=== PATIENT | female | born 1955 | race Caucasian/White ===

== ENCOUNTER → 2016-12-12 | Outpatient (CLI) | payer BC ==
--- NOTE | 2016-12-12 14:21 | US ---
EXAMINATION TYPE: US venous doppler duplex LE LT DATE OF EXAM: 12/12/2016 1:28 PM COMPARISON: NONE CLINICAL HISTORY: 61-year-old female I89.0 Lymphedema, not elsewhere classified. Left leg pain, patie nt on Plavix. Patient states having a DVT at age 17 during in left groin SIDE PERFORMED: Left TECHNIQUE: The lower extremity deep venous system is examined utilizing real time linear array sonog macie with graded compression, doppler sonography and color-flow sonography. FINDINGS: VESSELS IMAGED: External Iliac Vein (EIV) Common Femoral Vein Deep Femoral Vein Greater Saphenous Vein * Femoral Vein Popliteal Vein Small Saphenous Vein * Proximal Calf Veins (* superficial vessels) Left Leg: Appears negative for DVT IMPRESSION: No evidence for DVT within the left lower extremity imaged from the groin to the upper calf.
== END | disposition home or self-care (01) ==
LOC: RADUSWWP 12:28
PROVIDERS: ATTEND Family Medicine
DX: I89.0 Lymphedema, not elsewhere classified (principal)

== ENCOUNTER → 2019-07-14 | Outpatient (CLI) | payer MEDICARE, BC ==
[2019-07-14 14:42] LABS: Anisocytosis Slight; Basophils % (A) 0 %; Eosinophils # (A) 0.3 k/uL (0-0.7); Eosinophils % (A) 4 %; HCT 31.9 % (34.0-46.0); HGB 10.1 gm/dL (11.4-16.0); Hypochromasia Moderate; Lymphocytes # (A) 1.6 k/uL (1.0-4.8); Lymphocytes % (A) 23 %; MCH 26.8 pg (25.0-35.0); MCHC 31.7 g/dL (31.0-37.0); MCV 84.3 fL (80.0-100.0); Mean Platelet Volume 8.3; Monocytes # (A) 0.3 k/uL (0-1.0); Monocytes % (A) 5 %; Neutrophils # (A) 4.6 k/uL (1.3-7.7); Neutrophils % (A) 66 %; Platelet Count 195 k/uL (150-450); RBC 3.78 m/uL (3.80-5.40); RDW 16.2 % (11.5-15.5); WBC 6.9 k/uL (3.8-10.6)
[2019-07-14 14:44] LABS: Appearance,Urine Clear (Clear); Bilirubin,Urine Negative (Negative); Blood,Urine Negative (Negative); Color,Urine Light Yellow; Glucose,Urine (UA) Negative (Negative); Ketones,Urine Negative (Negative); Leukocyte Esterase,Urine Negative (Negative); Nitrite,Urine Negative (Negative); PH, Urine 6.5 (5.0-8.0); Protein,Urine Negative (Negative); Specific Gravity,Urine 1.004 (1.001-1.035); Urobilinogen,Urine <2.0 mg/dL (<2.0)
[2019-07-14 15:52] LABS: Erythrocyte Sedimentation Rate 48 mm/hr (0-20)
[2019-07-14 18:54] LABS: Albumin 4.2 g/dL (3.80-4.90); Albumin/Globulin Ratio 1.56 (1.60-3.17); Anion Gap 3.6 mmol/L (4.00-12.00); Calcium 9.1 mg/dL (8.7-10.3); Carbon Dioxide 32.4 mmol/L (21.6-31.8); Chol/HDL Ratio 3.47; Globulin 2.7 g/dL (1.6-3.3); LDL Cholesterol,Calculated 142.8 mg/dL (0.0-131.0); Non-African American GFR(CKD) 52.6 (60.0-200.0); Potassium 4.9 mmol/L (3.5-5.5); Total Bilirubin 0.2 mg/dL (0.2-1.2); Total Protein 6.9 g/dL (6.2-8.2); VLDL Calculation 42.2 mg/dL (5.00-40.00)
[2019-07-14 19:10] LABS: T4, Free (Free Thyroxine) 0.7 ng/dL (0.80-1.80)
== END | disposition home or self-care (01) ==
LOC: LABWHC1 13:50
PROVIDERS: ATTEND Family Medicine
DX: I10 Essential (primary) hypertension (principal); E78.2 Mixed hyperlipidemia; Z51.81 Encounter for therapeutic drug level monitoring
CPT/HCPCS: 36415; 80053; 80061; 81003; 82550; 84439; 84443; 85025; 85652

== ENCOUNTER → 2019-07-14 | Outpatient (CLI) | payer MEDICARE, BC ==
[2019-07-14 12:32] VITALS: BP 134/79; PULSE 68; RESP 16
--- NOTE | 2019-07-16 13:19 | P.PAINCN ---
History of Present Illness - Reason for Consult Consult date: 07/14/19 - History of Present Illness This is a 64-year-old female patient referred by Dr. Lopez with a chief complaint of chronic pain in bilateral lower back, left greater than right, radiating to bilateral anterior legs to just below knees and occasionally to foot on the left side. Pain is worse in low back compared to legs. Pain is rated as 7/10, worse with walking and standing and better with sitting, laying down. She denies numbness and tingling in lower extremities. She does endorse subjective left leg weakness. Her pain in her left leg is also related to left lower extremity lymphedema. She currently takes Percocet for pain control, prescribed by her primary care physician. She denies side effects from medications, and states that the medications are helping her function. She does note that over the last couple of days, she has been in extreme pain and has been unable to walk. She presents in a wheelchair today. Of note, she has a complicated medical history including hypertension, coronary artery disease with cardiac stents currently on Plavix, diabetes, lymphedema left lower extremity, factor V Leiden deficiency and history of DVTs, Charcot syndrome of left foot. She moved from [place] 6 months ago. She underwent some pain procedures in [place], possibly a lumbar epidural steroid injections with benefit, and SI joint injections with no significant benefit. Patient denies bowel/bladder incontinence, or any other signs or symptoms of cauda equina syndrome. There are no signs of acute intoxication, and no indications of medication diversion or overuse. In addition to above, 13-point review of systems is also negative for chest pain, shortness of breath, changes in vision, changes in hearing, new onset weakness, abdominal pain, diarrhea, extreme fatigue, malaise, fever, skin changes, homicidal or suicidal ideation, or bowel or bladder incontinence. Past Medical History Past Medical History: Blood Disorder, Diabetes Mellitus, Deep Vein Thrombosis (DVT), Hypertension, Myocardial Infarction (NE), Osteoarthritis (OA), Thyroid Disorder Additional Past Medical History / Comment(s): hand tremors, NE x4, cold sx., DVT left leg-first one @age of 17, has had them w/all subsequent surgeries, lymphedema left leg, charcot syndrome left foot, bulging discs, "leaking disc", Factor 5 Leiden Last Myocardial Infarction Date:: 2011 History of Any Multi-Drug Resistant Organisms: None Reported Past Surgical History: Cholecystectomy, Heart Catheterization With Stent, Hernia Repair, Hysterectomy Additional Past Surgical History / Comment(s): salpingectomy, oophorectomy separately from hyst., prior epidural procedures, left foot surg. Bilateral cataract surgery Past Anesthesia/Blood Transfusion Reactions: No Reported Reaction Date of Last Stent Placement:: 2011 Past Psychological History: Anxiety, Depression Smoking Status: Former smoker Past Alcohol Use History: None Reported Additional Past Alcohol Use History / Comment(s): quit smoking 2011, smoked 40 yrs. 1ppd Past Drug Use History: None Reported Medications and Allergies Home Medications Medication Instructions Recorded Confirmed Type ALPRAZolam [Xanax] 2 mg PO TID 07/07/19 07/14/19 History ARIPiprazole [Abilify] 5 mg PO DAILY 07/07/19 07/14/19 History Clopidogrel [Plavix] 75 mg PO DAILY 07/07/19 07/14/19 History DULoxetine HCL [Cymbalta] 60 mg PO BID 07/07/19 07/14/19 History Furosemide [Lasix] 40 mg PO DAILY 07/07/19 07/14/19 History INSULIN LISPRO (HumaLOG) [HumaLOG] See Protocol SQ ACHS 07/07/19 07/14/19 History Insulin Glargine [Lantus] 44 unit SQ HS 07/07/19 07/14/19 History Insulin Glargine [Lantus] 50 unit SQ QAM 07/07/19 07/14/19 History Levocetirizine Dihydrochloride 5 mg PO HS 07/07/19 07/14/19 History [Xyzal] Levothyroxine Sodium [Synthroid] 200 mcg PO DAILY 07/07/19 07/14/19 History Lisinopril [Zestril] 5 mg PO DAILY 07/07/19 07/14/19 History Metoprolol Tartrate [Lopressor] 25 mg PO BID 07/07/19 07/14/19 History Montelukast [Singulair] 10 mg PO DAILY 07/07/19 07/14/19 History Nitroglycerin Sl Tabs [Nitrostat] 0.4 mg SUBLINGUAL Q5M PRN 07/07/19 07/14/19 History Potassium Chloride ER [K-Dur 10] 10 meq PO DAILY 07/07/19 07/14/19 History Primidone [Mysoline] 50 mg PO TID 07/07/19 07/14/19 History oxyCODONE-APAP 10-325MG [Percocet 1 tab PO TID 07/07/19 07/14/19 History 10-325 mg] traZODone HCL [Desyrel] 200 mg PO HS 07/07/19 07/14/19 History Allergies Allergy/AdvReac Type Severity Reaction Status Date / Time azithromycin Allergy Unknown Verified 07/07/19 14:26 Iodinated Contrast Media Allergy Rash/Hives Verified 07/07/19 14:26 naproxen [From Naprosyn] AdvReac Nausea & Verified 07/07/19 14:26 Vomiting Physical Exam Physical exam: Vital Signs: Reviewed in EMR GENERAL: obese, seated in wheelchair, in no acute distress PSYCH: Mood and affect is appropriate. Awake, alert, and oriented SKIN: Skin color, texture, turgor normal, no rashes or lesions HEENT: Normocephalic, atraumatic. EOM intact CV: Bilateral pedal edema, 1+ pitting on the right side, nonpitting on the left side RESP: Respirations are unlabored, no audible wheezing GI: Abdomen non-distended MUSCULOSKELETAL: lower extremity strength is 4/5 throughout left side, 5/5 on the right. No atrophy or tone abnormalities are noted. Significant lymphedema noted in left lower extremity. Skin is dry and scaly on left lower extremity. Lumbar spine: Straight leg raising in the sitting position is positive bilaterally for radicular pain. Tenderness to palpation over the lumbar spine and paraspinous muscles. NEUR: Cranial nerves are grossly intact. Results Results: Imaging: MRI lumbar spine done at [facility] on 07/01/2019 shows moderate central canal stenosis and mild bilateral neuroforaminal stenosis at L4-5. At L5-S1 there is left greater than right facet hypertrophy and mild left-sided neuroforaminal narrowing. Assessment and Plan Assessment: Assessment: 1. Lumbar radiculopathy 2. Lumbar spondylosis 3. Lumbar degenerative disc disease 4. obesity 5. Chronic use of high-risk medications including opioids Plan: Plan: 1. Explanation: We discussed performing an epidural steroid injection at length. Of note, patient is on Plavix and this would have to be held for 5-7 days before the procedure, with consultation with her primary care physician and cook helper pastry. She has not yet seen a cook helper pastry in [place], and is scheduled to see Dr. Ontiveros soon. 2. Procedures: We will schedule L4-5 lumbar epidural steroid injection, left paramedian approach. Patient has had significant benefit from prior lumbar epidural steroid injections done over 6 months ago. Of note, her Plavix will have to be held for this procedure 3. Consultations: None 4. Investigations: MRI lumbar spine reviewed 5. Medications: Managed by PCP, would not recommend any changes Disposition: For above-mentioned procedure after cardiology clearance PQRS Measure Charge Sheet Measure #130: Documentation of Current Meds in Medical Chart: Patient's medic ations documented in chart Measure #226: Tobacco Use: Screen & Cessation Intervention: Pt not a tobacco user Measure #47: Advance Care Plan: Advance care planning discussed & documented, pt chose/unable to give Measure #412: Opioid Treatment Agreement: No documentation of signed opioid treatment agreement Measure #317: Preventitive Care & Scrn High Bld Press & F/U: Normal blood pressure, f/u not required Measure #128: Body Mass Index (BMI) Screening & Follow-up: BMI documented ABOVE normal parameters - f/u documented Measure #131: Pain Assessment & Follow-up: Pain positive & plan documented, Follow-up scheduled Measure #431: Unhealthy Alcohol Use Preventative Care & Scrn: Patient not identified as an unhealthy alcohol user PQRS Narrative: Smoking Status Former smoker Blood Pressure 134/79 Pain Intensity [Lower Back] 7 Scale Used Numeric (1 - 10) Hx Alcohol Use (MH) No Home Medications: Ambulatory Orders ALPRAZolam [Xanax] 2 mg PO TID 07/07/19 ARIPiprazole [Abilify] 5 mg PO DAILY 07/07/19 Clopidogrel [Plavix] 75 mg PO DAILY 07/07/19 DULoxetine HCL [Cymbalta] 60 mg PO BID 07/07/19 Furosemide [Lasix] 40 mg PO DAILY 07/07/19 INSULIN LISPRO (HumaLOG) [HumaLOG] See Protocol SQ ACHS 07/07/19 Insulin Glargine [Lantus] 44 unit SQ HS 07/07/19 Insulin Glargine [Lantus] 50 unit SQ QAM 07/07/19 Levocetirizine Dihydrochloride [Xyzal] 5 mg PO HS 07/07/19 Levothyroxine Sodium [Synthroid] 200 mcg PO DAILY 07/07/19 Lisinopril [Zestril] 5 mg PO DAILY 07/07/19 Metoprolol Tartrate [Lopressor] 25 mg PO BID 07/07/19 Montelukast [Singulair] 10 mg PO DAILY 07/07/19 Nitroglycerin Sl Tabs [Nitrostat] 0.4 mg SUBLINGUAL Q5M PRN 07/07/19 Potassium Chloride ER [K-Dur 10] 10 meq PO DAILY 07/07/19 Primidone [Mysoline] 50 mg PO TID 07/07/19 oxyCODONE-APAP 10-325MG [Percocet 10-325 mg] 1 tab PO TID 07/07/19 traZODone HCL [Desyrel] 200 mg PO HS 07/07/19
== END | disposition home or self-care (01) ==
LOC: PNWHC3 11:27
PROVIDERS: ATTEND Anesthesiology
DX: M51.16 Intervertebral disc disorders with radiculopathy, lumbar region (principal); M47.26 Other spondylosis with radiculopathy, lumbar region; E66.9 Obesity, unspecified; E11.9 Type 2 diabetes mellitus without complications; I10 Essential (primary) hypertension; M19.90 Unspecified osteoarthritis, unspecified site; Z68.33 Body mass index [BMI] 33.0-33.9, adult; Z87.891 Personal history of nicotine dependence; Z79.891 Long term (current) use of opiate analgesic; Z79.02 Long term (current) use of antithrombotics/antiplatelets; Z79.4 Long term (current) use of insulin; Z79.890 Hormone replacement therapy; Z79.899 Other long term (current) drug therapy; Z88.1 Allergy status to other antibiotic agents; Z88.6 Allergy status to analgesic agent; Z91.041 Radiographic dye allergy status
CPT/HCPCS: 99211

== ENCOUNTER → 2019-07-17 | Outpatient (CLI) | payer MEDICARE, BC ==
--- NOTE | 2019-07-17 15:27 | XR ---
EXAMINATION TYPE: XR chest 2V DATE OF EXAM: 07/17/2019 COMPARISON: Prior chest x-ray 05/12/2013 HISTORY: Edema, congestive heart failure TECHNIQUE: Frontal and lateral views of the chest are obtained. FINDINGS: The heart is enlarged. Central vascularity is prominent. No evident airspace disease, pneu mothorax, or pleural effusion. Bones are unchanged. IMPRESSION: Cardiomegaly with prominent central vascularity as described, no overt failure.
== END | disposition home or self-care (01) ==
LOC: RADXRMAIN 12:25
PROVIDERS: ATTEND Internal Medicine Cardiovascular Disease
DX: I51.7 Cardiomegaly (principal); I50.9 Heart failure, unspecified; R60.9 Edema, unspecified; R06.02 Shortness of breath
CPT/HCPCS: 36415; 71046; 83880

== ENCOUNTER 2019-07-24 08:12 | Day surgery (SDC) | payer MEDICARE, BC ==
[2019-07-23 10:02] VITALS: BMI 43.2
[~2019-07-24 08:12] MED LIST: LACTATED RINGERS 1,000 ML IV SCH
[2019-07-24 08:36] VITALS: TEMP 97.8
[2019-07-24 08:49] LABS: Glucose,Whole Blood 163 mg/dL (75-99)
--- NOTE | 2019-07-24 09:21 | P.PCN ---
Date of Procedure: 07/24/19 Procedure(s) Performed: PREOPERATIVE DIAGNOSIS: 1- Lumbar radiculopathy, Lumbar Degenerative Disc Diseases 2-Lumbar spondylosis with Facet arthropathy without myelopathy POSTOPERATIVE DIAGNOSIS: 1-Lumber Degenerative Disc Diseases 2-Lumbar spondylosis with Facet arthropathy without myelopathy PROCEDURE 1. Lumbar epidural steroid injection under fluoroscopic guidance at the L4-5 level using a left paramedian approach ANESTHESIA: Local with 1% lidocaine 3 ml, no IV sedation was used Fluoroscopy was used for the procedure and images were saved in the radiology portion of the chart. EBL: Minimal PROCEDURE INDICATION: The patient with low back pain and radiculitis symptoms unresponsive to conservative treatment. Fluoroscopy was used to optimize visualization of the needle placement and to maximize safety. PROCEDURE DESCRIPTION / TECHNIQUE: The patient was seen and identified in the preoperative area. Risks, benefits, complications including but not limited to infections ,bleeding ,allergic reaction to the medications ,nerve damage and incomplete pain relief , and alternatives were discussed with the patient. The patient agreed to proceed with the procedure and signed the consent. IV was started, and vital signs were stable. Patient was taken to the OR and time out was completed. The patient was placed in the prone position on procedure table and a pillow was placed under the abdomen to reduce lumbar lordosis. The lumbosacral area was prepped and draped in the usual sterile fashion. Vitals were closely monitored during the procedure. Using anterior-posterior fluoroscopy, the L4-5 interlaminar space was identified and the skin over this site was marked and then infiltrated with 1% lidocaine subcutaneously. Subsequently, an 18-gauge 5" Tuohy epidural needle was inserted and advanced toward the epidural space using the loss of resistance technique and guided by AP and lateral/ oblique fluoroscopy. TThen, after negative aspiration for blood and CSF and in the absence of paresthesias, a 5 ml mixture containing 10 mg of dexamethasone , 3 ml of preservative free Normal Saline, and 1 ml of preservative free lidocaine 1% solution was injected. Needle was withdrawn intact, skin was cleansed, and bandages were applied. of note, contrast was not used for the procedure as the patient is ALLERGIC to contrast dye. COMPLICATIONS: None DISPOSITION / PLANS: The patient was placed in a supine position and transferred to the recovery area in a stable condition for observation. There was no evidence of lower extremity motor or sensory deficit after the procedure. Patient was discharged from the recovery room after meeting discharge criteria. Home discharge instructions were given to the patient by the staff. The patient will schedule a repeat procedure in 4 weeks.
[2019-07-24 09:29] VITALS: RESP 16
[2019-07-24 09:40] VITALS: BP 130/86; PULSE 72
--- NOTE | 2019-07-24 09:50 | FL ---
EXAMINATION TYPE: FL guided pain mgmt statistic DATE OF EXAM: 07/24/2019 CLINICAL HISTORY: Low back pain. TECHNIQUE: Fluoroscopy. COMPARISON: None. FINDINGS: Fluoroscopic guidance was provided during pain relief procedure performed by Dr. Xiao . A total of 3 seconds of fluoroscopic time was utilized during the procedure and two spot images are acq uired. Images acquired shows needle localization at posterior L4-L5 level. IMPRESSION: As Above.
== END 2019-07-24 09:50 | disposition home or self-care (01) ==
LOC: ORPAIN 08:12
PROVIDERS: ATTEND Anesthesiology
DX: G89.29 Other chronic pain (principal); M51.16 Intervertebral disc disorders with radiculopathy, lumbar region; M47.26 Other spondylosis with radiculopathy, lumbar region; Z91.041 Radiographic dye allergy status; Z88.1 Allergy status to other antibiotic agents; Z88.6 Allergy status to analgesic agent; Z79.02 Long term (current) use of antithrombotics/antiplatelets; E11.9 Type 2 diabetes mellitus without complications; Z86.718 Personal history of other venous thrombosis and embolism; I10 Essential (primary) hypertension; I25.2 Old myocardial infarction; M19.90 Unspecified osteoarthritis, unspecified site; F41.9 Anxiety disorder, unspecified; F32.9 Major depressive disorder, single episode, unspecified; E66.9 Obesity, unspecified; E07.9 Disorder of thyroid, unspecified; D68.51 Activated protein C resistance; Z90.49 Acquired absence of other specified parts of digestive tract; Z95.5 Presence of coronary angioplasty implant and graft; Z90.710 Acquired absence of both cervix and uterus; Z98.41 Cataract extraction status, right eye; Z98.42 Cataract extraction status, left eye; Z90.79 Acquired absence of other genital organ(s); Z79.4 Long term (current) use of insulin; Z87.891 Personal history of nicotine dependence; Z79.890 Hormone replacement therapy; Z79.899 Other long term (current) drug therapy; Z79.891 Long term (current) use of opiate analgesic; Z68.41 Body mass index [BMI] 40.0-44.9, adult
CPT/HCPCS: 62323; J1100

== ENCOUNTER 2019-08-19 07:24 | Day surgery (SDC) | payer MEDICARE, BC ==
[2019-08-14 15:25] VITALS: BMI 39.9
[~2019-08-19 07:24] MED LIST changes: +IOPAMIDOL M200 10 ML VIAL ONE; +MIDAZOLAM 2 MG/2 ML VIAL ONE; +fentaNYL (PF) 50 MCG/ML 2 ML AMP ONE; +methylPREDNISolone ACETATE 40 MG/ML 1 ML VIAL ONE
[2019-08-19 07:54] VITALS: TEMP 98.7
[2019-08-19] MEDS ORDERED: LIDOCAINE 1% 20 ML VIAL (10MG/ML) FOR IV START INTRADERMA ONE (08:10)
[2019-08-19 08:17] LABS: Glucose,Whole Blood 106 mg/dL (75-99)
--- NOTE | 2019-08-19 08:35 | P.PCN ---
Date of Procedure: 08/19/19 Procedure(s) Performed: PREOPERATIVE DIAGNOSIS: 1- Lumbar Degenerative Disc Diseases 2-Lumbar spondylosis with Facet arthropathy without myelopathy. 3-lumbar radiculopathy POSTOPERATIVE DIAGNOSIS: 1-Lumber Degenerative Disc Diseases 2-Lumbar spondylosis with Facet arthropathy without myelopathy. 3-lumbar radiculopathy PROCEDURE 1. Lumbar epidural steroid injection under fluoroscopic guidance at the L4-5 level.(Left paramedian approach ) (Fluoroscopy imaging was available in radiology department) ANESTHESIA: Local with 1% lidocaine 3 ml and , moderate sedation with intravenous Versed 1 mg ,and fentanyle 50 Mcg EBL: Minimal PROCEDURE INDICATION: The patient with low back pain and radiculitis symptoms unresponsive to conservative treatment. Fluoroscopy was used to optimize visualization of the needle placement and to maximize safety. PROCEDURE DESCRIPTION / TECHNIQUE: The patient was seen and identified in the preoperative area. Risks, benefits, complications including but not limited to infections ,bleeding ,allergic reaction to the medications ,nerve damage and not complete pain releife , and alternatives were discussed with the patient. The patient agreed to proceed with the procedure and signed the consent. IV was started, and vital signs were stable. Patient was taken to the OR and time out was completed. The patient was placed in the prone position on procedure table and a pillow was placed under the abdomen to reduce lumbar lordosis. The lumbosacral area was prepped and draped in the usual sterile fashion.ere closely monitored during the procedure. Conscious sedation was used during the procedure to decrease patients anxiety. Vital signs was monitered during the entire procedure. Using anterior-posterior fluoroscopy, the L4-5 interlaminar space was identified and the skin over this site was marked and then infiltrated with 1% lidocaine subcutaneously. Subsequently, a 18-gauge 6 inhes long Tuohy epidural needle was inserted and advanced toward the epidural space using the ``Loss of resistance technique and guided by AP and lateral fluoroscopy, after negative aspiration for blood and CSF and in the absence of paresthesias. Again after negative aspiration, a 6 ml mixture containing 40 mg of Depo-medrol , and 2 ml of preservative free Normal Saline, and 2 ml of preservative free lidocaine 1% solution was injected . Needle was withdrawn intact, skin was cleansed, and bandages were applied. COMPLICATIONS: None DISPOSITION / PLANS: The patient was placed in a supine position and transferred to the recovery area in a stable condition for observation. There was no evidence of lower extremity motor or sensory deficit after the procedure. Patient was discharged from the recovery room after meeting discharge criteria. Home discharge instructions were given to the patient by the staff. The patient was reexamined prior to discharge. The patient will schedule a follow up in the clinic in 2-4 weeks note= Isovue was not injected ,because patient had ALLERGY to IVP dye.
[2019-08-19] MEDS ORDERED: IV FLUID CONTINUATION 850 ML IV ONE (08:45)
[2019-08-19 08:59] VITALS: RESP 18
[2019-08-19 09:00] VITALS: BP 108/69; PULSE 63
--- NOTE | 2019-08-19 11:26 | FL ---
Fluoroscopy HISTORY: Pain 5 seconds fluoroscopy time supplied to the referring clinician. 1 intraoperative C-arm images docume nt the procedure. See dictated report from anesthesia.
== END 2019-08-19 08:45 | disposition home or self-care (01) ==
LOC: ORPAIN 07:24
PROVIDERS: ATTEND Specialist
DX: M51.16 Intervertebral disc disorders with radiculopathy, lumbar region (principal); M47.26 Other spondylosis with radiculopathy, lumbar region; Z88.1 Allergy status to other antibiotic agents; Z91.041 Radiographic dye allergy status; Z91.048 Other nonmedicinal substance allergy status; Z88.6 Allergy status to analgesic agent
CPT/HCPCS: 62323; J2250; J1030; J3010; Q9966

== ENCOUNTER → 2019-09-03 | Outpatient (CLI) | payer MEDICARE, BC ==
[2019-09-03 12:01] VITALS: BP 110/68; PULSE 60; RESP 16
--- NOTE | 2019-09-03 21:03 | P.PAINPG ---
Subjective Progress Note Date: 09/03/19 This is a follow-up visit for this 64 years old female, with a chronic history of severe low back pain she is diagnosed with lumbar spondylosis with lumbar facet arthropathy and lumbar degenerative disc disease, recently we have done lumbar epidural steroid injections 2, patient reported that she had minimal benefit from the epidural steroid injection, she continued to have severe low back pain which is increased with any activity even movement or walking exacerbates her pain, she is able to ambulate a few steps but she has to use a wheelchair when she has to walk more than a few minutes, she denies any fever or night sweats she denies any change in the bowel movements or urination, she continued to use Percocet 10/325 when necessary as prescribed by her primary care Objective - Vital Signs Vital signs: Vital Signs Temp Pulse 60 09/03/19 11:49 Resp 16 09/03/19 11:49 BP 110/68 09/03/19 11:49 Pulse Ox 97 09/03/19 11:49 - Exam Physical Examinations : -Constitutiona : Cooperative , not in acute distress . -HEENT : nech : supple , no Lymphadenopathy , normal thyroid size . : eyes : no ptosis , no icterus, no photophobia . - neurologic : Cranial nerve II to XII intact , no focal neurological deffecit . -psychatric : alert , oriented X 3 , appropriate affect , intact judgment and insight . -Lymphatic : no Lymphadenopathy . - musculoskeltal : Lumber spine moter stegnth lower extremities ,thigh and legs 4/5 Right side , 5/5 Left side deep tendon reflexes : normal Knee Jerk , normal ankle Jerk lumber facet Loading Test =positive Right , positive Left Range of motion of the lumbar spine Flexion 30 degrees, extension 10 degrees strait leg raising test = positive at 30 degree Fabere test= positive Right , and positive LT . Sever tenderness over the Sacroiliac joint on the Right , and Left sides Assessment and Plan Plan: Assessment and plan= chronic low back pain secondary to lumbar degenerative disc disease , lumbar spondylosis with lumbar facet arthropathy . Patient had limited benefit from lumbar epidural steroid injections 2, She will be good candidate to have diagnostic medial branch block lumbar area L3, L4, L5, to target the facet joint at L4-L5 and L5-S1 Patient will continue to use Percocet 10/325 when necessary as prescribed by her primary care , Time with Patient: Less than 30 PQRS Measure Charge Sheet Measure #130: Documentation of Current Meds in Medical Chart: Patient's medications documented in chart Measure #226: Tobacco Use: Screen & Cessation Intervention: Pt not a tobacco user Measure #111: Pneumonia Vaccination: Pneumococcal vaccine administered or previously received Measure #47: Advance Care Plan: Advance care planning discussed & documented, pt chose/unable to give Measure #412: Opioid Treatment Agreement: No documentation of signed opioid mervat atment agreement Measure #408: Opioid Therapy Follow-up Evaluation: Patient had NO f/u eval minimum every 3 months during opioid therapy Measure #317: Preventitive Care & Scrn High Bld Press & F/U: Normal blood pressure, f/u not required Measure #128: Body Mass Index (BMI) Screening & Follow-up: BMI documented ABOVE normal parameters - f/u documented Measure #131: Pain Assessment & Follow-up: Pain positive & plan documented, Follow-up scheduled Measure #431: Unhealthy Alcohol Use Preventative Care & Scrn: Patient not identified as an unhealthy alcohol user PQRS Narrative: Smoking Status Former smoker Blood Pressure 110/68 Pain Intensity [Lower Back] 8 Scale Used Numeric (1 - 10) Hx Alcohol Use (MH) No Home Medications: Ambulatory Orders ALPRAZolam [Xanax] 2 mg PO TID 07/07/19 ARIPiprazole [Abilify] 5 mg PO DAILY 07/07/19 Clopidogrel [Plavix] 75 mg PO DAILY 07/07/19 DULoxetine HCL [Cymbalta] 60 mg PO BID 07/07/19 Furosemide [Lasix] 80 mg PO DAILY 07/07/19 INSULIN LISPRO (HumaLOG) [HumaLOG] See Protocol SQ ACHS 07/07/19 Insulin Glargine [Lantus] 44 unit SQ HS 07/07/19 Insulin Glargine [Lantus] 50 unit SQ QAM 07/07/19 Levocetirizine Dihydrochloride [Xyzal] 5 mg PO HS 07/07/19 Levothyroxine Sodium [Synthroid] 200 mcg PO DAILY 07/07/19 Lisinopril [Zestril] 5 mg PO DAILY 07/07/19 Metoprolol Tartrate [Lopressor] 25 mg PO BID 07/07/19 Montelukast [Singulair] 10 mg PO DAILY 07/07/19 Nitroglycerin Sl Tabs [Nitrostat] 0.4 mg SUBLINGUAL Q5M PRN 07/07/19 Primidone [Mysoline] 50 mg PO TID 07/07/19 oxyCODONE-APAP 10-325MG [Percocet 10-325 mg] 1 tab PO TID PRN 07/07/19 traZODone HCL [Desyrel] 200 mg PO HS 07/07/19 Spironolactone [Aldactone] 12.5 mg PO DAILY 07/23/19 Triamcinolone 0.1% Cream [Kenalog 0.1% Cream] 1 applicatio TOPICAL BID 08/14/19 Controlled Substance Measures - Controlled Substance Measures Is patient prescribed a controlled substance at discharge?: No
== END | disposition home or self-care (01) ==
LOC: PNWHC3 11:38
PROVIDERS: ATTEND Specialist
DX: G89.29 Other chronic pain (principal); M51.36 Other intervertebral disc degeneration, lumbar region; M47.816 Spondylosis without myelopathy or radiculopathy, lumbar region; M46.96 Unspecified inflammatory spondylopathy, lumbar region; Z87.891 Personal history of nicotine dependence; Z79.899 Other long term (current) drug therapy
CPT/HCPCS: 99211

== ENCOUNTER 2019-09-16 07:27 | Day surgery (SDC) | payer MEDICARE, BC ==
[2019-09-15 11:20] VITALS: BMI 25.7
[~2019-09-16 07:27] MED LIST changes: +BUPIVACAINE (PF) 0.5% 30 ML VIAL ONE; -IOPAMIDOL M200 10 ML VIAL ONE; -LACTATED RINGERS 1,000 ML IV SCH; -methylPREDNISolone ACETATE 40 MG/ML 1 ML VIAL ONE
[2019-09-16 07:40] VITALS: TEMP 98.5
[2019-09-16] MEDS ORDERED: LACTATED RINGERS 1,000 ML IV ONE (07:54)
[2019-09-16 07:55] LABS: Glucose,Whole Blood 240 mg/dL (75-99)
[2019-09-16] MEDS ORDERED: LIDOCAINE 1% 20 ML VIAL (10MG/ML) FOR IV START INTRADERMA ONE (07:55)
[2019-09-16 08:58] VITALS: RESP 17
--- NOTE | 2019-09-16 09:01 | P.PCN ---
Date of Procedure: 09/16/19 Surgeon: Afshan Leavitt Pathology: none sent Condition: stable Disposition: PACU Description of Procedure: PREOPERATIVE DIAGNOSIS : 1- Lumbar spondylosis with Facet Arthropathy without myelopathy . 2- Lumber degenerative disc disease POSTOPERATIVE DIAGNOSIS: 1- Lumbar spondylosis with Facet Arthropathy without myelopathy . 2- Lumber degenerative disc disease PROCEDURE: Diagnostic bilateral L3 -4 , L4 -5 , and L5-S1 medial branch block under fluoroscopy ANESTHESIA: Local with 1% lidocaine; IV moderate conscious sedation with Versed 2 mg . EBL: Negligible COMPLICATION: None. PROCEDURE INDICATION: Chronic low back pain secondary to Facet arthropathy unresponsive to conservative treatment. PROCEDURE DESCRIPTION: the patient was seen and identified in the preop holding area , risks and benefits and possible complications of the procedure and alternatives were discussed with the patient, and the patient agreed to proceed with the procedure and signed the consent. IV was started and vital signs monitored during the procedure and fluoroscopy was used to maximize the benefit and accuracy of the needle placement, sedation was given to decrease patient anxiety, patient was taken to the procedure room and placed in prone position vital signs monitored. The patient was brought into the procedure room and placed in prone position. Skin was prepped with Chloraprep and draped in a sterile manner. Lidocaine 1% was used to numb the skin up at the target points that were chosen as follows: at the L5-S1 level which corresponds to the dorsal ramus of L5 the target points were at the superior medial aspect of the sacral ala on each side of the spine on the AP view of fluoroscopy, and for the L3 and L4 medial branches the target points were the connection between the transverse process and the superior to go process of L4 and L5 respectively on the oblique views of fluoroscopy. I used 22-gauge 5 inch Quincke spinal needles for this procedure and after contacting bone at the target points mentioned above I injected 1 mL of Ropivacaine 0.5% PF . Patient tolerated procedure well. At the end of the procedure the needles removed and a bandage applied after the skin was cleaned the cleaning solution. patient was then taken to the recovery room in stable condition and monitored in the recovery room for 20-30 minutes and discharged home in stable condition after discharge criteria met .
[2019-09-16 09:05] VITALS: BP 137/80; PULSE 83
[2019-09-16 09:18] LABS: Glucose,Whole Blood 221 mg/dL (75-99)
[2019-09-16] MEDS ORDERED: IV FLUID CONTINUATION 800 ML IV ONE (09:20)
--- NOTE | 2019-09-16 10:07 | FL ---
EXAMINATION TYPE: FL guided pain mgmt statistic DATE OF EXAM: 09/16/2019 CLINICAL HISTORY: Low back pain. TECHNIQUE: Fluoroscopy. COMPARISON: None. FINDINGS: Fluoroscopic guidance was provided during pain relief procedure performed by Dr. Leavitt . A total of 8 seconds of fluoroscopic time was utilized during the procedure and 4 spot images are a cquired. Images acquired shows needle localization at multiple levels of the lumbar spine. IMPRESSION: As Above.
== END 2019-09-16 09:25 | disposition home or self-care (01) ==
LOC: ORPAIN 07:27
PROVIDERS: ATTEND Anesthesiology
DX: M47.816 Spondylosis without myelopathy or radiculopathy, lumbar region (principal); M51.36 Other intervertebral disc degeneration, lumbar region; E11.9 Type 2 diabetes mellitus without complications; I10 Essential (primary) hypertension; I25.10 Atherosclerotic heart disease of native coronary artery without angina pectoris; E66.01 Morbid (severe) obesity due to excess calories; Z68.41 Body mass index [BMI] 40.0-44.9, adult; Z91.041 Radiographic dye allergy status; Z88.1 Allergy status to other antibiotic agents; Z88.6 Allergy status to analgesic agent; Z91.048 Other nonmedicinal substance allergy status; Z79.4 Long term (current) use of insulin; Z79.02 Long term (current) use of antithrombotics/antiplatelets; Z95.5 Presence of coronary angioplasty implant and graft
CPT/HCPCS: 64493; 64494; 64495; J2250; J3010; 99152

== ENCOUNTER 2019-09-30 07:18 | Day surgery (SDC) | payer MEDICARE, BC ==
[2019-09-26 10:36] VITALS: BMI 37.1
[2019-09-30 07:40] VITALS: TEMP 98.5
[2019-09-30 07:48] LABS: Glucose,Whole Blood 143 mg/dL (75-99)
[2019-09-30] MEDS ORDERED: LACTATED RINGERS 1,000 ML IV ONE (07:48)
[2019-09-30] MEDS ORDERED: LIDOCAINE 1% (10MG/ML) FOR IV START INTRADERMA ONE (07:48)
[2019-09-30] MEDS ORDERED: BUPIVACAINE (PF) 0.5% 30 ML VIAL ONE (07:54)
[2019-09-30] MEDS ORDERED: fentaNYL (PF) 50 MCG/ML 2 ML AMP ONE (07:54)
[2019-09-30] MEDS ORDERED: TRIAMCINOLONE ACETONIDE 40 MG/ML 1 ML VIAL ONE (07:54)
[2019-09-30] MEDS ORDERED: MIDAZOLAM 2 MG/2 ML VIAL ONE (07:54)
[2019-09-30] MEDS ORDERED: LACTATED RINGERS 1,000 ML IV SCH (08:00)
--- NOTE | 2019-09-30 08:12 | P.PCN ---
Date of Procedure: 09/30/19 Anesthesia: MAC Pathology: none sent Condition: stable Disposition: PACU Description of Procedure: PREOPERATIVE DIAGNOSIS : 1- Lumbar spondylosis with Facet Arthropathy without myelopathy . 2- Lumber degenerative disc disease POSTOPERATIVE DIAGNOSIS: 1- Lumbar spondylosis with Facet Arthropathy without myelopathy . 2- Lumber degenerative disc disease PROCEDURE: Diagnostic bilateral L3 -4 , L4 -5 , and L5-S1 medial branch block under fluoroscopy ANESTHESIA: Local with 1% lidocaine; IV moderate conscious sedation with Versed 2 mg and fentanyl 100 mics . EBL: Negligible COMPLICATION: None. PROCEDURE INDICATION: Chronic low back pain secondary to Facet arthropathy unresponsive to conservative treatment. PROCEDURE DESCRIPTION: the patient was seen and identified in the preop holding area , risks and benefits and possible complications of the procedure and alternatives were discussed with the patient, and the patient agreed to proceed with the procedure and signed the consent. IV was started and vital signs monitored during the procedure and fluoroscopy was used to maximize the benefit and accuracy of the needle placement, sedation was given to decrease patient anxiety, patient was taken to the procedure room and placed in prone position vital signs monitored. The patient was brought into the procedure room and placed in prone position. Skin was prepped with Chloraprep and draped in a sterile manner. Lidocaine 1% was used to numb the skin up at the target points that were chosen as follows: at the L5-S1 level which corresponds to the dorsal ramus of L5 the target points were at the superior medial aspect of the sacral ala on each side of the spine on the AP view of fluoroscopy, and for the L3 and L4 medial branches the target points were the connection between the transverse process and the superior to go process of L4 and L5 respectively on the oblique views of fluoroscopy. I used 22-gauge 3-1/2 inch Quincke spinal needles for this procedure and after contacting bone at the target points mentioned above I injected 1 mL of a mixture of Kenalog 40 mg +5 MLS of Marcaine 0.5% PF . Patient tolerated procedure well. At the end of the procedure the needles removed and a bandage applied after the skin was cleaned the cleaning solution. patient was then taken to the recovery room in stable condition and monitored in the recovery room for 20-30 minutes and discharged home in stable condition after discharge criteria met . A copy of the needle placement picture was saved on the fluoroscopy machine
[2019-09-30] MEDS ORDERED: IV FLUID CONTINUATION 1,000 ML IV ONE ×2 (08:16)
--- NOTE | 2019-09-30 08:30 | FL ---
EXAMINATION TYPE: FL guided pain mgmt statistic DATE OF EXAM: 09/30/2019 FLUOROSCOPY Fluoroscopy time of 8 seconds was used during bilateral facet injections. 3 image/s document/s the p rocedure.
[2019-09-30 08:38] VITALS: BP 122/58; PULSE 60; RESP 17
== END 2019-09-30 08:56 | disposition home or self-care (01) ==
LOC: ORPAIN 07:18
PROVIDERS: ATTEND Anesthesiology
DX: G89.29 Other chronic pain (principal); M47.816 Spondylosis without myelopathy or radiculopathy, lumbar region; Z91.041 Radiographic dye allergy status; I10 Essential (primary) hypertension; I25.10 Atherosclerotic heart disease of native coronary artery without angina pectoris; E11.9 Type 2 diabetes mellitus without complications; E66.01 Morbid (severe) obesity due to excess calories; Z68.41 Body mass index [BMI] 40.0-44.9, adult; Z88.1 Allergy status to other antibiotic agents; Z91.048 Other nonmedicinal substance allergy status; Z79.02 Long term (current) use of antithrombotics/antiplatelets
CPT/HCPCS: 64493; 64494; 64495; J2250; J3301; J3010; 99152

== ENCOUNTER → 2019-10-16 | Outpatient (CLI) | payer MEDICARE, BC ==
[2019-10-16 13:29] VITALS: BP 121/58; PULSE 52; RESP 16
--- NOTE | 2019-10-16 14:53 | P.PAINPG ---
Subjective Progress Note Date: 10/16/19 This is a follow-up visit for this 64 years old female, with a chronic history of severe low back pain she is diagnosed with lumbar spondylosis with lumbar facet arthropathy and lumbar degenerative disc disease, recently we have done diagnostic medial branch block lumbar area at L3, L4, L5 bilaterally X2 she reported that her pain before the first diagnostic block was 6/10 dropped to 0/10 after the block, and the pain before the second diagnostic block was 4/10 dropped to 0/10 after the block, the pain relief from the block was for short- term only, currently she continued to have severe low back pain which is increased with any activity even movement or walking exacerbates her pain, she is able to ambulate a few steps but she has to use a wheelchair when she has to walk more than a few minutes, she denies any fever or night sweats she denies any change in the bowel movements or urination, she continued to use Percocet 10/325 when necessary as prescribed by her primary care Objective - Vital Signs Vital signs: Vital Signs Temp Pulse 52 L 10/16/19 13:23 Resp 16 10/16/19 13:23 BP 121/58 10/16/19 13:23 Pulse Ox - Exam -Constitutiona : Cooperative , not in acute distress . -HEENT : nech : supple , no Lymphadenopathy , normal thyroid size . : eyes : no ptosis , no icterus, no photophobia . - neurologic : Cranial nerve II to XII intact , no focal neurological deffecit . -psychatric : alert , oriented X 3 , appropriate affect , intact judgment and insight . -Lymphatic : no Lymphadenopathy . - musculoskeltal : Lumber spine moter stegnth lower extremities ,thigh and legs 4/5 Right side , 5/5 Left side deep tendon reflexes : normal Knee Jerk , normal ankle Jerk lumber facet Loading Test =positive Right , positive Left Range of motion of the lumbar spine Flexion 30 degrees, extension 10 degrees strait leg raising test = positive at 30 degree Fabere test= positive Right , and positive LT . Sever tenderness over the Sacroiliac joint on the Right , and Left sides Assessment and Plan Plan: chronic low back pain secondary to lumbar degenerative disc disease , lumbar spondylosis with lumbar facet arthropathy . Patient had limited benefit from lumbar epidural steroid injections 2, She HAD good result after a cluster medial branch block lumbar area L3, L4, L5, to target the facet joint at L4-L5 and L5-S1 She will be good candidate to have RFA of the medial branch with to the left side first Patient will continue to use Percocet 10/325 when necessary as prescribed by her primary car Time with Patient: Less than 30 PQRS Measure Charge Sheet Measure #130: Documentation of Current Meds in Medical Chart: Patient's medications documented in chart Measure #226: Tobacco Use: Screen & Cessation Intervention: Pt not a tobacco user Measure #111: Pneumonia Vaccination: Pneumococcal vaccine administered or previously received Measure #47: Advance Care Plan: Advance care planning discussed & documented, pt chose/unable to give Measure #412: Opioid Treatment Agreement: No documentation of signed opioid treatment agreement Measure #408: Opioid Therapy Follow-up Evaluation: Patient had NO f/u eval minimum every 3 months during opioid therapy Measure #317: Preventitive Care & Scrn High Bld Press & F/U: Normal blood pressure, f/u not required Measure #128: Body Mass Index (BMI) Screening & Follow-up: BMI documented ABOVE normal parameters - f/u documented Measure #131: Pain Assessment & Follow-up: Pain positive & plan documented, Follow-up scheduled Measure #431: Unhealthy Alcohol Use Preventative Care & Scrn: Patient not identified as an unhealthy alcohol user PQRS Narrative: Smoking Status Former smoker Blood Pressure 121/58 Pain Intensity [Back] 5 Scale Used Numeric (1 - 10) Hx Alcohol Use (MH) No Home Medications: Ambulatory Orders ALPRAZolam [Xanax] 2 mg PO TID 07/07/19 ARIPiprazole [Abilify] 5 mg PO DAILY 07/07/19 Clopidogrel [Plavix] 75 mg PO DAILY 07/07/19 DULoxetine HCL [Cymbalta] 60 mg PO BID 07/07/19 Furosemide [Lasix] 80 mg PO DAILY 07/07/19 INSULIN LISPRO (HumaLOG) [HumaLOG] See Protocol SQ ACHS 07/07/19 Insulin Glargine [Lantus] 44 unit SQ HS 07/07/19 Insulin Glargine [Lantus] 50 unit SQ QAM 07/07/19 Levocetirizine Dihydrochloride [Xyzal] 5 mg PO HS 07/07/19 Levothyroxine Sodium [Synthroid] 200 mcg PO DAILY 07/07/19 Lisinopril [Zestril] 5 mg PO DAILY 07/07/19 Metoprolol Tartrate [Lopressor] 25 mg PO BID 07/07/19 Montelukast [Singulair] 10 mg PO DAILY 07/07/19 Nitroglycerin Sl Tabs [Nitrostat] 0.4 mg SUBLINGUAL Q5M PRN 07/07/19 Primidone [Mysoline] 50 mg PO TID 07/07/19 oxyCODONE-APAP 10-325MG [Percocet 10-325 mg] 1 tab PO TID PRN 07/07/19 traZODone HCL [Desyrel] 200 mg PO HS 07/07/19 Spironolactone [Aldactone] 12.5 mg PO DAILY 07/23/19 Triamcinolone 0.1% Cream [Kenalog 0.1% Cream] 1 applicatio TOPICAL BID 08/14/19 Controlled Substance Measures - Controlled Substance Measures Is patient prescribed a controlled substance at discharge?: No
== END | disposition home or self-care (01) ==
LOC: PNWHC3 12:48
PROVIDERS: ATTEND Specialist
DX: G89.29 Other chronic pain (principal); M51.36 Other intervertebral disc degeneration, lumbar region; M47.816 Spondylosis without myelopathy or radiculopathy, lumbar region; F17.200 Nicotine dependence, unspecified, uncomplicated; Z79.02 Long term (current) use of antithrombotics/antiplatelets; Z79.891 Long term (current) use of opiate analgesic; Z79.4 Long term (current) use of insulin; Z79.890 Hormone replacement therapy; Z79.52 Long term (current) use of systemic steroids; Z79.899 Other long term (current) drug therapy
CPT/HCPCS: 99211

== ENCOUNTER → 2019-12-30 | Outpatient (CLI) | payer MEDICARE, BC | END | disposition home or self-care (01) | LOC: LABWHC1 10:59 | PROVIDERS: ATTEND Family Medicine | DX: Z11.59 Encounter for screening for other viral diseases (principal) | CPT/HCPCS: 87635 ==

== ENCOUNTER 2020-01-01 09:25 | Day surgery (SDC) | payer MEDICARE, BC ==
[2019-12-31 11:02] VITALS: BMI 40.7
[~2020-01-01 09:25] MED LIST changes: -BUPIVACAINE (PF) 0.5% 30 ML VIAL ONE; +LACTATED RINGERS 1,000 ML IV SCH; -MIDAZOLAM 2 MG/2 ML VIAL ONE; -fentaNYL (PF) 50 MCG/ML 2 ML AMP ONE
[2020-01-01 10:05] VITALS: TEMP 97.8
[2020-01-01 10:13] LABS: Glucose,Whole Blood 154 mg/dL (75-99)
[2020-01-01] MEDS ORDERED: LIDOCAINE 1% (10MG/ML) FOR IV START INTRADERMA ONE (10:13)
[2020-01-01] MEDS ORDERED: MIDAZOLAM 2 MG/2 ML VIAL IVP ONE (10:15)
[2020-01-01] MEDS ORDERED: fentaNYL (PF) 50 MCG/ML 2 ML AMP ONE (10:39)
[2020-01-01] MEDS ORDERED: MIDAZOLAM 2 MG/2 ML VIAL ONE (10:39)
[2020-01-01] MEDS ORDERED: LIDOCAINE 4% (PF) 5 ML AMP ONE (10:39)
[2020-01-01] MEDS ORDERED: IV FLUID CONTINUATION 450 ML IV ONE (11:04)
[2020-01-01 11:10] VITALS: PULSE 80; RESP 20
--- NOTE | 2020-01-01 11:11 | FL ---
EXAMINATION TYPE: FL guided pain mgmt statistic DATE OF EXAM: 01/01/2020 FLUOROSCOPY Fluoroscopy time of 10 seconds was used during lumbar radiofrequency ablation. 6 image/s document/s the procedure.
--- NOTE | 2020-01-01 11:23 | P.PCN ---
Date of Procedure: 01/01/20 Procedure(s) Performed: PREOPERATIVE DIAGNOSIS: Lumbar Spondylosis POSTOPERATIVE DIAGNOSIS: Same PROCEDURES: Radiofrequency ablation of the L3, L4, L5 medial branches with fluoroscopic guidance on the left side SURGEON: Zacarias Xiao MD. ANESTHESIA: Lidocaine 1% 5 mL, Moderate sedation with intravenous Versed and fentanyl, sedation time 16 minutes EBL: Minimal Fluoroscopy was used for the procedure and images were saved in the radiology portion of the chart. PROCEDURE INDICATION: The patient with low back pain secondary to lumbar facet arthropathy who had more than 50% relief of pain with previous diagnostic lumbar medial branch block X2. PROCEDURE DESCRIPTION / TECHNIQUE: The patient was seen and identified in the preoperative area. Risks, benefits, complications, including but not limited to risk of infection ,bleeding , allergic reactions to the medications and incomplete pain relief , and alternatives were discussed with the patient, the patient agreed to proceed with the procedure and signed the consent. IV was started. The operative site was marked. Patient was taken to the OR and time out was completed. The patient was placed in the prone position on the procedure table. The lumbar area was prepped and draped in the usual sterile fashion. . Vital signs were closely monitored during the procedure .IV sedation was used during the procedure to decrease patients anxiety. Using AP and then oblique fluoroscopy, the "eye of the Virgil dog" corresponding to the connection between the superior and transverse articular processes of the L4 and L5 as well as the sacral ala were identified, marked, and localized with 1% lidocaine. Subsequently, an 18 guage 150 mm radiofrequency cannula with a 10-mm active tip was advanced guided by fluoroscopy to the identified target at each site. Needle positioning was confirmed on AP, oblique and lateral fluoroscopy. Motor testing at 2.5 Hz was done with paraspinal muscle stimulation only, and no radicular symptoms down the legs. Then 1 mL of 4% lidocaine was injected in each site. Radiofrequency thermocoagulation at 80 degrees celsius for 90 seconds was then performed. [place] were removed. Sterile dressings were applied. COMPLICATIONS: No acute complications. DISPOSITION / PLANS: The patient was placed in a supine position and transferred to the recovery area in a stable condition for observation and was discharged from the recovery room after meeting discharge criteria. Home discharge instructions given to the patient by the staff. The patient will follow up for right-sided procedure in 2 weeks.
[2020-01-01 11:49] VITALS: BP 129/80
== END 2020-01-01 11:34 | disposition home or self-care (01) ==
LOC: ORPAIN 09:25
PROVIDERS: ATTEND Anesthesiology
DX: M47.816 Spondylosis without myelopathy or radiculopathy, lumbar region (principal); E11.9 Type 2 diabetes mellitus without complications; Z91.041 Radiographic dye allergy status; Z88.6 Allergy status to analgesic agent; Z79.02 Long term (current) use of antithrombotics/antiplatelets
CPT/HCPCS: 64635; 64636; J2001; J2250; J3010; 99152

== ENCOUNTER → 2020-01-16 | Outpatient (CLI) | payer MEDICARE, BC | END | disposition home or self-care (01) | LOC: LABWHC1 10:53 | PROVIDERS: ATTEND Family Medicine | DX: Z11.59 Encounter for screening for other viral diseases (principal) ==

== ENCOUNTER 2020-01-20 08:10 | Day surgery (SDC) | payer MEDICARE, BC ==
[2020-01-19 11:33] VITALS: BMI 40.7
[2020-01-20 08:35] VITALS: TEMP 98.4
[2020-01-20 08:38] LABS: Glucose,Whole Blood 186 mg/dL (75-99)
[2020-01-20] MEDS ORDERED: fentaNYL (PF) 50 MCG/ML 2 ML AMP ONE (08:40)
[2020-01-20] MEDS ORDERED: LIDOCAINE 4% (PF) 5 ML AMP ONE (08:40)
[2020-01-20] MEDS ORDERED: MIDAZOLAM 2 MG/2 ML VIAL ONE (08:40)
[2020-01-20] MEDS ORDERED: LACTATED RINGERS 1,000 ML IV ONE (09:13)
[2020-01-20 09:17] LABS: Glucose,Whole Blood 160 mg/dL (75-99)
[2020-01-20 09:19] VITALS: RESP 16
[2020-01-20 09:28] VITALS: BP 118/58; PULSE 68
--- NOTE | 2020-01-20 09:37 | P.PCN ---
Date of Procedure: 01/20/20 Procedure(s) Performed: PREOPERATIVE DIAGNOSIS: Lumbar Spondylosis POSTOPERATIVE DIAGNOSIS: Same PROCEDURES: Radiofrequency ablation of the L3, L4, L5 medial branches with fluoroscopic guidance on the right side for facets L4-5 and L5-S1 SURGEON: Zacarias Xiao MD. ANESTHESIA: Lidocaine 1% 5 mL, Moderate sedation with intravenous Versed and fentanyl, sedation time 23 minutes EBL: Minimal Fluoroscopy was used for the procedure and images were saved in the radiology portion of the chart. PROCEDURE INDICATION: The patient with low back pain secondary to lumbar facet arthropathy who had more than 50% relief of pain with previous diagnostic lumbar medial branch block X2. PROCEDURE DESCRIPTION / TECHNIQUE: The patient was seen and identified in the preoperative area. Risks, benefits, complications, including but not limited to risk of infection ,bleeding , allergic reactions to the medications and incomplete pain relief , and alternatives were discussed with the patient, the patient agreed to proceed with the procedure and signed the consent. IV was started. The operative site was marked. Patient was taken to the OR and time out was completed. The patient was placed in the prone position on the procedure table. The lumbar area was prepped and draped in the usual sterile fashion. . Vital signs were closely monitored during the procedure .IV sedation was used during the procedure to decrease patients anxiety. Using AP and then oblique fluoroscopy, the "eye of the Virgil dog" corresponding to the connection between the superior and transverse articular processes of the right L4 and L5 as well as the sacral ala were identified, marked, and localized with 1% lidocaine. Subsequently, an 18 guage 150 mm radiofrequency cannula with a 10-mm active tip was advanced guided by fluoroscopy to the identified target at each site. Needle positioning was confirmed on AP, oblique and lateral fluoroscopy. Motor testing at 2.5 Hz was done with paraspinal muscle stimulation only, and no radicular symptoms down the legs. Then 1 mL of 4% lidocaine was injected in each site. Radiofrequency thermocoagulation at 80 degrees celsius for 90 seconds was then performed. [place] were removed. Sterile dressings were applied. COMPLICATIONS: No acute complications. DISPOSITION / PLANS: The patient was placed in a supine position and transferred to the recovery area in a stable condition for observation and was discharged from the recovery room after meeting discharge criteria. Home discharge instructions given to the patient by the staff. The patient will follow up in clinic in 4 weeks.
--- NOTE | 2020-01-20 09:40 | FL ---
Fluoroscopy INDICATION: Pain FINDINGS: Fluoroscopy time: 14 seconds. Images obtained: 6. IMPRESSIONS: 1. Documentation of fluoroscopy.
== END 2020-01-20 09:45 | disposition home or self-care (01) ==
LOC: ORPAIN 08:10
PROVIDERS: ATTEND Anesthesiology
DX: M47.816 Spondylosis without myelopathy or radiculopathy, lumbar region (principal); E11.9 Type 2 diabetes mellitus without complications; Z91.041 Radiographic dye allergy status; Z79.02 Long term (current) use of antithrombotics/antiplatelets
CPT/HCPCS: 64635; 64636; J2001; J2250; J3010; 99152

== ENCOUNTER 2020-01-28 09:23 | Inpatient (IN) | payer MEDICARE, BC ==
[2020-01-28] MEDS ORDERED: NITROGLYCERIN OINT 1 INCH/GM PACKET TOPICAL STA (09:29)
--- NOTE | 2020-01-28 09:32 | ED ---
Chest Pain HPI - General Stated Complaint: chest pain Time Seen by Provider: 01/28/20 09:23 Source: patient, RN notes reviewed Mode of arrival: EMS Limitations: no limitations - History of Present Illness Initial Comments: This a 65-year-old female with a prior history of 4 MIs with stents who states she started having chest pain at about 845 this morning was 10/10 severity ret rosternal radiating to the left arm pressure-like in nature similar to her prior MIs. EMS was called she was evaluated she was given 4 baby aspirin as well as nitroglycerin the pain is now 6 or 7/10 severity. She did have some nausea with it she also states she's been nauseated for past several days intermittently. No shortness of breath no sweats no other modifying factors at this time MD Complaint: chest pain - Related Data Home Medications Medication Instructions Recorded Confirmed ALPRAZolam [Xanax] 2 mg PO TID 07/07/19 01/28/20 Clopidogrel [Plavix] 75 mg PO DAILY 07/07/19 01/28/20 DULoxetine HCL [Cymbalta] 60 mg PO BID 07/07/19 01/28/20 Furosemide [Lasix] 80 mg PO DAILY 07/07/19 01/28/20 INSULIN LISPRO (HumaLOG) [HumaLOG] See Protocol SQ ACHS 07/07/19 01/28/20 Insulin Glargine [Lantus] 44 unit SQ HS 07/07/19 01/28/20 Insulin Glargine [Lantus] 50 unit SQ QAM 07/07/19 01/28/20 Levocetirizine Dihydrochloride 5 mg PO HS 07/07/19 01/28/20 [Xyzal] Levothyroxine Sodium [Synthroid] 200 mcg PO DAILY 07/07/19 01/28/20 Metoprolol Tartrate [Lopressor] 25 mg PO BID 07/07/19 01/28/20 Montelukast [Singulair] 10 mg PO DAILY 07/07/19 01/28/20 Nitroglycerin Sl Tabs [Nitrostat] 0.4 mg SUBLINGUAL Q5M PRN 07/07/19 01/28/20 Primidone [Mysoline] 50 mg PO TID 07/07/19 01/28/20 oxyCODONE-APAP 10-325MG [Percocet 1 tab PO TID PRN 07/07/19 01/28/20 10-325 mg] traZODone HCL [Desyrel] 200 mg PO HS 07/07/19 01/28/20 Spironolactone [Aldactone] 12.5 mg PO DAILY 07/23/19 01/28/20 Lisinopril [Zestril] 10 mg PO DAILY 01/28/20 01/28/20 Allergies Allergy/AdvReac Type Severity Reaction Status Date / Time Iodinated Contrast Media Allergy Rash/Hives Verified 01/28/20 10:41 iodine Allergy Rash/Hives Verified 01/28/20 10:41 Iodine and Iodide Containing Allergy Rash/Hives Verified 01/28/20 10:41 Produc liraglutide [From Saxenda] AdvReac Unknown Nausea & Verified 01/28/20 10:41 Vomiting NSAIDS (Non-Steroidal AdvReac Unknown Nausea & Verified 01/28/20 10:41 Anti-Inflamma Vomiting aspirin AdvReac Nausea & Verified 01/28/20 10:41 Vomiting with high doses azithromycin AdvReac Vomiting Verified 01/28/20 10:41 naproxen [From Naprosyn] AdvReac Nausea & Verified 01/28/20 10:41 Vomiting Review of Systems ROS Statement: Those systems with pertinent positive or pertinent negative responses have been documented in the HPI. ROS Other: All systems not noted in ROS Statement are negative. EKG Findings - EKG Results: EKG: interpreted by NIKO, sinus rhythm (Sinus rhythm 83. Interval 196 QRS 88 QT since QTC 370/434 left exodeviation low-voltage poor R-wave progression this is compared with an EKG dated 05/12/13) Past Medical History Past Medical History: Blood Disorder, Diabetes Mellitus, Deep Vein Thrombosis (DVT), Hypertension, Myocardial Infarction (DC), Osteoarthritis (OA), Pulmonary Embolus (PE), Thyroid Disorder Additional Past Medical History / Comment(s): hand tremors, DC x4, cold sx., DVT left leg-first one @age of 17, has had them w/all subsequent surgeries, lymphedema left leg, charcot syndrome left foot, bulging discs, "leaking disc", Factor 5 Leiden Last Myocardial Infarction Date:: 2011 History of Any Multi-Drug Resistant Organisms: None Reported Past Surgical History: Cholecystectomy, Heart Catheterization With Stent, Hernia Repair, Hysterectomy Additional Past Surgical History / Comment(s): salpingectomy, oophorectomy separately from hyst., prior epidural procedures, left foot surg. Bilateral cataract surgery Past Anesthesia/Blood Transfusion Reactions: No Reported Reaction Date of Last Stent Placement:: 2011 Past Psychological History: Anxiety, Depression Smoking Status: Former smoker Past Alcohol Use History: None Reported Past Drug Use History: None Reported - Past Family History Mother Family Medical History: No Reported History Father Family Medical History: Cancer Son(s) Family Medical History: Deep Vein Thrombosis (DVT) General Exam - General Exam Comments Initial Comments: This is a well-developed well-nourished awake alert oriented 3 female Limitations: no limitations General appearance: alert, anxious Head exam: Present: atraumatic, normocephalic, normal inspection Eye exam: Present: normal appearance, PERRL, EOMI. Absent: scleral icterus, conjunctival injection, periorbital swelling ENT exam: Present: normal exam, mucous membranes moist Neck exam: Present: normal inspection, full ROM, other (No stridor JVD or bruits). Absent: tenderness, meningismus, lymphadenopathy Respiratory exam: Present: normal lung sounds bilaterally. Absent: respiratory distress, wheezes, rales, rhonchi, stridor Cardiovascular Exam: Present: regular rate, normal rhythm, normal heart sounds. Absent: systolic murmur, diastolic murmur, rubs, gallop, clicks GI/Abdominal exam: Present: soft, normal bowel sounds. Absent: distended, tenderness, guarding, rebound, rigid Extremities exam: Present: normal inspection, full ROM, normal capillary refill. Absent: tenderness, pedal edema, joint swelling, calf tenderness Back exam: Present: normal inspection Neurological exam: Present: alert, oriented X3, CN II-XII intact Psychiatric exam: Present: normal affect, normal mood Skin exam: Present: warm, dry, intact, normal color. Absent: rash Course Vital Signs 01/28/20 09:31 Temperature 98.0 F Pulse Rate 80 Respiratory 18 Rate Blood Pressure 120/60 O2 Sat by Pulse 94 L Oximetry - Reevaluation(s) Reevaluation #1: 01/28/20 12:14 Patient was getting relief from her pain after nitroglycerin was applied. Chest Pain MDM - MDM Review the imaging and report no acute findings. Patient presentation is consistent with an NSTEMI. Patient currently pain-free I did discuss case Dr. Carty as well as Dr. Sorenson in the emergency department. Patient will be admitted Critical Care Time Critical Care Time: Yes Total Critical Care Time: 31 Critical Care Time: 31 minutes of critical care time which includes initial presentation with history physical labs x-rays discussed with paramedics and brought the patient several reevaluation the patient response to therapy discussion with numerous physicians admission orders and documentation of the above Disposition Clinical Impression: Non-ST elevation myocardial infarction (NSTEMI), Chest pain Disposition: ADMITTED IP TO THIS HOSP Condition: Fair Referrals: Venkatesh Segundo MD [Primary Care Provider] - 1-2 days
[2020-01-28 10:04] LABS: Anisocytosis Slight; Basophils % (A) 0 %; Eosinophils # (A) 0.2 k/uL (0-0.7); Eosinophils % (A) 4 %; HCT 34.4 % (34.0-46.0); HGB 10.8 gm/dL (11.4-16.0); Hypochromasia Moderate; Lymphocytes % (A) 16 %; MCH 26.8 pg (25.0-35.0); MCHC 31.3 g/dL (31.0-37.0); MCV 85.7 fL (80.0-100.0); Mean Platelet Volume 8.6; Monocytes # (A) 0.2 k/uL (0-1.0); Monocytes % (A) 4 %; Neutrophils # (A) 4.6 k/uL (1.3-7.7); Neutrophils % (A) 74 %; Platelet Count 180 k/uL (150-450); RBC 4.01 m/uL (3.80-5.40); RDW 17.2 % (11.5-15.5); WBC 6.3 k/uL (3.8-10.6)
--- NOTE | 2020-01-28 10:16 | XR ---
EXAMINATION TYPE: XR chest 2V DATE OF EXAM: 01/28/2020 COMPARISON: 07/17/2019 HISTORY: 65-year-old female with chest pain TECHNIQUE: AP and lateral views FINDINGS: Heart borderline enlarged. Mild diffuse interstitial prominence appears largely chronic. No william con solidation or pleural effusion. IMPRESSION: Cardiomegaly. Chronic changes, possible chronic bronchitis or asthma. No definite acute change.
[2020-01-28 10:18] LABS: Albumin 3.5 g/dL (3.5-5.0); Calcium 8.2 mg/dL (8.4-10.2); Magnesium 2.1 mg/dL (1.6-2.3); Potassium 4.7 mmol/L (3.5-5.1); Total Bilirubin 0.2 mg/dL (0.2-1.3); Total Protein 6.7 g/dL (6.3-8.2)
[2020-01-28 10:35] LABS: INR 0.9 (<1.2); Partial Thromboplastin Time 23.3 sec (22.0-30.0); Prothrombin Time 9.5 sec (9.0-12.0)
[2020-01-28] MEDS ORDERED: HEPARIN SODIUM,PORCINE 5,000 UNIT/ML 1 ML VIAL IV ONE (11:21)
[2020-01-28] MEDS ORDERED: HEPARIN SODIUM,PORCINE 5,000 UNIT/ML 1 ML VIAL IV PRN (11:21)
[2020-01-28] MEDS ORDERED: NITROGLYCERIN SL TABS 0.4 MG TAB SUBLINGUAL PRN ×2 (12:16→12:50)
[2020-01-28] MEDS ORDERED: ALPRAZolam 0.25 MG TAB PO PRN (12:50)
[2020-01-28] MEDS ORDERED: SODIUM CHLORIDE 0.9% 1,000 ML in EMPTY BAG 1 BAG IV ONE (12:50)
[2020-01-28] MEDS ORDERED: ALPRAZolam 0.5 MG TAB PO PRN (12:50)
[2020-01-28] MEDS: HEPARIN SOD,PORK IN 0.45% NACL 25,000 UNIT in 0.45% NACL 1 250ML.BAG IV SCH (13:05)
[2020-01-28 14:53] LABS: Glucose,Whole Blood 245 mg/dL (75-99)
[2020-01-28] MEDS ORDERED: NALOXONE 0.4 MG/ML 1 ML VIAL IV PRN (14:54)
[2020-01-28] MEDS ORDERED: MORPHINE SULFATE 4 MG/ML SYRINGE IV PRN (14:54)
--- NOTE | 2020-01-28 14:58 | P.HPIM ---
History of Present Illness H&P Date: 01/28/20 Chief Complaint: chest pain 65-year-old female with a prior history of 4 MIs with stents about 7 years ago presented to the ER becuase of worsening chest pain that has been ongoing over the past several days but worsened today. She described it as 10/10 in severity aching retrosternal radiating to the left arm , back. This pain is similar to the pain she had with her prior MIs. EMS gave patient 4 baby aspirin as well as nitroglycerin which helped bring the pain down to 6 or 7/10 severity. She did have some nausea with it but no vomiting. No shortness of breath no sweats no other modifying factors at this time. In the emergency department troponin came back elevated at 0.172. Her EKG did not show any acute changes. Patient was started on heparin drip and she was subsequently admitted to the hospital for further evaluation and treatment. Review of Systems Complete review of system performed, pertinent positives per HPI, otherwise negative Past Medical History Past Medical History: Blood Disorder, Diabetes Mellitus, Deep Vein Thrombosis (DVT), GERD/Reflux, Hyperlipidemia, Hypertension, Myocardial Infarction (MN), Osteoarthritis (OA), Pneumonia, Pulmonary Embolus (PE), Thyroid Disorder Additional Past Medical History / Comment(s): Factor 5 leiden, DVT L leg, PE L lung, MIs x 5, palpitations, IDDM type II, neuropathy bilateral legs/feet, lymphedema L leg, charcot syndrome L foot, chronic low back pain, bilateral sciatica, bronchitis, anemia, hypothyroid, UTI, IBS, sinus problems. Last Myocardial Infarction Date:: 2012 History of Any Multi-Drug Resistant Organisms: None Reported Past Surgical History: Appendectomy, Cholecystectomy, Heart Catheterization With Stent, Hernia Repair, Hysterectomy, Tonsillectomy Additional Past Surgical History / Comment(s): Bilateral salpingectomy, bilateral oophorectomy, abdominal hernia surgeries, L foot fracture with surgery-hardware since removed, bilateral cataract removals, epidural injections with last on 01/20/20 lumbar Past Anesthesia/Blood Transfusion Reactions: No Reported Reaction Additional Past Anesthesia/Blood Transfusion Reaction / Comment(s): Pt has received blood in past without reaction. Date of Last Stent Placement:: 2012 Smoking Status: Former smoker - Past Family History Mother Family Medical History: COPD Additional Family Medical History / Comment(s): Mother was a smoker. Father Family Medical History: Cancer Additional Family Medical History / Comment(s): Lung cancer. Father was a smoker. Son(s) Family Medical History: Deep Vein Thrombosis (DVT) Medications and Allergies Home Medications Medication Instructions Recorded Confirmed Type ALPRAZolam [Xanax] 2 mg PO TID 07/07/19 01/28/20 History Clopidogrel [Plavix] 75 mg PO DAILY 07/07/19 01/28/20 History DULoxetine HCL [Cymbalta] 60 mg PO BID 07/07/19 01/28/20 History Furosemide [Lasix] 80 mg PO DAILY 07/07/19 01/28/20 History INSULIN LISPRO (HumaLOG) [HumaLOG] See Protocol SQ ACHS 07/07/19 01/28/20 History Insulin Glargine [Lantus] 44 unit SQ HS 07/07/19 01/28/20 History Insulin Glargine [Lantus] 50 unit SQ QAM 07/07/19 01/28/20 History Levocetirizine Dihydrochloride 5 mg PO HS 07/07/19 01/28/20 History [Xyzal] Levothyroxine Sodium [Synthroid] 200 mcg PO DAILY 07/07/19 01/28/20 History Metoprolol Tartrate [Lopressor] 25 mg PO BID 07/07/19 01/28/20 History Montelukast [Singulair] 10 mg PO DAILY 07/07/19 01/28/20 History Nitroglycerin Sl Tabs [Nitrostat] 0.4 mg SUBLINGUAL Q5M PRN 07/07/19 01/28/20 History Primidone [Mysoline] 50 mg PO TID 07/07/19 01/28/20 History oxyCODONE-APAP 10-325MG [Percocet 1 tab PO TID PRN 07/07/19 01/28/20 History 10-325 mg] traZODone HCL [Desyrel] 200 mg PO HS 07/07/19 01/28/20 History Spironolactone [Aldactone] 12.5 mg PO DAILY 07/23/19 01/28/20 History Lisinopril [Zestril] 10 mg PO DAILY 01/28/20 01/28/20 History Allergies Allergy/AdvReac Type Severity Reaction Status Date / Time Iodinated Contrast Media Allergy Rash/Hives Verified 01/28/20 10:41 iodine Allergy Rash/Hives Verified 01/28/20 10:41 Iodine and Iodide Containing Allergy Rash/Hives Verified 01/28/20 10:41 Produc liraglutide [From Saxenda] AdvReac Unknown Nausea & Verified 01/28/20 10:41 Vomiting NSAIDS (Non-Steroidal AdvReac Unknown Nausea & Verified 01/28/20 10:41 Anti-Inflamma Vomiting aspirin AdvReac Nausea & Verified 01/28/20 10:41 Vomiting with high doses azithromycin AdvReac Vomiting Verified 01/28/20 10:41 naproxen [From Naprosyn] AdvReac Nausea & Verified 01/28/20 10:41 Vomiting Physical Exam Vitals: Vital Signs Temp Pulse Resp BP Pulse Ox 01/28/20 13:30 76 127/68 96 01/28/20 12:30 18 125/71 01/28/20 12:00 73 18 116/61 97 01/28/20 11:30 121/58 01/28/20 11:00 64 22 126/63 97 01/28/20 10:30 68 10 L 120/60 98 01/28/20 10:00 120/60 01/28/20 09:33 80 20 94 L 01/28/20 09:31 98.0 F 80 18 120/60 94 L Intake and Output 01/27/20 01/28/20 01/28/20 22:59 06:59 14:59 Other: Weight 112.491 kg Constitutional: No acute distress, conversant, pleasant Eyes:Anicteric sclerae, moist conjunctiva, no lid-lag, PERRLA, ENMT: Oropharynx clear, no erythema, exudates Neck: Supple, FROM, no masses, or JVD, No carotid bruits, No thyromegaly Lungs: Clear to auscultation, Clear to percussion, Normal respiratory effort, no accessory muscle use Cardiovascular: Heart regular in rate and rhythm, No murmurs, gallops, or rubs, No peripheral edema Abdominal: Soft, Nontender, no guarding, rebound or rigidity, Normoactive bowel sounds, No hepatomegaly, No splenomegaly, No palpable mass Skin: Normal temperature, tone, texture, turgor, no induration, No subcutaneous nodules, No rash, lesions, No ulcers Extremities: No digital cyanosis, No clubbing, Pedal pulses intact and symmetrical, Radial pulses intact and symmetrical, No calf tenderness Psychiatric: Alert and oriented to person, place and time, appropriate affect, intact judgement Neuro: Muscles Strength 5/5 in all 4 extremities, Sensation to light touch grossly present throughout, Cranial nerves II-XII grossly intact, no focal sensory deficits Results CBC & Chem 7: 01/28/20 09:48 01/28/20 09:48 Labs: Abnormal Lab Results - Last 24 Hours (Table) 01/28/20 01/28/20 01/28/20 Range/Units 09:48 09:48 09:48 Hgb 10.8 L (11.4-16.0) gm/dL RDW 17.2 H (11.5-15.5) % Sodium 135 L (137-145) mmol/L Glucose 343 H (74-99) mg/dL Calcium 8.2 L (8.4-10.2) mg/dL Alkaline Phosphatase 151 H (38-126) U/L Troponin I 0.172 H* (0.000-0.034) ng/mL Thrombosis Risk Factor Assmnt - Choose All That Apply Any of the Below Risk Factors Present?: Yes Each Factor Represents 1 point: Acute MN, Obesity (BMI >25) Other Risk Factors: Yes Each Risk Factor Represents 2 Points: Age 61-74 years Each Risk Factor Represents 3 Points: Family history of DVT/PE, History of DVT/PE Other congenital or acquired thrombophilia - If yes, enter type in comment: No Thrombosis Risk Factor Assessment Total Risk Factor Score: 10 Thrombosis Risk Factor Assessment Level: High Risk Assessment and Plan Plan: Non ST elevation myocardial infarction Cardiology consult Telemetry floor Heparin drip Start aspirin and statin Continue Plavix and metoprolol which she was taking at home. Diabetes type 2 Continue long-acting insulin Add sliding scale insulin with blood sugar checks every before meals and at bedtime Check A1c GERD/Reflux, Hypertension, Osteoarthritis (OA), Factor 5 leiden, Bilateral sciatica All stable Resume meds Expected length of stay more than 2 midnight, admitted to inpatient Anticipated discharge: 2-3 days Anticipated disposition: Home
[2020-01-28] MEDS: ALPRAZolam 1 MG TAB PO SCH ×2 (15:13→21:32)
[2020-01-28] MEDS: diphenhydrAMINE 25 MG CAP PO SCH ×2 (15:13→21:30)
[2020-01-28] MEDS: predniSONE 10 MG TAB PO SCH ×2 (15:13→21:32)
[2020-01-28] MEDS: PRIMIDONE 50 MG TAB PO SCH ×2 (15:14→21:33)
[2020-01-28] MEDS: INSULIN ASPART (NovoLOG) 100 UNIT/ML VIAL SQ SCH ×3 (15:14→21:31)
[2020-01-28] MEDS: oxyCODONE-APAP 10-325MG 1 EACH TAB PO PRN (16:24)
[2020-01-28 17:00] LABS: Glucose,Whole Blood 351 mg/dL (75-99)
[2020-01-28] MEDS ORDERED: INSULIN ASPART (NovoLOG) 100 UNIT/ML VIAL SQ SCH (17:30)
[2020-01-28] MEDS: NITROGLYCERIN OINT 1 INCH/GM PACKET TOPICAL SCH (17:36)
--- NOTE | 2020-01-28 18:52 | CONS ---
CONSULTATION CHIEF COMPLAINT: Chest pain. Rosalinda is a 65-year-old lady with history of coronary artery disease, status post prior angioplasty, who presented to [facility] complaining of chest pain. She describes it as a precordial chest pressure, mild to moderate in intensity at rest, unrelated to exertion and unassociated with diaphoresis. She came to the ER early this morning. Her troponin was elevated at 0.17, and at the time of my evaluation she received nitro paste, with which her symptoms have improved. I am seeing the patient around 12:30 and she states that she is pain-free. The patient is supposed to be on IV heparin, nitro paste, aspirin, Plavix, Zestril and Lopressor. She has not yet started the heparin at this time. Given her symptomatology, known CAD, I advised her to undergo cardiac catheterization for further evaluation. The patient states that she has seen Dr. Rivas in the past. I am going to review the records, and if that is so, schedule her for cardiac catheterization tomorrow. I told her that if she has further episodes of chest pain, we might consider doing the cardiac catheterization sooner. PAST MEDICAL HISTORY: Past medical history is significant for coronary artery disease, status post angioplasty, hypertension, diabetes. MEDICATIONS: Medications at home include Desyrel, insulin, Percocet, Aldactone, Mysoline, Singulair, Lopressor, Zestril, Synthroid, Lasix, Cymbalta, Plavix and Xanax. ALLERGIES: IV DYE, ASPIRIN, AZITHROMYCIN, NAPROSYN. FAMILY HISTORY: Negative for premature coronary artery disease. SOCIAL HISTORY: She denies smoking, ETOH abuse or drug abuse. REVIEW OF SYSTEMS: HEENT is unremarkable. CARDIAC: As described above. RESPIRATORY: As described above. GI: Negative. GENITOURINARY: Negative. ALLERGY: Negative. IMMUNOLOGY: Negative. SKIN: Negative. MUSCULOSKELETAL: Significant for arthritis. PSYCHOSOCIAL: Negative. ENDOCRINE: Negative. DERMATOLOGY: Negative. CONSTITUTIONAL: Negative. ONCOLOGICAL: Negative. FLATCAR WHACKER: Negative. Rest of the system review is not relevant. PHYSICAL EXAMINATION: She is comfortable at rest. Vital signs are stable. There is no jugular venous distention. Carotid upstroke is normal. There is no bruit. Chest exam reveals good air entry bilaterally. Heart exam reveals first and second heart sounds. No gallop. No murmur. No rub. Abdomen is soft, nontender. Examination of extremities did not reveal any edema. Peripheral pulses are felt. The chest x-ray is normal. EKG is abnormal; it shows evidence of prior anteroseptal myocardial infarction. Troponin is mildly elevated. Creatinine is normal. ASSESSMENT: 1. Acute [id number]-elevation myocardial infarction. 2. Coronary artery disease, status post prior angioplasty. 3. Hypertension. 4. Dyslipidemia. 5. Diabetes. PLAN: The patient will be scheduled for cardiac catheterization tomorrow. We have to prep her for the IV DYE ALLERGY. MMODL / IJN: [id number] /
[2020-01-28 20:38] LABS: Glucose,Whole Blood 302 mg/dL (75-99)
[2020-01-28] MEDS: DULoxetine HCL 60 MG CAPSULE.DR PO SCH (21:31)
[2020-01-28] MEDS: INSULIN DETEMIR (LEVEMIR) 100 UNIT/ML SYR SQ SCH (21:31)
[2020-01-28] MEDS: METOPROLOL TARTRATE 25 MG TAB PO SCH (21:32)
[2020-01-28] MEDS: LORATADINE 10 MG TAB PO SCH (21:32)
[2020-01-28] MEDS: traZODone HCL 100 MG TAB PO SCH (21:32)
[2020-01-29] MEDS: NITROGLYCERIN OINT 1 INCH/GM PACKET TOPICAL SCH ×3 (00:10→15:50)
[2020-01-29 02:59] LABS: Anisocytosis Slight; Basophils % (A) 0 %; Eosinophils # (A) 0.1 k/uL (0-0.7); Eosinophils % (A) 1 %; HCT 34.3 % (34.0-46.0); HGB 10.6 gm/dL (11.4-16.0); Hypochromasia Moderate; Lymphocytes % (A) 16 %; MCH 26.4 pg (25.0-35.0); MCHC 30.9 g/dL (31.0-37.0); MCV 85.4 fL (80.0-100.0); Mean Platelet Volume 8.9; Monocytes # (A) 0.2 k/uL (0-1.0); Monocytes % (A) 3 %; Neutrophils # (A) 5.2 k/uL (1.3-7.7); Neutrophils % (A) 79 %; Platelet Count 165 k/uL (150-450); RBC 4.01 m/uL (3.80-5.40); RDW 17.2 % (11.5-15.5); WBC 6.7 k/uL (3.8-10.6)
[2020-01-29 04:44] LABS: Albumin 3.4 g/dL (3.5-5.0); Calcium 8.4 mg/dL (8.4-10.2); Magnesium 2.2 mg/dL (1.6-2.3); Phosphorus 3.4 mg/dL (2.5-4.5); Potassium 5.2 mmol/L (3.5-5.1); Total Bilirubin 0.3 mg/dL (0.2-1.3); Total Protein 6.5 g/dL (6.3-8.2)
[2020-01-29] MEDS: DULoxetine HCL 60 MG CAPSULE.DR PO SCH ×2 (05:57→20:42)
[2020-01-29] MEDS: CLOPIDOGREL 75 MG TAB PO SCH (05:57)
[2020-01-29] MEDS: LISINOPRIL 10 MG TAB PO SCH (05:57)
[2020-01-29] MEDS: MONTELUKAST 10 MG TAB PO SCH (05:57)
[2020-01-29] MEDS: predniSONE 10 MG TAB PO SCH ×2 (05:57→20:42)
[2020-01-29] MEDS: LEVOTHYROXINE 100 MCG TAB PO SCH (05:57)
[2020-01-29] MEDS: METOPROLOL TARTRATE 25 MG TAB PO SCH ×2 (05:57→20:42)
[2020-01-29] MEDS: oxyCODONE-APAP 10-325MG 1 EACH TAB PO PRN ×3 (05:58→20:42)
[2020-01-29] MEDS: PRIMIDONE 50 MG TAB PO SCH ×3 (05:58→20:42)
[2020-01-29] MEDS: ALPRAZolam 1 MG TAB PO SCH ×4 (05:59→20:45)
[2020-01-29] MEDS ORDERED: ATORVASTATIN 80 MG TAB PO ONE (06:00)
[2020-01-29] MEDS ORDERED: ASPIRIN 325 MG TAB PO ONE (06:00)
[2020-01-29 06:11] LABS: Glucose,Whole Blood 240 mg/dL (75-99)
[2020-01-29] MEDS: INSULIN ASPART (NovoLOG) 100 UNIT/ML VIAL SQ SCH ×4 (06:21→21:03)
[2020-01-29] MEDS ORDERED: ASPIRIN 325 MG TAB PO SCH (09:00)
[2020-01-29] MEDS ORDERED: methylPREDNISolone SOD SUCCI 125 MG/2 ML VIAL IVP ONE (10:00)
[2020-01-29 11:43] LABS: Glucose,Whole Blood 193 mg/dL (75-99)
[2020-01-29] MEDS: diphenhydrAMINE 25 MG CAP PO SCH ×2 (11:46→20:42)
[2020-01-29] MEDS ORDERED: LIDOCAINE 1% INJ 10MG/ML (20 ML MDV) ONE (11:50)
[2020-01-29] MEDS ORDERED: IV FLUID CONTINUATION 1,000 ML IV ONE (12:00)
[2020-01-29] MEDS ORDERED: HEPARIN SODIUM 1,000 UN/ML (10ML VL) ONE (12:06)
[2020-01-29] MEDS ORDERED: VERAPAMIL 2.5 MG/ML 2 ML AMP ONE (12:06)
[2020-01-29] MEDS: MIDAZOLAM 2 MG/2 ML VIAL IV ONE ×2 (12:13→12:20)
[2020-01-29] MEDS ORDERED: LIDOCAINE 1% INJ 10MG/ML (20 ML MDV) SQ ONE (12:13)
[2020-01-29] MEDS ORDERED: VERAPAMIL SYRINGE (5 MG/10 ML) INTRAARTER ONE (12:17)
[2020-01-29] MEDS ORDERED: HEPARIN SODIUM 1,000 UN/ML (10ML VL) IV ONE ×3 (12:20→13:03)
[2020-01-29] MEDS ORDERED: fentaNYL (PF) 50 MCG/ML 2 ML AMP ONE (12:35)
[2020-01-29] MEDS ORDERED: fentaNYL (PF) 50 MCG/ML 2 ML AMP IV ONE (12:37)
[2020-01-29] MEDS ORDERED: IOPAMIDOL-370 100ML BTL INJ ONE ×2 (13:07→13:17)
[2020-01-29] MEDS ORDERED: NITROGLYCERIN 1000MCG/10ML SYRINGE INTRACORON ONE (13:14)
[2020-01-29] MEDS ORDERED: ATROPINE SULFATE 0.1 MG/ML 10ML SYRINGE IV PRN (13:29)
[2020-01-29] MEDS ORDERED: ZOLPIDEM 5 MG TAB PO PRN (13:29)
[2020-01-29] MEDS ORDERED: NITROGLYCERIN SL TABS 0.4 MG TAB SUBLINGUAL PRN (13:29)
[2020-01-29] MEDS ORDERED: MAG HYDROX/AL HYDROX/SIMETH 30 ML CUP PO PRN (13:29)
[2020-01-29] MEDS ORDERED: RX INFO: IV CONTRAST WAS GIVEN 1 EACH MISC MISCELLANE PRN (13:29)
[2020-01-29] MEDS ORDERED: PRAVASTATIN SODIUM 80 MG TAB PO SCH (13:30)
[2020-01-29] MEDS ORDERED: SODIUM CHLORIDE 0.9% 1,000 ML IV SCH (13:30)
--- NOTE | 2020-01-29 13:30 | P.PN ---
Subjective Progress Note Date: 01/29/20 Principal diagnosis: Chest pain Patient currently doing well, she denied any chest pain. No shortness of breath. She has been feeling slightly nauseous this morning due to taking all of her medications on an empty stomach. She is currently nothing by mouth for heart catheterization this morning. Objective - Vital Signs Vital signs: Vital Signs Temp 97.7 F 01/29/20 08:00 Pulse 82 01/29/20 11:45 Resp 18 01/29/20 11:45 BP 114/54 01/29/20 11:45 Pulse Ox 99 01/29/20 11:45 Intake & Output 01/28/20 01/29/20 01/29/20 18:59 06:59 18:59 Intake Total 405.760 200 Balance 405.760 200 Weight 112.491 kg 116.9 kg Intake: IV 200 Intake, IV Titration 168.760 Amount Heparin Sod,Pork in 0.45% 168.760 NaCl 25,000 unit In 0.45 % NaCl 1 250ml.bag @ 8.89 UNITS/KG/HR 10 mls/hr IV .Q24H [facility] Rx#:[id number] Oral 237 Other: Voiding Method Toilet Toilet Toilet # Voids 1 1 - Exam Constitutional: No acute distress, conversant, pleasant Eyes:Anicteric sclerae, moist conjunctiva, no lid-lag, PERRLA, ENMT: Oropharynx clear, no erythema, exudates Neck: Supple, FROM, no masses, or JVD, No carotid bruits, No thyromegaly Lungs: Clear to auscultation, Clear to percussion, Normal respiratory effort, no accessory muscle use Cardiovascular: Heart regular in rate and rhythm, No murmurs, gallops, or rubs, No peripheral edema Abdominal: Soft, Nontender, no guarding, rebound or rigidity, Normoactive bowel sounds, No hepatomegaly, No splenomegaly, No palpable mass Skin: Normal temperature, tone, texture, turgor, no induration, No subcutaneous nodules, No rash, lesions, No ulcers Extremities: No digital cyanosis, No clubbing, Pedal pulses intact and symmetrical, Radial pulses intact and symmetrical, No calf tenderness Psychiatric: Alert and oriented to person, place and time, appropriate affect, intact judgement Neuro: Muscles Strength 5/5 in all 4 extremities, Sensation to light touch grossly present throughout, Cranial nerves II-XII grossly intact, no focal sensory deficits - Labs CBC & Chem 7: 01/29/20 02:31 01/29/20 02:31 Labs: Abnormal Lab Results - Last 24 Hours (Table) 01/28/20 01/28/20 01/28/20 Range/Units 13:50 14:49 15:57 Hgb (11.4-16.0) gm/dL MCHC (31.0-37.0) g/dL RDW (11.5-15.5) % APTT (22.0-30.0) sec Sodium (137-145) mmol/L Potassium (3.5-5.1) mmol/L Glucose (74-99) mg/dL POC Glucose (mg/dL) 245 H (75-99) mg/dL AST (14-36) U/L Alkaline Phosphatase (38-126) U/L Troponin I 2.180 H* 3.790 H* (0.000-0.034) ng/mL Albumin (3.5-5.0) g/dL Triglycerides (<150) mg/dL Cholesterol (<200) mg/dL LDL Cholesterol, Calc (0-99) mg/dL HDL Cholesterol (40-60) mg/dL 01/28/20 01/28/20 01/29/20 Range/Units 16:53 20:36 02:31 Hgb 10.6 L (11.4-16.0) gm/dL MCHC 30.9 L (31.0-37.0) g/dL RDW 17.2 H (11.5-15.5) % APTT (22.0-30.0) sec Sodium (137-145) mmol/L Potassium (3.5-5.1) mmol/L Glucose (74-99) mg/dL POC Glucose (mg/dL) 351 H 302 H (75-99) mg/dL AST (14-36) U/L Alkaline Phosphatase (38-126) U/L Troponin I (0.000-0.034) ng/mL Albumin (3.5-5.0) g/dL Triglycerides (<150) mg/dL Cholesterol (<200) mg/dL LDL Cholesterol, Calc (0-99) mg/dL HDL Cholesterol (40-60) mg/dL 01/29/20 01/29/20 01/29/20 Range/Units 02:31 02:31 06:10 Hgb (11.4-16.0) gm/dL MCHC (31.0-37.0) g/dL RDW (11.5-15.5) % APTT 35.0 H (22.0-30.0) sec Sodium 136 L (137-145) mmol/L Potassium 5.2 H (3.5-5.1) mmol/L Glucose 283 H (74-99) mg/dL POC Glucose (mg/dL) 240 H (75-99) mg/dL AST 41 H (14-36) U/L Alkaline Phosphatase 158 H (38-126) U/L Troponin I (0.000-0.034) ng/mL Albumin 3.4 L (3.5-5.0) g/dL Triglycerides 336 H (<150) mg/dL Cholesterol 243 H (<200) mg/dL LDL Cholesterol, Calc 109 H (0-99) mg/dL HDL Cholesterol 67 H (40-60) mg/dL 01/29/20 01/29/20 Range/Units 09:52 11:41 Hgb (11.4-16.0) gm/dL MCHC (31.0-37.0) g/dL RDW (11.5-15.5) % APTT 30.3 H (22.0-30.0) sec Sodium (137-145) mmol/L Potassium (3.5-5.1) mmol/L Glucose (74-99) mg/dL POC Glucose (mg/dL) 193 H (75-99) mg/dL AST (14-36) U/L Alkaline Phosphatase (38-126) U/L Troponin I (0.000-0.034) ng/mL Albumin (3.5-5.0) g/dL Triglycerides (<150) mg/dL Cholesterol (<200) mg/dL LDL Cholesterol, Calc (0-99) mg/dL HDL Cholesterol (40-60) mg/dL Assessment and Plan Plan: Non ST elevation myocardial infarction Going for heart catheterization today. shelter monitor on telemetry Cardiology following Heparin drip Lipid panel with high LDL and TG Started aspirin and statin, was already on plavix and metoprolol which she was taking at home. Diabetes type 2 Continue long-acting insulin Add sliding scale insulin with blood sugar checks every before meals and at bedtime Check A1c GERD/Reflux, Hypertension, Osteoarthritis (OA), Factor 5 leiden, Bilateral sciatica All stable Resume meds Anticipated discharge: 2 days Anticipated disposition: Home
[2020-01-29] MEDS: HEPARIN SOD,PORK IN 0.45% NACL 25,000 UNIT in 0.45% NACL 1 250ML.BAG IV SCH (15:07)
[2020-01-29] MEDS: SPIRONOLACTONE 25 MG TAB PO SCH (15:24)
[2020-01-29] MEDS: FUROSEMIDE 80 MG TAB PO SCH (15:25)
[2020-01-29] MEDS: INSULIN DETEMIR (LEVEMIR) 100 UNIT/ML SYR SQ SCH ×2 (15:26→21:04)
[2020-01-29 16:40] LABS: Glucose,Whole Blood 347 mg/dL (75-99)
[2020-01-29] MEDS: traZODone HCL 100 MG TAB PO SCH (20:42)
[2020-01-29] MEDS: LORATADINE 10 MG TAB PO SCH (20:43)
[2020-01-29 20:57] LABS: Glucose,Whole Blood 455 mg/dL (75-99)
[2020-01-29] MEDS ORDERED: INSULIN ASPART (NovoLOG) 100 UNIT/ML VIAL SQ ONE (21:19)
--- NOTE | 2020-01-29 23:24 | PTCA ---
PERCUTANEOUSTRANS CORORONARY ANGIOGRAPHY Mrs. Brothers is a 65-year-old female with known history of coronary artery disease and history of diabetes who presented with kvw-[id number]-elevation myocardial infarction. She underwent cardiac catheterization by Dr. Rivas and was found to have a critical stenosis in the proximal LAD and moderate to significant disease in the mid right coronary artery. Discussion by Dr. Rivas with the patient and her family regarding both options of percutaneous revascularization versus coronary bypass grafting. The patient elected to proceed with percutaneous revascularization. The procedures, its risks and complications were discussed with the patient, who was in full understanding and agreement. PROCEDURE DESCRIPTION: A 6-[place] EBU 3.75 guiding catheter was introduced into the system. After cannulating the left main, a 0.014 balanced medium weight J-wire was advanced across the lesion, positioned distally, then a 2.5 x 15 mm NC Emerge balloon was advanced. One inflation at 10 atmospheres was done. Following that, the balloon was removed and a 3.0 x 15 mm Xience Malini stent was deployed and post-dilated at 16 atmospheres. Following that the balloon was removed and a 3.25 NC Emerge balloon was advanced and one inflation at 14 atmospheres was done. After the last inflation, after appropriate wait, the balloon and the guidewire were withdrawn back into the guiding catheter. Images were obtained and repeated. Those images revealed stable successful stenting. At that point, the guiding catheter, the balloon and the guidewire were removed. The sheath was removed. Hemostasis was obtained with deployment of a TR band. There was no immediate complication. Patient was returned to her room in stable condition. Of note, the patient received a total of 8000 units of intravenous heparin and her ACT was followed. She had mild EKG changes with the inflation but no significant chest pain. RESULTS: Successful stenting of the proximal LAD proximal to the edge of the prior stented segment with reduction of stenosis from 99% to 0%. RECOMMENDATIONS: Patient will be continued on aspirin, Plavix and statin. The importance of dual antiplatelet treatment was discussed with the patient and her family, and they are in full understanding and agreement. Duration of the procedure was 18 minutes. ENEDINA / SUMAYAN: [id number] /
[2020-01-30] MEDS: oxyCODONE-APAP 10-325MG 1 EACH TAB PO PRN (06:11)
[2020-01-30 06:26] LABS: Glucose,Whole Blood 226 mg/dL (75-99)
[2020-01-30] MEDS: LEVOTHYROXINE 100 MCG TAB PO SCH (06:36)
[2020-01-30] MEDS: INSULIN DETEMIR (LEVEMIR) 100 UNIT/ML SYR SQ SCH (06:36)
[2020-01-30] MEDS: INSULIN ASPART (NovoLOG) 100 UNIT/ML VIAL SQ SCH ×2 (06:36→11:58)
[2020-01-30 07:41] LABS: Anisocytosis Slight; Basophils % (A) 0 %; Eosinophils % (A) 0 %; HCT 36.2 % (34.0-46.0); HGB 11.1 gm/dL (11.4-16.0); Hypochromasia Slight; Lymphocytes # (A) 1.2 k/uL (1.0-4.8); Lymphocytes % (A) 14 %; MCHC 30.6 g/dL (31.0-37.0); MCV 84.9 fL (80.0-100.0); Mean Platelet Volume 8.8; Monocytes # (A) 0.3 k/uL (0-1.0); Monocytes % (A) 4 %; Neutrophils # (A) 7.3 k/uL (1.3-7.7); Neutrophils % (A) 81 %; Platelet Count 200 k/uL (150-450); RBC 4.27 m/uL (3.80-5.40); RDW 17.3 % (11.5-15.5); WBC 8.9 k/uL (3.8-10.6)
[2020-01-30 07:47] LABS: Calcium 8.7 mg/dL (8.4-10.2); Potassium 4.5 mmol/L (3.5-5.1)
[2020-01-30] MEDS: SPIRONOLACTONE 25 MG TAB PO SCH (08:59)
[2020-01-30] MEDS: CLOPIDOGREL 75 MG TAB PO SCH (08:59)
[2020-01-30] MEDS: PRIMIDONE 50 MG TAB PO SCH (08:59)
[2020-01-30] MEDS: FUROSEMIDE 80 MG TAB PO SCH (08:59)
[2020-01-30] MEDS: ALPRAZolam 1 MG TAB PO SCH (08:59)
[2020-01-30] MEDS: LISINOPRIL 10 MG TAB PO SCH (08:59)
[2020-01-30] MEDS: DULoxetine HCL 60 MG CAPSULE.DR PO SCH (08:59)
[2020-01-30] MEDS: MONTELUKAST 10 MG TAB PO SCH (09:00)
[2020-01-30] MEDS ORDERED: PRAVASTATIN SODIUM 80 MG TAB PO SCH (09:00)
[2020-01-30] MEDS ORDERED: ATORVASTATIN 80 MG TAB PO SCH (09:00)
[2020-01-30] MEDS: METOPROLOL TARTRATE 25 MG TAB PO SCH (09:00)
[2020-01-30] MEDS ORDERED: ASPIRIN 81 MG PO SCH (09:00)
[2020-01-30] MEDS: predniSONE 10 MG TAB PO SCH (09:02)
[2020-01-30] MEDS: diphenhydrAMINE 25 MG CAP PO SCH (09:02)
[2020-01-30 09:31] VITALS: BP 110/53; PULSE 74; RESP 18; TEMP 97.7
--- NOTE | 2020-01-30 10:51 | P.DS ---
Providers Date of admission: 01/28/20 12:16 Expected date of discharge: 01/30/20 Attending physician: Lina Elmore DO Consults: 01/28/20 12:16 Consult Physician Urgent Consulting Provider: Basil Sorenson Consult Reason/Comments: Chest pain, elevated troponin Do you want consulting provider notified?: Already Contacted 01/29/20 13:29 Consult Physician Routine Consulting Provider: [facility] Consult Reason/Comments: Post Interventional patient Do you want consulting provider notified?: Already Contacted Primary care physician: Venkatesh Stern [facility] Course: 65-year-old female with a prior history of 4 MIs with stents about 7 years ago presented to the ER becuase of worsening chest pain that has been ongoing over the past several days. She described it as 10/10 in severity aching retrosternal radiating to the left arm , back. This pain is similar to the pain she had with her prior MIs. EMS gave patient 4 baby aspirin as well as nitroglycerin which helped bring the pain down to 6 or 7/10 severity. She did have some nausea with it but no vomiting. No shortness of breath no sweats no other modifying factors at this time. In the emergency department troponin came back elevated at 0.172. Her EKG did not show any acute changes. Patient was started on heparin drip and she was subsequently admitted to the hospital for further evaluation and treatment. After the admission her troponin did trend up to a peak of 3.7. She was continued on heparin drip. He was seen by cardiology who did a heart catheterization, stent was placed in the LAD. She was also continued on aspirin. Throughout hospitalization she was noted to be hyperglycemic and in addition her lipid panel WAS out of control. LDL was 109 and triglycerides was 336, because of that she was started on statin but patient stated that she did not tolerate statins in the past. Due to that patient will be started on Zetia. Follow-up cholesterol panel should be done in 3-6 months. Currently she is doing well, she denied having any chest pain. She was cleared by cardiology for discharge. She will be discharged home in a stable condition. She'll be prescribed aspirin and Plavix in addition to Zetia. Time for discharge 35 minutes. Patient Condition at Discharge: Fair Plan - Discharge Summary Discharge Rx Participant: No New Discharge Prescriptions: New Aspirin 81 mg PO DAILY 90 Days #90 chew Ezetimibe [Zetia] 10 mg PO DAILY 30 Days #30 tab Continue ALPRAZolam [Xanax] 2 mg PO TID Primidone [Mysoline] 50 mg PO TID Montelukast [Singulair] 10 mg PO DAILY Nitroglycerin Sl Tabs [Nitrostat] 0.4 mg SUBLINGUAL Q5M PRN PRN Reason: Chest Pain Metoprolol Tartrate [Lopressor] 25 mg PO BID Clopidogrel [Plavix] 75 mg PO DAILY Insulin Glargine [Lantus] 44 unit SQ HS Insulin Glargine [Lantus] 50 unit SQ QAM INSULIN LISPRO (HumaLOG) [humaLOG] See Protocol SQ ACHS Furosemide [Lasix] 80 mg PO DAILY oxyCODONE-APAP 10-325MG [Percocet 10-325 mg] 1 tab PO TID PRN PRN Reason: Pain DULoxetine HCL [Cymbalta] 60 mg PO BID traZODone HCL [Desyrel] 200 mg PO HS Levothyroxine Sodium [Synthroid] 200 mcg PO DAILY Levocetirizine Dihydrochloride [Xyzal] 5 mg PO HS Spironolactone [Aldactone] 12.5 mg PO DAILY Lisinopril [Zestril] 10 mg PO DAILY Discharge Medication List ALPRAZolam [Xanax] 2 mg PO TID 07/07/19 [History] Clopidogrel [Plavix] 75 mg PO DAILY 07/07/19 [History] DULoxetine HCL [Cymbalta] 60 mg PO BID 07/07/19 [History] Furosemide [Lasix] 80 mg PO DAILY 07/07/19 [History] INSULIN LISPRO (HumaLOG) [humaLOG] See Protocol SQ ACHS 07/07/19 [History] Insulin Glargine [Lantus] 44 unit SQ HS 07/07/19 [History] Insulin Glargine [Lantus] 50 unit SQ QAM 07/07/19 [History] Levocetirizine Dihydrochloride [Xyzal] 5 mg PO HS 07/07/19 [History] Levothyroxine Sodium [Synthroid] 200 mcg PO DAILY 07/07/19 [History] Metoprolol Tartrate [Lopressor] 25 mg PO BID 07/07/19 [History] Montelukast [Singulair] 10 mg PO DAILY 07/07/19 [History] Nitroglycerin Sl Tabs [Nitrostat] 0.4 mg SUBLINGUAL Q5M PRN 07/07/19 [History] Primidone [Mysoline] 50 mg PO TID 07/07/19 [History] oxyCODONE-APAP 10-325MG [Percocet 10-325 mg] 1 tab PO TID PRN 07/07/19 [History] traZODone HCL [Desyrel] 200 mg PO HS 07/07/19 [History] Spironolactone [Aldactone] 12.5 mg PO DAILY 07/23/19 [History] Lisinopril [Zestril] 10 mg PO DAILY 01/28/20 [History] Aspirin 81 mg PO DAILY 90 Days #90 chew 01/30/20 [Rx] Ezetimibe [Zetia] 10 mg PO DAILY 30 Days #30 tab 01/30/20 [Rx] Follow up Appointment(s)/Referral(s): Venkatesh Segundo MD [Primary Care Provider] - 1-2 days Activity/Diet/Wound Care/Special Instructions: [facility] - [phone] [facility] - [phone]
--- NOTE | 2020-01-30 10:57 | P.PN ---
Subjective Progress Note Date: 01/30/20 This is a 65-year-old female with history of coronary artery disease and prior PCI who presented to the hospital with symptoms of chest discomfort. She was initially seen in consultation by Dr. Camacho, underwent a cardiac catheterization by Dr. jasmeet Guevara with subsequent angioplasty and stenting of the LAD. The patient was seen and examined this morning, feels well, denies any chest discomfort and her breathing overall is stable. Blood pressure this morning 110/50 with a heart rate in the 70s, 94% on room air. White blood cell count 8.9, hemoglobin 11.1, platelet count 200. Sodium 136, potassium 4.5, BUN 23, creatinine 0.9. Objective - Vital Signs Vital signs: Vital Signs Temp 97.7 F 01/30/20 08:55 Pulse 74 01/30/20 08:55 Resp 18 01/30/20 08:55 BP 110/53 01/30/20 08:55 Pulse Ox 94 L 01/30/20 08:55 Intake & Output 01/29/20 01/30/20 01/30/20 18:59 06:59 18:59 Intake Total 200 480 Balance 200 480 Weight 116.6 kg Intake: IV 200 Oral 480 Other: Voiding Method Toilet Toilet Toilet # Voids 1 1 - Exam PHYSICAL EXAMINATION: GENERAL: 65-year-old female in no acute distress at the time of my examination HEENT: Head is atraumatic, normocephalic. Pupils equal, round. Sclera anicteric. Conjunctiva are clear. Mucous membranes of the mouth are moist. Neck is supple. There is no elevated jugular venous pressure. No carotid bruit is heard. HEART EXAMINATION: Heart S1, S2 normal. No murmur or gallop heard. CHEST EXAMINATION: Lungs are clear to auscultation and precussion. No chest wall tenderness is noted on palpation or with deep breathing. ABDOMEN: Soft, nontender. Bowel sounds are heard. No organomegaly noted. EXTREMITIES: 2+ peripheral pulses with no evidence of peripheral edema and no calf tenderness noted. Right radial site clean and dry, good distal pulse. NEUROLOGIC patient is awake, alert and oriented 3 . - Labs CBC & Chem 7: 01/30/20 06:40 01/30/20 06:40 Labs: Abnormal Lab Results - Last 24 Hours (Table) 01/29/20 01/29/20 01/29/20 Range/Units 09:52 11:41 16:39 Hgb (11.4-16.0) gm/dL MCHC (31.0-37.0) g/dL RDW (11.5-15.5) % APTT 30.3 H (22.0-30.0) sec Sodium (137-145) mmol/L BUN (7-17) mg/dL Glucose (74-99) mg/dL POC Glucose (mg/dL) 193 H 347 H (75-99) mg/dL 01/29/20 01/30/20 01/30/20 Range/Units 20:55 06:25 06:40 Hgb 11.1 L (11.4-16.0) gm/dL MCHC 30.6 L (31.0-37.0) g/dL RDW 17.3 H (11.5-15.5) % APTT (22.0-30.0) sec Sodium (137-145) mmol/L BUN (7-17) mg/dL Glucose (74-99) mg/dL POC Glucose (mg/dL) 455 H 226 H (75-99) mg/dL 01/30/20 Range/Units 06:40 Hgb (11.4-16.0) gm/dL MCHC (31.0-37.0) g/dL RDW (11.5-15.5) % APTT (22.0-30.0) sec Sodium 136 L (137-145) mmol/L BUN 23 H (7-17) mg/dL Glucose 213 H (74-99) mg/dL POC Glucose (mg/dL) (75-99) mg/dL Assessment and Plan Plan: Assessment and plan #1 status post angioplasty and stenting of the LAD. #2 diabetes #3 hypertension #4 hyperlipidemia #5 hypothyroidism #6 known history of coronary artery disease with prior PCI Plan From cardiology's perspective, patient may be able to be discharged home today. We will make her a follow-up appointment with Dr. Rivas post discharge. DNP note has been reviewed, I agree with a documented findings and plan of care. Patient was seen and examined.
[2020-01-30 11:57] LABS: Glucose,Whole Blood 314 mg/dL (75-99)
--- NOTE | 2020-01-30 13:42 | ECHOF ---
Referral Reason:mi MEASUREMENTS -------- HEIGHT: 165.1 cm WEIGHT: 570.2 kg BP: 114/54 RVIDd: 3.3 cm (< 3.3) IVSd: 1.3 cm (0.6 - 1.1) LVIDd: 5.0 cm (3.9 - 5.3) LVPWd: 1.4 cm (0.6 - 1.1) IVSs: 1.8 cm LVIDs: 3.2 cm LVPWs: 1.6 cm LAESV Index (A-L): 16.61 ml/m Ao Diam: 3.4 cm (2.0 - 3.7) AV Cusp: 1.9 cm (1.5 - 2.6) MV EXCURSION: 21.475 mm (> 18.000) MV EF SLOPE: 88 mm/s (70 - 150) EPSS: 0.4 cm MV E Donny: 1.08 m/s MV DecT: 224 ms MV A Donny: 0.92 m/s MV E/A Ratio: 1.17 RAP: 5.00 mmHg RVSP: 21.49 mmHg FINDINGS -------- This was a technically difficult study with suboptimal views. The left ventricular size is normal. There is mild concentric left ventricular hypertrophy. Overa ll left ventricular systolic function is mild-moderately impaired with, an EF between 40 - 45 %. Th e diastolic filling pattern is normal for the age of the patient {E/E'}. Mid inferoseptal LV wall m otion is normal. Apical lateral LV wall motion is hypokinetic. Apical inferior LV wall motion is hypokinetic. Apical septum LV wall motion is hypokinetic. The right ventricle is normal in size. Normal LA size by volume 22+/-6 ml/m2. The right atrium was not well visualized. Lumason used Interatrial and interventricular septum intact. The aortic valve is trileaflet and appears structurally normal. There is no evidence of aortic regu rgitation. There is no evidence of aortic stenosis. There is trace to mild mitral regurgitation. Mild tricuspid regurgitation present. There is no evidence of pulmonary hypertension. The right v entricular systolic pressure, as measured by Doppler, is 21.49mmHg. There is no pulmonic regurgitation present. The aortic root size is normal. The inferior vena cava is mildly dilated. There is no pericardial effusion. CONCLUSIONS -------- 1. This was a technically difficult study with suboptimal views. 2. The left ventricular size is normal. 3. There is mild concentric left ventricular hypertrophy. 4. Overall left ventricular systolic function is mild-moderately impaired with, an EF between 40 - 45 %. 5. The diastolic filling pattern is normal for the age of the patient {E/E'} 6. Mid inferoseptal LV wall motion is normal. 7. Apical lateral LV wall motion is hypokinetic. 8. Apical inferior LV wall motion is hypokinetic. 9. Apical septum LV wall motion is hypokinetic. 10. The right ventricle is normal in size. 11. Normal LA size by volume 22+/-6 ml/m2. 12. The right atrium was not well visualized. 13. Lumason used 14. Interatrial and interventricular septum intact. 15. The aortic valve is trileaflet and appears structurally normal. 16. There is no evidence of aortic regurgitation. 17. There is no evidence of aortic stenosis. 18. There is trace to mild mitral regurgitation. 19. Mild tricuspid regurgitation present. 20. There is no evidence of pulmonary hypertension. 21. The right ventricular systolic pressure, as measured by Doppler, is 21.49mmHg. 22. There is no pulmonic regurgitation present. 23. The aortic root size is normal. 24. The inferior vena cava is mildly dilated. 25. There is no pericardial effusion. SUPERVISOR PATCHING: Karen Huynh HARDY
--- NOTE | 2020-02-07 06:34 | P.CARDCATH ---
Date of Procedure: 01/29/20 Preoperative Diagnosis: Unstable angina Postoperative Diagnosis: Critical lesion involving the stent in the LAD Procedure(s) Performed: Left heart catheterization without left ventriculography Description of Procedure: HISTORY: This is a 65-year-old female with history of ischemic heart disease with a previous stent placement of the left anterior descending coronary artery 2. Patient had stent placement 2012 and repeat stenting. 3 months later for in-stent stenosis and since then patient has been stable. Patient now admitted to the hospital with unstable angina. Patient is advised to have cardiac catheterization for definitive diagnosis CONSENT:I have discussed the risks, benefits and alternative therapies for the above-mentioned procedure and for both sedation/analgesia as well as necessary blood product administration, if indicated, as they pertain to this patient. The patient has indicated understanding and acceptance of the risks and procedures discussed. PROCEDURE: Patient was brought to the lab in a fasting state. Patient was given some IV sedation. The right wrist is infiltrated with lidocaine and right radial artery was entered using Seldinger technique. A 6-Bulgarian catheter was left in place and selective coronary arteriography was performed. Patient tolerated the procedure well. Patient went on to have stent placement of the LAD by Dr. Lamas . No immediate complications were noted and patient was transferred to [facility] in a stable condition Conscious Sedation: Versed 1mg Fentanyl 25 g Duration 21minutes HEMODYNAMICS: The aortic pressure is about 130/80. Left ankle end-diastolic pressure is about 15. No gradient across the aortic valve SELECTIVE CORONARY ARTERIOGRAPHY: LEFT MAIN: Short and free of occlusive disease THE LEFT ANTERIOR DESCENDING CORONARY ARTERY:. This is a good caliber vessel with about 99% stenosis of the proximal portion of the stent in the proximal LAD. The stent is actually after a small septal branch. The rest of the LAD appears to free of any occlusive disease THE LEFT CIRCUMFLEX AND IS CORONARY ARTERY:. This is a fair caliber vessel with mild diffuse disease without any critical lesions THE RIGHT CORONARY ARTERY: This is a moderate caliber vessel with about 60-70% lesion in the midportion LEFT VENTRICULOGRAPHY: Not performed FINAL IMPRESSION:. Critical lesion involving the stent in the LAD which is immediately after first septal branch. Moderate disease in the mid RCA PLAN: Stent placement of the LAD. Followed by stress test to see if there is any ischemia in the right coronary artery in about 4-6 weeks' time PROGNOSIS: Guarded
== END 2020-01-30 12:08 | disposition home or self-care (01) | DRG 247 ==
LOC: EC 09:23 → 3SCARD 12:16
PROVIDERS: ADMIT Internal Medicine; ATTEND Internal Medicine
PROC: 027034Z Dilation of Coronary Artery, One Artery with Drug-eluting Intraluminal Device, Percutaneous Approach (ICD-10-PCS; principal; 2020-01-29 12:00)
PROC: B2111ZZ Fluoroscopy of Multiple Coronary Arteries using Low Osmolar Contrast (ICD-10-PCS; 2020-01-29 12:00)
PROC: 4A023N7 Measurement of Cardiac Sampling and Pressure, Left Heart, Percutaneous Approach (ICD-10-PCS; 2020-01-29 12:00)
DX: I21.4 Non-ST elevation (NSTEMI) myocardial infarction (principal); D68.51 Activated protein C resistance; Z68.41 Body mass index [BMI] 40.0-44.9, adult; A52.16 Charcot's arthropathy (tabetic); E03.9 Hypothyroidism, unspecified; E11.41 Type 2 diabetes mellitus with diabetic mononeuropathy; E11.51 Type 2 diabetes mellitus with diabetic peripheral angiopathy without gangrene; E11.65 Type 2 diabetes mellitus with hyperglycemia; E78.5 Hyperlipidemia, unspecified; I10 Essential (primary) hypertension; I25.10 Atherosclerotic heart disease of native coronary artery without angina pectoris; I25.2 Old myocardial infarction; K21.9 Gastro-esophageal reflux disease without esophagitis; M19.90 Unspecified osteoarthritis, unspecified site; M54.31 Sciatica, right side; M54.32 Sciatica, left side; Z11.59 Encounter for screening for other viral diseases; Z79.02 Long term (current) use of antithrombotics/antiplatelets; Z79.4 Long term (current) use of insulin; Z79.890 Hormone replacement therapy; Z79.899 Other long term (current) drug therapy; Z80.1 Family history of malignant neoplasm of trachea, bronchus and lung; Z82.5 Family history of asthma and other chronic lower respiratory diseases; Z86.711 Personal history of pulmonary embolism; Z87.891 Personal history of nicotine dependence; Z90.710 Acquired absence of both cervix and uterus; Z98.61 Coronary angioplasty status; Z88.6 Allergy status to analgesic agent; Z91.041 Radiographic dye allergy status; Z87.01 Personal history of pneumonia (recurrent); Z87.440 Personal history of urinary (tract) infections; K58.9 Irritable bowel syndrome, unspecified; Z90.49 Acquired absence of other specified parts of digestive tract; Z98.42 Cataract extraction status, left eye; Z98.41 Cataract extraction status, right eye; Z83.2 Family history of diseases of the blood and blood-forming organs and certain disorders involving the immune mechanism; E66.9 Obesity, unspecified; Z88.8 Allergy status to other drugs, medicaments and biological substances; Z88.1 Allergy status to other antibiotic agents; Z90.79 Acquired absence of other genital organ(s); Z90.722 Acquired absence of ovaries, bilateral
CPT/HCPCS: 36415; 71046; 80048; 80053; 80061; 82550; 83735; 83880; 84100; 84484; 85025; 85610; 85730; 93005; 93306; 93458; 96365; 96366; 96376; 99291

== ENCOUNTER → 2020-02-18 | Outpatient (CLI) | payer MEDICARE, BC ==
[2020-02-18 13:34] VITALS: BP 114/72; PULSE 71; RESP 16
--- NOTE | 2020-02-18 13:56 | P.PAINPG ---
Subjective Progress Note Date: 02/18/20 This is a follow-up visit for this 65 years old female, with a chronic history of severe low back pain she is diagnosed with lumbar spondylosis with lumbar facet arthropathy and lumbar degenerative disc disease, status post RFA of the medial branch lumbar area, she continued to have severe low back pain, the pain localized in the low back area and radiated to the buttock and hip bilaterally ,the pain increase with any activity even movement or walking exacerbates her pain, she is able to ambulate a few steps ,but she has to use a wheelchair ,when she has to walk more than a few minutes, she denies any fever or night sweats she denies any change in the bowel movements or urination, she continued to use Percocet 10/325 when necessary as prescribed by her primary care Objective - Vital Signs Vital signs: Vital Signs Temp Pulse 71 02/18/20 13:31 Resp 16 02/18/20 13:31 BP 114/72 02/18/20 13:31 Pulse Ox 97 02/18/20 13:31 - Exam Physical Examinations : -Constitutiona : Cooperative , not in acute distress . -HEENT : nech : supple , no Lymphadenopathy , normal thyroid size . : eyes : no ptosis , no icterus, no photophobia . - neurologic : Cranial nerve II to XII intact , no focal neurological deffecit . -psychatric : alert , oriented X 3 , appropriate affect , intact judgment and insight . -Lymphatic : no Lymphadenopathy . - musculoskeltal : Lumber spine moter stegnth lower extremities ,thigh and legs 5/5 Right side , 5/5 Left side deep tendon reflexes : normal Knee Jerk , normal ankle Jerk lumber facet Loading Test =positive Right , positive Left Range of motion of the lumbar spine Flexion 30 degrees, extension 10 degrees strait leg raising test = positive at 30 degree Fabere test= positive Right , and positive LT . Sever tenderness over the Sacroiliac joint on the Right , and Left sides Gaenslen test= positive right ,and positive left . Seated flexion test= positive right ,and positive Left . MRI of the lumbar spine= reviewed and it showed multilevel lumbar degenerative disc disease and lumbar spondylosis Assessment and Plan Plan: Assessment and plan=1 lumbar degenerative disc disease. 2-lumbar spondylosis with lumbar facet arthropathy. 3-bilateral sacroiliitis. 4-morbid obesity. Patient continued to have severe low back pain after the RFA of the medial branch lumbar area, currently the location of the pain and Clinical examination support that most of the pain is coming from the sacroiliac joint component, discussed with the patient the option of doing bilateral sacroiliac joint steroid injection under fluoroscopy guidance and patient currently uses Plavix and there is no reason to hold Plavix for the sacroiliac joint injection, we could use 25-gauge needle, [place] continue to get medication refilled from her primary care Time with Patient: Less than 30 PQRS Measure Charge Sheet Measure #130: Documentation of Current Meds in Medical Chart: Patient's medications documented in chart Measure #226: Tobacco Use: Screen & Cessation Intervention: Pt not a tobacco user Measure #111: Pneumonia Vaccination: Pneumococcal vaccine administered or previously received Measure #47: Advance Care Plan: Advance care planning discussed & documented, pt chose/unable to give Measure #412: Opioid Treatment Agreement: No documentation of signed opioid treatment agreement Measure #408: Opioid Therapy Follow-up Evaluation: Patient had NO f/u eval minimum every 3 months during opioid therapy Measure #317: Preventitive Care & Scrn High Bld Press & F/U: Normal blood pressure, f/u not required Measure #128: Body Mass Index (BMI) Screening & Follow-up: BMI documented ABOVE normal parameters - f/u documented Measure #131: Pain Assessment & Follow-up: Pain positive & plan documented, Follow-up scheduled Measure #431: Unhealthy Alcohol Use Preventative Care & Scrn: Patient not identified as an unhealthy alcohol user PQRS Narrative: Smoking Status Former smoker Blood Pressure 114/72 Pain Intensity [Lower Back] 8 Scale Used Numeric (1 - 10) Hx Alcohol Use (MH) No Home Medications: Ambulatory Orders ALPRAZolam [Xanax] 2 mg PO TID 07/07/19 Clopidogrel [Plavix] 75 mg PO DAILY 07/07/19 DULoxetine HCL [Cymbalta] 60 mg PO BID 07/07/19 Furosemide [Lasix] 80 mg PO DAILY 07/07/19 INSULIN LISPRO (HumaLOG) [humaLOG] See Protocol SQ ACHS 07/07/19 Insulin Glargine [Lantus] 44 unit SQ HS 07/07/19 Insulin Glargine [Lantus] 50 unit SQ QAM 07/07/19 Levocetirizine Dihydrochloride [Xyzal] 5 mg PO HS 07/07/19 Levothyroxine Sodium [Synthroid] 200 mcg PO DAILY 07/07/19 Metoprolol Tartrate [Lopressor] 25 mg PO BID 07/07/19 Montelukast [Singulair] 10 mg PO DAILY 07/07/19 Nitroglycerin Sl Tabs [Nitrostat] 0.4 mg SUBLINGUAL Q5M PRN 07/07/19 Primidone [Mysoline] 50 mg PO TID 07/07/19 oxyCODONE-APAP 10-325MG [Percocet 10-325 mg] 1 tab PO TID PRN 07/07/19 traZODone HCL [Desyrel] 200 mg PO HS 07/07/19 Spironolactone [Aldactone] 12.5 mg PO DAILY 07/23/19 Lisinopril [Zestril] 10 mg PO DAILY 01/28/20 Aspirin 81 mg PO DAILY 90 Days #90 chew 01/30/20 Atorvastatin [Lipitor] 80 mg PO DAILY #30 tab 01/30/20 Ezetimibe [Zetia] 10 mg PO DAILY 30 Days #30 tab 01/30/20 Controlled Substance Measures - Controlled Substance Measures Is patient prescribed a controlled substance at discharge?: No
== END | disposition home or self-care (01) ==
LOC: PNWHC3 12:42
PROVIDERS: ATTEND Specialist
DX: M47.816 Spondylosis without myelopathy or radiculopathy, lumbar region (principal); M51.36 Other intervertebral disc degeneration, lumbar region; M46.96 Unspecified inflammatory spondylopathy, lumbar region; M46.1 Sacroiliitis, not elsewhere classified; E66.01 Morbid (severe) obesity due to excess calories; Z87.891 Personal history of nicotine dependence; Z79.899 Other long term (current) drug therapy; Z79.891 Long term (current) use of opiate analgesic; Z79.4 Long term (current) use of insulin; Z79.82 Long term (current) use of aspirin
CPT/HCPCS: 99211

== ENCOUNTER 2020-03-04 06:20 | Day surgery (SDC) | payer MEDICARE, BC ==
[2020-03-02 10:13] VITALS: BMI 41.5
[2020-03-04 06:40] VITALS: RESP 16; TEMP 97
[2020-03-04 06:50] LABS: Glucose,Whole Blood 119 mg/dL (75-99)
[2020-03-04] MEDS ORDERED: MIDAZOLAM 2 MG/2 ML VIAL ONE (07:26)
[2020-03-04] MEDS ORDERED: TRIAMCINOLONE ACETONIDE 40 MG/ML 1 ML VIAL ONE (07:26)
[2020-03-04] MEDS ORDERED: ROPIVACAINE 5MG/ML 20ML VIAL ONE (07:26)
[2020-03-04] MEDS ORDERED: fentaNYL (PF) 50 MCG/ML 2 ML AMP ONE (07:26)
[2020-03-04] MEDS ORDERED: IV FLUID CONTINUATION 1,000 ML IV ONE (07:45)
[2020-03-04 07:49] LABS: Glucose,Whole Blood 114 mg/dL (75-99)
--- NOTE | 2020-03-04 07:58 | FL ---
EXAMINATION TYPE: FL guided pain mgmt statistic DATE OF EXAM: 03/04/2020 HISTORY: Fluoroscopy time 7 seconds of fluoroscopy provided. IMPRESSION: 1. Fluoroscopy time.
[2020-03-04 08:06] VITALS: BP 133/69; PULSE 63
--- NOTE | 2020-03-04 08:23 | P.PCN ---
Date of Procedure: 03/04/20 Procedure(s) Performed: Preoperative diagnoses: bilateral sacroilitis Postoperative diagnoses: bilateral sacroilitis. Procedure: bilateral sacroiliac joint steroid injection under fluoroscopic guidance. Surgeon: Zacarias Xiao MD Anesthesia: [2 mL of 1% lidocaine and moderate sedation per hospital guidelines], sedation time 7 minutes Fluoroscopy was used for the procedure and fluoroscopic images were saved to the radiology portion of the patient's chart. EBL: None Procedure indication: The patient had a history of severe chronic low back pain, diagnosed with sacroiliitis unresponsive to conservative treatment. Procedure description: The patient was seen and identified in the preoperative holding area, risks and benefits and alternative of the procedure and possible complications discussed with the patient, and patient agreed with the preceding, patient signed the consent, an IV was started, and vital signs were monitored and were stable throughout the procedure, patient was placed in the prone position on table and the lumbosacral area was prepped and draped with a sterile fashion, vital signs were closely monitored during the procedure, the fluoroscopy camera was placed in the contralateral oblique view on the bilateral sacroiliac joint and the lower part of the joint was identified . Then the skin and subcutaneous tissue was anesthetized using 2 mL of 1% lidocaine then a 22- gauge Quincke-type spinal needle advanced slowly under fluoroscopy and placed in the posterior and inferior border of the right sacroiliac joint, placement confirmed with AP and lateral view, and after appropriate needle placement confirmed and after negative aspiration for heme, a solution consisting of 2 ml of ropivacaine 0.5% and 20 mg of Kenalog injected after negative aspiration, no paresthesia during the injection, no resistance to injection, and the needle was removed. The procedure was then repeated on the left side. Total of 40 mg of Kenalog was used for the procedure. Patient tolerated the procedure well without any complication. Comment: Contrast dye was not used as the patient is ALLERGIC to iodinated contrast The patient was returned to supine position after the back was cleaned and a Band-Aid applied, the patient was transported to recovery room in stable condition and monitored for 30 minutes before being discharged home. The patient will follow up with the pain clinic in a few weeks
== END 2020-03-04 08:15 | disposition home or self-care (01) ==
LOC: ORPAIN 06:20
PROVIDERS: ATTEND Anesthesiology
DX: G89.29 Other chronic pain (principal); M46.1 Sacroiliitis, not elsewhere classified; I25.2 Old myocardial infarction; E11.9 Type 2 diabetes mellitus without complications; Z91.041 Radiographic dye allergy status; Z79.02 Long term (current) use of antithrombotics/antiplatelets; Z79.82 Long term (current) use of aspirin; Z90.710 Acquired absence of both cervix and uterus
CPT/HCPCS: J2250; J3301; J3010; J2795; G0260

== ENCOUNTER → 2020-05-05 | Outpatient (CLI) | payer MEDICARE, BC ==
[2020-05-05 11:01] VITALS: BP 126/60; PULSE 95; RESP 20; TEMP 97.8
--- NOTE | 2020-05-05 12:12 | P.PAINPG ---
Subjective Progress Note Date: 05/05/20 This is a follow-up visit for this 65 years old female, with a chronic history of severe low back pain she is diagnosed with lumbar spondylosis with lumbar facet arthropathy and lumbar degenerative disc disease, and bilateral sacroiliitis, previously we have done RFA of the lumbar medial branch , and rece ntly we did bilateral sacroiliac joint steroid injection , and the injection helped her buttock pain significantly , currently she is complaining of severe low back pain, the pain localized in the low back area and radiated to the buttock and hip bilaterally ,the pain increase with any activity even movement or walking exacerbates her pain, she is able to ambulate a few steps ,but she has to use a wheelchair ,when she has to walk more than a few minutes, she denies any fever or night sweats she denies any change in the bowel movements or urination, she continued to use Percocet 10/325 when necessary as prescribed by her primary care Objective - Vital Signs Vital signs: Vital Signs Temp 97.8 F 05/05/20 10:58 Pulse 95 05/05/20 10:58 Resp 20 05/05/20 10:58 BP 126/60 05/05/20 10:58 Pulse Ox 97 05/05/20 10:58 - Exam -Constitutiona : Cooperative , not in acute distress . -HEENT : nech : supple , no Lymphadenopathy , normal thyroid size . : eyes : no ptosis , no icterus, no photophobia . - neurologic : Cranial nerve II to XII intact , no focal neurological deffecit . -psychatric : alert , oriented X 3 , appropriate affect , intact judgment and insight . -Lymphatic : no Lymphadenopathy . - musculoskeltal : Lumber spine moter stegnth lower extremities ,thigh and legs 5/5 Right side , 5/5 Left side deep tendon reflexes : normal Knee Jerk , normal ankle Jerk lumber facet Loading Test =positive Right , positive Left Range of motion of the lumbar spine Flexion 30 degrees, extension 10 degrees strait leg raising test = positive at 30 degree Fabere test= positive Right , and positive LT . Sever tenderness over the Sacroiliac joint on the Right , and Left sides Gaenslen test= positive right ,and positive left . Seated flexion test= positive right ,and positive Left . MRI of the lumbar spine= reviewed and it showed multilevel lumbar degenerative disc disease and lumbar spondylosis Assessment and Plan Plan: Assessment and plan=1 lumbar degenerative disc disease. 2-lumbar spondylosis with lumbar facet arthropathy. 3-bilateral sacroiliitis. 4-morbid obesity. Clinical examination support that most of the pain is coming from the sacroiliac joint component, discussed with the patient the option of Repeat bilateral sacroiliac joint steroid i njection under fluoroscopy guidance and patient currently uses Plavix and there is no reason to hold Plavix for the sacroiliac joint injection, we could use 25-gauge needle, she will continue to get medication refilled from her primary care Time with Patient: Less than 30 Time with Patient: Less than 30 PQRS Measure Charge Sheet Measure #130: Documentation of Current Meds in Medical Chart: Patient's medications documented in chart Measure #226: Tobacco Use: Screen & Cessation Intervention: Pt not a tobacco user Measure #111: Pneumonia Vaccination: Pneumococcal vaccine administered or previo usly received Measure #47: Advance Care Plan: Advance care planning discussed & documented, pt chose/unable to give Measure #412: Opioid Treatment Agreement: No documentation of signed opioid treatment agreement Measure #408: Opioid Therapy Follow-up Evaluation: Patient had NO f/u eval minimum every 3 months during opioid therapy Measure #317: Preventitive Care & Scrn High Bld Press & F/U: Normal blood pressure, f/u not required Measure #128: Body Mass Index (BMI) Screening & Follow-up: BMI documented ABOVE normal parameters - f/u documented Measure #131: Pain Assessment & Follow-up: Pain positive & plan documented, Follow-up scheduled Measure #431: Unhealthy Alcohol Use Preventative Care & Scrn: Patient not identified as an unhealthy alcohol user PQRS Narrative: Smoking Status Former smoker Blood Pressure 126/60 Pain Intensity [Lower Back] 5 Scale Used Numeric (1 - 10) Hx Alcohol Use (MH) No Home Medications: Ambulatory Orders ALPRAZolam [Xanax] 2 mg PO TID 07/07/19 Clopidogrel [Plavix] 75 mg PO DAILY 07/07/19 DULoxetine HCL [Cymbalta] 60 mg PO BID 07/07/19 Furosemide [Lasix] 80 mg PO DAILY 07/07/19 INSULIN LISPRO (HumaLOG) [humaLOG] See Protocol SQ ACHS 07/07/19 Insulin Glargine [Lantus] 44 unit SQ HS 07/07/19 Insulin Glargine [Lantus] 50 unit SQ QAM 07/07/19 Levocetirizine Dihydrochloride [Xyzal] 5 mg PO HS 07/07/19 Levothyroxine Sodium [Synthroid] 200 mcg PO DAILY 07/07/19 Metoprolol Tartrate [Lopressor] 25 mg PO BID 07/07/19 Montelukast [Singulair] 10 mg PO DAILY 07/07/19 Nitroglycerin Sl Tabs [Nitrostat] 0.4 mg SUBLINGUAL Q5M PRN 07/07/19 Primidone [Mysoline] 50 mg PO TID 07/07/19 oxyCODONE-APAP 10-325MG [Percocet 10-325 mg] 1 tab PO TID PRN 07/07/19 traZODone HCL [Desyrel] 200 mg PO HS 07/07/19 lisinopriL [Zestril] 10 mg PO DAILY 01/28/20 Aspirin 81 mg PO DAILY 90 Days #90 chew 01/30/20 Ezetimibe [Zetia] 10 mg PO DAILY 30 Days #30 tab 01/30/20 Celecoxib [CeleBREX] 200 mg PO QAM 05/05/20 Controlled Substance Measures - Controlled Substance Measures Is patient prescribed a controlled substance at discharge?: No
--- NOTE | 2020-05-05 12:14 | P.PN ---
Progress Note - Text Progress Note Date: 05/05/20 This is an addendum to the note dictated earlier, patient complaining of severe low back pain and she is diagnosed with lumbar spondylosis with lumbar facet arthropathy, bilateral sacroiliitis she is currently on Percocet 10/325 she is getting prescriptions from her primary care, he shouldn't report that she has minimal benefit from this medication for this reason I started her on Celebrex 200 mg every morning, patient had ALLERGY to unstated which is nausea and vomiting And more than 20 years ago, and explained to the patient that the very unlikely to have side effects from the Celebrex but increase if she had any side effect then she has to stop the Celebrex immediately.
== END | disposition home or self-care (01) ==
LOC: PNWHC3 10:52
PROVIDERS: ATTEND Specialist
DX: M47.816 Spondylosis without myelopathy or radiculopathy, lumbar region (principal); M46.96 Unspecified inflammatory spondylopathy, lumbar region; M46.1 Sacroiliitis, not elsewhere classified; Z79.891 Long term (current) use of opiate analgesic
CPT/HCPCS: 99211

== ENCOUNTER → 2020-06-01 | Day surgery (SDC) | payer MEDICARE, BC ==
[2020-05-28 12:27] VITALS: BMI 400.1
[~2020-06-01] MED LIST changes: +IV FLUID CONTINUATION 1,000 ML IV ONE; +LIDOCAINE 1% (10MG/ML) FOR IV START INTRADERMA ONE; +MIDAZOLAM 2 MG/2 ML VIAL ONE; +ROPIVACAINE 5MG/ML 20ML VIAL ONE; +fentaNYL (PF) 50 MCG/ML 2 ML AMP ONE; +methylPREDNISolone ACETATE 40 MG/ML 1 ML VIAL ONE
[2020-06-01 06:47] VITALS: TEMP 98.4
[2020-06-01 06:49] LABS: Glucose,Whole Blood 199 mg/dL (75-99)
--- NOTE | 2020-06-01 07:09 | P.PCN ---
Date of Procedure: 06/01/20 Procedure(s) Performed: Procedure: Sacroiliac joint injection bilateral Preoperative diagnosis: Sacroiliitis Postoperative diagnosis: Sacroiliitis Imaging: Fluoroscopy was used, images where saved to the medical record Complications: none Anesthesia: IV sedation with 1 mg of Versed and 50 g of fentanyl Description of the procedure: procedure risk and benefits discussed with the patient, including but not limited, risk of infection and bleeding, and allergic reaction to the medication and incomplete pain relief. Patient agreed and signed consent. Patient was taken to the room and placed in a prone position. Chlorhexidine was used to cleanse the skin. Under sterile conditions patient skin was anesthetized 1% lidocaine. 25-gauge 5 inch spinal needle was advanced under fluoroscopic guidance. Needle was advanced into the inferior portion of the sacroiliac joint. IV contrast was not used to confirm spread within the joint due to ALLERGY to contrast dye. After adequate spread was achieved, 2.5 ML's of 0.5% ropivacaine with 40 mg of triamcinolone was injected into the joint( 20 mg in each joint). Patient tolerated the procedure well. Sent to the recovery room in stable condition. Patient will follow up as directed.
[2020-06-01 07:21] VITALS: BP 103/66; PULSE 76; RESP 17
[2020-06-01 07:21] LABS: Glucose,Whole Blood 180 mg/dL (75-99)
--- NOTE | 2020-06-01 08:43 | FL ---
Fluoroscopy HISTORY: Pain 4 seconds fluoroscopy time supplied to the referring clinician. 2 intraoperative C-arm images docume nt the procedure. See dictated report from anesthesia.
== END ==
LOC: ORPAIN 06:21
PROVIDERS: ATTEND Hospitalist
DX: M46.1 Sacroiliitis, not elsewhere classified (principal); E11.9 Type 2 diabetes mellitus without complications; Z90.710 Acquired absence of both cervix and uterus; Z91.041 Radiographic dye allergy status; Z88.6 Allergy status to analgesic agent; Z79.4 Long term (current) use of insulin; Z79.02 Long term (current) use of antithrombotics/antiplatelets; Z79.82 Long term (current) use of aspirin
CPT/HCPCS: J2250; J1030; J3010; J2795; G0260

== ENCOUNTER 2020-07-19 19:58 | Emergency (ER) | payer MEDICARE, BC ==
[2020-07-19] MEDS ORDERED: LORazepam 2 MG/ML INJ IV STA ×2 (20:22→21:23)
--- NOTE | 2020-07-19 20:44 | ED ---
General Adult HPI - General Source: patient, RN notes reviewed, old records reviewed Mode of arrival: wheelchair Limitations: no limitations <Jared Fisher - Last Filed: 07/19/20 22:14> <Dilshad Chamberlain - Last Filed: 07/19/20 22:22> - General Chief complaint: Anxiety Stated complaint: Weakness/Shaking Time Seen by Provider: 07/19/20 20:14 - History of Present Illness Initial comments: 65-year-old female patient to ED. Patient reports that she has been extremely anxious since the onset of the coronavirus infection. She has been more anxious in the last couple of days. She is feeling very shaky. She denies any suicidal or homicidal ideations or any attempts to harm herself. Denies any pain. Denies any other acute complaints. (Jared Fisher) - Related Data Home Medications Medication Instructions Recorded Confirmed ALPRAZolam [Xanax] 2 mg PO BID 07/07/19 06/25/20 Clopidogrel [Plavix] 75 mg PO DAILY 07/07/19 06/25/20 DULoxetine HCL [Cymbalta] 60 mg PO BID 07/07/19 06/25/20 Furosemide [Lasix] 80 mg PO DAILY 07/07/19 06/25/20 INSULIN LISPRO (HumaLOG) [humaLOG] See Protocol SQ ACHS 07/07/19 06/25/20 Insulin Glargine [Lantus] 44 unit SQ HS 07/07/19 06/25/20 Insulin Glargine [Lantus] 50 unit SQ QAM 07/07/19 06/25/20 Levocetirizine Dihydrochloride 5 mg PO HS 07/07/19 06/25/20 [Xyzal] Levothyroxine Sodium [Synthroid] 200 mcg PO DAILY 07/07/19 06/25/20 Metoprolol Tartrate [Lopressor] 25 mg PO BID 07/07/19 06/25/20 Montelukast [Singulair] 10 mg PO DAILY 07/07/19 06/25/20 Nitroglycerin Sl Tabs [Nitrostat] 0.4 mg SUBLINGUAL Q5M PRN 07/07/19 06/25/20 oxyCODONE-APAP 10-325MG [Percocet 1 tab PO TID PRN 07/07/19 06/25/20 10-325 mg] traZODone HCL [Desyrel] 200 mg PO HS 07/07/19 06/25/20 lisinopriL [Zestril] 10 mg PO DAILY 01/28/20 06/25/20 Celecoxib [CeleBREX] 200 mg PO QAM 05/05/20 06/25/20 Previous Rx's Medication Instructions Recorded Aspirin 81 mg PO DAILY 90 Days #90 chew 01/30/20 Ezetimibe [Zetia] 10 mg PO DAILY 30 Days #30 tab 01/30/20 Allergies Allergy/AdvReac Type Severity Reaction Status Date / Time Iodinated Contrast Media Allergy Rash/Hives Verified 07/19/20 20:11 Iodine and Iodide Containing Allergy Rash/Hives Verified 07/19/20 20:11 Produc liraglutide [From Saxenda] AdvReac Unknown Nausea & Verified 07/19/20 20:11 Vomiting NSAIDS (Non-Steroidal AdvReac Unknown Nausea & Verified 07/19/20 20:11 Anti-Inflamma Vomiting aspirin AdvReac Nausea & Verified 07/19/20 20:11 Vomiting with high doses azithromycin AdvReac Vomiting Verified 07/19/20 20:11 naproxen [From Naprosyn] AdvReac Nausea & Verified 07/19/20 20:11 Vomiting Review of Systems ROS Other: All systems not noted in ROS Statement are negative. <Jared Fisher - Last Filed: 07/19/20 22:14> ROS Other: All systems not noted in ROS Statement are negative. <Dilshad Chamberlain - Last Filed: 07/19/20 22:22> ROS Statement: Those systems with pertinent positive or pertinent negative responses have been documented in the HPI. Past Medical History Past Medical History: Blood Disorder, Diabetes Mellitus, Deep Vein Thrombosis (DVT), GERD/Reflux, Hyperlipidemia, Hypertension, Myocardial Infarction ([place]), Osteoarthritis (OA), Pneumonia, Pulmonary Embolus (PE), Thyroid Disorder Additional Past Medical History / Comment(s): Factor 5 leiden, DVT L leg, PE L lung, MIs x 5, palpitations, IDDM type II, neuropathy bilateral legs/feet, lymphedema L leg, charcot syndrome L foot, chronic low back pain, bilateral sciatica, bronchitis, anemia, hypothyroid, UTI, IBS, sinus problems, worsening tremors, recent AL & hospitalization Last Myocardial Infarction Date:: January 2020 History of Any Multi-Drug Resistant Organisms: None Reported Past Surgical History: Appendectomy, Cholecystectomy, Heart Catheterization With Stent, Hernia Repair, Hysterectomy, Tonsillectomy Additional Past Surgical History / Comment(s): Bilateral salpingectomy, bilateral oophorectomy, abdominal hernia surgeries, L foot fracture with s urgery-hardware since removed, bilateral cataract removals, epidural injections with last on 01/20/20 lumbar Past Anesthesia/Blood Transfusion Reactions: No Reported Reaction Additional Past Anesthesia/Blood Transfusion Reaction / Comment(s): Pt has r eceived blood in past without reaction. Date of Last Stent Placement:: January 2020 Past Psychological History: Anxiety, Depression Smoking Status: Former smoker - Past Family History Mother Additional Family Medical History / Comment(s): Mother was a smoker. Father Additional Family Medical History / Comment(s): Lung cancer. Father was a smoker. Son(s) Family Medical History: Deep Vein Thrombosis (DVT) <Jared Fisher - Last Filed: 07/19/20 22:14> General Exam Limitations: no limitations <Jared Fisher - Last Filed: 07/19/20 22:14> - General Exam Comments Initial Comments: Constitutional: NAD, AOX3, Pt has pleasant affect. HEENT: NC/AT, trachea midline, neck supple, no lymphadenopathy. External ears appear normal, without discharge. Mucous membranes moist. Eyes PERRLA, EOM intact. There is no scleral icterus. No pallor noted. Cardiopulmonary: RRR, no murmurs, rubs or gallops, no JVD noted. Lungs CTAB in anterior and posterior felton. No peripheral edema. Abdominal exam: Abdomen soft and non-distended. Abdomen non-tender to palpation in all 4 quadrants. Bowel sounds active in LLQ. No hepatosplenomegaly. No ecchymosis Neuro: CN II-XII grossly intact. No nuchal rigidity. MSK: Full active ROM in upper and lower extremities, 5/5 stregnth. (Jared Fisher) Course <Dilshad Chamberlain - Last Filed: 07/19/20 22:22> Vital Signs 07/19/20 20:07 Temperature 98.6 F Pulse Rate 85 Respiratory 16 Rate Blood Pressure 111/61 O2 Sat by Pulse 94 L Oximetry - Reevaluation(s) Reevaluation #1: 07/19/20 22:22 PA supervision: I proceed evaluate this case. Patient did present demonstrate evidence of anxiety the cardiac aspect of the workup was negative. Patient will be discharged appropriately. (Dilshad Chamberlain) Medical Decision Making - Lab Data Result diagrams: 07/19/20 21:05 07/19/20 21:05 - EKG Data -: EKG Interpreted by Me (and Dr. Chamberlain ) <Jared Fisher - Last Filed: 07/19/20 22:14> - Lab Data Result diagrams: 07/19/20 21:05 07/19/20 21:05 <Dilshad Chamberlain - Last Filed: 07/19/20 22:22> - Medical Decision Making 65-year-old female to ED for evaluation feeling very shaky and anxious. No chest pain or shortness of breath no other symptoms. The symptoms of onset ideations. Physical exam negative for acute pathology. The investigations were obtained mild dehydration as her fluid bolus. Also mild hyperglycemia, she has hx of diabetes and will monitor at home. Patient was administered anxiolytic and is feeling much improved. Patient had discussion with EPS who provided outpatient follow up. Patient had used xanax much earlier in the day with no improvement in symptoms. She will be sent home with one pill of ativan that she can use tomorrow if needed. She has a telephone visit with her pcp tomorrow. Will return to ED with any worsening symptoms. Case discussed with Dr. Chamberlain. (Jared Fisher) - Lab Data Lab Results 07/19/20 07/19/20 07/19/20 Range/Units 21:05 21:05 21:05 WBC 6.9 (3.8-10.6) k/uL RBC 4.26 (3.80-5.40) m/uL Hgb 11.6 (11.4-16.0) gm/dL Hct 37.2 (34.0-46.0) % MCV 87.2 (80.0-100.0) fL MCH 27.2 (25.0-35.0) pg MCHC 31.2 (31.0-37.0) g/dL RDW 16.5 H (11.5-15.5) % Plt Count 205 (150-450) k/uL MPV 8.4 Neutrophils % 69 % Lymphocytes % 21 % Monocytes % 4 % Eosinophils % 4 % Basophils % 1 % Neutrophils # 4.8 (1.3-7.7) k/uL Lymphocytes # 1.5 (1.0-4.8) k/uL Monocytes # 0.2 (0-1.0) k/uL Eosinophils # 0.3 (0-0.7) k/uL Basophils # 0.0 (0-0.2) k/uL Hypochromasia Slight Anisocytosis Slight PT 9.5 (9.0-12.0) sec INR 0.9 (<1.2) APTT 23.0 (22.0-30.0) sec Sodium 136 L (137-145) mmol/L Potassium 4.5 (3.5-5.1) mmol/L Chloride 100 (98-107) mmol/L Carbon Dioxide 29 (22-30) mmol/L Anion Gap 7 mmol/L BUN 18 H (7-17) mg/dL Creatinine 1.15 H (0.52-1.04) mg/dL Est GFR (CKD-EPI)AfAm 57 (>60 ml/min/1.73 sqM) Est GFR (CKD-EPI)NonAf 50 (>60 ml/min/1.73 sqM) Glucose 224 H (74-99) mg/dL Calcium 8.9 (8.4-10.2) mg/dL Phosphorus 4.0 (2.5-4.5) mg/dL Magnesium 2.1 (1.6-2.3) mg/dL Total Bilirubin 0.3 (0.2-1.3) mg/dL AST 30 (14-36) U/L ALT 20 (4-34) U/L Alkaline Phosphatase 136 H (38-126) U/L Troponin I (0.000-0.034) ng/mL Total Protein 7.4 (6.3-8.2) g/dL Albumin 3.9 (3.5-5.0) g/dL 07/19/20 Range/Units 21:05 WBC (3.8-10.6) k/uL RBC (3.80-5.40) m/uL Hgb (11.4-16.0) gm/dL Hct (34.0-46.0) % MCV (80.0-100.0) fL MCH (25.0-35.0) pg MCHC (31.0-37.0) g/dL RDW (11.5-15.5) % Plt Count (150-450) k/uL MPV Neutrophils % % Lymphocytes % % Monocytes % % Eosinophils % % Basophils % % Neutrophils # (1.3-7.7) k/uL Lymphocytes # (1.0-4.8) k/uL Monocytes # (0-1.0) k/uL Eosinophils # (0-0.7) k/uL Basophils # (0-0.2) k/uL Hypochromasia Anisocytosis PT (9.0-12.0) sec INR (<1.2) APTT (22.0-30.0) sec Sodium (137-145) mmol/L Potassium (3.5-5.1) mmol/L Chloride (98-107) mmol/L Carbon Dioxide (22-30) mmol/L Anion Gap mmol/L BUN (7-17) mg/dL Creatinine (0.52-1.04) mg/dL Est GFR (CKD-EPI)AfAm (>60 ml/min/1.73 sqM) Est GFR (CKD-EPI)NonAf (>60 ml/min/1.73 sqM) Glucose (74-99) mg/dL Calcium (8.4-10.2) mg/dL Phosphorus (2.5-4.5) mg/dL Magnesium (1.6-2.3) mg/dL Total Bilirubin (0.2-1.3) mg/dL AST (14-36) U/L ALT (4-34) U/L Alkaline Phosphatase (38-126) U/L Troponin I <0.012 (0.000-0.034) ng/mL Total Protein (6.3-8.2) g/dL Albumin (3.5-5.0) g/dL - EKG Data EKG Comments: ventricular rate 88, DC interval 172, QRS 88, QT/QTC 364/440. Normal sinus rhythm, possible septal infarct age indeterminate. No concern for acute ischemia. (Jared Fisher) Disposition Is patient prescribed a controlled substance at d/c from ED?: No <Jared Fisher - Last Filed: 07/19/20 22:14> <Dilshad Chamberlain - Last Filed: 07/19/20 22:22> Clinical Impression: Acute anxiety Disposition: HOME SELF-CARE Condition: Stable Instructions (If sedation given, give patient instructions): Generalized A nxiety Disorder (ED) Additional Instructions: Follow up with PCP as scheduled discussion tomorrow. If needed you may use ativan pill tomorrow for anxiety. Do not take both ativan and xanax. You must use one or the other. Return to ED with any worsening symptoms. Referrals: Venkatesh Segundo MD [Primary Care Provider] - 1-2 days
[2020-07-19 21:11] LABS: Anisocytosis Slight; Basophils % (A) 1 %; Eosinophils # (A) 0.3 k/uL (0-0.7); Eosinophils % (A) 4 %; HCT 37.2 % (34.0-46.0); HGB 11.6 gm/dL (11.4-16.0); Hypochromasia Slight; Lymphocytes # (A) 1.5 k/uL (1.0-4.8); Lymphocytes % (A) 21 %; MCH 27.2 pg (25.0-35.0); MCHC 31.2 g/dL (31.0-37.0); MCV 87.2 fL (80.0-100.0); Mean Platelet Volume 8.4; Monocytes # (A) 0.2 k/uL (0-1.0); Monocytes % (A) 4 %; Neutrophils # (A) 4.8 k/uL (1.3-7.7); Neutrophils % (A) 69 %; Platelet Count 205 k/uL (150-450); RBC 4.26 m/uL (3.80-5.40); RDW 16.5 % (11.5-15.5); WBC 6.9 k/uL (3.8-10.6)
[2020-07-19 21:20] LABS: INR 0.9 (<1.2); Prothrombin Time 9.5 sec (9.0-12.0)
[2020-07-19] MEDS ORDERED: ONDANSETRON 4 MG/2 ML VIAL IVP STA (21:23)
[2020-07-19 21:27] LABS: Albumin 3.9 g/dL (3.5-5.0); Calcium 8.9 mg/dL (8.4-10.2); Magnesium 2.1 mg/dL (1.6-2.3); Potassium 4.5 mmol/L (3.5-5.1); Total Bilirubin 0.3 mg/dL (0.2-1.3); Total Protein 7.4 g/dL (6.3-8.2)
[2020-07-19] MEDS ORDERED: SODIUM CHLORIDE 0.9% 500 ML 500 ML IV ONE (21:31)
[2020-07-19] MEDS ORDERED: LORazepam 1 MG TAB PO STA ×2 (22:17→22:35)
[2020-07-19 22:51] VITALS: BP 115/72; PULSE 80; RESP 16; TEMP 98
== END 2020-07-19 22:35 | disposition home or self-care (01) ==
LOC: EC 19:58
DX: F41.9 Anxiety disorder, unspecified (principal); E11.65 Type 2 diabetes mellitus with hyperglycemia; E86.0 Dehydration; E11.40 Type 2 diabetes mellitus with diabetic neuropathy, unspecified; I10 Essential (primary) hypertension; G89.29 Other chronic pain; M54.5 Low back pain; M19.90 Unspecified osteoarthritis, unspecified site; E03.9 Hypothyroidism, unspecified; F32.9 Major depressive disorder, single episode, unspecified; I25.2 Old myocardial infarction; Z79.02 Long term (current) use of antithrombotics/antiplatelets; Z79.4 Long term (current) use of insulin; Z79.890 Hormone replacement therapy; Z79.899 Other long term (current) drug therapy; Z79.1 Long term (current) use of non-steroidal anti-inflammatories (NSAID); Z91.041 Radiographic dye allergy status; Z91.048 Other nonmedicinal substance allergy status; Z88.8 Allergy status to other drugs, medicaments and biological substances; Z88.6 Allergy status to analgesic agent; Z88.1 Allergy status to other antibiotic agents; Z87.891 Personal history of nicotine dependence; Z86.711 Personal history of pulmonary embolism; Z86.718 Personal history of other venous thrombosis and embolism
CPT/HCPCS: 36415; 93005; 80053; 83735; 84100; 84484; 85025; 85610; 85730; 99284; 96374; 96375; 96376; J2060; J2405

== ENCOUNTER 2020-11-02 10:29 | Emergency (ER) | payer MEDICARE, BC ==
[2020-11-02 10:55] VITALS: RESP 18; TEMP 98
[2020-11-02] MEDS ORDERED: SODIUM CHLORIDE 0.9% 1,000 ML IV STA (11:19)
[2020-11-02] MEDS ORDERED: ONDANSETRON 4 MG/2 ML VIAL IVP STA (11:19)
[2020-11-02] MEDS ORDERED: LORazepam 2 MG/ML INJ IV STA (11:37)
[2020-11-02 11:38] LABS: Anisocytosis Slight; Basophils % (A) 0 %; Eosinophils # (A) 0.2 k/uL (0-0.7); Eosinophils % (A) 2 %; HCT 40.3 % (34.0-46.0); HGB 13.1 gm/dL (11.4-16.0); Lymphocytes # (A) 1.2 k/uL (1.0-4.8); Lymphocytes % (A) 16 %; MCH 28.5 pg (25.0-35.0); MCHC 32.6 g/dL (31.0-37.0); MCV 87.3 fL (80.0-100.0); Mean Platelet Volume 8.5; Monocytes # (A) 0.2 k/uL (0-1.0); Monocytes % (A) 3 %; Neutrophils # (A) 5.6 k/uL (1.3-7.7); Neutrophils % (A) 77 %; Platelet Count 178 k/uL (150-450); RBC 4.62 m/uL (3.80-5.40); RDW 17.3 % (11.5-15.5); WBC 7.3 k/uL (3.8-10.6)
[2020-11-02 11:53] LABS: Albumin 4.3 g/dL (3.5-5.0); Calcium 8.9 mg/dL (8.4-10.2); Potassium 3.8 mmol/L (3.5-5.1); Total Bilirubin 0.7 mg/dL (0.2-1.3); Total Protein 7.8 g/dL (6.3-8.2)
--- NOTE | 2020-11-02 12:20 | XR ---
EXAMINATION TYPE: XR chest 2V DATE OF EXAM: 11/02/2020 COMPARISON: 01/28/2020 HISTORY: 65-year-old female with cough TECHNIQUE: AP and lateral views FINDINGS: Heart limits of normal in size. Hazy bibasilar opacities, left greater than right. On vasculature wit hin normal limits. No pleural effusion. IMPRESSION: Hazy bibasilar opacities, left greater than right. Suspect some component of a prominent epicardial f at pad. Developing infiltrates difficult to exclude.
--- NOTE | 2020-11-02 12:22 | ED ---
General Adult HPI - General Chief complaint: Recheck/Abnormal Lab/Rx Stated complaint: N/V Fever/cough Time Seen by Provider: 11/02/20 11:05 Source: patient Mode of arrival: wheelchair Limitations: physical limitation - History of Present Illness Initial comments: 65-year-old female presents to emergency Department with a chief complaint of nausea vomiting diarrhea body aches and anxiety. Patient does report history of anxiety has occasional panic attacks. Patient reports this feels like her typical panic attack because she has not been able to take her oral anxiolytics due to her multiple episodes of nausea vomiting. States her symptoms began 2 days ago. States she takes narcotic medications for chronic back pain but ran out of the medication 3 days ago. States she is waiting for her primary care doctor to prescribe her new ones. Patient denies any abdominal pain, urinary or vaginal symptoms. Denies any chest pain or shortness of breath. Denies any fevers or chills. Denies any headaches, blurry vision, lightheadedness or dizziness, one-sided weakness or paresthesias. - Related Data Home Medications Medication Instructions Recorded Confirmed ALPRAZolam [Xanax] 2 mg PO TID 07/07/19 09/22/20 Clopidogrel [Plavix] 75 mg PO DAILY 07/07/19 09/22/20 DULoxetine HCL [Cymbalta] 60 mg PO BID 07/07/19 09/22/20 Furosemide [Lasix] 80 mg PO DAILY 07/07/19 09/22/20 INSULIN LISPRO (HumaLOG) [humaLOG] See Protocol SQ ACHS 07/07/19 09/22/20 Insulin Glargine [Lantus] 44 unit SQ HS 07/07/19 09/22/20 Insulin Glargine [Lantus] 50 unit SQ QAM 07/07/19 09/22/20 Levocetirizine Dihydrochloride 5 mg PO HS 07/07/19 09/22/20 [Xyzal] Levothyroxine Sodium [Synthroid] 200 mcg PO DAILY 07/07/19 09/22/20 Metoprolol Tartrate [Lopressor] 25 mg PO BID 07/07/19 09/22/20 Montelukast [Singulair] 10 mg PO DAILY 07/07/19 09/22/20 Nitroglycerin Sl Tabs [Nitrostat] 0.4 mg SUBLINGUAL Q5M PRN 07/07/19 09/22/20 oxyCODONE-APAP 10-325MG [Percocet 1 tab PO TID PRN 07/07/19 09/22/20 10-325 mg] traZODone HCL [Desyrel] 200 mg PO HS 07/07/19 09/22/20 lisinopriL [Zestril] 10 mg PO DAILY 01/28/20 09/22/20 Celecoxib [CeleBREX] 200 mg PO QAM 05/05/20 09/22/20 Previous Rx's Medication Instructions Recorded Aspirin 81 mg PO DAILY 90 Days #90 chew 01/30/20 Ezetimibe [Zetia] 10 mg PO DAILY 30 Days #30 tab 01/30/20 Allergies Allergy/AdvReac Type Severity Reaction Status Date / Time Iodinated Contrast Media Allergy Rash/Hives Verified 11/02/20 10:55 Iodine and Iodide Containing Allergy Rash/Hives Verified 11/02/20 10:55 Produc liraglutide [From Saxenda] AdvReac Unknown Nausea & Verified 11/02/20 10:55 Vomiting NSAIDS (Non-Steroidal AdvReac Unknown Nausea & Verified 11/02/20 10:55 Anti-Inflamma Vomiting aspirin AdvReac Nausea & Verified 11/02/20 10:55 Vomiting with high doses azithromycin AdvReac Vomiting Verified 11/02/20 10:55 naproxen [From Naprosyn] AdvReac Nausea & Verified 11/02/20 10:55 Vomiting Review of Systems ROS Statement: Those systems with pertinent positive or pertinent negative responses have been documented in the HPI. ROS Other: All systems not noted in ROS Statement are negative. Past Medical History Past Medical History: Blood Disorder, Diabetes Mellitus, Deep Vein Thrombosis (DVT), GERD/Reflux, Hyperlipidemia, Hypertension, Myocardial Infarction ([place]), Osteoarthritis (OA), Pneumonia, Pulmonary Embolus (PE), Thyroid Disorder Additional Past Medical History / Comment(s): Factor 5 leiden, DVT L leg, PE L lung, MIs x 5, palpitations, IDDM type II, neuropathy bilateral legs/feet, lymphedema L leg, charcot syndrome L foot, chronic low back pain, bilateral sciatica, bronchitis, anemia, hypothyroid, UTI, IBS, sinus problems, worsening tremors, just finished antibiotic for cough Last Myocardial Infarction Date:: January 2020 History of Any Multi-Drug Resistant Organisms: None Reported Past Surgical History: Appendectomy, Cholecystectomy, Heart Catheterization With Stent, Hernia Repair, Hysterectomy, Tonsillectomy Additional Past Surgical History / Comment(s): Bilateral salpingectomy, bilate ral oophorectomy, abdominal hernia surgeries, L foot fracture with surgery- hardware since removed, bilateral cataract removals, epidural injections with last on 01/20/20 lumbar Past Anesthesia/Blood Transfusion Reactions: No Reported Reaction Additional Past Anesthesia/Blood Transfusion Reaction / Comment(s): Pt has received blood in past without reaction. Date of Last Stent Placement:: January 2020 Past Psychological History: Anxiety, Depression Smoking Status: Former smoker Past Alcohol Use History: None Reported Past Drug Use History: None Reported - Past Family History Mother Additional Family Medical History / Comment(s): Mother was a smoker. Father Additional Family Medical History / Comment(s): Lung cancer. Father was a smok er. Son(s) Family Medical History: Deep Vein Thrombosis (DVT) General Exam Limitations: physical limitation General appearance: alert, in no apparent distress, anxious, obese Head exam: Present: atraumatic, normocephalic, normal inspection Eye exam: Present: normal appearance, PERRL, EOMI Pupils: Present: normal accommodation ENT exam: Present: normal exam, normal oropharynx, mucous membranes moist Neck exam: Present: normal inspection, full ROM. Absent: tenderness Respiratory exam: Present: normal lung sounds bilaterally. Absent: respiratory distress, wheezes, rales, rhonchi, stridor, chest wall tenderness, accessory muscle use Cardiovascular Exam: Present: regular rate, normal rhythm, normal heart sounds GI/Abdominal exam: Present: soft. Absent: distended, tenderness, guarding Extremities exam: Present: normal inspection, full ROM, normal capillary refill. Absent: tenderness, pedal edema, joint swelling Back exam: Present: normal inspection, full ROM. Absent: tenderness, CVA tenderness (R), CVA tenderness (L) Neurological exam: Present: alert, oriented X3, normal gait Psychiatric exam: Present: normal affect, anxious Skin exam: Present: warm, dry, intact, normal color Course Vital Signs 11/02/20 11/02/20 10:49 13:32 Temperature 98.0 F Pulse Rate 71 80 Respiratory 18 18 Rate Blood Pressure 134/82 128/84 O2 Sat by Pulse 97 98 Oximetry Medical Decision Making - Medical Decision Making 65-year-old female with history of anxiety presents to the emergency department with multiple chief complaints. On physical examination, patient is very anxious and tremulous. Patient was given IV fluids, antiemetics and anxiolytics. CBC CMP is unremarkable. Coronavirus negative. Chest x-ray reveals hazy basilar capacities, possible pericardial fat pad. She is diabetic and has a blood glucose of 293 at this moment. I suspect the nausea vomiting or diarrhea are secondary to opiate withdrawal from her narcotic medications. Which is now causing her a panic attack because she is not able to take her anxiolytics from all the vomiting. On reevaluation, patient reports improvement in symptoms. She is not as tremulous anymore. Denies any homicidal, suicidal thoughts or ideations. Advised the patient to follow up with a primary care physician. I offered [facility] for outpatient prescription, she declined. Strict return parameters were thoroughly discussed patient was understanding and agreeable. Case discussed with Dr. Chamberlain. - Lab Data Result diagrams: 11/02/20 11:30 11/02/20 11:30 Lab Results 11/02/20 11/02/20 11/02/20 Range/Units 11:30 11:30 11:30 WBC 7.3 (3.8-10.6) k/uL RBC 4.62 (3.80-5.40) m/uL Hgb 13.1 (11.4-16.0) gm/dL Hct 40.3 (34.0-46.0) % MCV 87.3 (80.0-100.0) fL MCH 28.5 (25.0-35.0) pg MCHC 32.6 (31.0-37.0) g/dL RDW 17.3 H (11.5-15.5) % Plt Count 178 (150-450) k/uL MPV 8.5 Neutrophils % 77 % Lymphocytes % 16 % Monocytes % 3 % Eosinophils % 2 % Basophils % 0 % Neutrophils # 5.6 (1.3-7.7) k/uL Lymphocytes # 1.2 (1.0-4.8) k/uL Monocytes # 0.2 (0-1.0) k/uL Eosinophils # 0.2 (0-0.7) k/uL Basophils # 0.0 (0-0.2) k/uL Anisocytosis Slight Sodium 136 L (137-145) mmol/L Potassium 3.8 (3.5-5.1) mmol/L Chloride 98 (98-107) mmol/L Carbon Dioxide 30 (22-30) mmol/L Anion Gap 8 mmol/L BUN 11 (7-17) mg/dL Creatinine 0.98 (0.52-1.04) mg/dL Est GFR (CKD-EPI)AfAm 70 (>60 ml/min/1.73 sqM) Est GFR (CKD-EPI)NonAf 60 (>60 ml/min/1.73 sqM) Glucose 283 H (74-99) mg/dL Calcium 8.9 (8.4-10.2) mg/dL Total Bilirubin 0.7 (0.2-1.3) mg/dL AST 37 H (14-36) U/L ALT 17 (4-34) U/L Alkaline Phosphatase 156 H (38-126) U/L Total Protein 7.8 (6.3-8.2) g/dL Albumin 4.3 (3.5-5.0) g/dL Coronavirus (PCR) Not Detected (Not Detectd) Disposition Clinical Impression: Opiate withdrawal, Acute anxiety, Hyperglycemia Disposition: HOME SELF-CARE Condition: Stable Instructions (If sedation given, give patient instructions): Opioid Withdrawal (ED) Additional Instructions: Please return to the Emergency Department if symptoms worsen or any other concerns. Is patient prescribed a controlled substance at d/c from ED?: No Referrals: Venkatesh Segundo MD [Primary Care Provider] - 1-2 days Time of Disposition: 13:19
[2020-11-02] MEDS ORDERED: METOCLOPRAMIDE 5 MG/ML 2 ML VIAL IVP STA (12:24)
[2020-11-02] MEDS ORDERED: diphenhydrAMINE 50 MG/ML 1 ML VIAL IVP STA (12:25)
[2020-11-02] MEDS ORDERED: HYDROcodone/APAP 10-325MG 1 EACH TAB PO ONE (12:53)
[2020-11-02 13:33] VITALS: BP 128/84; PULSE 80
== END 2020-11-02 13:36 | disposition home or self-care (01) ==
LOC: EC 10:29
DX: F11.23 Opioid dependence with withdrawal (principal); E11.65 Type 2 diabetes mellitus with hyperglycemia; F41.9 Anxiety disorder, unspecified; F32.9 Major depressive disorder, single episode, unspecified; E03.9 Hypothyroidism, unspecified; K21.9 Gastro-esophageal reflux disease without esophagitis; E11.40 Type 2 diabetes mellitus with diabetic neuropathy, unspecified; E78.5 Hyperlipidemia, unspecified; I25.2 Old myocardial infarction; Z20.822 Contact with and (suspected) exposure to COVID-19; Z79.01 Long term (current) use of anticoagulants; Z79.899 Other long term (current) drug therapy; Z79.4 Long term (current) use of insulin; Z79.890 Hormone replacement therapy; Z88.0 Allergy status to penicillin; Z88.6 Allergy status to analgesic agent; Z91.041 Radiographic dye allergy status; Z87.891 Personal history of nicotine dependence; Z90.49 Acquired absence of other specified parts of digestive tract; Z90.710 Acquired absence of both cervix and uterus; Z95.5 Presence of coronary angioplasty implant and graft; Z90.89 Acquired absence of other organs; Z98.42 Cataract extraction status, left eye; Z98.41 Cataract extraction status, right eye; Z90.722 Acquired absence of ovaries, bilateral
CPT/HCPCS: 36415; 93005; 80053; 85025; 87635; 71046; 99284; 96374; 96375 ×3; 96361 ×2; J2060; J1200; J2765; J2405

== ENCOUNTER → 2020-11-29 | Outpatient (CLI) | payer MEDICARE, BC ==
[2020-11-29 12:30] VITALS: BP 126/79; PULSE 77; RESP 20; TEMP 98.2
--- NOTE | 2020-11-29 12:40 | P.PN ---
Subjective Progress Note Date: 11/29/20 Rosalinda is a 65-year-old female presenting today for follow-up secondary to chronic low back pain. She reports that she is having a lot of back pain with radiation into her legs. She feels that her legs are weak. She has pain in her buttocks and upper thighs going down to below the knee. She has not had any recent procedures. She's been seeing her primary care doctor for pain medication. She reports her VAS today is about 8 out of 10. She feels that previous injections have helped significantly. She is currently on Plavix, she reports that she has 3 stents in her heart. She also reports that she is able to stop the Plavix. I discussed her pain medications in detail, it appears that her primary doctor has recently started her on a beeper no morphine patch which she has not gone yet. Had questions about it. She is still using Percocet as well as Xanax 2 mg 3 times a day. I discussed that this is a very poor combination for anxiety and pain as an increased risk of respiratory depression and . Review of Systems: Denies any New chest pain, short of breath, Nausea/vomitting, abdominal pain, bowel or bladder incontinence, or any overt new neurologic symptoms in his upper or lower extremities. Objective - Vital Signs Vital signs: Vital Signs Temp 98.2 F 11/29/20 12:22 Pulse 77 11/29/20 12:22 Resp 20 11/29/20 12:22 BP 126/79 11/29/20 12:22 Pulse Ox 95 11/29/20 12:22 - Exam General: Awake and alert oriented 3 mild distress Respiratory exam: No audible wheezing no accessory muscle usage Cardiovascular exam: regular rate, palpable bilateral pulses, no lower extremity edema Abdominal exam: No distention nontender to palpation Cervical spine: Normal alignment, range of motion preserved Lumbar spine: Obese, atrophy of the paraspinal muscles, limited range of motion in all planes. Straight leg raise positive bilaterally. right lower extremity quadricep and hamstring 45 compared to 5 out of 5 in the left Sacroiliac joints: Nontender to palpation, VIJAY is negative, Gaenselon negative Neuro exam: Normal sensation in bilateral upper extremities, deep tendon reflexes are 2+ bilateral upper extremities. Normal sensation in bilateral lower extremities. Deep tendon reflexes are + bilateral patella and 2+ bilateral Achilles Psych exam: cooperative, flat affect Assessment and Plan Assessment: #1 lumbar spinal stenosis #2 neurogenic claudication #3 lumbar radiculopathy #4 coronary artery disease on Plavix Plan: I discussed with the patient that the current pain medication she is using are dangerous to her overall health. I would suggest she start to be binaural Roshni and discontinue the Percocet as per her primary care doctor. I also explained that using benzodiazepines with this regimen may significantly increase the risk of respiratory depression and . I've explained that she has stenosis L4-L5 per her MRI. She may benefit from an L4 5 epidural injection but she did stop her Plavix for 7 days. We will try to get confirmation that it's okay to stop the medication before proceeding. Once we are able to get that from her egg tester we will schedule her for an L4-L5 epidural steroid injection. I have spent 31 minutes on patient care today. The time was used to review the medical records including relevant urine studies and Prescription history (MAPs), review of the available imaging, evaluation and examination of the patient, coordination of care with the medical staff and if applicable referring physicians, as well as creation of the medical record. maps are reviewed and discussed with the patient in detail. No medications were dispensed today
== END ==
LOC: PNWHC3 11:47
PROVIDERS: ATTEND Hospitalist
DX: M48.062 Spinal stenosis, lumbar region with neurogenic claudication (principal); M54.16 Radiculopathy, lumbar region; Z79.02 Long term (current) use of antithrombotics/antiplatelets; I25.10 Atherosclerotic heart disease of native coronary artery without angina pectoris; Z87.891 Personal history of nicotine dependence
CPT/HCPCS: 99211

== ENCOUNTER 2021-03-29 06:22 | Day surgery (SDC) | payer MEDICARE, BC ==
[2021-03-24 11:00] VITALS: BMI 41.5
[~2021-03-29 06:22] MED LIST changes: -IV FLUID CONTINUATION 1,000 ML IV ONE; -LIDOCAINE 1% (10MG/ML) FOR IV START INTRADERMA ONE; -MIDAZOLAM 2 MG/2 ML VIAL ONE; -ROPIVACAINE 5MG/ML 20ML VIAL ONE; -fentaNYL (PF) 50 MCG/ML 2 ML AMP ONE; -methylPREDNISolone ACETATE 40 MG/ML 1 ML VIAL ONE
[2021-03-29 07:07] VITALS: TEMP 97.4
[2021-03-29 07:20] LABS: Glucose,Whole Blood 138 mg/dL (75-99)
[2021-03-29] MEDS ORDERED: LIDOCAINE 1% (10MG/ML) FOR IV START INTRADERMA ONE (07:24)
[2021-03-29] MEDS ORDERED: fentaNYL (PF) 50 MCG/ML 2 ML AMP ONE (08:19)
[2021-03-29] MEDS ORDERED: MIDAZOLAM 2 MG/2 ML VIAL ONE (08:19)
[2021-03-29] MEDS ORDERED: ROPIVACAINE 5MG/ML 20ML VIAL ONE (08:19)
[2021-03-29] MEDS ORDERED: TRIAMCINOLONE ACETONIDE 40 MG/ML 1 ML VIAL ONE (08:19)
--- NOTE | 2021-03-29 08:40 | P.PCN ---
Date of Procedure: 03/29/21 Surgeon: Afshan Leavitt Pathology: none sent Condition: stable Disposition: PACU Description of Procedure: PREOPERATIVE DIAGNOSIS: 1-Lumbar stenosis 2- Lumber Degenerative Disc Diseases. POSTOPERATIVE DIAGNOSIS: 1-Lumbar stenosis 2-Lumbar Degenerative Disc Diseases PROCEDURE 1. Lumbar epidural steroid injection under fluoroscopic guidance at the L4-5 level in the left paramedian approach. 2. Lumbar epidurogram. ANESTHESIA: Local with 1% lidocaine; and IV moderate conscious sedation with Versed and fentanyl The patient is ALLERGIC to IVP dye. She held her Plavix for 7 days before the procedure. EBL: Minimal PROCEDURE INDICATION: The patient with low back pain and radiculitis symptoms unresponsive to conservative treatment. Fluoroscopy was used to optimize visualization of the needle placement and to maximize safety. PROCEDURE DESCRIPTION / TECHNIQUE: The patient was seen and identified in the preoperative area. Risks, benefits, complications including but not limited to infections ,bleeding ,allergic reaction to the medications ,nerve damage and not complete pain relief , and alternatives were discussed with the patient. The patient agreed to proceed with the procedure and signed the consent. IV was started, and vital signs were stable. Patient was taken to the OR and time out was completed. The patient was placed in the prone position on procedure table and a pillow was placed under the abdomen to reduce lumbar lordosis. The lumbosacral area was prepped and draped in the usual sterile fashion with ChloraPrep.Patient was closely monitored during the procedure. Conscious sedation was used during the procedure to decrease patients anxiety. Vital signs were monitered during the entire procedure. Using anterior-posterior fluoroscopy, the L4-5 interlaminar space was identified and the skin over this site was marked and then infiltrated with 1% lidocaine subcutaneously. Subsequently, a 18-gauge 6 inch Tuohy epidural needle was inserted and advanced toward the epidural space using the Loss of resistance to air technique and guided by AP and lateral fluoroscopy. The epidural space was found at about 11.5 cm from skin. No contrast dye was used during this procedure. After negative aspiration, a 7 ml mixture containing 40 mg of Kenalog and 4 ml of preservative free Normal Saline, and 2 ml of preservative free ropivacaine 0.5% solution was injected and a washout of epidurogram was seen. Needle was withdrawn intact, skin was cleansed, and bandages were applied. patient tolerated procedure well and was transferred to PACU in stable condition.A copy of the needle placement picture was saved to the fluoroscopy machine. COMPLICATIONS: None DISPOSITION / PLANS: The patient was placed in a supine position and transferred to the recovery area in a stable condition for observation. There was no evidence of lower extremity motor or sensory deficit after the procedure. Patient was discharged from the recovery room after meeting discharge criteria. Home discharge instructions were given to the patient by the staff. The patient was reexamined prior to discharge. The patient will schedule a follow up in the clinic in 2-4 weeks.
[2021-03-29] MEDS ORDERED: LACTATED RINGERS 1,000 ML IV ONE ×2 (08:41)
[2021-03-29 09:00] VITALS: BP 105/72; PULSE 63; RESP 20
[2021-03-29] MEDS ORDERED: IV FLUID CONTINUATION 450 ML IV ONE (09:10)
--- NOTE | 2021-03-29 09:25 | FL ---
Fluoroscopy History: LESI WITH PAIN SERVICES lesi in pain 9 secs fl
== END 2021-03-29 09:17 | disposition home or self-care (01) ==
LOC: ORPAIN 06:22
PROVIDERS: ATTEND Anesthesiology
DX: M51.36 Other intervertebral disc degeneration, lumbar region (principal); M48.061 Spinal stenosis, lumbar region without neurogenic claudication
CPT/HCPCS: 62323; J2250; J3301; J3010; J2795; 99152

== ENCOUNTER 2021-04-19 06:32 | Day surgery (SDC) | payer MEDICARE, BC ==
[2021-04-14 15:12] VITALS: BMI 41.5
[2021-04-19 07:07] VITALS: RESP 16
[2021-04-19] MEDS ORDERED: LIDOCAINE 1% (10MG/ML) FOR IV START INTRADERMA ONE (07:07)
[2021-04-19 07:09] LABS: Glucose,Whole Blood 190 mg/dL (75-99)
[2021-04-19] MEDS ORDERED: fentaNYL (PF) 50 MCG/ML 2 ML AMP ONE (07:30)
[2021-04-19] MEDS ORDERED: ROPIVACAINE 5MG/ML 20ML VIAL ONE (07:30)
[2021-04-19] MEDS ORDERED: MIDAZOLAM 2 MG/2 ML VIAL ONE (07:30)
[2021-04-19] MEDS ORDERED: TRIAMCINOLONE ACETONIDE 40 MG/ML 1 ML VIAL ONE (07:30)
--- NOTE | 2021-04-19 07:46 | P.PCN ---
Date of Procedure: 04/19/21 Surgeon: Afshan Leavitt Pathology: none sent Condition: stable Disposition: PACU Description of Procedure: PREOPERATIVE DIAGNOSIS: 1-Lumbar stenosis 2- Lumber Degenerative Disc Diseases. POSTOPERATIVE DIAGNOSIS: 1-Lumbar stenosis 2-Lumbar Degenerative Disc Diseases PROCEDURE 1. Lumbar epidural steroid injection under fluoroscopic guidance at the L4-5 level in the left paramedian approach. 2. Lumbar epidurogram. ANESTHESIA: Local with 1% lidocaine; and IV moderate conscious sedation with Versed and fentanyl The patient is ALLERGIC to IVP dye. She held her Plavix for 7 days before the procedure. EBL: Minimal PROCEDURE INDICATION: The patient with low back pain and radiculitis symptoms unresponsive to conservative treatment. Fluoroscopy was used to optimize visualization of the needle placement and to maximize safety. PROCEDURE DESCRIPTION / TECHNIQUE: The patient was seen and identified in the preoperative area. Risks, benefits, complications including but not limited to infections ,bleeding ,allergic reaction to the medications ,nerve damage and not complete pain relief , and alternatives were discussed with the patient. The patient agreed to proceed with the procedure and signed the consent. IV was started, and vital signs were stable. Patient was taken to the OR and time out was completed. The patient was placed in the prone position on procedure table and a pillow was placed under the abdomen to reduce lumbar lordosis. The lumbosacral area was prepped and draped in the usual sterile fashion with ChloraPrep.Patient was closely monitored during the procedure. Conscious sedation was used during the procedure to decrease patients anxiety. Vital signs were monitered during the entire procedure. Using anterior-posterior fluoroscopy, the L4-5 interlaminar space was identified and the skin over this site was marked and then infiltrated with 1% lidocaine subcutaneously. Subsequently, a 18-gauge 6 inch Tuohy epidural needle was inserted and advanced toward the epidural space using the Loss of resistance to air technique and guided by AP and lateral fluoroscopy. The epidural space was found at about 11.5 cm from skin. No contrast dye was used during this procedure. After negative aspiration, a 7 ml mixture containing 40 mg of Kenalog and 4 ml of preservative free Normal Saline, and 2 ml of preservative free ropivacaine 0.5% solution was injected and a washout of epidurogram was seen. Needle was withdrawn intact, skin was cleansed, and bandages were applied. patient tolerated procedure well and was transferred to PACU in stable condition.A copy of the needle placement picture was saved to the fluoroscopy machine. COMPLICATIONS: None DISPOSITION / PLANS: The patient was placed in a supine position and transferred to the recovery area in a stable condition for observation. There was no evidence of lower extremity motor or sensory deficit after the procedure. Patient was discharged from the recovery room after meeting discharge criteria. Home discharge instructions were given to the patient by the staff. The patient was reexamined prior to discharge. The patient will schedule a follow up in the clinic in 2-4 weeks.
[2021-04-19] MEDS ORDERED: IV FLUID CONTINUATION 775 ML IV ONE (07:47)
[2021-04-19 08:04] VITALS: BP 106/63; PULSE 68
--- NOTE | 2021-04-19 11:11 | FL ---
Fluoroscopy HISTORY: Pain 9 seconds fluoroscopy time supplied to the referring clinician. 1 intraoperative C-arm images docume nt the procedure. See dictated report from anesthesia.
== END 2021-04-19 08:23 | disposition home or self-care (01) ==
LOC: ORPAIN 06:32
PROVIDERS: ATTEND Anesthesiology
DX: M48.061 Spinal stenosis, lumbar region without neurogenic claudication (principal); M51.36 Other intervertebral disc degeneration, lumbar region
CPT/HCPCS: 62323; J2250; J3301; J3010; J2795; 99152

== ENCOUNTER 2021-06-09 11:18 | Inpatient (IN) | payer MEDICARE, BC ==
[2021-06-09] MEDS ORDERED: ONDANSETRON 4 MG/2 ML VIAL IVP STA (13:32)
[2021-06-09] MEDS ORDERED: KETOROLAC 15 MG/ML 1 ML VIAL IVP STA (13:32)
[2021-06-09 13:37] LABS: Basophils % (A) 0 %; Eosinophils # (A) 0.3 k/uL (0-0.7); Eosinophils % (A) 3 %; HCT 37.3 % (34.0-46.0); HGB 11.6 gm/dL (11.4-16.0); Hypochromasia Slight; Lymphocytes # (A) 1.5 k/uL (1.0-4.8); Lymphocytes % (A) 15 %; MCH 29.6 pg (25.0-35.0); MCHC 31.1 g/dL (31.0-37.0); MCV 95.3 fL (80.0-100.0); Mean Platelet Volume 8.5; Monocytes # (A) 0.3 k/uL (0-1.0); Monocytes % (A) 3 %; Neutrophils # (A) 7.6 k/uL (1.3-7.7); Neutrophils % (A) 78 %; Platelet Count 202 k/uL (150-450); RBC 3.91 m/uL (3.80-5.40); RDW 15.9 % (11.5-15.5); WBC 9.7 k/uL (3.8-10.6)
--- NOTE | 2021-06-09 13:42 | ED ---
Weakness HPI - General Chief complaint: Weakness Stated complaint: Chest pain/aches/R knee pain Source: patient, family Mode of arrival: wheelchair Limitations: no limitations - History of Present Illness Initial comments: 66 year old female past history of chronic back pain on narcotics him a DVT and PE, high blood pressure who presents to the emergency department with altered mental status, right knee pain and chest pain. Daughter is at bedside and helps provide history. States that over the past couple weeks the patient has been having a progressive decline. She has been more weak and confused. She normally and relates with a walker however this has been difficult for the patient. She had a fall and injured her right knee. Due to her chronic back pain and new right knee pain she hasn't been getting out of bed. She followed up with her primary care doctor who increased her dose of Percocets to 4 times daily from 3 times daily. Also placed her on a Suboxone patch 2 weeks ago. Patient states that she has been wearing the patch however it makes her feel ex tremely nauseated. Denies vomiting. No other new medication changes. She used to see pain management however reports that as of recently Dr. Segundo has been managing her pain med. He also admits to substernal chest pain. Does have history of previous cardiac stents. Follows with Dr. Yung. She denies shortness of breath. No abdominal pain. Reports to her same chronic back pain without new injuries. No recent head trauma. No other alleviating, precipitating or modifying factors - Related Data Home Medications Medication Instructions Recorded Confirmed ALPRAZolam [Xanax] 2 mg PO TID 07/07/19 06/09/21 Clopidogrel [Plavix] 75 mg PO DAILY 07/07/19 06/09/21 DULoxetine HCL [Cymbalta] 60 mg PO BID 07/07/19 06/09/21 Levocetirizine Dihydrochloride 5 mg PO DAILY 07/07/19 06/09/21 [Xyzal] Levothyroxine Sodium [Synthroid] 200 mcg PO DAILY 07/07/19 06/09/21 Metoprolol Tartrate [Lopressor] 25 mg PO BID 07/07/19 06/09/21 Montelukast [Singulair] 10 mg PO DAILY 07/07/19 06/09/21 oxyCODONE-APAP 10-325MG [Percocet 1 tab PO QID 07/07/19 06/09/21 10-325 mg] traZODone HCL [Desyrel] 100 mg PO BID 07/07/19 06/09/21 lisinopriL [Zestril] 10 mg PO DAILY 01/28/20 06/09/21 Aspirin EC [Ecotrin Low Dose] 81 mg PO DAILY 06/09/21 06/09/21 Buprenorphine [Butrans 10 MCG/HOUR] 1 patch TRANSDERM SA 06/09/21 06/09/21 Fluticasone Nasal [place] [Flonase 1 spr EA NOSTRIL BID 06/09/21 06/09/21 Nasal [place]] Furosemide [Lasix] 80 mg PO DAILY 06/09/21 06/09/21 Insulin Glargine,Hum.rec.anlog 40 units SQ BID 06/09/21 06/09/21 [Lantus Solostar Pen] Insulin Lispro [humaLOG Kwikpen] See Protocol SQ AC-TID 06/09/21 06/09/21 Previous Rx's Medication Instructions Recorded Ezetimibe [Zetia] 10 mg PO DAILY 30 Days #30 tab 01/30/20 Allergies Allergy/AdvReac Type Severity Reaction Status Date / Time Iodinated Contrast Media Allergy Rash/Hives Verified 06/09/21 11:37 Iodine and Iodide Containing Allergy Rash/Hives Verified 06/09/21 11:37 Produc liraglutide [From Saxenda] AdvReac Unknown Nausea & Verified 06/09/21 11:37 Vomiting NSAIDS (Non-Steroidal AdvReac Unknown Nausea & Verified 06/09/21 11:37 Anti-Inflamma Vomiting aspirin AdvReac Nausea & Verified 06/09/21 11:37 Vomiting with high doses azithromycin AdvReac Vomiting Verified 06/09/21 11:37 naproxen [From Naprosyn] AdvReac Nausea & Verified 06/09/21 11:37 Vomiting Review of Systems ROS Statement: Those systems with pertinent positive or pertinent negative responses have been documented in the HPI. ROS Other: All systems not noted in ROS Statement are negative. Past Medical History Past Medical History: Blood Disorder, Diabetes Mellitus, Deep Vein Thrombosis (DVT), GERD/Reflux, Hyperlipidemia, Hypertension, Myocardial Infarction (ID), Osteoarthritis (OA), Pneumonia, Pulmonary Embolus (PE), Thyroid Disorder Additional Past Medical History / Comment(s): Factor 5 leiden, DVT L leg, PE L lung, MIs x 5, palpitations, IDDM type II, neuropathy bilateral legs/feet, lymphedema L leg, charcot syndrome L foot, chronic low back pain, bilateral sciatica, bronchitis, anemia, hypothyroid, UTI, IBS, sinus problems, worsening tremors, just finished antibiotic for cough, recently "stomach shivering inside" plans to f/u with pcp Last Myocardial Infarction Date:: January 2020 History of Any Multi-Drug Resistant Organisms: None Reported Past Surgical History: Appendectomy, Cholecystectomy, Heart Catheterization With Stent, Hernia Repair, Hysterectomy, Tonsillectomy Additional Past Surgical History / Comment(s): Bilateral salpingectomy, bilateral oophorectomy, abdominal hernia surgeries, L foot fracture with surgery-hardware since removed, bilateral cataract removals, epidural injections with last on 01/20/20 lumbar, LAST PROCEDURE 04/19/21 Past Anesthesia/Blood Transfusion Reactions: No Reported Reaction Additional Past Anesthesia/Blood Transfusion Reaction / Comment(s): Pt has received blood in past without reaction. Date of Last Stent Placement:: January 2020 Past Psychological History: Anxiety, Depression Smoking Status: Former smoker Past Alcohol Use History: None Reported Past Drug Use History: None Reported - Past Family History Mother Additional Family Medical History / Comment(s): Mother was a smoker. Father Family Medical History: Cancer Additional Family Medical History / Comment(s): Lung cancer. Father was a smoker. Son(s) Family Medical History: Deep Vein Thrombosis (DVT) General Exam Limitations: no limitations Course Vital Signs 06/09/21 06/09/21 06/09/21 11:33 13:30 18:54 Temperature 97.7 F Pulse Rate 81 74 90 Pulse Rate [ Pulse Oximetery ] Respiratory 12 18 18 Rate Blood Pressure 97/53 121/61 117/60 Blood Pressure [Right Arm] O2 Sat by Pulse 92 L 96 98 Oximetry 06/09/21 20:00 Temperature 97.5 F L Pulse Rate Pulse Rate [ 89 Pulse Oximetery ] Respiratory Rate Blood Pressure Blood Pressure 129/73 [Right Arm] O2 Sat by Pulse 96 Oximetry EKG Findings - EKG Comments: EKG Findings:: EKG demonstrates significant baseline artifact - sinus us aflutter. Ventricular rate of 79. OK interval 98. QRS 88. QTC of 408. AT depression lead II, III. Medical Decision Making - Medical Decision Making Upon arrival patient was placed into room 9. A thorough history and physical exam was performed. Patient is wearing a Suboxone patch. Does admit that she takes her Percocets while wearing the Suboxone patch. The Suboxone patch is removed. IV is established laboratory studies are conducted. D-dimer is elevated at 0.93. Sodium 131. Creatinine elevated at 1.92. Glucose 285. TSH greater than 100. Free T4 0.23. Urinalysis demonstrates occasional bacteria. Covid not detected. Patient was given 1 g of Rocephin, 15 mg of Toradol and 4 mg of Zofran. Initially started the patient on 75 mL of saline per hour. X- rays performed of the patient's right knee due to her report of fall and knee pain. Uncertain acute fracture dislocation however there is mild to moderate narrowing of the medial tib-fib the compartments and moderate-sized suprapatellar joint effusion. Chest x-ray demonstrates cardiomegaly without acute cardio pulmonary process. CT of the brain demonstrates degenerative and nonspecific white matter changes most typical of remote ischemia. Because of elevated d-dimer with history of PE she is sent over for pulmonary perfusion imaging which demonstrates low evidence for acute PE. I did recommend admission to the hospital and spoke with Dr. Elmore who agreed to admit the patient. Patient is currently awaiting a bed on the floor - Lab Data Result diagrams: 06/09/21 13:20 06/09/21 13:20 Lab Results 06/09/21 06/09/21 06/09/21 Range/Units 13:20 13:20 13:20 WBC 9.7 (3.8-10.6) k/uL RBC 3.91 (3.80-5.40) m/uL Hgb 11.6 (11.4-16.0) gm/dL Hct 37.3 (34.0-46.0) % MCV 95.3 (80.0-100.0) fL MCH 29.6 (25.0-35.0) pg MCHC 31.1 (31.0-37.0) g/dL RDW 15.9 H (11.5-15.5) % Plt Count 202 (150-450) k/uL MPV 8.5 Neutrophils % 78 % Lymphocytes % 15 % Monocytes % 3 % Eosinophils % 3 % Basophils % 0 % Neutrophils # 7.6 (1.3-7.7) k/uL Lymphocytes # 1.5 (1.0-4.8) k/uL Monocytes # 0.3 (0-1.0) k/uL Eosinophils # 0.3 (0-0.7) k/uL Basophils # 0.0 (0-0.2) k/uL Hypochromasia Slight PT 10.0 (9.0-12.0) sec INR 0.9 (<1.2) APTT 23.8 (22.0-30.0) sec D-Dimer 0.93 H (<0.60) mg/L FEU Sodium (137-145) mmol/L Potassium (3.5-5.1) mmol/L Chloride (98-107) mmol/L Carbon Dioxide (22-30) mmol/L Anion Gap mmol/L BUN (7-17) mg/dL Creatinine (0.52-1.04) mg/dL Est GFR (CKD-EPI)AfAm (>60 ml/min/1.73 sqM) Est GFR (CKD-EPI)NonAf (>60 ml/min/1.73 sqM) Glucose (74-99) mg/dL Plasma Lactic Acid Lloyd (0.7-2.0) mmol/L Calcium (8.4-10.2) mg/dL Magnesium (1.6-2.3) mg/dL Total Bilirubin (0.2-1.3) mg/dL AST (14-36) U/L ALT (4-34) U/L Alkaline Phosphatase (38-126) U/L Ammonia (<30) umol/L Troponin I (0.000-0.034) ng/mL NT-Pro-B Natriuret Pep pg/mL Total Protein (6.3-8.2) g/dL Albumin (3.5-5.0) g/dL TSH (0.465-4.680) mIU/L Free T4 (0.78-2.19) ng/dL Urine Color Yellow Urine Appearance Cloudy H (Clear) Urine pH 5.5 (5.0-8.0) Ur Specific [place] 1.015 (1.001-1.035) Urine Protein Negative (Negative) Urine Glucose (UA) Negative (Negative) Urine Ketones Negative (Negative) Urine Blood Negative (Negative) Urine Nitrite Negative (Negative) Urine Bilirubin Negative (Negative) Urine Urobilinogen <2.0 (<2.0) mg/dL Ur Leukocyte Esterase Negative (Negative) Urine RBC 4 (0-5) /hpf Urine WBC 2 (0-5) /hpf Ur Squamous Epith Cells 3 (0-4) /hpf Urine Bacteria Occasional H (None) /hpf Hyaline Casts 3 H (0-2) /lpf Urine Mucus Rare H (None) /hpf Coronavirus (PCR) (Not Detectd) 06/09/21 06/09/21 06/09/21 Range/Units 13:20 13:20 13:20 WBC (3.8-10.6) k/uL RBC (3.80-5.40) m/uL Hgb (11.4-16.0) gm/dL Hct (34.0-46.0) % MCV (80.0-100.0) fL MCH (25.0-35.0) pg MCHC (31.0-37.0) g/dL RDW (11.5-15.5) % Plt Count (150-450) k/uL MPV Neutrophils % % Lymphocytes % % Monocytes % % Eosinophils % % Basophils % % Neutrophils # (1.3-7.7) k/uL Lymphocytes # (1.0-4.8) k/uL Monocytes # (0-1.0) k/uL Eosinophils # (0-0.7) k/uL Basophils # (0-0.2) k/uL Hypochromasia PT (9.0-12.0) sec INR (<1.2) APTT (22.0-30.0) sec D-Dimer (<0.60) mg/L FEU Sodium 131 L (137-145) mmol/L Potassium 5.2 H (3.5-5.1) mmol/L Chloride 96 L (98-107) mmol/L Carbon Dioxide 27 (22-30) mmol/L Anion Gap 8 mmol/L BUN 37 H (7-17) mg/dL Creatinine 1.92 H (0.52-1.04) mg/dL Est GFR (CKD-EPI)AfAm 31 (>60 ml/min/1.73 sqM) Est GFR (CKD-EPI)NonAf 27 (>60 ml/min/1.73 sqM) Glucose 285 H (74-99) mg/dL Plasma Lactic Acid Lloyd 1.6 (0.7-2.0) mmol/L Calcium 8.5 (8.4-10.2) mg/dL Magnesium 2.5 H (1.6-2.3) mg/dL Total Bilirubin 0.4 (0.2-1.3) mg/dL AST 24 (14-36) U/L ALT 11 (4-34) U/L Alkaline Phosphatase 143 H (38-126) U/L Ammonia <9 (<30) umol/L Troponin I <0.012 (0.000-0.034) ng/mL NT-Pro-B Natriuret Pep pg/mL Total Protein 6.8 (6.3-8.2) g/dL Albumin 3.4 L (3.5-5.0) g/dL TSH >100.000 H (0.465-4.680) mIU/L Free T4 0.23 L (0.78-2.19) ng/dL Urine Color Urine Appearance (Clear) Urine pH (5.0-8.0) Ur Specific [place] (1.001-1.035) Urine Protein (Negative) Urine Glucose (UA) (Negative) Urine Ketones (Negative) Urine Blood (Negative) Urine Nitrite (Negative) Urine Bilirubin (Negative) Urine Urobilinogen (<2.0) mg/dL Ur Leukocyte Esterase (Negative) Urine RBC (0-5) /hpf Urine WBC (0-5) /hpf Ur Squamous Epith Cells (0-4) /hpf Urine Bacteria (None) /hpf Hyaline Casts (0-2) /lpf Urine Mucus (None) /hpf Coronavirus (PCR) (Not Detectd) 06/09/21 06/09/21 Range/Units 13:20 13:25 WBC (3.8-10.6) k/uL RBC (3.80-5.40) m/uL Hgb (11.4-16.0) gm/dL Hct (34.0-46.0) % MCV (80.0-100.0) fL MCH (25.0-35.0) pg MCHC (31.0-37.0) g/dL RDW (11.5-15.5) % Plt Count (150-450) k/uL MPV Neutrophils % % Lymphocytes % % Monocytes % % Eosinophils % % Basophils % % Neutrophils # (1.3-7.7) k/uL Lymphocytes # (1.0-4.8) k/uL Monocytes # (0-1.0) k/uL Eosinophils # (0-0.7) k/uL Basophils # (0-0.2) k/uL Hypochromasia PT (9.0-12.0) sec INR (<1.2) APTT (22.0-30.0) sec D-Dimer (<0.60) mg/L FEU Sodium (137-145) mmol/L Potassium (3.5-5.1) mmol/L Chloride (98-107) mmol/L Carbon Dioxide (22-30) mmol/L Anion Gap mmol/L BUN (7-17) mg/dL Creatinine (0.52-1.04) mg/dL Est GFR (CKD-EPI)AfAm (>60 ml/min/1.73 sqM) Est GFR (CKD-EPI)NonAf (>60 ml/min/1.73 sqM) Glucose (74-99) mg/dL Plasma Lactic Acid Lloyd (0.7-2.0) mmol/L Calcium (8.4-10.2) mg/dL Magnesium (1.6-2.3) mg/dL Total Bilirubin (0.2-1.3) mg/dL AST (14-36) U/L ALT (4-34) U/L Alkaline Phosphatase (38-126) U/L Ammonia (<30) umol/L Troponin I (0.000-0.034) ng/mL NT-Pro-B Natriuret Pep 43 pg/mL Total Protein (6.3-8.2) g/dL Albumin (3.5-5.0) g/dL TSH (0.465-4.680) mIU/L Free T4 (0.78-2.19) ng/dL Urine Color Urine Appearance (Clear) Urine pH (5.0-8.0) Ur Specific [place] (1.001-1.035) Urine Protein (Negative) Urine Glucose (UA) (Negative) Urine Ketones (Negative) Urine Blood (Negative) Urine Nitrite (Negative) Urine Bilirubin (Negative) Urine Urobilinogen (<2.0) mg/dL Ur Leukocyte Esterase (Negative) Urine RBC (0-5) /hpf Urine WBC (0-5) /hpf Ur Squamous Epith Cells (0-4) /hpf Urine Bacteria (None) /hpf Hyaline Casts (0-2) /lpf Urine Mucus (None) /hpf Coronavirus (PCR) Not Detected (Not Detectd) Disposition Clinical Impression: Acute encephalopathy, Medication reaction, LIAM (acute kidney injury), Abnormal urinalysis, Hypothyroid Disposition: ADMITTED IP TO THIS [facility] Condition: Serious Is patient prescribed a controlled substance at d/c from ED?: No Decision to Admit Reason: Admit from EC Decision Date: 06/09/21 Decision Time: 15:17
[2021-06-09 13:43] LABS: Lactic Acid, Venous 1.6 mmol/L (0.7-2.0)
[2021-06-09 13:44] LABS: ALT 11 U/L (4-34); AST 24 U/L (14-36); African American GFR (CKD) 31 (>60 ml/min/1.73 sqM); Albumin 3.4 g/dL (3.5-5.0); Alkaline Phosphatase 143 U/L (38-126); Anion Gap 8 mmol/L; Appearance,Urine Cloudy (Clear); Bacteria,Urine Occasional /hpf; Bilirubin,Urine Negative (Negative); Blood Urea Nitrogen 37 mg/dL (7-17); Blood,Urine Negative (Negative); Calcium 8.5 mg/dL (8.4-10.2); Carbon Dioxide 27 mmol/L (22-30); Chloride 96 mmol/L (98-107); Color,Urine Yellow; Glucose 285 mg/dL (74-99); Glucose,Urine (UA) Negative (Negative); Hyaline Casts,Urine 3 /lpf (0-2); Ketones,Urine Negative (Negative); Leukocyte Esterase,Urine Negative (Negative); Magnesium 2.5 mg/dL (1.6-2.3); Mucus,Urine Rare /hpf; Nitrite,Urine Negative (Negative); Non-African American GFR(CKD) 27 (>60 ml/min/1.73 sqM); PH, Urine 5.5 (5.0-8.0); Potassium 5.2 mmol/L (3.5-5.1); Protein,Urine Negative (Negative); RBC,Urine 4 /hpf (0-5); Sodium 131 mmol/L (137-145); Specific Gravity,Urine 1.015 (1.001-1.035); Squamous Epithelial Cell,Urine 3 /hpf (0-4); Total Bilirubin 0.4 mg/dL (0.2-1.3); Total Protein 6.8 g/dL (6.3-8.2); Urobilinogen,Urine <2.0 mg/dL (<2.0); WBC,Urine 2 /hpf (0-5)
[2021-06-09 13:48] LABS: INR 0.9 (<1.2); Partial Thromboplastin Time 23.8 sec (22.0-30.0)
--- NOTE | 2021-06-09 13:50 | XR ---
EXAMINATION TYPE: XR chest 2V DATE OF EXAM: 06/09/2021 COMPARISON: Chest x-ray November 02, 2020 HISTORY: Fall injury with chest pain TECHNIQUE: Frontal and lateral views of the chest are obtained. FINDINGS: There is mild chronic parenchymal changes bilaterally without suspicious focal air space o pacity, pleural effusion, or pneumothorax seen. Cardiomegaly is redemonstrated. The osseous structu res remain intact. IMPRESSION: Cardiomegaly without acute pulmonary process currently.
--- NOTE | 2021-06-09 13:52 | XR ---
EXAMINATION TYPE: XR knee complete RT DATE OF EXAM: 06/09/2021 CLINICAL HISTORY: Fall injury with pain TECHNIQUE: Three views of the right knee are obtained. COMPARISON: None. FINDINGS: There is no acute fracture/dislocation evident in right knee. Mild to moderate narrowing m edial tibiofemoral compartment. There is curvilinear spur anterior superior patellar distal quadricep s tendon attachment . Suspect moderate sized suprapatellar joint effusion. Mild diffuse subcutaneous edema is seen. IMPRESSION: There is no acute fracture or dislocation in the right knee.
[2021-06-09] MEDS ORDERED: cefTRIAXone IN SWFI 1,000 MG/10 ML SYRINGE IVP STA (14:09)
[2021-06-09 14:51] LABS: T4, Free (Free Thyroxine) 0.23 ng/dL (0.78-2.19)
--- NOTE | 2021-06-09 14:56 | CT ---
EXAMINATION TYPE: CT brain wo con DATE OF EXAM: 06/09/2021 COMPARISON: None HISTORY: confusion, vertigo CT DLP: 1099.4 mGycm Automated exposure control for dose reduction was used. FINDINGS: Mild to moderate generalized degenerative change of the greater frontal lobe component. No midline sh ift or mass effect. No acute hemorrhage. Craniocervical junction maintained. Sella turcica has a norm al appearance. Orbits are symmetric. No significant changes of sinusitis. Low-attenuation white matte r nonspecific. IMPRESSION: DEGENERATIVE AND NONSPECIFIC WHITE MATTER CHANGES MOST TYPICAL OF REMOTE ISCHEMIA.
[2021-06-09] MEDS ORDERED: NALOXONE 0.4 MG/ML 1 ML VIAL IV PRN (15:25)
[2021-06-09] MEDS ORDERED: ACETAMINOPHEN TAB 325 MG TAB PO PRN (15:27)
--- NOTE | 2021-06-09 15:29 | NM ---
EXAMINATION TYPE: NM pul vent and perfuse DATE OF EXAM: 06/09/2021 COMPARISON: Chest x-ray earlier today. HISTORY: History of DVT with hypoxia and elevated d-dimer TECHNIQUE: Utilizing inhalation of 68.8 mCi Tc 99m DTPA aerosol and intravenous injection of 5.0 mCi of Tc 99m MAA, ventilation and perfusion images are acquired post injection in multiple projections. FINDINGS: Normal radiotracer distribution is noted in the lungs. There is no evidence of mismatched defects. IMPRESSION: Low scintigraphic evidence for acute pulmonary embolism.
[2021-06-09 16:01] LABS: Glucose,Whole Blood 286 mg/dL (75-99)
[2021-06-09 18:11] LABS: Glucose,Whole Blood 347 mg/dL (75-99)
[2021-06-09 18:15] LABS: T4, Free (Free Thyroxine) 0.23 ng/dL (0.78-2.19)
[2021-06-09] MEDS: INSULIN ASPART (NovoLOG) 100 UNIT/ML VIAL SQ SCH (18:36)
[2021-06-09] MEDS: ALPRAZolam 1 MG TAB PO PRN (18:36)
--- NOTE | 2021-06-09 19:16 | P.HPIM ---
<Eduardo Cadena - Last Filed: 06/09/21 18:59> History of Present Illness H&P Date: 06/09/21 History of Presenting Illness: Patient is a very pleasant 66-year-old female with a past medical history of CAD with previous [place], hypertension, hyperlipidemia, factor V Leyden deficiency no longer on anticoagulation, previous PEs and DVT, insulin-dependent diabetes mellitus, hypothyroidism, osteoarthritis, and chronic back and right knee pain. Patient presented to the emergency department with a chief complaint of alteration in mental status and complaints of right knee and chest pain. Patient's Daughter at bedside reported patient has a long-standing history of opioid dependence and abuse and recently had medications changed by her PCP secondary to her reports of increased chronic back pain and right knee pain. Patient's daughter reports 2 weeks ago, PCP increased Suboxone patches and Percocet dose in attempts to help control patient's chronic pain. Patient's daughter reports over the past 2 weeks she has seen her mother progressively decline and abuse this medication by taking more than what is prescribed for her. Patient's daughter also reports patient is taking Xanax and Klonopin at home. She reports her mother constantly cries out in pain and states that she i s unable to walk or get out of bed. Daughter reports patient is not even able to stand to shower or bathe or care for herself. She states "it's like she is watching her mother slowly because of her drug addiction. " Patient's daughter states that her mother has not even been taking medications prescribed to her unless they are for pain or anxiety.. In the emergency department, patient was seen and fully evaluated. An EKG was completed revealing normal sinus rhythm at 79 bpm with no noted T-wave or ST abnormalities showing no signs of acute ischemia. Troponin negative at less than 0.012. Chest x-ray revealing previously noted cardiomegaly and negative for acute pulmonary process. X-ray right knee negative for acute fracture or dislocation showing mild diffuse subcutaneous edema and suspect moderate sized suprapatellar joint effusion. CT head showing degenerative and nonspecific white matter changes most typical of remote ischemia. VQ scan showing low scintigraphic evidence for acute PE. Lab findings revealed TSH greater than 100.000 and free T4 of 0.23., Hyponatremia with sodium of 131, hyperkalemia with potassium of 5.2, acute kidney injury with BUN 37, creatinine 1.92, and GFR of 27 with baseline creatinine of 0.9. Patient admits to not taking her levothyroxine or Plavix. Patient also admits that pain is not controlled even by taking extra medications at home. Patient states she no longer wants Suboxone, she would like more opioids. Patient counseled on hao ysubstance abuse and risks of not taking other medications as prescribed. Patient reports right knee and chest pain denies having any other complaints including headache, lightheadedness, dizziness, palpitations, shortness of breath, abdominal pain, nausea, vomiting, or experiencing any numbness/ti ngling/weakness in extremities. Upon assessment patient was alert to person, place, and time. Patient very anxious and agitated at this time. Patient was also reportedly noted by RN to hide Percocets and Xanax in her belongings in attempts to take upstairs to floor with her. RN reportedly sent these medications home with patient's daughter. Review of systems: Pertinent positives and negatives as discussed in HPI, a complete review of systems was performed and all other systems are negative. Physical exam: Vital signs reviewed and stable. General: Nontoxic, no distress and appears stated age. Obese disheveled appearance. Derm: Skin warm and dry, normal coloration for ethnicity. Head: Atraumatic, normocephalic and symmetric. Eyes: EOMs intact, no lid lag, and anicteric sclera Mouth: no lip lesions, mucus membranes moist Cardiovascular: regular rate and rhythm with normal S1S2, no murmur, positive posterior tibial pulses bilaterally, and cap refill < 2 seconds. Lungs: Respirations even, regular, and unlabored on room air. Lungs CTA bilaterally, no rhonchi, no rales, no wheezing, and no accessory muscle usage. Abdominal: soft, nontender to palpation, no guarding, no appreciable organom egaly Ext: ROM intact. No gross muscle atrophy, no edema, no contractures Neuro: Speech clear, face symmetrical and CN II-XII grossly intact with no noted focal neuro deficits Psych: Alert and oriented to person, place, time, and situation. Anxious and agitated. Assessment and Plan of Care: Acute metabolic encephalopathy secondary to opioid and benzodiazepine abuse Weakness, failure to perform necessary activities of daily living such as bathing Noncompliance with medications -Hold Suboxone -We will continue Percocet 4 times daily for chronic pain recommend weaning off of this medication. -We will reduce patient's Xanax to 1 mg 3 times daily as needed for anxiety. -Consult to social work/case management for possible placement in rehab upon discharge. -Consult to psychiatry for competency evaluation. Severe hypothyroidism secondary to noncompliance with medication -Resume Synthroid, patient will need to follow up for long-term monitoring/management of thyroid function and adjustments to medications as needed. -Patient educated on importance of medication compliance and risks of continued noncompliance, up to and including . Acute kidney injury Dehydration -Hold nephrotoxic medications such as Lasix and lisinopril. -Gentle fluid hydration. -Tinny close monitoring with repeat a.m. labs. Other chronic past medical history of CAD with previous [place], hypertension, hyperlipidemia, factor V Leyden deficiency no longer on anticoagulation, previous PEs and DVT, insulin-dependent diabetes mellitus, hypothyroidism, osteoarthritis, and chronic back and right knee pain. The patient is admitted with an anticipated greater than 2 midnight stay for evaluation of acute metabolic encephalopathy and severe hypothyroidism with acute kidney injury.. CODE STATUS: Full code DVT prophylaxis: Heparin Discussed with: Patient, patient's daughter and RN Anticipated discharge date: Clinical course to determine Anticipated discharge place: Clinical course to determine A total of 45 minutes was spent on the care of this complex patient more than 50% of the time was spent in counseling and care coordination. Past Medical History Past Medical History: Blood Disorder, Diabetes Mellitus, Deep Vein Thrombosis (DVT), GERD/Reflux, Hyperlipidemia, Hypertension, Myocardial Infarction ([place]), Osteoarthritis (OA), Pneumonia, Pulmonary Embolus (PE), Thyroid Disorder Additional Past Medical History / Comment(s): Factor 5 leiden, DVT L leg, PE L lung, MIs x 5, palpitations, IDDM type II, neuropathy bilateral legs/feet, lymphedema L leg, charcot syndrome L foot, chronic low back pain, bilateral sciatica, bronchitis, anemia, hypothyroid, UTI, IBS, sinus problems, worsening tremors, just finished antibiotic for cough, recently "stomach shivering inside" plans to f/u with pcp Last Myocardial Infarction Date:: January 2020 History of Any Multi-Drug Resistant Organisms: None Reported Past Surgical History: Appendectomy, Cholecystectomy, Heart Catheterization With Stent, Hernia Repair, Hysterectomy, Tonsillectomy Additional Past Surgical History / Comment(s): Bilateral salpingectomy, bilateral oophorectomy, abdominal hernia surgeries, L foot fracture with surgery-hardware since removed, bilateral cataract removals, epidural injections with last on 01/20/20 lumbar, LAST PROCEDURE 04/19/21 Past Anesthesia/Blood Transfusion Reactions: No Reported Reaction Additional Past Anesthesia/Blood Transfusion Reaction / Comment(s): Pt has received blood in past without reaction. Date of Last Stent Placement:: January 2020 Past Psychological History: Anxiety, Depression Smoking Status: Former smoker Past Alcohol Use History: None Reported Past Drug Use History: None Reported - Past Family History Mother Additional Family Medical History / Comment(s): Mother was a smoker. Father Family Medical History: Cancer Additional Family Medical History / Comment(s): Lung cancer. Father was a smoker. Son(s) Family Medical History: Deep Vein Thrombosis (DVT) Medications and Allergies Home Medications Medication Instructions Recorded Confirmed Type ALPRAZolam [Xanax] 2 mg PO TID 07/07/19 06/09/21 History Clopidogrel [Plavix] 75 mg PO DAILY 07/07/19 06/09/21 History DULoxetine HCL [Cymbalta] 60 mg PO BID 07/07/19 06/09/21 History Levocetirizine Dihydrochloride 5 mg PO DAILY 07/07/19 06/09/21 History [Xyzal] Levothyroxine Sodium [Synthroid] 200 mcg PO DAILY 07/07/19 06/09/21 History Metoprolol Tartrate [Lopressor] 25 mg PO BID 07/07/19 06/09/21 History Montelukast [Singulair] 10 mg PO DAILY 07/07/19 06/09/21 History oxyCODONE-APAP 10-325MG [Percocet 1 tab PO QID 07/07/19 06/09/21 History 10-325 mg] traZODone HCL [Desyrel] 100 mg PO BID 07/07/19 06/09/21 History lisinopriL [Zestril] 10 mg PO DAILY 01/28/20 06/09/21 History Ezetimibe [Zetia] 10 mg PO DAILY 30 Days #30 tab 01/30/20 06/09/21 Rx Aspirin EC [Ecotrin Low Dose] 81 mg PO DAILY 06/09/21 06/09/21 History Buprenorphine [Butrans 10 MCG/HOUR] 1 patch TRANSDERM SA 06/09/21 06/09/21 History Fluticasone Nasal [place] [Flonase 1 spr EA NOSTRIL BID 06/09/21 06/09/21 History Nasal [place]] Furosemide [Lasix] 80 mg PO DAILY 06/09/21 06/09/21 History Insulin Glargine,Hum.rec.anlog 40 units SQ BID 06/09/21 06/09/21 History [Lantus Solostar Pen] Insulin Lispro [humaLOG Kwikpen] See Protocol SQ AC-TID 06/09/21 06/09/21 History Allergies Allergy/AdvReac Type Severity Reaction Status Date / Time Iodinated Contrast Media Allergy Rash/Hives Verified 06/09/21 11:37 Iodine and Iodide Containing Allergy Rash/Hives Verified 06/09/21 11:37 Produc liraglutide [From Saxenda] AdvReac Unknown Nausea & Verified 06/09/21 11:37 Vomiting NSAIDS (Non-Steroidal AdvReac Unknown Nausea & Verified 06/09/21 11:37 Anti-Inflamma Vomiting aspirin AdvReac Nausea & Verified 06/09/21 11:37 Vomiting with high doses azithromycin AdvReac Vomiting Verified 06/09/21 11:37 naproxen [From Naprosyn] AdvReac Nausea & Verified 06/09/21 11:37 Vomiting Physical Exam Vitals: Vital Signs Temp Pulse Resp BP Pulse Ox 06/09/21 13:30 74 18 121/61 96 06/09/21 11:33 97.7 F 81 12 97/53 92 L Intake and Output 06/09/21 06/09/21 06/09/21 06:59 14:59 22:59 Other: Weight 113.398 kg Results CBC & Chem 7: 06/09/21 13:20 06/09/21 13:20 Labs: Abnormal Lab Results - Last 24 Hours (Table) 06/09/21 06/09/21 06/09/21 Range/Units 13:20 13:20 13:20 RDW 15.9 H (11.5-15.5) % D-Dimer 0.93 H (<0.60) mg/L FEU Sodium (137-145) mmol/L Potassium (3.5-5.1) mmol/L Chloride (98-107) mmol/L BUN (7-17) mg/dL Creatinine (0.52-1.04) mg/dL Glucose (74-99) mg/dL POC Glucose (mg/dL) (75-99) mg/dL Magnesium (1.6-2.3) mg/dL Alkaline Phosphatase (38-126) U/L Albumin (3.5-5.0) g/dL TSH (0.465-4.680) mIU/L Free T4 (0.78-2.19) ng/dL Urine Appearance Cloudy H (Clear) Urine Bacteria Occasional H (None) /hpf Hyaline Casts 3 H (0-2) /lpf Urine Mucus Rare H (None) /hpf 06/09/21 06/09/21 Range/Units 13:20 15:59 RDW (11.5-15.5) % D-Dimer (<0.60) mg/L FEU Sodium 131 L (137-145) mmol/L Potassium 5.2 H (3.5-5.1) mmol/L Chloride 96 L (98-107) mmol/L BUN 37 H (7-17) mg/dL Creatinine 1.92 H (0.52-1.04) mg/dL Glucose 285 H (74-99) mg/dL POC Glucose (mg/dL) 286 H (75-99) mg/dL Magnesium 2.5 H (1.6-2.3) mg/dL Alkaline Phosphatase 143 H (38-126) U/L Albumin 3.4 L (3.5-5.0) g/dL TSH >100.000 H (0.465-4.680) mIU/L Free T4 0.23 L (0.78-2.19) ng/dL Urine Appearance (Clear) Urine Bacteria (None) /hpf Hyaline Casts (0-2) /lpf Urine Mucus (None) /hpf <Lina Elmore - Last Filed: 06/09/21 21:49> History of Present Illness Patient seen and examined independently. Patient was also seen by Eduardo Cadena NP and case was discussed. I am in agreement with subjective, physical exam, assessment and plan as written above and amended below. C/O pain and difficult dealing with things. had a long discussion that she needs to decrease her pain medication consumption General: non toxic, no distress, appears at stated age Derm: warm, dry Head: atraumatic, normocephalic, symmetric Eyes: EOMI, no lid lag, anicteric sclera Mouth: no lip lesion, mucus membranes moist Cardiovascular: S1S2 reg, no murmur, positive posterior tibial pulse bilateral, Lungs: Decreased bs bilateral, no rhonchi, no rales , no accessory muscle use Abdominal: soft, nontender to palpation, no guarding, no appreciable organomegaly Ext: no gross muscle atrophy, no edema, no contractures Neuro: CN II-XI grossly intact, no focal neuro deficits Psych: Alert, oriented, upset and crying Physical Exam Osteopathic Statement: *. No significant issues noted on an osteopathic structural exam other than those noted in the History and Physical/Consult. Vitals: Vital Signs Temp Pulse Pulse Resp BP BP Pulse Ox 06/09/21 20:00 97.5 F L 89 129/73 96 06/09/21 18:54 90 18 117/60 98 06/09/21 13:30 74 18 121/61 96 06/09/21 11:33 97.7 F 81 12 97/53 92 L Intake and Output 06/09/21 06/09/21 06/09/21 06:59 14:59 22:59 Other: Weight 113.398 kg Results CBC & Chem 7: 06/09/21 13:20 06/09/21 13:20 Labs: Abnormal Lab Results - Last 24 Hours (Table) 06/09/21 06/09/21 06/09/21 Range/Units 13:20 13:20 13:20 RDW 15.9 H (11.5-15.5) % D-Dimer 0.93 H (<0.60) mg/L FEU Sodium (137-145) mmol/L Potassium (3.5-5.1) mmol/L Chloride (98-107) mmol/L BUN (7-17) mg/dL Creatinine (0.52-1.04) mg/dL Glucose (74-99) mg/dL POC Glucose (mg/dL) (75-99) mg/dL Magnesium (1.6-2.3) mg/dL Alkaline Phosphatase (38-126) U/L Albumin (3.5-5.0) g/dL TSH (0.465-4.680) mIU/L Free T4 (0.78-2.19) ng/dL Urine Appearance Cloudy H (Clear) Urine Bacteria Occasional H (None) /hpf Hyaline Casts 3 H (0-2) /lpf Urine Mucus Rare H (None) /hpf 06/09/21 06/09/21 06/09/21 Range/Units 13:20 15:59 17:03 RDW (11.5-15.5) % D-Dimer (<0.60) mg/L FEU Sodium 131 L (137-145) mmol/L Potassium 5.2 H (3.5-5.1) mmol/L Chloride 96 L (98-107) mmol/L BUN 37 H (7-17) mg/dL Creatinine 1.92 H (0.52-1.04) mg/dL Glucose 285 H (74-99) mg/dL POC Glucose (mg/dL) 286 H (75-99) mg/dL Magnesium 2.5 H (1.6-2.3) mg/dL Alkaline Phosphatase 143 H (38-126) U/L Albumin 3.4 L (3.5-5.0) g/dL TSH >100.000 H >100.000 H (0.465-4.680) mIU/L Free T4 0.23 L 0.23 L (0.78-2.19) ng/dL Urine Appearance (Clear) Urine Bacteria (None) /hpf Hyaline Casts (0-2) /lpf Urine Mucus (None) /hpf 06/09/21 Range/Units 18:10 RDW (11.5-15.5) % D-Dimer (<0.60) mg/L FEU Sodium (137-145) mmol/L Potassium (3.5-5.1) mmol/L Chloride (98-107) mmol/L BUN (7-17) mg/dL Creatinine (0.52-1.04) mg/dL Glucose (74-99) mg/dL POC Glucose (mg/dL) 347 H (75-99) mg/dL Magnesium (1.6-2.3) mg/dL Alkaline Phosphatase (38-126) U/L Albumin (3.5-5.0) g/dL TSH (0.465-4.680) mIU/L Free T4 (0.78-2.19) ng/dL Urine Appearance (Clear) Urine Bacteria (None) /hpf Hyaline Casts (0-2) /lpf Urine Mucus (None) /hpf
[2021-06-09] MEDS: METOPROLOL TARTRATE 25 MG TAB PO SCH (20:52)
[2021-06-09] MEDS: traZODone HCL 100 MG TAB PO SCH (20:52)
[2021-06-09] MEDS: DULoxetine HCL 60 MG CAPSULE.DR PO SCH (20:52)
[2021-06-09] MEDS: oxyCODONE-APAP 10-325MG 1 EACH TAB PO SCH (20:52)
[2021-06-09] MEDS: HEPARIN SODIUM,PORCINE/PF 5,000 UNIT/0.5 ML SYRINGE SQ SCH (20:53)
[2021-06-10] MEDS: INSULIN ASPART (NovoLOG) 100 UNIT/ML VIAL SQ SCH ×5 (00:38→20:36)
[2021-06-10] MEDS: SODIUM CHLORIDE 0.9% 1,000 ML IV SCH ×3 (00:39→18:17)
[2021-06-10] MEDS: HEPARIN SODIUM,PORCINE/PF 5,000 UNIT/0.5 ML SYRINGE SQ SCH ×4 (00:45→23:10)
[2021-06-10] MEDS: INSULIN DETEMIR (LEVEMIR) 100 UNIT/ML SYR SQ SCH ×3 (00:56→20:37)
[2021-06-10] MEDS: ALPRAZolam 1 MG TAB PO PRN ×2 (03:02→20:42)
[2021-06-10] MEDS: LEVOTHYROXINE 100 MCG TAB PO SCH (05:49)
[2021-06-10 08:07] LABS: Glucose,Whole Blood 207 mg/dL (75-99)
[2021-06-10 08:45] LABS: Anisocytosis Slight; Basophils % (A) 0 %; Eosinophils # (A) 0.2 k/uL (0-0.7); Eosinophils % (A) 3 %; HCT 33.6 % (34.0-46.0); HGB 10.8 gm/dL (11.4-16.0); Lymphocytes # (A) 0.9 k/uL (1.0-4.8); Lymphocytes % (A) 11 %; MCH 30.4 pg (25.0-35.0); MCHC 32.1 g/dL (31.0-37.0); MCV 94.5 fL (80.0-100.0); Mean Platelet Volume 9.2; Monocytes # (A) 0.3 k/uL (0-1.0); Monocytes % (A) 3 %; Neutrophils # (A) 6.5 k/uL (1.3-7.7); Neutrophils % (A) 82 %; Platelet Count 209 k/uL (150-450); RBC 3.56 m/uL (3.80-5.40); RDW 16.2 % (11.5-15.5)
[2021-06-10] MEDS: traZODone HCL 100 MG TAB PO SCH ×2 (08:54→20:42)
[2021-06-10] MEDS: CLOPIDOGREL 75 MG TAB PO SCH (08:54)
[2021-06-10] MEDS: DULoxetine HCL 60 MG CAPSULE.DR PO SCH ×2 (08:54→20:42)
[2021-06-10] MEDS: METOPROLOL TARTRATE 25 MG TAB PO SCH ×2 (08:54→20:36)
[2021-06-10] MEDS: oxyCODONE-APAP 10-325MG 1 EACH TAB PO SCH ×4 (08:55→23:11)
[2021-06-10] MEDS: MONTELUKAST 10 MG TAB PO SCH (08:55)
[2021-06-10] MEDS: ASPIRIN 81 MG PO SCH (08:55)
[2021-06-10 11:33] LABS: African American GFR (CKD) 33.2 (60.0-200.0); Anion Gap 9.4 mmol/L (4.00-12.00); BUN/Creat Ratio 16.61 Ratio (12.00-20.00); Blood Urea Nitrogen 29.9 mg/dL (9.0-27.0); Calcium 8.2 mg/dL (8.7-10.3); Carbon Dioxide 27.6 mmol/L (21.6-31.8); Non-African American GFR(CKD) 28.6 (60.0-200.0); Potassium 5.3 mmol/L (3.5-5.5)
[2021-06-10] MEDS: EZETIMIBE 10 MG TAB PO SCH (11:33)
[2021-06-10 13:19] LABS: Glucose,Whole Blood 209 mg/dL (75-99)
--- NOTE | 2021-06-10 13:56 | P.CN ---
Psychiatric Consult - . Consult date: 06/10/21 Consult:: 06/10/21 12:48 IDENTIFYING DATA: This patient is a 66-year-old female who currently lives with her in the house has 3 kids and is unemployed. REASON FOR REFERRAL: Psychiatry was consulted for competency, polysubstance abuse and hypothyroidism. HISTORY OF PRESENT ILLNESS: The patient presented to the hospital with altered mental status right knee pain and chest pain. Patient was brought in by her daughter. Her daughter had stated in the ER the patient has been declining for the past 2 weeks and has been more weak and confused. Primary care physician increased dose of Percocet and Suboxone patch. Patient had a sodium level of 131 potassium of 5.2 creatinine of 1.92 and blood sugars were elevated. Patient had noted significant increase in her TSH greater than 103 T4 0.23. Nursing care patient states that she was initially very confused and falling asleep during assessment and also now has been asking to leave the hospital multiple times. Patient was seen at the bedside speaking on the phone and patient was agreeable to speak to law writer. She states that she was owning her doctor's office. She claims that she came in the hospital for "knee pain" and also states that her arthritis was acting up. She states that she is feeling good now wants to go home. She was fairly directable during conversation however was stubborn at times. She was appropriate during conversation and was alert and oriented 3. She knew the current president was. She had good attention span. She claims that she usually listens to the doctor's advice however states that she just wants to go home because she doesn't want to be in the hospital. She vaguely spoke about minor risks of leaving the hospital AGAINST MEDICAL ADVICE. She claims that she was not taking her thyroid medication because "pharmacy ran out of my pills". She states that her sleep is fine and her appetite is okay. At this time patient denies any suicidal or homical ideations, intent or plan. Patient denies any auditory, visual hallucinations and denies any paranoia or delusions. Patients admits to using no recreational drugs or cigarettes PAST PSYCHIATRIC HISTORY: Patient has a a history of anxiety and depression. She is currently on Xanax and Cymbalta. Patient denies any previous psychiatric hospitalizations. Patient denies any psychiatric outpatient follow-up. Patient denies any history of suicide attempts in the past. She states that she follows up with her PCP for her psychiatric medications. Past Medical History: Blood Disorder, Diabetes Mellitus, Deep Vein Thrombosis (DVT), GERD/Reflux, Hyperlipidemia, Hypertension, Myocardial Infarction ([place]), Osteoarthritis (OA), Pneumonia, Pulmonary Embolus (PE), Thyroid Disorder Additional Past Medical History / Comment(s): Factor 5 leiden, DVT L leg, PE L lung, MIs x 5, palpitations, IDDM type II, neuropathy bilateral legs/feet, lymphedema L leg, charcot syndrome L foot, chronic low back pain, bilateral sciatica, bronchitis, anemia, hypothyroid, UTI, IBS, sinus problems, worsening tremors, just finished antibiotic for cough, recently "stomach shivering inside" plans to f/u with pcp ALLERGIES: as per EMR. CHEMICAL DEPENDENCY HISTORY: as per HPI. FAMILY PSYCHIATRIC/SUBSTANCE USE HISTORY: denies SOCIAL HISTORY: Patient was born and raised in [place] and then states that she lives in [place] for a few years. She states that then she moved back to [place]. She claims that she currently lives with her in the house. They have 3 kids. She is currently unemployed. 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 MENTAL STATUS EXAM: General Appearance: Patient appears to be obese, stated age is alert, argumentative at times however was attempting to cooperate. Patient appears to have fair hygiene and grooming wearing hospital gown with fair eye contact. Behavior: Patient is calmly lying in bed without any agitated behavior. Speech: Patient's speech is fluent and nonpressured. Mood/Affect: Patient reports their mood is "ok", affect is congruent and constricted Suicidality/Homicidality: Patient denies having any suicidal or homicidal ideation intent or plan. Perceptions: Patient denies any visual hallucinations and denies any auditory hallucinations Though content/process: Focused on discharge. Goal oriented. Logical. Vague at times. Memory and concentration: AOX3, grossly intact for the purposes of this session. knows who the current president is. Can say days of the week backwards correctly Judgment and insight: limited IMPRESSIONS: Delirium likely secondary to multiple causes including opiates, benzodiazepines and severe thyroid disorder History of Depressive disorder and anxiety disorder PLAN: -At this time patient DOES NOT meet criteria for inpatient psychiatric admission. It appears that the delirium and altered mental status has improved significantly since admission. -Patient DOES have general decision making capacity at this time and can for the most part reason through and communicate/appreciate the risks, benefits and alternatives to treatment or going home AMA. -Delirium precautions recommended with patient including - avoiding use of narcotics and OVEN WORKER sedatives, limit anticholinergic medications when possible, frequent re-orientation, minimize use of restraints, open window shades during the day and close them at night -Would recommend the following medication changes/additions: Continue with treatment of thyroid disorder. Continue holding Suboxone and had discussion with patient about the risks of overdose or AMS and tolerance/abuse of mixing BZD with opiates. PAtient states that she would prefer to just be on xanax instead. Can continue Xanax 1 mg 3 times a day when necessary for anxiety. Consider titrating down patient's Percocet and switching to a non-opiate for pain management. Continue with Cymbalta 60 mg twice a day. changed trazodone to 100mg qhs for insomnia/mood -drug department worker to provide patient with outpatient mental health/psychiatry resources for appropriate follow up upon discharge -Labeling Strategist spoke with patient about substance abuse and the harmful effects on medical and mental health, patient verbally understood and agreed. -Communicated plan to patient's nurse -Psychiatry will sign off at this time -Please contact with any questions. 06/10/21 13:56
[2021-06-10 17:20] LABS: Glucose,Whole Blood 221 mg/dL (75-99)
--- NOTE | 2021-06-10 18:31 | P.PN ---
<Eduardo Cadena - Last Filed: 06/10/21 18:16> Subjective Progress Note Date: 06/10/21 Hospital course: Patient is a very pleasant 66-year-old female with a past medical history of CAD with previous [place], hypertension, hyperlipidemia, factor V Leyden deficiency no longer on anticoagulation, previous PEs and DVT, insulin-dependent diabetes mellitus, hypothyroidism, osteoarthritis, and chronic back and right knee pain. Patient presented to the emergency department with a chief complaint of alteration in mental status and complaints of right knee and chest pain. Patient's Daughter at bedside reported patient has a long-standing history of opioid dependence and abuse and recently had medications changed by her PCP secondary to her reports of increased chronic back pain and right knee pain. Patient's daughter reports 2 weeks ago, PCP increased Suboxone patches and Percocet dose in attempts to help control patient's chronic pain. Patient's daughter reports over the past 2 weeks she has seen her mother progressively decline and abuse this medication by taking more than what is prescribed for her. Patient's daughter also reports patient is taking Xanax and Klonopin at home. She reports her mother constantly cries out in pain and states that she is unable to walk or get out of bed. Daughter reports patient is not even able to stand to shower or bathe or care for herself. She states "it's like she is watching her mother slowly because of her drug addiction. " Patient's daughter states that her mother has not even been taking medications prescribed to her unless they are for pain or anxiety.. In the emergency department, patient was seen and fully evaluated. An EKG was completed revealing normal sinus rhythm at 79 bpm with no noted T-wave or ST abnormalities showing no signs of acute ischemia. Troponin negative at less than 0.012. Chest x-ray revealing previously noted cardiomegaly and negative for acute pulmonary process. X-ray right knee negative for acute fracture or dislocation showing mild diffuse subcutaneous edema and suspect moderate sized suprapatellar joint effusion. CT head showing degenerative and nonspecific white matter changes most typical of remote ischemia. VQ scan showing low scintigraphic evidence for acute PE. Lab findings revealed TSH greater than 100.000 and free T4 of 0.23., Hyponatremia with sodium of 131, hyperkalemia with potassium of 5.2, acute kidney injury with BUN 37, creatinine 1.92, and GFR of 27 with baseline creatinine of 0.9. Patient admits to not taking her levothyroxine or Plavix. Patient also admits that pain is not controlled even by taking extra medications at home. Patient states she no longer wants Suboxone, she would like more opioids. Patient counseled on polysubstance abuse and risks of not taking other medications as prescribed. Patient reports right knee and chest pain denies having any other complaints including headache, lightheadedness, dizziness, palpitations, shortness of breath, abdominal pain, nausea, vomiting, or experiencing any numbness/tingling/weakness in extremities. Upon assessment patient was alert to person, place, and time. Patient very anxious and agitated at this time. Patient was also reportedly noted by RN to hide Percocets and Xanax in her belongings in attempts to take upstairs to floor with her. RN reportedly sent these medications home with patient's daughter. 06/10/21: Patient seen and evaluated at bedside this morning. Patient had episodes of hypotension and lethargy overnight and was found to have blood pressure 80 systolic. Concerns that patient took personal medications in additi on to medications administered in hospital. This morning patient remains sleepy but easily arousable via verbal stimuli at this time and blood pressure has improved to 103/64. Awaiting psychiatry to evaluate. Had long discussion with patient's whom stated he is very concerned with the amount of medications patient is currently on and reports multiple failed attempts in the past to gain control and dispense her medications to her in attempts to ensure she does not misuse/abuse. Patient's reports the only time patient will get up and out of bed is if he is taking her to the doctor for more pain medications. Patient currently reports understanding of plan of care, she denie s misuse of her medications at this time. Renal function is slowly improving with BUN 29.9, creatinine 1.8, and GFR of 28.6 (as reported previously baseline creatinine 0.9). Patient to remain on gentle hydration with IV fluids and we will continue to hold nephrotoxic medications while awaiting for resolution of LIAM. Physical exam: Vital signs reviewed and stable. General: Nontoxic, no distress and appears stated age. Obese disheveled appearance. Derm: Skin warm and dry, normal coloration for ethnicity. Head: Atraumatic, normocephalic and symmetric. Eyes: EOMs intact, no lid lag, and anicteric sclera Mouth: no lip lesions, mucus membranes moist Cardiovascular: regular rate and rhythm with normal S1S2, no murmur, positive posterior tibial pulses bilaterally, and cap refill < 2 seconds. Lungs: Respirations even, regular, and unlabored on room air. Lungs CTA bilaterally, no rhonchi, no rales, no wheezing, and no accessory muscle usage. Abdominal: soft, nontender to palpation, no guarding, no appreciable organomegaly Ext: ROM intact. No gross muscle atrophy, no edema, no contractures Neuro: Speech clear, face symmetrical and CN II-XII grossly intact with no noted focal neuro deficits Psych: Alert and oriented to person, place, time, and situation. Assessment and Plan of Care: Acute metabolic encephalopathy secondary to opioid and benzodiazepine abuse Weakness, failure to perform necessary activities of daily living such as bathing Noncompliance with medications, reports of opioid and benzodiazepine abuse and refusal to take other medications -Discontinue Suboxone -We will continue Percocet 4 times daily for chronic pain recommend weaning off of this medication. -We will reduce patient's Xanax to 1 mg 3 times daily as needed for anxiety. -Consult to social work/case management for possible placement in rehab upon discharge. -Consult to psychiatry for competency evaluation. Severe hypothyroidism secondary to noncompliance with medication -Resume Synthroid, patient will need to follow up for long-term monitoring/management of thyroid function and adjustments to medications as needed. -Patient educated on importance of medication compliance and risks of continued noncompliance, up to and including . Acute kidney injury Dehydration -Hold nephrotoxic medications such as Lasix and lisinopril. -Continue with Gentle hydration with IV fluids. -Continued close monitoring of renal function with repeat a.m. labs. Other chronic past medical history of CAD with previous [place], hypertension, hyperlipidemia, factor V Leyden deficiency no longer on anticoagulation, previous PEs and DVT, insulin-dependent diabetes mellitus, hypothyroidism, osteoarthritis, and chronic back and right knee pain. The patient is admitted with an anticipated greater than 2 midnight stay for evaluation of acute metabolic encephalopathy and severe hypothyroidism with acute kidney injury.. CODE STATUS: Full code DVT prophylaxis: Heparin Discussed with: Patient, patient's daughter and RN Anticipated discharge date: Clinical course to determine Anticipated discharge place: Clinical course to determine A total of 45 minutes was spent on the care of this complex patient more than 50% of the time was spent in counseling and care coordination. Objective - Vital Signs Vital signs: Vital Signs Temp 98.5 F 06/10/21 02:00 Pulse 78 06/10/21 08:59 Resp 14 06/10/21 08:59 BP 103/64 06/10/21 08:59 Pulse Ox 91 L 06/10/21 08:59 Intake & Output 06/09/21 06/10/21 06/10/21 18:59 06:59 18:59 Weight 113.398 kg 113.398 kg - Labs CBC & Chem 7: 06/10/21 07:55 06/10/21 07:55 Labs: Abnormal Lab Results - Last 24 Hours (Table) 06/09/21 06/09/21 06/09/21 Range/Units 13:20 13:20 13:20 RBC (3.80-5.40) m/uL Hgb (11.4-16.0) gm/dL Hct (34.0-46.0) % RDW 15.9 H (11.5-15.5) % Lymphocytes # (1.0-4.8) k/uL D-Dimer 0.93 H (<0.60) mg/L FEU Sodium (137-145) mmol/L Potassium (3.5-5.1) mmol/L Chloride (98-107) mmol/L BUN (7-17) mg/dL Creatinine (0.52-1.04) mg/dL Glucose (74-99) mg/dL POC Glucose (mg/dL) (75-99) mg/dL Magnesium (1.6-2.3) mg/dL Alkaline Phosphatase (38-126) U/L Albumin (3.5-5.0) g/dL TSH (0.465-4.680) mIU/L Free T4 (0.78-2.19) ng/dL Urine Appearance Cloudy H (Clear) Urine Bacteria Occasional H (None) /hpf Hyaline Casts 3 H (0-2) /lpf Urine Mucus Rare H (None) /hpf 06/09/21 06/09/21 06/09/21 Range/Units 13:20 15:59 17:03 RBC (3.80-5.40) m/uL Hgb (11.4-16.0) gm/dL Hct (34.0-46.0) % RDW (11.5-15.5) % Lymphocytes # (1.0-4.8) k/uL D-Dimer (<0.60) mg/L FEU Sodium 131 L (137-145) mmol/L Potassium 5.2 H (3.5-5.1) mmol/L Chloride 96 L (98-107) mmol/L BUN 37 H (7-17) mg/dL Creatinine 1.92 H (0.52-1.04) mg/dL Glucose 285 H (74-99) mg/dL POC Glucose (mg/dL) 286 H (75-99) mg/dL Magnesium 2.5 H (1.6-2.3) mg/dL Alkaline Phosphatase 143 H (38-126) U/L Albumin 3.4 L (3.5-5.0) g/dL TSH >100.000 H >100.000 H (0.465-4.680) mIU/L Free T4 0.23 L 0.23 L (0.78-2.19) ng/dL Urine Appearance (Clear) Urine Bacteria (None) /hpf Hyaline Casts (0-2) /lpf Urine Mucus (None) /hpf 06/09/21 06/10/21 06/10/21 Range/Units 18:10 07:55 08:05 RBC 3.56 L (3.80-5.40) m/uL Hgb 10.8 L (11.4-16.0) gm/dL Hct 33.6 L (34.0-46.0) % RDW 16.2 H (11.5-15.5) % Lymphocytes # 0.9 L (1.0-4.8) k/uL D-Dimer (<0.60) mg/L FEU Sodium (137-145) mmol/L Potassium (3.5-5.1) mmol/L Chloride (98-107) mmol/L BUN (7-17) mg/dL Creatinine (0.52-1.04) mg/dL Glucose (74-99) mg/dL POC Glucose (mg/dL) 347 H 207 H (75-99) mg/dL Magnesium (1.6-2.3) mg/dL Alkaline Phosphatase (38-126) U/L Albumin (3.5-5.0) g/dL TSH (0.465-4.680) mIU/L Free T4 (0.78-2.19) ng/dL Urine Appearance (Clear) Urine Bacteria (None) /hpf Hyaline Casts (0-2) /lpf Urine Mucus (None) /hpf <Lina Elmore - Last Filed: 06/10/21 22:18> Subjective Eduardo Cadena NP rendered care for this patient independently, reviewed the findings and plan as documented in the note above. I did not physically speak with or examine the patient on this date. Objective - Vital Signs Vital signs: Vital Signs Temp 98.4 F 06/10/21 21:00 Pulse 69 06/10/21 21:00 Resp 16 06/10/21 21:00 BP 95/58 06/10/21 21:00 Pulse Ox 92 L 06/10/21 21:00 Intake & Output 06/10/21 06/10/21 06/11/21 06:59 18:59 06:59 Intake Total 900 Balance 900 Weight 113.398 kg Intake: Intake, IV Titration 900 Amount Sodium Chloride 0.9% 1, 900 000 ml @ 75 mls/hr IV . [id number] [facility] Rx#:[id number] Other: Voiding Method Toilet Toilet Diaper Incontinent - Labs CBC & Chem 7: 06/10/21 07:55 06/10/21 07:55 Labs: Abnormal Lab Results - Last 24 Hours (Table) 06/10/21 06/10/21 06/10/21 Range/Units 07:55 07:55 08:05 RBC 3.56 L (3.80-5.40) m/uL Hgb 10.8 L (11.4-16.0) gm/dL Hct 33.6 L (34.0-46.0) % RDW 16.2 H (11.5-15.5) % Lymphocytes # 0.9 L (1.0-4.8) k/uL BUN 29.9 H (9.0-27.0) mg/dL Creatinine 1.8 H (0.6-1.5) mg/dL Est GFR (CKD-EPI)AfAm 33.2 L (60.0-200.0) Est GFR (CKD-EPI)NonAf 28.6 L (60.0-200.0) Glucose 221 H (70-110) mg/dL POC Glucose (mg/dL) 207 H (75-99) mg/dL Calcium 8.2 L (8.7-10.3) mg/dL 06/10/21 06/10/21 06/10/21 Range/Units 13:15 17:05 20:29 RBC (3.80-5.40) m/uL Hgb (11.4-16.0) gm/dL Hct (34.0-46.0) % RDW (11.5-15.5) % Lymphocytes # (1.0-4.8) k/uL BUN (9.0-27.0) mg/dL Creatinine (0.6-1.5) mg/dL Est GFR (CKD-EPI)AfAm (60.0-200.0) Est GFR (CKD-EPI)NonAf (60.0-200.0) Glucose (70-110) mg/dL POC Glucose (mg/dL) 209 H 221 H 217 H (75-99) mg/dL Calcium (8.7-10.3) mg/dL
[2021-06-10 20:30] LABS: Glucose,Whole Blood 217 mg/dL (75-99)
[2021-06-11] MEDS: ALPRAZolam 1 MG TAB PO PRN ×3 (03:40→23:48)
[2021-06-11] MEDS: LEVOTHYROXINE 100 MCG TAB PO SCH (05:59)
[2021-06-11] MEDS: SODIUM CHLORIDE 0.9% 1,000 ML IV SCH (06:00)
[2021-06-11 08:06] LABS: Glucose,Whole Blood 156 mg/dL (75-99)
[2021-06-11] MEDS: DULoxetine HCL 60 MG CAPSULE.DR PO SCH ×2 (08:19→21:31)
[2021-06-11] MEDS: METOPROLOL TARTRATE 25 MG TAB PO SCH ×2 (08:19→21:31)
[2021-06-11] MEDS: EZETIMIBE 10 MG TAB PO SCH (08:19)
[2021-06-11] MEDS: CLOPIDOGREL 75 MG TAB PO SCH (08:19)
[2021-06-11] MEDS: ASPIRIN 81 MG PO SCH (08:19)
[2021-06-11] MEDS: oxyCODONE-APAP 10-325MG 1 EACH TAB PO SCH ×4 (08:19→21:32)
[2021-06-11] MEDS: HEPARIN SODIUM,PORCINE/PF 5,000 UNIT/0.5 ML SYRINGE SQ SCH ×3 (08:19→23:48)
[2021-06-11] MEDS: MONTELUKAST 10 MG TAB PO SCH (08:19)
[2021-06-11] MEDS: INSULIN ASPART (NovoLOG) 100 UNIT/ML VIAL SQ SCH ×4 (08:20→21:31)
[2021-06-11] MEDS: INSULIN DETEMIR (LEVEMIR) 100 UNIT/ML SYR SQ SCH ×2 (08:20→21:31)
[2021-06-11 12:00] LABS: Glucose,Whole Blood 255 mg/dL (75-99)
[2021-06-11 14:50] LABS: African American GFR (CKD) 43 (>60 ml/min/1.73 sqM); Anion Gap 7 mmol/L; Blood Urea Nitrogen 28 mg/dL (7-17); Calcium 8.2 mg/dL (8.4-10.2); Carbon Dioxide 27 mmol/L (22-30); Chloride 95 mmol/L (98-107); Glucose 395 mg/dL (74-99); Non-African American GFR(CKD) 37 (>60 ml/min/1.73 sqM); Potassium 5.2 mmol/L (3.5-5.1); Sodium 129 mmol/L (137-145)
--- NOTE | 2021-06-11 16:11 | P.PN ---
<Eduardo Cadena - Last Filed: 06/11/21 16:02> Subjective Progress Note Date: 06/11/21 Hospital course: Patient is a very pleasant 66-year-old female with a past medical history of CAD with previous [place], hypertension, hyperlipidemia, factor V Leyden deficiency no longer on anticoagulation, previous PEs and DVT, insulin-dependent diabetes mellitus, hypothyroidism, osteoarthritis, and chronic back and right knee pain. Patient presented to the emergency department with a chief complaint of alteration in mental status and complaints of right knee and chest pain. Patient's Daughter at bedside reported patient has a long-standing history of opioid dependence and abuse and recently had medications changed by her PCP secondary to her reports of increased chronic back pain and right knee pain. Patient's daughter reports 2 weeks ago, PCP increased Suboxone patches and Percocet dose in attempts to help control patient's chronic pain. Patient's daughter reports over the past 2 weeks she has seen her mother progressively decline and abuse this medication by taking more than what is prescribed for her. Patient's daughter also reports patient is taking Xanax and Klonopin at home. She reports her mother constantly cries out in pain and states that she is unable to walk or get out of bed. Daughter reports patient is not even able to stand to shower or bathe or care for herself. She states "it's like she is watching her mother slowly because of her drug addiction. " Patient's daughter states that her mother has not even been taking medications prescribed to her unless they are for pain or anxiety.. In the emergency department, patient was seen and fully evaluated. An EKG was completed revealing normal sinus rhythm at 79 bpm with no noted T-wave or ST abnormalities showing no signs of acute ischemia. Troponin negative at less than 0.012. Chest x-ray revealing previously noted cardiomegaly and negative for acute pulmonary process. X-ray right knee negative for acute fracture or dislocation showing mild diffuse subcutaneous edema and suspect moderate sized suprapatellar joint effusion. CT head showing degenerative and nonspecific white matter changes most typical of remote ischemia. VQ scan showing low scintigraphic evidence for acute PE. Lab findings revealed TSH greater than 100.000 and free T4 of 0.23., Hyponatremia with sodium of 131, hyperkalemia with potassium of 5.2, acute kidney injury with BUN 37, creatinine 1.92, and GFR of 27 with baseline creatinine of 0.9. Patient admits to not taking her levothyroxine or Plavix. Patient also admits that pain is not controlled even by taking extra medications at home. Patient states she no longer wants Suboxone, she would like more opioids. Patient counseled on polysubstance abuse and risks of not taking other medications as prescribed. Patient reports right knee and chest pain denies having any other complaints including headache, lightheadedness, dizziness, palpitations, shortness of breath, abdominal pain, nausea, vomiting, or experiencing any numbness/tingling/weakness in extremities. Upon assessment patient was alert to person, place, and time. Patient very anxious and agitated at this time. Patient was also reportedly noted by RN to hide Percocets and Xanax in her belongings in attempts to take upstairs to floor with her. RN reportedly sent these medications home with patient's daughter. 06/10/21: Patient seen and evaluated at bedside this morning. Patient had episodes of hypotension and lethargy overnight and was found to have blood pressure 80 systolic. Concerns that patient took personal medications in additi on to medications administered in hospital. This morning patient remains sleepy but easily arousable via verbal stimuli at this time and blood pressure has improved to 103/64. Awaiting psychiatry to evaluate. Had long discussion with patient's whom stated he is very concerned with the amount of medications patient is currently on and reports multiple failed attempts in the past to gain control and dispense her medications to her in attempts to ensure she does not misuse/abuse. Patient's reports the only time patient will get up and out of bed is if he is taking her to the doctor for more pain medications. Patient currently reports understanding of plan of care, she denie s misuse of her medications at this time. Renal function is slowly improving with BUN 29.9, creatinine 1.8, and GFR of 28.6 (as reported previously baseline creatinine 0.9). Patient to remain on gentle hydration with IV fluids and we will continue to hold nephrotoxic medications while awaiting for resolution of LIAM 06/11/21: Patient seen and evaluated at bedside this morning. She reports feeling slightly better and appeared to be in better spirits today. Patient reports uncontrolled pain to bilateral knees and lidocaine patches ordered at this time. Discussed with patient the need to ambulate and get out of bed to ensure that she is able to ambulate once she gets home. Discussed with , requesting consult for home care including PT/OT, consults placed to case management and home health.morning labs revealed improvement of LIAM with BUN 28, creatinine 1.45, and GFR of 37. Fluids discontinued at this time as patient is drinking plenty of water without any difficulties. Plan for likely discharge home tomorrow morning after evaluation by PT/OT and arrangements have been made for home care. Discussed with patient, RN, and patient's .. Pseudohyponatremia with sodium of 129, glucose 395, with corrected sodium of 134. Hyperkalemia with potassium of 5.2. Patient to continue NovoLog sliding scale and Levemir 40 units twice daily. Physical exam: Vital signs reviewed and stable. General: Nontoxic, no distress and appears stated age. Obese disheveled appearance. Derm: Skin warm and dry, normal coloration for ethnicity. Head: Atraumatic, normocephalic and symmetric. Eyes: EOMs intact, no lid lag, and anicteric sclera Mouth: no lip lesions, mucus membranes moist Cardiovascular: regular rate and rhythm with normal S1S2, no murmur, positive posterior tibial pulses bilaterally, and cap refill < 2 seconds. Lungs: Respirations even, regular, and unlabored on room air. Lungs CTA bilaterally, no rhonchi, no rales, no wheezing, and no accessory muscle usage. Abdominal: soft, nontender to palpation, no guarding, no appreciable organomegaly Ext: ROM intact. No gross muscle atrophy, no edema, no contractures Neuro: Speech clear, face symmetrical and CN II-XII grossly intact with no noted focal neuro deficits Psych: Alert and oriented to person, place, time, and situation. Assessment and Plan of Care: Acute metabolic encephalopathy secondary to opioid and benzodiazepine abuse Weakness, failure to perform necessary activities of daily living such as bathing Noncompliance with medications, reports of opioid and benzodiazepine abuse and refusal to take other medications -Discontinue Suboxone -We will continue Percocet 4 times daily for chronic pain recommend weaning off of this medication. -We will reduce patient's Xanax to 1 mg 3 times daily as needed for anxiety. -Consult to social work/case management for possible placement in rehab upon discharge. -Consult to psychiatry for competency evaluation. Severe hypothyroidism secondary to noncompliance with medication -Resume Synthroid, patient will need to follow up for long-term monitoring/management of thyroid function and adjustments to medications as needed. -Patient educated on importance of medication compliance and risks of continued noncompliance, up to and including . Acute kidney injury, improving Dehydration -Hold nephrotoxic medications such as Lasix and lisinopril. -Continue with Gentle hydration with IV fluids. -Continued close monitoring of renal function with repeat a.m. labs. Other chronic past medical history of CAD with previous [place], hypertension, hyperlipidemia, factor V Leyden deficiency no longer on anticoagulation, previous PEs and DVT, insulin-dependent diabetes mellitus, hypothyroidism, osteoarthritis, and chronic back and right knee pain. The patient is admitted with an anticipated greater than 2 midnight stay for evaluation of acute metabolic encephalopathy and severe hypothyroidism with acute kidney injury.. CODE STATUS: Full code DVT prophylaxis: Heparin Discussed with: Patient, patient's daughter and RN Anticipated discharge date: Clinical course to determine Anticipated discharge place: Clinical course to determine A total of 45 minutes was spent on the care of this complex patient more than 50% of the time was spent in counseling and care coordination. Objective - Vital Signs Vital signs: Vital Signs Temp 97.7 F 06/11/21 11:59 Pulse 71 06/11/21 11:59 Resp 18 06/11/21 11:59 BP 104/64 06/11/21 11:59 Pulse Ox 93 L 06/11/21 11:59 Intake & Output 06/10/21 06/11/21 06/11/21 18:59 06:59 18:59 Intake Total 900 590 Balance 900 590 Intake: Intake, IV Titration 900 Amount Sodium Chloride 0.9% 1, 900 000 ml @ 75 mls/hr IV . [id number] [facility] Rx#:[id number] Oral 590 Other: Voiding Method Toilet Toilet Toilet Diaper Incontinent # Voids 3 - Labs CBC & Chem 7: 06/10/21 07:55 06/11/21 14:23 Labs: Abnormal Lab Results - Last 24 Hours (Table) 06/10/21 06/10/21 06/11/21 Range/Units 17:05 20:29 08:05 Sodium (137-145) mmol/L Potassium (3.5-5.1) mmol/L Chloride (98-107) mmol/L BUN (7-17) mg/dL Creatinine (0.52-1.04) mg/dL Glucose (74-99) mg/dL POC Glucose (mg/dL) 221 H 217 H 156 H (75-99) mg/dL Calcium (8.4-10.2) mg/dL 06/11/21 06/11/21 Range/Units 11:59 14:23 Sodium 129 L (137-145) mmol/L Potassium 5.2 H (3.5-5.1) mmol/L Chloride 95 L (98-107) mmol/L BUN 28 H (7-17) mg/dL Creatinine 1.45 H (0.52-1.04) mg/dL Glucose 395 H (74-99) mg/dL POC Glucose (mg/dL) 255 H (75-99) mg/dL Calcium 8.2 L (8.4-10.2) mg/dL <Lina Elmore - Last Filed: 06/11/21 18:58> Subjective Eduardo Cadena NP rendered care for this patient independently, reviewed the findings and plan as documented in the note above. I did not physically speak with or examine the patient on this date. Hyponatremia, off IVF and likely due to hypothyroidism Hyperkalemia, mild- repeat in AM Objective - Vital Signs Vital signs: Vital Signs Temp 97.7 F 06/11/21 11:59 Pulse 71 06/11/21 11:59 Resp 18 06/11/21 11:59 BP 104/64 06/11/21 11:59 Pulse Ox 93 L 06/11/21 11:59 Intake & Output 06/10/21 06/11/21 06/11/21 18:59 06:59 18:59 Intake Total 900 590 0 Balance 900 590 0 Intake: Intake, IV Titration 900 0 Amount Sodium Chloride 0.9% 1, 900 0 000 ml @ 75 mls/hr IV . [id number] [facility] Rx#:[id number] Oral 590 Other: Voiding Method Toilet Toilet Toilet Diaper Incontinent # Voids 3 5 - Labs CBC & Chem 7: 06/10/21 07:55 06/11/21 14:23 Labs: Abnormal Lab Results - Last 24 Hours (Table) 06/10/21 06/11/21 06/11/21 Range/Units 20:29 08:05 11:59 Sodium (137-145) mmol/L Potassium (3.5-5.1) mmol/L Chloride (98-107) mmol/L BUN (7-17) mg/dL Creatinine (0.52-1.04) mg/dL Glucose (74-99) mg/dL POC Glucose (mg/dL) 217 H 156 H 255 H (75-99) mg/dL Calcium (8.4-10.2) mg/dL 06/11/21 06/11/21 Range/Units 14:23 17:34 Sodium 129 L (137-145) mmol/L Potassium 5.2 H (3.5-5.1) mmol/L Chloride 95 L (98-107) mmol/L BUN 28 H (7-17) mg/dL Creatinine 1.45 H (0.52-1.04) mg/dL Glucose 395 H (74-99) mg/dL POC Glucose (mg/dL) 227 H (75-99) mg/dL Calcium 8.2 L (8.4-10.2) mg/dL
[2021-06-11] MEDS ORDERED: LIDOCAINE 5% PATCH TOPICAL SCH (16:15)
[2021-06-11 17:36] LABS: Glucose,Whole Blood 227 mg/dL (75-99)
[2021-06-11 20:07] LABS: Glucose,Whole Blood 364 mg/dL (75-99)
[2021-06-11 20:56] VITALS: RESP 16
[2021-06-11] MEDS: traZODone HCL 100 MG TAB PO SCH (21:31)
[2021-06-12] MEDS: LEVOTHYROXINE 100 MCG TAB PO SCH (04:35)
[2021-06-12] MEDS: ALPRAZolam 1 MG TAB PO PRN (04:35)
[2021-06-12] MEDS: oxyCODONE-APAP 10-325MG 1 EACH TAB PO SCH (04:35)
[2021-06-12 04:51] VITALS: TEMP 98.2
[2021-06-12 07:13] LABS: HCT 33.6 % (34.0-46.0); HGB 10.6 gm/dL (11.4-16.0); MCH 29.8 pg (25.0-35.0); MCHC 31.4 g/dL (31.0-37.0); MCV 94.9 fL (80.0-100.0); Mean Platelet Volume 8.9; Platelet Count 207 k/uL (150-450); RBC 3.55 m/uL (3.80-5.40); RDW 15.8 % (11.5-15.5); WBC 7.4 k/uL (3.8-10.6)
[2021-06-12 07:20] LABS: Glucose,Whole Blood 216 mg/dL (75-99)
[2021-06-12 07:49] LABS: African American GFR (CKD) 53 (>60 ml/min/1.73 sqM); Anion Gap 6 mmol/L; Blood Urea Nitrogen 23 mg/dL (7-17); Calcium 8.3 mg/dL (8.4-10.2); Carbon Dioxide 28 mmol/L (22-30); Chloride 98 mmol/L (98-107); Glucose 196 mg/dL (74-99); Non-African American GFR(CKD) 46 (>60 ml/min/1.73 sqM); Potassium 4.8 mmol/L (3.5-5.1); Sodium 132 mmol/L (137-145)
[2021-06-12] MEDS: MONTELUKAST 10 MG TAB PO SCH (08:23)
[2021-06-12] MEDS: ASPIRIN 81 MG PO SCH (08:23)
[2021-06-12] MEDS: METOPROLOL TARTRATE 25 MG TAB PO SCH (08:23)
[2021-06-12] MEDS: EZETIMIBE 10 MG TAB PO SCH (08:23)
[2021-06-12] MEDS: INSULIN ASPART (NovoLOG) 100 UNIT/ML VIAL SQ SCH (08:24)
[2021-06-12] MEDS: CLOPIDOGREL 75 MG TAB PO SCH (08:24)
[2021-06-12] MEDS: DULoxetine HCL 60 MG CAPSULE.DR PO SCH (08:24)
[2021-06-12] MEDS: HEPARIN SODIUM,PORCINE/PF 5,000 UNIT/0.5 ML SYRINGE SQ SCH (08:24)
[2021-06-12] MEDS: INSULIN DETEMIR (LEVEMIR) 100 UNIT/ML SYR SQ SCH (08:27)
[2021-06-12 08:31] VITALS: BP 160/77; PULSE 72
--- NOTE | 2021-06-12 13:27 | P.DS ---
<Eduardo Cadena - Last Filed: 06/12/21 13:12> Providers Expected date of discharge: 06/12/21 Hospital Course: Discharge Diagnosis: Acute metabolic encephalopathy secondary to opioid and benzodiazepine abuse Severe hypothyroidism secondary to noncompliance with medication Acute kidney injury, improving Weakness, failure to perform necessary activities of daily living such as bathing Noncompliance with medications, reports of opioid and benzodiazepine abuse and refusal to take other medications Dehydration History of CAD with previous [place] Hypertension Hyperlipidemia Factor V Leyden deficiency no longer on anticoagulation Previous PEs and DVT (reports >20 yrs ago) Insulin-dependent diabetes mellitus Osteoarthritis Chronic back and right knee pain. Hospital Course: Patient is a very pleasant 66-year-old female with a past medical history of CAD with previous [place], hypertension, hyperlipidemia, factor V Leyden deficiency no longer on anticoagulation, previous PEs and DVT, insulin-dependent diabetes mellitus, hypothyroidism, osteoarthritis, and chronic back and right knee pain. Patient presented to the emergency department with a chief complaint of alteration in mental status and complaints of right knee and chest pain. Patient's Daughter at bedside reported patient has a long-standing history of opioid dependence and abuse and recently had medications changed by her PCP secondary to her reports of increased chronic back pain and right knee pain. Patient's daughter and reporting patient taking more medications than she is prescribed and that she has not gotten out of bed in months other than to go to doctors for pain medications only. Patient admits to taking a couple of pills because her pain was uncontrolled. Patient underwent a complete workup in the ED. An EKG was completed revealing normal sinus rhythm at 79 bpm with no noted T-wave or ST abnormalities showing no signs of acute ischemia. Troponin negative at less than 0.012. Chest x-ray revealing previously noted cardiomegaly and negative for acute pulmonary process. X-ray right knee negative for acute fracture or dislocation showing mild diffuse subcutaneous edema and suspect moderate sized suprapatellar joint effusion. CT head showing degenerative and nonspecific white matter changes most typical of remote ischemia. VQ scan showing low scintigraphic evidence for acute PE. Lab findings revealed TSH greater than 100.000 and free T4 of 0.23., Hyponatremia with sodium of 131, hyperkalemia with potassium of 5.2, acute kidney injury with BUN 37, creatinine 1.92, and GFR of 27 with baseline creatinine of 0.9. Patient admitted that she has not been taking her Levothyroxine or Plavix. Patient also admits that pain is not controlled even by taking the extra medications at home. Patient was admitted under our services for acute kidney injury and acute metabolic encephalopathy secondary to opioid and benzodiazepine abuse. Suboxone was discontinued and patient has been weaned down off of her benzodiazepines and opioid medications. She was evaluated by psychiatrist, also recommending discontinuation/weaning off of opioid medications. Acute kidney injury was treated with gentle hydration and discontinuation of Lasix and lisinopril. Acute kidney injury resolved and patient successfully weaned down off of her medications. Patient being discharged home with discontinuation of Lasix, lisinopril, and Suboxone as well as decreased doses of her opioid and benzodiazepine medications. Patient started on Mobic and lidocaine patches for alternative treatments for pain control. Patient being discharged home with her family and home health care for needed PT/OT. Physical exam: Patient seen and fully evaluated at bedside this morning. Patient was much more awake and alert today. She reports feeling much better, had long conversation regarding opioid and benzodiazepine use/abuse. Discussed with patient the plans for discharge and continued weaning off of these medications. Patient cooperative this morning. Patient even able to get out of bed with assistance and ambulated with use of walker to the shower and was able to shower today. Discussed discharge plan with patient's . Patient is medically stable for discharge home at this time. Vital signs reviewed and stable. General: Nontoxic, no distress and appears stated age. Obese. Derm: Skin warm and dry, normal coloration for ethnicity. Head: Atraumatic, normocephalic and symmetric. Eyes: EOMs intact, no lid lag, and anicteric sclera Mouth: no lip lesions, mucus membranes moist Cardiovascular: regular rate and rhythm with normal S1S2, no murmur, positive posterior tibial pulses bilaterally, and cap refill < 2 seconds. Lungs: Respirations even, regular, and unlabored on room air. Lungs CTA bilaterally, no rhonchi, no rales, no wheezing, and no accessory muscle usage. Abdominal: soft, nontender to palpation, no guarding, no appreciable organomega ly Ext: ROM intact. No gross muscle atrophy, no edema, no contractures Neuro: Speech clear, face symmetrical and CN II-XII grossly intact with no noted focal neuro deficits Psych: Alert and oriented to person, place, time, and situation. A total of 55 minutes of time were spent preparing this complex discharge summary. Patient Condition at Discharge: Stable Plan - Discharge Summary New Discharge Prescriptions: New ALPRAZolam [Xanax] 1 mg PO TID PRN tab PRN Reason: Anxiety Meloxicam [Mobic] 15 mg PO DAILY 30 Days #30 tab Lidocaine 5% Patch [Lidoderm 5% Patch] 2 patch TOPICAL Q24H 30 Days #60 patch oxyCODONE-APAP 10-325MG [Percocet 10-325 mg] 0.5 each PO BID PRN tab PRN Reason: Pain Acetaminophen Tab [Tylenol] 650 mg PO Q6HR PRN tab PRN Reason: Mild Pain Or Fever > 100.5 Continue Montelukast [Singulair] 10 mg PO DAILY Metoprolol Tartrate [Lopressor] 25 mg PO BID Clopidogrel [Plavix] 75 mg PO DAILY DULoxetine HCL [Cymbalta] 60 mg PO BID traZODone HCL [Desyrel] 100 mg PO BID Levocetirizine Dihydrochloride [Xyzal] 5 mg PO DAILY Ezetimibe [Zetia] 10 mg PO DAILY 30 Days #30 tab Insulin Lispro [humaLOG Kwikpen] See Protocol SQ AC-TID Fluticasone Nasal [place] [Flonase Nasal [place]] 1 spr EA NOSTRIL BID Insulin Glargine,Hum.rec.anlog [Lantus Solostar Pen] 40 units SQ BID Aspirin EC [Ecotrin Low Dose] 81 mg PO DAILY Levothyroxine Sodium [Synthroid] 200 mcg PO DAILY 30 Days #30 tab Discontinued ALPRAZolam [Xanax] 2 mg PO TID oxyCODONE-APAP 10-325MG [Percocet 10-325 mg] 1 tab PO QID lisinopriL [Zestril] 10 mg PO DAILY Furosemide [Lasix] 80 mg PO DAILY Buprenorphine [Butrans 10 MCG/HOUR] 1 patch TRANSDERM SA Discharge Medication List Clopidogrel [Plavix] 75 mg PO DAILY 07/07/19 [History] DULoxetine HCL [Cymbalta] 60 mg PO BID 07/07/19 [History] Levocetirizine Dihydrochloride [Xyzal] 5 mg PO DAILY 07/07/19 [History] Metoprolol Tartrate [Lopressor] 25 mg PO BID 07/07/19 [History] Montelukast [Singulair] 10 mg PO DAILY 07/07/19 [History] traZODone HCL [Desyrel] 100 mg PO BID 07/07/19 [History] Ezetimibe [Zetia] 10 mg PO DAILY 30 Days #30 tab 01/30/20 [Rx] Aspirin EC [Ecotrin Low Dose] 81 mg PO DAILY 06/09/21 [History] Fluticasone Nasal [place] [Flonase Nasal [place]] 1 spr EA NOSTRIL BID 06/09/21 [History] Insulin Glargine,Hum.rec.anlog [Lantus Solostar Pen] 40 units SQ BID 06/09/21 [History] Insulin Lispro [humaLOG Kwikpen] See Protocol SQ AC-TID 06/09/21 [History] ALPRAZolam [Xanax] 1 mg PO TID PRN tab 06/12/21 [Rx] Acetaminophen Tab [Tylenol] 650 mg PO Q6HR PRN tab 06/12/21 [Rx] Levothyroxine Sodium [Synthroid] 200 mcg PO DAILY 30 Days #30 tab 06/12/21 [Rx] Lidocaine 5% Patch [Lidoderm 5% Patch] 2 patch TOPICAL Q24H 30 Days #60 patch 06/12/21 [Rx] Meloxicam [Mobic] 15 mg PO DAILY 30 Days #30 tab 06/12/21 [Rx] oxyCODONE-APAP 10-325MG [Percocet 10-325 mg] 0.5 each PO BID PRN tab 06/12/21 [Rx] Follow up Appointment(s)/Referral(s): Khadar Luu MD [REFERRING] - 1-2 Days (Information on new PCP as pt's requested. ) Ambulatory/Diagnostic Orders: Basic Metabolic Panel [LAB.AMB] Time Frame: 3 Days, Location: None Selected Patient Instructions/Handouts: Levothyroxine (By mouth), Lidocaine (On the skin), Meloxicam (By mouth), Acute Kidney Injury (DC), Heart Healthy Diet (DC), Hypothyroidism (DC), Urinalysis (GEN), Acute Delirium (DC), Diabetic Hyperglycemia (DC), Encephalopathy (DC), Mediterranean Diet (DC), Diabetes and Exercise (DC), Type 2 Diabetes Management for Adults (DC) Activity/Diet/Wound Care/Special Instructions: Activity: As tolerated. Take breaks as needed. Diet: Heart healthy and carb consistent diet. Avoid salts, or foods with hidden salts such as canned or boxed foods and frozen dinners. Extra salt makes your heart work harder and traps the fluid in your body for longer. Special Instructions: Take all of your medications only as we discussed and remember to keep all of your doctor's appointments and follow-up as needed. It is absolutely necessary for you to wean down the use of your narcotic and benzodiazepine medications. Suboxone has been discontinued. Xanax may continue but dose has been decreased to 1 mg 3 times daily as needed for anxiety. Her opioid medication, Percocet has also been decreased and you may take a half a tablet twice daily as needed for uncontrolled pain. We are sending her home with a prescription for Mobic and Lidocaine patches. In addition, I strongly recommend alternative pain management techniques including heating pads and Tylenol as needed to assist with pain control. Also as we discussed it is of high importance for you to continue taking your levothyroxine and follow up with your doctor to get your thyroid levels checked as soon as these will need to be monitored closely so medication adjustments can be made as needed. It will be difficult to continue weaning down on the narcotic and benzodiazepine medications, however it is necessary for your health going forward. You are be ing discharged home in the care of your family [facility]. Thank you for allowing us to participate in your care, it was truly a pleasure having you for our patient!!! Good luck on your journey!! Discharge Disposition: HOME WITH HOME HEALTH SERVICES <Lina Elmore - Last Filed: 06/12/21 21:43> Providers Date of admission: 06/11/21 09:00 Attending physician: Lina Elmore DO Consults: 06/09/21 19:09 Consult Physician Routine Consulting Provider: Baron Albrecht Consult Reason/Comments: Competency evaluation, polysubstance abuse, severe hypothyroidism Do you want consulting provider notified?: Yes 06/10/21 18:22 Consult Physician Routine Consulting Provider: Jonathan Wesley Consult Reason/Comments: chronic pain management Do you want consulting provider notified?: Yes Primary care physician: Venkatesh Segundo MD Hospital Course: Eduardo Cadena NP rendered care for this patient independently, reviewed the findings and plan as documented in the note above. I did not physically speak with or examine the patient on this date.
--- NOTE | 2021-06-13 15:38 | P.PN ---
Progress Note - Text I was unable to see patient prior to discharge.
== END 2021-06-12 12:30 | disposition home health service (06) | DRG 92 ==
LOC: EC 11:18 → 5NMEDONC 15:29 → OBSVTOIN 06-11 09:00
PROVIDERS: ADMIT Internal Medicine; ATTEND Internal Medicine
DX: G92.8 Other toxic encephalopathy (principal); D68.51 Activated protein C resistance; E87.1 Hypo-osmolality and hyponatremia; N17.9 Acute kidney failure, unspecified; E03.9 Hypothyroidism, unspecified; I25.10 Atherosclerotic heart disease of native coronary artery without angina pectoris; M19.90 Unspecified osteoarthritis, unspecified site; Z20.822 Contact with and (suspected) exposure to COVID-19; E11.40 Type 2 diabetes mellitus with diabetic neuropathy, unspecified; E78.5 Hyperlipidemia, unspecified; E86.0 Dehydration; E87.5 Hyperkalemia; M25.461 Effusion, right knee; F11.10 Opioid abuse, uncomplicated; F13.10 Sedative, hypnotic or anxiolytic abuse, uncomplicated; F41.9 Anxiety disorder, unspecified; G89.29 Other chronic pain; I10 Essential (primary) hypertension; J40 Bronchitis, not specified as acute or chronic; D64.9 Anemia, unspecified; F32.9 Major depressive disorder, single episode, unspecified; K58.9 Irritable bowel syndrome, unspecified; E11.610 Type 2 diabetes mellitus with diabetic neuropathic arthropathy; I25.2 Old myocardial infarction; Z79.890 Hormone replacement therapy; Z91.041 Radiographic dye allergy status; W19.XXXA Unspecified fall, initial encounter; Z79.02 Long term (current) use of antithrombotics/antiplatelets; Z79.4 Long term (current) use of insulin; Z79.82 Long term (current) use of aspirin; Z79.891 Long term (current) use of opiate analgesic; Z79.899 Other long term (current) drug therapy; Z86.711 Personal history of pulmonary embolism; Z87.891 Personal history of nicotine dependence; Z90.710 Acquired absence of both cervix and uterus; Z91.14 Patient's other noncompliance with medication regimen; Z95.5 Presence of coronary angioplasty implant and graft; Z88.1 Allergy status to other antibiotic agents; Z88.6 Allergy status to analgesic agent; Z88.8 Allergy status to other drugs, medicaments and biological substances; Z87.19 Personal history of other diseases of the digestive system; Z90.49 Acquired absence of other specified parts of digestive tract
CPT/HCPCS: 36415; 70450; 71046; 78582; 80048; 80053; 81001; 82140; 83605; 83735; 83880; 84439; 84443; 84484; 85025; 85027; 85379; 85610; 85730; 87635; 93005; 96374; 96375; 99285

== ENCOUNTER 2021-08-30 15:10 | Inpatient (IN) | payer MEDICARE, BC ==
--- NOTE | 2021-08-30 15:49 | ED ---
General Adult HPI - General Chief complaint: Chest Pain Stated complaint: pain all over Time Seen by Provider: 08/30/21 15:15 Source: patient, family, EMS, RN notes reviewed, old records reviewed Mode of arrival: EMS Limitations: no limitations - History of Present Illness Initial comments: 66-year-old female history of multiple medical problems who presents by EMS from home with multiple complaints she complains some chest pain it is been going on for. Time he gets worse with breathing headache body aches chills for the past 2 weeks she started having bloody urine today. She paranasal seen her PCP and put on antibiotics and different times as well as a shot of steroids one week ago. Her blood sugars have been running high reported be over 200 today. Patient herself is a poor historian. He has had per her daughter decreased appetite and oral intake recently and also took 2 oxycodone today. Patient denies taking a second one. Patient appears to be slow to respond and somewhat of a poor historian. She was recently admitted to this facility. Patient initially states she did have some abdominal problems she'll be coming distended per her daughter. No other current complaints no other modifying factors - Related Data Home Medications Medication Instructions Recorded Confirmed Clopidogrel [Plavix] 75 mg PO DAILY 07/07/19 06/09/21 DULoxetine HCL [Cymbalta] 60 mg PO BID 07/07/19 06/09/21 Levocetirizine Dihydrochloride 5 mg PO DAILY 07/07/19 06/09/21 [Xyzal] Metoprolol Tartrate [Lopressor] 25 mg PO BID 07/07/19 06/09/21 Montelukast [Singulair] 10 mg PO DAILY 07/07/19 06/09/21 traZODone HCL [Desyrel] 100 mg PO BID 07/07/19 06/09/21 Aspirin EC [Ecotrin Low Dose] 81 mg PO DAILY 06/09/21 06/09/21 Fluticasone Nasal [place] [Flonase 1 spr EA NOSTRIL BID 06/09/21 06/09/21 Nasal [place]] Insulin Glargine,Hum.rec.anlog 40 units SQ BID 06/09/21 06/09/21 [Lantus Solostar Pen] Insulin Lispro [humaLOG Kwikpen] See Protocol SQ AC-TID 06/09/21 06/09/21 Previous Rx's Medication Instructions Recorded Ezetimibe [Zetia] 10 mg PO DAILY 30 Days #30 tab 01/30/20 ALPRAZolam [Xanax] 1 mg PO TID PRN tab 06/12/21 Acetaminophen Tab [Tylenol] 650 mg PO Q6HR PRN tab 06/12/21 Levothyroxine Sodium [Synthroid] 200 mcg PO DAILY 30 Days #30 tab 06/12/21 Lidocaine 5% Patch [Lidoderm 5% 2 patch TOPICAL Q24H 30 Days #60 06/12/21 Patch] patch Meloxicam [Mobic] 15 mg PO DAILY 30 Days #30 tab 06/12/21 oxyCODONE-APAP 10-325MG [Percocet 0.5 each PO BID PRN tab 06/12/21 10-325 mg] Allergies Allergy/AdvReac Type Severity Reaction Status Date / Time Iodinated Contrast Media Allergy Rash/Hives Verified 08/30/21 19:26 Iodine and Iodide Containing Allergy Rash/Hives Verified 08/30/21 19:26 Produc liraglutide [From Saxenda] AdvReac Unknown Nausea & Verified 08/30/21 19:26 Vomiting NSAIDS (Non-Steroidal AdvReac Unknown Nausea & Verified 08/30/21 19:26 Anti-Inflamma Vomiting aspirin AdvReac Nausea & Verified 08/30/21 19:26 Vomiting with high doses azithromycin AdvReac Vomiting Verified 08/30/21 19:26 naproxen [From Naprosyn] AdvReac Nausea & Verified 08/30/21 19:26 Vomiting Review of Systems ROS Statement: Those systems with pertinent positive or pertinent negative responses have been documented in the HPI. ROS Other: All systems not noted in ROS Statement are negative. Past Medical History Past Medical History: Blood Disorder, Diabetes Mellitus, Deep Vein Thrombosis (DVT), GERD/Reflux, Hyperlipidemia, Hypertension, Myocardial Infarction ([place]), Osteoarthritis (OA), Pneumonia, Pulmonary Embolus (PE), Thyroid Disorder Additional Past Medical History / Comment(s): Factor 5 leiden, DVT L leg, PE L lung, MIs x 5, palpitations, IDDM type II, neuropathy bilateral legs/feet, lymphedema L leg, charcot syndrome L foot, chronic low back pain, bilateral sciatica, bronchitis, anemia, hypothyroid, UTI, IBS, sinus problems, worsening tremors, just finished antibiotic for cough, recently "stomach shivering inside" plans to f/u with pcp Last Myocardial Infarction Date:: January 2020 History of Any Multi-Drug Resistant Organisms: None Reported Past Surgical History: Appendectomy, Cholecystectomy, Heart Catheterization With Stent, Hernia Repair, Hysterectomy, Tonsillectomy Additional Past Surgical History / Comment(s): Bilateral salpingectomy, bilateral oophorectomy, abdominal hernia surgeries, L foot fracture with surgery-hardware since removed, bilateral cataract removals, epidural injections with last on 01/20/20 lumbar, LAST PROCEDURE 04/19/21 Past Anesthesia/Blood Transfusion Reactions: No Reported Reaction Additional Past Anesthesia/Blood Transfusion Reaction / Comment(s): Pt has received blood in past without reaction. Date of Last Stent Placement:: January 2020 Past Psychological History: Anxiety, Depression Smoking Status: Former smoker Past Alcohol Use History: None Reported Past Drug Use History: None Reported - Past Family History Mother Additional Family Medical History / Comment(s): Mother was a smoker. Father Family Medical History: Cancer Additional Family Medical History / Comment(s): Lung cancer. Father was a smoker. Son(s) Family Medical History: Deep Vein Thrombosis (DVT) General Exam - General Exam Comments Initial Comments: This is a well up well-nourished awake alert somewhat lethargic female Limitations: no limitations General appearance: alert, in no apparent distress Head exam: Present: atraumatic, normocephalic, normal inspection Eye exam: Present: normal appearance, PERRL, EOMI. Absent: scleral icterus, conjunctival injection, periorbital swelling ENT exam: Present: mucous membranes dry Neck exam: Present: normal inspection, full ROM, other. Absent: tenderness, meningismus, lymphadenopathy Respiratory exam: Present: chest wall tenderness, decreased breath sounds (No stridor JVD or bruits). Absent: respiratory distress, wheezes, rales, rhonchi, stridor Cardiovascular Exam: Present: regular rate, normal rhythm, normal heart sounds. Absent: systolic murmur, diastolic murmur, rubs, gallop, clicks GI/Abdominal exam: Present: soft, distended, normal bowel sounds. Absent: tenderness, guarding, rebound, rigid, bruit, pulsatile mass Extremities exam: Present: normal inspection, full ROM, normal capillary refill. Absent: tenderness, pedal edema, joint swelling, calf tenderness Back exam: Present: normal inspection, full ROM. Absent: tenderness, CVA tenderness (R), CVA tenderness (L) Neurological exam: Present: alert, oriented X3, CN II-XII intact Psychiatric exam: Present: normal mood, flat affect Skin exam: Present: warm, dry, intact, normal color. Absent: rash Course Vital Signs 08/30/21 08/30/21 08/30/21 15:15 16:57 17:26 Temperature 98.7 F Pulse Rate 94 92 Pulse Rate [ 85 Sitting Pulse Oximetery] Respiratory 20 22 Rate Blood Pressure 128/98 O2 Sat by Pulse 93 L 93 L Oximetry 08/30/21 18:42 Temperature Pulse Rate 82 Pulse Rate [ Sitting Pulse Oximetery] Respiratory 20 Rate Blood Pressure 130/67 O2 Sat by Pulse 98 Oximetry EKG Findings - EKG Results: EKG: interpreted by NIKO, sinus rhythm (Sinus rhythm 92 SD interval 182 QRS duration 82 QT/QTC 344/425 left exodeviation low-voltage evidence of septal ch anges age undetermined) Medical Decision Making - Medical Decision Making I did discuss findings with the patient and family members as well as Dr. Chapa. Patient was noted to desaturate into the 80s with exertion or sleeping. She'll be admitted the patient does have a elevated d-dimer unclear whether this is secondary to the COVID-19 or other etiologies patient does have severe reaction to iodinated contrast media a VQ scan will be ordered. - Lab Data Result diagrams: 08/30/21 15:45 08/30/21 15:45 Lab Results 08/30/21 08/30/21 08/30/21 Range/Units 15:45 15:45 15:45 WBC 8.4 (3.8-10.6) k/uL RBC 4.16 (3.80-5.40) m/uL Hgb 12.3 (11.4-16.0) gm/dL Hct 38.8 (34.0-46.0) % MCV 93.5 (80.0-100.0) fL MCH 29.5 (25.0-35.0) pg MCHC 31.6 (31.0-37.0) g/dL RDW 14.9 (11.5-15.5) % Plt Count 204 (150-450) k/uL MPV 8.5 Neutrophils % 90 % Lymphocytes % 4 % Monocytes % 4 % Eosinophils % 2 % Basophils % 0 % Neutrophils # 7.5 (1.3-7.7) k/uL Lymphocytes # 0.3 L (1.0-4.8) k/uL Monocytes # 0.3 (0-1.0) k/uL Eosinophils # 0.2 (0-0.7) k/uL Basophils # 0.0 (0-0.2) k/uL Hypochromasia Slight D-Dimer 1.68 H (<0.60) mg/L FEU Sodium (137-145) mmol/L Potassium (3.5-5.1) mmol/L Chloride (98-107) mmol/L Carbon Dioxide (22-30) mmol/L Anion Gap mmol/L BUN (7-17) mg/dL Creatinine (0.52-1.04) mg/dL Est GFR (CKD-EPI)AfAm (>60 ml/min/1.73 sqM) Est GFR (CKD-EPI)NonAf (>60 ml/min/1.73 sqM) Glucose (74-99) mg/dL POC Glucose (mg/dL) (75-99) mg/dL POC Glu [employer] Framer ID Osmolality ([phone]) mosm/kg Calcium (8.4-10.2) mg/dL Magnesium (1.6-2.3) mg/dL Total Bilirubin (0.2-1.3) mg/dL AST (14-36) U/L ALT (4-34) U/L Alkaline Phosphatase (38-126) U/L Ammonia (<30) umol/L Creatine Kinase (30-135) U/L Troponin I (0.000-0.034) ng/mL NT-Pro-B Natriuret Pep pg/mL Total Protein (6.3-8.2) g/dL Albumin (3.5-5.0) g/dL TSH (0.465-4.680) mIU/L Free T4 (0.78-2.19) ng/dL Urine Color Urine Appearance (Clear) Urine pH (5.0-8.0) Ur Specific [place] (1.001-1.035) Urine Protein (Negative) Urine Glucose (UA) (Negative) Urine Ketones (Negative) Urine Blood (Negative) Urine Nitrite (Negative) Urine Bilirubin (Negative) Urine Urobilinogen (<2.0) mg/dL Ur Leukocyte Esterase (Negative) Urine RBC (0-5) /hpf Urine WBC (0-5) /hpf Ur Squamous Epith Cells (0-4) /hpf Urine Bacteria (None) /hpf Urine Mucus (None) /hpf Urine Yeast (Budding) (None) /hpf Urine Opiates Screen Not Detected (NotDetected) Ur Oxycodone Screen Detected H (NotDetected) Urine Methadone Screen Not Detected (NotDetected) Ur Propoxyphene Screen Not Detected (NotDetected) Acetaminophen ug/mL Ur Barbiturates Screen Detected H (NotDetected) U Tricyclic Antidepress Not Detected (NotDetected) Ur Phencyclidine Scrn Not Detected (NotDetected) Ur Amphetamines Screen Not Detected (NotDetected) U Methamphetamines Scrn Not Detected (NotDetected) U Benzodiazepines Scrn Detected H (NotDetected) Urine Cocaine Screen Not Detected (NotDetected) U Marijuana (THC) Screen Not Detected (NotDetected) Serum Alcohol mg/dL Acetone, Qual (Negative) Influenza Type A (PCR) (Not Detectd) Influenza Type B (PCR) (Not Detectd) RSV (PCR) (Not Detectd) SARS-CoV-2 (PCR) (Not Detectd) 08/30/21 08/30/21 08/30/21 Range/Units 15:45 15:45 15:45 WBC (3.8-10.6) k/uL RBC (3.80-5.40) m/uL Hgb (11.4-16.0) gm/dL Hct (34.0-46.0) % MCV (80.0-100.0) fL MCH (25.0-35.0) pg MCHC (31.0-37.0) g/dL RDW (11.5-15.5) % Plt Count (150-450) k/uL MPV Neutrophils % % Lymphocytes % % Monocytes % % Eosinophils % % Basophils % % Neutrophils # (1.3-7.7) k/uL Lymphocytes # (1.0-4.8) k/uL Monocytes # (0-1.0) k/uL Eosinophils # (0-0.7) k/uL Basophils # (0-0.2) k/uL Hypochromasia D-Dimer (<0.60) mg/L FEU Sodium 130 L (137-145) mmol/L Potassium 4.4 (3.5-5.1) mmol/L Chloride 93 L (98-107) mmol/L Carbon Dioxide 28 (22-30) mmol/L Anion Gap 9 mmol/L BUN 17 (7-17) mg/dL Creatinine 0.91 (0.52-1.04) mg/dL Est GFR (CKD-EPI)AfAm 76 (>60 ml/min/1.73 sqM) Est GFR (CKD-EPI)NonAf 65 (>60 ml/min/1.73 sqM) Glucose 218 H (74-99) mg/dL POC Glucose (mg/dL) (75-99) mg/dL POC Glu [employer] Framer ID Osmolality [phone] ([phone]) mosm/kg Calcium 8.1 L (8.4-10.2) mg/dL Magnesium 2.0 (1.6-2.3) mg/dL Total Bilirubin 0.4 (0.2-1.3) mg/dL AST 104 H (14-36) U/L ALT 26 (4-34) U/L Alkaline Phosphatase 174 H (38-126) U/L Ammonia <9 (<30) umol/L Creatine Kinase 46 (30-135) U/L Troponin I (0.000-0.034) ng/mL NT-Pro-B Natriuret Pep 285 pg/mL Total Protein 7.0 (6.3-8.2) g/dL Albumin 3.6 (3.5-5.0) g/dL TSH 8.550 H (0.465-4.680) mIU/L Free T4 1.42 (0.78-2.19) ng/dL Urine Color Urine Appearance (Clear) Urine pH (5.0-8.0) Ur Specific [place] (1.001-1.035) Urine Protein (Negative) Urine Glucose (UA) (Negative) Urine Ketones (Negative) Urine Blood (Negative) Urine Nitrite (Negative) Urine Bilirubin (Negative) Urine Urobilinogen (<2.0) mg/dL Ur Leukocyte Esterase (Negative) Urine RBC (0-5) /hpf Urine WBC (0-5) /hpf Ur Squamous Epith Cells (0-4) /hpf Urine Bacteria (None) /hpf Urine Mucus (None) /hpf Urine Yeast (Budding) (None) /hpf Urine Opiates Screen (NotDetected) Ur Oxycodone Screen (NotDetected) Urine Methadone Screen (NotDetected) Ur Propoxyphene Screen (NotDetected) Acetaminophen <10.0 ug/mL Ur Barbiturates Screen (NotDetected) U Tricyclic Antidepress (NotDetected) Ur Phencyclidine Scrn (NotDetected) Ur Amphetamines Screen (NotDetected) U Methamphetamines Scrn (NotDetected) U Benzodiazepines Scrn (NotDetected) Urine Cocaine Screen (NotDetected) U Marijuana (THC) Screen (NotDetected) Serum Alcohol <10 mg/dL Acetone, Qual Negative (Negative) Influenza Type A (PCR) (Not Detectd) Influenza Type B (PCR) (Not Detectd) RSV (PCR) (Not Detectd) SARS-CoV-2 (PCR) (Not Detectd) 08/30/21 08/30/21 08/30/21 Range/Units 15:45 15:45 15:45 WBC (3.8-10.6) k/uL RBC (3.80-5.40) m/uL Hgb (11.4-16.0) gm/dL Hct (34.0-46.0) % MCV (80.0-100.0) fL MCH (25.0-35.0) pg MCHC (31.0-37.0) g/dL RDW (11.5-15.5) % Plt Count (150-450) k/uL MPV Neutrophils % % Lymphocytes % % Monocytes % % Eosinophils % % Basophils % % Neutrophils # (1.3-7.7) k/uL Lymphocytes # (1.0-4.8) k/uL Monocytes # (0-1.0) k/uL Eosinophils # (0-0.7) k/uL Basophils # (0-0.2) k/uL Hypochromasia D-Dimer (<0.60) mg/L FEU Sodium (137-145) mmol/L Potassium (3.5-5.1) mmol/L Chloride (98-107) mmol/L Carbon Dioxide (22-30) mmol/L Anion Gap mmol/L BUN (7-17) mg/dL Creatinine (0.52-1.04) mg/dL Est GFR (CKD-EPI)AfAm (>60 ml/min/1.73 sqM) Est GFR (CKD-EPI)NonAf (>60 ml/min/1.73 sqM) Glucose (74-99) mg/dL POC Glucose (mg/dL) (75-99) mg/dL POC Glu [employer] Framer ID Osmolality ([phone]) mosm/kg Calcium (8.4-10.2) mg/dL Magnesium (1.6-2.3) mg/dL Total Bilirubin (0.2-1.3) mg/dL AST (14-36) U/L ALT (4-34) U/L Alkaline Phosphatase (38-126) U/L Ammonia (<30) umol/L Creatine Kinase (30-135) U/L Troponin I <0.012 (0.000-0.034) ng/mL NT-Pro-B Natriuret Pep pg/mL Total Protein (6.3-8.2) g/dL Albumin (3.5-5.0) g/dL TSH (0.465-4.680) mIU/L Free T4 (0.78-2.19) ng/dL Urine Color Yellow Urine Appearance Cloudy H (Clear) Urine pH 7.5 (5.0-8.0) Ur Specific [place] 1.016 (1.001-1.035) Urine Protein Negative (Negative) Urine Glucose (UA) Negative (Negative) Urine Ketones Negative (Negative) Urine Blood Trace H (Negative) Urine Nitrite Negative (Negative) Urine Bilirubin Negative (Negative) Urine Urobilinogen 2.0 (<2.0) mg/dL Ur Leukocyte Esterase Trace H (Negative) Urine RBC 15 H (0-5) /hpf Urine WBC 33 H (0-5) /hpf Ur Squamous Epith Cells 4 (0-4) /hpf Urine Bacteria Few H (None) /hpf Urine Mucus Rare H (None) /hpf Urine Yeast (Budding) Few H (None) /hpf Urine Opiates Screen (NotDetected) Ur Oxycodone Screen (NotDetected) Urine Methadone Screen (NotDetected) Ur Propoxyphene Screen (NotDetected) Acetaminophen ug/mL Ur Barbiturates Screen (NotDetected) U Tricyclic Antidepress (NotDetected) Ur Phencyclidine Scrn (NotDetected) Ur Amphetamines Screen (NotDetected) U Methamphetamines Scrn (NotDetected) U Benzodiazepines Scrn (NotDetected) Urine Cocaine Screen (NotDetected) U Marijuana (THC) Screen (NotDetected) Serum Alcohol mg/dL Acetone, Qual (Negative) Influenza Type A (PCR) Not Detected (Not Detectd) Influenza Type B (PCR) Not Detected (Not Detectd) RSV (PCR) Not Detected (Not Detectd) SARS-CoV-2 (PCR) Detected A (Not Detectd) 08/30/21 Range/Units 15:59 WBC (3.8-10.6) k/uL RBC (3.80-5.40) m/uL Hgb (11.4-16.0) gm/dL Hct (34.0-46.0) % MCV (80.0-100.0) fL MCH (25.0-35.0) pg MCHC (31.0-37.0) g/dL RDW (11.5-15.5) % Plt Count (150-450) k/uL MPV Neutrophils % % Lymphocytes % % Monocytes % % Eosinophils % % Basophils % % Neutrophils # (1.3-7.7) k/uL Lymphocytes # (1.0-4.8) k/uL Monocytes # (0-1.0) k/uL Eosinophils # (0-0.7) k/uL Basophils # (0-0.2) k/uL Hypochromasia D-Dimer (<0.60) mg/L FEU Sodium (137-145) mmol/L Potassium (3.5-5.1) mmol/L Chloride (98-107) mmol/L Carbon Dioxide (22-30) mmol/L Anion Gap mmol/L BUN (7-17) mg/dL Creatinine (0.52-1.04) mg/dL Est GFR (CKD-EPI)AfAm (>60 ml/min/1.73 sqM) Est GFR (CKD-EPI)NonAf (>60 ml/min/1.73 sqM) Glucose (74-99) mg/dL POC Glucose (mg/dL) 201 H (75-99) mg/dL POC Glu [employer] Framer ID Preethi Yan Osmolality ([phone]) mosm/kg Calcium (8.4-10.2) mg/dL Magnesium (1.6-2.3) mg/dL Total Bilirubin (0.2-1.3) mg/dL AST (14-36) U/L ALT (4-34) U/L Alkaline Phosphatase (38-126) U/L Ammonia (<30) umol/L Creatine Kinase (30-135) U/L Troponin I (0.000-0.034) ng/mL NT-Pro-B Natriuret Pep pg/mL Total Protein (6.3-8.2) g/dL Albumin (3.5-5.0) g/dL TSH (0.465-4.680) mIU/L Free T4 (0.78-2.19) ng/dL Urine Color Urine Appearance (Clear) Urine pH (5.0-8.0) Ur Specific [place] (1.001-1.035) Urine Protein (Negative) Urine Glucose (UA) (Negative) Urine Ketones (Negative) Urine Blood (Negative) Urine Nitrite (Negative) Urine Bilirubin (Negative) Urine Urobilinogen (<2.0) mg/dL Ur Leukocyte Esterase (Negative) Urine RBC (0-5) /hpf Urine WBC (0-5) /hpf Ur Squamous Epith Cells (0-4) /hpf Urine Bacteria (None) /hpf Urine Mucus (None) /hpf Urine Yeast (Budding) (None) /hpf Urine Opiates Screen (NotDetected) Ur Oxycodone Screen (NotDetected) Urine Methadone Screen (NotDetected) Ur Propoxyphene Screen (NotDetected) Acetaminophen ug/mL Ur Barbiturates Screen (NotDetected) U Tricyclic Antidepress (NotDetected) Ur Phencyclidine Scrn (NotDetected) Ur Amphetamines Screen (NotDetected) U Methamphetamines Scrn (NotDetected) U Benzodiazepines Scrn (NotDetected) Urine Cocaine Screen (NotDetected) U Marijuana (THC) Screen (NotDetected) Serum Alcohol mg/dL Acetone, Qual (Negative) Influenza Type A (PCR) (Not Detectd) Influenza Type B (PCR) (Not Detectd) RSV (PCR) (Not Detectd) SARS-CoV-2 (PCR) (Not Detectd) - Radiology Data Radiology results: report reviewed (Imaging reviewed no acute findings.), image reviewed Disposition Clinical Impression: COVID-19, Elevated d-dimer, Viral syndrome, Failure to thrive in adult, Hypoxemia Disposition: ADMITTED IP TO THIS HOSP Condition: Fair Referrals: Venkatesh Segundo MD [Primary Care Provider] - 1-2 days
[2021-08-30 15:59] LABS: Basophils % (A) 0 %; Eosinophils # (A) 0.2 k/uL (0-0.7); Eosinophils % (A) 2 %; HCT 38.8 % (34.0-46.0); HGB 12.3 gm/dL (11.4-16.0); Hypochromasia Slight; Lymphocytes # (A) 0.3 k/uL (1.0-4.8); Lymphocytes % (A) 4 %; MCH 29.5 pg (25.0-35.0); MCHC 31.6 g/dL (31.0-37.0); MCV 93.5 fL (80.0-100.0); Mean Platelet Volume 8.5; Monocytes # (A) 0.3 k/uL (0-1.0); Monocytes % (A) 4 %; Neutrophils # (A) 7.5 k/uL (1.3-7.7); Neutrophils % (A) 90 %; Platelet Count 204 k/uL (150-450); RBC 4.16 m/uL (3.80-5.40); RDW 14.9 % (11.5-15.5); WBC 8.4 k/uL (3.8-10.6)
[2021-08-30 16:01] LABS: Glucose,Whole Blood 201 mg/dL (75-99)
[2021-08-30 16:13] LABS: ALT 26 U/L (4-34); AST 104 U/L (14-36); Acetaminophen <10.0 ug/mL; African American GFR (CKD) 76 (>60 ml/min/1.73 sqM); Albumin 3.6 g/dL (3.5-5.0); Alcohol <10 mg/dL; Alkaline Phosphatase 174 U/L (38-126); Anion Gap 9 mmol/L; Blood Urea Nitrogen 17 mg/dL (7-17); Calcium 8.1 mg/dL (8.4-10.2); Carbon Dioxide 28 mmol/L (22-30); Chloride 93 mmol/L (98-107); Creatine Kinase 46 U/L (30-135); Glucose 218 mg/dL (74-99); Non-African American GFR(CKD) 65 (>60 ml/min/1.73 sqM); Potassium 4.4 mmol/L (3.5-5.1); Sodium 130 mmol/L (137-145); Total Bilirubin 0.4 mg/dL (0.2-1.3)
--- NOTE | 2021-08-30 16:17 | XR ---
EXAMINATION TYPE: XR chest 2V DATE OF EXAM: 08/30/2021 COMPARISON: 06/09/2021 HISTORY: Shortness of breath TECHNIQUE: Frontal and lateral views of the chest are obtained. FINDINGS: Scattered senescent parenchymal changes noted. Hyperinflation compatible with COPD. No evidence for infiltrate. No evidence for atelectasis. Heart size is stable. Mediastinal structures are stable and grossly unremarkable. No evidence for hilar prominence. Degenerative changes dorsal spine. IMPRESSION: 1. No evidence for acute pulmonary disease.
--- NOTE | 2021-08-30 16:19 | XR ---
EXAMINATION TYPE: XR KUB DATE OF EXAM: 08/30/2021 COMPARISON: NONE HISTORY: Pain TECHNIQUE: Single supine KUB image of the abdomen is obtained FINDINGS: Small bowel demonstrates no evidence for dilatation or air fluid levels. Gas and fecal material is seen in non-distended colon. No convincing evidence for pneumoperitoneum. No unusual calcifications. The lung bases are clear. The osseous structures are intact. IMPRESSION: 1. Overall nonobstructive bowel gas pattern. Moderate fecal stasis.
[2021-08-30 17:09] LABS: T4, Free (Free Thyroxine) 1.42 ng/dL (0.78-2.19)
[2021-08-30 17:35] LABS: Amphetamine Screen,Urine Not Detected (NotDetected); Barbiturate Screen,Urine Detected (NotDetected); Benzodiazepines Screen,Urine Detected (NotDetected); Cocaine Screen,Urine Not Detected (NotDetected); Methadone Screen, Urine Not Detected (NotDetected); Opiate Screen,Urine Not Detected (NotDetected); Oxycodone Screen, Urine Detected (NotDetected); Phencyclidine Screen,Urine Not Detected (NotDetected); Tricyclic Antidepressant,Urine Not Detected (NotDetected); Urn Cannabinoid Scrn Not Detected (NotDetected)
[2021-08-30 17:53] LABS: Appearance,Urine Cloudy (Clear); Bacteria,Urine Few /hpf; Bilirubin,Urine Negative (Negative); Blood,Urine Trace (Negative); Budding Yeast,Urine Few /hpf; Color,Urine Yellow; Glucose,Urine (UA) Negative (Negative); Ketones,Urine Negative (Negative); Leukocyte Esterase,Urine Trace (Negative); Mucus,Urine Rare /hpf; Nitrite,Urine Negative (Negative); PH, Urine 7.5 (5.0-8.0); Protein,Urine Negative (Negative); RBC,Urine 15 /hpf (0-5); Specific Gravity,Urine 1.016 (1.001-1.035); Squamous Epithelial Cell,Urine 4 /hpf (0-4); WBC,Urine 33 /hpf (0-5)
[2021-08-30] MEDS ORDERED: fentaNYL (PF) 50 MCG/ML 2 ML AMP IV STA (18:31)
[2021-08-30] MEDS ORDERED: HYDROmorphone 2 MG TAB PO PRN (19:56)
[2021-08-30] MEDS ORDERED: NALOXONE 0.4 MG/ML 1 ML VIAL IV PRN (19:56)
[2021-08-30] MEDS ORDERED: LIDOCAINE 5% PATCH TOPICAL PRN (20:00)
[2021-08-30] MEDS ORDERED: MECLIZINE 12.5 MG TAB PO PRN (20:00)
[2021-08-30] MEDS ORDERED: HYDROmorphone 1 MG/ML 1 ML SYRINGE IVP STA (20:02)
[2021-08-30] MEDS: ONDANSETRON 4 MG/2 ML VIAL IVP PRN (22:21)
[2021-08-30] MEDS: METOPROLOL TARTRATE 25 MG TAB PO SCH (22:25)
[2021-08-30] MEDS: PRIMIDONE 50 MG TAB PO SCH (22:25)
[2021-08-30] MEDS: traZODone HCL 100 MG TAB PO SCH (22:25)
[2021-08-30] MEDS: DULoxetine HCL 60 MG CAPSULE.DR PO SCH (22:25)
[2021-08-30 22:30] LABS: Glucose,Whole Blood 219 mg/dL (75-99)
--- NOTE | 2021-08-30 22:55 | P.HPIM ---
History of Present Illness H&P Date: 08/30/21 Chief Complaint: general weakness 66 year old female with DM, CAD Patient comes in today complaining of generalized weakness and stomach pain. She describes diffuse abdominal pain with constipation this been going on for a few days she tried some laxatives with no benefit or improvement in symptoms. However she denies any fevers or chills denies any sore throats runny nose or congestion denies any coughing chest pain or trouble breathing denies any nausea vomiting denies any urinary changes denies any shortness of breath. Patient denies any GI bleeding. She describes the pain as vague diffuse abdominal discomfort. She also adds that for the past few days she's been having some generalized body aches and feeling generalized weakness for which she decided come to the hospital for evaluation. However per ED notes patient was having some altered mentation and acting strange and slow after she took some extra oxycodone, that she is currently denying, along with denying earlier complaints documented in the ED note like chest pain and hematuria. workup in the ED CXR no acute pathology COVID positive , patient unvaccinated blood work showing low Na. elevated D dimer , history of blood clots, and factor 5 laiden patient was hypoxic upon presentation to the ED> Review of Systems Pertinent positives as noted in HPI. All other systems were reviewed and are negative Past Medical History Past Medical History: Blood Disorder, Diabetes Mellitus, Deep Vein Thrombosis (DVT), GERD/Reflux, Hyperlipidemia, Hypertension, Myocardial Infarction (CA), Osteoarthritis (OA), Pneumonia, Pulmonary Embolus (PE), Thyroid Disorder Additional Past Medical History / Comment(s): Factor 5 leiden, DVT L leg, PE L lung, MIs x 5, palpitations, IDDM type II, neuropathy bilateral legs/feet, lymphedema L leg, charcot syndrome L foot, chronic low back pain, bilateral sciatica, bronchitis, anemia, hypothyroid, UTI, IBS, sinus problems, worsening tremors, just finished antibiotic for cough, recently "stomach shivering inside" plans to f/u with pcp Last Myocardial Infarction Date:: January 2020 History of Any Multi-Drug Resistant Organisms: None Reported Past Surgical History: Appendectomy, Cholecystectomy, Heart Catheterization With Stent, Hernia Repair, Hysterectomy, Tonsillectomy Additional Past Surgical History / Comment(s): Bilateral salpingectomy, bilateral oophorectomy, abdominal hernia surgeries, L foot fracture with surgery-hardware since removed, bilateral cataract removals, epidural injections with last on 01/20/20 lumbar, LAST PROCEDURE 04/19/21 Past Anesthesia/Blood Transfusion Reactions: No Reported Reaction Additional Past Anesthesia/Blood Transfusion Reaction / Comment(s): Pt has received blood in past without reaction. Date of Last Stent Placement:: January 2020 Past Psychological History: Anxiety, Depression Smoking Status: Former smoker Past Alcohol Use History: None Reported Past Drug Use History: None Reported - Past Family History Mother Additional Family Medical History / Comment(s): Mother was a smoker. Father Family Medical History: Cancer Additional Family Medical History / Comment(s): Lung cancer. Father was a smoker. Son(s) Family Medical History: Deep Vein Thrombosis (DVT) Medications and Allergies Home Medications Medication Instructions Recorded Confirmed Type Clopidogrel [Plavix] 75 mg PO DAILY 07/07/19 08/30/21 History DULoxetine HCL [Cymbalta] 60 mg PO BID 07/07/19 08/30/21 History Levocetirizine Dihydrochloride 5 mg PO DAILY 07/07/19 08/30/21 History [Xyzal] Metoprolol Tartrate [Lopressor] 25 mg PO BID 07/07/19 08/30/21 History Montelukast [Singulair] 10 mg PO DAILY 07/07/19 08/30/21 History traZODone HCL [Desyrel] 200 mg PO HS 07/07/19 08/30/21 History Ezetimibe [Zetia] 10 mg PO DAILY 30 Days #30 tab 01/30/20 08/30/21 Rx Insulin Glargine,Hum.rec.anlog 40 units SQ BID 06/09/21 08/30/21 History [Lantus Solostar Pen] Insulin Lispro [humaLOG Kwikpen] See Protocol SQ ACHS 06/09/21 08/30/21 History ALPRAZolam [Xanax] 2 mg PO TID PRN 08/30/21 08/30/21 History Levothyroxine Sodium [Synthroid] 300 mcg PO DAILY 08/30/21 08/30/21 History Lidocaine 5% Patch [Lidoderm 5% 2 patch TOPICAL DAILY PRN 08/30/21 08/30/21 History Patch] Lisinopril [Prinivil] 10 mg PO DAILY 08/30/21 08/30/21 History Meclizine HCl 12.5 mg PO TID PRN 08/30/21 08/30/21 History Primidone [Mysoline] 50 mg PO QID 08/30/21 08/30/21 History metOLazone [Zaroxolyn] 5 mg PO DAILY 08/30/21 08/30/21 History oxyCODONE HCL [oxyCODONE HCL (IR)] 20 mg PO QID PRN 08/30/21 08/30/21 History Allergies Allergy/AdvReac Type Severity Reaction Status Date / Time Iodinated Contrast Media Allergy Rash/Hives Verified 08/30/21 19:26 Iodine and Iodide Containing Allergy Rash/Hives Verified 08/30/21 19:26 Produc liraglutide [From Saxenda] AdvReac Unknown Nausea & Verified 08/30/21 19:26 Vomiting NSAIDS (Non-Steroidal AdvReac Unknown Nausea & Verified 08/30/21 19:26 Anti-Inflamma Vomiting aspirin AdvReac Nausea & Verified 08/30/21 19:26 Vomiting with high doses azithromycin AdvReac Vomiting Verified 08/30/21 19:26 naproxen [From Naprosyn] AdvReac Nausea & Verified 08/30/21 19:26 Vomiting Physical Exam Vitals: Vital Signs Temp Pulse Pulse Resp BP Pulse Ox 08/30/21 18:42 82 20 130/67 98 08/30/21 17:26 92 22 128/98 93 L 08/30/21 16:57 85 08/30/21 15:15 98.7 F 94 20 93 L Intake and Output 08/30/21 08/30/21 08/30/21 06:59 14:59 22:59 Other: Weight 113.98 kg Constitutional: No acute distress, conversant, pleasant Eyes: Anicteric sclerae, moist conjunctiva, Pupils equal round reactive to light ENMT: NC/AT Oropharynx clear, no erythema, or exudates Neck: Supple, no masses, or JVD No carotid bruits No thyromegaly Lungs: Clear to auscultation Clear to percussion Normal respiratory effort, no accessory muscle use Cardiovascular: Heart regular in rate and rhythm, No murmurs, gallops, or rubs No peripheral edema Abdominal: Soft Nontender, no guarding, rebound or rigidity Abdomen moving with respiration Normoactive bowel sounds No hepatomegaly, No splenomegaly No palpable mass No abdominal wall hernia noted Skin: Normal temperature, tone, texture, turgor No induration No subcutaneous nodules No rash, lesions No ulcers Extremities: No digital cyanosis No clubbing Pedal pulses intact and symmetrical Radial pulses intact and symmetrical No calf tenderness Psychiatric: Alert and oriented to person, place and time Appropriate affect fair judgement Neuro Muscles Strength 4/5 in all 4 extremities Sensation to light touch grossly present throughout Cranial nerves II-XII grossly intact No focal sensory deficits Lymphatics: no palpable cervical or supraclavicular , or inguinal lymph nodes Results CBC & Chem 7: 08/30/21 15:45 08/30/21 15:45 Labs: Abnormal Lab Results - Last 24 Hours (Table) 08/30/21 08/30/21 08/30/21 Range/Units 15:45 15:45 15:45 Lymphocytes # 0.3 L (1.0-4.8) k/uL D-Dimer 1.68 H (<0.60) mg/L FEU Sodium (137-145) mmol/L Chloride (98-107) mmol/L Glucose (74-99) mg/dL POC Glucose (mg/dL) (75-99) mg/dL Calcium (8.4-10.2) mg/dL AST (14-36) U/L Alkaline Phosphatase (38-126) U/L TSH (0.465-4.680) mIU/L Urine Appearance (Clear) Urine Blood (Negative) Ur Leukocyte Esterase (Negative) Urine RBC (0-5) /hpf Urine WBC (0-5) /hpf Urine Bacteria (None) /hpf Urine Mucus (None) /hpf Urine Yeast (Budding) (None) /hpf Ur Oxycodone Screen Detected H (NotDetected) Ur Barbiturates Screen Detected H (NotDetected) U Benzodiazepines Scrn Detected H (NotDetected) SARS-CoV-2 (PCR) (Not Detectd) 08/30/21 08/30/21 08/30/21 Range/Units 15:45 15:45 15:45 Lymphocytes # (1.0-4.8) k/uL D-Dimer (<0.60) mg/L FEU Sodium 130 L (137-145) mmol/L Chloride 93 L (98-107) mmol/L Glucose 218 H (74-99) mg/dL POC Glucose (mg/dL) (75-99) mg/dL Calcium 8.1 L (8.4-10.2) mg/dL AST 104 H (14-36) U/L Alkaline Phosphatase 174 H (38-126) U/L TSH 8.550 H (0.465-4.680) mIU/L Urine Appearance Cloudy H (Clear) Urine Blood Trace H (Negative) Ur Leukocyte Esterase Trace H (Negative) Urine RBC 15 H (0-5) /hpf Urine WBC 33 H (0-5) /hpf Urine Bacteria Few H (None) /hpf Urine Mucus Rare H (None) /hpf Urine Yeast (Budding) Few H (None) /hpf Ur Oxycodone Screen (NotDetected) Ur Barbiturates Screen (NotDetected) U Benzodiazepines Scrn (NotDetected) SARS-CoV-2 (PCR) Detected A (Not Detectd) 08/30/21 Range/Units 15:59 Lymphocytes # (1.0-4.8) k/uL D-Dimer (<0.60) mg/L FEU Sodium (137-145) mmol/L Chloride (98-107) mmol/L Glucose (74-99) mg/dL POC Glucose (mg/dL) 201 H (75-99) mg/dL Calcium (8.4-10.2) mg/dL AST (14-36) U/L Alkaline Phosphatase (38-126) U/L TSH (0.465-4.680) mIU/L Urine Appearance (Clear) Urine Blood (Negative) Ur Leukocyte Esterase (Negative) Urine RBC (0-5) /hpf Urine WBC (0-5) /hpf Urine Bacteria (None) /hpf Urine Mucus (None) /hpf Urine Yeast (Budding) (None) /hpf Ur Oxycodone Screen (NotDetected) Ur Barbiturates Screen (NotDetected) U Benzodiazepines Scrn (NotDetected) SARS-CoV-2 (PCR) (Not Detectd) Assessment and Plan Assessment: acute hypoxic respiratory failure covid constipation plan supportive care gentle IVF hydration with normal saline decadron daily due to history of DVT and PE, along with factor 5 laiden , and currently having elevated D dimer, I will start her on full anticoagulation until PE ruled out patient allergic to contrast and CTA not done tylenol for fever, pain control with opioids follow up ferritin , fibrinogen , LDH,CRP, D dimer pulm consult droplet and contact precautions chronic conditions DM , insulin sliding scale hypertension . resume BP meds, lisinopril h/o CAD resume plavix, statin and other cardiac meds full code anticipated length of stay > 2 midnights DVT PPX full anticoagulation with lovenox for possible PE , patient with factor 5 laiden and history of blood clots, now with covid and elevated d dimer
[2021-08-30] MEDS ORDERED: MORPHINE SULFATE 4 MG/ML SYRINGE IVP PRN (22:58)
[2021-08-30] MEDS: INSULIN DETEMIR (LEVEMIR) 100 UNIT/ML SYR SQ SCH (23:00)
[2021-08-30] MEDS: INSULIN ASPART (NovoLOG) 100 UNIT/ML VIAL SQ SCH (23:01)
[2021-08-31] MEDS: ENOXAPARIN 120 MG/0.8 ML SYRINGE SQ SCH ×3 (00:02→21:07)
[2021-08-31] MEDS: ALPRAZolam 1 MG TAB PO PRN ×4 (00:07→17:58)
[2021-08-31] MEDS: LEVOTHYROXINE 100 MCG TAB PO SCH (05:59)
[2021-08-31] MEDS: SODIUM CHLORIDE 0.9% 1,000 ML IV SCH ×2 (06:01→09:44)
[2021-08-31 07:08] LABS: Glucose,Whole Blood 146 mg/dL (75-99)
[2021-08-31] MEDS: INSULIN DETEMIR (LEVEMIR) 100 UNIT/ML SYR SQ SCH ×2 (07:30→21:12)
[2021-08-31] MEDS: INSULIN ASPART (NovoLOG) 100 UNIT/ML VIAL SQ SCH ×4 (07:30→21:13)
[2021-08-31] MEDS: metOLazone 5 MG TAB PO SCH (07:31)
[2021-08-31] MEDS: EZETIMIBE 10 MG TAB PO SCH (07:31)
[2021-08-31] MEDS: MONTELUKAST 10 MG TAB PO SCH (07:32)
[2021-08-31] MEDS: lisinopriL 10 MG TAB PO SCH (07:32)
[2021-08-31] MEDS: dexAMETHasone 2 MG TAB PO SCH (07:32)
[2021-08-31] MEDS: METOPROLOL TARTRATE 25 MG TAB PO SCH ×2 (07:32→21:05)
[2021-08-31] MEDS: LORATADINE 10 MG TAB PO SCH (07:32)
[2021-08-31] MEDS: CLOPIDOGREL 75 MG TAB PO SCH (07:32)
[2021-08-31] MEDS: PRIMIDONE 50 MG TAB PO SCH ×4 (07:32→21:05)
[2021-08-31] MEDS: DULoxetine HCL 60 MG CAPSULE.DR PO SCH ×2 (07:32→21:05)
[2021-08-31 09:03] LABS: Basophils # (A) 0.03 X 10*3/uL (0.00-0.10); Basophils % (A) 0.5 %; Eosinophils # (A) 0.07 X 10*3/uL (0.04-0.35); Eosinophils % (A) 1.2 %; HCT 36.3 % (37.2-46.3); HGB 10.9 g/dL (12.0-15.0); Lymphocytes # (A) 0.91 X 10*3/uL (0.90-5.00); Lymphocytes % (A) 15.4 %; MCH 28.2 pg (27.0-32.0); MCV 93.8 fL (80.0-97.0); Mean Platelet Volume 10.9 fL (9.5-12.2); Monocytes # (A) 0.54 X 10*3/uL (0.20-1.00); Monocytes % (A) 9.1 %; Neutrophils # (A) 4.34 X 10*3/uL (1.80-7.70); Neutrophils % (A) 73.5 %; Platelet Count 190 X 10*3/uL (140-440); RBC 3.87 X 10*6/uL (4.10-5.20); RDW 14.6 % (11.5-14.5); WBC 5.91 X 10*3/uL (4.50-10.00)
[2021-08-31 09:28] LABS: ALT 26 U/L (8-44); AST 85 U/L (13-35); African American GFR (CKD) 60.2 (60.0-200.0); Albumin 3.4 g/dL (3.8-4.9); Albumin/Globulin Ratio 1.21 (1.60-3.17); Alkaline Phosphatase 153 U/L (41-126); BUN/Creat Ratio 16.82 Ratio (12.00-20.00); Blood Urea Nitrogen 18.5 mg/dL (9.0-27.0); Calcium 8.1 mg/dL (8.7-10.3); Chloride 92 mmol/L (96-109); Ferritin 52.5 ng/mL (10.0-291.0); Globulin 2.8 g/dL (1.6-3.3); Glucose 181 mg/dL (70-110); Non-African American GFR(CKD) 51.9 (60.0-200.0); Potassium 4.4 mmol/L (3.5-5.5); Sodium 131 mmol/L (135-145); Total Bilirubin <0.20 mg/dL (0.30-1.20); Total Protein 6.2 g/dL (6.2-8.2)
[2021-08-31 09:43] LABS: LDH 225 U/L (120-246)
--- NOTE | 2021-08-31 09:48 | NM ---
EXAMINATION TYPE: NM pul perfusion DATE OF EXAM: 08/31/2021 COMPARISON: Chest x-ray from yesterday. Prior nuclear medicine study June 09, 2021 HISTORY: Hypoxemia. COVID. Factor V Leiden coagulopathy. Elevated d-dimer. Following administration of 5.1 mCi Tc 99m MAA. Images obtained post injection. FINDINGS: No perfusion defects identified on images obtained. IMPRESSION: Pulmonary embolism absent (normal or very low probability)
[2021-08-31] MEDS: ONDANSETRON 4 MG/2 ML VIAL IVP PRN (11:44)
[2021-08-31 12:19] LABS: Glucose,Whole Blood 194 mg/dL (75-99)
--- NOTE | 2021-08-31 12:38 | P.PN ---
Subjective Progress Note Date: 08/31/21 Constitutional: No acute distress, conversant, pleasant Eyes: Anicteric sclerae, moist conjunctiva, no lid-lag PERRLA ENMT: NC/AT Oropharynx clear, no erythema, exudates Neck: Supple, FROM, no masses, or JVD No carotid bruits No thyromegaly Lungs: Clear to auscultation Clear to percussion Normal respiratory effort, no accessory muscle use Cardiovascular: Heart regular in rate and rhythm, No murmurs, gallops, or rubs No peripheral edema Abdominal: Soft Nontender, no guarding, rebound or rigidity Abdomen moving with respiration Normoactive bowel sounds No hepatomegaly, No splenomegaly No palpable mass No abdominal wall hernia noted Skin: Normal temperature, tone, texture, turgor No induration No subcutaneous nodules No rash, lesions No ulcers Extremities: No digital cyanosis No clubbing Pedal pulses intact and symmetrical Radial pulses intact and symmetrical Normal gait and station No calf tenderness Psychiatric:Alert and oriented to person, place and time Appropriate affect Intact judgement Neuro: Muscles Strength 5/5 in all 4 extremities Sensation to light touch grossly present throughout Cranial nerves II-XII grossly intact No focal sensory deficits atient comes in today complaining of generalized weakness and stomach pain. She describes diffuse abdominal pain with constipation this been going on for a few days she tried some laxatives with no benefit or improvement in symptoms. However she denies any fevers or chills denies any sore throats runny nose or congestion denies any coughing chest pain or trouble breathing denies any nausea vomiting denies any urinary changes denies any shortness of breath. Patient denies any GI bleeding. She describes the pain as vague diffuse abdominal discomfort. She also adds that for the past few days she's been having some generalized body aches and feeling generalized weakness for which she decided come to the hospital for evaluation. However per ED notes patient was having some altered mentation and acting strange and slow after she took some extra oxycodone, that she is currently denying, along with denying earlier complaints documented in the ED note like chest pain and hematuria. CXR no acute pathology COVID positive , patient unvaccinated Patient likely does have COVID-19 pneumonia we'll start empiric IV antibiotics blood work showing low Na. elevated D dimer , history of blood clots, and factor 5 laiden patient was hypoxic upon presentation to the ED> Objective - Vital Signs Vital signs: Vital Signs Temp 98.9 F 08/31/21 05:57 Pulse 73 08/31/21 05:57 Resp 17 08/31/21 05:57 BP 129/81 08/31/21 05:57 Pulse Ox 96 08/31/21 05:57 Intake & Output 08/30/21 08/31/21 08/31/21 18:59 06:59 18:59 Weight 113.98 kg 113.98 kg Other: Voiding Method Toilet # Voids 3 2 - Labs CBC & Chem 7: 08/31/21 05:29 08/31/21 05:29 Labs: Abnormal Lab Results - Last 24 Hours (Table) 08/30/21 08/30/21 08/30/21 Range/Units 15:45 15:45 15:45 RBC (4.10-5.20) X 10*6/uL Hgb (12.0-15.0) g/dL Hct (37.2-46.3) % MCHC (32.0-37.0) g/dL RDW (11.5-14.5) % Lymphocytes # 0.3 L (1.0-4.8) k/uL D-Dimer 1.68 H (<0.60) mg/L FEU Sodium (137-145) mmol/L Chloride (98-107) mmol/L Est GFR (CKD-EPI)NonAf (60.0-200.0) Glucose (74-99) mg/dL POC Glucose (mg/dL) (75-99) mg/dL Calcium (8.4-10.2) mg/dL Total Bilirubin (0.30-1.20) mg/dL AST (14-36) U/L Alkaline Phosphatase (38-126) U/L C-Reactive Protein (0.00-0.80) mg/dL Albumin (3.8-4.9) g/dL Albumin/Globulin Ratio (1.60-3.17) g/dL TSH (0.465-4.680) mIU/L Urine Appearance (Clear) Urine Blood (Negative) Ur Leukocyte Esterase (Negative) Urine RBC (0-5) /hpf Urine WBC (0-5) /hpf Urine Bacteria (None) /hpf Urine Mucus (None) /hpf Urine Yeast (Budding) (None) /hpf Ur Oxycodone Screen Detected H (NotDetected) Ur Barbiturates Screen Detected H (NotDetected) U Benzodiazepines Scrn Detected H (NotDetected) SARS-CoV-2 (PCR) (Not Detectd) 08/30/21 08/30/21 08/30/21 Range/Units 15:45 15:45 15:45 RBC (4.10-5.20) X 10*6/uL Hgb (12.0-15.0) g/dL Hct (37.2-46.3) % MCHC (32.0-37.0) g/dL RDW (11.5-14.5) % Lymphocytes # (1.0-4.8) k/uL D-Dimer (<0.60) mg/L FEU Sodium 130 L (137-145) mmol/L Chloride 93 L (98-107) mmol/L Est GFR (CKD-EPI)NonAf (60.0-200.0) Glucose 218 H (74-99) mg/dL POC Glucose (mg/dL) (75-99) mg/dL Calcium 8.1 L (8.4-10.2) mg/dL Total Bilirubin (0.30-1.20) mg/dL AST 104 H (14-36) U/L Alkaline Phosphatase 174 H (38-126) U/L C-Reactive Protein (0.00-0.80) mg/dL Albumin (3.8-4.9) g/dL Albumin/Globulin Ratio (1.60-3.17) g/dL TSH 8.550 H (0.465-4.680) mIU/L Urine Appearance Cloudy H (Clear) Urine Blood Trace H (Negative) Ur Leukocyte Esterase Trace H (Negative) Urine RBC 15 H (0-5) /hpf Urine WBC 33 H (0-5) /hpf Urine Bacteria Few H (None) /hpf Urine Mucus Rare H (None) /hpf Urine Yeast (Budding) Few H (None) /hpf Ur Oxycodone Screen (NotDetected) Ur Barbiturates Screen (NotDetected) U Benzodiazepines Scrn (NotDetected) SARS-CoV-2 (PCR) Detected A (Not Detectd) 08/30/21 08/30/21 08/31/21 Range/Units 15:59 22:28 05:29 RBC 3.87 L (4.10-5.20) X 10*6/uL Hgb 10.9 L (12.0-15.0) g/dL Hct 36.3 L (37.2-46.3) % MCHC 30.0 L (32.0-37.0) g/dL RDW 14.6 H (11.5-14.5) % Lymphocytes # (1.0-4.8) k/uL D-Dimer (<0.60) mg/L FEU Sodium (137-145) mmol/L Chloride (98-107) mmol/L Est GFR (CKD-EPI)NonAf (60.0-200.0) Glucose (74-99) mg/dL POC Glucose (mg/dL) 201 H 219 H (75-99) mg/dL Calcium (8.4-10.2) mg/dL Total Bilirubin (0.30-1.20) mg/dL AST (14-36) U/L Alkaline Phosphatase (38-126) U/L C-Reactive Protein (0.00-0.80) mg/dL Albumin (3.8-4.9) g/dL Albumin/Globulin Ratio (1.60-3.17) g/dL TSH (0.465-4.680) mIU/L Urine Appearance (Clear) Urine Blood (Negative) Ur Leukocyte Esterase (Negative) Urine RBC (0-5) /hpf Urine WBC (0-5) /hpf Urine Bacteria (None) /hpf Urine Mucus (None) /hpf Urine Yeast (Budding) (None) /hpf Ur Oxycodone Screen (NotDetected) Ur Barbiturates Screen (NotDetected) U Benzodiazepines Scrn (NotDetected) SARS-CoV-2 (PCR) (Not Detectd) 08/31/21 08/31/21 08/31/21 Range/Units 05:29 05:29 07:07 RBC (4.10-5.20) X 10*6/uL Hgb (12.0-15.0) g/dL Hct (37.2-46.3) % MCHC (32.0-37.0) g/dL RDW (11.5-14.5) % Lymphocytes # (1.0-4.8) k/uL D-Dimer 1.25 H (<0.60) mg/L FEU Sodium 131 L (137-145) mmol/L Chloride 92 L (98-107) mmol/L Est GFR (CKD-EPI)NonAf 51.9 L (60.0-200.0) Glucose 181 H (74-99) mg/dL POC Glucose (mg/dL) 146 H (75-99) mg/dL Calcium 8.1 L (8.4-10.2) mg/dL Total Bilirubin <0.20 L (0.30-1.20) mg/dL AST 85 H (14-36) U/L Alkaline Phosphatase 153 H (38-126) U/L C-Reactive Protein 5.60 H (0.00-0.80) mg/dL Albumin 3.4 L (3.8-4.9) g/dL Albumin/Globulin Ratio 1.21 L (1.60-3.17) g/dL TSH (0.465-4.680) mIU/L Urine Appearance (Clear) Urine Blood (Negative) Ur Leukocyte Esterase (Negative) Urine RBC (0-5) /hpf Urine WBC (0-5) /hpf Urine Bacteria (None) /hpf Urine Mucus (None) /hpf Urine Yeast (Budding) (None) /hpf Ur Oxycodone Screen (NotDetected) Ur Barbiturates Screen (NotDetected) U Benzodiazepines Scrn (NotDetected) SARS-CoV-2 (PCR) (Not Detectd) 08/31/21 Range/Units 12:17 RBC (4.10-5.20) X 10*6/uL Hgb (12.0-15.0) g/dL Hct (37.2-46.3) % MCHC (32.0-37.0) g/dL RDW (11.5-14.5) % Lymphocytes # (1.0-4.8) k/uL D-Dimer (<0.60) mg/L FEU Sodium (137-145) mmol/L Chloride (98-107) mmol/L Est GFR (CKD-EPI)NonAf (60.0-200.0) Glucose (74-99) mg/dL POC Glucose (mg/dL) 194 H (75-99) mg/dL Calcium (8.4-10.2) mg/dL Total Bilirubin (0.30-1.20) mg/dL AST (14-36) U/L Alkaline Phosphatase (38-126) U/L C-Reactive Protein (0.00-0.80) mg/dL Albumin (3.8-4.9) g/dL Albumin/Globulin Ratio (1.60-3.17) g/dL TSH (0.465-4.680) mIU/L Urine Appearance (Clear) Urine Blood (Negative) Ur Leukocyte Esterase (Negative) Urine RBC (0-5) /hpf Urine WBC (0-5) /hpf Urine Bacteria (None) /hpf Urine Mucus (None) /hpf Urine Yeast (Budding) (None) /hpf Ur Oxycodone Screen (NotDetected) Ur Barbiturates Screen (NotDetected) U Benzodiazepines Scrn (NotDetected) SARS-CoV-2 (PCR) (Not Detectd) Microbiology - Last 24 Hours (Table) 08/30/21 15:45 Urine Culture - Preliminary Urine,Clean Catch
[2021-08-31] MEDS: AZITHROMYCIN 500 MG in SODIUM CHLORIDE 0.9% 250 ML IVPB SCH (15:04)
[2021-08-31 16:38] LABS: Glucose,Whole Blood 260 mg/dL (75-99)
[2021-08-31] MEDS: traZODone HCL 100 MG TAB PO SCH (21:05)
[2021-08-31 21:12] LABS: Glucose,Whole Blood 289 mg/dL (75-99)
[2021-09-01] MEDS: SODIUM CHLORIDE 0.9% 1,000 ML IV SCH ×2 (05:44→15:29)
[2021-09-01] MEDS: LEVOTHYROXINE 100 MCG TAB PO SCH (05:44)
[2021-09-01] MEDS: ALPRAZolam 1 MG TAB PO PRN ×3 (05:44→21:02)
[2021-09-01] MEDS: ONDANSETRON 4 MG/2 ML VIAL IVP PRN ×2 (05:47→11:01)
[2021-09-01 07:21] LABS: Glucose,Whole Blood 102 mg/dL (75-99)
[2021-09-01] MEDS: INSULIN ASPART (NovoLOG) 100 UNIT/ML VIAL SQ SCH ×4 (07:24→21:03)
[2021-09-01] MEDS: PRIMIDONE 50 MG TAB PO SCH ×4 (08:19→21:02)
[2021-09-01] MEDS: METOPROLOL TARTRATE 25 MG TAB PO SCH ×2 (08:19→21:02)
[2021-09-01] MEDS: DULoxetine HCL 60 MG CAPSULE.DR PO SCH ×2 (08:19→21:02)
[2021-09-01] MEDS: LORATADINE 10 MG TAB PO SCH (08:19)
[2021-09-01] MEDS: lisinopriL 10 MG TAB PO SCH (08:19)
[2021-09-01] MEDS: INSULIN DETEMIR (LEVEMIR) 100 UNIT/ML SYR SQ SCH ×2 (08:19→21:03)
[2021-09-01] MEDS: MONTELUKAST 10 MG TAB PO SCH (08:19)
[2021-09-01] MEDS: CLOPIDOGREL 75 MG TAB PO SCH (08:19)
[2021-09-01] MEDS: ENOXAPARIN 120 MG/0.8 ML SYRINGE SQ SCH ×2 (08:19→21:12)
[2021-09-01] MEDS: dexAMETHasone 2 MG TAB PO SCH (08:19)
[2021-09-01] MEDS: EZETIMIBE 10 MG TAB PO SCH (08:20)
[2021-09-01 08:26] LABS: Basophils # (A) 0.03 X 10*3/uL (0.00-0.10); Basophils % (A) 0.5 %; Eosinophils # (A) 0.05 X 10*3/uL (0.04-0.35); Eosinophils % (A) 0.8 %; HCT 33.4 % (37.2-46.3); HGB 10.1 g/dL (12.0-15.0); Lymphocytes # (A) 1.83 X 10*3/uL (0.90-5.00); MCH 28.9 pg (27.0-32.0); MCHC 30.2 g/dL (32.0-37.0); MCV 95.7 fL (80.0-97.0); Monocytes # (A) 0.58 X 10*3/uL (0.20-1.00); Monocytes % (A) 9.5 %; Neutrophils # (A) 3.59 X 10*3/uL (1.80-7.70); Neutrophils % (A) 58.9 %; Platelet Count 174 X 10*3/uL (140-440); RBC 3.49 X 10*6/uL (4.10-5.20); RDW 14.9 % (11.5-14.5)
--- NOTE | 2021-09-01 09:02 | P.PN ---
Subjective Progress Note Date: 09/01/21 Principal diagnosis: Patient continues to be weak and short of breath Constitutional: No acute distress, conversant, pleasant Eyes: Anicteric sclerae, moist conjunctiva, no lid-lag PERRLA ENMT: NC/AT Oropharynx clear, no erythema, exudates Neck: Supple, FROM, no masses, or JVD No carotid bruits No thyromegaly Lungs: Clear to auscultation Clear to percussion Normal respiratory effort, no accessory muscle use Cardiovascular: Heart regular in rate and rhythm, No murmurs, gallops, or rubs No peripheral edema Abdominal: Soft Nontender, no guarding, rebound or rigidity Abdomen moving with respiration Normoactive bowel sounds No hepatomegaly, No splenomegaly No palpable mass No abdominal wall hernia noted Skin: Normal temperature, tone, texture, turgor No induration No subcutaneous nodules No rash, lesions No ulcers Extremities: No digital cyanosis No clubbing Pedal pulses intact and symmetrical Radial pulses intact and symmetrical Normal gait and station No calf tenderness Psychiatric:Alert and oriented to person, place and time Appropriate affect Intact judgement Neuro: Muscles Strength 5/5 in all 4 extremities Sensation to light touch grossly present throughout Cranial nerves II-XII grossly intact No focal sensory deficits atient comes in today complaining of generalized weakness and stomach pain. She describes diffuse abdominal pain with constipation this been going on for a few days she tried some laxatives with no benefit or improvement in symptoms. However she denies any fevers or chills denies any sore throats runny nose or congestion denies any coughing chest pain or trouble breathing denies any nausea vomiting denies any urinary changes denies any shortness of breath. Patient denies any GI bleeding. She describes the pain as vague diffuse abdominal discomfort. She also adds that for the past few days she's been having some generalized body aches and feeling generalized weakness for which she decided come to the hospital for evaluation. However per ED notes patient was having some altered mentation and acting strange and slow after she took some extra oxycodone, that she is currently denying, along with denying earlier complaints documented in the ED note like chest pain and hematuria. CXR no acute pathology COVID positive , patient unvaccinated Patient continues to be weak and short of breath we'll continue patient on current supportive treatment and IV antibiotics Patient likely does have COVID-19 pneumonia w blood work showing low Na. elevated D dimer , history of blood clots, and factor 5 laiden patient was hypoxic upon presentation to the ED> Objective - Vital Signs Vital signs: Vital Signs Temp 98.0 F 09/01/21 05:28 Pulse 58 L 09/01/21 05:28 Resp 15 09/01/21 07:00 BP 95/51 09/01/21 05:28 Pulse Ox 95 09/01/21 05:28 Intake & Output 08/31/21 09/01/21 09/01/21 18:59 06:59 18:59 Other: Voiding Method Toilet Toilet # Voids 4 5 # Bowel Movements 1 1 - Labs CBC & Chem 7: 09/01/21 05:20 08/31/21 05:29 Labs: Abnormal Lab Results - Last 24 Hours (Table) 08/31/21 08/31/21 08/31/21 Range/Units 05:29 05:29 12:17 RBC 3.87 L (4.10-5.20) X 10*6/uL Hgb 10.9 L (12.0-15.0) g/dL Hct 36.3 L (37.2-46.3) % MCHC 30.0 L (32.0-37.0) g/dL RDW 14.6 H (11.5-14.5) % Sodium 131 L (135-145) mmol/L Chloride 92 L (96-109) mmol/L Est GFR (CKD-EPI)NonAf 51.9 L (60.0-200.0) Glucose 181 H (70-110) mg/dL POC Glucose (mg/dL) 194 H (75-99) mg/dL Calcium 8.1 L (8.7-10.3) mg/dL Total Bilirubin <0.20 L (0.30-1.20) mg/dL AST 85 H (13-35) U/L Alkaline Phosphatase 153 H (41-126) U/L C-Reactive Protein 5.60 H (0.00-0.80) mg/dL Albumin 3.4 L (3.8-4.9) g/dL Albumin/Globulin Ratio 1.21 L (1.60-3.17) g/dL 08/31/21 08/31/21 09/01/21 Range/Units 16:37 21:10 05:20 RBC 3.49 L (4.10-5.20) X 10*6/uL Hgb 10.1 L (12.0-15.0) g/dL Hct 33.4 L (37.2-46.3) % MCHC 30.2 L (32.0-37.0) g/dL RDW 14.9 H (11.5-14.5) % Sodium (135-145) mmol/L Chloride (96-109) mmol/L Est GFR (CKD-EPI)NonAf (60.0-200.0) Glucose (70-110) mg/dL POC Glucose (mg/dL) 260 H 289 H (75-99) mg/dL Calcium (8.7-10.3) mg/dL Total Bilirubin (0.30-1.20) mg/dL AST (13-35) U/L Alkaline Phosphatase (41-126) U/L C-Reactive Protein (0.00-0.80) mg/dL Albumin (3.8-4.9) g/dL Albumin/Globulin Ratio (1.60-3.17) g/dL 09/01/21 Range/Units 07:19 RBC (4.10-5.20) X 10*6/uL Hgb (12.0-15.0) g/dL Hct (37.2-46.3) % MCHC (32.0-37.0) g/dL RDW (11.5-14.5) % Sodium (135-145) mmol/L Chloride (96-109) mmol/L Est GFR (CKD-EPI)NonAf (60.0-200.0) Glucose (70-110) mg/dL POC Glucose (mg/dL) 102 H (75-99) mg/dL Calcium (8.7-10.3) mg/dL Total Bilirubin (0.30-1.20) mg/dL AST (13-35) U/L Alkaline Phosphatase (41-126) U/L C-Reactive Protein (0.00-0.80) mg/dL Albumin (3.8-4.9) g/dL Albumin/Globulin Ratio (1.60-3.17) g/dL Microbiology - Last 24 Hours (Table) 08/30/21 15:45 Urine Culture - Preliminary Urine,Clean Catch Group D Enterococcus 08/30/21 16:45 Blood Culture - Preliminary Blood No Growth after 24 hours
[2021-09-01] MEDS: metOLazone 5 MG TAB PO SCH (09:45)
[2021-09-01] MEDS ORDERED: MAGNESIUM HYDROXIDE 2,400 MG/10 ML CUP PO PRN (10:32)
[2021-09-01 10:43] LABS: ALT 25 U/L (8-44); AST 82 U/L (13-35); African American GFR (CKD) 67.5 (60.0-200.0); Albumin/Globulin Ratio 1.11 (1.60-3.17); Alkaline Phosphatase 134 U/L (41-126); Blood Urea Nitrogen 20.1 mg/dL (9.0-27.0); Calcium 7.8 mg/dL (8.7-10.3); Carbon Dioxide 23.7 mmol/L (20.0-27.5); Chloride 95 mmol/L (96-109); Globulin 2.7 g/dL (1.6-3.3); Glucose 125 mg/dL (70-110); Non-African American GFR(CKD) 58.2 (60.0-200.0); Potassium 4.1 mmol/L (3.5-5.5); Sodium 130 mmol/L (135-145); Total Bilirubin <0.20 mg/dL (0.30-1.20); Total Protein 5.7 g/dL (6.2-8.2)
[2021-09-01 11:57] LABS: Glucose,Whole Blood 168 mg/dL (75-99)
[2021-09-01] MEDS: AZITHROMYCIN 500 MG in SODIUM CHLORIDE 0.9% 250 ML IVPB SCH (14:48)
[2021-09-01 16:57] LABS: Glucose,Whole Blood 274 mg/dL (75-99)
[2021-09-01 20:19] LABS: Glucose,Whole Blood 233 mg/dL (75-99)
[2021-09-01] MEDS: traZODone HCL 100 MG TAB PO SCH (21:02)
[2021-09-01] MEDS: ASCORBIC ACID 500 MG TAB PO SCH (21:12)
[2021-09-02] MEDS: ALPRAZolam 1 MG TAB PO PRN (04:55)
[2021-09-02] MEDS: LEVOTHYROXINE 100 MCG TAB PO SCH (04:55)
[2021-09-02] MEDS: SODIUM CHLORIDE 0.9% 1,000 ML IV SCH (04:58)
[2021-09-02 06:11] VITALS: RESP 17
[2021-09-02 06:20] LABS: Basophils % (A) 1 %; Eosinophils # (A) 0.1 k/uL (0-0.7); Eosinophils % (A) 1 %; HCT 42.2 % (34.0-46.0); HGB 13.4 gm/dL (11.4-16.0); Hypochromasia Slight; Lymphocytes # (A) 1.5 k/uL (1.0-4.8); Lymphocytes % (A) 33 %; MCH 29.7 pg (25.0-35.0); MCHC 31.8 g/dL (31.0-37.0); MCV 93.4 fL (80.0-100.0); Mean Platelet Volume 9.3; Monocytes # (A) 0.3 k/uL (0-1.0); Monocytes % (A) 7 %; Neutrophils # (A) 2.6 k/uL (1.3-7.7); Neutrophils % (A) 55 %; Platelet Count 190 k/uL (150-450); RBC 4.52 m/uL (3.80-5.40); WBC 4.7 k/uL (3.8-10.6)
[2021-09-02 06:30] LABS: ALT 31 U/L (4-34); AST 100 U/L (14-36); African American GFR (CKD) 76 (>60 ml/min/1.73 sqM); Albumin 3.8 g/dL (3.5-5.0); Alkaline Phosphatase 165 U/L (38-126); Anion Gap 8 mmol/L; Blood Urea Nitrogen 18 mg/dL (7-17); Calcium 8.5 mg/dL (8.4-10.2); Carbon Dioxide 25 mmol/L (22-30); Chloride 101 mmol/L (98-107); Glucose 56 mg/dL (74-99); Non-African American GFR(CKD) 65 (>60 ml/min/1.73 sqM); Potassium 4.4 mmol/L (3.5-5.1); Sodium 134 mmol/L (137-145); Total Bilirubin 0.5 mg/dL (0.2-1.3); Total Protein 7.8 g/dL (6.3-8.2)
[2021-09-02 06:49] LABS: Glucose,Whole Blood 106 mg/dL (75-99)
[2021-09-02] MEDS: INSULIN ASPART (NovoLOG) 100 UNIT/ML VIAL SQ SCH (07:23)
[2021-09-02] MEDS: INSULIN DETEMIR (LEVEMIR) 100 UNIT/ML SYR SQ SCH (08:52)
[2021-09-02] MEDS: EZETIMIBE 10 MG TAB PO SCH (08:52)
[2021-09-02] MEDS: MONTELUKAST 10 MG TAB PO SCH (08:52)
[2021-09-02] MEDS: ASCORBIC ACID 500 MG TAB PO SCH (08:52)
[2021-09-02] MEDS: ENOXAPARIN 120 MG/0.8 ML SYRINGE SQ SCH (08:52)
--- NOTE | 2021-09-02 08:52 | P.DS ---
Providers Date of admission: 09/01/21 07:43 Expected date of discharge: 09/02/21 Attending physician: Lianna Nassar MD Primary care physician: Venkatesh Segundo MD Hospital Course: 66-year-old female admitted to the hospital with COVID-19 pneumonia was hypoxic on oxygen overall improved on IV antibiotics and steroids today the patient feels much better off oxygen wants to go home During the hot sensate patient remained stable Constitutional: No acute distress, conversant, pleasant Eyes: Anicteric sclerae, moist conjunctiva, no lid-lag PERRLA ENMT: NC/AT Oropharynx clear, no erythema, exudates Neck: Supple, FROM, no masses, or JVD No carotid bruits No thyromegaly Lungs: Clear to auscultation Clear to percussion Normal respiratory effort, no accessory muscle use Cardiovascular: Heart regular in rate and rhythm, No murmurs, gallops, or rubs No peripheral edema Abdominal: Soft Nontender, no guarding, rebound or rigidity Abdomen moving with respiration Normoactive bowel sounds No hepatomegaly, No splenomegaly No pa lpable mass No abdominal wall hernia noted Skin: Normal temperature, tone, texture, turgor No induration No subcutaneous nodules No rash, lesions No ulcers Extremities: No digital cyanosis No clubbing Pedal pulses intact and symmetrical Radial pulses intact and symmetrical Normal gait and station No calf tenderness Psychiatric:Alert and oriented to person, place and time Appropriate affect Inta ct judgement Neuro: Muscles Strength 5/5 in all 4 extremities Sensation to light touch grossly present throughout Cranial nerves II-XII grossly intact No focal sensory deficits Discharge plan COVID-19 pneumonia clinically improved off oxygen patient has been discharged on by mouth antibiotics and steroids to follow-up with primary care physician Hypoxia acute hypoxic respiratory failure resolved off oxygen Patient Condition at Discharge: Fair Plan - Discharge Summary Discharge Rx Participant: No New Discharge Prescriptions: New Cefdinir 300 mg PO Q12HR 5 Days #10 cap Azithromycin [Zithromax] 500 mg PO DAILY 5 Days #5 tab Dexamethasone [Decadron] 4 mg PO DAILY 4 Days #4 tablet Continue Montelukast [Singulair] 10 mg PO DAILY Metoprolol Tartrate [Lopressor] 25 mg PO BID Clopidogrel [Plavix] 75 mg PO DAILY DULoxetine HCL [Cymbalta] 60 mg PO BID traZODone HCL [Desyrel] 200 mg PO HS Levocetirizine Dihydrochloride [Xyzal] 5 mg PO DAILY Ezetimibe [Zetia] 10 mg PO DAILY 30 Days #30 tab Insulin Lispro [humaLOG Kwikpen] See Protocol SQ ACHS Insulin Glargine,Hum.rec.anlog [Lantus Solostar Pen] 40 units SQ BID Primidone [Mysoline] 50 mg PO QID oxyCODONE HCL [oxyCODONE HCL (IR)] 20 mg PO QID PRN PRN Reason: Pain metOLazone [Zaroxolyn] 5 mg PO DAILY Meclizine HCl 12.5 mg PO TID PRN PRN Reason: Vertigo Lisinopril [Prinivil] 10 mg PO DAILY Lidocaine 5% Patch [Lidoderm 5% Patch] 2 patch TOPICAL DAILY PRN PRN Reason: Pain Levothyroxine Sodium [Synthroid] 300 mcg PO DAILY ALPRAZolam [Xanax] 2 mg PO TID PRN PRN Reason: Anxiety Discharge Medication List Clopidogrel [Plavix] 75 mg PO DAILY 07/07/19 [History] DULoxetine HCL [Cymbalta] 60 mg PO BID 07/07/19 [History] Levocetirizine Dihydrochloride [Xyzal] 5 mg PO DAILY 07/07/19 [History] Metoprolol Tartrate [Lopressor] 25 mg PO BID 07/07/19 [History] Montelukast [Singulair] 10 mg PO DAILY 07/07/19 [History] traZODone HCL [Desyrel] 200 mg PO HS 07/07/19 [History] Ezetimibe [Zetia] 10 mg PO DAILY 30 Days #30 tab 01/30/20 [Rx] Insulin Glargine,Hum.rec.anlog [Lantus Solostar Pen] 40 units SQ BID 06/09/21 [History] Insulin Lispro [humaLOG Kwikpen] See Protocol SQ ACHS 06/09/21 [History] ALPRAZolam [Xanax] 2 mg PO TID PRN 08/30/21 [History] Levothyroxine Sodium [Synthroid] 300 mcg PO DAILY 08/30/21 [History] Lidocaine 5% Patch [Lidoderm 5% Patch] 2 patch TOPICAL DAILY PRN 08/30/21 [History] Lisinopril [Prinivil] 10 mg PO DAILY 08/30/21 [History] Meclizine HCl 12.5 mg PO TID PRN 08/30/21 [History] Primidone [Mysoline] 50 mg PO QID 08/30/21 [History] metOLazone [Zaroxolyn] 5 mg PO DAILY 08/30/21 [History] oxyCODONE HCL [oxyCODONE HCL (IR)] 20 mg PO QID PRN 08/30/21 [History] Azithromycin [Zithromax] 500 mg PO DAILY 5 Days #5 tab 09/02/21 [Rx] Cefdinir 300 mg PO Q12HR 5 Days #10 cap 09/02/21 [Rx] Dexamethasone [Decadron] 4 mg PO DAILY 4 Days #4 tablet 09/02/21 [Rx] Follow up Appointment(s)/Referral(s): Venkatesh Segundo MD [Primary Care Provider] - 1-2 days Discharge Disposition: HOME SELF-CARE
[2021-09-02] MEDS: dexAMETHasone 2 MG TAB PO SCH (08:53)
[2021-09-02] MEDS: LORATADINE 10 MG TAB PO SCH (08:53)
[2021-09-02] MEDS: lisinopriL 10 MG TAB PO SCH (08:53)
[2021-09-02] MEDS: METOPROLOL TARTRATE 25 MG TAB PO SCH (08:54)
[2021-09-02] MEDS: PRIMIDONE 50 MG TAB PO SCH (08:54)
[2021-09-02] MEDS: DULoxetine HCL 60 MG CAPSULE.DR PO SCH (08:54)
[2021-09-02] MEDS: metOLazone 5 MG TAB PO SCH (08:54)
[2021-09-02] MEDS: CLOPIDOGREL 75 MG TAB PO SCH (08:55)
[2021-09-02 08:58] VITALS: BP 144/68; PULSE 71; TEMP 98.5
[2021-09-02] MEDS ORDERED: CHOLECALCIFEROL 25 MCG (1000 IU) TABLET PO SCH (09:00)
[2021-09-02] MEDS ORDERED: ZINC SULFATE 220 MG CAP PO SCH (09:00)
== END 2021-09-02 10:51 | disposition home or self-care (01) | DRG 177 ==
LOC: EC 15:10 → 4SSUR 19:57 → INTOOBSV 09-01 07:43 → OBSVTOIN 09-01 07:43
PROVIDERS: ADMIT Internal Medicine; ATTEND Internal Medicine
DX: U07.1 COVID-19 (principal); J12.82 Pneumonia due to coronavirus disease 2019; J96.01 Acute respiratory failure with hypoxia; D68.51 Activated protein C resistance; E03.9 Hypothyroidism, unspecified; E11.41 Type 2 diabetes mellitus with diabetic mononeuropathy; E78.5 Hyperlipidemia, unspecified; F32.A Depression, unspecified; F41.9 Anxiety disorder, unspecified; I10 Essential (primary) hypertension; I25.10 Atherosclerotic heart disease of native coronary artery without angina pectoris; I25.2 Old myocardial infarction; K59.00 Constipation, unspecified; R62.7 Adult failure to thrive; Z79.02 Long term (current) use of antithrombotics/antiplatelets; Z79.1 Long term (current) use of non-steroidal anti-inflammatories (NSAID); Z79.4 Long term (current) use of insulin; Z79.82 Long term (current) use of aspirin; Z79.890 Hormone replacement therapy; Z79.899 Other long term (current) drug therapy; Z80.1 Family history of malignant neoplasm of trachea, bronchus and lung; Z86.711 Personal history of pulmonary embolism; Z86.718 Personal history of other venous thrombosis and embolism; Z87.891 Personal history of nicotine dependence; Z90.710 Acquired absence of both cervix and uterus
CPT/HCPCS: 36415; 71046; 74018; 78580; 80053; 80143; 80306; 80320; 81001; 82009; 82140; 82550; 82728; 83615; 83735; 83880; 83930; 84439; 84443; 84484; 85025; 85379; 85384; 86140; 87040; 87077; 87086; 87186; 87636; 93005; 94760; 96374; 99285

== ENCOUNTER 2021-09-10 18:20 | Observation (INO) | payer MEDICARE, BC ==
[2021-09-10 19:25] LABS: Basophils % (A) 1 %; Eosinophils # (A) 0.1 k/uL (0-0.7); Eosinophils % (A) 2 %; HCT 37.5 % (34.0-46.0); Hypochromasia Slight; Lymphocytes # (A) 0.8 k/uL (1.0-4.8); Lymphocytes % (A) 16 %; MCV 93.7 fL (80.0-100.0); Mean Platelet Volume 8.7; Monocytes # (A) 0.3 k/uL (0-1.0); Monocytes % (A) 5 %; Neutrophils # (A) 3.9 k/uL (1.3-7.7); Neutrophils % (A) 75 %; Platelet Count 188 k/uL (150-450); WBC 5.2 k/uL (3.8-10.6)
[2021-09-10 19:37] LABS: Albumin 3.5 g/dL (3.5-5.0); Calcium 7.9 mg/dL (8.4-10.2); Potassium 4.7 mmol/L (3.5-5.1); Total Bilirubin 0.6 mg/dL (0.2-1.3)
--- NOTE | 2021-09-10 21:17 | ED ---
General Adult HPI - General Chief complaint: Overdose Stated complaint: overdose Source: patient, EMS Mode of arrival: EMS Limitations: no limitations - History of Present Illness Initial comments: Rosalinda is a pleasant 66yo F with extensive PMH is brought to the ER today by EMS. Family expressed EMS the patient has had multiple falls, they're concerned that she is taking too much medications. Daughter reports that she does have a walker and uses it but she's been unsteady on her feet. Patient denies taking too much of her medications. She states that she takes them exactly as prescribed but that her family's been accusing her of taking too much. Patient states that her family tackled her to the ground today telling her that she had taken too much medication. - Related Data Home Medications Medication Instructions Recorded Confirmed Clopidogrel [Plavix] 75 mg PO DAILY 07/07/19 09/10/21 DULoxetine HCL [Cymbalta] 60 mg PO BID 07/07/19 09/10/21 Levocetirizine Dihydrochloride 5 mg PO DAILY 07/07/19 09/10/21 [Xyzal] Metoprolol Tartrate [Lopressor] 25 mg PO BID 07/07/19 09/10/21 Montelukast [Singulair] 10 mg PO DAILY 07/07/19 09/10/21 traZODone HCL [Desyrel] 200 mg PO HS 07/07/19 09/10/21 Insulin Glargine,Hum.rec.anlog 40 units SQ BID 06/09/21 09/10/21 [Lantus Solostar Pen] Insulin Lispro [humaLOG Kwikpen] See Protocol SQ ACHS 06/09/21 09/10/21 ALPRAZolam [Xanax] 2 mg PO TID PRN 08/30/21 09/10/21 Levothyroxine Sodium [Synthroid] 300 mcg PO DAILY 08/30/21 09/10/21 Lidocaine 5% Patch [Lidoderm 5% 2 patch TOPICAL DAILY PRN 08/30/21 09/10/21 Patch] Lisinopril [Prinivil] 10 mg PO DAILY 08/30/21 09/10/21 Meclizine HCl 12.5 mg PO TID PRN 08/30/21 09/10/21 Primidone [Mysoline] 50 mg PO QID 08/30/21 09/10/21 metOLazone [Zaroxolyn] 5 mg PO DAILY 08/30/21 09/10/21 oxyCODONE HCL [oxyCODONE HCL (IR)] 20 mg PO Q4-6H PRN 08/30/21 09/10/21 Metoclopramide [Reglan] 5 mg PO AC-TID 09/10/21 09/10/21 Naloxone HCl [Narcan] 4 mg NASAL DAILY PRN 09/10/21 09/10/21 Previous Rx's Medication Instructions Recorded Ezetimibe [Zetia] 10 mg PO DAILY 30 Days #30 tab 01/30/20 Allergies Allergy/AdvReac Type Severity Reaction Status Date / Time Iodinated Contrast Media Allergy Rash/Hives Verified 09/10/21 19:01 Iodine and Iodide Containing Allergy Rash/Hives Verified 09/10/21 19:01 Produc liraglutide [From Saxenda] AdvReac Unknown Nausea & Verified 09/10/21 19:01 Vomiting NSAIDS (Non-Steroidal AdvReac Unknown Nausea & Verified 09/10/21 19:01 Anti-Inflamma Vomiting aspirin AdvReac Nausea & Verified 09/10/21 19:01 Vomiting with high doses azithromycin AdvReac Vomiting Verified 09/10/21 19:01 naproxen [From Naprosyn] AdvReac Nausea & Verified 09/10/21 19:01 Vomiting Review of Systems ROS Statement: Those systems with pertinent positive or pertinent negative responses have been documented in the HPI. ROS Other: All systems not noted in ROS Statement are negative. Past Medical History Past Medical History: Blood Disorder, Diabetes Mellitus, Deep Vein Thrombosis (DVT), GERD/Reflux, Hyperlipidemia, Hypertension, Myocardial Infarction ([place]), Osteoarthritis (OA), Pneumonia, Pulmonary Embolus (PE), Thyroid Disorder Additional Past Medical History / Comment(s): Factor 5 leiden, DVT L leg, PE L lung, MIs x 5, palpitations, IDDM type II, neuropathy bilateral legs/feet, lymphedema L leg, charcot syndrome L foot, chronic low back pain, bilateral sciatica, bronchitis, anemia, hypothyroid, UTI, IBS, sinus problems, worsening tremors, just finished antibiotic for cough, recently "stomach shivering inside" plans to f/u with pcp Last Myocardial Infarction Date:: January 2020 History of Any Multi-Drug Resistant Organisms: None Reported Past Surgical History: Appendectomy, Cholecystectomy, Heart Catheterization With Stent, Hernia Repair, Hysterectomy, Tonsillectomy Additional Past Surgical History / Comment(s): Bilateral salpingectomy, bilateral oophorectomy, abdominal hernia surgeries, L foot fracture with surgery-hardware since removed, bilateral cataract removals, epidural injections with last on 01/20/20 lumbar, LAST PROCEDURE 04/19/21 Past Anesthesia/Blood Transfusion Reactions: No Reported Reaction Additional Past Anesthesia/Blood Transfusion Reaction / Comment(s): Pt has received blood in past without reaction. Date of Last Stent Placement:: January 2020 Past Psychological History: Anxiety, Depression Smoking Status: Former smoker Past Alcohol Use History: None Reported Past Drug Use History: None Reported - Past Family History Mother Additional Family Medical History / Comment(s): Mother was a smoker. Father Family Medical History: Cancer Additional Family Medical History / Comment(s): Lung cancer. Father was a smoker. Son(s) Family Medical History: Deep Vein Thrombosis (DVT) General Exam - General Exam Comments Initial Comments: Physical Exam GENERAL: Chronically ill appearing, appears older than stated age Obese No acute distress HENT: Normocephalic, Atraumatic. EYES: PERRL, EOMI Pupils 3mm reactive PULMONARY: Unlabored respirations. No audible rales rhonchi or wheezing was noted. CARDIOVASCULAR: There is a regular rate and rhythm without any murmurs gallops or rubs. ABDOMEN: Soft and nontender with normal bowel sounds. SKIN: Skin is clear with no lesions or rashes and otherwise unremarkable. : Deferred NEUROLOGIC: Patient is alert and oriented x3. Moving all extremities spontaneously MUSCULOSKELETAL: Normal extremities with adequate strength and full range of motion. No lower extremity swelling or edema. No calf tenderness. PSYCHIATRIC: Normal psychiatric evaluation. Limitations: no limitations Course Vital Signs 09/10/21 09/10/21 18:27 19:31 Temperature 98.0 F Pulse Rate 77 77 Respiratory 18 18 Rate Blood Pressure 97/55 122/67 O2 Sat by Pulse 97 92 L Oximetry EKG Findings - EKG Comments: EKG Findings:: EKG was obtained at 2032 rate is 11 rhythm is sinus tach normal axis normal intervals no chest elevations or depressions no evidence of ischemia or infarction Medical Decision Making - Medical Decision Making She was seen and evaluated history is obtained from EMS, patient and family Patient story does not correlate with the family member, family concerning the patient is being overmedicated and falling patient reports the family tackled her and denies taking excessive medications Labs are obtained patient does have some petechiae and hyponatremia Given the patient's advanced age, falls at home, concern about safety at home I don't feel she is safe for discharge home. Discussed with the patient who would prefer discharge home but is agreeable with the remaining in the hospital. Daughter agrees it would be safest for her to remain in the hospital. Patient care was discussed with Dr. Nassar agrees with plan for admission with possible consults to physical therapy and social work Patient complaining of severe back pain, chronic in nature, patient home medication was ordered - Lab Data Result diagrams: 09/10/21 18:53 09/10/21 18:53 Lab Results 09/10/21 09/10/21 Range/Units 18:53 18:53 WBC 5.2 (3.8-10.6) k/uL RBC 4.00 (3.80-5.40) m/uL Hgb 12.0 (11.4-16.0) gm/dL Hct 37.5 (34.0-46.0) % MCV 93.7 (80.0-100.0) fL MCH 30.0 (25.0-35.0) pg MCHC 32.0 (31.0-37.0) g/dL RDW 15.0 (11.5-15.5) % Plt Count 188 (150-450) k/uL MPV 8.7 Neutrophils % 75 % Lymphocytes % 16 % Monocytes % 5 % Eosinophils % 2 % Basophils % 1 % Neutrophils # 3.9 (1.3-7.7) k/uL Lymphocytes # 0.8 L (1.0-4.8) k/uL Monocytes # 0.3 (0-1.0) k/uL Eosinophils # 0.1 (0-0.7) k/uL Basophils # 0.0 (0-0.2) k/uL Hypochromasia Slight Sodium 131 L (137-145) mmol/L Potassium 4.7 (3.5-5.1) mmol/L Chloride 95 L (98-107) mmol/L Carbon Dioxide 25 (22-30) mmol/L Anion Gap 11 mmol/L BUN 38 H (7-17) mg/dL Creatinine 1.67 H (0.52-1.04) mg/dL Est GFR (CKD-EPI)AfAm 36 (>60 ml/min/1.73 sqM) Est GFR (CKD-EPI)NonAf 32 (>60 ml/min/1.73 sqM) Glucose 260 H (74-99) mg/dL Calcium 7.9 L (8.4-10.2) mg/dL Total Bilirubin 0.6 (0.2-1.3) mg/dL AST 46 H (14-36) U/L ALT 33 (4-34) U/L Alkaline Phosphatase 156 H (38-126) U/L Total Protein 7.0 (6.3-8.2) g/dL Albumin 3.5 (3.5-5.0) g/dL Disposition Clinical Impression: LIAM (acute kidney injury), Falls, Acute encephalopathy Disposition: ADMITTED IP TO THIS HOSP Condition: Serious Referrals: Venkatesh Segundo MD [Primary Care Provider] - 1-2 days
[2021-09-10] MEDS ORDERED: dexAMETHasone 2 MG TAB PO SCH (23:00)
[2021-09-10] MEDS: METOPROLOL TARTRATE 25 MG TAB PO SCH (23:27)
[2021-09-10] MEDS: INSULIN ASPART (NovoLOG) 100 UNIT/ML VIAL SQ SCH (23:27)
[2021-09-11 01:11] LABS: C Reactive Protein 14.2 mg/dL (<1.0)
[2021-09-11] MEDS ORDERED: NALOXONE 0.4 MG/ML 1 ML VIAL IV PRN (03:09)
--- NOTE | 2021-09-11 03:55 | P.HPIM ---
History of Present Illness H&P Date: 09/10/21 Chief Complaint: fall at home 66 year old female with DM , hypertension , hypothyroid patient comes in for evaluation today, as her family were concerned about her falling frequently at home and being unsteady on her feet despite using a walker. they were worried she might be taking too much pain meds. patient herself , is denying any medical concerns , she denies any respiratory symptoms, fever, chills, chest pain or trouble breathing. she denies nausea, vomiting, abd pain , bowel habit changes, urinary changes. she denies any focal neuro deficits. she claims the only reason she fell, is because her daughter tripped her and made her fall, which she is not sure why, however, she reports feeling safe at home , and supported. she was recently discharged from the hospital on 08/30/21 where she was treated for COVID workup in the ED showed possible dehydration , LIAM , and hyponatremia Review of Systems Pertinent positives as noted in HPI. All other systems were reviewed and are negative Past Medical History Past Medical History: Blood Disorder, Diabetes Mellitus, Deep Vein Thrombosis (DVT), GERD/Reflux, Hyperlipidemia, Hypertension, Myocardial Infarction ([place]), Osteoarthritis (OA), Pneumonia, Pulmonary Embolus (PE), Thyroid Disorder Additional Past Medical History / Comment(s): Factor 5 leiden, DVT L leg, PE L lung, MIs x 5, palpitations, IDDM type II, neuropathy bilateral legs/feet, lymphedema L leg, charcot syndrome L foot, chronic low back pain, bilateral sciatica, bronchitis, anemia, hypothyroid, UTI, IBS, sinus problems, worsening tremors, just finished antibiotic for cough, recently "stomach shivering inside" plans to f/u with pcp Last Myocardial Infarction Date:: January 2020 History of Any Multi-Drug Resistant Organisms: None Reported Past Surgical History: Appendectomy, Cholecystectomy, Heart Catheterization With Stent, Hernia Repair, Hysterectomy, Tonsillectomy Additional Past Surgical History / Comment(s): Bilateral salpingectomy, bilateral oophorectomy, abdominal hernia surgeries, L foot fracture with surgery-hardware since removed, bilateral cataract removals, epidural injections with last on 01/20/20 lumbar, LAST PROCEDURE 04/19/21 Past Anesthesia/Blood Transfusion Reactions: No Reported Reaction Additional Past Anesthesia/Blood Transfusion Reaction / Comment(s): Pt has received blood in past without reaction. Date of Last Stent Placement:: January 2020 Past Psychological History: Anxiety, Depression Smoking Status: Former smoker Past Alcohol Use History: None Reported Past Drug Use History: None Reported - Past Family History Mother Additional Family Medical History / Comment(s): Mother was a smoker. Father Family Medical History: Cancer Additional Family Medical History / Comment(s): Lung cancer. Father was a smoker. Son(s) Family Medical History: Deep Vein Thrombosis (DVT) Medications and Allergies Home Medications Medication Instructions Recorded Confirmed Type Clopidogrel [Plavix] 75 mg PO DAILY 07/07/19 09/10/21 History DULoxetine HCL [Cymbalta] 60 mg PO BID 07/07/19 09/10/21 History Levocetirizine Dihydrochloride 5 mg PO DAILY 07/07/19 09/10/21 History [Xyzal] Metoprolol Tartrate [Lopressor] 25 mg PO BID 07/07/19 09/10/21 History Montelukast [Singulair] 10 mg PO DAILY 07/07/19 09/10/21 History traZODone HCL [Desyrel] 200 mg PO HS 07/07/19 09/10/21 History Ezetimibe [Zetia] 10 mg PO DAILY 30 Days #30 tab 01/30/20 09/10/21 Rx Insulin Glargine,Hum.rec.anlog 40 units SQ BID 06/09/21 09/10/21 History [Lantus Solostar Pen] Insulin Lispro [humaLOG Kwikpen] See Protocol SQ ACHS 06/09/21 09/10/21 History ALPRAZolam [Xanax] 2 mg PO TID PRN 08/30/21 09/10/21 History Levothyroxine Sodium [Synthroid] 300 mcg PO DAILY 08/30/21 09/10/21 History Lidocaine 5% Patch [Lidoderm 5% 2 patch TOPICAL DAILY PRN 08/30/21 09/10/21 History Patch] Lisinopril [Prinivil] 10 mg PO DAILY 08/30/21 09/10/21 History Meclizine HCl 12.5 mg PO TID PRN 08/30/21 09/10/21 History Primidone [Mysoline] 50 mg PO QID 08/30/21 09/10/21 History metOLazone [Zaroxolyn] 5 mg PO DAILY 08/30/21 09/10/21 History oxyCODONE HCL [oxyCODONE HCL (IR)] 20 mg PO Q4-6H PRN 08/30/21 09/10/21 History Metoclopramide [Reglan] 5 mg PO AC-TID 09/10/21 09/10/21 History Naloxone HCl [Narcan] 4 mg NASAL DAILY PRN 09/10/21 09/10/21 History Allergies Allergy/AdvReac Type Severity Reaction Status Date / Time Iodinated Contrast Media Allergy Rash/Hives Verified 09/10/21 19:01 Iodine and Iodide Containing Allergy Rash/Hives Verified 09/10/21 19:01 Produc liraglutide [From Saxenda] AdvReac Unknown Nausea & Verified 09/10/21 19:01 Vomiting NSAIDS (Non-Steroidal AdvReac Unknown Nausea & Verified 09/10/21 19:01 Anti-Inflamma Vomiting aspirin AdvReac Nausea & Verified 09/10/21 19:01 Vomiting with high doses azithromycin AdvReac Vomiting Verified 09/10/21 19:01 naproxen [From Naprosyn] AdvReac Nausea & Verified 09/10/21 19:01 Vomiting Physical Exam Vitals: Vital Signs Temp Pulse Resp BP Pulse Ox 09/10/21 19:31 77 18 122/67 92 L 09/10/21 18:27 98.0 F 77 18 97/55 97 Intake and Output 09/10/21 09/10/21 09/10/21 06:59 14:59 22:59 Other: Weight 113.398 kg Constitutional: No acute distress, conversant, pleasant Eyes: Anicteric sclerae, moist conjunctiva, Pupils equal round reactive to light ENMT: NC/AT Oropharynx clear, no erythema, or exudates Neck: Supple, no masses, or JVD No carotid bruits No thyromegaly Lungs: Clear to auscultation Clear to percussion Normal respiratory effort, no accessory muscle use Cardiovascular: Heart regular in rate and rhythm, No murmurs, gallops, or rubs No peripheral edema Abdominal: Soft Nontender, no guarding, rebound or rigidity Abdomen moving with respiration Normoactive bowel sounds No hepatomegaly, No splenomegaly No palpable mass No abdominal wall hernia noted Skin: chronic skin changes over left lower one third of the leg., otherwise Normal temperature, tone, texture, turgor No induration No subcutaneous nodules No rash, lesions No ulcers Extremities: No digital cyanosis No clubbing Pedal pulses intact and symmetrical Radial pulses intact and symmetrical No calf tenderness Psychiatric: Alert and oriented to person, place and time Appropriate affect fair judgement Neuro Muscles Strength 3/5 in bilateral lower extremities, and 4/5 bi lateral upper extremities Sensation to light touch grossly present throughout Cranial nerves II-XII grossly intact Lymphatics: no palpable cervical or supraclavicular , or inguinal lymph nodes Results CBC & Chem 7: 09/10/21 18:53 09/10/21 18:53 Labs: Abnormal Lab Results - Last 24 Hours (Table) 09/10/21 09/10/21 Range/Units 18:53 18:53 Lymphocytes # 0.8 L (1.0-4.8) k/uL Sodium 131 L (137-145) mmol/L Chloride 95 L (98-107) mmol/L BUN 38 H (7-17) mg/dL Creatinine 1.67 H (0.52-1.04) mg/dL Glucose 260 H (74-99) mg/dL Calcium 7.9 L (8.4-10.2) mg/dL AST 46 H (14-36) U/L Alkaline Phosphatase 156 H (38-126) U/L Assessment and Plan Assessment: LIAM fall at home generalized weakness hyponatremia, dehydration plan fall precautions PT eval social media director to evaluate home situation IVF hydration with normal saline hold nephrotoxic meds, hold ACEI monitor urine output follow up Na level follow up renal function diabetic diet COIVD positive patient recently hospitalized and was treated for covid elevated d dimer, however still in same range from prior when she was admitted for acute COVID infection continue to monitor chronic conditions DM , insulin sliding scale hypertension , resume BP meds, holding KELLY i due to LIAM hypothyroid, resume levothyroxine full code DVT PPX with lovenox anticipated length of stay < 2 midnights
[2021-09-11] MEDS: LEVOTHYROXINE 100 MCG TAB PO SCH (05:43)
[2021-09-11 08:29] LABS: Glucose,Whole Blood 228 mg/dL (75-99)
[2021-09-11] MEDS: INSULIN ASPART (NovoLOG) 100 UNIT/ML VIAL SQ SCH ×4 (08:58→22:14)
[2021-09-11] MEDS: METOPROLOL TARTRATE 25 MG TAB PO SCH ×2 (08:59→22:14)
[2021-09-11] MEDS: MONTELUKAST 10 MG TAB PO SCH (08:59)
[2021-09-11] MEDS: DULoxetine HCL 60 MG CAPSULE.DR PO SCH ×2 (08:59→22:14)
[2021-09-11] MEDS: ENOXAPARIN 40 MG/0.4 ML SYRINGE SQ SCH (08:59)
[2021-09-11] MEDS: EZETIMIBE 10 MG TAB PO SCH (08:59)
[2021-09-11] MEDS: CLOPIDOGREL 75 MG TAB PO SCH (08:59)
[2021-09-11] MEDS: PRIMIDONE 50 MG TAB PO SCH ×4 (09:00→22:15)
[2021-09-11 12:05] LABS: Glucose,Whole Blood 295 mg/dL (75-99)
[2021-09-11] MEDS ORDERED: LIDOCAINE 5% PATCH TOPICAL PRN (15:46)
[2021-09-11] MEDS: ALPRAZolam 1 MG TAB PO PRN (16:00)
[2021-09-11 16:52] LABS: Glucose,Whole Blood 288 mg/dL (75-99)
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
[2021-09-11] MEDS: SODIUM CHLORIDE 0.9% 1,000 ML IV SCH (17:27)
--- NOTE | 2021-09-11 18:52 | XR ---
EXAMINATION TYPE: XR chest 1V DATE OF EXAM: 09/11/2021 COMPARISON: Chest radiograph 08/30/2021 HISTORY: Covid hypoxia. TECHNIQUE: Single frontal view of the chest is obtained. FINDINGS: The cardiomediastinal silhouette is obscured but appears enlarged. There is opacification a t the left base with partial obscuration of the left hemidiaphragm. IMPRESSION: Partial obscuration of the left hemidiaphragm could relate to infiltrate in the appropria te clinical setting.
[2021-09-11 20:28] LABS: Glucose,Whole Blood 281 mg/dL (75-99)
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
[2021-09-11] MEDS: INSULIN DETEMIR (LEVEMIR) 100 UNIT/ML SYR SQ SCH (22:14)
[2021-09-11] MEDS: traZODone HCL 100 MG TAB PO SCH (22:15)
[2021-09-11] MEDS: ONDANSETRON 4 MG/2 ML VIAL IVP PRN (22:16)
[2021-09-12] MEDS: LEVOTHYROXINE 100 MCG TAB PO SCH (05:47)
[2021-09-12] MEDS: SODIUM CHLORIDE 0.9% 1,000 ML IV SCH ×2 (05:49→14:16)
[2021-09-12 07:04] LABS: Glucose,Whole Blood 121 mg/dL (75-99)
[2021-09-12 07:27] LABS: Appearance,Urine Clear (Clear); Bilirubin,Urine Negative (Negative); Blood,Urine Negative (Negative); Color,Urine Yellow; Glucose,Urine (UA) Negative (Negative); Ketones,Urine Negative (Negative); Leukocyte Esterase,Urine Negative (Negative); Nitrite,Urine Negative (Negative); PH, Urine 6.5 (5.0-8.0); Protein,Urine Trace (Negative); Specific Gravity,Urine 1.012 (1.001-1.035); Urobilinogen,Urine <2.0 mg/dL (<2.0)
[2021-09-12] MEDS: INSULIN ASPART (NovoLOG) 100 UNIT/ML VIAL SQ SCH ×4 (08:37→20:16)
[2021-09-12] MEDS: ENOXAPARIN 40 MG/0.4 ML SYRINGE SQ SCH (08:38)
[2021-09-12] MEDS: CLOPIDOGREL 75 MG TAB PO SCH (08:41)
[2021-09-12] MEDS: PRIMIDONE 50 MG TAB PO SCH ×4 (08:41→20:12)
[2021-09-12] MEDS: MONTELUKAST 10 MG TAB PO SCH (08:41)
[2021-09-12] MEDS: METOPROLOL TARTRATE 25 MG TAB PO SCH ×2 (08:41→20:12)
[2021-09-12] MEDS: EZETIMIBE 10 MG TAB PO SCH (08:41)
[2021-09-12] MEDS: INSULIN DETEMIR (LEVEMIR) 100 UNIT/ML SYR SQ SCH ×2 (08:42→20:15)
[2021-09-12] MEDS: DULoxetine HCL 60 MG CAPSULE.DR PO SCH ×2 (08:42→20:12)
[2021-09-12] MEDS: ALPRAZolam 1 MG TAB PO PRN ×2 (08:46→20:12)
[2021-09-12 12:26] LABS: Glucose,Whole Blood 155 mg/dL (75-99)
[2021-09-12 12:42] LABS: Basophils % (A) 0 %; Eosinophils # (A) 0.1 k/uL (0-0.7); Eosinophils % (A) 1 %; HCT 38.3 % (34.0-46.0); HGB 11.9 gm/dL (11.4-16.0); Hypochromasia Slight; Lymphocytes # (A) 0.6 k/uL (1.0-4.8); Lymphocytes % (A) 13 %; MCH 28.7 pg (25.0-35.0); MCHC 31.1 g/dL (31.0-37.0); MCV 92.2 fL (80.0-100.0); Monocytes # (A) 0.3 k/uL (0-1.0); Monocytes % (A) 7 %; Neutrophils # (A) 3.7 k/uL (1.3-7.7); Neutrophils % (A) 77 %; Platelet Count 199 k/uL (150-450); RBC 4.15 m/uL (3.80-5.40); RDW 15.1 % (11.5-15.5); WBC 4.8 k/uL (3.8-10.6)
[2021-09-12 12:46] LABS: African American GFR (CKD) 71 (>60 ml/min/1.73 sqM); Anion Gap 5 mmol/L; Blood Urea Nitrogen 23 mg/dL (7-17); Calcium 8.1 mg/dL (8.4-10.2); Carbon Dioxide 31 mmol/L (22-30); Chloride 93 mmol/L (98-107); Glucose 165 mg/dL (74-99); Non-African American GFR(CKD) 61 (>60 ml/min/1.73 sqM); Potassium 5.3 mmol/L (3.5-5.1); Sodium 129 mmol/L (137-145)
[2021-09-12 13:26] LABS: Glucose,Whole Blood 180 mg/dL (75-99)
[2021-09-12] MEDS ORDERED: SODIUM POLYSTYRENE SULFONATE 15 GM/60 ML BOTTLE PO STA (14:01)
--- NOTE | 2021-09-12 15:48 | CONS ---
DATE OF SERVICE: 09/12/2021 CONSULTATION PURPOSE FOR CONSULTATION: Evaluate for recent high-risk behavior the patient has had coupled with severe substance use issues. INTERVAL HISTORY: The patient is doing about the same from a psychiatric standpoint. I reviewed her case with the today. The primary issues of concern are that the patient takes large doses of two habit-forming medications, namely Xanax and Percocet, that she misuses those medications in a dangerous way, that she is at risk for overdose of her medications, and due to the side effects of the medications her judgment and other cognitive issues are impaired to the point where she is not able to manage her medications on her own. When I reviewed issues with the patient's , he said he was willing to have the patient come home and work on a plan to have the patient tapered off of both her benzodiazepines, namely Xanax and her opioids, namely Percocet. He said that he has searched through the house and found two additional bottles of medications, though otherwise believes that he has the house clear from any additional medications that the patient might have access to. He states that he will be in complete control of her medications and that he would work with his primary care physicians and follow a program to taper her off of these medications in a timely manner while reducing risks, some of which can relate to withdrawal. The stated clearly that the risks that are facing the patient, including the struggles she had leading to her coming into the hospital, can be prevented with the managing the medications and working with both her and her physicians closely. Apparently the patient had indicated to one of her physicians that her could not be involved in any release of information. When I talked to the patient, I reviewed the plans that I had discussed with the . For the most part she was accepting of the issues; whether or not she has clear insight about her situation remains in question. On the other hand, as long as she does not have access to medications on her own, the process of tapering her off of medications and managing withdrawal issues can proceed in an appropriate manner. The patient was calm. She gave good eye contact. Her thoughts were clear. She was positive about the idea of going home. When I indicated that the long-term plan was to have her off both Xanax and Percocet, she did not raise any questions or concerns. ASSESSMENT/PLAN: Step number 1 would be for the patient to sign a release so that her outpatient physicians can communicate fully with the patient's . In regard to medication issues, the patient is currently on three medications that need to be discontinued. These include Xanax, oxycodone and primidone. All three are habit-forming medications and put her at significant risk. Also, long-term use of these medications generally exacerbate the primary problems that they may have been prescribed for. In regard to Xanax, her prescription since she has been in the hospital is 1 mg twice a day. My recommendation is to switch the patient to Ativan. I recommend she begin 0.5 mg every 8 hours; in 5 days the dose is reduced to 0.5 mg twice a day, and in 5 days reduce the dose to 0.5 mg daily, and in 5 days stop Xanax altogether. In regard to Mysoline, I do not have specific information as to the indication for that medication, though I would recommend the review with her primary care physician and that she be switched to a non-barbiturate alternative. If she has a seizure disorder, then she would need specific recommendations on an alternative anti-seizure medication prior to tapering off of Mysoline. If she does not have a seizure disorder, there are alternative medications for other uses that Mysoline is prescribed for. If that is the case, then she could begin on discharge to take 50 mg 3 times a day for 7 days, then down to 50 mg twice a day for 7 days, then 50 mg a day for 7 days, and then discontinue Mysoline altogether. Beyond that, attention needs to be then focused on tapering her off of her opioid pain medications. Currently she is on oxycodone 20 mg every 8 hours as needed. She could be prescribed oxycodone or return to using Percocet. The dose should be decreased to 10 mg every 8 hours. Each week the dose can be reduced by one tablet to 10 mg twice a day for 7 days, then down to 10 mg a day for 7 days, and then discontinue oxycodone/Percocet altogether. The patient and need to understand that the course of withdrawal is as follows: From the last dose of the last habit-forming medication, whether that is any one of the three, that is when acute withdrawal begins. As long as she continues off all habit- forming medications, including the three above or any others, then the typical course is that withdrawal gets worse and worse for the first two weeks, with day 10 to day 14 being the worst of withdrawal. By day 21, with no use of any habit-forming medications, patients begin to see that their symptoms may be lessening at least by a slight degree. Generally for the next 3 weeks from day 21, symptoms slowly improve, though they tend to have significant ups and downs in symptoms. By 6 weeks from last use of any habit- forming medication, the patients are approximately through 60% of withdrawal, which equates to a D grade. Beyond 6 to 8 weeks, people begin to feel that they are making progress in gaining control from withdrawal symptoms. In regard to psychiatric symptoms of withdrawal such as anxiety and depression, antidepressants and other medications have little or no benefit in the first 6 to 8 weeks of withdrawal, though beyond that antidepressants can begin to show benefit. In general, about 50% of people who go beyond 6 to 8 weeks free of abusive substances see improvement in any psychiatric issues such as depression or anxiety and may not need significant intervention. On the other hand, about half the people withdrawing from these medications may need attention to antidepressant therapy both for depression symptoms as well as the range of anxiety symptoms. Symptoms of withdrawal that can be quite intense in the first 6 weeks include any number of mental issues such as anxiety, depression, mood swings, irritability and so forth. Physical symptoms often can be broad and generalized. There is always concern that if a patient were to have chest pain, they should be evaluated for any heart-related issues. Beyond that, they may have significant exacerbation of pain, GI distress, aches and pain and so forth. It is noteworthy that studies of chronic pain have shown that greater than 70% of people who have had chronic pain issues and have been on long-term opioids have significant reduction in pain issues beyond 6 to 8 weeks off of opioid pain medications. There are physical interventions such as physical therapy, a walking program and other opportunities for range of motion and movement exercises that can be helpful to begin to better manage pain issues. It is noted that specific for Xanax and benzodiazepines in general there is a risk for seizures as a person is tapered off Xanax or Ativan, so the patient does need to be monitored in this regard. Even with a very slow medication reduction, seizure issues still can be a risk, though in general the risk is relatively low. If the tapering schedule of these three medications is followed as noted above, I would anticipate that by early to mid October the patient would be off these medications altogether. Thus I would anticipate the patient showing at least a moderate amount of improvement going into December and continuing through the summer months. For some patients who have significant withdrawal symptoms in the early course of withdrawal, medications that have been helpful include the following: Trazodone in the range of 100 to 150 mg may be used for sleep. Sleep disorder is a very common side effect of withdrawal. For general mood and physical problems, one medication that has been generally successful in helping ameliorate withdrawal symptoms is Zyprexa. She could be prescribed Zyprexa in the range of 2.5 mg 3 times a day up to 5 mg 3 times a day. Prescribing Zyprexa in that dose range has been generally effective in helping people manage early withdrawal issues, especially in the first 6 weeks of withdrawal. Given longer-term concerns with Zyprexa in terms of metabolics and movement disorder issues, it is best to limit the use of Zyprexa for just early withdrawal such as the first 6 to 8 weeks, and then begin a taper. If blood pressure runs high, clonidine and Catapres have also been used to help ameliorate withdrawal symptoms, including a Catapres patch. Thirdly, naltrexone 50 mg a day has been helpful to lessen some withdrawal issues, though my main focus would be on working with Zyprexa first and adding clonidine as needed based on blood pressure readings. From a psychiatric standpoint, the patient is clear for discharge. ENEDINA / ANNA: [id number] / [email or web address]
[2021-09-12 17:09] LABS: Glucose,Whole Blood 246 mg/dL (75-99)
[2021-09-12 17:36] LABS: African American GFR (CKD) 72 (>60 ml/min/1.73 sqM); Anion Gap 9 mmol/L; Blood Urea Nitrogen 22 mg/dL (7-17); Calcium 8.4 mg/dL (8.4-10.2); Carbon Dioxide 30 mmol/L (22-30); Chloride 92 mmol/L (98-107); Glucose 246 mg/dL (74-99); Non-African American GFR(CKD) 63 (>60 ml/min/1.73 sqM); Potassium 4.5 mmol/L (3.5-5.1); Sodium 131 mmol/L (137-145)
--- NOTE | 2021-09-12 18:08 | P.PN ---
Subjective Progress Note Date: 09/12/21 Patient was examined at bedside today not complaining of any new symptomatology. Patient needs to be evaluated by psychiatry. Case discussed with RN present at bedside. Objective - Vital Signs Vital signs: Vital Signs Temp 99.1 F 09/12/21 15:39 Pulse 70 09/12/21 15:39 Resp 18 09/12/21 15:39 BP 114/52 09/12/21 15:39 Pulse Ox 98 09/12/21 15:39 Intake & Output 09/11/21 09/12/21 09/12/21 18:59 06:59 18:59 Intake Total 118 Balance 118 Intake: Oral 118 Other: Voiding Method Bedside Commode Bedside Commode # Voids 2 2 1 # Bowel Movements 0 2 - Exam Vital signs reviewed and stable. General: Nontoxic, no distress and appears stated age. Morbidly obese. Derm: Skin warm and dry, normal coloration for ethnicity. Head: Atraumatic, normocephalic and symmetric. Eyes: EOMs intact, no lid lag, and anicteric sclera Mouth: no lip lesions, mucus membranes moist Cardiovascular: regular rate and rhythm with normal S1S2, no murmur, positive posterior tibial pulses bilaterally, and cap refill < 2 seconds. Lungs: Respirations even, regular, and unlabored on room air. Lungs CTA bilaterally, no rhonchi, no rales, no wheezing, and no accessory muscle usage. Abdominal: soft, nontender to palpation, no guarding, no appreciable organomegaly Ext: ROM intact. No gross muscle atrophy, no edema, no contractures Neuro: Speech clear, face symmetrical and CN II-XII grossly intact with no noted focal neuro deficits Psych: Alert and oriented to person, place, time, and situation. Anxious and angry affect. - Labs CBC & Chem 7: 09/12/21 11:57 09/12/21 17:00 Labs: Abnormal Lab Results - Last 24 Hours (Table) 09/11/21 09/12/21 09/12/21 Range/Units 20:27 07:00 07:03 Lymphocytes # (1.0-4.8) k/uL Sodium (137-145) mmol/L Potassium (3.5-5.1) mmol/L Chloride (98-107) mmol/L Carbon Dioxide (22-30) mmol/L BUN (7-17) mg/dL Glucose (74-99) mg/dL POC Glucose (mg/dL) 281 H 121 H (75-99) mg/dL Calcium (8.4-10.2) mg/dL Urine Protein Trace H (Negative) 09/12/21 09/12/21 09/12/21 Range/Units 11:57 11:57 12:24 Lymphocytes # 0.6 L (1.0-4.8) k/uL Sodium 129 L (137-145) mmol/L Potassium 5.3 H (3.5-5.1) mmol/L Chloride 93 L (98-107) mmol/L Carbon Dioxide 31 H (22-30) mmol/L BUN 23 H (7-17) mg/dL Glucose 165 H (74-99) mg/dL POC Glucose (mg/dL) 155 H (75-99) mg/dL Calcium 8.1 L (8.4-10.2) mg/dL Urine Protein (Negative) 09/12/21 09/12/21 09/12/21 Range/Units 13:24 17:00 17:08 Lymphocytes # (1.0-4.8) k/uL Sodium 131 L (137-145) mmol/L Potassium (3.5-5.1) mmol/L Chloride 92 L (98-107) mmol/L Carbon Dioxide (22-30) mmol/L BUN 22 H (7-17) mg/dL Glucose 246 H (74-99) mg/dL POC Glucose (mg/dL) 180 H 246 H (75-99) mg/dL Calcium (8.4-10.2) mg/dL Urine Protein (Negative) Assessment and Plan Assessment: Recurrent falls, unsteady ambulating with walker History of polysubstance abuse resulting from opioid and benzodiazepine dependency with history of miss use/abuse Chronic back and right knee pain Osteoarthritis -Educated and encouraged patient on decreasing opioid and dependent use/abuse. -Tapering dose scripts to be written by psychiatry. We will follow-up with him. -Encouraged alternative pain management including lidocaine patch and heating pad. Elevated d-dimer -Patient refused VQ scan. Currently vital signs are stable patient is not tachycardic saturating 98% on room air. Recent Covid infection continues to test positive per PCR Additional medical history including: CAD with previous PR and stent placement in 2019, hypertension, hyperlipidemia, factor V Ley[place] deficiency no longer on anticoagulation, and previous PEs and DVT -Patient no longer on anticoagulation and a high risk for placement on anticoagulation secondary to recurrent falls and long-standing history of opioid and benzodiazepine misuse/abuse. -Patient to continue daily medication regimen including Plavix, Zetia, levothyroxine, and metoprolol. Disposition: Pending tapering dose for opioids by psychiatry. Anticipate discharge next 24 hours.
[2021-09-12] MEDS: traZODone HCL 100 MG TAB PO SCH (20:12)
[2021-09-12 20:15] LABS: Glucose,Whole Blood 309 mg/dL (75-99)
[2021-09-13] MEDS: SODIUM CHLORIDE 0.9% 1,000 ML IV SCH ×2 (04:12→13:13)
[2021-09-13] MEDS: LEVOTHYROXINE 100 MCG TAB PO SCH (05:32)
[2021-09-13 07:09] LABS: Glucose,Whole Blood 74 mg/dL (75-99)
[2021-09-13 07:43] VITALS: BP 115/70; RESP 16; TEMP 98.1
[2021-09-13] MEDS: MONTELUKAST 10 MG TAB PO SCH (08:08)
[2021-09-13] MEDS: CLOPIDOGREL 75 MG TAB PO SCH (08:08)
[2021-09-13] MEDS: PRIMIDONE 50 MG TAB PO SCH ×2 (08:08→13:13)
[2021-09-13] MEDS: ENOXAPARIN 40 MG/0.4 ML SYRINGE SQ SCH (08:08)
[2021-09-13] MEDS: DULoxetine HCL 60 MG CAPSULE.DR PO SCH (08:08)
[2021-09-13] MEDS: METOPROLOL TARTRATE 25 MG TAB PO SCH (08:08)
[2021-09-13] MEDS: ALPRAZolam 1 MG TAB PO PRN (08:24)
[2021-09-13] MEDS: EZETIMIBE 10 MG TAB PO SCH (08:24)
[2021-09-13 08:50] VITALS: PULSE 82
[2021-09-13] MEDS: INSULIN ASPART (NovoLOG) 100 UNIT/ML VIAL SQ SCH ×2 (08:51→13:07)
[2021-09-13 12:46] LABS: Glucose,Whole Blood 127 mg/dL (75-99)
[2021-09-13] MEDS: ONDANSETRON 4 MG/2 ML VIAL IVP PRN (13:13)
[2021-09-13] MEDS: INSULIN DETEMIR (LEVEMIR) 100 UNIT/ML SYR SQ SCH (13:14)
--- NOTE | 2021-09-13 13:26 | P.DS ---
Providers Date of admission: 09/11/21 04:29 Expected date of discharge: 09/13/21 Attending physician: Lianna Nassar MD Consults: 09/11/21 15:45 Consult Physician Routine Consulting Provider: Baron Albrecht Consult Reason/Comments: RN reports family called and stated pt threatening suicide by ingestion Do you want consulting provider notified?: Yes Primary care physician: [facility] Hospital Course: 66 year old female with DM , hypertension , hypothyroid patient comes in for evaluation today, as her family were concerned about her falling frequently at home and being unsteady on her feet despite using a walker. they were worried she might be taking too much pain meds. patient herself , is denying any medical concerns , she denies any respiratory symptoms, fever, chills, chest pain or trouble breathing. she denies nausea, vomiting, abd pain , bowel habit changes, urinary changes. she denies any focal neuro deficits. she claims the only reason she fell, is because her daughter tripped her and made her fall, which she is not sure why, however, she reports feeling safe at home , and supported. she was recently discharged from the hospital on 08/30/21 where she was treated for COVID Patient was evaluate by psychiatry team that is recommended a tapering dose of her opioids. I did coordinated care with the on-call psychiatrist today and they have recommended that they will start the tapering dose L patient. At this time there will not believe a prescription for tapering dose of her opioid medication and suggest that she follows up outpatient for that. I also did give a call to her spoke to him over the phone 1:09 PM on 09/13/2021 regarding follow-up within 1-2 days to obtain tapering scrips for opioids. He said that he will called him immediately today and follow-up with the psychiatrist. I have also instructed him to follow with his primary care doctor but he instructed me that they do not know what's going on a rather follow-up with a psychiatrist. As per psychiatrist recommendations I will be sending the patient home on Xanax 0.5 mg 3 times a day PRN we will continue with her trazodone, Cymbalta and oxycodone will be reduced to 10 mg 3 times a day for 3 days as well. I have stressed the importance of close and immediate follow-up the patient and her are both aware. The risks associated with not tapering off opioids have also been discussed in detail which include but not limited to possible severe life-threatening conditions. Scripts for Oxydone, and Xanax will be provided. Family has remaining medications at home. The patient is okay to be discharged from our consultants including psychiatry. Vital signs are stable today blood pressure 115/70 saturating 96% on room air afebrile and heart rate of 72. Patient's BNP was completed yesterday sodium 131 potassium 4.5 and glucose 127 today. Patient has refused to going to any rehabilitation facility to wean off benzodiazepine and opioids. Patient Condition at Discharge: Serious Plan - Discharge Summary New Discharge Prescriptions: Continue Montelukast [Singulair] 10 mg PO DAILY Metoprolol Tartrate [Lopressor] 25 mg PO BID Clopidogrel [Plavix] 75 mg PO DAILY DULoxetine HCL [Cymbalta] 60 mg PO BID traZODone HCL [Desyrel] 200 mg PO HS Levocetirizine Dihydrochloride [Xyzal] 5 mg PO DAILY Ezetimibe [Zetia] 10 mg PO DAILY 30 Days #30 tab Insulin Lispro [humaLOG Kwikpen] See Protocol SQ ACHS Insulin Glargine,Hum.rec.anlog [Lantus Solostar Pen] 40 units SQ BID Primidone [Mysoline] 50 mg PO QID metOLazone [Zaroxolyn] 5 mg PO DAILY Meclizine HCl 12.5 mg PO TID PRN PRN Reason: Vertigo Lisinopril [Prinivil] 10 mg PO DAILY Lidocaine 5% Patch [Lidoderm 5% Patch] 2 patch TOPICAL DAILY PRN PRN Reason: Pain Levothyroxine Sodium [Synthroid] 300 mcg PO DAILY Metoclopramide [Reglan] 5 mg PO AC-TID Discontinued oxyCODONE HCL [oxyCODONE HCL (IR)] 20 mg PO Q4-6H PRN PRN Reason: Pain ALPRAZolam [Xanax] 2 mg PO TID PRN PRN Reason: Anxiety Naloxone HCl [Narcan] 4 mg NASAL DAILY PRN PRN Reason: overdose Discharge Medication List Clopidogrel [Plavix] 75 mg PO DAILY 07/07/19 [History] DULoxetine HCL [Cymbalta] 60 mg PO BID 07/07/19 [History] Levocetirizine Dihydrochloride [Xyzal] 5 mg PO DAILY 07/07/19 [History] Metoprolol Tartrate [Lopressor] 25 mg PO BID 07/07/19 [History] Montelukast [Singulair] 10 mg PO DAILY 07/07/19 [History] traZODone HCL [Desyrel] 200 mg PO HS 07/07/19 [History] Ezetimibe [Zetia] 10 mg PO DAILY 30 Days #30 tab 01/30/20 [Rx] Insulin Glargine,Hum.rec.anlog [Lantus Solostar Pen] 40 units SQ BID 06/09/21 [History] Insulin Lispro [humaLOG Kwikpen] See Protocol SQ ACHS 06/09/21 [History] Levothyroxine Sodium [Synthroid] 300 mcg PO DAILY 08/30/21 [History] Lidocaine 5% Patch [Lidoderm 5% Patch] 2 patch TOPICAL DAILY PRN 08/30/21 [History] Lisinopril [Prinivil] 10 mg PO DAILY 08/30/21 [History] Meclizine HCl 12.5 mg PO TID PRN 08/30/21 [History] Primidone [Mysoline] 50 mg PO QID 08/30/21 [History] metOLazone [Zaroxolyn] 5 mg PO DAILY 08/30/21 [History] Metoclopramide [Reglan] 5 mg PO AC-TID 09/10/21 [History] Follow up Appointment(s)/Referral(s): [facility], [NON-STAFF] - 1-2 Days Venkatesh Segundo MD [Primary Care Provider] - 1-2 days Ashvin Paulson MD [STAFF PHYSICIAN] - 1-2 Days (Please make an appointment with psychiatry immediately today. Needs to follow-up to obtain tapering doses of opioids/benzodiazepine. and family are both aware. I have also contacted psychiatry and they're aware.) Discharge/Stand Alone Forms: Who Do I Call?, Personal Tip Cutter
== END 2021-09-13 15:00 | disposition home or self-care (01) ==
LOC: EC 18:20 → 6NMEDSUR 09-11 04:29
PROVIDERS: ADMIT Internal Medicine; ATTEND Internal Medicine
DX: N17.9 Acute kidney failure, unspecified (principal); U07.1 COVID-19; F11.20 Opioid dependence, uncomplicated; F13.20 Sedative, hypnotic or anxiolytic dependence, uncomplicated; G93.40 Encephalopathy, unspecified; E87.1 Hypo-osmolality and hyponatremia; E86.0 Dehydration; E03.9 Hypothyroidism, unspecified; R29.6 Repeated falls; I10 Essential (primary) hypertension; M19.90 Unspecified osteoarthritis, unspecified site; E78.5 Hyperlipidemia, unspecified; I25.2 Old myocardial infarction; K21.9 Gastro-esophageal reflux disease without esophagitis; E11.42 Type 2 diabetes mellitus with diabetic polyneuropathy; E11.51 Type 2 diabetes mellitus with diabetic peripheral angiopathy without gangrene; R26.81 Unsteadiness on feet; R23.3 Spontaneous ecchymoses; F32.A Depression, unspecified; F41.9 Anxiety disorder, unspecified; R79.89 Other specified abnormal findings of blood chemistry; D68.51 Activated protein C resistance; G89.29 Other chronic pain; M54.42 Lumbago with sciatica, left side; M54.41 Lumbago with sciatica, right side; M25.561 Pain in right knee; E66.01 Morbid (severe) obesity due to excess calories; Z68.39 Body mass index [BMI] 39.0-39.9, adult; E87.8 Other disorders of electrolyte and fluid balance, not elsewhere classified; W19.XXXA Unspecified fall, initial encounter; Y92.009 Unspecified place in unspecified non-institutional (private) residence as the place of occurrence of the external cause; Z79.02 Long term (current) use of antithrombotics/antiplatelets; Z79.890 Hormone replacement therapy; Z79.4 Long term (current) use of insulin; Z79.899 Other long term (current) drug therapy; Z88.6 Allergy status to analgesic agent; Z88.1 Allergy status to other antibiotic agents; Z91.041 Radiographic dye allergy status; Z88.8 Allergy status to other drugs, medicaments and biological substances; Z91.048 Other nonmedicinal substance allergy status; Z86.711 Personal history of pulmonary embolism; Z90.49 Acquired absence of other specified parts of digestive tract; Z95.5 Presence of coronary angioplasty implant and graft; Z90.710 Acquired absence of both cervix and uterus; Z90.79 Acquired absence of other genital organ(s); Z87.01 Personal history of pneumonia (recurrent); Z90.722 Acquired absence of ovaries, bilateral; Z98.42 Cataract extraction status, left eye; Z98.41 Cataract extraction status, right eye; Z87.891 Personal history of nicotine dependence; Z98.890 Other specified postprocedural states; Z87.440 Personal history of urinary (tract) infections; Z86.718 Personal history of other venous thrombosis and embolism; Z80.1 Family history of malignant neoplasm of trachea, bronchus and lung; Z82.49 Family history of ischemic heart disease and other diseases of the circulatory system; Z81.2 Family history of tobacco abuse and dependence; Z71.51 Drug abuse counseling and surveillance of drug abuser; R45.851 Suicidal ideations; Z91.19 Patient's noncompliance with other medical treatment and regimen
CPT/HCPCS: 96376; 96361; 96372; 96374; 99285; 36415; 93005; 97530; 97162; 85379; 80053; 80048; 83615; 85025 ×2; 86140; 81003; 87635; 71045; G0378 ×3; J2405 ×2; J1650

== ENCOUNTER → 2022-08-25 | Outpatient (CLI) | payer MEDICARE, BC ==
--- NOTE | 2022-08-25 13:09 | XR ---
EXAMINATION TYPE: XR knee complete bilateral DATE OF EXAM: 08/25/2022 12:23 PM INDICATION: Patient age:Female; 67 years old; Reason for study: M17.0 OA Knee; [facility]. COMPARISON: Right knee radiograph 06/09/2021 TECHNIQUE: Both kidneys were examined in frontal, lateral, and oblique projections. FINDINGS: No acute fracture or dislocation involving both knees. There is mild tricompartmental joint space narrowing of both knees. Spurring of the superior pole of of both patellas. Small suprapatella r left joint effusion. Diffuse bilateral subcutaneous edema. IMPRESSION: 1. No acute osseous pathology. 2. Mild osteoarthritic changes of both knees. 3. Small left suprapatellar joint effusion. 4. Diffuse bilateral subcutaneous edema.
== END | disposition home or self-care (01) ==
LOC: RADXRMAIN 11:58
PROVIDERS: ATTEND Nurse Practitioner Family
DX: M17.0 Bilateral primary osteoarthritis of knee (principal); M25.462 Effusion, left knee

== ENCOUNTER 2023-06-21 12:04 | Observation (INO) | payer MEDICARE, BC ==
[2023-06-21] MEDS ORDERED: LORazepam 2 MG/ML INJ IV STA (12:17)
[2023-06-21] MEDS ORDERED: ASPIRIN 81 MG PO STA (12:18)
--- NOTE | 2023-06-21 12:21 | ED ---
General Adult HPI - General Chief complaint: Chest Pain Stated complaint: Chest Pain Time Seen by Provider: 06/21/23 12:10 Source: patient, family, EMS, RN notes reviewed Mode of arrival: EMS Limitations: no limitations - History of Present Illness Initial comments: Patient is a pleasant 68-year-old female presenting to the emergency department with concerns with chest discomfort. Onset of symptoms was a couple days ago. Discomfort has been intermittent. No discomfort at this time. Patient also is concerned she is felt shaky for the past week. Patient feels that she is traveling inside. No associated dyspnea. No nausea. No diaphoresis. No weakness or confusion. Patient unable to describe the type of discomfort she is expressing. - Related Data Home Medications Medication Instructions Recorded Confirmed Clopidogrel [Plavix] 75 mg PO DAILY 07/07/19 10/05/22 DULoxetine HCL [Cymbalta] 60 mg PO BID 07/07/19 10/05/22 Levocetirizine Dihydrochloride 5 mg PO DAILY 07/07/19 10/05/22 [Xyzal] Metoprolol Tartrate [Lopressor] 25 mg PO BID 07/07/19 10/05/22 Montelukast [Singulair] 10 mg PO DAILY 07/07/19 10/05/22 traZODone HCL [Desyrel] 200 mg PO HS 07/07/19 10/05/22 Insulin Glargine,Hum.rec.anlog 50 units SQ BID 06/09/21 10/05/22 [Lantus Solostar Pen] Insulin Lispro [humaLOG Kwikpen] See Protocol SQ ACHS 06/09/21 10/05/22 Levothyroxine Sodium [Synthroid] 300 mcg PO DAILY 08/30/21 10/05/22 Meclizine HCl 12.5 mg PO TID PRN 08/30/21 10/05/22 Primidone [Mysoline] 50 mg PO QID 08/30/21 10/05/22 lisinopriL [Prinivil] 10 mg PO DAILY 08/30/21 10/05/22 metOLazone [Zaroxolyn] 5 mg PO DAILY 08/30/21 10/05/22 Metoclopramide [Reglan] 5 mg PO AC-TID 09/10/21 10/05/22 ALPRAZolam [Xanax] 2 mg PO TID 10/05/22 10/05/22 oxyCODONE HCL [Oxycodone HCl] 10 mg PO TID 10/05/22 10/05/22 Previous Rx's Medication Instructions Recorded Ezetimibe [Zetia] 10 mg PO DAILY 30 Days #30 tab 01/30/20 Allergies Allergy/AdvReac Type Severity Reaction Status Date / Time Iodinated Contrast Media Allergy Rash/Hives Verified 06/21/23 12:11 Iodine and Iodide Containing Allergy Rash/Hives Verified 06/21/23 12:11 Produc liraglutide [From Saxenda] AdvReac Unknown Nausea & Verified 06/21/23 12:11 Vomiting NSAIDS (Non-Steroidal AdvReac Unknown Nausea & Verified 06/21/23 12:11 Anti-Inflamma Vomiting aspirin AdvReac Nausea & Verified 06/21/23 12:11 Vomiting with high doses azithromycin AdvReac Vomiting Verified 06/21/23 12:11 naproxen [From Naprosyn] AdvReac Nausea & Verified 06/21/23 12:11 Vomiting Review of Systems ROS Statement: Those systems with pertinent positive or pertinent negative responses have been documented in the HPI. ROS Other: All systems not noted in ROS Statement are negative. Constitutional: Denies: fever Eyes: Denies: eye pain ENT: Denies: ear pain Respiratory: Denies: cough, dyspnea Cardiovascular: Reports: as per HPI, chest pain Endocrine: Denies: fatigue Gastrointestinal: Denies: abdominal pain Genitourinary: Denies: dysuria Musculoskeletal: Denies: back pain Past Medical History Past Medical History: Blood Disorder, Cancer, Diabetes Mellitus, Deep Vein Thrombosis (DVT), GERD/Reflux, Hyperlipidemia, Hypertension, Myocardial Infarction ([place]), Neurologic Disorder, Osteoarthritis (OA), Pulmonary Embolus (PE), Thyroid Disorder Additional Past Medical History / Comment(s): Factor 5 leiden, DVT L leg, PE L lung, MIs x 5, palpitations, IDDM type II, neuropathy bilateral legs/feet, lymphedema L leg, charcot syndrome L foot, chronic low back pain, bilateral sciatica,hx bronchitis, anemia, hypothyroid, hx UTI, IBS, sinus problems, worsening tremors, "stomach shivering inside" plans to f/u with pcp. being seen for skin cancer removal. hx of pneumonia long ago Last Myocardial Infarction Date:: January 2020 History of Any Multi-Drug Resistant Organisms: None Reported Past Surgical History: Appendectomy, Cholecystectomy, Heart Catheterization With Stent, Hernia Repair, Hysterectomy, Tonsillectomy Additional Past Surgical History / Comment(s): Bilateral salpingectomy, bilateral oophorectomy, abdominal hernia surgeries, L foot fracture, bilateral cataract removals, epidural injections with last on 01/20/20 lumbar, LAST PROCEDURE 04/19/21 Past Anesthesia/Blood Transfusion Reactions: No Reported Reaction Additional Past Anesthesia/Blood Transfusion Reaction / Comment(s): Pt has received blood in past without reaction. Date of Last Stent Placement:: January 2020 Past Psychological History: Anxiety, Depression, Panic Disorder Smoking Status: Former smoker Past Alcohol Use History: None Reported Past Drug Use History: None Reported - Past Family History Mother Family Medical History: COPD Additional Family Medical History / Comment(s): Mother was a smoker. Father Family Medical History: Cancer Additional Family Medical History / Comment(s): Lung cancer. Father was a smoker. Son(s) Family Medical History: Deep Vein Thrombosis (DVT) General Exam Limitations: no limitations General appearance: alert, in no apparent distress Head exam: Present: normocephalic Eye exam: Present: normal appearance Neck exam: Present: normal inspection Respiratory exam: Present: normal lung sounds bilaterally. Absent: chest wall tenderness Cardiovascular Exam: Present: regular rate, normal rhythm Expanded Peripheral pulses: 2+: Radial (R), Radial (L), Dorsalis Pedis (R), Dorsalis Pedis (L) GI/Abdominal exam: Present: soft. Absent: tenderness Extremities exam: Present: calf tenderness ((Tenderness left calf) Neurological exam: Present: alert Psychiatric exam: Present: normal affect, normal mood Skin exam: Present: normal color Course Vital Signs 06/21/23 06/21/23 06/21/23 12:05 12:51 14:15 Temperature 98.3 F Pulse Rate 77 75 77 Respiratory 18 18 18 Rate Blood Pressure 155/82 153/75 O2 Sat by Pulse 95 95 94 L Oximetry EKG Findings - EKG Results: EKG: interpreted by ERMD (Artifact present. Left axis. Septal Q waves), sinus rhythm, normal ST/T Medical Decision Making - Medical Decision Making Was pt. sent in by a medical professional or institution (, PA, TOOL SETTER, urgent care, hospital, or [place] health care facility...) When possible be specific @ -No Did you speak to anyone other than the patient for history (EMS, parent, family, police, friend...)? What history was obtained from this source @ -No Did you review nursing and triage notes (agree or disagree)? Why? @ -I reviewed and agree with nursing and triage notes Were old charts reviewed (outside hosp., previous admission, EMS record, old EKG, old radiological studies, urgent care reports/EKG's, [place] health care facility records)? Report findings @ -No old charts were reviewed Differential Diagnosis (chest pain, altered mental status, abdominal pain women, abdominal pain men, vaginal bleeding, weakness, fever, dyspnea, syncope, headache, dizziness, GI bleed, back pain, seizure, CVA, palpatations, mental health, musculoskeletal)? @ -Differential Chest Pain: Stable Angina, Unstable Angina, STEMI, NSTEMI Aortic Dissection, Pneumothorax, Musculoskeletal, Esophageal Spasm GERD, Cholecystitis, Pancreatitis, Zoster, this is not meant to be an all-inclusive list. EKG interpreted by me (3pts min.). @ -As above X-rays interpreted by me (1pt min.). @ -Chest x-ray shows no acute process CT interpreted by me (1pt min.). @ -Report reviewed U/S interpreted by me (1pt. min.). @ -Report reviewed What testing was considered but not performed or refused? (CT, X-rays, U/S, labs)? Why? @ -None What meds were considered but not given or refused? Why? @ -None Did you discuss the management of the patient with other professionals (professionals i.e. , PA, TOOL SETTER, lab, RT, psych nurse, protective services social worker, neurology physician assistant, teacher, credit risk officer, bilingual case manager)? Give summary @ -Case was discussed with practitioner Rocio Garcia, who will admit, Dr. Sy. Was smoking cessation discussed for >3mins.? @ -No Was critical care preformed (if so, how long)? @ -No Were there social determinants of health that impacted care today? How? (Homelessness, low income, unemployed, alcoholism, drug addiction, transportation, low edu. Level, literacy, decrease access to med. care, custodial, rehab)? @ -No Was there de-escalation of care discussed even if they declined (Discuss DNR or withdrawal of care, Hospice)? DNR status @ -No What co-morbidities impacted this encounter? (DM, HTN, Smoking, COPD, CAD, Cancer, CVA, ARF, Chemo, Hep., AIDS, mental health diagnosis, sleep apnea, morbid obesity)? @ -None Was patient admitted / discharged? Hospital course, mention meds given and route, prescriptions, significant lab abnormalities, going to OR and other pertinent info. @ -Patient reevaluated and resting comfortably at bedside. Patient is updated on results and plan. Patient will be admitted. Admission orders written. Cardiology was placed on consult. Undiagnosed new problem with uncertain prognosis? @ -No Drug Therapy requiring intensive monitoring for toxicity (Heparin, Nitro, Insulin, Cardizem)? @ -No Were any procedures done? @ -No Diagnosis/symptom? @ -Chest pain Acute, or Chronic, or Acute on Chronic? @ -Acute Uncomplicated (without systemic symptoms) or Complicated (systemic symptoms)? @ -default Side effects of treatment? @ -No Exacerbation, Progression, or Severe Exacerbation? @ -No Poses a threat to life or bodily function? How? (Chest pain, [place], [place], pneumonia, PE, COPD, DKA, ARF, appy, cholecystitis, CVA, Diverticulitis, Homicidal, Suicidal, threat to staff... and all critical care pts) @ -No - Lab Data Result diagrams: 06/21/23 12:21 06/21/23 12:21 Lab Results 06/21/23 06/21/23 06/21/23 Range/Units 12:21 12:21 12:21 WBC 6.8 (3.8-10.6) k/uL RBC 3.92 (3.80-5.40) m/uL Hgb 12.0 (11.4-16.0) gm/dL Hct 37.3 (34.0-46.0) % MCV 95.2 (80.0-100.0) fL MCH 30.5 (25.0-35.0) pg MCHC 32.1 (31.0-37.0) g/dL RDW 15.6 H (11.5-15.5) % Plt Count 147 L (150-450) k/uL MPV 9.0 Neutrophils % 71 % Lymphocytes % 22 % Monocytes % 4 % Eosinophils % 2 % Basophils % 0 % Neutrophils # 4.8 (1.3-7.7) k/uL Lymphocytes # 1.5 (1.0-4.8) k/uL Monocytes # 0.3 (0-1.0) k/uL Eosinophils # 0.2 (0-0.7) k/uL Basophils # 0.0 (0-0.2) k/uL Hypochromasia Slight PT 10.0 (10.0-12.5) sec INR 0.9 (<1.2) APTT 19.2 L (22.0-30.0) sec D-Dimer 0.87 H (<0.60) mg/L FEU Sodium 136 L (137-145) mmol/L Potassium 4.7 (3.5-5.1) mmol/L Chloride 101 (98-107) mmol/L Carbon Dioxide 26 (22-30) mmol/L Anion Gap 9 mmol/L BUN 16 (7-17) mg/dL Creatinine 0.83 (0.52-1.04) mg/dL Est GFR (CKD-EPI)AfAm 84 (>60 ml/min/1.73 sqM) Est GFR (CKD-EPI)NonAf 73 (>60 ml/min/1.73 sqM) Glucose 358 H (74-99) mg/dL Calcium 8.4 (8.4-10.2) mg/dL Magnesium 2.3 (1.6-2.3) mg/dL Total Bilirubin 0.4 (0.2-1.3) mg/dL AST 47 H (14-36) U/L ALT 27 (4-34) U/L Alkaline Phosphatase 294 H (38-126) U/L Troponin I (0.000-0.034) ng/mL Total Protein 7.3 (6.3-8.2) g/dL Albumin 3.7 (3.5-5.0) g/dL 06/21/23 Range/Units 12:21 WBC (3.8-10.6) k/uL RBC (3.80-5.40) m/uL Hgb (11.4-16.0) gm/dL Hct (34.0-46.0) % MCV (80.0-100.0) fL MCH (25.0-35.0) pg MCHC (31.0-37.0) g/dL RDW (11.5-15.5) % Plt Count (150-450) k/uL MPV Neutrophils % % Lymphocytes % % Monocytes % % Eosinophils % % Basophils % % Neutrophils # (1.3-7.7) k/uL Lymphocytes # (1.0-4.8) k/uL Monocytes # (0-1.0) k/uL Eosinophils # (0-0.7) k/uL Basophils # (0-0.2) k/uL Hypochromasia PT (10.0-12.5) sec INR (<1.2) APTT (22.0-30.0) sec D-Dimer (<0.60) mg/L FEU Sodium (137-145) mmol/L Potassium (3.5-5.1) mmol/L Chloride (98-107) mmol/L Carbon Dioxide (22-30) mmol/L Anion Gap mmol/L BUN (7-17) mg/dL Creatinine (0.52-1.04) mg/dL Est GFR (CKD-EPI)AfAm (>60 ml/min/1.73 sqM) Est GFR (CKD-EPI)NonAf (>60 ml/min/1.73 sqM) Glucose (74-99) mg/dL Calcium (8.4-10.2) mg/dL Magnesium (1.6-2.3) mg/dL Total Bilirubin (0.2-1.3) mg/dL AST (14-36) U/L ALT (4-34) U/L Alkaline Phosphatase (38-126) U/L Troponin I <0.012 (0.000-0.034) ng/mL Total Protein (6.3-8.2) g/dL Albumin (3.5-5.0) g/dL Disposition Clinical Impression: Chest pain Disposition: ADMITTED IP TO THIS HOSP Is patient prescribed a controlled substance at d/c from ED?: No Referrals: Miguel Sy MD [Primary Care Provider] - 1-2 days Time of Disposition: 17:17
[2023-06-21 12:51] LABS: ALT 27 U/L (4-34); AST 47 U/L (14-36); African American GFR (CKD) 84 (>60 ml/min/1.73 sqM); Albumin 3.7 g/dL (3.5-5.0); Alkaline Phosphatase 294 U/L (38-126); Anion Gap 9 mmol/L; Basophils % (A) 0 %; Blood Urea Nitrogen 16 mg/dL (7-17); Calcium 8.4 mg/dL (8.4-10.2); Carbon Dioxide 26 mmol/L (22-30); Chloride 101 mmol/L (98-107); Eosinophils # (A) 0.2 k/uL (0-0.7); Eosinophils % (A) 2 %; Glucose 358 mg/dL (74-99); HCT 37.3 % (34.0-46.0); Hypochromasia Slight; Lymphocytes # (A) 1.5 k/uL (1.0-4.8); Lymphocytes % (A) 22 %; MCH 30.5 pg (25.0-35.0); MCHC 32.1 g/dL (31.0-37.0); MCV 95.2 fL (80.0-100.0); Magnesium 2.3 mg/dL (1.6-2.3); Monocytes # (A) 0.3 k/uL (0-1.0); Monocytes % (A) 4 %; Neutrophils # (A) 4.8 k/uL (1.3-7.7); Neutrophils % (A) 71 %; Non-African American GFR(CKD) 73 (>60 ml/min/1.73 sqM); Platelet Count 147 k/uL (150-450); Potassium 4.7 mmol/L (3.5-5.1); RBC 3.92 m/uL (3.80-5.40); RDW 15.6 % (11.5-15.5); Sodium 136 mmol/L (137-145); Total Bilirubin 0.4 mg/dL (0.2-1.3); Total Protein 7.3 g/dL (6.3-8.2); WBC 6.8 k/uL (3.8-10.6)
[2023-06-21 13:01] LABS: INR 0.9 (<1.2)
[2023-06-21 13:10] LABS: Partial Thromboplastin Time 19.2 sec (22.0-30.0)
--- NOTE | 2023-06-21 13:12 | XR ---
EXAMINATION TYPE: XR chest 2V DATE OF EXAM: 06/21/2023 COMPARISON: 09/11/2021 HISTORY: Shortness of breath TECHNIQUE: Frontal and lateral views of the chest are obtained. FINDINGS: Scattered senescent parenchymal changes noted. Hyperinflation compatible with COPD. No evidence for infiltrate. No evidence for atelectasis. Heart size is stable. Pulmonary venous congestion without overt failure. Mediastinal structures are stable and grossly unremarkable. No evidence for hilar prominence. Degenerative changes dorsal spine. IMPRESSION: 1. No evidence for acute pulmonary disease.
[2023-06-21] MEDS ORDERED: methylPREDNISolone SOD SUCCI 125 MG/2 ML VIAL IV STA (13:14)
[2023-06-21] MEDS ORDERED: FAMOTIDINE 20 MG/2 ML VIAL IV STA (13:14)
[2023-06-21] MEDS ORDERED: diphenhydrAMINE 50 MG/ML 1 ML VIAL IVP STA (13:14)
--- NOTE | 2023-06-21 14:31 | US ---
EXAMINATION TYPE: US venous doppler duplex LE LT DATE OF EXAM: 06/21/2023 2:14 PM COMPARISON: NONE CLINICAL INDICATION: Female, 68 years old with history of pain; Hx of DVT. No hx of DVT. Patient is o n Plavix and aspirin. SIDE PERFORMED: Left TECHNIQUE: The lower extremity deep venous system is examined utilizing real time linear array sonog macie with graded compression, doppler sonography and color-flow sonography. VESSELS IMAGED: Common Femoral Vein Deep Femoral Vein Greater Saphenous Vein * Femoral Vein Popliteal Vein Small Saphenous Vein * Proximal Calf Veins (* superficial vessels) Left Leg: Extremely limited exam due to patient body habitus and pain level. Unable to visualize distal femoral vein in transverse views. Color flow shown within veins imaged, although there were gr eat limitations. IMPRESSION: Limited study without evidence for DVT
--- NOTE | 2023-06-21 15:56 | CT ---
EXAMINATION TYPE: CT angio chest DATE OF EXAM: 06/21/2023 COMPARISON: none HISTORY: CP x3days. CT DLP: 911.1 mGycm CONTRAST: CT chest with contrast and 3D reconstruction with MIP imaging is performed with IV Contrast, patient injected with 100 ml mL of Isovue 370. Contrast-enhanced CT of the chest was performed through the course of the pulmonary arteries with basilia g and mediastinal window settings submitted. 3D reconstruction with MIP imaging was also performed. PULMONARY ARTERIES: The pulmonary arteries and their major tributaries are patent. I do not see lauro dence for sizable filling defect to suggest pulmonary embolic process. LUNGS: The lungs are clear and free of infiltrate. No evidence for atelectasis. No pulmonary nodule or mass is detected. No pleural effusion. MEDIASTINUM: Thoracic aorta is of normal caliber. The heart is enlarged. No evidence for mediastin al mass. No mediastinal lymph nodes greater than 1cm. HILAR STRUCTURES: No evidence for mass. No hilar lymph nodes greater than 1 cm. UPPER ABDOMEN: No significant abnormality is seen. IMPRESSION: 1. No evidence for Pulmonary embolism at this time.
[2023-06-21] MEDS ORDERED: NITROGLYCERIN SL TABS 0.4 MG TAB SUBLINGUAL PRN (17:17)
[2023-06-21] MEDS: NITROGLYCERIN OINT 1 INCH/GM PACKET TOPICAL SCH (17:58)
[2023-06-21 18:20] LABS: Glucose,Whole Blood 320 mg/dL (70-110)
[2023-06-21] MEDS ORDERED: DEXTROSE 50% SYRINGE 50 ML IVP PRN ×4 (19:23→21:25)
[2023-06-21] MEDS: oxyCODONE-APAP 10-325MG 1 EACH TAB PO SCH (20:03)
[2023-06-21] MEDS: ALPRAZolam 1 MG TAB PO SCH (20:03)
[2023-06-21] MEDS ORDERED: diphenhydrAMINE 25 MG CAP PO PRN (20:53)
[2023-06-21 20:58] LABS: Glucose,Whole Blood 465 mg/dL (70-110)
[2023-06-21] MEDS: METOPROLOL TARTRATE 25 MG TAB PO SCH (21:19)
[2023-06-21] MEDS: PRIMIDONE 50 MG TAB PO SCH (21:19)
[2023-06-21] MEDS: traZODone HCL 100 MG TAB PO SCH (21:19)
[2023-06-21] MEDS: INSULIN ASPART (NovoLOG) 100 UNIT/ML VIAL SQ SCH ×2 (21:22→22:20)
[2023-06-21] MEDS ORDERED: METOCLOPRAMIDE 5 MG TAB PO PRN (21:24)
[2023-06-21] MEDS ORDERED: ALPRAZOLAM 2 MG PO SCH (22:00)
[2023-06-21] MEDS: INSULIN DETEMIR (LEVEMIR) 100 UNIT/ML SYR SQ SCH (22:19)
[2023-06-21 22:25] LABS: Glucose,Whole Blood 443 mg/dL (70-110)
[2023-06-22] MEDS: NITROGLYCERIN OINT 1 INCH/GM PACKET TOPICAL SCH ×3 (00:30→11:45)
[2023-06-22 00:40] LABS: Glucose,Whole Blood 373 mg/dL (70-110)
[2023-06-22 05:30] LABS: Glucose,Whole Blood 348 mg/dL (70-110)
[2023-06-22] MEDS: INSULIN ASPART (NovoLOG) 100 UNIT/ML VIAL SQ SCH ×4 (06:08→12:18)
[2023-06-22] MEDS ORDERED: LEVOTHYROXINE 100 MCG TAB PO SCH (06:30)
[2023-06-22 08:11] LABS: Glucose,Whole Blood 367 mg/dL (70-110)
[2023-06-22 08:44] VITALS: RESP 18
[2023-06-22] MEDS: METOPROLOL TARTRATE 25 MG TAB PO SCH (08:45)
[2023-06-22] MEDS: INSULIN DETEMIR (LEVEMIR) 100 UNIT/ML SYR SQ SCH (08:45)
[2023-06-22] MEDS: traZODone HCL 100 MG TAB PO SCH (08:45)
[2023-06-22] MEDS: oxyCODONE-APAP 10-325MG 1 EACH TAB PO SCH (08:46)
[2023-06-22] MEDS: PRIMIDONE 50 MG TAB PO SCH ×2 (08:46→12:17)
--- NOTE | 2023-06-22 08:53 | P.HPIM ---
History of Present Illness This is a pleasant 68 years old female with multiple medical problems including Diabetes Mellitus, Deep Vein Thrombosis (DVT), GERD/Reflux, Hyperlipidemia, Hypertension, , Osteoarthritis (OA), Pulmonary Embolus (PE), T, Factor 5 leiden, DVT L leg, PE L lung, MIs x 5, palpitations, IDDM type II, neuropathy bilateral legs/feet, lymphedema L leg, chronic low back pain, bilateral sciatica,hx bronchitis, anemia, hypothyroid, hx UTI, IBS, sinus problems, worsening tremors, coronary artery disease status post stent, anxiety depression and panic disorder Patient presents because of mild central chest pain nonradiating on and off for the last 2 days but currently it's gone. Patient denies dyspnea or coughing or change in urine or bowel habits. No fever. Pain and using a walker for short distances, she cannot walk for long distances. She noticed recently worsening of trauma in her upper lower extremity and head ,she takes primidone for her tremor, shielded from the hospital long time ago and she does not follow up with the neurologist as an outpatient Vitals stable Labs unremarkable including CBC, BMP R liver enzymes and troponin. Causes elevated more than 304 100. Patient says she takes long-acting insulin 60 units twice a day and insulin sliding scale. CTA of the chest is negative for acute process no pulmonary embolism. Ultrasound of the neck is of limited study. Chest x-rays negative for acute process. EKG supraventricular rhythm at 74. With no ST-T changes Review of Systems Review of systems CONSTITUTIONAL: No fever, no malaise, no fatigue. HEENT: No recent visual problems or hearing problems. Denied any sore throat. CARDIOVASCULAR: No orthopnea, PND, no palpitations, no syncope. PULMONARY: No shortness of breath, no cough, no hemoptysis. GASTROINTESTINAL: No diarrhea, no nausea, no vomiting, no abdominal pain. Normoactive bowel sounds. NEUROLOGICAL: No headaches, no weakness, no numbness. HEMATOLOGICAL: Denies any bleeding or petechiae. GENITOURINARY: Denies any burning micturition, frequency, or urgency. MUSCULOSKELETAL/RHEUMATOLOGICAL: Denies any joint pain, swelling, or any muscle pain. ENDOCRINE: Denies any polyuria or polydipsia. Past Medical History Past Medical History: Blood Disorder, Cancer, Diabetes Mellitus, Deep Vein Thrombosis (DVT), GERD/Reflux, Hyperlipidemia, Hypertension, Myocardial Infarction ([place]), Neurologic Disorder, Osteoarthritis (OA), Pulmonary Embolus (PE), Thyroid Disorder Additional Past Medical History / Comment(s): Factor 5 leiden, DVT L leg, PE L lung, MIs x 5, palpitations, IDDM type II, neuropathy bilateral legs/feet, lymphedema L leg, charcot syndrome L foot, chronic low back pain, bilateral sciatica,hx bronchitis, anemia, hypothyroid, hx UTI, IBS, sinus problems, worsening tremors, "stomach shivering inside" plans to f/u with pcp. being seen for skin cancer removal. hx of pneumonia long ago Last Myocardial Infarction Date:: January 2020 History of Any Multi-Drug Resistant Organisms: None Reported Past Surgical History: Appendectomy, Cholecystectomy, Heart Catheterization With Stent, Hernia Repair, Hysterectomy, Tonsillectomy Additional Past Surgical History / Comment(s): Bilateral salpingectomy, bilateral oophorectomy, abdominal hernia surgeries, L foot fracture, bilateral cataract removals, epidural injections with last on 01/20/20 lumbar, LAST PROCEDURE 04/19/21 Past Anesthesia/Blood Transfusion Reactions: No Reported Reaction Additional Past Anesthesia/Blood Transfusion Reaction / Comment(s): Pt has received blood in past without reaction. Date of Last Stent Placement:: January 2020 Past Psychological History: Anxiety, Depression, Panic Disorder Smoking Status: Former smoker Past Alcohol Use History: None Reported Past Drug Use History: None Reported - Past Family History Mother Family Medical History: COPD Additional Family Medical History / Comment(s): Mother was a smoker. Father Family Medical History: Cancer Additional Family Medical History / Comment(s): Lung cancer. Father was a sm oker. Son(s) Family Medical History: Deep Vein Thrombosis (DVT) Medications and Allergies Home Medications Medication Instructions Recorded Confirmed Type Clopidogrel [Plavix] 75 mg PO DAILY 07/07/19 06/21/23 History DULoxetine HCL [Cymbalta] 60 mg PO DAILY 07/07/19 06/21/23 History Metoprolol Tartrate [Lopressor] 25 mg PO BID 07/07/19 06/21/23 History traZODone HCL [Desyrel] 100 mg PO BID 07/07/19 06/21/23 History Ezetimibe [Zetia] 10 mg PO DAILY 30 Days #30 tab 01/30/20 06/21/23 Rx Insulin Glargine,Hum.rec.anlog 60 units SQ BID 06/09/21 06/21/23 History [Lantus Solostar Pen] Insulin Lispro [humaLOG Kwikpen] See Protocol SQ 5XD PRN MDD 200 06/09/21 06/21/23 History units Levothyroxine Sodium [Synthroid] 300 mcg PO DAILY 08/30/21 06/21/23 History Primidone [Mysoline] 50 mg PO QID 08/30/21 06/21/23 History lisinopriL [Prinivil] 10 mg PO DAILY 08/30/21 06/21/23 History metOLazone [Zaroxolyn] 5 mg PO DAILY 08/30/21 06/21/23 History Metoclopramide [Reglan] 5 mg PO QID PRN 09/10/21 06/21/23 History ALPRAZolam [Xanax] 2 mg PO TID 10/05/22 06/21/23 History oxyCODONE HCL [Oxycodone HCl] 10 mg PO TID PRN 10/05/22 06/21/23 History Nystatin 100,000 Unit/gm Powd 1 applic TOPICAL BID 06/21/23 06/21/23 History [Mycostatin Powder] diphenhydrAMINE HCL [Benadryl] 25 mg PO QID PRN 06/21/23 06/21/23 History Allergies Allergy/AdvReac Type Severity Reaction Status Date / Time Iodinated Contrast Media Allergy Rash/Hives Verified 06/21/23 17:51 Iodine and Iodide Containing Allergy Rash/Hives Verified 06/21/23 17:51 Produc liraglutide [From Saxenda] AdvReac Unknown Nausea & Verified 06/21/23 17:51 Vomiting NSAIDS (Non-Steroidal AdvReac Unknown Nausea & Verified 06/21/23 17:51 Anti-Inflamma Vomiting aspirin AdvReac Nausea & Verified 06/21/23 17:51 Vomiting with high doses azithromycin AdvReac Vomiting Verified 06/21/23 17:51 naproxen [From Naprosyn] AdvReac Nausea & Verified 06/21/23 17:51 Vomiting Physical Exam Vitals: Vital Signs Temp Pulse Pulse Resp BP BP Pulse Ox 06/22/23 04:00 97.3 F L 66 15 130/53 92 L 06/22/23 00:31 97 F L 85 15 117/48 92 L 06/21/23 22:41 64 18 116/47 94 L 06/21/23 17:55 96.4 F L 82 18 162/84 95 06/21/23 14:15 77 18 153/75 94 L 06/21/23 12:51 75 18 155/82 95 06/21/23 12:05 98.3 F 77 18 95 Intake and Output 06/21/23 06/22/23 06/22/23 22:59 06:59 14:59 Output Total 600 Balance -600 Output: Urine 600 Other: # Voids 3 GENERAL: The patient is alert and oriented x3, not in any acute distress. Well developed, well nourished. HEENT: Pupils are round and equally reacting to light. EOMI. No scleral icterus. No conjunctival pallor. Normocephalic, atraumatic. No pharyngeal erythema. No thyromegaly. CARDIOVASCULAR: S1 and S2 present. No murmurs, rubs, or gallops. PULMONARY: Chest is clear to auscultation, no wheezing , no crackles. ABDOMEN: Soft, nontender, nondistended, normoactive bowel sounds. No palpable organomegaly. MUSCULOSKELETAL: No joint swelling or deformity. EXTREMITIES: No cyanosis, clubbing, or pedal edema. NEUROLOGICAL: Gross neurological examination did not reveal any focal deficits. SKIN: No rashes. no petechiae. Results CBC & Chem 7: 06/21/23 12:21 06/21/23 12:21 Labs: Abnormal Lab Results - Last 24 Hours (Table) 06/21/23 06/21/23 06/21/23 Range/Units 12:21 12:21 12:21 RDW 15.6 H (11.5-15.5) % Plt Count 147 L (150-450) k/uL APTT 19.2 L (22.0-30.0) sec D-Dimer 0.87 H (<0.60) mg/L FEU Sodium 136 L (137-145) mmol/L Glucose 358 H (74-99) mg/dL POC Glucose (mg/dL) (70-110) mg/dL AST 47 H (14-36) U/L Alkaline Phosphatase 294 H (38-126) U/L 06/21/23 06/21/2323 Range/Units 18:17 20:57 22:24 RDW (11.5-15.5) % Plt Count (150-450) k/uL APTT (22.0-30.0) sec D-Dimer (<0.60) mg/L FEU Sodium (137-145) mmol/L Glucose (74-99) mg/dL POC Glucose (mg/dL) 320 H 465 H 443 H (70-110) mg/dL AST (14-36) U/L Alkaline Phosphatase (38-126) U/L 06/22/23 06/22/23 06/22/23 Range/Units 00:39 05:29 08:09 RDW (11.5-15.5) % Plt Count (150-450) k/uL APTT (22.0-30.0) sec D-Dimer (<0.60) mg/L FEU Sodium (137-145) mmol/L Glucose (74-99) mg/dL POC Glucose (mg/dL) 373 H 348 H 367 H (70-110) mg/dL AST (14-36) U/L Alkaline Phosphatase (38-126) U/L Assessment and Plan Assessment: Worsening tremor of the upper extremity, lower extremity and head, on primidone at home Mild transient chest pain which is resolved now History of coronary artery disease status post stent Severe chronic back pain with gait limitation, using a walker for short distance Diabetes mellitus Lymphedema History of PE and DVT Factor 5 leiden History of GERD Hypertension Hyperlipidemia History of osteoarthritis Hypothyroidism Morbid obesity with BMI of 41.6 Plan: Continue with primidone Continue with Levemir 60 his twice a day At NovoLog 11 units with meals Dose consult which cleared the patient Labs and medication were reviewed.. Continue same treatment. Continue with s ymptomatic treatment. Resume home medication. Monitor lytes and vitals. DVT and GI prophylaxis. Further recommendations depends on the clinical course of the patient DVT prophylaxis: Subcutaneous heparin GI Prophylaxis: Pepcid PT/OT: Pending Prognosis is guarded
[2023-06-22] MEDS ORDERED: metOLazone 5 MG TAB PO SCH (09:00)
[2023-06-22] MEDS ORDERED: EZETIMIBE 10 MG TAB PO SCH (09:00)
[2023-06-22] MEDS ORDERED: NYSTATIN 100,000 UNIT/GM POWD 15 GM TOPICAL SCH (09:00)
[2023-06-22] MEDS ORDERED: ASPIRIN 325 MG TAB PO SCH (09:00)
[2023-06-22] MEDS ORDERED: CLOPIDOGREL 75 MG TAB PO SCH (09:00)
[2023-06-22] MEDS ORDERED: lisinopriL 10 MG TAB PO SCH (09:00)
[2023-06-22] MEDS ORDERED: DULoxetine HCL 60 MG CAPSULE.DR PO SCH (09:00)
[2023-06-22] MEDS: ALPRAZolam 1 MG TAB PO SCH (09:02)
[2023-06-22 09:15] LABS: Chol/HDL Ratio 3.52 Ratio; LDL Cholesterol,Calculated 107.4 mg/dL (0.0-131.0)
--- NOTE | 2023-06-22 11:29 | P.CRDCN ---
History of Present Illness Consult date: 06/22/23 Consult reason: chest pain History of present illness: History of present illness: This is a 68-year-old female patient of Dr. JOSH Babcock with past medical history of coronary artery disease with previous anterior MN status post PCI to LAD on 2 occasions, hypertension, hyperlipidemia, obesity, lymphedema, diabetes mellitus type 2 uncontrolled. We have been asked to evaluate the patient for chest pain. Patient states she came into the hospital because her blood sugars were high she states I don't know why they're high. Patient was instructed to follow-up with endocrinology at her last office appointment in October of this year but she has not done this. Patient states that she developed shaking all over and then had some low back pain and a little bit of chest pain in the left side of her chest that lasted less than 5 seconds. She denies any chest pain at this time. Patient is seen in the emergency center waiting for a bed on the observation unit. EKG sinus rhythm with right bundle branch block. CAT scan of the brain was performed for headache CTA of the chest negative for pulmonary embolism Ultrasound of the left lower extremity limited but no DVT. Chest x-ray: No acute finding WBC 6.8, hemoglobin 12, platelet count 147. INR 0.9. D-dimer 0.87. Sodium 136 otherwise electrolytes are normal, creatinine 0.83. Blood sugar in the 300s. Alkaline phosphatase 294, troponin negative 3. Triglycerides 197, cholesterol 205, LDL 107, HDL 58. Home cardiac medications: Plavix 75 mg daily, Zetia 10 mg daily, lisinopril 10 mg daily, Zaroxolyn 5 mg daily, Lopressor 25 mg twice daily, levothyroxine 300 g daily. Lexiscan Cardiolite stress test performed 05/2020 revealed normal perfusion study. EF 65%. Cardiac catheterization performed 02/07/[address] Rivas revealed critical lesion involving the stent in the LAD which is immediately after first septal branch. Moderate disease in the mid RCA. Stent was placed in the LAD with plan for stress test in the next 4-6 weeks to see if there is ischemia in the right coronary artery. Cardiac catheterization performed 01/28/[address] Rivas in the setting of a non-ST elevated MN revealed critical stenosis of the proximal LAD and moderate to significant disease in the mid right coronary artery and patient underwent successful stenting of the proximal LAD by Dr. Lamas. Echocardiogram performed 01/29/2020 revealed EF 40-45%, mild concentric left ventricle hypertrophy, trace to mild mitral regurgitation, mild tricuspid regurgitation, no pulmonary hypertension. Echocardiogram performed in the office on 10/05/2022 revealed EF of 55%, moderate concentric left vascular hypertrophy, mild mitral regurgitation, mild tricuspid regurgitation, normal pulmonary artery systolic pressure. Review Of Systems: At the time of my evaluation: Constitutional: No fever, no chills. No weakness, fatigue or lethargy. EENT: No headache. No dizziness. Lungs: No shortness of breath, cough, no sputum production. No wheezing. Cardiovascular: No chest pain, no lower extremity edema. No palpitations. No paroxysmal nocturnal dyspnea. No orthopnea. No lightheadedness or dizziness. No syncopal episodes. Abdominal: No abdominal pain. No nausea, vomiting. No diarrhea. Musculoskeletal: No myalgias. No muscle weakness, no frequent falls. + back pain. Integumentary: No wounds. No rash. No unusual bruising. Neurologic: No aphasia. No facial droop. No change in mentation. Physical examination: Gen: This is a 68-year-old morbidly obese female. She is resting on the ER stretcher and appears to be comfortable and in no acute distress. VS: reviewed blood pressure 132/89, heart rate in the 60s to 80s, afebrile, pulse ox 95% on room air. HEENT: Head is atraumatic, normocephalic. Pupils equal, round. Sclerae is anicteric. NECK: Supple. No JVD. LUNGS: Clear to auscultation. No wheezes or rhonchi. No intercostal retractions. HEART: Regular rate and rhythm. No murmur. ABDOMEN: Soft No tenderness. EXTREMITIES: No pedal edema. No calf tenderness. NEUROLOGICAL: Patient is awake, alert and oriented x3. Assessment: Atypical chest pain, acute coronary syndrome ruled out Uncontrolled diabetes mellitus type 2 Stable coronary artery disease Plan: Continue patient's home cardiac medications Patient is cleared for discharge from cardiology and appointment may be made in the office for the afternoon of July 04. Thank you kindly for this consultation. Nurse practitioner note has been reviewed, I agree with documented findings and plan of care. Patient was seen and examined. Past Medical History Past Medical History: Blood Disorder, Cancer, Diabetes Mellitus, Deep Vein Thrombosis (DVT), GERD/Reflux, Hyperlipidemia, Hypertension, Myocardial Infarction ([place]), Neurologic Disorder, Osteoarthritis ([place]), Pulmonary Embolus ([place]), Thyroid Disorder Additional Past Medical History / Comment(s): Factor 5 leiden, DVT L leg, PE L lung, MIs x 5, palpitations, IDDM type II, neuropathy bilateral legs/feet, lymphedema L leg, charcot syndrome L foot, chronic low back pain, bilateral sciatica,hx bronchitis, anemia, hypothyroid, hx UTI, IBS, sinus problems, worsening tremors, "stomach shivering inside" plans to f/u with pcp. being seen for skin cancer removal. hx of pneumonia long ago Last Myocardial Infarction Date:: January 2020 History of Any Multi-Drug Resistant Organisms: None Reported Past Surgical History: Appendectomy, Cholecystectomy, Heart Catheterization With Stent, Hernia Repair, Hysterectomy, Tonsillectomy Additional Past Surgical History / Comment(s): Bilateral salpingectomy, bilateral oophorectomy, abdominal hernia surgeries, L foot fracture, bilateral cataract removals, epidural injections with last on 01/20/20 lumbar, LAST PROCEDURE 04/19/21 Past Anesthesia/Blood Transfusion Reactions: No Reported Reaction Additional Past Anesthesia/Blood Transfusion Reaction / Comment(s): Pt has received blood in past without reaction. Date of Last Stent Placement:: January 2020 Past Psychological History: Anxiety, Depression, Panic Disorder Smoking Status: Former smoker Past Alcohol Use History: None Reported Past Drug Use History: None Reported - Past Family History Mother Family Medical History: COPD Additional Family Medical History / Comment(s): Mother was a smoker. Father Family Medical History: Cancer Additional Family Medical History / Comment(s): Lung cancer. Father was a smoker. Son(s) Family Medical History: Deep Vein Thrombosis (DVT) Medications and Allergies Home Medications Medication Instructions Recorded Confirmed Type Clopidogrel [Plavix] 75 mg PO DAILY 07/07/19 06/21/23 History DULoxetine HCL [Cymbalta] 60 mg PO DAILY 07/07/19 06/21/23 History Metoprolol Tartrate [Lopressor] 25 mg PO BID 07/07/19 06/21/23 History traZODone HCL [Desyrel] 100 mg PO BID 07/07/19 06/21/23 History Ezetimibe [Zetia] 10 mg PO DAILY 30 Days #30 tab 06/26/20 11/16/23 Rx Insulin Glargine,Hum.rec.anlog 60 units SQ BID 06/09/21 06/21/23 History [Lantus Solostar Pen] Insulin Lispro [humaLOG Kwikpen] See Protocol SQ 5XD PRN MDD 200 06/09/21 History units Levothyroxine Sodium [Synthroid] 300 mcg PO DAILY 08/30/21 06/21/23 History Primidone [Mysoline] 50 mg PO QID 08/30/21 06/21/23 History lisinopriL [Prinivil] 10 mg PO DAILY 08/30/21 06/21/23 History metOLazone [Zaroxolyn] 5 mg PO DAILY 08/30/21 06/21/23 History Metoclopramide [Reglan] 5 mg PO QID PRN 09/10/21 06/21/23 History ALPRAZolam [Xanax] 2 mg PO TID 10/05/22 06/21/23 History oxyCODONE HCL [Oxycodone HCl] 10 mg PO TID PRN 10/05/22 06/21/23 History Nystatin 100,000 Unit/gm Powd 1 applic TOPICAL BID 06/21/23 06/21/23 History [Mycostatin Powder] diphenhydrAMINE HCL [Benadryl] 25 mg PO QID PRN 06/21/23 06/21/23 History Allergies Allergy/AdvReac Type Severity Reaction Status Date / Time Iodinated Contrast Media Allergy Rash/Hives Verified 06/21/23 17:51 Iodine and Iodide Containing Allergy Rash/Hives Verified 06/21/23 17:51 Produc liraglutide [From Saxenda] AdvReac Unknown Nausea & Verified 06/21/23 17:51 Vomiting NSAIDS (Non-Steroidal AdvReac Unknown Nausea & Verified 06/21/23 17:51 Anti-Inflamma Vomiting aspirin AdvReac Nausea & Verified 06/21/23 17:51 Vomiting with high doses azithromycin AdvReac Vomiting Verified 06/21/23 17:51 naproxen [From Naprosyn] AdvReac Nausea & Verified 06/21/23 17:51 Vomiting Physical Exam Vitals: Vital Signs Temp Pulse Pulse Resp BP BP Pulse Ox 06/22/23 04:00 97.3 F L 66 15 130/53 92 L 06/22/23 00:31 97 F L 85 15 117/48 92 L 06/21/23 22:41 64 18 116/47 94 L 06/21/23 17:55 96.4 F L 82 18 162/84 95 06/21/23 14:15 77 18 153/75 94 L 06/21/23 12:51 75 18 155/82 95 06/21/23 12:05 98.3 F 77 18 95 Intake and Output 06/21/23 06/22/23 06/22/23 22:59 06:59 14:59 Output Total 600 Balance -600 Output: Urine 600 Other: # Voids 3 Results 06/21/23 12:21 06/21/23 12:21 Cardiac Enzymes 06/21/23 06/21/23 06/21/23 Range/Units 12:21 12:21 17:27 AST 47 H (14-36) U/L Troponin I <0.012 <0.012 (0.000-0.034) ng/mL 06/21/23 Range/Units 20:17 AST (14-36) U/L Troponin I <0.012 (0.000-0.034) ng/mL Coagulation 06/21/23 Range/Units 12:21 PT 10.0 (10.0-12.5) sec APTT 19.2 L (22.0-30.0) sec CBC 06/21/23 Range/Units 12:21 WBC 6.8 (3.8-10.6) k/uL RBC 3.92 (3.80-5.40) m/uL Hgb 12.0 (11.4-16.0) gm/dL Hct 37.3 (34.0-46.0) % Plt Count 147 L (150-450) k/uL Comprehensive Metabolic Panel 06/21/23 Range/Units 12:21 Sodium 136 L (137-145) mmol/L Potassium 4.7 (3.5-5.1) mmol/L Chloride 101 (98-107) mmol/L Carbon Dioxide 26 (22-30) mmol/L BUN 16 (7-17) mg/dL Creatinine 0.83 (0.52-1.04) mg/dL Glucose 358 H (74-99) mg/dL Calcium 8.4 (8.4-10.2) mg/dL AST 47 H (14-36) U/L ALT 27 (4-34) U/L Alkaline Phosphatase 294 H (38-126) U/L Total Protein 7.3 (6.3-8.2) g/dL Albumin 3.7 (3.5-5.0) g/dL Current Medications Generic Name Dose Route Start Last Admin Trade Name Freq PRN Reason Stop Dose Admin Alprazolam 2 mg 06/21/23 20:00 06/21/23 20:03 Alprazolam 1 Mg Tab PO 2 mg TID FLO Administration Aspirin 325 mg 06/22/23 09:00 Aspirin 325 Mg Tab PO DAILY [facility] Clopidogrel Bisulfate 75 mg 06/22/23 09:00 Clopidogrel 75 Mg Tab PO DAILY [facility] Dextrose/Water 25 ml 06/21/23 19:23 Dextrose 50% Syringe 50 Ml IVP PER PROTOCOL PRN Hypoglycemia Protocol Dextrose/Water 50 ml 06/21/23 19:23 Dextrose 50% Syringe 50 Ml IVP PER PROTOCOL PRN Hypoglycemia Protocol Dextrose/Water 25 ml 06/21/23 21:25 Dextrose 50% Syringe 50 Ml IVP PER PROTOCOL PRN Hypoglycemia Protocol Dextrose/Water 50 ml 06/21/23 21:25 Dextrose 50% Syringe 50 Ml IVP PER PROTOCOL PRN Hypoglycemia Protocol Diphenhydramine HCl 25 mg 06/21/23 20:53 Diphenhydramine 25 Mg Cap PO QID PRN ALLERGIES/ITCHING Duloxetine HCl 60 mg 06/22/23 09:00 Duloxetine Hcl 60 Mg Capsule.Dr PO DAILY [facility] Ezetimibe 10 mg 06/22/23 09:00 Ezetimibe 10 Mg Tab PO DAILY [facility] Insulin Aspart 0 unit 06/21/23 21:00 06/22/23 06:08 Insulin Aspart (Novolog) 100 Unit/Ml Vial SQ 8 unit ACHS [facility] Administration Protocol Insulin Aspart 11 unit 06/21/23 21:25 06/21/23 22:20 Insulin Aspart (Novolog) 100 Unit/Ml Vial 0.1 unit/kg (11 unit) 11 unit SQ Administration AC-TID [facility] Insulin Detemir 60 unit 06/21/23 21:30 06/21/23 22:19 Insulin Detemir (Levemir) 100 Unit/Ml Syr SQ 60 unit BID@0700,2100 [facility] Administration Levothyroxine Sodium 300 mcg 06/22/23 06:30 06/22/23 06:10 Levothyroxine 100 Mcg Tab PO 300 mcg 0630 [facility] Administration Lisinopril 10 mg 06/22/23 09:00 Lisinopril 10 Mg Tab PO DAILY [facility] Metoclopramide HCl 5 mg 06/21/23 21:24 Metoclopramide 5 Mg Tab PO QID PRN Nausea Metolazone 5 mg 06/22/23 09:00 Metolazone 5 Mg Tab PO DAILY [facility] Metoprolol Tartrate 25 mg 06/21/23 21:00 06/21/23 21:19 Metoprolol Tartrate 25 Mg Tab PO 25 mg BID [facility] Administration Nitroglycerin 0.4 mg 06/21/23 17:17 Nitroglycerin Sl Tabs 0.4 Mg Tab SUBLINGUAL Q5M PRN Chest Pain Nitroglycerin 1 inch 06/21/23 18:00 06/22/23 00:30 Nitroglycerin Oint 1 Inch/Gm Packet TOPICAL Not Given Q6HR [facility] Nystatin 1 applic 06/22/23 09:00 Nystatin 100,000 Unit/Gm Powd 15 Gm TOPICAL BID [facility] Protocol Oxycodone HCl 10 mg 06/21/23 20:53 06/22/23 05:49 Oxycodone Hcl 5 Mg Tab PO 10 mg TID PRN Administration BACK PAIN Oxycodone/Acetaminophen 1 each 06/21/23 20:00 06/21/23 20:03 Oxycodone-Apap 10-325mg 1 Each Tab PO 1 each TID [facility] Administration Primidone 50 mg 06/21/23 22:00 06/21/23 21:19 Primidone 50 Mg Tab PO 50 mg QID [facility] Administration Trazodone HCl 100 mg 06/21/23 21:00 06/21/23 21:19 Trazodone Hcl 100 Mg Tab PO 100 mg BID [facility] Administration Intake and Output 06/21/23 06/22/23 06/22/23 22:59 06:59 14:59 Output Total 600 Balance -600 Output: Urine 600 Other: # Voids 3 06/21/23 12:21 06/21/23 12:21
[2023-06-22 12:12] LABS: Glucose,Whole Blood 315 mg/dL (70-110)
[2023-06-22] MEDS ORDERED: PRIMIDONE 250 MG TAB PO SCH (14:00)
[2023-06-22 18:06] VITALS: BP 124/66; PULSE 63; TEMP 97.5
[2023-06-22] MEDS ORDERED: PROPRANOLOL 40 MG TAB PO SCH (21:00)
== END 2023-06-22 18:19 | disposition home health service (06) ==
LOC: EC 12:04 → 6NMEDSUR 17:19
PROVIDERS: ADMIT Hospitalist; ATTEND Hospitalist
DX: R07.89 Other chest pain (principal); E11.65 Type 2 diabetes mellitus with hyperglycemia; R25.1 Tremor, unspecified; I25.10 Atherosclerotic heart disease of native coronary artery without angina pectoris; K21.9 Gastro-esophageal reflux disease without esophagitis; E78.5 Hyperlipidemia, unspecified; I10 Essential (primary) hypertension; E11.40 Type 2 diabetes mellitus with diabetic neuropathy, unspecified; G89.29 Other chronic pain; M54.50 Low back pain, unspecified; E03.9 Hypothyroidism, unspecified; F32.A Depression, unspecified; F41.0 Panic disorder [episodic paroxysmal anxiety]; I89.0 Lymphedema, not elsewhere classified; D68.51 Activated protein C resistance; I25.2 Old myocardial infarction; E66.01 Morbid (severe) obesity due to excess calories; Z68.41 Body mass index [BMI] 40.0-44.9, adult; Z85.828 Personal history of other malignant neoplasm of skin; Z86.711 Personal history of pulmonary embolism; Z86.718 Personal history of other venous thrombosis and embolism; Z87.891 Personal history of nicotine dependence; Z95.5 Presence of coronary angioplasty implant and graft; Z79.02 Long term (current) use of antithrombotics/antiplatelets; Z79.4 Long term (current) use of insulin; Z79.890 Hormone replacement therapy; Z79.899 Other long term (current) drug therapy; Z88.1 Allergy status to other antibiotic agents; Z88.6 Allergy status to analgesic agent
CPT/HCPCS: 96372 ×2; 96374; 96375; 99285; 36415; 93005; 97162; 85379; 80061; 80053; 83735; 84484; 85025; 85610; 85730; 83036; 71046; 93971; 71275; G0378 ×3; J2060; J1200; J2930; J3490; Q9967

== ENCOUNTER 2023-08-07 09:11 | Emergency (ER) | payer MEDICARE, BC ==
[2023-08-07] MEDS ORDERED: HYDROmorphone 1 MG/ML 1 ML SYRINGE IM STA (09:58)
--- NOTE | 2023-08-07 10:00 | ED ---
General Adult HPI - General Chief complaint: Extremity Injury, Lower Stated complaint: Left hip pain Time Seen by Provider: 08/07/23 09:15 Source: patient, RN notes reviewed Mode of arrival: EMS Limitations: no limitations - History of Present Illness Initial comments: Patient is a pleasant 68-year-old female presenting to the emergency department with concerns for left hip pain. Patient did have a fall yesterday. Patient states her knee gave out which it does do occasionally. Patient landed on her left hip. Patient has had left hip pain since that time. Patient is only able to ambulate using a walker and with assistance of family. Otherwise unable to get out of bed. Patient has only been on about a couple of times. No history of chronic hip problems. - Related Data Home Medications Medication Instructions Recorded Confirmed Clopidogrel [Plavix] 75 mg PO DAILY 07/07/19 06/21/23 DULoxetine HCL [Cymbalta] 60 mg PO DAILY 07/07/19 06/21/23 traZODone HCL [Desyrel] 100 mg PO BID 07/07/19 06/21/23 Insulin Glargine,Hum.rec.anlog 60 units SQ BID 06/09/21 06/21/23 [Lantus Solostar Pen] Insulin Lispro [humaLOG Kwikpen] See Protocol SQ 5XD PRN MDD 200 06/09/21 06/21/23 units Levothyroxine Sodium [Synthroid] 300 mcg PO DAILY 08/30/21 06/21/23 lisinopriL [Prinivil] 10 mg PO DAILY 08/30/21 06/21/23 metOLazone [Zaroxolyn] 5 mg PO DAILY 08/30/21 06/21/23 Metoclopramide [Reglan] 5 mg PO QID PRN 09/10/21 06/21/23 ALPRAZolam [Xanax] 2 mg PO TID 10/05/22 06/21/23 oxyCODONE HCL [oxyCODONE HCL (IR)] 10 mg PO TID PRN 10/05/22 06/21/23 Nystatin 100,000 Unit/gm Powd 1 applic TOPICAL BID 06/21/23 06/21/23 [Mycostatin Powder] diphenhydrAMINE HCL [Benadryl] 25 mg PO QID PRN 06/21/23 06/21/23 Previous Rx's Medication Instructions Recorded Ezetimibe [Zetia] 10 mg PO DAILY 30 Days #30 tab 01/30/20 INSULIN ASPART (NovoLOG) [NovoLOG 11 unit SQ AC-TID #10 ml 06/22/23 (formulary)] Primidone [Mysoline] 125 mg PO BID #60 tab 06/22/23 Propranolol [Inderal] 40 mg PO BID #60 tab 06/22/23 Allergies Allergy/AdvReac Type Severity Reaction Status Date / Time Iodinated Contrast Media Allergy Rash/Hives Verified 08/07/23 09:16 Iodine and Iodide Containing Allergy Rash/Hives Verified 08/07/23 09:16 Produc liraglutide [From Saxenda] AdvReac Unknown Nausea & Verified 08/07/23 09:16 Vomiting NSAIDS (Non-Steroidal AdvReac Unknown Nausea & Verified 08/07/23 09:16 Anti-Inflamma Vomiting aspirin AdvReac Nausea & Verified 08/07/23 09:16 Vomiting with high doses azithromycin AdvReac Vomiting Verified 08/07/23 09:16 naproxen [From Naprosyn] AdvReac Nausea & Verified 08/07/23 09:16 Vomiting Review of Systems ROS Statement: Those systems with pertinent positive or pertinent negative responses have been documented in the HPI. ROS Other: All systems not noted in ROS Statement are negative. Constitutional: Denies: fever Eyes: Denies: eye pain ENT: Denies: ear pain Respiratory: Denies: cough, dyspnea Cardiovascular: Denies: chest pain Endocrine: Denies: fatigue Gastrointestinal: Denies: abdominal pain Musculoskeletal: Reports: as per HPI. Denies: back pain Past Medical History Past Medical History: Blood Disorder, Cancer, Diabetes Mellitus, Deep Vein Thrombosis (DVT), GERD/Reflux, Hyperlipidemia, Hypertension, Myocardial Infarction (TX), Neurologic Disorder, Osteoarthritis (OA), Pulmonary Embolus (PE), Thyroid Disorder Additional Past Medical History / Comment(s): Factor 5 leiden, DVT L leg, PE L lung, MIs x 5, palpitations, IDDM type II, neuropathy bilateral legs/feet, lymphedema L leg, charcot syndrome L foot, chronic low back pain, bilateral sciatica,hx bronchitis, anemia, hypothyroid, hx UTI, IBS, sinus problems, worsening tremors, "stomach shivering inside" plans to f/u with pcp. being seen for skin cancer removal. hx of pneumonia long ago Last Myocardial Infarction Date:: January 2020 History of Any Multi-Drug Resistant Organisms: None Reported Past Surgical History: Appendectomy, Cholecystectomy, Heart Catheterization With Stent, Hernia Repair, Hysterectomy, Tonsillectomy Additional Past Surgical History / Comment(s): Bilateral salpingectomy, bilateral oophorectomy, abdominal hernia surgeries, L foot fracture, bilateral cataract removals, epidural injections with last on 01/20/20 lumbar, LAST PROCEDURE 04/19/21 Past Anesthesia/Blood Transfusion Reactions: No Reported Reaction Additional Past Anesthesia/Blood Transfusion Reaction / Comment(s): Pt has received blood in past without reaction. Date of Last Stent Placement:: January 2020 Past Psychological History: Anxiety, Depression, Panic Disorder Smoking Status: Former smoker Past Alcohol Use History: None Reported Past Drug Use History: None Reported - Past Family History Mother Family Medical History: COPD Additional Family Medical History / Comment(s): Mother was a smoker. Father Family Medical History: Cancer Additional Family Medical History / Comment(s): Lung cancer. Father was a smoker. Son(s) Family Medical History: Deep Vein Thrombosis (DVT) General Exam Limitations: no limitations General appearance: alert, in no apparent distress Head exam: Present: atraumatic Eye exam: Present: normal appearance Neck exam: Present: normal inspection. Absent: tenderness Respiratory exam: Present: normal lung sounds bilaterally Cardiovascular Exam: Present: regular rate, normal rhythm Expanded Peripheral pulses: 2+: Dorsalis Pedis (R), Dorsalis Pedis (L) GI/Abdominal exam: Present: soft. Absent: tenderness Extremities exam: Present: tenderness (left Anterior and lateral hip. Distally the extremity is neurovascularly intact.) Back exam: Present: normal inspection Neurological exam: Present: alert. Absent: motor sensory deficit Psychiatric exam: Present: normal affect, normal mood Skin exam: Present: normal color Course Vital Signs 08/07/23 08/07/23 08/07/23 09:14 11:48 12:00 Temperature 98.6 F Pulse Rate 75 72 Respiratory 16 18 18 Rate Blood Pressure 128/56 118/60 118/60 O2 Sat by Pulse 93 L 94 L 95 Oximetry 08/07/23 13:11 Temperature Pulse Rate 70 Respiratory 18 Rate Blood Pressure 123/79 O2 Sat by Pulse 95 Oximetry - Reevaluation(s) Reevaluation #1: 08/07/23 13:38 Disposition delayed secondary to patient needing computed tomography scan for diagnosis as well as additional services for home. Medical Decision Making - Medical Decision Making Was pt. sent in by a medical professional or institution (RONI Hollis, NATIONAL INSURANCE OFFICER, urgent care, hospital, or fpc...) When possible be specific @ -No Did you speak to anyone other than the patient for history (EMS, parent, family, police, friend...)? What history was obtained from this source @ - is present and helps provide history of difficulty ambulating Did you review nursing and triage notes (agree or disagree)? Why? @ -I reviewed and agree with nursing and triage notes Were old charts reviewed (outside hosp., previous admission, EMS record, old EKG, old radiological studies, urgent care reports/EKG's, fpc records)? Report findings @ -No old charts were reviewed Differential Diagnosis (chest pain, altered mental status, abdominal pain women, abdominal pain men, vaginal bleeding, weakness, fever, dyspnea, syncope, headache, dizziness, GI bleed, back pain, seizure, CVA, palpatations, mental health, musculoskeletal)? @ -Differential Musculoskeletal Muscular strain, contusion, ligament sprain, fracture, arthritis, septic arthritis, bursitis, cellulitis, muscle spasm, nerve compression, DVT, arterial occlusion, herpes zoster, electrolyte abnormality, tumor.... This is not meant to be in all inclusive list EKG interpreted by me (3pts min.). @ -As above X-rays interpreted by me (1pt min.). @ -X-ray shows questionable pubic rami fracture. No hip fracture CT interpreted by me (1pt min.). @ -Computed tomography scan confirms superior and inferior pubic rami fracture U/S interpreted by me (1pt. min.). @ -None done What testing was considered but not performed or refused? (CT, X-rays, U/S, labs)? Why? @ -None What meds were considered but not given or refused? Why? @ -None Did you discuss the management of the patient with other professionals (professionals i.e. RONI Hollis, NATIONAL INSURANCE OFFICER, lab, RT, psych nurse, medical social worker, tip fixer, teacher, chief information officer, rn case mgr)? Give summary @ -No Was smoking cessation discussed for >3mins.? @ -No Was critical care preformed (if so, how long)? @ -No Were there social determinants of health that impacted care today? How? (Homel essness, low income, unemployed, alcoholism, drug addiction, transportation, low edu. Level, literacy, decrease access to med. care, fdc, rehab)? @ -No Was there de-escalation of care discussed even if they declined (Discuss DNR or withdrawal of care, Hospice)? DNR status @ -No What co-morbidities impacted this encounter? (DM, HTN, Smoking, COPD, CAD, Cancer, CVA, ARF, Chemo, Hep., AIDS, mental health diagnosis, sleep apnea, morbid obesity)? @ -None Was patient admitted / discharged? Hospital course, mention meds given and route, prescriptions, significant lab abnormalities, going to OR and other pertinent info. @ -Patient reevaluated. Patient family updated. Patient would like to be discharged home rather than admitted for placement. Patient updated on need for follow-up. Undiagnosed new problem with uncertain prognosis? @ -No Drug Therapy requiring intensive monitoring for toxicity (Heparin, Nitro, Insulin, Cardizem)? @ -No Were any procedures done? @ -No Diagnosis/symptom? @ -Pubic rami fracture Acute, or Chronic, or Acute on Chronic? @ -Acute Uncomplicated (without systemic symptoms) or Complicated (systemic symptoms)? @ -default Side effects of treatment? @ -No Exacerbation, Progression, or Severe Exacerbation? @ -No Poses a threat to life or bodily function? How? (Chest pain, [place], [place], pneumonia, PE, COPD, DKA, ARF, appy, cholecystitis, CVA, Diverticulitis, Homicidal, Suicidal, threat to staff... and all critical care pts) @ -No - Lab Data Result diagrams: 08/07/23 11:37 08/07/23 11:37 Lab Results 08/07/23 08/07/23 08/07/23 Range/Units 10:30 11:37 11:37 WBC 7.9 (3.8-10.6) k/uL RBC 3.89 (3.80-5.40) m/uL Hgb 11.9 (11.4-16.0) gm/dL Hct 37.4 (34.0-46.0) % MCV 96.3 (80.0-100.0) fL MCH 30.6 (25.0-35.0) pg MCHC 31.8 (31.0-37.0) g/dL RDW 16.1 H (11.5-15.5) % Plt Count 177 (150-450) k/uL MPV 9.2 Neutrophils % 68 % Lymphocytes % 22 % Monocytes % 4 % Eosinophils % 3 % Basophils % 0 % Neutrophils # 5.4 (1.3-7.7) k/uL Lymphocytes # 1.7 (1.0-4.8) k/uL Monocytes # 0.3 (0-1.0) k/uL Eosinophils # 0.3 (0-0.7) k/uL Basophils # 0.0 (0-0.2) k/uL Hypochromasia Slight Anisocytosis Slight PT 10.3 (10.0-12.5) sec INR 0.9 (<1.2) APTT 23.9 (22.0-30.0) sec Sodium (137-145) mmol/L Potassium (3.5-5.1) mmol/L Chloride (98-107) mmol/L Carbon Dioxide (22-30) mmol/L Anion Gap mmol/L BUN (7-17) mg/dL Creatinine (0.52-1.04) mg/dL Est GFR (CKD-EPI)AfAm (>60 ml/min/1.73 sqM) Est GFR (CKD-EPI)NonAf (>60 ml/min/1.73 sqM) Glucose (74-99) mg/dL Plasma Lactic Acid Lloyd (0.7-2.0) mmol/L Calcium (8.4-10.2) mg/dL Total Bilirubin (0.2-1.3) mg/dL AST (14-36) U/L ALT (4-34) U/L Alkaline Phosphatase (38-126) U/L Total Protein (6.3-8.2) g/dL Albumin (3.5-5.0) g/dL Urine Color Light Yellow Urine Appearance Cloudy H (Clear) Urine pH 6.0 (5.0-8.0) Ur Specific Adel 1.012 (1.001-1.035) Urine Protein Negative (Negative) Urine Glucose (UA) Negative (Negative) Urine Ketones Negative (Negative) Urine Blood Negative (Negative) Urine Nitrite Negative (Negative) Urine Bilirubin Negative (Negative) Urine Urobilinogen 2.0 (<2.0) mg/dL Ur Leukocyte Esterase Negative (Negative) Urine RBC 1 (0-5) /hpf Urine WBC 1 (0-5) /hpf Ur Squamous Epith Cells 3 (0-4) /hpf Urine Bacteria Rare H (None) /hpf 08/07/23 08/07/23 Range/Units 11:37 11:37 WBC (3.8-10.6) k/uL RBC (3.80-5.40) m/uL Hgb (11.4-16.0) gm/dL Hct (34.0-46.0) % MCV (80.0-100.0) fL MCH (25.0-35.0) pg MCHC (31.0-37.0) g/dL RDW (11.5-15.5) % Plt Count (150-450) k/uL MPV Neutrophils % % Lymphocytes % % Monocytes % % Eosinophils % % Basophils % % Neutrophils # (1.3-7.7) k/uL Lymphocytes # (1.0-4.8) k/uL Monocytes # (0-1.0) k/uL Eosinophils # (0-0.7) k/uL Basophils # (0-0.2) k/uL Hypochromasia Anisocytosis PT (10.0-12.5) sec INR (<1.2) APTT (22.0-30.0) sec Sodium 139 (137-145) mmol/L Potassium 5.3 H (3.5-5.1) mmol/L Chloride 102 (98-107) mmol/L Carbon Dioxide 29 (22-30) mmol/L Anion Gap 8 mmol/L BUN 31 H (7-17) mg/dL Creatinine 1.32 H (0.52-1.04) mg/dL Est GFR (CKD-EPI)AfAm 48 (>60 ml/min/1.73 sqM) Est GFR (CKD-EPI)NonAf 41 (>60 ml/min/1.73 sqM) Glucose 183 H (74-99) mg/dL Plasma Lactic Acid Lloyd 1.4 (0.7-2.0) mmol/L Calcium 8.6 (8.4-10.2) mg/dL Total Bilirubin 0.5 (0.2-1.3) mg/dL AST 31 (14-36) U/L ALT 17 (4-34) U/L Alkaline Phosphatase 251 H (38-126) U/L Total Protein 7.3 (6.3-8.2) g/dL Albumin 3.6 (3.5-5.0) g/dL Urine Color Urine Appearance (Clear) Urine pH (5.0-8.0) Ur Specific Adel (1.001-1.035) Urine Protein (Negative) Urine Glucose (UA) (Negative) Urine Ketones (Negative) Urine Blood (Negative) Urine Nitrite (Negative) Urine Bilirubin (Negative) Urine Urobilinogen (<2.0) mg/dL Ur Leukocyte Esterase (Negative) Urine RBC (0-5) /hpf Urine WBC (0-5) /hpf Ur Squamous Epith Cells (0-4) /hpf Urine Bacteria (None) /hpf Disposition Clinical Impression: Pubic ramus fracture Disposition: HOME SELF-CARE Condition: Stable Instructions (If sedation given, give patient instructions): Pelvic Fracture (ED) Additional Instructions: Please do follow-up with your primary care physician in the next day or 2 for recheck. Also follow-up with orthopedics, number provided. Return for increased pain, unable to take care of herself, worsening or changing symptoms or other concerns. Is patient prescribed a controlled substance at d/c from ED?: No Referrals: Miguel Sy MD [Primary Care Provider] - 08/14/23 1:10 pm Fareed Pool DO [Doctor of Osteopathic Medicine] - 1-2 days Time of Disposition: 13:42
[2023-08-07 10:44] LABS: Appearance,Urine Cloudy (Clear); Bacteria,Urine Rare /hpf; Bilirubin,Urine Negative (Negative); Blood,Urine Negative (Negative); Color,Urine Light Yellow; Glucose,Urine (UA) Negative (Negative); Ketones,Urine Negative (Negative); Leukocyte Esterase,Urine Negative (Negative); Nitrite,Urine Negative (Negative); Protein,Urine Negative (Negative); RBC,Urine 1 /hpf (0-5); Specific Gravity,Urine 1.012 (1.001-1.035); Squamous Epithelial Cell,Urine 3 /hpf (0-4); WBC,Urine 1 /hpf (0-5)
--- NOTE | 2023-08-07 11:16 | XR ---
EXAMINATION TYPE: XR Hip LT and AP Pelvis DATE OF EXAM: 08/07/2023 10:47 AM CLINICAL INDICATION:Female, 68 years old with history of fall; PHH COMPARISON: None. TECHNIQUE: XR Hip LT and AP Pelvis; hip was examined in the frontal and lateral projections and a AP pelvis. FINDINGS: No evidence for acute process, joint dislocation or significant soft tissue swelling. Osteo phyte formation of the superior acetabulum of the hip. IMPRESSION: 1. No evidence for acute process. 2. Mild hip osteoarthrosis.
[2023-08-07 12:01] LABS: Anisocytosis Slight; Basophils % (A) 0 %; Eosinophils # (A) 0.3 k/uL (0-0.7); Eosinophils % (A) 3 %; HCT 37.4 % (34.0-46.0); HGB 11.9 gm/dL (11.4-16.0); Hypochromasia Slight; Lymphocytes # (A) 1.7 k/uL (1.0-4.8); Lymphocytes % (A) 22 %; MCH 30.6 pg (25.0-35.0); MCHC 31.8 g/dL (31.0-37.0); MCV 96.3 fL (80.0-100.0); Mean Platelet Volume 9.2; Monocytes # (A) 0.3 k/uL (0-1.0); Monocytes % (A) 4 %; Neutrophils # (A) 5.4 k/uL (1.3-7.7); Neutrophils % (A) 68 %; Platelet Count 177 k/uL (150-450); RBC 3.89 m/uL (3.80-5.40); RDW 16.1 % (11.5-15.5); WBC 7.9 k/uL (3.8-10.6)
[2023-08-07 12:10] VITALS: RESP 18
[2023-08-07 12:14] LABS: ALT 17 U/L (4-34); AST 31 U/L (14-36); African American GFR (CKD) 48 (>60 ml/min/1.73 sqM); Albumin 3.6 g/dL (3.5-5.0); Alkaline Phosphatase 251 U/L (38-126); Anion Gap 8 mmol/L; Blood Urea Nitrogen 31 mg/dL (7-17); Calcium 8.6 mg/dL (8.4-10.2); Carbon Dioxide 29 mmol/L (22-30); Chloride 102 mmol/L (98-107); Glucose 183 mg/dL (74-99); Non-African American GFR(CKD) 41 (>60 ml/min/1.73 sqM); Potassium 5.3 mmol/L (3.5-5.1); Sodium 139 mmol/L (137-145); Total Bilirubin 0.5 mg/dL (0.2-1.3); Total Protein 7.3 g/dL (6.3-8.2)
[2023-08-07 12:30] LABS: INR 0.9 (<1.2); Partial Thromboplastin Time 23.9 sec (22.0-30.0); Prothrombin Time 10.3 sec (10.0-12.5)
[2023-08-07] MEDS ORDERED: MORPHINE SULFATE 4 MG/ML SYRINGE IVP STA (12:53)
--- NOTE | 2023-08-07 13:01 | CT ---
EXAMINATION TYPE: CT hip LT wo con CT DLP: 1236.6 mGycm, Automated exposure control for dose reduction was used. DATE OF EXAM: 08/07/2023 12:18 PM COMPARISON: . Extremity radiograph same day. CLINICAL INDICATION:Female, 68 years old with history of fall; PHH, fall, LEFT HIP PAIN TECHNIQUE: Axial images were obtained of the CT hip LT wo con, Additional coronal and sagittal reform atted images and soft tissue and bone window were obtained for review. 3-D reconstruction was created on a separate workstation. Contrast used: mL of , (None if empty) Oral contrast used: (None if empty) FINDINGS: There is a nondisplaced fracture of the left inferior pubic ramus series 201 image 38 and s uperior pubic ramus series 202 image 40. The femur appears intact. No additional fractures identified . The femur is intact. There is atherosclerosis of the arterial vasculature. Scattered varicosities a re seen in the anterior low subcutaneous tissues. IMPRESSION: Nondisplaced fracture of the left inferior and superior pubic rami. The femur appears intact.
[2023-08-07] MEDS ORDERED: HYDROmorphone 1 MG/ML 1 ML SYRINGE IVP STA (13:20)
[2023-08-07 15:36] VITALS: BP 125/56; PULSE 67; TEMP 98.1
== END 2023-08-07 15:16 | disposition home or self-care (01) ==
LOC: EC 09:11
DX: S32.512A Fracture of superior rim of left pubis, initial encounter for closed fracture (principal); E11.9 Type 2 diabetes mellitus without complications; I10 Essential (primary) hypertension; I25.2 Old myocardial infarction; G47.30 Sleep apnea, unspecified; E03.9 Hypothyroidism, unspecified; E78.5 Hyperlipidemia, unspecified; M19.90 Unspecified osteoarthritis, unspecified site; F41.9 Anxiety disorder, unspecified; F32.A Depression, unspecified; Z79.890 Hormone replacement therapy; Z79.4 Long term (current) use of insulin; Z79.899 Other long term (current) drug therapy; Z79.01 Long term (current) use of anticoagulants; Z87.891 Personal history of nicotine dependence; Z91.041 Radiographic dye allergy status; Z88.6 Allergy status to analgesic agent; Z88.8 Allergy status to other drugs, medicaments and biological substances; Z79.1 Long term (current) use of non-steroidal anti-inflammatories (NSAID); W18.30XA Fall on same level, unspecified, initial encounter
CPT/HCPCS: 36415; 80053; 83605; 85025; 85610; 85730; 81001; 73502; 73700; 99285; 96374; 96372; J1170

== ENCOUNTER 2023-08-09 11:58 | Inpatient (IN) | payer MEDICARE, BC ==
--- NOTE | 2023-08-09 13:15 | ED ---
General Adult HPI - General Chief complaint: Recheck/Abnormal Lab/Rx Stated complaint: fall hip pain Time Seen by Provider: 08/09/23 12:38 Source: patient, RN notes reviewed, old records reviewed Mode of arrival: ambulatory Limitations: no limitations - History of Present Illness Initial comments: 68-year-old female presenting with hip pain. Patient was diagnosed with pubic rami fractures 2 days prior. She did not want to go to rehab at that time but states that she's not doing well at home. She had a minor fall today and is unable to ambulate. She denies head or neck trauma. Patient is agreeable with rehabilitation at this time. - Related Data Home Medications Medication Instructions Recorded Confirmed Clopidogrel [Plavix] 75 mg PO DAILY 07/07/19 06/21/23 DULoxetine HCL [Cymbalta] 60 mg PO DAILY 07/07/19 06/21/23 traZODone HCL [Desyrel] 100 mg PO BID 07/07/19 06/21/23 Insulin Glargine,Hum.rec.anlog 60 units SQ BID 06/09/21 06/21/23 [Lantus Solostar Pen] Insulin Lispro [humaLOG Kwikpen] See Protocol SQ 5XD PRN MDD 200 06/09/21 06/21/23 units Levothyroxine Sodium [Synthroid] 300 mcg PO DAILY 08/30/21 06/21/23 lisinopriL [Prinivil] 10 mg PO DAILY 08/30/21 06/21/23 metOLazone [Zaroxolyn] 5 mg PO DAILY 08/30/21 06/21/23 Metoclopramide [Reglan] 5 mg PO QID PRN 09/10/21 06/21/23 ALPRAZolam [Xanax] 2 mg PO TID 10/05/22 06/21/23 oxyCODONE HCL [oxyCODONE HCL (IR)] 10 mg PO TID PRN 10/05/22 06/21/23 Nystatin 100,000 Unit/gm Powd 1 applic TOPICAL BID 06/21/23 06/21/23 [Mycostatin Powder] diphenhydrAMINE HCL [Benadryl] 25 mg PO QID PRN 06/21/23 06/21/23 Previous Rx's Medication Instructions Recorded Ezetimibe [Zetia] 10 mg PO DAILY 30 Days #30 tab 01/30/20 INSULIN ASPART (NovoLOG) [NovoLOG 11 unit SQ AC-TID #10 ml 06/22/23 (formulary)] Primidone [Mysoline] 125 mg PO BID #60 tab 06/22/23 Propranolol [Inderal] 40 mg PO BID #60 tab 06/22/23 Allergies Allergy/AdvReac Type Severity Reaction Status Date / Time Iodinated Contrast Media Allergy Rash/Hives Verified 08/09/23 13:14 Iodine and Iodide Containing Allergy Rash/Hives Verified 08/09/23 13:14 Produc liraglutide [From Saxenda] AdvReac Unknown Nausea & Verified 08/09/23 13:14 Vomiting NSAIDS (Non-Steroidal AdvReac Unknown Nausea & Verified 08/09/23 13:14 Anti-Inflamma Vomiting aspirin AdvReac Nausea & Verified 08/09/23 13:14 Vomiting with high doses azithromycin AdvReac Vomiting Verified 08/09/23 13:14 naproxen [From Naprosyn] AdvReac Nausea & Verified 08/09/23 13:14 Vomiting Review of Systems ROS Statement: Those systems with pertinent positive or pertinent negative responses have been documented in the HPI. ROS Other: All systems not noted in ROS Statement are negative. Past Medical History Past Medical History: Blood Disorder, Cancer, Diabetes Mellitus, Deep Vein Thrombosis (DVT), GERD/Reflux, Hyperlipidemia, Hypertension, Myocardial Infarcti on ([place]), Neurologic Disorder, Osteoarthritis (OA), Pulmonary Embolus (PE), Thyroid Disorder Additional Past Medical History / Comment(s): Factor 5 leiden, DVT L leg, PE L lung, MIs x 5, palpitations, IDDM type II, neuropathy bilateral legs/feet, lymphedema L leg, charcot syndrome L foot, chronic low back pain, bilateral sciatica,hx bronchitis, anemia, hypothyroid, hx UTI, IBS, sinus problems, worsening tremors, "stomach shivering inside" plans to f/u with pcp. being seen for skin cancer removal. hx of pneumonia long ago Last Myocardial Infarction Date:: January 2020 History of Any Multi-Drug Resistant Organisms: None Reported Past Surgical History: Appendectomy, Cholecystectomy, Heart Catheterization With Stent, Hernia Repair, Hysterectomy, Tonsillectomy Additional Past Surgical History / Comment(s): Bilateral salpingectomy, bilateral oophorectomy, abdominal hernia surgeries, L foot fracture, bilateral cataract removals, epidural injections with last on 01/20/20 lumbar, LAST PROCEDURE 04/19/21 Past Anesthesia/Blood Transfusion Reactions: No Reported Reaction Additional Past Anesthesia/Blood Transfusion Reaction / Comment(s): Pt has received blood in past without reaction. Date of Last Stent Placement:: January 2020 Past Psychological History: Anxiety, Depression, Panic Disorder Smoking Status: Former smoker Past Alcohol Use History: None Reported Past Drug Use History: None Reported - Past Family History Mother Family Medical History: COPD Additional Family Medical History / Comment(s): Mother was a smoker. Father Family Medical History: Cancer Additional Family Medical History / Comment(s): Lung cancer. Father was a smoker. Son(s) Family Medical History: Deep Vein Thrombosis (DVT) General Exam Limitations: no limitations General appearance: alert, in no apparent distress Head exam: Present: atraumatic, normocephalic Eye exam: Present: normal appearance, PERRL ENT exam: Present: normal exam Neck exam: Present: normal inspection. Absent: tenderness, meningismus Respiratory exam: Present: normal lung sounds bilaterally. Absent: respiratory distress, wheezes Cardiovascular Exam: Present: regular rate, normal rhythm GI/Abdominal exam: Present: soft. Absent: distended, tenderness Neurological exam: Present: alert Psychiatric exam: Present: normal affect, normal mood Skin exam: Present: warm, dry, intact Course Vital Signs 08/09/23 13:10 Temperature 98.2 F Pulse Rate 79 Respiratory 17 Rate Blood Pressure 117/63 O2 Sat by Pulse 97 Oximetry Medical Decision Making - Medical Decision Making Was pt. sent in by a medical professional or institution ([facility], [employer], urgent care, hospital, or residential...) When possible be specific @ -No Did you speak to anyone other than the patient for history (EMS, parent, family, police, friend...)? What history was obtained from this source @ -No Did you review nursing and triage notes (agree or disagree)? Why? @ -I reviewed and agree with nursing and triage notes Were old charts reviewed (outside hosp., previous admission, EMS record, old EKG, old radiological studies, urgent care reports/EKG's, residential records)? Report findings @ -No old charts were reviewed Differential Diagnosis (chest pain, altered mental status, abdominal pain women, abdominal pain men, vaginal bleeding, weakness, fever, dyspnea, syncope, headache, dizziness, GI bleed, back pain, seizure, CVA, palpatations, mental health, musculoskeletal)? @ -[Fall EKG interpreted by me (3pts min.). @ -As above X-rays interpreted by me (1pt min.). @ -None done CT interpreted by me (1pt min.). @ -None done U/S interpreted by me (1pt. min.). @ -None done What testing was considered but not performed or refused? (CT, X-rays, U/S, labs)? Why? @ -None What meds were considered but not given or refused? Why? @ -None Did you discuss the management of the patient with other professionals (professionals i.e. , PA, [employer], lab, RT, psych nurse, social media campaign manager, cuff presser, teacher, sea air land officer, manager of case)? Give summary @ [facility] Was smoking cessation discussed for >3mins.? @ -No Was critical care preformed (if so, how long)? @ -No Were there social determinants of health that impacted care today? How? (Homelessness, low income, unemployed, alcoholism, drug addiction, transportation, low edu. Level, literacy, decrease access to med. care, [facility], rehab)? @ -No Was there de-escalation of care discussed even if they declined (Discuss DNR or withdrawal of care, Hospice)? DNR status @ -No What co-morbidities impacted this encounter? (DM, HTN, Smoking, COPD, CAD, Cancer, CVA, ARF, Chemo, Hep., AIDS, mental health diagnosis, sleep apnea, morbid obesity)? @ -None Was patient admitted / discharged? Hospital course, mention meds given and route, prescriptions, significant lab abnormalities, going to OR and other pertinent info. @ -68 yo female presents for reevaluation of pain after fall. Patient was diagnosed with pubic rami fracture 2 days ago. At that time the patient preferred to go home but she states that she's had increased pain. She presents today with plan to transition to rehabilitation. IV will be established and laboratory studies will be obtained these results are pending. The patient will be admitted to internal medicine with plan for placement. Orthopedics is placed on consult for evaluation. Undiagnosed new problem with uncertain prognosis? @ -No Drug Therapy requiring intensive monitoring for toxicity (Heparin, Nitro, Insulin, Cardizem)? @ -No Were any procedures done? @ -No Diagnosis/symptom? @ -pubic rami fracture Acute, or Chronic, or Acute on Chronic? @ Acute Uncomplicated (without systemic symptoms) or Complicated (systemic symptoms)? @ -default Side effects of treatment? @ -No Exacerbation, Progression, or Severe Exacerbation? @ -No Poses a threat to life or bodily function? How? (Chest pain, [place], [place], pneumonia, PE, COPD, DKA, ARF, appy, cholecystitis, CVA, Diverticulitis, Homicidal, Suici franny, threat to staff... and all critical care pts) @ -No Disposition Clinical Impression: Pubic ramus fracture Disposition: ADMITTED IP TO THIS HOSP Condition: Stable Is patient prescribed a controlled substance at d/c from ED?: No Referrals: Miguel Sy MD [Primary Care Provider] - 1-2 days Time of Disposition: 14:18
[2023-08-09] MEDS ORDERED: ACETAMINOPHEN TAB 325 MG TAB PO PRN (14:14)
[2023-08-09] MEDS ORDERED: NALOXONE 0.4 MG/ML 1 ML VIAL IV PRN (14:14)
[2023-08-09 14:22] LABS: Anisocytosis Slight; Basophils % (A) 0 %; Eosinophils # (A) 0.1 k/uL (0-0.7); Eosinophils % (A) 2 %; HCT 39.8 % (34.0-46.0); HGB 12.7 gm/dL (11.4-16.0); Hypochromasia Slight; Lymphocytes # (A) 1.7 k/uL (1.0-4.8); Lymphocytes % (A) 20 %; MCH 30.9 pg (25.0-35.0); MCHC 31.9 g/dL (31.0-37.0); MCV 96.9 fL (80.0-100.0); Monocytes # (A) 0.3 k/uL (0-1.0); Monocytes % (A) 4 %; Neutrophils # (A) 6.2 k/uL (1.3-7.7); Neutrophils % (A) 73 %; Platelet Count 180 k/uL (150-450); RBC 4.11 m/uL (3.80-5.40); WBC 8.5 k/uL (3.8-10.6)
[2023-08-09 14:42] LABS: ALT 19 U/L (4-34); AST 32 U/L (14-36); African American GFR (CKD) 49 (>60 ml/min/1.73 sqM); Albumin 3.9 g/dL (3.5-5.0); Alkaline Phosphatase 256 U/L (38-126); Anion Gap 13 mmol/L; Blood Urea Nitrogen 26 mg/dL (7-17); Calcium 8.5 mg/dL (8.4-10.2); Carbon Dioxide 24 mmol/L (22-30); Chloride 97 mmol/L (98-107); Glucose 218 mg/dL (74-99); Non-African American GFR(CKD) 42 (>60 ml/min/1.73 sqM); Potassium 4.4 mmol/L (3.5-5.1); Sodium 134 mmol/L (137-145); Total Bilirubin 0.6 mg/dL (0.2-1.3); Total Protein 7.9 g/dL (6.3-8.2)
[2023-08-09] MEDS: HYDROmorphone 0.5 MG/0.5 ML SYRINGE IVP PRN ×3 (14:58→21:46)
[2023-08-09] MEDS ORDERED: DEXTROSE 50% SYRINGE 50 ML IVP PRN ×2 (20:02)
[2023-08-09] MEDS: ALPRAZolam 0.5 MG TAB PO SCH (21:02)
[2023-08-09] MEDS: traZODone HCL 100 MG TAB PO SCH (21:02)
[2023-08-09 21:03] LABS: Glucose,Whole Blood 183 mg/dL (70-110)
[2023-08-09] MEDS: INSULIN ASPART (NovoLOG) 100 UNIT/ML VIAL SQ SCH (21:32)
[2023-08-09] MEDS: INSULIN DETEMIR (LEVEMIR) 100 UNIT/ML SYR SQ SCH (21:47)
--- NOTE | 2023-08-09 23:50 | P.HPIM ---
History of Present Illness H&P Date: 08/09/23 Chief Complaint: Left hip pain Patient is a 68-year-old female with a known history of diabetes type 2 insulin- dependent, hypothyroidism, iron deficiency anemia, factor V Leiden mutation, mixed anxiety and depressive disorder, essential tremor, hypertension, COPD, degeneration of lumbar intervertebral disc, chronic tremor and gait abnormality, coronary artery disease history of stent placement in June 2022, history of DVT, morbid obesity and severe back pain presents to ER with complaints of hip pain. Patient is somewhat poor historian. Patient's is at bedside. States that he had a fall about 2 days ago and was found to have pubic ramus fracture. Patient did not want to go to rehab and went home. She usually walks with a walker. Apparently she fell again today and unable to ambulate due to pain. Patient had a small laceration on the left lower extremity. Denies any numbness or tingling in the legs. Denies any head or neck trauma. Patient does have chronic anxiety and depression and is taking Xanax 2 mg 3 times daily and is also taking oxycodone 10 mg every 6 hourly. Patient is also on trazodone for sleep. X-ray of the hip/pelvis on 08/07/2022 showed no evidence for acute process. Mild hip osteoarthrosis. CT hip showed nondisplaced fracture of the left inferior and superior pubic rami. The femur appears intact. Laboratory data showed WBC 8.5 hemoglobin 12.7 platelets 180 Sodium 134 potassium 4.4 chloride 97 bicarb is 24 BUN 26 and creatinine 1.30 and blood sugar 218, AST 32 ALT 19 and alk phos 256. Albumin 3.9. Past Medical History Past Medical History: Blood Disorder, Cancer, Diabetes Mellitus, Deep Vein Thrombosis (DVT), GERD/Reflux, Hyperlipidemia, Hypertension, Myocardial Infarcti on ([place]), Neurologic Disorder, Osteoarthritis (OA), Pulmonary Embolus (PE), Thyroid Disorder Additional Past Medical History / Comment(s): Factor 5 leiden, DVT L leg, PE L lung, MIs x 5, palpitations, IDDM type II, neuropathy bilateral legs/feet, lymphedema L leg, charcot syndrome L foot, chronic low back pain, bilateral sciatica,hx bronchitis, anemia, hypothyroid, hx UTI, IBS, sinus problems, worsening tremors, "stomach shivering inside" plans to f/u with pcp. being seen for skin cancer removal. hx of pneumonia long ago Last Myocardial Infarction Date:: January 2020 History of Any Multi-Drug Resistant Organisms: None Reported Past Surgical History: Appendectomy, Cholecystectomy, Heart Catheterization With Stent, Hernia Repair, Hysterectomy, Tonsillectomy Additional Past Surgical History / Comment(s): Bilateral salpingectomy, bilateral oophorectomy, abdominal hernia surgeries, L foot fracture, bilateral cataract removals, epidural injections with last on 01/20/20 lumbar, LAST PROCEDURE 04/19/21 Past Anesthesia/Blood Transfusion Reactions: No Reported Reaction Additional Past Anesthesia/Blood Transfusion Reaction / Comment(s): Pt has received blood in past without reaction. Date of Last Stent Placement:: January 2020 Past Psychological History: Anxiety, Depression, Panic Disorder Smoking Status: Former smoker Past Alcohol Use History: None Reported Past Drug Use History: None Reported - Past Family History Mother Family Medical History: COPD Additional Family Medical History / Comment(s): Mother was a smoker. Father Family Medical History: Cancer Additional Family Medical History / Comment(s): Lung cancer. Father was a smoker. Son(s) Family Medical History: Deep Vein Thrombosis (DVT) Medications and Allergies Home Medications Medication Instructions Recorded Confirmed Type Clopidogrel [Plavix] 75 mg PO DAILY 07/07/19 08/09/23 History DULoxetine HCL [Cymbalta] 60 mg PO DAILY 07/07/19 08/09/23 History traZODone HCL [Desyrel] 100 mg PO BID 07/07/19 08/09/23 History Ezetimibe [Zetia] 10 mg PO DAILY 30 Days #30 tab 01/30/20 08/09/23 Rx Insulin Glargine,Hum.rec.anlog 60 units SQ BID 06/09/21 08/09/23 History [Lantus Solostar Pen] Insulin Lispro [humaLOG Kwikpen] See Protocol SQ 5XD PRN MDD 200 06/09/21 08/09/23 History units Levothyroxine Sodium [Synthroid] 300 mcg PO DAILY 08/30/21 08/09/23 History lisinopriL [Prinivil] 10 mg PO DAILY 08/30/21 08/09/23 History metOLazone [Zaroxolyn] 5 mg PO DAILY 08/30/21 08/09/23 History Metoclopramide [Reglan] 5 mg PO QID PRN 09/10/21 08/09/23 History ALPRAZolam [Xanax] 2 mg PO TID 10/05/22 08/09/23 History oxyCODONE HCL [oxyCODONE HCL (IR)] 10 mg PO TID PRN 10/05/22 08/09/23 History Nystatin 100,000 Unit/gm Powd 1 applic TOPICAL BID 06/21/23 08/09/23 History [Mycostatin Powder] diphenhydrAMINE HCL [Benadryl] 25 mg PO QID PRN 06/21/23 08/09/23 History Primidone [Mysoline] 125 mg PO BID #60 tab 06/22/23 08/09/23 Rx Propranolol [Inderal] 40 mg PO BID #60 tab 06/22/23 08/09/23 Rx Allergies Allergy/AdvReac Type Severity Reaction Status Date / Time Iodinated Contrast Media Allergy Rash/Hives Verified 08/09/23 14:58 Iodine and Iodide Containing Allergy Rash/Hives Verified 08/09/23 14:58 Produc liraglutide [From Saxenda] AdvReac Unknown Nausea & Verified 08/09/23 14:58 Vomiting NSAIDS (Non-Steroidal AdvReac Unknown Nausea & Verified 08/09/23 14:58 Anti-Inflamma Vomiting aspirin AdvReac Nausea & Verified 08/09/23 14:58 Vomiting with high doses azithromycin AdvReac Vomiting Verified 08/09/23 14:58 naproxen [From Naprosyn] AdvReac Nausea & Verified 08/09/23 14:58 Vomiting Physical Exam Vitals: Vital Signs Temp Pulse Pulse Resp BP BP Pulse Ox 08/09/23 18:11 98.5 F 71 18 133/66 95 08/09/23 17:55 98.2 F 62 18 102/62 97 08/09/23 14:56 98.3 F 67 18 97/60 95 08/09/23 13:10 98.2 F 79 17 117/63 97 Intake and Output 08/09/23 08/09/23 08/09/23 06:59 14:59 22:59 Other: # Voids 1 Weight 113.398 kg Results CBC & Chem 7: 08/09/23 13:57 08/09/23 13:57 Labs: Abnormal Lab Results - Last 24 Hours (Table) 08/09/23 08/09/23 Range/Units 13:57 13:57 RDW 16.0 H (11.5-15.5) % Sodium 134 L (137-145) mmol/L Chloride 97 L (98-107) mmol/L BUN 26 H (7-17) mg/dL Creatinine 1.30 H (0.52-1.04) mg/dL Glucose 218 H (74-99) mg/dL Alkaline Phosphatase 256 H (38-126) U/L Thrombosis Risk Factor Assmnt - DVT/VTE Prophylaxis DVT/VTE Prophylaxis: Pharmacologic Prophylaxis ordered Assessment and Plan Assessment: Nondisplaced fracture of the left inferior and superior pubic rami. Does complain of hip pain status post fall on 08/07/2022 and again on 08/09/2022. Hyperglycemia with uncontrolled diabetes type 2 Acute kidney injury likely prerenal. Creatinine 1.3 on admission. Baseline 0.8 Chronic pain and lumbar degenerative disc disease Anxiety and depressive disorder. Hypertension Hypothyroidism Coronary artery disease with history of stent placement in June 2021 Factor V Leiden mutation History of DVT Morbid obesity with BMI 41.6 GI and DVT prophylaxis with heparin subcu and Pepcid Plan: Patient will be continued on pain management with IV Dilaudid, PT OT was consulted Patient was started back on OxyContin and Xanax. Patient does take 2 mg of Xanax 3 times daily. Will start on tapering down to 1.5 mg 3 times daily and taper it off during the next 3 to 4 weeks. Continue with Cymbalta and trazodone. Start back on Levemir 60 units twice daily along with insulin sliding scale and titrate dose as needed. Patient will be continued on propranolol, Plavix and Zetia. Metolazone and losartan is on hold due to acute kidney injury. Continue with IV hydration and monitor renal function closely. Orthopedic surgery consult for further evaluation. Discussed with the patient and her at bedside in detail. Prognosis is guarded. Time with Patient: Greater than 30
[2023-08-10] MEDS: PRIMIDONE 250 MG TAB PO SCH ×3 (01:50→21:33)
[2023-08-10] MEDS: PROPRANOLOL 40 MG TAB PO SCH ×4 (01:50→21:33)
[2023-08-10] MEDS: HEPARIN SODIUM,PORCINE 5,000 UNIT/ML 1 ML VIAL SQ SCH ×4 (01:51→23:59)
[2023-08-10] MEDS: HYDROmorphone 0.5 MG/0.5 ML SYRINGE IVP PRN ×3 (01:55→12:28)
[2023-08-10] MEDS: LEVOTHYROXINE 100 MCG TAB PO SCH (06:18)
[2023-08-10] MEDS: INSULIN DETEMIR (LEVEMIR) 100 UNIT/ML SYR SQ SCH ×3 (06:18→21:32)
[2023-08-10 06:23] LABS: Glucose,Whole Blood 82 mg/dL (70-110)
[2023-08-10] MEDS: INSULIN ASPART (NovoLOG) 100 UNIT/ML VIAL SQ SCH ×4 (07:37→21:32)
[2023-08-10] MEDS: EZETIMIBE 10 MG TAB PO SCH (08:13)
[2023-08-10] MEDS: DULoxetine HCL 60 MG CAPSULE.DR PO SCH (08:13)
[2023-08-10] MEDS: ALPRAZolam 0.5 MG TAB PO SCH ×3 (08:13→21:32)
[2023-08-10] MEDS: CLOPIDOGREL 75 MG TAB PO SCH (08:13)
--- NOTE | 2023-08-10 08:21 | XR ---
EXAMINATION TYPE: XR Hip LT and AP Pelvis DATE OF EXAM: 08/09/2023 COMPARISON: Prior pelvic and left hip x-ray and CT 3 days earlier HISTORY: Fall injury TECHNIQUE: A single AP view of the pelvis is obtained. Two views of the left hip are obtained. FINDINGS: Evaluations suboptimal due to portable technique and patient's large body habitus. Acute ob lique oriented fracture through the lateral aspect of the left superior pelvic ramus is redemonstrate d. There is now some separation or step off versus nondisplaced fracture seen on prior CT. No new acu te displaced fracture clearly seen. Pubic symphysis is intact. Moderate narrowing and spurring of bot h hip joints is redemonstrated. No new or acute displaced fracture in the left hip. Some overlying a rterial vascular calcification is redemonstrated. IMPRESSION: There is no new acute displaced fracture in the pelvis or left hip. Prior acute nondispl aced fracture lateral aspect left superior pelvic ramus now shows displacement around 3 mm.
[2023-08-10] MEDS ORDERED: lisinopriL 10 MG TAB PO SCH (09:00)
[2023-08-10 10:54] LABS: Basophils # (A) 0.04 X 10*3/uL (0.00-0.10); Basophils % (A) 0.6 %; Eosinophils # (A) 0.19 X 10*3/uL (0.04-0.35); Eosinophils % (A) 2.8 %; HCT 35.9 % (39.6-50.0); Lymphocytes # (A) 2.28 X 10*3/uL (0.90-5.00); Lymphocytes % (A) 33.3 %; MCH 30.5 pg (27.0-32.0); MCHC 30.6 g/dL (32.0-37.0); MCV 99.4 FL (80.0-97.0); Mean Platelet Volume 11.4 FL (9.5-12.2); Monocytes # (A) 0.46 X 10*3/uL (0.20-1.00); Monocytes % (A) 6.7 %; NRBC Per 100 WBC 0 X 10*3/uL (0.00-0.01); Neutrophils # (A) 3.87 X 10*3/uL (1.80-7.70); Neutrophils % (A) 56.5 %; Platelet Count 167 X 10*3/uL (140-440); RBC 3.61 X 10*6/uL (4.40-5.60); RDW 16.5 % (11.5-14.5); WBC 6.85 X 10*3/uL (4.50-10.00)
[2023-08-10 11:11] LABS: Glucose,Whole Blood 172 mg/dL (70-110)
[2023-08-10 11:12] LABS: BUN/Creat Ratio 19.64 Ratio (12.00-20.00); Blood Urea Nitrogen 27.5 mg/dL (9.0-27.0); Calcium 8.5 mg/dL (8.7-10.3); Carbon Dioxide 28.1 mmol/L (21.6-31.8); Chloride 101 mmol/L (96-109); Glucose 94 mg/dL (70-110); Potassium 4.5 mmol/L (3.5-5.5); Sodium 138 mmol/L (135-145)
[2023-08-10] MEDS: traZODone HCL 100 MG TAB PO SCH ×2 (12:28→22:23)
[2023-08-10] MEDS: KETOROLAC 15 MG/ML 1 ML VIAL IVP PRN (16:27)
[2023-08-10 16:28] LABS: Glucose,Whole Blood 243 mg/dL (70-110)
--- NOTE | 2023-08-10 19:19 | P.PN ---
Subjective Progress Note Date: 08/10/23 Patient is a 68-year-old female with a known history of diabetes type 2 insulin- dependent, hypothyroidism, iron deficiency anemia, factor V Leiden mutation, mixed anxiety and depressive disorder, essential tremor, hypertension, COPD, degeneration of lumbar intervertebral disc, chronic tremor and gait abnormality, coronary artery disease history of stent placement in June 2022, history of DVT, morbid obesity and severe back pain presents to ER with complaints of hip pain. Patient is somewhat poor historian. Patient's is at bedside. States that he had a fall about 2 days ago and was found to have pubic ramus fracture. Patient did not want to go to rehab and went home. She usually walks with a walker. Apparently she fell again today and unable to ambulate due to pain. Patient had a small laceration on the left lower extremity. Denies any numbness or tingling in the legs. Denies any head or neck trauma. Patient does have chronic anxiety and depression and is taking Xanax 2 mg 3 times daily and is also taking oxycodone 10 mg every 6 hourly. Patient is also on trazodone for sleep. X-ray of the hip/pelvis on 08/07/2022 showed no evidence for acute process. Mild hip osteoarthrosis. CT hip showed nondisplaced fracture of the left inferior and superior pubic rami. The femur appears intact. Laboratory data showed WBC 8.5 hemoglobin 12.7 platelets 180 Sodium 134 potassium 4.4 chloride 97 bicarb is 24 BUN 26 and creatinine 1.30 and blood sugar 218, AST 32 ALT 19 and alk phos 256. Albumin 3.9. 08/10/2023 Patient is evaluated today resting in bed. Continues to report pain about 7/10 to the pelvic region. Pending PT evaluation and will need KARINE. No other acute complaints. Pending orthopedics consultation. Blood glucose 243. REVIEW OF SYSTEMS: CONSTITUTIONAL: No fever, no malaise, no fatigue. HEENT: No recent visual problems or hearing problems. Denied any sore throat. CARDIOVASCULAR: No chest pain, orthopnea, PND, no palpitations, no syncope. PULMONARY: No shortness of breath, no cough, no hemoptysis. GASTROINTESTINAL: No diarrhea, no nausea, no vomiting, no abdominal pain. NEUROLOGICAL: No headaches, no weakness, no numbness. PHYSICAL EXAMINATION: GENERAL: The patient is alert and oriented x3, not in any acute distress. Well developed, well nourished. HEENT: Pupils are round and equally reacting to light. EOMI. No scleral icterus. No conjunctival pallor. Normocephalic, atraumatic. No pharyngeal erythema. No thyromegaly. CARDIOVASCULAR: S1 and S2 present. No murmurs, rubs, or gallops. PULMONARY: Chest is clear to auscultation, no wheezing or crackles. ABDOMEN: Soft, nontender, nondistended, normoactive bowel sounds. No palpable organomegaly. MUSCULOSKELETAL: No joint swelling or deformity. EXTREMITIES: No cyanosis, clubbing, or pedal edema. NEUROLOGICAL: Gross neurological examination did not reveal any focal deficits. SKIN: No rashes. Assessment Nondisplaced fracture of the left inferior and superior pubic rami. Does complain of hip pain status post fall on 08/07/2022 and again on 08/09/2022. Hyperglycemia with uncontrolled diabetes type 2 Acute kidney injury likely prerenal. Creatinine 1.3 on admission. Baseline 0.8 Oral Thrush Chronic pain and lumbar degenerative disc disease Anxiety and depressive disorder. Hypertension Hypothyroidism Coronary artery disease with history of stent placement in June 2021 Factor V Leiden mutation History of DVT Morbid obesity with BMI 41.6 GI and DVT prophylaxis with heparin subcu and Pepcid Plan: Patient will be continued on pain management with IV Dilaudid, PT OT was consulted Patient was started back on OxyContin and Xanax. Patient does take 2 mg of Xanax 3 times daily. Will start on tapering down to 1.5 mg 3 times daily and taper it off during the next 3 to 4 weeks. Continue with Cymbalta and trazodone. Start back on Levemir 60 units twice daily along with insulin sliding scale and titrate dose as needed. Patient will be continued on propranolol, Plavix and Zetia. Metolazone and losartan is on hold due to acute kidney injury. Continue with IV hydration and monitor renal function closely. Orthopedic surgery consult for further evaluation. Will need KARINE on discharge. Started on oral nystatin swish and swallow for the oral thrush. The impression and plan of care has been dictated by Ebonie Mark, Nurse Practitioner as directed. Dr. Pankaj MD I have performed a history and physical examination and medical decision making of this patient, discussed the same with the dictator, and agree with the di ctators assessment and plan as written, documented as a scribe. Based on total visit time, I have performed more than 50% of this visit. Objective - Vital Signs Vital signs: Vital Signs Temp 98.2 F 08/10/23 06:54 Pulse 63 08/10/23 06:54 Resp 18 08/10/23 06:54 BP 97/62 08/10/23 06:54 Pulse Ox 94 L 08/10/23 06:54 FiO2 Intake & Output 08/09/23 08/10/23 08/10/23 18:59 06:59 18:59 Weight 113.398 kg 113.398 kg Other: Voiding Method Bedpan # Voids 1 4 - Labs CBC & Chem 7: 08/10/23 05:50 08/10/23 05:50 Labs: Abnormal Lab Results - Last 24 Hours (Table) 08/09/23 08/09/23 08/09/23 Range/Units 13:57 13:57 20:59 RDW 16.0 H (11.5-15.5) % Sodium 134 L (137-145) mmol/L Chloride 97 L (98-107) mmol/L BUN 26 H (7-17) mg/dL Creatinine 1.30 H (0.52-1.04) mg/dL Glucose 218 H (74-99) mg/dL POC Glucose (mg/dL) 183 H (70-110) mg/dL Alkaline Phosphatase 256 H (38-126) U/L Assessment and Plan Time with Patient: Less than 30
[2023-08-10] MEDS: SODIUM CHLORIDE 0.9% 1,000 ML IV SCH (19:36)
[2023-08-10 20:53] LABS: Glucose,Whole Blood 233 mg/dL (70-110)
[2023-08-10] MEDS: NYSTATIN 100,000 UNIT/ML SUSP 500,000 UNIT/5 ML CUP PO SCH ×2 (21:36→22:54)
[2023-08-11] MEDS: KETOROLAC 15 MG/ML 1 ML VIAL IVP PRN ×4 (03:58→23:30)
[2023-08-11 05:47] LABS: Glucose,Whole Blood 185 mg/dL (70-110)
[2023-08-11] MEDS: INSULIN ASPART (NovoLOG) 100 UNIT/ML VIAL SQ SCH ×5 (06:07→21:12)
[2023-08-11] MEDS: LEVOTHYROXINE 100 MCG TAB PO SCH (06:07)
[2023-08-11] MEDS: INSULIN DETEMIR (LEVEMIR) 100 UNIT/ML SYR SQ SCH ×2 (06:07→21:13)
[2023-08-11] MEDS: HEPARIN SODIUM,PORCINE 5,000 UNIT/ML 1 ML VIAL SQ SCH ×3 (08:50→22:54)
[2023-08-11] MEDS: DULoxetine HCL 60 MG CAPSULE.DR PO SCH (08:50)
[2023-08-11] MEDS: EZETIMIBE 10 MG TAB PO SCH (08:50)
[2023-08-11] MEDS: CLOPIDOGREL 75 MG TAB PO SCH (08:50)
[2023-08-11] MEDS: traZODone HCL 100 MG TAB PO SCH ×2 (08:52→21:13)
[2023-08-11] MEDS: PROPRANOLOL 40 MG TAB PO SCH ×2 (08:52→20:06)
[2023-08-11 09:57] LABS: BUN/Creat Ratio 23.14 Ratio (12.00-20.00); Blood Urea Nitrogen 32.4 mg/dL (9.0-27.0); Calcium 8.1 mg/dL (8.7-10.3); Carbon Dioxide 24.9 mmol/L (21.6-31.8); Chloride 100 mmol/L (96-109); Glucose 167 mg/dL (70-110); Potassium 4.7 mmol/L (3.5-5.5); Sodium 135 mmol/L (135-145)
--- NOTE | 2023-08-11 10:08 | P.CNOR ---
History of Present Illness - HPI Consult date: 08/11/23 History of present illness: This is a 68-year-old female who is admitted for pubic rami fracture after a fall at home earlier this week. Patient states that she was evaluated in the emergency room earlier this week and was diagnosed with pubic rami fracture and discharged home. Patient states that her left knee buckled and she had another fall and presented back to the emergency room. Patient is seen and evaluated at bedside today. Patient admits to pain in the left groin and mild pain in the left lower leg. Patient states that she lives at home with her , but is in need of ECF placement. Patient denies any fever/chills, numbness, weakness, tingling, abdominal pain, shortness of breath or chest pain. Patient's past medical history is significant for diabetes mellitus, history of DVT, GERD, hyperlipidemia, hypertension, history of PE, factor V Leiden, history of myocardial infarction and hypothyroidism. Review of Systems See HPI. Past Medical History Past Medical History: Blood Disorder, Cancer, Diabetes Mellitus, Deep Vein Thrombosis (DVT), GERD/Reflux, Hyperlipidemia, Hypertension, Myocardial Infarction (IA), Neurologic Disorder, Osteoarthritis (OA), Pulmonary Embolus (PE), Thyroid Disorder Additional Past Medical History / Comment(s): Factor 5 leiden, DVT L leg, PE L lung, MIs x 5, palpitations, IDDM type II, neuropathy bilateral legs/feet, lymphedema L leg, charcot syndrome L foot, chronic low back pain, bilateral sciatica,hx bronchitis, anemia, hypothyroid, hx UTI, IBS, sinus problems, worsening tremors, "stomach shivering inside" plans to f/u with pcp. being seen for skin cancer removal. hx of pneumonia long ago Last Myocardial Infarction Date:: January 2020 History of Any Multi-Drug Resistant Organisms: None Reported Past Surgical History: Appendectomy, Cholecystectomy, Heart Catheterization With Stent, Hernia Repair, Hysterectomy, Tonsillectomy Additional Past Surgical History / Comment(s): Bilateral salpingectomy, bilateral oophorectomy, abdominal hernia surgeries, L foot fracture, bilateral cataract removals, epidural injections with last on 01/20/20 lumbar, LAST PROCEDURE 04/19/21 Past Anesthesia/Blood Transfusion Reactions: No Reported Reaction Additional Past Anesthesia/Blood Transfusion Reaction / Comm: Pt has received blood in past without reaction. Date of Last Stent Placement:: January 2020 Past Psychological History: Anxiety, Depression, Panic Disorder Smoking Status: Former smoker Past Alcohol Use History: None Reported Past Drug Use History: None Reported - Past Family History Mother Family Medical History: COPD Additional Family Medical History / Comment(s): Mother was a smoker. Father Family Medical History: Cancer Additional Family Medical History / Comment(s): Lung cancer. Father was a smoker. Son(s) Family Medical History: Deep Vein Thrombosis (DVT) Medications and Allergies Home Medications Medication Instructions Recorded Confirmed Type Clopidogrel [Plavix] 75 mg PO DAILY 07/07/19 08/09/23 History DULoxetine HCL [Cymbalta] 60 mg PO DAILY 07/07/19 08/09/23 History traZODone HCL [Desyrel] 100 mg PO BID 07/07/19 08/09/23 History Ezetimibe [Zetia] 10 mg PO DAILY 30 Days #30 tab 01/30/20 08/09/23 Rx Insulin Glargine,Hum.rec.anlog 60 units SQ BID 06/09/21 08/09/23 History [Lantus Solostar Pen] Insulin Lispro [humaLOG Kwikpen] See Protocol SQ 5XD PRN MDD 200 06/09/21 08/09/23 History units Levothyroxine Sodium [Synthroid] 300 mcg PO DAILY 08/30/21 08/09/23 History lisinopriL [Prinivil] 10 mg PO DAILY 08/30/21 08/09/23 History metOLazone [Zaroxolyn] 5 mg PO DAILY 08/30/21 08/09/23 History Metoclopramide [Reglan] 5 mg PO QID PRN 09/10/21 08/09/23 History ALPRAZolam [Xanax] 2 mg PO TID 10/05/22 08/09/23 History oxyCODONE HCL [oxyCODONE HCL (IR)] 10 mg PO TID PRN 10/05/22 08/09/23 History Nystatin 100,000 Unit/gm Powd 1 applic TOPICAL BID 06/21/23 08/09/23 History [Mycostatin Powder] diphenhydrAMINE HCL [Benadryl] 25 mg PO QID PRN 06/21/23 08/09/23 History Primidone [Mysoline] 125 mg PO BID #60 tab 06/22/23 08/09/23 Rx Propranolol [Inderal] 40 mg PO BID #60 tab 06/22/23 08/09/23 Rx Allergies Allergy/AdvReac Type Severity Reaction Status Date / Time Iodinated Contrast Media Allergy Rash/Hives Verified 08/09/23 14:58 Iodine and Iodide Containing Allergy Rash/Hives Verified 08/09/23 14:58 Produc liraglutide [From Saxenda] AdvReac Unknown Nausea & Verified 08/09/23 14:58 Vomiting NSAIDS (Non-Steroidal AdvReac Unknown Nausea & Verified 08/09/23 14:58 Anti-Inflamma Vomiting aspirin AdvReac Nausea & Verified 08/09/23 14:58 Vomiting with high doses azithromycin AdvReac Vomiting Verified 08/09/23 14:58 naproxen [From Naprosyn] AdvReac Nausea & Verified 08/09/23 14:58 Vomiting Physical Examination On exam patient is resting comfortably in bed in no acute distress. Patient is alert and oriented 3. Left lower extremity: Patient has pain in the groin with attempted motion of the left hip. There is tenderness to palpation over the proximal medial aspect of the lower leg. Patient has swelling of the proximal lower leg. There is an abrasion with mild surrounding erythema to the distal lower leg. Patient has full range of motion of the left foot and ankle without pain or difficulty. Calf is soft and nontender to palpation. Sensation intact. Neurovascular status and circulatory status are intact. Results X-rays of the left hip and pelvis reveal mildly displaced left superior and inferior pubic rami fractures. - Labs Labs: Abnormal Lab Results - Last 24 Hours (Table) 08/10/23 08/10/23 08/10/23 Range/Units 05:50 05:50 05:50 RBC 3.61 L (4.40-5.60) X 10*6/uL Hgb 11.0 L (13.0-17.0) g/dL Hct 35.9 L (39.6-50.0) % MCV 99.4 H (80.0-97.0) FL MCHC 30.6 L (32.0-37.0) g/dL RDW 16.5 H (11.5-14.5) % BUN 27.5 H (9.0-27.0) mg/dL Est GFR (CKD-EPI) 54 L (>=60) POC Glucose (mg/dL) (70-110) mg/dL Hemoglobin A1c 9.2 H (<=6.0) % Calcium 8.5 L (8.7-10.3) mg/dL TSH 33.300 H (0.350-5.500) UIU/ML Free (T4) Reflex I 0.55 L (0.80-1.80) ng/dL 08/10/23 08/10/23 08/10/23 Range/Units 11:10 16:27 20:51 RBC (4.40-5.60) X 10*6/uL Hgb (13.0-17.0) g/dL Hct (39.6-50.0) % MCV (80.0-97.0) FL MCHC (32.0-37.0) g/dL RDW (11.5-14.5) % BUN (9.0-27.0) mg/dL Est GFR (CKD-EPI) (>=60) POC Glucose (mg/dL) 172 H 243 H 233 H (70-110) mg/dL Hemoglobin A1c (<=6.0) % Calcium (8.7-10.3) mg/dL TSH (0.350-5.500) UIU/ML Free (T4) Reflex I (0.80-1.80) ng/dL 08/11/23 Range/Units 05:46 RBC (4.40-5.60) X 10*6/uL Hgb (13.0-17.0) g/dL Hct (39.6-50.0) % MCV (80.0-97.0) FL MCHC (32.0-37.0) g/dL RDW (11.5-14.5) % BUN (9.0-27.0) mg/dL Est GFR (CKD-EPI) (>=60) POC Glucose (mg/dL) 185 H (70-110) mg/dL Hemoglobin A1c (<=6.0) % Calcium (8.7-10.3) mg/dL TSH (0.350-5.500) UIU/ML Free (T4) Reflex I (0.80-1.80) ng/dL H & H 08/09/23 08/10/23 Range/Units 13:57 05:50 Hgb 12.7 11.0 L (11.4-16.0) gm/dL Hct 39.8 35.9 L (34.0-46.0) % Result Diagrams: 08/10/23 05:50 08/11/23 06:35 Assessment and Plan (1) Inferior pubic ramus fracture Current Visit: Yes Status: Acute Code(s): S32.599A - OTH FRACTURE OF UNSP PUBIS, INIT ENCNTR FOR CLOSED FRACTURE SNOMED Code(s): 513452605 (2) Fracture of superior pubic ramus Current Visit: Yes Status: Acute Code(s): S32.519A - FRACTURE OF SUPERIOR RIM OF UNSP PUBIS, INIT FOR CLOS FX SNOMED Code(s): 001951001 (3) Falls Current Visit: No Status: Acute Code(s): W19.XXXA - UNSPECIFIED FALL, INITIAL ENCOUNTER SNOMED Code(s): 6337496 Plan: 1. Recommend nonweightbearing to the left lower extremity. 2. X-rays of the left tibia/fibular ordered. 3. Continue pain control. 4. Patient is awaiting ECF placement. We will continue to follow.
--- NOTE | 2023-08-11 10:42 | XR ---
EXAMINATION TYPE: XR tibia fibula 2V LT DATE OF EXAM: 08/11/2023 Comparison: 08/25/2022 knee radiograph Clinical History: 68-year-old female pain Findings: Soft tissue calcifications medially and anteriorly appears to have been present back to 08/25/2022, po ssible chronic venous stasis change or sequela of prior injury. There is osteopenia. No acute fractur e. Impression: Chronic appearing anteromedial soft tissue calcifications, possible chronic venous stasis change or s equela of prior injury. Osteopenia. No acute osseous abnormality seen.
[2023-08-11] MEDS: ALPRAZolam 0.5 MG TAB PO SCH ×4 (10:54→22:54)
[2023-08-11] MEDS: PRIMIDONE 250 MG TAB PO SCH ×2 (10:55→21:13)
[2023-08-11] MEDS: NYSTATIN 100,000 UNIT/ML SUSP 500,000 UNIT/5 ML CUP PO SCH ×4 (10:56→21:13)
[2023-08-11 11:23] LABS: Glucose,Whole Blood 267 mg/dL (70-110)
[2023-08-11 12:52] VITALS: BMI 41.5
--- NOTE | 2023-08-11 16:03 | P.PN ---
Subjective Progress Note Date: 08/11/23 Patient is a 68-year-old female with a known history of diabetes type 2 insulin- dependent, hypothyroidism, iron deficiency anemia, factor V Leiden mutation, mixed anxiety and depressive disorder, essential tremor, hypertension, COPD, degeneration of lumbar intervertebral disc, chronic tremor and gait abnormality, coronary artery disease history of stent placement in June 2022, history of DVT, morbid obesity and severe back pain presents to ER with complaints of hip pain. Patient is somewhat poor historian. Patient's is at bedside. States that he had a fall about 2 days ago and was found to have pubic ramus fracture. Patient did not want to go to rehab and went home. She usually walks with a walker. Apparently she fell again today and unable to ambulate due to pain. Patient had a small laceration on the left lower extremity. Denies any numbness or tingling in the legs. Denies any head or neck trauma. Patient does have chronic anxiety and depression and is taking Xanax 2 mg 3 times daily and is also taking oxycodone 10 mg every 6 hourly. Patient is also on trazodone for sleep. X-ray of the hip/pelvis on 08/07/2022 showed no evidence for acute process. Mild hip osteoarthrosis. CT hip showed nondisplaced fracture of the left inferior and superior pubic rami. The femur appears intact. Laboratory data showed WBC 8.5 hemoglobin 12.7 platelets 180 Sodium 134 potassium 4.4 chloride 97 bicarb is 24 BUN 26 and creatinine 1.30 and blood sugar 218, AST 32 ALT 19 and alk phos 256. Albumin 3.9. 08/10/2023 Patient is evaluated today resting in bed. Continues to report pain about 7/10 to the pelvic region. Pending PT evaluation and will need KARINE. No other acute complaints. Pending orthopedics consultation. Blood glucose 243. 08/11/2023 Patient is evaluated on the medical floor. Currently she is bedrest and NWB and patient will need ECF on discharge. Tib/Fib xray on the left completed showing no acute fracture. Labs today showing sodium 135, potassium 4.7, BUN 32, c reatinine 1.4. Glucose in the 200s. A1C 9.2. Patient given fluid bolus and continued on normal saline. Blood pressure improving. REVIEW OF SYSTEMS: CONSTITUTIONAL: No fever, no malaise, no fatigue. HEENT: No recent visual problems or hearing problems. Denied any sore throat. CARDIOVASCULAR: No chest pain, orthopnea, PND, no palpitations, no syncope. PULMONARY: No shortness of breath, no cough, no hemoptysis. GASTROINTESTINAL: No diarrhea, no nausea, no vomiting, no abdominal pain. NEUROLOGICAL: No headaches, no weakness, no numbness. PHYSICAL EXAMINATION: GENERAL: The patient is alert and oriented x3, not in any acute distress. Well developed, well nourished. HEENT: Pupils are round and equally reacting to light. EOMI. No scleral icterus. No conjunctival pallor. Normocephalic, atraumatic. No pharyngeal erythema. No thyromegaly. CARDIOVASCULAR: S1 and S2 present. No murmurs, rubs, or gallops. PULMONARY: Chest is clear to auscultation, no wheezing or crackles. ABDOMEN: Soft, nontender, nondistended, normoactive bowel sounds. No palpable organomegaly. MUSCULOSKELETAL: No joint swelling or deformity. EXTREMITIES: No cyanosis, clubbing, or pedal edema. NEUROLOGICAL: Gross neurological examination did not reveal any focal deficits. SKIN: No rashes. Assessment Nondisplaced fracture of the left inferior and superior pubic rami. Does complain of hip pain status post fall on 08/07/2022 and again on 08/09/2022. Hyperglycemia with uncontrolled diabetes type 2 Acute kidney injury likely prerenal. Creatinine 1.3 on admission. Baseline 0.8 Oral Thrush Chronic pain and lumbar degenerative disc disease Anxiety and depressive disorder. Hypertension Hypothyroidism Coronary artery disease with history of stent placement in June 2021 Factor V Leiden mutation History of DVT Morbid obesity with BMI 41.6 GI and DVT prophylaxis with heparin subcu and Pepcid Plan: Patient will be continued on pain management with IV Dilaudid, PT OT was consulted Patient is currently non weight bearing. Patient was started back on OxyContin and Xanax. Patient does take 2 mg of Xanax 3 times daily. Will start on tapering down to 1.5 mg 3 times daily and taper it off during the next 3 to 4 weeks. Continue with Cymbalta and trazodone. Start back on Levemir 60 units twice daily along with insulin sliding scale and titrate dose as needed. Patient will be continued on propranolol, Plavix and Zetia. Metolazone and losartan is on hold due to acute kidney injury. Continue with IV hydration and monitor renal function closely. Orthopedic surgery consult for further evaluation. Will need KARINE on discharge. Started on oral nystatin swish and swallow for the oral thrush. The impression and plan of care has been dictated by Ebonie Mark, Nurse Practitioner as directed. Dr. Pankaj MD I have performed a history and physical examination and medical decision making of this patient, discussed the same with the dictator, and agree with the dictators assessment and plan as written, documented as a scribe. Based on total visit time, I have performed more than 50% of this visit. Objective - Vital Signs Vital signs: Vital Signs Temp 97.7 F 08/11/23 07:50 Pulse 75 08/11/23 10:50 Resp 18 08/11/23 08:58 BP 105/62 08/11/23 10:50 Pulse Ox 96 08/11/23 07:50 FiO2 Intake & Output 08/10/23 08/11/23 08/11/23 18:59 06:59 18:59 Intake Total 1350 Output Total 200 Balance 1350 -200 Weight 113.398 kg Intake: Intake, IV Titration 600 Amount Sodium Chloride 0.9% 1, 600 000 ml @ 75 mls/hr IV . [id number] [facility] Rx#:[id number] Oral 750 Output: Urine 200 Other: Voiding Method Bedpan External Catheter External Catheter # Voids 3 1 - Labs CBC & Chem 7: 08/10/23 05:50 08/11/23 06:35 Labs: Abnormal Lab Results - Last 24 Hours (Table) 08/10/23 08/10/23 08/11/23 Range/Units 16:27 20:51 05:46 BUN (9.0-27.0) mg/dL Est GFR (CKD-EPI) (>=60) BUN/Creatinine Ratio (12.00-20.00) Ratio Glucose (70-110) mg/dL POC Glucose (mg/dL) 243 H 233 H 185 H (70-110) mg/dL Calcium (8.7-10.3) mg/dL 08/11/23 08/11/23 Range/Units 06:35 11:22 BUN 32.4 H (9.0-27.0) mg/dL Est GFR (CKD-EPI) 54 L (>=60) BUN/Creatinine Ratio 23.14 H (12.00-20.00) Ratio Glucose 167 H (70-110) mg/dL POC Glucose (mg/dL) 267 H (70-110) mg/dL Calcium 8.1 L (8.7-10.3) mg/dL Assessment and Plan Time with Patient: Less than 30
[2023-08-11 16:29] LABS: Glucose,Whole Blood 274 mg/dL (70-110)
[2023-08-11 20:03] LABS: Glucose,Whole Blood 263 mg/dL (70-110)
[2023-08-11] MEDS: SODIUM CHLORIDE 0.9% 1,000 ML IV SCH ×2 (21:14)
[2023-08-12] MEDS: SODIUM CHLORIDE 0.9% 1,000 ML IV SCH (02:55)
[2023-08-12 05:40] LABS: Glucose,Whole Blood 165 mg/dL (70-110)
[2023-08-12] MEDS: KETOROLAC 15 MG/ML 1 ML VIAL IVP PRN ×3 (06:07→22:07)
[2023-08-12] MEDS: LEVOTHYROXINE 100 MCG TAB PO SCH (06:07)
[2023-08-12] MEDS: INSULIN ASPART (NovoLOG) 100 UNIT/ML VIAL SQ SCH ×7 (06:08→21:08)
[2023-08-12] MEDS: INSULIN DETEMIR (LEVEMIR) 100 UNIT/ML SYR SQ SCH ×2 (06:08→21:08)
[2023-08-12] MEDS: PROPRANOLOL 40 MG TAB PO SCH ×2 (08:30→21:09)
[2023-08-12] MEDS: traZODone HCL 100 MG TAB PO SCH ×2 (08:31→21:09)
[2023-08-12] MEDS: PRIMIDONE 250 MG TAB PO SCH ×2 (08:31→21:08)
[2023-08-12] MEDS: DULoxetine HCL 60 MG CAPSULE.DR PO SCH (08:32)
[2023-08-12] MEDS: CLOPIDOGREL 75 MG TAB PO SCH (08:32)
[2023-08-12] MEDS: EZETIMIBE 10 MG TAB PO SCH (08:32)
[2023-08-12] MEDS: NYSTATIN 100,000 UNIT/ML SUSP 500,000 UNIT/5 ML CUP PO SCH ×6 (08:35→21:52)
[2023-08-12] MEDS: HEPARIN SODIUM,PORCINE 5,000 UNIT/ML 1 ML VIAL SQ SCH ×2 (08:35→15:24)
[2023-08-12] MEDS: ALPRAZolam 0.5 MG TAB PO SCH ×3 (08:35→21:09)
--- NOTE | 2023-08-12 09:45 | XR ---
EXAMINATION TYPE: XR chest 2V DATE OF EXAM: 08/12/2023 COMPARISON: 06/21/2023 HISTORY: 68-year-old female hypoxia TECHNIQUE: AP and lateral views FINDINGS: Heart borderline enlarged. Coronary stent noted. Interstitial prominence is unchanged. No pleural eff usion or william consolidation. IMPRESSION: Borderline cardiomegaly. Interstitial prominence is unchanged. Correlate to exclude mild pulmonary va scular congestion.
[2023-08-12 09:50] LABS: BUN/Creat Ratio 22.69 Ratio (12.00-20.00); Blood Urea Nitrogen 29.5 mg/dL (9.0-27.0); Calcium 8.1 mg/dL (8.7-10.3); Carbon Dioxide 24.3 mmol/L (21.6-31.8); Chloride 102 mmol/L (96-109); Glucose 164 mg/dL (70-110); Sodium 135 mmol/L (135-145)
--- NOTE | 2023-08-12 10:47 | P.PN ---
Subjective Progress Note Date: 08/12/23 This is a 68-year-old female who is admitted for pubic rami fractures after a fall at home earlier this week. Patient is seen and evaluated at bedside today and states that her pain is controlled. Patient denies any new complaints today. Objective - Vital Signs Vital signs: Vital Signs Temp 97.6 F 08/12/23 07:22 Pulse 76 08/12/23 07:22 Resp 18 08/12/23 07:22 BP 101/61 08/12/23 07:22 Pulse Ox 90 L 08/12/23 07:22 FiO2 Intake & Output 08/11/23 08/12/23 08/12/23 18:59 06:59 18:59 Output Total 300 Balance -300 Weight 113.398 kg Output: Urine 300 Other: Voiding Method External Catheter External Catheter # Voids 1 - Exam On exam patient is resting comfortably in bed in no acute distress. Patient is alert and oriented 3. Left lower extremity: Patient has pain in the groin with attempted motion of the left hip. There is tenderness to palpation over the proximal medial aspect of the lower leg. Patient has swelling of the proximal lower leg. There is an abrasion with mild surrounding erythema to the distal lower leg. Patient has full range of motion of the left foot and ankle without pain or difficulty. Patient is able to flex and extend the left knee with some limitation secondary to pain. Calf is soft and nontender to palpation. Sensation intact. Neurovascular status and circulatory status are intact. - Labs CBC & Chem 7: 08/10/23 05:50 08/12/23 05:59 Labs: Abnormal Lab Results - Last 24 Hours (Table) 08/11/23 08/11/23 08/11/23 Range/Units 11:22 16:28 20:01 BUN (9.0-27.0) mg/dL Est GFR (CKD-EPI) (>=60) BUN/Creatinine Ratio (12.00-20.00) Ratio Glucose (70-110) mg/dL POC Glucose (mg/dL) 267 H 274 H 263 H (70-110) mg/dL Calcium (8.7-10.3) mg/dL 08/12/23 08/12/23 Range/Units 05:39 05:59 BUN 29.5 H (9.0-27.0) mg/dL Est GFR (CKD-EPI) 59 L (>=60) BUN/Creatinine Ratio 22.69 H (12.00-20.00) Ratio Glucose 164 H (70-110) mg/dL POC Glucose (mg/dL) 165 H (70-110) mg/dL Calcium 8.1 L (8.7-10.3) mg/dL Assessment and Plan (1) Inferior pubic ramus fracture Current Visit: Yes Status: Acute Code(s): S32.599A - OTH FRACTURE OF UNSP PUBIS, INIT ENCNTR FOR CLOSED FRACTURE SNOMED Code(s): 915889188 (2) Fracture of superior pubic ramus Current Visit: Yes Status: Acute Code(s): S32.519A - FRACTURE OF SUPERIOR RIM OF UNSP PUBIS, INIT FOR CLOS FX SNOMED Code(s): 740627928 (3) Falls Current Visit: No Status: Acute Code(s): W19.XXXA - UNSPECIFIED FALL, INITIAL ENCOUNTER SNOMED Code(s): 1991319 Plan: 1. Recommend nonweightbearing to the left lower extremity. 2. X-rays of the left hip and pelvis reveal mildly displaced left superior and inferior pubic rami fractures. X-rays of the left tibia/fibula are reviewed and are negative. 3. Continue pain control. 4. Patient is awaiting ECF placement. We will continue to follow as needed.
[2023-08-12] MEDS: FUROSEMIDE 10 MG/ML 2 ML VIAL IV SCH (11:17)
[2023-08-12 11:29] LABS: Glucose,Whole Blood 228 mg/dL (70-110)
[2023-08-12] MEDS ORDERED: HYDROmorphone 1 MG/ML 1 ML SYRINGE IVP STA (14:37)
--- NOTE | 2023-08-12 14:39 | P.PN ---
Subjective Progress Note Date: 08/12/23 Patient is a 68-year-old female with a known history of diabetes type 2 insulin- dependent, hypothyroidism, iron deficiency anemia, factor V Leiden mutation, mixed anxiety and depressive disorder, essential tremor, hypertension, COPD, degeneration of lumbar intervertebral disc, chronic tremor and gait abnormality, coronary artery disease history of stent placement in June 2022, history of DVT, morbid obesity and severe back pain presents to ER with complaints of hip pain. Patient is somewhat poor historian. Patient's is at bedside. States that he had a fall about 2 days ago and was found to have pubic ramus fracture. Patient did not want to go to rehab and went home. She usually walks with a walker. Apparently she fell again today and unable to ambulate due to pain. Patient had a small laceration on the left lower extremity. Denies any numbness or tingling in the legs. Denies any head or neck trauma. Patient does have chronic anxiety and depression and is taking Xanax 2 mg 3 times daily and is also taking oxycodone 10 mg every 6 hourly. Patient is also on trazodone for sleep. X-ray of the hip/pelvis on 08/07/2022 showed no evidence for acute process. Mild hip osteoarthrosis. CT hip showed nondisplaced fracture of the left inferior and superior pubic rami. The femur appears intact. Laboratory data showed WBC 8.5 hemoglobin 12.7 platelets 180 Sodium 134 potassium 4.4 chloride 97 bicarb is 24 BUN 26 and creatinine 1.30 and blood sugar 218, AST 32 ALT 19 and alk phos 256. Albumin 3.9. 08/10/2023 Patient is evaluated today resting in bed. Continues to report pain about 7/10 to the pelvic region. Pending PT evaluation and will need KARINE. No other acute complaints. Pending orthopedics consultation. Blood glucose 243. 08/11/2023 Patient is evaluated on the medical floor. Currently she is bedrest and NWB and patient will need ECF on discharge. Tib/Fib xray on the left completed showing no acute fracture. Labs today showing sodium 135, potassium 4.7, BUN 32, c reatinine 1.4. Glucose in the 200s. A1C 9.2. Patient given fluid bolus and continued on normal saline. Blood pressure improving. 08/12/2023 Patient is evaluated today on the medical floor. She is currently bedrest and nonweightbearing and pending social services evaluation and workup for subacute r ehab. She had a tib-fib x-ray that was negative however there continues to be some soft tissue swelling and tenderness to palpation recommending to ice and elevate the left lower extremity. Patient has decreased aeration hypoxia she is not taking deep breaths and recommend to get the patient an incentive spirometer and chest x-ray was done showing borderline cardiomegaly and interstitial prominence and possible mild pulmonary vascular congestion. IV fluids have been discontinued and patient did receive a dose of IV Lasix 20 mg. REVIEW OF SYSTEMS: CONSTITUTIONAL: No fever, no malaise, no fatigue. HEENT: No recent visual problems or hearing problems. Denied any sore throat. CARDIOVASCULAR: No chest pain, orthopnea, PND, no palpitations, no syncope. PULMONARY: No shortness of breath, no cough, no hemoptysis. GASTROINTESTINAL: No diarrhea, no nausea, no vomiting, no abdominal pain. NEUROLOGICAL: No headaches, no weakness, no numbness. PHYSICAL EXAMINATION: GENERAL: The patient is alert and oriented x3, not in any acute distress. Well developed, well nourished. HEENT: Pupils are round and equally reacting to light. EOMI. No scleral icterus. No conjunctival pallor. Normocephalic, atraumatic. No pharyngeal erythema. No thyromegaly. CARDIOVASCULAR: S1 and S2 present. No murmurs, rubs, or gallops. PULMONARY: Chest is clear to auscultation, no wheezing or crackles. ABDOMEN: Soft, nontender, nondistended, normoactive bowel sounds. No palpable organomegaly. MUSCULOSKELETAL: No joint swelling or deformity. EXTREMITIES: No cyanosis, clubbing, or pedal edema. NEUROLOGICAL: Gross neurological examination did not reveal any focal deficits. SKIN: No rashes. Assessment Nondisplaced fracture of the left inferior and superior pubic rami. Does complain of hip pain status post fall on 08/07/2022 and again on 08/09/2022. Hyperglycemia with uncontrolled diabetes type 2 Acute kidney injury likely prerenal. Creatinine 1.3 on admission. Baseline 0.8 Oral Thrush Chronic pain and lumbar degenerative disc disease Anxiety and depressive disorder. Hypertension Hypothyroidism Coronary artery disease with history of stent placement in June 2021 Factor V Leiden mutation History of DVT Morbid obesity with BMI 41.6 GI and DVT prophylaxis with heparin subcu and Pepcid Plan: Patient will be continued on pain management with IV Toradol and patient's home dose of oxycodone which she takes 3 times a day as needed. Patient reports that her pain is uncontrolled currently rating a 7 out of 10. Patient was started back on OxyContin and Xanax. Patient does take 2 mg of Xanax 3 times daily. Will start on tapering down to 1.5 mg 3 times daily and taper it off during the next 3 to 4 weeks. Start back on Levemir 60 units twice daily along with insulin sliding scale and titrate dose as needed. Patient will be continued on propranolol, Plavix and Zetia. Metolazone and losartan is on hold due to acute kidney injury. IV fluids have been discontinued and patient will be given a dose of IV Lasix. Repeat labs in the morning. Orthopedic surgery consult for further evaluation. Will need KARINE on discharge. Started on oral nystatin swish and swallow for the oral thrush. Continue to encourage incentive spirometer 10 times an hour while awake. The impression and plan of care has been dictated by Ebonie Mark, Nurse Pr actitioner as directed. Dr. Pankaj MD I have performed a history and physical examination and medical decision making of this patient, discussed the same with the dictator, and agree with the dicta tors assessment and plan as written, documented as a scribe. Based on total visit time, I have performed more than 50% of this visit. Objective - Vital Signs Vital signs: Vital Signs Temp 97.6 F 08/12/23 07:22 Pulse 76 08/12/23 07:22 Resp 18 08/12/23 07:22 BP 101/61 08/12/23 07:22 Pulse Ox 90 L 08/12/23 07:22 FiO2 Intake & Output 08/11/23 08/12/23 08/12/23 18:59 06:59 18:59 Output Total 300 Balance -300 Weight 113.398 kg Output: Urine 300 Other: Voiding Method External Catheter External Catheter # Voids 1 - Labs CBC & Chem 7: 08/10/23 05:50 08/12/23 05:59 Labs: Abnormal Lab Results - Last 24 Hours (Table) 08/11/23 08/11/23 08/11/23 Range/Units 06:35 11:22 16:28 BUN 32.4 H (9.0-27.0) mg/dL Est GFR (CKD-EPI) 54 L (>=60) BUN/Creatinine Ratio 23.14 H (12.00-20.00) Ratio Glucose 167 H (70-110) mg/dL POC Glucose (mg/dL) 267 H 274 H (70-110) mg/dL Calcium 8.1 L (8.7-10.3) mg/dL 08/11/23 08/12/23 Range/Units 20:01 05:39 BUN (9.0-27.0) mg/dL Est GFR (CKD-EPI) (>=60) BUN/Creatinine Ratio (12.00-20.00) Ratio Glucose (70-110) mg/dL POC Glucose (mg/dL) 263 H 165 H (70-110) mg/dL Calcium (8.7-10.3) mg/dL Assessment and Plan Time with Patient: Less than 30
[2023-08-12] MEDS: polyethylene glycoL 3350 17 GM POWD.PACK PO SCH (15:24)
[2023-08-12 17:02] LABS: Glucose,Whole Blood 512 mg/dL (70-110)
[2023-08-12 17:02] LABS: Glucose,Whole Blood 239 mg/dL (70-110)
[2023-08-12 20:53] LABS: Glucose,Whole Blood 320 mg/dL (70-110)
[2023-08-13] MEDS: HEPARIN SODIUM,PORCINE 5,000 UNIT/ML 1 ML VIAL SQ SCH ×2 (00:14→08:53)
[2023-08-13 03:20] VITALS: RESP 20
[2023-08-13 05:18] LABS: Glucose,Whole Blood 203 mg/dL (70-110)
[2023-08-13] MEDS: INSULIN DETEMIR (LEVEMIR) 100 UNIT/ML SYR SQ SCH (06:09)
[2023-08-13] MEDS: INSULIN ASPART (NovoLOG) 100 UNIT/ML VIAL SQ SCH ×4 (06:09→12:48)
[2023-08-13] MEDS: KETOROLAC 15 MG/ML 1 ML VIAL IVP PRN ×2 (06:09→12:48)
[2023-08-13] MEDS: LEVOTHYROXINE 100 MCG TAB PO SCH (06:10)
[2023-08-13 06:26] LABS: Anisocytosis Slight; Basophils % (A) 0 %; Eosinophils # (A) 0.2 k/uL (0-0.7); Eosinophils % (A) 3 %; HCT 30.4 % (34.0-46.0); HGB 10.4 gm/dL (11.4-16.0); Lymphocytes # (A) 1.4 k/uL (1.0-4.8); Lymphocytes % (A) 29 %; MCH 32.3 pg (25.0-35.0); MCHC 34.3 g/dL (31.0-37.0); MCV 94.2 fL (80.0-100.0); Mean Platelet Volume 8.5; Monocytes # (A) 0.3 k/uL (0-1.0); Monocytes % (A) 6 %; Neutrophils % (A) 61 %; Platelet Count 134 k/uL (150-450); RBC 3.23 m/uL (3.80-5.40); RDW 16.1 % (11.5-15.5)
[2023-08-13 06:59] LABS: African American GFR (CKD) 56 (>60 ml/min/1.73 sqM); Anion Gap 8 mmol/L; Blood Urea Nitrogen 31 mg/dL (7-17); Carbon Dioxide 23 mmol/L (22-30); Chloride 102 mmol/L (98-107); Glucose 193 mg/dL (74-99); Non-African American GFR(CKD) 48 (>60 ml/min/1.73 sqM); Potassium 4.4 mmol/L (3.5-5.1); Sodium 133 mmol/L (137-145)
[2023-08-13] MEDS: ALPRAZolam 0.5 MG TAB PO SCH ×2 (08:53→14:50)
[2023-08-13] MEDS: EZETIMIBE 10 MG TAB PO SCH (08:53)
[2023-08-13] MEDS: polyethylene glycoL 3350 17 GM POWD.PACK PO SCH (08:53)
[2023-08-13] MEDS: DULoxetine HCL 60 MG CAPSULE.DR PO SCH (08:53)
[2023-08-13] MEDS: CLOPIDOGREL 75 MG TAB PO SCH (08:53)
[2023-08-13] MEDS: FUROSEMIDE 10 MG/ML 2 ML VIAL IV SCH (08:53)
[2023-08-13] MEDS: NYSTATIN 100,000 UNIT/ML SUSP 500,000 UNIT/5 ML CUP PO SCH ×2 (08:54→14:47)
[2023-08-13] MEDS: PRIMIDONE 250 MG TAB PO SCH (08:54)
[2023-08-13] MEDS: PROPRANOLOL 40 MG TAB PO SCH (08:54)
[2023-08-13] MEDS: traZODone HCL 100 MG TAB PO SCH (09:09)
[2023-08-13 09:10] VITALS: BP 109/67; PULSE 75; TEMP 98.2
[2023-08-13 11:31] LABS: Glucose,Whole Blood 326 mg/dL (70-110)
--- NOTE | 2023-08-13 13:47 | P.DS ---
Providers Date of admission: 08/09/23 14:15 Expected date of discharge: 08/13/23 Attending physician: Francisco Vela Primary care physician: Miguel Sy Hospital Course: Final diagnosis Nondisplaced fracture of the left inferior and superior pubic rami. Does complain of hip pain status post fall on 08/07/2022 and again on 08/09/2022. Hyperglycemia with uncontrolled diabetes type 2 Acute kidney injury likely prerenal. Creatinine 1.3 on admission. Baseline 0.8 Oral Thrush Chronic pain and lumbar degenerative disc disease Anxiety and depressive disorder. Hypertension Hypothyroidism Coronary artery disease with history of stent placement in June 2021 Factor V Leiden mutation Recurrent falls with unsteady gait History of DVT Morbid obesity with BMI 41.6 GI and DVT prophylaxis with heparin subcu and Pepcid Discharge disposition Patient is being discharged in a stable condition with guarded prognosis to [facility]. Patient will follow-up with Dr. Sy in the outpatient setting upon discharge. Patient is to continue with PT/OT therapy and outpatient follow-up with orthopedics as needed. Recommend repeat CBC, CMP, magnesium in 2-3 days. Total time taken is greater than 35 minutes. Hospital course This is a 68-year-old female who was recently admitted after having recurrent falls and progressive weakness over the last few weeks. Patient was initially persistent ongoing home although had suffered more falls and increased weakness was found to have a nondisplaced fracture of the left inferior and superior pubic rami. Patient was seen and evaluated by physical therapy recommending rehab and patient is now agreeable. Patient has received authorization and will be going to [facility]. Patient with extremely uncontrolled diabetes insulin-dependent maintained on sliding scale along with pre-meal and long- acting and recommend continue with Accu-Cheks before meals and at bedtime and consistent carb diet. Follow up on repeat labs of CBC, BMP, magnesium in 2-3 days is maintained on diuretic therapy to monitor kidney functions and electrolytes. Metolazone is on hold. Patient was seen in evaluated by orthopedics with no plans of surgical intervention at this time. Currently no reports of chest pain, shortness of breath, or palpitations. Patient is afebrile. No reports of nausea or vomiting and patient is tolerating diet. Patient will be going to [facility] today. Guarded prognosis. Physical exam: Gen: This is a 68-year-old female who is awake, alert and oriented 3, well- developed, well-nourished, morbidly obese HEENT: Head is atraumatic, normocephalic. Pupils equal, round. Sclerae is anicteric. NECK: Supple. No JVD. No lymphadenopathy. No thyromegaly. LUNGS: Clear to auscultation. No wheezes or rhonchi. No intercostal retractions. HEART: Regular rate and rhythm. No murmur. ABDOMEN: Soft. Obese. Bowel sounds are present. No masses. No tenderness. EXTREMITIES: No pedal edema. No calf tenderness. NEUROLOGICAL: Patient is awake, alert and oriented x3. Cranial nerves 2 through 12 are grossly intact. Diffusely weak Please refer to medication reconciliation sheet for a list of medications. The impression and plan of care has been dictated by Rocio Maher, Nurse Practitioner as directed. Dr. Dane MD I have performed a history and examination and MDM of this patient, discussed the same with the dictator, and agree with the dictator's assessment and plan as written ,documented as a scribe. Based on total visit time, I have performed more than 50% of the visit. Patient Condition at Discharge: Stable Plan - Discharge Summary Discharge Rx Participant: No New Discharge Prescriptions: New Furosemide [Lasix] 20 mg PO DAILY #30 tab polyethylene glycoL 3350 [Miralax] 17 gm PO DAILY packet Nystatin 100,000 Unit/ml Susp [Mycostatin Oral Susp] 500,000 unit PO QID ml INSULIN ASPART (NovoLOG) [NovoLOG (formulary)] 3 unit SQ AC-TID each Acetaminophen Tab [Tylenol] 650 mg PO Q6HR PRN tab PRN Reason: Mild Pain Or Fever > 100.5 Heparin Sodium,Porcine (1 ml) [Heparin Sodium] 5,000 unit SQ Q8HR each ALPRAZolam [Xanax] 1.5 mg PO TID #4 tab Continue Clopidogrel [Plavix] 75 mg PO DAILY DULoxetine HCL [Cymbalta] 60 mg PO DAILY traZODone HCL [Desyrel] 100 mg PO BID Ezetimibe [Zetia] 10 mg PO DAILY 30 Days #30 tab Insulin Lispro [humaLOG Kwikpen] See Protocol SQ 5XD PRN MDD 200 units PRN Reason: HIGH BLOOD SUGAR oxyCODONE HCL [oxyCODONE HCL (IR)] 10 mg PO TID PRN #3 tab PRN Reason: BACK PAIN Insulin Glargine,Hum.rec.anlog [Lantus Solostar Pen] 60 units SQ BID Levothyroxine Sodium [Synthroid] 300 mcg PO DAILY Metoclopramide [Reglan] 5 mg PO QID PRN PRN Reason: Nausea diphenhydrAMINE HCL [Benadryl] 25 mg PO QID PRN PRN Reason: ALLERGIES/ITCHING Nystatin 100,000 Unit/gm Powd [Mycostatin Powder] 1 applic TOPICAL BID Propranolol [Inderal] 40 mg PO BID #60 tab Primidone [Mysoline] 125 mg PO BID #60 tab Discontinued ALPRAZolam [Xanax] 2 mg PO TID metOLazone [Zaroxolyn] 5 mg PO DAILY lisinopriL [Prinivil] 10 mg PO DAILY Discharge Medication List Clopidogrel [Plavix] 75 mg PO DAILY 07/07/19 [History] DULoxetine HCL [Cymbalta] 60 mg PO DAILY 07/07/19 [History] traZODone HCL [Desyrel] 100 mg PO BID 07/07/19 [History] Ezetimibe [Zetia] 10 mg PO DAILY 30 Days #30 tab 01/30/20 [Rx] Insulin Glargine,Hum.rec.anlog [Lantus Solostar Pen] 60 units SQ BID 06/09/21 [History] Insulin Lispro [humaLOG Kwikpen] See Protocol SQ 5XD PRN MDD 200 units 06/09/21 [History] Levothyroxine Sodium [Synthroid] 300 mcg PO DAILY 08/30/21 [History] Metoclopramide [Reglan] 5 mg PO QID PRN 09/10/21 [History] Nystatin 100,000 Unit/gm Powd [Mycostatin Powder] 1 applic TOPICAL BID 06/21/23 [History] diphenhydrAMINE HCL [Benadryl] 25 mg PO QID PRN 06/21/23 [History] Primidone [Mysoline] 125 mg PO BID #60 tab 06/22/23 [Rx] Propranolol [Inderal] 40 mg PO BID #60 tab 06/22/23 [Rx] ALPRAZolam [Xanax] 1.5 mg PO TID #4 tab 08/13/23 [Rx] Acetaminophen Tab [Tylenol] 650 mg PO Q6HR PRN tab 08/13/23 [Rx] Furosemide [Lasix] 20 mg PO DAILY #30 tab 08/13/23 [Rx] Heparin Sodium,Porcine (1 ml) [Heparin Sodium] 5,000 unit SQ Q8HR each 08/13/23 [Rx] INSULIN ASPART (NovoLOG) [NovoLOG (formulary)] 3 unit SQ AC-TID each 08/13/23 [Rx] Nystatin 100,000 Unit/ml Susp [Mycostatin Oral Susp] 500,000 unit PO QID ml 08/13/23 [Rx] oxyCODONE HCL [oxyCODONE HCL (IR)] 10 mg PO TID PRN #3 tab 08/13/23 [Rx] polyethylene glycoL 3350 [Miralax] 17 gm PO DAILY packet 08/13/23 [Rx] Follow up Appointment(s)/Referral(s): Miguel Sy MD [Primary Care Provider] - 1-2 days Activity/Diet/Wound Care/Special Instructions: Patient is going [facility] on [address] Activity as tolerated Follow-up primary care provider on discharge Follow-up with orthopedics outpatient Repeat labs of CBC, BMP, magnesium in 2-3 days Continue monitoring Accu-Cheks closely and before meals and at bedtime NovoLog sliding scale 0-150 equals 0 units 151-200 equals 2 units 201-250 equals 4 units 251-300 equals 6 units 301-350 equals 8 units 351-400 equals 10 units Please notify provider if blood sugar is 400 or above Continue with sliding scale along with pre-meal insulins and long acting as blood sugars have been elevated and uncontrolled Continue consistent carb diet/heart healthy Continue using incentive spirometer at least 10 times every hour while awake Discharge Disposition: TRANSFER TO SNF/ECF
== END 2023-08-13 16:17 | DRG 536 ==
LOC: EC 11:58 → 4SSUR 14:15
PROVIDERS: ADMIT Hospitalist; ATTEND Hospitalist
DX: S32.592A Other specified fracture of left pubis, initial encounter for closed fracture (principal); N17.9 Acute kidney failure, unspecified; D68.51 Activated protein C resistance; B37.0 Candidal stomatitis; Z68.41 Body mass index [BMI] 40.0-44.9, adult; R09.02 Hypoxemia; E03.9 Hypothyroidism, unspecified; Z79.890 Hormone replacement therapy; E11.51 Type 2 diabetes mellitus with diabetic peripheral angiopathy without gangrene; E66.01 Morbid (severe) obesity due to excess calories; E11.41 Type 2 diabetes mellitus with diabetic mononeuropathy; E78.5 Hyperlipidemia, unspecified; G89.29 Other chronic pain; I10 Essential (primary) hypertension; M16.10 Unilateral primary osteoarthritis, unspecified hip; M51.36 Other intervertebral disc degeneration, lumbar region; R29.6 Repeated falls; S81.812A Laceration without foreign body, left lower leg, initial encounter; E11.610 Type 2 diabetes mellitus with diabetic neuropathic arthropathy; Z91.041 Radiographic dye allergy status; F32.A Depression, unspecified; F41.0 Panic disorder [episodic paroxysmal anxiety]; M54.50 Low back pain, unspecified; M54.32 Sciatica, left side; M54.31 Sciatica, right side; E11.42 Type 2 diabetes mellitus with diabetic polyneuropathy; G25.0 Essential tremor; I25.2 Old myocardial infarction; Z79.02 Long term (current) use of antithrombotics/antiplatelets; Z79.4 Long term (current) use of insulin; Z79.899 Other long term (current) drug therapy; Z85.828 Personal history of other malignant neoplasm of skin; D64.9 Anemia, unspecified; Z86.711 Personal history of pulmonary embolism; Z86.718 Personal history of other venous thrombosis and embolism; Z87.01 Personal history of pneumonia (recurrent); Z87.440 Personal history of urinary (tract) infections; Z90.710 Acquired absence of both cervix and uterus; Z95.5 Presence of coronary angioplasty implant and graft; Z88.6 Allergy status to analgesic agent; Z88.8 Allergy status to other drugs, medicaments and biological substances; Z88.1 Allergy status to other antibiotic agents
CPT/HCPCS: 36415; 71046; 73502; 80048; 80053; 83036; 84439; 84443; 85025; 96374; 99285

== ENCOUNTER 2023-09-21 13:39 | Inpatient (IN) | payer MEDICARE, BC ==
--- NOTE | 2023-09-21 14:28 | ED ---
Recheck HPI - General Source: patient, RN notes reviewed Mode of arrival: wheelchair Limitations: no limitations <Eleonora Gr - Last Filed: 09/21/23 14:29> - General Source: RN notes reviewed, old records reviewed Mode of arrival: wheelchair Limitations: no limitations - History of Present Illness MD Complaint: abnormal lab (Which urinary tract infection) -: days(s) Returns Today for: Called Because of Abnormal Lab/Test, persistent/worsening pain related to initial visit Symptoms Since Prior Visit: no new symptoms Context: called for abnormal lab result Associated Symptoms: none Treatments Prior to Arrival: other medications <Kwan Amin - Last Filed: 09/21/23 21:40> - General Chief Complaint: Recheck/Abnormal Lab/Rx Stated Complaint: UTI-sent by PCP Time Seen by Provider: 09/21/23 14:20 - History of Present Illness Initial Comments: This is a 68-year-old female who presents to the emergency department for failed outpatient management of the UTI. Patient brings her culture and sensitivity report with her, which was collected on 09/10. However, patient states that she failed outpatient management of Zosyn, which the report says the bacteria is susceptible to. It is not entirely clear why she was on this or how she was receiving it. States that Levaquin was called in today, however she was advised to come to the hospital for for IV antibiotics instead. Reports pain all over her body. (Eleonora Gr) This is a 68-year-old female to the ER for evaluation of possible failure of outpatient urinary tract infection. Patient complaining of left lower extremity pain worsening right lower extremity pain, patient will be admitted for IV antibiotics and failed outpatient treatment (Kwan Amin) - Related Data Home Medications Medication Instructions Recorded Confirmed Clopidogrel [Plavix] 75 mg PO DAILY 07/07/19 08/09/23 DULoxetine HCL [Cymbalta] 60 mg PO DAILY 07/07/19 08/09/23 traZODone HCL [Desyrel] 100 mg PO BID 07/07/19 08/09/23 Insulin Glargine,Hum.rec.anlog 60 units SQ BID 06/09/21 08/09/23 [Lantus Solostar Pen] Insulin Lispro [humaLOG Kwikpen] See Protocol SQ 5XD PRN MDD 200 06/09/21 08/09/23 units Levothyroxine Sodium [Synthroid] 300 mcg PO DAILY 08/30/21 08/09/23 Metoclopramide [Reglan] 5 mg PO QID PRN 09/10/21 08/09/23 Nystatin 100,000 Unit/gm Powd 1 applic TOPICAL BID 06/21/23 08/09/23 [Mycostatin Powder] diphenhydrAMINE HCL [Benadryl] 25 mg PO QID PRN 06/21/23 08/09/23 Previous Rx's Medication Instructions Recorded Ezetimibe [Zetia] 10 mg PO DAILY 30 Days #30 tab 01/30/20 Primidone [Mysoline] 125 mg PO BID #60 tab 06/22/23 Propranolol [Inderal] 40 mg PO BID #60 tab 06/22/23 ALPRAZolam [Xanax] 1.5 mg PO TID #4 tab 08/13/23 Acetaminophen Tab [Tylenol] 650 mg PO Q6HR PRN tab 08/13/23 Furosemide [Lasix] 20 mg PO DAILY #30 tab 08/13/23 Heparin Sodium,Porcine (1 ml) 5,000 unit SQ Q8HR each 08/13/23 [Heparin Sodium] INSULIN ASPART (NovoLOG) [NovoLOG 3 unit SQ AC-TID each 08/13/23 (formulary)] Nystatin 100,000 Unit/ml Susp 500,000 unit PO QID ml 08/13/23 [Mycostatin Oral Susp] oxyCODONE HCL [oxyCODONE HCL (IR)] 10 mg PO TID PRN #3 tab 08/13/23 polyethylene glycoL 3350 [Miralax] 17 gm PO DAILY packet 08/13/23 Allergies Allergy/AdvReac Type Severity Reaction Status Date / Time Iodinated Contrast Media Allergy Rash/Hives Verified 09/21/23 14:23 Iodine and Iodide Containing Allergy Rash/Hives Verified 09/21/23 14:23 Produc liraglutide [From Saxenda] AdvReac Unknown Nausea & Verified 09/21/23 14:23 Vomiting NSAIDS (Non-Steroidal AdvReac Unknown Nausea & Verified 09/21/23 14:23 Anti-Inflamma Vomiting aspirin AdvReac Nausea & Verified 09/21/23 14:23 Vomiting with high doses azithromycin AdvReac Vomiting Verified 09/21/23 14:23 naproxen [From Naprosyn] AdvReac Nausea & Verified 09/21/23 14:23 Vomiting Review of Systems ROS Other: All systems not noted in ROS Statement are negative. <Eleonora Gr - Last Filed: 09/21/23 14:29> ROS Other: All systems not noted in ROS Statement are negative. <Kwan Amin - Last Filed: 09/21/23 21:40> ROS Statement: Those systems with pertinent positive or pertinent negative responses have been documented in the HPI. Past Medical History Past Medical History: Blood Disorder, Cancer, Diabetes Mellitus, Deep Vein Thrombosis (DVT), GERD/Reflux, Hyperlipidemia, Hypertension, Myocardial Infarction (CO), Neurologic Disorder, Osteoarthritis (OA), Pulmonary Embolus (PE), Thyroid Disorder Additional Past Medical History / Comment(s): Factor 5 leiden, DVT L leg, PE L lung, MIs x 5, palpitations, IDDM type II, neuropathy bilateral legs/feet, lymphedema L leg, charcot syndrome L foot, chronic low back pain, bilateral sciatica,hx bronchitis, anemia, hypothyroid, hx UTI, IBS, sinus problems, worsening tremors, "stomach shivering inside" plans to f/u with pcp. being seen for skin cancer removal. hx of pneumonia long ago Last Myocardial Infarction Date:: January 2020 History of Any Multi-Drug Resistant Organisms: VRE Date of last positivie culture/infection: 08/24/23 MDRO Source:: Urine Past Surgical History: Appendectomy, Cholecystectomy, Heart Catheterization With Stent, Hernia Repair, Hysterectomy, Tonsillectomy Additional Past Surgical History / Comment(s): Bilateral salpingectomy, bilateral oophorectomy, abdominal hernia surgeries, L foot fracture, bilateral cataract removals, epidural injections with last on 01/20/20 lumbar, LAST PROCEDURE 04/19/21 Past Anesthesia/Blood Transfusion Reactions: No Reported Reaction Additional Past Anesthesia/Blood Transfusion Reaction / Comment(s): Pt has received blood in past without reaction. Date of Last Stent Placement:: January 2020 Past Psychological History: Anxiety, Depression, Panic Disorder Smoking Status: Former smoker Past Alcohol Use History: None Reported Past Drug Use History: None Reported - Past Family History Mother Family Medical History: COPD Additional Family Medical History / Comment(s): Mother was a smoker. Father Family Medical History: Cancer Additional Family Medical History / Comment(s): Lung cancer. Father was a smoker. Son(s) Family Medical History: Deep Vein Thrombosis (DVT) <Eleonora Gr - Last Filed: 09/21/23 14:29> General Exam Limitations: no limitations <Eleonora Gr - Last Filed: 09/21/23 14:29> General appearance: alert, in no apparent distress Head exam: Present: atraumatic, normocephalic, normal inspection Eye exam: Present: normal appearance, PERRL, EOMI. Absent: scleral icterus, conjunctival injection, periorbital swelling ENT exam: Present: normal exam, mucous membranes moist Neck exam: Present: normal inspection. Absent: tenderness, meningismus, lymphadenopathy Respiratory exam: Present: normal lung sounds bilaterally. Absent: respiratory distress, wheezes, rales, rhonchi, stridor Cardiovascular Exam: Present: regular rate, normal rhythm, normal heart sounds. Absent: systolic murmur, diastolic murmur, rubs, gallop, clicks GI/Abdominal exam: Present: soft, normal bowel sounds. Absent: distended, tenderness, guarding, rebound, rigid Extremities exam: Present: normal inspection, full ROM, normal capillary refill. Absent: tenderness, pedal edema, joint swelling, calf tenderness Back exam: Present: normal inspection Neurological exam: Present: alert, oriented X3, CN II-XII intact Psychiatric exam: Present: normal affect, normal mood Skin exam: Present: warm, dry, intact, normal color. Absent: rash <Kwan Amin - Last Filed: 09/21/23 21:40> - General Exam Comments Initial Comments: Visual Physical Exam Vital signs reviewed General: Well-appearing, nontoxic, no acute distress. Head: Normocephalic, atraumatic Eyes: PERRLA, EOMI ENT: Airway patent Chest: Nonlabored breathing Skin: No visual rash, normal skin tone Neuro: Alert and oriented 3 Musculoskeletal: No gross abnormalities (Eleonora Gr) Course <Kwan Amin - Last Filed: 09/21/23 21:40> Vital Signs 09/21/23 14:19 Temperature 97.6 F Pulse Rate 68 Respiratory 16 Rate Blood Pressure 112/60 O2 Sat by Pulse 95 Oximetry - Reevaluation(s) Reevaluation #1: 09/21/23 21:38 medicall records reviewed (Kwan Amin) Reevaluation #2: 09/21/23 21:38 Patient symptoms unchanged (Kwan Amin) Reevaluation #3: 09/21/23 21:38 Patient informed of results and questions significance (Kwan Amin) Reevaluation #4: Was pt. sent in by a medical professional or institution (RONI Hollis, INFORMATION TECHNOLOGY ASSISTANT, urgent care, hospital, or care home...) When possible be specific @ -no Did you speak to anyone other than the patient for history (EMS, parent, family, police, friend...)? What history was obtained from this source @ -no Did you review nursing and triage notes (agree or disagree)? Why? @ -agree Are old charts reviewed (outside hosp., previous admission, EMS record, old EKG, old radiological studies, urgent care reports/EKG's, care home records)? Report findings @ -yes Differential Diagnosis (chest pain, altered mental status, abdominal pain women, abdominal pain men, vaginal bleeding, weakness, fever, dyspnea, syncope, headache, dizziness, GI bleed, back pain, seizure, CVA, palpatations, mental health, musculoskeletal)? @ -prior EKG interpreted by me (3pts min.). @ -yes X-rays interpreted by me (1pt min.). @ -yes negative for acute disease CT interpreted by me (1pt min.). @ -no U/S interpreted by me (1pt. min.). @ -no What testing was considered but not performed or refused? (CT, X-rays, U/S, labs)? Why? @ -none What meds were considered but not given or refused? Why? @ -none Did you discuss the management of the patient with other professionals (professionals i.e. RONI Hollis, INFORMATION TECHNOLOGY ASSISTANT, lab, RT, psych nurse, 7th grade social studies teacher, balance wheel screw hole driller, teacher, assurance officer, case management director)? Give summary @ -no Was smoking cessation discussed for >3mins.? @ -no Was critical care preformed (if so, how long)? @ -no Were there social determinants of health that impacted care today? How? (Homelessness, low income, unemployed, alcoholism, drug addiction, transportation, low edu. Level, literacy, decrease access to med. care, prison, rehab)? @ -none Was there de-escalation of care discussed even if they declined (Discuss DNR or withdrawal of care, Hospice)? DNR status @ -no What co-morbidities impacted this encounter? (DM, HTN, Smoking, COPD, CAD, Ca ncer, CVA, ARF, Chemo, Hep., AIDS, mental health diagnosis, sleep apnea, morbid obesity)? @ -none Was patient admitted / discharged? Hospital course, mention meds given and route, prescriptions, significant lab abnormalities, going to OR and other pertinent info. @ - Undiagnosed new problem with uncertain prognosis? @ -no Drug Therapy requiring intensive monitoring for toxicity (Heparin, Nitro, Insulin, Cardizem)? @ -no Were any procedures done? @ -no Diagnosis/symptom? @ - Acute, or Chronic, or Acute on Chronic? @ -Acute Uncomplicated (without systemic symptoms) or Complicated (systemic symptoms)? @ -Complicated Side effects of treatment? @ -no Exacerbation, Progression, or Severe Exacerbation? @ -exacerbation Poses a threat to life or bodily function? How? (Chest pain, USA, CO, pneumonia, PE, COPD, DKA, ARF, appy, cholecystitis, CVA, Diverticulitis, Homicidal, Suicidal, threat to staff... and all critical care pts) @ -yes (Kwan Amin) - Consultations Consultation #1: sPoke with admitting physicians who agreed to admit this patient (Kwan Amin) Medical Decision Making <Eleonora Gr - Last Filed: 09/21/23 14:29> - Lab Data Result diagrams: 09/21/23 15:59 09/21/23 15:59 <Kwan Amin - Last Filed: 09/21/23 21:40> - Medical Decision Making I performed the QuickNote portion of this chart. Signed Eleonora Gr PA-C. (Eleonora Gr) - Lab Data Lab Results 09/21/23 09/21/23 09/21/23 Range/Units 15:59 15:59 15:59 WBC 6.9 (3.8-10.6) k/uL RBC 3.49 L (3.80-5.40) m/uL Hgb 11.2 L (11.4-16.0) gm/dL Hct 34.3 (34.0-46.0) % MCV 98.3 (80.0-100.0) fL MCH 32.2 (25.0-35.0) pg MCHC 32.7 (31.0-37.0) g/dL RDW 16.8 H (11.5-15.5) % Plt Count 139 L (150-450) k/uL MPV 9.7 Neutrophils % 68 % Lymphocytes % 22 % Monocytes % 4 % Eosinophils % 4 % Basophils % 0 % Neutrophils # 4.7 (1.3-7.7) k/uL Lymphocytes # 1.5 (1.0-4.8) k/uL Monocytes # 0.3 (0-1.0) k/uL Eosinophils # 0.3 (0-0.7) k/uL Basophils # 0.0 (0-0.2) k/uL Hypochromasia Slight Anisocytosis Slight Macrocytosis Slight Sodium 132 L (137-145) mmol/L Potassium 5.4 H (3.5-5.1) mmol/L Chloride 101 (98-107) mmol/L Carbon Dioxide 25 (22-30) mmol/L Anion Gap 6 mmol/L BUN 30 H (7-17) mg/dL Creatinine 1.35 H (0.52-1.04) mg/dL Est GFR (CKD-EPI)AfAm 46 (>60 ml/min/1.73 sqM) Est GFR (CKD-EPI)NonAf 40 (>60 ml/min/1.73 sqM) Glucose 177 H (74-99) mg/dL Plasma Lactic Acid Lloyd 1.0 (0.7-2.0) mmol/L Calcium 8.3 L (8.4-10.2) mg/dL Total Bilirubin 0.5 (0.2-1.3) mg/dL AST 56 H (14-36) U/L ALT 43 H (4-34) U/L Alkaline Phosphatase 389 H (38-126) U/L Total Protein 7.4 (6.3-8.2) g/dL Albumin 3.8 (3.5-5.0) g/dL Disposition <Eleonora Gr - Last Filed: 09/21/23 14:29> Is patient prescribed a controlled substance at d/c from ED?: No Time of Disposition: 21:50 <Kwan Amin - Last Filed: 09/21/23 21:40> Clinical Impression: UTI (urinary tract infection), Weakness, Failure to thrive in adult, LIAM (acute kidney injury), Bilateral lower leg cellulitis Disposition: HOME SELF-CARE Condition: Fair Referrals: Miguel Sy MD [Primary Care Provider] - 1-2 days
[2023-09-21 16:21] LABS: Anisocytosis Slight; Basophils % (A) 0 %; Eosinophils # (A) 0.3 k/uL (0-0.7); Eosinophils % (A) 4 %; HCT 34.3 % (34.0-46.0); HGB 11.2 gm/dL (11.4-16.0); Hypochromasia Slight; Lymphocytes # (A) 1.5 k/uL (1.0-4.8); Lymphocytes % (A) 22 %; MCH 32.2 pg (25.0-35.0); MCHC 32.7 g/dL (31.0-37.0); MCV 98.3 fL (80.0-100.0); Macrocytosis Slight; Mean Platelet Volume 9.7; Monocytes # (A) 0.3 k/uL (0-1.0); Monocytes % (A) 4 %; Neutrophils # (A) 4.7 k/uL (1.3-7.7); Neutrophils % (A) 68 %; Platelet Count 139 k/uL (150-450); RBC 3.49 m/uL (3.80-5.40); RDW 16.8 % (11.5-15.5); WBC 6.9 k/uL (3.8-10.6)
[2023-09-21 16:34] LABS: ALT 43 U/L (4-34); AST 56 U/L (14-36); African American GFR (CKD) 46 (>60 ml/min/1.73 sqM); Albumin 3.8 g/dL (3.5-5.0); Alkaline Phosphatase 389 U/L (38-126); Anion Gap 6 mmol/L; Blood Urea Nitrogen 30 mg/dL (7-17); Calcium 8.3 mg/dL (8.4-10.2); Carbon Dioxide 25 mmol/L (22-30); Chloride 101 mmol/L (98-107); Glucose 177 mg/dL (74-99); Non-African American GFR(CKD) 40 (>60 ml/min/1.73 sqM); Potassium 5.4 mmol/L (3.5-5.1); Sodium 132 mmol/L (137-145); Total Bilirubin 0.5 mg/dL (0.2-1.3); Total Protein 7.4 g/dL (6.3-8.2)
[2023-09-21] MEDS: SODIUM CHLORIDE 0.9% 1,000 ML IV STA ×2 (21:17→23:19)
[2023-09-21] MEDS: SODIUM CHLORIDE 0.9% 500 ML 500 ML IV STA (21:22)
[2023-09-21] MEDS ORDERED: MORPHINE SULFATE 4 MG/ML SYRINGE IV PRN (21:34)
[2023-09-21] MEDS ORDERED: NALOXONE 0.4 MG/ML 1 ML VIAL IV PRN (21:34)
[2023-09-21] MEDS ORDERED: VANCOMYCIN IV PER PHARMACY 1 EACH MISC MISCELLANE PRN (21:37)
[2023-09-21 21:52] LABS: Appearance,Urine Clear (Clear); Bilirubin,Urine Negative (Negative); Blood,Urine Negative (Negative); Color,Urine Colorless; Glucose,Urine (UA) 1+ (Negative); Ketones,Urine Negative (Negative); Leukocyte Esterase,Urine Negative (Negative); Nitrite,Urine Negative (Negative); Protein,Urine Negative (Negative); Urobilinogen,Urine <2.0 mg/dL (<2.0)
[2023-09-21] MEDS ORDERED: VANCOMYCIN 1,750 MG in SODIUM CHLORIDE 0.9% 500 ML 500 ML IVPB ONE (22:00)
[2023-09-21] MEDS: HYDROmorphone 1 MG/ML 1 ML SYRINGE IVP STA (22:22)
[2023-09-21] MEDS: SODIUM CHLORIDE 0.9% 1,000 ML IV SCH (23:27)
[2023-09-21] MEDS: LEVOFLOXACIN 750MG-D5W PMX 750 MG in DEXTROSE/WATER 1 150ML.BAG IVPB STA (23:53)
[2023-09-22 00:48] LABS: Magnesium 2.5 mg/dL (1.6-2.3); Phosphorus 3.6 mg/dL (2.5-4.5)
[2023-09-22] MEDS: HYDROmorphone 1 MG/ML 1 ML SYRINGE IVP STA (04:18)
[2023-09-22] MEDS: ONDANSETRON 4 MG/2 ML VIAL IVP PRN (04:28)
[2023-09-22 05:56] LABS: Glucose,Whole Blood 156 mg/dL (70-110)
[2023-09-22 06:12] LABS: Anisocytosis Slight; Basophils % (A) 0 %; Eosinophils # (A) 0.2 k/uL (0-0.7); Eosinophils % (A) 3 %; HCT 31.2 % (34.0-46.0); HGB 10.2 gm/dL (11.4-16.0); Hypochromasia Moderate; Lymphocytes # (A) 1.3 k/uL (1.0-4.8); Lymphocytes % (A) 19 %; MCH 32.7 pg (25.0-35.0); MCHC 32.8 g/dL (31.0-37.0); MCV 99.7 fL (80.0-100.0); Macrocytosis Slight; Mean Platelet Volume 9.8; Monocytes # (A) 0.3 k/uL (0-1.0); Monocytes % (A) 4 %; Neutrophils # (A) 4.9 k/uL (1.3-7.7); Neutrophils % (A) 72 %; Platelet Count 117 k/uL (150-450); RBC 3.13 m/uL (3.80-5.40); RDW 16.9 % (11.5-15.5); WBC 6.9 k/uL (3.8-10.6)
[2023-09-22 06:48] LABS: ALT 38 U/L (4-34); African American GFR (CKD) 53 (>60 ml/min/1.73 sqM); Anion Gap 3 mmol/L; Blood Urea Nitrogen 28 mg/dL (7-17); Calcium 7.8 mg/dL (8.4-10.2); Carbon Dioxide 22 mmol/L (22-30); Chloride 107 mmol/L (98-107); Glucose 153 mg/dL (74-99); Non-African American GFR(CKD) 46 (>60 ml/min/1.73 sqM); Sodium 132 mmol/L (137-145); Total Bilirubin 0.5 mg/dL (0.2-1.3); Total Protein 6.2 g/dL (6.3-8.2)
[2023-09-22 07:46] LABS: AST 59 U/L (14-36); Alkaline Phosphatase 312 U/L (38-126); Magnesium 2.4 mg/dL (1.6-2.3); Phosphorus 3.7 mg/dL (2.5-4.5); Potassium 6.4 mmol/L (3.5-5.1)
[2023-09-22] MEDS ORDERED: DEXTROSE 50% SYRINGE 50 ML IVP PRN ×2 (07:57)
[2023-09-22] MEDS: PRIMIDONE 250 MG TAB PO SCH (08:27)
[2023-09-22] MEDS: METOPROLOL SUCCINATE (ER) 25 MG TAB.ER.24H PO SCH (08:28)
[2023-09-22] MEDS: CLOPIDOGREL 75 MG TAB PO SCH (08:28)
[2023-09-22] MEDS: EZETIMIBE 10 MG TAB PO SCH (08:28)
[2023-09-22] MEDS: ASPIRIN 81 MG PO SCH (08:28)
[2023-09-22] MEDS: HEPARIN SODIUM,PORCINE 5,000 UNIT/ML 1 ML VIAL SQ SCH (08:29)
[2023-09-22] MEDS: PANTOPRAZOLE 40 MG/10 ML VIAL IV SCH (08:29)
[2023-09-22] MEDS: INSULIN REGULAR 100 UNIT/ML VIAL (IV) IV ONE ×3 (08:30→20:04)
[2023-09-22] MEDS: SODIUM BICARB 8.4% 50 ML SYR (1 MEQ/ML) IV ONE ×2 (08:31→13:43)
[2023-09-22] MEDS: DEXTROSE 50% SYRINGE 50 ML IVP ONE ×2 (08:32→13:42)
[2023-09-22 09:00] LABS: Glucose,Whole Blood 362 mg/dL (70-110)
[2023-09-22] MEDS: ALBUTEROL NEB (CONC) 2.5 MG/0.5 ML INHALATION ONE ×2 (09:19→13:46)
[2023-09-22] MEDS: INSULIN ASPART (NovoLOG) 100 UNIT/ML VIAL SQ ONE (09:29)
[2023-09-22] MEDS: LEVOTHYROXINE 100 MCG TAB PO SCH (09:50)
[2023-09-22 09:55] LABS: Glucose,Whole Blood 324 mg/dL (70-110)
[2023-09-22 11:55] LABS: Glucose,Whole Blood 210 mg/dL (70-110)
[2023-09-22] MEDS: INSULIN ASPART (NovoLOG) 100 UNIT/ML VIAL SQ SCH (12:28)
[2023-09-22] MEDS: SODIUM POLYSTYRENE SULFONATE 15 GM/60 ML BOTTLE PO ONE (13:44)
[2023-09-22] MEDS: SODIUM ZIRCONIUM CYCLOSILICATE 10 GM PACKET PO ONE (13:44)
[2023-09-22 14:50] LABS: Potassium 6.4 mmol/L (3.5-5.1)
[2023-09-22 14:55] LABS: Glucose,Whole Blood 233 mg/dL (70-110)
[2023-09-22 16:36] LABS: Glucose,Whole Blood 226 mg/dL (70-110)
[2023-09-22] MEDS: FUROSEMIDE 10 MG/ML 4 ML VIAL IV STA (20:03)
[2023-09-22] MEDS: traZODone HCL 100 MG TAB PO SCH (20:05)
[2023-09-22] MEDS: FLUDROCORTISONE 0.1 MG TAB PO STA (20:05)
[2023-09-22] MEDS: SODIUM BICARB 8.4% 50 ML SYR (1 MEQ/ML) IV STA (20:06)
[2023-09-22] MEDS: DEXTROSE 50% SYRINGE 50 ML IVP STA (20:07)
--- NOTE | 2023-09-22 20:24 | P.HPIM ---
History of Present Illness H&P Date: 09/22/23 Chief Complaint: UTI 68-year-old female, history of hypertension, hyperlipidemia, hypothyroidism, diabetes mellitus, DVT/PE, factor V Leiden deficiency, who presents to the em ergency department for failed outpatient management of the UTI. Patient brings her culture and sensitivity report with her, which was collected on 09/10. However, patient states that she failed outpatient management of Zosyn, which the report says the bacteria is susceptible to. It is not entirely clear why she was on this or how she was receiving it. States that Levaquin was called in today, however she was advised to come to the hospital for for IV antibiotics instead. Reports pain all over her body. Blood work completed in ED reveals a WBC of 6.9, hemoglobin of 11.2 and platelet count of 139, sodium 132, potassium 5.4, BUN/creatinine of 30/1.35 and blood glucose of 177, AST/ALT elevated at 56/43 Patient is being admitted for further treatment of UTI and hyperkalemia Review of Systems REVIEW OF SYSTEMS: CONSTITUTIONAL: No fever, no malaise, no fatigue. HEENT: No recent visual problems or hearing problems. Denied any sore throat. CARDIOVASCULAR: No chest pain, orthopnea, PND, no palpitations, no syncope. PULMONARY: No shortness of breath, no cough, no hemoptysis. GASTROINTESTINAL: No diarrhea, no nausea, no vomiting, no abdominal pain. NEUROLOGICAL: No headaches, no weakness, no numbness. HEMATOLOGICAL: Denies any bleeding or petechiae. GENITOURINARY: Denies any burning micturition, frequency, or urgency. MUSCULOSKELETAL/RHEUMATOLOGICAL: Denies any joint pain, swelling, or any muscle pain. ENDOCRINE: Denies any polyuria or polydipsia. The rest of the 14-point review of systems is negative. Past Medical History Past Medical History: Blood Disorder, Cancer, Diabetes Mellitus, Deep Vein Thr ombosis (DVT), GERD/Reflux, Hyperlipidemia, Hypertension, Myocardial Infarction (VT), Neurologic Disorder, Osteoarthritis (OA), Pulmonary Embolus (PE), Thyroid Disorder Additional Past Medical History / Comment(s): Factor 5 leiden, DVT L leg, PE L lung, MIs x 5, palpitations, IDDM type II, neuropathy bilateral legs/feet, lymphedema L leg, charcot syndrome L foot, chronic low back pain, bilateral sciatica,hx bronchitis, anemia, hypothyroid, hx UTI, IBS, sinus problems, w orsening tremors, "stomach shivering inside" plans to f/u with pcp. skin cancer removal. hx of pneumonia long ago, pelvic fx Last Myocardial Infarction Date:: January 2020 History of Any Multi-Drug Resistant Organisms: VRE Date of last positivie culture/infection: 08/24/23 MDRO Source:: Urine Past Surgical History: Appendectomy, Cholecystectomy, Heart Catheterization With Stent, Hernia Repair, Hysterectomy, Tonsillectomy Additional Past Surgical History / Comment(s): Bilateral salpingectomy, bilateral oophorectomy, abdominal hernia surgeries, L foot fracture, bilateral cataract removals, epidural injections with last on 01/20/20 lumbar, LAST PROC EDURE 04/19/21 Past Anesthesia/Blood Transfusion Reactions: No Reported Reaction Additional Past Anesthesia/Blood Transfusion Reaction / Comment(s): Pt has received blood in past without reaction. Date of Last Stent Placement:: January 2020 Past Psychological History: Anxiety, Depression, Panic Disorder Additional Psychological History / Comment(s): Pt resides with her spouse. severe panic attacks Smoking Status: Former smoker Past Alcohol Use History: None Reported Additional Past Alcohol Use History / Comment(s): STARTED SMOKING AT AGE 20quit smoking 2012, smoked 1ppd Past Drug Use History: None Reported - Past Family History Mother Family Medical History: COPD Additional Family Medical History / Comment(s): Mother was a smoker. Father Family Medical History: Cancer Additional Family Medical History / Comment(s): Lung cancer. Father was a smoker. Son(s) Family Medical History: Deep Vein Thrombosis (DVT) Medications and Allergies Home Medications Medication Instructions Recorded Confirmed Type Clopidogrel [Plavix] 75 mg PO DAILY 07/07/19 09/21/23 History traZODone HCL [Desyrel] 200 mg PO HS 07/07/19 09/21/23 History Ezetimibe [Zetia] 10 mg PO DAILY 30 Days #30 tab 01/30/20 09/21/23 Rx Insulin Glargine,Hum.rec.anlog 50 units SQ BID 06/09/21 09/21/23 History [Lantus Solostar Pen] Levothyroxine Sodium [Synthroid] 300 mcg PO DAILY 08/30/21 09/21/23 History Metoclopramide [Reglan] 5 mg PO QID PRN 09/10/21 09/21/23 History diphenhydrAMINE HCL [Benadryl] 25 mg PO DAILY PRN 06/21/23 09/21/23 History Primidone [Mysoline] 125 mg PO BID #60 tab 06/22/23 09/21/23 Rx ALPRAZolam [Xanax] 2 mg PO TID 09/21/23 09/21/23 History Aspirin EC [Ecotrin Low Dose] 81 mg PO DAILY 09/21/23 09/21/23 History Insulin Lispro [humaLOG Kwikpen] See Protocol SQ AC-TID 09/21/23 09/21/23 History Levofloxacin [Levaquin] 500 mg PO DIRECTED 09/21/23 09/21/23 History Metoprolol Succinate (ER) [Toprol 25 mg PO DAILY 09/21/23 09/21/23 History Xl] lisinopriL [Prinivil] 10 mg PO DAILY 09/21/23 09/21/23 History metOLazone [Zaroxolyn] 5 mg PO DAILY 09/21/23 09/21/23 History oxyCODONE HCL [oxyCODONE HCL (IR)] 10 mg PO TID 09/21/23 09/21/23 History Allergies Allergy/AdvReac Type Severity Reaction Status Date / Time Iodinated Contrast Media Allergy Rash/Hives Verified 09/21/23 22:48 Iodine and Iodide Containing Allergy Rash/Hives Verified 09/21/23 22:48 Produc liraglutide [From Saxenda] AdvReac Unknown Nausea & Verified 09/21/23 22:48 Vomiting NSAIDS (Non-Steroidal AdvReac Unknown Nausea & Verified 09/21/23 22:48 Anti-Inflamma Vomiting aspirin AdvReac Nausea & Verified 09/21/23 22:48 Vomiting with high doses azithromycin AdvReac Vomiting Verified 09/21/23 22:48 naproxen [From Naprosyn] AdvReac Nausea & Verified 09/21/23 22:48 Vomiting Physical Exam Vitals: Vital Signs Temp Pulse Pulse Pulse Resp BP BP 09/22/23 09:37 84 09/22/23 09:19 88 09/22/23 07:27 98.3 F 82 17 116/69 09/22/23 01:40 74 18 113/51 09/22/23 01:20 97.4 F L 79 18 107/66 09/21/23 23:56 71 18 125/64 09/21/23 14:19 97.6 F 68 16 112/60 Pulse Ox 09/22/23 09:37 09/22/23 09:19 09/22/23 07:27 94 L 09/22/23 01:40 97 09/22/23 01:20 92 L 09/21/23 23:56 96 09/21/23 14:19 95 Intake and Output 09/21/23 09/22/23 09/22/23 22:59 06:59 14:59 Output Total 250 Balance -250 Output: Urine 250 Other: Voiding Method Toilet External Catheter Weight 113.398 kg General appearance: alert, in no apparent distress Head exam: Present: atraumatic, normocephalic, normal inspection Eye exam: Present: normal appearance, PERRL, EOMI. Absent: scleral icterus, conjunctival injection, periorbital swelling ENT exam: Present: normal exam, mucous membranes moist Neck exam: Present: normal inspection. Absent: tenderness, meningismus, lymphadenopathy Respiratory exam: Present: normal lung sounds bilaterally. Absent: respiratory distress, wheezes, rales, rhonchi, stridor Cardiovascular Exam: Present: regular rate, normal rhythm, normal heart sounds. Absent: systolic murmur, diastolic murmur, rubs, gallop, clicks GI/Abdominal exam: Present: soft, normal bowel sounds. Absent: distended, tenderness, guarding, rebound, rigid Extremities exam: Present: normal inspection, full ROM, normal capillary refill. Absent: tenderness, pedal edema, joint swelling, calf tenderness Back exam: Present: normal inspection Neurological exam: Present: alert, oriented X3, CN II-XII intact Psychiatric exam: Present: normal affect, normal mood Skin exam: Present: warm, dry, intact, normal color. Absent: rash Results CBC & Chem 7: 09/22/23 05:52 09/22/23 17:02 Labs: Abnormal Lab Results - Last 24 Hours (Table) 09/21/23 09/21/23 09/21/23 Range/Units 15:59 15:59 21:20 RBC 3.49 L (3.80-5.40) m/uL Hgb 11.2 L (11.4-16.0) gm/dL Hct (34.0-46.0) % RDW 16.8 H (11.5-15.5) % Plt Count 139 L (150-450) k/uL Sodium 132 L (137-145) mmol/L Potassium 5.4 H (3.5-5.1) mmol/L BUN 30 H (7-17) mg/dL Creatinine 1.35 H (0.52-1.04) mg/dL Glucose 177 H (74-99) mg/dL POC Glucose (mg/dL) (70-110) mg/dL Calcium 8.3 L (8.4-10.2) mg/dL Magnesium (1.6-2.3) mg/dL AST 56 H (14-36) U/L ALT 43 H (4-34) U/L Alkaline Phosphatase 389 H (38-126) U/L Total Protein (6.3-8.2) g/dL Albumin (3.5-5.0) g/dL Urine Glucose (UA) 1+ H (Negative) 09/22/23 09/22/23 09/22/23 Range/Units 00:06 05:52 05:52 RBC 3.13 L (3.80-5.40) m/uL Hgb 10.2 L (11.4-16.0) gm/dL Hct 31.2 L (34.0-46.0) % RDW 16.9 H (11.5-15.5) % Plt Count 117 L (150-450) k/uL Sodium 132 L (137-145) mmol/L Potassium 6.4 H* (3.5-5.1) mmol/L BUN 28 H (7-17) mg/dL Creatinine 1.20 H (0.52-1.04) mg/dL Glucose 153 H (74-99) mg/dL POC Glucose (mg/dL) (70-110) mg/dL Calcium 7.8 L (8.4-10.2) mg/dL Magnesium 2.5 H 2.4 H (1.6-2.3) mg/dL AST 59 H (14-36) U/L ALT 38 H (4-34) U/L Alkaline Phosphatase 312 H (38-126) U/L Total Protein 6.2 L (6.3-8.2) g/dL Albumin 3.0 L (3.5-5.0) g/dL Urine Glucose (UA) (Negative) 09/22/23 09/22/23 09/22/23 Range/Units 05:54 08:59 09:53 RBC (3.80-5.40) m/uL Hgb (11.4-16.0) gm/dL Hct (34.0-46.0) % RDW (11.5-15.5) % Plt Count (150-450) k/uL Sodium (137-145) mmol/L Potassium (3.5-5.1) mmol/L BUN (7-17) mg/dL Creatinine (0.52-1.04) mg/dL Glucose (74-99) mg/dL POC Glucose (mg/dL) 156 H 362 H 324 H (70-110) mg/dL Calcium (8.4-10.2) mg/dL Magnesium (1.6-2.3) mg/dL AST (14-36) U/L ALT (4-34) U/L Alkaline Phosphatase (38-126) U/L Total Protein (6.3-8.2) g/dL Albumin (3.5-5.0) g/dL Urine Glucose (UA) (Negative) Thrombosis Risk Factor Assmnt - Choose All That Apply Any of the Below Risk Factors Present?: Yes Each Factor Represents 1 point: Abnormal pulmonary function (COPD) Each Risk Factor Represents 2 Points: Age 61-74 years Each Risk Factor Represents 3 Points: Positive Factor V Leiden, History of DVT/PE Thrombosis Risk Factor Assessment Total Risk Factor Score: 9 Thrombosis Risk Factor Assessment Level: High Risk Assessment and Plan Assessment: 1. UTI; failing outpatient treatment; given use of multiple antibiotics, patient has been placed on IV daptomycin and Levaquin; further recommendations once urine culture is available; ID is consulted 2. Bilateral lower extremity cellulitis; patient has been placed on IV daptomycin and Levaquin; we will monitor CBC, CRP and procalcitonin; ID is consulted 3. Acute renal injury; IV fluid hydration with normal saline; will monitor strict PATRICIA's, daily weights, renal function electrolytes; avoid nephrotoxins and hypotension; consult nephrology 4. Hyperkalemia; patient received hyperkalemia cocktail with D50, IV insulin, albuterol nebulizer treatment, calcium chloride; we will continue to monitor potassium levels closely and treat as indicated 5. Weakness/debility; likely multifactorial related to LIAM, UTI; consult PT/OT 6. Hypertension; lisinopril 10 mg daily 7. Hyperlipidemia; Zetia 10 mg daily 8. Hypothyroidism; levothyroxine 300 mcg daily 9. Seizure disorder; Mysoline 125 mg twice daily 10. Diabetes mellitus with long-term insulin use; continue home dose of Lantus 50 units subcu twice daily; monitor Accu-Cheks before every meal and at bedtime with insulin sliding scale DVT prophylaxis; SCDs/subcu heparin CODE STATUS; full code
--- NOTE | 2023-09-22 20:25 | P.NPCON ---
History of Present Illness - Reason for Consult Consult date: 09/22/23 - History of Present Illness This is a 68-year-old female who presents to the emergency department for failed outpatient management of the cellulitis. She recently treated outpatient but had persistent worsening left leg redness and swelling and was told to come to hospital for IV antibiotics. She does take Lisinopril at home but denies any NSAID use. She currently denies any other complaints. VS stable. HEENT: No JVD. HEART: regular rate and rhythm. Abdomen: soft, non-tender, non-distended Ext: LLE erythema and edema Past Medical History Past Medical History: Blood Disorder, Cancer, Diabetes Mellitus, Deep Vein Thrombosis (DVT), GERD/Reflux, Hyperlipidemia, Hypertension, Myocardial Infarction (CO), Neurologic Disorder, Osteoarthritis (OA), Pulmonary Embolus (PE), Thyroid Disorder Additional Past Medical History / Comment(s): Factor 5 leiden, DVT L leg, PE L lung, MIs x 5, palpitations, IDDM type II, neuropathy bilateral legs/feet, lymphedema L leg, charcot syndrome L foot, chronic low back pain, bilateral sciatica,hx bronchitis, anemia, hypothyroid, hx UTI, IBS, sinus problems, worsening tremors, "stomach shivering inside" plans to f/u with pcp. skin cancer removal. hx of pneumonia long ago, pelvic fx Last Myocardial Infarction Date:: January 2020 History of Any Multi-Drug Resistant Organisms: VRE Date of last positivie culture/infection: 08/24/23 MDRO Source:: Urine Past Surgical History: Appendectomy, Cholecystectomy, Heart Catheterization With Stent, Hernia Repair, Hysterectomy, Tonsillectomy Additional Past Surgical History / Comment(s): Bilateral salpingectomy, bilateral oophorectomy, abdominal hernia surgeries, L foot fracture, bilateral cataract removals, epidural injections with last on 01/20/20 lumbar, LAST PROCEDURE 04/19/21 Past Anesthesia/Blood Transfusion Reactions: No Reported Reaction Additional Past Anesthesia/Blood Transfusion Reaction / Comment(s): Pt has received blood in past without reaction. Date of Last Stent Placement:: January 2020 Past Psychological History: Anxiety, Depression, Panic Disorder Additional Psychological History / Comment(s): Pt resides with her spouse. severe panic attacks Smoking Status: Former smoker Past Alcohol Use History: None Reported Additional Past Alcohol Use History / Comment(s): STARTED SMOKING AT AGE 20quit smoking 2012, smoked 1ppd Past Drug Use History: None Reported - Past Family History Mother Family Medical History: COPD Additional Family Medical History / Comment(s): Mother was a smoker. Father Family Medical History: Cancer Additional Family Medical History / Comment(s): Lung cancer. Father was a smoker. Son(s) Family Medical History: Deep Vein Thrombosis (DVT) Medications and Allergies Home Medications Medication Instructions Recorded Confirmed Type Clopidogrel [Plavix] 75 mg PO DAILY 07/07/19 09/21/23 History traZODone HCL [Desyrel] 200 mg PO HS 07/07/19 09/21/23 History Ezetimibe [Zetia] 10 mg PO DAILY 30 Days #30 tab 01/30/20 09/21/23 Rx Insulin Glargine,Hum.rec.anlog 50 units SQ BID 06/09/21 09/21/23 History [Lantus Solostar Pen] Levothyroxine Sodium [Synthroid] 300 mcg PO DAILY 08/30/21 09/21/23 History Metoclopramide [Reglan] 5 mg PO QID PRN 09/10/21 09/21/23 History diphenhydrAMINE HCL [Benadryl] 25 mg PO DAILY PRN 06/21/23 09/21/23 History Primidone [Mysoline] 125 mg PO BID #60 tab 06/22/23 09/21/23 Rx ALPRAZolam [Xanax] 2 mg PO TID 09/21/23 09/21/23 History Aspirin EC [Ecotrin Low Dose] 81 mg PO DAILY 09/21/23 09/21/23 History Insulin Lispro [humaLOG Kwikpen] See Protocol SQ AC-TID 09/21/23 09/21/23 Histo ry Levofloxacin [Levaquin] 500 mg PO DIRECTED 09/21/23 09/21/23 History Metoprolol Succinate (ER) [Toprol 25 mg PO DAILY 09/21/23 09/21/23 History Xl] lisinopriL [Prinivil] 10 mg PO DAILY 09/21/23 09/21/23 History metOLazone [Zaroxolyn] 5 mg PO DAILY 09/21/23 09/21/23 History oxyCODONE HCL [oxyCODONE HCL (IR)] 10 mg PO TID 09/21/23 09/21/23 History Allergies Allergy/AdvReac Type Severity Reaction Status Date / Time Iodinated Contrast Media Allergy Rash/Hives Verified 09/21/23 22:48 Iodine and Iodide Containing Allergy Rash/Hives Verified 09/21/23 22:48 Produc liraglutide [From Saxenda] AdvReac Unknown Nausea & Verified 09/21/23 22:48 Vomiting NSAIDS (Non-Steroidal AdvReac Unknown Nausea & Verified 09/21/23 22:48 Anti-Inflamma Vomiting aspirin AdvReac Nausea & Verified 09/21/23 22:48 Vomiting with high doses azithromycin AdvReac Vomiting Verified 09/21/23 22:48 naproxen [From Naprosyn] AdvReac Nausea & Verified 09/21/23 22:48 Vomiting Physical Exam Vitals: Vital Signs Temp Pulse Pulse Pulse Resp BP BP 09/22/23 09:37 84 09/22/23 09:19 88 09/22/23 07:27 98.3 F 82 17 116/69 09/22/23 01:40 74 18 113/51 09/22/23 01:20 97.4 F L 79 18 107/66 09/21/23 23:56 71 18 125/64 09/21/23 14:19 97.6 F 68 16 112/60 Pulse Ox 09/22/23 09:37 09/22/23 09:19 09/22/23 07:27 94 L 09/22/23 01:40 97 09/22/23 01:20 92 L 09/21/23 23:56 96 09/21/23 14:19 95 Intake and Output 09/21/23 09/22/23 09/22/23 22:59 06:59 14:59 Output Total 250 Balance -250 Output: Urine 250 Other: Voiding Method Toilet External Catheter Weight 113.398 kg Results - Lab Results Most recent lab results Calcium 7.8 mg/dL (8.4-10.2) L 09/22/23 05:52 Phosphorus 3.7 mg/dL (2.5-4.5) 09/22/23 05:52 Magnesium 2.4 mg/dL (1.6-2.3) H 09/22/23 05:52 09/22/23 05:52 09/22/23 17:02 Assessment and Plan Plan: Assessment: 1. Hyperkalemia, unclear etiology. No acidosis or LIAM, PVR negative. Repeat potassium confirmed elevated. Possibly related to hyperglycemia. 2. LLE Cellulitis 3. 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
[2023-09-22] MEDS ORDERED: LEVOFLOXACIN 750MG-D5W PMX 750 MG in DEXTROSE/WATER 1 150ML.BAG IVPB SCH (21:00)
[2023-09-22 21:24] LABS: Glucose,Whole Blood 329 mg/dL (70-110)
--- NOTE | 2023-09-22 22:16 | P.CONS ---
History of Present Illness - Reason for Consult Consult date: 09/22/23 - History of Present Illness Patient is a 68-year-old female with a past medical history significant for diabetes mellitus hypertension hyperlipidemia CO DVT history of recurrent UTI presenting to the hospital for evaluation of failure of outpatient antibiotic treatment for her UTI apparently patient was complaining of urinary burning frequency and did have a UA done with the last available on [employer] system is a VRE in the E. coli that was done 08/24/2023 has been treated with antibiotic without improvement as the patient was in the hospital with the symptoms the patient denies any headache or URI symptoms no chest pain or shortness with occasional cough some nausea but no vomiting no abdominal pain no flank pain patient was not have significant swelling to bilateral extremities patient refers family with redness patient be complaining of pain to the left lower extremity more of a dull aching to sharp mild to moderate intensity without any radiation with associated swelling redness no open wound or any drainage patient on presentation to the hospital was afebrile and no fever has been called subsequently patient was not tachycardic or hypotensive and not hypoxic patient did have white count of 6.9 BUN/creatinine mildly elevated liver isms are mildly elevated urine has been negative patient was started on daptomycin and Levaquin infectious disease was consulted for further management of antibiotic therapy Past Medical History Past Medical History: Blood Disorder, Cancer, Diabetes Mellitus, Deep Vein Thrombosis (DVT), GERD/Reflux, Hyperlipidemia, Hypertension, Myocardial Infarction (CO), Neurologic Disorder, Osteoarthritis (OA), Pulmonary Embolus (PE), Thyroid Disorder Additional Past Medical History / Comment(s): Factor 5 leiden, DVT L leg, PE L lung, MIs x 5, palpitations, IDDM type II, neuropathy bilateral legs/feet, lymphedema L leg, charcot syndrome L foot, chronic low back pain, bilateral sciatica,hx bronchitis, anemia, hypothyroid, hx UTI, IBS, sinus problems, worsening tremors, "stomach shivering inside" plans to f/u with pcp. skin cancer removal. hx of pneumonia long ago, pelvic fx Last Myocardial Infarction Date:: January 2020 History of Any Multi-Drug Resistant Organisms: VRE Year Discovered:: 08/24/23 MDRO Source:: Urine Past Surgical History: Appendectomy, Cholecystectomy, Heart Catheterization With Stent, Hernia Repair, Hysterectomy, Tonsillectomy Additional Past Surgical History / Comment(s): Bilateral salpingectomy, bilateral oophorectomy, abdominal hernia surgeries, L foot fracture, bilateral cataract removals, epidural injections with last on 01/20/20 lumbar, LAST PROCEDURE 04/19/21 Past Anesthesia/Blood Transfusion Reactions: No Reported Reaction Additional Past Anesthesia/Blood Transfusion Reaction / Comm: Pt has received blood in past without reaction. Date of Last Stent Placement:: January 2020 Past Psychological History: Anxiety, Depression, Panic Disorder Additional Psychological History / Comment(s): Pt resides with her spouse. severe panic attacks Smoking Status: Former smoker Past Alcohol Use History: None Reported Additional Past Alcohol Use History / Comment(s): STARTED SMOKING AT AGE 20quit smoking 2012, smoked 1ppd Past Drug Use History: None Reported - Past Family History Mother Family Medical History: COPD Additional Family Medical History / Comment(s): Mother was a smoker. Father Family Medical History: Cancer Additional Family Medical History / Comment(s): Lung cancer. Father was a smoker. Son(s) Family Medical History: Deep Vein Thrombosis (DVT) Medications and Allergies Home Medications Medication Instructions Recorded Confirmed Type Clopidogrel [Plavix] 75 mg PO DAILY 07/07/19 09/21/23 History traZODone HCL [Desyrel] 200 mg PO HS 07/07/19 09/21/23 History Ezetimibe [Zetia] 10 mg PO DAILY 30 Days #30 tab 01/30/20 09/21/23 Rx Insulin Glargine,Hum.rec.anlog 50 units SQ BID 06/09/21 09/21/23 History [Lantus Solostar Pen] Levothyroxine Sodium [Synthroid] 300 mcg PO DAILY 08/30/21 09/21/23 History Metoclopramide [Reglan] 5 mg PO QID PRN 09/10/21 09/21/23 History diphenhydrAMINE HCL [Benadryl] 25 mg PO DAILY PRN 06/21/23 09/21/23 History Primidone [Mysoline] 125 mg PO BID #60 tab 06/22/23 09/21/23 Rx ALPRAZolam [Xanax] 2 mg PO TID 09/21/23 09/21/23 History Aspirin EC [Ecotrin Low Dose] 81 mg PO DAILY 09/21/23 09/21/23 History Insulin Lispro [humaLOG Kwikpen] See Protocol SQ AC-TID 09/21/23 09/21/23 History Levofloxacin [Levaquin] 500 mg PO DIRECTED 09/21/23 09/21/23 History Metoprolol Succinate (ER) [Toprol 25 mg PO DAILY 09/21/23 09/21/23 History Xl] lisinopriL [Prinivil] 10 mg PO DAILY 09/21/23 09/21/23 History metOLazone [Zaroxolyn] 5 mg PO DAILY 09/21/23 09/21/23 History oxyCODONE HCL [oxyCODONE HCL (IR)] 10 mg PO TID 09/21/23 09/21/23 History Allergies Allergy/AdvReac Type Severity Reaction Status Date / Time Iodinated Contrast Media Allergy Rash/Hives Verified 09/21/23 22:48 Iodine and Iodide Containing Allergy Rash/Hives Verified 09/21/23 22:48 Produc liraglutide [From Saxenda] AdvReac Unknown Nausea & Verified 09/21/23 22:48 Vomiting NSAIDS (Non-Steroidal AdvReac Unknown Nausea & Verified 09/21/23 22:48 Anti-Inflamma Vomiting aspirin AdvReac Nausea & Verified 09/21/23 22:48 Vomiting with high doses azithromycin AdvReac Vomiting Verified 09/21/23 22:48 naproxen [From Naprosyn] AdvReac Nausea & Verified 09/21/23 22:48 Vomiting Physical Exam Vitals: Vital Signs Temp Pulse Pulse Pulse Resp BP BP 09/22/23 09:37 84 09/22/23 09:19 88 09/22/23 07:27 98.3 F 82 17 116/69 09/22/23 01:40 74 18 113/51 09/22/23 01:20 97.4 F L 79 18 107/66 09/21/23 23:56 71 18 125/64 09/21/23 14:19 97.6 F 68 16 112/60 Pulse Ox 09/22/23 09:37 09/22/23 09:19 09/22/23 07:27 94 L 09/22/23 01:40 97 09/22/23 01:20 92 L 09/21/23 23:56 96 09/21/23 14:19 95 Intake and Output 09/21/23 09/22/23 09/22/23 22:59 06:59 14:59 Output Total 250 Balance -250 Output: Urine 250 Other: Voiding Method Toilet External Catheter Weight 113.398 kg Results CBC & Chem 7: 09/22/23 05:52 09/22/23 17:02 Labs: Abnormal Lab Results - Last 24 Hours (Table) 09/21/23 09/21/23 09/21/23 Range/Units 15:59 15:59 21:20 RBC 3.49 L (3.80-5.40) m/uL Hgb 11.2 L (11.4-16.0) gm/dL Hct (34.0-46.0) % RDW 16.8 H (11.5-15.5) % Plt Count 139 L (150-450) k/uL Sodium 132 L (137-145) mmol/L Potassium 5.4 H (3.5-5.1) mmol/L BUN 30 H (7-17) mg/dL Creatinine 1.35 H (0.52-1.04) mg/dL Glucose 177 H (74-99) mg/dL POC Glucose (mg/dL) (70-110) mg/dL Calcium 8.3 L (8.4-10.2) mg/dL Magnesium (1.6-2.3) mg/dL AST 56 H (14-36) U/L ALT 43 H (4-34) U/L Alkaline Phosphatase 389 H (38-126) U/L Total Protein (6.3-8.2) g/dL Albumin (3.5-5.0) g/dL Urine Glucose (UA) 1+ H (Negative) 09/22/23 09/22/23 09/22/23 Range/Units 00:06 05:52 05:52 RBC 3.13 L (3.80-5.40) m/uL Hgb 10.2 L (11.4-16.0) gm/dL Hct 31.2 L (34.0-46.0) % RDW 16.9 H (11.5-15.5) % Plt Count 117 L (150-450) k/uL Sodium 132 L (137-145) mmol/L Potassium 6.4 H* (3.5-5.1) mmol/L BUN 28 H (7-17) mg/dL Creatinine 1.20 H (0.52-1.04) mg/dL Glucose 153 H (74-99) mg/dL POC Glucose (mg/dL) (70-110) mg/dL Calcium 7.8 L (8.4-10.2) mg/dL Magnesium 2.5 H 2.4 H (1.6-2.3) mg/dL AST 59 H (14-36) U/L ALT 38 H (4-34) U/L Alkaline Phosphatase 312 H (38-126) U/L Total Protein 6.2 L (6.3-8.2) g/dL Albumin 3.0 L (3.5-5.0) g/dL Urine Glucose (UA) (Negative) 09/22/23 09/22/23 09/22/23 Range/Units 05:54 08:59 09:53 RBC (3.80-5.40) m/uL Hgb (11.4-16.0) gm/dL Hct (34.0-46.0) % RDW (11.5-15.5) % Plt Count (150-450) k/uL Sodium (137-145) mmol/L Potassium (3.5-5.1) mmol/L BUN (7-17) mg/dL Creatinine (0.52-1.04) mg/dL Glucose (74-99) mg/dL POC Glucose (mg/dL) 156 H 362 H 324 H (70-110) mg/dL Calcium (8.4-10.2) mg/dL Magnesium (1.6-2.3) mg/dL AST (14-36) U/L ALT (4-34) U/L Alkaline Phosphatase (38-126) U/L Total Protein (6.3-8.2) g/dL Albumin (3.5-5.0) g/dL Urine Glucose (UA) (Negative) Assessment and Plan Plan: 1patient is presenting to the hospital multiple symptoms including urinary symptoms of burning frequency and apparently recent outpatient urine culture positive for VRE and E. coli however the patient did have a negative UA on this admission clinical without UTI 2-patient did have a bilateral lower extremity cellulitis specially to the left lower extremity with diffuse swelling redness likely streptococcal disease 3-discontinue Levaquin and daptomycin 4-marked the area of the redness 5-start the patient cefazolin 2 g every 8 hours We will follow on clinical condition and cultures to further adjust medication if needed Thank you for this consultation we will follow the patient along with you Dictation was produced using [employer] dictation software. please excuse any grammatical, word or spelling errors. Time with Patient: Greater than 30
[2023-09-22] MEDS: SODIUM ZIRCONIUM CYCLOSILICATE 10 GM PACKET PO SCH (23:05)
[2023-09-22 23:11] LABS: Glucose,Whole Blood 303 mg/dL (70-110)
[2023-09-22] MEDS: ALPRAZolam 1 MG TAB PO SCH (23:17)
[2023-09-23 06:16] LABS: Glucose,Whole Blood 199 mg/dL (70-110)
[2023-09-23 09:50] LABS: Basophils # (A) 0.04 X 10*3/uL (0.00-0.10); Basophils % (A) 0.8 %; Eosinophils # (A) 0.15 X 10*3/uL (0.04-0.35); Eosinophils % (A) 2.8 %; HCT 30.6 % (39.6-50.0); HGB 9.2 g/dL (13.0-17.0); Lymphocytes # (A) 1.67 X 10*3/uL (0.90-5.00); Lymphocytes % (A) 31.4 %; MCH 30.5 pg (27.0-32.0); MCHC 30.1 g/dL (32.0-37.0); MCV 101.3 FL (80.0-97.0); Mean Platelet Volume 11.7 FL (9.5-12.2); Monocytes # (A) 0.39 X 10*3/uL (0.20-1.00); Monocytes % (A) 7.3 %; NRBC Per 100 WBC 0 X 10*3/uL (0.00-0.01); Neutrophils # (A) 3.06 X 10*3/uL (1.80-7.70); Neutrophils % (A) 57.5 %; Platelet Count 130 X 10*3/uL (140-440); RBC 3.02 X 10*6/uL (4.40-5.60); WBC 5.32 X 10*3/uL (4.50-10.00)
[2023-09-23 10:09] LABS: Blood Urea Nitrogen 25.2 mg/dL (9.0-27.0); Calcium 7.5 mg/dL (8.7-10.3); Carbon Dioxide 29.9 mmol/L (21.6-31.8); Chloride 100 mmol/L (96-109); Glucose 197 mg/dL (70-110); Potassium 5.2 mmol/L (3.5-5.5); Sodium 134 mmol/L (135-145)
[2023-09-23 11:40] LABS: Glucose,Whole Blood 312 mg/dL (70-110)
--- NOTE | 2023-09-23 12:35 | P.PN ---
Subjective Progress Note Date: 09/23/23 Patient seen for follow-up for hyperkalemia and CK. States that she's feeling better today and her redness of left lower extremity has improved with antibiotics. She denies any other current complaints and is hoping to go home tomorrow if able. VS stable. HEENT: No JVD. HEART: regular rate and rhythm. Abdomen: soft, non-tender, non-distended Ext: LLE erythema and edema Objective - Vital Signs Vital signs: Vital Signs Temp 98.4 F 09/23/23 07:21 Pulse 94 09/23/23 07:21 Resp 19 09/23/23 07:21 BP 128/69 09/23/23 07:21 Pulse Ox 92 L 09/23/23 07:21 FiO2 Intake & Output 09/22/23 09/23/23 09/23/23 18:59 06:59 18:59 Output Total 759 1650 Balance -759 -1650 Output: Urine 700 1650 Post Void Residual 59 Other: Voiding Method External Catheter External Catheter External Catheter # Voids 4 - Labs CBC & Chem 7: 09/23/23 04:35 09/23/23 04:35 Labs: Abnormal Lab Results - Last 24 Hours (Table) 09/22/23 09/22/23 09/22/23 Range/Units 11:39 14:04 14:53 RBC (4.40-5.60) X 10*6/uL Hgb (13.0-17.0) g/dL Hct (39.6-50.0) % MCV (80.0-97.0) FL MCHC (32.0-37.0) g/dL RDW (11.5-14.5) % Plt Count (140-440) X 10*3/uL Sodium 133 L (137-145) mmol/L Potassium 6.5 H* 6.4 H* (3.5-5.1) mmol/L Est GFR (CKD-EPI) (>=60) Glucose (70-110) mg/dL POC Glucose (mg/dL) 233 H (70-110) mg/dL Calcium (8.7-10.3) mg/dL 09/22/23 09/22/23 09/22/23 Range/Units 16:34 17:02 21:23 RBC (4.40-5.60) X 10*6/uL Hgb (13.0-17.0) g/dL Hct (39.6-50.0) % MCV (80.0-97.0) FL MCHC (32.0-37.0) g/dL RDW (11.5-14.5) % Plt Count (140-440) X 10*3/uL Sodium (137-145) mmol/L Potassium 6.6 H* (3.5-5.1) mmol/L Est GFR (CKD-EPI) (>=60) Glucose (70-110) mg/dL POC Glucose (mg/dL) 226 H 329 H (70-110) mg/dL Calcium (8.7-10.3) mg/dL 09/22/23 09/23/23 09/23/23 Range/Units 23:09 04:35 04:35 RBC 3.02 L (4.40-5.60) X 10*6/uL Hgb 9.2 L (13.0-17.0) g/dL Hct 30.6 L (39.6-50.0) % MCV 101.3 H (80.0-97.0) FL MCHC 30.1 L (32.0-37.0) g/dL RDW 17.0 H (11.5-14.5) % Plt Count 130 L (140-440) X 10*3/uL Sodium 134 L (137-145) mmol/L Potassium (3.5-5.1) mmol/L Est GFR (CKD-EPI) 50 L (>=60) Glucose 197 H (70-110) mg/dL POC Glucose (mg/dL) 303 H (70-110) mg/dL Calcium 7.5 L (8.7-10.3) mg/dL 09/23/23 09/23/23 09/23/23 Range/Units 04:35 06:10 11:38 RBC (4.40-5.60) X 10*6/uL Hgb (13.0-17.0) g/dL Hct (39.6-50.0) % MCV (80.0-97.0) FL MCHC (32.0-37.0) g/dL RDW (11.5-14.5) % Plt Count (140-440) X 10*3/uL Sodium (137-145) mmol/L Potassium 5.2 H (3.5-5.1) mmol/L Est GFR (CKD-EPI) (>=60) Glucose (70-110) mg/dL POC Glucose (mg/dL) 199 H 312 H (70-110) mg/dL Calcium (8.7-10.3) mg/dL Assessment and Plan Plan: Assessment: 1. Hyperkalemia, related to hyperglycemia due to uncontrolled diabetes and sett ing of acute infection. 2. LLE Cellulitis 3. 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 Currently with good urine outpu t. 4. Uncontrolled type 2 diabetes Plan: Repeat potassium this morning was improved to 5.2 Recommend strict control of glucose in light of infection is likely contributing to her elevated potassium level. Continue Lokelma 10 g 3 times a day for 1 more day. Creatinine slightly elevated today 1.5, will check CK level given she is on daptomycin as this can cause rhabdomyolysis. IV ABX per primary If potassium and kidney function stable tomorrow she is clear for discharge from my standpoint.
[2023-09-23 16:44] LABS: Glucose,Whole Blood 348 mg/dL (70-110)
[2023-09-23 19:24] LABS: Glucose,Whole Blood 410 mg/dL (70-110)
[2023-09-23] MEDS ORDERED: LEVOFLOXACIN 750MG-D5W PMX 750 MG in DEXTROSE/WATER 1 150ML.BAG IVPB SCH (21:00)
[2023-09-23 21:31] LABS: Glucose,Whole Blood 391 mg/dL (70-110)
--- NOTE | 2023-09-23 22:48 | P.PN ---
Subjective Progress Note Date: 09/23/23 Principal diagnosis: Reason for follow-up is bilateral lower extremity cellulitis Patient is a 68-year-old female with a past medical history significant for diabetes mellitus hypertension hyperlipidemia MT DVT history of recurrent UTI presenting to the hospital for evaluation of failure of outpatient antibiotic treatment for her UTI apparently patient was complaining of urinary burning frequency however the patient did have a negative UA on admission to the hospital also noticed to have bilateral lower extremity cellulitis patient with a left leg. On today's evaluation that is 09/23/2023,the patient denies any fever or any chills, patient is breathing comfortably on room air, the patient denies chest pain shortness of breath and no significant cough, patient denies abdominal pain, no nausea vomiting or diarrhea. Patient is recalling some burning of the urine overall swelling redness of the leg has decreased in intensity. Patient did have a white count of 5.32 creatinine is 1.5 blood cultures pending Objective - Vital Signs Vital signs: Vital Signs Temp 98.4 F 09/23/23 07:21 Pulse 94 09/23/23 07:21 Resp 19 09/23/23 07:21 BP 128/69 09/23/23 07:21 Pulse Ox 92 L 09/23/23 07:21 FiO2 Intake & Output 09/22/23 09/23/23 09/23/23 18:59 06:59 18:59 Output Total 759 1650 Balance -759 -1650 Output: Urine 700 1650 Post Void Residual 59 Other: Voiding Method External Catheter External Catheter # Voids 4 - Exam GENERAL DESCRIPTION: An elderly female up in the bed in no distress RESPIRATORY SYSTEM: Unlabored breathing , decreased breath sounds at bases HEART: S1 S2 regular rate and rhythm , ABDOMEN: Soft , no tenderness EXTREMITIES: Bilateral extremity swelling redness slightly decreased - Labs CBC & Chem 7: 09/23/23 04:35 09/23/23 16:13 Labs: Abnormal Lab Results - Last 24 Hours (Table) 09/22/23 09/22/23 09/22/23 Range/Units 11:39 11:53 14:04 RBC (4.40-5.60) X 10*6/uL Hgb (13.0-17.0) g/dL Hct (39.6-50.0) % MCV (80.0-97.0) FL MCHC (32.0-37.0) g/dL RDW (11.5-14.5) % Plt Count (140-440) X 10*3/uL Sodium 133 L (137-145) mmol/L Potassium 6.5 H* 6.4 H* (3.5-5.1) mmol/L Est GFR (CKD-EPI) (>=60) Glucose (70-110) mg/dL POC Glucose (mg/dL) 210 H (70-110) mg/dL Calcium (8.7-10.3) mg/dL 09/22/23 09/22/23 09/22/23 Range/Units 14:53 16:34 17:02 RBC (4.40-5.60) X 10*6/uL Hgb (13.0-17.0) g/dL Hct (39.6-50.0) % MCV (80.0-97.0) FL MCHC (32.0-37.0) g/dL RDW (11.5-14.5) % Plt Count (140-440) X 10*3/uL Sodium (137-145) mmol/L Potassium 6.6 H* (3.5-5.1) mmol/L Est GFR (CKD-EPI) (>=60) Glucose (70-110) mg/dL POC Glucose (mg/dL) 233 H 226 H (70-110) mg/dL Calcium (8.7-10.3) mg/dL 09/22/23 09/22/23 09/23/23 Range/Units 21:23 23:09 04:35 RBC 3.02 L (4.40-5.60) X 10*6/uL Hgb 9.2 L (13.0-17.0) g/dL Hct 30.6 L (39.6-50.0) % MCV 101.3 H (80.0-97.0) FL MCHC 30.1 L (32.0-37.0) g/dL RDW 17.0 H (11.5-14.5) % Plt Count 130 L (140-440) X 10*3/uL Sodium (137-145) mmol/L Potassium (3.5-5.1) mmol/L Est GFR (CKD-EPI) (>=60) Glucose (70-110) mg/dL POC Glucose (mg/dL) 329 H 303 H (70-110) mg/dL Calcium (8.7-10.3) mg/dL 09/23/23 09/23/23 09/23/23 Range/Units 04:35 04:35 06:10 RBC (4.40-5.60) X 10*6/uL Hgb (13.0-17.0) g/dL Hct (39.6-50.0) % MCV (80.0-97.0) FL MCHC (32.0-37.0) g/dL RDW (11.5-14.5) % Plt Count (140-440) X 10*3/uL Sodium 134 L (137-145) mmol/L Potassium 5.2 H (3.5-5.1) mmol/L Est GFR (CKD-EPI) 50 L (>=60) Glucose 197 H (70-110) mg/dL POC Glucose (mg/dL) 199 H (70-110) mg/dL Calcium 7.5 L (8.7-10.3) mg/dL Assessment and Plan (1) Bilateral lower leg cellulitis Current Visit: Yes Status: Acute Code(s): L03.116 - CELLULITIS OF LEFT LOWER LIMB; L03.115 - CELLULITIS OF RIGHT LOWER LIMB SNOMED Code(s): 039909548 Plan: 1patient is presenting to the hospital multiple symptoms including urinary symptoms of burning frequency and apparently recent outpatient urine culture positive for VRE and E. coli however the patient did have a negative UA on this admission clinical without UTI 2-patient did have a bilateral lower extremity cellulitis specially to the left lower extremity with diffuse swelling redness likely streptococcal disease 3- patient to continue with cefazolin 2 g every 8 hours, with persistent urinary symptoms questionable vaginal candidiasis we will give a dose of Diflucan and see response Multiple family members at the bedside questions were answered Dictation was produced using [employer] software. please excuse any grammatical, word or spelling errors. Time with Patient: Less than 30
[2023-09-24 06:12] LABS: Glucose,Whole Blood 412 mg/dL (70-110)
[2023-09-24 07:13] LABS: African American GFR (CKD) 56 (>60 ml/min/1.73 sqM); Anion Gap 3 mmol/L; Blood Urea Nitrogen 24 mg/dL (7-17); Calcium 7.6 mg/dL (8.4-10.2); Carbon Dioxide 29 mmol/L (22-30); Chloride 100 mmol/L (98-107); Glucose 378 mg/dL (74-99); Non-African American GFR(CKD) 48 (>60 ml/min/1.73 sqM); Potassium 4.9 mmol/L (3.5-5.1); Sodium 132 mmol/L (137-145)
[2023-09-24] MEDS: INSULIN DETEMIR (LEVEMIR) 100 UNIT/ML SYR SQ SCH (08:34)
[2023-09-24] MEDS: INSULIN ASPART (NovoLOG) 100 UNIT/ML VIAL SQ ONE (08:34)
[2023-09-24] MEDS: FLUCONAZOLE 150 MG TAB PO SCH (08:36)
[2023-09-24 11:54] LABS: Glucose,Whole Blood 365 mg/dL (70-110)
[2023-09-24] MEDS: INSULIN ASPART (NovoLOG) 100 UNIT/ML VIAL SQ SCH ×2 (12:18→18:17)
--- NOTE | 2023-09-24 12:37 | P.PN ---
Subjective Progress Note Date: 09/24/23 Principal diagnosis: Reason for follow-up is bilateral lower extremity cellulitis Patient is a 68-year-old female with a past medical history significant for diabetes mellitus hypertension hyperlipidemia MT DVT history of recurrent UTI presenting to the hospital for evaluation of failure of outpatient antibiotic treatment for her UTI apparently patient was complaining of urinary burning frequency however the patient did have a negative UA on admission to the hospital also noticed to have bilateral lower extremity cellulitis patient with a left leg. On today's evaluation that is 09/24/2023,the patient remains to be afebrile, patient is on 2 L nasal cannula supplemental oxygen however the patient apparently was noticed to be hypoxic after midnight and requiring nonrebreather 1 point and denies any shortness of breath no chest pain or cough.Patient denies having any nausea or vomiting, no abdominal pain and no diarrhea has been reported, all the swelling to the lower extremity has decreased. Patient did have a creatinine 1.16 no CBC done today blood pressure for pending Objective - Vital Signs Vital signs: Vital Signs Temp 98.6 F 09/24/23 07:09 Pulse 93 09/24/23 07:09 Resp 18 09/24/23 07:09 BP 121/73 09/24/23 07:09 Pulse Ox 96 09/24/23 07:09 FiO2 Intake & Output 09/23/23 09/24/23 09/24/23 18:59 06:59 18:59 Intake Total 650 Output Total 1500 Balance -850 Intake: Intake, IV Titration 650 Amount Sodium Chloride 0.9% 1, 600 000 ml @ 75 mls/hr IV . [id number] [facility] Rx#:[id number] ceFAZolin 2 gm In Sodium 50 Chloride 0.9% 50 ml @ 100 mls/hr IVPB Q12HR [facility] Rx #:[id number] Output: Urine 1500 Other: Voiding Method External Catheter Toilet External Catheter # Voids 8 - Exam GENERAL DESCRIPTION: An elderly female up in the bed in no distress RESPIRATORY SYSTEM: Unlabored breathing , decreased breath sounds at bases HEART: S1 S2 regular rate and rhythm , ABDOMEN: Soft , no tenderness EXTREMITIES: Bilateral extremity swelling redness slightly decreased - Labs CBC & Chem 7: 09/23/23 04:35 09/24/23 05:54 Labs: Abnormal Lab Results - Last 24 Hours (Table) 09/23/23 09/23/2309/23/24 Range/Units 04:35 16:13 16:43 Sodium (137-145) mmol/L Potassium 5.3 H (3.5-5.1) mmol/L BUN (7-17) mg/dL Creatinine (0.52-1.04) mg/dL Glucose (74-99) mg/dL POC Glucose (mg/dL) 348 H (70-110) mg/dL Hemoglobin A1c 8.1 H (<=6.0) % Calcium (8.4-10.2) mg/dL 09/23/23 09/23/23 09/24/23 Range/Units 19:23 21:24 05:54 Sodium 132 L (137-145) mmol/L Potassium (3.5-5.1) mmol/L BUN 24 H (7-17) mg/dL Creatinine 1.16 H (0.52-1.04) mg/dL Glucose 378 H (74-99) mg/dL POC Glucose (mg/dL) 410 H 391 H (70-110) mg/dL Hemoglobin A1c (<=6.0) % Calcium 7.6 L (8.4-10.2) mg/dL 09/24/23 09/24/23 Range/Units 06:10 11:53 Sodium (137-145) mmol/L Potassium (3.5-5.1) mmol/L BUN (7-17) mg/dL Creatinine (0.52-1.04) mg/dL Glucose (74-99) mg/dL POC Glucose (mg/dL) 412 H 365 H (70-110) mg/dL Hemoglobin A1c (<=6.0) % Calcium (8.4-10.2) mg/dL Microbiology - Last 24 Hours (Table) 09/21/23 22:48 Blood Culture - Preliminary Blood Assessment and Plan (1) Bilateral lower leg cellulitis Current Visit: Yes Status: Acute Code(s): L03.116 - CELLULITIS OF LEFT LOWER LIMB; L03.115 - CELLULITIS OF RIGHT LOWER LIMB SNOMED Code(s): 544481297 Plan: 1patient is presenting to the hospital multiple symptoms including urinary symptoms of burning frequency and apparently recent outpatient urine culture positive for VRE and E. coli however the patient did have a negative UA on this admission clinical without UTI 2-patient did have a bilateral lower extremity cellulitis specially to the left lower extremity with diffuse swelling redness likely streptococcal disease 3- patient to continue with cefazolin 2 g every 8 hours, with episode of significant hypoxemia after midnight we will obtain x-rays check a D-dimer may need further workup Dictation was produced using [employer] dictation software. please excuse any grammatical, word or spelling errors. Time with Patient: Less than 30
--- NOTE | 2023-09-24 13:23 | P.PN ---
Subjective Patient is seen for follow-up for acute kidney injury. Renal function has improved with creatinine down to 1.1 mg/dL. Maintained on IV fluids at 75 mL an hour. Objective - Vital Signs Vital signs: Vital Signs Temp 98.6 F 09/24/23 07:09 Pulse 93 09/24/23 07:09 Resp 18 09/24/23 07:09 BP 121/73 09/24/23 07:09 Pulse Ox 96 09/24/23 07:09 FiO2 Intake & Output 09/23/23 09/24/23 09/24/23 18:59 06:59 18:59 Intake Total 650 Output Total 1500 Balance -850 Intake: Intake, IV Titration 650 Amount Sodium Chloride 0.9% 1, 600 000 ml @ 75 mls/hr IV . [id number] [facility] Rx#:[id number] ceFAZolin 2 gm In Sodium 50 Chloride 0.9% 50 ml @ 100 mls/hr IVPB Q12HR [facility] Rx #:[id number] Output: Urine 1500 Other: Voiding Method External Catheter Toilet External Catheter # Voids 8 - Exam Patient is awake, comfortable, in no acute distress Examination of the heart S1 and S2 Examination of the lungs bilateral breath sounds are heard Abdomen is soft nontender Examination of lower extremity shows 1+ edema. Erythema noted bilateral low lower legs worse on the left side, improved since admission. - Labs CBC & Chem 7: 09/23/23 04:35 09/24/23 05:54 Labs: Abnormal Lab Results - Last 24 Hours (Table) 09/23/23 09/23/23 09/23/23 Range/Units 04:35 16:13 16:43 Sodium (137-145) mmol/L Potassium 5.3 H (3.5-5.1) mmol/L BUN (7-17) mg/dL Creatinine (0.52-1.04) mg/dL Glucose (74-99) mg/dL POC Glucose (mg/dL) 348 H (70-110) mg/dL Hemoglobin A1c 8.1 H (<=6.0) % Calcium (8.4-10.2) mg/dL 09/23/23 09/23/23 09/24/23 Range/Units 19:23 21:24 05:54 Sodium 132 L (137-145) mmol/L Potassium (3.5-5.1) mmol/L BUN 24 H (7-17) mg/dL Creatinine 1.16 H (0.52-1.04) mg/dL Glucose 378 H (74-99) mg/dL POC Glucose (mg/dL) 410 H 391 H (70-110) mg/dL Hemoglobin A1c (<=6.0) % Calcium 7.6 L (8.4-10.2) mg/dL 09/24/23 09/24/23 Range/Units 06:10 11:53 Sodium (137-145) mmol/L Potassium (3.5-5.1) mmol/L BUN (7-17) mg/dL Creatinine (0.52-1.04) mg/dL Glucose (74-99) mg/dL POC Glucose (mg/dL) 412 H 365 H (70-110) mg/dL Hemoglobin A1c (<=6.0) % Calcium (8.4-10.2) mg/dL Microbiology - Last 24 Hours (Table) 09/21/23 22:48 Blood Culture - Preliminary Blood Assessment and Plan Assessment: 1. Hyperkalemia, related to hyperglycemia due to uncontrolled diabetes and hyperglycemia. 2. LLE Cellulitis, improving 3. 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 Currently with good urine output. 4. Uncontrolled type 2 diabetes Plan: DC IV fluids Antibiotics as per ID. Repeat labs in a.m.
[2023-09-24] MEDS: diphenhydrAMINE 50 MG/ML 1 ML VIAL IVP STA (16:45)
[2023-09-24] MEDS: FAMOTIDINE 20 MG/2 ML VIAL IV STA (16:45)
[2023-09-24] MEDS: methylPREDNISolone SOD SUCCI 125 MG/2 ML VIAL IV STA (16:47)
[2023-09-24 17:00] LABS: Glucose,Whole Blood 430 mg/dL (70-110)
--- NOTE | 2023-09-24 18:19 | CDI ---
Documentation Clarification Form Date: 09/24/2023 06:10:24 PM From: Natasha Foley RN, CCDS Email: [email or web address] Admit Date: 09/21/2023 09:34:00 PM Patient Name: Rosalinda Brothers Visit Number: [id number] Discharge Date: ATTENTION: The Clinical Documentation Specialists (CDI) and [facility] Coding Staff appreciate your assistance in clarifying documentation. Please respond to the clarification below the line at the bottom and electronically sign. The CDI & [facility] Coding staff will review the response and follow-up if needed. Please note: Queries are made part of the Legal Health Record. If you have any questions, please contact the author of this message via ITS. Dr. Yvon Nation Cellulitis is documented in the H&P. Additional clarification regarding the type of cellulitis is requested. History/risk factors: HTN, HLD, hypothyroidism, DM. Admitted with cellulitis and UTI. Clinical Indicators: H&P: "Bilateral lower extremity cellulitis. Diabetes mellitus with long-term insulin use." 09/22 ID: "bilateral lower extremity cellulitis specially to the left lower extremity with diffuse swelling redness likely streptococcal disease." Treatment: IV Cefazolin 2gm Q8H 09/22-09/24; Insulin Aspart 6 units on 09/22; Insulin Levemir 12 units on 09/24; Regular insulin 10 units on 09/22 Please clarify the etiology of the cellulitis, if known: [ ] Cellulitis is a diabetic skin complication [ ] Cellulitis is not a diabetic skin complication [ ] Other, please specify: [ ##### ] Unable to determine MTDD
--- NOTE | 2023-09-24 18:26 | CT ---
EXAMINATION TYPE: CT chest angio for PE DATE OF EXAM: 09/24/2023 COMPARISON: NONE HISTORY: elevated d dimer CT DLP: 996.7 mGycm. Automated Exposure Control for Dose Reduction was Utilized. CONTRAST: CTA scan of the thorax is performed with IV Contrast, patient injected with 80ml mL of Isov ue 370. MIP Images are created on CT scanner and reviewed. 3D reconstructed images are created on an independent workstation and reviewed. FINDINGS: LUNGS: The lungs are grossly clear, there is no concerning parenchymal mass or nodule identified. T here is no pleural effusion or pneumothorax seen. The tracheobronchial tree is patent. MEDIASTINUM: There is satisfactory enhancement of the pulmonary artery and its branches, and there is no CT evidence for pulmonary embolism. There is no acute aortic process. There is mild/moderate card iomegaly, with a prominent volume of pericardial clavicles noted. No pericardial effusion. There are prominent multi focal coronary calcifications. There are no greater than 1 cm hilar or mediastinal lymph nodes. OTHER: No additional significant abnormality is seen. IMPRESSION: Negative for pulmonary embolus or other acute process. Prominent multifocal coronary calcifications with mild/moderate cardiomegaly.
[2023-09-24 21:02] LABS: Glucose,Whole Blood 477 mg/dL (70-110)
[2023-09-25 00:45] LABS: Glucose,Whole Blood 471 mg/dL (70-110)
[2023-09-25] MEDS ORDERED: DEXTROSE 50% SYRINGE 50 ML IVP PRN ×6 (01:20→09:49)
[2023-09-25 02:15] LABS: Glucose,Whole Blood 475 mg/dL (70-110)
[2023-09-25] MEDS: INSULIN REGULAR 100 UNIT in SODIUM CHLORIDE 0.9% 100 ML IV SCH (02:26)
[2023-09-25 03:51] LABS: Glucose,Whole Blood 400 mg/dL (70-110)
[2023-09-25 04:52] LABS: Glucose,Whole Blood 420 mg/dL (70-110)
[2023-09-25 06:04] LABS: Glucose,Whole Blood 400 mg/dL (70-110)
--- NOTE | 2023-09-25 06:27 | P.PN ---
Subjective Progress Note Date: 09/24/23 68-year-old female, history of hypertension, hyperlipidemia, hypothyroidism, diabetes mellitus, DVT/PE, factor V Leiden deficiency, who presents to the emergency department for failed outpatient management of the UTI. Patient brings her culture and sensitivity report with her, which was collected on 09/10. However, patient states that she failed outpatient management of Zosyn, which the report says the bacteria is susceptible to. It is not entirely clear why she was on this or how she was receiving it. States that Levaquin was called in today, however she was advised to come to the hospital for for IV antibiotics instead. Reports pain all over her body. Blood work completed in ED reveals a WBC of 6.9, hemoglobin of 11.2 and platelet count of 139, sodium 132, potassium 5.4, BUN/creatinine of 30/1.35 and blood glucose of 177, AST/ALT elevated at 56/43 Patient is being admitted for further treatment of UTI and hyperkalemia 09/24/2023 Patient is seen in follow-up with nephrology and infectious disease following. Patient is continued on IV antibiotics with infectious disease following and p bowen had an episode of shortness of breath with hypoxia last night and chest x-ray was ordered. D-dimer ordered as well and if positive will follow-up with CT. Patient is afebrile reports her redness of her lower extremity has improved along with swelling. Awaiting PT/OT therapy evaluation as patient reports she plans on returning home with family. Patient denies chest pain or shortness of breath. Patient reports she has been tolerating diet with no reported nausea or vomiting noted. Review of systems: Constitutional: No reports of fatigue, fever, or chills Cardiovascular: No reports of chest pain or palpitations Respiratory: No reports of shortness of breath or cough GI: No reports of nausea, vomiting, or diarrhea : No reports of dysuria or retention Neurovascular: reports of generalized weakness and improvement of her lower extremity redness on the left All medications have been reviewed Physical exam: Gen: This is a 68-year-old female who is awake, alert and oriented x 2., well- developed, well-nourished, morbidly obese, elderly appearing HEENT: Head is atraumatic, normocephalic. Pupils equal, round. Sclerae is anicteric. NECK: Supple. No JVD. No lymphadenopathy. No thyromegaly. LUNGS: Clear to auscultation. No wheezes or rhonchi. No intercostal retractions. HEART: Regular rate and rhythm. No murmur. ABDOMEN: Soft. Bowel sounds are present. No masses. No tenderness. EXTREMITIES: No pedal edema. No calf tenderness. There is bilateral lower extremity swelling noted in the left has been marked and the redness is improving NEUROLOGICAL: Patient is awake, alert and oriented x2. Cranial nerves 2 through 12 are grossly intact. Diffusely weak Assessment: -UTI, present on admission with failure of outpatient treatment -Bilateral lower extremity cellulitis; present on admission -Acute renal injury; improving, nephrology following -Elevated D-dimer with a brief episode of hypoxia, concern for PE, PE ruled out per CTA -Hyperkalemia, trending down -Weakness/debility; likely multifactorial related to LIAM, UTI -Hypertension -Hyperlipidemia -Hypothyroidism -Seizure disorder -Diabetes mellitus type II, insulin-dependent, uncontrolled with hyperglycemia -DVT prophylaxis; SCDs/subcu heparin -GI prophylaxis -full code Plan: Patient is continued on antibiotics with infectious disease following. Patient had an episode of hypoxia requiring oxygen and chest x-ray was obtained along with D-dimer. D-dimer was elevated at 4 and CTA was ordered which was negative for PE. Patient having extremely elevated blood sugars and was maintained on regular di et will transition to consistent carb and have made adjustments to insulins including increasing long-acting to twice daily, Premeal insulin, and continued sliding scale. Awaiting PT/OT therapy evaluation as patient reports she is going home on discharge Will follow-up with infectious disease and repeat labs in the a.m. Discussed possible discharge planning in the next 24 to 48 hours The impression and plan of care has been dictated by Rocio Maher Nurse Practitioner as directed. Dr. Pankaj MD I have performed a history and examination and MDM of this patient, discussed th e same with the dictator, and agree with the dictator's assessment and plan as written ,documented as a scribe. Based on total visit time, I have performed more than 50% of the visit. Objective - Vital Signs Vital signs: Vital Signs Temp 98.6 F 09/24/23 07:09 Pulse 93 09/24/23 07:09 Resp 18 09/24/23 07:09 BP 121/73 09/24/23 07:09 Pulse Ox 96 09/24/23 07:09 FiO2 Intake & Output 09/23/23 09/24/23 09/24/23 18:59 06:59 18:59 Output Total 800 Balance -800 Output: Urine 800 Other: Voiding Method External Catheter Toilet External Catheter # Voids 8 - Labs CBC & Chem 7: 09/23/23 04:35 09/24/23 05:54 Labs: Abnormal Lab Results - Last 24 Hours (Table) 09/23/23 09/23/23 09/23/23 Range/Units 04:35 04:35 04:35 RBC 3.02 L (4.40-5.60) X 10*6/uL Hgb 9.2 L (13.0-17.0) g/dL Hct 30.6 L (39.6-50.0) % MCV 101.3 H (80.0-97.0) FL MCHC 30.1 L (32.0-37.0) g/dL RDW 17.0 H (11.5-14.5) % Plt Count 130 L (140-440) X 10*3/uL Sodium 134 L (135-145) mmol/L Potassium (3.5-5.1) mmol/L BUN (7-17) mg/dL Creatinine (0.52-1.04) mg/dL Est GFR (CKD-EPI) 50 L (>=60) Glucose 197 H (70-110) mg/dL POC Glucose (mg/dL) (70-110) mg/dL Hemoglobin A1c 8.1 H (<=6.0) % Calcium 7.5 L (8.7-10.3) mg/dL 09/23/23 09/23/23 09/23/23 Range/Units 11:38 16:13 16:43 RBC (4.40-5.60) X 10*6/uL Hgb (13.0-17.0) g/dL Hct (39.6-50.0) % MCV (80.0-97.0) FL MCHC (32.0-37.0) g/dL RDW (11.5-14.5) % Plt Count (140-440) X 10*3/uL Sodium (135-145) mmol/L Potassium 5.3 H (3.5-5.1) mmol/L BUN (7-17) mg/dL Creatinine (0.52-1.04) mg/dL Est GFR (CKD-EPI) (>=60) Glucose (70-110) mg/dL POC Glucose (mg/dL) 312 H 348 H (70-110) mg/dL Hemoglobin A1c (<=6.0) % Calcium (8.7-10.3) mg/dL 09/23/23 09/23/23 09/24/23 Range/Units 19:23 21:24 05:54 RBC (4.40-5.60) X 10*6/uL Hgb (13.0-17.0) g/dL Hct (39.6-50.0) % MCV (80.0-97.0) FL MCHC (32.0-37.0) g/dL RDW (11.5-14.5) % Plt Count (140-440) X 10*3/uL Sodium 132 L (135-145) mmol/L Potassium (3.5-5.1) mmol/L BUN 24 H (7-17) mg/dL Creatinine 1.16 H (0.52-1.04) mg/dL Est GFR (CKD-EPI) (>=60) Glucose 378 H (70-110) mg/dL POC Glucose (mg/dL) 410 H 391 H (70-110) mg/dL Hemoglobin A1c (<=6.0) % Calcium 7.6 L (8.7-10.3) mg/dL 09/24/23 Range/Units 06:10 RBC (4.40-5.60) X 10*6/uL Hgb (13.0-17.0) g/dL Hct (39.6-50.0) % MCV (80.0-97.0) FL MCHC (32.0-37.0) g/dL RDW (11.5-14.5) % Plt Count (140-440) X 10*3/uL Sodium (135-145) mmol/L Potassium (3.5-5.1) mmol/L BUN (7-17) mg/dL Creatinine (0.52-1.04) mg/dL Est GFR (CKD-EPI) (>=60) Glucose (70-110) mg/dL POC Glucose (mg/dL) 412 H (70-110) mg/dL Hemoglobin A1c (<=6.0) % Calcium (8.7-10.3) mg/dL Microbiology - Last 24 Hours (Table) 09/21/23 22:48 Blood Culture - Preliminary Blood
[2023-09-25] MEDS: PANTOPRAZOLE 40 MG TABLET PO SCH (06:30)
[2023-09-25 06:43] LABS: Glucose,Whole Blood 374 mg/dL (70-110)
[2023-09-25] MEDS ORDERED: INSULIN REGULAR 100 UNIT in SODIUM CHLORIDE 0.9% 100 ML IV SCH (07:25)
[2023-09-25 07:36] LABS: Glucose,Whole Blood 389 mg/dL (70-110)
[2023-09-25 08:28] LABS: Glucose,Whole Blood 301 mg/dL (70-110)
[2023-09-25 08:44] LABS: Glucose,Whole Blood 305 mg/dL (70-110)
--- NOTE | 2023-09-25 08:55 | XR ---
EXAMINATION TYPE: XR chest 2V DATE OF EXAM: 09/24/2023 1:04 PM CLINICAL INDICATION:Female, 68 years old with history of Hypoxemia; PHH COMPARISON: Chest radiographs from 08/12/2023 TECHNIQUE: XR chest 2V Frontal and lateral views of the chest. FINDINGS: Lungs/Pleura: There is no evidence of pleural effusion, focal consolidation, or pneumothorax. Pulmonary vascularity: Pulmonary vascular congestion. Heart/mediastinum: Cardiomediastinal silhouette is prominent in size. Musculoskeletal: No acute osseous pathology. IMPRESSION: Cardiomegaly and mild pulmonary vascular congestion. Correlate with BNP for congestive heart failure.
[2023-09-25 09:31] LABS: Glucose,Whole Blood 264 mg/dL (70-110)
[2023-09-25 10:34] LABS: Glucose,Whole Blood 203 mg/dL (70-110)
[2023-09-25] MEDS: INSULIN DETEMIR (LEVEMIR) 100 UNIT/ML SYR SQ SCH ×2 (10:34→16:01)
[2023-09-25 11:35] LABS: Glucose,Whole Blood 135 mg/dL (70-110)
[2023-09-25 11:55] LABS: Anisocytosis Slight; Basophils % (A) 0 %; Eosinophils % (A) 1 %; HCT 31.9 % (34.0-46.0); HGB 10.2 gm/dL (11.4-16.0); Hypochromasia Slight; Lymphocytes # (A) 1.2 k/uL (1.0-4.8); Lymphocytes % (A) 22 %; MCHC 32.1 g/dL (31.0-37.0); MCV 99.6 fL (80.0-100.0); Macrocytosis Slight; Mean Platelet Volume 9.2; Monocytes # (A) 0.1 k/uL (0-1.0); Monocytes % (A) 2 %; Neutrophils # (A) 4.2 k/uL (1.3-7.7); Neutrophils % (A) 75 %; Platelet Count 137 k/uL (150-450); RDW 16.5 % (11.5-15.5); WBC 5.6 k/uL (3.8-10.6)
[2023-09-25] MEDS: INSULIN ASPART (NovoLOG) 100 UNIT/ML VIAL SQ SCH ×2 (12:03→13:48)
[2023-09-25 12:21] LABS: African American GFR (CKD) 74 (>60 ml/min/1.73 sqM); Anion Gap 5 mmol/L; Blood Urea Nitrogen 23 mg/dL (7-17); Calcium 8.3 mg/dL (8.4-10.2); Carbon Dioxide 27 mmol/L (22-30); Chloride 101 mmol/L (98-107); Glucose 189 mg/dL (74-99); Magnesium 2.2 mg/dL (1.6-2.3); Non-African American GFR(CKD) 65 (>60 ml/min/1.73 sqM); Potassium 4.1 mmol/L (3.5-5.1); Sodium 133 mmol/L (137-145)
--- NOTE | 2023-09-25 13:06 | P.PN ---
Subjective Progress Note Date: 09/25/23 Principal diagnosis: Reason for follow-up is bilateral lower extremity cellulitis Patient is a 68-year-old female with a past medical history significant for diabetes mellitus hypertension hyperlipidemia PR DVT history of recurrent UTI presenting to the hospital for evaluation of failure of outpatient antibiotic treatment for her UTI apparently patient was complaining of urinary burning frequency however the patient did have a negative UA on admission to the hospital also noticed to have bilateral lower extremity cellulitis patient with a left leg. On today's evaluation that is 09/25/2023, the patient continues to be afebrile, the patient is on 2 L nasal cannula oxygen and breathing comfortably, The patient denies having any chest pain or cough, the patient denies having any abdominal pain no vomiting or any diarrhea has been reported by the nursing staff, swelling redness to lower extremity has decreased in intensity Patient did have white count of 5.6, creatinine 0.[address] angiogram of the chest was negative for PE or pneumonia Objective - Vital Signs Vital signs: Vital Signs Temp 97.6 F 09/25/23 11:21 Pulse 64 09/25/23 11:21 Resp 16 09/25/23 11:21 BP 95/58 09/25/23 11:21 Pulse Ox 97 09/25/23 11:21 FiO2 Intake & Output 09/24/23 09/25/23 09/25/23 18:59 06:59 18:59 Intake Total 650 20.979 60.509 Output Total 1925 Balance -1275 20.979 60.509 Intake: Intake, IV Titration 650 20.979 60.509 Amount Insulin Regular 100 unit 20.979 60.509 In Sodium Chloride 0.9% 100 ml @ Titrate IV .Q0M FLO Rx#:[id number] Sodium Chloride 0.9% 1, 600 000 ml @ 75 mls/hr IV . [id number] FLO Rx#:[id number] ceFAZolin 2 gm In Sodium 50 Chloride 0.9% 50 ml @ 100 mls/hr IVPB Q12HR FLO Rx #:[id number] Output: Urine 1925 Other: Voiding Method Toilet Toilet External Catheter External Catheter # Voids 2 # Bowel Movements 2 - Exam GENERAL DESCRIPTION: An elderly female up in the bed in no distress RESPIRATORY SYSTEM: Unlabored breathing , decreased breath sounds at bases HEART: S1 S2 regular rate and rhythm , ABDOMEN: Soft , no tenderness EXTREMITIES: Bilateral extremity swelling redness slightly decreased - Labs CBC & Chem 7: 09/25/23 10:21 09/25/23 10:21 Labs: Abnormal Lab Results - Last 24 Hours (Table) 09/24/23 09/24/23 09/24/23 Range/Units 14:10 16:58 20:57 RBC (3.80-5.40) m/uL Hgb (11.4-16.0) gm/dL Hct (34.0-46.0) % RDW (11.5-15.5) % Plt Count (150-450) k/uL D-Dimer 4.93 H (<0.60) mg/L FEU POC Glucose (mg/dL) 430 H 477 H (70-110) mg/dL 09/25/23 09/25/23 09/25/23 Range/Units 00:42 02:12 03:40 RBC (3.80-5.40) m/uL Hgb (11.4-16.0) gm/dL Hct (34.0-46.0) % RDW (11.5-15.5) % Plt Count (150-450) k/uL D-Dimer (<0.60) mg/L FEU POC Glucose (mg/dL) 471 H 475 H 400 H (70-110) mg/dL 09/25/23 09/25/23 09/25/23 Range/Units 04:41 05:44 06:41 RBC (3.80-5.40) m/uL Hgb (11.4-16.0) gm/dL Hct (34.0-46.0) % RDW (11.5-15.5) % Plt Count (150-450) k/uL D-Dimer (<0.60) mg/L FEU POC Glucose (mg/dL) 420 H 400 H 374 H (70-110) mg/dL 09/25/23 09/25/23 09/25/23 Range/Units 07:35 08:27 08:43 RBC (3.80-5.40) m/uL Hgb (11.4-16.0) gm/dL Hct (34.0-46.0) % RDW (11.5-15.5) % Plt Count (150-450) k/uL D-Dimer (<0.60) mg/L FEU POC Glucose (mg/dL) 389 H 301 H 305 H (70-110) mg/dL 09/25/23 09/25/23 09/25/23 Range/Units 09:29 10:21 10:32 RBC 3.20 L (3.80-5.40) m/uL Hgb 10.2 L (11.4-16.0) gm/dL Hct 31.9 L (34.0-46.0) % RDW 16.5 H (11.5-15.5) % Plt Count 137 L (150-450) k/uL D-Dimer (<0.60) mg/L FEU POC Glucose (mg/dL) 264 H 203 H (70-110) mg/dL 09/25/23 Range/Units 11:34 RBC (3.80-5.40) m/uL Hgb (11.4-16.0) gm/dL Hct (34.0-46.0) % RDW (11.5-15.5) % Plt Count (150-450) k/uL D-Dimer (<0.60) mg/L FEU POC Glucose (mg/dL) 135 H (70-110) mg/dL Microbiology - Last 24 Hours (Table) 09/21/23 22:48 Blood Culture - Preliminary Blood Assessment and Plan (1) Bilateral lower leg cellulitis Current Visit: Yes Status: Acute Code(s): L03.116 - CELLULITIS OF LEFT LOWER LIMB; L03.115 - CELLULITIS OF RIGHT LOWER LIMB SNOMED Code(s): 241517120 Plan: 1patient is presenting to the hospital multiple symptoms including urinary symptoms of burning frequency and apparently recent outpatient urine culture positive for VRE and E. coli however the patient did have a negative UA on this admission clinical without UTI 2-patient did have a bilateral lower extremity cellulitis especially to the left lower extremity with diffuse swelling redness likely streptococcal disease 3- patient did have improvement of her lower extremity cellulitis to continue with the cefazolin and will be able to finish therapy with oral Keflex Dictation was produced using [employer] dictation software. please excuse any grammatical, word or spelling errors. Time with Patient: Less than 30
[2023-09-25 13:47] LABS: Glucose,Whole Blood 184 mg/dL (70-110)
[2023-09-25] MEDS: SENNOSIDES 8.6 MG TAB PO SCH (15:24)
[2023-09-25] MEDS: HYDROCORTISONE SUPPOSITORY 25 MG SUPP RECTAL SCH (15:24)
[2023-09-25 16:30] LABS: Glucose,Whole Blood 255 mg/dL (70-110)
--- NOTE | 2023-09-25 16:40 | P.PN ---
Subjective Patient is seen for follow-up for acute kidney injury. Renal function has improved with creatinine down to 0.9 mg/dL. Status post IV fluids. Status post chest CTA on 09/24/2023 with no evidence of PE No significant complaints Objective - Vital Signs Vital signs: Vital Signs Temp 97.7 F 09/25/23 16:00 Pulse 73 09/25/23 16:00 Resp 16 09/25/23 16:00 BP 109/70 09/25/23 16:00 Pulse Ox 95 09/25/23 16:00 FiO2 Intake & Output 09/24/23 09/25/23 09/25/23 18:59 06:59 18:59 Intake Total 650 20.979 282.509 Output Total 1925 1100 Balance -1275 20.979 -817.491 Intake: Intake, IV Titration 650 20.979 60.509 Amount Insulin Regular 100 unit 20.979 60.509 In Sodium Chloride 0.9% 100 ml @ Titrate IV .Q0M FLO Rx#:[id number] Sodium Chloride 0.9% 1, 600 000 ml @ 75 mls/hr IV . [id number] FLO Rx#:[id number] ceFAZolin 2 gm In Sodium 50 Chloride 0.9% 50 ml @ 100 mls/hr IVPB Q12HR FLO Rx #:[id number] Oral 222 Output: Urine 1924 1100 Other: Voiding Method Toilet Toilet External Catheter External Catheter # Voids 2 # Bowel Movements 2 - Exam Patient is awake, comfortable, in no acute distress Examination of the heart S1 and S2 Examination of the lungs bilateral breath sounds are heard Abdomen is soft nontender Examination of lower extremity shows 1+ edema. Erythema noted bilateral low lower legs worse on the left side, improved since admission. - Labs CBC & Chem 7: 09/25/23 10:21 09/25/23 10:21 Labs: Abnormal Lab Results - Last 24 Hours (Table) 09/24/23 09/24/23 09/25/23 Range/Units 16:58 20:57 00:42 RBC (3.80-5.40) m/uL Hgb (11.4-16.0) gm/dL Hct (34.0-46.0) % RDW (11.5-15.5) % Plt Count (150-450) k/uL Sodium (137-145) mmol/L BUN (7-17) mg/dL Glucose (74-99) mg/dL POC Glucose (mg/dL) 430 H 477 H 471 H (70-110) mg/dL Calcium (8.4-10.2) mg/dL 09/25/23 09/25/23 09/25/23 Range/Units 02:12 03:40 04:41 RBC (3.80-5.40) m/uL Hgb (11.4-16.0) gm/dL Hct (34.0-46.0) % RDW (11.5-15.5) % Plt Count (150-450) k/uL Sodium (137-145) mmol/L BUN (7-17) mg/dL Glucose (74-99) mg/dL POC Glucose (mg/dL) 475 H 400 H 420 H (70-110) mg/dL Calcium (8.4-10.2) mg/dL 09/25/23 09/25/23 09/25/23 Range/Units 05:44 06:41 07:35 RBC (3.80-5.40) m/uL Hgb (11.4-16.0) gm/dL Hct (34.0-46.0) % RDW (11.5-15.5) % Plt Count (150-450) k/uL Sodium (137-145) mmol/L BUN (7-17) mg/dL Glucose (74-99) mg/dL POC Glucose (mg/dL) 400 H 374 H 389 H (70-110) mg/dL Calcium (8.4-10.2) mg/dL 09/25/23 09/25/23 09/25/23 Range/Units 08:27 08:43 09:29 RBC (3.80-5.40) m/uL Hgb (11.4-16.0) gm/dL Hct (34.0-46.0) % RDW (11.5-15.5) % Plt Count (150-450) k/uL Sodium (137-145) mmol/L BUN (7-17) mg/dL Glucose (74-99) mg/dL POC Glucose (mg/dL) 301 H 305 H 264 H (70-110) mg/dL Calcium (8.4-10.2) mg/dL 02/20/24 02/20/24 02/20/24 Range/Units 10:21 10:21 10:32 RBC 3.20 L (3.80-5.40) m/uL Hgb 10.2 L (11.4-16.0) gm/dL Hct 31.9 L (34.0-46.0) % RDW 16.5 H (11.5-15.5) % Plt Count 137 L (150-450) k/uL Sodium 133 L (137-145) mmol/L BUN 23 H (7-17) mg/dL Glucose 189 H (74-99) mg/dL POC Glucose (mg/dL) 203 H (70-110) mg/dL Calcium 8.3 L (8.4-10.2) mg/dL 09/25/23 09/25/23 09/25/23 Range/Units 11:34 13:45 16:29 RBC (3.80-5.40) m/uL Hgb (11.4-16.0) gm/dL Hct (34.0-46.0) % RDW (11.5-15.5) % Plt Count (150-450) k/uL Sodium (137-145) mmol/L BUN (7-17) mg/dL Glucose (74-99) mg/dL POC Glucose (mg/dL) 135 H 184 H 255 H (70-110) mg/dL Calcium (8.4-10.2) mg/dL Microbiology - Last 24 Hours (Table) 09/21/23 22:48 Blood Culture - Preliminary Blood Assessment and Plan Assessment: 1. Hyperkalemia, related to hyperglycemia due to uncontrolled diabetes and hyperglycemia. 2. LLE Cellulitis, improving 3. LIAM on CKD Stage 2/3a, baseline creatinine 0.9-1.2 mg/dL, presented with a creatinine of 1.3, improved to creatinine of 0.9 today. Currently with good urine output. 4. Uncontrolled type 2 diabetes Plan: IV Lasix x 1 Continue off of IV fluids Antibiotics as per ID. Repeat labs in a.m.
[2023-09-25] MEDS: FUROSEMIDE 10 MG/ML 4 ML VIAL IV STA (16:45)
[2023-09-25 20:23] LABS: Glucose,Whole Blood 264 mg/dL (70-110)
[2023-09-26 06:01] LABS: Glucose,Whole Blood 245 mg/dL (70-110)
--- NOTE | 2023-09-26 06:39 | P.PN ---
Subjective Progress Note Date: 09/25/23 68-year-old female, history of hypertension, hyperlipidemia, hypothyroidism, diabetes mellitus, DVT/PE, factor V Leiden deficiency, who presents to the emergency department for failed outpatient management of the UTI. Patient brings her culture and sensitivity report with her, which was collected on 09/10. However, patient states that she failed outpatient management of Zosyn, which the report says the bacteria is susceptible to. It is not entirely clear why she was on this or how she was receiving it. States that Levaquin was called in today, however she was advised to come to the hospital for for IV antibiotics instead. Reports pain all over her body. Blood work completed in ED reveals a WBC of 6.9, hemoglobin of 11.2 and platelet count of 139, sodium 132, potassium 5.4, BUN/creatinine of 30/1.35 and blood glucose of 177, AST/ALT elevated at 56/43 Patient is being admitted for further treatment of UTI and hyperkalemia 09/24/2023 Patient is seen in follow-up with nephrology and infectious disease following. Patient is continued on IV antibiotics with infectious disease following and p bowen had an episode of shortness of breath with hypoxia last night and chest x-ray was ordered. D-dimer ordered as well and if positive will follow-up with CT. Patient is afebrile reports her redness of her lower extremity has improved along with swelling. Awaiting PT/OT therapy evaluation as patient reports she plans on returning home with family. Patient denies chest pain or shortness of breath. Patient reports she has been tolerating diet with no reported nausea or vomiting noted. 09/25/2023 Patient is seen in follow-up and moved down to 3 S. as patient was placed on insulin drip for elevated blood sugars. Patient had not been started on any Accu-Cheks or insulin's and is a diabetic that is insulin-dependent and blood sugars were uncontrolled. Will discontinue insulin drip and initiate long- acting twice daily along with 3 meals and sliding scale. Diet also switch to consistent carb. Patient is afebrile with no reported chest pain or shortness of breath. Patient is on room air and tolerating. Patient continues on cefazolin with infectious disease following and showing some improvement on the lower left extremity and redness is improving. Swelling improving as well. Patient worked with physical therapy and reports to doing well with plans on returning home. Will discuss with other consultations about discharge planning and probable discharge in the next 24 hours Review of systems: Constitutional: No reports of fatigue, fever, or chills Cardiovascular: No reports of chest pain or palpitations Respiratory: No reports of shortness of breath or cough GI: No reports of nausea, vomiting, or diarrhea : No reports of dysuria or retention Neurovascular: reports of generalized weakness and improvement of her lower extremity redness on the left All medications have been reviewed Physical exam: Gen: This is a 68-year-old female who is awake, alert and oriented x 2-3., well- developed, well-nourished, morbidly obese, elderly appearing HEENT: Head is atraumatic, normocephalic. Pupils equal, round. Sclerae is anicteric. NECK: Supple. No JVD. No lymphadenopathy. No thyromegaly. LUNGS: Clear to auscultation. No wheezes or rhonchi. No intercostal retract ions. HEART: Regular rate and rhythm. No murmur. ABDOMEN: Soft. Bowel sounds are present. No masses. No tenderness. EXTREMITIES: No pedal edema. No calf tenderness. There is bilateral lower extremity swelling noted in the left has been marked and the redness is improving NEUROLOGICAL: Patient is awake, alert and oriented x2. Cranial nerves 2 through 12 are grossly intact. Diffusely weak Assessment: -UTI, present on admission with failure of outpatient treatment -Bilateral lower extremity cellulitis; present on admission -Acute renal injury; improving, nephrology following -Elevated D-dimer with a brief episode of hypoxia, concern for PE, PE ruled out per CTA -Hyperkalemia, trending down -Weakness/debility; likely multifactorial related to LIAM, UTI -Hypertension -Hyperlipidemia -Hypothyroidism -Seizure disorder -Diabetes mellitus type II, insulin-dependent, uncontrolled with hyperglycemia -DVT prophylaxis; SCDs/subcu heparin -GI prophylaxis -full code Plan: Patient is continued on antibiotics with infectious disease following. Patient had an episode of hypoxia requiring oxygen and chest x-ray was obtained along with D-dimer. D-dimer was elevated at 4 and CTA was ordered which was negative for PE. Patient is currently on room air. Patient also continues on cefazolin for lower extremity cellulitis and will discuss further with infectious disease on discharge planning. Redness is improving as well as swelling of the lower extremities Patient had uncontrolled blood sugars and was not started on insulin which resulted in starting an insulin drip. Will discontinue insulin drip and continue with long-acting, Premeal's, and sliding scale with Accu-Cheks before meals and at bedtime. Continue consistent carb diet PT/OT therapy evaluated the patient reporting she did well and plans for returning home with home care. Will follow-up with infectious disease and repeat labs in the a.m. Discuss possible discharge planning in the next 24 hours The impression and plan of care has been dictated by Rocio Maher, Nurse Practitioner as directed. Dr. Pankaj MD I have performed a history and examination and MDM of this patient, discussed the same with the dictator, and agree with the dictator's assessment and plan as written ,documented as a scribe. Based on total visit time, I have performed more than 50% of the visit. Objective - Vital Signs Vital signs: Vital Signs Temp 97.5 F L 09/25/23 08:59 Pulse 73 09/25/23 08:59 Resp 16 09/25/23 08:59 BP 106/71 09/25/23 08:59 Pulse Ox 96 09/25/23 09:03 FiO2 Intake & Output 09/24/23 09/25/23 09/25/23 18:59 06:59 18:59 Intake Total 650 20.979 33.988 Output Total 1925 Balance -1275 20.979 33.988 Intake: Intake, IV Titration 650 20.979 33.988 Amount Insulin Regular 100 unit 20.979 33.988 In Sodium Chloride 0.9% 100 ml @ Titrate IV .Q0M [facility] Rx#:[id number] Sodium Chloride 0.9% 1, 600 000 ml @ 75 mls/hr IV . [id number] [facility] Rx#:[id number] ceFAZolin 2 gm In Sodium 50 Chloride 0.9% 50 ml @ 100 mls/hr IVPB Q12HR [facility] Rx #:[id number] Output: Urine 1925 Other: Voiding Method Toilet External Catheter # Voids 2 # Bowel Movements 2 - Labs CBC & Chem 7: 09/25/23 10:21 09/25/23 10:21 Labs: Abnormal Lab Results - Last 24 Hours (Table) 09/24/23 09/24/2309/24/24 Range/Units 11:53 14:10 16:58 D-Dimer 4.93 H (<0.60) mg/L FEU POC Glucose (mg/dL) 365 H 430 H (70-110) mg/dL 09/24/23 09/25/23 09/25/23 Range/Units 20:57 00:42 02:12 D-Dimer (<0.60) mg/L FEU POC Glucose (mg/dL) 477 H 471 H 475 H (70-110) mg/dL 09/25/23 09/25/23 09/25/23 Range/Units 03:40 04:41 05:44 D-Dimer (<0.60) mg/L FEU POC Glucose (mg/dL) 400 H 420 H 400 H (70-110) mg/dL 09/25/23 09/25/23 09/25/23 Range/Units 06:41 07:35 08:27 D-Dimer (<0.60) mg/L FEU POC Glucose (mg/dL) 374 H 389 H 301 H (70-110) mg/dL 09/25/23 09/25/23 Range/Units 08:43 09:29 D-Dimer (<0.60) mg/L FEU POC Glucose (mg/dL) 305 H 264 H (70-110) mg/dL Microbiology - Last 24 Hours (Table) 09/21/23 22:48 Blood Culture - Preliminary Blood
[2023-09-26 08:56] VITALS: BP 148/76; PULSE 92; RESP 20; TEMP 98.3
--- NOTE | 2023-09-26 11:25 | P.PN ---
Subjective Progress Note Date: 09/26/23 Principal diagnosis: Reason for follow-up is bilateral lower extremity cellulitis Patient is a 68-year-old female with a past medical history significant for diabetes mellitus hypertension hyperlipidemia LA DVT history of recurrent UTI presenting to the hospital for evaluation of failure of outpatient antibiotic treatment for her UTI apparently patient was complaining of urinary burning frequency however the patient did have a negative UA on admission to the hospital also noticed to have bilateral lower extremity cellulitis patient with a left leg. On today's evaluation that is 09/26/2023, Patient is afebrile patient is currently on room air and denies having any shortness of breath, the patient denies any chest pain or cough, the patient denies any nausea vomiting did not have any abdominal pain and no diarrhea lower extremity swelling redness has decreased feeling better. No new labs today blood culture negative Objective - Vital Signs Vital signs: Vital Signs Temp 98.3 F 09/26/23 08:55 Pulse 92 09/26/23 08:55 Resp 20 09/26/23 08:55 BP 148/76 09/26/23 08:55 Pulse Ox 98 09/26/23 08:55 FiO2 Intake & Output 09/25/23 09/26/23 09/26/23 18:59 06:59 18:59 Intake Total 504.509 137 Output Total 1100 Balance -595.491 137 Weight 120.8 kg Intake: Intake, IV Titration 60.509 Amount Insulin Regular 100 unit 60.509 In Sodium Chloride 0.9% 100 ml @ Titrate IV .Q0M [facility] Rx#:[id number] Oral 444 137 Output: Urine 1100 Other: Voiding Method Toilet Toilet External Catheter # Voids 1 - Exam GENERAL DESCRIPTION: An elderly female up in the bed in no distress RESPIRATORY SYSTEM: Unlabored breathing , decreased breath sounds at bases HEART: S1 S2 regular rate and rhythm , ABDOMEN: Soft , no tenderness EXTREMITIES: Bilateral extremity swelling redness slightly decreased - Labs CBC & Chem 7: 09/25/23 10:21 09/25/23 10:21 Labs: Abnormal Lab Results - Last 24 Hours (Table) 09/25/23 09/25/23 09/25/23 Range/Units 10:21 10:21 10:21 RBC 3.20 L (3.80-5.40) m/uL Hgb 10.2 L (11.4-16.0) gm/dL Hct 31.9 L (34.0-46.0) % RDW 16.5 H (11.5-15.5) % Plt Count 137 L (150-450) k/uL Sodium 133 L (137-145) mmol/L BUN 23 H (7-17) mg/dL Glucose 189 H (74-99) mg/dL POC Glucose (mg/dL) (70-110) mg/dL Hemoglobin A1c 8.3 H (<=6.0) % Calcium 8.3 L (8.4-10.2) mg/dL 09/25/23 09/25/23 09/25/23 Range/Units 11:34 13:45 16:29 RBC (3.80-5.40) m/uL Hgb (11.4-16.0) gm/dL Hct (34.0-46.0) % RDW (11.5-15.5) % Plt Count (150-450) k/uL Sodium (137-145) mmol/L BUN (7-17) mg/dL Glucose (74-99) mg/dL POC Glucose (mg/dL) 135 H 184 H 255 H (70-110) mg/dL Hemoglobin A1c (<=6.0) % Calcium (8.4-10.2) mg/dL 09/25/23 09/26/23 Range/Units 20:20 06:00 RBC (3.80-5.40) m/uL Hgb (11.4-16.0) gm/dL Hct (34.0-46.0) % RDW (11.5-15.5) % Plt Count (150-450) k/uL Sodium (137-145) mmol/L BUN (7-17) mg/dL Glucose (74-99) mg/dL POC Glucose (mg/dL) 264 H 245 H (70-110) mg/dL Hemoglobin A1c (<=6.0) % Calcium (8.4-10.2) mg/dL Microbiology - Last 24 Hours (Table) 09/21/23 22:48 Blood Culture - Preliminary Blood Assessment and Plan (1) Bilateral lower leg cellulitis Current Visit: Yes Status: Acute Code(s): L03.116 - CELLULITIS OF LEFT LOWER LIMB; L03.115 - CELLULITIS OF RIGHT LOWER LIMB SNOMED Code(s): 429850471 Plan: 1patient is presenting to the hospital multiple symptoms including urinary symptoms of burning frequency and apparently recent outpatient urine culture positive for VRE and E. coli however the patient did have a negative UA on this admission clinical doubt UTI 2-patient did have a bilateral lower extremity cellulitis especially to the left lower extremity with diffuse swelling redness likely streptococcal disease 3- patient is slowly clinical improvement as far as lower extremity cellulitis to continue with the cefazolin while inpatient however the patient will be able to finish therapy with oral Keflex Dictation was produced using [employer] software. please excuse any grammatical, word or spelling errors. Time with Patient: Less than 30
[2023-09-26 11:38] LABS: Glucose,Whole Blood 310 mg/dL (70-110)
--- NOTE | 2023-09-26 13:06 | P.PN ---
Subjective Progress Note Date: 09/23/23 68-year-old female, history of hypertension, hyperlipidemia, hypothyroidism, diabetes mellitus, DVT/PE, factor V Leiden deficiency, who presents to the emergency department for failed outpatient management of the UTI. Patient brings her culture and sensitivity report with her, which was collected on 09/10. However, patient states that she failed outpatient management of Zosyn, which the report says the bacteria is susceptible to. It is not entirely clear why she was on this or how she was receiving it. States that Levaquin was called in today, however she was advised to come to the hospital for for IV antibiotics instead. Reports pain all over her body. Blood work completed in ED reveals a WBC of 6.9, hemoglobin of 11.2 and platelet count of 139, sodium 132, potassium 5.4, BUN/creatinine of 30/1.35 and blood glucose of 177, AST/ALT elevated at 56/43 Patient is being admitted for further treatment of UTI and hyperkalemia Objective - Vital Signs Vital signs: Vital Signs Temp 98.6 F 09/22/23 18:55 Pulse 79 09/22/23 18:55 Resp 18 09/22/23 18:55 BP 142/70 09/22/23 18:55 Pulse Ox 93 L 09/22/23 18:55 FiO2 Intake & Output 09/22/23 09/22/23 09/23/23 06:59 18:59 06:59 Output Total 250 759 Balance -250 -759 Weight 113.398 kg Output: Urine 250 700 Post Void Residual 59 Other: Voiding Method Toilet External Catheter - Exam General appearance: alert, in no apparent distress Head exam: Present: atraumatic, normocephalic, normal inspection Eye exam: Present: normal appearance, PERRL, EOMI. Absent: scleral icterus, con junctival injection, periorbital swelling Neck exam: Present: normal inspection. Absent: tenderness, meningismus, lymphadenopathy Respiratory exam: Present: normal lung sounds bilaterally. Absent: respiratory distress, wheezes, rales, rhonchi, stridor Cardiovascular Exam: Present: regular rate, normal rhythm, normal heart sounds. Absent: systolic murmur, diastolic murmur, rubs, gallop, clicks GI/Abdominal exam: Present: soft, normal bowel sounds. Absent: distended, tenderness, guarding, rebound, rigid Extremities exam: Present: normal inspection, full ROM, normal capillary refill. Absent: tenderness, pedal edema, joint swelling, calf tenderness Neurological exam: Present: alert, oriented X3, CN II-XII intact Skin exam: Present: warm, dry, intact, normal color. Absent: rash - Labs CBC & Chem 7: 09/25/23 10:21 09/25/23 10:21 Labs: Abnormal Lab Results - Last 24 Hours (Table) 09/22/23 09/22/23 09/22/23 Range/Units 00:06 05:52 05:52 RBC 3.13 L (3.80-5.40) m/uL Hgb 10.2 L (11.4-16.0) gm/dL Hct 31.2 L (34.0-46.0) % RDW 16.9 H (11.5-15.5) % Plt Count 117 L (150-450) k/uL Sodium 132 L (137-145) mmol/L Potassium 6.4 H* (3.5-5.1) mmol/L BUN 28 H (7-17) mg/dL Creatinine 1.20 H (0.52-1.04) mg/dL Glucose 153 H (74-99) mg/dL POC Glucose (mg/dL) (70-110) mg/dL Calcium 7.8 L (8.4-10.2) mg/dL Magnesium 2.5 H 2.4 H (1.6-2.3) mg/dL AST 59 H (14-36) U/L ALT 38 H (4-34) U/L Alkaline Phosphatase 312 H (38-126) U/L Total Protein 6.2 L (6.3-8.2) g/dL Albumin 3.0 L (3.5-5.0) g/dL 09/22/23 09/22/23 09/22/23 Range/Units 05:54 08:59 09:53 RBC (3.80-5.40) m/uL Hgb (11.4-16.0) gm/dL Hct (34.0-46.0) % RDW (11.5-15.5) % Plt Count (150-450) k/uL Sodium (137-145) mmol/L Potassium (3.5-5.1) mmol/L BUN (7-17) mg/dL Creatinine (0.52-1.04) mg/dL Glucose (74-99) mg/dL POC Glucose (mg/dL) 156 H 362 H 324 H (70-110) mg/dL Calcium (8.4-10.2) mg/dL Magnesium (1.6-2.3) mg/dL AST (14-36) U/L ALT (4-34) U/L Alkaline Phosphatase (38-126) U/L Total Protein (6.3-8.2) g/dL Albumin (3.5-5.0) g/dL 09/22/23 09/22/23 09/22/23 Range/Units 11:39 11:53 14:04 RBC (3.80-5.40) m/uL Hgb (11.4-16.0) gm/dL Hct (34.0-46.0) % RDW (11.5-15.5) % Plt Count (150-450) k/uL Sodium 133 L (137-145) mmol/L Potassium 6.5 H* 6.4 H* (3.5-5.1) mmol/L BUN (7-17) mg/dL Creatinine (0.52-1.04) mg/dL Glucose (74-99) mg/dL POC Glucose (mg/dL) 210 H (70-110) mg/dL Calcium (8.4-10.2) mg/dL Magnesium (1.6-2.3) mg/dL AST (14-36) U/L ALT (4-34) U/L Alkaline Phosphatase (38-126) U/L Total Protein (6.3-8.2) g/dL Albumin (3.5-5.0) g/dL 09/22/23 09/22/23 09/22/23 Range/Units 14:53 16:34 17:02 RBC (3.80-5.40) m/uL Hgb (11.4-16.0) gm/dL Hct (34.0-46.0) % RDW (11.5-15.5) % Plt Count (150-450) k/uL Sodium (137-145) mmol/L Potassium 6.6 H* (3.5-5.1) mmol/L BUN (7-17) mg/dL Creatinine (0.52-1.04) mg/dL Glucose (74-99) mg/dL POC Glucose (mg/dL) 233 H 226 H (70-110) mg/dL Calcium (8.4-10.2) mg/dL Magnesium (1.6-2.3) mg/dL AST (14-36) U/L ALT (4-34) U/L Alkaline Phosphatase (38-126) U/L Total Protein (6.3-8.2) g/dL Albumin (3.5-5.0) g/dL 09/22/23 09/22/23 Range/Units 21:23 23:09 RBC (3.80-5.40) m/uL Hgb (11.4-16.0) gm/dL Hct (34.0-46.0) % RDW (11.5-15.5) % Plt Count (150-450) k/uL Sodium (137-145) mmol/L Potassium (3.5-5.1) mmol/L BUN (7-17) mg/dL Creatinine (0.52-1.04) mg/dL Glucose (74-99) mg/dL POC Glucose (mg/dL) 329 H 303 H (70-110) mg/dL Calcium (8.4-10.2) mg/dL Magnesium (1.6-2.3) mg/dL AST (14-36) U/L ALT (4-34) U/L Alkaline Phosphatase (38-126) U/L Total Protein (6.3-8.2) g/dL Albumin (3.5-5.0) g/dL Assessment and Plan Assessment: 1. UTI; failing outpatient treatment; given use of multiple antibiotics, patient has been placed on IV daptomycin and Levaquin; further recommendations once urine culture is available; ID is consulted 2. Bilateral lower extremity cellulitis; patient has been placed on IV daptomycin and Levaquin; we will monitor CBC, CRP and procalcitonin; ID is consulted 3. Acute renal injury; IV fluid hydration with normal saline; will monitor strict PATRICIA's, daily weights, renal function electrolytes; avoid nephrotoxins and hypotension; consult nephrology 4. Hyperkalemia; patient received hyperkalemia cocktail with D50, IV insulin, albuterol nebulizer treatment, calcium chloride; we will continue to monitor potassium levels closely and treat as indicated 5. Weakness/debility; likely multifactorial related to LIAM, UTI; consult PT/OT 6. Hypertension; lisinopril 10 mg daily 7. Hyperlipidemia; Zetia 10 mg daily 8. Hypothyroidism; levothyroxine 300 mcg daily 9. Seizure disorder; Mysoline 125 mg twice daily 10. Diabetes mellitus with long-term insulin use; continue home dose of Lantus 50 units subcu twice daily; monitor Accu-Cheks before every meal and at bedtime with insulin sliding scale DVT prophylaxis; SCDs/subcu heparin CODE STATUS; full code
[2023-09-26 13:08] VITALS: BMI 44.3
--- NOTE | 2023-09-26 18:22 | P.PN ---
Subjective Patient is seen for follow-up for acute kidney injury. Renal function has improved with creatinine down to 0.9 mg/dL. Status post IV fluids. Status post chest CTA on 09/24/2023 with no evidence of PE No significant complaints. Patient wants to go home Objective - Vital Signs Vital signs: Vital Signs Temp 98.3 F 09/26/23 08:55 Pulse 92 09/26/23 08:55 Resp 20 09/26/23 08:55 BP 148/76 09/26/23 08:55 Pulse Ox 98 09/26/23 08:55 FiO2 Intake & Output 09/25/23 09/26/23 09/26/23 18:59 06:59 18:59 Intake Total 504.509 317 Output Total 1100 Balance -595.491 317 Weight 120.8 kg 120.8 kg Intake: Intake, IV Titration 60.509 Amount Insulin Regular 100 unit 60.509 In Sodium Chloride 0.9% 100 ml @ Titrate IV .Q0M [facility] Rx#:[id number] Oral 444 317 Output: Urine 1100 Other: Voiding Method Toilet Toilet External Catheter # Voids 1 3 - Exam Patient is awake, comfortable, in no acute distress Examination of the heart S1 and S2 Examination of the lungs bilateral breath sounds are heard Abdomen is soft nontender Examination of lower extremity shows 1+ edema. Erythema noted bilateral low lower legs worse on the left side, improved since admission. - Labs CBC & Chem 7: 09/25/23 10:21 09/25/23 10:21 Labs: Abnormal Lab Results - Last 24 Hours (Table) 09/25/23 09/26/23 09/26/23 Range/Units 20:20 06:00 11:37 POC Glucose (mg/dL) 264 H 245 H 310 H (70-110) mg/dL Assessment and Plan Assessment: 1. Hyperkalemia, related to hyperglycemia due to uncontrolled diabetes and hyperglycemia. Resolved 2. LLE Cellulitis, improving 3. LIAM on CKD Stage 2/3a, baseline creatinine 0.9-1.2 mg/dL, presented with a creatinine of 1.3, improved to creatinine of 0.9 today. Currently with good urine output. 4. Uncontrolled type 2 diabetes Plan: Okay to discharge from nephrology standpoint Add loop diuretics as outpatient Antibiotics as per ID.
== END 2023-09-26 13:34 | disposition home health service (06) | DRG 603 ==
LOC: EC 13:39 → 4SSUR 21:34 → 3SCARD 09-25 00:41
PROVIDERS: ADMIT Hospitalist; ATTEND Hospitalist
DX: L03.115 Cellulitis of right lower limb (principal); N17.9 Acute kidney failure, unspecified; D68.51 Activated protein C resistance; E11.41 Type 2 diabetes mellitus with diabetic mononeuropathy; E11.22 Type 2 diabetes mellitus with diabetic chronic kidney disease; R62.7 Adult failure to thrive; E11.610 Type 2 diabetes mellitus with diabetic neuropathic arthropathy; L03.116 Cellulitis of left lower limb; E11.65 Type 2 diabetes mellitus with hyperglycemia; G40.909 Epilepsy, unspecified, not intractable, without status epilepticus; I12.9 Hypertensive chronic kidney disease with stage 1 through stage 4 chronic kidney disease, or unspecified chronic kidney disease; E03.9 Hypothyroidism, unspecified; F32.A Depression, unspecified; Z79.4 Long term (current) use of insulin; Z28.310 Unvaccinated for COVID-19; E87.5 Hyperkalemia; G57.93 Unspecified mononeuropathy of bilateral lower limbs; N18.2 Chronic kidney disease, stage 2 (mild); G89.29 Other chronic pain; B37.31 Acute candidiasis of vulva and vagina; E78.5 Hyperlipidemia, unspecified; I89.0 Lymphedema, not elsewhere classified; K21.9 Gastro-esophageal reflux disease without esophagitis; M54.42 Lumbago with sciatica, left side; M54.41 Lumbago with sciatica, right side; M19.90 Unspecified osteoarthritis, unspecified site; F41.0 Panic disorder [episodic paroxysmal anxiety]; I25.2 Old myocardial infarction; K58.9 Irritable bowel syndrome, unspecified; R09.02 Hypoxemia; Z79.82 Long term (current) use of aspirin; Z79.02 Long term (current) use of antithrombotics/antiplatelets; Z79.890 Hormone replacement therapy; Z79.899 Other long term (current) drug therapy; Z85.828 Personal history of other malignant neoplasm of skin; Z86.711 Personal history of pulmonary embolism; Z86.718 Personal history of other venous thrombosis and embolism; Z87.891 Personal history of nicotine dependence; Z87.440 Personal history of urinary (tract) infections; Z87.01 Personal history of pneumonia (recurrent); Z86.19 Personal history of other infectious and parasitic diseases; Z95.5 Presence of coronary angioplasty implant and graft; Z88.8 Allergy status to other drugs, medicaments and biological substances; Z88.6 Allergy status to analgesic agent; Z88.3 Allergy status to other anti-infective agents; Z91.041 Radiographic dye allergy status
CPT/HCPCS: 36415; 71046; 71275; 80048; 80051; 80053; 81003; 82550; 83036; 83605; 83735; 84100; 84132; 85025; 85379; 87040; 94640; 96361; 96365; 96366; 96368; 96375; 99285

== ENCOUNTER 2023-10-25 03:08 | Emergency (ER) | payer MEDICARE, BC ==
--- NOTE | 2023-10-25 03:14 | ED ---
General Adult HPI - General Stated complaint: HIP PAIN Time Seen by Provider: 10/25/23 03:13 Source: patient, EMS Mode of arrival: EMS Limitations: no limitations - History of Present Illness Initial comments: Rosalinda is a 68-year-old female who presents to the emergency department today for evaluation of right-sided hip pain. Patient reports that a couple months ago she had a left-sided pelvic fracture she has been undergoing physical therapy and states that over the past few days she developed pain in the right hip. Pain seems to be from the back and the gluteus region around the hip. Pain is worse with weightbearing however pain kept her from sleep tonight which prompted her to call the ambulance for transfer to the hospital. Patient denies any fevers chills nausea or vomiting. - Related Data Home Medications Medication Instructions Recorded Confirmed Clopidogrel [Plavix] 75 mg PO DAILY 07/07/19 09/21/23 traZODone HCL [Desyrel] 200 mg PO HS 07/07/19 09/21/23 Insulin Glargine,Hum.rec.anlog 50 units SQ BID 06/09/21 09/21/23 [Lantus Solostar Pen] Levothyroxine Sodium [Synthroid] 300 mcg PO DAILY 08/30/21 09/21/23 Metoclopramide [Reglan] 5 mg PO QID PRN 09/10/21 09/21/23 diphenhydrAMINE HCL [Benadryl] 25 mg PO DAILY PRN 06/21/23 09/21/23 ALPRAZolam [Xanax] 2 mg PO TID 09/21/23 09/21/23 Aspirin EC [Ecotrin Low Dose] 81 mg PO DAILY 09/21/23 09/21/23 Insulin Lispro [humaLOG Kwikpen] See Protocol SQ AC-TID 09/21/23 09/21/23 Metoprolol Succinate (ER) [Toprol 25 mg PO DAILY 09/21/23 09/21/23 XL] oxyCODONE HCL [oxyCODONE HCL (IR)] 10 mg PO TID 09/21/23 09/21/23 Previous Rx's Medication Instructions Recorded Ezetimibe [Zetia] 10 mg PO DAILY 30 Days #30 tab 01/30/20 Primidone [Mysoline] 125 mg PO BID #60 tab 06/22/23 Cephalexin [Keflex] 500 mg PO Q8HR 7 Days #21 cap 09/26/23 Hydrocortisone Suppository 25 mg RECTAL DAILY 5 Days #5 09/26/23 [Anusol-Hc] suppositor INSULIN ASPART (NovoLOG) [NovoLOG 0 unit SQ ACHS each 09/26/23 (formulary)] Sennosides [Senokot] 8.6 mg PO BID #30 tab 09/26/23 Allergies Allergy/AdvReac Type Severity Reaction Status Date / Time Iodinated Contrast Media Allergy Rash/Hives Verified 09/21/23 22:48 Iodine and Iodide Containing Allergy Rash/Hives Verified 09/21/23 22:48 Produc liraglutide [From Saxenda] AdvReac Unknown Nausea & Verified 09/21/23 22:48 Vomiting NSAIDS (Non-Steroidal AdvReac Unknown Nausea & Verified 09/21/23 22:48 Anti-Inflamma Vomiting aspirin AdvReac Nausea & Verified 09/21/23 22:48 Vomiting with high doses azithromycin AdvReac Vomiting Verified 09/21/23 22:48 naproxen [From Naprosyn] AdvReac Nausea & Verified 09/21/23 22:48 Vomiting Review of Systems ROS Statement: Those systems with pertinent positive or pertinent negative responses have been documented in the HPI. ROS Other: All systems not noted in ROS Statement are negative. Past Medical History Past Medical History: Blood Disorder, Cancer, Diabetes Mellitus, Deep Vein Thrombosis (DVT), GERD/Reflux, Hyperlipidemia, Hypertension, Myocardial Infarction (NM), Neurologic Disorder, Osteoarthritis (OA), Pulmonary Embolus (PE), Thyroid Disorder Additional Past Medical History / Comment(s): Factor 5 leiden, DVT L leg, PE L lung, MIs x 5, palpitations, IDDM type II, neuropathy bilateral legs/feet, lymphedema L leg, charcot syndrome L foot, chronic low back pain, bilateral sciatica,hx bronchitis, anemia, hypothyroid, hx UTI, IBS, sinus problems, worsening tremors, "stomach shivering inside" plans to f/u with pcp. skin cancer removal. hx of pneumonia long ago, pelvic fx Last Myocardial Infarction Date:: January 2020 History of Any Multi-Drug Resistant Organisms: VRE Date of last positivie culture/infection: 08/24/23 MDRO Source:: Urine Past Surgical History: Appendectomy, Cholecystectomy, Heart Catheterization With Stent, Hernia Repair, Hysterectomy, Tonsillectomy Additional Past Surgical History / Comment(s): Bilateral salpingectomy, b ilateral oophorectomy, abdominal hernia surgeries, L foot fracture, bilateral cataract removals, epidural injections with last on 01/20/20 lumbar, LAST PROCEDURE 04/19/21 Past Anesthesia/Blood Transfusion Reactions: No Reported Reaction Additional Past Anesthesia/Blood Transfusion Reaction / Comment(s): Pt has received blood in past without reaction. Date of Last Stent Placement:: January 2020 Past Psychological History: Anxiety, Depression, Panic Disorder Smoking Status: Former smoker Past Alcohol Use History: None Reported Past Drug Use History: None Reported - Past Family History Mother Family Medical History: COPD Additional Family Medical History / Comment(s): Mother was a smoker. Father Family Medical History: Cancer Additional Family Medical History / Comment(s): Lung cancer. Father was a smoker. Son(s) Family Medical History: Deep Vein Thrombosis (DVT) General Exam - General Exam Comments Initial Comments: Physical Exam GENERAL: Morbidly obese female appears uncomfortable HENT: Normocephalic, Atraumatic EYES: PERRL, EOMI PULMONARY: Unlabored respirations CARDIOVASCULAR: RRR Warm and well perfused extremities ABDOMEN: Non-distended SKIN: Skin breakdown in intertriginous folds Chronic venous stasis left lower extremity greater than right : Deferred NEUROLOGIC: Alert and oriented Normal speech Normal gait MUSCULOSKELETAL: Bilateral lower extremity edema No pain with range of motion of the right hip Some pain to tenderness to palpation in the right gluteus PSYCHIATRIC: No SI/HI Limitations: no limitations Course Vital Signs 10/25/23 10/25/23 10/25/23 03:09 04:33 05:00 Temperature 99.6 F Pulse Rate 97 98 99 Respiratory 18 16 16 Rate Blood Pressure 139/69 152/64 132/54 O2 Sat by Pulse 96 95 95 Oximetry 10/25/23 06:11 Temperature Pulse Rate 103 H Respiratory 16 Rate Blood Pressure 145/55 O2 Sat by Pulse 95 Oximetry Medical Decision Making - Medical Decision Making Was pt. sent in by a medical professional or institution (, PA, ASSOCIATE DIRECTOR FINANCE, urgent care, hospital, or [place] health care facility...) When possible be specific @ -No Did you speak to anyone other than the patient for history (EMS, parent, family, police, friend...)? What history was obtained from this source @ -EMS Did you review nursing and triage notes (agree or disagree)? Why? @ -I reviewed and agree with nursing and triage notes Were old charts reviewed (outside hosp., previous admission, EMS record, old EKG, old radiological studies, urgent care reports/EKG's, [place] health care facility records)? Report findings @ -Previous visits were reviewed Differential Diagnosis (chest pain, altered mental status, abdominal pain women, abdominal pain men, vaginal bleeding, weakness, fever, dyspnea, syncope, headache, dizziness, GI bleed, back pain, seizure, CVA, palpatations, mental health)? @ -Differential includes sciatica, muscle sprain, pathologic fracture EKG interpreted by me (3pts min.). @ -As above X-rays interpreted by me (1pt min.). @ -No obvious fractures or dislocations CT interpreted by me (1pt min.). @ -None done U/S interpreted by me (1pt. min.). @ -None done What testing was considered but not performed or refused? (CT, X-rays, U/S, labs)? Why? @ -None What meds were considered but not given or refused? Why? @ -None Did you discuss the management of the patient with other professionals (cece aragon i.e. , PA, ASSOCIATE DIRECTOR FINANCE, lab, RT, psych nurse, social service director, formula clerk, teacher, ship's electronic warfare officer, major case detective)? Give summary @ -No Was smoking cessation discussed for >3mins.? @ -No Was critical care preformed (if so, how long)? @ -No Were there social determinants of health that impacted care today? How? (Homelessness, low income, unemployed, alcoholism, drug addiction, transportation, low edu. Level, literacy, decrease access to med. care, senior living, rehab)? @ -No Was there de-escalation of care discussed even if they declined (Discuss DNR or withdrawal of care, Hospice)? DNR status @ -No What co-morbidities impacted this encounter? (DM, HTN, Smoking, COPD, CAD, Cancer, CVA, ARF, Chemo, Hep., AIDS, mental health diagnosis, sleep apnea, morbid obesity)? @ -None Was patient admitted / discharged? Hospital course, mention meds given and route, prescriptions, significant lab abnormalities, going to OR and other pertinent info. @ -Discharged Patient was seen and evaluated, basic labs urinalysis and an x-ray of the right hip were obtained. Labs are at baseline for the patient, urinalysis with no signs of infection and x-ray with no acute findings. Patient received a single dose of Toradol for pain management. Upon reevaluation patient was sleeping comfortably and was in no acute distress. Undiagnosed new problem with uncertain prognosis? @ -No Drug Therapy requiring intensive monitoring for toxicity (Heparin, Nitro, Insulin, Cardizem)? @ -No Were any procedures done? @ -No Diagnosis/symptom? @Hip pain Acute, or Chronic, or Acute on Chronic? @ -Acute Uncomplicated (without systemic symptoms) or Complicated (systemic symptoms)? @ -Uncomplicated Side effects of treatment? @ -No Exacerbation, Progression, or Severe Exacerbation? @ -No Poses a threat to life or bodily function? How? (Chest pain, USA, NM, pneumonia, PE, COPD, DKA, ARF, appy, cholecystitis, CVA, Diverticulitis, Homicidal, Suicidal, threat to staff... and all critical care pts) @ -No - Lab Data Result diagrams: 10/25/23 04:28 10/25/23 04:28 Lab Results 10/25/23 10/25/23 10/25/23 Range/Units 04:28 04:28 04:28 WBC 7.9 (3.8-10.6) k/uL RBC 3.30 L (3.80-5.40) m/uL Hgb 10.6 L (11.4-16.0) gm/dL Hct 33.7 L (34.0-46.0) % MCV 102.1 H (80.0-100.0) fL MCH 32.2 (25.0-35.0) pg MCHC 31.5 (31.0-37.0) g/dL RDW 18.2 H (11.5-15.5) % Plt Count 170 (150-450) k/uL MPV 9.0 Neutrophils % 76 % Lymphocytes % 16 % Monocytes % 4 % Eosinophils % 4 % Basophils % 0 % Neutrophils # 6.0 (1.3-7.7) k/uL Lymphocytes # 1.2 (1.0-4.8) k/uL Monocytes # 0.3 (0-1.0) k/uL Eosinophils # 0.3 (0-0.7) k/uL Basophils # 0.0 (0-0.2) k/uL Hypochromasia Moderate Anisocytosis Slight Macrocytosis Moderate Sodium 137 (137-145) mmol/L Potassium 5.0 (3.5-5.1) mmol/L Chloride 107 (98-107) mmol/L Carbon Dioxide 24 (22-30) mmol/L Anion Gap 6 mmol/L BUN 15 (7-17) mg/dL Creatinine 0.70 (0.52-1.04) mg/dL Est GFR (CKD-EPI)AfAm >90 (>60 ml/min/1.73 sqM) Est GFR (CKD-EPI)NonAf 89 (>60 ml/min/1.73 sqM) Glucose 196 H (74-99) mg/dL Calcium 8.1 L (8.4-10.2) mg/dL Total Bilirubin 0.5 (0.2-1.3) mg/dL AST 34 (14-36) U/L ALT 18 (4-34) U/L Alkaline Phosphatase 329 H (38-126) U/L Total Protein 6.8 (6.3-8.2) g/dL Albumin 3.2 L (3.5-5.0) g/dL Urine Color Colorless Urine Appearance Clear (Clear) Urine pH 7.0 (5.0-8.0) Ur Specific [place] 1.011 (1.001-1.035) Urine Protein Negative (Negative) Urine Glucose (UA) 1+ H (Negative) Urine Ketones Negative (Negative) Urine Blood Negative (Negative) Urine Nitrite Negative (Negative) Urine Bilirubin Negative (Negative) Urine Urobilinogen 2.0 (<2.0) mg/dL Ur Leukocyte Esterase Negative (Negative) Disposition Clinical Impression: Hip pain Disposition: HOME SELF-CARE Condition: Stable Additional Instructions: Continue follow up with physical therapy Is patient prescribed a controlled substance at d/c from ED?: No Referrals: Miguel Sy MD [Primary Care Provider] - 1-2 days
[2023-10-25 03:30] VITALS: TEMP 99.6
[2023-10-25] MEDS: MORPHINE SULFATE 4 MG/ML SYRINGE IVP STA (04:02)
[2023-10-25] MEDS: KETOROLAC 15 MG/ML 1 ML VIAL IVP STA (04:04)
--- NOTE | 2023-10-25 04:22 | XR ---
EXAM: XR Right Hip With Pelvis When Performed, 1 View CLINICAL HISTORY: ITS.REASON XR Reason: pain TECHNIQUE: Frontal view of the right hip with pelvis when performed. COMPARISON: No relevant prior studies available. FINDINGS: Bones/joints: No fracture or dislocation. Osseous demineralization. Soft tissues: Vascular calcifications. IMPRESSION: No fracture.
[2023-10-25 04:35] VITALS: RESP 16
[2023-10-25 04:48] LABS: Appearance,Urine Clear (Clear); Bilirubin,Urine Negative (Negative); Blood,Urine Negative (Negative); Color,Urine Colorless; Glucose,Urine (UA) 1+ (Negative); Ketones,Urine Negative (Negative); Leukocyte Esterase,Urine Negative (Negative); Nitrite,Urine Negative (Negative); Protein,Urine Negative (Negative); Specific Gravity,Urine 1.011 (1.001-1.035)
[2023-10-25 04:57] LABS: Anisocytosis Slight; Basophils % (A) 0 %; Eosinophils # (A) 0.3 k/uL (0-0.7); Eosinophils % (A) 4 %; HCT 33.7 % (34.0-46.0); HGB 10.6 gm/dL (11.4-16.0); Hypochromasia Moderate; Lymphocytes # (A) 1.2 k/uL (1.0-4.8); Lymphocytes % (A) 16 %; MCH 32.2 pg (25.0-35.0); MCHC 31.5 g/dL (31.0-37.0); MCV 102.1 fL (80.0-100.0); Macrocytosis Moderate; Monocytes # (A) 0.3 k/uL (0-1.0); Monocytes % (A) 4 %; Neutrophils % (A) 76 %; Platelet Count 170 k/uL (150-450); RDW 18.2 % (11.5-15.5); WBC 7.9 k/uL (3.8-10.6)
[2023-10-25 05:05] LABS: ALT 18 U/L (4-34); AST 34 U/L (14-36); African American GFR (CKD) >90 (>60 ml/min/1.73 sqM); Albumin 3.2 g/dL (3.5-5.0); Alkaline Phosphatase 329 U/L (38-126); Anion Gap 6 mmol/L; Blood Urea Nitrogen 15 mg/dL (7-17); Calcium 8.1 mg/dL (8.4-10.2); Carbon Dioxide 24 mmol/L (22-30); Chloride 107 mmol/L (98-107); Glucose 196 mg/dL (74-99); Non-African American GFR(CKD) 89 (>60 ml/min/1.73 sqM); Sodium 137 mmol/L (137-145); Total Bilirubin 0.5 mg/dL (0.2-1.3); Total Protein 6.8 g/dL (6.3-8.2)
[2023-10-25 07:23] VITALS: BP 127/46; PULSE 99
== END 2023-10-25 07:55 | disposition home or self-care (01) ==
LOC: EC 03:08
DX: M25.551 Pain in right hip (principal); Z87.891 Personal history of nicotine dependence; Z91.041 Radiographic dye allergy status; Z88.8 Allergy status to other drugs, medicaments and biological substances; Z88.1 Allergy status to other antibiotic agents
CPT/HCPCS: 36415; 80053; 85025; 81003; 73502; 99284; 96374; J1885

== ENCOUNTER 2023-10-30 01:40 | Emergency (ER) | payer MEDICARE, BC ==
[2023-10-30 02:29] VITALS: TEMP 97.7
--- NOTE | 2023-10-30 02:56 | XR ---
EXAMINATION TYPE: XR Hip RT and AP Pelvis DATE OF EXAM: 10/30/2023 COMPARISON: Prior right hip x-ray 5 days earlier HISTORY: Right hip pain for one week. TECHNIQUE: A single AP view of the pelvis is obtained. Two views of the right hip are obtained. FINDINGS: Evaluation is suboptimal due to patient's large body habitus. Subacute fractures through th e left superior and inferior pelvic rami are redemonstrated. No new acute displaced fracture in the p [place] or right hip. Moderate narrowing and acetabular spurring of both hips redemonstrated. Pubic sy mphysis remains intact. IMPRESSION: There is no new acute displaced fracture in the pelvis or right hip.
--- NOTE | 2023-10-30 03:10 | ED ---
Lower Extremity Injury HPI - General Chief Complaint: Extremity Injury, Lower Stated Complaint: Chronic back and hip pain Time Seen by Provider: 10/30/23 02:00 Source: patient Mode of arrival: EMS Limitations: no limitations - History of Present Illness Initial Comments: 68-year-old female presenting with chief complaint of right-sided hip pain. Patient has history of chronic hip pain. She does have history of an old pubic ramus fracture. She has had no new injury or trauma. Patient at baseline already takes Oxycodone 3 times daily. States that she was having pain that she could not manage at home tonight. No redness swelling or discoloration. No fevers or chills. No chest pain or difficulty breathing. No abdominal pain, nausea, vomiting. - Related Data Home Medications Medication Instructions Recorded Confirmed Clopidogrel [Plavix] 75 mg PO DAILY 07/07/19 09/21/23 traZODone HCL [Desyrel] 200 mg PO HS 07/07/19 09/21/23 Insulin Glargine,Hum.rec.anlog 50 units SQ BID 06/09/21 09/21/23 [Lantus Solostar Pen] Levothyroxine Sodium [Synthroid] 300 mcg PO DAILY 08/30/21 09/21/23 Metoclopramide [Reglan] 5 mg PO QID PRN 09/10/21 09/21/23 diphenhydrAMINE HCL [Benadryl] 25 mg PO DAILY PRN 06/21/23 09/21/23 ALPRAZolam [Xanax] 2 mg PO TID 09/21/23 09/21/23 Aspirin EC [Ecotrin Low Dose] 81 mg PO DAILY 09/21/23 09/21/23 Insulin Lispro [humaLOG Kwikpen] See Protocol SQ AC-TID 09/21/23 09/21/23 Metoprolol Succinate (ER) [Toprol 25 mg PO DAILY 09/21/23 09/21/23 XL] oxyCODONE HCL [oxyCODONE HCL (IR)] 10 mg PO TID 09/21/23 09/21/23 Previous Rx's Medication Instructions Recorded Ezetimibe [Zetia] 10 mg PO DAILY 30 Days #30 tab 01/30/20 Primidone [Mysoline] 125 mg PO BID #60 tab 11/17/23 Cephalexin [Keflex] 500 mg PO Q8HR 7 Days #21 cap 09/26/23 Hydrocortisone Suppository 25 mg RECTAL DAILY 5 Days #5 09/26/23 [Anusol-Hc] suppositor INSULIN ASPART (NovoLOG) [NovoLOG 0 unit SQ ACHS each 09/26/23 (formulary)] Sennosides [Senokot] 8.6 mg PO BID #30 tab 09/26/23 Allergies Allergy/AdvReac Type Severity Reaction Status Date / Time Iodinated Contrast Media Allergy Rash/Hives Verified 09/21/23 22:48 Iodine and Iodide Containing Allergy Rash/Hives Verified 09/21/23 22:48 Produc liraglutide [From Saxenda] AdvReac Unknown Nausea & Verified 09/21/23 22:48 Vomiting NSAIDS (Non-Steroidal AdvReac Unknown Nausea & Verified 09/21/23 22:48 Anti-Inflamma Vomiting aspirin AdvReac Nausea & Verified 09/21/23 22:48 Vomiting with high doses azithromycin AdvReac Vomiting Verified 09/21/23 22:48 naproxen [From Naprosyn] AdvReac Nausea & Verified 09/21/23 22:48 Vomiting Review of Systems ROS Statement: Those systems with pertinent positive or pertinent negative responses have been documented in the HPI. ROS Other: All systems not noted in ROS Statement are negative. Past Medical History Past Medical History: Blood Disorder, Cancer, Diabetes Mellitus, Deep Vein Thrombosis (DVT), GERD/Reflux, Hyperlipidemia, Hypertension, Myocardial Infarction (NE), Neurologic Disorder, Osteoarthritis (OA), Pulmonary Embolus (PE), Thyroid Disorder Additional Past Medical History / Comment(s): Factor 5 leiden, DVT L leg, PE L lung, MIs x 5, palpitations, IDDM type II, neuropathy bilateral legs/feet, lymphedema L leg, charcot syndrome L foot, chronic low back pain, bilateral sciatica,hx bronchitis, anemia, hypothyroid, hx UTI, IBS, sinus problems, worsening tremors, "stomach shivering inside" plans to f/u with pcp. skin cancer removal. hx of pneumonia long ago, pelvic fx Last Myocardial Infarction Date:: January 2020 History of Any Multi-Drug Resistant Organisms: VRE Date of last positivie culture/infection: 08/24/23 MDRO Source:: Urine Past Surgical History: Appendectomy, Cholecystectomy, Heart Catheterization With Stent, Hernia Repair, Hysterectomy, Tonsillectomy Additional Past Surgical History / Comment(s): Bilateral salpingectomy, bilateral oophorectomy, abdominal hernia surgeries, L foot fracture, bilateral cataract removals, epidural injections with last on 01/20/20 lumbar, LAST PROCEDURE 04/19/21 Past Anesthesia/Blood Transfusion Reactions: No Reported Reaction Additional Past Anesthesia/Blood Transfusion Reaction / Comment(s): Pt has received blood in past without reaction. Date of Last Stent Placement:: January 2020 Past Psychological History: Anxiety, Depression, Panic Disorder Smoking Status: Former smoker Past Alcohol Use History: None Reported Past Drug Use History: None Reported - Past Family History Mother Family Medical History: COPD Additional Family Medical History / Comment(s): Mother was a smoker. Father Family Medical History: Cancer Additional Family Medical History / Comment(s): Lung cancer. Father was a smoker. Son(s) Family Medical History: Deep Vein Thrombosis (DVT) General Exam Limitations: no limitations General appearance: alert, in no apparent distress Head exam: Present: atraumatic, normocephalic Eye exam: Present: normal appearance Neck exam: Present: normal inspection Respiratory exam: Absent: respiratory distress Extremities exam: Present: normal inspection, normal capillary refill Neurological exam: Present: alert, oriented X3 Psychiatric exam: Present: normal affect, normal mood Skin exam: Present: warm, dry Course Vital Signs 10/30/23 10/30/23 02:01 04:10 Temperature 97.7 F Pulse Rate 82 55 L Respiratory 20 16 Rate Blood Pressure 123/72 134/85 O2 Sat by Pulse 94 L Oximetry Medical Decision Making - Medical Decision Making Was pt. sent in by a medical professional or institution (Dr. PA, DIRECTOR OF FLIGHT OPERATIONS, urgent care, hospital, or correction...) When possible be specific @ -No Did you speak to anyone other than the patient for history (EMS, parent, family, police, friend...)? What history was obtained from this source @ -No Did you review nursing and triage notes (agree or disagree)? Why? @ -I reviewed and agree with nursing and triage notes Were old charts reviewed (outside hosp., previous admission, EMS record, old EKG, old radiological studies, urgent care reports/EKG's, correction records)? Report findings @ -No old charts were reviewed Differential Diagnosis (chest pain, altered mental status, abdominal pain women, abdominal pain men, vaginal bleeding, weakness, fever, dyspnea, syncope, headache, dizziness, GI bleed, back pain, seizure, CVA, palpatations, mental health, musculoskeletal)? @ -Differential Musculoskeletal Muscular strain, contusion, ligament sprain, fracture, arthritis, septic arthritis, bursitis, cellulitis, muscle spasm, nerve compression, DVT, arterial occlusion, herpes zoster, electrolyte abnormality, tumor.... This is not meant to be in all inclusive list EKG interpreted by me (3pts min.). @ -As above X-rays interpreted by me (1pt min.). @ -X-ray shows no new acute displaced fracture in the pelvis or right hip CT interpreted by me (1pt min.). @ -None done U/S interpreted by me (1pt. min.). @ -None done What testing was considered but not performed or refused? (CT, X-rays, U/S, labs)? Why? @ -None What meds were considered but not given or refused? Why? @ -None Did you discuss the management of the patient with other professionals (professionals i.e. , PA, DIRECTOR OF FLIGHT OPERATIONS, lab, RT, psych nurse, social services specialist, liquid compounder, teacher, head correction officer, field nurse case manager)? Give summary @ -No Was smoking cessation discussed for >3mins.? @ -No Was critical care preformed (if so, how long)? @ -No Were there social determinants of health that impacted care today? How? (Homelessness, low income, unemployed, alcoholism, drug addiction, transportation, low edu. Level, literacy, decrease access to med. care, shelter, rehab)? @ -No Was there de-escalation of care discussed even if they declined (Discuss DNR or withdrawal of care, Hospice)? DNR status @ -No What co-morbidities impacted this encounter? (DM, HTN, Smoking, COPD, CAD, Cancer, CVA, ARF, Chemo, Hep., AIDS, mental health diagnosis, sleep apnea, morbid obesity)? @ -None Was patient admitted / discharged? Hospital course, mention meds given and route, prescriptions, significant lab abnormalities, going to OR and other pertinent info. @ -68-year-old female presenting with chief complaint of right hip pain. No injury or trauma. History of chronic pain. Neurovascularly intact. Patient is a chronic opioid user. Negative x-rays. Patient is given pain medication and discharged home. Follow-up with PCP. Report back to ER with any new or worsening symptoms. Discussed return parameters and answered all questions. Patient conveyed verbal understanding and agreed to the plan. I discussed this case in detail with my attending Dr. Amin Undiagnosed new problem with uncertain prognosis? @ -No Drug Therapy requiring intensive monitoring for toxicity (Heparin, Nitro, Insulin, Cardizem)? @ -No Were any procedures done? @ -No Diagnosis/symptom? @ -Hip pain Acute, or Chronic, or Acute on Chronic? @ -Acute on chronic Uncomplicated (without systemic symptoms) or Complicated (systemic symptoms)? @ -Uncomplicated Side effects of treatment? @ -No Exacerbation, Progression, or Severe Exacerbation? @ -No Poses a threat to life or bodily function? How? (Chest pain, USA, NE, pneumonia, PE, COPD, DKA, ARF, appy, cholecystitis, CVA, Diverticulitis, Homicidal, Suicidal, threat to staff... and all critical care pts) @ -No Disposition Clinical Impression: Hip pain Disposition: HOME SELF-CARE Condition: Good Instructions (If sedation given, give patient instructions): Hip Pain (ED) Additional Instructions: Follow-up with PCP. Report back to ER with any new or worsening symptoms. Is patient prescribed a controlled substance at d/c from ED?: No Referrals: Miguel Sy MD [Primary Care Provider] - 1-2 days Time of Disposition: 03:10
[2023-10-30] MEDS: MORPHINE SULFATE 4 MG/ML SYRINGE IM STA (03:31)
[2023-10-30] MEDS: MORPHINE SULFATE 4 MG/ML SYRINGE IVP STA (03:31)
[2023-10-30 04:38] VITALS: BP 134/85; PULSE 55; RESP 16
== END 2023-10-30 04:24 | disposition home or self-care (01) ==
LOC: EC 01:40
DX: M25.551 Pain in right hip (principal); Z87.891 Personal history of nicotine dependence; Z91.041 Radiographic dye allergy status; Z88.1 Allergy status to other antibiotic agents; Z88.8 Allergy status to other drugs, medicaments and biological substances
CPT/HCPCS: 73502; 99284; 96372; J2270

== ENCOUNTER 2023-11-14 11:30 | Emergency (ER) | payer MEDICARE, BC ==
[2023-11-14 11:40] VITALS: PULSE 94; RESP 18; TEMP 98
--- NOTE | 2023-11-14 11:56 | ED ---
General Adult HPI - General Chief complaint: Extremity Injury, Lower Stated complaint: knee pain Time Seen by Provider: 11/14/23 11:35 Source: EMS Mode of arrival: EMS Limitations: no limitations - History of Present Illness Initial comments: Dictation was produced using [employer] dictation software. please excuse any grammatical, word or spelling errors. Chief Complaint: 68-year-old female presents to the emergency department left knee pain History of Present Illness: Patient is a 68-year-old female she fell yesterday. She denies hitting her head or losing consciousness. She does take blood thinners. Patient complains of pain to her left knee down. Denies any known history of left knee arthritis. She does have history of lymphedema. The ROS documented in this emergency department record has been reviewed and confirmed by me. Those systems with pertinent positive or negative responses have been documented in the HPI. All other systems are other negative and/or noncontributory. - Related Data Home Medications Medication Instructions Recorded Confirmed Clopidogrel [Plavix] 75 mg PO DAILY 07/07/19 09/21/23 traZODone HCL [Desyrel] 200 mg PO HS 07/07/19 09/21/23 Insulin Glargine,Hum.rec.anlog 50 units SQ BID 06/09/21 09/21/23 [Lantus Solostar Pen] Levothyroxine Sodium [Synthroid] 300 mcg PO DAILY 08/30/21 09/21/23 Metoclopramide [Reglan] 5 mg PO QID PRN 09/10/21 09/21/23 diphenhydrAMINE HCL [Benadryl] 25 mg PO DAILY PRN 06/21/23 09/21/23 ALPRAZolam [Xanax] 2 mg PO TID 09/21/23 09/21/23 Aspirin EC [Ecotrin Low Dose] 81 mg PO DAILY 09/21/23 09/21/23 Insulin Lispro [humaLOG Kwikpen] See Protocol SQ AC-TID 09/21/23 09/21/23 Metoprolol Succinate (ER) [Toprol 25 mg PO DAILY 09/21/23 09/21/23 XL] oxyCODONE HCL [oxyCODONE HCL (IR)] 10 mg PO TID 09/21/23 09/21/23 Previous Rx's Medication Instructions Recorded Ezetimibe [Zetia] 10 mg PO DAILY 30 Days #30 tab 01/30/20 Primidone [Mysoline] 125 mg PO BID #60 tab 06/22/23 Cephalexin [Keflex] 500 mg PO Q8HR 7 Days #21 cap 09/26/23 Hydrocortisone Suppository 25 mg RECTAL DAILY 5 Days #5 09/26/23 [Anusol-Hc] suppositor INSULIN ASPART (NovoLOG) [NovoLOG 0 unit SQ ACHS each 09/26/23 (formulary)] Sennosides [Senokot] 8.6 mg PO BID #30 tab 09/26/23 Allergies Allergy/AdvReac Type Severity Reaction Status Date / Time Iodinated Contrast Media Allergy Rash/Hives Verified 11/14/23 11:36 Iodine and Iodide Containing Allergy Rash/Hives Verified 11/14/23 11:36 Produc liraglutide [From Saxenda] AdvReac Unknown Nausea & Verified 11/14/23 11:36 Vomiting NSAIDS (Non-Steroidal AdvReac Unknown Nausea & Verified 11/14/23 11:36 Anti-Inflamma Vomiting aspirin AdvReac Nausea & Verified 11/14/23 11:36 Vomiting with high doses azithromycin AdvReac Vomiting Verified 11/14/23 11:36 naproxen [From Naprosyn] AdvReac Nausea & Verified 11/14/23 11:36 Vomiting Review of Systems ROS Statement: Those systems with pertinent positive or pertinent negative responses have been documented in the HPI. ROS Other: All systems not noted in ROS Statement are negative. Past Medical History Past Medical History: Blood Disorder, Cancer, Diabetes Mellitus, Deep Vein Thrombosis (DVT), GERD/Reflux, Hyperlipidemia, Hypertension, Myocardial Infarction (NE), Neurologic Disorder, Osteoarthritis (OA), Pulmonary Embolus (PE), Thyroid Disorder Additional Past Medical History / Comment(s): Factor 5 leiden, DVT L leg, PE L lung, MIs x 5, palpitations, IDDM type II, neuropathy bilateral legs/feet, lymphedema L leg, charcot syndrome L foot, chronic low back pain, bilateral sciatica,hx bronchitis, anemia, hypothyroid, hx UTI, IBS, sinus problems, worse mukesh tremors, "stomach shivering inside" plans to f/u with pcp. skin cancer removal. hx of pneumonia long ago, pelvic fx Last Myocardial Infarction Date:: January 2020 History of Any Multi-Drug Resistant Organisms: VRE Date of last positivie culture/infection: 08/24/23 MDRO Source:: Urine Past Surgical History: Appendectomy, Cholecystectomy, Heart Catheterization With Stent, Hernia Repair, Hysterectomy, Tonsillectomy Additional Past Surgical History / Comment(s): Bilateral salpingectomy, bilateral oophorectomy, abdominal hernia surgeries, L foot fracture, bilateral cataract removals, epidural injections with last on 01/20/20 lumbar, LAST PROCEDURE 04/19/21 Past Anesthesia/Blood Transfusion Reactions: No Reported Reaction Additional Past Anesthesia/Blood Transfusion Reaction / Comment(s): Pt has received blood in past without reaction. Date of Last Stent Placement:: January 2020 Past Psychological History: Anxiety, Depression, Panic Disorder Smoking Status: Former smoker Past Alcohol Use History: None Reported Past Drug Use History: None Reported - Past Family History Mother Family Medical History: COPD Additional Family Medical History / Comment(s): Mother was a smoker. Father Family Medical History: Cancer Additional Family Medical History / Comment(s): Lung cancer. Father was a smoker. Son(s) Family Medical History: Deep Vein Thrombosis (DVT) General Exam - General Exam Comments Initial Comments: PHYSICAL EXAM: General Impression: Alert and oriented x3, not in acute distress HEENT: Normocephalic atraumatic, extra-ocular movements intact, pupils equal and reactive to light bilaterally, mucous membranes moist. Cardiovascular: Heart regular rate and rhythm Chest: Able to complete full sentences, no retractions, no tachypnea Abdomen: abdomen soft, non-tender, non-distended, no organomegaly Musculoskeletal: Pulses present and equal in all extremities, no peripheral edema Motor: no focal deficits noted Neurological: CN II-XII grossly intact, no focal motor or sensory deficits noted Skin: Intact with no visualized rashes Psych: Normal affect and mood Extremity: Lymphedema, palpatory tenderness to the left knee Limitations: no limitations Course Vital Signs 11/14/23 11/14/23 11:34 11:46 Temperature 98 F Pulse Rate 94 Respiratory 18 Rate Blood Pressure 143/60 O2 Sat by Pulse 90 L 98 Oximetry Medical Decision Making - Medical Decision Making Was pt. sent in by a medical professional or institution (, PA, [employer], urgent care, hospital, or residential...) When possible be specific @ -No Did you speak to anyone other than the patient for history (EMS, parent, family, police, friend...)? What history was obtained from this source @ -No Did you review nursing and triage notes (agree or disagree)? Why? @ -I reviewed and agree with nursing and triage notes Were old charts reviewed (outside hosp., previous admission, EMS record, old EKG, old radiological studies, urgent care reports/EKG's, residential records)? Report findings @ -No old charts were reviewed Differential Diagnosis (chest pain, altered mental status, abdominal pain women, abdominal pain men, vaginal bleeding, musculoskeletal, weakness, fever, dyspnea, syncope, headache, dizziness, GI bleed, back pain, seizure, CVA, palpatations, mental health)? @ -Not applicable EKG interpreted by me (3pts min.). @ -None done X-rays interpreted by me (1pt min.). @ -Left lower extremity x-rays are unremarkable CT interpreted by me (1pt min.). @ -None done U/S interpreted by me (1pt. min.). @ -None done What testing was considered but not performed or refused? (CT, X-rays, U/S, labs)? Why? @ -None What meds were considered but not given or refused? Why? @ -None Did you discuss the management of the patient with other professionals (professionals i.e. , PA, [employer], lab, RT, psych nurse, social worker clinical, information receptionist, teacher, sheriff's officer, case picker)? Give summary @ -No Was smoking cessation discussed for >3mins.? @ -No Was critical care preformed (if so, how long)? @ -No Were there social determinants of health that impacted care today? How? (Homelessness, low income, unemployed, alcoholism, drug addiction, transportation, low edu. Level, literacy, decrease access to med. care, fpc, rehab)? @ -No Was there de-escalation of care discussed even if they declined (Discuss DNR or withdrawal of care, Hospice)? DNR status @ -No What co-morbidities impacted this encounter? (DM, HTN, Smoking, COPD, CAD, Cancer, CVA, ARF, Chemo, Hep., AIDS, mental health diagnosis, sleep apnea, morbid obesity)? @ -None Was patient admitted / discharged? Hospital course, mention meds given and route, prescriptions, significant lab abnormalities, going to OR and other pertinent info. @ -68-year-old female presents to the emergency department with knee pain suffered from fall yesterday. Vital signs stable. Physical examination is benign. No gross deformities to the left lower extremity. Knee exam is unremarkable. X-rays negative. Patient given analgesics. Clinical presentation consistent with knee contusion versus knee strain. Patient discharged told to follow-up with primary care doctor. Undiagnosed new problem with uncertain prognosis? @ -No Drug Therapy requiring intensive monitoring for toxicity (Heparin, Nitro, Insulin, Cardizem)? @ -No Were any procedures done? @ -No Diagnosis/symptom? Acute, or Chronic, or Acute on Chronic? Uncomplicated (without systemic symptoms) or Complicated (systemic symptoms)? @ -Knee strain Side effects of treatment? @ -No Exacerbation, Progression, or Severe Exacerbation? @ -No Poses a threat to life or bodily function? How? (Chest pain, USA, NE, pneumonia, PE, COPD, DKA, ARF, appy, cholecystitis, CVA, Diverticulitis, Homicidal, Suicidal, threat to staff... and all critical care pts) @ -No Disposition Clinical Impression: Knee pain Disposition: HOME SELF-CARE Condition: Fair Instructions (If sedation given, give patient instructions): Knee Pain (ED) Is patient prescribed a controlled substance at d/c from ED?: No Referrals: Miguel Sy MD [Primary Care Provider] - 1-2 days Time of Disposition: 13:26
[2023-11-14] MEDS: HYDROmorphone 1 MG/ML 1 ML SYRINGE IM STA (11:59)
--- NOTE | 2023-11-14 12:46 | XR ---
EXAMINATION TYPE: XR tibia fibula LT DATE OF EXAM: 11/14/2023 COMPARISON: None HISTORY: Fall, pain TECHNIQUE: 2 view left tibia and fibula. FINDINGS: No acute fracture or dislocation is evident. Soft tissues appear normal. IMPRESSION: 1. No acute osseous abnormality left tibia and fibula
--- NOTE | 2023-11-14 12:47 | XR ---
EXAMINATION TYPE: XR knee complete LT DATE OF EXAM: 11/14/2023 COMPARISON: None HISTORY: Fall, pain TECHNIQUE: 3 view left knee FINDINGS: Joint spaces are preserved. No acute fracture or dislocation is evident. Anterior superior patellar spur is present. No joint effusion is evident. IMPRESSION: 1. No acute osseous abnormality left knee. Follow-up exam can be performed 7-10 days from acute trau ma for continued pain.
[2023-11-14] MEDS: traMADol 50 MG STARTER PACK 3 TAB BTL PO STA (13:43)
[2023-11-14 13:53] VITALS: BP 137/84
== END 2023-11-14 13:53 | disposition home or self-care (01) ==
LOC: EC 11:30
DX: S86.912A Strain of unspecified muscle(s) and tendon(s) at lower leg level, left leg, initial encounter (principal); Z87.891 Personal history of nicotine dependence; Z91.041 Radiographic dye allergy status; Z88.8 Allergy status to other drugs, medicaments and biological substances; Z88.1 Allergy status to other antibiotic agents; W19.XXXA Unspecified fall, initial encounter
CPT/HCPCS: 73590; 73562; 99284; 96372; J1170

== ENCOUNTER 2023-11-25 18:52 | Inpatient (IN) | payer MEDICARE, BC ==
--- NOTE | 2023-11-25 19:18 | ED ---
General Adult HPI - General Chief complaint: Chest Pain Stated complaint: Chest pain Time Seen by Provider: 11/25/23 19:01 Source: patient, RN notes reviewed, old records reviewed Mode of arrival: EMS Limitations: no limitations - History of Present Illness Initial comments: 68-year-old female with chronic pain presenting with diffuse pain complaints in cluding bilateral shoulders, bilateral elbows, bilateral knees. Patient had a and an episode of chest pain which occurred yesterday which she reports was indigestion and she is not concerned about. No dyspnea. No injury. No abdominal pain. No fever. No vomiting. Patient takes Percocet for pain. - Related Data Home Medications Medication Instructions Recorded Confirmed Clopidogrel [Plavix] 75 mg PO DAILY 07/07/19 09/21/23 traZODone HCL [Desyrel] 200 mg PO HS 07/07/19 09/21/23 Insulin Glargine,Hum.rec.anlog 50 units SQ BID 06/09/21 09/21/23 [Lantus Solostar Pen] Levothyroxine Sodium [Synthroid] 300 mcg PO DAILY 08/30/21 09/21/23 Metoclopramide [Reglan] 5 mg PO QID PRN 09/10/21 09/21/23 diphenhydrAMINE HCL [Benadryl] 25 mg PO DAILY PRN 06/21/23 09/21/23 ALPRAZolam [Xanax] 2 mg PO TID 09/21/23 09/21/23 Aspirin EC [Ecotrin Low Dose] 81 mg PO DAILY 09/21/23 09/21/23 Insulin Lispro [humaLOG Kwikpen] See Protocol SQ AC-TID 09/21/23 09/21/23 Metoprolol Succinate (ER) [Toprol 25 mg PO DAILY 09/21/23 09/21/23 XL] oxyCODONE HCL [oxyCODONE HCL (IR)] 10 mg PO TID 09/21/23 09/21/23 Previous Rx's Medication Instructions Recorded Ezetimibe [Zetia] 10 mg PO DAILY 30 Days #30 tab 01/30/20 Primidone [Mysoline] 125 mg PO BID #60 tab 06/22/23 Cephalexin [Keflex] 500 mg PO Q8HR 7 Days #21 cap 09/26/23 Hydrocortisone Suppository 25 mg RECTAL DAILY 5 Days #5 09/26/23 [Anusol-Hc] suppositor INSULIN ASPART (NovoLOG) [NovoLOG 0 unit SQ ACHS each 09/26/23 (formulary)] Sennosides [Senokot] 8.6 mg PO BID #30 tab 09/26/23 Allergies Allergy/AdvReac Type Severity Reaction Status Date / Time Iodinated Contrast Media Allergy Rash/Hives Verified 11/14/23 11:36 Iodine and Iodide Containing Allergy Rash/Hives Verified 11/14/23 11:36 Produc liraglutide [From Saxenda] AdvReac Unknown Nausea & Verified 11/14/23 11:36 Vomiting NSAIDS (Non-Steroidal AdvReac Unknown Nausea & Verified 11/14/23 11:36 Anti-Inflamma Vomiting aspirin AdvReac Nausea & Verified 11/14/23 11:36 Vomiting with high doses azithromycin AdvReac Vomiting Verified 11/14/23 11:36 naproxen [From Naprosyn] AdvReac Nausea & Verified 11/14/23 11:36 Vomiting Review of Systems ROS Statement: Those systems with pertinent positive or pertinent negative responses have been documented in the HPI. ROS Other: All systems not noted in ROS Statement are negative. Past Medical History Past Medical History: Blood Disorder, Cancer, Diabetes Mellitus, Deep Vein Thrombosis (DVT), GERD/Reflux, Hyperlipidemia, Hypertension, Myocardial Infarction (CA), Neurologic Disorder, Osteoarthritis (OA), Pulmonary Embolus (PE), Thyroid Disorder Additional Past Medical History / Comment(s): Factor 5 leiden, DVT L leg, PE L lung, MIs x 5, palpitations, IDDM type II, neuropathy bilateral legs/feet, lymphedema L leg, charcot syndrome L foot, chronic low back pain, bilateral sciatica,hx bronchitis, anemia, hypothyroid, hx UTI, IBS, sinus problems, worsening tremors, "stomach shivering inside" plans to f/u with pcp. skin cancer removal. hx of pneumonia long ago, pelvic fx Last Myocardial Infarction Date:: January 2020 History of Any Multi-Drug Resistant Organisms: VRE Date of last positivie culture/infection: 08/24/23 MDRO Source:: Urine Past Surgical History: Appendectomy, Cholecystectomy, Heart Catheterization With Stent, Hernia Repair, Hysterectomy, Tonsillectomy Additional Past Surgical History / Comment(s): Bilateral salpingectomy, bilateral oophorectomy, abdominal hernia surgeries, L foot fracture, bilateral cataract removals, epidural injections with last on 01/20/20 lumbar, LAST PROCEDURE 04/19/21 Past Anesthesia/Blood Transfusion Reactions: No Reported Reaction Additional Past Anesthesia/Blood Transfusion Reaction / Comment(s): Pt has received blood in past without reaction. Date of Last Stent Placement:: January 2020 Past Psychological History: Anxiety, Depression, Panic Disorder Smoking Status: Former smoker Past Alcohol Use History: None Reported Past Drug Use History: None Reported - Past Family History Mother Family Medical History: COPD Additional Family Medical History / Comment(s): Mother was a smoker. Father Family Medical History: Cancer Additional Family Medical History / Comment(s): Lung cancer. Father was a smo ker. Son(s) Family Medical History: Deep Vein Thrombosis (DVT) General Exam Limitations: no limitations General appearance: alert, in no apparent distress Head exam: Present: atraumatic, normocephalic Eye exam: Present: normal appearance, PERRL ENT exam: Present: normal exam Neck exam: Present: normal inspection. Absent: tenderness, meningismus Respiratory exam: Present: normal lung sounds bilaterally. Absent: respiratory distress, wheezes Cardiovascular Exam: Present: regular rate, normal rhythm GI/Abdominal exam: Present: soft. Absent: distended, tenderness, guarding Neurological exam: Present: alert, oriented X3 Psychiatric exam: Present: normal affect, normal mood Skin exam: Present: warm, dry, intact. Absent: cyanosis, diaphoretic Course Vital Signs 11/25/23 11/25/23 18:56 19:02 Temperature 97.4 F L Pulse Rate 73 Pulse Rate [ 75 [employer] ] Respiratory 18 Rate Blood Pressure 144/71 O2 Sat by Pulse 94 L Oximetry Medical Decision Making - Medical Decision Making Was pt. sent in by a medical professional or institution (, PA, [employer], urgent care, hospital, or detention...) When possible be specific @ -No Did you speak to anyone other than the patient for history (EMS, parent, family, police, friend...)? What history was obtained from this source @ -No Did you review nursing and triage notes (agree or disagree)? Why? @ -I reviewed and agree with nursing and triage notes Were old charts reviewed (outside hosp., previous admission, EMS record, old EKG, old radiological studies, urgent care reports/EKG's, detention records)? Report findings @ -No old charts were reviewed Differential Diagnosis (chest pain, altered mental status, abdominal pain women, abdominal pain men, vaginal bleeding, weakness, fever, dyspnea, syncope, headache, dizziness, GI bleed, back pain, seizure, CVA, palpatations, mental health, musculoskeletal)? @ -Not applicable EKG interpreted by me (3pts min.). @ -Sinus rhythm rate of 75, NC interval 200, QRS duration 92, QTc [address] segment elevation. X-rays interpreted by me (1pt min.). @ -Chest x-ray negative for pneumothorax, negative for focal pneumonia, showing cardiomegaly, possible mild CHF. CT interpreted by me (1pt min.). @ -None done U/S interpreted by me (1pt. min.). @ -None done What testing was considered but not performed or refused? (CT, X-rays, U/S, labs)? Why? @ -None What meds were considered but not given or refused? Why? @ -None Did you discuss the management of the patient with other professionals (professionals i.e. , PA, [employer], lab, RT, psych nurse, manager social work, aircraft general repair mechanic, teacher, systems support officer, counter caser)? Give summary @ -Case discussed with Analisa eid for [facility] Was smoking cessation discussed for >3mins.? @ -No Was critical care preformed (if so, how long)? @ -No Were there social determinants of health that impacted care today? How? (Homelessness, low income, unemployed, alcoholism, drug addiction, transportation, low edu. Level, literacy, decrease access to med. care, [facility], rehab)? @ -No Was there de-escalation of care discussed even if they declined (Discuss DNR or withdrawal of care, Hospice)? DNR status @ -No What co-morbidities impacted this encounter? (DM, HTN, Smoking, COPD, CAD, Cancer, CVA, ARF, Chemo, Hep., AIDS, mental health diagnosis, sleep apnea, morbid obesity)? @ -Chronic pain Was patient admitted / discharged? Hospital course, mention meds given and route, prescriptions, significant lab abnormalities, going to OR and other pertinent info. @ -[Patient admitted for hydration for acute kidney injury and hyperkalemia and for serial cardiac enzymes given the complaint of chest pain. Initial troponin negative. Stable anemia unchanged from baseline. Undiagnosed new problem with uncertain prognosis? @ -No Drug Therapy requiring intensive monitoring for toxicity (Heparin, Nitro, Insulin, Cardizem)? @ -No Were any procedures done? @ -No Diagnosis/symptom? @ -[Dehydration, LIAM, hyperkalemia Acute, or Chronic, or Acute on Chronic? @ -Acute Uncomplicated (without systemic symptoms) or Complicated (systemic symptoms)? @ -Default Side effects of treatment? @ -No Exacerbation, Progression, or Severe Exacerbation? @ -No Poses a threat to life or bodily function? How? (Chest pain, USA, CA, pneumonia, PE, COPD, DKA, ARF, appy, cholecystitis, CVA, Diverticulitis, Homicidal, Suicidal, threat to staff... and all critical care pts) @ -[Yes, arrhythmia, bradycardia, renal failure - Lab Data Result diagrams: 11/25/23 19:09 11/25/23 19:09 Lab Results 11/25/23 11/25/23 11/25/23 Range/Units 19:09 19:09 19:09 WBC 6.4 (3.8-10.6) k/uL RBC 3.29 L (3.80-5.40) m/uL Hgb 10.5 L (11.4-16.0) gm/dL Hct 33.8 L (34.0-46.0) % MCV 102.9 H (80.0-100.0) fL MCH 32.0 (25.0-35.0) pg MCHC 31.1 (31.0-37.0) g/dL RDW 17.5 H (11.5-15.5) % Plt Count 166 (150-450) k/uL MPV 9.2 Neutrophils % 70 % Lymphocytes % 21 % Monocytes % 4 % Eosinophils % 3 % Basophils % 1 % Neutrophils # 4.5 (1.3-7.7) k/uL Lymphocytes # 1.3 (1.0-4.8) k/uL Monocytes # 0.3 (0-1.0) k/uL Eosinophils # 0.2 (0-0.7) k/uL Basophils # 0.0 (0-0.2) k/uL Hypochromasia Marked Anisocytosis Slight Macrocytosis Moderate PT 10.2 (10.0-12.5) sec INR 0.9 (<1.2) APTT 23.0 (22.0-30.0) sec Sodium 134 L (137-145) mmol/L Potassium 5.9 H (3.5-5.1) mmol/L Chloride 106 (98-107) mmol/L Carbon Dioxide 25 (22-30) mmol/L Anion Gap 3 mmol/L BUN 18 H (7-17) mg/dL Creatinine 1.33 H (0.52-1.04) mg/dL Est GFR (CKD-EPI)AfAm 47 (>60 ml/min/1.73 sqM) Est GFR (CKD-EPI)NonAf 41 (>60 ml/min/1.73 sqM) Glucose 125 H (74-99) mg/dL Calcium 8.3 L (8.4-10.2) mg/dL Magnesium 2.0 (1.6-2.3) mg/dL Total Bilirubin 0.4 (0.2-1.3) mg/dL AST 29 (14-36) U/L ALT 15 (4-34) U/L Alkaline Phosphatase 392 H (38-126) U/L Troponin I (0.000-0.034) ng/mL Total Protein 7.2 (6.3-8.2) g/dL Albumin 3.5 (3.5-5.0) g/dL Influenza Type A (PCR) (Not Detectd) Influenza Type B (PCR) (Not Detectd) RSV (PCR) (Not Detectd) SARS-CoV-2 (PCR) (Not Detectd) 11/25/23 11/25/23 Range/Units 19:09 19:09 WBC (3.8-10.6) k/uL RBC (3.80-5.40) m/uL Hgb (11.4-16.0) gm/dL Hct (34.0-46.0) % MCV (80.0-100.0) fL MCH (25.0-35.0) pg MCHC (31.0-37.0) g/dL RDW (11.5-15.5) % Plt Count (150-450) k/uL MPV Neutrophils % % Lymphocytes % % Monocytes % % Eosinophils % % Basophils % % Neutrophils # (1.3-7.7) k/uL Lymphocytes # (1.0-4.8) k/uL Monocytes # (0-1.0) k/uL Eosinophils # (0-0.7) k/uL Basophils # (0-0.2) k/uL Hypochromasia Anisocytosis Macrocytosis PT (10.0-12.5) sec INR (<1.2) APTT (22.0-30.0) sec Sodium (137-145) mmol/L Potassium (3.5-5.1) mmol/L Chloride (98-107) mmol/L Carbon Dioxide (22-30) mmol/L Anion Gap mmol/L BUN (7-17) mg/dL Creatinine (0.52-1.04) mg/dL Est GFR (CKD-EPI)AfAm (>60 ml/min/1.73 sqM) Est GFR (CKD-EPI)NonAf (>60 ml/min/1.73 sqM) Glucose (74-99) mg/dL Calcium (8.4-10.2) mg/dL Magnesium (1.6-2.3) mg/dL Total Bilirubin (0.2-1.3) mg/dL AST (14-36) U/L ALT (4-34) U/L Alkaline Phosphatase (38-126) U/L Troponin I <0.012 (0.000-0.034) ng/mL Total Protein (6.3-8.2) g/dL Albumin (3.5-5.0) g/dL Influenza Type A (PCR) Not Detected (Not Detectd) Influenza Type B (PCR) Not Detected (Not Detectd) RSV (PCR) Not Detected (Not Detectd) SARS-CoV-2 (PCR) Not Detected (Not Detectd) Disposition Clinical Impression: LIAM (acute kidney injury), Weakness, Atypical chest pain Disposition: ADMITTED IP TO THIS HOSP Condition: Stable Is patient prescribed a controlled substance at d/c from ED?: No Time of Disposition: 21:04
[2023-11-25] MEDS: HYDROmorphone 0.5 MG/0.5 ML SYRINGE IVP STA (19:19)
[2023-11-25 19:26] LABS: Anisocytosis Slight; Basophils % (A) 1 %; Eosinophils # (A) 0.2 k/uL (0-0.7); Eosinophils % (A) 3 %; HCT 33.8 % (34.0-46.0); HGB 10.5 gm/dL (11.4-16.0); Hypochromasia Marked; Lymphocytes # (A) 1.3 k/uL (1.0-4.8); Lymphocytes % (A) 21 %; MCHC 31.1 g/dL (31.0-37.0); MCV 102.9 fL (80.0-100.0); Macrocytosis Moderate; Mean Platelet Volume 9.2; Monocytes # (A) 0.3 k/uL (0-1.0); Monocytes % (A) 4 %; Neutrophils # (A) 4.5 k/uL (1.3-7.7); Neutrophils % (A) 70 %; Platelet Count 166 k/uL (150-450); RBC 3.29 m/uL (3.80-5.40); RDW 17.5 % (11.5-15.5); WBC 6.4 k/uL (3.8-10.6)
[2023-11-25 19:37] LABS: ALT 15 U/L (4-34); AST 29 U/L (14-36); African American GFR (CKD) 47 (>60 ml/min/1.73 sqM); Albumin 3.5 g/dL (3.5-5.0); Alkaline Phosphatase 392 U/L (38-126); Anion Gap 3 mmol/L; Blood Urea Nitrogen 18 mg/dL (7-17); Calcium 8.3 mg/dL (8.4-10.2); Carbon Dioxide 25 mmol/L (22-30); Chloride 106 mmol/L (98-107); Glucose 125 mg/dL (74-99); Non-African American GFR(CKD) 41 (>60 ml/min/1.73 sqM); Potassium 5.9 mmol/L (3.5-5.1); Sodium 134 mmol/L (137-145); Total Bilirubin 0.4 mg/dL (0.2-1.3); Total Protein 7.2 g/dL (6.3-8.2)
[2023-11-25 19:43] LABS: INR 0.9 (<1.2); Prothrombin Time 10.2 sec (10.0-12.5)
[2023-11-25] MEDS ORDERED: ONDANSETRON 4 MG/2 ML VIAL IVP PRN (20:51)
[2023-11-25] MEDS ORDERED: NALOXONE 0.4 MG/ML 1 ML VIAL IV PRN (20:51)
[2023-11-25] MEDS: SODIUM CHLORIDE 0.9% 1,000 ML IV SCH (21:29)
[2023-11-25] MEDS: SODIUM CHLORIDE 0.9% 500 ML 500 ML IV ONE (21:29)
[2023-11-25] MEDS: ALPRAZolam 1 MG TAB PO SCH (21:57)
--- NOTE | 2023-11-26 00:53 | XR ---
EXAM: XR chest 1V portable CLINICAL INDICATION:Female, 68 years old with history of Pain; [facility] COMPARISON: 09/24/2023 TECHNIQUE: Chest single view. FINDINGS: Exam is limited by patient body habitus. Lines/tubes/devices: EKG leads overlie the chest. No indwelling lines are seen. Cardiomediastinum: Cardiac silhouette appears stable enlarged Unremarkable mediastinal silhouette. Vasculature: Mild pulmonary vascular congestion again suggested, similar to previous. Lungs/pleura: No consolidation, sizeable effusion, or visible pneumothorax. Bones/soft tissues: Bony thorax appears grossly intact as seen. Degenerative changes of the shoulders and spine. Regiona l soft tissues appear unremarkable. IMPRESSION: Cardiomegaly and mild pulmonary vascular congestion, correlate clinically for mild CHF. No significan t change from prior.
[2023-11-26] MEDS: MORPHINE SULFATE 4 MG/ML SYRINGE IVP STA (02:53)
[2023-11-26] MEDS: CLOPIDOGREL 75 MG TAB PO SCH (09:32)
[2023-11-26] MEDS: METOPROLOL SUCCINATE (ER) 25 MG TAB.ER.24H PO SCH (11:14)
[2023-11-26] MEDS ORDERED: METOCLOPRAMIDE 5 MG TAB PO PRN (13:52)
--- NOTE | 2023-11-26 14:05 | P.HPIM ---
History of Present Illness 68-year-old female came with complaints of unable to walk chronic low back pain increased with low back pain and bilateral leg pain predominantly in the left knee left ankle and her left leg is swollen with some venous stasis without any cellulitis. Patient is on pain medication for a long time and patient takes oxycodone for pain along with Xanax 2 mg twice a day cyclobenzaprine scheduled as an outpatient. Patient denies any fever chills patient left leg is more swollen than the right leg. Patient has elevated creatinine of 1.4 baseline is around 0.7 patient potassium is high as well. Patient has multiple other pain complaining including shoulder pain low back pain without any increased weakness in the legs. REVIEW OF SYSTEMS: CONSTITUTIONAL: No fever, no malaise, no fatigue. HEENT: No recent visual problems or hearing problems. Denied any sore throat. CARDIOVASCULAR: No chest pain, orthopnea, PND, no palpitations, no syncope. PULMONARY: No shortness of breath, no cough, no hemoptysis. GASTROINTESTINAL: No diarrhea, no nausea, no vomiting, no abdominal pain. NEUROLOGICAL: No headaches, no weakness, no numbness. HEMATOLOGICAL: Denies any bleeding or petechiae. GENITOURINARY: Denies any burning micturition, frequency, or urgency. MUSCULOSKELETAL/RHEUMATOLOGICAL: As mentioned in HPI ENDOCRINE: Denies any polyuria or polydipsia. The rest of the 14-point review of systems is negative. PHYSICAL EXAMINATION: GENERAL: The patient is alert and oriented x3, not in any acute distress. Well developed, well nourished. HEENT: Pupils are round and equally reacting to light. EOMI. No scleral icterus. No conjunctival pallor. Normocephalic, atraumatic. No pharyngeal erythema. No thyromegaly. CARDIOVASCULAR: S1 and S2 present. No murmurs, rubs, or gallops. PULMONARY: Chest is clear to auscultation, no wheezing or crackles. ABDOMEN: Soft, nontender, nondistended, normoactive bowel sounds. No palpable organomegaly. MUSCULOSKELETAL: No joint swelling or deformity. EXTREMITIES: No cyanosis, clubbing, bilateral lower extremity pedal edema significant on the left leg NEUROLOGICAL: Gross neurological examination did not reveal any focal deficits. SKIN: Left leg is more swollen with venous stasis dermatosis without any significant cellulitis Assessment and plan -Pain in the left knee and left leg will rule out lower extremity DVT any knee or ankle pathology, orthopedic surgery will be consulted cannot use oxycodone because of her acute renal failure patient will be started on Dilaudid, Tylenol for pain. -Chronic low back pain -Hyponatremia secondary to probably hypovolemia patient was started on IV fluids -Hyperkalemia secondary to acute renal failure, will order Lokelma and IV fluids -Acute renal failure: Etiology is not clear probably acute tubular necrosis, hyperkalemia azotemia IV fluids-type 2 diabetes mellitus -Gastroesophageal reflux disease -Hypertension -Coronary artery disease -History of PE in the past and DVT in the past -Hypothyroidism Problem mentioned chronic medical problems patient will be resumed on appropriate home medications DVT prophylaxis: Subcutaneous heparin Past Medical History Past Medical History: Blood Disorder, Cancer, Diabetes Mellitus, Deep Vein Thrombosis (DVT), GERD/Reflux, Hyperlipidemia, Hypertension, Myocardial Infarction ([place]), Neurologic Disorder, Osteoarthritis (OA), Pulmonary Embolus (PE), Thyroid Disorder Additional Past Medical History / Comment(s): Factor 5 leiden, DVT L leg, PE L lung, MIs x 5, palpitations, IDDM type II, neuropathy bilateral legs/feet, lymphedema L leg, charcot syndrome L foot, chronic low back pain, bilateral sciatica,hx bronchitis, anemia, hypothyroid, hx UTI, IBS, sinus problems, worsening tremors, "stomach shivering inside" plans to f/u with pcp. skin cancer removal. hx of pneumonia long ago, pelvic fx Last Myocardial Infarction Date:: January 2020 History of Any Multi-Drug Resistant Organisms: VRE Date of last positivie culture/infection: 08/24/23 MDRO Source:: Urine Past Surgical History: Appendectomy, Cholecystectomy, Heart Catheterization With Stent, Hernia Repair, Hysterectomy, Tonsillectomy Additional Past Surgical History / Comment(s): Bilateral salpingectomy, bilateral oophorectomy, abdominal hernia surgeries, L foot fracture, bilateral cataract removals, epidural injections with last on 01/20/20 lumbar, LAST PROCEDURE 04/19/21 Past Anesthesia/Blood Transfusion Reactions: No Reported Reaction Additional Past Anesthesia/Blood Transfusion Reaction / Comment(s): Pt has received blood in past without reaction. Date of Last Stent Placement:: January 2020 Past Psychological History: Anxiety, Depression, Panic Disorder Additional Psychological History / Comment(s): Pt resides with her spouse. severe panic attacks Smoking Status: Former smoker Past Alcohol Use History: None Reported Additional Past Alcohol Use History / Comment(s): STARTED SMOKING AT AGE 20quit smoking 2012, smoked 1ppd Past Drug Use History: None Reported - Past Family History Mother Family Medical History: COPD Additional Family Medical History / Comment(s): Mother was a smoker. Father Family Medical History: Cancer Additional Family Medical History / Comment(s): Lung cancer. Father was a smoker. Son(s) Family Medical History: Deep Vein Thrombosis (DVT) Medications and Allergies Home Medications Medication Instructions Recorded Confirmed Type Clopidogrel [Plavix] 75 mg PO DAILY 07/07/19 11/26/23 History traZODone HCL [Desyrel] 200 mg PO HS 07/07/19 11/26/23 History Ezetimibe [Zetia] 10 mg PO DAILY 30 Days #30 tab 01/30/20 11/26/23 Rx Insulin Glargine,Hum.rec.anlog 50 - 60 units SQ BID 06/09/21 11/26/23 History [Lantus Solostar Pen] Levothyroxine Sodium [Synthroid] 300 mcg PO DAILY 08/30/21 11/26/23 History Metoclopramide [Reglan] 5 mg PO QID PRN 09/10/21 11/26/23 History diphenhydrAMINE HCL [Benadryl] 25 mg PO DAILY PRN 06/21/23 11/26/23 History Primidone [Mysoline] 125 mg PO BID #60 tab 06/22/23 11/26/23 Rx ALPRAZolam [Xanax] 2 mg PO TID 09/21/23 11/26/23 History Aspirin EC [Ecotrin Low Dose] 81 mg PO DAILY 09/21/23 11/26/23 History Insulin Lispro [humaLOG Kwikpen] See Protocol SQ AC-TID 09/21/23 11/26/23 History Metoprolol Succinate (ER) [Toprol 25 mg PO DAILY 09/21/23 11/26/23 History XL] oxyCODONE HCL [oxyCODONE HCL (IR)] 10 mg PO TID 09/21/23 11/26/23 History Hydrocortisone Suppository 25 mg RECTAL DAILY 5 Days #5 09/26/23 11/26/23 Rx [Anusol-Hc] suppositor Sennosides [Senokot] 8.6 mg PO BID #30 tab 09/26/23 11/26/23 Rx Cyclobenzaprine [Flexeril] 5 mg PO TID 11/26/23 11/26/23 History Furosemide [Lasix] 20 mg PO DAILY 11/26/23 11/26/23 History Nystatin [Nystop] 1 applic TOPICAL BID 11/26/23 11/26/23 History Sulfamethoxazole/Trimethoprim 1 tab PO BID 11/26/23 11/26/23 History [Bactrim DS 800-160 mg] Allergies Allergy/AdvReac Type Severity Reaction Status Date / Time Iodinated Contrast Media Allergy Rash/Hives Verified 11/26/23 09:36 Iodine and Iodide Containing Allergy Rash/Hives Verified 11/26/23 09:36 Produc liraglutide [From Saxenda] AdvReac Unknown Nausea & Verified 11/26/23 09:36 Vomiting NSAIDS (Non-Steroidal AdvReac Unknown Nausea & Verified 11/26/23 09:36 Anti-Inflamma Vomiting aspirin AdvReac Nausea & Verified 11/26/23 09:36 Vomiting with high doses azithromycin AdvReac Vomiting Verified 11/26/23 09:36 naproxen [From Naprosyn] AdvReac Nausea & Verified 11/26/23 09:36 Vomiting Physical Exam Vitals: Vital Signs Temp Pulse Pulse Pulse Resp BP BP 11/26/23 07:45 97.7 F 74 17 147/72 11/26/23 06:07 74 18 149/75 11/26/23 04:00 75 18 149/67 11/26/23 03:00 97.5 F L 73 18 142/63 11/26/23 00:00 75 18 148/75 11/25/23 23:00 74 19 101/60 11/25/23 22:00 75 18 142/64 11/25/23 21:00 73 18 124/58 11/25/23 20:00 71 18 144/67 11/25/23 19:02 75 11/25/23 18:56 97.4 F L 73 18 144/71 Pulse Ox 11/26/23 07:45 94 L 11/26/23 06:07 94 L 11/26/23 04:00 95 11/26/23 03:00 11/26/23 00:00 11/25/23 23:00 11/25/23 22:00 11/25/23 21:00 11/25/23 20:00 11/25/23 19:02 11/25/23 18:56 94 L Intake and Output 11/25/23 11/26/23 11/26/23 22:59 06:59 14:59 Intake Total 200 Output Total 950 Balance -950 200 Intake: Oral 200 Output: Urine 950 Other: Voiding Method External Catheter # Bowel Movements 0 Weight 113.398 kg 113.398 kg Results CBC & Chem 7: 11/25/23 19:09 11/25/23 19:09 Labs: Abnormal Lab Results - Last 24 Hours (Table) 11/25/23 11/25/23 Range/Units 19:09 19:09 RBC 3.29 L (3.80-5.40) m/uL Hgb 10.5 L (11.4-16.0) gm/dL Hct 33.8 L (34.0-46.0) % MCV 102.9 H (80.0-100.0) fL RDW 17.5 H (11.5-15.5) % Sodium 134 L (137-145) mmol/L Potassium 5.9 H (3.5-5.1) mmol/L BUN 18 H (7-17) mg/dL Creatinine 1.33 H (0.52-1.04) mg/dL Glucose 125 H (74-99) mg/dL Calcium 8.3 L (8.4-10.2) mg/dL Alkaline Phosphatase 392 H (38-126) U/L Thrombosis Risk Factor Assmnt - Choose All That Apply Any of the Below Risk Factors Present?: Yes Each Factor Represents 1 point: Obesity (BMI >25), Swollen legs (current) Each Risk Factor Represents 2 Points: Age 61-74 years Other congenital or acquired thrombophilia - If yes, enter type in comment: No Thrombosis Risk Factor Assessment Total Risk Factor Score: 4 Thrombosis Risk Factor Assessment Level: Moderate Risk
[2023-11-26] MEDS: HYDROmorphone 0.5 MG/0.5 ML SYRINGE IVP PRN (15:17)
[2023-11-26] MEDS: LIDOCAINE 4% PATCH TOPICAL SCH (15:20)
[2023-11-26] MEDS: SODIUM ZIRCONIUM CYCLOSILICATE 10 GM PACKET PO ONE (15:30)
--- NOTE | 2023-11-26 15:41 | US ---
EXAMINATION TYPE: US venous doppler duplex LE BI DATE OF EXAM: 11/26/2023 3:14 PM COMPARISON: NONE CLINICAL INDICATION: Female, 68 years old with history of Rule out DVT in the left leg; edema pain SIDE PERFORMED: Bilateral TECHNIQUE: The lower extremity deep venous system is examined utilizing real time linear array sonog macie with graded compression, doppler sonography and color-flow sonography. VESSELS IMAGED: Common Femoral Vein Deep Femoral Vein Greater Saphenous Vein * Femoral Vein Popliteal Vein Small Saphenous Vein * (* superficial vessels) Foundation Drill Operator Helper notes: limited due to body habitus and lymphedema. Right Leg: Negative for DVT Left Leg: Negative for DVT IMPRESSION: Some exam limitations as above. No evidence for DVT within the bilateral lower extremitie s imaged from the groin to the knees.
--- NOTE | 2023-11-26 17:56 | XR ---
Left knee. HISTORY: Knee pain. COMPARISON: 11/14/2023. Graft technique: PA and lateral views of the knee were obtained. FINDINGS: There is mild osteopenia. There is no fracture, dislocation or focal intraosseous abnormality. There is mild to moderate narrowing of the medial compartment the knee consistent with [id number] te osteoarthritis. There is a probable small joint effusion. IMPRESSION: 1. Mild to moderate osteoarthritis of the medial compartment the knee. 2. No acute fracture dislocations. 3. possible small joint effusion
--- NOTE | 2023-11-26 17:58 | XR ---
Left ankle. HISTORY: Pain COMPARISON: None TECHNIQUE: 2 views of the left ankle were obtained. FINDINGS: There is mild osteopenia. There is no fracture or focal intraosseous abnormality. There is mild osteophytic change of the midfo ot where mild hypertrophic spurring is identified. There is a [id number] plantar calcaneal spur . The ankle mortise is intact. IMPRESSION: Degenerative changes as described above. There is no acute fracture or dislocation.
--- NOTE | 2023-11-26 18:10 | XR ---
Lumbar spine HISTORY: Back pain COMPARISON: None TECHNIQUE: 3 views lumbar spine were obtained Exam is markedly limited secondary to patient body habitus. FINDINGS: No significant abnormality based on the AP view. Visualized sacrum and SI joints normal. On the later al view, the lumbar vertebral segments are normal in height and alignment. No fracture or subluxation . There is mild degenerative disc disease with mild disc space narrowing from L1 to L4 and moderate d egenerative disease with moderate disc space narrowing at the L4-5 level. IMPRESSION: 1. Limited exam secondary to patient's body habitus. 2. No lumbar spine fracture or malalignment. 3. Multilevel degenerative disc disease, greatest and moderate at the L4-5 level.
[2023-11-26 18:16] LABS: Glucose,Whole Blood 293 mg/dL (70-110)
[2023-11-26] MEDS: ALPRAZolam 1 MG TAB PO PRN (18:17)
[2023-11-26] MEDS: HEPARIN SODIUM,PORCINE 5,000 UNIT/ML 1 ML VIAL SQ SCH (18:17)
[2023-11-26] MEDS: INSULIN ASPART (NovoLOG) 100 UNIT/ML VIAL SQ SCH (18:34)
[2023-11-26 20:19] LABS: Glucose,Whole Blood 259 mg/dL (70-110)
[2023-11-26] MEDS: NYSTATIN 100,000 UNIT/GM POWD 15 GM TOPICAL SCH (20:31)
[2023-11-26] MEDS: SENNOSIDES 8.6 MG TAB PO SCH (20:32)
[2023-11-26] MEDS: INSULIN DETEMIR (LEVEMIR) 100 UNIT/ML SYR SQ SCH (20:32)
[2023-11-26] MEDS: traZODone HCL 100 MG TAB PO SCH (20:32)
[2023-11-26] MEDS: PRIMIDONE 250 MG TAB PO SCH (20:32)
[2023-11-27 06:06] LABS: Glucose,Whole Blood 163 mg/dL (70-110)
[2023-11-27] MEDS: LEVOTHYROXINE 100 MCG TAB PO SCH (06:08)
[2023-11-27] MEDS: ASPIRIN 81 MG PO SCH (08:48)
[2023-11-27] MEDS: EZETIMIBE 10 MG TAB PO SCH (08:48)
[2023-11-27] MEDS: HYDROCORTISONE SUPPOSITORY 25 MG SUPP RECTAL SCH (08:50)
[2023-11-27 11:45] LABS: HCT 35.6 % (39.6-50.0); HGB 10.6 g/dL (13.0-17.0); MCH 31.2 pg (27.0-32.0); MCHC 29.8 g/dL (32.0-37.0); MCV 104.7 FL (80.0-97.0); Mean Platelet Volume 11.9 FL (9.5-12.2); NRBC Per 100 WBC 0 X 10*3/uL (0.00-0.01); Platelet Count 176 X 10*3/uL (140-440); RDW 17.9 % (11.5-14.5); WBC 5.11 X 10*3/uL (4.50-10.00)
[2023-11-27 11:57] LABS: BUN/Creat Ratio 16.78 Ratio (12.00-20.00); Blood Urea Nitrogen 15.1 mg/dL (9.0-27.0); Calcium 8.5 mg/dL (8.7-10.3); Chloride 107 mmol/L (96-109); Glucose 142 mg/dL (70-110); Potassium 5.5 mmol/L (3.5-5.5); Sodium 138 mmol/L (135-145)
[2023-11-27 12:49] LABS: Glucose,Whole Blood 126 mg/dL (70-110)
--- NOTE | 2023-11-27 13:31 | P.CNOR ---
History of Present Illness - HPI Consult date: 11/27/23 History of present illness: This is a 68-year-old female who is admitted for inability to ambulate and chronic pain. Orthopedics is consulted for evaluation of left leg swelling. Patient is seen and evaluated at bedside today. Patient states that she has been unable to walk secondary to pain in both legs for the last week. Patient denies any known injury and states that she takes oxycodone daily for known chronic back pain. Patient states that she did work with physical therapy yesterday, but needed 2 people to sit on the edge of the bed and use the commode. Patient's past medical history significant for factor V Leiden, histor y of DVT and PE, diabetes mellitus with neuropathy, lymphedema of the left leg, Charcot foot on the left, chronic low back pain, history of sciatica, hypothyroidism, IBS, hyperlipidemia, hypertension and GERD. Patient denies any fever/chills, chest pain, shortness breath, abdominal pain, numbness, weakness or tingling. Review of Systems See HPI. Past Medical History Past Medical History: Blood Disorder, Cancer, Diabetes Mellitus, Deep Vein Thrombosis (DVT), GERD/Reflux, Hyperlipidemia, Hypertension, Myocardial In farction ([place]), Neurologic Disorder, Osteoarthritis (OA), Pulmonary Embolus (PE), Thyroid Disorder Additional Past Medical History / Comment(s): Factor 5 leiden, DVT L leg, PE L lung, MIs x 5, palpitations, IDDM type II, neuropathy bilateral legs/feet, lymphedema L leg, charcot syndrome L foot, chronic low back pain, bilateral sciatica,hx bronchitis, anemia, hypothyroid, hx UTI, IBS, sinus problems, worsening tremors, "stomach shivering inside" plans to f/u with pcp. skin cancer removal. hx of pneumonia long ago, pelvic fx Last Myocardial Infarction Date:: January 2020 History of Any Multi-Drug Resistant Organisms: VRE Year Discovered:: 08/24/23 MDRO Source:: Urine Past Surgical History: Appendectomy, Cholecystectomy, Heart Catheterization With Stent, Hernia Repair, Hysterectomy, Tonsillectomy Additional Past Surgical History / Comment(s): Bilateral salpingectomy, bilateral oophorectomy, abdominal hernia surgeries, L foot fracture, bilateral cataract removals, epidural injections with last on 01/20/20 lumbar, LAST PROCEDURE 04/19/21 Past Anesthesia/Blood Transfusion Reactions: No Reported Reaction Additional Past Anesthesia/Blood Transfusion Reaction / Comm: Pt has received blood in past without reaction. Date of Last Stent Placement:: January 2020 Past Psychological History: Anxiety, Depression, Panic Disorder Additional Psychological History / Comment(s): Pt resides with her spouse. severe panic attacks Smoking Status: Former smoker Past Alcohol Use History: None Reported Additional Past Alcohol Use History / Comment(s): STARTED SMOKING AT AGE 20quit smoking 2012, smoked 1ppd Past Drug Use History: None Reported - Past Family History Mother Family Medical History: COPD Additional Family Medical History / Comment(s): Mother was a smoker. Father Family Medical History: Cancer Additional Family Medical History / Comment(s): Lung cancer. Father was a smoker. Son(s) Family Medical History: Deep Vein Thrombosis (DVT) Medications and Allergies Home Medications Medication Instructions Recorded Confirmed Type Clopidogrel [Plavix] 75 mg PO DAILY 07/07/19 11/26/23 History traZODone HCL [Desyrel] 200 mg PO HS 07/07/19 11/26/23 History Ezetimibe [Zetia] 10 mg PO DAILY 30 Days #30 tab 01/30/20 11/26/23 Rx Insulin Glargine,Hum.rec.anlog 50 - 60 units SQ BID 06/09/21 11/26/23 History [Lantus Solostar Pen] Levothyroxine Sodium [Synthroid] 300 mcg PO DAILY 08/30/21 11/26/23 History Metoclopramide [Reglan] 5 mg PO QID PRN 09/10/21 11/26/23 History diphenhydrAMINE HCL [Benadryl] 25 mg PO DAILY PRN 06/21/23 11/26/23 History Primidone [Mysoline] 125 mg PO BID #60 tab 06/22/23 11/26/23 Rx ALPRAZolam [Xanax] 2 mg PO TID 09/21/23 11/26/23 History Aspirin EC [Ecotrin Low Dose] 81 mg PO DAILY 09/21/23 11/26/23 History Insulin Lispro [humaLOG Kwikpen] See Protocol SQ AC-TID 09/21/23 11/26/23 History Metoprolol Succinate (ER) [Toprol 25 mg PO DAILY 09/21/23 11/26/23 History XL] oxyCODONE HCL [oxyCODONE HCL (IR)] 10 mg PO TID 09/21/23 11/26/23 History Hydrocortisone Suppository 25 mg RECTAL DAILY 5 Days #5 09/26/23 11/26/23 Rx [Anusol-Hc] suppositor Sennosides [Senokot] 8.6 mg PO BID #30 tab 09/26/23 11/26/23 Rx Cyclobenzaprine [Flexeril] 5 mg PO TID 11/26/23 11/26/23 History Furosemide [Lasix] 20 mg PO DAILY 11/26/23 11/26/23 History Nystatin [Nystop] 1 applic TOPICAL BID 11/26/23 11/26/23 History Sulfamethoxazole/Trimethoprim 1 tab PO BID 11/26/23 11/26/23 History [Bactrim DS 800-160 mg] Allergies Allergy/AdvReac Type Severity Reaction Status Date / Time Iodinated Contrast Media Allergy Rash/Hives Verified 11/26/23 09:36 Iodine and Iodide Containing Allergy Rash/Hives Verified 11/26/23 09:36 Produc liraglutide [From Saxenda] AdvReac Unknown Nausea & Verified 11/26/23 09:36 Vomiting NSAIDS (Non-Steroidal AdvReac Unknown Nausea & Verified 11/26/23 09:36 Anti-Inflamma Vomiting aspirin AdvReac Nausea & Verified 11/26/23 09:36 Vomiting with high doses azithromycin AdvReac Vomiting Verified 11/26/23 09:36 naproxen [From Naprosyn] AdvReac Nausea & Verified 11/26/23 09:36 Vomiting Physical Examination On exam patient is resting comfortably in bed in no acute distress. Patient is alert and oriented 3. Patient is able to actively flex and extend the left knee without significant pain. There is no pain with logroll of the left lower extremity. There is mild to moderate swelling of the left lower extremity. Calf is soft and nontender to palpation. Patient good range of motion of the left foot and ankle. The left lower extremity is warm and well-perfused. Sensation intact. Neurovascular status and circulatory status are intact. Results X-rays of the left knee are reviewed revealing mild to moderate thinning of the medial joint space. X-rays of the left ankle are reviewed and are negative. An x-ray report of the lumbar spine reveals: 1. Limited exam secondary to patient's body habitus. 2. No lumbar spine fracture or malalignment. 3. Multilevel degenerative disc disease, greatest and moderate at the L4-5 level. A Venous Doppler ultrasound of the left lower extremity is negative for DVT. - Labs Labs: Abnormal Lab Results - Last 24 Hours (Table) 11/26/23 11/26/23 11/27/23 Range/Units 18:15 20:17 06:04 RBC (4.40-5.60) X 10*6/uL Hgb (13.0-17.0) g/dL Hct (39.6-50.0) % MCV (80.0-97.0) FL MCHC (32.0-37.0) g/dL RDW (11.5-14.5) % Glucose (70-110) mg/dL POC Glucose (mg/dL) 293 H 259 H 163 H (70-110) mg/dL Calcium (8.7-10.3) mg/dL 11/27/23 11/27/23 11/27/23 Range/Units 06:07 06:07 12:47 RBC 3.40 L (4.40-5.60) X 10*6/uL Hgb 10.6 L (13.0-17.0) g/dL Hct 35.6 L (39.6-50.0) % MCV 104.7 H (80.0-97.0) FL MCHC 29.8 L (32.0-37.0) g/dL RDW 17.9 H (11.5-14.5) % Glucose 142 H (70-110) mg/dL POC Glucose (mg/dL) 126 H (70-110) mg/dL Calcium 8.5 L (8.7-10.3) mg/dL H & H 11/25/23 11/27/23 Range/Units 19:09 06:07 Hgb 10.5 L 10.6 L (11.4-16.0) gm/dL Hct 33.8 L 35.6 L (34.0-46.0) % Coagulation 11/25/23 Range/Units 19:09 INR 0.9 (<1.2) Result Diagrams: 11/27/23 06:07 11/27/23 06:07 Assessment and Plan (1) Left knee pain Current Visit: Yes Status: Acute Code(s): M25.562 - PAIN IN LEFT KNEE SNOMED Code(s): 4931363473 (2) Osteoarthritis of left knee Current Visit: Yes Status: Acute Code(s): M17.12 - UNILATERAL PRIMARY OSTEOARTHRITIS, LEFT KNEE SNOMED Code(s): 160227808441387 (3) Weakness Current Visit: Yes Status: Acute Code(s): R53.1 - WEAKNESS SNOMED Code(s): 73748867 Plan: 1. X-rays are reviewed. There is no surgical intervention planned. Recommend continuation of conservative treatment at this time. Recommend continuation of physical therapy for mobilization. Patient may follow up as an outpatient on an as needed basis.
[2023-11-27] MEDS: ALPRAZolam 1 MG TAB PO SCH (14:12)
[2023-11-27] MEDS: ACETAMINOPHEN TAB 325 MG TAB PO PRN (16:28)
[2023-11-27 17:18] LABS: Glucose,Whole Blood 238 mg/dL (70-110)
--- NOTE | 2023-11-27 19:38 | P.PAINCN ---
History of Present Illness - Reason for Consult Consult date: 11/27/23 - History of Present Illness This is 68 years old female, with a history of chronic low back pain, patient was admitted to [facility] after multiple falls at home, patient was on oxycodone milligram every 6 hours at home, and she is currently not able to ambulate secondary to intensity of the pain, currently complaining of severe low back pain and lower extremity pain mainly on the left side, knee pain and left shoulder.,, Patient currently unable to ambulate, patient had a history of lymphedema in the left lower extremity. Past Medical History Past Medical History: Blood Disorder, Cancer, Diabetes Mellitus, Deep Vein Thrombosis (DVT), GERD/Reflux, Hyperlipidemia, Hypertension, Myocardial Infarction (MD), Neurologic Disorder, Osteoarthritis (OA), Pulmonary Embolus (PE), Thyroid Disorder Additional Past Medical History / Comment(s): Factor 5 leiden, DVT L leg, PE L lung, MIs x 5, palpitations, IDDM type II, neuropathy bilateral legs/feet, lymphedema L leg, charcot syndrome L foot, chronic low back pain, bilateral sciatica,hx bronchitis, anemia, hypothyroid, hx UTI, IBS, sinus problems, worsening tremors, "stomach shivering inside" plans to f/u with pcp. skin cancer removal. hx of pneumonia long ago, pelvic fx Last Myocardial Infarction Date:: January 2020 History of Any Multi-Drug Resistant Organisms: VRE Year Discovered:: 08/24/23 MDRO Source:: Urine Past Surgical History: Appendectomy, Cholecystectomy, Heart Catheterization With Stent, Hernia Repair, Hysterectomy, Tonsillectomy Additional Past Surgical History / Comment(s): Bilateral salpingectomy, bilateral oophorectomy, abdominal hernia surgeries, L foot fracture, bilateral cataract removals, epidural injections with last on 01/20/20 lumbar, LAST PROCEDURE 04/19/21 Past Anesthesia/Blood Transfusion Reactions: No Reported Reaction Additional Past Anesthesia/Blood Transfusion Reaction / Comm: Pt has received blood in past without reaction. Date of Last Stent Placement:: January 2020 Past Psychological History: Anxiety, Depression, Panic Disorder Additional Psychological History / Comment(s): Pt resides with her spouse. severe panic attacks Smoking Status: Former smoker Past Alcohol Use History: None Reported Additional Past Alcohol Use History / Comment(s): STARTED SMOKING AT AGE 20quit smoking 2012, smoked 1ppd Past Drug Use History: None Reported - Past Family History Mother Family Medical History: COPD Additional Family Medical History / Comment(s): Mother was a smoker. Father Family Medical History: Cancer Additional Family Medical History / Comment(s): Lung cancer. Father was a smoker. Son(s) Family Medical History: Deep Vein Thrombosis (DVT) Medications and Allergies Home Medications Medication Instructions Recorded Confirmed Type Clopidogrel [Plavix] 75 mg PO DAILY 07/07/19 11/26/23 History traZODone HCL [Desyrel] 200 mg PO HS 07/07/19 11/26/23 History Ezetimibe [Zetia] 10 mg PO DAILY 30 Days #30 tab 01/30/20 11/26/23 Rx Insulin Glargine,Hum.rec.anlog 50 - 60 units SQ BID 06/09/21 11/26/23 History [Lantus Solostar Pen] Levothyroxine Sodium [Synthroid] 300 mcg PO DAILY 08/30/21 11/26/23 History Metoclopramide [Reglan] 5 mg PO QID PRN 09/10/21 11/26/23 History diphenhydrAMINE HCL [Benadryl] 25 mg PO DAILY PRN 06/21/23 11/26/23 History Primidone [Mysoline] 125 mg PO BID #60 tab 06/22/23 11/26/23 Rx ALPRAZolam [Xanax] 2 mg PO TID 09/21/23 11/26/23 History Aspirin EC [Ecotrin Low Dose] 81 mg PO DAILY 09/21/23 11/26/23 History Insulin Lispro [humaLOG Kwikpen] See Protocol SQ AC-TID 09/21/23 11/26/23 History Metoprolol Succinate (ER) [Toprol 25 mg PO DAILY 09/21/23 11/26/23 History XL] oxyCODONE HCL [oxyCODONE HCL (IR)] 10 mg PO TID 09/21/23 11/26/23 History Hydrocortisone Suppository 25 mg RECTAL DAILY 5 Days #5 09/26/23 11/26/23 Rx [Anusol-Hc] suppositor Sennosides [Senokot] 8.6 mg PO BID #30 tab 09/26/23 11/26/23 Rx Cyclobenzaprine [Flexeril] 5 mg PO TID 11/26/23 11/26/23 History Furosemide [Lasix] 20 mg PO DAILY 11/26/23 11/26/23 History Nystatin [Nystop] 1 applic TOPICAL BID 11/26/23 11/26/23 History Sulfamethoxazole/Trimethoprim 1 tab PO BID 11/26/23 11/26/23 History [Bactrim DS 800-160 mg] Allergies Allergy/AdvReac Type Severity Reaction Status Date / Time Iodinated Contrast Media Allergy Rash/Hives Verified 11/26/23 09:36 Iodine and Iodide Containing Allergy Rash/Hives Verified 11/26/23 09:36 Produc liraglutide [From Saxenda] AdvReac Unknown Nausea & Verified 11/26/23 09:36 Vomiting NSAIDS (Non-Steroidal AdvReac Unknown Nausea & Verified 11/26/23 09:36 Anti-Inflamma Vomiting aspirin AdvReac Nausea & Verified 11/26/23 09:36 Vomiting with high doses azithromycin AdvReac Vomiting Verified 11/26/23 09:36 naproxen [From Naprosyn] AdvReac Nausea & Verified 11/26/23 09:36 Vomiting Physical Exam Vitals: Vital Signs Temp Pulse Resp BP Pulse Ox 11/27/23 15:00 97.9 F 75 16 163/77 98 11/27/23 07:00 97.8 F 84 16 150/71 93 L 11/27/23 00:50 98.2 F 78 18 117/57 95 Intake and Output 11/27/23 11/27/23 11/27/23 06:59 14:59 22:59 Intake Total 240 118 Output Total 1200 550 300 Balance -1200 -310 -182 Intake: Oral 240 118 Output: Urine 1200 550 300 Other: # Voids 1 # Bowel Movements 1 1 Physical Examinations : -Constitutiona : Cooperative , not in acute distress . -HEENT : nech : supplle : eyes : no ptosis , no icterus, no photophobia . - neurologic : Cranial nerve II to XII intact , no focal neurological deffecit . -psychatric : alert , oriented X 3 , appropriate affect , intact judgment and insight . -Lymphatic : - musculoskeltal : Cervical Spine motor stregnth in the deltoid and biceps, normal right side , normal Left side motor stregnth biceps and the wrist extensors normal right side ,normal left side . motor stregnth in the triceps muscle . normal Right side , normal Left side deep tendon reflexes normal at the biceps , normal at Brachioradialis , normal at triceps. Abduction and rotation of the left shoulder associated with pain Lumber spine moter stegnth lower extremities ,thigh and legs 3/5 Right side , 3/5 Left side deep tendon reflexes : normal Knee Jerk , normal ankle Jerk lumber facet Loading Test =positive Ri ght , positive Left Range of motion of the lumbar spine F lexion 30 degrees, extension 10 degrees strait leg raising test = positive at degree Fabere test= positive Right , and positive LT . Sever tenderness over the Sacroiliac joint on the Right , and Left sides Generalized Tenderness over the lumbar paraspinal muscles bilaterally Results CBC & Chem 7: 11/27/23 06:07 11/27/23 06:07 Labs: Abnormal Lab Results - Last 24 Hours (Table) 11/26/23 11/27/23 11/27/23 Range/Units 20:17 06:04 06:07 RBC 3.40 L (4.40-5.60) X 10*6/uL Hgb 10.6 L (13.0-17.0) g/dL Hct 35.6 L (39.6-50.0) % MCV 104.7 H (80.0-97.0) FL MCHC 29.8 L (32.0-37.0) g/dL RDW 17.9 H (11.5-14.5) % Glucose (70-110) mg/dL POC Glucose (mg/dL) 259 H 163 H (70-110) mg/dL Calcium (8.7-10.3) mg/dL 11/27/23 11/27/23 11/27/23 Range/Units 06:07 12:47 17:16 RBC (4.40-5.60) X 10*6/uL Hgb (13.0-17.0) g/dL Hct (39.6-50.0) % MCV (80.0-97.0) FL MCHC (32.0-37.0) g/dL RDW (11.5-14.5) % Glucose 142 H (70-110) mg/dL POC Glucose (mg/dL) 126 H 238 H (70-110) mg/dL Calcium 8.5 L (8.7-10.3) mg/dL Comments: X-rays of the left knee are reviewed revealing mild to moderate thinning of the medial joint space. X-rays of the left ankle are reviewed and are negative. An x-ray report of the lumbar spine reveals: 1. Limited exam secondary to patient's body habitus. 2. No lumbar spine fracture or malalignment. 3. Multilevel degenerative disc disease, greatest and moderate at the L4-5 level. Assessment and Plan Plan: Assessment and plan=1-chronic pain syndrome. 2-myofascial pain syndrome lumbar paraspinal muscles. 3 left knee pain. 4-left shoulder pain 5-weakness Patient currently on oxycodone 10 mg Q hours as needed, I recommend to continue the current medication, patient could benefit from muscle relaxant to help her myofascial pain component, currently on Plavix, and because of the nature of her generalized pain she is not a candidate for any interventional pain management, recommend to start patient on Zanaflex 4 mg every 8 hours, could benefit from physical therapy and rehab Time with Patient: Less than 30 PQRS Measure Charge Sheet Pain Comment: see MAR PQRS Narrative: Smoking Status Former smoker Blood Pressure [Left Arm] 163/77 Blood Pressure [Right Arm] 147/72 Blood Pressure 149/75 Pain Intensity 9 Pain Scale Used Numeric (1 - 10) Scale Used Numeric (1 - 10) Hx Alcohol Use (MH) No Home Medications: Ambulatory Orders Clopidogrel [Plavix] 75 mg PO DAILY 07/07/19 traZODone HCL [Desyrel] 200 mg PO HS 07/07/19 Ezetimibe [Zetia] 10 mg PO DAILY 30 Days #30 tab 01/30/20 Insulin Glargine,Hum.rec.anlog [Lantus Solostar Pen] 50 - 60 units SQ BID 06/09/21 Levothyroxine Sodium [Synthroid] 300 mcg PO DAILY 08/30/21 Metoclopramide [Reglan] 5 mg PO QID PRN 09/10/21 diphenhydrAMINE HCL [Benadryl] 25 mg PO DAILY PRN 06/21/23 Primidone [Mysoline] 125 mg PO BID #60 tab 06/22/23 ALPRAZolam [Xanax] 2 mg PO TID 09/21/23 Aspirin EC [Ecotrin Low Dose] 81 mg PO DAILY 09/21/23 Insulin Lispro [humaLOG Kwikpen] See Protocol SQ AC-TID 09/21/23 Metoprolol Succinate (ER) [Toprol XL] 25 mg PO DAILY 09/21/23 oxyCODONE HCL [oxyCODONE HCL (IR)] 10 mg PO TID 09/21/23 Hydrocortisone Suppository [Anusol-Hc] 25 mg RECTAL DAILY 5 Days #5 suppositor 09/26/23 Sennosides [Senokot] 8.6 mg PO BID #30 tab 09/26/23 Cyclobenzaprine [Flexeril] 5 mg PO TID 11/26/23 Furosemide [Lasix] 20 mg PO DAILY 11/26/23 Nystatin [Nystop] 1 applic TOPICAL BID 11/26/23 Sulfamethoxazole/Trimethoprim [Bactrim DS 800-160 mg] 1 tab PO BID 11/26/23
[2023-11-27 19:47] LABS: Glucose,Whole Blood 253 mg/dL (70-110)
[2023-11-28] MEDS: tiZANidine 4 MG TAB PO PRN (06:10)
[2023-11-28 06:32] LABS: Glucose,Whole Blood 111 mg/dL (70-110)
--- NOTE | 2023-11-28 06:40 | P.PN ---
Subjective Progress Note Date: 11/27/23 68-year-old female came with complaints of unable to walk chronic low back pain increased with low back pain and bilateral leg pain predominantly in the left knee left ankle and her left leg is swollen with some venous stasis without any cellulitis. Patient is on pain medication for a long time and patient takes oxycodone for pain along with Xanax 2 mg twice a day cyclobenzaprine scheduled as an outpatient. Patient denies any fever chills patient left leg is more swollen than the right leg. Patient has elevated creatinine of 1.4 baseline is around 0.7 patient potassium is high as well. Patient has multiple other pain complaining including shoulder pain low back pain without any increased weakness in the legs. 11/27/2023 Patient evaluated today on the medical floor. Reports the IV pain medication helping. She is pending consultation with pain management. Xanax dose has been increased back to home dosing and patient was requested an increase dose. REVIEW OF SYSTEMS: CONSTITUTIONAL: No fever, no malaise, no fatigue. HEENT: No recent visual problems or hearing problems. Denied any sore throat. CARDIOVASCULAR: No chest pain, orthopnea, PND, no palpitations, no syncope. PULMONARY: No shortness of breath, no cough, no hemoptysis. GASTROINTESTINAL: No diarrhea, no nausea, no vomiting, no abdominal pain. NEUROLOGICAL: No headaches, no weakness, no numbness. PHYSICAL EXAMINATION: GENERAL: The patient is alert and oriented x3, not in any acute distress. Well developed, well nourished. HEENT: Pupils are round and equally reacting to light. EOMI. No scleral icterus. No conjunctival pallor. Normocephalic, atraumatic. No pharyngeal erythema. No thyromegaly. CARDIOVASCULAR: S1 and S2 present. No murmurs, rubs, or gallops. PULMONARY: Chest is clear to auscultation, no wheezing or crackles. ABDOMEN: Soft, nontender, nondistended, normoactive bowel sounds. No palpable organomegaly. MUSCULOSKELETAL: No joint swelling or deformity. EXTREMITIES: No cyanosis, clubbing, bilateral lower extremity pedal edema significant on the left leg NEUROLOGICAL: Gross neurological examination did not reveal any focal deficits. SKIN: Left leg is more swollen with venous stasis dermatosis without any significant cellulitis Assessment and plan -Pain in the left knee and left leg will rule out lower extremity DVT any knee or ankle pathology, orthopedic surgery consulted -Chronic low back pain pain management has evaluated the patient -Hyponatremia secondary to probably hypovolemia patient was started on IV fluids, improving -Hyperkalemia secondary to acute renal failure, treated with lokelma and fluids, improving. -Acute renal failure: Etiology is not clear probably acute tubular necrosis, hyperkalemia azotemia IV fluids -type 2 diabetes mellitus -Gastroesophageal reflux disease -Hypertension -Coronary artery disease -History of PE in the past and DVT in the past -Hypothyroidism DVT prophylaxis: Subcutaneous heparin Full Code Patient will require 3 inpatient overnight hospital stays prior to discharge to rehab. The impression and plan of care has been dictated by Ebonie Mark Nurse Practitioner as directed. Dr. Pankaj MD I have performed a history and physical examination and medical decision making of this patient, discussed the same with the dictator, and agree with the dictators assessment and plan as written, documented as a scribe. Based on total visit time, I have performed more than 50% of this visit. Objective - Vital Signs Vital signs: Vital Signs Temp 97.8 F 11/27/23 07:00 Pulse 84 11/27/23 07:00 Resp 16 11/27/23 07:00 BP 150/71 11/27/23 07:00 Pulse Ox 93 L 11/27/23 07:00 FiO2 Intake & Output 11/26/23 11/27/23 11/27/23 18:59 06:59 18:59 Intake Total 421 240 Output Total 1200 550 Balance 421 -1200 -310 Weight 113.398 kg Intake: Oral 421 240 Output: Urine 1200 550 Other: Voiding Method External Catheter External Catheter # Voids 2 1 # Bowel Movements 2 - Labs CBC & Chem 7: 11/27/23 06:07 11/27/23 06:07 Labs: Abnormal Lab Results - Last 24 Hours (Table) 11/26/23 11/26/23 11/27/23 Range/Units 18:15 20:17 06:04 RBC (4.40-5.60) X 10*6/uL Hgb (13.0-17.0) g/dL Hct (39.6-50.0) % MCV (80.0-97.0) FL MCHC (32.0-37.0) g/dL RDW (11.5-14.5) % Glucose (70-110) mg/dL POC Glucose (mg/dL) 293 H 259 H 163 H (70-110) mg/dL Calcium (8.7-10.3) mg/dL 11/27/23 11/27/23 11/27/23 Range/Units 06:07 06:07 12:47 RBC 3.40 L (4.40-5.60) X 10*6/uL Hgb 10.6 L (13.0-17.0) g/dL Hct 35.6 L (39.6-50.0) % MCV 104.7 H (80.0-97.0) FL MCHC 29.8 L (32.0-37.0) g/dL RDW 17.9 H (11.5-14.5) % Glucose 142 H (70-110) mg/dL POC Glucose (mg/dL) 126 H (70-110) mg/dL Calcium 8.5 L (8.7-10.3) mg/dL Assessment and Plan Time with Patient: Less than 30
[2023-11-28] MEDS: INSULIN ASPART (NovoLOG) 100 UNIT/ML VIAL SQ SCH (10:43)
[2023-11-28 12:21] LABS: Glucose,Whole Blood 179 mg/dL (70-110)
[2023-11-28 17:28] LABS: Glucose,Whole Blood 201 mg/dL (70-110)
--- NOTE | 2023-11-28 20:09 | P.PN ---
Subjective Progress Note Date: 11/28/23 68-year-old female came with complaints of unable to walk chronic low back pain increased with low back pain and bilateral leg pain predominantly in the left knee left ankle and her left leg is swollen with some venous stasis without any cellulitis. Patient is on pain medication for a long time and patient takes oxycodone for pain along with Xanax 2 mg twice a day cyclobenzaprine scheduled as an outpatient. Patient denies any fever chills patient left leg is more swollen than the right leg. Patient has elevated creatinine of 1.4 baseline is around 0.7 patient potassium is high as well. Patient has multiple other pain complaining including shoulder pain low back pain without any increased weakness in the legs. 11/27/2023 Patient evaluated today on the medical floor. Reports the IV pain medication helping. She is pending consultation with pain management. Xanax dose has been increased back to home dosing and patient was requested an increase dose. 11/28/2023 Patient evaluated today on the medical floor. Continues to report significant bilateral hip pain and difficulty with ambulation. Pain management has added zanaflex. Discussed with patient about weaning off the xanax. She is hesitant has increased anxiety throughout the day. Plan for discharge [facility] sunday after 3 inpatient overnight hospital stay. REVIEW OF SYSTEMS: CONSTITUTIONAL: No fever, no malaise, no fatigue. HEENT: No recent visual problems or hearing problems. Denied any sore throat. CARDIOVASCULAR: No chest pain, orthopnea, PND, no palpitations, no syncope. PULMONARY: No shortness of breath, no cough, no hemoptysis. GASTROINTESTINAL: No diarrhea, no nausea, no vomiting, no abdominal pain. NEUROLOGICAL: No headaches, no weakness, no numbness. PHYSICAL EXAMINATION: GENERAL: The patient is alert and oriented x3, not in any acute distress. Well developed, well nourished. HEENT: Pupils are round and equally reacting to light. EOMI. No scleral icterus. No conjunctival pallor. Normocephalic, atraumatic. No pharyngeal erythema. No thyromegaly. CARDIOVASCULAR: S1 and S2 present. No murmurs, rubs, or gallops. PULMONARY: Chest is clear to auscultation, no wheezing or crackles. ABDOMEN: Soft, nontender, nondistended, normoactive bowel sounds. No palpable organomegaly. MUSCULOSKELETAL: No joint swelling or deformity. EXTREMITIES: No cyanosis, clubbing, bilateral lower extremity pedal edema significant on the left leg NEUROLOGICAL: Gross neurological examination did not reveal any focal deficits. SKIN: Left leg is more swollen with venous stasis dermatosis without any significant cellulitis Assessment and plan -Pain in the left knee and left leg orthopedics recommending conservative management and rehab. -Chronic low back pain pain management has evaluated the patient -Hyponatremia secondary to probably hypovolemia patient was started on IV fluids, improving -Hyperkalemia secondary to acute renal failure, treated with lokelma and fluids, improving. -Acute renal failure: Etiology is not clear probably acute tubular necrosis, prerenal azotemia, resolved with IV fluids. -type 2 diabetes mellitus -Gastroesophageal reflux disease -Hypertension -Coronary artery disease -History of PE in the past and DVT in the past -Hypothyroidism DVT prophylaxis: Subcutaneous heparin Full Code Patient will require 3 inpatient overnight hospital stays prior to discharge to rehab. The impression and plan of care has been dictated by Ebonie Mark, Nurse Practitioner as directed. Dr. Pankaj MD I have performed a history and physical examination and medical decision making of this patient, discussed the same with the dictator, and agree with the dictators assessment and plan as written, documented as a scribe. Based on total visit time, I have performed more than 50% of this visit. Objective - Vital Signs Vital signs: Vital Signs Temp 97.7 F 11/28/23 14:32 Pulse 80 11/28/23 14:32 Resp 18 11/28/23 14:32 BP 149/69 11/28/23 14:32 Pulse Ox 94 L 11/28/23 16:01 FiO2 Intake & Output 11/28/23 11/28/23 11/29/23 06:59 18:59 06:59 Intake Total 358 Output Total 1275 1350 Balance -1275 -992 Intake: Oral 358 Output: Urine 1275 1350 Other: Voiding Method External Catheter External Catheter # Bowel Movements 1 - Labs CBC & Chem 7: 11/27/23 06:07 11/27/23 06:07 Labs: Abnormal Lab Results - Last 24 Hours (Table) 11/28/23 11/28/23 11/28/23 Range/Units 06:30 12:20 17:27 POC Glucose (mg/dL) 111 H 179 H 201 H (70-110) mg/dL Assessment and Plan Time with Patient: Less than 30
[2023-11-28 21:35] LABS: Glucose,Whole Blood 146 mg/dL (70-110)
[2023-11-29 06:03] LABS: Glucose,Whole Blood 85 mg/dL (70-110)
[2023-11-29 12:09] LABS: Glucose,Whole Blood 147 mg/dL (70-110)
[2023-11-29 17:29] LABS: Glucose,Whole Blood 191 mg/dL (70-110)
[2023-11-29 20:05] LABS: Glucose,Whole Blood 267 mg/dL (70-110)
--- NOTE | 2023-11-29 20:11 | P.PN ---
Subjective Progress Note Date: 11/29/23 68-year-old female came with complaints of unable to walk chronic low back pain increased with low back pain and bilateral leg pain predominantly in the left knee left ankle and her left leg is swollen with some venous stasis without any cellulitis. Patient is on pain medication for a long time and patient takes oxycodone for pain along with Xanax 2 mg twice a day cyclobenzaprine scheduled as an outpatient. Patient denies any fever chills patient left leg is more swollen than the right leg. Patient has elevated creatinine of 1.4 baseline is around 0.7 patient potassium is high as well. Patient has multiple other pain complaining including shoulder pain low back pain without any increased weakness in the legs. 11/27/2023 Patient evaluated today on the medical floor. Reports the IV pain medication helping. She is pending consultation with pain management. Xanax dose has been increased back to home dosing and patient was requested an increase dose. 11/28/2023 Patient evaluated today on the medical floor. Continues to report significant bilateral hip pain and difficulty with ambulation. Pain management has added zanaflex. Discussed with patient about weaning off the xanax. She is hesitant has increased anxiety throughout the day. Plan for discharge to [facility] sunday after 3 inpatient overnight hospital stay. 11/29/2023 Patient is evaluated today on the medical floor. Patient continues to report pain to the legs and bilateral hips. Was evaluated by pain management and orthopedics. Patient has been primarily bedrest this hospital stay. She will be discharged to subacute rehab tomorrow. REVIEW OF SYSTEMS: CONSTITUTIONAL: No fever, no malaise, no fatigue. HEENT: No recent visual problems or hearing problems. Denied any sore throat. CARDIOVASCULAR: No chest pain, orthopnea, PND, no palpitations, no syncope. PULMONARY: No shortness of breath, no cough, no hemoptysis. GASTROINTESTINAL: No diarrhea, no nausea, no vomiting, no abdominal pain. NEUROLOGICAL: No headaches, no weakness, no numbness. PHYSICAL EXAMINATION: GENERAL: The patient is alert and oriented x3, not in any acute distress. Well developed, well nourished. HEENT: Pupils are round and equally reacting to light. EOMI. No scleral icterus. No conjunctival pallor. Normocephalic, atraumatic. No pharyngeal erythema. No thyromegaly. CARDIOVASCULAR: S1 and S2 present. No murmurs, rubs, or gallops. PULMONARY: Chest is clear to auscultation, no wheezing or crackles. ABDOMEN: Soft, nontender, nondistended, normoactive bowel sounds. No palpable organomegaly. MUSCULOSKELETAL: No joint swelling or deformity. EXTREMITIES: No cyanosis, clubbing, bilateral lower extremity pedal edema significant on the left leg NEUROLOGICAL: Gross neurological examination did not reveal any focal deficits. SKIN: Left leg is more swollen with venous stasis dermatosis without any significant cellulitis Assessment and plan -Pain in the left knee and left leg orthopedics recommending conservative management and rehab. -Chronic low back pain pain management has evaluated the patient -Hyponatremia secondary to probably hypovolemia patient was started on IV fluids, improving -Hyperkalemia secondary to acute renal failure, treated with lokelma and fluids, improving. -Acute renal failure: Etiology is not clear probably acute tubular necrosis, prerenal azotemia, resolved with IV fluids. -type 2 diabetes mellitus -Gastroesophageal reflux disease -Hypertension -Coronary artery disease -History of PE in the past and DVT in the past -Hypothyroidism DVT prophylaxis: Subcutaneous heparin Full Code Patient will require 3 inpatient overnight hospital stays prior to discharge to rehab. Check a BMP in the AM. Continue supportive care recommending to turn the patient every 2 hours. Patient will be discharged to rehab in the next 24 hours. The impression and plan of care has been dictated by Ebonie Mark, Nurse Practitioner as directed. Dr. Pankaj MD I have performed a history and physical examination and medical decision making of this patient, discussed the same with the dictator, and agree with the dictators assessment and plan as written, documented as a scribe. Based on total visit time, I have performed more than 50% of this visit. Objective - Vital Signs Vital signs: Vital Signs Temp 98.3 F 11/29/23 07:47 Pulse 72 11/29/23 07:47 Resp 16 11/29/23 07:47 BP 125/62 11/29/23 07:47 Pulse Ox 93 L 11/29/23 07:47 FiO2 Intake & Output 11/28/23 11/29/23 11/29/23 18:59 06:59 18:59 Intake Total 358 237 Output Total 1350 600 Balance -992 -363 Intake: Oral 358 237 Output: Urine 1350 600 Other: Voiding Method External Catheter External Catheter # Bowel Movements 1 - Labs CBC & Chem 7: 11/27/23 06:07 11/27/23 06:07 Labs: Abnormal Lab Results - Last 24 Hours (Table) 11/28/23 11/28/23 11/29/23 Range/Units 17:27 21:34 12:07 POC Glucose (mg/dL) 201 H 146 H 147 H (70-110) mg/dL Assessment and Plan Time with Patient: Less than 30
[2023-11-30 05:38] LABS: Glucose,Whole Blood 101 mg/dL (70-110)
[2023-11-30 08:07] VITALS: BP 126/65; PULSE 76; RESP 18; TEMP 98.3
--- NOTE | 2023-11-30 09:04 | P.DS ---
Providers Date of admission: 11/27/23 08:54 Attending physician: Francisco Vela Primary care physician: Miguel Sy Hospital Course: Final Diagnosis -Pain in the left knee and left leg orthopedics recommending conservative management and rehab. -Chronic low back pain pain management has evaluated the patient -Hyponatremia secondary to probably hypovolemia resolved -Hyperkalemia secondary to acute renal failure, treated with lokelma and fluids, normalized -Acute renal failure: Etiology is not clear probably acute tubular necrosis, prerenal azotemia, resolved with IV fluids. -type 2 diabetes mellitus -Gastroesophageal reflux disease -Hypertension -Coronary artery disease -History of PE in the past and DVT in the past -Hypothyroidism Full Code Discharge Disposition Stable for discharge to subacute rehab. As mentioned we will begin weaning her Xanax with further recommendations outpatient by her family doctor. Patient was evaluated by pain management services and is recommending to continue the patient on her home dose of oxycodone as well as the addition of Zanaflex. Patient will have a repeat CBC and BMP in 2 to 3 days outpatient. Hospital Course This is a 68-year-old female came with complaints of unable to walk chronic low back pain increased with low back pain and bilateral leg pain predominantly in the left knee left ankle and her left leg is swollen with some venous stasis without any cellulitis. Patient is on pain medication for a long time and patient takes oxycodone for pain along with Xanax 2 mg twice a day cyclobenzaprine scheduled as an outpatient. Patient denies any fever chills patient left leg is more swollen than the right leg. Patient has elevated creatinine of 1.4 baseline is around 0.7 patient potassium is high as well. Patient has multiple other pain complaining including shoulder pain low back pain without any increased weakness in the legs. Patient was started on IV fluids and admitted to the hospital under medicine with pain management consultation. Pain management has added zanaflex and recommending to continue the patient no her home dose of oxycodone. Patient was evaluated by physical therapy and will need subacute rehab on discharge. Patient has been maintained on 3 mg of Xanax 3 times a day and discussed the importance about weaning off of this medication or cutting down on the dose with the patient. She feels she is dependent on the Xanax at this time we would recommend to continue 2 mg in the morning and decrease her afternoon and evening dose to 1.5 mg to begin the weaning process. This can be further weaned by her family doctor outpatient. Renal function has normalized with a BUN of 15.1 and a creatinine of 0.9. Her blood glucose is fluctuating between 140s to 200s and she will continue on her long-acting insulin at 50 units twice a day and continue on sliding scale insuli n. She is denying chest pain denying shortness of breath she is not having any nausea vomiting or diarrhea and has been having bowel movements. Her lungs are clear to auscultation S1-S2 auscultated abdomen is soft and nontender she is alert x 3 with a negative focal neurological examination. Hemodynamically patient is stable and she will be discharged to subacute rehab today. Please see medication reconciliation for a list of current medications. Thank you for allowing us to participate in the care of this patient. The impression and plan of care has been dictated by Ebonie Mark, Nurse Practitioner as directed. Dr. Pankaj MD I have performed a history and physical examination and medical decision making of this patient, discussed the same with the dictator, and agree with the dictators assessment and plan as written, documented as a scribe. Based on total visit time, I have performed more than 50% of this visit. Patient Condition at Discharge: Stable Plan - Discharge Summary New Discharge Prescriptions: New Heparin Sodium,Porcine (1 ml) [Heparin Sodium] 5,000 unit SQ Q8HR each Lidocaine 4% Patch 1 patch TOPICAL DAILY patch ALPRAZolam [Xanax] 1.5 mg PO 1400,2200 #4 tab oxyCODONE HCL [OxyIR] 10 mg PO TID #6 tab tiZANidine [Zanaflex] 4 mg PO TID PRN tab PRN Reason: Pain Scale 4 To 6 Continue Clopidogrel [Plavix] 75 mg PO DAILY traZODone HCL [Desyrel] 200 mg PO HS Ezetimibe [Zetia] 10 mg PO DAILY 30 Days #30 tab Insulin Lispro [humaLOG Kwikpen] See Protocol SQ AC-TID Aspirin EC [Ecotrin Low Dose] 81 mg PO DAILY Nystatin [Nystop] 1 applic TOPICAL BID Insulin Glargine,Hum.rec.anlog [Lantus Solostar Pen] 50 - 60 units SQ BID Levothyroxine Sodium [Synthroid] 300 mcg PO DAILY Metoclopramide [Reglan] 5 mg PO QID PRN PRN Reason: Nausea Primidone [Mysoline] 125 mg PO BID #60 tab Metoprolol Succinate (ER) [Toprol XL] 25 mg PO DAILY Hydrocortisone Suppository [Anusol-Hc] 25 mg RECTAL DAILY 5 Days #5 suppositor Sennosides [Senokot] 8.6 mg PO BID #30 tab Furosemide [Lasix] 20 mg PO DAILY Changed ALPRAZolam [Xanax] 2 mg PO 0900 #2 tab Discontinued oxyCODONE HCL [oxyCODONE HCL (IR)] 10 mg PO TID Cyclobenzaprine [Flexeril] 5 mg PO TID diphenhydrAMINE HCL [Benadryl] 25 mg PO DAILY PRN PRN Reason: allergies Sulfamethoxazole/Trimethoprim [Bactrim DS 800-160 mg] 1 tab PO BID Discharge Medication List Clopidogrel [Plavix] 75 mg PO DAILY 07/07/19 [History] traZODone HCL [Desyrel] 200 mg PO HS 07/07/19 [History] Ezetimibe [Zetia] 10 mg PO DAILY 30 Days #30 tab 01/30/20 [Rx] Insulin Glargine,Hum.rec.anlog [Lantus Solostar Pen] 50 - 60 units SQ BID 06/09/21 [History] Levothyroxine Sodium [Synthroid] 300 mcg PO DAILY 08/30/21 [History] Metoclopramide [Reglan] 5 mg PO QID PRN 09/10/21 [History] Primidone [Mysoline] 125 mg PO BID #60 tab 06/22/23 [Rx] Aspirin EC [Ecotrin Low Dose] 81 mg PO DAILY 09/21/23 [History] Insulin Lispro [humaLOG Kwikpen] See Protocol SQ AC-TID 09/21/23 [History] Metoprolol Succinate (ER) [Toprol XL] 25 mg PO DAILY 09/21/23 [History] Hydrocortisone Suppository [Anusol-Hc] 25 mg RECTAL DAILY 5 Days #5 suppositor 09/26/23 [Rx] Sennosides [Senokot] 8.6 mg PO BID #30 tab 09/26/23 [Rx] Furosemide [Lasix] 20 mg PO DAILY 11/26/23 [History] Nystatin [Nystop] 1 applic TOPICAL BID 11/26/23 [History] ALPRAZolam [Xanax] 1.5 mg PO 1400,2200 #4 tab 11/30/23 [Rx] ALPRAZolam [Xanax] 2 mg PO 0900 #2 tab 11/30/23 [Rx] Heparin Sodium,Porcine (1 ml) [Heparin Sodium] 5,000 unit SQ Q8HR each 11/30/23 [Rx] Lidocaine 4% Patch 1 patch TOPICAL DAILY patch 11/30/23 [Rx] oxyCODONE HCL [OxyIR] 10 mg PO TID #6 tab 11/30/23 [Rx] tiZANidine [Zanaflex] 4 mg PO TID PRN tab 11/30/23 [Rx] Follow up Appointment(s)/Referral(s): Miguel Sy MD [Primary Care Provider] - 1-2 days [facility] [NON-STAFF] - 1 Week Ambulatory/Diagnostic Orders: Basic Metabolic Panel [LAB.AMB] Time Frame: 3 Days, Location: None Selected Complete Blood Count w/diff [LAB.AMB] Location: None Selected Activity/Diet/Wound Care/Special Instructions: Follow up with pain clinic Repeat labs in 2 to 3 days Discharge Disposition: TRANSFER TO SNF/ECF
[2023-11-30 10:54] LABS: Blood Urea Nitrogen 11.2 mg/dL (9.0-27.0); Calcium 8.4 mg/dL (8.7-10.3); Chloride 106 mmol/L (96-109); Glucose 108 mg/dL (70-110); Sodium 139 mmol/L (135-145)
== END 2023-11-30 12:03 | DRG 683 ==
LOC: EC 18:52 → 6NMEDSUR 20:51 → OBSVTOIN 11-27 08:54
PROVIDERS: ADMIT Hospitalist; ATTEND Hospitalist
DX: N17.0 Acute kidney failure with tubular necrosis (principal); D68.51 Activated protein C resistance; E87.1 Hypo-osmolality and hyponatremia; Z68.41 Body mass index [BMI] 40.0-44.9, adult; E11.51 Type 2 diabetes mellitus with diabetic peripheral angiopathy without gangrene; E11.610 Type 2 diabetes mellitus with diabetic neuropathic arthropathy; E78.5 Hyperlipidemia, unspecified; E66.9 Obesity, unspecified; E86.0 Dehydration; E86.1 Hypovolemia; E87.5 Hyperkalemia; I10 Essential (primary) hypertension; E03.9 Hypothyroidism, unspecified; F32.A Depression, unspecified; F41.0 Panic disorder [episodic paroxysmal anxiety]; G89.29 Other chronic pain; M25.552 Pain in left hip; M25.551 Pain in right hip; M25.572 Pain in left ankle and joints of left foot; I87.8 Other specified disorders of veins; K58.9 Irritable bowel syndrome, unspecified; R29.6 Repeated falls; R25.1 Tremor, unspecified; M54.32 Sciatica, left side; M54.31 Sciatica, right side; I25.10 Atherosclerotic heart disease of native coronary artery without angina pectoris; I25.2 Old myocardial infarction; K21.9 Gastro-esophageal reflux disease without esophagitis; M17.12 Unilateral primary osteoarthritis, left knee; Z79.02 Long term (current) use of antithrombotics/antiplatelets; Z79.4 Long term (current) use of insulin; Z79.82 Long term (current) use of aspirin; Z79.890 Hormone replacement therapy; Z79.899 Other long term (current) drug therapy; Z85.828 Personal history of other malignant neoplasm of skin; Z86.711 Personal history of pulmonary embolism; Z86.718 Personal history of other venous thrombosis and embolism; Z87.01 Personal history of pneumonia (recurrent); Z87.440 Personal history of urinary (tract) infections; Z87.891 Personal history of nicotine dependence; Z88.2 Allergy status to sulfonamides; Z88.6 Allergy status to analgesic agent; Z88.1 Allergy status to other antibiotic agents; Z91.041 Radiographic dye allergy status
CPT/HCPCS: 36415; 71045; 72100; 80048; 80053; 83735; 84484; 85025; 85027; 85610; 85730; 87636; 93005; 93970; 94760; 96361; 96374; 96375; 99285

== ENCOUNTER → 2023-12-19 | Outpatient (CLI) | payer MEDICARE, BC ==
[2023-12-19 13:38] VITALS: BP 142/72; PULSE 73; RESP 15; TEMP 98.6
--- NOTE | 2023-12-19 14:50 | P.PAINPG ---
PQRS Measure Charge Sheet Comment: HISTORY OF PRESENT ILLNESS: A 68 yr old female as a referral from presents today w severe and chronic LBP > 1 yr secondary to DD, spondylosis and facet arthropathy without myelopathy for evaluation. Pt states pain level is provoked at 8 /10 in intensity, constant, localized in the , predominantly axial, achy in character w occasional shooting pain towards the back and LEs. Pain is provoked by weight bearing activity. Pain is alleviated by physician guided home stretches 4 times weekly since Nov 2023. medications (Oxycodone 10mg #90, Zanaflex), topical , heat, use of a wheelchair for ambulatory assistance, repositioning and rest . Oswestry axial pain score at 35. PMH: OA, Factor V Leiden Deficiency, Skin CA, IDDM II, DVT, GERD Hyperlipidemia, HTN, MO x5 (2019), Neurologic Disorder, L Lung PE, Hypothyroid Disorder, Charcot's Syndrome, IBS, LLE Lymphedema, MDD/ Anxiety/ Panic Disorder PSH: Skin CA Removal, Appendectomy, Cholecystectomy, Heart Catheterization With Stent (2019), Hernia Repair, BL Salpingectomy, BL Oophorectomy, Abd Hernia Repairs, Hysterectomy, Tonsillectomy, L Foot Surgery s/p Fracture, BL Cataract Extractions, ESIs (2019) SH: 40 pack/ yr former tobacco user, No ETOH use, No illicit drug use. Both parents had complications of tobacco use. and lives w spouse. FH: Mo- COPD. Fa- Lung CA. Son- DVT. All: See list including Plavix, ASA, Insulins Meds: See list REVIEW OF ORGAN SYSTEMS: CONSTITUTIONAL: No fevers or chills. No recent weight loss. NEUROLOGICAL: + numbness and tingling along the distal extremities. No seizure disorders or headaches. MUSCULOSKELETAL: + pain PSYCHIATRIC: Denies current depression or suicidal thoughts. Physical Examinations : Constitutional : Cooperative , not in acute distress . Neurologic : Cranial nerve II to XII intact. No focal neurological deficits. Psychiatric : alert & oriented x 3. Matching mood & appropriate affect. Judgment & insight intact. Musculoskeletal : Cervical Spine Motor strength in the deltoid and biceps: Normal right side. Normal Left side Motor strength biceps and the wrist extensors: Normal right side . Normal left side Motor strength in the triceps muscle: Normal right side. Normal left side Deep tendon reflexes: Normal at the biceps. Normal at Brachioradialis. Normal at triceps Vertebral body tenderness to deep palpation over Cervical facet loading test: positive bilaterally Spurling test: positive bilaterally Neck distraction test: positive bilaterally Prabhjot sign: positive bilaterally Lumbar spine Motor strength lower extremities ,thigh and legs 5/5 Right side , 5/5 Left side Deep tendon reflexes : Normal Knee Jerk. Normal Ankle Jerk Vertebral body tenderness over Wadsworth Test positive Lumbar facet Loading Test: positive Right / positive Left Range of motion of the lumbar spine Flexion 30 degrees, extension 10 degrees Straight Leg Raise test: Left/ Right positive at degrees Romelia test: positive right / positive left. Severe tenderness over the Sacroiliac joint on the Right / Left sides Gaenslen test: positive bilaterally Seated flexion test: positive bilaterally. Sacral spine : Severe tenderness over the Sacroiliac joint: right side / left side Range of motion: Flexion of the lumbar spine <60 degrees Range of motion: Extension of the lumbar spine <20 degrees Gaenslen's Test positive Romelia test: positive right side / left side Thigh Thrust Test Sacral Thrust Test Imaging: Lumbar x ray from 11/26/23 reviewed Assessment/ Plan : L4-L5 DDD Recommendation of medication management. Has 2 refills of Oxycodone 10mg #[address] Schwarz's office at the pharmacy. Has [address] Roman Iglesias which was filled last month. RTC on an as needed basis. All questions answered. I have spent greater than 30 minutes on patient care today. Dr Marcos was available by phone for the evaluation of this patient. The time was used to review the medical records including relevant urine studies and Prescription history (MAPs), review of the available imaging, evaluation and examination of the patient, coordination of care with the medical staff and if applicable referring physicians, as well as creation of the medical record PQRS Narrative: Smoking Status Former smoker Hx Alcohol Use (MH) No Home Medications: Ambulatory Orders Clopidogrel [Plavix] 75 mg PO DAILY 07/07/19 traZODone HCL [Desyrel] 200 mg PO HS 07/07/19 Ezetimibe [Zetia] 10 mg PO DAILY 30 Days #30 tab 01/30/20 Insulin Glargine,Hum.rec.anlog [Lantus Solostar Pen] 50 - 60 units SQ BID 06/09/21 Levothyroxine Sodium [Synthroid] 300 mcg PO DAILY 08/30/21 Metoclopramide [Reglan] 5 mg PO QID PRN 09/10/21 Primidone [Mysoline] 125 mg PO BID #60 tab 06/22/23 Aspirin EC [Ecotrin Low Dose] 81 mg PO DAILY 09/21/23 Insulin Lispro [humaLOG Kwikpen] See Protocol SQ AC-TID 09/21/23 Metoprolol Succinate (ER) [Toprol XL] 25 mg PO DAILY 09/21/23 Hydrocortisone Suppository [Anusol-Hc] 25 mg RECTAL DAILY 5 Days #5 suppositor 09/26/23 Sennosides [Senokot] 8.6 mg PO BID #30 tab 09/26/23 Furosemide [Lasix] 20 mg PO DAILY 11/26/23 Nystatin [Nystop] 1 applic TOPICAL BID 11/26/23 ALPRAZolam [Xanax] 1.5 mg PO 1400,2200 #4 tab 11/30/23 ALPRAZolam [Xanax] 2 mg PO 0900 #2 tab 11/30/23 Heparin Sodium,Porcine (1 ml) [Heparin Sodium] 5,000 unit SQ Q8HR each 11/30/23 Lidocaine 4% Patch 1 patch TOPICAL DAILY patch 11/30/23 oxyCODONE HCL [OxyIR] 10 mg PO TID #6 tab 11/30/23 tiZANidine [Zanaflex] 4 mg PO TID PRN tab 11/30/23 Controlled Substance Measures - Controlled Substance Measures Is patient prescribed a controlled substance at discharge?: No
== END | disposition home or self-care (01) ==
LOC: PNWHC3 12:48
PROVIDERS: ATTEND Specialist
DX: M51.36 Other intervertebral disc degeneration, lumbar region (principal); Z88.1 Allergy status to other antibiotic agents; Z88.5 Allergy status to narcotic agent; Z88.7 Allergy status to serum and vaccine; Z91.09 Other allergy status, other than to drugs and biological substances; Z87.891 Personal history of nicotine dependence
CPT/HCPCS: 99211

== ENCOUNTER 2024-07-15 05:42 | Inpatient (IN) | payer MEDICARE, BC ==
[2024-07-15 05:49] LABS: Glucose,Whole Blood 378 mg/dL (70-110)
--- NOTE | 2024-07-15 05:59 | ED ---
General Adult HPI - General Chief complaint: Shortness of Breath Stated complaint: Fall Time Seen by Provider: 07/15/24 05:53 Source: EMS Mode of arrival: EMS - History of Present Illness Initial comments: Dictation was produced using [employer] dictation software. please excuse any gra mmatical, word or spelling errors. Chief Complaint: 69-year-old female presents to the emergency department after found unresponsive in the bathroom History of Present Illness: Patient 69-year-old female she has multiple comorbidities including DVT, diabetes blood disorder hypertension. EMS provides history present illness. Patient was allegedly found unresponsive in the bathroom. EMS states that patient was pale arevalo and cyanotic with O2 sat 50%. EMS states she was folded over between the toilet and the wall. Blood glucose in the 400s by EMS. She was placed on nonrebreather oxygen and her skin color improved Unable to obtain ROS secondary to mental status - Related Data Home Medications Medication Instructions Recorded Confirmed Clopidogrel [Plavix] 75 mg PO DAILY 07/07/19 11/26/23 traZODone HCL [Desyrel] 200 mg PO HS 07/07/19 11/26/23 Insulin Glargine,Hum.rec.anlog 50 - 60 units SQ BID 06/09/21 11/26/23 [Lantus Solostar Pen] Levothyroxine Sodium [Synthroid] 300 mcg PO DAILY 08/30/21 11/26/23 Metoclopramide [Reglan] 5 mg PO QID PRN 09/10/21 11/26/23 Aspirin EC [Ecotrin Low Dose] 81 mg PO DAILY 09/21/23 11/26/23 Insulin Lispro [humaLOG Kwikpen] See Protocol SQ AC-TID 09/21/23 11/26/23 Metoprolol Succinate (ER) [Toprol 25 mg PO DAILY 09/21/23 11/26/23 XL] Furosemide [Lasix] 20 mg PO DAILY 11/26/23 11/26/23 Nystatin [Nystop] 1 applic TOPICAL BID 11/26/23 11/26/23 Previous Rx's Medication Instructions Recorded Ezetimibe [Zetia] 10 mg PO DAILY 30 Days #30 tab 01/30/20 Primidone [Mysoline] 125 mg PO BID #60 tab 06/22/23 Hydrocortisone Suppository 25 mg RECTAL DAILY 5 Days #5 09/26/23 [Anusol-Hc] suppositor Sennosides [Senokot] 8.6 mg PO BID #30 tab 09/26/23 ALPRAZolam [Xanax] 1.5 mg PO 1400,2200 #4 tab 11/30/23 ALPRAZolam [Xanax] 2 mg PO 0900 #2 tab 11/30/23 Heparin Sodium,Porcine (1 ml) 5,000 unit SQ Q8HR each 11/30/23 [Heparin Sodium] Lidocaine 4% Patch 1 patch TOPICAL DAILY patch 11/30/23 oxyCODONE HCL [OxyIR] 10 mg PO TID #6 tab 11/30/23 tiZANidine [Zanaflex] 4 mg PO TID PRN tab 11/30/23 Allergies Allergy/AdvReac Type Severity Reaction Status Date / Time Iodinated Contrast Media Allergy Rash/Hives Verified 07/15/24 05:48 Iodine and Iodide Containing Allergy Rash/Hives Verified 07/15/24 05:48 Produc liraglutide [From Saxenda] AdvReac Unknown Nausea & Verified 07/15/24 05:48 Vomiting NSAIDS (Non-Steroidal AdvReac Unknown Nausea & Verified 07/15/24 05:48 Anti-Inflamma Vomiting aspirin AdvReac Nausea & Verified 07/15/24 05:48 Vomiting with high doses azithromycin AdvReac Vomiting Verified 07/15/24 05:48 naproxen [From Naprosyn] AdvReac Nausea & Verified 07/15/24 05:48 Vomiting Review of Systems ROS Statement: Those systems with pertinent positive or pertinent negative responses have been documented in the HPI. ROS Other: All systems not noted in ROS Statement are negative. Past Medical History Past Medical History: Blood Disorder, Cancer, Diabetes Mellitus, Deep Vein Thrombosis (DVT), GERD/Reflux, Hyperlipidemia, Hypertension, Myocardial Infarction (OK), Neurologic Disorder, Osteoarthritis (OA), Pulmonary Embolus (PE), Thyroid Disorder Additional Past Medical History / Comment(s): Factor 5 leiden, DVT L leg, PE L lung, MIs x 5, palpitations, IDDM type II, neuropathy bilateral legs/feet, lymphedema L leg, charcot syndrome L foot, chronic low back pain, bilateral sc iatica,hx bronchitis, anemia, hypothyroid, hx UTI, IBS, sinus problems, worsening tremors, "stomach shivering inside" plans to f/u with pcp. skin cancer removal. hx of pneumonia long ago, pelvic fx Last Myocardial Infarction Date:: January 2020 History of Any Multi-Drug Resistant Organisms: VRE Date of last positivie culture/infection: 08/24/23 MDRO Source:: Urine Past Surgical History: Appendectomy, Cholecystectomy, Heart Catheterization With Stent, Hernia Repair, Hysterectomy, Tonsillectomy Additional Past Surgical History / Comment(s): Bilateral salpingectomy, bilateral oophorectomy, abdominal hernia surgeries, L foot fracture, bilateral cataract removals, epidural injections with last on 01/20/20 lumbar, LAST PROCEDURE 04/19/21 Past Anesthesia/Blood Transfusion Reactions: No Reported Reaction Additional Past Anesthesia/Blood Transfusion Reaction / Comment(s): Pt has received blood in past without reaction. Date of Last Stent Placement:: January 2020 Past Psychological History: Anxiety, Depression, Panic Disorder Smoking Status: Former smoker - Past Family History Mother Family Medical History: COPD Additional Family Medical History / Comment(s): Mother was a smoker. Father Family Medical History: Cancer Additional Family Medical History / Comment(s): Lung cancer. Father was a smoker. Son(s) Family Medical History: Deep Vein Thrombosis (DVT) General Exam - General Exam Comments Initial Comments: PHYSICAL EXAM: General Impression: Lethargic, dyspneic HEENT: Normocephalic atraumatic, extra-ocular movements intact, pupils equal and reactive to light bilaterally, mucous membranes moist. Cardiovascular: Heart regular rate and rhythm Chest: Able to complete full sentences, no retractions, no tachypnea Abdomen: abdomen soft, non-tender, non-distended, no organomegaly Musculoskeletal: Pulses present and equal in all extremities, no peripheral edema Motor: no focal deficits noted Neurological: CN II-XII grossly intact, no focal motor or sensory deficits noted Skin: Intact with no visualized rashes Psych: Normal affect and mood Course Vital Signs 07/15/24 07/15/24 05:44 05:56 Temperature 96.9 F L Pulse Rate 112 H Respiratory 12 Rate Blood Pressure 124/68 O2 Sat by Pulse 98 Oximetry Fraction of 50 Inspired Oxygen (FIO2) - Reevaluation(s) Reevaluation #1: 07/15/24 06:36 Patient given Narcan with no improvement patient given Narcan with no clinical change Reevaluation #2: 07/15/24 06:55 More history was obtained by family who is currently at the bedside states that she has been dealing with bronchitis and double ear infection for the last 7 days. states that he was with her at around 8 PM last night when she was in her usual state of health. At around 4:30 AM he heard her falling for him when that is when it was discovered that she was found to be in distress. was unable to help her which is when EMS was called. Reevaluation #3: 07/15/24 07:39 There was some concern that patient would benefit from ICU observation. Case discussed with tooth inspector who will come and evaluate the patient. He states that if she is stable that she can be admitted to the floor. EKG Findings - EKG Comments: EKG Findings:: My EKG interpretation: Ventricular rate 110, sinus tachycardia,. 144, QRS 96, QTc 399. No MN prolongation, no QTC prolongation, no ST or T-wave changes noted. EKG compared to June 22, 2023 showing no changes. Overall, this EKG is unremarkable Medical Decision Making - Medical Decision Making Was pt. sent in by a medical professional or institution (, [facility], [employer], urgent care, hospital, or [facility]...) When possible be specific @ -No Did you speak to anyone other than the patient for history (EMS, parent, family, police, friend...)? What history was obtained from this source @ -History obtained from EMS as described above Did you review nursing and triage notes (agree or disagree)? Why? @ -I reviewed and agree with nursing and triage notes Were old charts reviewed (outside hosp., previous admission, EMS record, old EKG, old radiological studies, urgent care reports/EKG's, [facility] records)? Report findings @ -Discharge summary from November of this year was reviewed showing that patient has history of chronic pain, hyponatremia, hyperkalemia, acute renal failure Differential Diagnosis (chest pain, altered mental status, abdominal pain women, abdominal pain men, vaginal bleeding, musculoskeletal, weakness, fever, dyspnea, syncope, headache, dizziness, GI bleed, back pain, seizure, CVA, palpatations, mental health)? @ -Differential Syncope: Valvular disease, hypertrophic cardiomyopathy, pulmonary embolism, tamponade, tachycardia, bradycardia, OK, hypovolemia, hemorrhage, dissection, anemia, intracranial hemorrhage, seizure, hypoglycemia, carbon monoxide poisoning, this is not meant to be an all-inclusive list. EKG interpreted by me (3pts min.). @ -see above X-rays interpreted by me (1pt min.). @ -Chest x-ray shows consolidation left lower lobe, mild pulmonary edema. Pelvis x-ray shows no traumatic processes. CT interpreted by me (1pt min.). @ -CT brain and C-spine shows no acute processes. CT chest abdomen pelvis shows pneumonia. U/S interpreted by me (1pt. min.). @ -None done What testing was considered but not performed or refused? (CT, X-rays, U/S, labs)? Why? @ -None What meds were considered but not given or refused? Why? @ -None Was smoking cessation discussed for >3mins.? @ -No Were there social determinants of health that impacted care today? How? (Homelessness, low income, unemployed, alcoholism, drug addiction, transportation, low edu. Level, literacy, decrease access to med. care, snf, rehab)? @ -History of drug use Was there de-escalation of care discussed even if they declined (Discuss DNR or withdrawal of care, Hospice)? DNR status @ -No What co-morbidities impacted this encounter? (DM, HTN, Smoking, COPD, CAD, Cancer, CVA, ARF, Chemo, Hep., AIDS, mental health diagnosis, sleep apnea, mor bid obesity)? @ -Chronic pain Was patient admitted / discharged? Hospital course, mention meds given and route, prescriptions, significant lab abnormalities, going to OR and other pertinent info. @ -69-year-old female found at home unresponsive. It is unclear how long patient has been on the ground in the bathroom. EMS states that patient was cyanotic, hypoxic and pale upon initial evaluation. Per EMS her condition improved with supplemental oxygen. Vital signs upon arrival shows heart rate of 112, 98% on 15 L nonrebreather. Patient lethargic at the bedside placed on BiPAP for respiratory support. Narcan given with no clinical change. Pelvis x- ray negative. Chest x-ray shows left lower lobe consolidation. CT brain and C- spine shows no acute processes. CT chest abdomen pelvis shows pneumonia. Patient reevaluated at bedside at 7:18 AM with improved condition. She is better appearing than upon initial arrival after several minutes on BiPAP. Case discussed with hospitalist for admission. Patient treated with antibiotics. Critical care time, 33 minutes Diagnosis/symptom? @ -Pneumonia, hypoxic respiratory failure Acute, or Chronic, or Acute on Chronic? @ -Acute Uncomplicated (without systemic symptoms) or Complicated (systemic symptoms)? @ -Complicated Side effects of treatment? @ -None Exacerbation, Progression, or Severe Exacerbation] @ -No Poses a threat to life or bodily function? @ -yes - Lab Data Result diagrams: 07/15/24 06:25 07/15/24 06:25 Lab Results 07/15/24 07/15/24 07/15/24 Range/Units 05:48 06:18 06:25 WBC 9.3 (3.8-10.6) k/uL RBC 3.36 L (3.80-5.40) m/uL Hgb 10.7 L (11.4-16.0) gm/dL Hct 35.6 (34.0-46.0) % MCV 105.9 H (80.0-100.0) fL MCH 31.8 (25.0-35.0) pg MCHC 30.0 L (31.0-37.0) g/dL RDW 15.5 (11.5-15.5) % Plt Count 204 (150-450) k/uL MPV 8.6 Neutrophils % 86 % Lymphocytes % 9 % Monocytes % 3 % Eosinophils % 0 % Basophils % 0 % Neutrophils # 8.0 H (1.3-7.7) k/uL Lymphocytes # 0.8 L (1.0-4.8) k/uL Monocytes # 0.3 (0-1.0) k/uL Eosinophils # 0.0 (0-0.7) k/uL Basophils # 0.0 (0-0.2) k/uL Hypochromasia Marked Macrocytosis Moderate PT (10.0-12.5) sec INR (<1.2) APTT (22.0-30.0) sec Sodium (137-145) mmol/L Potassium (3.5-5.1) mmol/L Chloride (98-107) mmol/L Carbon Dioxide (22-30) mmol/L Anion Gap mmol/L BUN (7-17) mg/dL Creatinine (0.52-1.04) mg/dL Est GFR (CKD-EPI)AfAm (>60 ml/min/1.73 sqM) Est GFR (CKD-EPI)NonAf (>60 ml/min/1.73 sqM) Glucose (74-99) mg/dL POC Glucose (mg/dL) 378 H (70-110) mg/dL POC Glu Anvilsmith ID Marcos Vincent Plasma Lactic Acid Lloyd (0.7-2.0) mmol/L Calcium (8.4-10.2) mg/dL Total Bilirubin (0.2-1.3) mg/dL AST (14-36) U/L ALT (4-34) U/L Alkaline Phosphatase (38-126) U/L Creatine Kinase (30-135) U/L Troponin I (0.000-0.034) ng/mL Total Protein (6.3-8.2) g/dL Albumin (3.5-5.0) g/dL Urine Opiates Screen (NotDetected) Ur Oxycodone Screen (NotDetected) Urine Methadone Screen (NotDetected) Ur Barbiturates Screen (NotDetected) U Tricyclic Antidepress (NotDetected) Ur Phencyclidine Scrn (NotDetected) Ur Amphetamines Screen (NotDetected) U Methamphetamines Scrn (NotDetected) U Benzodiazepines Scrn (NotDetected) Urine Cocaine Screen (NotDetected) U Marijuana (THC) Screen (NotDetected) Serum Alcohol mg/dL Influenza Type A (PCR) (Not Detectd) Influenza Type B (PCR) (Not Detectd) RSV (PCR) (Not Detectd) SARS-CoV-2 (PCR) (Not Detectd) Blood Type A Positive Blood Type Confirm Blood Type Recheck No Previous Record Bld Type Recheck Status CABO Indicated Antibody Screen POSITIVE Spec Expiration Date 07/18/2024 - 231707/15/24 07/15/24 07/15/24 Range/Units 06:25 06:25 06:25 WBC (3.8-10.6) k/uL RBC (3.80-5.40) m/uL Hgb (11.4-16.0) gm/dL Hct (34.0-46.0) % MCV (80.0-100.0) fL MCH (25.0-35.0) pg MCHC (31.0-37.0) g/dL RDW (11.5-15.5) % Plt Count (150-450) k/uL MPV Neutrophils % % Lymphocytes % % Monocytes % % Eosinophils % % Basophils % % Neutrophils # (1.3-7.7) k/uL Lymphocytes # (1.0-4.8) k/uL Monocytes # (0-1.0) k/uL Eosinophils # (0-0.7) k/uL Basophils # (0-0.2) k/uL Hypochromasia Macrocytosis PT 10.6 (10.0-12.5) sec INR 1.0 (<1.2) APTT 22.6 (22.0-30.0) sec Sodium 134 L (137-145) mmol/L Potassium 4.9 (3.5-5.1) mmol/L Chloride 100 (98-107) mmol/L Carbon Dioxide 27 (22-30) mmol/L Anion Gap 7 mmol/L BUN 17 (7-17) mg/dL Creatinine 0.88 (0.52-1.04) mg/dL Est GFR (CKD-EPI)AfAm 78 (>60 ml/min/1.73 sqM) Est GFR (CKD-EPI)NonAf 67 (>60 ml/min/1.73 sqM) Glucose 368 H (74-99) mg/dL POC Glucose (mg/dL) (70-110) mg/dL POC Glu Anvilsmith ID Plasma Lactic Acid Lloyd 2.5 H* (0.7-2.0) mmol/L Calcium 7.5 L (8.4-10.2) mg/dL Total Bilirubin 0.5 (0.2-1.3) mg/dL AST 22 (14-36) U/L ALT 12 (4-34) U/L Alkaline Phosphatase 241 H (38-126) U/L Creatine Kinase 55 (30-135) U/L Troponin I (0.000-0.034) ng/mL Total Protein 6.5 (6.3-8.2) g/dL Albumin 3.2 L (3.5-5.0) g/dL Urine Opiates Screen (NotDetected) Ur Oxycodone Screen (NotDetected) Urine Methadone Screen (NotDetected) Ur Barbiturates Screen (NotDetected) U Tricyclic Antidepress (NotDetected) Ur Phencyclidine Scrn (NotDetected) Ur Amphetamines Screen (NotDetected) U Methamphetamines Scrn (NotDetected) U Benzodiazepines Scrn (NotDetected) Urine Cocaine Screen (NotDetected) U Marijuana (THC) Screen (NotDetected) Serum Alcohol <10 mg/dL Influenza Type A (PCR) (Not Detectd) Influenza Type B (PCR) (Not Detectd) RSV (PCR) (Not Detectd) SARS-CoV-2 (PCR) (Not Detectd) Blood Type Blood Type Confirm Blood Type Recheck Bld Type Recheck Status Antibody Screen Spec Expiration Date 07/15/24 07/15/24 07/15/24 Range/Units 06:25 06:25 06:25 WBC (3.8-10.6) k/uL RBC (3.80-5.40) m/uL Hgb (11.4-16.0) gm/dL Hct (34.0-46.0) % MCV (80.0-100.0) fL MCH (25.0-35.0) pg MCHC (31.0-37.0) g/dL RDW (11.5-15.5) % Plt Count (150-450) k/uL MPV Neutrophils % % Lymphocytes % % Monocytes % % Eosinophils % % Basophils % % Neutrophils # (1.3-7.7) k/uL Lymphocytes # (1.0-4.8) k/uL Monocytes # (0-1.0) k/uL Eosinophils # (0-0.7) k/uL Basophils # (0-0.2) k/uL Hypochromasia Macrocytosis PT (10.0-12.5) sec INR (<1.2) APTT (22.0-30.0) sec Sodium (137-145) mmol/L Potassium (3.5-5.1) mmol/L Chloride (98-107) mmol/L Carbon Dioxide (22-30) mmol/L Anion Gap mmol/L BUN (7-17) mg/dL Creatinine (0.52-1.04) mg/dL Est GFR (CKD-EPI)AfAm (>60 ml/min/1.73 sqM) Est GFR (CKD-EPI)NonAf (>60 ml/min/1.73 sqM) Glucose (74-99) mg/dL POC Glucose (mg/dL) (70-110) mg/dL POC Glu Anvilsmith ID Plasma Lactic Acid Lloyd (0.7-2.0) mmol/L Calcium (8.4-10.2) mg/dL Total Bilirubin (0.2-1.3) mg/dL AST (14-36) U/L ALT (4-34) U/L Alkaline Phosphatase (38-126) U/L Creatine Kinase (30-135) U/L Troponin I 0.555 H* (0.000-0.034) ng/mL Total Protein (6.3-8.2) g/dL Albumin (3.5-5.0) g/dL Urine Opiates Screen (NotDetected) Ur Oxycodone Screen (NotDetected) Urine Methadone Screen (NotDetected) Ur Barbiturates Screen (NotDetected) U Tricyclic Antidepress (NotDetected) Ur Phencyclidine Scrn (NotDetected) Ur Amphetamines Screen (NotDetected) U Methamphetamines Scrn (NotDetected) U Benzodiazepines Scrn (NotDetected) Urine Cocaine Screen (NotDetected) U Marijuana (THC) Screen (NotDetected) Serum Alcohol mg/dL Influenza Type A (PCR) Not Detected (Not Detectd) Influenza Type B (PCR) Not Detected (Not Detectd) RSV (PCR) Not Detected (Not Detectd) SARS-CoV-2 (PCR) Not Detected (Not Detectd) Blood Type Blood Type Confirm A Positive Blood Type Recheck Bld Type Recheck Status Antibody Screen Spec Expiration Date 07/15/24 Range/Units 06:38 WBC (3.8-10.6) k/uL RBC (3.80-5.40) m/uL Hgb (11.4-16.0) gm/dL Hct (34.0-46.0) % MCV (80.0-100.0) fL MCH (25.0-35.0) pg MCHC (31.0-37.0) g/dL RDW (11.5-15.5) % Plt Count (150-450) k/uL MPV Neutrophils % % Lymphocytes % % Monocytes % % Eosinophils % % Basophils % % Neutrophils # (1.3-7.7) k/uL Lymphocytes # (1.0-4.8) k/uL Monocytes # (0-1.0) k/uL Eosinophils # (0-0.7) k/uL Basophils # (0-0.2) k/uL Hypochromasia Macrocytosis PT (10.0-12.5) sec INR (<1.2) APTT (22.0-30.0) sec Sodium (137-145) mmol/L Potassium (3.5-5.1) mmol/L Chloride (98-107) mmol/L Carbon Dioxide (22-30) mmol/L Anion Gap mmol/L BUN (7-17) mg/dL Creatinine (0.52-1.04) mg/dL Est GFR (CKD-EPI)AfAm (>60 ml/min/1.73 sqM) Est GFR (CKD-EPI)NonAf (>60 ml/min/1.73 sqM) Glucose (74-99) mg/dL POC Glucose (mg/dL) (70-110) mg/dL POC Glu Anvilsmith ID Plasma Lactic Acid Lloyd (0.7-2.0) mmol/L Calcium (8.4-10.2) mg/dL Total Bilirubin (0.2-1.3) mg/dL AST (14-36) U/L ALT (4-34) U/L Alkaline Phosphatase (38-126) U/L Creatine Kinase (30-135) U/L Troponin I (0.000-0.034) ng/mL Total Protein (6.3-8.2) g/dL Albumin (3.5-5.0) g/dL Urine Opiates Screen Not Detected (NotDetected) Ur Oxycodone Screen Detected H (NotDetected) Urine Methadone Screen Not Detected (NotDetected) Ur Barbiturates Screen Not Detected (NotDetected) U Tricyclic Antidepress Not Detected (NotDetected) Ur Phencyclidine Scrn Not Detected (NotDetected) Ur Amphetamines Screen Not Detected (NotDetected) U Methamphetamines Scrn Not Detected (NotDetected) U Benzodiazepines Scrn Detected H (NotDetected) Urine Cocaine Screen Not Detected (NotDetected) U Marijuana (THC) Screen Not Detected (NotDetected) Serum Alcohol mg/dL Influenza Type A (PCR) (Not Detectd) Influenza Type B (PCR) (Not Detectd) RSV (PCR) (Not Detectd) SARS-CoV-2 (PCR) (Not Detectd) Blood Type Blood Type Confirm Blood Type Recheck Bld Type Recheck Status Antibody Screen Spec Expiration Date Disposition Clinical Impression: Pneumonia Disposition: ADMITTED IP TO THIS [facility] Condition: Serious Referrals: Miguel Sy MD [Primary Care Provider] - 1-2 days Decision Time: 07:40
[2024-07-15] MEDS: diphenhydrAMINE 50 MG/ML 1 ML VIAL IVP STA (06:03)
[2024-07-15] MEDS: methylPREDNISolone SOD SUCCI 125 MG/2 ML VIAL IV STA (06:05)
--- NOTE | 2024-07-15 06:25 | XR ---
EXAM: XR Chest, 1 View CLINICAL HISTORY: Reason: trauma TECHNIQUE: Frontal view of the chest. COMPARISON: No relevant prior studies available. FINDINGS: Lungs: Mild pulmonary edema. Atelectasis versus consolidation of the left lower lobe. Pleural space: No evidence of pneumothorax. Small bilateral pleural effusions. Heart: Cardiac silhouette is partially obscured by the left pleural effusion and left lower lobe atelectasis/consolidation. Mediastinum: There is no mediastinal shift. Bones/joints: No acute osseous abnormality. IMPRESSION: Small bilateral pleural effusions and atelectasis versus consolidation of the left lower lobe. Mild pulmonary edema. No evidence of pneumothorax.
--- NOTE | 2024-07-15 06:28 | XR ---
EXAM: XR Pelvis, 1 or 2 Views CLINICAL HISTORY: Reason: Trauma TECHNIQUE: Frontal view of the pelvis. COMPARISON: No relevant prior studies available. FINDINGS: Bones/joints: Evaluation is limited due to patient body habitus and overlying medical wiring. No evidence of displaced femoral neck fractures or hip dislocations. Deformities seen within bilateral pubic rami, which may be associated with either acute or chronic fractures. Soft tissues: Unremarkable. IMPRESSION: Exam limited due to patient body habitus and overlying medical hardware. Bilateral pubic rami deformities either due to chronic versus acute fractures. No evidence of femoral neck fracture or hip dislocation.
[2024-07-15] MEDS: SODIUM CHLORIDE 0.9% 1,000 ML IV STA (06:30)
[2024-07-15 06:39] LABS: Basophils % (A) 0 %; Eosinophils % (A) 0 %; HCT 35.6 % (34.0-46.0); HGB 10.7 gm/dL (11.4-16.0); Hypochromasia Marked; Lymphocytes # (A) 0.8 k/uL (1.0-4.8); Lymphocytes % (A) 9 %; MCH 31.8 pg (25.0-35.0); MCV 105.9 fL (80.0-100.0); Macrocytosis Moderate; Mean Platelet Volume 8.6; Monocytes # (A) 0.3 k/uL (0-1.0); Monocytes % (A) 3 %; Neutrophils % (A) 86 %; Platelet Count 204 k/uL (150-450); RBC 3.36 m/uL (3.80-5.40); RDW 15.5 % (11.5-15.5); WBC 9.3 k/uL (3.8-10.6)
--- NOTE | 2024-07-15 06:41 | CT ---
EXAM: CT Head Without Intravenous Contrast CLINICAL HISTORY: Reason: trauma TECHNIQUE: Axial computed tomography images of the head/brain without intravenous contrast. CTDI is 45.3 mGy and DLP is 1079.2 mGy-cm. This CT exam was performed using one or more of the following dose reduction techniques: automated exposure control, adjustment of the mA and/or kV according to patient size, and/or use of iterative reconstruction technique. COMPARISON: 06/09/21 FINDINGS: Brain: No evidence of acute intracranial hemorrhage. No mass effect. No midline shift. No abnormal extra-axial fluid collections. Mild small vessel ischemic disease. Ventricles: Unremarkable. No ventriculomegaly. Bones/joints: Unremarkable. No acute fracture. Soft tissues: Unremarkable. Sinuses: Unremarkable as visualized. No acute sinusitis. Mastoid air cells: Unremarkable as visualized. No mastoid effusion. IMPRESSION: No evidence of acute intracranial abnormality. Mild small vessel ischemic disease. EXAM: CT Cervical Spine Without Intravenous Contrast CLINICAL HISTORY: Reason: trauma TECHNIQUE: Axial computed tomography images of the cervical spine without intravenous contrast. CTDI is 24.9 mGy and DLP is 599.8 mGy-cm. This CT exam was performed using one or more of the following dose reduction techniques: automated exposure control, adjustment of the mA and/or kV according to patient size, and/or use of iterative reconstruction technique. COMPARISON: No relevant prior studies available. FINDINGS: Evaluation is slightly limited by patient motion and body habitus. Vertebrae: No evidence of acute fracture. No subluxation. Vertebral body heights are preserved. Discs/spinal canal/neural foramina: No acute findings. No spinal canal stenosis. Soft tissues: Unremarkable. IMPRESSION: No evidence of acute fracture or malalignment of the cervical spine.
[2024-07-15 07:05] LABS: ALT 12 U/L (4-34); AST 22 U/L (14-36); African American GFR (CKD) 78 (>60 ml/min/1.73 sqM); Albumin 3.2 g/dL (3.5-5.0); Alcohol <10 mg/dL; Alkaline Phosphatase 241 U/L (38-126); Anion Gap 7 mmol/L; Blood Urea Nitrogen 17 mg/dL (7-17); Calcium 7.5 mg/dL (8.4-10.2); Carbon Dioxide 27 mmol/L (22-30); Chloride 100 mmol/L (98-107); Creatine Kinase 55 U/L (30-135); Glucose 368 mg/dL (74-99); Non-African American GFR(CKD) 67 (>60 ml/min/1.73 sqM); Potassium 4.9 mmol/L (3.5-5.1); Sodium 134 mmol/L (137-145); Total Bilirubin 0.5 mg/dL (0.2-1.3); Total Protein 6.5 g/dL (6.3-8.2)
--- NOTE | 2024-07-15 07:06 | CT ---
EXAM: CT Chest With Intravenous Contrast CLINICAL HISTORY: Reason: trauma TECHNIQUE: Axial computed tomography images of the chest with intravenous contrast. CTDI is 27.7 mGy and DLP is 1899 mGy-cm. This CT exam was performed using one or more of the following dose reduction techniques: automated exposure control, adjustment of the mA and/or kV according to patient size, and/or use of iterative reconstruction technique. COMPARISON: 09/24/23 FINDINGS: Lungs: Mild pulmonary edema. There is atelectasis/consolidation in the left lower lobe, with mild atelectasis also seen in the right lower lobe base, right middle lobe and lingula. Pleural space: There are small bilateral pleural effusions. No evidence of pneumothorax. Heart: Mild cardiomegaly. No pericardial effusion. Severe coronary artery calcifications. No significant pericardial effusion. Bones/joints: Unremarkable. No acute fracture. No dislocation. Soft tissues: Unremarkable. Vasculature: Unremarkable. No thoracic aortic aneurysm. Lymph nodes: Unremarkable. No enlarged lymph nodes. IMPRESSION: Small bilateral pleural effusions, with atelectasis/consolidation of the left lower lobe and mild atelectasis also seen in the right lower lobe, right middle lobe and lingula. Mild pulmonary edema. No pneumothorax. EXAM: CT Abdomen and Pelvis With Intravenous Contrast CLINICAL HISTORY: Reason: trauma TECHNIQUE: Axial computed tomography images of the abdomen and pelvis with intravenous contrast. CTDI is 28.9 mGy and DLP is 1650 mGy-cm. This CT exam was performed using one or more of the following dose reduction techniques: automated exposure control, adjustment of the mA and/or kV according to patient size, and/or use of iterative reconstruction technique. COMPARISON: No relevant prior studies available. FINDINGS: Lung bases: Unremarkable. No mass. No consolidation. ABDOMEN: Liver: Unremarkable. No mass. Gallbladder and bile ducts: The gallbladder is surgically absent. Pancreas: Unremarkable. No mass. No ductal dilation. Spleen: Unremarkable. No splenomegaly. Adrenals: Unremarkable. No mass. Kidneys and ureters: Unremarkable. No solid mass. No hydronephrosis. Stomach and bowel: No evidence of bowel obstruction. No bowel wall thickening. Well-formed stool seen within the mid to distal colon. PELVIS: Appendix: No findings to suggest acute appendicitis. Bladder: Unremarkable. No mass. Reproductive: Status post hysterectomy. ABDOMEN and PELVIS: Intraperitoneal space: Unremarkable. No free air. No significant fluid collection. Bones/joints: There is no evidence of acute fracture. Old fractures of bilateral inferior and superior pubic rami, with callus formation. There is also an old fracture of the right sacral wing. Mild degenerative changes of the sacroiliac and hip joints. Soft tissues: Unremarkable. Vasculature: Moderate atherosclerotic calcification of the abdominal aorta. No abdominal aortic aneurysm. Lymph nodes: Unremarkable. No enlarged lymph nodes. IMPRESSION: There is no evidence of acute traumatic injury to the abdomen or pelvis. Old fractures of the right sacral wing and bilateral inferior and superior pubic rami. Status post hysterectomy and cholecystectomy.
[2024-07-15 07:11] LABS: Partial Thromboplastin Time 22.6 sec (22.0-30.0); Prothrombin Time 10.6 sec (10.0-12.5)
[2024-07-15 07:26] LABS: Amphetamine Screen,Urine Not Detected (NotDetected); Cocaine Screen,Urine Not Detected (NotDetected); Opiate Screen,Urine Not Detected (NotDetected); Phencyclidine Screen,Urine Not Detected (NotDetected); Urn Cannabinoid Scrn Not Detected (NotDetected)
[2024-07-15 07:27] LABS: Barbiturate Screen,Urine Not Detected (NotDetected); Benzodiazepines Screen,Urine Detected (NotDetected); Methadone Screen, Urine Not Detected (NotDetected); Oxycodone Screen, Urine Detected (NotDetected); Tricyclic Antidepressant,Urine Not Detected (NotDetected)
[2024-07-15] MEDS ORDERED: NALOXONE 0.4 MG/ML 1 ML VIAL IV PRN (07:38)
[2024-07-15 09:10] LABS: ABG Base Excess -1.6 mmol/L; ABG HCO3 27 mmol/L (21-25); ABG Oxygen Saturation 93.1 % (94-97); ABG PCO2 65 mmHg (35-45); ABG PH 7.23 (7.35-7.45); ABG PO2 72 mmHg (83-108); ABG TCO2 29 mmol/L (19-24); Allen Test Performed? Yes
[2024-07-15] MEDS: INSULIN REGULAR 100 UNIT/ML VIAL (IV) IV ONE (10:12)
[2024-07-15] MEDS: PIPERACILLIN-TAZOBACTAM 3.375 GM in SODIUM CHLORIDE 0.9% 100 ML IVPB SCH (10:14)
[2024-07-15] MEDS: SODIUM CHLORIDE 0.9% 1,000 ML IV SCH (10:14)
--- NOTE | 2024-07-15 12:00 | P.HPIM ---
Review of Systems This is a pleasant 69 years old female with past medical history of multiple medical problems. Patient brought to the hospital after her found her sick and dizzy restroom. Patient currently on BiPAP, cannot provide much information and it was obtained with the help of the at bedside. As per patient was not feeling weak for more than a week, she is not eating well, she was using a walker. She has been complaining from cough and increasing breathing difficulty he went to see her PCP Dr. Sy who gave her a shot of antibiotics for bronchitis and ear infection. As per yesterday 8 PM she was fine about 3 to 4 AM he heard her asking for help while in the restroom where she was lying confused and he called 911. As per also she has been complaining of from central chest pain through the week. Currently when I asked the patient she denies any chest pain or abdominal pain. She follows commands but she looks very tired. Also she has been having more cough and phlegm lately. Cannot fully clear per . Patient is non-smoker, no alcohol no illicit drugs. Patient herself denies any abdominal pain or tenderness, no urinary symptoms. She is somewhat hypothermic with temperature 96.9. She is tachycardic 110, tachypneic at 22-24. Blood pressure 155/91 She is on BiPAP with FiO2 of 50% with oxygen saturation 92%. pH 7.2, pCO2 is high 65 and pO2 is low 72 Labs showing WBC 9.3, hemoglobin 10.7. Platelet count is normal. INR is unremarkable. Elevated troponin 0.55 proBNP is elevated 2860. Liver enzymes are unremarkable. Albumin 3.2 Urine drug screen is positive for oxycodone and benzodiazepine, serum alcohol less than 10 Influenza A and type B, RSV, SARS (coronavirus) are un CT of the abdomen and pelvis and chest With contrast showing no acute abnormality. Mild pulmonary edema. There is atelectasis/consolidation in the left lower lobe with mild atelectasis also seen in the right lower lobe base, right middle lobe and lingula Echocardiogram in 2019 showed ejection fraction 40 to 45% EKG showing sinus tachycardia [address]-T changes CT of the head and neck is negative for acute process Pelvic x-ray is negative, chest x-ray reviewed by myself showing bilateral lower lobe infiltrate slightly worse than before Past Medical History Past Medical History: Blood Disorder, Cancer, Diabetes Mellitus, Deep Vein Throm bosis (DVT), GERD/Reflux, Hyperlipidemia, Hypertension, Myocardial Infarction ([place]), Neurologic Disorder, Osteoarthritis (OA), Pulmonary Embolus (PE), Thyroid Disorder Additional Past Medical History / Comment(s): Factor 5 leiden, DVT L leg, PE L lung, MIs x 5, palpitations, IDDM type II, neuropathy bilateral legs/feet, lymphedema L leg, charcot syndrome L foot, chronic low back pain, bilateral sciatica,hx bronchitis, anemia, hypothyroid, hx UTI, IBS, sinus problems, wor sening tremors, "stomach shivering inside" plans to f/u with pcp. skin cancer removal. hx of pneumonia long ago, pelvic fx Last Myocardial Infarction Date:: January 2020 History of Any Multi-Drug Resistant Organisms: VRE Date of last positivie culture/infection: 08/24/23 MDRO Source:: Urine Past Surgical History: Appendectomy, Cholecystectomy, Heart Catheterization With Stent, Hernia Repair, Hysterectomy, Tonsillectomy Additional Past Surgical History / Comment(s): Bilateral salpingectomy, bilateral oophorectomy, abdominal hernia surgeries, L foot fracture, bilateral cataract removals, epidural injections with last on 01/20/20 lumbar, LAST PROCED URE 04/19/21 Past Anesthesia/Blood Transfusion Reactions: No Reported Reaction Additional Past Anesthesia/Blood Transfusion Reaction / Comment(s): Pt has received blood in past without reaction. Date of Last Stent Placement:: January 2020 Past Psychological History: Anxiety, Depression, Panic Disorder Smoking Status: Former smoker - Past Family History Mother Family Medical History: COPD Additional Family Medical History / Comment(s): Mother was a smoker. Father Family Medical History: Cancer Additional Family Medical History / Comment(s): Lung cancer. Father was a smoker. Son(s) Family Medical History: Deep Vein Thrombosis (DVT) Medications and Allergies Home Medications Medication Instructions Recorded Confirmed Type Clopidogrel [Plavix] 75 mg PO DAILY 07/07/19 11/26/23 History traZODone HCL [Desyrel] 200 mg PO HS 07/07/19 11/26/23 History Ezetimibe [Zetia] 10 mg PO DAILY 30 Days #30 tab 01/30/20 11/26/23 Rx Insulin Glargine,Hum.rec.anlog 50 - 60 units SQ BID 06/09/21 11/26/23 History [Lantus Solostar Pen] Levothyroxine Sodium [Synthroid] 300 mcg PO DAILY 08/30/21 11/26/23 History Metoclopramide [Reglan] 5 mg PO QID PRN 09/10/21 11/26/23 History Primidone [Mysoline] 125 mg PO BID #60 tab 06/22/23 11/26/23 Rx Aspirin EC [Ecotrin Low Dose] 81 mg PO DAILY 09/21/23 11/26/23 History Insulin Lispro [humaLOG Kwikpen] See Protocol SQ AC-TID 09/21/23 11/26/23 History Metoprolol Succinate (ER) [Toprol 25 mg PO DAILY 09/21/23 11/26/23 History XL] Hydrocortisone Suppository 25 mg RECTAL DAILY 5 Days #5 09/26/23 11/26/23 Rx [Anusol-Hc] suppositor Sennosides [Senokot] 8.6 mg PO BID #30 tab 09/26/23 11/26/23 Rx Furosemide [Lasix] 20 mg PO DAILY 11/26/23 11/26/23 History Nystatin [Nystop] 1 applic TOPICAL BID 11/26/23 11/26/23 History ALPRAZolam [Xanax] 1.5 mg PO 1400,2200 #4 tab 11/30/23 Rx ALPRAZolam [Xanax] 2 mg PO 0900 #2 tab 11/30/23 Rx Heparin Sodium,Porcine (1 ml) 5,000 unit SQ Q8HR each 11/30/23 Rx [Heparin Sodium] Lidocaine 4% Patch 1 patch TOPICAL DAILY patch 11/30/23 Rx oxyCODONE HCL [OxyIR] 10 mg PO TID #6 tab 11/30/23 Rx tiZANidine [Zanaflex] 4 mg PO TID PRN tab 11/30/23 Rx Allergies Allergy/AdvReac Type Severity Reaction Status Date / Time Iodinated Contrast Media Allergy Rash/Hives Verified 07/15/24 05:48 Iodine and Iodide Containing Allergy Rash/Hives Verified 07/15/24 05:48 Produc liraglutide [From Saxenda] AdvReac Unknown Nausea & Verified 07/15/24 05:48 Vomiting NSAIDS (Non-Steroidal AdvReac Unknown Nausea & Verified 07/15/24 05:48 Anti-Inflamma Vomiting aspirin AdvReac Nausea & Verified 07/15/24 05:48 Vomiting with high doses azithromycin AdvReac Vomiting Verified 07/15/24 05:48 naproxen [From Naprosyn] AdvReac Nausea & Verified 07/15/24 05:48 Vomiting Physical Exam Vitals: Vital Signs Temp Pulse Resp BP Pulse Ox FiO2 07/15/24 10:47 110 H 22 155/91 92 L 07/15/24 09:26 50 07/15/24 09:00 107 H 24 134/92 94 L 07/15/24 05:56 50 07/15/24 05:44 96.9 F L 112 H 12 124/68 98 Intake and Output 07/14/24 07/15/24 07/15/24 22:59 06:59 14:59 Other: Weight 126.598 kg -GENERAL: The patient is alert and oriented x3, not in any acute distress. Obese HEENT: Pupils are round and equally reacting to light. EOMI. No scleral icterus. No conjunctival pallor. Normocephalic, atraumatic. No pharyngeal erythema. No thyromegaly. CARDIOVASCULAR: S1 and S2 present. No murmurs, rubs, or gallops. -PULMONARY: Chest is clear to auscultation, no wheezing , Bilateral basal crepitations ABDOMEN: Soft, nontender, nondistended, normoactive bowel sounds. No palpable organomegaly. MUSCULOSKELETAL: No joint swelling or deformity. EXTREMITIES: No cyanosis, clubbing, or pedal edema. NEUROLOGICAL: Gross neurological examination did not reveal any focal deficits. SKIN: No rashes. no petechiae. Results CBC & Chem 7: 07/15/24 06:25 07/15/24 06:25 Labs: Abnormal Lab Results - Last 24 Hours (Table) 07/15/24 07/15/24 07/15/24 Range/Units 05:48 06:25 06:25 RBC 3.36 L (3.80-5.40) m/uL Hgb 10.7 L (11.4-16.0) gm/dL MCV 105.9 H (80.0-100.0) fL MCHC 30.0 L (31.0-37.0) g/dL Neutrophils # 8.0 H (1.3-7.7) k/uL Lymphocytes # 0.8 L (1.0-4.8) k/uL ABG pH (7.35-7.45) ABG pCO2 (35-45) mmHg ABG pO2 (83-108) mmHg ABG HCO3 (21-25) mmol/L ABG Total CO2 (19-24) mmol/L ABG O2 Saturation (94-97) % Hemoglobin (11.4-16.0) gm/dL Sodium 134 L (137-145) mmol/L Glucose 368 H (74-99) mg/dL POC Glucose (mg/dL) 378 H (70-110) mg/dL Plasma Lactic Acid Lloyd (0.7-2.0) mmol/L Calcium 7.5 L (8.4-10.2) mg/dL Alkaline Phosphatase 241 H (38-126) U/L Troponin I (0.000-0.034) ng/mL Albumin 3.2 L (3.5-5.0) g/dL Ur Oxycodone Screen (NotDetected) U Benzodiazepines Scrn (NotDetected) 07/15/24 07/15/24 07/15/24 Range/Units 06:25 06:25 06:38 RBC (3.80-5.40) m/uL Hgb (11.4-16.0) gm/dL MCV (80.0-100.0) fL MCHC (31.0-37.0) g/dL Neutrophils # (1.3-7.7) k/uL Lymphocytes # (1.0-4.8) k/uL ABG pH (7.35-7.45) ABG pCO2 (35-45) mmHg ABG pO2 (83-108) mmHg ABG HCO3 (21-25) mmol/L ABG Total CO2 (19-24) mmol/L ABG O2 Saturation (94-97) % Hemoglobin (11.4-16.0) gm/dL Sodium (137-145) mmol/L Glucose (74-99) mg/dL POC Glucose (mg/dL) (70-110) mg/dL Plasma Lactic Acid Lloyd 2.5 H* (0.7-2.0) mmol/L Calcium (8.4-10.2) mg/dL Alkaline Phosphatase (38-126) U/L Troponin I 0.555 H* (0.000-0.034) ng/mL Albumin (3.5-5.0) g/dL Ur Oxycodone Screen Detected H (NotDetected) U Benzodiazepines Scrn Detected H (NotDetected) 07/15/24 Range/Units 09:03 RBC (3.80-5.40) m/uL Hgb (11.4-16.0) gm/dL MCV (80.0-100.0) fL MCHC (31.0-37.0) g/dL Neutrophils # (1.3-7.7) k/uL Lymphocytes # (1.0-4.8) k/uL ABG pH 7.23 L (7.35-7.45) ABG pCO2 65 H (35-45) mmHg ABG pO2 72 L (83-108) mmHg ABG HCO3 27 H (21-25) mmol/L ABG Total CO2 29 H (19-24) mmol/L ABG O2 Saturation 93.1 L (94-97) % Hemoglobin 11.3 L (11.4-16.0) gm/dL Sodium (137-145) mmol/L Glucose (74-99) mg/dL POC Glucose (mg/dL) (70-110) mg/dL Plasma Lactic Acid Lloyd (0.7-2.0) mmol/L Calcium (8.4-10.2) mg/dL Alkaline Phosphatase (38-126) U/L Troponin I (0.000-0.034) ng/mL Albumin (3.5-5.0) g/dL Ur Oxycodone Screen (NotDetected) U Benzodiazepines Scrn (NotDetected) Assessment and Plan Assessment: Acute hypoxic respiratory failure bilateral lower lobe pneumonia Elevated troponin Pulmonary edema, acute CHF, most likely systolic Obesity with BMI of 46.4. Diabetes mellitus Hypertension Hyperlipidemia History of osteoarthritis Hypothyroidism History of pulmonary embolism Plan: Continue with Zosyn Continue the bronchodilator Oxygen therapy, BiPAP as needed Pulmonary consult Check echocardiogram Cardiology team consult Labs and medication were reviewed.. Continue same treatment. Continue with symptomatic treatment. Resume home medication. Monitor lytes and vitals. DVT and GI prophylaxis. Further recommendations depends on the clinical course of the patient DVT prophylaxis: Subcutaneous heparin GI Prophylaxis: Pepcid PT/OT: Pending, deferred Prognosis is guarded bipolar disorder
--- NOTE | 2024-07-15 14:44 | P.CRDCN ---
History of Present Illness History of present illness: HISTORY OF PRESENT ILLNESS: This is a 69-year-old female with a past medical history significant for coronary artery disease with previous stenting, hypertension, hyperlipidemia, diabetes, and obesity. Patient follows in the office with Dr. Babcock. We have been asked to see the patient in consultation for elevated troponin. Patient examined at the bedside in the ER. Patient presented to the hospital with a chief complaint of SOB. Patient has been feeling short of breath for the past few days. She is currently on a BiPAP. Her family is at the bedside. Family states that patient has also been complaining of chest pain on and off for the past week. Apparently she has not been taking her Lasix on an outpatient basis. There is also some question regarding if she was compliant with her Plavix. The patient continues to report shortness of breath although states that is improving on the BiPAP. She denies any chest pain or pressure at this time. DIAGNOSTICS: - EKG reveals sinus tachycardia with no signs of acute ischemia - Chest xray small bilateral pleural effusions and atelectasis versus consolidation of left lower lobe. Mild pulmonary edema. No evidence of pneumothorax. - Laboratory data: WBC 9.3. Hemoglobin 10.7. Platelet count 204. Sodium 134. Potassium 4.9. BUN 17. Creatinine 0.88. proBNP 2860. Troponin 0.555. 2.960. - Current home cardiac medications include Plavix 75 mg daily, Zetia 10 mg daily - Most recent echocardiogram obtained in October 2022 revealed ejection fraction 55%, mild TR and mild MR - Cardiac catheterization history: February 2020 with stenting of the LAD. Patient was also found to have moderate disease of the mid RCA. REVIEW OF SYSTEMS: At the time of my exam: CONSTITUTIONAL: Denies fever or chills. HEENT: Denies blurred vision, vision changes, or eye pain. Denies hemoptysis CARDIOVASCULAR: Denies chest pain. Denies orthopnea. Denies PND. Denies palpitations RESPIRATORY: Denies shortness of breath. GASTROINTESTINAL: Denies abdominal pain. Denies nausea or vomiting. HEMATOLOGIC: Denies bleeding disorders. GENITOURINARY: Denies any blood in urine. SKIN: Denies pruitis. Denies rash. PHYSICAL EXAM: VITAL SIGNS: Reviewed. GENERAL: Well-developed in no acute distress. HEENT: Head is normocephalic. Pupils are equal, round. Sclerae anicteric. Mucous membranes of the mouth are moist. Neck supple. No JVD or thyromegaly LUNGS: Respirations even and unlabored. Lungs with decreased breath sounds bilaterally HEART: Tachycardic. Regular rate and rhythm. S1 and S2 heard. ABDOMEN: Soft. Nondistended. Nontender. EXTREMITIES: Normal range of motion. No clubbing or cyanosis. Peripheral pulses intact. Bilateral lower extremity edema NEUROLOGIC: Awake and alert. Oriented x 3. ASSESSMENT: Pneumonia Acute hypoxic respiratory failure Non-STEMI Acute on chronic heart failure with preserved EF, 55%, repeat echo pending Coronary artery disease with previous stenting of the LAD Known moderate disease of the RCA Hypertension Hyperlipidemia Diabetes with hyperglycemia Obesity Medication noncompliance PLAN: Obtain 2D echo to assess cardiac structure and function Check hemoglobin A1c and lipid panel Begin IV heparin Resume Plavix 75 mg daily Add aspirin 81 mg daily Add atorvastatin 80 mg at night Add metoprolol tartrate 50 mg twice a day Add Nitropaste Begin IV Lasix 40 mg every 12 hours Daily weights, accurate intake and output, and monitoring of kidney function Cardiac catheterization when patient is medically stable Further recommendations pending patient course Nurse practitioner note has been reviewed by physician. Signing provider agrees with the documented findings, assessment, and plan of care documented by OUTBOARD MOTORBOAT OPERATOR as a scribe. Past Medical History Past Medical History: Blood Disorder, Cancer, Diabetes Mellitus, Deep Vein Thrombosis (DVT), GERD/Reflux, Hyperlipidemia, Hypertension, Myocardial Infarction ([place]), Neurologic Disorder, Osteoarthritis (OA), Pulmonary Embolus (PE), Thyroid Disorder Additional Past Medical History / Comment(s): Factor 5 leiden, DVT L leg, PE L lung, MIs x 5, palpitations, IDDM type II, neuropathy bilateral legs/feet, lymphedema L leg, charcot syndrome L foot, chronic low back pain, bilateral sciatica,hx bronchitis, anemia, hypothyroid, hx UTI, IBS, sinus problems, worsening tremors, "stomach shivering inside" plans to f/u with pcp. skin cancer removal. hx of pneumonia long ago, pelvic fx Last Myocardial Infarction Date:: January 2020 History of Any Multi-Drug Resistant Organisms: VRE Date of last positivie culture/infection: 08/24/23 MDRO Source:: Urine Past Surgical History: Appendectomy, Cholecystectomy, Heart Catheterization With Stent, Hernia Repair, Hysterectomy, Tonsillectomy Additional Past Surgical History / Comment(s): Bilateral salpingectomy, bilateral oophorectomy, abdominal hernia surgeries, L foot fracture, bilateral cataract removals, epidural injections with last on 01/20/20 lumbar, LAST PROCEDURE 04/19/21 Past Anesthesia/Blood Transfusion Reactions: No Reported Reaction Additional Past Anesthesia/Blood Transfusion Reaction / Comment(s): Pt has received blood in past without reaction. Date of Last Stent Placement:: January 2020 Past Psychological History: Anxiety, Depression, Panic Disorder Smoking Status: Former smoker - Past Family History Mother Family Medical History: COPD Additional Family Medical History / Comment(s): Mother was a smoker. Father Family Medical History: Cancer Additional Family Medical History / Comment(s): Lung cancer. Father was a smoker. Son(s) Family Medical History: Deep Vein Thrombosis (DVT) Medications and Allergies Home Medications Medication Instructions Recorded Confirmed Type Clopidogrel [Plavix] 75 mg PO DAILY 07/07/19 07/15/24 History traZODone HCL [Desyrel] 200 mg PO HS 07/07/19 07/15/24 History Ezetimibe [Zetia] 10 mg PO DAILY 30 Days #30 tab 01/30/20 07/15/24 Rx Insulin Glargine,Hum.rec.anlog 60 units SQ BID 06/09/21 07/15/24 History [Lantus Solostar Pen] Levothyroxine Sodium [Synthroid] 300 mcg PO DAILY 08/30/21 07/15/24 History Insulin Lispro [humaLOG Kwikpen] See Protocol SQ AC-TID 09/21/23 07/15/24 Hist ory ALPRAZolam [Xanax] 2 mg PO TID 07/15/24 07/15/24 History DULoxetine HCL [Cymbalta] 60 mg PO BID 07/15/24 07/15/24 History oxyCODONE HCL [Oxycodone HCl] 10 mg PO TID PRN 07/15/24 07/15/24 History tiZANidine [Zanaflex] 2 mg PO HS 07/15/24 07/15/24 History Allergies Allergy/AdvReac Type Severity Reaction Status Date / Time Iodinated Contrast Media Allergy Rash/Hives Verified 07/15/24 12:22 Iodine and Iodide Containing Allergy Rash/Hives Verified 07/15/24 12:22 Produc liraglutide [From Saxenda] AdvReac Unknown Nausea & Verified 07/15/24 12:22 Vomiting NSAIDS (Non-Steroidal AdvReac Unknown Nausea & Verified 07/15/24 12:22 Anti-Inflamma Vomiting aspirin AdvReac Nausea & Verified 07/15/24 12:22 Vomiting with high doses azithromycin AdvReac Vomiting Verified 07/15/24 12:22 naproxen [From Naprosyn] AdvReac Nausea & Verified 07/15/24 12:22 Vomiting Physical Exam Vitals: Vital Signs Temp Pulse Resp BP Pulse Ox FiO2 07/15/24 13:42 107 H 26 H 164/83 92 L 07/15/24 11:43 50 07/15/24 10:47 110 H 22 155/91 92 L 07/15/24 09:26 50 07/15/24 09:00 107 H 24 134/92 94 L 07/15/24 05:56 50 07/15/24 05:44 96.9 F L 112 H 12 124/68 98 Intake and Output 07/14/24 07/15/24 07/15/24 22:59 06:59 14:59 Other: Weight 126.598 kg Results 07/15/24 06:25 07/15/24 06:25 Cardiac Enzymes 07/15/24 07/15/24 07/15/24 Range/Units 06:25 06:25 12:10 AST 22 (14-36) U/L Troponin I 0.555 H* 2.960 H* (0.000-0.034) ng/mL Coagulation 07/15/24 Range/Units 06:25 PT 10.6 (10.0-12.5) sec APTT 22.6 (22.0-30.0) sec CBC 07/15/24 Range/Units 06:25 WBC 9.3 (3.8-10.6) k/uL RBC 3.36 L (3.80-5.40) m/uL Hgb 10.7 L (11.4-16.0) gm/dL Hct 35.6 (34.0-46.0) % Plt Count 204 (150-450) k/uL Comprehensive Metabolic Panel 07/15/24 Range/Units 06:25 Sodium 134 L (137-145) mmol/L Potassium 4.9 (3.5-5.1) mmol/L Chloride 100 (98-107) mmol/L Carbon Dioxide 27 (22-30) mmol/L BUN 17 (7-17) mg/dL Creatinine 0.88 (0.52-1.04) mg/dL Glucose 368 H (74-99) mg/dL Calcium 7.5 L (8.4-10.2) mg/dL AST 22 (14-36) U/L ALT 12 (4-34) U/L Alkaline Phosphatase 241 H (38-126) U/L Total Protein 6.5 (6.3-8.2) g/dL Albumin 3.2 L (3.5-5.0) g/dL Current Medications Generic Name Dose Route Start Last Admin Trade Name Freq PRN Reason Stop Dose Admin Acetaminophen 650 mg 07/15/24 07:38 Acetaminophen Tab 325 Mg Tab PO Q6HR PRN Mild Pain or Fever > 100.5 Piperacillin Sod/Tazobactam 100 mls @ 25 mls/hr 07/15/24 08:00 07/15/24 10:14 Sod 3.375 gm/ Sodium Chloride IVPB 25 mls/hr Q8HR FLO Administration Protocol Sodium Chloride 1,000 mls @ 75 mls/hr 07/15/24 07:45 07/15/24 10:14 Saline 0.9% IV 75 mls/hr .[id number] FLO Administration Naloxone HCl 0.2 mg 07/15/24 07:38 Naloxone 0.4 Mg/Ml 1 Ml Vial IV Q2M PRN Opioid Reversal Ondansetron HCl 4 mg 07/15/24 07:38 Ondansetron 4 Mg/2 Ml Vial IVP Q8HR PRN Nausea And Vomiting Intake and Output 07/14/24 07/15/24 07/15/24 22:59 06:59 14:59 Other: Weight 126.598 kg 07/15/24 06:25 07/15/24 06:25
[2024-07-15] MEDS: FUROSEMIDE 10 MG/ML 4 ML VIAL IV SCH (15:05)
[2024-07-15] MEDS: HEPARIN SODIUM 1,000 UN/ML (10ML VL) IV ONE (15:09)
--- NOTE | 2024-07-15 15:11 | P.CNPUL ---
History of Present Illness Consult date: 07/15/24 Requesting physician: Jonathan Mooney Reason for consult: dyspnea, hypoxemia Chief complaint: Fall at home History of present illness: This is a 69-year-old female patient with multiple comorbidities including DVT, diabetes mellitus, hypertension, myocardial infarction, congestive heart failure, hypertension, factor V, former smoker. The patient was found down in her bathroom at home earlier this morning. EMS was called and she was blue on arrival and with a 50% O2 saturation. They placed her on nonrebreather and transferred her here. She was then placed on BiPAP 14/6 and 50% FiO2. Arterial blood gases revealed a PaO2 of 72, CO2 of 65 and a pH of 7.23 on 50%. Urine drug screen was positive for oxycodone and benzodiazepines. Troponin initially 0.55 then elevated at 2.96. White count 9.3. Hemoglobin 10.7. Platelets 204. Sodium 134. Potassium 4.9. Bicarb 27. BUN 17. Creatinine 0.88. Glucose 368. proBNP 2860. Viral screen negative. Chest x-ray revealed small bilateral pleural effusion and atelectasis. Mild pulmonary edema. No evidence of pneumothorax. CT scan of the head revealed no acute intracranial abnormalities. No cervical fractures. CT scan of the chest revealed small bilateral pleural effusions with atelectasis. Mild pulmonary edema. No evidence of acute trauma injury to the abdomen or pelvis. She is seen today in consultation in the emergency department. She remains on BiPAP. She is laying on her left side on the stretcher. She is awake and alert. Family is at the bedside. Review of Systems REVIEW OF SYSTEMS: CONSTITUTIONAL: Positive for fall. Denies any recent significant weight loss or weight gain. EYES: Denies change in vision. EARS, NOSE, MOUTH, THROAT: Denies headaches, denies sore throat. CARDIOVASCULAR: Denies chest pain, palpitations or syncopal episodes. RESPIRATORY: Positive for shortness of breath, no cough, congestion or hemoptysis. GASTROINTESTINAL: Denies change in appetite, denies abdominal pain GENITOURINARY: Denies hematuria, denies infections. MUSKULOSKELETAL: Denies pain, denies swelling. INTEGUMENTARY: Denies rash, denies eczema. NEUROLOGICAL: Denies recent memory loss, no recent seizure activity. PSYCHIATRIC: Denies anxiety, denies depression. HEMATOLOGIC/LYMPHATIC: Denies anemia, denies enlarged lymph nodes. Past Medical History Past Medical History: Blood Disorder, Cancer, Diabetes Mellitus, Deep Vein Thrombosis (DVT), GERD/Reflux, Hyperlipidemia, Hypertension, Myocardial Infarction (MO), Neurologic Disorder, Osteoarthritis (OA), Pulmonary Embolus (PE), Thyroid Disorder Additional Past Medical History / Comment(s): Factor 5 leiden, DVT L leg, PE L lung, MIs x 5, palpitations, IDDM type II, neuropathy bilateral legs/feet, lymphedema L leg, charcot syndrome L foot, chronic low back pain, bilateral sciatica,hx bronchitis, anemia, hypothyroid, hx UTI, IBS, sinus problems, worsening tremors, "stomach shivering inside" plans to f/u with pcp. skin cancer removal. hx of pneumonia long ago, pelvic fx Last Myocardial Infarction Date:: January 2020 History of Any Multi-Drug Resistant Organisms: VRE Date of last positivie culture/infection: 08/24/23 MDRO Source:: Urine Past Surgical History: Appendectomy, Cholecystectomy, Heart Catheterization With Stent, Hernia Repair, Hysterectomy, Tonsillectomy Additional Past Surgical History / Comment(s): Bilateral salpingectomy, bilateral oophorectomy, abdominal hernia surgeries, L foot fracture, bilateral cataract removals, epidural injections with last on 01/20/20 lumbar, LAST PROCEDURE 04/19/21 Past Anesthesia/Blood Transfusion Reactions: No Reported Reaction Additional Past Anesthesia/Blood Transfusion Reaction / Comment(s): Pt has received blood in past without reaction. Date of Last Stent Placement:: January 2020 Past Psychological History: Anxiety, Depression, Panic Disorder Smoking Status: Former smoker - Past Family History Mother Family Medical History: COPD Additional Family Medical History / Comment(s): Mother was a smoker. Father Family Medical History: Cancer Additional Family Medical History / Comment(s): Lung cancer. Father was a smoker. Son(s) Family Medical History: Deep Vein Thrombosis (DVT) Medications and Allergies Home Medications Medication Instructions Recorded Confirmed Type Clopidogrel [Plavix] 75 mg PO DAILY 07/07/19 07/15/24 History traZODone HCL [Desyrel] 200 mg PO HS 07/07/19 07/15/24 History Ezetimibe [Zetia] 10 mg PO DAILY 30 Days #30 tab 01/30/20 07/15/24 Rx Insulin Glargine,Hum.rec.anlog 60 units SQ BID 06/09/21 07/15/24 History [Lantus Solostar Pen] Levothyroxine Sodium [Synthroid] 300 mcg PO DAILY 08/30/21 07/15/24 History Insulin Lispro [humaLOG Kwikpen] See Protocol SQ AC-TID 09/21/23 07/15/24 History ALPRAZolam [Xanax] 2 mg PO TID 07/15/24 07/15/24 History DULoxetine HCL [Cymbalta] 60 mg PO BID 07/15/24 07/15/24 History oxyCODONE HCL [Oxycodone HCl] 10 mg PO TID PRN 07/15/24 07/15/24 History tiZANidine [Zanaflex] 2 mg PO HS 07/15/24 07/15/24 History Allergies Allergy/AdvReac Type Severity Reaction Status Date / Time Iodinated Contrast Media Allergy Rash/Hives Verified 07/15/24 12:22 Iodine and Iodide Containing Allergy Rash/Hives Verified 07/15/24 12:22 Produc liraglutide [From Saxenda] AdvReac Unknown Nausea & Verified 07/15/24 12:22 Vomiting NSAIDS (Non-Steroidal AdvReac Unknown Nausea & Verified 07/15/24 12:22 Anti-Inflamma Vomiting aspirin AdvReac Nausea & Verified 07/15/24 12:22 Vomiting with high doses azithromycin AdvReac Vomiting Verified 07/15/24 12:22 naproxen [From Naprosyn] AdvReac Nausea & Verified 07/15/24 12:22 Vomiting Physical Exam Vitals: Vital Signs Temp Pulse Resp BP Pulse Ox FiO2 07/15/24 13:42 107 H 26 H 164/83 92 L 07/15/24 11:43 50 07/15/24 10:47 110 H 22 155/91 92 L 07/15/24 09:26 50 07/15/24 09:00 107 H 24 134/92 94 L 07/15/24 05:56 50 07/15/24 05:44 96.9 F L 112 H 12 124/68 98 Intake and Output 07/14/24 07/15/24 07/15/24 22:59 06:59 14:59 Other: Weight 126.598 kg GENERAL EXAM: Alert, 69-year-old female, on BiPAP, fairly comfortable in no apparent distress. HEAD: Normocephalic. EYES: Normal reaction of pupils, equal size. NOSE: Clear with pink turbinates. THROAT: No erythema or exudates. NECK: No masses, no JVD. CHEST: No chest wall deformity. LUNGS: Equal air entry with bibasilar crackles. CVS: S1 and S2 normal with no audible murmur, regular rhythm. ABDOMEN: No hepatosplenomegaly, normal bowel sounds, no guarding or rigidity. SPINE: No scoliosis or deformity SKIN: No rashes CENTRAL NERVOUS SYSTEM: No focal deficits, tone is normal in all 4 extremities. EXTREMITIES: There is no peripheral edema. No clubbing, no cyanosis. Peripheral pulses are intact. Results - Laboratory Findings CBC and BMP: 07/15/24 06:25 07/15/24 06:25 ABG ABG pH 7.23 (7.35-7.45) L 07/15/24 09:03 ABG pCO2 65 mmHg (35-45) H 07/15/24 09:03 ABG pO2 72 mmHg (83-108) L 07/15/24 09:03 ABG O2 Saturation 93.1 % (94-97) L 07/15/24 09:03 PT/INR, D-dimer PT 10.6 sec (10.0-12.5) 07/15/24 06:25 INR 1.0 (<1.2) 07/15/24 06:25 Abnormal lab findings: Abnormal Labs 07/15/24 07/15/24 07/15/24 05:48 06:25 06:25 RBC 3.36 L Hgb 10.7 L MCV 105.9 H MCHC 30.0 L Neutrophils # 8.0 H Lymphocytes # 0.8 L ABG pH ABG pCO2 ABG pO2 ABG HCO3 ABG Total CO2 ABG O2 Saturation Hemoglobin Sodium 134 L Glucose 368 H POC Glucose (mg/dL) 378 H Plasma Lactic Acid Lloyd Calcium 7.5 L Alkaline Phosphatase 241 H Troponin I Albumin 3.2 L Ur Oxycodone Screen U Benzodiazepines Scrn 07/15/24 07/15/24 07/15/24 06:25 06:25 06:38 RBC Hgb MCV MCHC Neutrophils # Lymphocytes # ABG pH ABG pCO2 ABG pO2 ABG HCO3 ABG Total CO2 ABG O2 Saturation Hemoglobin Sodium Glucose POC Glucose (mg/dL) Plasma Lactic Acid Lloyd 2.5 H* Calcium Alkaline Phosphatase Troponin I 0.555 H* Albumin Ur Oxycodone Screen Detected H U Benzodiazepines Scrn Detected H 07/15/24 07/15/24 09:03 12:10 RBC Hgb MCV MCHC Neutrophils # Lymphocytes # ABG pH 7.23 L ABG pCO2 65 H ABG pO2 72 L ABG HCO3 27 H ABG Total CO2 29 H ABG O2 Saturation 93.1 L Hemoglobin 11.3 L Sodium Glucose POC Glucose (mg/dL) Plasma Lactic Acid Lloyd Calcium Alkaline Phosphatase Troponin I 2.960 H* Albumin Ur Oxycodone Screen U Benzodiazepines Scrn - Diagnostic Findings Chest x-ray: image reviewed CT scan - chest: image reviewed Assessment and Plan Assessment: Fall at home in her bathroom, unwitnessed. EMS was called and found the patient hypoxemic with O2 saturation in the 50s. Currently on BiPAP Acute hypoxemic respiratory failure suspect secondary to congestive heart failure and possible underlying pneumonia Non-ST elevation myocardial infarction History of previous myocardial infarction Coronary artery disease with previous stent placement Hypertension Hyperlipidemia Factor V Le[place] with previous PE/DVT Diabetes mellitus, type II Former smoker Plan: The patient was seen and evaluated All imaging, labs and medications reviewed Check a Procalcitonin Echocardiogram pending Continue heparin drip Continue antibiotics for now Continue IV diuretics Titrate down the FiO2 as tolerated Transition to nasal cannula as tolerated We will continue to follow and make further recommendations based on her clinical status I have personally seen and examined the patient, performed the documentation and the assessment and plan as written. Number of minutes spent on the visit: 20 Dictation was produced using [employer] dictation software. Please excuse any grammatical, word or spelling errors.
[2024-07-15 15:29] LABS: Basophils % (A) 0 %; Eosinophils % (A) 0 %; HCT 39.4 % (34.0-46.0); HGB 11.8 gm/dL (11.4-16.0); Hypochromasia Marked; Lymphocytes # (A) 0.8 k/uL (1.0-4.8); Lymphocytes % (A) 7 %; MCH 31.9 pg (25.0-35.0); MCHC 29.9 g/dL (31.0-37.0); MCV 106.5 fL (80.0-100.0); Macrocytosis Moderate; Mean Platelet Volume 8.7; Monocytes # (A) 0.2 k/uL (0-1.0); Monocytes % (A) 2 %; Neutrophils # (A) 10.6 k/uL (1.3-7.7); Neutrophils % (A) 91 %; Platelet Count 198 k/uL (150-450); RBC 3.69 m/uL (3.80-5.40); RDW 15.5 % (11.5-15.5); WBC 11.7 k/uL (3.8-10.6)
[2024-07-15 15:30] LABS: Partial Thromboplastin Time 22.1 sec (22.0-30.0); Prothrombin Time 10.8 sec (10.0-12.5)
[2024-07-15] MEDS: METOPROLOL TARTRATE 50 MG TAB PO SCH (16:52)
[2024-07-15] MEDS: NITROGLYCERIN OINT 1 INCH/GM PACKET TOPICAL SCH (16:59)
[2024-07-15] MEDS: HEPARIN SOD,PORK IN 0.45% NACL 25,000 UNIT in 0.45% NACL 1 250ML.BAG IV SCH (17:50)
[2024-07-15 21:08] LABS: Chol/HDL Ratio 3.22 Ratio; LDL Cholesterol,Calculated 118.3 mg/dL (0.0-131.0)
[2024-07-15] MEDS: ATORVASTATIN 80 MG TAB PO SCH (22:38)
[2024-07-15] MEDS: HEPARIN SODIUM 1,000 UN/ML (10ML VL) IV PRN (23:30)
[2024-07-15 23:50] LABS: Glucose,Whole Blood 545 mg/dL (70-110)
[2024-07-15] MEDS ORDERED: DEXTROSE 50% SYRINGE 50 ML IVP PRN ×2 (23:51)
[2024-07-16] MEDS: INSULIN ASPART (NovoLOG) 100 UNIT/ML VIAL SQ SCH (00:33)
[2024-07-16] MEDS: INSULIN REGULAR 100 UNIT/ML VIAL (IV) IV ONE (00:41)
[2024-07-16 01:32] LABS: Glucose,Whole Blood 479 mg/dL (70-110)
[2024-07-16 04:01] LABS: Glucose,Whole Blood 464 mg/dL (70-110)
[2024-07-16 06:02] LABS: Anisocytosis Slight; Basophils % (A) 0 %; Eosinophils % (A) 0 %; HCT 36.5 % (34.0-46.0); Hypochromasia Marked; Lymphocytes # (A) 0.9 k/uL (1.0-4.8); Lymphocytes % (A) 8 %; MCH 31.6 pg (25.0-35.0); MCHC 30.2 g/dL (31.0-37.0); MCV 104.4 fL (80.0-100.0); Macrocytosis Moderate; Mean Platelet Volume 9.5; Monocytes # (A) 0.5 k/uL (0-1.0); Monocytes % (A) 4 %; Neutrophils % (A) 87 %; Platelet Count 218 k/uL (150-450); WBC 11.5 k/uL (3.8-10.6)
[2024-07-16 06:17] LABS: African American GFR (CKD) 75 (>60 ml/min/1.73 sqM); Anion Gap 6 mmol/L; Blood Urea Nitrogen 25 mg/dL (7-17); Calcium 8.5 mg/dL (8.4-10.2); Carbon Dioxide 33 mmol/L (22-30); Chloride 99 mmol/L (98-107); Glucose 329 mg/dL (74-99); Non-African American GFR(CKD) 65 (>60 ml/min/1.73 sqM); Sodium 138 mmol/L (137-145)
[2024-07-16 06:24] LABS: Glucose,Whole Blood 335 mg/dL (70-110)
[2024-07-16 06:38] LABS: Partial Thromboplastin Time 28.9 sec (22.0-30.0); Prothrombin Time 11.1 sec (10.0-12.5)
[2024-07-16] MEDS ORDERED: INSULIN DETEMIR (LEVEMIR) 100 UNIT/ML SYR SQ SCH ×2 (07:00)
[2024-07-16] MEDS: INSULIN DETEMIR (LEVEMIR) 100 UNIT/ML SYR SQ SCH ×2 (07:03→20:53)
[2024-07-16] MEDS: LEVOTHYROXINE 100 MCG TAB PO SCH (07:03)
--- NOTE | 2024-07-16 08:46 | P.PN ---
Subjective This is a pleasant 69 years old female with past medical history of multiple medical problems. Patient brought to the hospital after her found her sick and dizzy restroom. Patient currently on BiPAP, cannot provide much information and it was obtained with the help of the at bedside. As per patient was not feeling weak for more than a week, she is not eating well, she was using a walker. She has been complaining from cough and increasing breathing difficulty he went to see her PCP Dr. Sy who gave her a shot of antibiotics for bronchitis and ear infection. As per yesterday 8 PM she was fine about 3 to 4 AM he heard her asking for help while in the restroom where she was lying confused and he called 911. As per also she has been complaining of from central chest pain through the week. Currently when I asked the patient she denies any chest pain or abdominal pain. She follows commands but she looks very tired. Also she has been having more cough and phlegm lately. Cannot fully clear per . Patient is non-smoker, no alcohol no illicit drugs. Patient herself denies any abdominal pain or tenderness, no urinary symptoms. She is somewhat hypothermic with temperature 96.9. She is tachycardic 110, tachypneic at 22-24. Blood pressure 155/91 She is on BiPAP with FiO2 of 50% with oxygen saturation 92%. pH 7.2, pCO2 is high 65 and pO2 is low 72 Labs showing WBC 9.3, hemoglobin 10.7. Platelet count is normal. INR is unremarkable. Elevated troponin 0.55 proBNP is elevated 2860. Liver enzymes are unremarkable. Albumin 3.2 Urine drug screen is positive for oxycodone and benzodiazepine, serum alcohol less than 10 Influenza A and type B, RSV, SARS (coronavirus) are un CT of the abdomen and pelvis and chest With contrast showing no acute abnormality. Mild pulmonary edema. There is atelectasis/consolidation in the left lower lobe with mild atelectasis also seen in the right lower lobe base, right middle lobe and lingula Echocardiogram in 2019 showed ejection fraction 40 to 45% EKG showing sinus tachycardia [address]-T changes CT of the head and neck is negative for acute process Pelvic x-ray is negative, chest x-ray reviewed by myself showing bilateral lower lobe infiltrate slightly worse than before 07/16 Patient currently in the ICU but at select overflow Patient this morning is sleepy. She is on BiPAP and tolerates that well Daughter Amie at bedside and states she was awake through the night and currently tired. Vitals look stable. Hemoglobin 11 WBC 11.5 She is currently on IV Lasix 40 mg twice daily Pro- Calcitonin is negative at 0.27. Patient currently on Zosyn Patient also on aspirin and Plavix She will need cardiac cath once she stabilizes Review of systems CONSTITUTIONAL: No fever, no malaise, no fatigue. HEMATOLOGICAL: Denies any bleeding or petechiae. GENITOURINARY: Denies any burning micturition, frequency, or urgency. MUSCULOSKELETAL/RHEUMATOLOGICAL: Denies any joint pain, swelling, or any muscle pain. ENDOCRINE: Denies any polyuria or polydipsia. Active Medications Generic Name Dose Route Start Last Admin Trade Name Freq PRN Reason Stop Dose Admin Acetaminophen 650 mg 07/15/24 07:38 Acetaminophen Tab 325 Mg Tab PO Q6HR PRN Mild Pain or Fever > 100.5 Aspirin 81 mg 07/16/24 09:00 Aspirin 81 Mg PO DAILY FLO Atorvastatin Calcium 80 mg 07/15/24 21:00 07/15/24 22:38 Atorvastatin 80 Mg Tab PO Not Given HS FLO Clopidogrel Bisulfate 75 mg 07/16/24 09:00 Clopidogrel 75 Mg Tab PO DAILY FLO Dextrose/Water 25 ml 07/15/24 23:51 Dextrose 50% Syringe 50 Ml IVP PER PROTOCOL PRN Hypoglycemia Protocol Dextrose/Water 50 ml 07/15/24 23:51 Dextrose 50% Syringe 50 Ml IVP PER PROTOCOL PRN Hypoglycemia Protocol Docusate Sodium 100 mg 07/16/24 09:00 Docusate 100 Mg Cap PO BID FLO Furosemide 40 mg 07/15/24 14:30 07/15/24 22:37 Furosemide 10 Mg/Ml 4 Ml Vial IV 40 mg Q12HR FLO Administration Heparin Sodium (Porcine) 0 unit 07/15/24 14:23 07/16/24 07:03 Heparin Sodium 1,000 Un/Ml (10ml Vl) IV 4,000 unit PER PROTOCOL PRN Administration Low PTT Protocol Piperacillin Sod/Tazobactam 100 mls @ 25 mls/hr 07/15/24 08:00 07/16/24 00:33 Sod 3.375 gm/ Sodium Chloride IVPB 25 mls/hr Q8HR FLO Administration Protocol Heparin Sodium/Sodium Chloride 250 mls @ 10.128 mls/hr 07/15/24 14:30 07:04 25,000 unit/ Sodium Chloride IV 14 units/kg/hr .Q24H FLO 17.724 mls/hr Titration Protocol 8 UNITS/KG/HR Insulin Aspart 0 unit 07/15/24 23:45 07/16/24 04:06 Insulin Aspart (Novolog) 100 Unit/Ml Vial SQ 24 unit Q4H FLO Administration Protocol Insulin Detemir 60 unit 07/16/24 21:00 Insulin Detemir (Levemir) 100 Unit/Ml Syr SQ BID@0700,2100 [facility] Levothyroxine Sodium 300 mcg 07/16/24 06:00 07/16/24 07:03 Levothyroxine 100 Mcg Tab PO 300 mcg DAILY@0600 [facility] Administration Metoprolol Tartrate 50 mg 07/15/24 14:26 07/15/24 22:38 Metoprolol Tartrate 50 Mg Tab PO Not Given BID [facility] Naloxone HCl 0.2 mg 07/15/24 07:38 Naloxone 0.4 Mg/Ml 1 Ml Vial IV Q2M PRN Opioid Reversal Nitroglycerin 1 inch 07/15/24 16:00 07/16/24 00:09 Nitroglycerin Oint 1 Inch/Gm Packet TOPICAL Not Given Q8HR [facility] Ondansetron HCl 4 mg 07/15/24 07:38 Ondansetron 4 Mg/2 Ml Vial IVP Q8HR PRN Nausea And Vomiting Objective - Vital Signs Vital signs: Vital Signs Temp 97.6 F 07/16/24 04:00 Pulse 95 07/16/24 00:59 Resp 20 07/16/24 04:00 BP 104/50 07/16/24 04:00 Pulse Ox 96 07/16/24 04:00 FiO2 50 07/16/24 07:46 Intake & Output 07/15/24 07/16/24 07/16/24 18:59 06:59 18:59 Intake Total 56.886 106.07 Output Total 1000 1250 Balance -1000 -1193.114 106.07 Weight 118.7 kg Intake: Intake, IV Titration 56.886 106.07 Amount Heparin Sod,Pork in 0.45% 56.886 106.07 NaCl 25,000 unit In 0.45 % NaCl 1 250ml.bag @ 8 UNITS/KG/HR 10.128 mls/hr IV .Q24H [facility] Rx#: [id number] Output: Urine 1000 1250 Other: Voiding Method External Catheter # Bowel Movements 2 - Exam -GENERAL: The patient is alert and confused, she is on BiPAP not in any acute distress. Obese HEENT: Pupils are round and equally reacting to light. EOMI. No scleral icterus. No conjunctival pallor. Normocephalic, atraumatic. No pharyngeal erythema. No thyromegaly. CARDIOVASCULAR: S1 and S2 present. No murmurs, rubs, or gallops. -PULMONARY: Chest is clear to auscultation, no wheezing , bilateral basal crackles. ABDOMEN: Soft, nontender, nondistended, normoactive bowel sounds. No palpable organomegaly. MUSCULOSKELETAL: No joint swelling or deformity. EXTREMITIES: No cyanosis, clubbing, or pedal edema. NEUROLOGICAL: Gross neurological examination did not reveal any focal deficits. SKIN: No rashes. no petechiae. - Labs CBC & Chem 7: 07/16/24 05:20 07/16/24 05:20 Labs: Abnormal Lab Results - Last 24 Hours (Table) 07/15/24 07/15/24 07/15/24 Range/Units 09:03 12:10 15:01 WBC 11.7 H (3.8-10.6) k/uL RBC 3.69 L (3.80-5.40) m/uL Hgb (11.4-16.0) gm/dL MCV 106.5 H (80.0-100.0) fL MCHC 29.9 L (31.0-37.0) g/dL RDW (11.5-15.5) % Neutrophils # 10.6 H (1.3-7.7) k/uL Lymphocytes # 0.8 L (1.0-4.8) k/uL APTT (22.0-30.0) sec ABG pH 7.23 L (7.35-7.45) ABG pCO2 65 H (35-45) mmHg ABG pO2 72 L (83-108) mmHg ABG HCO3 27 H (21-25) mmol/L ABG Total CO2 29 H (19-24) mmol/L ABG O2 Saturation 93.1 L (94-97) % Hemoglobin 11.3 L (11.4-16.0) gm/dL Carbon Dioxide (22-30) mmol/L BUN (7-17) mg/dL Glucose (74-99) mg/dL POC Glucose (mg/dL) (70-110) mg/dL Hemoglobin A1c (<=6.0) % Troponin I 2.960 H* (0.000-0.034) ng/mL Cholesterol (0.00-200.00) mg/dL HDL Cholesterol (40.00-60.00) mg/dL 07/15/24 07/15/24 07/15/24 Range/Units 15:01 15:01 20:40 WBC (3.8-10.6) k/uL RBC (3.80-5.40) m/uL Hgb (11.4-16.0) gm/dL MCV (80.0-100.0) fL MCHC (31.0-37.0) g/dL RDW (11.5-15.5) % Neutrophils # (1.3-7.7) k/uL Lymphocytes # (1.0-4.8) k/uL APTT 19.3 L (22.0-30.0) sec ABG pH (7.35-7.45) ABG pCO2 (35-45) mmHg ABG pO2 (83-108) mmHg ABG HCO3 (21-25) mmol/L ABG Total CO2 (19-24) mmol/L ABG O2 Saturation (94-97) % Hemoglobin (11.4-16.0) gm/dL Carbon Dioxide (22-30) mmol/L BUN (7-17) mg/dL Glucose (74-99) mg/dL POC Glucose (mg/dL) (70-110) mg/dL Hemoglobin A1c 9.6 H (<=6.0) % Troponin I (0.000-0.034) ng/mL Cholesterol 207.00 H (0.00-200.00) mg/dL HDL Cholesterol 64.30 H (40.00-60.00) mg/dL 07/15/24 07/16/24 07/16/24 Range/Units 23:48 01:21 01:31 WBC (3.8-10.6) k/uL RBC (3.80-5.40) m/uL Hgb (11.4-16.0) gm/dL MCV (80.0-100.0) fL MCHC (31.0-37.0) g/dL RDW (11.5-15.5) % Neutrophils # (1.3-7.7) k/uL Lymphocytes # (1.0-4.8) k/uL APTT 39.7 H (22.0-30.0) sec ABG pH (7.35-7.45) ABG pCO2 (35-45) mmHg ABG pO2 (83-108) mmHg ABG HCO3 (21-25) mmol/L ABG Total CO2 (19-24) mmol/L ABG O2 Saturation (94-97) % Hemoglobin (11.4-16.0) gm/dL Carbon Dioxide (22-30) mmol/L BUN (7-17) mg/dL Glucose (74-99) mg/dL POC Glucose (mg/dL) 545 H* 479 H (70-110) mg/dL Hemoglobin A1c (<=6.0) % Troponin I (0.000-0.034) ng/mL Cholesterol (0.00-200.00) mg/dL HDL Cholesterol (40.00-60.00) mg/dL 07/16/24 07/16/24 07/16/24 Range/Units 03:59 05:20 05:20 WBC 11.5 H (3.8-10.6) k/uL RBC 3.50 L (3.80-5.40) m/uL Hgb 11.0 L (11.4-16.0) gm/dL MCV 104.4 H (80.0-100.0) fL MCHC 30.2 L (31.0-37.0) g/dL RDW 16.0 H (11.5-15.5) % Neutrophils # 10.0 H (1.3-7.7) k/uL Lymphocytes # 0.9 L (1.0-4.8) k/uL APTT (22.0-30.0) sec ABG pH (7.35-7.45) ABG pCO2 (35-45) mmHg ABG pO2 (83-108) mmHg ABG HCO3 (21-25) mmol/L ABG Total CO2 (19-24) mmol/L ABG O2 Saturation (94-97) % Hemoglobin (11.4-16.0) gm/dL Carbon Dioxide 33 H (22-30) mmol/L BUN 25 H (7-17) mg/dL Glucose 329 H (74-99) mg/dL POC Glucose (mg/dL) 464 H (70-110) mg/dL Hemoglobin A1c (<=6.0) % Troponin I (0.000-0.034) ng/mL Cholesterol (0.00-200.00) mg/dL HDL Cholesterol (40.00-60.00) mg/dL 07/16/24 Range/Units 06:23 WBC (3.8-10.6) k/uL RBC (3.80-5.40) m/uL Hgb (11.4-16.0) gm/dL MCV (80.0-100.0) fL MCHC (31.0-37.0) g/dL RDW (11.5-15.5) % Neutrophils # (1.3-7.7) k/uL Lymphocytes # (1.0-4.8) k/uL APTT (22.0-30.0) sec ABG pH (7.35-7.45) ABG pCO2 (35-45) mmHg ABG pO2 (83-108) mmHg ABG HCO3 (21-25) mmol/L ABG Total CO2 (19-24) mmol/L ABG O2 Saturation (94-97) % Hemoglobin (11.4-16.0) gm/dL Carbon Dioxide (22-30) mmol/L BUN (7-17) mg/dL Glucose (74-99) mg/dL POC Glucose (mg/dL) 335 H (70-110) mg/dL Hemoglobin A1c (<=6.0) % Troponin I (0.000-0.034) ng/mL Cholesterol (0.00-200.00) mg/dL HDL Cholesterol (40.00-60.00) mg/dL Assessment and Plan Assessment: Acute hypoxic respiratory failure Elevated troponin Pulmonary edema, acute CHF, most likely systolic. Pneumonia felt less likely Obesity with BMI of 46.4. Diabetes mellitus Hypertension Hyperlipidemia History of osteoarthritis Hypothyroidism History of pulmonary embolism Plan: May discontinue antibiotic Continue the bronchodilator Oxygen therapy, BiPAP as needed Pulmonary consult Check echocardiogram Cardiology team consult Labs and medication were reviewed.. Continue same treatment. Continue with symptomatic treatment. Resume home medication. Monitor lytes and vitals. DVT and GI prophylaxis. Further recommendations depends on the clinical course of the patient DVT prophylaxis: Subcutaneous heparin GI Prophylaxis: Pepcid PT/OT: Pending, deferred Prognosis is guarded bipolar disorder
[2024-07-16] MEDS ORDERED: DOCUSATE 100 MG CAP PO SCH (09:00)
--- NOTE | 2024-07-16 09:49 | P.PN ---
Subjective Progress Note Date: 07/16/24 The patient is a 69-year-old female who follows in the office with Dr. JOSH Babcock. She presented to the hospital with worsening shortness of breath. She subsequently been diagnosed with pneumonia and has been placed on BiPAP. Patient interviewed and examined resting in bed in the ICU. Patient is currentl y on BiPAP. She is tachypneic. No current chest discomfort. GENERAL: Well-appearing, well-nourished and in no acute distress. NECK: Supple without JVD or thyromegaly. LUNGS: Breath sounds diminished to auscultation bilaterally. Respiration equal. Mildly labored. No wheezes, rales or rhonchi. HEART: Regular rate and rhythm without murmurs, rubs or gallops. S1 and S2 heard. EXTREMITIES: Normal range of motion, no edema. No clubbing or cyanosis. Peripheral pulses intact and strong. TELEMETRY: Sinus rhythm to sinus tachycardia overnight LABS: WBC 11.5, hemoglobin 11.0, medic at 36.5, platelet 218, sodium 138, potassium 5.0, BUN 25, creatinine 0.90 IMPRESSION: Pneumonia Acute hypoxic respiratory failure Non-STEMI Acute on chronic heart failure, diastolic Coronary artery disease, multivessel Hypertension Hyperlipidemia Diabetes Obesity Medication noncompliance PLAN: Echocardiogram results pending Continue IV heparin Plan for cardiac catheterization when pneumonia has improved Further recommendations to be based upon clinical course I am dictating on behalf of Dr Niraj Bronson's history/physical and assessment/plan. Objective - Vital Signs Vital signs: Vital Signs Temp 97.6 F 07/16/24 04:00 Pulse 95 07/16/24 00:59 Resp 20 07/16/24 04:00 BP 104/50 07/16/24 04:00 Pulse Ox 96 07/16/24 04:00 FiO2 50 07/16/24 07:46 Intake & Output 07/15/24 07/16/24 07/16/24 18:59 06:59 18:59 Intake Total 56.886 106.07 Output Total 1000 1250 Balance -1000 -1193.114 106.07 Weight 118.7 kg Intake: Intake, IV Titration 56.886 106.07 Amount Heparin Sod,Pork in 0.45% 56.886 106.07 NaCl 25,000 unit In 0.45 % NaCl 1 250ml.bag @ 8 UNITS/KG/HR 10.128 mls/hr IV .Q24H [facility] Rx#: [id number] Output: Urine 1000 1250 Other: Voiding Method External Catheter # Bowel Movements 2 - Labs CBC & Chem 7: 07/16/24 05:20 07/16/24 05:20 Labs: Abnormal Lab Results - Last 24 Hours (Table) 07/15/24 07/15/24 07/15/24 Range/Units 09:03 12: 15:01 WBC 11.7 H (3.8-10.6) k/uL RBC 3.69 L (3.80-5.40) m/uL Hgb (11.4-16.0) gm/dL MCV 106.5 H (80.0-100.0) fL MCHC 29.9 L (31.0-37.0) g/dL RDW (11.5-15.5) % Neutrophils # 10.6 H (1.3-7.7) k/uL Lymphocytes # 0.8 L (1.0-4.8) k/uL APTT (22.0-30.0) sec ABG pH 7.23 L (7.35-7.45) ABG pCO2 65 H (35-45) mmHg ABG pO2 72 L (83-108) mmHg ABG HCO3 27 H (21-25) mmol/L ABG Total CO2 29 H (19-24) mmol/L ABG O2 Saturation 93.1 L (94-97) % Hemoglobin 11.3 L (11.4-16.0) gm/dL Carbon Dioxide (22-30) mmol/L BUN (7-17) mg/dL Glucose (74-99) mg/dL POC Glucose (mg/dL) (70-110) mg/dL Hemoglobin A1c (<=6.0) % Troponin I 2.960 H* (0.000-0.034) ng/mL Cholesterol (0.00-200.00) mg/dL HDL Cholesterol (40.00-60.00) mg/dL 07/15/24 07/15/24 07/15/24 Range/Units 15:01 15:01 20:40 WBC (3.8-10.6) k/uL RBC (3.80-5.40) m/uL Hgb (11.4-16.0) gm/dL MCV (80.0-100.0) fL MCHC (31.0-37.0) g/dL RDW (11.5-15.5) % Neutrophils # (1.3-7.7) k/uL Lymphocytes # (1.0-4.8) k/uL APTT 19.3 L (22.0-30.0) sec ABG pH (7.35-7.45) ABG pCO2 (35-45) mmHg ABG pO2 (83-108) mmHg ABG HCO3 (21-25) mmol/L ABG Total CO2 (19-24) mmol/L ABG O2 Saturation (94-97) % Hemoglobin (11.4-16.0) gm/dL Carbon Dioxide (22-30) mmol/L BUN (7-17) mg/dL Glucose (74-99) mg/dL POC Glucose (mg/dL) (70-110) mg/dL Hemoglobin A1c 9.6 H (<=6.0) % Troponin I (0.000-0.034) ng/mL Cholesterol 207.00 H (0.00-200.00) mg/dL HDL Cholesterol 64.30 H (40.00-60.00) mg/dL 07/15/24 07/16/24 07/16/24 Range/Units 23:48 01:21 01:31 WBC (3.8-10.6) k/uL RBC (3.80-5.40) m/uL Hgb (11.4-16.0) gm/dL MCV (80.0-100.0) fL MCHC (31.0-37.0) g/dL RDW (11.5-15.5) % Neutrophils # (1.3-7.7) k/uL Lymphocytes # (1.0-4.8) k/uL APTT 39.7 H (22.0-30.0) sec ABG pH (7.35-7.45) ABG pCO2 (35-45) mmHg ABG pO2 (83-108) mmHg ABG HCO3 (21-25) mmol/L ABG Total CO2 (19-24) mmol/L ABG O2 Saturation (94-97) % Hemoglobin (11.4-16.0) gm/dL Carbon Dioxide (22-30) mmol/L BUN (7-17) mg/dL Glucose (74-99) mg/dL POC Glucose (mg/dL) 545 H* 479 H (70-110) mg/dL Hemoglobin A1c (<=6.0) % Troponin I (0.000-0.034) ng/mL Cholesterol (0.00-200.00) mg/dL HDL Cholesterol (40.00-60.00) mg/dL 07/16/24 07/16/24 07/16/24 Range/Units 03:59 05:20 05:20 WBC 11.5 H (3.8-10.6) k/uL RBC 3.50 L (3.80-5.40) m/uL Hgb 11.0 L (11.4-16.0) gm/dL MCV 104.4 H (80.0-100.0) fL MCHC 30.2 L (31.0-37.0) g/dL RDW 16.0 H (11.5-15.5) % Neutrophils # 10.0 H (1.3-7.7) k/uL Lymphocytes # 0.9 L (1.0-4.8) k/uL APTT (22.0-30.0) sec ABG pH (7.35-7.45) ABG pCO2 (35-45) mmHg ABG pO2 (83-108) mmHg ABG HCO3 (21-25) mmol/L ABG Total CO2 (19-24) mmol/L ABG O2 Saturation (94-97) % Hemoglobin (11.4-16.0) gm/dL Carbon Dioxide 33 H (22-30) mmol/L BUN 25 H (7-17) mg/dL Glucose 329 H (74-99) mg/dL POC Glucose (mg/dL) 464 H (70-110) mg/dL Hemoglobin A1c (<=6.0) % Troponin I (0.000-0.034) ng/mL Cholesterol (0.00-200.00) mg/dL HDL Cholesterol (40.00-60.00) mg/dL 07/16/24 Range/Units 06:23 WBC (3.8-10.6) k/uL RBC (3.80-5.40) m/uL Hgb (11.4-16.0) gm/dL MCV (80.0-100.0) fL MCHC (31.0-37.0) g/dL RDW (11.5-15.5) % Neutrophils # (1.3-7.7) k/uL Lymphocytes # (1.0-4.8) k/uL APTT (22.0-30.0) sec ABG pH (7.35-7.45) ABG pCO2 (35-45) mmHg ABG pO2 (83-108) mmHg ABG HCO3 (21-25) mmol/L ABG Total CO2 (19-24) mmol/L ABG O2 Saturation (94-97) % Hemoglobin (11.4-16.0) gm/dL Carbon Dioxide (22-30) mmol/L BUN (7-17) mg/dL Glucose (74-99) mg/dL POC Glucose (mg/dL) 335 H (70-110) mg/dL Hemoglobin A1c (<=6.0) % Troponin I (0.000-0.034) ng/mL Cholesterol (0.00-200.00) mg/dL HDL Cholesterol (40.00-60.00) mg/dL
[2024-07-16 10:16] LABS: Glucose,Whole Blood 152 mg/dL (70-110)
--- NOTE | 2024-07-16 10:18 | CA ---
Transthoracic Echo Report Name: Rosalinda Brothers Age: 69 Gender: F : 1955 Exam Date: 07/16/2024 07:57 Exam Location: [facility] Ht (in): 65 Wt (lb): 279 Ordering Physician: Jonathan Mooney MD Attending/Referring Phys: [id number], Jesica [employer] Specialist Samina Ochoa RDCS Procedure CPT: Indications: Chest Pain Cardiac Hx: Technical Quality: Technically difficult study Contrast 1: Definity Total Dose (mL): 1 Contrast 2: Total Dose (mL): MEASUREMENTS (Male / Female) Normal Values 2D ECHO LVOT Diameter 1.9 cm LV Diastolic Volume MOD BP 190.3 cm??? 67 - 155 / 56 - 104 cm??? LV Systolic Volume MOD BP 129.8 cm??? 22 - 58 / 19 - 49 cm??? LV Ejection Fraction MOD BP 31.8 % >= 55 % LV Cardiac Index MOD BP 2218.8 cm???/min???m??? LV Diastolic Volume MOD 4C 171.8 cm??? LV Systolic Volume MOD 4C 124.4 cm??? LV Ejection Fraction MOD 4C 27.6 % LV Cardiac Index MOD 4C 1740.3 cm???/min???m??? LV Diastolic Length 4C 9.3 cm LV Systolic Length 4C 8.5 cm LV Diastolic Volume MOD 2C 200.2 cm??? LV Systolic Volume MOD 2C 129.0 cm??? LV Ejection Fraction MOD 2C 35.6 % LV Cardiac Index MOD 2C 2612.1 cm???/min???m??? LV Diastolic Length 2C 9.8 cm LV Systolic Length 2C 9.0 cm LA Volume 68.3 cm??? 18 - 58 / 22 - 52 cm??? LA Volume Index 27.5 cm???/m??? 16 - 28 cm???/m??? Ascending Aorta Diameter 3.1 cm DOPPLER AV Peak Velocity 139.2 cm/s AV Peak Gradient 7.8 mmHg AV Mean Velocity 95.3 cm/s AV Mean Gradient 4.2 mmHg AV Velocity Time Integral 25.3 cm LVOT Peak Velocity 90.1 cm/s LVOT Peak Gradient 3.3 mmHg LVOT Velocity Time Integral 14.7 cm LVOT Stroke Volume 42.9 cm??? LVOT Stroke Volume Index 18.8 ml/m??? LVOT Cardiac Index 1573.9 cm???/min???m??? AV Area Cont Eq vti 1.7 cm??? AV Area Cont Eq pk 1.9 cm??? MV Peak Velocity 95.4 cm/s MV Peak Gradient 3.6 mmHg MV Mean Velocity 74.7 cm/s MV Mean Gradient 2.4 mmHg MV Velocity Time Integral 25.0 cm MV Area PHT 5.1 cm??? Mitral E Point Velocity 65.4 cm/s Mitral A Point Velocity 78.1 cm/s Mitral E to A Ratio 0.8 MV Deceleration Time 148.1 ms PV Peak Velocity 80.1 cm/s PV Peak Gradient 2.6 mmHg FINDINGS Left Ventricle Left ventricular ejection fraction is estimated at 20-25 %. Severely increased left ventricular diastolic volume. Severely increased left ventricular systolic volume. Moderately decreased left ventricular ejection fraction with regional variability. Akinetic apex. Right Ventricle Right ventricle not well visualized. Unable to estimate the right ventricular systolic pressure. Right Atrium Right atrium not well visualized. Left Atrium Moderately increased left atrial volume. Mitral Valve Structurally normal mitral valve. No evidence for mitral valve prolapse. No mitral stenosis. Mild mitral regurgitation. Aortic Valve Trileaflet aortic valve. No aortic valve stenosis or regurgitation. Tricuspid Valve Structurally normal tricuspid valve. No tricuspid stenosis, regurgitation or prolapse. Pulmonic Valve Pulmonic valve not well visualized. No pulmonic stenosis. No pulmonic regurgitation. Pericardium No pericardial effusion. Aorta Normal size aortic root and proximal ascending aorta. CONCLUSIONS Left ventricle is mildly enlarged. There is akinesia involving the mid to distal septum and adjoining anteroapical wall. Ejection fraction is about 25%. There is also hypokinesia of the anterolateral wall. There is akinesia of the anteroapical wall as well the base of the Ventricle contracts well. Possibility of ischemic heart disease or apical ballooning syndrome should be considered. Doppler exam is unremarkable no pericardial effusion Previewed by: Dr. Diane Babcock MD (Electronically Signed) Final Date: 16 July 2024 10:17
[2024-07-16] MEDS: DOCUSATE 100 MG CAP PO SCH (10:26)
[2024-07-16] MEDS: CLOPIDOGREL 75 MG TAB PO SCH (10:26)
[2024-07-16] MEDS: PANTOPRAZOLE 40 MG/10 ML VIAL IVP SCH (10:27)
[2024-07-16] MEDS: ASPIRIN 81 MG PO SCH (10:27)
[2024-07-16] MEDS: ALPRAZolam 0.5 MG TAB PO PRN (10:38)
[2024-07-16] MEDS: ONDANSETRON 4 MG/2 ML VIAL IVP PRN (10:39)
--- NOTE | 2024-07-16 10:50 | XR ---
EXAMINATION TYPE: XR chest 1V portable DATE OF EXAM: 07/16/2024 6:06 AM COMPARISON: 07/15/2024 CLINICAL INDICATION: Female, 69 years old with history of bipap dependent respiratory failure, TECHNIQUE: XR chest 1V portable view(s) obtained. FINDINGS: The heart size is enlarged. The pulmonary vasculature is normal. The lungs are clear. Previous infiltrates have diminished over the interval. Some residual remains in the retrocardiac reg ion IMPRESSION: 1. Diminishing bilateral lung infiltrates. Continued follow-up is recommended [facility], , 07/16/2024 10:48 AM
[2024-07-16 12:00] LABS: Glucose,Whole Blood 141 mg/dL (70-110)
--- NOTE | 2024-07-16 13:50 | P.PN ---
Subjective Progress Note Date: 07/16/24 This is a 69-year-old female patient with multiple comorbidities including DVT, diabetes mellitus, hypertension, myocardial infarction, congestive heart failure, hypertension, factor V, former smoker. The patient was found down in her bathroom at home earlier this morning. EMS was called and she was blue on arrival and with a 50% O2 saturation. They placed her on nonrebreather and transferred her here. She was then placed on BiPAP 14/6 and 50% FiO2. Arterial blood gases revealed a PaO2 of 72, CO2 of 65 and a pH of 7.23 on 50%. Urine drug screen was positive for oxycodone and benzodiazepines. Troponin initially 0.55 then elevated at 2.96. White count 9.3. Hemoglobin 10.7. Platelets 204. Sodium 134. Potassium 4.9. Bicarb 27. BUN 17. Creatinine 0.88. Glucose 368. proBNP 2860. Viral screen negative. Chest x-ray revealed small bilateral pleural effusion and atelectasis. Mild pulmonary edema. No evidence of pneumothorax. CT scan of the head revealed no acute intracranial abnormalities. No cervical fractures. CT scan of the chest revealed small bilateral pleural effusions with atelectasis. Mild pulmonary edema. No evidence of acute trauma injury to the abdomen or pelvis. She is seen today in consultation in the emergency department. She remains on BiPAP. She is laying on her left side on the stretcher. She is awake and alert. Family is at the bedside. The patient is seen today July 16, 2024 in follow-up on the regular medical floor. She is currently sitting up in bed. Awake and alert in no acute distress. She is maintaining O2 saturations in the 90s on BiPAP currently 14/6 and 50% FiO2. She denies any significant shortness of breath, cough or co ngestion. She is still having some abdominal discomfort. Her procalcitonin was negative at 0.27. Zosyn will be discontinued. She remains on a heparin drip. She did rule in for non-ST segment elevation myocardial infarction. She is receiving Lasix 40 mg IV every 12 hours. Chest x-ray showing diminishing bilateral lung infiltrates. Count 11.5. Hemoglobin 11.0. Platelets 218. Sodium 138. Potassium 5.0. Bicarb 33. BUN 25. Creatinine 0.90. Glucose 329. Her hemoglobin A1c is 9.7. Remains on Levemir and Novolog sliding scale. Objective - Vital Signs Vital signs: Vital Signs Temp 98.4 F 07/16/24 08:00 Pulse 88 07/16/24 08:00 Resp 20 07/16/24 08:00 BP 106/54 07/16/24 08:00 Pulse Ox 93 L 07/16/24 09:24 FiO2 50 07/16/24 08:00 Intake & Output 07/15/24 07/16/24 07/16/24 18:59 06:59 18:59 Intake Total 56.886 216.550 Output Total 1000 1250 Balance -1000 -1193.114 216.550 Weight 118.7 kg 118.7 kg Intake: Intake, IV Titration 56.886 216.550 Amount Heparin Sod,Pork in 0.45% 56.886 216.550 NaCl 25,000 unit In 0.45 % NaCl 1 250ml.bag @ 8 UNITS/KG/HR 10.128 mls/hr IV .Q24H [facility] Rx#: [id number] Output: Urine 1000 1250 Other: Voiding Method External Catheter External Catheter # Bowel Movements 2 - Exam GENERAL EXAM: Alert, 69-year-old female, on BiPAP, comfortable in no apparent distress. HEAD: Normocephalic. EYES: Normal reaction of pupils, equal size. NOSE: Clear with pink turbinates. THROAT: No erythema or exudates. NECK: No masses, no JVD. CHEST: No chest wall deformity. LUNGS: Equal air entry with bibasilar crackles. CVS: S1 and S2 normal with no audible murmur, regular rhythm. ABDOMEN: No hepatosplenomegaly, normal bowel sounds, no guarding or rigidity. SPINE: No scoliosis or deformity SKIN: No rashes CENTRAL NERVOUS SYSTEM: No focal deficits, tone is normal in all 4 extremities. EXTREMITIES: There is 1+ peripheral edema. No clubbing, no cyanosis. Peripheral pulses are intact. - Labs CBC & Chem 7: 07/16/24 05:20 07/16/24 05:20 Labs: Abnormal Lab Results - Last 24 Hours (Table) 07/15/24 07/15/24 07/15/24 Range/Units 15:01 15:01 15:01 WBC 11.7 H (3.8-10.6) k/uL RBC 3.69 L (3.80-5.40) m/uL Hgb (11.4-16.0) gm/dL MCV 106.5 H (80.0-100.0) fL MCHC 29.9 L (31.0-37.0) g/dL RDW (11.5-15.5) % Neutrophils # 10.6 H (1.3-7.7) k/uL Lymphocytes # 0.8 L (1.0-4.8) k/uL APTT (22.0-30.0) sec Carbon Dioxide (22-30) mmol/L BUN (7-17) mg/dL Glucose (74-99) mg/dL POC Glucose (mg/dL) (70-110) mg/dL Hemoglobin A1c 9.6 H (<=6.0) % Cholesterol 207.00 H (0.00-200.00) mg/dL HDL Cholesterol 64.30 H (40.00-60.00) mg/dL 07/15/24 07/15/24 07/16/24 Range/Units 20:40 23:48 01:21 WBC (3.8-10.6) k/uL RBC (3.80-5.40) m/uL Hgb (11.4-16.0) gm/dL MCV (80.0-100.0) fL MCHC (31.0-37.0) g/dL RDW (11.5-15.5) % Neutrophils # (1.3-7.7) k/uL Lymphocytes # (1.0-4.8) k/uL APTT 19.3 L 39.7 H (22.0-30.0) sec Carbon Dioxide (22-30) mmol/L BUN (7-17) mg/dL Glucose (74-99) mg/dL POC Glucose (mg/dL) 545 H* (70-110) mg/dL Hemoglobin A1c (<=6.0) % Cholesterol (0.00-200.00) mg/dL HDL Cholesterol (40.00-60.00) mg/dL 07/16/24 07/16/24 07/16/24 Range/Units 01:31 03:59 05:20 WBC (3.8-10.6) k/uL RBC (3.80-5.40) m/uL Hgb (11.4-16.0) gm/dL MCV (80.0-100.0) fL MCHC (31.0-37.0) g/dL RDW (11.5-15.5) % Neutrophils # (1.3-7.7) k/uL Lymphocytes # (1.0-4.8) k/uL APTT (22.0-30.0) sec Carbon Dioxide 33 H (22-30) mmol/L BUN 25 H (7-17) mg/dL Glucose 329 H (74-99) mg/dL POC Glucose (mg/dL) 479 H 464 H (70-110) mg/dL Hemoglobin A1c (<=6.0) % Cholesterol (0.00-200.00) mg/dL HDL Cholesterol (40.00-60.00) mg/dL 07/16/24 07/16/24 07/16/24 Range/Units 05:20 05:20 06:23 WBC 11.5 H (3.8-10.6) k/uL RBC 3.50 L (3.80-5.40) m/uL Hgb 11.0 L (11.4-16.0) gm/dL MCV 104.4 H (80.0-100.0) fL MCHC 30.2 L (31.0-37.0) g/dL RDW 16.0 H (11.5-15.5) % Neutrophils # 10.0 H (1.3-7.7) k/uL Lymphocytes # 0.9 L (1.0-4.8) k/uL APTT (22.0-30.0) sec Carbon Dioxide (22-30) mmol/L BUN (7-17) mg/dL Glucose (74-99) mg/dL POC Glucose (mg/dL) 335 H (70-110) mg/dL Hemoglobin A1c 9.7 H (<=6.0) % Cholesterol (0.00-200.00) mg/dL HDL Cholesterol (40.00-60.00) mg/dL 07/16/24 07/16/24 07/16/24 Range/Units 10:14 11:58 12:34 WBC (3.8-10.6) k/uL RBC (3.80-5.40) m/uL Hgb (11.4-16.0) gm/dL MCV (80.0-100.0) fL MCHC (31.0-37.0) g/dL RDW (11.5-15.5) % Neutrophils # (1.3-7.7) k/uL Lymphocytes # (1.0-4.8) k/uL APTT 38.8 H (22.0-30.0) sec Carbon Dioxide (22-30) mmol/L BUN (7-17) mg/dL Glucose (74-99) mg/dL POC Glucose (mg/dL) 152 H 141 H (70-110) mg/dL Hemoglobin A1c (<=6.0) % Cholesterol (0.00-200.00) mg/dL HDL Cholesterol (40.00-60.00) mg/dL Assessment and Plan Assessment: Fall at home in her bathroom, unwitnessed. EMS was called and found the patient hypoxemic with O2 saturation in the 50s. Currently on BiPAP Acute hypoxemic respiratory failure suspect secondary to acute exacerbation of chronic systolic congestive heart. 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 Number of minutes spent on the visit: 10 Dictation was produced using [employer] dictation software. Please excuse any grammatical, word or spelling errors.
[2024-07-16 15:55] LABS: Glucose,Whole Blood 143 mg/dL (70-110)
[2024-07-16 20:12] LABS: Glucose,Whole Blood 224 mg/dL (70-110)
[2024-07-16] MEDS: METOPROLOL TARTRATE 25 MG TAB PO SCH (20:53)
[2024-07-16 23:38] LABS: Glucose,Whole Blood 203 mg/dL (70-110)
[2024-07-17 06:19] LABS: Glucose,Whole Blood 145 mg/dL (70-110)
[2024-07-17 07:30] LABS: Basophils % (A) 0 %; Eosinophils # (A) 0.1 k/uL (0-0.7); Eosinophils % (A) 1 %; HCT 34.3 % (34.0-46.0); HGB 10.5 gm/dL (11.4-16.0); Hypochromasia Marked; Lymphocytes % (A) 24 %; MCH 31.8 pg (25.0-35.0); MCHC 30.7 g/dL (31.0-37.0); MCV 103.5 fL (80.0-100.0); Macrocytosis Moderate; Mean Platelet Volume 8.5; Monocytes # (A) 0.4 k/uL (0-1.0); Monocytes % (A) 4 %; Neutrophils # (A) 5.7 k/uL (1.3-7.7); Neutrophils % (A) 69 %; Platelet Count 209 k/uL (150-450); RBC 3.31 m/uL (3.80-5.40); RDW 15.8 % (11.5-15.5); WBC 8.2 k/uL (3.8-10.6)
[2024-07-17 08:39] LABS: African American GFR (CKD) 73 (>60 ml/min/1.73 sqM); Anion Gap 2 mmol/L; Blood Urea Nitrogen 29 mg/dL (7-17); Calcium 8.1 mg/dL (8.4-10.2); Carbon Dioxide 35 mmol/L (22-30); Chloride 99 mmol/L (98-107); Glucose 111 mg/dL (74-99); Non-African American GFR(CKD) 63 (>60 ml/min/1.73 sqM); Potassium 4.2 mmol/L (3.5-5.1); Sodium 136 mmol/L (137-145)
[2024-07-17] MEDS ORDERED: NITROGLYCERIN SL TABS 0.4 MG TAB SUBLINGUAL PRN (10:00)
[2024-07-17] MEDS ORDERED: ALPRAZolam 0.25 MG TAB PO PRN (10:00)
[2024-07-17] MEDS ORDERED: ALPRAZolam 0.5 MG TAB PO PRN (10:00)
[2024-07-17 11:36] LABS: Glucose,Whole Blood 207 mg/dL (70-110)
--- NOTE | 2024-07-17 11:56 | P.PN ---
Subjective This is a pleasant 69 years old female with past medical history of multiple medical problems. Patient brought to the hospital after her found her sick and dizzy restroom. Patient currently on BiPAP, cannot provide much information and it was obtained with the help of the at bedside. As per patient was not feeling weak for more than a week, she is not eating well, she was using a walker. She has been complaining from cough and increasing breathing difficulty he went to see her PCP Dr. Sy who gave her a shot of antibiotics for bronchitis and ear infection. As per yesterday 8 PM she was fine about 3 to 4 AM he heard her asking for help while in the restroom where she was lying confused and he called 911. As per also she has been complaining of from central chest pain through the week. Currently when I asked the patient she denies any chest pain or abdominal pain. She follows commands but she looks very tired. Also she has been having more cough and phlegm lately. Cannot fully clear per . Patient is non-smoker, no alcohol no illicit drugs. Patient herself denies any abdominal pain or tenderness, no urinary symptoms. She is somewhat hypothermic with temperature 96.9. She is tachycardic 110, tachypneic at 22-24. Blood pressure 155/91 She is on BiPAP with FiO2 of 50% with oxygen saturation 92%. pH 7.2, pCO2 is high 65 and pO2 is low 72 Labs showing WBC 9.3, hemoglobin 10.7. Platelet count is normal. INR is unremarkable. Elevated troponin 0.55 proBNP is elevated 2860. Liver enzymes are unremarkable. Albumin 3.2 Urine drug screen is positive for oxycodone and benzodiazepine, serum alcohol less than 10 Influenza A and type B, RSV, SARS (coronavirus) are un CT of the abdomen and pelvis and chest With contrast showing no acute abnormality. Mild pulmonary edema. There is atelectasis/consolidation in the left lower lobe with mild atelectasis also seen in the right lower lobe base, right middle lobe and lingula Echocardiogram in 2019 showed ejection fraction 40 to 45% EKG showing sinus tachycardia [address]-T changes CT of the head and neck is negative for acute process Pelvic x-ray is negative, chest x-ray reviewed by myself showing bilateral lower lobe infiltrate slightly worse than before 07/16 Patient currently in the ICU but at select overflow Patient this morning is sleepy. She is on BiPAP and tolerates that well Daughter Amie at bedside and states she was awake through the night and currently tired. Vitals look stable. Hemoglobin 11 WBC 11.5 She is currently on IV Lasix 40 mg twice daily Pro- Calcitonin is negative at 0.27. Patient currently on Zosyn Patient also on aspirin and Plavix She will need cardiac cath once she stabilizes 07/17 patient is awake alert, she looks more comfortable, she is more awake No significant chest pain Patient feels anxious, as per family she used to take 2 mg of Xanax 3 times daily. We are going to increase her Xanax to 1 mg every 6 hours as needed Patient is going for cardiac cath today Patient a medically stable to go to cardiac cath although she is at some risk. Heparin drip was discontinued and subcutaneous heparin started She remains on aspirin and Plavix Metoprolol and Aldactone started Oxygen saturation acceptable on 3 to 4 L via nasal cannula Review of systems CONSTITUTIONAL: No fever, no malaise, no fatigue. HEMATOLOGICAL: Denies any bleeding or petechiae. GENITOURINARY: Denies any burning micturition, frequency, or urgency. MUSCULOSKELETAL/RHEUMATOLOGICAL: Denies any joint pain, swelling, or any muscle pain. ENDOCRINE: Denies any polyuria or polydipsia. Active Medications Generic Name Dose Route Start Last Admin Trade Name Freq PRN Reason Stop Dose Admin Acetaminophen 650 mg 07/15/24 07:38 Acetaminophen Tab 325 Mg Tab PO Q6HR PRN Mild Pain or Fever > 100.5 Alprazolam 0.25 mg 07/17/24 10:00 Alprazolam 0.25 Mg Tab PO Q6HR PRN Mild Anxiety Alprazolam 1 mg 07/17/24 11:51 Alprazolam 1 Mg Tab PO Q6HR PRN Moderate Anxiety Aspirin 81 mg 07/16/24 09:00 07/17/24 08:34 Aspirin 81 Mg PO 81 mg DAILY [facility]LO Administration Atorvastatin Calcium 80 mg 07/15/24 21:00 07/16/24 20:55 Atorvastatin 80 Mg Tab PO Not Given HS FLO Clopidogrel Bisulfate 75 mg 07/16/24 09:00 07/17/24 08:34 Clopidogrel 75 Mg Tab PO 75 mg DAILY FLO Administration Dextrose/Water 25 ml 07/15/24 23:51 Dextrose 50% Syringe 50 Ml IVP PER PROTOCOL PRN Hypoglycemia Protocol Dextrose/Water 50 ml 07/15/24 23:51 Dextrose 50% Syringe 50 Ml IVP PER PROTOCOL PRN Hypoglycemia Protocol Docusate Sodium 100 mg 07/16/24 09:00 07/17/24 08:34 Docusate 100 Mg Cap PO 100 mg BID FLO Administration Furosemide 40 mg 07/17/24 09:00 Furosemide 40 Mg Tab PO DAILY [facility] Heparin Sodium (Porcine) 5,000 unit 07/17/24 16:00 Heparin Sodium,Porcine 5,000 Unit/Ml 1 Ml Vial SQ Q8HR [facility] Heparin Sodium (Porcine) 10, 1,001 mls @ 999 mls/hr 07/18/24 07:00 000 unit/ Sodium Chloride IRRIGATION 07/18/24 23:00 ONCE PRN INTRA-OP Heparin Sodium (Porcine) 2,500 250.5 mls @ 250 mls/hr 07/18/24 07:00 unit/ Sodium Chloride IRRIGATION 07/18/24 23:00 ONCE PRN INTRA-OP Sodium Chloride 1,000 ml/ IV 1,000 mls @ 118.7 mls/hr 07/17/24 10:00 Solution IV .Q8H26M [facility] 1 ML/KG/HR Insulin Aspart 0 unit 07/15/24 23:45 07/17/24 06:56 Insulin Aspart (Novolog) 100 Unit/Ml Vial SQ Not Given Q4H [facility] Protocol Insulin Detemir 60 unit 07/16/24 21:00 07/17/24 06:56 Insulin Detemir (Levemir) 100 Unit/Ml Syr SQ 60 unit BID@0700,2100 [facility] Administration Levothyroxine Sodium 300 mcg 07/16/24 06:00 07/17/24 06:56 Levothyroxine 100 Mcg Tab PO 300 mcg DAILY@0600 [facility] Administration Metoprolol Tartrate 50 mg 07/17/24 21:00 Metoprolol Tartrate 50 Mg Tab PO BID [facility] Naloxone HCl 0.2 mg 07/15/24 07:38 Naloxone 0.4 Mg/Ml 1 Ml Vial IV Q2M PRN Opioid Reversal Nitroglycerin 0.4 mg 07/17/24 10:00 Nitroglycerin Sl Tabs 0.4 Mg Tab SUBLINGUAL Q5M PRN Chest Pain Ondansetron HCl 4 mg 07/15/24 07:38 07/16/24 10:39 Ondansetron 4 Mg/2 Ml Vial IVP 4 mg Q8HR PRN Administration Nausea And Vomiting Oxycodone HCl 10 mg 07/16/24 10:00 07/17/24 08:41 Oxycodone Hcl 5 Mg Tab PO 10 mg Q8H PRN Administration Moderate to Severe Pain (4-10) Pantoprazole Sodium 40 mg 07/16/24 10:00 07/17/24 08:34 Pantoprazole 40 Mg/10 Ml Vial IVP 40 mg Q24HR [facility]LO Administration Spironolactone 25 mg 07/17/24 09:00 Spironolactone 25 Mg Tab PO DAILY [facility] Objective - Vital Signs Vital signs: Vital Signs Temp 98.1 F 07/17/24 08:00 Pulse 81 07/17/24 08:00 Resp 16 07/17/24 08:00 BP 130/69 07/17/24 08:00 Pulse Ox 90 L 07/17/24 08:00 FiO2 50 07/16/24 08:00 Intake & Output 07/16/24 07/17/24 07/17/24 18:59 06:59 18:59 Intake Total 216.550 118 Output Total 500 900 Balance -283.450 -782 Weight 118.7 kg Intake: Intake, IV Titration 216.550 Amount Heparin Sod,Pork in 0.45% 216.550 NaCl 25,000 unit In 0.45 % NaCl 1 250ml.bag @ 8 UNITS/KG/HR 10.128 mls/hr IV .Q24H [facility] Rx#: [id number] Oral 118 Output: Urine 500 900 Other: Voiding Method External Catheter External Catheter External Catheter # Voids 1 # Bowel Movements 1 - Exam -GENERAL: The patient is alert and confused, she is on BiPAP not in any acute distress. Obese HEENT: Pupils are round and equally reacting to light. EOMI. No scleral icterus. No conjunctival pallor. Normocephalic, atraumatic. No pharyngeal erythema. No thyromegaly. CARDIOVASCULAR: S1 and S2 present. No murmurs, rubs, or gallops. -PULMONARY: Chest is clear to auscultation, no wheezing , bilateral basal crac kles. ABDOMEN: Soft, nontender, nondistended, normoactive bowel sounds. No palpable organomegaly. MUSCULOSKELETAL: No joint swelling or deformity. EXTREMITIES: No cyanosis, clubbing, or pedal edema. NEUROLOGICAL: Gross neurological examination did not reveal any focal deficits. SKIN: No rashes. no petechiae. - Labs CBC & Chem 7: 07/17/24 06:56 07/17/24 06:56 Labs: Abnormal Lab Results - Last 24 Hours (Table) 07/16/24 07/16/24 07/16/24 Range/Units 11:58 12:34 15:53 RBC (3.80-5.40) m/uL Hgb (11.4-16.0) gm/dL MCV (80.0-100.0) fL MCHC (31.0-37.0) g/dL RDW (11.5-15.5) % APTT 38.8 H (22.0-30.0) sec Sodium (137-145) mmol/L Carbon Dioxide (22-30) mmol/L BUN (7-17) mg/dL Glucose (74-99) mg/dL POC Glucose (mg/dL) 141 H 143 H (70-110) mg/dL Calcium (8.4-10.2) mg/dL 07/16/24 07/16/24 07/16/24 Range/Units 19:33 20:10 23:37 RBC (3.80-5.40) m/uL Hgb (11.4-16.0) gm/dL MCV (80.0-100.0) fL MCHC (31.0-37.0) g/dL RDW (11.5-15.5) % APTT 50.8 H (22.0-30.0) sec Sodium (137-145) mmol/L Carbon Dioxide (22-30) mmol/L BUN (7-17) mg/dL Glucose (74-99) mg/dL POC Glucose (mg/dL) 224 H 203 H (70-110) mg/dL Calcium (8.4-10.2) mg/dL 07/17/24 07/17/24 07/17/24 Range/Units 06:17 06:56 06:56 RBC 3.31 L (3.80-5.40) m/uL Hgb 10.5 L (11.4-16.0) gm/dL MCV 103.5 H (80.0-100.0) fL MCHC 30.7 L (31.0-37.0) g/dL RDW 15.8 H (11.5-15.5) % APTT 45.3 H (22.0-30.0) sec Sodium (137-145) mmol/L Carbon Dioxide (22-30) mmol/L BUN (7-17) mg/dL Glucose (74-99) mg/dL POC Glucose (mg/dL) 145 H (70-110) mg/dL Calcium (8.4-10.2) mg/dL 07/17/24 07/17/24 Range/Units 06:56 11:34 RBC (3.80-5.40) m/uL Hgb (11.4-16.0) gm/dL MCV (80.0-100.0) fL MCHC (31.0-37.0) g/dL RDW (11.5-15.5) % APTT (22.0-30.0) sec Sodium 136 L (137-145) mmol/L Carbon Dioxide 35 H (22-30) mmol/L BUN 29 H (7-17) mg/dL Glucose 111 H (74-99) mg/dL POC Glucose (mg/dL) 207 H (70-110) mg/dL Calcium 8.1 L (8.4-10.2) mg/dL Microbiology - Last 24 Hours (Table) 07/15/24 08:30 Blood Culture - Preliminary Blood Assessment and Plan Assessment: Acute hypoxic respiratory failure Elevated troponin Pulmonary edema, acute CHF, most likely systolic. Pneumonia felt less likely Obesity with BMI of 46.4. Diabetes mellitus Hypertension Hyperlipidemia History of osteoarthritis Hypothyroidism History of pulmonary embolism Plan: Continue with aspirin and Plavix Xanax as needed for anxiety Continue the bronchodilator Oxygen therapy, BiPAP as needed Pulmonary consult Patient is going for cardiac cath Cardiology team consult Labs and medication were reviewed.. Continue same treatment. Continue with symptomatic treatment. Resume home medication. Monitor lytes and vitals. DVT and GI prophylaxis. Further recommendations depends on the clinical course of the patient DVT prophylaxis: Subcutaneous heparin GI Prophylaxis: Pepcid PT/OT: Pending, deferred Prognosis is guarded bipolar disorder
[2024-07-17] MEDS: methylPREDNISolone SOD SUCCI 125 MG/2 ML VIAL IVP ONE (12:10)
[2024-07-17] MEDS: diphenhydrAMINE 50 MG/ML 1 ML VIAL IVP ONE (12:10)
[2024-07-17] MEDS: LIDOCAINE 1% INJ 10MG/ML (20 ML MDV) SQ ONE (12:13)
[2024-07-17] MEDS: VERAPAMIL SYRINGE (5 MG/10 ML) INTRAARTER ONE ×2 (12:16→13:03)
[2024-07-17] MEDS: HEPARIN SODIUM 1,000 UN/ML (10ML VL) IVP ONE ×2 (12:19→12:33)
[2024-07-17] MEDS: SODIUM CHLORIDE 0.9% 1,000 ML IV ONE (12:20)
[2024-07-17] MEDS: HEPARIN SODIUM,PORCINE 10,000 UNIT in SODIUM CHLORIDE 0.9% 1,000 ML IRRIGATION ONE (12:20)
[2024-07-17] MEDS: HEPARIN SODIUM,PORCINE (1 ML) 2,500 UNIT in SODIUM CHLORIDE 0.9% 250 ML IRRIGATION ONE (12:20)
--- NOTE | 2024-07-17 12:20 | P.PN ---
Subjective HISTORY OF PRESENT ILLNESS: This is a 69-year-old female with a past medical history significant for coronary artery disease with previous stenting, hypertension, hyperlipidemia, diabetes, and obesity. Patient follows in the office with Dr. Babcock. We have been asked to see the patient in consultation for elevated troponin. Patient examined at the bedside in the ER. Patient presented to the hospital with a chief complaint of SOB. Patient has been feeling short of breath for the past few days. She is currently on a BiPAP. Her family is at the bedside. Family states that patient has also been complaining of chest pain on and off for the past week. Apparently she has not been taking her Lasix on an outpatient basis. There is also some question regarding if she was compliant with her Plavix. The patient continues to report shortness of breath although states that is improving on the BiPAP. She denies any chest pain or pressure at this time. DIAGNOSTICS: - EKG reveals sinus tachycardia with no signs of acute ischemia - Chest xray small bilateral pleural effusions and atelectasis versus consolidation of left lower lobe. Mild pulmonary edema. No evidence of pneumothorax. - Laboratory data: WBC 9.3. Hemoglobin 10.7. Platelet count 204. Sodium 134. Potassium 4.9. BUN 17. Creatinine 0.88. proBNP 2860. Troponin 0.555. 2.960. - Current home cardiac medications include Plavix 75 mg daily, Zetia 10 mg daily - Most recent echocardiogram obtained in October 2022 revealed ejection fraction 55%, mild TR and mild MR - Cardiac catheterization history: February 2020 with stenting of the LAD. Patient was also found to have moderate disease of the mid RCA. 07/17/2024 Patient examined this morning at the bedside. Patient currently denies chest pain or pressure. She reports improvement in her shortness of breath. She is on nasal cannula. She remains on IV heparin. Cardiogram completed revealing ejection fraction 20 to 25% with akinesia involving mid to distal septum and adjoining anterior apical wall. Possibility of ischemic heart disease or apical ballooning syndrome. PHYSICAL EXAM: VITAL SIGNS: Reviewed. GENERAL: Well-developed in no acute distress. HEENT: Head is normocephalic. Pupils are equal, round. Sclerae anicteric. Mucous membranes of the mouth are moist. Neck supple. No JVD or thyromegaly LUNGS: Respirations even and unlabored. Lungs with decreased breath sounds bilaterally HEART: Regular rate and rhythm. S1 and S2 heard. ABDOMEN: Soft. Nondistended. Nontender. EXTREMITIES: Normal range of motion. No clubbing or cyanosis. Peripheral pulses intact. Bilateral lower extremity edema NEUROLOGIC: Awake and alert. Oriented x 3. ASSESSMENT: Pneumonia Acute hypoxic respiratory failure Non-STEMI Acute on chronic heart failure with reduced EF Coronary artery disease with previous stenting of the LAD Known moderate disease of the RCA New onset cardiomyopathy 2024%, ischemic versus nonischemic, possible Takotsubo Hypertension Hyperlipidemia Diabetes with hyperglycemia Obesity Medication noncompliance PLAN: Discontinue IV heparin Discontinue IV Lasix. Begin oral Lasix 40 mg daily Add Aldactone 25 mg daily Increase metoprolol tartrate to 50 mg twice a day N.p.o. Patient to undergo cardiac catheterization today with Dr. Babcock Further recommendations pending patient course Nurse practitioner note has been reviewed by physician. Signing provider agrees with the documented findings, assessment, and plan of care documented by MANAGER LINE as a scribe. Objective - Vital Signs Vital signs: Vital Signs Temp 98.1 F 07/17/24 08:00 Pulse 81 07/17/24 08:00 Resp 16 07/17/24 08:00 BP 130/69 07/17/24 08:00 Pulse Ox 90 L 07/17/24 08:00 FiO2 50 07/16/24 08:00 Intake & Output 07/16/24 07/17/24 07/17/24 18:59 06:59 18:59 Intake Total 216.550 118 Output Total 500 900 Balance -283.450 -782 Weight 118.7 kg Intake: Intake, IV Titration 216.550 Amount Heparin Sod,Pork in 0.45% 216.550 NaCl 25,000 unit In 0.45 % NaCl 1 250ml.bag @ 8 UNITS/KG/HR 10.128 mls/hr IV .Q24H [facility] Rx#: [id number] Oral 118 Output: Urine 500 900 Other: Voiding Method External Catheter External Catheter External Catheter # Voids 1 # Bowel Movements 1 - Labs CBC & Chem 7: 07/17/24 06:56 07/17/24 06:56 Labs: Abnormal Lab Results - Last 24 Hours (Table) 07/16/24 07/16/24 07/16/24 Range/Units 12:34 15:53 19:33 RBC (3.80-5.40) m/uL Hgb (11.4-16.0) gm/dL MCV (80.0-100.0) fL MCHC (31.0-37.0) g/dL RDW (11.5-15.5) % APTT 38.8 H 50.8 H (22.0-30.0) sec Sodium (137-145) mmol/L Carbon Dioxide (22-30) mmol/L BUN (7-17) mg/dL Glucose (74-99) mg/dL POC Glucose (mg/dL) 143 H (70-110) mg/dL Calcium (8.4-10.2) mg/dL 07/16/24 07/16/24 07/17/24 Range/Units 20:10 23:37 06:17 RBC (3.80-5.40) m/uL Hgb (11.4-16.0) gm/dL MCV (80.0-100.0) fL MCHC (31.0-37.0) g/dL RDW (11.5-15.5) % APTT (22.0-30.0) sec Sodium (137-145) mmol/L Carbon Dioxide (22-30) mmol/L BUN (7-17) mg/dL Glucose (74-99) mg/dL POC Glucose (mg/dL) 224 H 203 H 145 H (70-110) mg/dL Calcium (8.4-10.2) mg/dL 07/17/24 07/17/24 07/17/24 Range/Units 06:56 06:56 06:56 RBC 3.31 L (3.80-5.40) m/uL Hgb 10.5 L (11.4-16.0) gm/dL MCV 103.5 H (80.0-100.0) fL MCHC 30.7 L (31.0-37.0) g/dL RDW 15.8 H (11.5-15.5) % APTT 45.3 H (22.0-30.0) sec Sodium 136 L (137-145) mmol/L Carbon Dioxide 35 H (22-30) mmol/L BUN 29 H (7-17) mg/dL Glucose 111 H (74-99) mg/dL POC Glucose (mg/dL) (70-110) mg/dL Calcium 8.1 L (8.4-10.2) mg/dL 07/17/24 Range/Units 11:34 RBC (3.80-5.40) m/uL Hgb (11.4-16.0) gm/dL MCV (80.0-100.0) fL MCHC (31.0-37.0) g/dL RDW (11.5-15.5) % APTT (22.0-30.0) sec Sodium (137-145) mmol/L Carbon Dioxide (22-30) mmol/L BUN (7-17) mg/dL Glucose (74-99) mg/dL POC Glucose (mg/dL) 207 H (70-110) mg/dL Calcium (8.4-10.2) mg/dL Microbiology - Last 24 Hours (Table) 07/15/24 08:30 Blood Culture - Preliminary Blood
[2024-07-17] MEDS: ASPIRIN 325 MG TAB PO STA (12:40)
[2024-07-17] MEDS: ATORVASTATIN 80 MG TAB PO STA (12:40)
[2024-07-17] MEDS: IOPAMIDOL-370 100ML BTL INJ ONE (12:59)
[2024-07-17] MEDS: CLOPIDOGREL 75 MG TAB PO ONE (13:00)
--- NOTE | 2024-07-17 13:30 | P.PN ---
Subjective Progress Note Date: 07/17/24 Principal diagnosis: Status post fall. This is a 69-year-old female patient with multiple comorbidities including DVT, diabetes mellitus, hypertension, myocardial infarction, congestive heart failure, hypertension, factor V, former smoker. The patient was found down in her bathroom at home earlier this morning. EMS was called and she was blue on arrival and with a 50% O2 saturation. They placed her on nonrebreather and transferred her here. She was then placed on BiPAP 14/6 and 50% FiO2. Arterial blood gases revealed a PaO2 of 72, CO2 of 65 and a pH of 7.23 on 50%. Urine drug screen was positive for oxycodone and benzodiazepines. Troponin initially 0.55 then elevated at 2.96. White count 9.3. Hemoglobin 10.7. Platelets 204. Sodium 134. Potassium 4.9. Bicarb 27. BUN 17. Creatinine 0.88. Glucose 368. proBNP 2860. Viral screen negative. Chest x-ray revealed small bilateral pleural effusion and atelectasis. Mild pulmonary edema. No evidence of pneu mothorax. CT scan of the head revealed no acute intracranial abnormalities. No cervical fractures. CT scan of the chest revealed small bilateral pleural effusions with atelectasis. Mild pulmonary edema. No evidence of acute trauma injury to the abdomen or pelvis. She is seen today in consultation in the emergency department. She remains on BiPAP. She is laying on her left side on the stretcher. She is awake and alert. Family is at the bedside. The patient is seen today July 16, 2024 in follow-up on the regular medical floor. She is currently sitting up in bed. Awake and alert in no acute distress. She is maintaining O2 saturations in the 90s on BiPAP currently 14/6 and 50% FiO2. She denies any significant shortness of breath, cough or congestion. She is still having some abdominal discomfort. Her procalcitonin was negative at 0.27. Zosyn will be discontinued. She remains on a heparin drip. She did rule in for non-ST segment elevation myocardial infarction. She is receiving Lasix 40 mg IV every 12 hours. Chest x-ray showing diminishing bilateral lung infiltrates. Count 11.5. Hemoglobin 11.0. Platelets 218. Sodium 138. Potassium 5.0. Bicarb 33. BUN 25. Creatinine 0.90. Glucose 329. Her hemoglobin A1c is 9.7. Remains on Levemir and Novolog sliding scale. Progress note dated July 17, 2024. The patient is seen today in room 361. He is currently on 3 L oxygen. She is receiving IV heparin. Her ejection fraction by echocardiogram is 20 to 25%. The patient is scheduled to have a cardiac catheterization today. She was admitted with a diagnosis of non-ST segment elevation myocardial infarction. Clinically, the patient remains relatively stable. White count 8.2, hemoglobin 10.5, macro 34.3, and platelet count was normal. PTT of 45.3. Sodium 136, potassium 4.2, chlorides 99, CO2 35, anion gap 2, BUN 29, creatinine 0.93. Objective - Vital Signs Vital signs: Vital Signs Temp 98.1 F 07/17/24 08:00 Pulse 81 07/17/24 08:00 Resp 16 07/17/24 08:00 BP 130/69 07/17/24 08:00 Pulse Ox 90 L 07/17/24 08:00 FiO2 50 07/16/24 08:00 Intake & Output 07/16/24 07/17/24 07/17/24 18:59 06:59 18:59 Intake Total 216.550 343 Output Total 500 900 Balance -283.450 -557 Weight 118.7 kg Intake: IV 225 Intake, IV Titration 216.550 Amount Heparin Sod,Pork in 0.45% 216.550 NaCl 25,000 unit In 0.45 % NaCl 1 250ml.bag @ 8 UNITS/KG/HR 10.128 mls/hr IV .Q24H [facility] Rx#: [id number] Oral 118 Output: Urine 500 900 Other: Voiding Method External Catheter External Catheter External Catheter # Voids 1 # Bowel Movements 1 - Exam No acute distress, oriented 3. HEENT examination is grossly unremarkable. Mucous membranes are moist. No oral lesions. Neck supple. Full range of motion. No adenopathy thyromegaly or neck vein distention. Cardiovascular examination reveals regular rhythm rate. S1-S2 normal. No S3 or S4. No discernible murmur noted. Lungs reveal bibasilar crackles. No wheezes. No rhonchi. Breath sounds equal bilaterally. Abdomen soft bowel sounds are heard. No masses or tenderness. Extremities are intact. Mild lower extremity edema. No cyanosis or clubbing. Skin is without rash or lesion. Neurologic examination is brief but nonfocal. - Labs CBC & Chem 7: 07/17/24 06:56 07/17/24 06:56 Labs: Abnormal Lab Results - Last 24 Hours (Table) 07/16/24 07/16/24 07/16/24 Range/Units 15:53 19:33 20:10 RBC (3.80-5.40) m/uL Hgb (11.4-16.0) gm/dL MCV (80.0-100.0) fL MCHC (31.0-37.0) g/dL RDW (11.5-15.5) % APTT 50.8 H (22.0-30.0) sec Sodium (137-145) mmol/L Carbon Dioxide (22-30) mmol/L BUN (7-17) mg/dL Glucose (74-99) mg/dL POC Glucose (mg/dL) 143 H 224 H (70-110) mg/dL Calcium (8.4-10.2) mg/dL 07/16/24 07/17/24 07/17/24 Range/Units 23:37 06:17 06:56 RBC (3.80-5.40) m/uL Hgb (11.4-16.0) gm/dL MCV (80.0-100.0) fL MCHC (31.0-37.0) g/dL RDW (11.5-15.5) % APTT 45.3 H (22.0-30.0) sec Sodium (137-145) mmol/L Carbon Dioxide (22-30) mmol/L BUN (7-17) mg/dL Glucose (74-99) mg/dL POC Glucose (mg/dL) 203 H 145 H (70-110) mg/dL Calcium (8.4-10.2) mg/dL 07/17/24 07/17/24 07/17/24 Range/Units 06:56 06:56 11:34 RBC 3.31 L (3.80-5.40) m/uL Hgb 10.5 L (11.4-16.0) gm/dL MCV 103.5 H (80.0-100.0) fL MCHC 30.7 L (31.0-37.0) g/dL RDW 15.8 H (11.5-15.5) % APTT (22.0-30.0) sec Sodium 136 L (137-145) mmol/L Carbon Dioxide 35 H (22-30) mmol/L BUN 29 H (7-17) mg/dL Glucose 111 H (74-99) mg/dL POC Glucose (mg/dL) 207 H (70-110) mg/dL Calcium 8.1 L (8.4-10.2) mg/dL Microbiology - Last 24 Hours (Table) 07/15/24 08:30 Blood Culture - Preliminary Blood Assessment and Plan Assessment: Fall at home in her bathroom, unwitnessed. EMS was called and found the patient hypoxemic with O2 saturation in the 50s. Acute hypoxemic respiratory failure suspect secondary to acute exacerbation of chronic systolic congestive heart. Severely impaired left ventricular systolic function with an ejection fraction 20 to 25%. Non-ST elevation myocardial infarction. History of previous myocardial infarction. Coronary artery disease with previous stent placement. Hypertension. Hyperlipidemia. 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 Diabetes mellitus, type II. Former smoker Plan: Plan dated July 17, 2024. The patient is seen today in room 361. She is resting comfortably in bed. She is on 3 L of oxygen. She is also receiving IV heparin. She is scheduled for a heart catheterization today. She was admitted with a diagnosis of non-ST segment elevation myocardial infarction. Her ejection fraction by echocardiogram was 20 to 25%. Overall prognosis remains guarded. Will continue to follow make recommendations along the way. Prognosis is poor. Time with Patient: Less than 30
[2024-07-17 15:53] LABS: Glucose,Whole Blood 268 mg/dL (70-110)
[2024-07-17] MEDS: FUROSEMIDE 40 MG TAB PO SCH (16:28)
[2024-07-17] MEDS: LOSARTAN 25 MG TAB PO SCH (16:28)
[2024-07-17] MEDS: HEPARIN SODIUM,PORCINE 5,000 UNIT/ML 1 ML VIAL SQ SCH (16:28)
[2024-07-17] MEDS: SPIRONOLACTONE 25 MG TAB PO SCH (16:29)
[2024-07-17] MEDS: METOPROLOL TARTRATE 25 MG TAB PO ONE (16:29)
[2024-07-17] MEDS: SODIUM CHLORIDE 0.9% 1,000 ML in EMPTY BAG 1 BAG IV SCH (16:30)
[2024-07-17] MEDS: ALPRAZolam 1 MG TAB PO PRN (17:47)
[2024-07-17] MEDS: SODIUM CHLORIDE 0.9% 1,000 ML IV SCH (17:49)
[2024-07-17 19:52] LABS: Glucose,Whole Blood 318 mg/dL (70-110)
[2024-07-17] MEDS: METOPROLOL TARTRATE 25 MG TAB PO SCH (20:43)
[2024-07-17] MEDS ORDERED: METOPROLOL TARTRATE 50 MG TAB PO SCH (21:00)
--- NOTE | 2024-07-18 01:50 | CC ---
CARDIAC CATHETERIZATION REPORT PROCEDURES: 1. Left heart catheterization and coronary angiography. 2. Intravascular ultrasound of proximal and mid left anterior descending. 3. Percutaneous transluminal coronary angioplasty and stenting of mid left anterior descending, a restenotic lesion with a drug-eluting stent, post dilated by 4.0 caliber NC Trek balloon. PERFORMED BY: Dr. Cem Babcock. ANESTHESIA: Moderate conscious sedation time was 51 minutes. The patient was administered Versed. Oxygen saturation, hemodynamics, and EKG were monitored closely. CLINICAL INFORMATION: Ms. Rosalinda Brothers is a 69-year-old lady who came into the hospital with shortness of breath, was placed on BiPAP, developed respiratory failure, and echocardiogram revealed the base of the ventricle sara rest of the anteroapical, and septal wall was akinetic. The echocardiographic picture was of an apical ballooning syndrome, but the patient had a troponin elevation up to 2.6. After stabilizing her and seen by Dr. Bronson, she was advised cardiac cath and intervention as indicated. PROCEDURE NOTE: Under local anesthesia and strict aseptic precautions with ultrasound guidance, I gained access with a micropuncture needle into the right radial artery. A 6-Swedish introducer was placed. I used a JL3.5 and JR4 catheters, performed coronary angiography and the same right catheter was used to check LV pressures. LV-gram was not performed. Subsequently, I performed intervention of the mid LAD restenotic lesion, which is a 95% lesion. Following this, the sheath was taken out and TR band applied as per protocol with saturation of the fingers of the right hand of about 93%. The patient tolerated the procedure well without complication. She will be on aspirin and Plavix without interruption for 1 year. CARDIAC CATHETERIZATION FINDINGS: The left ventricular end-diastolic pressure was 22 mmHg without any gradient across the aortic valve. CORONARY ANGIOGRAPHY FINDINGS: Right coronary artery: This is a technically dominant vessel, which has mild diffuse disease throughout. Midportion has a 40% narrowing, distally bifurcates into PDA and PLV, both of which have minor irregularities, supplies a fair amount of myocardium. Moderate disease in the dominant RCA. Left main coronary artery: Short patent vessel. No significant disease. Bifurcates to LAD and circumflex. Left anterior descending coronary artery: Good caliber vessel, stented in the midportion. Moderate to heavy calcification noted. Within the stented segment, there is a 95% narrowing, which is a restenotic lesion beyond which the caliber improves, gives off diagonal branch. The distal half of LAD has diffuse disease throughout of about 40% to 50% all the way towards the apex. Left posterior circumflex coronary artery: Nondominant vessel, gives off a first obtuse marginal that has a tight narrowing of about 80% to 90%. Beyond that, circumflex has fair caliber, supplies a fair amount of myocardium. Minor irregularities. No other significant disease. FINAL IMPRESSION: This patient has a right dominant system, elevated filling pressures. No gradient. RCA has a 40% to 45% mid lesion. LAD has a 95% in-stent restenotic lesion in the midportion. Circumflex marginal of a good caliber, has an 80% to 90% lesion that comes off at a very acute angle. Mild diffuse disease in rest of circumflex. RECOMMENDATIONS: I recommended PCI of LAD and proceeded to perform this in the same setting. PCI PROCEDURE DETAILS: I used an XB LAD 3.5 type guide catheter to cannulate the left coronary artery and used a whisper wire to cross the lesion, wire was kept distally. A 3.0 caliber 15 mm long NC Trek balloon was used to pre-dilate the lesion. I then deployed an 18 mm long 3.25 caliber Xience stent and this was deployed at almost 15 atmospheres. I post dilated it with a 3.5 caliber 12 mm NC Trek balloon throughout. I then did an intravascular ultrasound, noted that there was heavy calcification, fairly decent stent expansion with good apposition, but the reference diameter was larger. I then went back with a 4.0 caliber 15 mm long NC Trek balloon and dilated the entire stented segment. Excellent angiographic result was achieved without complication. The sheath was taken out and TR band applied as per protocol. Results were discussed with the patient, , and daughter. She was sent back to the room in a stable condition. We will do staged intervention of the circumflex at a later date. MMODL / IJN: [id number] /
[2024-07-18 03:32] LABS: T4, Free (Free Thyroxine) 1.28 ng/dL (0.78-2.19)
[2024-07-18 06:04] LABS: Glucose,Whole Blood 181 mg/dL (70-110)
[2024-07-18] MEDS ORDERED: HEPARIN SODIUM,PORCINE 10,000 UNIT in SODIUM CHLORIDE 0.9% 1,000 ML IRRIGATION PRN (07:00)
[2024-07-18] MEDS ORDERED: HEPARIN SODIUM,PORCINE (1 ML) 2,500 UNIT in SODIUM CHLORIDE 0.9% 250 ML IRRIGATION PRN (07:00)
--- NOTE | 2024-07-18 10:38 | P.PN ---
Subjective This is a pleasant 69 years old female with past medical history of multiple medical problems. Patient brought to the hospital after her found her sick and dizzy restroom. Patient currently on BiPAP, cannot provide much information and it was obtained with the help of the at bedside. As per patient was not feeling weak for more than a week, she is not eating well, she was using a walker. She has been complaining from cough and increasing breathing difficulty he went to see her PCP Dr. Sy who gave her a shot of antibiotics for bronchitis and ear infection. As per yesterday 8 PM she was fine about 3 to 4 AM he heard her asking for help while in the restroom where she was lying confused and he called 911. As per also she has been complaining of from central chest pain through the week. Currently when I asked the patient she denies any chest pain or abdominal pain. She follows commands but she looks very tired. Also she has been having more cough and phlegm lately. Cannot fully clear per . Patient is non-smoker, no alcohol no illicit drugs. Patient herself denies any abdominal pain or tenderness, no urinary symptoms. She is somewhat hypothermic with temperature 96.9. She is tachycardic 110, tachypneic at 22-24. Blood pressure 155/91 She is on BiPAP with FiO2 of 50% with oxygen saturation 92%. pH 7.2, pCO2 is high 65 and pO2 is low 72 Labs showing WBC 9.3, hemoglobin 10.7. Platelet count is normal. INR is unremarkable. Elevated troponin 0.55 proBNP is elevated 2860. Liver enzymes are unremarkable. Albumin 3.2 Urine drug screen is positive for oxycodone and benzodiazepine, serum alcohol less than 10 Influenza A and type B, RSV, SARS (coronavirus) are un CT of the abdomen and pelvis and chest With contrast showing no acute abnormality. Mild pulmonary edema. There is atelectasis/consolidation in the left lower lobe with mild atelectasis also seen in the right lower lobe base, right middle lobe and lingula Echocardiogram in 2019 showed ejection fraction 40 to 45% EKG showing sinus tachycardia [address]-T changes CT of the head and neck is negative for acute process Pelvic x-ray is negative, chest x-ray reviewed by myself showing bilateral lower lobe infiltrate slightly worse than before 07/16 Patient currently in the ICU but at select overflow Patient this morning is sleepy. She is on BiPAP and tolerates that well Daughter Amie at bedside and states she was awake through the night and currently tired. Vitals look stable. Hemoglobin 11 WBC 11.5 She is currently on IV Lasix 40 mg twice daily Pro- Calcitonin is negative at 0.27. Patient currently on Zosyn Patient also on aspirin and Plavix She will need cardiac cath once she stabilizes 07/17 patient is awake alert, she looks more comfortable, she is more awake No significant chest pain Patient feels anxious, as per family she used to take 2 mg of Xanax 3 times daily. We are going to increase her Xanax to 1 mg every 6 hours as needed Patient is going for cardiac cath today Patient a medically stable to go to cardiac cath although she is at some risk. Heparin drip was discontinued and subcutaneous heparin started She remains on aspirin and Plavix Metoprolol and Aldactone started Oxygen saturation acceptable on 3 to 4 L via nasal cannula 07/18 Patient looks tired She is s/p cardiac cath and PCI to LAD for her non-STEMI No chest pain or dyspnea She is kept on aspirin and Plavix She is requesting her Xanax she takes 2 mg 3 times daily. I explained to her is high risk with risk of respiratory depression and/or explained and she agrees now to 1 extra Xanax dose to 1 mg every 6 hours Objective - Vital Signs Vital signs: Vital Signs Temp 98.1 F 07/18/24 08:00 Pulse 81 07/18/24 08:00 Resp 16 07/18/24 08:00 BP 112/67 07/18/24 08:00 Pulse Ox 91 L 07/18/24 08:00 FiO2 50 07/16/24 08:00 Intake & Output 07/17/24 07/18/24 07/18/24 18:59 06:59 18:59 Intake Total 681 118 Output Total 900 700 Balance -219 -700 118 Intake: IV 225 Oral 456 118 Output: Urine 900 700 Other: Voiding Method External Catheter External Catheter External Catheter # Bowel Movements 1 - Exam -GENERAL: The patient is alert and confused, she is on BiPAP not in any acute distress. Obese HEENT: Pupils are round and equally reacting to light. EOMI. No scleral icterus. No conjunctival pallor. Normocephalic, atraumatic. No pharyngeal erythema. No thyromegaly. CARDIOVASCULAR: S1 and S2 present. No murmurs, rubs, or gallops. -PULMONARY: Chest is clear to auscultation, no wheezing , bilateral basal crackles. ABDOMEN: Soft, nontender, nondistended, normoactive bowel sounds. No palpable organomegaly. MUSCULOSKELETAL: No joint swelling or deformity. EXTREMITIES: No cyanosis, clubbing, or pedal edema. NEUROLOGICAL: Gross neurological examination did not reveal any focal deficits. SKIN: No rashes. no petechiae. - Labs CBC & Chem 7: 07/17/24 06:56 07/17/24 06:56 Labs: Abnormal Lab Results - Last 24 Hours (Table) 07/17/24 07/17/24 07/17/24 Range/Units 06:56 11:34 15:51 POC Glucose (mg/dL) 207 H 268 H (70-110) mg/dL Free T3 pg/mL 1.30 L (2.30-4.20) pg/mL 07/17/24 07/18/24 Range/Units 19:50 06:03 POC Glucose (mg/dL) 318 H 181 H (70-110) mg/dL Free T3 pg/mL (2.30-4.20) pg/mL Microbiology - Last 24 Hours (Table) 07/15/24 08:30 Blood Culture - Preliminary Blood Assessment and Plan Assessment: Acute hypoxic respiratory failure Elevated troponin, non-STEMI s/p cardiac cath and PCI to LAD on 07/17 Pulmonary edema, acute CHF, most likely systolic. Pneumonia felt less likely Obesity with BMI of 46.4. Diabetes mellitus Hypertension Hyperlipidemia History of osteoarthritis Hypothyroidism History of pulmonary embolism Plan: Continue with aspirin and Plavix Xanax as needed for anxiety Continue the bronchodilator Oxygen therapy, BiPAP as needed Pulmonary consult Cardiac cath results reviewed Cardiology team consult Labs and medication were reviewed.. Continue same treatment. Continue with symptomatic treatment. Resume home medication. Monitor lytes and vitals. DVT and GI prophylaxis. Further recommendations depends on the clinical course of the patient DVT prophylaxis: Subcutaneous heparin GI Prophylaxis: Pepcid PT/OT: Pending, deferred Prognosis is guarded bipolar disorder
[2024-07-18 11:33] LABS: Glucose,Whole Blood 375 mg/dL (70-110)
--- NOTE | 2024-07-18 12:34 | P.PN ---
Subjective Patient is doing well. She is resting comfortably in bed. Yesterday she underwent stenting to the LAD. She has no chest discomfort dizziness or lightheadedness On examination her blood pressure is 112/67 mmHg afebrile, pulse rate in the 80s Heart sounds S1-S2 normal no murmurs Breath sounds are clear no rhonchi no crackles No lower extremity edema Impression acute on chronic respiratory failure Morbid obesity Uncontrolled diabetes type 2 Severe cardiomyopathy with congestive heart failure Non-Q wave MD abnormal troponins, Coronary angiography revealed two-vessel disease involving the LAD and left circumflex The LAD was stented yesterday and she is doing well now Plan Staged intervention for the left circumflex Watch renal function Monitor patient's response Continue aspirin, continue atorvastatin and Plavix Continue 40 mg of Lasix once daily Reduced dose of losartan 12.5 mg daily Continue metoprolol 25 mg twice daily Continue spironolactone 25 mg daily along with losartan and beta-blockers for management of severe cardiomyopathy and heart failure Objective - Vital Signs Vital signs: Vital Signs Temp 98.1 F 07/18/24 08:00 Pulse 81 07/18/24 08:00 Resp 16 07/18/24 08:00 BP 112/67 07/18/24 08:00 Pulse Ox 91 L 07/18/24 08:00 FiO2 50 07/16/24 08:00 Intake & Output 07/17/24 07/18/24 07/18/24 18:59 06:59 18:59 Intake Total 681 118 Output Total 900 700 Balance -219 -700 118 Intake: IV 225 Oral 456 118 Output: Urine 900 700 Other: Voiding Method External Catheter External Catheter External Catheter # Bowel Movements 1 - Labs CBC & Chem 7: 07/17/24 06:56 07/17/24 06:56 Labs: Abnormal Lab Results - Last 24 Hours (Table) 07/17/24 07/17/24 07/17/24 Range/Units 06:56 15:51 19:50 POC Glucose (mg/dL) 268 H 318 H (70-110) mg/dL Free T3 pg/mL 1.30 L (2.30-4.20) pg/mL 07/18/24 07/18/24 Range/Units 06:03 11:30 POC Glucose (mg/dL) 181 H 375 H (70-110) mg/dL Free T3 pg/mL (2.30-4.20) pg/mL Microbiology - Last 24 Hours (Table) 07/15/24 08:30 Blood Culture - Preliminary Blood
--- NOTE | 2024-07-18 13:53 | P.PN ---
Subjective Progress Note Date: 07/18/24 Principal diagnosis: Status post fall. This is a 69-year-old female patient with multiple comorbidities including DVT, diabetes mellitus, hypertension, myocardial infarction, congestive heart failure, hypertension, factor V, former smoker. The patient was found down in her bathroom at home earlier this morning. EMS was called and she was blue on arrival and with a 50% O2 saturation. They placed her on nonrebreather and transferred her here. She was then placed on BiPAP 14/6 and 50% FiO2. Arterial blood gases revealed a PaO2 of 72, CO2 of 65 and a pH of 7.23 on 50%. Urine drug screen was positive for oxycodone and benzodiazepines. Troponin initially 0.55 then elevated at 2.96. White count 9.3. Hemoglobin 10.7. Platelets 204. Sodium 134. Potassium 4.9. Bicarb 27. BUN 17. Creatinine 0.88. Glucose 368. proBNP 2860. Viral screen negative. Chest x-ray revealed small bilateral pleural effusion and atelectasis. Mild pulmonary edema. No evidence of pneu mothorax. CT scan of the head revealed no acute intracranial abnormalities. No cervical fractures. CT scan of the chest revealed small bilateral pleural effusions with atelectasis. Mild pulmonary edema. No evidence of acute trauma injury to the abdomen or pelvis. She is seen today in consultation in the emergency department. She remains on BiPAP. She is laying on her left side on the stretcher. She is awake and alert. Family is at the bedside. The patient is seen today July 16, 2024 in follow-up on the regular medical floor. She is currently sitting up in bed. Awake and alert in no acute distress. She is maintaining O2 saturations in the 90s on BiPAP currently 14/6 and 50% FiO2. She denies any significant shortness of breath, cough or congestion. She is still having some abdominal discomfort. Her procalcitonin was negative at 0.27. Zosyn will be discontinued. She remains on a heparin drip. She did rule in for non-ST segment elevation myocardial infarction. She is receiving Lasix 40 mg IV every 12 hours. Chest x-ray showing diminishing bilateral lung infiltrates. Count 11.5. Hemoglobin 11.0. Platelets 218. Sodium 138. Potassium 5.0. Bicarb 33. BUN 25. Creatinine 0.90. Glucose 329. Her hemoglobin A1c is 9.7. Remains on Levemir and Novolog sliding scale. Progress note dated July 17, 2024. The patient is seen today in room 361. He is currently on 3 L oxygen. She is receiving IV heparin. Her ejection fraction by echocardiogram is 20 to 25%. The patient is scheduled to have a cardiac catheterization today. She was admitted with a diagnosis of non-ST segment elevation myocardial infarction. Clinically, the patient remains relatively stable. White count 8.2, hemoglobin 10.5, macro 34.3, and platelet count was normal. PTT of 45.3. Sodium 136, potassium 4.2, chlorides 99, CO2 35, anion gap 2, BUN 29, creatinine 0.93. Progress note dated July 18, 2024. The patient is seen today in room 361. The patient is currently on 4 L of oxygen. The patient is getting saline at 10 cc an hour. The patient apparently did not use the BiPAP device last night. Current labs include a glucose of 181. The patient had a percutaneous coronary intervention, of the LAD, yesterday. The patient apparently tolerated the procedure well. Objective - Vital Signs Vital signs: Vital Signs Temp 97.9 F 07/18/24 12:35 Pulse 68 07/18/24 12:35 Resp 16 07/18/24 12:35 BP 113/66 07/18/24 12:35 Pulse Ox 95 07/18/24 12:35 FiO2 50 07/16/24 08:00 Intake & Output 07/17/24 07/18/24 07/18/24 18:59 06:59 18:59 Intake Total 681 338 Output Total 900 700 Balance -219 -700 338 Intake: IV 225 Oral 456 338 Output: Urine 900 700 Other: Voiding Method External Catheter External Catheter External Catheter # Bowel Movements 1 - Exam No acute distress, oriented 3. The patient is currently on 4 L nasal cannula. No respiratory distress. She is awake and alert. HEENT examination is grossly unremarkable. Mucous membranes are moist. No oral lesions. Neck supple. Full range of motion. No adenopathy thyromegaly or neck vein distention. Cardiovascular examination reveals regular rhythm rate. S1-S2 normal. No S3 or S4. No discernible murmur noted. Lungs reveal bibasilar crackles. No wheezes. No rhonchi. Breath sounds equal bilaterally. Abdomen soft bowel sounds are heard. No masses or tenderness. Extremities are intact. Mild lower extremity edema. No cyanosis or clubbing. Skin is without rash or lesion. Neurologic examination is brief but nonfocal. - Labs CBC & Chem 7: 07/17/24 06:56 07/17/24 06:56 Labs: Abnormal Lab Results - Last 24 Hours (Table) 07/17/24 07/17/24 07/17/24 Range/Units 06:56 15:51 19:50 POC Glucose (mg/dL) 268 H 318 H (70-110) mg/dL Free T3 pg/mL 1.30 L (2.30-4.20) pg/mL 07/18/24 07/18/24 Range/Units 06:03 11:30 POC Glucose (mg/dL) 181 H 375 H (70-110) mg/dL Free T3 pg/mL (2.30-4.20) pg/mL Microbiology - Last 24 Hours (Table) 07/15/24 08:30 Blood Culture - Preliminary Blood Assessment and Plan Assessment: Fall at home in her bathroom, unwitnessed. EMS was called and found the patient hypoxemic with O2 saturation in the 50s. Acute hypoxemic respiratory failure suspect secondary to acute exacerbation of chronic systolic congestive heart. Severely impaired left ventricular systolic function with an ejection fraction 20 to 25%. Non-ST elevation myocardial infarction, S/P PCI of her LAD, on July 17, 2024. History of previous myocardial infarction. Coronary artery disease with previous stent placement. Hypertension. Hyperlipidemia. 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 Diabetes mellitus, type II. Former smoker Plan: Plan dated July 17, 2024. The patient is seen today in room 361. She is resting comfortably in bed. She is on 3 L of oxygen. She is also receiving IV heparin. She is scheduled for a heart catheterization today. She was admitted with a diagnosis of non-ST segment elevation myocardial infarction. Her ejection fraction by echocardiogram was 20 to 25%. Overall prognosis remains guarded. Will continue to follow make recommendations along the way. Prognosis is poor. Plan dated July 18, 2024. The patient is seen today in room 361. The patient is currently on 4 L of oxygen. The patient is getting saline at 10 cc an hour. She did not use a BiPAP device last night. The patient apparently had a stent placed in the LAD, yesterday. It was done by Dr. Babcock. The patient apparently tolerated the procedure well. Labs, x-rays, and medications are reviewed. We will continue to follow for the time being. Time with Patient: Less than 30
[2024-07-18] MEDS: ALPRAZolam 1 MG TAB PO PRN (16:13)
[2024-07-18 16:36] LABS: Glucose,Whole Blood 334 mg/dL (70-110)
[2024-07-18 19:56] LABS: Glucose,Whole Blood 349 mg/dL (70-110)
[2024-07-19 06:11] LABS: Glucose,Whole Blood 210 mg/dL (70-110)
[2024-07-19] MEDS: LOSARTAN 25 MG TAB PO SCH (07:43)
--- NOTE | 2024-07-19 08:33 | P.PN ---
Subjective Progress Note Date: 07/19/24 Principal diagnosis: Status post fall. This is a 69-year-old female patient with multiple comorbidities including DVT, diabetes mellitus, hypertension, myocardial infarction, congestive heart failure, hypertension, factor V, former smoker. The patient was found down in her bathroom at home earlier this morning. EMS was called and she was blue on arrival and with a 50% O2 saturation. They placed her on nonrebreather and transferred her here. She was then placed on BiPAP 14/6 and 50% FiO2. Arterial blood gases revealed a PaO2 of 72, CO2 of 65 and a pH of 7.23 on 50%. Urine drug screen was positive for oxycodone and benzodiazepines. Troponin initially 0.55 then elevated at 2.96. White count 9.3. Hemoglobin 10.7. Platelets 204. Sodium 134. Potassium 4.9. Bicarb 27. BUN 17. Creatinine 0.88. Glucose 368. proBNP 2860. Viral screen negative. Chest x-ray revealed small bilateral pleural effusion and atelectasis. Mild pulmonary edema. No evidence of pneu mothorax. CT scan of the head revealed no acute intracranial abnormalities. No cervical fractures. CT scan of the chest revealed small bilateral pleural effusions with atelectasis. Mild pulmonary edema. No evidence of acute trauma injury to the abdomen or pelvis. She is seen today in consultation in the emergency department. She remains on BiPAP. She is laying on her left side on the stretcher. She is awake and alert. Family is at the bedside. The patient is seen today July 16, 2024 in follow-up on the regular medical floor. She is currently sitting up in bed. Awake and alert in no acute distress. She is maintaining O2 saturations in the 90s on BiPAP currently 14/6 and 50% FiO2. She denies any significant shortness of breath, cough or congestion. She is still having some abdominal discomfort. Her procalcitonin was negative at 0.27. Zosyn will be discontinued. She remains on a heparin drip. She did rule in for non-ST segment elevation myocardial infarction. She is receiving Lasix 40 mg IV every 12 hours. Chest x-ray showing diminishing bilateral lung infiltrates. Count 11.5. Hemoglobin 11.0. Platelets 218. Sodium 138. Potassium 5.0. Bicarb 33. BUN 25. Creatinine 0.90. Glucose 329. Her hemoglobin A1c is 9.7. Remains on Levemir and Novolog sliding scale. Progress note dated July 17, 2024. The patient is seen today in room 361. He is currently on 3 L oxygen. She is receiving IV heparin. Her ejection fraction by echocardiogram is 20 to 25%. The patient is scheduled to have a cardiac catheterization today. She was admitted with a diagnosis of non-ST segment elevation myocardial infarction. Clinically, the patient remains relatively stable. White count 8.2, hemoglobin 10.5, macro 34.3, and platelet count was normal. PTT of 45.3. Sodium 136, potassium 4.2, chlorides 99, CO2 35, anion gap 2, BUN 29, creatinine 0.93. Progress note dated July 18, 2024. The patient is seen today in room 361. The patient is currently on 4 L of oxygen. The patient is getting saline at 10 cc an hour. The patient apparently did not use the BiPAP device last night. Current labs include a glucose of 181. The patient had a percutaneous coronary intervention, of the LAD, yesterday. The patient apparently tolerated the procedure well. Progress note dated July 19, 2024. 69-year-old female who seen today in room 361. The patient currently remains on oxygen, 4 L. She is getting saline at 10 cc an hour. No new labs today other than a glucose of 210. The patient did have a PCI yesterday, and stent placement, in her LAD. The patient tolerated the procedure well. The patient has no new complaints today. She denies any significant shortness of breath, or chest discomfort. Objective - Vital Signs Vital signs: Vital Signs Temp 97.9 F 07/19/24 07:37 Pulse 85 07/19/24 07:37 Resp 20 07/19/24 07:37 BP 138/67 07/19/24 07:37 Pulse Ox 95 07/19/24 07:37 FiO2 50 07/16/24 08:00 Intake & Output 07/18/24 07/19/24 07/19/24 18:59 06:59 18:59 Intake Total 338 Balance 338 Intake: Oral 338 Other: Voiding Method External Catheter External Catheter # Bowel Movements 1 - Exam No acute distress, oriented 3. The patient is currently on 4 L nasal cannula. No respiratory distress. She is awake and alert. HEENT examination is grossly unremarkable. Mucous membranes are moist. No oral lesions. Neck supple. Full range of motion. No adenopathy thyromegaly or neck vein distention. Cardiovascular examination reveals regular rhythm rate. S1-S2 normal. No S3 or S4. No discernible murmur noted. Lungs reveal bibasilar crackles. No wheezes. No rhonchi. Breath sounds equal bilaterally. Abdomen soft bowel sounds are heard. No masses or tenderness. Extremities are intact. Mild lower extremity edema. No cyanosis or clubbing. Skin is without rash or lesion. Neurologic examination is brief but nonfocal. - Labs CBC & Chem 7: 07/17/24 06:56 07/17/24 06:56 Labs: Abnormal Lab Results - Last 24 Hours (Table) 07/17/24 07/18/24 07/18/24 Range/Units 06:56 11:30 16:35 POC Glucose (mg/dL) 375 H 334 H (70-110) mg/dL Free T3 pg/mL 1.30 L (2.30-4.20) pg/mL 07/18/24 07/19/24 Range/Units 19:55 06:10 POC Glucose (mg/dL) 349 H 210 H (70-110) mg/dL Free T3 pg/mL (2.30-4.20) pg/mL Microbiology - Last 24 Hours (Table) 07/15/24 08:30 Blood Culture - Preliminary Blood Assessment and Plan Assessment: Fall at home in her bathroom, unwitnessed. EMS was called and found the patient hypoxemic with O2 saturation in the 50s. Acute hypoxemic respiratory failure suspect secondary to acute exacerbation of chronic systolic congestive heart. Severely impaired left ventricular systolic function with an ejection fraction 20 to 25%. Non-ST elevation myocardial infarction, S/P PCI of her LAD, on July 17, 2024. History of previous myocardial infarction. Coronary artery disease with previous stent placement. Hypertension. Hyperlipidemia. 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 Diabetes mellitus, type II. Former smoker Plan: Plan dated July 17, 2024. The patient is seen today in room 361. She is resting comfortably in bed. She is on 3 L of oxygen. She is also receiving IV heparin. She is scheduled for a heart catheterization today. She was admitted with a diagnosis of non-ST segment elevation myocardial infarction. Her ejection fraction by echocardiogram was 20 to 25%. Overall prognosis remains guarded. Will continue to follow make recommendations along the way. Prognosis is poor. Plan dated July 18, 2024. The patient is seen today in room 361. The patient is currently on 4 L of oxygen. The patient is getting saline at 10 cc an hour. She did not use a BiPAP device last night. The patient apparently had a stent placed in the LAD, yesterday. It was done by Dr. Babcock. The patient apparently tolerated the procedure well. Labs, x-rays, and medications are reviewed. We will continue to follow for the time being. Plan dated July 19, 2024. The patient is seen today in room 361. She remains on O2 at 4 L. The patient has no new complaints. No new labs today as yet. Glucose is 210. All labs, x- rays, and medications are reviewed. The patient did have a stent placed in her LAD, on July 17, by one of the front desk coordinator. The patient denies any resp iratory issues at this time. Will continue to follow the patient, at this time. Prognosis is guarded. Time with Patient: Less than 30
[2024-07-19 11:17] LABS: Glucose,Whole Blood 232 mg/dL (70-110)
[2024-07-19] MEDS: METOPROLOL TARTRATE 25 MG TAB PO STA (11:37)
--- NOTE | 2024-07-19 12:43 | P.PN ---
Subjective Progress Note Date: 07/19/24 69 years old female with past medical history of multiple medical problems. Patient brought to the hospital after her found her sick and dizzy restroom. Patient currently on BiPAP, cannot provide much information and it was obtained with the help of the at bedside. As per patient was not feeling weak for more than a week, she is not eating well, she was using a walker. She has been complaining from cough and increasing breathing difficulty he went to see her PCP Dr. Sy who gave her a shot of antibiotics for bronchitis and ear infection. As per yesterday 8 PM she was fine about 3 to 4 AM he heard her asking for help while in the restroom where she was lying confused and he called 911. As per also she has been complaining of from central chest pain through the week. Currently when I asked the patient she denies any chest pain or abdominal pain. She follows commands but she looks very tired. Also she has been having more cough and phlegm lately. Cannot fully clear per . Patient is non-smoker, no alcohol no illicit drugs. Patient herself denies any abdominal pain or tenderness, no urinary symptoms. She is somewhat hypothermic with temperature 96.9. She is tachycardic 110, tachypneic at 22-24. Blood pressure 155/91 She is on BiPAP with FiO2 of 50% with oxygen saturation 92%. pH 7.2, pCO2 is high 65 and pO2 is low 72 Labs showing WBC 9.3, hemoglobin 10.7. Platelet count is normal. INR is unremarkable. Elevated troponin 0.55 proBNP is elevated 2860. Liver enzymes are unremarkable. Albumin 3.2 Urine drug screen is positive for oxycodone and benzodiazepine, serum alcohol less than 10 Influenza A and type B, RSV, SARS (coronavirus) are un CT of the abdomen and pelvis and chest With contrast showing no acute abnormality. Mild pulmonary edema. There is atelectasis/consolidation in the left lower lobe with mild atelectasis also seen in the right lower lobe base, right middle lobe and lingula Echocardiogram in 2019 showed ejection fraction 40 to 45% EKG showing sinus tachycardia [address]-T changes CT of the head and neck is negative for acute process Pelvic x-ray is negative, chest x-ray reviewed by myself showing bilateral lower lobe infiltrate slightly worse than before 07/16 Patient currently in the ICU but at [facility] overflow Patient this morning is sleepy. She is on BiPAP and tolerates that well Daughter Amie at bedside and states she was awake through the night and currently tired. Vitals look stable. Hemoglobin 11 WBC 11.5 She is currently on IV Lasix 40 mg twice daily Pro- Calcitonin is negative at 0.27. Patient currently on Zosyn Patient also on aspirin and Plavix She will need cardiac cath once she stabilizes 07/17 patient is awake alert, she looks more comfortable, she is more awake No significant chest pain Patient feels anxious, as per family she used to take 2 mg of Xanax 3 times daily. We are going to increase her Xanax to 1 mg every 6 hours as needed Patient is going for cardiac cath today Patient a medically stable to go to cardiac cath although she is at some risk. Heparin drip was discontinued and subcutaneous heparin started She remains on aspirin and Plavix Metoprolol and Aldactone started Oxygen saturation acceptable on 3 to 4 L via nasal cannula 07/18 Patient looks tired She is s/p cardiac cath and PCI to LAD for her non-STEMI No chest pain or dyspnea She is kept on aspirin and Plavix She is requesting her Xanax she takes 2 mg 3 times daily. I explained to her is high risk with risk of respiratory depression and/or explained and she agrees now to 1 extra Xanax dose to 1 mg every 6 hours 07/19 Patient seen and evaluated at bedside, patient accompanied by at bedside, patient states shortness of breath has improved however does complain of insomnia, trazodone resumed QTc reviewed 399 from July 15 PHYSICAL EXAMINATION: GENERAL: The patient is alert and oriented x3, ill appearance, nasal cannula in place HEENT: Pupils are round and equally reacting to light. EOMI. Normocephalic, atraumatic. CARDIOVASCULAR: S1 and S2 present. No murmurs, rubs, or gallops. PULMONARY: Decreased breath sounds bilaterally rhonchi audible ABDOMEN: Soft, nontender, nondistended, normoactive bowel sounds. No palpable organomegaly. MUSCULOSKELETAL: No joint swelling or deformity. EXTREMITIES: 2+ lower extremity edema noted NEUROLOGICAL: Gross neurological examination did not reveal any focal deficits. Objective - Vital Signs Vital signs: Vital Signs Temp 97.9 F 07/19/24 07:37 Pulse 85 07/19/24 07:37 Resp 20 07/19/24 07:37 BP 138/67 07/19/24 07:37 Pulse Ox 95 07/19/24 07:37 FiO2 50 07/16/24 08:00 Intake & Output 07/18/24 07/19/24 07/19/24 18:59 06:59 18:59 Intake Total 338 180 Balance 338 180 Intake: Oral 338 180 Other: Voiding Method External Catheter External Catheter External Catheter # Bowel Movements 1 - Labs CBC & Chem 7: 07/17/24 06:56 07/17/24 06:56 Labs: Abnormal Lab Results - Last 24 Hours (Table) 07/17/24 07/18/24 07/18/24 Range/Units 06:56 11:30 16:35 POC Glucose (mg/dL) 375 H 334 H (70-110) mg/dL Free T3 pg/mL 1.30 L (2.30-4.20) pg/mL 07/18/24 07/19/24 Range/Units 19:55 06:10 POC Glucose (mg/dL) 349 H 210 H (70-110) mg/dL Free T3 pg/mL (2.30-4.20) pg/mL Microbiology - Last 24 Hours (Table) 07/15/24 08:30 Blood Culture - Preliminary Blood Assessment and Plan Assessment: * Acute hypoxic respiratory failure secondary to CHF exacerbation * Elevated troponin, non-STEMI s/p cardiac cath and PCI to LAD on 07/17 * acute on chronic congestive heart failure systolic dysfunction ejection fraction 20 to 25% * s/p fall at home * Obesity with BMI of 46.4. * Diabetes mellitus type II * Hypertension * Hyperlipidemia * History of osteoarthritis * Hypothyroidism * History of pulmonary embolism factor V Leyden history Plan: * in regards to hypoxic respiratory failure patient remains on 4 L of oxygen, seen by pulmonary medicine * in regards to congestive heart failure continue diuretics including Lasix, Aldactone, continue guideline directed medical therapy on losartan and metoprolol * in regards to coronary artery disease s/p PCI continue aspirin and Plavix * in regards to history of anxiety continue Xanax as needed, trazodone resumed * cardiology and pulmonary medicine follow-up * Labs and medication were reviewed.. Further recommendations depends on the clinical course of the patient * DVT prophylaxis: Subcutaneous heparin * GI Prophylaxis: Pepcid * PT/OT: Pending Time with Patient: Greater than 30
--- NOTE | 2024-07-19 12:49 | P.PN ---
Subjective Progress Note Date: 07/19/24 This is Hima Kenney NP, I'm dictating on behalf of Dr. Bronson's H&P and A&P. Patient was interviewed and examined. Patient is a pleasant 69-year-old female who presented to the hospital with acute respiratory failure, patient had abnormal troponins, and underwent stenting to the LAD 2 days ago. Today the patient reports that she is still feeling short of breath. She is otherwise denying chest pain, and heart palpitations. The right wrist where the cath was completed appears intact, with minimal bruising noted. GENERAL: Well-appearing, well-nourished and in no acute distress. NECK: Supple without JVD or thyromegaly. LUNGS: Breath sounds diminished but clear to auscultation bilaterally. Re spiration equal and unlabored. No wheezes, rales or rhonchi. HEART: Regular rate and rhythm without murmurs, rubs or gallops. S1 and S2 heard. EXTREMITIES: Normal range of motion, no edema. No clubbing or cyanosis. Peripheral pulses intact and strong. VITALS: Temp 97.9, pulse 85, respirations 20, blood pressure 138/67, O2 saturation 95% on 4 L TELEMETRY: Sinus mechanism LABS: No new labs since 07/17/2024 IMPRESSION: 1. Acute on chronic respiratory failure 2. Morbid obesity 3. Uncontrolled diabetes type 2 4. Severe cardiomyopathy with congestive heart failure 5. Non-Q wave [place], abnormal troponins 6. Coronary angiography revealed two-vessel disease involving the LAD and left circumflex 7. Post LAD stent PLAN: Increase metoprolol to 50 mg twice daily. Give 25 mg one-time today. Please get patient out of bed and into chair. Continue other current medications as prescribed. Further recommendations based on patient's clinical course. Objective - Vital Signs Vital signs: Vital Signs Temp 97.9 F 07/19/24 07:37 Pulse 71 07/19/24 11:24 Resp 20 07/19/24 11:24 BP 135/74 07/19/24 11:24 Pulse Ox 96 07/19/24 11:24 FiO2 50 07/16/24 08:00 Intake & Output 07/18/24 07/19/24 07/19/24 18:59 06:59 18:59 Intake Total 338 180 Balance 338 180 Intake: Oral 338 180 Other: Voiding Method External Catheter External Catheter External Catheter # Bowel Movements 1 - Labs CBC & Chem 7: 07/17/24 06:56 07/17/24 06:56 Labs: Abnormal Lab Results - Last 24 Hours (Table) 07/18/24 07/18/24 07/19/24 Range/Units 16:35 19:55 06:10 POC Glucose (mg/dL) 334 H 349 H 210 H (70-110) mg/dL 07/19/24 Range/Units 11:15 POC Glucose (mg/dL) 232 H (70-110) mg/dL Microbiology - Last 24 Hours (Table) 07/15/24 08:30 Blood Culture - Preliminary Blood
[2024-07-19 16:25] LABS: Glucose,Whole Blood 299 mg/dL (70-110)
[2024-07-19] MEDS: METOPROLOL TARTRATE 50 MG TAB PO SCH (19:53)
[2024-07-19] MEDS: traZODone HCL 100 MG TAB PO SCH (19:53)
[2024-07-19 19:59] LABS: Glucose,Whole Blood 344 mg/dL (70-110)
[2024-07-20 06:19] LABS: Glucose,Whole Blood 137 mg/dL (70-110)
[2024-07-20 07:15] LABS: HCT 35.2 % (34.0-46.0); HGB 10.7 gm/dL (11.4-16.0); Hypochromasia Marked; MCH 31.5 pg (25.0-35.0); MCHC 30.3 g/dL (31.0-37.0); Macrocytosis Moderate; Mean Platelet Volume 9.5; Platelet Count 173 k/uL (150-450); RBC 3.39 m/uL (3.80-5.40); RDW 15.7 % (11.5-15.5); WBC 7.8 k/uL (3.8-10.6)
[2024-07-20 07:30] LABS: African American GFR (CKD) 65 (>60 ml/min/1.73 sqM); Anion Gap 2 mmol/L; Blood Urea Nitrogen 24 mg/dL (7-17); Calcium 8.2 mg/dL (8.4-10.2); Carbon Dioxide 40 mmol/L (22-30); Chloride 97 mmol/L (98-107); Glucose 135 mg/dL (74-99); Non-African American GFR(CKD) 56 (>60 ml/min/1.73 sqM); Potassium 4.9 mmol/L (3.5-5.1); Sodium 139 mmol/L (137-145)
[2024-07-20 07:35] LABS: NT-Pro-B-Type Natriuretic Pept 4880 pg/mL
--- NOTE | 2024-07-20 11:25 | P.PN ---
Subjective Progress Note Date: 07/20/24 Principal diagnosis: Status post fall. This is a 69-year-old female patient with multiple comorbidities including DVT, diabetes mellitus, hypertension, myocardial infarction, congestive heart failure, hypertension, factor V, former smoker. The patient was found down in her bathroom at home earlier this morning. EMS was called and she was blue on arrival and with a 50% O2 saturation. They placed her on nonrebreather and transferred her here. She was then placed on BiPAP 14/6 and 50% FiO2. Arterial blood gases revealed a PaO2 of 72, CO2 of 65 and a pH of 7.23 on 50%. Urine drug screen was positive for oxycodone and benzodiazepines. Troponin initially 0.55 then elevated at 2.96. White count 9.3. Hemoglobin 10.7. Platelets 204. Sodium 134. Potassium 4.9. Bicarb 27. BUN 17. Creatinine 0.88. Glucose 368. proBNP 2860. Viral screen negative. Chest x-ray revealed small bilateral pleural effusion and atelectasis. Mild pulmonary edema. No evidence of pneu mothorax. CT scan of the head revealed no acute intracranial abnormalities. No cervical fractures. CT scan of the chest revealed small bilateral pleural effusions with atelectasis. Mild pulmonary edema. No evidence of acute trauma injury to the abdomen or pelvis. She is seen today in consultation in the emergency department. She remains on BiPAP. She is laying on her left side on the stretcher. She is awake and alert. Family is at the bedside. The patient is seen today July 16, 2024 in follow-up on the regular medical floor. She is currently sitting up in bed. Awake and alert in no acute distress. She is maintaining O2 saturations in the 90s on BiPAP currently 14/6 and 50% FiO2. She denies any significant shortness of breath, cough or congestion. She is still having some abdominal discomfort. Her procalcitonin was negative at 0.27. Zosyn will be discontinued. She remains on a heparin drip. She did rule in for non-ST segment elevation myocardial infarction. She is receiving Lasix 40 mg IV every 12 hours. Chest x-ray showing diminishing bilateral lung infiltrates. Count 11.5. Hemoglobin 11.0. Platelets 218. Sodium 138. Potassium 5.0. Bicarb 33. BUN 25. Creatinine 0.90. Glucose 329. Her hemoglobin A1c is 9.7. Remains on Levemir and Novolog sliding scale. Progress note dated July 17, 2024. The patient is seen today in room 361. He is currently on 3 L oxygen. She is receiving IV heparin. Her ejection fraction by echocardiogram is 20 to 25%. The patient is scheduled to have a cardiac catheterization today. She was admitted with a diagnosis of non-ST segment elevation myocardial infarction. Clinically, the patient remains relatively stable. White count 8.2, hemoglobin 10.5, macro 34.3, and platelet count was normal. PTT of 45.3. Sodium 136, potassium 4.2, chlorides 99, CO2 35, anion gap 2, BUN 29, creatinine 0.93. Progress note dated July 18, 2024. The patient is seen today in room 361. The patient is currently on 4 L of oxygen. The patient is getting saline at 10 cc an hour. The patient apparently did not use the BiPAP device last night. Current labs include a glucose of 181. The patient had a percutaneous coronary intervention, of the LAD, yesterday. The patient apparently tolerated the procedure well. Progress note dated July 19, 2024. 69-year-old female who seen today in room 361. The patient currently remains on oxygen, 4 L. She is getting saline at 10 cc an hour. No new labs today other than a glucose of 210. The patient did have a PCI yesterday, and stent placement, in her LAD. The patient tolerated the procedure well. The patient has no new complaints today. She denies any significant shortness of breath, or chest discomfort. Current labs include a white count 7.8, hemoglobin 10.7, hematocrit 35.2, and a normal platelet count. Sodium 139, potassium 4.9, chlorides 97, CO2 40, BUN 24, creatinine 1.02. Calcium is 8.2. N-terminal proBNP is elevated at 4880. Objective - Vital Signs Vital signs: Vital Signs Temp 98.1 F 07/20/24 09:07 Pulse 73 07/20/24 09:07 Resp 18 07/20/24 09:07 BP 127/69 07/20/24 09:07 Pulse Ox 95 07/20/24 09:07 FiO2 50 07/16/24 08:00 Intake & Output 07/19/24 07/20/24 07/20/24 18:59 06:59 18:59 Intake Total 540 540 180 Output Total 1000 1000 Balance -460 -460 180 Intake: Oral 540 540 180 Output: Urine 1000 1000 Other: Voiding Method External Catheter External Catheter External Catheter - Exam No acute distress, oriented 3. The patient is currently on 2 L nasal cannula. No respiratory distress. She is awake and alert. HEENT examination is grossly unremarkable. Mucous membranes are moist. No oral lesions. Neck supple. Full range of motion. No adenopathy thyromegaly or neck vein distention. Cardiovascular examination reveals regular rhythm rate. S1-S2 normal. No S3 or S4. No discernible murmur noted. Lungs reveal bibasilar crackles. No wheezes. No rhonchi. Breath sounds equal bilaterally. Abdomen soft bowel sounds are heard. No masses or tenderness. Extremities are intact. Mild lower extremity edema. No cyanosis or clubbing. Skin is without rash or lesion. Neurologic examination is brief but nonfocal. - Labs CBC & Chem 7: 07/20/24 06:35 07/20/24 06:35 Labs: Abnormal Lab Results - Last 24 Hours (Table) 07/19/24 07/19/24 07/20/24 Range/Units 16:23 19:58 06:17 RBC (3.80-5.40) m/uL Hgb (11.4-16.0) gm/dL MCV (80.0-100.0) fL MCHC (31.0-37.0) g/dL RDW (11.5-15.5) % Chloride (98-107) mmol/L Carbon Dioxide (22-30) mmol/L BUN (7-17) mg/dL Glucose (74-99) mg/dL POC Glucose (mg/dL) 299 H 344 H 137 H (70-110) mg/dL Calcium (8.4-10.2) mg/dL 07/20/24 07/20/24 Range/Units 06:35 06:35 RBC 3.39 L (3.80-5.40) m/uL Hgb 10.7 L (11.4-16.0) gm/dL MCV 104.0 H (80.0-100.0) fL MCHC 30.3 L (31.0-37.0) g/dL RDW 15.7 H (11.5-15.5) % Chloride 97 L (98-107) mmol/L Carbon Dioxide 40 H (22-30) mmol/L BUN 24 H (7-17) mg/dL Glucose 135 H (74-99) mg/dL POC Glucose (mg/dL) (70-110) mg/dL Calcium 8.2 L (8.4-10.2) mg/dL Assessment and Plan Assessment: Fall at home in her bathroom, unwitnessed. EMS was called and found the patient hypoxemic with O2 saturation in the 50s. Acute hypoxemic respiratory failure suspect secondary to acute exacerbation of chronic systolic congestive heart. Severely impaired left ventricular systolic function with an ejection fraction 20 to 25%. Non-ST elevation myocardial infarction, S/P PCI of her LAD, on July 17, 2024. History of previous myocardial infarction. Coronary artery disease with previous stent placement. Hypertension. Hyperlipidemia. 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 Diabetes mellitus, type II. Former smoker Plan: Plan dated July 17, 2024. The patient is seen today in room 361. She is resting comfortably in bed. She is on 3 L of oxygen. She is also receiving IV heparin. She is scheduled for a heart catheterization today. She was admitted with a diagnosis of non-ST segment elevation myocardial infarction. Her ejection fraction by echocardio gram was 20 to 25%. Overall prognosis remains guarded. Will continue to follow make recommendations along the way. Prognosis is poor. Plan dated July 18, 2024. The patient is seen today in room 361. The patient is currently on 4 L of oxygen. The patient is getting saline at 10 cc an hour. She did not use a BiPAP device last night. The patient apparently had a stent placed in the LAD, yesterday. It was done by Dr. Babcock. The patient apparently tolerated the procedure well. Labs, x-rays, and medications are reviewed. We will continue to follow for the time being. Plan dated July 19, 2024. The patient is seen today in room 361. She remains on O2 at 4 L. The patient has no new complaints. No new labs today as yet. Glucose is 210. All labs, x- rays, and medications are reviewed. The patient did have a stent placed in her LAD, on July 17, by one of the fiction and nonfiction writer prose. The patient denies any respiratory issues at this time. Will continue to follow the patient, at this time. Prognosis is guarded. Plan dated July 19, 2024. The patient is seen today in room 361. She appears to be doing relatively well. She is awake and alert. She is comfortable. No respiratory distress. No specific complaints. Labs, x-rays, and all medications are reviewed. She does continue on nasal O2 at 2 L. We will continue to follow. Prognosis is guarded. Time with Patient: Less than 30
[2024-07-20 11:32] LABS: Glucose,Whole Blood 234 mg/dL (70-110)
--- NOTE | 2024-07-20 11:46 | P.PN ---
Subjective Progress Note Date: 07/20/24 This is Hima Kenney NP, I'm dictating on behalf of Dr. Bronson's H&P and A&P. Patient was interviewed and examined. Patient is a pleasant 69-year-old female who presented to the hospital with acute respiratory failure, abnormal troponins, and underwent stenting to the LAD 3 days ago. Patient today reports that she is feeling a little bit better. She reports that her breathing is better. Patient was up to the chair yesterday for approximately 3 hours, she states that she did experience some mild dizziness during that time. Today she is otherwise denying chest pain, heart palpitation s, and dizziness. GENERAL: Well-appearing, well-nourished and in no acute distress. NECK: Supple without JVD or thyromegaly. LUNGS: Breath sounds clear to auscultation bilaterally. Respiration equal and unlabored. No wheezes, rales or rhonchi. HEART: Regular rate and rhythm without murmurs, rubs or gallops. S1 and S2 heard. EXTREMITIES: Normal range of motion, no edema. No clubbing or cyanosis. Peripheral pulses intact and strong. VITALS: Temp 98.1, pulse 73, respirations 18, blood pressure 127/69, O2 saturation 95% on 4 L TELEMETRY: Sinus mechanism LABS: White count 7.8, hemoglobin 10.7, platelet 173, sodium 139, potassium 4.9, BUN 24, creatinine 1.02, BNP 4880 IMPRESSION: 1. Acute on chronic respiratory failure 2. Morbid obesity 3. Uncontrolled diabetes type 2 4. Severe cardiomyopathy with congestive heart failure 5. Non-Q wave [place], abnormal troponins 6. Coronary angiography revealed two-vessel disease involving the LAD and left circumflex 7. Post LAD stent PLAN: Give additional dose of Lasix 40 mg p.o. once this afternoon. Continue current medications as prescribed. Further recommendations based on patient's clinical course. Objective - Vital Signs Vital signs: Vital Signs Temp 98.1 F 07/20/24 09:07 Pulse 73 07/20/24 09:07 Resp 18 07/20/24 09:07 BP 127/69 07/20/24 09:07 Pulse Ox 95 07/20/24 09:07 FiO2 50 07/16/24 08:00 Intake & Output 07/19/24 07/20/24 07/20/24 18:59 06:59 18:59 Intake Total 540 540 180 Output Total 1000 1000 Balance -460 -460 180 Intake: Oral 540 540 180 Output: Urine 1000 1000 Other: Voiding Method External Catheter External Catheter External Catheter - Labs CBC & Chem 7: 07/20/24 06:35 07/20/24 06:35 Labs: Abnormal Lab Results - Last 24 Hours (Table) 07/19/24 07/19/24 07/20/24 Range/Units 16:23 19:58 06:17 RBC (3.80-5.40) m/uL Hgb (11.4-16.0) gm/dL MCV (80.0-100.0) fL MCHC (31.0-37.0) g/dL RDW (11.5-15.5) % Chloride (98-107) mmol/L Carbon Dioxide (22-30) mmol/L BUN (7-17) mg/dL Glucose (74-99) mg/dL POC Glucose (mg/dL) 299 H 344 H 137 H (70-110) mg/dL Calcium (8.4-10.2) mg/dL 07/20/24 07/20/24 07/20/24 Range/Units 06:35 06:35 11:30 RBC 3.39 L (3.80-5.40) m/uL Hgb 10.7 L (11.4-16.0) gm/dL MCV 104.0 H (80.0-100.0) fL MCHC 30.3 L (31.0-37.0) g/dL RDW 15.7 H (11.5-15.5) % Chloride 97 L (98-107) mmol/L Carbon Dioxide 40 H (22-30) mmol/L BUN 24 H (7-17) mg/dL Glucose 135 H (74-99) mg/dL POC Glucose (mg/dL) 234 H (70-110) mg/dL Calcium 8.2 L (8.4-10.2) mg/dL
[2024-07-20] MEDS: FUROSEMIDE 40 MG TAB PO ONE (12:02)
--- NOTE | 2024-07-20 12:02 | P.PN ---
Subjective Progress Note Date: 07/20/24 69 years old female with past medical history of multiple medical problems. Patient brought to the hospital after her found her sick and dizzy restroom. Patient currently on BiPAP, cannot provide much information and it was obtained with the help of the at bedside. As per patient was not feeling weak for more than a week, she is not eating well, she was using a walker. She has been complaining from cough and increasing breathing difficulty he went to see her PCP Dr. Sy who gave her a shot of antibiotics for bronchitis and ear infection. As per yesterday 8 PM she was fine about 3 to 4 AM he heard her asking for help while in the restroom where she was lying confused and he called 911. As per also she has been complaining of from central chest pain through the week. Currently when I asked the patient she denies any chest pain or abdominal pain. She follows commands but she looks very tired. Also she has been having more cough and phlegm lately. Cannot fully clear per . Patient is non-smoker, no alcohol no illicit drugs. Patient herself denies any abdominal pain or tenderness, no urinary symptoms. She is somewhat hypothermic with temperature 96.9. She is tachycardic 110, tachypneic at 22-24. Blood pressure 155/91 She is on BiPAP with FiO2 of 50% with oxygen saturation 92%. pH 7.2, pCO2 is high 65 and pO2 is low 72 Labs showing WBC 9.3, hemoglobin 10.7. Platelet count is normal. INR is unremarkable. Elevated troponin 0.55 proBNP is elevated 2860. Liver enzymes are unremarkable. Albumin 3.2 Urine drug screen is positive for oxycodone and benzodiazepine, serum alcohol less than 10 Influenza A and type B, RSV, SARS (coronavirus) are un CT of the abdomen and pelvis and chest With contrast showing no acute abnormality. Mild pulmonary edema. There is atelectasis/consolidation in the left lower lobe with mild atelectasis also seen in the right lower lobe base, right middle lobe and lingula Echocardiogram in 2019 showed ejection fraction 40 to 45% EKG showing sinus tachycardia [address]-T changes CT of the head and neck is negative for acute process Pelvic x-ray is negative, chest x-ray reviewed by myself showing bilateral lower lobe infiltrate slightly worse than before 07/16 Patient currently in the ICU but at [facility] overflow Patient this morning is sleepy. She is on BiPAP and tolerates that well Daughter Amie at bedside and states she was awake through the night and currently tired. Vitals look stable. Hemoglobin 11 WBC 11.5 She is currently on IV Lasix 40 mg twice daily Pro- Calcitonin is negative at 0.27. Patient currently on Zosyn Patient also on aspirin and Plavix She will need cardiac cath once she stabilizes 07/17 patient is awake alert, she looks more comfortable, she is more awake No significant chest pain Patient feels anxious, as per family she used to take 2 mg of Xanax 3 times daily. We are going to increase her Xanax to 1 mg every 6 hours as needed Patient is going for cardiac cath today Patient a medically stable to go to cardiac cath although she is at some risk. Heparin drip was discontinued and subcutaneous heparin started She remains on aspirin and Plavix Metoprolol and Aldactone started Oxygen saturation acceptable on 3 to 4 L via nasal cannula 07/18 Patient looks tired She is s/p cardiac cath and PCI to LAD for her non-STEMI No chest pain or dyspnea She is kept on aspirin and Plavix She is requesting her Xanax she takes 2 mg 3 times daily. I explained to her is high risk with risk of respiratory depression and/or explained and she agrees now to 1 extra Xanax dose to 1 mg every 6 hours 07/19 Patient seen and evaluated at bedside, patient accompanied by at bedside, patient states shortness of breath has improved however does complain of insomnia, trazodone resumed QTc reviewed 399 from July 1507/20- patient seen and evaluated at bedside, remains on 4 L of oxygen and blood pressure remained stable afebrile. hemoglobin 10.7 remains stable, serum chemistry reviewed creatinine 1.02 blood glucose 137, sodium of 139 potassium 4.9. Patient does complain of insomnia however was resumed back on trazodone PHYSICAL EXAMINATION: GENERAL: The patient is alert and oriented x3, ill appearance, nasal cannula in place HEENT: Pupils are round and equally reacting to light. EOMI. Normocephalic, atraumatic. CARDIOVASCULAR: S1 and S2 present. No murmurs, rubs, or gallops. PULMONARY: Decreased breath sounds bilaterally rhonchi audible ABDOMEN: Soft, nontender, nondistended, normoactive bowel sounds. No palpable organomegaly. MUSCULOSKELETAL: No joint swelling or deformity. EXTREMITIES: 2+ lower extremity edema noted NEUROLOGICAL: Gross neurological examination did not reveal any focal deficits. Objective - Vital Signs Vital signs: Vital Signs Temp 98.1 F 07/20/24 09:07 Pulse 73 07/20/24 09:07 Resp 18 07/20/24 09:07 BP 127/69 07/20/24 09:07 Pulse Ox 95 07/20/24 09:07 FiO2 50 07/16/24 08:00 Intake & Output 07/19/24 07/20/24 07/20/24 18:59 06:59 18:59 Intake Total 540 540 Output Total 1000 1000 Balance -460 -460 Intake: Oral 540 540 Output: Urine 1000 1000 Other: Voiding Method External Catheter External Catheter - Labs CBC & Chem 7: 07/20/24 06:35 07/20/24 06:35 Labs: Abnormal Lab Results - Last 24 Hours (Table) 07/19/24 07/19/24 07/19/24 Range/Units 11:15 16:23 19:58 RBC (3.80-5.40) m/uL Hgb (11.4-16.0) gm/dL MCV (80.0-100.0) fL MCHC (31.0-37.0) g/dL RDW (11.5-15.5) % Chloride (98-107) mmol/L Carbon Dioxide (22-30) mmol/L BUN (7-17) mg/dL Glucose (74-99) mg/dL POC Glucose (mg/dL) 232 H 299 H 344 H (70-110) mg/dL Calcium (8.4-10.2) mg/dL 07/20/24 07/20/24 07/20/24 Range/Units 06:17 06:35 06:35 RBC 3.39 L (3.80-5.40) m/uL Hgb 10.7 L (11.4-16.0) gm/dL MCV 104.0 H (80.0-100.0) fL MCHC 30.3 L (31.0-37.0) g/dL RDW 15.7 H (11.5-15.5) % Chloride 97 L (98-107) mmol/L Carbon Dioxide 40 H (22-30) mmol/L BUN 24 H (7-17) mg/dL Glucose 135 H (74-99) mg/dL POC Glucose (mg/dL) 137 H (70-110) mg/dL Calcium 8.2 L (8.4-10.2) mg/dL Assessment and Plan Assessment: * Acute hypoxic respiratory failure secondary to CHF exacerbation * Elevated troponin, non-STEMI s/p cardiac cath and PCI to LAD on 07/17 * acute on chronic congestive heart failure systolic dysfunction ejection fraction 20 to 25% * s/p fall at home * Obesity with BMI of 46.4. * Diabetes mellitus type II * Hypertension * Hyperlipidemia * History of osteoarthritis * Hypothyroidism * History of pulmonary embolism factor V [place] history Plan: * in regards to hypoxic respiratory failure patient remains on 4 L of oxygen, seen by pulmonary medicine * in regards to congestive heart failure continue diuretics including Lasix, Aldactone, continue guideline directed medical therapy on losartan and metoprolol * in regards to coronary artery disease s/p PCI continue aspirin and Plavix * in regards to history of anxiety continue Xanax as needed, trazodone resumed * cardiology and pulmonary medicine follow-up * Labs and medication were reviewed.. Further recommendations depends on the clinical course of the patient * DVT prophylaxis: Subcutaneous heparin * GI Prophylaxis: Pepcid * PT/OT: to be determined discharge disposition Time with Patient: Greater than 30
[2024-07-20 16:12] LABS: Glucose,Whole Blood 273 mg/dL (70-110)
[2024-07-20 20:16] LABS: Glucose,Whole Blood 258 mg/dL (70-110)
[2024-07-20] MEDS: INSULIN ASPART (NovoLOG) 100 UNIT/ML VIAL SQ SCH (20:32)
[2024-07-20] MEDS ORDERED: IPRATROPIUM-ALBUTEROL 3 ML NEB INHALATION PRN (22:43)
[2024-07-20] MEDS ORDERED: ALBUTEROL HFA INHALER INHALATION PRN (22:55)
[2024-07-21 00:09] LABS: Glucose,Whole Blood 190 mg/dL (70-110)
[2024-07-21 05:49] LABS: Glucose,Whole Blood 213 mg/dL (70-110)
[2024-07-21 06:17] LABS: HGB 10.8 gm/dL (11.4-16.0); Hypochromasia Marked; MCH 31.3 pg (25.0-35.0); MCHC 30.7 g/dL (31.0-37.0); MCV 101.8 fL (80.0-100.0); Macrocytosis Slight; Mean Platelet Volume 8.9; Platelet Count 157 k/uL (150-450); RBC 3.44 m/uL (3.80-5.40); RDW 15.6 % (11.5-15.5); WBC 7.9 k/uL (3.8-10.6)
[2024-07-21 06:32] LABS: African American GFR (CKD) 60 (>60 ml/min/1.73 sqM); Anion Gap 1 mmol/L; Blood Urea Nitrogen 27 mg/dL (7-17); Carbon Dioxide 38 mmol/L (22-30); Chloride 96 mmol/L (98-107); Glucose 189 mg/dL (74-99); Non-African American GFR(CKD) 52 (>60 ml/min/1.73 sqM); Sodium 135 mmol/L (137-145)
--- NOTE | 2024-07-21 10:15 | XR ---
EXAMINATION TYPE: XR chest 1V portable DATE OF EXAM: 07/21/2024 10:08 AM COMPARISON: Chest radiographs from: 24 TECHNIQUE: XR chest 1V portable Portable AP radiograph of the chest. CLINICAL INDICATION:Female, 69 years old with history of Hypoxia; FINDINGS: Lungs/Pleura: No pneumothorax. Blunting of the left costophrenic angle. Bibasilar patchy airspace opa cities. Pulmonary vascularity: Pulmonary vascular congestion. Heart/mediastinum: Cardiomediastinal silhouette is partially obscured due to overlying and adjacent o pacities. Musculoskeletal: No acute osseous pathology. IMPRESSION: Cardiomegaly, pulmonary vascular congestion and small left pleural effusion. Correlate with BNP for c ongestive heart failure. Bibasilar patchy airspace opacities which may represent atelectasis versus s uperimposed pneumonia in the appropriate clinical setting. [facility], , 07/21/2024 10:13 AM
[2024-07-21 11:22] VITALS: BMI 43.4
[2024-07-21 11:27] LABS: Glucose,Whole Blood 179 mg/dL (70-110)
[2024-07-21] MEDS: FUROSEMIDE 10 MG/ML 2 ML VIAL IV ONE (12:40)
--- NOTE | 2024-07-21 14:07 | P.PN ---
Subjective Progress Note Date: 07/21/24 Patient is a pleasant 69-year-old female who presented to the hospital with acute respiratory failure, abnormal troponins, and underwent stenting to the LAD 3 days ago. Patient today reports that she is feeling a little bit better. She reports that her breathing is better. Patient was up to the chair yesterday for approximately 3 hours, she states that she did experience some mild dizziness during that time. Today she is otherwise denying chest pain, heart palpitations, and dizziness. VITALS: Temp 98.1, pulse 73, respirations 18, blood pressure 127/69, O2 saturation 95% on 4 L TELEMETRY: Sinus mechanism LABS: White count 7.8, hemoglobin 10.7, platelet 173, sodium 139, potassium 4.9, BUN 24, creatinine 1.02, BNP 4880 07/21/2024 Patient seen and examined. Patient denies having any chest pain or shortness of breath. She states that she cannot get up. Patient apparently has not been out of bed. She appears to be quite weak. Blood pressure 110/54, heart rate 62, pulse ox 93% on 2 L nasal cannula. Repeat blood work reveals hemoglobin 10.8, BUN 27 creatinine 1.08. Repeat chest x-ray reveals cardiomegaly, pulmonary vascular congestion and small left pleural effusion. GENERAL: Well-appearing, well-nourished and in no acute distress. NECK: Supple without JVD or thyromegaly. LUNGS: Breath sounds clear to auscultation bilaterally. Respiration equal and unlabored. No wheezes, rales or rhonchi. HEART: Regular rate and rhythm without murmurs, rubs or gallops. S1 and S2 h eard. EXTREMITIES: Normal range of motion, no edema. No clubbing or cyanosis. Peripheral pulses intact and strong. IMPRESSION: 1. Acute on chronic respiratory failure 2. Morbid obesity 3. Uncontrolled diabetes type 2 4. Severe cardiomyopathy with congestive heart failure 5. Non-Q wave [place], abnormal troponins 6. Coronary angiography revealed two-vessel disease involving the LAD and left circumflex 7. Post LAD stent PLAN: LifeVest will be ordered for the patient prior to discharge. Continue current medications as prescribed: Aspirin 81 mg daily, Lipitor 80 mg daily, Plavix 75 mg daily Continue patient on Lasix 40 mg daily, Cozaar 12.5 mg daily, Lopressor 50 mg twice daily, Aldactone 25 mg daily. Continue to monitor patient for another 12 to 24 hours Further recommendations based on patient's clinical course. Nurse practitioner note has been reviewed, I agree with documented findings and plan of care. Patient was seen and examined. Objective - Vital Signs Vital signs: Vital Signs Temp 98.1 F 07/21/24 08:52 Pulse 71 07/21/24 08:52 Resp 18 07/21/24 08:52 BP 117/68 07/21/24 08:52 Pulse Ox 94 L 07/21/24 09:04 FiO2 50 07/16/24 08:00 Intake & Output 07/20/24 07/21/24 07/21/24 18:59 06:59 18:59 Intake Total 540 120 Output Total 700 1800 Balance -160 -1680 Weight 118.6 kg 118.6 kg Intake: Oral 540 120 Output: Urine 700 1800 Other: Voiding Method External Catheter External Catheter External Catheter - Labs CBC & Chem 7: 07/21/24 05:38 07/21/24 05:38 Labs: Abnormal Lab Results - Last 24 Hours (Table) 07/20/24 07/20/24 07/20/24 Range/Units 16:11 20:13 23:57 RBC (3.80-5.40) m/uL Hgb (11.4-16.0) gm/dL MCV (80.0-100.0) fL MCHC (31.0-37.0) g/dL RDW (11.5-15.5) % Sodium (137-145) mmol/L Chloride (98-107) mmol/L Carbon Dioxide (22-30) mmol/L BUN (7-17) mg/dL Creatinine (0.52-1.04) mg/dL Glucose (74-99) mg/dL POC Glucose (mg/dL) 273 H 258 H 190 H (70-110) mg/dL Calcium (8.4-10.2) mg/dL 07/21/24 07/21/24 07/21/24 Range/Units 05:38 05:38 05:48 RBC 3.44 L (3.80-5.40) m/uL Hgb 10.8 L (11.4-16.0) gm/dL MCV 101.8 H (80.0-100.0) fL MCHC 30.7 L (31.0-37.0) g/dL RDW 15.6 H (11.5-15.5) % Sodium 135 L (137-145) mmol/L Chloride 96 L (98-107) mmol/L Carbon Dioxide 38 H (22-30) mmol/L BUN 27 H (7-17) mg/dL Creatinine 1.08 H (0.52-1.04) mg/dL Glucose 189 H (74-99) mg/dL POC Glucose (mg/dL) 213 H (70-110) mg/dL Calcium 8.0 L (8.4-10.2) mg/dL 07/21/24 Range/Units 11:25 RBC (3.80-5.40) m/uL Hgb (11.4-16.0) gm/dL MCV (80.0-100.0) fL MCHC (31.0-37.0) g/dL RDW (11.5-15.5) % Sodium (137-145) mmol/L Chloride (98-107) mmol/L Carbon Dioxide (22-30) mmol/L BUN (7-17) mg/dL Creatinine (0.52-1.04) mg/dL Glucose (74-99) mg/dL POC Glucose (mg/dL) 179 H (70-110) mg/dL Calcium (8.4-10.2) mg/dL Microbiology - Last 24 Hours (Table) 07/15/24 08:30 Blood Culture - Final Blood
--- NOTE | 2024-07-21 14:22 | P.PN ---
Subjective Progress Note Date: 07/21/24 This is a 69-year-old female patient with multiple comorbidities including DVT, diabetes mellitus, hypertension, myocardial infarction, congestive heart failure, hypertension, factor V, former smoker. The patient was found down in her bathroom at home earlier this morning. EMS was called and she was blue on arrival and with a 50% O2 saturation. They placed her on nonrebreather and transferred her here. She was then placed on BiPAP 14/6 and 50% FiO2. Arterial blood gases revealed a PaO2 of 72, CO2 of 65 and a pH of 7.23 on 50%. Urine drug screen was positive for oxycodone and benzodiazepines. Troponin initially 0.55 then elevated at 2.96. White count 9.3. Hemoglobin 10.7. Platelets 204. Sodium 134. Potassium 4.9. Bicarb 27. BUN 17. Creatinine 0.88. Glucose 368. proBNP 2860. Viral screen negative. Chest x-ray revealed small bilateral pleural effusion and atelectasis. Mild pulmonary edema. No evidence of pneumothorax. CT scan of the head revealed no acute intracranial abnormalities. No cervical fractures. CT scan of the chest revealed small bilateral pleural effusions with atelectasis. Mild pulmonary edema. No evidence of acute trauma injury to the abdomen or pelvis. She is seen today in consultation in the emergency department. She remains on BiPAP. She is laying on her left side on the stretcher. She is awake and alert. Family is at the bedside. The patient is seen today July 16, 2024 in follow-up on the regular medical floor. She is currently sitting up in bed. Awake and alert in no acute distress. She is maintaining O2 saturations in the 90s on BiPAP currently 14/6 and 50% FiO2. She denies any significant shortness of breath, cough or c ongestion. She is still having some abdominal discomfort. Her procalcitonin was negative at 0.27. Zosyn will be discontinued. She remains on a heparin drip. She did rule in for non-ST segment elevation myocardial infarction. She is receiving Lasix 40 mg IV every 12 hours. Chest x-ray showing diminishing bilateral lung infiltrates. Count 11.5. Hemoglobin 11.0. Platelets 218. Sodium 138. Potassium 5.0. Bicarb 33. BUN 25. Creatinine 0.90. Glucose 329. Her hemoglobin A1c is 9.7. Remains on Levemir and Novolog sliding scale. Progress note dated July 17, 2024. The patient is seen today in room 361. He is currently on 3 L oxygen. She is receiving IV heparin. Her ejection fraction by echocardiogram is 20 to 25%. The patient is scheduled to have a cardiac catheterization today. She was admitted with a diagnosis of non-ST segment elevation myocardial infarction. Clinically, the patient remains relatively stable. White count 8.2, hemoglobin 10.5, macro 34.3, and platelet count was normal. PTT of 45.3. Sodium 136, potassium 4.2, chlorides 99, CO2 35, anion gap 2, BUN 29, creatinine 0.93. Progress note dated July 18, 2024. The patient is seen today in room 361. The patient is currently on 4 L of oxygen. The patient is getting saline at 10 cc an hour. The patient apparently did not use the BiPAP device last night. Current labs include a glucose of 181. The patient had a percutaneous coronary intervention, of the LAD, yesterday. The patient apparently tolerated the procedure well. Progress note dated July 19, 2024. 69-year-old female who seen today in room 361. The patient currently remains on oxygen, 4 L. She is getting saline at 10 cc an hour. No new labs today other than a glucose of 210. The patient did have a PCI yesterday, and stent placement, in her LAD. The patient tolerated the procedure well. The patient has no new complaints today. She denies any significant shortness of breath, or chest discomfort. Current labs include a white count 7.8, hemoglobin 10.7, hematocrit 35.2, and a normal platelet count. Sodium 139, potassium 4.9, chlorides 97, CO2 40, BUN 24, creatinine 1.02. Calcium is 8.2. N-terminal pro BNP is elevated at 4880. On 07/21/2024, the patient is being seen for a follow-up. The patient is currently on 2 L of oxygen by nasal cannula and she seems to be calm and comfortable. She is status post a fall which brought into the hospital and the patient was found to be in acute hypoxic respiratory failure. She was diagnosed having systolic heart failure with severe impairment of the LV function with an ejection fraction of 20 to 25%. She also sustained an acute non-ST segment elevation myocardial infarction and the patient is status post PCI and stenting of the LAD that was done on 07/17/2024. The patient is diabetic. On today's evaluation, she is on 2 L of oxygen by nasal cannula with a pulse ox of 93%. Repeat chest x-ray was done today this morning and it showed cardiomegaly and pulm vessel congestion and a small left-sided pleural effusion. Bibasilar patchy airspace opacities/atelectasis were also present. The patient remains on aspirin and Plavix. The patient is on Lasix 40 mg p.o. daily. The patient on metoprolol 50 mg twice a day and Aldactone 25 mg p.o. daily. The patient is also on Lipitor 80 mg p.o. daily patient is on Synthroid 200 mcg p.o. on a daily basis. She is also on Cozaar 12.5 mg p.o. daily for blood pressure monitoring and management and the patient is also on Levemir insulin 60 units twice daily for blood sugar control. No other significant events overnight. In terms of her blood work, the patient's white cell count is 7.9 with a hemoglobin 10.8 and a platelet count of 157. BUN is 27 with a creatinine of 1.08 and a sodium levels at 135. Objective - Vital Signs Vital signs: Vital Signs Temp 98.1 F 07/21/24 08:52 Pulse 71 07/21/24 08:52 Resp 18 07/21/24 08:52 BP 117/68 07/21/24 08:52 Pulse Ox 94 L 07/21/24 09:04 FiO2 50 07/16/24 08:00 Intake & Output 07/20/24 07/21/24 07/21/24 18:59 06:59 18:59 Intake Total 540 120 Output Total 700 1800 Balance -160 -1680 Weight 118.6 kg Intake: Oral 540 120 Output: Urine 700 1800 Other: Voiding Method External Catheter External Catheter External Catheter - Exam No acute distress, oriented 3. The patient is currently on 2 L nasal cannula. No respiratory distress. She is awake and alert. HEENT examination is grossly unremarkable. Mucous membranes are moist. No oral lesions. Neck supple. Full range of motion. No adenopathy thyromegaly or neck vein distention. Cardiovascular examination reveals regular rhythm rate. S1-S2 normal. No S3 or S4. No discernible murmur noted. Lungs reveal bibasilar crackles. No wheezes. No rhonchi. Breath sounds equal bilaterally. Abdomen soft bowel sounds are heard. No masses or tenderness. Extremities are intact. Mild lower extremity edema. No cyanosis or clubbing. Skin is without rash or lesion. Neurologic examination is brief but nonfocal. - Labs CBC & Chem 7: 07/21/24 05:38 07/21/24 05:38 Labs: Abnormal Lab Results - Last 24 Hours (Table) 07/20/24 07/20/24 07/20/24 Range/Units 11:30 16:11 20:13 RBC (3.80-5.40) m/uL Hgb (11.4-16.0) gm/dL MCV (80.0-100.0) fL MCHC (31.0-37.0) g/dL RDW (11.5-15.5) % Sodium (137-145) mmol/L Chloride (98-107) mmol/L Carbon Dioxide (22-30) mmol/L BUN (7-17) mg/dL Creatinine (0.52-1.04) mg/dL Glucose (74-99) mg/dL POC Glucose (mg/dL) 234 H 273 H 258 H (70-110) mg/dL Calcium (8.4-10.2) mg/dL 07/20/24 07/21/24 07/21/24 Range/Units 23:57 05:38 05:38 RBC 3.44 L (3.80-5.40) m/uL Hgb 10.8 L (11.4-16.0) gm/dL MCV 101.8 H (80.0-100.0) fL MCHC 30.7 L (31.0-37.0) g/dL RDW 15.6 H (11.5-15.5) % Sodium 135 L (137-145) mmol/L Chloride 96 L (98-107) mmol/L Carbon Dioxide 38 H (22-30) mmol/L BUN 27 H (7-17) mg/dL Creatinine 1.08 H (0.52-1.04) mg/dL Glucose 189 H (74-99) mg/dL POC Glucose (mg/dL) 190 H (70-110) mg/dL Calcium 8.0 L (8.4-10.2) mg/dL 07/21/24 Range/Units 05:48 RBC (3.80-5.40) m/uL Hgb (11.4-16.0) gm/dL MCV (80.0-100.0) fL MCHC (31.0-37.0) g/dL RDW (11.5-15.5) % Sodium (137-145) mmol/L Chloride (98-107) mmol/L Carbon Dioxide (22-30) mmol/L BUN (7-17) mg/dL Creatinine (0.52-1.04) mg/dL Glucose (74-99) mg/dL POC Glucose (mg/dL) 213 H (70-110) mg/dL Calcium (8.4-10.2) mg/dL Microbiology - Last 24 Hours (Table) 07/15/24 08:30 Blood Culture - Final Blood Assessment and Plan Plan: Fall at home in her bathroom, unwitnessed. Acute hypoxemic respiratory failure suspect secondary to acute exacerbation of chronic systolic congestive heart. Severely impaired left ventricular systolic function with an ejection fraction 20 to 25%. The patient remains on oxygen 2 L/min nasal cannula. Chest x-ray from 07/21/2024 shows cardiomegaly, pulm vessel congestion and a small left pleural effusion. Systolic heart failure with impaired ejection fraction of 20 to 25% Small left-sided pleural effusion, likely secondary to above Non-ST elevation myocardial infarction, S/P PCI of her LAD, on 07/17/2024, currently on a combination of aspirin and Plavix. The patient is also on metoprolol and high-dose statins. Coronary artery disease with previous stent placement. The patient also has previous history of myocardial infarction. Hypertension. Maintained on losartan for blood pressure control. Hyperlipidemia. 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 Diabetes mellitus, type II.The patient is on Levemir insulin 60 units twice a day Former smoker Plan: Continue oxygen at 3 L/min nasal cannula Continue Lasix and Aldactone Continue aspirin and Plavix Continue metoprolol 50 mg p.o. twice a day Losartan for blood pressure control 12.5 mg p.o. daily Increase mobility Incentive spirometer Will continue to follow
[2024-07-21 16:12] LABS: Glucose,Whole Blood 244 mg/dL (70-110)
[2024-07-21 19:59] LABS: Glucose,Whole Blood 313 mg/dL (70-110)
[2024-07-22 06:24] LABS: Glucose,Whole Blood 147 mg/dL (70-110)
[2024-07-22 07:28] LABS: African American GFR (CKD) 62 (>60 ml/min/1.73 sqM); Anion Gap 4 mmol/L; Blood Urea Nitrogen 29 mg/dL (7-17); Calcium 8.1 mg/dL (8.4-10.2); Carbon Dioxide 35 mmol/L (22-30); Chloride 97 mmol/L (98-107); Glucose 140 mg/dL (74-99); Non-African American GFR(CKD) 54 (>60 ml/min/1.73 sqM); Potassium 4.7 mmol/L (3.5-5.1); Sodium 136 mmol/L (137-145)
[2024-07-22 07:29] LABS: Basophils % (A) 0 %; Eosinophils # (A) 0.2 k/uL (0-0.7); Eosinophils % (A) 2 %; HCT 34.7 % (34.0-46.0); HGB 10.7 gm/dL (11.4-16.0); Hypochromasia Marked; Lymphocytes # (A) 1.3 k/uL (1.0-4.8); Lymphocytes % (A) 14 %; MCH 30.9 pg (25.0-35.0); MCHC 30.8 g/dL (31.0-37.0); MCV 100.3 fL (80.0-100.0); Macrocytosis Slight; Monocytes # (A) 0.3 k/uL (0-1.0); Monocytes % (A) 3 %; Neutrophils # (A) 7.8 k/uL (1.3-7.7); Neutrophils % (A) 80 %; Platelet Count 150 k/uL (150-450); RBC 3.46 m/uL (3.80-5.40); RDW 15.6 % (11.5-15.5); WBC 9.7 k/uL (3.8-10.6)
--- NOTE | 2024-07-22 10:37 | P.PN ---
Subjective Progress Note Date: 07/21/24 69 years old female with past medical history of multiple medical problems. Patient brought to the hospital after her found her sick and dizzy restroom. Patient currently on BiPAP, cannot provide much information and it was obtained with the help of the at bedside. As per patient was not feeling weak for more than a week, she is not eating well, she was using a walker. She has been complaining from cough and increasing breathing difficulty he went to see her PCP Dr. Sy who gave her a shot of antibiotics for bronchitis and ear infection. As per yesterday 8 PM she was fine about 3 to 4 AM he heard her asking for help while in the restroom where she was lying confused and he called 911. As per also she has been complaining of from central chest pain through the week. Currently when I asked the patient she denies any chest pain or abdominal pain. She follows commands but she looks very tired. Also she has been having more cough and phlegm lately. Cannot fully clear per . Patient is non-smoker, no alcohol no illicit drugs. Patient herself denies any abdominal pain or tenderness, no urinary symptoms. She is somewhat hypothermic with temperature 96.9. She is tachycardic 110, tachypneic at 22-24. Blood pressure 155/91 She is on BiPAP with FiO2 of 50% with oxygen saturation 92%. pH 7.2, pCO2 is high 65 and pO2 is low 72 Labs showing WBC 9.3, hemoglobin 10.7. Platelet count is normal. INR is unremarkable. Elevated troponin 0.55 proBNP is elevated 2860. Liver enzymes are unremarkable. Albumin 3.2 Urine drug screen is positive for oxycodone and benzodiazepine, serum alcohol less than 10 Influenza A and type B, RSV, SARS (coronavirus) are un CT of the abdomen and pelvis and chest With contrast showing no acute abnormality. Mild pulmonary edema. There is atelectasis/consolidation in the left lower lobe with mild atelectasis also seen in the right lower lobe base, right middle lobe and lingula Echocardiogram in 2019 showed ejection fraction 40 to 45% EKG showing sinus tachycardia [address]-T changes CT of the head and neck is negative for acute process Pelvic x-ray is negative, chest x-ray reviewed by myself showing bilateral lower lobe infiltrate slightly worse than before 07/16 Patient currently in the ICU but at select overflow Patient this morning is sleepy. She is on BiPAP and tolerates that well Daughter Amie at bedside and states she was awake through the night and currently tired. Vitals look stable. Hemoglobin 11 WBC 11.5 She is currently on IV Lasix 40 mg twice daily Pro- Calcitonin is negative at 0.27. Patient currently on Zosyn Patient also on aspirin and Plavix She will need cardiac cath once she stabilizes 07/17 patient is awake alert, she looks more comfortable, she is more awake No significant chest pain Patient feels anxious, as per family she used to take 2 mg of Xanax 3 times daily. We are going to increase her Xanax to 1 mg every 6 hours as needed Patient is going for cardiac cath today Patient a medically stable to go to cardiac cath although she is at some risk. Heparin drip was discontinued and subcutaneous heparin started She remains on aspirin and Plavix Metoprolol and Aldactone started Oxygen saturation acceptable on 3 to 4 L via nasal cannula 07/18 Patient looks tired She is s/p cardiac cath and PCI to LAD for her non-STEMI No chest pain or dyspnea She is kept on aspirin and Plavix She is requesting her Xanax she takes 2 mg 3 times daily. I explained to her is high risk with risk of respiratory depression and/or explained and she agrees now to 1 extra Xanax dose to 1 mg every 6 hours 07/19 Patient seen and evaluated at bedside, patient accompanied by at bedside, patient states shortness of breath has improved however does complain of insomnia, trazodone resumed QTc reviewed 399 from July 1507/20- patient seen and evaluated at bedside, remains on 4 L of oxygen and blood pressure remained stable afebrile. hemoglobin 10.7 remains stable, serum chemistry reviewed creatinine 1.02 blood glucose 137, sodium of 139 potassium 4.9. Patient does complain of insomnia however was resumed back on trazodone 07/21/2024 Patient is sitting in the chair. Awake alert and oriented. Still having bilateral lower extremity swelling. Currently requiring oxygen at 2 L via nasal cannula. Chest x-ray showed cardiomegaly, pulmonary vascular congestion and small left pleural effusion. Correlate with BNP for CHF. Bibasilar patchy airspace opacities which may represent atelectasis versus superimposed pneumonia in the appropriate clinical setting. Laboratory data showed WBC 7.9 hemoglobin 10.8 and platelets 157 sodium 135 potassium 5.0 chloride 96 bicarb is 38 BUN 27 creatinine 1.08 blood sugar 189. Patient is being continued on Lasix 40 mg daily and spironolactone 25 mg daily. Continue on DuoNebs. Cardiology and pulmonary is on board. PHYSICAL EXAMINATION: GENERAL: The patient is alert and oriented x3, ill appearance, nasal cannula in place HEENT: Pupils are round and equally reacting to light. EOMI. Normocephalic, atraumatic. CARDIOVASCULAR: S1 and S2 present. No murmurs, rubs, or gallops. PULMONARY: Decreased breath sounds bilaterally rhonchi audible ABDOMEN: Soft, nontender, nondistended, normoactive bowel sounds. No palpable organomegaly. MUSCULOSKELETAL: No joint swelling or deformity. EXTREMITIES: 2+ lower extremity edema noted NEUROLOGICAL: Gross neurological examination did not reveal any focal deficits. Objective - Vital Signs Vital signs: Vital Signs Temp 98.1 F 07/21/24 08:52 Pulse 71 07/21/24 08:52 Resp 18 07/21/24 08:52 BP 117/68 07/21/24 08:52 Pulse Ox 94 L 07/21/24 09:04 FiO2 50 07/16/24 08:00 Intake & Output 07/20/24 07/21/24 07/21/24 18:59 06:59 18:59 Intake Total 540 120 Output Total 700 1800 Balance -160 -1680 Weight 118.6 kg Intake: Oral 540 120 Output: Urine 700 1800 Other: Voiding Method External Catheter External Catheter External Catheter - Labs CBC & Chem 7: 07/22/24 06:32 07/22/24 06:32 Labs: Abnormal Lab Results - Last 24 Hours (Table) 07/20/24 07/20/24 07/20/24 Range/Units 11:30 16:11 20:13 RBC (3.80-5.40) m/uL Hgb (11.4-16.0) gm/dL MCV (80.0-100.0) fL MCHC (31.0-37.0) g/dL RDW (11.5-15.5) % Sodium (137-145) mmol/L Chloride (98-107) mmol/L Carbon Dioxide (22-30) mmol/L BUN (7-17) mg/dL Creatinine (0.52-1.04) mg/dL Glucose (74-99) mg/dL POC Glucose (mg/dL) 234 H 273 H 258 H (70-110) mg/dL Calcium (8.4-10.2) mg/dL 07/20/24 07/21/24 07/21/24 Range/Units 23:57 05:38 05:38 RBC 3.44 L (3.80-5.40) m/uL Hgb 10.8 L (11.4-16.0) gm/dL MCV 101.8 H (80.0-100.0) fL MCHC 30.7 L (31.0-37.0) g/dL RDW 15.6 H (11.5-15.5) % Sodium 135 L (137-145) mmol/L Chloride 96 L (98-107) mmol/L Carbon Dioxide 38 H (22-30) mmol/L BUN 27 H (7-17) mg/dL Creatinine 1.08 H (0.52-1.04) mg/dL Glucose 189 H (74-99) mg/dL POC Glucose (mg/dL) 190 H (70-110) mg/dL Calcium 8.0 L (8.4-10.2) mg/dL 07/21/24 Range/Units 05:48 RBC (3.80-5.40) m/uL Hgb (11.4-16.0) gm/dL MCV (80.0-100.0) fL MCHC (31.0-37.0) g/dL RDW (11.5-15.5) % Sodium (137-145) mmol/L Chloride (98-107) mmol/L Carbon Dioxide (22-30) mmol/L BUN (7-17) mg/dL Creatinine (0.52-1.04) mg/dL Glucose (74-99) mg/dL POC Glucose (mg/dL) 213 H (70-110) mg/dL Calcium (8.4-10.2) mg/dL Microbiology - Last 24 Hours (Table) 07/15/24 08:30 Blood Culture - Final Blood Assessment and Plan Assessment: Assessment: Acute hypoxic respiratory failure secondary to CHF exacerbation Elevated troponin, non-STEMI s/p cardiac cath and PCI to LAD on 07/17 acute on chronic congestive heart failure systolic dysfunction ejection fraction 20 to 25% s/p fall at home Obesity with BMI of 46.4. Diabetes mellitus type II Hypertension Hyperlipidemia History of osteoarthritis Hypothyroidism History of pulmonary embolism factor V Leyden history Plan: in regards to hypoxic respiratory failure patient remains on 4 L of oxygen, titrate down to 2 L, seen by pulmonary medicine in regards to congestive heart failure continue diuretics including Lasix, Aldactone, continue guideline directed medical therapy on losartan and metoprolol in regards to coronary artery disease s/p PCI continue aspirin and Plavix in regards to history of anxiety continue Xanax as needed, trazodone resumed cardiology and pulmonary medicine follow-up Labs and medication were reviewed.. Further recommendations depends on the clinical course of the patient DVT prophylaxis: Subcutaneous heparin GI Prophylaxis: Pepcid PT/OT: to be determined discharge disposition Time with Patient: Greater than 30
--- NOTE | 2024-07-22 11:52 | P.PN ---
Subjective Progress Note Date: 07/22/24 Patient is a pleasant 69-year-old female who presented to the hospital with acute respiratory failure, abnormal troponins, and underwent stenting to the LAD 3 days ago. Patient today reports that she is feeling a little bit better. She reports that her breathing is better. Patient was up to the chair yesterday for approximately 3 hours, she states that she did experience some mild dizziness during that time. Today she is otherwise denying chest pain, heart palpitations, and dizziness. VITALS: Temp 98.1, pulse 73, respirations 18, blood pressure 127/69, O2 saturation 95% on 4 L TELEMETRY: Sinus mechanism LABS: White count 7.8, hemoglobin 10.7, platelet 173, sodium 139, potassium 4.9, BUN 24, creatinine 1.02, BNP 4880 07/21/2024 Patient seen and examined. Patient denies having any chest pain or shortness of breath. She states that she cannot get up. Patient apparently has not been out of bed. She appears to be quite weak. Blood pressure 110/54, heart rate 62, pulse ox 93% on 2 L nasal cannula. Repeat blood work reveals hemoglobin 10.8, BUN 27 creatinine 1.08. Repeat chest x-ray reveals cardiomegaly, pulmonary vascular congestion and small left pleural effusion. 07/22/2024 Patient seen and examined. Patient complains of feeling tired. No chest pain and no shortness of breath. Yesterday we had ordered a LifeVest which is due to arrive today. Blood pressure 102/49, heart rate 71, pulse ox 94% on 2 L nasal cannula. Repeat blood work reveals hemoglobin 10.7, sodium 136, potassium 4.7, BUN 29 creatinine 1.06. Physical examination GENERAL: Well-appearing, well-nourished and in no acute distress. NECK: Supple without JVD or thyromegaly. LUNGS: Breath sounds clear to auscultation bilaterally. Respiration equal and unlabored. No wheezes, rales or rhonchi. HEART: Regular rate and rhythm without murmurs, rubs or gallops. S1 and S2 heard. EXTREMITIES: Normal range of motion, no edema. No clubbing or cyanosis. Peripheral pulses intact and strong. IMPRESSION: 1. Acute on chronic respiratory failure 2. Morbid obesity 3. Uncontrolled diabetes type 2 4. Severe cardiomyopathy with congestive heart failure 5. Non-Q wave SD, abnormal troponins 6. Coronary angiography revealed two-vessel disease involving the LAD and left circumflex 7. Post LAD stent PLAN: LifeVest will be ordered for the patient prior to discharge. Continue current medications as prescribed: Aspirin 81 mg daily, Lipitor 80 mg daily, Plavix 75 mg daily Continue patient on Lasix 40 mg daily, Cozaar 12.5 mg daily, Lopressor 50 mg twice daily, Aldactone 25 mg daily. Patient is cleared for discharge once life vest is obtained. Nurse practitioner note has been reviewed, I agree with documented findings and plan of care. Patient was seen and examined. Objective - Vital Signs Vital signs: Vital Signs Temp 98.4 F 07/22/24 08:09 Pulse 71 07/22/24 08:09 Resp 16 07/22/24 08:09 BP 102/49 07/22/24 08:09 Pulse Ox 94 L 07/22/24 08:09 FiO2 50 07/16/24 08:00 Intake & Output 07/21/24 07/22/24 07/22/24 18:59 06:59 18:59 Intake Total 10 20 180 Output Total 800 350 Balance -790 -330 180 Weight 118.6 kg 112.491 kg Intake: IV 10 20 Invasive Line 2 10 20 Oral 180 Output: Urine 800 350 Other: Voiding Method External Catheter External Catheter - Labs CBC & Chem 7: 07/22/24 06:32 07/22/24 06:32 Labs: Abnormal Lab Results - Last 24 Hours (Table) 07/21/24 07/21/24 07/21/24 Range/Units 11:25 16:10 19:57 RBC (3.80-5.40) m/uL Hgb (11.4-16.0) gm/dL MCV (80.0-100.0) fL MCHC (31.0-37.0) g/dL RDW (11.5-15.5) % Neutrophils # (1.3-7.7) k/uL Sodium (137-145) mmol/L Chloride (98-107) mmol/L Carbon Dioxide (22-30) mmol/L BUN (7-17) mg/dL Creatinine (0.52-1.04) mg/dL Glucose (74-99) mg/dL POC Glucose (mg/dL) 179 H 244 H 313 H (70-110) mg/dL Calcium (8.4-10.2) mg/dL 07/22/24 07/22/24 07/22/24 Range/Units 06:22 06:32 06:32 RBC 3.46 L (3.80-5.40) m/uL Hgb 10.7 L (11.4-16.0) gm/dL MCV 100.3 H (80.0-100.0) fL MCHC 30.8 L (31.0-37.0) g/dL RDW 15.6 H (11.5-15.5) % Neutrophils # 7.8 H (1.3-7.7) k/uL Sodium 136 L (137-145) mmol/L Chloride 97 L (98-107) mmol/L Carbon Dioxide 35 H (22-30) mmol/L BUN 29 H (7-17) mg/dL Creatinine 1.06 H (0.52-1.04) mg/dL Glucose 140 H (74-99) mg/dL POC Glucose (mg/dL) 147 H (70-110) mg/dL Calcium 8.1 L (8.4-10.2) mg/dL
[2024-07-22 12:21] LABS: Glucose,Whole Blood 186 mg/dL (70-110)
[2024-07-22 13:23] LABS: Iron 91 UG/DL (65-175); Total Iron Binding Capacity 444 UG/DL (228-460)
[2024-07-22 13:24] LABS: Vitamin B12 <150.0 pg/mL (200.0-944.0)
[2024-07-22 16:36] LABS: Glucose,Whole Blood 250 mg/dL (70-110)
--- NOTE | 2024-07-22 18:01 | P.PN ---
Subjective Progress Note Date: 07/22/24 This is a 69-year-old female patient with multiple comorbidities including DVT, diabetes mellitus, hypertension, myocardial infarction, congestive heart failure, hypertension, factor V, former smoker. The patient was found down in her bathroom at home earlier this morning. EMS was called and she was blue on arrival and with a 50% O2 saturation. They placed her on nonrebreather and transferred her here. She was then placed on BiPAP 14/6 and 50% FiO2. Arterial blood gases revealed a PaO2 of 72, CO2 of 65 and a pH of 7.23 on 50%. Urine drug screen was positive for oxycodone and benzodiazepines. Troponin initially 0.55 then elevated at 2.96. White count 9.3. Hemoglobin 10.7. Platelets 204. Sodium 134. Potassium 4.9. Bicarb 27. BUN 17. Creatinine 0.88. Glucose 368. proBNP 2860. Viral screen negative. Chest x-ray revealed small bilateral pleural effusion and atelectasis. Mild pulmonary edema. No evidence of pneumothorax. CT scan of the head revealed no acute intracranial abnormalities. No cervical fractures. CT scan of the chest revealed small bilateral pleural effusions with atelectasis. Mild pulmonary edema. No evidence of acute trauma injury to the abdomen or pelvis. She is seen today in consultation in the emergency department. She remains on BiPAP. She is laying on her left side on the stretcher. She is awake and alert. Family is at the bedside. The patient is seen today July 16, 2024 in follow-up on the regular medical floor. She is currently sitting up in bed. Awake and alert in no acute distress. She is maintaining O2 saturations in the 90s on BiPAP currently 14/6 and 50% FiO2. She denies any significant shortness of breath, cough or c ongestion. She is still having some abdominal discomfort. Her procalcitonin was negative at 0.27. Zosyn will be discontinued. She remains on a heparin drip. She did rule in for non-ST segment elevation myocardial infarction. She is receiving Lasix 40 mg IV every 12 hours. Chest x-ray showing diminishing bilateral lung infiltrates. Count 11.5. Hemoglobin 11.0. Platelets 218. Sodium 138. Potassium 5.0. Bicarb 33. BUN 25. Creatinine 0.90. Glucose 329. Her hemoglobin A1c is 9.7. Remains on Levemir and Novolog sliding scale. Progress note dated July 17, 2024. The patient is seen today in room 361. He is currently on 3 L oxygen. She is receiving IV heparin. Her ejection fraction by echocardiogram is 20 to 25%. The patient is scheduled to have a cardiac catheterization today. She was admitted with a diagnosis of non-ST segment elevation myocardial infarction. Clinically, the patient remains relatively stable. White count 8.2, hemoglobin 10.5, macro 34.3, and platelet count was normal. PTT of 45.3. Sodium 136, potassium 4.2, chlorides 99, CO2 35, anion gap 2, BUN 29, creatinine 0.93. Progress note dated July 18, 2024. The patient is seen today in room 361. The patient is currently on 4 L of oxygen. The patient is getting saline at 10 cc an hour. The patient apparently did not use the BiPAP device last night. Current labs include a glucose of 181. The patient had a percutaneous coronary intervention, of the LAD, yesterday. The patient apparently tolerated the procedure well. Progress note dated July 19, 2024. 69-year-old female who seen today in room 361. The patient currently remains on oxygen, 4 L. She is getting saline at 10 cc an hour. No new labs today other than a glucose of 210. The patient did have a PCI yesterday, and stent placement, in her LAD. The patient tolerated the procedure well. The patient has no new complaints today. She denies any significant shortness of breath, or chest discomfort. Current labs include a white count 7.8, hemoglobin 10.7, hematocrit 35.2, and a normal platelet count. Sodium 139, potassium 4.9, chlorides 97, CO2 40, BUN 24, creatinine 1.02. Calcium is 8.2. N-terminal pro BNP is elevated at 4880. On 07/21/2024, the patient is being seen for a follow-up. The patient is currently on 2 L of oxygen by nasal cannula and she seems to be calm and comfortable. She is status post a fall which brought into the hospital and the patient was found to be in acute hypoxic respiratory failure. She was diagnosed having systolic heart failure with severe impairment of the LV function with an ejection fraction of 20 to 25%. She also sustained an acute non-ST segment elevation myocardial infarction and the patient is status post PCI and stenting of the LAD that was done on 07/17/2024. The patient is diabetic. On today's evaluation, she is on 2 L of oxygen by nasal cannula with a pulse ox of 93%. Repeat chest x-ray was done today this morning and it showed cardiomegaly and pulm vessel congestion and a small left-sided pleural effusion. Bibasilar patchy airspace opacities/atelectasis were also present. The patient remains on aspirin and Plavix. The patient is on Lasix 40 mg p.o. daily. The patient on metoprolol 50 mg twice a day and Aldactone 25 mg p.o. daily. The patient is also on Lipitor 80 mg p.o. daily patient is on Synthroid 200 mcg p.o. on a daily basis. She is also on Cozaar 12.5 mg p.o. daily for blood pressure monitoring and management and the patient is also on Levemir insulin 60 units twice daily for blood sugar control. No other significant events overnight. In terms of her blood work, the patient's white cell count is 7.9 with a hemoglobin 10.8 and a platelet count of 157. BUN is 27 with a creatinine of 1.08 and a sodium levels at 135. On 07/22/2024, patient is being seen for a follow-up. No new complaints. The patient remains on oxygen and she is on 2 L of O2 nasal cannula with a pulse ox of 95%. Remains on DuoNeb of chest 4 times a day [id number]. She remains on a combination of Lasix 40 mg p.o. daily and Aldactone 25 mg p.o. daily. She is on metoprolol 50 mg twice daily and losartan 12.5 mg p.o. daily. The patient is on Lipitor 80 mg p.o. daily. Blood work from today shows a WBC of 9.7 with a hemoglobin of 10.7 and a platelet count of 150. BUN is 29 with a creatinine of 1.06 and a sodium levels at 136. She is chronically debilitated. She is willing to go home and she has her as her main caregiver. As mentioned earlier, the patient has systolic heart failure post an acute an NST elevation myocardial infarction and the patient has an ejection fraction of 20 to 25% and the patient will require a LifeVest at the time of discharge. The patient is status post PCI and stenting of the LAD. She is diabetic on Levemir. Objective - Vital Signs Vital signs: Vital Signs Temp 98.4 F 07/22/24 08:09 Pulse 71 07/22/24 08:09 Resp 16 07/22/24 08:09 BP 102/49 07/22/24 08:09 Pulse Ox 94 L 07/22/24 08:09 FiO2 50 07/16/24 08:00 Intake & Output 07/21/24 07/22/24 07/22/24 18:59 06:59 18:59 Intake Total 10 20 190 Output Total 800 350 Balance -790 -330 190 Weight 118.6 kg 112.491 kg Intake: IV 10 20 10 Invasive Line 2 10 20 10 Oral 180 Output: Urine 800 350 Other: Voiding Method External Catheter External Catheter External Catheter - Exam No acute distress, oriented 3. The patient is currently on 2 L nasal cannula. No respiratory distress. She is awake and alert. HEENT examination is grossly unremarkable. Mucous membranes are moist. No oral lesions. Neck supple. Full range of motion. No adenopathy thyromegaly or neck vein distention. Cardiovascular examination reveals regular rhythm rate. S1-S2 normal. No S3 or S4. No discernible murmur noted. Lungs reveal bibasilar crackles. No wheezes. No rhonchi. Breath sounds equal bilaterally. Abdomen soft bowel sounds are heard. No masses or tenderness. Extremities are intact. Mild lower extremity edema. No cyanosis or clubbing. Skin is without rash or lesion. Neurologic examination is brief but nonfocal. - Labs CBC & Chem 7: 07/22/24 06:32 07/22/24 06:32 Labs: Abnormal Lab Results - Last 24 Hours (Table) 07/21/24 07/21/24 07/22/24 Range/Units 16:10 19:57 06:22 RBC (3.80-5.40) m/uL Hgb (11.4-16.0) gm/dL MCV (80.0-100.0) fL MCHC (31.0-37.0) g/dL RDW (11.5-15.5) % Neutrophils # (1.3-7.7) k/uL Sodium (137-145) mmol/L Chloride (98-107) mmol/L Carbon Dioxide (22-30) mmol/L BUN (7-17) mg/dL Creatinine (0.52-1.04) mg/dL Glucose (74-99) mg/dL POC Glucose (mg/dL) 244 H 313 H 147 H (70-110) mg/dL Calcium (8.4-10.2) mg/dL 07/22/24 07/22/24 Range/Units 06:32 06:32 RBC 3.46 L (3.80-5.40) m/uL Hgb 10.7 L (11.4-16.0) gm/dL MCV 100.3 H (80.0-100.0) fL MCHC 30.8 L (31.0-37.0) g/dL RDW 15.6 H (11.5-15.5) % Neutrophils # 7.8 H (1.3-7.7) k/uL Sodium 136 L (137-145) mmol/L Chloride 97 L (98-107) mmol/L Carbon Dioxide 35 H (22-30) mmol/L BUN 29 H (7-17) mg/dL Creatinine 1.06 H (0.52-1.04) mg/dL Glucose 140 H (74-99) mg/dL POC Glucose (mg/dL) (70-110) mg/dL Calcium 8.1 L (8.4-10.2) mg/dL Assessment and Plan Plan: Fall at home in her bathroom, unwitnessed. Acute hypoxemic respiratory failure suspect secondary to acute exacerbation of chronic systolic congestive heart. Severely impaired left ventricular systolic function with an ejection fraction 20 to 25%. The patient remains on oxygen 2 L/min nasal cannula. Chest x-ray from 07/21/2024 shows cardiomegaly, pulm vessel congestion and a small left pleural effusion. Systolic heart failure with impaired ejection fraction of 20 to 25% Small left-sided pleural effusion, likely secondary to above Non-ST elevation myocardial infarction, S/P PCI of her LAD, on 07/17/2024, currently on a combination of aspirin and Plavix. The patient is also on metoprolol and high-dose statins. Coronary artery disease with previous stent placement. The patient also has previous history of myocardial infarction. Hypertension. Maintained on losartan for blood pressure control. Hyperlipidemia. 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 Diabetes mellitus, type II.The patient is on Levemir insulin 60 units twice a day Former smoker Plan: Continue oxygen at 2 L/min nasal cannula Continue Lasix and Aldactone Continue aspirin and Plavix Continue metoprolol 50 mg p.o. twice a day Losartan for blood pressure control 12.5 mg p.o. daily Lipitor 80 mg p.o. daily Levemir insulin Arrangements for a LifeVest to be given to her at the time of discharge The patient is quite debilitated and essentially nonambulatory, is the main caregiver Incentive spirometer Will continue to follow
[2024-07-22 19:56] LABS: Glucose,Whole Blood 274 mg/dL (70-110)
[2024-07-23 06:07] LABS: Glucose,Whole Blood 175 mg/dL (70-110)
[2024-07-23 07:48] LABS: African American GFR (CKD) 52 (>60 ml/min/1.73 sqM); Anion Gap 5 mmol/L; Blood Urea Nitrogen 34 mg/dL (7-17); Calcium 7.9 mg/dL (8.4-10.2); Carbon Dioxide 32 mmol/L (22-30); Chloride 97 mmol/L (98-107); Glucose 155 mg/dL (74-99); Non-African American GFR(CKD) 45 (>60 ml/min/1.73 sqM); Potassium 4.3 mmol/L (3.5-5.1); Sodium 134 mmol/L (137-145)
[2024-07-23] MEDS ORDERED: CYANOCOBALAMIN 500 MCG TAB PO SCH (09:00)
--- NOTE | 2024-07-23 11:20 | P.PN ---
Subjective Progress Note Date: 07/23/24 Patient is a pleasant 69-year-old female who presented to the hospital with acute respiratory failure, abnormal troponins, and underwent stenting to the LAD 3 days ago. Patient today reports that she is feeling a little bit better. She reports that her breathing is better. Patient was up to the chair yesterday for approximately 3 hours, she states that she did experience some mild dizziness during that time. Today she is otherwise denying chest pain, heart palpitations, and dizziness. VITALS: Temp 98.1, pulse 73, respirations 18, blood pressure 127/69, O2 saturation 95% on 4 L TELEMETRY: Sinus mechanism LABS: White count 7.8, hemoglobin 10.7, platelet 173, sodium 139, potassium 4.9, BUN 24, creatinine 1.02, BNP 4880 07/21/2024 Patient seen and examined. Patient denies having any chest pain or shortness of breath. She states that she cannot get up. Patient apparently has not been out of bed. She appears to be quite weak. Blood pressure 110/54, heart rate 62, pulse ox 93% on 2 L nasal cannula. Repeat blood work reveals hemoglobin 10.8, BUN 27 creatinine 1.08. Repeat chest x-ray reveals cardiomegaly, pulmonary vascular congestion and small left pleural effusion. 07/22/2024 Patient seen and examined. Patient complains of feeling tired. No chest pain and no shortness of breath. Yesterday we had ordered a LifeVest which is due to arrive today. Blood pressure 102/49, heart rate 71, pulse ox 94% on 2 L nasal cannula. Repeat blood work reveals hemoglobin 10.7, sodium 136, potassium 4.7, BUN 29 creatinine 1.06. 07/23/2024 Patient seen and examined. Patient has LifeVest in place. Blood pressure 106/62, heart rate in the 70s, pulse ox 92% on 2 L nasal cannula. Repeat blood work reveals sodium 134, potassium 4.3, BUN 34 creatinine 1.22. Physical examination GENERAL: Well-appearing, well-nourished and in no acute distress. NECK: Supple without JVD or thyromegaly. LUNGS: Breath sounds clear to auscultation bilaterally. Respiration equal and unlabored. No wheezes, rales or rhonchi. HEART: Regular rate and rhythm without murmurs, rubs or gallops. S1 and S2 heard. EXTREMITIES: Normal range of motion, no edema. No clubbing or cyanosis. Peripheral pulses intact and strong. IMPRESSION: 1. Acute on chronic hypoxic respiratory failure 2. Morbid obesity 3. Uncontrolled diabetes type 2 4. Severe cardiomyopathy with chronic systolic heart failure 5. Non-Q wave WI, abnormal troponins 6. Coronary angiography revealed two-vessel disease involving the LAD and left circumflex 7. Post LAD stent PLAN: LifeVest has been obtained Continue current medications as prescribed: Aspirin 81 mg daily, Lipitor 80 mg daily, Plavix 75 mg daily Continue patient on Lasix 40 mg daily, Cozaar 12.5 mg daily, Lopressor 50 mg twice daily, Aldactone 25 mg daily. Patient is cleared for discharge from cardiology. Patient may follow-up in the office in 1 week. Cardiology will sign off this case and follow on an as-needed basis. Please reconsult for any new concerns. Patient may follow-up in the office in one to 2 weeks. Nurse practitioner note has been reviewed, I agree with documented findings and plan of care. Patient was seen and examined. Objective - Vital Signs Vital signs: Vital Signs Temp 98.4 F 07/23/24 08:00 Pulse 77 07/23/24 08:00 Resp 18 07/23/24 08:00 BP 106/62 07/23/24 08:00 Pulse Ox 92 L 07/23/24 08:00 FiO2 50 07/16/24 08:00 Intake & Output 07/22/24 07/23/24 07/23/24 18:59 06:59 18:59 Intake Total 200 10 Output Total 450 Balance 200 -450 10 Weight 111.7 kg Intake: IV 20 10 Invasive Line 2 20 10 Oral 180 Output: Urine 450 Other: Voiding Method External Catheter External Catheter External Catheter - Labs CBC & Chem 7: 07/22/24 06:32 07/23/24 06:48 Labs: Abnormal Lab Results - Last 24 Hours (Table) 07/22/24 07/22/24 07/22/24 Range/Units 06:32 12:19 16:35 Sodium (137-145) mmol/L Chloride (98-107) mmol/L Carbon Dioxide (22-30) mmol/L BUN (7-17) mg/dL Creatinine (0.52-1.04) mg/dL Glucose (74-99) mg/dL POC Glucose (mg/dL) 186 H 250 H (70-110) mg/dL Calcium (8.4-10.2) mg/dL Vitamin B12 <150.0 L (200.0-944.0) pg/mL 07/22/24 07/23/24 07/23/24 Range/Units 19:54 06:06 06:48 Sodium 134 L (137-145) mmol/L Chloride 97 L (98-107) mmol/L Carbon Dioxide 32 H (22-30) mmol/L BUN 34 H (7-17) mg/dL Creatinine 1.22 H (0.52-1.04) mg/dL Glucose 155 H (74-99) mg/dL POC Glucose (mg/dL) 274 H 175 H (70-110) mg/dL Calcium 7.9 L (8.4-10.2) mg/dL Vitamin B12 (200.0-944.0) pg/mL
[2024-07-23 11:46] LABS: Glucose,Whole Blood 260 mg/dL (70-110)
[2024-07-23] MEDS: CYANOCOBALAMIN 1,000 MCG/ML 1 ML VIAL IM SCH (12:30)
--- NOTE | 2024-07-23 16:13 | P.PN ---
Subjective Progress Note Date: 07/23/24 This is a 69-year-old female patient with multiple comorbidities including DVT, diabetes mellitus, hypertension, myocardial infarction, congestive heart failure, hypertension, factor V, former smoker. The patient was found down in her bathroom at home earlier this morning. EMS was called and she was blue on arrival and with a 50% O2 saturation. They placed her on nonrebreather and transferred her here. She was then placed on BiPAP 14/6 and 50% FiO2. Arterial blood gases revealed a PaO2 of 72, CO2 of 65 and a pH of 7.23 on 50%. Urine drug screen was positive for oxycodone and benzodiazepines. Troponin initially 0.55 then elevated at 2.96. White count 9.3. Hemoglobin 10.7. Platelets 204. Sodium 134. Potassium 4.9. Bicarb 27. BUN 17. Creatinine 0.88. Glucose 368. proBNP 2860. Viral screen negative. Chest x-ray revealed small bilateral pleural effusion and atelectasis. Mild pulmonary edema. No evidence of pneumothorax. CT scan of the head revealed no acute intracranial abnormalities. No cervical fractures. CT scan of the chest revealed small bilateral pleural effusions with atelectasis. Mild pulmonary edema. No evidence of acute trauma injury to the abdomen or pelvis. She is seen today in consultation in the emergency department. She remains on BiPAP. She is laying on her left side on the stretcher. She is awake and alert. Family is at the bedside. The patient is seen today July 16, 2024 in follow-up on the regular medical floor. She is currently sitting up in bed. Awake and alert in no acute distress. She is maintaining O2 saturations in the 90s on BiPAP currently 14/6 and 50% FiO2. She denies any significant shortness of breath, cough or c ongestion. She is still having some abdominal discomfort. Her procalcitonin was negative at 0.27. Zosyn will be discontinued. She remains on a heparin drip. She did rule in for non-ST segment elevation myocardial infarction. She is receiving Lasix 40 mg IV every 12 hours. Chest x-ray showing diminishing bilateral lung infiltrates. Count 11.5. Hemoglobin 11.0. Platelets 218. Sodium 138. Potassium 5.0. Bicarb 33. BUN 25. Creatinine 0.90. Glucose 329. Her hemoglobin A1c is 9.7. Remains on Levemir and Novolog sliding scale. Progress note dated July 17, 2024. The patient is seen today in room 361. He is currently on 3 L oxygen. She is receiving IV heparin. Her ejection fraction by echocardiogram is 20 to 25%. The patient is scheduled to have a cardiac catheterization today. She was admitted with a diagnosis of non-ST segment elevation myocardial infarction. Clinically, the patient remains relatively stable. White count 8.2, hemoglobin 10.5, macro 34.3, and platelet count was normal. PTT of 45.3. Sodium 136, potassium 4.2, chlorides 99, CO2 35, anion gap 2, BUN 29, creatinine 0.93. Progress note dated July 18, 2024. The patient is seen today in room 361. The patient is currently on 4 L of oxygen. The patient is getting saline at 10 cc an hour. The patient apparently did not use the BiPAP device last night. Current labs include a glucose of 181. The patient had a percutaneous coronary intervention, of the LAD, yesterday. The patient apparently tolerated the procedure well. Progress note dated July 19, 2024. 69-year-old female who seen today in room 361. The patient currently remains on oxygen, 4 L. She is getting saline at 10 cc an hour. No new labs today other than a glucose of 210. The patient did have a PCI yesterday, and stent placement, in her LAD. The patient tolerated the procedure well. The patient has no new complaints today. She denies any significant shortness of breath, or chest discomfort. Current labs include a white count 7.8, hemoglobin 10.7, hematocrit 35.2, and a normal platelet count. Sodium 139, potassium 4.9, chlorides 97, CO2 40, BUN 24, creatinine 1.02. Calcium is 8.2. N-terminal pro BNP is elevated at 4880. On 07/21/2024, the patient is being seen for a follow-up. The patient is currently on 2 L of oxygen by nasal cannula and she seems to be calm and comfortable. She is status post a fall which brought into the hospital and the patient was found to be in acute hypoxic respiratory failure. She was diagnosed having systolic heart failure with severe impairment of the LV function with an ejection fraction of 20 to 25%. She also sustained an acute non-ST segment elevation myocardial infarction and the patient is status post PCI and stenting of the LAD that was done on 07/17/2024. The patient is diabetic. On today's evaluation, she is on 2 L of oxygen by nasal cannula with a pulse ox of 93%. Repeat chest x-ray was done today this morning and it showed cardiomegaly and pulm vessel congestion and a small left-sided pleural effusion. Bibasilar patchy airspace opacities/atelectasis were also present. The patient remains on aspirin and Plavix. The patient is on Lasix 40 mg p.o. daily. The patient on metoprolol 50 mg twice a day and Aldactone 25 mg p.o. daily. The patient is also on Lipitor 80 mg p.o. daily patient is on Synthroid 200 mcg p.o. on a daily basis. She is also on Cozaar 12.5 mg p.o. daily for blood pressure monitoring and management and the patient is also on Levemir insulin 60 units twice daily for blood sugar control. No other significant events overnight. In terms of her blood work, the patient's white cell count is 7.9 with a hemoglobin 10.8 and a platelet count of 157. BUN is 27 with a creatinine of 1.08 and a sodium levels at 135. On 07/22/2024, patient is being seen for a follow-up. No new complaints. The patient remains on oxygen and she is on 2 L of O2 nasal cannula with a pulse ox of 95%. Remains on DuoNeb of chest 4 times a day [id number]. She remains on a combination of Lasix 40 mg p.o. daily and Aldactone 25 mg p.o. daily. She is on metoprolol 50 mg twice daily and losartan 12.5 mg p.o. daily. The patient is on Lipitor 80 mg p.o. daily. Blood work from today shows a WBC of 9.7 with a hemoglobin of 10.7 and a platelet count of 150. BUN is 29 with a creatinine of 1.06 and a sodium levels at 136. She is chronically debilitated. She is willing to go home and she has her as her main caregiver. As mentioned earlier, the patient has systolic heart failure post an acute an NST elevation myocardial infarction and the patient has an ejection fraction of 20 to 25% and the patient will require a LifeVest at the time of discharge. The patient is status post PCI and stenting of the LAD. She is diabetic on Levemir. On 07/23/2024, the patient is being seen for a follow-up. No new complaints. She remains on oxygen 2 L/min nasal cannula. Profoundly weak. Was able to sit up on a recliner as she is the patient was able to pivot herself with a walker and move herself to her recliner. Medications remain essentially unchanged. She is feeling weak and sometimes dizzy. No recent CBC from today. Electrolytes from today shows a BUN of 34 with a creatinine of 1.22 and a sodium levels at 134 and a potassium level is at 4.3. Serum bicarb is at 32. As for the rest of the medications, she remains on aspirin and Plavix. She remains on Cozaar 12.5 mg p.o. daily metoprolol 50 mg p.o. twice a day and she is also on a combination of Lasix 40 mg p.o. daily and Aldactone 25 mg p.o. daily. No other significant events otherwise. She was given a LifeVest. She remains on Levemir insulin. Objective - Vital Signs Vital signs: Vital Signs Temp 98.4 F 07/23/24 08:00 Pulse 77 07/23/24 08:00 Resp 18 07/23/24 08:00 BP 106/62 07/23/24 08:00 Pulse Ox 92 L 07/23/24 08:00 FiO2 50 07/16/24 08:00 Intake & Output 07/22/24 07/23/24 07/23/24 18:59 06:59 18:59 Intake Total 200 10 Output Total 450 Balance 200 -450 10 Weight 111.7 kg Intake: IV 20 10 Invasive Line 2 20 10 Oral 180 Output: Urine 450 Other: Voiding Method External Catheter External Catheter External Catheter - Exam No acute distress, oriented 3. The patient is currently on 2 L nasal cannula. No respiratory distress. She is awake and alert. HEENT examination is grossly unremarkable. Mucous membranes are moist. No oral lesions. Neck supple. Full range of motion. No adenopathy thyromegaly or neck vein distention. Cardiovascular examination reveals regular rhythm rate. S1-S2 normal. No S3 or S4. No discernible murmur noted. Lungs reveal bibasilar crackles. No wheezes. No rhonchi. Breath sounds equal bilaterally. Abdomen soft bowel sounds are heard. No masses or tenderness. Extremities are intact. Mild lower extremity edema. No cyanosis or clubbing. Skin is without rash or lesion. Neurologic examination is brief but nonfocal. - Labs CBC & Chem 7: 07/22/24 06:32 07/23/24 06:48 Labs: Abnormal Lab Results - Last 24 Hours (Table) 07/22/24 07/22/24 07/22/24 Range/Units 06:32 12:19 16:35 Sodium (137-145) mmol/L Chloride (98-107) mmol/L Carbon Dioxide (22-30) mmol/L BUN (7-17) mg/dL Creatinine (0.52-1.04) mg/dL Glucose (74-99) mg/dL POC Glucose (mg/dL) 186 H 250 H (70-110) mg/dL Calcium (8.4-10.2) mg/dL Vitamin B12 <150.0 L (200.0-944.0) pg/mL 07/22/24 07/23/24 07/23/24 Range/Units 19:54 06:06 06:48 Sodium 134 L (137-145) mmol/L Chloride 97 L (98-107) mmol/L Carbon Dioxide 32 H (22-30) mmol/L BUN 34 H (7-17) mg/dL Creatinine 1.22 H (0.52-1.04) mg/dL Glucose 155 H (74-99) mg/dL POC Glucose (mg/dL) 274 H 175 H (70-110) mg/dL Calcium 7.9 L (8.4-10.2) mg/dL Vitamin B12 (200.0-944.0) pg/mL Assessment and Plan Plan: Fall at home in her bathroom, unwitnessed. Acute hypoxemic respiratory failure suspect secondary to acute exacerbation of chronic systolic congestive heart. Severely impaired left ventricular systolic function with an ejection fraction 20 to 25%. The patient remains on oxygen 2 L/min nasal cannula. Chest x-ray from 07/21/2024 shows cardiomegaly, pulm vessel congestion and a small left pleural effusion. Systolic heart failure with impaired ejection fraction of 20 to 25% Small left-sided pleural effusion, likely secondary to above Non-ST elevation myocardial infarction, S/P PCI of her LAD, on 07/17/2024, currently on a combination of aspirin and Plavix. The patient is also on metoprolol and high-dose statins. Coronary artery disease with previous stent placement. The patient also has previous history of myocardial infarction. Hypertension. Maintained on losartan for blood pressure control. Hyperlipidemia. 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 Diabetes mellitus, type II.The patient is on Levemir insulin 60 units twice a day Former smoker Plan: Continue oxygen at 2 L/min nasal cannula Continue Lasix and Aldactone Continue aspirin and Plavix Continue metoprolol 50 mg p.o. twice a day Losartan for blood pressure control 12.5 mg p.o. daily Lipitor 80 mg p.o. daily Levemir insulin Arranged LifeVest to be given to her at the time of discharge The patient is quite debilitated and essentially nonambulatory, is the main caregiver Incentive spirometer Will continue to follow
[2024-07-23 16:29] LABS: Glucose,Whole Blood 185 mg/dL (70-110)
[2024-07-23 19:21] LABS: Glucose,Whole Blood 256 mg/dL (70-110)
--- NOTE | 2024-07-23 22:18 | P.PN ---
Subjective Progress Note Date: 07/23/24 69 years old female with past medical history of multiple medical problems. Patient brought to the hospital after her found her sick and dizzy restroom. Patient currently on BiPAP, cannot provide much information and it was obtained with the help of the at bedside. As per patient was not feeling weak for more than a week, she is not eating well, she was using a walker. She has been complaining from cough and increasing breathing difficulty he went to see her PCP Dr. Sy who gave her a shot of antibiotics for bronchitis and ear infection. As per yesterday 8 PM she was fine about 3 to 4 AM he heard her asking for help while in the restroom where she was lying confused and he called 911. As per also she has been complaining of from central chest pain through the week. Currently when I asked the patient she denies any chest pain or abdominal pain. She follows commands but she looks very tired. Also she has been having more cough and phlegm lately. Cannot fully clear per . Patient is non-smoker, no alcohol no illicit drugs. Patient herself denies any abdominal pain or tenderness, no urinary symptoms. She is somewhat hypothermic with temperature 96.9. She is tachycardic 110, tachypneic at 22-24. Blood pressure 155/91 She is on BiPAP with FiO2 of 50% with oxygen saturation 92%. pH 7.2, pCO2 is high 65 and pO2 is low 72 Labs showing WBC 9.3, hemoglobin 10.7. Platelet count is normal. INR is unremarkable. Elevated troponin 0.55 proBNP is elevated 2860. Liver enzymes are unremarkable. Albumin 3.2 Urine drug screen is positive for oxycodone and benzodiazepine, serum alcohol less than 10 Influenza A and type B, RSV, SARS (coronavirus) are un CT of the abdomen and pelvis and chest With contrast showing no acute abnormality. Mild pulmonary edema. There is atelectasis/consolidation in the left lower lobe with mild atelectasis also seen in the right lower lobe base, right middle lobe and lingula Echocardiogram in 2019 showed ejection fraction 40 to 45% EKG showing sinus tachycardia [address]-T changes CT of the head and neck is negative for acute process Pelvic x-ray is negative, chest x-ray reviewed by myself showing bilateral lower lobe infiltrate slightly worse than before 07/16 Patient currently in the ICU but at [facility] overflow Patient this morning is sleepy. She is on BiPAP and tolerates that well Daughter Amie at bedside and states she was awake through the night and currently tired. Vitals look stable. Hemoglobin 11 WBC 11.5 She is currently on IV Lasix 40 mg twice daily Pro- Calcitonin is negative at 0.27. Patient currently on Zosyn Patient also on aspirin and Plavix She will need cardiac cath once she stabilizes 07/17 patient is awake alert, she looks more comfortable, she is more awake No significant chest pain Patient feels anxious, as per family she used to take 2 mg of Xanax 3 times daily. We are going to increase her Xanax to 1 mg every 6 hours as needed Patient is going for cardiac cath today Patient a medically stable to go to cardiac cath although she is at some risk. Heparin drip was discontinued and subcutaneous heparin started She remains on aspirin and Plavix Metoprolol and Aldactone started Oxygen saturation acceptable on 3 to 4 L via nasal cannula 07/18 Patient looks tired She is s/p cardiac cath and PCI to LAD for her non-STEMI No chest pain or dyspnea She is kept on aspirin and Plavix She is requesting her Xanax she takes 2 mg 3 times daily. I explained to her is high risk with risk of respiratory depression and/or explained and she agrees now to 1 extra Xanax dose to 1 mg every 6 hours 07/19 Patient seen and evaluated at bedside, patient accompanied by at bedside, patient states shortness of breath has improved however does complain of insomnia, trazodone resumed QTc reviewed 399 from July 1507/20- patient seen and evaluated at bedside, remains on 4 L of oxygen and blood pressure remained stable afebrile. hemoglobin 10.7 remains stable, serum chemistry reviewed creatinine 1.02 blood glucose 137, sodium of 139 potassium 4.9. Patient does complain of insomnia however was resumed back on trazodone 07/21/2024 Patient is sitting in the chair. Awake alert and oriented. Still having bilateral lower extremity swelling. Currently requiring oxygen at 2 L via nasal cannula. Chest x-ray showed cardiomegaly, pulmonary vascular congestion and small left pleural effusion. Correlate with BNP for CHF. Bibasilar patchy airspace opacities which may represent atelectasis versus superimposed pneumonia in the appropriate clinical setting. Laboratory data showed WBC 7.9 hemoglobin 10.8 and platelets 157 sodium 135 potassium 5.0 chloride 96 bicarb is 38 BUN 27 creatinine 1.08 blood sugar 189. Patient is being continued on Lasix 40 mg daily and spironolactone 25 mg daily. Continue on DuoNebs. Cardiology and pulmonary is on board. 07/22/2024 Patient is currently sitting in the chair. Awake alert and oriented x 3. Requiring oxygen at 2 L via nasal cannula. No complaints of chest pain or worsening shortness of breath. Patient still has bilateral leg swelling. No headache or dizziness. Patient is being continued on Lasix 40 mg p.o. daily and spironolactone. Current on insulin regimen. Laboratory data showed WBC 9.7 hemoglobin 10.7 platelets 150, sodium 136 potassium 4.7 chloride 97 bicarb is 35 BUN 29 and creatinine 1.09 and blood sugar 140 and vitamin B12 level is less than 150. Nephrology, cardiology and pulmonary is on board. 07/23/2024 Patient sitting on side of the bed. Awake alert and oriented x 3. According oxygen at 2 L via nasal cannula. No complaints of chest pain or worsening shortness of breath. Leg swelling is better. No cough or sputum production. Patient does not use oxygen at home. Home oxygen is being arranged by keycase assembler. Otherwise patient is on Lasix and spironolactone by mouth. Laboratory data showed sodium 134 potassium 4.3 chloride 97 bicarbonate 32 BUN 34 and creatinine 1.22 and blood sugar 155 and calcium 7.9. Anticipate discharge in next 24 hours. PHYSICAL EXAMINATION: GENERAL: The patient is alert and oriented x3, ill appearance, nasal cannula in place HEENT: Pupils are round and equally reacting to light. EOMI. Normocephalic, atraumatic. CARDIOVASCULAR: S1 and S2 present. No murmurs, rubs, or gallops. PULMONARY: Decreased breath sounds bilaterally rhonchi audible ABDOMEN: Soft, nontender, nondistended, normoactive bowel sounds. No palpable organomegaly. MUSCULOSKELETAL: No joint swelling or deformity. EXTREMITIES: 2+ lower extremity edema noted and bilateral lower extremity skin dryness NEUROLOGICAL: Gross neurological examination did not reveal any focal deficits. Objective - Vital Signs Vital signs: Vital Signs Temp 98.0 F 07/23/24 20:00 Pulse 74 07/23/24 20:00 Resp 16 07/23/24 20:00 BP 108/64 07/23/24 20:00 Pulse Ox 94 L 07/23/24 20:00 FiO2 50 07/16/24 08:00 Intake & Output 07/23/24 07/23/24 07/24/24 06:59 18:59 06:59 Intake Total 260 10 Output Total 450 Balance -450 260 10 Weight 111.7 kg Intake: IV 20 10 Invasive Line 2 20 10 Oral 240 Output: Urine 450 Other: Voiding Method External Catheter External Catheter External Catheter - Labs CBC & Chem 7: 07/22/24 06:32 07/23/24 06:48 Labs: Abnormal Lab Results - Last 24 Hours (Table) 07/23/24 07/23/24 07/23/24 Range/Units 06:06 06:48 11:42 Sodium 134 L (137-145) mmol/L Chloride 97 L (98-107) mmol/L Carbon Dioxide 32 H (22-30) mmol/L BUN 34 H (7-17) mg/dL Creatinine 1.22 H (0.52-1.04) mg/dL Glucose 155 H (74-99) mg/dL POC Glucose (mg/dL) 175 H 260 H (70-110) mg/dL Calcium 7.9 L (8.4-10.2) mg/dL 07/23/24 07/23/24 Range/Units 16:27 19:19 Sodium (137-145) mmol/L Chloride (98-107) mmol/L Carbon Dioxide (22-30) mmol/L BUN (7-17) mg/dL Creatinine (0.52-1.04) mg/dL Glucose (74-99) mg/dL POC Glucose (mg/dL) 185 H 256 H (70-110) mg/dL Calcium (8.4-10.2) mg/dL Assessment and Plan Assessment: Assessment: Acute hypoxic respiratory failure secondary to CHF exacerbation Elevated troponin, non-STEMI s/p cardiac cath and PCI to LAD on 07/17 acute on chronic congestive heart failure systolic dysfunction ejection fraction 20 to 25% s/p fall at home Obesity with BMI of 46.4. Diabetes mellitus type II Hypertension Hyperlipidemia History of osteoarthritis Hypothyroidism History of pulmonary embolism factor V Leyden history Plan: in regards to hypoxic respiratory failure patient was titrated down to 2 L, seen by pulmonary medicine in regards to congestive heart failure continue diuretics including Lasix, Aldactone, continue guideline directed medical therapy on losartan and metoprolol in regards to coronary artery disease s/p PCI continue aspirin and Plavix LifeVest to be fitted at the time of discharge. in regards to history of anxiety continue Xanax as needed, trazodone resumed Follow-up renal function. cardiology and pulmonary medicine follow-up Labs and medication were reviewed.. Further recommendations depends on the clinical course of the patient DVT prophylaxis: Subcutaneous heparin GI Prophylaxis: Pepcid PT/OT: Anticipate discharge in the next 24 hours. Time with Patient: Greater than 30
--- NOTE | 2024-07-23 22:18 | P.PN ---
Subjective Progress Note Date: 07/22/24 69 years old female with past medical history of multiple medical problems. Patient brought to the hospital after her found her sick and dizzy restroom. Patient currently on BiPAP, cannot provide much information and it was obtained with the help of the at bedside. As per patient was not feeling weak for more than a week, she is not eating well, she was using a walker. She has been complaining from cough and increasing breathing difficulty he went to see her PCP Dr. Sy who gave her a shot of antibiotics for bronchitis and ear infection. As per yesterday 8 PM she was fine about 3 to 4 AM he heard her asking for help while in the restroom where she was lying confused and he called 911. As per also she has been complaining of from central chest pain through the week. Currently when I asked the patient she denies any chest pain or abdominal pain. She follows commands but she looks very tired. Also she has been having more cough and phlegm lately. Cannot fully clear per . Patient is non-smoker, no alcohol no illicit drugs. Patient herself denies any abdominal pain or tenderness, no urinary symptoms. She is somewhat hypothermic with temperature 96.9. She is tachycardic 110, tachypneic at 22-24. Blood pressure 155/91 She is on BiPAP with FiO2 of 50% with oxygen saturation 92%. pH 7.2, pCO2 is high 65 and pO2 is low 72 Labs showing WBC 9.3, hemoglobin 10.7. Platelet count is normal. INR is unremarkable. Elevated troponin 0.55 proBNP is elevated 2860. Liver enzymes are unremarkable. Albumin 3.2 Urine drug screen is positive for oxycodone and benzodiazepine, serum alcohol less than 10 Influenza A and type B, RSV, SARS (coronavirus) are un CT of the abdomen and pelvis and chest With contrast showing no acute abnormality. Mild pulmonary edema. There is atelectasis/consolidation in the left lower lobe with mild atelectasis also seen in the right lower lobe base, right middle lobe and lingula Echocardiogram in 2019 showed ejection fraction 40 to 45% EKG showing sinus tachycardia [address]-T changes CT of the head and neck is negative for acute process Pelvic x-ray is negative, chest x-ray reviewed by myself showing bilateral lower lobe infiltrate slightly worse than before 07/16 Patient currently in the ICU but at [facility] overflow Patient this morning is sleepy. She is on BiPAP and tolerates that well Daughter Amie at bedside and states she was awake through the night and currently tired. Vitals look stable. Hemoglobin 11 WBC 11.5 She is currently on IV Lasix 40 mg twice daily Pro- Calcitonin is negative at 0.27. Patient currently on Zosyn Patient also on aspirin and Plavix She will need cardiac cath once she stabilizes 07/17 patient is awake alert, she looks more comfortable, she is more awake No significant chest pain Patient feels anxious, as per family she used to take 2 mg of Xanax 3 times daily. We are going to increase her Xanax to 1 mg every 6 hours as needed Patient is going for cardiac cath today Patient a medically stable to go to cardiac cath although she is at some risk. Heparin drip was discontinued and subcutaneous heparin started She remains on aspirin and Plavix Metoprolol and Aldactone started Oxygen saturation acceptable on 3 to 4 L via nasal cannula 07/18 Patient looks tired She is s/p cardiac cath and PCI to LAD for her non-STEMI No chest pain or dyspnea She is kept on aspirin and Plavix She is requesting her Xanax she takes 2 mg 3 times daily. I explained to her is high risk with risk of respiratory depression and/or explained and she agrees now to 1 extra Xanax dose to 1 mg every 6 hours 07/19 Patient seen and evaluated at bedside, patient accompanied by at bedside, patient states shortness of breath has improved however does complain of insomnia, trazodone resumed QTc reviewed 399 from July 1507/20- patient seen and evaluated at bedside, remains on 4 L of oxygen and blood pressure remained stable afebrile. hemoglobin 10.7 remains stable, serum chemistry reviewed creatinine 1.02 blood glucose 137, sodium of 139 potassium 4.9. Patient does complain of insomnia however was resumed back on trazodone 07/21/2024 Patient is sitting in the chair. Awake alert and oriented. Still having bilateral lower extremity swelling. Currently requiring oxygen at 2 L via nasal cannula. Chest x-ray showed cardiomegaly, pulmonary vascular congestion and small left pleural effusion. Correlate with BNP for CHF. Bibasilar patchy airspace opacities which may represent atelectasis versus superimposed pneumonia in the appropriate clinical setting. Laboratory data showed WBC 7.9 hemoglobin 10.8 and platelets 157 sodium 135 potassium 5.0 chloride 96 bicarb is 38 BUN 27 creatinine 1.08 blood sugar 189. Patient is being continued on Lasix 40 mg daily and spironolactone 25 mg daily. Continue on DuoNebs. Cardiology and pulmonary is on board. 07/22/2024 Patient is currently sitting in the chair. Awake alert and oriented x 3. Requiring oxygen at 2 L via nasal cannula. No complaints of chest pain or worsening shortness of breath. Patient still has bilateral leg swelling. No headache or dizziness. Patient is being continued on Lasix 40 mg p.o. daily and spironolactone. Current on insulin regimen. Laboratory data showed WBC 9.7 hemoglobin 10.7 platelets 150, sodium 136 potassium 4.7 chloride 97 bicarb is 35 BUN 29 and creatinine 1.09 and blood sugar 140 and vitamin B12 level is less than 150. Nephrology, cardiology and pulmonary is on board. PHYSICAL EXAMINATION: GENERAL: The patient is alert and oriented x3, ill appearance, nasal cannula in place HEENT: Pupils are round and equally reacting to light. EOMI. Normocephalic, atraumatic. CARDIOVASCULAR: S1 and S2 present. No murmurs, rubs, or gallops. PULMONARY: Decreased breath sounds bilaterally rhonchi audible ABDOMEN: Soft, nontender, nondistended, normoactive bowel sounds. No palpable organomegaly. MUSCULOSKELETAL: No joint swelling or deformity. EXTREMITIES: 2+ lower extremity edema noted and bilateral lower extremity skin dryness NEUROLOGICAL: Gross neurological examination did not reveal any focal deficits. Objective - Vital Signs Vital signs: Vital Signs Temp 98.3 F 07/22/24 19:42 Pulse 74 07/22/24 19:42 Resp 18 07/22/24 19:42 BP 112/70 07/22/24 19:42 Pulse Ox 94 L 07/22/24 19:42 FiO2 50 07/16/24 08:00 Intake & Output 07/22/24 07/22/24 07/23/24 06:59 18:59 06:59 Intake Total 20 200 Output Total 350 450 Balance -330 200 -450 Weight 112.491 kg Intake: IV 20 20 Invasive Line 2 20 20 Oral 180 Output: Urine 350 450 Other: Voiding Method External Catheter External Catheter External Catheter - Labs CBC & Chem 7: 07/22/24 06:32 07/23/24 06:48 Labs: Abnormal Lab Results - Last 24 Hours (Table) 07/22/24 07/22/24 07/22/24 Range/Units 06:22 06:32 06:32 RBC 3.46 L (3.80-5.40) m/uL Hgb 10.7 L (11.4-16.0) gm/dL MCV 100.3 H (80.0-100.0) fL MCHC 30.8 L (31.0-37.0) g/dL RDW 15.6 H (11.5-15.5) % Neutrophils # 7.8 H (1.3-7.7) k/uL Sodium 136 L (137-145) mmol/L Chloride 97 L (98-107) mmol/L Carbon Dioxide 35 H (22-30) mmol/L BUN 29 H (7-17) mg/dL Creatinine 1.06 H (0.52-1.04) mg/dL Glucose 140 H (74-99) mg/dL POC Glucose (mg/dL) 147 H (70-110) mg/dL Calcium 8.1 L (8.4-10.2) mg/dL Vitamin B12 <150.0 L (200.0-944.0) pg/mL 07/22/24 07/22/24 07/22/24 Range/Units 12:19 16:35 19:54 RBC (3.80-5.40) m/uL Hgb (11.4-16.0) gm/dL MCV (80.0-100.0) fL MCHC (31.0-37.0) g/dL RDW (11.5-15.5) % Neutrophils # (1.3-7.7) k/uL Sodium (137-145) mmol/L Chloride (98-107) mmol/L Carbon Dioxide (22-30) mmol/L BUN (7-17) mg/dL Creatinine (0.52-1.04) mg/dL Glucose (74-99) mg/dL POC Glucose (mg/dL) 186 H 250 H 274 H (70-110) mg/dL Calcium (8.4-10.2) mg/dL Vitamin B12 (200.0-944.0) pg/mL Assessment and Plan Assessment: Assessment: Acute hypoxic respiratory failure secondary to CHF exacerbation Elevated troponin, non-STEMI s/p cardiac cath and PCI to LAD on 07/17 acute on chronic congestive heart failure systolic dysfunction ejection fraction 20 to 25% s/p fall at home Obesity with BMI of 46.4. Diabetes mellitus type II Hypertension Hyperlipidemia History of osteoarthritis Hypothyroidism History of pulmonary embolism factor V [place] history Plan: in regards to hypoxic respiratory failure patient was titrated down to 2 L, seen by pulmonary medicine in regards to congestive heart failure continue diuretics including Lasix, Aldactone, continue guideline directed medical therapy on losartan and metoprolol in regards to coronary artery disease s/p PCI continue aspirin and Plavix in regards to history of anxiety continue Xanax as needed, trazodone resumed Follow-up renal function. cardiology and pulmonary medicine follow-up Labs and medication were reviewed.. Further recommendations depends on the clinical course of the patient DVT prophylaxis: Subcutaneous heparin GI Prophylaxis: Pepcid PT/OT: to be determined discharge disposition Time with Patient: Greater than 30
[2024-07-24 05:33] LABS: Glucose,Whole Blood 198 mg/dL (70-110)
[2024-07-24 08:03] LABS: Anisocytosis Slight; Basophils % (A) 0 %; Eosinophils # (A) 0.2 k/uL (0-0.7); Eosinophils % (A) 2 %; HGB 9.7 gm/dL (11.4-16.0); Hypochromasia Moderate; Lymphocytes # (A) 1.3 k/uL (1.0-4.8); Lymphocytes % (A) 17 %; MCH 31.4 pg (25.0-35.0); MCHC 31.4 g/dL (31.0-37.0); MCV 99.9 fL (80.0-100.0); Macrocytosis Slight; Mean Platelet Volume 10.4; Monocytes # (A) 0.4 k/uL (0-1.0); Monocytes % (A) 5 %; Neutrophils # (A) 5.8 k/uL (1.3-7.7); Neutrophils % (A) 74 %; Platelet Count 141 k/uL (150-450); RDW 16.1 % (11.5-15.5); WBC 7.8 k/uL (3.8-10.6)
[2024-07-24] MEDS: CYANOCOBALAMIN 500 MCG TAB PO SCH (08:09)
[2024-07-24 08:14] LABS: African American GFR (CKD) 50 (>60 ml/min/1.73 sqM); Anion Gap 5 mmol/L; Blood Urea Nitrogen 39 mg/dL (7-17); Calcium 7.8 mg/dL (8.4-10.2); Carbon Dioxide 32 mmol/L (22-30); Chloride 96 mmol/L (98-107); Glucose 200 mg/dL (74-99); Non-African American GFR(CKD) 43 (>60 ml/min/1.73 sqM); Potassium 4.2 mmol/L (3.5-5.1); Sodium 133 mmol/L (137-145)
[2024-07-24 11:31] LABS: Glucose,Whole Blood 302 mg/dL (70-110)
[2024-07-24] MEDS: ACETAMINOPHEN TAB 325 MG TAB PO PRN (16:38)
[2024-07-24 16:58] LABS: Glucose,Whole Blood 251 mg/dL (70-110)
--- NOTE | 2024-07-24 18:43 | P.PN ---
Subjective Progress Note Date: 07/24/24 This is a 69-year-old female patient with multiple comorbidities including DVT, diabetes mellitus, hypertension, myocardial infarction, congestive heart failure, hypertension, factor V, former smoker. The patient was found down in her bathroom at home earlier this morning. EMS was called and she was blue on arrival and with a 50% O2 saturation. They placed her on nonrebreather and transferred her here. She was then placed on BiPAP 14/6 and 50% FiO2. Arterial blood gases revealed a PaO2 of 72, CO2 of 65 and a pH of 7.23 on 50%. Urine drug screen was positive for oxycodone and benzodiazepines. Troponin initially 0.55 then elevated at 2.96. White count 9.3. Hemoglobin 10.7. Platelets 204. Sodium 134. Potassium 4.9. Bicarb 27. BUN 17. Creatinine 0.88. Glucose 368. proBNP 2860. Viral screen negative. Chest x-ray revealed small bilateral pleural effusion and atelectasis. Mild pulmonary edema. No evidence of pneumothorax. CT scan of the head revealed no acute intracranial abnormalities. No cervical fractures. CT scan of the chest revealed small bilateral pleural effusions with atelectasis. Mild pulmonary edema. No evidence of acute trauma injury to the abdomen or pelvis. She is seen today in consultation in the emergency department. She remains on BiPAP. She is laying on her left side on the stretcher. She is awake and alert. Family is at the bedside. The patient is seen today July 16, 2024 in follow-up on the regular medical floor. She is currently sitting up in bed. Awake and alert in no acute distress. She is maintaining O2 saturations in the 90s on BiPAP currently 14/6 and 50% FiO2. She denies any significant shortness of breath, cough or c ongestion. She is still having some abdominal discomfort. Her procalcitonin was negative at 0.27. Zosyn will be discontinued. She remains on a heparin drip. She did rule in for non-ST segment elevation myocardial infarction. She is receiving Lasix 40 mg IV every 12 hours. Chest x-ray showing diminishing bilateral lung infiltrates. Count 11.5. Hemoglobin 11.0. Platelets 218. Sodium 138. Potassium 5.0. Bicarb 33. BUN 25. Creatinine 0.90. Glucose 329. Her hemoglobin A1c is 9.7. Remains on Levemir and Novolog sliding scale. Progress note dated July 17, 2024. The patient is seen today in room 361. He is currently on 3 L oxygen. She is receiving IV heparin. Her ejection fraction by echocardiogram is 20 to 25%. The patient is scheduled to have a cardiac catheterization today. She was admitted with a diagnosis of non-ST segment elevation myocardial infarction. Clinically, the patient remains relatively stable. White count 8.2, hemoglobin 10.5, macro 34.3, and platelet count was normal. PTT of 45.3. Sodium 136, potassium 4.2, chlorides 99, CO2 35, anion gap 2, BUN 29, creatinine 0.93. Progress note dated July 18, 2024. The patient is seen today in room 361. The patient is currently on 4 L of oxygen. The patient is getting saline at 10 cc an hour. The patient apparently did not use the BiPAP device last night. Current labs include a glucose of 181. The patient had a percutaneous coronary intervention, of the LAD, yesterday. The patient apparently tolerated the procedure well. Progress note dated July 19, 2024. 69-year-old female who seen today in room 361. The patient currently remains on oxygen, 4 L. She is getting saline at 10 cc an hour. No new labs today other than a glucose of 210. The patient did have a PCI yesterday, and stent placement, in her LAD. The patient tolerated the procedure well. The patient has no new complaints today. She denies any significant shortness of breath, or chest discomfort. Current labs include a white count 7.8, hemoglobin 10.7, hematocrit 35.2, and a normal platelet count. Sodium 139, potassium 4.9, chlorides 97, CO2 40, BUN 24, creatinine 1.02. Calcium is 8.2. N-terminal pro BNP is elevated at 4880. On 07/21/2024, the patient is being seen for a follow-up. The patient is currently on 2 L of oxygen by nasal cannula and she seems to be calm and comfortable. She is status post a fall which brought into the hospital and the patient was found to be in acute hypoxic respiratory failure. She was diagnosed having systolic heart failure with severe impairment of the LV function with an ejection fraction of 20 to 25%. She also sustained an acute non-ST segment elevation myocardial infarction and the patient is status post PCI and stenting of the LAD that was done on 07/17/2024. The patient is diabetic. On today's evaluation, she is on 2 L of oxygen by nasal cannula with a pulse ox of 93%. Repeat chest x-ray was done today this morning and it showed cardiomegaly and pulm vessel congestion and a small left-sided pleural effusion. Bibasilar patchy airspace opacities/atelectasis were also present. The patient remains on aspirin and Plavix. The patient is on Lasix 40 mg p.o. daily. The patient on metoprolol 50 mg twice a day and Aldactone 25 mg p.o. daily. The patient is also on Lipitor 80 mg p.o. daily patient is on Synthroid 200 mcg p.o. on a daily basis. She is also on Cozaar 12.5 mg p.o. daily for blood pressure monitoring and management and the patient is also on Levemir insulin 60 units twice daily for blood sugar control. No other significant events overnight. In terms of her blood work, the patient's white cell count is 7.9 with a hemoglobin 10.8 and a platelet count of 157. BUN is 27 with a creatinine of 1.08 and a sodium levels at 135. On 07/22/2024, patient is being seen for a follow-up. No new complaints. The patient remains on oxygen and she is on 2 L of O2 nasal cannula with a pulse ox of 95%. Remains on DuoNeb of chest 4 times a day [id number]. She remains on a combination of Lasix 40 mg p.o. daily and Aldactone 25 mg p.o. daily. She is on metoprolol 50 mg twice daily and losartan 12.5 mg p.o. daily. The patient is on Lipitor 80 mg p.o. daily. Blood work from today shows a WBC of 9.7 with a hemoglobin of 10.7 and a platelet count of 150. BUN is 29 with a creatinine of 1.06 and a sodium levels at 136. She is chronically debilitated. She is willing to go home and she has her as her main caregiver. As mentioned earlier, the patient has systolic heart failure post an acute an NST elevation myocardial infarction and the patient has an ejection fraction of 20 to 25% and the patient will require a LifeVest at the time of discharge. The patient is status post PCI and stenting of the LAD. She is diabetic on Levemir. On 07/23/2024, the patient is being seen for a follow-up. No new complaints. She remains on oxygen 2 L/min nasal cannula. Profoundly weak. Was able to sit up on a recliner as she is the patient was able to pivot herself with a walker and move herself to her recliner. Medications remain essentially unchanged. She is feeling weak and sometimes dizzy. No recent CBC from today. Electrolytes from today shows a BUN of 34 with a creatinine of 1.22 and a sodium levels at 134 and a potassium level is at 4.3. Serum bicarb is at 32. As for the rest of the medications, she remains on aspirin and Plavix. She remains on Cozaar 12.5 mg p.o. daily metoprolol 50 mg p.o. twice a day and she is also on a combination of Lasix 40 mg p.o. daily and Aldactone 25 mg p.o. daily. No other significant events otherwise. She was given a LifeVest. She remains on Levemir insulin. On 07/24/2024, the patient is being seen for a follow-up. Patient is calm and comfortable and she is resting comfortably in bed and she is on 2 L of oxygen by nasal cannula with a pulse ox of 91%. Denies having any specific complaints. She is interested in going home and the main caregiver will be her . She remains quite weak and debilitated. Nevertheless, she is interested in d ischarge. Blood work shows a WBC count of 7.8 with a hemoglobin 9.7 and a platelet count of 141. BUN 39 with a creatinine of 1.26 and a sodium levels at 133 and a potassium level is at 4.2. No new complaints otherwise. She is maintained on a combination of Lasix and Aldactone. She is also on DuoNeb nebulized treatments [id number]. She has home O2. She is on Levemir insulin 60 units twice daily and NovoLog sliding scale coverage. She remains on aspirin and Plavix. Objective - Vital Signs Vital signs: Vital Signs Temp 98.5 F 07/24/24 08:00 Pulse 72 07/24/24 08:00 Resp 16 07/24/24 08:00 BP 104/61 07/24/24 08:00 Pulse Ox 92 L 07/24/24 08:00 FiO2 50 07/16/24 08:00 Intake & Output 07/23/24 07/24/24 07/24/24 18:59 06:59 18:59 Intake Total 260 20 128 Output Total 500 Balance 260 20 -372 Weight 113.8 kg Intake: IV 20 20 10 Invasive Line 2 20 20 10 Oral 240 118 Output: Urine 500 Other: Voiding Method External Catheter External Catheter External Catheter - Exam No acute distress, oriented 3. The patient is currently on 2 L nasal cannula. No respiratory distress. She is awake and alert. HEENT examination is grossly unremarkable. Mucous membranes are moist. No oral lesions. Neck supple. Full range of motion. No adenopathy thyromegaly or neck vein distention. Cardiovascular examination reveals regular rhythm rate. S1-S2 normal. No S3 or S4. No discernible murmur noted. Lungs reveal bibasilar crackles. No wheezes. No rhonchi. Breath sounds equal bilaterally. Abdomen soft bowel sounds are heard. No masses or tenderness. Extremities are intact. Mild lower extremity edema. No cyanosis or clubbing. Skin is without rash or lesion. Neurologic examination is brief but nonfocal. - Labs CBC & Chem 7: 07/24/24 07:01 07/24/24 07:01 Labs: Abnormal Lab Results - Last 24 Hours (Table) 07/23/24 07/23/24 07/23/24 Range/Units 11:42 16:27 19:19 RBC (3.80-5.40) m/uL Hgb (11.4-16.0) gm/dL Hct (34.0-46.0) % RDW (11.5-15.5) % Plt Count (150-450) k/uL Sodium (137-145) mmol/L Chloride (98-107) mmol/L Carbon Dioxide (22-30) mmol/L BUN (7-17) mg/dL Creatinine (0.52-1.04) mg/dL Glucose (74-99) mg/dL POC Glucose (mg/dL) 260 H 185 H 256 H (70-110) mg/dL Calcium (8.4-10.2) mg/dL 07/24/24 07/24/24 07/24/24 Range/Units 05:31 07:01 07:01 RBC 3.10 L (3.80-5.40) m/uL Hgb 9.7 L (11.4-16.0) gm/dL Hct 31.0 L (34.0-46.0) % RDW 16.1 H (11.5-15.5) % Plt Count 141 L (150-450) k/uL Sodium 133 L (137-145) mmol/L Chloride 96 L (98-107) mmol/L Carbon Dioxide 32 H (22-30) mmol/L BUN 39 H (7-17) mg/dL Creatinine 1.26 H (0.52-1.04) mg/dL Glucose 200 H (74-99) mg/dL POC Glucose (mg/dL) 198 H (70-110) mg/dL Calcium 7.8 L (8.4-10.2) mg/dL Assessment and Plan Plan: Fall at home in her bathroom, unwitnessed. Acute hypoxemic respiratory failure suspect secondary to acute exacerbation of chronic systolic congestive heart. Severely impaired left ventricular systolic function with an ejection fraction 20 to 25%. The patient remains on oxygen 2 L/min nasal cannula. Chest x-ray from 07/21/2024 shows cardiomegaly, pulm vessel congestion and a small left pleural effusion. Systolic heart failure with impaired ejection fraction of 20 to 25% Small left-sided pleural effusion, likely secondary to above Non-ST elevation myocardial infarction, S/P PCI of her LAD, on 07/17/2024, currently on a combination of aspirin and Plavix. The patient is also on metoprolol and high-dose statins. Coronary artery disease with previous stent placement. The patient also has pre vious history of myocardial infarction. Hypertension. Maintained on losartan for blood pressure control. Hyperlipidemia. 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 Diabetes mellitus, type II.The patient is on Levemir insulin 60 units twice a day Former smoker Plan: Clinically stable and the patient should be able to go home with close supervision. will be the main caregiver. Continue oxygen at 2 L/min nasal cannula Continue Lasix and Aldactone Continue aspirin and Plavix Continue metoprolol 50 mg p.o. twice a day Losartan for blood pressure control 12.5 mg p.o. daily Lipitor 80 mg p.o. daily Levemir insulin Arranged LifeVest to be given to her at the time of discharge The patient is quite debilitated and essentially nonambulatory, is the main caregiver Incentive spirometer Pulmonary critical care services will sign off.
[2024-07-24 20:34] LABS: Glucose,Whole Blood 270 mg/dL (70-110)
[2024-07-25 06:05] LABS: Glucose,Whole Blood 137 mg/dL (70-110)
[2024-07-25 10:35] LABS: Basophils # (A) 0.02 X 10*3/uL (0.00-0.10); Basophils % (A) 0.3 %; Eosinophils # (A) 0.18 X 10*3/uL (0.04-0.35); Eosinophils % (A) 2.3 %; HCT 33.4 % (39.6-50.0); HGB 9.9 g/dL (13.0-17.0); Lymphocytes # (A) 1.31 X 10*3/uL (0.90-5.00); Lymphocytes % (A) 16.8 %; MCH 30.7 pg (27.0-32.0); MCHC 29.6 g/dL (32.0-37.0); MCV 103.4 FL (80.0-97.0); Mean Platelet Volume 12.3 FL (9.5-12.2); Monocytes # (A) 0.61 X 10*3/uL (0.20-1.00); Monocytes % (A) 7.8 %; NRBC Per 100 WBC 0 X 10*3/uL (0.00-0.01); Neutrophils # (A) 5.64 X 10*3/uL (1.80-7.70); Neutrophils % (A) 72.4 %; Platelet Count 155 X 10*3/uL (140-440); RBC 3.23 X 10*6/uL (4.40-5.60); WBC 7.79 X 10*3/uL (4.50-10.00)
[2024-07-25 10:54] LABS: Calcium 8.1 mg/dL (8.7-10.3); Carbon Dioxide 31.3 mmol/L (21.6-31.8); Chloride 96 mmol/L (96-109); Glucose 132 mg/dL (70-110); Potassium 4.9 mmol/L (3.5-5.5); Sodium 135 mmol/L (135-145)
[2024-07-25 11:38] LABS: Glucose,Whole Blood 166 mg/dL (70-110)
[2024-07-25 15:02] VITALS: BP 103/57; PULSE 76; RESP 16; TEMP 98.9
--- NOTE | 2024-07-25 15:23 | P.PN ---
Subjective Progress Note Date: 07/25/24 This is a 69-year-old female patient with multiple comorbidities including DVT, diabetes mellitus, hypertension, myocardial infarction, congestive heart failure, hypertension, factor V, former smoker. The patient was found down in her bathroom at home earlier this morning. EMS was called and she was blue on arrival and with a 50% O2 saturation. They placed her on nonrebreather and transferred her here. She was then placed on BiPAP 14/6 and 50% FiO2. Arterial blood gases revealed a PaO2 of 72, CO2 of 65 and a pH of 7.23 on 50%. Urine drug screen was positive for oxycodone and benzodiazepines. Troponin initially 0.55 then elevated at 2.96. White count 9.3. Hemoglobin 10.7. Platelets 204. Sodium 134. Potassium 4.9. Bicarb 27. BUN 17. Creatinine 0.88. Glucose 368. proBNP 2860. Viral screen negative. Chest x-ray revealed small bilateral pleural effusion and atelectasis. Mild pulmonary edema. No evidence of pneumothorax. CT scan of the head revealed no acute intracranial abnormalities. No cervical fractures. CT scan of the chest revealed small bilateral pleural effusions with atelectasis. Mild pulmonary edema. No evidence of acute trauma injury to the abdomen or pelvis. She is seen today in consultation in the emergency department. She remains on BiPAP. She is laying on her left side on the stretcher. She is awake and alert. Family is at the bedside. The patient is seen today July 16, 2024 in follow-up on the regular medical floor. She is currently sitting up in bed. Awake and alert in no acute distress. She is maintaining O2 saturations in the 90s on BiPAP currently 14/6 and 50% FiO2. She denies any significant shortness of breath, cough or c ongestion. She is still having some abdominal discomfort. Her procalcitonin was negative at 0.27. Zosyn will be discontinued. She remains on a heparin drip. She did rule in for non-ST segment elevation myocardial infarction. She is receiving Lasix 40 mg IV every 12 hours. Chest x-ray showing diminishing bilateral lung infiltrates. Count 11.5. Hemoglobin 11.0. Platelets 218. Sodium 138. Potassium 5.0. Bicarb 33. BUN 25. Creatinine 0.90. Glucose 329. Her hemoglobin A1c is 9.7. Remains on Levemir and Novolog sliding scale. Progress note dated July 17, 2024. The patient is seen today in room 361. He is currently on 3 L oxygen. She is receiving IV heparin. Her ejection fraction by echocardiogram is 20 to 25%. The patient is scheduled to have a cardiac catheterization today. She was admitted with a diagnosis of non-ST segment elevation myocardial infarction. Clinically, the patient remains relatively stable. White count 8.2, hemoglobin 10.5, macro 34.3, and platelet count was normal. PTT of 45.3. Sodium 136, potassium 4.2, chlorides 99, CO2 35, anion gap 2, BUN 29, creatinine 0.93. Progress note dated July 18, 2024. The patient is seen today in room 361. The patient is currently on 4 L of oxygen. The patient is getting saline at 10 cc an hour. The patient apparently did not use the BiPAP device last night. Current labs include a glucose of 181. The patient had a percutaneous coronary intervention, of the LAD, yesterday. The patient apparently tolerated the procedure well. Progress note dated July 19, 2024. 69-year-old female who seen today in room 361. The patient currently remains on oxygen, 4 L. She is getting saline at 10 cc an hour. No new labs today other than a glucose of 210. The patient did have a PCI yesterday, and stent placement, in her LAD. The patient tolerated the procedure well. The patient has no new complaints today. She denies any significant shortness of breath, or chest discomfort. Current labs include a white count 7.8, hemoglobin 10.7, hematocrit 35.2, and a normal platelet count. Sodium 139, potassium 4.9, chlorides 97, CO2 40, BUN 24, creatinine 1.02. Calcium is 8.2. N-terminal pro BNP is elevated at 4880. On 07/21/2024, the patient is being seen for a follow-up. The patient is currently on 2 L of oxygen by nasal cannula and she seems to be calm and comfortable. She is status post a fall which brought into the hospital and the patient was found to be in acute hypoxic respiratory failure. She was diagnosed having systolic heart failure with severe impairment of the LV function with an ejection fraction of 20 to 25%. She also sustained an acute non-ST segment elevation myocardial infarction and the patient is status post PCI and stenting of the LAD that was done on 07/17/2024. The patient is diabetic. On today's evaluation, she is on 2 L of oxygen by nasal cannula with a pulse ox of 93%. Repeat chest x-ray was done today this morning and it showed cardiomegaly and pulm vessel congestion and a small left-sided pleural effusion. Bibasilar patchy airspace opacities/atelectasis were also present. The patient remains on aspirin and Plavix. The patient is on Lasix 40 mg p.o. daily. The patient on metoprolol 50 mg twice a day and Aldactone 25 mg p.o. daily. The patient is also on Lipitor 80 mg p.o. daily patient is on Synthroid 200 mcg p.o. on a daily basis. She is also on Cozaar 12.5 mg p.o. daily for blood pressure monitoring and management and the patient is also on Levemir insulin 60 units twice daily for blood sugar control. No other significant events overnight. In terms of her blood work, the patient's white cell count is 7.9 with a hemoglobin 10.8 and a platelet count of 157. BUN is 27 with a creatinine of 1.08 and a sodium levels at 135. On 07/22/2024, patient is being seen for a follow-up. No new complaints. The patient remains on oxygen and she is on 2 L of O2 nasal cannula with a pulse ox of 95%. Remains on DuoNeb of chest 4 times a day [id number]. She remains on a combination of Lasix 40 mg p.o. daily and Aldactone 25 mg p.o. daily. She is on metoprolol 50 mg twice daily and losartan 12.5 mg p.o. daily. The patient is on Lipitor 80 mg p.o. daily. Blood work from today shows a WBC of 9.7 with a hemoglobin of 10.7 and a platelet count of 150. BUN is 29 with a creatinine of 1.06 and a sodium levels at 136. She is chronically debilitated. She is willing to go home and she has her as her main caregiver. As mentioned earlier, the patient has systolic heart failure post an acute an NST elevation myocardial infarction and the patient has an ejection fraction of 20 to 25% and the patient will require a LifeVest at the time of discharge. The patient is status post PCI and stenting of the LAD. She is diabetic on Levemir. On 07/23/2024, the patient is being seen for a follow-up. No new complaints. She remains on oxygen 2 L/min nasal cannula. Profoundly weak. Was able to sit up on a recliner as she is the patient was able to pivot herself with a walker and move herself to her recliner. Medications remain essentially unchanged. She is feeling weak and sometimes dizzy. No recent CBC from today. Electrolytes from today shows a BUN of 34 with a creatinine of 1.22 and a sodium levels at 134 and a potassium level is at 4.3. Serum bicarb is at 32. As for the rest of the medications, she remains on aspirin and Plavix. She remains on Cozaar 12.5 mg p.o. daily metoprolol 50 mg p.o. twice a day and she is also on a combination of Lasix 40 mg p.o. daily and Aldactone 25 mg p.o. daily. No other significant events otherwise. She was given a LifeVest. She remains on Levemir insulin. On 07/24/2024, the patient is being seen for a follow-up. Patient is calm and comfortable and she is resting comfortably in bed and she is on 2 L of oxygen by nasal cannula with a pulse ox of 91%. Denies having any specific complaints. She is interested in going home and the main caregiver will be her . She remains quite weak and debilitated. Nevertheless, she is interested in d ischarge. Blood work shows a WBC count of 7.8 with a hemoglobin 9.7 and a platelet count of 141. BUN 39 with a creatinine of 1.26 and a sodium levels at 133 and a potassium level is at 4.2. No new complaints otherwise. She is maintained on a combination of Lasix and Aldactone. She is also on DuoNeb nebulized treatments [id number]. She has home O2. She is on Levemir insulin 60 units twice daily and NovoLog sliding scale coverage. She remains on aspirin and Plavix. On 07/25/2024, the patient is stable. She is on oxygen at 2 L with a pulse ox of 94%. Arrangements are being made to discharge patient home on home O2 with a concentrator and portable tanks and the patient will also need a LifeVest. The hemoglobin is at 9.9 with a white cell count of 7.7. BUN 36 with a creatinine of 1.6. She is free of any chest pain. She is sitting up in a chair. She is calm and comfortable. She remains on aspirin and Plavix. She remains on metoprolol 50 mg p.o. twice a day. She is also on Aldactone 25 mg p.o. Lasix 40 mg p.o. daily. Her statins in the form of Lipitor 80 mg p.o. daily. Trace edema lower extremities still present. No altered mentation. No chest pain. No other significant events overnight. Objective - Vital Signs Vital signs: Vital Signs Temp 98.7 F 07/25/24 07:06 Pulse 72 07/25/24 07:06 Resp 17 07/25/24 07:06 BP 104/63 07/25/24 07:06 Pulse Ox 91 L 07/25/24 08:26 FiO2 50 07/16/24 08:00 Intake & Output 07/24/24 07/25/24 07/25/24 18:59 06:59 18:59 Intake Total 538 Output Total 500 Balance 38 Intake: IV 20 Invasive Line 2 20 Oral 518 Output: Urine 500 Other: Voiding Method External Catheter Toilet # Voids 1 - Exam No acute distress, oriented 3. The patient is currently on 2 L nasal cannula. No respiratory distress. She is awake and alert. HEENT examination is grossly unremarkable. Mucous membranes are moist. No oral lesions. Neck supple. Full range of motion. No adenopathy thyromegaly or neck vein distention. Cardiovascular examination reveals regular rhythm rate. S1-S2 normal. No S3 or S4. No discernible murmur noted. Lungs reveal bibasilar crackles. No wheezes. No rhonchi. Breath sounds equal bilaterally. Abdomen soft bowel sounds are heard. No masses or tenderness. Extremities are intact. Mild lower extremity edema. No cyanosis or clubbing. Skin is without rash or lesion. Neurologic examination is brief but nonfocal. - Labs CBC & Chem 7: 07/25/24 06:06 07/25/24 06:06 Labs: Abnormal Lab Results - Last 24 Hours (Table) 07/24/24 07/24/24 07/25/24 Range/Units 16:57 20:32 06:04 RBC (4.40-5.60) X 10*6/uL Hgb (13.0-17.0) g/dL Hct (39.6-50.0) % MCV (80.0-97.0) FL MCHC (32.0-37.0) g/dL RDW (11.5-14.5) % MPV (9.5-12.2) FL BUN (9.0-27.0) mg/dL Creatinine (0.6-1.5) mg/dL Est GFR (CKD-EPI) (>=60) BUN/Creatinine Ratio (12.00-20.00) Ratio Glucose (70-110) mg/dL POC Glucose (mg/dL) 251 H 270 H 137 H (70-110) mg/dL Calcium (8.7-10.3) mg/dL 07/25/24 07/25/24 07/25/24 Range/Units 06:06 06:06 11:37 RBC 3.23 L (4.40-5.60) X 10*6/uL Hgb 9.9 L (13.0-17.0) g/dL Hct 33.4 L (39.6-50.0) % MCV 103.4 H (80.0-97.0) FL MCHC 29.6 L (32.0-37.0) g/dL RDW 16.0 H (11.5-14.5) % MPV 12.3 H (9.5-12.2) FL BUN 36.0 H (9.0-27.0) mg/dL Creatinine 1.6 H (0.6-1.5) mg/dL Est GFR (CKD-EPI) 46 L (>=60) BUN/Creatinine Ratio 22.50 H (12.00-20.00) Ratio Glucose 132 H (70-110) mg/dL POC Glucose (mg/dL) 166 H (70-110) mg/dL Calcium 8.1 L (8.7-10.3) mg/dL Assessment and Plan Plan: Fall at home in her bathroom, unwitnessed. Acute hypoxemic respiratory failure suspect secondary to acute exacerbation of c hronic systolic congestive heart. Severely impaired left ventricular systolic function with an ejection fraction 20 to 25%. The patient remains on oxygen 2 L/min nasal cannula. Chest x-ray from 07/21/2024 shows cardiomegaly, pulm vessel congestion and a small left pleural effusion. Systolic heart failure with impaired ejection fraction of 20 to 25% Acute hypoxic respiratory failure, remains on 2 L of oxygen by nasal cannula. The patient will likely need home O2. Acute kidney injury, likely secondary to cardiorenal factors Small left-sided pleural effusion, likely secondary to above Non-ST elevation myocardial infarction, S/P PCI of her LAD, on 07/17/2024, currently on a combination of aspirin and Plavix. The patient is also on metoprolol and high-dose statins. Coronary artery disease with previous stent placement. The patient also has previous history of myocardial infarction. Hypertension. Maintained on losartan for blood pressure control. Hyperlipidemia. 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 Diabetes mellitus, type II.The patient is on Levemir insulin 60 units twice a day Former smoker Plan: .Continue oxygen at 2 L/min nasal cannula Continue Lasix and Aldactone Continue aspirin and Plavix Continue metoprolol 50 mg p.o. twice a day Losartan for blood pressure control 12.5 mg p.o. daily Lipitor 80 mg p.o. daily Levemir insulin monitor renal function as the patient's creatinine is up to 1.6 Arranged LifeVest to be given to her at the time of discharge The patient is quite debilitated and essentially nonambulatory, is the main caregiver Incentive spirometer Will continue to follow
[2024-07-25 17:54] LABS: Glucose,Whole Blood 223 mg/dL (70-110)
== END 2024-07-25 18:11 | disposition home health service (06) | DRG 321 ==
LOC: EC 05:42 → 3SCARD 07:38 → 2SICU 20:35 → 3SCARD 07-16 18:41 → 4SSUR 07-24 15:55
PROVIDERS: ADMIT Hospitalist; ATTEND Hospitalist
PROC: 5A09457 Assistance with Respiratory Ventilation, 24-96 Consecutive Hours, Continuous Positive Airway Pressure (ICD-10-PCS; 2024-07-15)
PROC: B2111ZZ Fluoroscopy of Multiple Coronary Arteries using Low Osmolar Contrast (ICD-10-PCS; 2024-07-17)
PROC: B240ZZ3 Ultrasonography of Single Coronary Artery, Intravascular (ICD-10-PCS; 2024-07-17)
PROC: 027034Z Dilation of Coronary Artery, One Artery with Drug-eluting Intraluminal Device, Percutaneous Approach (ICD-10-PCS; principal; 2024-07-17 12:00)
PROC: 4A023N7 Measurement of Cardiac Sampling and Pressure, Left Heart, Percutaneous Approach (ICD-10-PCS; 2024-07-17 12:00)
PROC: B2151ZZ Fluoroscopy of Left Heart using Low Osmolar Contrast (ICD-10-PCS; 2024-07-17 12:00)
DX: I21.4 Non-ST elevation (NSTEMI) myocardial infarction (principal); I50.43 Acute on chronic combined systolic (congestive) and diastolic (congestive) heart failure; J96.21 Acute and chronic respiratory failure with hypoxia; Z68.41 Body mass index [BMI] 40.0-44.9, adult; D68.51 Activated protein C resistance; I42.9 Cardiomyopathy, unspecified; N17.9 Acute kidney failure, unspecified; J98.11 Atelectasis; E11.65 Type 2 diabetes mellitus with hyperglycemia; E78.5 Hyperlipidemia, unspecified; M19.90 Unspecified osteoarthritis, unspecified site; K21.9 Gastro-esophageal reflux disease without esophagitis; E66.01 Morbid (severe) obesity due to excess calories; I11.0 Hypertensive heart disease with heart failure; I25.10 Atherosclerotic heart disease of native coronary artery without angina pectoris; G89.4 Chronic pain syndrome; J44.9 Chronic obstructive pulmonary disease, unspecified; E03.9 Hypothyroidism, unspecified; E11.51 Type 2 diabetes mellitus with diabetic peripheral angiopathy without gangrene; T50.1X6A Underdosing of loop [high-ceiling] diuretics, initial encounter; G47.00 Insomnia, unspecified; F41.0 Panic disorder [episodic paroxysmal anxiety]; W19.XXXA Unspecified fall, initial encounter; Z79.890 Hormone replacement therapy; Z79.82 Long term (current) use of aspirin; Z88.8 Allergy status to other drugs, medicaments and biological substances; Z88.6 Allergy status to analgesic agent; Z91.041 Radiographic dye allergy status; Y92.009 Unspecified place in unspecified non-institutional (private) residence as the place of occurrence of the external cause; Z86.711 Personal history of pulmonary embolism; Z91.148 Patient's other noncompliance with medication regimen for other reason; I25.2 Old myocardial infarction; Z87.891 Personal history of nicotine dependence; Z95.5 Presence of coronary angioplasty implant and graft; Z79.4 Long term (current) use of insulin; Z87.440 Personal history of urinary (tract) infections; Z90.710 Acquired absence of both cervix and uterus
CPT/HCPCS: 36415; 36600; 70450; 71045; 71260; 72125; 72170; 74177; 80048; 80053; 80061; 80306; 80320; 82550; 82607; 82747; 82805; 83036; 83540; 83550; 83605; 83880; 84145; 84439; 84443; 84481; 84484; 85025; 85027; 85610; 85730; 86850; 86870; 86880; 86900; 86901; 86902; 87040; 87636; 92978; 93005; 93306; 93458; 94660; 94760; 96361; 96365; 96366; 96368; 96375; 96376; 99291

== ENCOUNTER 2024-07-26 11:58 | Inpatient (IN) | payer MEDICARE, BC ==
[2024-07-26 13:18] LABS: VBG PH 7.27 (7.31-7.41)
[2024-07-26 13:30] LABS: Prothrombin Time 11.3 sec (10.0-12.5)
--- NOTE | 2024-07-26 13:30 | XR ---
EXAMINATION TYPE: XR chest 2V DATE OF EXAM: 07/26/2024 1:16 PM COMPARISON: Chest radiographs from 07/21/2024 CLINICAL INDICATION: Female, 69 years old with history of altered mental status; [facility] TECHNIQUE: XR chest 2V Frontal and lateral views of the chest. FINDINGS: Lungs/Pleura: There is no evidence of pleural effusion, focal consolidation, or pneumothorax. Pulmonary vascularity: Pulmonary vascular congestion. Heart/mediastinum: Cardiomediastinal silhouette is enlarged and stable. Musculoskeletal: No acute osseous pathology. IMPRESSION: Cardiomegaly and mild pulmonary vascular congestion. Correlate with BNP for congestive heart failure. [facility], , 07/26/2024 1:27 PM
[2024-07-26 13:31] LABS: ALT 15 U/L (4-34); AST 26 U/L (14-36); African American GFR (CKD) 41 (>60 ml/min/1.73 sqM); Albumin 3.5 g/dL (3.5-5.0); Alkaline Phosphatase 185 U/L (38-126); Anion Gap 6 mmol/L; Blood Urea Nitrogen 43 mg/dL (7-17); Calcium 7.8 mg/dL (8.4-10.2); Carbon Dioxide 30 mmol/L (22-30); Chloride 95 mmol/L (98-107); Glucose 421 mg/dL (74-99); Non-African American GFR(CKD) 36 (>60 ml/min/1.73 sqM); Potassium 5.3 mmol/L (3.5-5.1); Sodium 131 mmol/L (137-145); Total Bilirubin 0.7 mg/dL (0.2-1.3); Total Protein 6.7 g/dL (6.3-8.2)
--- NOTE | 2024-07-26 13:49 | ED ---
Altered Mental Status HPI - General Chief Complaint: Altered Mental Status Stated Complaint: MADYSON Time Seen by Provider: 07/26/24 12:10 Source: EMS Mode of arrival: EMS Limitations: altered mental status - History of Present Illness Initial Comments: 69-year-old female brought into the emergency department for decreased responsiveness. Patient was just discharged from the hospital yesterday. Patient hospitalized for respiratory failure, CHF with LifeVest. She was discharged home on oxygen 2 liters. The daughter was at the house last night and she did not feel like her mother was herself. She states that her father is not capable of taking care of the patient. EMS was called to the house this morning. They found the patient saturating in the 70s. The patient was wearing her 2 L. The tubing had been kinked underneath the patient's wheelchair. Patient was placed on a nonrebreather. She presents and is responsive to questioning is however appears overly sleepy. She does admit to some chest pain. She did take her medications this morning. The daughter does not feel that discharge home is appropriate for the patient due to her level of care needed that the cannot provide. - Related Data Home Medications Medication Instructions Recorded Confirmed Clopidogrel [Plavix] 75 mg PO DAILY 07/07/19 07/26/24 traZODone HCL [Desyrel] 200 mg PO HS 07/07/19 07/26/24 Insulin Glargine,Hum.rec.anlog 60 units SQ BID 06/09/21 07/26/24 [Lantus Solostar Pen] Levothyroxine Sodium [Synthroid] 300 mcg PO DAILY 08/30/21 07/26/24 Insulin Lispro [humaLOG Kwikpen] See Protocol SQ AC-TID 09/21/23 07/26/24 DULoxetine HCL [Cymbalta] 60 mg PO BID 07/15/24 07/26/24 oxyCODONE HCL [oxyCODONE HCL (IR)] 10 mg PO TID PRN 07/15/24 07/26/24 Albuterol Inhaler [Ventolin Hfa 2 puff INHALATION RT-Q6H PRN 07/26/24 07/26/24 Inhaler] Previous Rx's Medication Instructions Recorded ALPRAZolam [Xanax] 2 mg PO TID PRN #0 07/25/24 Aspirin 81 mg PO DAILY #30 tab 07/25/24 Atorvastatin [Lipitor] 80 mg PO HS #30 tab 07/25/24 Cyanocobalamin [Vitamin B-12] 1,000 mcg PO DAILY #30 tab 07/25/24 Furosemide [Lasix] 40 mg PO DAILY #30 tab 07/25/24 Losartan [Cozaar] 12.5 mg PO DAILY #15 tab 07/25/24 Metoprolol Tartrate [Lopressor] 50 mg PO BID #60 tab 07/25/24 Nitroglycerin Sl Tabs [Nitrostat] 0.4 mg SUBLINGUAL Q5M PRN #30 tab 07/25/24 Spironolactone [Aldactone] 25 mg PO DAILY #30 tab 07/25/24 Allergies Allergy/AdvReac Type Severity Reaction Status Date / Time Iodinated Contrast Media Allergy Rash/Hives Verified 07/26/24 15:05 Iodine and Iodide Containing Allergy Rash/Hives Verified 07/26/24 15:05 Produc liraglutide [From Saxenda] AdvReac Unknown Nausea & Verified 07/26/24 15:05 Vomiting NSAIDS (Non-Steroidal AdvReac Unknown Nausea & Verified 07/26/24 15:05 Anti-Inflamma Vomiting aspirin AdvReac Nausea & Verified 07/26/24 15:05 Vomiting with high doses azithromycin AdvReac Vomiting Verified 07/26/24 15:05 naproxen [From Naprosyn] AdvReac Nausea & Verified 07/26/24 15:05 Vomiting Review of Systems ROS Statement: Those systems with pertinent positive or pertinent negative responses have been documented in the HPI. ROS Other: All systems not noted in ROS Statement are negative. Past Medical History Past Medical History: Blood Disorder, Cancer, Diabetes Mellitus, Deep Vein Thrombosis (DVT), GERD/Reflux, Hyperlipidemia, Hypertension, Myocardial Infarction (VT), Neurologic Disorder, Osteoarthritis (OA), Pulmonary Embolus (PE), Thyroid Disorder Additional Past Medical History / Comment(s): Factor 5 leiden, DVT L leg, PE L lung, MIs x 5, palpitations, IDDM type II, neuropathy bilateral legs/feet, lymphedema L leg, charcot syndrome L foot, chronic low back pain, bilateral sciatica,hx bronchitis, anemia, hypothyroid, hx UTI, IBS, sinus problems, worsening tremors, "stomach shivering inside" plans to f/u with pcp. skin cancer removal. hx of pneumonia long ago, pelvic fx Last Myocardial Infarction Date:: January 2020 History of Any Multi-Drug Resistant Organisms: VRE Date of last positivie culture/infection: 08/24/23 MDRO Source:: Urine Past Surgical History: Appendectomy, Cholecystectomy, Heart Catheterization With Stent, Hernia Repair, Hysterectomy, Tonsillectomy Additional Past Surgical History / Comment(s): Bilateral salpingectomy, bilateral oophorectomy, abdominal hernia surgeries, L foot fracture, bilateral cataract removals, epidural injections with last on 01/20/20 lumbar, LAST PROCEDURE 04/19/21 Past Anesthesia/Blood Transfusion Reactions: No Reported Reaction Additional Past Anesthesia/Blood Transfusion Reaction / Comment(s): Pt has received blood in past without reaction. Date of Last Stent Placement:: January 2020 Past Psychological History: Anxiety, Depression, Panic Disorder Smoking Status: Never smoker Past Alcohol Use History: None Reported Past Drug Use History: None Reported - Past Family History Mother Family Medical History: COPD Additional Family Medical History / Comment(s): Mother was a smoker. Father Family Medical History: Cancer Additional Family Medical History / Comment(s): Lung cancer. Father was a smoker. Son(s) Family Medical History: Deep Vein Thrombosis (DVT) General Exam Limitations: altered mental status General appearance: lethargic Head exam: Present: atraumatic, normocephalic, normal inspection Eye exam: Present: normal appearance, PERRL, EOMI. Absent: scleral icterus, conjunctival injection, periorbital swelling ENT exam: Present: normal exam, mucous membranes moist Neck exam: Present: normal inspection. Absent: tenderness, meningismus, lymphadenopathy Respiratory exam: Present: decreased breath sounds Cardiovascular Exam: Present: regular rate, normal rhythm, normal heart sounds. Absent: systolic murmur, diastolic murmur, rubs, gallop, clicks GI/Abdominal exam: Present: soft, normal bowel sounds. Absent: distended, tenderness, guarding, rebound, rigid Extremities exam: Present: normal inspection, full ROM, normal capillary refill. Absent: tenderness, pedal edema, joint swelling, calf tenderness Psychiatric exam: Present: flat affect Skin exam: Present: warm, dry, intact, normal color. Absent: rash Course Vital Signs 07/26/24 07/26/24 07/26/24 12:02 14:00 14:47 Temperature 100.2 F H Pulse Rate 86 87 Respiratory 26 H 18 24 Rate Blood Pressure 101/52 114/55 122/65 O2 Sat by Pulse 86 L 92 L 100 Oximetry 07/26/24 07/26/24 07/26/24 15:00 15:30 16:16 Temperature Pulse Rate 83 77 78 Respiratory 13 27 H 20 Rate Blood Pressure 122/65 102/41 102/54 O2 Sat by Pulse 100 100 97 Oximetry 07/26/24 07/26/24 07/26/24 17:02 19:55 21:33 Temperature 98.6 F Pulse Rate 84 73 71 Respiratory 22 18 18 Rate Blood Pressure 117/56 104/50 100/61 O2 Sat by Pulse 96 95 97 Oximetry Medical Decision Making - Medical Decision Making Was pt. sent in by a medical professional or institution (, PA, PACKING ROOM WORKER, urgent care, hospital, or shelter...) When possible be specific @ -No Did you speak to anyone other than the patient for history (EMS, parent, family, police, friend...)? What history was obtained from this source @ -Spoke with EMS and daughter for history Did you review nursing and triage notes (agree or disagree)? Why? @ -I reviewed and agree with nursing and triage notes Were old charts reviewed (outside hosp., previous admission, EMS record, old EKG, old radiological studies, urgent care reports/EKG's, shelter records)? Report findings @ -Reviewed discharge summary from yesterday Differential Diagnosis (chest pain, altered mental status, abdominal pain women, abdominal pain men, vaginal bleeding, weakness, fever, dyspnea, syncope, headache, dizziness, GI bleed, back pain, seizure, CVA, palpatations, mental health, musculoskeletal)? @ -Differential Dyspnea: Coronary syndrome, arrhythmia, tamponade, asthma, COPD, pulmonary embolism, pneumonia, pneumothorax, pulmonary effusion, anaphylaxis, diabetic ketoacidosis, flailed chest, pulmonary contusion, diaphragmatic rupture, anemia, neuromuscular , this is not meant to be an all-inclusive list. EKG interpreted by me (3pts min.). @ -Yes and demonstrates sinus rhythm with a rate of 83. Parable 188. QRS 98. QTc of 387. No acute ST segment elevations. Mild ST depression in 1 and aVL X-rays interpreted by me (1pt min.). @ -yes and demonstrate signs of congestive heart failure CT interpreted by me (1pt min.). @ -None done U/S interpreted by me (1pt. min.). @ -None done What testing was considered but not performed or refused? (CT, X-rays, U/S, labs)? Why? @ -None What meds were considered but not given or refused? Why? @ -None Did you discuss the management of the patient with other professionals (professionals i.e. DrEvans, PA, PACKING ROOM WORKER, lab, RT, psych nurse, marriage and family social worker, topographical drafter, teacher, correctional officer captain, case managers)? Give summary @ -Spoke with Dr. Nation for admission Was smoking cessation discussed for >3mins.? @ -No Was critical care preformed (if so, how long)? @ -No Were there social determinants of health that impacted care today? How? (Homelessness, low income, unemployed, alcoholism, drug addiction, transportation, low edu. Level, literacy, decrease access to med. care, intermediate, rehab)? @ -No Was there de-escalation of care discussed even if they declined (Discuss DNR or withdrawal of care, Hospice)? DNR status @ -No What co-morbidities impacted this encounter? (DM, HTN, Smoking, COPD, CAD, Cancer, CVA, ARF, Chemo, Hep., AIDS, mental health diagnosis, sleep apnea, morbid obesity)? @ -Obesity, CHF Was patient admitted / discharged? Hospital course, mention meds given and route, prescriptions, significant lab abnormalities, going to OR and other pertinent info. @ -Upon arrival patient seen and evaluated in bed 23. Thorough history and physical exam was performed. Patient placed on continuous pulse ox and cardiac monitoring. Patient is on a nonrebreather. She does respond to questions appropriately. Laboratory studies are conducted. Chest x-ray was performed. We did order IV Lasix for the patient. I did recommend admission for case management evaluation and cardiology. Patient daughter were agreeable to this. Spoke with Dr. Nation for admission Undiagnosed new problem with uncertain prognosis? @ -No Drug Therapy requiring intensive monitoring for toxicity (Heparin, Nitro, Insulin, Cardizem)? @ -No Were any procedures done? @ -No Diagnosis/symptom? @ -Acute on chronic hypoxic respiratory failure, acute exacerbation of CHF, NSTEMI Acute, or Chronic, or Acute on Chronic? @ -Acute on chronic Uncomplicated (without systemic symptoms) or Complicated (systemic symptoms)? @ -complicated Side effects of treatment? @ -No Exacerbation, Progression, or Severe Exacerbation? @ -No Poses a threat to life or bodily function? How? (Chest pain, USA, VT, pneumonia, PE, COPD, DKA, ARF, appy, cholecystitis, CVA, Diverticulitis, Homicidal, Suicidal, threat to staff... and all critical care pts) @ -No - Lab Data Result diagrams: 07/27/24 06:58 07/27/24 06:58 Lab Results 07/26/24 07/26/24 07/26/24 Range/Units 12:58 12:58 12:58 WBC 9.2 (3.8-10.6) k/uL RBC 3.11 L (3.80-5.40) m/uL Hgb 9.8 L (11.4-16.0) gm/dL Hct 31.5 L (34.0-46.0) % MCV 101.3 H (80.0-100.0) fL MCH 31.5 (25.0-35.0) pg MCHC 31.1 (31.0-37.0) g/dL RDW 16.5 H (11.5-15.5) % Plt Count 179 (150-450) k/uL MPV 10.2 Neutrophils % 82 % Lymphocytes % 10 % Monocytes % 7 % Eosinophils % 0 % Basophils % 0 % Neutrophils # 7.5 (1.3-7.7) k/uL Lymphocytes # 0.9 L (1.0-4.8) k/uL Monocytes # 0.7 (0-1.0) k/uL Eosinophils # 0.0 (0-0.7) k/uL Basophils # 0.0 (0-0.2) k/uL Hypochromasia Moderate Anisocytosis Slight Macrocytosis Slight PT 11.3 (10.0-12.5) sec INR 1.0 (<1.2) APTT 21.1 L (22.0-30.0) sec VBG pH (7.31-7.41) VBG pCO2 (37-51) mmHg VBG HCO3 (24-28) mmol/L Sodium 131 L (137-145) mmol/L Potassium 5.3 H (3.5-5.1) mmol/L Chloride 95 L (98-107) mmol/L Carbon Dioxide 30 (22-30) mmol/L Anion Gap 6 mmol/L BUN 43 H (7-17) mg/dL Creatinine 1.48 H (0.52-1.04) mg/dL Est GFR (CKD-EPI)AfAm 41 (>60 ml/min/1.73 sqM) Est GFR (CKD-EPI)NonAf 36 (>60 ml/min/1.73 sqM) Glucose 421 H (74-99) mg/dL Calcium 7.8 L (8.4-10.2) mg/dL Total Bilirubin 0.7 (0.2-1.3) mg/dL AST 26 (14-36) U/L ALT 15 (4-34) U/L Alkaline Phosphatase 185 H (38-126) U/L Troponin I (0.000-0.034) ng/mL NT-Pro-B Natriuret Pep pg/mL Total Protein 6.7 (6.3-8.2) g/dL Albumin 3.5 (3.5-5.0) g/dL Influenza Type A (PCR) (Not Detectd) Influenza Type B (PCR) (Not Detectd) RSV (PCR) (Not Detectd) SARS-CoV-2 (PCR) (Not Detectd) 07/26/24 07/26/24 07/26/24 Range/Units 12:58 12:58 12:58 WBC (3.8-10.6) k/uL RBC (3.80-5.40) m/uL Hgb (11.4-16.0) gm/dL Hct (34.0-46.0) % MCV (80.0-100.0) fL MCH (25.0-35.0) pg MCHC (31.0-37.0) g/dL RDW (11.5-15.5) % Plt Count (150-450) k/uL MPV Neutrophils % % Lymphocytes % % Monocytes % % Eosinophils % % Basophils % % Neutrophils # (1.3-7.7) k/uL Lymphocytes # (1.0-4.8) k/uL Monocytes # (0-1.0) k/uL Eosinophils # (0-0.7) k/uL Basophils # (0-0.2) k/uL Hypochromasia Anisocytosis Macrocytosis PT (10.0-12.5) sec INR (<1.2) APTT (22.0-30.0) sec VBG pH 7.27 L (7.31-7.41) VBG pCO2 67 H (37-51) mmHg VBG HCO3 31 H (24-28) mmol/L Sodium (137-145) mmol/L Potassium (3.5-5.1) mmol/L Chloride (98-107) mmol/L Carbon Dioxide (22-30) mmol/L Anion Gap mmol/L BUN (7-17) mg/dL Creatinine (0.52-1.04) mg/dL Est GFR (CKD-EPI)AfAm (>60 ml/min/1.73 sqM) Est GFR (CKD-EPI)NonAf (>60 ml/min/1.73 sqM) Glucose (74-99) mg/dL Calcium (8.4-10.2) mg/dL Total Bilirubin (0.2-1.3) mg/dL AST (14-36) U/L ALT (4-34) U/L Alkaline Phosphatase (38-126) U/L Troponin I 0.270 H* (0.000-0.034) ng/mL NT-Pro-B Natriuret Pep pg/mL Total Protein (6.3-8.2) g/dL Albumin (3.5-5.0) g/dL Influenza Type A (PCR) Not Detected (Not Detectd) Influenza Type B (PCR) Not Detected (Not Detectd) RSV (PCR) Not Detected (Not Detectd) SARS-CoV-2 (PCR) Not Detected (Not Detectd) 07/26/24 Range/Units 12:58 WBC (3.8-10.6) k/uL RBC (3.80-5.40) m/uL Hgb (11.4-16.0) gm/dL Hct (34.0-46.0) % MCV (80.0-100.0) fL MCH (25.0-35.0) pg MCHC (31.0-37.0) g/dL RDW (11.5-15.5) % Plt Count (150-450) k/uL MPV Neutrophils % % Lymphocytes % % Monocytes % % Eosinophils % % Basophils % % Neutrophils # (1.3-7.7) k/uL Lymphocytes # (1.0-4.8) k/uL Monocytes # (0-1.0) k/uL Eosinophils # (0-0.7) k/uL Basophils # (0-0.2) k/uL Hypochromasia Anisocytosis Macrocytosis PT (10.0-12.5) sec INR (<1.2) APTT (22.0-30.0) sec VBG pH (7.31-7.41) VBG pCO2 (37-51) mmHg VBG HCO3 (24-28) mmol/L Sodium (137-145) mmol/L Potassium (3.5-5.1) mmol/L Chloride (98-107) mmol/L Carbon Dioxide (22-30) mmol/L Anion Gap mmol/L BUN (7-17) mg/dL Creatinine (0.52-1.04) mg/dL Est GFR (CKD-EPI)AfAm (>60 ml/min/1.73 sqM) Est GFR (CKD-EPI)NonAf (>60 ml/min/1.73 sqM) Glucose (74-99) mg/dL Calcium (8.4-10.2) mg/dL Total Bilirubin (0.2-1.3) mg/dL AST (14-36) U/L ALT (4-34) U/L Alkaline Phosphatase (38-126) U/L Troponin I (0.000-0.034) ng/mL NT-Pro-B Natriuret Pep 9620 pg/mL Total Protein (6.3-8.2) g/dL Albumin (3.5-5.0) g/dL Influenza Type A (PCR) (Not Detectd) Influenza Type B (PCR) (Not Detectd) RSV (PCR) (Not Detectd) SARS-CoV-2 (PCR) (Not Detectd) Disposition Clinical Impression: Acute encephalopathy, Chest pain, Hypoxemia, CHF (congestive heart failure), Non-ST elevation myocardial infarction (NSTEMI) Disposition: ADMITTED IP TO THIS [facility] Condition: Stable Is patient prescribed a controlled substance at d/c from ED?: No Time of Disposition: 14:36 Decision to Admit Reason: Admit from EC Decision Date: 07/26/24 Decision Time: 14:36
[2024-07-26 13:59] LABS: Anisocytosis Slight; Basophils % (A) 0 %; Eosinophils % (A) 0 %; HCT 31.5 % (34.0-46.0); HGB 9.8 gm/dL (11.4-16.0); Hypochromasia Moderate; Lymphocytes # (A) 0.9 k/uL (1.0-4.8); Lymphocytes % (A) 10 %; MCH 31.5 pg (25.0-35.0); MCHC 31.1 g/dL (31.0-37.0); MCV 101.3 fL (80.0-100.0); Macrocytosis Slight; Mean Platelet Volume 10.2; Monocytes # (A) 0.7 k/uL (0-1.0); Monocytes % (A) 7 %; Neutrophils # (A) 7.5 k/uL (1.3-7.7); Neutrophils % (A) 82 %; Platelet Count 179 k/uL (150-450); RBC 3.11 m/uL (3.80-5.40); RDW 16.5 % (11.5-15.5); WBC 9.2 k/uL (3.8-10.6)
[2024-07-26 14:10] LABS: Partial Thromboplastin Time 21.1 sec (22.0-30.0)
[2024-07-26] MEDS ORDERED: NALOXONE 0.4 MG/ML 1 ML VIAL IV PRN (14:36)
[2024-07-26 14:59] LABS: ABG Base Excess 4.1 mmol/L; ABG HCO3 31 mmol/L (21-25); ABG Oxygen Saturation 98.6 % (94-97); ABG PCO2 62 mmHg (35-45); ABG PH 7.32 (7.35-7.45); ABG PO2 142 mmHg (83-108); ABG TCO2 33 mmol/L (19-24); Allen Test Performed? Yes
[2024-07-26 15:52] LABS: Glucose,Whole Blood 465 mg/dL (70-110)
[2024-07-26] MEDS: FUROSEMIDE 10 MG/ML 4 ML VIAL IV STA (17:01)
[2024-07-26] MEDS ORDERED: DEXTROSE 50% SYRINGE 50 ML IVP PRN ×2 (17:24)
[2024-07-26] MEDS ORDERED: ALBUTEROL NEBULIZED 2.5 MG/3 ML INHALATION PRN (17:25)
[2024-07-26] MEDS: LEVOTHYROXINE 100 MCG TAB PO SCH (17:57)
[2024-07-26 17:59] LABS: Glucose,Whole Blood 492 mg/dL (70-110)
[2024-07-26] MEDS: INSULIN ASPART (NovoLOG) 100 UNIT/ML VIAL SQ SCH (18:13)
[2024-07-26 19:48] LABS: Glucose,Whole Blood 468 mg/dL (70-110)
[2024-07-26] MEDS: HEPARIN SODIUM 1,000 UN/ML (10ML VL) IVP STA (19:50)
[2024-07-26] MEDS: HEPARIN SOD,PORK IN 0.45% NACL 25,000 UNIT in 0.45% NACL 1 250ML.BAG IV SCH (19:51)
[2024-07-26 20:30] LABS: Appearance,Urine Clear (Clear); Bacteria,Urine Occasional /hpf; Bilirubin,Urine Negative (Negative); Blood,Urine Negative (Negative); Budding Yeast,Urine Many /hpf; Color,Urine Light Yellow; Glucose,Urine (UA) 3+ (Negative); Ketones,Urine Negative (Negative); Leukocyte Esterase,Urine Small (Negative); Mucus,Urine Rare /hpf; Nitrite,Urine Negative (Negative); Protein,Urine Negative (Negative); RBC,Urine <1 /hpf (0-5); Specific Gravity,Urine 1.014 (1.001-1.035); Squamous Epithelial Cell,Urine 1 /hpf (0-4); Urobilinogen,Urine <2.0 mg/dL (<2.0); WBC,Urine 8 /hpf (0-5)
[2024-07-26 21:05] LABS: Glucose,Whole Blood 449 mg/dL (70-110)
[2024-07-26] MEDS: DULoxetine HCL 60 MG CAPSULE.DR PO SCH (21:17)
[2024-07-26] MEDS: ATORVASTATIN 80 MG TAB PO SCH (21:17)
[2024-07-26] MEDS: METOPROLOL TARTRATE 50 MG TAB PO SCH (21:17)
[2024-07-26] MEDS: INSULIN DETEMIR (LEVEMIR) 100 UNIT/ML SYR SQ SCH (21:27)
[2024-07-26] MEDS: ALPRAZolam 1 MG TAB PO PRN (21:27)
[2024-07-26] MEDS: traZODone HCL 100 MG TAB PO SCH (23:29)
[2024-07-26] MEDS: ONDANSETRON 4 MG/2 ML VIAL IVP STA (23:34)
[2024-07-26] MEDS: polyethylene glycoL 3350 17 GM POWD.PACK PO PRN (23:34)
[2024-07-26] MEDS: polyethylene glycoL 3350 17 GM POWD.PACK PO SCH (23:49)
[2024-07-27] MEDS: HEPARIN SODIUM 1,000 UN/ML (10ML VL) IV PRN (02:39)
[2024-07-27 05:55] LABS: Glucose,Whole Blood 288 mg/dL (70-110)
[2024-07-27 07:31] LABS: Anisocytosis Slight; Basophils % (A) 0 %; Eosinophils # (A) 0.1 k/uL (0-0.7); Eosinophils % (A) 1 %; HCT 29.6 % (34.0-46.0); HGB 9.2 gm/dL (11.4-16.0); Hypochromasia Marked; Lymphocytes # (A) 1.1 k/uL (1.0-4.8); Lymphocytes % (A) 17 %; MCH 32.2 pg (25.0-35.0); MCV 103.6 fL (80.0-100.0); Macrocytosis Moderate; Mean Platelet Volume 9.4; Monocytes # (A) 0.4 k/uL (0-1.0); Monocytes % (A) 6 %; Neutrophils # (A) 4.8 k/uL (1.3-7.7); Neutrophils % (A) 73 %; Platelet Count 154 k/uL (150-450); RBC 2.86 m/uL (3.80-5.40); RDW 16.3 % (11.5-15.5); WBC 6.6 k/uL (3.8-10.6)
[2024-07-27 07:39] LABS: African American GFR (CKD) 40 (>60 ml/min/1.73 sqM); Anion Gap 7 mmol/L; Blood Urea Nitrogen 48 mg/dL (7-17); Calcium 7.7 mg/dL (8.4-10.2); Carbon Dioxide 29 mmol/L (22-30); Chloride 96 mmol/L (98-107); Glucose 268 mg/dL (74-99); Non-African American GFR(CKD) 34 (>60 ml/min/1.73 sqM); Potassium 4.6 mmol/L (3.5-5.1); Sodium 132 mmol/L (137-145)
[2024-07-27] MEDS: SPIRONOLACTONE 25 MG TAB PO SCH (07:55)
[2024-07-27] MEDS: CYANOCOBALAMIN 500 MCG TAB PO SCH (07:58)
[2024-07-27] MEDS: ASPIRIN 81 MG PO SCH (07:58)
[2024-07-27] MEDS: CLOPIDOGREL 75 MG TAB PO SCH (07:58)
[2024-07-27] MEDS ORDERED: DEXTROSE 50% SYRINGE 50 ML IVP PRN ×2 (08:56)
[2024-07-27] MEDS: LOSARTAN 25 MG TAB PO SCH (10:08)
[2024-07-27] MEDS: FUROSEMIDE 10 MG/ML 4 ML VIAL IV SCH (10:09)
[2024-07-27] MEDS: INSULIN ASPART (NovoLOG) 100 UNIT/ML VIAL SQ SCH (11:56)
--- NOTE | 2024-07-27 12:06 | P.CNPUL ---
History of Present Illness Consult date: 07/27/24 Reason for consult: dyspnea History of present illness: On 07/27/2024, the patient is being seen in consultation. The patient was seen in consult during her last admission and the patient was discharged home yesterday to be readmitted back to the hospital because of worsening shortness of breath diminished level of consciousness. The patient was discharged home with oxygen and she also had a decompensated heart failure post LA post angiopl asty and stenting and the patient was given a LifeVest. While at home, the patient decompensated. She was unable to take care of herself. Furthermore, she was noted to be desaturating with a pulse ox as low as in the 70s and apparently her oxygen tube was kinked under her wheelchair. She was immediately brought back to the hospital and she was initially placed on nonrebreather facemask and a blood gas was done that showed a pH of 7.32 with a pCO2 of 62 and pO2 of 142. Subsequently, she was taken off the nonrebreather and the patient is currently on 5 L of oxygen by nasal cannula with a pulse ox of 94%. Chest x- ray was repeated and the patient has cardiomegaly and pulm vessel congestion consistent with CHF. Her blood work showed a WBC count of 6.6 with a hemoglobin 9.2 and a platelet count of 154. BUN 48 with a creatinine of 1.5 and a sodium levels at 132. Glucose level was at 288. Calcium is at 7.7. UA showed 8 WBCs. Based on that, the patient was readmitted to the hospital. She also had elevation in troponins and the levels were 0.2 and 0.4 and 0 point respectively x 3. Home medications have been resumed. She is on aspirin and Plavix. She was started on IV Lasix 40 mg every 12 hours patient was started on IV heparin. Cardiology was consulted. She remains on Aldactone. She remains on metoprolol 50 mg p.o. twice a day. Review of Systems Constitutional: Reports daytime sleepiness, Reports fatigue, Reports lethargy, Reports poor appetite, Reports weakness, Reports weight gain Eyes: denies as per HPI, denies blurred vision, denies bulging eye, denies decreased vision, denies diplopia, denies discharge, denies dry eye, denies irritation, denies itching, denies pain, denies photophobia, denies loss of peripheral vision, denies loss of vision, denies tunnel vision/blind spots Ears: deny: decreased hearing, ear discharge, earache, tinnitus Ears, nose, mouth and throat: Reports as per HPI Breasts: absent: as per HPI, change in shape, gynecomastia, masses, nipple discharge, pain, skin changes, swelling Cardiovascular: Reports decreased exercise tolerance, Reports dyspnea on exertion, Reports edema, Reports orthopnea, Reports shortness of breath Respiratory: Reports dyspnea, Reports home oxygen Gastrointestinal: Reports as per HPI Genitourinary: Reports as per HPI Menstruation: Reports as per HPI Musculoskeletal: Reports as per HPI Musculoskeletal: bilateral: ankle swelling, absent: ankle pain, ankle stiffness Integumentary: Reports as per HPI Neurological: Reports gait dysfunction, Reports weakness Psychiatric: Reports as per HPI Endocrine: Reports as per HPI, Reports fatigue Hematologic/Lymphatic: Reports as per HPI Allergic/Immunologic: Reports as per HPI Past Medical History Past Medical History: Blood Disorder, Cancer, Diabetes Mellitus, Deep Vein Thrombosis (DVT), GERD/Reflux, Hyperlipidemia, Hypertension, Myocardial Infarction (LA), Neurologic Disorder, Osteoarthritis (OA), Pulmonary Embolus (PE), Thyroid Disorder Additional Past Medical History / Comment(s): Factor 5 leiden, DVT L leg, PE L lung, MIs x 5, palpitations, IDDM type II, neuropathy bilateral legs/feet, lymphedema L leg, charcot syndrome L foot, chronic low back pain, bilateral sciatica,hx bronchitis, anemia, hypothyroid, hx UTI, IBS, sinus problems, worsening tremors, "stomach shivering inside" plans to f/u with pcp. skin cancer removal. hx of pneumonia long ago, pelvic fx Last Myocardial Infarction Date:: January 2020 History of Any Multi-Drug Resistant Organisms: VRE Date of last positivie culture/infection: 08/24/23 MDRO Source:: Urine Past Surgical History: Appendectomy, Cholecystectomy, Heart Catheterization With Stent, Hernia Repair, Hysterectomy, Tonsillectomy Additional Past Surgical History / Comment(s): Bilateral salpingectomy, bilateral oophorectomy, abdominal hernia surgeries, L foot fracture, bilateral cataract removals, epidural injections with last on 01/20/20 lumbar, LAST PROCEDURE 04/19/21 Past Anesthesia/Blood Transfusion Reactions: No Reported Reaction Additional Past Anesthesia/Blood Transfusion Reaction / Comment(s): Pt has received blood in past without reaction. Date of Last Stent Placement:: January 2020 Past Psychological History: Anxiety, Depression, Panic Disorder Additional Psychological History / Comment(s): Pt resides with her spouse. severe panic attacks Smoking Status: Never smoker Past Alcohol Use History: None Reported Additional Past Alcohol Use History / Comment(s): STARTED SMOKING AT AGE 20quit smoking 2012, smoked 1ppd Past Drug Use History: None Reported - Past Family History Mother Family Medical History: COPD Additional Family Medical History / Comment(s): Mother was a smoker. Father Family Medical History: Cancer Additional Family Medical History / Comment(s): Lung cancer. Father was a smoker. Son(s) Family Medical History: Deep Vein Thrombosis (DVT) Medications and Allergies Home Medications Medication Instructions Recorded Confirmed Type Clopidogrel [Plavix] 75 mg PO DAILY 07/07/19 07/26/24 History traZODone HCL [Desyrel] 200 mg PO HS 07/07/19 07/26/24 History Insulin Glargine,Hum.rec.anlog 60 units SQ BID 06/09/21 07/26/24 History [Lantus Solostar Pen] Levothyroxine Sodium [Synthroid] 300 mcg PO DAILY 08/30/21 07/26/24 History Insulin Lispro [humaLOG Kwikpen] See Protocol SQ AC-TID 09/21/23 07/26/24 History DULoxetine HCL [Cymbalta] 60 mg PO BID 07/15/24 07/26/24 History oxyCODONE HCL [oxyCODONE HCL (IR)] 10 mg PO TID PRN 07/15/24 07/26/24 History ALPRAZolam [Xanax] 2 mg PO TID PRN #0 07/25/24 07/26/24 Rx Aspirin 81 mg PO DAILY #30 tab 07/25/24 07/26/24 Rx Atorvastatin [Lipitor] 80 mg PO HS #30 tab 07/25/24 07/26/24 Rx Cyanocobalamin [Vitamin B-12] 1,000 mcg PO DAILY #30 tab 07/25/24 07/26/24 Rx Furosemide [Lasix] 40 mg PO DAILY #30 tab 07/25/24 07/26/24 Rx Losartan [Cozaar] 12.5 mg PO DAILY #15 tab 07/25/24 07/26/24 Rx Metoprolol Tartrate [Lopressor] 50 mg PO BID #60 tab 07/25/24 07/26/24 Rx Nitroglycerin Sl Tabs [Nitrostat] 0.4 mg SUBLINGUAL Q5M PRN #30 tab 07/25/24 07/26/24 Rx Spironolactone [Aldactone] 25 mg PO DAILY #30 tab 07/25/24 07/26/24 Rx Albuterol Inhaler [Ventolin Hfa 2 puff INHALATION RT-Q6H PRN 07/26/24 07/26/24 History Inhaler] Allergies Allergy/AdvReac Type Severity Reaction Status Date / Time Iodinated Contrast Media Allergy Rash/Hives Verified 07/26/24 15:05 Iodine and Iodide Containing Allergy Rash/Hives Verified 07/26/24 15:05 Produc liraglutide [From Saxenda] AdvReac Unknown Nausea & Verified 07/26/24 15:05 Vomiting NSAIDS (Non-Steroidal AdvReac Unknown Nausea & Verified 07/26/24 15:05 Anti-Inflamma Vomiting aspirin AdvReac Nausea & Verified 07/26/24 15:05 Vomiting with high doses azithromycin AdvReac Vomiting Verified 07/26/24 15:05 naproxen [From Naprosyn] AdvReac Nausea & Verified 07/26/24 15:05 Vomiting Physical Exam Vitals: Vital Signs Temp Pulse Pulse Resp BP BP Pulse Ox 07/27/24 11:26 97.5 F L 70 20 98/61 94 L 07/27/24 08:04 97.8 F 67 20 95/57 95 07/27/24 05:26 69 17 88/54 95 07/27/24 04:23 67 18 83/51 94 L 07/26/24 23:48 65 17 90/52 96 07/26/24 22:27 97.6 F 65 18 102/73 98 07/26/24 21:33 71 18 100/61 97 07/26/24 19:55 98.6 F 73 18 104/50 95 07/26/24 17:02 84 22 117/56 96 07/26/24 16:16 78 20 102/54 97 07/26/24 15:30 77 27 H 102/41 100 07/26/24 15:00 83 13 122/65 100 07/26/24 14:47 87 24 122/65 100 12/21/24 14:00 18 114/55 92 L 07/26/24 12:02 100.2 F H 86 26 H 101/52 86 L Intake and Output 07/26/24 07/27/24 07/27/24 22:59 06:59 14:59 Intake Total 68 68.245 Output Total 150 150 Balance -150 -82 68.245 Intake: Intake, IV Titration 68 68.245 Amount Heparin Sod,Pork in 0.45% 68 68.245 NaCl 25,000 unit In 0.45 % NaCl 1 250ml.bag @ 9. 5853 UNITS/KG/HR 10 mls/ hr IV .Q24H [facility] Rx#: [id number] Output: Urine 150 150 Other: Voiding Method External Catheter External Catheter External Catheter Weight 104.326 kg 81 kg No acute distress, oriented 3. The patient is currently on 5 L nasal cannula. No respiratory distress. She is awake and alert. She is quite debilitated and weak. Awake and alert. Head exam was generally normal. There was no scleral icterus or corneal arcus. Mucous membranes were moist. Neck supple. Full range of motion. No adenopathy thyromegaly or neck vein distention. Cardiovascular examination reveals regular rhythm rate. S1-S2 normal. No S3 or S4. No discernible murmur noted. Lungs reveal bibasilar crackles. No wheezes. No rhonchi. Breath sounds equal bilaterally. Abdomen soft bowel sounds are heard. No masses or tenderness. Extremities are intact. Mild lower extremity edema. No cyanosis or clubbing. Skin is without rash or lesion. Neurologic examination is brief but nonfocal. Profound generalized weakness of all 4 extremities. Unable to ambulate. Results - Laboratory Findings CBC and BMP: 07/27/24 06:58 07/27/24 06:58 ABG ABG pH 7.32 (7.35-7.45) L 07/26/24 14:54 ABG pCO2 62 mmHg (35-45) H 07/26/24 14:54 ABG pO2 142 mmHg (83-108) H 07/26/24 14:54 ABG O2 Saturation 98.6 % (94-97) H 07/26/24 14:54 PT/INR, D-dimer PT 11.3 sec (10.0-12.5) 07/26/24 12:58 INR 1.0 (<1.2) 07/26/24 12:58 Abnormal lab findings: Abnormal Labs 07/26/24 07/26/24 07/26/24 12:58 12:58 12:58 RBC 3.11 L Hgb 9.8 L Hct 31.5 L MCV 101.3 H RDW 16.5 H Lymphocytes # 0.9 L APTT 21.1 L ABG pH ABG pCO2 ABG pO2 ABG HCO3 ABG Total CO2 ABG O2 Saturation VBG pH VBG pCO2 VBG HCO3 Hemoglobin Sodium 131 L Potassium 5.3 H Chloride 95 L BUN 43 H Creatinine 1.48 H Glucose 421 H POC Glucose (mg/dL) Calcium 7.8 L Alkaline Phosphatase 185 H Troponin I Urine Glucose (UA) Ur Leukocyte Esterase Urine WBC Urine Bacteria Urine Mucus Urine Yeast (Budding) 07/26/24 07/26/24 07/26/24 12:58 12:58 14:54 RBC Hgb Hct MCV RDW Lymphocytes # APTT ABG pH 7.32 L ABG pCO2 62 H ABG pO2 142 H ABG HCO3 31 H ABG Total CO2 33 H ABG O2 Saturation 98.6 H VBG pH 7.27 L VBG pCO2 67 H VBG HCO3 31 H Hemoglobin 9.8 L Sodium Potassium Chloride BUN Creatinine Glucose POC Glucose (mg/dL) Calcium Alkaline Phosphatase Troponin I 0.270 H* Urine Glucose (UA) Ur Leukocyte Esterase Urine WBC Urine Bacteria Urine Mucus Urine Yeast (Budding) 07/26/24 07/26/24 07/26/24 15:50 16:22 17:58 RBC Hgb Hct MCV RDW Lymphocytes # APTT ABG pH ABG pCO2 ABG pO2 ABG HCO3 ABG Total CO2 ABG O2 Saturation VBG pH VBG pCO2 VBG HCO3 Hemoglobin Sodium Potassium Chloride BUN Creatinine Glucose POC Glucose (mg/dL) 465 H 492 H Calcium Alkaline Phosphatase Troponin I 0.451 H* Urine Glucose (UA) Ur Leukocyte Esterase Urine WBC Urine Bacteria Urine Mucus Urine Yeast (Budding) 07/26/24 07/26/24 07/26/24 19:41 19:46 20:01 RBC Hgb Hct MCV RDW Lymphocytes # APTT ABG pH ABG pCO2 ABG pO2 ABG HCO3 ABG Total CO2 ABG O2 Saturation VBG pH VBG pCO2 VBG HCO3 Hemoglobin Sodium Potassium Chloride BUN Creatinine Glucose POC Glucose (mg/dL) 468 H Calcium Alkaline Phosphatase Troponin I 0.462 H* Urine Glucose (UA) 3+ H Ur Leukocyte Esterase Small H Urine WBC 8 H Urine Bacteria Occasional H Urine Mucus Rare H Urine Yeast (Budding) Many H 07/26/24 07/27/24 07/27/24 21:04 05:52 06:58 RBC 2.86 L Hgb 9.2 L Hct 29.6 L MCV 103.6 H RDW 16.3 H Lymphocytes # APTT ABG pH ABG pCO2 ABG pO2 ABG HCO3 ABG Total CO2 ABG O2 Saturation VBG pH VBG pCO2 VBG HCO3 Hemoglobin Sodium Potassium Chloride BUN Creatinine Glucose POC Glucose (mg/dL) 449 H 288 H Calcium Alkaline Phosphatase Troponin I Urine Glucose (UA) Ur Leukocyte Esterase Urine WBC Urine Bacteria Urine Mucus Urine Yeast (Budding) 07/27/24 06:58 RBC Hgb Hct MCV RDW Lymphocytes # APTT ABG pH ABG pCO2 ABG pO2 ABG HCO3 ABG Total CO2 ABG O2 Saturation VBG pH VBG pCO2 VBG HCO3 Hemoglobin Sodium 132 L Potassium Chloride 96 L BUN 48 H Creatinine 1.53 H Glucose 268 H POC Glucose (mg/dL) Calcium 7.7 L Alkaline Phosphatase Troponin I Urine Glucose (UA) Ur Leukocyte Esterase Urine WBC Urine Bacteria Urine Mucus Urine Yeast (Budding) - Diagnostic Findings Chest x-ray: image reviewed Assessment and Plan Plan: Acute hypoxemic respiratory failure, multifactorial. The patient continues to be in CHF. Chest x-ray clearly shows evidence of cardiomegaly and pulm vessel congestion/edema. At the same time, the patient had a kink cannula oxygen tubing which made her more hypoxic. She was brought into the hospital and she repeat blood gas showed a acute hypoxic/hypercapnic respiratory failure. Currently she is on 5 L of oxygen by nasal cannula. As stated earlier, she has coronary artery disease and severely impaired left ventricular systolic function with an ejection fraction 20 to 25%. Acute on chronic shortness of breath secondary to above Systolic heart failure with impaired ejection fraction of 20 to 25% Acute kidney injury, likely secondary to cardiorenal factors, creatinine remained stable relative to her discharge values Small left-sided pleural effusion, likely secondary to above Non-ST elevation myocardial infarction, S/P PCI and stenting of her LAD, on 07/17/2024, currently on a combination of aspirin and Plavix. The patient is also on metoprolol and high-dose statins. Coronary artery disease with previous stent placement. The patient also has previous history of myocardial infarction.. The patient has an abnormal troponin and the patient is currently on IV heparin. Hypertension. Maintained on losartan for blood pressure control. Hyperlipidemia. 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 Diabetes mellitus, type II.The patient is on Levemir insulin 60 units twice a day Former smoker Plan: .Continue oxygen at 2 L/min nasal cannula Restart IV Lasix Continue Aldactone Monitor urine output Continue aspirin and Plavix Continue metoprolol 50 mg p.o. twice a day Losartan for blood pressure control 12.5 mg p.o. daily Lipitor 80 mg p.o. daily Levemir insulin 60 units twice daily and sliding scale coverage monitor renal function c Patient has a LifeVest that was arranged to her at time of discharge The patient is quite debilitated and essentially nonambulatory, is the main caregiver Incentive spirometer Will continue to follow
--- NOTE | 2024-07-27 12:51 | P.HPIM ---
History of Present Illness H&P Date: 07/27/24 History of present illness; patient is 69-year-old lady with past medical history significant for coronary artery disease with previous stenting, hypertension, hyperlipidemia, diabetes, and obesity who was brought to the ER for altered mental status. Patient only recently discharged on 07/25 after being treated for CHF and underwent a cardiac cath with PCI to LAD. Patient was brought back to the hospital as daughter found patient to be less responsive. Patient daughter stated that when she went to check on her mom she was very lethargic. Patient was discharged on liters of oxygen but was not using her oxygen properly as the tubing was kinked on her wheelchair. is unable to provide take care of her. No complaint of chest pain. Denies any fever or chills. EMS was called and found her to be saturating in the 70s. Because of patient being lethargic and less arousable, patient was brought to the ER Initial lab work done in the ER showed showed WBC 8.2, hemoglobin 9.8, platelet count 179, sodium 131, potassium 5.3, BUN 43, creatinine 1.48, glucose 421, troponin 0.270 proBNP 9620 influenza A not detected Influenza B not detected RSV not detected COVID-19 not detected EKG done in the ER showed heart rate of 83, no ST segment elevation or depression seen, no T-wave inversions seen. Chest x-ray done in the ER showed cardiomegaly and mild pulmonary vascular congestion. Patient admitted to internal medicine service REVIEW OF SYSTEMS: Review of system cannot be obtained patient is lethargic PHYSICAL EXAMINATION: GENERAL: The patient is lethargic, not in any acute distress. Chronically ill looking HEENT: Pupils are round and equally reacting to light. EOMI. No scleral icterus. No conjunctival pallor. Normocephalic, atraumatic. No pharyngeal erythema. No thyromegaly. CARDIOVASCULAR: S1 and S2 present. No murmurs, rubs, or gallops. PULMONARY: Diminished breath sound bilaterally, crackles audible bilaterally ABDOMEN: Soft, nontender, nondistended, normoactive bowel sounds. No palpable organomegaly. MUSCULOSKELETAL: 1+ pitting edema lower extremities EXTREMITIES: No cyanosis, clubbing, NEUROLOGICAL: Gross neurological examination did not reveal any focal deficits. SKIN: No rashes. Assessment and plan Acute on chronic hypoxic respiratory failure Elevated troponin, recent cardiac cath and PCI to LAD on 07/17 acute on chronic congestive heart failure systolic dysfunction ejection fraction 20 to 25% Coronary artery disease with previous stenting of the LAD Hyponatremia Hyperkalemia Hyperglycemia Known moderate disease of the RCA Hypertension Hyperlipidemia Diabetes with hyperglycemia Obesity Medication noncompliance Monitor vital signs Monitor CBC Monitor CMP Continue telemetry monitoring Trend troponins Serial ABGs Ordered oxygen supplementation Ordered aggressive bronchopulmonary hygiene Ordered pharmacy dose heparin Patient recent 2D echo done, no need to repeat it at this time. Strict I's and O's, daily weights, ordered IV Lasix 40 mg every 12 Ordered blood glucose monitoring, ordered home regimen of Lantus Resume home med Consult cardiology Consult pulmonary Labs and medication were reviewed.. Continue same treatment. Continue with symptomatic treatment. Resume home medication. Monitor labs and vitals. DVT and GI prophylaxis. Further recommendations as per clinical course of the patient Dictation was produced using [employer] dictation software. please excuse any grammatical, word or spelling errors. Past Medical History Past Medical History: Blood Disorder, Cancer, Diabetes Mellitus, Deep Vein Thrombosis (DVT), GERD/Reflux, Hyperlipidemia, Hypertension, Myocardial Infarction (AL), Neurologic Disorder, Osteoarthritis (OA), Pulmonary Embolus (PE), Thyroid Disorder Additional Past Medical History / Comment(s): Factor 5 leiden, DVT L leg, PE L lung, MIs x 5, palpitations, IDDM type II, neuropathy bilateral legs/feet, lymphedema L leg, charcot syndrome L foot, chronic low back pain, bilateral sciatica,hx bronchitis, anemia, hypothyroid, hx UTI, IBS, sinus problems, worsening tremors, "stomach shivering inside" plans to f/u with pcp. skin canc er removal. hx of pneumonia long ago, pelvic fx Last Myocardial Infarction Date:: January 2020 History of Any Multi-Drug Resistant Organisms: VRE Date of last positivie culture/infection: 08/24/23 MDRO Source:: Urine Past Surgical History: Appendectomy, Cholecystectomy, Heart Catheterization With Stent, Hernia Repair, Hysterectomy, Tonsillectomy Additional Past Surgical History / Comment(s): Bilateral salpingectomy, bilateral oophorectomy, abdominal hernia surgeries, L foot fracture, bilateral cataract removals, epidural injections with last on 01/20/20 lumbar, LAST PROCEDURE 04/19/21 Past Anesthesia/Blood Transfusion Reactions: No Reported Reaction Additional Past Anesthesia/Blood Transfusion Reaction / Comment(s): Pt has received blood in past without reaction. Date of Last Stent Placement:: January 2020 Past Psychological History: Anxiety, Depression, Panic Disorder Additional Psychological History / Comment(s): Pt resides with her spouse. severe panic attacks Smoking Status: Never smoker Past Alcohol Use History: None Reported Additional Past Alcohol Use History / Comment(s): STARTED SMOKING AT AGE 20quit smoking 2012, smoked 1ppd Past Drug Use History: None Reported - Past Family History Mother Family Medical History: COPD Additional Family Medical History / Comment(s): Mother was a smoker. Father Family Medical History: Cancer Additional Family Medical History / Comment(s): Lung cancer. Father was a smoker. Son(s) Family Medical History: Deep Vein Thrombosis (DVT) Medications and Allergies Home Medications Medication Instructions Recorded Confirmed Type Clopidogrel [Plavix] 75 mg PO DAILY 07/07/19 07/26/24 History traZODone HCL [Desyrel] 200 mg PO HS 07/07/19 07/26/24 History Insulin Glargine,Hum.rec.anlog 60 units SQ BID 06/09/21 07/26/24 History [Lantus Solostar Pen] Levothyroxine Sodium [Synthroid] 300 mcg PO DAILY 08/30/21 07/26/24 History Insulin Lispro [humaLOG Kwikpen] See Protocol SQ AC-TID 09/21/23 07/26/24 History DULoxetine HCL [Cymbalta] 60 mg PO BID 07/15/24 07/26/24 History oxyCODONE HCL [oxyCODONE HCL (IR)] 10 mg PO TID PRN 07/15/24 07/26/24 History ALPRAZolam [Xanax] 2 mg PO TID PRN #0 07/25/24 07/26/24 Rx Aspirin 81 mg PO DAILY #30 tab 07/25/24 07/26/24 Rx Atorvastatin [Lipitor] 80 mg PO HS #30 tab 07/25/24 07/26/24 Rx Cyanocobalamin [Vitamin B-12] 1,000 mcg PO DAILY #30 tab 07/25/24 07/26/24 Rx Furosemide [Lasix] 40 mg PO DAILY #30 tab 07/25/24 07/26/24 Rx Losartan [Cozaar] 12.5 mg PO DAILY #15 tab 07/25/24 07/26/24 Rx Metoprolol Tartrate [Lopressor] 50 mg PO BID #60 tab 07/25/24 07/26/24 Rx Nitroglycerin Sl Tabs [Nitrostat] 0.4 mg SUBLINGUAL Q5M PRN #30 tab 07/25/24 07/26/24 Rx Spironolactone [Aldactone] 25 mg PO DAILY #30 tab 07/25/24 07/26/24 Rx Albuterol Inhaler [Ventolin Hfa 2 puff INHALATION RT-Q6H PRN 07/26/24 07/26/24 History Inhaler] Allergies Allergy/AdvReac Type Severity Reaction Status Date / Time Iodinated Contrast Media Allergy Rash/Hives Verified 07/26/24 15:05 Iodine and Iodide Containing Allergy Rash/Hives Verified 07/26/24 15:05 Produc liraglutide [From Saxenda] AdvReac Unknown Nausea & Verified 07/26/24 15:05 Vomiting NSAIDS (Non-Steroidal AdvReac Unknown Nausea & Verified 07/26/24 15:05 Anti-Inflamma Vomiting aspirin AdvReac Nausea & Verified 07/26/24 15:05 Vomiting with high doses azithromycin AdvReac Vomiting Verified 07/26/24 15:05 naproxen [From Naprosyn] AdvReac Nausea & Verified 07/26/24 15:05 Vomiting Physical Exam Vitals: Vital Signs Temp Pulse Pulse Resp BP BP Pulse Ox 07/27/24 08:04 97.8 F 67 20 95/57 95 07/27/24 05:26 69 17 88/54 95 07/27/24 04:23 67 18 83/51 94 L 07/26/24 23:48 65 17 90/52 96 07/26/24 22:27 97.6 F 65 18 102/73 98 07/26/24 21:33 71 18 100/61 97 07/26/24 19:55 98.6 F 73 18 104/50 95 07/26/24 17:02 84 22 117/56 96 07/26/24 16:16 78 20 102/54 97 07/26/24 15:30 77 27 H 102/41 100 07/26/24 15:00 83 13 122/65 100 07/26/24 14:47 87 24 122/65 100 07/26/24 14:00 18 114/55 92 L 07/26/24 12:02 100.2 F H 86 26 H 101/52 86 L Intake and Output 07/26/24 07/27/24 07/27/24 22:59 06:59 14:59 Intake Total 68 68.245 Output Total 150 150 Balance -150 -82 68.245 Intake: Intake, IV Titration 68 68.245 Amount Heparin Sod,Pork in 0.45% 68 68.245 NaCl 25,000 unit In 0.45 % NaCl 1 250ml.bag @ 9. 5853 UNITS/KG/HR 10 mls/ hr IV .Q24H [facility] Rx#: [id number] Output: Urine 150 150 Other: Voiding Method External Catheter External Catheter External Catheter Weight 104.326 kg 81 kg Results CBC & Chem 7: 07/27/24 06:58 07/27/24 06:58 Labs: Abnormal Lab Results - Last 24 Hours (Table) 07/26/24 07/26/24 07/26/24 Range/Units 12:58 12:58 12:58 RBC 3.11 L (3.80-5.40) m/uL Hgb 9.8 L (11.4-16.0) gm/dL Hct 31.5 L (34.0-46.0) % MCV 101.3 H (80.0-100.0) fL RDW 16.5 H (11.5-15.5) % Lymphocytes # 0.9 L (1.0-4.8) k/uL APTT 21.1 L (22.0-30.0) sec ABG pH (7.35-7.45) ABG pCO2 (35-45) mmHg ABG pO2 (83-108) mmHg ABG HCO3 (21-25) mmol/L ABG Total CO2 (19-24) mmol/L ABG O2 Saturation (94-97) % VBG pH (7.31-7.41) VBG pCO2 (37-51) mmHg VBG HCO3 (24-28) mmol/L Hemoglobin (11.4-16.0) gm/dL Sodium 131 L (137-145) mmol/L Potassium 5.3 H (3.5-5.1) mmol/L Chloride 95 L (98-107) mmol/L BUN 43 H (7-17) mg/dL Creatinine 1.48 H (0.52-1.04) mg/dL Glucose 421 H (74-99) mg/dL POC Glucose (mg/dL) (70-110) mg/dL Calcium 7.8 L (8.4-10.2) mg/dL Alkaline Phosphatase 185 H (38-126) U/L Troponin I (0.000-0.034) ng/mL Urine Glucose (UA) (Negative) Ur Leukocyte Esterase (Negative) Urine WBC (0-5) /hpf Urine Bacteria (None) /hpf Urine Mucus (None) /hpf Urine Yeast (Budding) (None) /hpf 07/26/24 07/26/24 07/26/24 Range/Units 12:58 12:58 14:54 RBC (3.80-5.40) m/uL Hgb (11.4-16.0) gm/dL Hct (34.0-46.0) % MCV (80.0-100.0) fL RDW (11.5-15.5) % Lymphocytes # (1.0-4.8) k/uL APTT (22.0-30.0) sec ABG pH 7.32 L (7.35-7.45) ABG pCO2 62 H (35-45) mmHg ABG pO2 142 H (83-108) mmHg ABG HCO3 31 H (21-25) mmol/L ABG Total CO2 33 H (19-24) mmol/L ABG O2 Saturation 98.6 H (94-97) % VBG pH 7.27 L (7.31-7.41) VBG pCO2 67 H (37-51) mmHg VBG HCO3 31 H (24-28) mmol/L Hemoglobin 9.8 L (11.4-16.0) gm/dL Sodium (137-145) mmol/L Potassium (3.5-5.1) mmol/L Chloride (98-107) mmol/L BUN (7-17) mg/dL Creatinine (0.52-1.04) mg/dL Glucose (74-99) mg/dL POC Glucose (mg/dL) (70-110) mg/dL Calcium (8.4-10.2) mg/dL Alkaline Phosphatase (38-126) U/L Troponin I 0.270 H* (0.000-0.034) ng/mL Urine Glucose (UA) (Negative) Ur Leukocyte Esterase (Negative) Urine WBC (0-5) /hpf Urine Bacteria (None) /hpf Urine Mucus (None) /hpf Urine Yeast (Budding) (None) /hpf 07/26/24 07/26/24 07/26/24 Range/Units 15:50 16:22 17:58 RBC (3.80-5.40) m/uL Hgb (11.4-16.0) gm/dL Hct (34.0-46.0) % MCV (80.0-100.0) fL RDW (11.5-15.5) % Lymphocytes # (1.0-4.8) k/uL APTT (22.0-30.0) sec ABG pH (7.35-7.45) ABG pCO2 (35-45) mmHg ABG pO2 (83-108) mmHg ABG HCO3 (21-25) mmol/L ABG Total CO2 (19-24) mmol/L ABG O2 Saturation (94-97) % VBG pH (7.31-7.41) VBG pCO2 (37-51) mmHg VBG HCO3 (24-28) mmol/L Hemoglobin (11.4-16.0) gm/dL Sodium (137-145) mmol/L Potassium (3.5-5.1) mmol/L Chloride (98-107) mmol/L BUN (7-17) mg/dL Creatinine (0.52-1.04) mg/dL Glucose (74-99) mg/dL POC Glucose (mg/dL) 465 H 492 H (70-110) mg/dL Calcium (8.4-10.2) mg/dL Alkaline Phosphatase (38-126) U/L Troponin I 0.451 H* (0.000-0.034) ng/mL Urine Glucose (UA) (Negative) Ur Leukocyte Esterase (Negative) Urine WBC (0-5) /hpf Urine Bacteria (None) /hpf Urine Mucus (None) /hpf Urine Yeast (Budding) (None) /hpf 07/26/24 07/26/24 07/26/24 Range/Units 19:41 19:46 20:01 RBC (3.80-5.40) m/uL Hgb (11.4-16.0) gm/dL Hct (34.0-46.0) % MCV (80.0-100.0) fL RDW (11.5-15.5) % Lymphocytes # (1.0-4.8) k/uL APTT (22.0-30.0) sec ABG pH (7.35-7.45) ABG pCO2 (35-45) mmHg ABG pO2 (83-108) mmHg ABG HCO3 (21-25) mmol/L ABG Total CO2 (19-24) mmol/L ABG O2 Saturation (94-97) % VBG pH (7.31-7.41) VBG pCO2 (37-51) mmHg VBG HCO3 (24-28) mmol/L Hemoglobin (11.4-16.0) gm/dL Sodium (137-145) mmol/L Potassium (3.5-5.1) mmol/L Chloride (98-107) mmol/L BUN (7-17) mg/dL Creatinine (0.52-1.04) mg/dL Glucose (74-99) mg/dL POC Glucose (mg/dL) 468 H (70-110) mg/dL Calcium (8.4-10.2) mg/dL Alkaline Phosphatase (38-126) U/L Troponin I 0.462 H* (0.000-0.034) ng/mL Urine Glucose (UA) 3+ H (Negative) Ur Leukocyte Esterase Small H (Negative) Urine WBC 8 H (0-5) /hpf Urine Bacteria Occasional H (None) /hpf Urine Mucus Rare H (None) /hpf Urine Yeast (Budding) Many H (None) /hpf 07/26/24 07/27/24 07/27/24 Range/Units 21:04 05:52 06:58 RBC 2.86 L (3.80-5.40) m/uL Hgb 9.2 L (11.4-16.0) gm/dL Hct 29.6 L (34.0-46.0) % MCV 103.6 H (80.0-100.0) fL RDW 16.3 H (11.5-15.5) % Lymphocytes # (1.0-4.8) k/uL APTT (22.0-30.0) sec ABG pH (7.35-7.45) ABG pCO2 (35-45) mmHg ABG pO2 (83-108) mmHg ABG HCO3 (21-25) mmol/L ABG Total CO2 (19-24) mmol/L ABG O2 Saturation (94-97) % VBG pH (7.31-7.41) VBG pCO2 (37-51) mmHg VBG HCO3 (24-28) mmol/L Hemoglobin (11.4-16.0) gm/dL Sodium (137-145) mmol/L Potassium (3.5-5.1) mmol/L Chloride (98-107) mmol/L BUN (7-17) mg/dL Creatinine (0.52-1.04) mg/dL Glucose (74-99) mg/dL POC Glucose (mg/dL) 449 H 288 H (70-110) mg/dL Calcium (8.4-10.2) mg/dL Alkaline Phosphatase (38-126) U/L Troponin I (0.000-0.034) ng/mL Urine Glucose (UA) (Negative) Ur Leukocyte Esterase (Negative) Urine WBC (0-5) /hpf Urine Bacteria (None) /hpf Urine Mucus (None) /hpf Urine Yeast (Budding) (None) /hpf 07/27/24 Range/Units 06:58 RBC (3.80-5.40) m/uL Hgb (11.4-16.0) gm/dL Hct (34.0-46.0) % MCV (80.0-100.0) fL RDW (11.5-15.5) % Lymphocytes # (1.0-4.8) k/uL APTT (22.0-30.0) sec ABG pH (7.35-7.45) ABG pCO2 (35-45) mmHg ABG pO2 (83-108) mmHg ABG HCO3 (21-25) mmol/L ABG Total CO2 (19-24) mmol/L ABG O2 Saturation (94-97) % VBG pH (7.31-7.41) VBG pCO2 (37-51) mmHg VBG HCO3 (24-28) mmol/L Hemoglobin (11.4-16.0) gm/dL Sodium 132 L (137-145) mmol/L Potassium (3.5-5.1) mmol/L Chloride 96 L (98-107) mmol/L BUN 48 H (7-17) mg/dL Creatinine 1.53 H (0.52-1.04) mg/dL Glucose 268 H (74-99) mg/dL POC Glucose (mg/dL) (70-110) mg/dL Calcium 7.7 L (8.4-10.2) mg/dL Alkaline Phosphatase (38-126) U/L Troponin I (0.000-0.034) ng/mL Urine Glucose (UA) (Negative) Ur Leukocyte Esterase (Negative) Urine WBC (0-5) /hpf Urine Bacteria (None) /hpf Urine Mucus (None) /hpf Urine Yeast (Budding) (None) /hpf Thrombosis Risk Factor Assmnt - Choose All That Apply Any of the Below Risk Factors Present?: Yes Each Factor Represents 1 point: Swollen legs (current) Other Risk Factors: Yes Each Risk Factor Represents 2 Points: Age 61-74 years Each Risk Factor Represents 3 Points: Positive Factor V Leiden, History of DVT/PE Other congenital or acquired thrombophilia - If yes, enter type in comment: No Thrombosis Risk Factor Assessment Total Risk Factor Score: 9 Thrombosis Risk Factor Assessment Level: High Risk
[2024-07-27] MEDS: DAPAGLIFLOZIN PROPANEDIOL 10 MG TABLET PO SCH (13:23)
--- NOTE | 2024-07-27 14:03 | P.CRDCN ---
History of Present Illness Consult date: 07/27/24 History of present illness: HISTORY OF PRESENTING ILLNESS 69-year-old with morbid obesity, recent PCI to mid LAD which was a in-stent stenosis disease, hypertension, dyslipidemia, type 2 diabetes which is poorly controlled, concerns of noncompliance. She presented to the hospital because of being less responsive, mildly confused and lethargic along with increased loli rtness of breath. She was noticed to be hypoxic with oxygen saturation in 70s on admission. Initial blood work showed hemoglobin 9.8, macrocytic anemia, potassium 5.3, sodium 31, BUN 43, creatinine 1.48, glucose 421, troponin 0.27, 0.4, 0.4, NT- proBNP 9600 COVID flu and RSV were negative. CXR shows pulmonary congestion EKG shows sinus rhythm heart rate 83, nonspecific ST changes unchanged from prior exam. REVIEW OF SYSTEMS Cannot be obtained as patient is lethargic and not answering to all the questions. PHYSICAL EXAMINATION Vital signs reviewed. Head: Normocephalic. Eyes: Sclerae nonicteric. Neck: Brisk carotid upstroke, mildly elevated JVP Lungs: Mild crackles audible, poor inspiratory effort but diminished breath sounds in bilateral bases Heart: Regular rate and rhythm, S1-S2 audible, no significant murmurs appreciated Abdomen: Soft nontender, positive bowel sounds. Extremities: 1+ pitting edema in bilateral lower extremity Neuro: Awake but not oriented. Detailed neuro exam was not performed. LifeVest in place ASSESSMENT NSTEMI, likely type II Acute hypoxic respiratory failure Acute HFrEF exacerbation Metabolic encephalopathy Ischemic cardiomyopathy with a EF of 20 to 25% CAD status post PCI to LAD 07/17/2024, residual 80% disease in LCx, difficult to intervene because of acute angle origin. 40% mid RCA disease Type 2 diabetes with hyperglycemia Morbid obesity Medication noncompliance PLAN Continue aspirin, Plavix, Lipitor 80 mg Continue Farxiga 10 mg daily, Lasix 40 m IV twice daily, losartan 12.5 mg daily, Aldactone 25 mg daily Metoprolol 50 mg twice daily Blood pressure is low normal. Continue to monitor. Maintain LifeVest Monitor renal function, urine output and electrolytes Alfonso Knight MD, FACC, RPVI Thank you for allowing [facility] to participate in this patient's care. Feel free to reach out in case of any followup questions. Past Medical History Past Medical History: Blood Disorder, Cancer, Diabetes Mellitus, Deep Vein Thrombosis (DVT), GERD/Reflux, Hyperlipidemia, Hypertension, Myocardial Infarction (IA), Neurologic Disorder, Osteoarthritis (OA), Pulmonary Embolus (PE), Thyroid Disorder Additional Past Medical History / Comment(s): Factor 5 leiden, DVT L leg, PE L lung, MIs x 5, palpitations, IDDM type II, neuropathy bilateral legs/feet, lymphedema L leg, charcot syndrome L foot, chronic low back pain, bilateral sciatica,hx bronchitis, anemia, hypothyroid, hx UTI, IBS, sinus problems, worsening tremors, "stomach shivering inside" plans to f/u with pcp. skin cancer removal. hx of pneumonia long ago, pelvic fx Last Myocardial Infarction Date:: January 2020 History of Any Multi-Drug Resistant Organisms: VRE Date of last positivie culture/infection: 08/24/23 MDRO Source:: Urine Past Surgical History: Appendectomy, Cholecystectomy, Heart Catheterization With Stent, Hernia Repair, Hysterectomy, Tonsillectomy Additional Past Surgical History / Comment(s): Bilateral salpingectomy, b ilateral oophorectomy, abdominal hernia surgeries, L foot fracture, bilateral cataract removals, epidural injections with last on 01/20/20 lumbar, LAST PROCEDURE 04/19/21 Past Anesthesia/Blood Transfusion Reactions: No Reported Reaction Additional Past Anesthesia/Blood Transfusion Reaction / Comment(s): Pt has received blood in past without reaction. Date of Last Stent Placement:: January 2020 Past Psychological History: Anxiety, Depression, Panic Disorder Additional Psychological History / Comment(s): Pt resides with her spouse. severe panic attacks Smoking Status: Never smoker Past Alcohol Use History: None Reported Additional Past Alcohol Use History / Comment(s): STARTED SMOKING AT AGE 20quit smoking 2012, smoked 1ppd Past Drug Use History: None Reported - Past Family History Mother Family Medical History: COPD Additional Family Medical History / Comment(s): Mother was a smoker. Father Family Medical History: Cancer Additional Family Medical History / Comment(s): Lung cancer. Father was a smoker. Son(s) Family Medical History: Deep Vein Thrombosis (DVT) Medications and Allergies Home Medications Medication Instructions Recorded Confirmed Type Clopidogrel [Plavix] 75 mg PO DAILY 07/07/19 07/26/24 History traZODone HCL [Desyrel] 200 mg PO HS 07/07/19 07/26/24 History Insulin Glargine,Hum.rec.anlog 60 units SQ BID 06/09/21 07/26/24 History [Lantus Solostar Pen] Levothyroxine Sodium [Synthroid] 300 mcg PO DAILY 08/30/21 07/26/24 History Insulin Lispro [humaLOG Kwikpen] See Protocol SQ AC-TID 09/21/23 07/26/24 History DULoxetine HCL [Cymbalta] 60 mg PO BID 07/15/24 07/26/24 History oxyCODONE HCL [oxyCODONE HCL (IR)] 10 mg PO TID PRN 07/15/24 07/26/24 History ALPRAZolam [Xanax] 2 mg PO TID PRN #0 07/25/24 07/26/24 Rx Aspirin 81 mg PO DAILY #30 tab 07/25/24 07/26/24 Rx Atorvastatin [Lipitor] 80 mg PO HS #30 tab 07/25/24 07/26/24 Rx Cyanocobalamin [Vitamin B-12] 1,000 mcg PO DAILY #30 tab 07/25/24 07/26/24 Rx Furosemide [Lasix] 40 mg PO DAILY #30 tab 07/25/24 07/26/24 Rx Losartan [Cozaar] 12.5 mg PO DAILY #15 tab 07/25/24 07/26/24 Rx Metoprolol Tartrate [Lopressor] 50 mg PO BID #60 tab 07/25/24 07/26/24 Rx Nitroglycerin Sl Tabs [Nitrostat] 0.4 mg SUBLINGUAL Q5M PRN #30 tab 07/25/24 07/26/24 Rx Spironolactone [Aldactone] 25 mg PO DAILY #30 tab 07/25/24 07/26/24 Rx Albuterol Inhaler [Ventolin Hfa 2 puff INHALATION RT-Q6H PRN 07/26/24 07/26/24 History Inhaler] Allergies Allergy/AdvReac Type Severity Reaction Status Date / Time Iodinated Contrast Media Allergy Rash/Hives Verified 07/26/24 15:05 Iodine and Iodide Containing Allergy Rash/Hives Verified 07/26/24 15:05 Produc liraglutide [From Saxenda] AdvReac Unknown Nausea & Verified 07/26/24 15:05 Vomiting NSAIDS (Non-Steroidal AdvReac Unknown Nausea & Verified 07/26/24 15:05 Anti-Inflamma Vomiting aspirin AdvReac Nausea & Verified 07/26/24 15:05 Vomiting with high doses azithromycin AdvReac Vomiting Verified 07/26/24 15:05 naproxen [From Naprosyn] AdvReac Nausea & Verified 07/26/24 15:05 Vomiting Physical Exam Vitals: Vital Signs Temp Pulse Pulse Resp BP BP Pulse Ox 07/27/24 11:26 97.5 F L 70 20 98/61 94 L 07/27/24 08:04 97.8 F 67 20 95/57 95 07/27/24 05:26 69 17 88/54 95 07/27/24 04:23 67 18 83/51 94 L 07/26/24 23:48 65 17 90/52 96 07/26/24 22:27 97.6 F 65 18 102/73 98 07/26/24 21:33 71 18 100/61 97 07/26/24 19:55 98.6 F 73 18 104/50 95 07/26/24 17:02 84 22 117/56 96 07/26/24 16:16 78 20 102/54 97 07/26/24 15:30 77 27 H 102/41 100 07/26/24 15:00 83 13 122/65 100 07/26/24 14:47 87 24 122/65 100 Intake and Output 07/26/24 07/27/24 07/27/24 22:59 06:59 14:59 Intake Total 68 68.245 Output Total 150 150 Balance -150 -82 68.245 Intake: Intake, IV Titration 68 68.245 Amount Heparin Sod,Pork in 0.45% 68 68.245 NaCl 25,000 unit In 0.45 % NaCl 1 250ml.bag @ 9. 5853 UNITS/KG/HR 10 mls/ hr IV .Q24H [facility] Rx#: [id number] Output: Urine 150 150 Other: Voiding Method External Catheter External Catheter External Catheter Weight 104.326 kg 81 kg Results 07/27/24 06:58 07/27/24 06:58 Cardiac Enzymes 07/26/24 07/26/24 Range/Units 16:22 19:41 Troponin I 0.451 H* 0.462 H* (0.000-0.034) ng/mL Coagulation 07/26/24 07/27/24 07/27/24 Range/Units 12:58 01:30 06:58 PT 11.3 (10.0-12.5) sec APTT 21.1 L 26.2 24.0 (22.0-30.0) sec CBC 07/27/24 Range/Units 06:58 WBC 6.6 (3.8-10.6) k/uL RBC 2.86 L (3.80-5.40) m/uL Hgb 9.2 L (11.4-16.0) gm/dL Hct 29.6 L (34.0-46.0) % Plt Count 154 (150-450) k/uL Comprehensive Metabolic Panel 07/27/24 Range/Units 06:58 Sodium 132 L (137-145) mmol/L Potassium 4.6 (3.5-5.1) mmol/L Chloride 96 L (98-107) mmol/L Carbon Dioxide 29 (22-30) mmol/L BUN 48 H (7-17) mg/dL Creatinine 1.53 H (0.52-1.04) mg/dL Glucose 268 H (74-99) mg/dL Calcium 7.7 L (8.4-10.2) mg/dL Current Medications Generic Name Dose Route Start Last Admin Trade Name Freq PRN Reason Stop Dose Admin Albuterol Sulfate 2.5 mg 07/26/24 17:25 Albuterol Nebulized 2.5 Mg/3 Ml INHALATION RT-Q6H PRN Shortness Of Breath Alprazolam 2 mg 07/26/24 21:19 07/27/24 06:39 Alprazolam 1 Mg Tab PO 2 mg TID PRN Administration Anxiety Aspirin 81 mg 07/27/24 09:00 07/27/24 07:58 Aspirin 81 Mg PO 81 mg DAILY FLO Administration Atorvastatin Calcium 80 mg 07/26/24 21:00 07/26/24 21:17 Atorvastatin 80 Mg Tab PO 80 mg HS FLO Administration Clopidogrel Bisulfate 75 mg 07/27/24 09:00 07/27/24 07:58 Clopidogrel 75 Mg Tab PO 75 mg DAILY FLO Administration Cyanocobalamin 1,000 mcg 07/27/24 09:00 07/27/24 07:58 Cyanocobalamin 500 Mcg Tab PO 1,000 mcg DAILY FLO Administration Dapagliflozin 10 mg 07/27/24 13:00 07/27/24 13:23 Dapagliflozin Propanediol 10 Mg Tablet PO 10 mg DAILY FLO Administration Dextrose/Water 25 ml 07/27/24 08:56 Dextrose 50% Syringe 50 Ml IVP PER PROTOCOL PRN Hypoglycemia Protocol Dextrose/Water 50 ml 07/27/24 08:56 Dextrose 50% Syringe 50 Ml IVP PER PROTOCOL PRN Hypoglycemia Protocol Duloxetine HCl 60 mg 07/26/24 21:00 07/27/24 07:58 Duloxetine Hcl 60 Mg Capsule.Dr PO 60 mg BID FLO Administration Furosemide 40 mg 07/27/24 09:00 07/27/24 10:09 Furosemide 10 Mg/Ml 4 Ml Vial IV 40 mg Q12HR FLO Administration Heparin Sodium (Porcine) 0 unit 07/26/24 19:12 07/27/24 07:59 Heparin Sodium 1,000 Un/Ml (10ml Vl) IV 4,000 unit PER PROTOCOL PRN Administration Low PTT Protocol Heparin Sodium/Sodium Chloride 250 mls @ 10 mls/hr 07/26/24 19:15 07/27/24 07:51 25,000 unit/ Sodium Chloride IV 15.58 units/kg/hr .Q24H [facility] 16.254 mls/hr Titration Protocol 9.5853 UNITS/KG/HR Insulin Aspart 0 unit 07/26/24 17:30 07/27/24 11:56 Insulin Aspart (Novolog) 100 Unit/Ml Vial SQ 4 unit ACHS FLO Administration Protocol Insulin Aspart 6 unit 07/27/24 12:30 07/27/24 11:56 Insulin Aspart (Novolog) 100 Unit/Ml Vial SQ 6 unit AC-TID FLO Administration Insulin Detemir 60 unit 07/26/24 21:00 07/27/24 06:35 Insulin Detemir (Levemir) 100 Unit/Ml Syr SQ 60 unit BID@0700,2100 FLO Administration Levothyroxine Sodium 300 mcg 07/26/24 17:30 07/27/24 06:35 Levothyroxine 100 Mcg Tab PO 300 mcg DAILY@0630 FLO Administration Losartan Potassium 12.5 mg 07/27/24 09:00 07/27/24 10:08 Losartan 25 Mg Tab PO Not Given DAILY FLO Metoprolol Tartrate 50 mg 07/26/24 21:00 07/27/24 07:55 Metoprolol Tartrate 50 Mg Tab PO Not Given BID FLO Naloxone HCl 0.2 mg 07/26/24 14:36 Naloxone 0.4 Mg/Ml 1 Ml Vial IV Q2M PRN Opioid Reversal Oxycodone HCl 10 mg 07/26/24 21:21 07/27/24 06:39 Oxycodone Hcl 5 Mg Tab PO 10 mg TID PRN Administration Pain Polyethylene Glycol 17 gm 07/26/24 23:31 07/26/24 23:34 Polyethylene Glycol 3350 17 Gm Powd.Pack PO 17 gm DAILY PRN Administration Constipation Spironolactone 25 mg 07/27/24 09:00 07/27/24 07:55 Spironolactone 25 Mg Tab PO Not Given DAILY FLO Trazodone HCl 200 mg 07/26/24 23:00 07/26/24 23:29 Trazodone Hcl 100 Mg Tab PO 200 mg HS FLO Administration Intake and Output 07/26/24 07/27/24 07/27/24 22:59 06:59 14:59 Intake Total 68 68.245 Output Total 150 150 Balance -150 -82 68.245 Intake: Intake, IV Titration 68 68.245 Amount Heparin Sod,Pork in 0.45% 68 68.245 NaCl 25,000 unit In 0.45 % NaCl 1 250ml.bag @ 9. 5853 UNITS/KG/HR 10 mls/ hr IV .Q24H [facility] Rx#: [id number] Output: Urine 150 150 Other: Voiding Method External Catheter External Catheter External Catheter Weight 104.326 kg 81 kg 07/27/24 06:58 07/27/24 06:58
[2024-07-27] MEDS: ONDANSETRON 4 MG TAB PO PRN (16:21)
[2024-07-27 17:08] LABS: Glucose,Whole Blood 235 mg/dL (70-110)
[2024-07-27 17:09] LABS: Glucose,Whole Blood 202 mg/dL (70-110)
[2024-07-27 18:11] LABS: Appearance,Urine Cloudy (Clear); Bacteria,Urine Few /hpf; Bilirubin,Urine Negative (Negative); Blood,Urine Small (Negative); Color,Urine Colorless; Glucose,Urine (UA) 4+ (Negative); Ketones,Urine Negative (Negative); Leukocyte Esterase,Urine Large (Negative); Mucus,Urine Rare /hpf; Nitrite,Urine Negative (Negative); Protein,Urine Trace (Negative); RBC,Urine 8 /hpf (0-5); Squamous Epithelial Cell,Urine 4 /hpf (0-4); Urobilinogen,Urine <2.0 mg/dL (<2.0); WBC,Urine >182 /hpf (0-5)
[2024-07-27 19:51] LABS: Glucose,Whole Blood 152 mg/dL (70-110)
[2024-07-28 06:03] LABS: Anisocytosis Slight; Basophils % (A) 0 %; Eosinophils # (A) 0.2 k/uL (0-0.7); Eosinophils % (A) 2 %; HCT 31.4 % (34.0-46.0); HGB 9.8 gm/dL (11.4-16.0); Hypochromasia Marked; Lymphocytes # (A) 1.1 k/uL (1.0-4.8); Lymphocytes % (A) 12 %; MCH 31.6 pg (25.0-35.0); MCHC 31.1 g/dL (31.0-37.0); MCV 101.5 fL (80.0-100.0); Macrocytosis Slight; Mean Platelet Volume 9.5; Monocytes # (A) 0.4 k/uL (0-1.0); Monocytes % (A) 5 %; Neutrophils # (A) 7.3 k/uL (1.3-7.7); Neutrophils % (A) 81 %; Platelet Count 164 k/uL (150-450); RBC 3.09 m/uL (3.80-5.40); RDW 16.3 % (11.5-15.5)
[2024-07-28 06:05] LABS: Glucose,Whole Blood 79 mg/dL (70-110)
[2024-07-28 06:54] LABS: ALT 16 U/L (4-34); AST 30 U/L (14-36); African American GFR (CKD) 43 (>60 ml/min/1.73 sqM); Albumin 3.4 g/dL (3.5-5.0); Alkaline Phosphatase 171 U/L (38-126); Anion Gap 4 mmol/L; Blood Urea Nitrogen 40 mg/dL (7-17); Calcium 7.7 mg/dL (8.4-10.2); Carbon Dioxide 36 mmol/L (22-30); Chloride 96 mmol/L (98-107); Glucose 60 mg/dL (74-99); Non-African American GFR(CKD) 37 (>60 ml/min/1.73 sqM); Potassium 4.1 mmol/L (3.5-5.1); Sodium 136 mmol/L (137-145); Total Bilirubin 0.6 mg/dL (0.2-1.3); Total Protein 6.8 g/dL (6.3-8.2)
[2024-07-28 08:53] LABS: Glucose,Whole Blood 67 mg/dL (70-110)
[2024-07-28 09:21] LABS: Glucose,Whole Blood 66 mg/dL (70-110)
[2024-07-28 10:32] VITALS: BMI 33.7
[2024-07-28 11:05] LABS: Glucose,Whole Blood 108 mg/dL (70-110)
[2024-07-28 11:36] LABS: Glucose,Whole Blood 124 mg/dL (70-110)
[2024-07-28] MEDS: INSULIN ASPART (NovoLOG) 100 UNIT/ML VIAL SQ SCH (12:23)
--- NOTE | 2024-07-28 12:33 | P.PN ---
Subjective HISTORY OF PRESENT ILLNESS: This is a 69-year-old female who presented to the hospital secondary to lethargy and hypoxia with an oxygen saturation in the 70s. According to the patient's nurse she was told that the patient's oxygen tubing at home was kinked from her wheelchair which led to her hypoxia. Patient currently is awake and alert. She denies any chest pain or pressure. She denies any shortness of breath. Vital signs are stable. She remains on IV heparin. Patient also remains on IV Lasix. PHYSICAL EXAM: VITAL SIGNS: Reviewed. GENERAL: Well-developed in no acute distress. NECK: Supple. No JVD or thyromegaly LUNGS: Respirations even and unlabored. Lungs essentially clear to auscultation bilaterally. HEART: Regular rate and rhythm. S1 and S2 heard. EXTREMITIES: Normal range of motion. No clubbing or cyanosis. Peripheral pulses intact. No lower extremity edema ASSESSMENT: Altered mental status, resolved Acute hypoxic respiratory failure Elevated troponins, suspect type II NH secondary to oxygen supply/demand mis match Acute on chronic heart failure with reduced EF Ischemic cardiomyopathy with a EF of 20 to 25% CAD status post PCI to LAD 07/17/2024, residual 80% disease in LCx, difficult to intervene because of acute angle origin. 40% mid RCA disease Diabetes Morbid obesity, BMI 33.7 Reported medication noncompliance PLAN: Discontinue IV heparin. Begin heparin subcu Continue IV Lasix for today. Begin oral Bumex 1 mg daily starting tomorrow Obtain limited echo Obtain chest x-ray tomorrow morning Continue additional cardiac medications Continue LifeVest Further recommendations pending patient course Nurse practitioner note has been reviewed by physician. Signing provider agrees with the documented findings, assessment, and plan of care documented by BRICK UNLOADER TENDER as a scribe. Objective - Vital Signs Vital signs: Vital Signs Temp 98.3 F 07/28/24 12:22 Pulse 66 07/28/24 12:22 Resp 18 07/28/24 12:22 BP 118/65 07/28/24 12:22 Pulse Ox 97 07/28/24 12:22 FiO2 Intake & Output 07/27/24 07/28/24 07/28/24 18:59 06:59 18:59 Intake Total 178.245 823.123 128 Output Total 0 1350 Balance 178.245 -526.877 128 Weight 89 kg 89 kg Intake: IV 10 Invasive Line 1 10 Intake, IV Titration 68.245 283.123 Amount Heparin Sod,Pork in 0.45% 68.245 283.123 NaCl 25,000 unit In 0.45 % NaCl 1 250ml.bag @ 9. 5853 UNITS/KG/HR 10 mls/ hr IV .Q24H COUNT [facility] Rx#: [id number] Oral 110 540 118 Output: Urine 0 1350 Uretheral ([place]) 1350 Other: Voiding Method External Catheter Indwelling Catheter Indwelling Catheter # Voids 0 - Labs CBC & Chem 7: 07/28/24 05:31 07/28/24 05:31 Labs: Abnormal Lab Results - Last 24 Hours (Table) 07/27/24 07/27/24 07/27/24 Range/Units 06:58 11:38 13:56 RBC (3.80-5.40) m/uL Hgb (11.4-16.0) gm/dL Hct (34.0-46.0) % MCV (80.0-100.0) fL RDW (11.5-15.5) % APTT 36.7 H (22.0-30.0) sec Sodium (137-145) mmol/L Chloride (98-107) mmol/L Carbon Dioxide (22-30) mmol/L BUN (7-17) mg/dL Creatinine (0.52-1.04) mg/dL Glucose (74-99) mg/dL POC Glucose (mg/dL) 235 H (70-110) mg/dL Hemoglobin A1c 9.0 H (<=6.0) % Calcium (8.4-10.2) mg/dL Alkaline Phosphatase (38-126) U/L Albumin (3.5-5.0) g/dL Urine Appearance (Clear) Urine Protein (Negative) Urine Glucose (UA) (Negative) Urine Blood (Negative) Ur Leukocyte Esterase (Negative) Urine RBC (0-5) /hpf Urine WBC (0-5) /hpf Urine WBC Clumps (None) /hpf Urine Bacteria (None) /hpf Urine Mucus (None) /hpf 07/27/24 07/27/24 07/27/24 Range/Units 16:51 17:30 19:50 RBC (3.80-5.40) m/uL Hgb (11.4-16.0) gm/dL Hct (34.0-46.0) % MCV (80.0-100.0) fL RDW (11.5-15.5) % APTT (22.0-30.0) sec Sodium (137-145) mmol/L Chloride (98-107) mmol/L Carbon Dioxide (22-30) mmol/L BUN (7-17) mg/dL Creatinine (0.52-1.04) mg/dL Glucose (74-99) mg/dL POC Glucose (mg/dL) 202 H 152 H (70-110) mg/dL Hemoglobin A1c (<=6.0) % Calcium (8.4-10.2) mg/dL Alkaline Phosphatase (38-126) U/L Albumin (3.5-5.0) g/dL Urine Appearance Cloudy H (Clear) Urine Protein Trace H (Negative) Urine Glucose (UA) 4+ H (Negative) Urine Blood Small H (Negative) Ur Leukocyte Esterase Large H (Negative) Urine RBC 8 H (0-5) /hpf Urine WBC >182 H (0-5) /hpf Urine WBC Clumps Many H (None) /hpf Urine Bacteria Few H (None) /hpf Urine Mucus Rare H (None) /hpf 07/27/24 07/28/24 07/28/24 Range/Units 20:26 05:31 05:31 RBC 3.09 L (3.80-5.40) m/uL Hgb 9.8 L (11.4-16.0) gm/dL Hct 31.4 L (34.0-46.0) % MCV 101.5 H (80.0-100.0) fL RDW 16.3 H (11.5-15.5) % APTT 35.5 H (22.0-30.0) sec Sodium (137-145) mmol/L Chloride (98-107) mmol/L Carbon Dioxide (22-30) mmol/L BUN (7-17) mg/dL Creatinine (0.52-1.04) mg/dL Glucose (74-99) mg/dL POC Glucose (mg/dL) (70-110) mg/dL Hemoglobin A1c 9.4 H (<=6.0) % Calcium (8.4-10.2) mg/dL Alkaline Phosphatase (38-126) U/L Albumin (3.5-5.0) g/dL Urine Appearance (Clear) Urine Protein (Negative) Urine Glucose (UA) (Negative) Urine Blood (Negative) Ur Leukocyte Esterase (Negative) Urine RBC (0-5) /hpf Urine WBC (0-5) /hpf Urine WBC Clumps (None) /hpf Urine Bacteria (None) /hpf Urine Mucus (None) /hpf 07/28/24 07/28/24 07/28/24 Range/Units 05:31 05:31 08:52 RBC (3.80-5.40) m/uL Hgb (11.4-16.0) gm/dL Hct (34.0-46.0) % MCV (80.0-100.0) fL RDW (11.5-15.5) % APTT 33.2 H (22.0-30.0) sec Sodium 136 L (137-145) mmol/L Chloride 96 L (98-107) mmol/L Carbon Dioxide 36 H (22-30) mmol/L BUN 40 H (7-17) mg/dL Creatinine 1.43 H (0.52-1.04) mg/dL Glucose 60 L (74-99) mg/dL POC Glucose (mg/dL) 67 L (70-110) mg/dL Hemoglobin A1c (<=6.0) % Calcium 7.7 L (8.4-10.2) mg/dL Alkaline Phosphatase 171 H (38-126) U/L Albumin 3.4 L (3.5-5.0) g/dL Urine Appearance (Clear) Urine Protein (Negative) Urine Glucose (UA) (Negative) Urine Blood (Negative) Ur Leukocyte Esterase (Negative) Urine RBC (0-5) /hpf Urine WBC (0-5) /hpf Urine WBC Clumps (None) /hpf Urine Bacteria (None) /hpf Urine Mucus (None) /hpf 07/28/24 07/28/24 Range/Units 09:18 11:34 RBC (3.80-5.40) m/uL Hgb (11.4-16.0) gm/dL Hct (34.0-46.0) % MCV (80.0-100.0) fL RDW (11.5-15.5) % APTT (22.0-30.0) sec Sodium (137-145) mmol/L Chloride (98-107) mmol/L Carbon Dioxide (22-30) mmol/L BUN (7-17) mg/dL Creatinine (0.52-1.04) mg/dL Glucose (74-99) mg/dL POC Glucose (mg/dL) 66 L 124 H (70-110) mg/dL Hemoglobin A1c (<=6.0) % Calcium (8.4-10.2) mg/dL Alkaline Phosphatase (38-126) U/L Albumin (3.5-5.0) g/dL Urine Appearance (Clear) Urine Protein (Negative) Urine Glucose (UA) (Negative) Urine Blood (Negative) Ur Leukocyte Esterase (Negative) Urine RBC (0-5) /hpf Urine WBC (0-5) /hpf Urine WBC Clumps (None) /hpf Urine Bacteria (None) /hpf Urine Mucus (None) /hpf
--- NOTE | 2024-07-28 13:34 | P.PN ---
Subjective Progress Note Date: 07/28/24 patient is 69-year-old lady with past medical history significant for coronary artery disease with previous stenting, hypertension, hyperlipidemia, diabetes, and obesity who was brought to the ER for altered mental status. Patient only recently discharged on 07/25 after being treated for CHF and underwent a cardiac cath with PCI to LAD. Patient was brought back to the hospital as daughter found patient to be less responsive. Patient daughter stated that when she went to check on her mom she was very lethargic. Patient was discharged on liters of oxygen but was not using her oxygen properly as the tubing was kinked on her wheelchair. is unable to provide take care of her. No complaint of chest pain. Denies any fever or chills. EMS was called and found her to be saturating in the 70s. Because of patient being lethargic and less arousable, patient was brought to the ER Initial lab work done in the ER showed showed WBC 8.2, hemoglobin 9.8, platelet count 179, sodium 131, potassium 5.3, BUN 43, creatinine 1.48, glucose 421, troponin 0.270 proBNP 9620 influenza A not detected Influenza B not detected RSV not detected COVID-19 not detected EKG done in the ER showed heart rate of 83, no ST segment elevation or depression seen, no T-wave inversions seen. Chest x-ray done in the ER showed cardiomegaly and mild pulmonary vascular congestion. Patient admitted to internal medicine service 07/28. Patient seen and examined. WBC 9, hemoglobin 9.8, sodium 130, potassium 4.1, BUN 40, creatinine 1.43. Patient states she feels slightly better compared to yesterday, breathing has improved. REVIEW OF SYSTEMS: CONSTITUTIONAL: No fever, no malaise,. CARDIOVASCULAR: No chest pain, no palpitations, no syncope. PULMONARY: As mentioned above GASTROINTESTINAL: No diarrhea, no nausea, no vomiting, no abdominal pain. NEUROLOGICAL: No headaches, no weakness, PHYSICAL EXAMINATION: GENERAL: The patient is alert and oriented x3, ill looking HEENT: Pupils are round and equally reacting to light. EOMI. No scleral icterus. No conjunctival pallor. Normocephalic, atraumatic. No pharyngeal erythema. No thyromegaly. CARDIOVASCULAR: S1 and S2 present. No murmurs, rubs, or gallops. PULMONARY: Diminished breath sounds at the bases bilaterally, no wheezing or crackles. ABDOMEN: Soft, nontender, nondistended, normoactive bowel sounds. No palpable organomegaly. MUSCULOSKELETAL: No joint swelling or deformity. EXTREMITIES: No cyanosis, clubbing, or pedal edema. NEUROLOGICAL: Gross neurological examination did not reveal any focal deficits. SKIN: No rashes. Assessment and plan Acute on chronic hypoxic respiratory failure Elevated troponin, recent cardiac cath and PCI to LAD on 07/17 acute on chronic congestive heart failure systolic dysfunction ejection fraction 20 to 25% Coronary artery disease with previous stenting of the LAD Hyponatremia Hyperkalemia Hyperglycemia Known moderate disease of the RCA Hypertension Hyperlipidemia Diabetes with hyperglycemia Obesity Medication noncompliance Monitor vital signs Monitor CBC Monitor CMP Continue telemetry monitoring Trend troponins Serial ABGs Continue oxygen supplementation Continue aggressive bronchopulmonary hygiene Continue pharmacy dose heparin for 48 hours Patient recent 2D echo done, no need to repeat it at this time. Strict I's and O's, daily weights, IV Lasix 40 mg every 12 Ordered blood glucose monitoring, continue home regimen of Lantus Cardiology following Pulmonary following PT and OT consulted Labs and medication were reviewed.. Continue same treatment. Continue with symptomatic treatment. Resume home medication. Monitor labs and vitals. DVT and GI prophylaxis. Further recommendations as per clinical course of the patient Dictation was produced using [employer] dictation software. please excuse any grammatical, word or spelling errors. Objective - Vital Signs Vital signs: Vital Signs Temp 98.3 F 07/28/24 08:39 Pulse 72 07/28/24 08:39 Resp 16 07/28/24 08:39 BP 98/59 07/28/24 08:39 Pulse Ox 94 L 07/28/24 08:39 FiO2 Intake & Output 07/27/24 07/28/24 07/28/24 18:59 06:59 18:59 Intake Total 178.245 823.123 128 Output Total 0 1350 Balance 178.245 -526.877 128 Weight 89 kg Intake: IV 10 Invasive Line 1 10 Intake, IV Titration 68.245 283.123 Amount Heparin Sod,Pork in 0.45% 68.245 283.123 NaCl 25,000 unit In 0.45 % NaCl 1 250ml.bag @ 9. 5853 UNITS/KG/HR 10 mls/ hr IV .Q24H [facility] Rx#: [id number] Oral 110 540 118 Output: Urine 0 1350 Uretheral ([place]) 1350 Other: Voiding Method External Catheter Indwelling Catheter Indwelling Catheter # Voids 0 - Labs CBC & Chem 7: 07/28/24 05:31 07/28/24 05:31 Labs: Abnormal Lab Results - Last 24 Hours (Table) 07/27/24 07/27/24 07/27/24 Range/Units 06:58 11:38 13:56 RBC (3.80-5.40) m/uL Hgb (11.4-16.0) gm/dL Hct (34.0-46.0) % MCV (80.0-100.0) fL RDW (11.5-15.5) % APTT 36.7 H (22.0-30.0) sec Sodium (137-145) mmol/L Chloride (98-107) mmol/L Carbon Dioxide (22-30) mmol/L BUN (7-17) mg/dL Creatinine (0.52-1.04) mg/dL Glucose (74-99) mg/dL POC Glucose (mg/dL) 235 H (70-110) mg/dL Hemoglobin A1c 9.0 H (<=6.0) % Calcium (8.4-10.2) mg/dL Alkaline Phosphatase (38-126) U/L Albumin (3.5-5.0) g/dL Urine Appearance (Clear) Urine Protein (Negative) Urine Glucose (UA) (Negative) Urine Blood (Negative) Ur Leukocyte Esterase (Negative) Urine RBC (0-5) /hpf Urine WBC (0-5) /hpf Urine WBC Clumps (None) /hpf Urine Bacteria (None) /hpf Urine Mucus (None) /hpf 07/27/24 07/27/24 07/27/24 Range/Units 16:51 17:30 19:50 RBC (3.80-5.40) m/uL Hgb (11.4-16.0) gm/dL Hct (34.0-46.0) % MCV (80.0-100.0) fL RDW (11.5-15.5) % APTT (22.0-30.0) sec Sodium (137-145) mmol/L Chloride (98-107) mmol/L Carbon Dioxide (22-30) mmol/L BUN (7-17) mg/dL Creatinine (0.52-1.04) mg/dL Glucose (74-99) mg/dL POC Glucose (mg/dL) 202 H 152 H (70-110) mg/dL Hemoglobin A1c (<=6.0) % Calcium (8.4-10.2) mg/dL Alkaline Phosphatase (38-126) U/L Albumin (3.5-5.0) g/dL Urine Appearance Cloudy H (Clear) Urine Protein Trace H (Negative) Urine Glucose (UA) 4+ H (Negative) Urine Blood Small H (Negative) Ur Leukocyte Esterase Large H (Negative) Urine RBC 8 H (0-5) /hpf Urine WBC >182 H (0-5) /hpf Urine WBC Clumps Many H (None) /hpf Urine Bacteria Few H (None) /hpf Urine Mucus Rare H (None) /hpf 07/27/24 07/28/24 07/28/24 Range/Units 20:26 05:31 05:31 RBC 3.09 L (3.80-5.40) m/uL Hgb 9.8 L (11.4-16.0) gm/dL Hct 31.4 L (34.0-46.0) % MCV 101.5 H (80.0-100.0) fL RDW 16.3 H (11.5-15.5) % APTT 35.5 H (22.0-30.0) sec Sodium (137-145) mmol/L Chloride (98-107) mmol/L Carbon Dioxide (22-30) mmol/L BUN (7-17) mg/dL Creatinine (0.52-1.04) mg/dL Glucose (74-99) mg/dL POC Glucose (mg/dL) (70-110) mg/dL Hemoglobin A1c 9.4 H (<=6.0) % Calcium (8.4-10.2) mg/dL Alkaline Phosphatase (38-126) U/L Albumin (3.5-5.0) g/dL Urine Appearance (Clear) Urine Protein (Negative) Urine Glucose (UA) (Negative) Urine Blood (Negative) Ur Leukocyte Esterase (Negative) Urine RBC (0-5) /hpf Urine WBC (0-5) /hpf Urine WBC Clumps (None) /hpf Urine Bacteria (None) /hpf Urine Mucus (None) /hpf 07/28/24 07/28/24 07/28/24 Range/Units 05:31 05:31 08:52 RBC (3.80-5.40) m/uL Hgb (11.4-16.0) gm/dL Hct (34.0-46.0) % MCV (80.0-100.0) fL RDW (11.5-15.5) % APTT 33.2 H (22.0-30.0) sec Sodium 136 L (137-145) mmol/L Chloride 96 L (98-107) mmol/L Carbon Dioxide 36 H (22-30) mmol/L BUN 40 H (7-17) mg/dL Creatinine 1.43 H (0.52-1.04) mg/dL Glucose 60 L (74-99) mg/dL POC Glucose (mg/dL) 67 L (70-110) mg/dL Hemoglobin A1c (<=6.0) % Calcium 7.7 L (8.4-10.2) mg/dL Alkaline Phosphatase 171 H (38-126) U/L Albumin 3.4 L (3.5-5.0) g/dL Urine Appearance (Clear) Urine Protein (Negative) Urine Glucose (UA) (Negative) Urine Blood (Negative) Ur Leukocyte Esterase (Negative) Urine RBC (0-5) /hpf Urine WBC (0-5) /hpf Urine WBC Clumps (None) /hpf Urine Bacteria (None) /hpf Urine Mucus (None) /hpf 07/28/24 Range/Units 09:18 RBC (3.80-5.40) m/uL Hgb (11.4-16.0) gm/dL Hct (34.0-46.0) % MCV (80.0-100.0) fL RDW (11.5-15.5) % APTT (22.0-30.0) sec Sodium (137-145) mmol/L Chloride (98-107) mmol/L Carbon Dioxide (22-30) mmol/L BUN (7-17) mg/dL Creatinine (0.52-1.04) mg/dL Glucose (74-99) mg/dL POC Glucose (mg/dL) 66 L (70-110) mg/dL Hemoglobin A1c (<=6.0) % Calcium (8.4-10.2) mg/dL Alkaline Phosphatase (38-126) U/L Albumin (3.5-5.0) g/dL Urine Appearance (Clear) Urine Protein (Negative) Urine Glucose (UA) (Negative) Urine Blood (Negative) Ur Leukocyte Esterase (Negative) Urine RBC (0-5) /hpf Urine WBC (0-5) /hpf Urine WBC Clumps (None) /hpf Urine Bacteria (None) /hpf Urine Mucus (None) /hpf
--- NOTE | 2024-07-28 14:02 | P.PN ---
Subjective Progress Note Date: 07/28/24 Principal diagnosis: Acute hypoxic respiratory failure secondary to acute systolic congestive heart failure On 07/27/2024, the patient is being seen in consultation. The patient was seen in consult during her last admission and the patient was discharged home yesterday to be readmitted back to the hospital because of worsening shortness of breath diminished level of consciousness. The patient was discharged home with oxygen and she also had a decompensated heart failure post DE post angioplasty and stenting and the patient was given a LifeVest. While at home, the patient decompensated. She was unable to take care of herself. Furthermore, she was noted to be desaturating with a pulse ox as low as in the 70s and apparently her oxygen tube was kinked under her wheelchair. She was immediately brought back to the hospital and she was initially placed on nonrebreather facemask and a blood gas was done that showed a pH of 7.32 with a pCO2 of 62 and pO2 of 142. Subsequently, she was taken off the nonrebreather and the patient is currently on 5 L of oxygen by nasal cannula with a pulse ox of 94%. Chest x-ray was repeated and the patient has cardiomegaly and pulm vessel congestion consistent with CHF. Her blood work showed a WBC count of 6.6 with a hemoglobin 9.2 and a platelet count of 154. BUN 48 with a creatinine of 1.5 and a sodium levels at 132. Glucose level was at 288. Calcium is at 7.7. UA showed 8 WBCs. Based on that, the patient was readmitted to the hospital. She also had elevation in troponins and the levels were 0.2 and 0.4 and 0 point respectively x 3. Home medications have been resumed. She is on aspirin and Plavix. She was started on IV Lasix 40 mg every 12 hours patient was started on IV heparin. Cardiology was consulted. She remains on Aldactone. She remains on metoprolol 50 mg p.o. twice a day. Patient was evaluated today on 07/28/2024, patient is on3 L nasal cannula, O2 sats 97%, patient is steadily improving, breathing easier, remains on IV Lasix and IV heparin. CBC is relatively normal PTT is 49.3 basic metabolic profile is normal BUN is 40 creatinine 1.43 troponin is a bit elevated BNP level is 9620, viral screening is negative Objective - Vital Signs Vital signs: Vital Signs Temp 98.3 F 07/28/24 12:22 Pulse 66 07/28/24 12:22 Resp 18 07/28/24 12:22 BP 118/65 07/28/24 12:22 Pulse Ox 97 07/28/24 12:22 FiO2 Intake & Output 07/27/24 07/28/24 07/28/24 18:59 06:59 18:59 Intake Total 178.245 823.123 246 Output Total 0 1350 Balance 178.245 -526.877 246 Weight 89 kg 89 kg Intake: IV 10 Invasive Line 1 10 Intake, IV Titration 68.245 283.123 Amount Heparin Sod,Pork in 0.45% 68.245 283.123 NaCl 25,000 unit In 0.45 % NaCl 1 250ml.bag @ 9. 5853 UNITS/KG/HR 10 mls/ hr IV .Q24H [facility] Rx#: [id number] Oral 110 540 236 Output: Urine 0 1350 Uretheral ([place]) 1350 Other: Voiding Method External Catheter Indwelling Catheter Indwelling Catheter # Voids 0 3 - Exam Physical exam revealed 69-year-old female in no distress, on 3 L nasal cannula O2 sat is 97% Head: Atraumatic normocephalic HEENT: PERRLA, EOMI, nonicteric, no neck masses no JVD, no stridor Cardiac: Distant S1-S2, no S3 gallop, no murmur Lungs: Crackles at the bases no rhonchi no wheezes Abdomen: Soft nontender no MAG no rebound no guarding Extremities 1+ bipedal edema Skin: No rashes Neurologic exam profoundly weak otherwise no gross focal deficit. Psychiatric: Difficult to assess - Labs CBC & Chem 7: 07/28/24 05:31 07/28/24 05:31 Labs: Abnormal Lab Results - Last 24 Hours (Table) 07/27/24 07/27/24 07/27/24 Range/Units 06:58 11:38 13:56 RBC (3.80-5.40) m/uL Hgb (11.4-16.0) gm/dL Hct (34.0-46.0) % MCV (80.0-100.0) fL RDW (11.5-15.5) % APTT 36.7 H (22.0-30.0) sec Sodium (137-145) mmol/L Chloride (98-107) mmol/L Carbon Dioxide (22-30) mmol/L BUN (7-17) mg/dL Creatinine (0.52-1.04) mg/dL Glucose (74-99) mg/dL POC Glucose (mg/dL) 235 H (70-110) mg/dL Hemoglobin A1c 9.0 H (<=6.0) % Calcium (8.4-10.2) mg/dL Alkaline Phosphatase (38-126) U/L Albumin (3.5-5.0) g/dL Urine Appearance (Clear) Urine Protein (Negative) Urine Glucose (UA) (Negative) Urine Blood (Negative) Ur Leukocyte Esterase (Negative) Urine RBC (0-5) /hpf Urine WBC (0-5) /hpf Urine WBC Clumps (None) /hpf Urine Bacteria (None) /hpf Urine Mucus (None) /hpf 07/27/24 07/27/24 07/27/24 Range/Units 16:51 17:30 19:50 RBC (3.80-5.40) m/uL Hgb (11.4-16.0) gm/dL Hct (34.0-46.0) % MCV (80.0-100.0) fL RDW (11.5-15.5) % APTT (22.0-30.0) sec Sodium (137-145) mmol/L Chloride (98-107) mmol/L Carbon Dioxide (22-30) mmol/L BUN (7-17) mg/dL Creatinine (0.52-1.04) mg/dL Glucose (74-99) mg/dL POC Glucose (mg/dL) 202 H 152 H (70-110) mg/dL Hemoglobin A1c (<=6.0) % Calcium (8.4-10.2) mg/dL Alkaline Phosphatase (38-126) U/L Albumin (3.5-5.0) g/dL Urine Appearance Cloudy H (Clear) Urine Protein Trace H (Negative) Urine Glucose (UA) 4+ H (Negative) Urine Blood Small H (Negative) Ur Leukocyte Esterase Large H (Negative) Urine RBC 8 H (0-5) /hpf Urine WBC >182 H (0-5) /hpf Urine WBC Clumps Many H (None) /hpf Urine Bacteria Few H (None) /hpf Urine Mucus Rare H (None) /hpf 07/27/24 07/28/24 07/28/24 Range/Units 20:26 05:31 05:31 RBC 3.09 L (3.80-5.40) m/uL Hgb 9.8 L (11.4-16.0) gm/dL Hct 31.4 L (34.0-46.0) % MCV 101.5 H (80.0-100.0) fL RDW 16.3 H (11.5-15.5) % APTT 35.5 H (22.0-30.0) sec Sodium (137-145) mmol/L Chloride (98-107) mmol/L Carbon Dioxide (22-30) mmol/L BUN (7-17) mg/dL Creatinine (0.52-1.04) mg/dL Glucose (74-99) mg/dL POC Glucose (mg/dL) (70-110) mg/dL Hemoglobin A1c 9.4 H (<=6.0) % Calcium (8.4-10.2) mg/dL Alkaline Phosphatase (38-126) U/L Albumin (3.5-5.0) g/dL Urine Appearance (Clear) Urine Protein (Negative) Urine Glucose (UA) (Negative) Urine Blood (Negative) Ur Leukocyte Esterase (Negative) Urine RBC (0-5) /hpf Urine WBC (0-5) /hpf Urine WBC Clumps (None) /hpf Urine Bacteria (None) /hpf Urine Mucus (None) /hpf 07/28/24 07/28/24 07/28/24 Range/Units 05:31 05:31 08:52 RBC (3.80-5.40) m/uL Hgb (11.4-16.0) gm/dL Hct (34.0-46.0) % MCV (80.0-100.0) fL RDW (11.5-15.5) % APTT 33.2 H (22.0-30.0) sec Sodium 136 L (137-145) mmol/L Chloride 96 L (98-107) mmol/L Carbon Dioxide 36 H (22-30) mmol/L BUN 40 H (7-17) mg/dL Creatinine 1.43 H (0.52-1.04) mg/dL Glucose 60 L (74-99) mg/dL POC Glucose (mg/dL) 67 L (70-110) mg/dL Hemoglobin A1c (<=6.0) % Calcium 7.7 L (8.4-10.2) mg/dL Alkaline Phosphatase 171 H (38-126) U/L Albumin 3.4 L (3.5-5.0) g/dL Urine Appearance (Clear) Urine Protein (Negative) Urine Glucose (UA) (Negative) Urine Blood (Negative) Ur Leukocyte Esterase (Negative) Urine RBC (0-5) /hpf Urine WBC (0-5) /hpf Urine WBC Clumps (None) /hpf Urine Bacteria (None) /hpf Urine Mucus (None) /hpf 07/28/24 07/28/24 07/28/24 Range/Units 09:18 11:34 12:16 RBC (3.80-5.40) m/uL Hgb (11.4-16.0) gm/dL Hct (34.0-46.0) % MCV (80.0-100.0) fL RDW (11.5-15.5) % APTT 49.3 H (22.0-30.0) sec Sodium (137-145) mmol/L Chloride (98-107) mmol/L Carbon Dioxide (22-30) mmol/L BUN (7-17) mg/dL Creatinine (0.52-1.04) mg/dL Glucose (74-99) mg/dL POC Glucose (mg/dL) 66 L 124 H (70-110) mg/dL Hemoglobin A1c (<=6.0) % Calcium (8.4-10.2) mg/dL Alkaline Phosphatase (38-126) U/L Albumin (3.5-5.0) g/dL Urine Appearance (Clear) Urine Protein (Negative) Urine Glucose (UA) (Negative) Urine Blood (Negative) Ur Leukocyte Esterase (Negative) Urine RBC (0-5) /hpf Urine WBC (0-5) /hpf Urine WBC Clumps (None) /hpf Urine Bacteria (None) /hpf Urine Mucus (None) /hpf Assessment and Plan Assessment: Impression: Acute hypoxemic, and hypercapnic respiratory failure, multifactorial. But mostly secondary to severe LV dysfunction and congestive heart failure Systolic heart failure with impaired ejection fraction of 20 to 25% Acute kidney injury, likely secondary to cardiorenal factors, creatinine remained stable relative to her discharge values Small left-sided pleural effusion Non-ST elevation myocardial infarction, S/P PCI and stenting of her LAD, on 07/17/2024, currently on a combination of aspirin and Plavix. The patient is also on metoprolol and high-dose statins. Coronary artery disease with previous stent placement. The patient also has previous history of myocardial infarction.. The patient has an abnormal troponin and the patient is currently on IV heparin. Hypertension. Maintained on losartan for blood pressure control. Hyperlipidemia. 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 Diabetes mellitus, type II.The patient is on Levemir insulin 60 units twice a day Former smoker Recommendations: Continue oxygen and titrate accordingly Continue Lasix and Aldactone Continue aspirin Plavix Continue losartan metoprolol Continue Lipitor Continue insulin Levemir and sliding scale insulin Continue to monitor renal profile LifeVest as before upon discharge Prognosis extremely poor and guarded Continue to follow Time with Patient: Less than 30
[2024-07-28 16:47] LABS: Glucose,Whole Blood 166 mg/dL (70-110)
--- NOTE | 2024-07-28 18:38 | CA ---
Transthoracic Echo Report Name: Rosalinda Brothers Age: 69 Gender: F : 1955 Exam Date: 07/28/2024 11:22 Exam Location: [facility] Ht (in): 64 Wt (lb): 196 Ordering Physician: Dejah Morgan Attending/Referring Phys: [id number], Cathy Job Interviewer Abby Wong RDCS Procedure CPT: Indications: LV function, recent PCI Cardiac Hx: limited study Technical Quality: Technically difficult study Contrast 1: Definity Total Dose (mL): 2 Contrast 2: Total Dose (mL): MEASUREMENTS (Male / Female) Normal Values 2D ECHO LV Diastolic Volume MOD BP 93.1 cm??? 67 - 155 / 56 - 104 cm??? LV Systolic Volume MOD BP 63.8 cm??? 22 - 58 / 19 - 49 cm??? LV Ejection Fraction MOD BP 31.5 % >= 55 % LV Cardiac Index MOD BP 949.4 cm???/min???m??? LV Diastolic Volume MOD 4C 86.6 cm??? LV Systolic Volume MOD 4C 56.2 cm??? LV Ejection Fraction MOD 4C 35.1 % LV Cardiac Index MOD 4C 984.5 cm???/min???m??? LV Diastolic Length 4C 6.8 cm LV Systolic Length 4C 6.5 cm LV Diastolic Volume MOD 2C 94.8 cm??? LV Systolic Volume MOD 2C 64.1 cm??? LV Ejection Fraction MOD 2C 32.3 % LV Cardiac Index MOD 2C 991.3 cm???/min???m??? LV Diastolic Length 2C 6.4 cm LV Systolic Length 2C 7.4 cm DOPPLER TR Peak Velocity 272.5 cm/s TR Peak Gradient 29.7 mmHg Right Ventricular Systolic Press 34.7 mmHg FINDINGS Left Ventricle Left ventricular ejection fraction is estimated at 30-35 %. Moderately reduced global left ventricular systolic function. Mid and apical stokes hypokinesis Right Ventricle Mild pulmonary hypertension. Right Atrium Left Atrium Mitral Valve Aortic Valve Tricuspid Valve Pulmonic Valve Pericardium No pericardial or pleural effusion. 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 Niraj Bronson MD (Electronically Signed) Final Date: 28 July 2024 18:38
[2024-07-28] MEDS: MAG HYDROX/AL HYDROX/SIMETH 30 ML CUP PO PRN (18:59)
[2024-07-28 20:03] LABS: Glucose,Whole Blood 171 mg/dL (70-110)
[2024-07-28] MEDS: HEPARIN SODIUM,PORCINE 5,000 UNIT/ML 1 ML VIAL SQ SCH (20:19)
[2024-07-29 02:02] LABS: Glucose,Whole Blood 161 mg/dL (70-110)
[2024-07-29 06:11] LABS: Glucose,Whole Blood 195 mg/dL (70-110)
[2024-07-29 07:09] LABS: Anisocytosis Slight; Basophils % (A) 0 %; Eosinophils # (A) 0.1 k/uL (0-0.7); Eosinophils % (A) 1 %; HCT 29.5 % (34.0-46.0); HGB 9.1 gm/dL (11.4-16.0); Hypochromasia Marked; Lymphocytes # (A) 1.3 k/uL (1.0-4.8); Lymphocytes % (A) 15 %; MCH 31.5 pg (25.0-35.0); MCV 101.7 fL (80.0-100.0); Macrocytosis Slight; Mean Platelet Volume 9.6; Monocytes # (A) 0.4 k/uL (0-1.0); Monocytes % (A) 4 %; Neutrophils # (A) 6.6 k/uL (1.3-7.7); Neutrophils % (A) 78 %; Platelet Count 182 k/uL (150-450); RDW 16.5 % (11.5-15.5); WBC 8.5 k/uL (3.8-10.6)
[2024-07-29 07:19] LABS: ALT 15 U/L (4-34); AST 26 U/L (14-36); African American GFR (CKD) 42 (>60 ml/min/1.73 sqM); Albumin 3.1 g/dL (3.5-5.0); Alkaline Phosphatase 164 U/L (38-126); Anion Gap 1 mmol/L; Blood Urea Nitrogen 38 mg/dL (7-17); Calcium 7.5 mg/dL (8.4-10.2); Carbon Dioxide 37 mmol/L (22-30); Chloride 93 mmol/L (98-107); Glucose 171 mg/dL (74-99); Non-African American GFR(CKD) 37 (>60 ml/min/1.73 sqM); Potassium 4.5 mmol/L (3.5-5.1); Sodium 131 mmol/L (137-145); Total Bilirubin 0.6 mg/dL (0.2-1.3); Total Protein 6.2 g/dL (6.3-8.2)
--- NOTE | 2024-07-29 08:26 | XR ---
EXAMINATION TYPE: XR chest 2V DATE OF EXAM: 07/29/2024 6:52 AM COMPARISON: 07/26/2024 CLINICAL INDICATION: Female, 69 years old with history of CHF, , TECHNIQUE: AP and lateral views FINDINGS: Multiple electronic devices project over the chest. Heart is enlarged. Diffuse interstitial densities persist. Prominent focal posterior basilar opacity best seen on the lateral view. IMPRESSION: Mild cardiomegaly and pulmonary vascular congestion similar to slightly worsened. There is prominent posterior basilar opacity on the lateral view that could represent a moderate effusion or underlying airspace disease. Reassess for clearance following treatment. [facility], , 07/29/2024 8:24 AM
[2024-07-29] MEDS: BUMETANIDE 1 MG TAB PO SCH (09:13)
[2024-07-29 11:48] LABS: Glucose,Whole Blood 127 mg/dL (70-110)
--- NOTE | 2024-07-29 12:13 | P.PN ---
Subjective Progress Note Date: 07/29/24 Principal diagnosis: Acute hypoxic respiratory failure secondary to acute systolic congestive heart failure On 07/27/2024, the patient is being seen in consultation. The patient was seen in consult during her last admission and the patient was discharged home yesterday to be readmitted back to the hospital because of worsening shortness of breath diminished level of consciousness. The patient was discharged home with oxygen and she also had a decompensated heart failure post IN post angioplasty and stenting and the patient was given a LifeVest. While at home, the patient decompensated. She was unable to take care of herself. Furthermore, she was noted to be desaturating with a pulse ox as low as in the 70s and apparently her oxygen tube was kinked under her wheelchair. She was immediately brought back to the hospital and she was initially placed on nonrebreather facemask and a blood gas was done that showed a pH of 7.32 with a pCO2 of 62 and pO2 of 142. Subsequently, she was taken off the nonrebreather and the patient is currently on 5 L of oxygen by nasal cannula with a pulse ox of 94%. Chest x-ray was repeated and the patient has cardiomegaly and pulm vessel congestion consistent with CHF. Her blood work showed a WBC count of 6.6 with a hemoglobin 9.2 and a platelet count of 154. BUN 48 with a creatinine of 1.5 and a sodium levels at 132. Glucose level was at 288. Calcium is at 7.7. UA showed 8 WBCs. Based on that, the patient was readmitted to the hospital. She also had elevation in troponins and the levels were 0.2 and 0.4 and 0 point respectively x 3. Home medications have been resumed. She is on aspirin and Plavix. She was started on IV Lasix 40 mg every 12 hours patient was started on IV heparin. Cardiology was consulted. She remains on Aldactone. She remains on metoprolol 50 mg p.o. twice a day. Patient was evaluated today on 07/28/2024, patient is on3 L nasal cannula, O2 sats 97%, patient is steadily improving, breathing easier, remains on IV Lasix and IV heparin. CBC is relatively normal PTT is 49.3 basic metabolic profile is normal BUN is 40 creatinine 1.43 troponin is a bit elevated BNP level is 9620, viral screening is negative Patient was seen today on 07/29/2024, continues to improve, doing better, b reathing easier, on 2 L with O2 sat of 93%, patient does not seem to be in any distress, she seems to be quite comfortable. As [id number] she is rarely using her oxygen. WBC count is 8.5 hemoglobin 9.1 electrolytes are normal BUN is 38 creatinine 1.45 bicarb is 37 Objective - Vital Signs Vital signs: Vital Signs Temp 98.2 F 07/29/24 11:32 Pulse 64 07/29/24 11:32 Resp 18 07/29/24 11:32 BP 99/61 07/29/24 11:32 Pulse Ox 93 L 07/29/24 11:32 FiO2 Intake & Output 07/28/24 07/29/24 07/29/24 18:59 06:59 18:59 Intake Total 246 138 Output Total 500 Balance 246 -500 138 Weight 89 kg Intake: IV 10 20 Invasive Line 1 10 10 Invasive Line 2 10 Oral 236 118 Output: Urine 500 Other: Voiding Method Indwelling Catheter Indwelling Catheter Indwelling Catheter # Voids 3 - Exam Physical exam revealed 69-year-old female in no distress, on 2 L nasal cannula O2 sat is 97% Head: Atraumatic normocephalic HEENT: PERRLA, EOMI, nonicteric, no neck masses no JVD, no stridor Cardiac: Distant S1-S2, no S3 gallop, no murmur Lungs: Crackles at the bases no rhonchi no wheezes Abdomen: Soft nontender no MAG no rebound no guarding Extremities 1+ bipedal edema Skin: No rashes Neurologic exam profoundly weak otherwise no gross focal deficit. Psychiatric: Normal mood affect and normal mental status examination - Labs CBC & Chem 7: 07/29/24 05:58 07/29/24 05:58 Labs: Abnormal Lab Results - Last 24 Hours (Table) 07/28/24 07/28/24 07/28/24 Range/Units 12:16 16:44 20:01 RBC (3.80-5.40) m/uL Hgb (11.4-16.0) gm/dL Hct (34.0-46.0) % MCV (80.0-100.0) fL RDW (11.5-15.5) % APTT 49.3 H (22.0-30.0) sec Sodium (137-145) mmol/L Chloride (98-107) mmol/L Carbon Dioxide (22-30) mmol/L BUN (7-17) mg/dL Creatinine (0.52-1.04) mg/dL Glucose (74-99) mg/dL POC Glucose (mg/dL) 166 H 171 H (70-110) mg/dL Calcium (8.4-10.2) mg/dL Alkaline Phosphatase (38-126) U/L Total Protein (6.3-8.2) g/dL Albumin (3.5-5.0) g/dL 07/29/24 07/29/24 07/29/24 Range/Units 01:59 05:58 05:58 RBC 2.90 L (3.80-5.40) m/uL Hgb 9.1 L (11.4-16.0) gm/dL Hct 29.5 L (34.0-46.0) % MCV 101.7 H (80.0-100.0) fL RDW 16.5 H (11.5-15.5) % APTT (22.0-30.0) sec Sodium 131 L (137-145) mmol/L Chloride 93 L (98-107) mmol/L Carbon Dioxide 37 H (22-30) mmol/L BUN 38 H (7-17) mg/dL Creatinine 1.45 H (0.52-1.04) mg/dL Glucose 171 H (74-99) mg/dL POC Glucose (mg/dL) 161 H (70-110) mg/dL Calcium 7.5 L (8.4-10.2) mg/dL Alkaline Phosphatase 164 H (38-126) U/L Total Protein 6.2 L (6.3-8.2) g/dL Albumin 3.1 L (3.5-5.0) g/dL 24 07/29/24 Range/Units 06:09 11:42 RBC (3.80-5.40) m/uL Hgb (11.4-16.0) gm/dL Hct (34.0-46.0) % MCV (80.0-100.0) fL RDW (11.5-15.5) % APTT (22.0-30.0) sec Sodium (137-145) mmol/L Chloride (98-107) mmol/L Carbon Dioxide (22-30) mmol/L BUN (7-17) mg/dL Creatinine (0.52-1.04) mg/dL Glucose (74-99) mg/dL POC Glucose (mg/dL) 195 H 127 H (70-110) mg/dL Calcium (8.4-10.2) mg/dL Alkaline Phosphatase (38-126) U/L Total Protein (6.3-8.2) g/dL Albumin (3.5-5.0) g/dL Microbiology - Last 24 Hours (Table) 07/27/24 17:30 Urine Culture - Preliminary Urine,Voided Group D Enterococcus Assessment and Plan Assessment: Impression: Acute hypoxemic, and hypercapnic respiratory failure, multifactorial. But mostly secondary to severe LV dysfunction and congestive heart failure Acute on chronic systolic heart failure with impaired ejection fraction of 20 to 25% Acute kidney injury, likely secondary to cardiorenal factors, creatinine remained stable relative to her discharge values Small left-sided pleural effusion Non-ST elevation myocardial infarction, S/P PCI and stenting of her LAD, on 07/17/2024, currently on a combination of aspirin and Plavix. The patient is also on metoprolol and high-dose statins. Coronary artery disease with previous stent placement. The patient also has previous history of myocardial infarction.. The patient has an abnormal troponin and the patient is currently on IV heparin. Hypertension. Maintained on losartan for blood pressure control. Hyperlipidemia. 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 Diabetes mellitus, type II.The patient is on Levemir insulin 60 units twice a d ay Former smoker Recommendations: Continue oxygen and titrate accordingly Continue Lasix and Aldactone Continue aspirin Plavix Continue losartan metoprolol Continue Lipitor Continue insulin Levemir and sliding scale insulin Continue to monitor renal profile LifeVest as before upon discharge Prognosis extremely poor and guarded Continue to follow Time with Patient: Less than 30
[2024-07-29] MEDS: METOPROLOL SUCCINATE (ER) 50 MG TAB.ER.24H PO SCH (12:43)
--- NOTE | 2024-07-29 14:09 | P.PN ---
Subjective Progress Note Date: 07/29/24 patient is 69-year-old lady with past medical history significant for coronary artery disease with previous stenting, hypertension, hyperlipidemia, diabetes, and obesity who was brought to the ER for altered mental status. Patient only recently discharged on 07/25 after being treated for CHF and underwent a cardiac cath with PCI to LAD. Patient was brought back to the hospital as daughter found patient to be less responsive. Patient daughter stated that when she went to check on her mom she was very lethargic. Patient was discharged on liters of oxygen but was not using her oxygen properly as the tubing was kinked on her wheelchair. is unable to provide take care of her. No complaint of chest pain. Denies any fever or chills. EMS was called and found her to be saturating in the 70s. Because of patient being lethargic and less arousable, patient was brought to the ER Initial lab work done in the ER showed showed WBC 8.2, hemoglobin 9.8, platelet count 179, sodium 131, potassium 5.3, BUN 43, creatinine 1.48, glucose 421, troponin 0.270 proBNP 9620 influenza A not detected Influenza B not detected RSV not detected COVID-19 not detected EKG done in the ER showed heart rate of 83, no ST segment elevation or depression seen, no T-wave inversions seen. Chest x-ray done in the ER showed cardiomegaly and mild pulmonary vascular congestion. Patient admitted to internal medicine service 07/28. Patient seen and examined. WBC 9, hemoglobin 9.8, sodium 130, potassium 4.1, BUN 40, creatinine 1.43. Patient states she feels slightly better compared to yesterday, breathing has improved. 07/29. Patient seen and examined. Blood work this morning showed WBC 8.5, hemoglobin 9.1, platelet count 182 sodium 131, potassium 4.5, BUN 30 1.45. Echo limited review done showed LVEF of 3025%, moderately reduced global left ventricular systolic function with mild and apical wall hypokinesis. UA was positive for infection REVIEW OF SYSTEMS: CONSTITUTIONAL: No fever, no malaise,. CARDIOVASCULAR: No chest pain, no palpitations, no syncope. PULMONARY: As mentioned above GASTROINTESTINAL: No diarrhea, no nausea, no vomiting, no abdominal pain. NEUROLOGICAL: No headaches, no weakness, PHYSICAL EXAMINATION: GENERAL: The patient is alert and oriented x3, ill looking HEENT: Pupils are round and equally reacting to light. EOMI. No scleral icterus. No conjunctival pallor. Normocephalic, atraumatic. No pharyngeal erythema. No thyromegaly. CARDIOVASCULAR: S1 and S2 present. No murmurs, rubs, or gallops. PULMONARY: Diminished breath sounds at the bases bilaterally, no wheezing or crackles. ABDOMEN: Soft, nontender, nondistended, normoactive bowel sounds. No palpable or ganomegaly. MUSCULOSKELETAL: No joint swelling or deformity. EXTREMITIES: No cyanosis, clubbing, or pedal edema. NEUROLOGICAL: Gross neurological examination did not reveal any focal deficits. SKIN: No rashes. Assessment and plan Acute on chronic hypoxic respiratory failure Elevated troponin, recent cardiac cath and PCI to LAD on 07/17 acute on chronic congestive heart failure systolic dysfunction ejection fraction 20 to 25% UTI Coronary artery disease with previous stenting of the LAD Hyponatremia Hyperkalemia Hyperglycemia Known moderate disease of the RCA Hypertension Hyperlipidemia Diabetes with hyperglycemia Obesity Medication noncompliance Monitor vital signs Monitor CBC Monitor CMP Continue telemetry monitoring Trend troponins Serial ABGs Continue oxygen supplementation Continue aggressive bronchopulmonary hygiene Echo limited review done showed LVEF of 3025%, moderately reduced global left ventricular systolic function with mild and apical wall hypokinesis Strict I's and O's, daily weights, IV Lasix switched to Bumex 1 mg daily Ordered blood glucose monitoring, continue home regimen of Lantus Start IV Rocephin Cardiology following Pulmonary following PT and OT consulted Labs and medication were reviewed.. Continue same treatment. Continue with symptomatic treatment. Resume home medication. Monitor labs and vitals. DVT and GI prophylaxis. Further recommendations as per clinical course of the patient Dictation was produced using [employer] dictation software. please excuse any grammatical, word or spelling errors. Objective - Vital Signs Vital signs: Vital Signs Temp 98.1 F 07/29/24 08:57 Pulse 62 07/29/24 08:57 Resp 18 07/29/24 08:57 BP 93/55 07/29/24 08:57 Pulse Ox 92 L 07/29/24 08:57 FiO2 Intake & Output 07/28/24 07/29/24 07/29/24 18:59 06:59 18:59 Intake Total 246 138 Output Total 500 Balance 246 -500 138 Weight 89 kg Intake: IV 10 20 Invasive Line 1 10 10 Invasive Line 2 10 Oral 236 118 Output: Urine 500 Other: Voiding Method Indwelling Catheter Indwelling Catheter Indwelling Catheter # Voids 3 - Labs CBC & Chem 7: 07/29/24 05:58 07/29/24 05:58 Labs: Abnormal Lab Results - Last 24 Hours (Table) 07/28/24 07/28/24 07/28/24 Range/Units 11:34 12:16 16:44 RBC (3.80-5.40) m/uL Hgb (11.4-16.0) gm/dL Hct (34.0-46.0) % MCV (80.0-100.0) fL RDW (11.5-15.5) % APTT 49.3 H (22.0-30.0) sec Sodium (137-145) mmol/L Chloride (98-107) mmol/L Carbon Dioxide (22-30) mmol/L BUN (7-17) mg/dL Creatinine (0.52-1.04) mg/dL Glucose (74-99) mg/dL POC Glucose (mg/dL) 124 H 166 H (70-110) mg/dL Calcium (8.4-10.2) mg/dL Alkaline Phosphatase (38-126) U/L Total Protein (6.3-8.2) g/dL Albumin (3.5-5.0) g/dL 07/28/24 07/29/24 07/29/24 Range/Units 20:01 01:59 05:58 RBC 2.90 L (3.80-5.40) m/uL Hgb 9.1 L (11.4-16.0) gm/dL Hct 29.5 L (34.0-46.0) % MCV 101.7 H (80.0-100.0) fL RDW 16.5 H (11.5-15.5) % APTT (22.0-30.0) sec Sodium (137-145) mmol/L Chloride (98-107) mmol/L Carbon Dioxide (22-30) mmol/L BUN (7-17) mg/dL Creatinine (0.52-1.04) mg/dL Glucose (74-99) mg/dL POC Glucose (mg/dL) 171 H 161 H (70-110) mg/dL Calcium (8.4-10.2) mg/dL Alkaline Phosphatase (38-126) U/L Total Protein (6.3-8.2) g/dL Albumin (3.5-5.0) g/dL 07/29/24 07/29/24 Range/Units 05:58 06:09 RBC (3.80-5.40) m/uL Hgb (11.4-16.0) gm/dL Hct (34.0-46.0) % MCV (80.0-100.0) fL RDW (11.5-15.5) % APTT (22.0-30.0) sec Sodium 131 L (137-145) mmol/L Chloride 93 L (98-107) mmol/L Carbon Dioxide 37 H (22-30) mmol/L BUN 38 H (7-17) mg/dL Creatinine 1.45 H (0.52-1.04) mg/dL Glucose 171 H (74-99) mg/dL POC Glucose (mg/dL) 195 H (70-110) mg/dL Calcium 7.5 L (8.4-10.2) mg/dL Alkaline Phosphatase 164 H (38-126) U/L Total Protein 6.2 L (6.3-8.2) g/dL Albumin 3.1 L (3.5-5.0) g/dL Microbiology - Last 24 Hours (Table) 07/27/24 17:30 Urine Culture - Preliminary Urine,Voided Group D Enterococcus
--- NOTE | 2024-07-29 15:44 | P.PN ---
Subjective Progress Note Date: 07/29/24 HISTORY OF PRESENTING ILLNESS 69-year-old with morbid obesity, recent PCI to mid LAD which was a in-stent stenosis disease, hypertension, dyslipidemia, type 2 diabetes which is poorly controlled, concerns of noncompliance. She presented to the hospital because of being less responsive, mildly confused and lethargic along with increased shortness of breath. She was noticed to be hypoxic with oxygen saturation in 70s on admission. Initial blood work showed hemoglobin 9.8, macrocytic anemia, potassium 5.3, sodium 31, BUN 43, creatinine 1.48, glucose 421, troponin 0.27, 0.4, 0.4, NT- proBNP 9600 COVID flu and RSV were negative. CXR shows pulmonary congestion EKG shows sinus rhythm heart rate 83, nonspecific ST changes unchanged from prior exam. Progress note 07/29/2022 Patient is seen and examined at bedside this a.m. BP is slightly low 99/61, heart rate 64 bpm. Hb 9.1, BUN 38, creatinine 1.45. Creatinine stable. PHYSICAL EXAMINATION Vital signs reviewed. Head: Normocephalic. Eyes: Sclerae nonicteric. Neck: Brisk carotid upstroke, mildly elevated JVP Lungs: Mild crackles audible, poor inspiratory effort but diminished breath sounds in bilateral bases Heart: Regular rate and rhythm, S1-S2 audible, no significant murmurs appreciated Abdomen: Soft nontender, positive bowel sounds. Extremities: 1+ pitting edema in bilateral lower extremity Neuro: Awake but not oriented. Detailed neuro exam was not performed. LifeVest in place ASSESSMENT NSTEMI, likely type II Acute hypoxic respiratory failure Acute HFrEF exacerbation Metabolic encephalopathy Ischemic cardiomyopathy with a EF of 20 to 25% --> EF 35% CAD status post PCI to LAD 07/17/2024, residual 80% disease in LCx, difficult to intervene because of acute angle origin. 60-70% mid RCA disease Type 2 diabetes with hyperglycemia Morbid obesity Medication noncompliance PLAN Continue aspirin, Plavix, Lipitor 80 mg Continue Farxiga 10 mg daily, Bumex 1 mg daily, losartan 12.5 mg daily, Aldactone 25 mg daily Metoprolol changed to metoprolol succinate 50 mg daily. Reduce the dose because of low blood pressure and heart rate. Recommend outpatient follow-up with Dr. Babcock and recommend staged PCI of mid RCA. Maintain LifeVest If blood pressure and heart rate are stable, consider signing off tomorrow. Objective - Vital Signs Vital signs: Vital Signs Temp 98.2 F 07/29/24 11:32 Pulse 64 07/29/24 11:32 Resp 18 07/29/24 11:32 BP 99/61 07/29/24 11:32 Pulse Ox 93 L 07/29/24 11:32 FiO2 Intake & Output 07/28/24 07/29/24 07/29/24 18:59 06:59 18:59 Intake Total 246 256 Output Total 500 Balance 246 -500 256 Weight 89 kg Intake: IV 10 20 Invasive Line 1 10 10 Invasive Line 2 10 Oral 236 236 Output: Urine 500 Other: Voiding Method Indwelling Catheter Indwelling Catheter Indwelling Catheter # Voids 3 - Labs CBC & Chem 7: 07/29/24 05:58 07/29/24 05:58 Labs: Abnormal Lab Results - Last 24 Hours (Table) 07/28/24 07/28/24 07/29/24 Range/Units 16:44 20:01 01:59 RBC (3.80-5.40) m/uL Hgb (11.4-16.0) gm/dL Hct (34.0-46.0) % MCV (80.0-100.0) fL RDW (11.5-15.5) % Sodium (137-145) mmol/L Chloride (98-107) mmol/L Carbon Dioxide (22-30) mmol/L BUN (7-17) mg/dL Creatinine (0.52-1.04) mg/dL Glucose (74-99) mg/dL POC Glucose (mg/dL) 166 H 171 H 161 H (70-110) mg/dL Calcium (8.4-10.2) mg/dL Alkaline Phosphatase (38-126) U/L Total Protein (6.3-8.2) g/dL Albumin (3.5-5.0) g/dL 07/29/24 07/29/24 07/29/24 Range/Units 05:58 05:58 06:09 RBC 2.90 L (3.80-5.40) m/uL Hgb 9.1 L (11.4-16.0) gm/dL Hct 29.5 L (34.0-46.0) % MCV 101.7 H (80.0-100.0) fL RDW 16.5 H (11.5-15.5) % Sodium 131 L (137-145) mmol/L Chloride 93 L (98-107) mmol/L Carbon Dioxide 37 H (22-30) mmol/L BUN 38 H (7-17) mg/dL Creatinine 1.45 H (0.52-1.04) mg/dL Glucose 171 H (74-99) mg/dL POC Glucose (mg/dL) 195 H (70-110) mg/dL Calcium 7.5 L (8.4-10.2) mg/dL Alkaline Phosphatase 164 H (38-126) U/L Total Protein 6.2 L (6.3-8.2) g/dL Albumin 3.1 L (3.5-5.0) g/dL 07/29/24 Range/Units 11:42 RBC (3.80-5.40) m/uL Hgb (11.4-16.0) gm/dL Hct (34.0-46.0) % MCV (80.0-100.0) fL RDW (11.5-15.5) % Sodium (137-145) mmol/L Chloride (98-107) mmol/L Carbon Dioxide (22-30) mmol/L BUN (7-17) mg/dL Creatinine (0.52-1.04) mg/dL Glucose (74-99) mg/dL POC Glucose (mg/dL) 127 H (70-110) mg/dL Calcium (8.4-10.2) mg/dL Alkaline Phosphatase (38-126) U/L Total Protein (6.3-8.2) g/dL Albumin (3.5-5.0) g/dL Microbiology - Last 24 Hours (Table) 07/27/24 17:30 Urine Culture - Preliminary Urine,Voided Group D Enterococcus
[2024-07-29 16:44] LABS: Glucose,Whole Blood 81 mg/dL (70-110)
[2024-07-29] MEDS: AMPICILLIN-SULBACTAM 3 GM in SODIUM CHLORIDE 0.9% 100 ML IVPB SCH (17:26)
[2024-07-29 20:12] LABS: Glucose,Whole Blood 99 mg/dL (70-110)
[2024-07-30 06:15] LABS: Glucose,Whole Blood 138 mg/dL (70-110)
[2024-07-30 08:03] VITALS: RESP 18
[2024-07-30] MEDS ORDERED: METOPROLOL SUCCINATE (ER) 50 MG TAB.ER.24H PO SCH (09:00)
[2024-07-30 09:04] LABS: Anisocytosis Slight; Basophils % (A) 0 %; Eosinophils # (A) 0.1 k/uL (0-0.7); Eosinophils % (A) 2 %; HCT 29.5 % (34.0-46.0); HGB 9.1 gm/dL (11.4-16.0); Hypochromasia Marked; Lymphocytes # (A) 1.4 k/uL (1.0-4.8); Lymphocytes % (A) 17 %; MCH 31.1 pg (25.0-35.0); MCHC 30.7 g/dL (31.0-37.0); MCV 101.4 fL (80.0-100.0); Macrocytosis Slight; Mean Platelet Volume 9.2; Monocytes # (A) 0.3 k/uL (0-1.0); Monocytes % (A) 4 %; Neutrophils # (A) 6.2 k/uL (1.3-7.7); Neutrophils % (A) 76 %; Platelet Count 185 k/uL (150-450); RBC 2.91 m/uL (3.80-5.40); RDW 16.6 % (11.5-15.5); WBC 8.2 k/uL (3.8-10.6)
[2024-07-30 09:17] LABS: ALT 13 U/L (4-34); AST 23 U/L (14-36); African American GFR (CKD) 53 (>60 ml/min/1.73 sqM); Alkaline Phosphatase 163 U/L (38-126); Anion Gap 4 mmol/L; Blood Urea Nitrogen 37 mg/dL (7-17); Calcium 7.9 mg/dL (8.4-10.2); Carbon Dioxide 34 mmol/L (22-30); Chloride 96 mmol/L (98-107); Glucose 184 mg/dL (74-99); Non-African American GFR(CKD) 46 (>60 ml/min/1.73 sqM); Potassium 4.2 mmol/L (3.5-5.1); Sodium 134 mmol/L (137-145); Total Bilirubin 0.6 mg/dL (0.2-1.3); Total Protein 6.2 g/dL (6.3-8.2)
--- NOTE | 2024-07-30 09:28 | P.CONS ---
History of Present Illness - Reason for Consult Consult date: 07/29/24 Enterococcus UTI Requesting physician: Momo Bautista - Chief Complaint Weakness mental status changes x few days - History of Present Illness Patient is a 69-year-old female with a past medical history significant for diabetes mellitus hypertension hyperlipidemia reflux has been brought to the hospital 3 days ago for evaluation of mental status change and decreased level of responsiveness, patient noticed to having increasing shortness of breath as well and the patient was noted to be hypoxic with O2 sat in 70% patient subsequently has been brought to the hospital on arrival to the patient did have a low-grade fever 100.2 F patient was not tachycardic or hyp otensive body hypoxic currently on 2 L current oxygen patient did have white count of 9.2 BUN and creatinine has been mildly elevated liver isms are normal patient did have positive UA with large leukocyte esterase more than 1-2 WBC influenza RSV COVID testing has been negative patient did have a chest x-ray cardiomegaly and mild pulmonary still congestion patient has been treated with Rocephin urine now showing Enterococcus that has prompted this consultation patient is currently complaining of feeling slightly better patient denies having any chest pain denies significant burning or frequency of urine however he did have some discomfort to the lower abdominal area Review of Systems Positive point and negatives has been mentioned in the HPI, complete review of systems was performed and all other systems are negative Past Medical History Past Medical History: Blood Disorder, Cancer, Diabetes Mellitus, Deep Vein Thrombosis (DVT), GERD/Reflux, Hyperlipidemia, Hypertension, Myocardial Infarction (OR), Neurologic Disorder, Osteoarthritis (OA), Pulmonary Embolus (PE), Thyroid Disorder Additional Past Medical History / Comment(s): Factor 5 leiden, DVT L leg, PE L lung, MIs x 5, palpitations, IDDM type II, neuropathy bilateral legs/feet, lymphedema L leg, charcot syndrome L foot, chronic low back pain, bilateral sciatica,hx bronchitis, anemia, hypothyroid, hx UTI, IBS, sinus problems, wors ening tremors, "stomach shivering inside" plans to f/u with pcp. skin cancer removal. hx of pneumonia long ago, pelvic fx Last Myocardial Infarction Date:: January 2020 History of Any Multi-Drug Resistant Organisms: VRE Year Discovered:: 08/24/23 MDRO Source:: Urine Past Surgical History: Appendectomy, Cholecystectomy, Heart Catheterization With Stent, Hernia Repair, Hysterectomy, Tonsillectomy Additional Past Surgical History / Comment(s): Bilateral salpingectomy, bilateral oophorectomy, abdominal hernia surgeries, L foot fracture, bilateral cataract removals, epidural injections with last on 01/20/20 lumbar, LAST PROCEDURE 04/19/21 Past Anesthesia/Blood Transfusion Reactions: No Reported Reaction Additional Past Anesthesia/Blood Transfusion Reaction / Comm: Pt has received blood in past without reaction. Date of Last Stent Placement:: January 2020 Past Psychological History: Anxiety, Depression, Panic Disorder Smoking Status: Never smoker Past Alcohol Use History: None Reported Past Drug Use History: None Reported - Past Family History Mother Family Medical History: COPD Additional Family Medical History / Comment(s): Mother was a smoker. Father Family Medical History: Cancer Additional Family Medical History / Comment(s): Lung cancer. Father was a smoker. Son(s) Family Medical History: Deep Vein Thrombosis (DVT) Medications and Allergies Home Medications Medication Instructions Recorded Confirmed Type Clopidogrel [Plavix] 75 mg PO DAILY 07/07/19 07/26/24 History traZODone HCL [Desyrel] 200 mg PO HS 07/07/19 07/26/24 History Insulin Glargine,Hum.rec.anlog 60 units SQ BID 06/09/21 07/26/24 History [Lantus Solostar Pen] Levothyroxine Sodium [Synthroid] 300 mcg PO DAILY 08/30/21 07/26/24 History Insulin Lispro [humaLOG Kwikpen] See Protocol SQ AC-TID 09/21/23 07/26/24 History DULoxetine HCL [Cymbalta] 60 mg PO BID 07/15/24 07/26/24 History oxyCODONE HCL [oxyCODONE HCL (IR)] 10 mg PO TID PRN 07/15/24 07/26/24 History ALPRAZolam [Xanax] 2 mg PO TID PRN #0 07/25/24 07/26/24 Rx Aspirin 81 mg PO DAILY #30 tab 07/25/24 07/26/24 Rx Atorvastatin [Lipitor] 80 mg PO HS #30 tab 07/25/24 07/26/24 Rx Cyanocobalamin [Vitamin B-12] 1,000 mcg PO DAILY #30 tab 07/25/24 07/26/24 Rx Furosemide [Lasix] 40 mg PO DAILY #30 tab 07/25/24 07/26/24 Rx Losartan [Cozaar] 12.5 mg PO DAILY #15 tab 07/25/24 07/26/24 Rx Metoprolol Tartrate [Lopressor] 50 mg PO BID #60 tab 07/25/24 07/26/24 Rx Nitroglycerin Sl Tabs [Nitrostat] 0.4 mg SUBLINGUAL Q5M PRN #30 tab 07/25/24 07/26/24 Rx Spironolactone [Aldactone] 25 mg PO DAILY #30 tab 07/25/24 07/26/24 Rx Albuterol Inhaler [Ventolin Hfa 2 puff INHALATION RT-Q6H PRN 07/26/24 07/26/24 History Inhaler] Allergies Allergy/AdvReac Type Severity Reaction Status Date / Time Iodinated Contrast Media Allergy Rash/Hives Verified 07/26/24 15:05 Iodine and Iodide Containing Allergy Rash/Hives Verified 07/26/24 15:05 Produc liraglutide [From Saxenda] AdvReac Unknown Nausea & Verified 07/26/24 15:05 Vomiting NSAIDS (Non-Steroidal AdvReac Unknown Nausea & Verified 07/26/24 15:05 Anti-Inflamma Vomiting aspirin AdvReac Nausea & Verified 07/26/24 15:05 Vomiting with high doses azithromycin AdvReac Vomiting Verified 07/26/24 15:05 naproxen [From Naprosyn] AdvReac Nausea & Verified 07/26/24 15:05 Vomiting Physical Exam Vitals: Vital Signs Temp Pulse Resp BP BP Pulse Ox 07/29/24 11:32 98.2 F 64 18 99/61 93 L 07/29/24 08:57 98.1 F 62 18 93/55 92 L 07/29/24 06:59 97/65 07/29/24 03:56 98.3 F 66 18 84/51 94 L 07/28/24 23:25 98.1 F 67 18 90/56 94 L 07/28/24 20:09 97.8 F 64 18 97/64 94 L 07/28/24 17:01 66 18 96/62 94 L 07/28/24 14:19 97/63 07/28/24 12:22 98.3 F 66 18 118/65 97 Intake and Output 1207/29/24 07/29/24 22:59 06:59 14:59 Intake Total 138 Output Total 500 Balance -500 138 Intake: IV 20 Invasive Line 1 10 Invasive Line 2 10 Oral 118 Output: Urine 500 Other: Voiding Method Indwelling Catheter Indwelling Catheter Indwelling Catheter GENERAL DESCRIPTION: Elderly female lying in bed, no distress. No tachypnea or accessory muscle of respiration use. HEENT: Shows Pallor , no scleral icterus. Oral mucous membrane is dry. NECK: Trachea central, no thyromegaly. LUNGS: Unlabored breathing. Decreased breath sound the base HEART: S1, S2, regular rate and rhythm. No loud murmur ABDOMEN: Soft, suprapubic tenderness EXTREMITIES: Swelling in the legs no redness SKIN: No rash, no masses palpable. NEUROLOGICAL: The patient is awake, alert, mood and affect normal. Results CBC & Chem 7: 07/30/24 08:28 07/30/24 08:28 Labs: Abnormal Lab Results - Last 24 Hours (Table) 07/28/24 07/28/24 07/28/24 Range/Units 12:16 16:44 20:01 RBC (3.80-5.40) m/uL Hgb (11.4-16.0) gm/dL Hct (34.0-46.0) % MCV (80.0-100.0) fL RDW (11.5-15.5) % APTT 49.3 H (22.0-30.0) sec Sodium (137-145) mmol/L Chloride (98-107) mmol/L Carbon Dioxide (22-30) mmol/L BUN (7-17) mg/dL Creatinine (0.52-1.04) mg/dL Glucose (74-99) mg/dL POC Glucose (mg/dL) 166 H 171 H (70-110) mg/dL Calcium (8.4-10.2) mg/dL Alkaline Phosphatase (38-126) U/L Total Protein (6.3-8.2) g/dL Albumin (3.5-5.0) g/dL 07/29/24 07/29/24 07/29/24 Range/Units 01:59 05:58 05:58 RBC 2.90 L (3.80-5.40) m/uL Hgb 9.1 L (11.4-16.0) gm/dL Hct 29.5 L (34.0-46.0) % MCV 101.7 H (80.0-100.0) fL RDW 16.5 H (11.5-15.5) % APTT (22.0-30.0) sec Sodium 131 L (137-145) mmol/L Chloride 93 L (98-107) mmol/L Carbon Dioxide 37 H (22-30) mmol/L BUN 38 H (7-17) mg/dL Creatinine 1.45 H (0.52-1.04) mg/dL Glucose 171 H (74-99) mg/dL POC Glucose (mg/dL) 161 H (70-110) mg/dL Calcium 7.5 L (8.4-10.2) mg/dL Alkaline Phosphatase 164 H (38-126) U/L Total Protein 6.2 L (6.3-8.2) g/dL Albumin 3.1 L (3.5-5.0) g/dL 07/29/24 07/29/24 Range/Units 06:09 11:42 RBC (3.80-5.40) m/uL Hgb (11.4-16.0) gm/dL Hct (34.0-46.0) % MCV (80.0-100.0) fL RDW (11.5-15.5) % APTT (22.0-30.0) sec Sodium (137-145) mmol/L Chloride (98-107) mmol/L Carbon Dioxide (22-30) mmol/L BUN (7-17) mg/dL Creatinine (0.52-1.04) mg/dL Glucose (74-99) mg/dL POC Glucose (mg/dL) 195 H 127 H (70-110) mg/dL Calcium (8.4-10.2) mg/dL Alkaline Phosphatase (38-126) U/L Total Protein (6.3-8.2) g/dL Albumin (3.5-5.0) g/dL Microbiology - Last 24 Hours (Table) 07/27/24 17:30 Urine Culture - Preliminary Urine,Voided Group D Enterococcus Assessment and Plan (1) UTI (urinary tract infection) due to Enterococcus Current Visit: Yes Status: Acute Code(s): N39.0 - URINARY TRACT INFECTION, SITE NOT SPECIFIED; B95.2 - ENTEROCOCCUS THE CAUSE OF DISEASES CLASSIFIED ELSEWHERE SNOMED Code(s): 643679686325850 Plan: 1patient presented to hospital mental status changes weakness patient did have a low-grade fever did have a significantly positive UA and the patient also have a suprapubic tenderness concerning for a symptomatic UTI with urine culture currently growing Enterococcus faecalis. 2we will discontinue Rocephin. 3start the patient on Unasyn 3 g every 8 hour while waiting for sensitivity to finalize. We will follow on clinical condition and cultures to further adjust medication if needed Thank you for this consultation we will follow the patient along with you Dictation was produced using [employer] dictation software. please excuse any grammatical, word or spelling errors. Time with Patient: Greater than 30
--- NOTE | 2024-07-30 11:10 | PN ---
PROGRESS NOTE SUBJECTIVE: This is a 69-year-old lady with a history of ischemic cardiomyopathy with severe LV systolic dysfunction, CAD, status post angioplasty, hypertension, dyslipidemia, diabetes and morbid obesity who is awaiting placement into a [facility]. The patient had PCI of the LAD on July 17, 2024. Her ejection fraction was around 20% to 25%. This has improved since. The patient this morning denies any chest pain. Her blood pressures are soft at 89/55, but that is how they have been. MEDICATIONS: She is on the appropriate medications includin. Aspirin. 2. Lipitor. 3. Bumex. 4. Farxiga. 5. Cozaar. 6. Toprol. 7. Aldactone. PHYSICAL EXAMINATION: VITAL SIGNS: Heart rate is 70 beats per minute, blood pressure is 89/55, respiratory rate is 18, O2 saturation is 92%. NECK: There is no jugular venous distention. CHEST: Reveals good air entry bilaterally. HEART: Reveals first and second heart sounds. No gallop. ABDOMEN: Soft. EXTREMITIES: Reveal bilateral pitting edema Labs show a hemoglobin of 9.1, platelet count is 185, potassium is 4.2, BUN is 37, creatinine is 1.1. ASSESSMENT: 1. Acute exacerbation of chronic systolic heart failure. 2. Coronary artery disease, status post angioplasty. 3. Type 2 diabetes. PLAN: The patient will continue current medical therapy. MMODL / IJN: [id number] /
[2024-07-30 11:12] LABS: Glucose,Whole Blood 177 mg/dL (70-110)
--- NOTE | 2024-07-30 11:29 | P.PN ---
Subjective Progress Note Date: 07/30/24 Principal diagnosis: Acute hypoxic respiratory failure secondary to acute systolic congestive heart failure On 07/27/2024, the patient is being seen in consultation. The patient was seen in consult during her last admission and the patient was discharged home yesterday to be readmitted back to the hospital because of worsening shortness of breath diminished level of consciousness. The patient was discharged home with oxygen and she also had a decompensated heart failure post WA post angioplasty and stenting and the patient was given a LifeVest. While at home, the patient decompensated. She was unable to take care of herself. Furthermore, she was noted to be desaturating with a pulse ox as low as in the 70s and apparently her oxygen tube was kinked under her wheelchair. She was immediately brought back to the hospital and she was initially placed on nonrebreather facemask and a blood gas was done that showed a pH of 7.32 with a pCO2 of 62 and pO2 of 142. Subsequently, she was taken off the nonrebreather and the patient is currently on 5 L of oxygen by nasal cannula with a pulse ox of 94%. Chest x-ray was repeated and the patient has cardiomegaly and pulm vessel congestion consistent with CHF. Her blood work showed a WBC count of 6.6 with a hemoglobin 9.2 and a platelet count of 154. BUN 48 with a creatinine of 1.5 and a sodium levels at 132. Glucose level was at 288. Calcium is at 7.7. UA showed 8 WBCs. Based on that, the patient was readmitted to the hospital. She also had elevation in troponins and the levels were 0.2 and 0.4 and 0 point respectively x 3. Home medications have been resumed. She is on aspirin and Plavix. She was started on IV Lasix 40 mg every 12 hours patient was started on IV heparin. Cardiology was consulted. She remains on Aldactone. She remains on metoprolol 50 mg p.o. twice a day. Patient was evaluated today on 07/28/2024, patient is on3 L nasal cannula, O2 sats 97%, patient is steadily improving, breathing easier, remains on IV Lasix and IV heparin. CBC is relatively normal PTT is 49.3 basic metabolic profile is normal BUN is 40 creatinine 1.43 troponin is a bit elevated BNP level is 9620, viral screening is negative Patient was seen today on 07/29/2024, continues to improve, doing better, b reathing easier, on 2 L with O2 sat of 93%, patient does not seem to be in any distress, she seems to be quite comfortable. As [id number] she is rarely using her oxygen. WBC count is 8.5 hemoglobin 9.1 electrolytes are normal BUN is 38 creatinine 1.45 bicarb is 37 Patient was seen today on 07/30/2024, patient is doing great, relatively asymptomatic, does not seem to be in any distress, remains on 2 L nasal cannula with O2 saturation of 92% hemodynamically stable with mean arterial pressure of 66,WBC count is 8.2 hemoglobin 9.1, basic metabolic profile is normal, BUN is 37 creatinine 1.19 chest x-ray from yesterday continue to show evidence of pulmonary edema, remains on Aldactone patient needs more diuretics based on her chest x-ray findings hence we will increase her Bumex to 1 mg p.o. twice daily Objective - Vital Signs Vital signs: Vital Signs Temp 97.7 F 07/30/24 07:44 Pulse 70 07/30/24 07:44 Resp 18 07/30/24 07:44 BP 89/55 07/30/24 07:44 Pulse Ox 92 L 07/30/24 08:36 FiO2 Intake & Output 07/29/24 07/30/24 07/30/24 18:59 06:59 18:59 Intake Total 266 0 Output Total 900 Balance -634 0 Intake: IV 30 Invasive Line 1 10 Invasive Line 2 10 Invasive Line 3 10 Oral 236 0 Output: Urine 900 Other: Voiding Method Indwelling Catheter Indwelling Catheter - Exam Physical exam revealed 69-year-old female in no distress, on 2 L nasal cannula O2 sat is 97% Head: Atraumatic normocephalic HEENT: PERRLA, EOMI, nonicteric, no neck masses no JVD, no stridor Cardiac: Distant S1-S2, no S3 gallop, no murmur Lungs: Crackles at the bases persist. Abdomen: Soft nontender no MAG no rebound no guarding Extremities 1+ bipedal edema Skin: No rashes Neurologic exam profoundly weak otherwise no gross focal deficit. Psychiatric: Normal mood affect and normal mental status examination - Labs CBC & Chem 7: 07/30/24 08:28 07/30/24 08:28 Labs: Abnormal Lab Results - Last 24 Hours (Table) 07/29/24 07/30/24 07/30/24 Range/Units 11:42 06:14 08:28 RBC (3.80-5.40) m/uL Hgb (11.4-16.0) gm/dL Hct (34.0-46.0) % MCV (80.0-100.0) fL MCHC (31.0-37.0) g/dL RDW (11.5-15.5) % Sodium 134 L (137-145) mmol/L Chloride 96 L (98-107) mmol/L Carbon Dioxide 34 H (22-30) mmol/L BUN 37 H (7-17) mg/dL Creatinine 1.19 H (0.52-1.04) mg/dL Glucose 184 H (74-99) mg/dL POC Glucose (mg/dL) 127 H 138 H (70-110) mg/dL Calcium 7.9 L (8.4-10.2) mg/dL Alkaline Phosphatase 163 H (38-126) U/L Total Protein 6.2 L (6.3-8.2) g/dL Albumin 3.0 L (3.5-5.0) g/dL 07/30/24 07/30/24 Range/Units 08:28 11:10 RBC 2.91 L (3.80-5.40) m/uL Hgb 9.1 L (11.4-16.0) gm/dL Hct 29.5 L (34.0-46.0) % MCV 101.4 H (80.0-100.0) fL MCHC 30.7 L (31.0-37.0) g/dL RDW 16.6 H (11.5-15.5) % Sodium (137-145) mmol/L Chloride (98-107) mmol/L Carbon Dioxide (22-30) mmol/L BUN (7-17) mg/dL Creatinine (0.52-1.04) mg/dL Glucose (74-99) mg/dL POC Glucose (mg/dL) 177 H (70-110) mg/dL Calcium (8.4-10.2) mg/dL Alkaline Phosphatase (38-126) U/L Total Protein (6.3-8.2) g/dL Albumin (3.5-5.0) g/dL Microbiology - Last 24 Hours (Table) 07/27/24 17:30 Urine Culture - Final Urine,Voided Enterococcus faecalis Assessment and Plan Assessment: Impression: Acute hypoxemic, and hypercapnic respiratory failure, multifactorial. But mostly secondary to severe LV dysfunction and congestive heart failure Acute on chronic systolic heart failure with impaired ejection fraction of 20 to 25% Acute kidney injury, likely secondary to cardiorenal factors, creatinine re mained stable relative to her discharge values Small left-sided pleural effusion Non-ST elevation myocardial infarction, S/P PCI and stenting of her LAD, on 07/17/2024, currently on a combination of aspirin and Plavix. The patient is also on metoprolol and high-dose statins. Coronary artery disease with previous stent placement. The patient also has previous history of myocardial infarction.. The patient has an abnormal troponin and the patient is currently on IV heparin. Hypertension. Maintained on losartan for blood pressure control. Hyperlipidemia. 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 Diabetes mellitus, type II.The patient is on Levemir insulin 60 units twice a day Former smoker Recommendations: Chest x-ray from yesterday was reviewed continues to show evidence of pulmonary edema Continue oxygen and titrate accordingly continue Bumex however increase the dose to 1 mg p.o. twice daily Continue Aldactone Continue aspirin Plavix Continue losartan metoprolol Continue Lipitor Continue insulin Levemir and sliding scale insulin Continue to monitor renal profile Prognosis extremely poor and guarded Continue to follow Time with Patient: Less than 30
[2024-07-30] MEDS: BUMETANIDE 1 MG TAB PO SCH (16:15)
--- NOTE | 2024-07-30 16:18 | P.PN ---
Subjective Progress Note Date: 07/30/24 patient is 69-year-old lady with past medical history significant for coronary artery disease with previous stenting, hypertension, hyperlipidemia, diabetes, and obesity who was brought to the ER for altered mental status. Patient only recently discharged on 07/25 after being treated for CHF and underwent a cardiac cath with PCI to LAD. Patient was brought back to the hospital as daughter found patient to be less responsive. Patient daughter stated that when she went to check on her mom she was very lethargic. Patient was discharged on liters of oxygen but was not using her oxygen properly as the tubing was kinked on her wheelchair. is unable to provide take care of her. No complaint of chest pain. Denies any fever or chills. EMS was called and found her to be saturating in the 70s. Because of patient being lethargic and less arousable, patient was brought to the ER Initial lab work done in the ER showed showed WBC 8.2, hemoglobin 9.8, platelet count 179, sodium 131, potassium 5.3, BUN 43, creatinine 1.48, glucose 421, troponin 0.270 proBNP 9620 influenza A not detected Influenza B not detected RSV not detected COVID-19 not detected EKG done in the ER showed heart rate of 83, no ST segment elevation or depression seen, no T-wave inversions seen. Chest x-ray done in the ER showed cardiomegaly and mild pulmonary vascular congestion. Patient admitted to internal medicine service 07/28. Patient seen and examined. WBC 9, hemoglobin 9.8, sodium 130, potassium 4.1, BUN 40, creatinine 1.43. Patient states she feels slightly better compared to yesterday, breathing has improved. 07/29. Patient seen and examined. Blood work this morning showed WBC 8.5, hemoglobin 9.1, platelet count 182 sodium 131, potassium 4.5, BUN 30 1.45. Echo limited review done showed LVEF of 3025%, moderately reduced global left ventricular systolic function with mild and apical wall hypokinesis. UA was positive for infection. 07/30.patient seen and examined. States breathing is improved REVIEW OF SYSTEMS: CONSTITUTIONAL: No fever, no malaise,. CARDIOVASCULAR: No chest pain, no palpitations, no syncope. PULMONARY: As mentioned above GASTROINTESTINAL: No diarrhea, no nausea, no vomiting, no abdominal pain. NEUROLOGICAL: No headaches, no weakness, PHYSICAL EXAMINATION: GENERAL: The patient is alert and oriented x3, ill looking HEENT: Pupils are round and equally reacting to light. EOMI. No scleral icterus. No conjunctival pallor. Normocephalic, atraumatic. No pharyngeal erythema. No thyromegaly. CARDIOVASCULAR: S1 and S2 present. No murmurs, rubs, or gallops. PULMONARY: Diminished breath sounds at the bases bilaterally, no wheezing or crackles. ABDOMEN: Soft, nontender, nondistended, normoactive bowel sounds. No palpable organomegaly. MUSCULOSKELETAL: No joint swelling or deformity. EXTREMITIES: No cyanosis, clubbing, or pedal edema. NEUROLOGICAL: Gross neurological examination did not reveal any focal deficits. SKIN: No rashes. Assessment and plan Acute on chronic hypoxic respiratory failure Elevated troponin, recent cardiac cath and PCI to LAD on 07/17 acute on chronic congestive heart failure systolic dysfunction ejection fraction 20 to 25% UTI Coronary artery disease with previous stenting of the LAD Hyponatremia Hyperkalemia Hyperglycemia Known moderate disease of the RCA Hypertension Hyperlipidemia Diabetes with hyperglycemia Obesity Medication noncompliance Monitor vital signs Monitor CBC Monitor CMP Continue telemetry monitoring Trend troponins Serial ABGs Continue oxygen supplementation Continue aggressive bronchopulmonary hygiene Echo limited review done showed LVEF of 3025%, moderately reduced global left ventricular systolic function with mild and apical wall hypokinesis Strict I's and O's, daily weights, oral Bumex Ordered blood glucose monitoring, continue home regimen of Lantus Continue IV Unasyn Cardiology following Pulmonary following PT and OT consulted Labs and medication were reviewed.. Continue same treatment. Continue with symptomatic treatment. Resume home medication. Monitor labs and vitals. DVT a nd GI prophylaxis. Further recommendations as per clinical course of the patient Dictation was produced using [employer] dictation software. please excuse any grammatical, word or spelling errors. Objective - Vital Signs Vital signs: Vital Signs Temp 97.7 F 07/30/24 07:44 Pulse 70 07/30/24 08:10 Resp 18 07/30/24 08:10 BP 89/55 07/30/24 07:44 Pulse Ox 92 L 07/30/24 08:36 FiO2 Intake & Output 07/29/24 07/30/24 07/30/24 18:59 06:59 18:59 Intake Total 266 0 Output Total 900 Balance -634 0 Intake: IV 30 Invasive Line 1 10 Invasive Line 2 10 Invasive Line 3 10 Oral 236 0 Output: Urine 900 Other: Voiding Method Indwelling Catheter Indwelling Catheter External Catheter - Labs CBC & Chem 7: 07/30/24 08:28 12 08:28 Labs: Abnormal Lab Results - Last 24 Hours (Table) 07/30/24 07/30/24 07/30/24 Range/Units 06:14 08:28 08:28 RBC 2.91 L (3.80-5.40) m/uL Hgb 9.1 L (11.4-16.0) gm/dL Hct 29.5 L (34.0-46.0) % MCV 101.4 H (80.0-100.0) fL MCHC 30.7 L (31.0-37.0) g/dL RDW 16.6 H (11.5-15.5) % Sodium 134 L (137-145) mmol/L Chloride 96 L (98-107) mmol/L Carbon Dioxide 34 H (22-30) mmol/L BUN 37 H (7-17) mg/dL Creatinine 1.19 H (0.52-1.04) mg/dL Glucose 184 H (74-99) mg/dL POC Glucose (mg/dL) 138 H (70-110) mg/dL Calcium 7.9 L (8.4-10.2) mg/dL Alkaline Phosphatase 163 H (38-126) U/L Total Protein 6.2 L (6.3-8.2) g/dL Albumin 3.0 L (3.5-5.0) g/dL 07/30/24 Range/Units 11:10 RBC (3.80-5.40) m/uL Hgb (11.4-16.0) gm/dL Hct (34.0-46.0) % MCV (80.0-100.0) fL MCHC (31.0-37.0) g/dL RDW (11.5-15.5) % Sodium (137-145) mmol/L Chloride (98-107) mmol/L Carbon Dioxide (22-30) mmol/L BUN (7-17) mg/dL Creatinine (0.52-1.04) mg/dL Glucose (74-99) mg/dL POC Glucose (mg/dL) 177 H (70-110) mg/dL Calcium (8.4-10.2) mg/dL Alkaline Phosphatase (38-126) U/L Total Protein (6.3-8.2) g/dL Albumin (3.5-5.0) g/dL Microbiology - Last 24 Hours (Table) 07/27/24 17:30 Urine Culture - Final Urine,Voided Enterococcus faecalis
[2024-07-30 16:28] LABS: Glucose,Whole Blood 196 mg/dL (70-110)
[2024-07-30 19:52] LABS: Glucose,Whole Blood 164 mg/dL (70-110)
--- NOTE | 2024-07-30 21:17 | P.PN ---
Subjective Progress Note Date: 07/30/24 Principal diagnosis: Reason for follow-up is Enterococcus urinary tract infection Patient is a 69-year-old female with a past medical history significant for diabetes mellitus hypertension hyperlipidemia reflux has been brought to the hospital for evaluation of mental status change and decreased level of responsiveness, patient did have a low-grade fever positive with suprapubic tenderness concerning for symptomatic UTI urine is positive for Enterococcus. On today's evaluation that is 07/30/2024,the patient denies any fever or any chills, patient is breathing comfortably on 2 L nasal cannula oxygen the patient denies chest pain shortness of breath and no significant cough, patient denies abdominal pain, no nausea vomiting or diarrhea. Patient white count is 8.2, creatinine is 1.19 urine has been finalized with Enterococcus that is penicillin sensitive Objective - Vital Signs Vital signs: Vital Signs Temp 97.7 F 07/30/24 07:44 Pulse 70 07/30/24 08:10 Resp 18 07/30/24 08:10 BP 89/55 07/30/24 07:44 Pulse Ox 92 L 07/30/24 08:36 FiO2 Intake & Output 07/29/24 07/30/24 07/30/24 18:59 06:59 18:59 Intake Total 266 0 Output Total 900 Balance -634 0 Intake: IV 30 Invasive Line 1 10 Invasive Line 2 10 Invasive Line 3 10 Oral 236 0 Output: Urine 900 Other: Voiding Method Indwelling Catheter Indwelling Catheter External Catheter - Exam GENERAL DESCRIPTION: An elderly female lying in bed in no distress RESPIRATORY SYSTEM: Unlabored breathing , decreased breath sounds at bases HEART: S1 S2 regular rate and rhythm , ABDOMEN: Soft , no tenderness - Labs CBC & Chem 7: 07/30/24 08:28 07/30/24 08:28 Labs: Abnormal Lab Results - Last 24 Hours (Table) 07/30/24 07/30/24 07/30/24 Range/Units 06:14 08:28 08:28 RBC 2.91 L (3.80-5.40) m/uL Hgb 9.1 L (11.4-16.0) gm/dL Hct 29.5 L (34.0-46.0) % MCV 101.4 H (80.0-100.0) fL MCHC 30.7 L (31.0-37.0) g/dL RDW 16.6 H (11.5-15.5) % Sodium 134 L (137-145) mmol/L Chloride 96 L (98-107) mmol/L Carbon Dioxide 34 H (22-30) mmol/L BUN 37 H (7-17) mg/dL Creatinine 1.19 H (0.52-1.04) mg/dL Glucose 184 H (74-99) mg/dL POC Glucose (mg/dL) 138 H (70-110) mg/dL Calcium 7.9 L (8.4-10.2) mg/dL Alkaline Phosphatase 163 H (38-126) U/L Total Protein 6.2 L (6.3-8.2) g/dL Albumin 3.0 L (3.5-5.0) g/dL 07/30/24 Range/Units 11:10 RBC (3.80-5.40) m/uL Hgb (11.4-16.0) gm/dL Hct (34.0-46.0) % MCV (80.0-100.0) fL MCHC (31.0-37.0) g/dL RDW (11.5-15.5) % Sodium (137-145) mmol/L Chloride (98-107) mmol/L Carbon Dioxide (22-30) mmol/L BUN (7-17) mg/dL Creatinine (0.52-1.04) mg/dL Glucose (74-99) mg/dL POC Glucose (mg/dL) 177 H (70-110) mg/dL Calcium (8.4-10.2) mg/dL Alkaline Phosphatase (38-126) U/L Total Protein (6.3-8.2) g/dL Albumin (3.5-5.0) g/dL Microbiology - Last 24 Hours (Table) 07/27/24 17:30 Urine Culture - Final Urine,Voided Enterococcus faecalis Assessment and Plan (1) UTI (urinary tract infection) due to Enterococcus Current Visit: Yes Status: Acute Code(s): N39.0 - URINARY TRACT INFECTION, SITE NOT SPECIFIED; B95.2 - ENTEROCOCCUS THE CAUSE OF DISEASES CLASSIFIED ELSEWHERE SNOMED Code(s): 111784298135199 Plan: 1patient presented to hospital mental status changes weakness patient did have a low-grade fever did have a significantly positive UA and the patient also have a suprapubic tenderness concerning for a symptomatic UTI with urine culture currently growing Enterococcus faecalis that is penicillin sensitive. 2we will treat the patient with Unasyn 3 g every 8 hour while inpatient and monitor clinical course closely Dictation was produced using [employer] dictation software. please excuse any grammatical, word or spelling errors. Time with Patient: Less than 30
[2024-07-31 06:05] LABS: Glucose,Whole Blood 176 mg/dL (70-110)
[2024-07-31 07:09] LABS: Sodium 137 mmol/L (137-145)
[2024-07-31 07:10] LABS: African American GFR (CKD) 52 (>60 ml/min/1.73 sqM); Anion Gap 6 mmol/L; Blood Urea Nitrogen 31 mg/dL (7-17); Calcium 8.2 mg/dL (8.4-10.2); Carbon Dioxide 36 mmol/L (22-30); Chloride 95 mmol/L (98-107); Glucose 177 mg/dL (74-99); Non-African American GFR(CKD) 45 (>60 ml/min/1.73 sqM); Potassium 4.4 mmol/L (3.5-5.1)
[2024-07-31 07:43] VITALS: PULSE 78; TEMP 98.3
--- NOTE | 2024-07-31 09:52 | P.PN ---
Subjective Progress Note Date: 07/31/24 HISTORY OF PRESENTING ILLNESS 69-year-old with morbid obesity, recent PCI to mid LAD which was a in-stent stenosis disease, hypertension, dyslipidemia, type 2 diabetes which is poorly controlled, concerns of noncompliance. She presented to the hospital because of being less responsive, mildly confused and lethargic along with increased shortness of breath. She was noticed to be hypoxic with oxygen saturation in 70s on admission. Initial blood work showed hemoglobin 9.8, macrocytic anemia, potassium 5.3, sodium 31, BUN 43, creatinine 1.48, glucose 421, troponin 0.27, 0.4, 0.4, NT- proBNP 9600 COVID flu and RSV were negative. CXR shows pulmonary congestion EKG shows sinus rhythm heart rate 83, nonspecific ST changes unchanged from prior exam. Progress note 07/29/2022 Patient is seen and examined at bedside this a.m. BP is slightly low 99/61, heart rate 64 bpm. Hb 9.1, BUN 38, creatinine 1.45. Creatinine stable. 07/31/2024 Patient is seen and examined in bed this a.m. Creatinine is 1.2, hemoglobin is 9, PHYSICAL EXAMINATION Vital signs reviewed. Head: Normocephalic. Eyes: Sclerae nonicteric. Neck: Brisk carotid upstroke, mildly elevated JVP Lungs: Mild crackles audible, poor inspiratory effort but diminished breath sounds in bilateral bases Heart: Regular rate and rhythm, S1-S2 audible, no significant murmurs appreciated Abdomen: Soft nontender, positive bowel sounds. Extremities: 1+ pitting edema in bilateral lower extremity Neuro: Awake but not oriented. Detailed neuro exam was not performed. LifeVest in place ASSESSMENT NSTEMI, likely type II Acute hypoxic respiratory failure Acute HFrEF exacerbation Metabolic encephalopathy Ischemic cardiomyopathy with a EF of 20 to 25% --> EF 35% CAD status post PCI to LAD 07/17/2024, residual 80% disease in LCx, difficult to intervene because of acute angle origin. 60-70% mid RCA disease Type 2 diabetes with hyperglycemia Morbid obesity Medication noncompliance PLAN Continue aspirin, Plavix, Lipitor 80 mg Continue Farxiga 10 mg daily, Aldactone 25 mg daily Increase losartan to 25 mg daily as blood pressure is better. Continue metoprolol succinate 50 mg daily Agree with Bumex 1 mg p.o. twice daily. Will continue it for next 7 days. After 7 days recommend to reduce Bumex to 1 mg daily to reduce chances of deve loping LIAM. Recommend outpatient follow-up with Dr. Babcock and recommend staged PCI of mid RCA. Maintain LifeVest On discharge, obtain CMP and NT-proBNP after 1 week. If blood pressure and heart rate are stable, consider signing off tomorrow. Objective - Vital Signs Vital signs: Vital Signs Temp 98.3 F 07/31/24 07:30 Pulse 78 07/31/24 07:30 Resp 18 07/31/24 07:30 BP 132/66 07/31/24 07:30 Pulse Ox 94 L 07/31/24 07:38 FiO2 Intake & Output 07/30/24 07/31/24 07/31/24 18:59 06:59 18:59 Intake Total 0 100 Output Total 2300 Balance 0 -2300 100 Weight 90 kg Intake: Oral 0 100 Output: Urine 2300 Other: Voiding Method External Catheter External Catheter - Labs CBC & Chem 7: 07/30/24 08:28 07/31/24 06:24 Labs: Abnormal Lab Results - Last 24 Hours (Table) 07/30/24 07/30/24 07/30/24 Range/Units 11:10 16:20 19:49 Chloride (98-107) mmol/L Carbon Dioxide (22-30) mmol/L BUN (7-17) mg/dL Creatinine (0.52-1.04) mg/dL Glucose (74-99) mg/dL POC Glucose (mg/dL) 177 H 196 H 164 H (70-110) mg/dL Calcium (8.4-10.2) mg/dL 07/31/24 07/31/24 Range/Units 06:04 06:24 Chloride 95 L (98-107) mmol/L Carbon Dioxide 36 H (22-30) mmol/L BUN 31 H (7-17) mg/dL Creatinine 1.22 H (0.52-1.04) mg/dL Glucose 177 H (74-99) mg/dL POC Glucose (mg/dL) 176 H (70-110) mg/dL Calcium 8.2 L (8.4-10.2) mg/dL
[2024-07-31] MEDS ORDERED: polyethylene glycoL 3350 17 GM POWD.PACK PO SCH (10:45)
[2024-07-31 11:36] LABS: Glucose,Whole Blood 158 mg/dL (70-110)
--- NOTE | 2024-07-31 12:12 | P.DS ---
Providers Date of admission: 07/26/24 14:36 Expected date of discharge: 07/31/24 Attending physician: Francisco Vela Consults: 07/26/24 18:20 Consult Physician Routine Consulting Provider: Alfonso Knight Consult Reason/Comments: elevated troponin Do you want consulting provider notified?: Yes 07/27/24 08:45 Consult Physician Routine Consulting Provider: Cherelle Mendez Consult Reason/Comments: Acute respiratory failure Do you want consulting provider notified?: Yes 07/29/24 11:20 Consult Physician Routine Consulting Provider: Jayesh Rizzo Consult Reason/Comments: positive UA and urine culture Do you want consulting provider notified?: Yes Primary care physician: Miguel Sy Hospital Course: Discharge diagnoses; Acute on chronic hypoxic respiratory failure Elevated troponin, recent cardiac cath and PCI to LAD on 07/17 acute on chronic congestive heart failure systolic dysfunction Metabolic encephalopathy Ischemic cardiomyopathy with a EF of 20 to 25% --> EF 35% UTI Coronary artery disease with previous stenting of the LAD Hyponatremia Hyperkalemia Hyperglycemia Known moderate disease of the RCA Hypertension Hyperlipidemia Diabetes with hyperglycemia Obesity Medication noncompliance Hospital course; patient is 69-year-old lady with past medical history significant for coronary artery disease with previous stenting, hypertension, hyperlipidemia, diabetes, and obesity who was brought to the ER for altered mental status. Patient only recently discharged on 07/25 after being treated for CHF and underwent a cardiac cath with PCI to LAD. Patient was brought back to the hospital as daughter found patient to be less responsive. Patient daughter stated that when she went to check on her mom she was very lethargic. Patient was discharged on liters of oxygen but was not using her oxygen properly as the tubing was kinked on her wheelchair. is unable to provide take care of her. No complaint of chest pain. Denies any fever or chills. EMS was called and found her to be saturating in the 70s. Because of patient being lethargic and less arousable, patient was brought to the ER Initial lab work done in the ER showed showed WBC 8.2, hemoglobin 9.8, platelet count 179, sodium 131, potassium 5.3, BUN 43, creatinine 1.48, glucose 421, troponin 0.270 proBNP 9620 influenza A not detected Influenza B not detected RSV not detected COVID-19 not detected EKG done in the ER showed heart rate of 83, no ST segment elevation or depression seen, no T-wave inversions seen. Chest x-ray done in the ER showed cardiomegaly and mild pulmonary vascular congestion. Patient admitted to internal medicine service 07/28. Patient seen and examined. WBC 9, hemoglobin 9.8, sodium 130, potassium 4.1, BUN 40, creatinine 1.43. Patient states she feels slightly better compared to yesterday, breathing has improved. 07/29. Patient seen and examined. Blood work this morning showed WBC 8.5, hemoglobin 9.1, platelet count 182 sodium 131, potassium 4.5, BUN 30 1.45. Echo limited review done showed LVEF of 3025%, moderately reduced global left ventricular systolic function with mild and apical wall hypokinesis. UA was positive for infection. 07/30.patient seen and examined. States breathing is improved 07/31. Patient seen and examined. States she feels slightly better. Breathing has improved. Cardiology cleared the patient for discharge on Continue aspirin, Plavix, Lipitor 80 mg, Farxiga 10 mg daily, Bumex , losartan 12.5 mg daily, Aldactone 25 mg daily Metoprolol changed to metoprolol succinate 50 mg daily. Cardiology Recommend o utpatient follow-up with Dr. Perla and recommend staged PCI of mid RCA, they recommended that since patient EF improved patient can be off the LifeVest. Being discharged to rehab. Patient needs to complete 3 more days of Augmentin for UTI PHYSICAL EXAMINATION: GENERAL: The patient is alert and oriented x3, not in any acute distress. Well developed, well nourished. HEENT: Pupils are round and equally reacting to light. EOMI. No scleral icterus. No conjunctival pallor. Normocephalic, atraumatic. No pharyngeal erythema. No thyromegaly. CARDIOVASCULAR: S1 and S2 present. No murmurs, rubs, or gallops. PULMONARY: Chest is clear to auscultation, no wheezing or crackles. ABDOMEN: Soft, nontender, nondistended, normoactive bowel sounds. No palpable organomegaly. MUSCULOSKELETAL: No joint swelling or deformity. EXTREMITIES: No cyanosis, clubbing, or pedal edema. NEUROLOGICAL: Gross neurological examination did not reveal any focal deficits. SKIN: No rashes. Dictation was produced using [employer] software. please excuse any grammatical, word or spelling errors. Patient Condition at Discharge: Stable Plan - Discharge Summary New Discharge Prescriptions: New Amoxic-Pot Clav 875-125Mg [Augmentin 875-125] 1 tab PO BID 3 Days #6 tab Bumetanide [BUMEX] 1 mg PO BID@0900,1600 30 Days #30 tab Losartan [Cozaar] 25 mg PO DAILY #30 tab Dapagliflozin Propanediol [Farxiga] 10 mg PO DAILY #30 tab Metoprolol Succinate (ER) [Toprol XL] 50 mg PO DAILY 30 Days #30 tab Continue Clopidogrel [Plavix] 75 mg PO DAILY traZODone HCL [Desyrel] 200 mg PO HS Insulin Lispro [humaLOG Kwikpen] See Protocol SQ AC-TID Aspirin 81 mg PO DAILY #30 tab Atorvastatin [Lipitor] 80 mg PO HS #30 tab oxyCODONE HCL [oxyCODONE HCL (IR)] 10 mg PO TID PRN 2 Days #6 tab PRN Reason: BACK PAIN Insulin Glargine,Hum.rec.anlog [Lantus Solostar Pen] 60 units SQ BID Levothyroxine Sodium [Synthroid] 300 mcg PO DAILY DULoxetine HCL [Cymbalta] 60 mg PO BID Spironolactone [Aldactone] 25 mg PO DAILY #30 tab Nitroglycerin Sl Tabs [Nitrostat] 0.4 mg SUBLINGUAL Q5M PRN #30 tab PRN Reason: Chest Pain Cyanocobalamin [Vitamin B-12] 1,000 mcg PO DAILY #30 tab Albuterol Inhaler [Ventolin Hfa Inhaler] 2 puff INHALATION RT-Q6H PRN PRN Reason: Shortness Of Breath ALPRAZolam [Xanax] 2 mg PO TID PRN 2 Days #6 tab PRN Reason: Anxiety Discontinued Losartan [Cozaar] 12.5 mg PO DAILY #15 tab Furosemide [Lasix] 40 mg PO DAILY #30 tab Metoprolol Tartrate [Lopressor] 50 mg PO BID #60 tab Discharge Medication List Clopidogrel [Plavix] 75 mg PO DAILY 07/07/19 [History] traZODone HCL [Desyrel] 200 mg PO HS 07/07/19 [History] Insulin Glargine,Hum.rec.anlog [Lantus Solostar Pen] 60 units SQ BID 06/09/21 [History] Levothyroxine Sodium [Synthroid] 300 mcg PO DAILY 08/30/21 [History] Insulin Lispro [humaLOG Kwikpen] See Protocol SQ AC-TID 09/21/23 [History] DULoxetine HCL [Cymbalta] 60 mg PO BID 07/15/24 [History] Aspirin 81 mg PO DAILY #30 tab 07/25/24 [Rx] Atorvastatin [Lipitor] 80 mg PO HS #30 tab 07/25/24 [Rx] Cyanocobalamin [Vitamin B-12] 1,000 mcg PO DAILY #30 tab 07/25/24 [Rx] Nitroglycerin Sl Tabs [Nitrostat] 0.4 mg SUBLINGUAL Q5M PRN #30 tab 07/25/24 [Rx] Spironolactone [Aldactone] 25 mg PO DAILY #30 tab 07/25/24 [Rx] Albuterol Inhaler [Ventolin Hfa Inhaler] 2 puff INHALATION RT-Q6H PRN 07/26/24 [History] ALPRAZolam [Xanax] 2 mg PO TID PRN 2 Days #6 tab 07/31/24 [Rx] Amoxic-Pot Clav 875-125Mg [Augmentin 875-125] 1 tab PO BID 3 Days #6 tab 07/31/24 [Rx] Bumetanide [BUMEX] 1 mg PO BID@0900,1600 30 Days #30 tab 07/31/24 [Rx] Dapagliflozin Propanediol [Farxiga] 10 mg PO DAILY #30 tab 07/31/24 [Rx] Losartan [Cozaar] 25 mg PO DAILY #30 tab 07/31/24 [Rx] Metoprolol Succinate (ER) [Toprol XL] 50 mg PO DAILY 30 Days #30 tab 07/31/24 [Rx] oxyCODONE HCL [oxyCODONE HCL (IR)] 10 mg PO TID PRN 2 Days #6 tab 07/31/24 [Rx] Follow up Appointment(s)/Referral(s): Miguel Sy MD [Primary Care Provider] - 1-2 days Alfonso Knight MD [Medical Doctor] - 1 Week Discharge Disposition: TRANSFER TO SNF/ECF Plan of Treatment: CMP and NTproBNP 1 week after discharge Bumex 1 mg BID foir 7 days, after 7 days reduce back to once a day Maintain lifevest F/u with Dr perla for staged RCA PCI
--- NOTE | 2024-07-31 12:21 | P.PN ---
Subjective Progress Note Date: 07/31/24 Principal diagnosis: Acute hypoxic respiratory failure secondary to acute systolic congestive heart failure On 07/27/2024, the patient is being seen in consultation. The patient was seen in consult during her last admission and the patient was discharged home yesterday to be readmitted back to the hospital because of worsening shortness of breath diminished level of consciousness. The patient was discharged home with oxygen and she also had a decompensated heart failure post DE post angioplasty and stenting and the patient was given a LifeVest. While at home, the patient decompensated. She was unable to take care of herself. Furthermore, she was noted to be desaturating with a pulse ox as low as in the 70s and apparently her oxygen tube was kinked under her wheelchair. She was immediately brought back to the hospital and she was initially placed on nonrebreather facemask and a blood gas was done that showed a pH of 7.32 with a pCO2 of 62 and pO2 of 142. Subsequently, she was taken off the nonrebreather and the patient is currently on 5 L of oxygen by nasal cannula with a pulse ox of 94%. Chest x-ray was repeated and the patient has cardiomegaly and pulm vessel congestion consistent with CHF. Her blood work showed a WBC count of 6.6 with a hemoglobin 9.2 and a platelet count of 154. BUN 48 with a creatinine of 1.5 and a sodium levels at 132. Glucose level was at 288. Calcium is at 7.7. UA showed 8 WBCs. Based on that, the patient was readmitted to the hospital. She also had elevation in troponins and the levels were 0.2 and 0.4 and 0 point respectively x 3. Home medications have been resumed. She is on aspirin and Plavix. She was started on IV Lasix 40 mg every 12 hours patient was started on IV heparin. Cardiology was consulted. She remains on Aldactone. She remains on metoprolol 50 mg p.o. twice a day. Patient was evaluated today on 07/28/2024, patient is on3 L nasal cannula, O2 sats 97%, patient is steadily improving, breathing easier, remains on IV Lasix and IV heparin. CBC is relatively normal PTT is 49.3 basic metabolic profile is normal BUN is 40 creatinine 1.43 troponin is a bit elevated BNP level is 9620, viral screening is negative Patient was seen today on 07/29/2024, continues to improve, doing better, b reathing easier, on 2 L with O2 sat of 93%, patient does not seem to be in any distress, she seems to be quite comfortable. As [id number] she is rarely using her oxygen. WBC count is 8.5 hemoglobin 9.1 electrolytes are normal BUN is 38 creatinine 1.45 bicarb is 37 Patient was seen today on 07/30/2024, patient is doing great, relatively asymptomatic, does not seem to be in any distress, remains on 2 L nasal cannula with O2 saturation of 92% hemodynamically stable with mean arterial pressure of 66,WBC count is 8.2 hemoglobin 9.1, basic metabolic profile is normal, BUN is 37 creatinine 1.19 chest x-ray from yesterday continue to show evidence of pulmonary edema, remains on Aldactone patient needs more diuretics based on her chest x-ray findings hence we will increase her Bumex to 1 mg p.o. twice daily Patient was seen today on 07/31/2024, she is doing well from the pulmonary perspective, no cough no wheezing no shortness of breath, patient has some vague abdominal pain and discomfort related to chronic constipation. Otherwise the patient is doing well, and improving steadily with diuretics. Objective - Vital Signs Vital signs: Vital Signs Temp 98.3 F 07/31/24 07:30 Pulse 78 07/31/24 07:30 Resp 18 07/31/24 07:30 BP 132/66 07/31/24 07:30 Pulse Ox 94 L 07/31/24 07:38 FiO2 Intake & Output 07/30/24 07/31/24 07/31/24 18:59 06:59 18:59 Intake Total 0 100 Output Total 2300 Balance 0 -2300 100 Weight 90 kg Intake: Oral 0 100 Output: Urine 2300 Other: Voiding Method External Catheter External Catheter External Catheter - Exam Physical exam revealed 69-year-old female in no distress, on 2 L nasal cannula O2 sat is 94% Head: Atraumatic normocephalic HEENT: PERRLA, EOMI, nonicteric, no neck masses no JVD, no stridor Cardiac: Distant S1-S2, no S3 gallop, no murmur Lungs: Crackles at the bases persist. Abdomen: Soft nontender no MAG no rebound no guarding Extremities 1+ bipedal edema Skin: No rashes Neurologic exam profoundly weak otherwise no gross focal deficit. Psychiatric: Normal mood affect and normal mental status examination - Labs CBC & Chem 7: 07/30/24 08:28 07/31/24 06:24 Labs: Abnormal Lab Results - Last 24 Hours (Table) 07/30/24 07/30/24 07/31/24 Range/Units 16:20 19:49 06:04 Chloride (98-107) mmol/L Carbon Dioxide (22-30) mmol/L BUN (7-17) mg/dL Creatinine (0.52-1.04) mg/dL Glucose (74-99) mg/dL POC Glucose (mg/dL) 196 H 164 H 176 H (70-110) mg/dL Calcium (8.4-10.2) mg/dL 07/31/24 07/31/24 Range/Units 06:24 11:35 Chloride 95 L (98-107) mmol/L Carbon Dioxide 36 H (22-30) mmol/L BUN 31 H (7-17) mg/dL Creatinine 1.22 H (0.52-1.04) mg/dL Glucose 177 H (74-99) mg/dL POC Glucose (mg/dL) 158 H (70-110) mg/dL Calcium 8.2 L (8.4-10.2) mg/dL Assessment and Plan Assessment: Impression: Acute hypoxemic, and hypercapnic respiratory failure, multifactorial. But mostly secondary to severe LV dysfunction and congestive heart failure Acute on chronic systolic heart failure with impaired ejection fraction of 20 to 25% Acute kidney injury, likely secondary to cardiorenal factors, creatinine remained stable relative to her discharge values Small left-sided pleural effusion Non-ST elevation myocardial infarction, S/P PCI and stenting of her LAD, on 07/17/2024, currently on a combination of aspirin and Plavix. The patient is also on metoprolol and high-dose statins. Coronary artery disease with previous stent placement. The patient also has pre vious history of myocardial infarction.. The patient has an abnormal troponin and the patient is currently on IV heparin. Hypertension. Maintained on losartan for blood pressure control. Hyperlipidemia. 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 Diabetes mellitus, type II.The patient is on Levemir insulin 60 units twice a day Former smoker Recommendations Continue oxygen and titrate accordingly continue Bumex twice daily Continue Aldactone Continue aspirin Plavix Continue losartan metoprolol Continue Lipitor Continue insulin Levemir and sliding scale insulin Continue to monitor renal profile Discharge planning if cleared by other consultants Continue to follow Time with Patient: Less than 30
[2024-07-31] MEDS: LOSARTAN 25 MG TAB PO STA (12:58)
[2024-07-31 14:22] VITALS: BP 107/58
[2024-08-01] MEDS ORDERED: LOSARTAN 25 MG TAB PO SCH (09:00)
--- NOTE | 2024-08-01 14:49 | P.PN ---
Subjective Progress Note Date: 07/31/24 Principal diagnosis: Reason for follow-up is Enterococcus urinary tract infection Patient is a 69-year-old female with a past medical history significant for diabetes mellitus hypertension hyperlipidemia reflux has been brought to the hospital for evaluation of mental status change and decreased level of responsiveness, patient did have a low-grade fever positive with suprapubic tenderness concerning for symptomatic UTI urine is positive for Enterococcus. On today's evaluation that is 07/31/2024,the patient remains to be afebrile, patient is on 2 L nasal cannula supplemental oxygen and denies any shortness of breath no chest pain or cough.Patient denies having any nausea or vomiting, no abdominal pain and no diarrhea has been reported, no new symptoms. Patient white count is 1.22 Objective - Vital Signs Vital signs: Vital Signs Temp 98.3 F 07/31/24 07:30 Pulse 78 07/31/24 07:30 Resp 18 07/31/24 07:30 BP 132/66 07/31/24 07:30 Pulse Ox 94 L 07/31/24 07:38 FiO2 Intake & Output 07/30/24 07/31/24 07/31/24 18:59 06:59 18:59 Intake Total 0 100 Output Total 2300 Balance 0 -2300 100 Weight 90 kg Intake: Oral 0 100 Output: Urine 2300 Other: Voiding Method External Catheter External Catheter External Catheter - Exam GENERAL DESCRIPTION: An elderly female lying in bed in no distress RESPIRATORY SYSTEM: Unlabored breathing , decreased breath sounds at bases HEART: S1 S2 regular rate and rhythm , ABDOMEN: Soft , no tenderness - Labs CBC & Chem 7: 07/30/24 08:28 07/31/24 06:24 Labs: Abnormal Lab Results - Last 24 Hours (Table) 07/30/24 07/30/24 07/31/24 Range/Units 16:20 19:49 06:04 Chloride (98-107) mmol/L Carbon Dioxide (22-30) mmol/L BUN (7-17) mg/dL Creatinine (0.52-1.04) mg/dL Glucose (74-99) mg/dL POC Glucose (mg/dL) 196 H 164 H 176 H (70-110) mg/dL Calcium (8.4-10.2) mg/dL 07/31/24 07/31/24 Range/Units 06:24 11:35 Chloride 95 L (98-107) mmol/L Carbon Dioxide 36 H (22-30) mmol/L BUN 31 H (7-17) mg/dL Creatinine 1.22 H (0.52-1.04) mg/dL Glucose 177 H (74-99) mg/dL POC Glucose (mg/dL) 158 H (70-110) mg/dL Calcium 8.2 L (8.4-10.2) mg/dL Assessment and Plan (1) UTI (urinary tract infection) due to Enterococcus Status: Acute Code(s): N39.0 - URINARY TRACT INFECTION, SITE NOT SPECIFIED; B95.2 - ENTEROCOCCUS THE CAUSE OF DISEASES CLASSIFIED ELSEWHERE SNOMED Code(s): [id number] Plan: 1patient presented to hospital mental status changes weakness patient did have a low-grade fever did have a significantly positive UA and the patient also have a suprapubic tenderness concerning for a symptomatic UTI with urine culture currently growing Enterococcus faecalis that is penicillin sensitive. 2patient has shown improvement with Unasyn 3 g every 8 hour will finish therapy short course of oral Augmentin Dictation was produced using [employer] dictation software. please excuse any grammatical, word or spelling errors. Time with Patient: Less than 30
== END 2024-07-31 14:55 | DRG 280 ==
LOC: EC 11:58 → 3SCARD 14:36
PROVIDERS: ADMIT Hospitalist; ATTEND Hospitalist
DX: I11.0 Hypertensive heart disease with heart failure (principal); G93.41 Metabolic encephalopathy; I21.A1 Myocardial infarction type 2; I50.23 Acute on chronic systolic (congestive) heart failure; J96.21 Acute and chronic respiratory failure with hypoxia; J96.22 Acute and chronic respiratory failure with hypercapnia; N39.0 Urinary tract infection, site not specified; E87.1 Hypo-osmolality and hyponatremia; N17.9 Acute kidney failure, unspecified; D68.51 Activated protein C resistance; I25.5 Ischemic cardiomyopathy; I25.10 Atherosclerotic heart disease of native coronary artery without angina pectoris; E87.5 Hyperkalemia; E11.65 Type 2 diabetes mellitus with hyperglycemia; E78.5 Hyperlipidemia, unspecified; E66.01 Morbid (severe) obesity due to excess calories; K21.9 Gastro-esophageal reflux disease without esophagitis; B95.2 Enterococcus as the cause of diseases classified elsewhere; M19.90 Unspecified osteoarthritis, unspecified site; E03.9 Hypothyroidism, unspecified; D53.9 Nutritional anemia, unspecified; Z91.148 Patient's other noncompliance with medication regimen for other reason; Z95.5 Presence of coronary angioplasty implant and graft; Z79.890 Hormone replacement therapy; Z79.82 Long term (current) use of aspirin; Z88.6 Allergy status to analgesic agent; Z91.041 Radiographic dye allergy status; Z86.711 Personal history of pulmonary embolism; I25.2 Old myocardial infarction; Z87.891 Personal history of nicotine dependence; Z68.33 Body mass index [BMI] 33.0-33.9, adult; Z79.4 Long term (current) use of insulin; Z79.02 Long term (current) use of antithrombotics/antiplatelets; Z86.718 Personal history of other venous thrombosis and embolism; Z87.440 Personal history of urinary (tract) infections; Z90.710 Acquired absence of both cervix and uterus
CPT/HCPCS: 36415; 36600; 71046; 80048; 80053; 81001; 82803; 82805; 83036; 83880; 84484; 85025; 85610; 85730; 87077; 87086; 87186; 87636; 93005; 93308; 94760; 96365; 96366; 96375; 99285

== ENCOUNTER 2024-08-02 20:01 | Inpatient (IN) | payer MEDICARE, BC ==
--- NOTE | 2024-08-02 20:11 | ED ---
Abdominal Pain HPI - General Stated Complaint: Possible bowel obstruction Time Seen by Provider: 08/02/24 20:03 Source: RN notes reviewed, old records reviewed Mode of arrival: EMS Limitations: no limitations, altered mental status - History of Present Illness Initial Comments: This is a 69-year-old female to the ER for evaluation abdominal pain nausea vomiting concern for small bowel obstruction severe abdominal pain with decreased bowel movement, patient was attempted disimpaction at outside facility no significant help, severe pain with recent history of pelvic fracture, patient is a poor historian secondary to clinical condition MD Complaint: abdominal pain -: days(s) Location: diffuse Radiation: none Quality: cramping, stabbing Consistency: constant, intermittent Worsens With: nothing Associated Symptoms: nausea, vomiting, diarrhea Treatments Prior to Arrival: other (0) - Related Data Home Medications Medication Instructions Recorded Confirmed Clopidogrel [Plavix] 75 mg PO DAILY 07/07/19 08/03/24 traZODone HCL [Desyrel] 200 mg PO HS 07/07/19 08/03/24 Insulin Glargine,Hum.rec.anlog 60 units SQ BID 06/09/21 08/03/24 [Lantus Solostar Pen] Levothyroxine Sodium [Synthroid] 300 mcg PO DAILY 08/30/21 08/03/24 Insulin Lispro [humaLOG Kwikpen] See Protocol SQ AC-TID 09/21/23 08/03/24 DULoxetine HCL [Cymbalta] 60 mg PO BID 07/15/24 08/03/24 Albuterol Inhaler [Ventolin Hfa 2 puff INHALATION RT-Q6H PRN 07/26/24 08/03/24 Inhaler] oxyCODONE HCL [oxyCODONE HCL (IR)] 10 mg PO TID PRN 08/03/24 08/03/24 Previous Rx's Medication Instructions Recorded Aspirin 81 mg PO DAILY #30 tab 07/25/24 Atorvastatin [Lipitor] 80 mg PO HS #30 tab 07/25/24 Cyanocobalamin [Vitamin B-12] 1,000 mcg PO DAILY #30 tab 07/25/24 Nitroglycerin Sl Tabs [Nitrostat] 0.4 mg SUBLINGUAL Q5M PRN #30 tab 07/25/24 Spironolactone [Aldactone] 25 mg PO DAILY #30 tab 07/25/24 ALPRAZolam [Xanax] 2 mg PO TID PRN 2 Days #6 tab 07/31/24 Amoxic-Pot Clav 875-125Mg 1 tab PO BID 3 Days #6 tab 07/31/24 [Augmentin 875-125] Bumetanide [BUMEX] 1 mg PO BID@0900,1600 30 Days #30 07/31/24 tab Dapagliflozin Propanediol [Farxiga] 10 mg PO DAILY #30 tab 07/31/24 Losartan [Cozaar] 25 mg PO DAILY #30 tab 07/31/24 Metoprolol Succinate (ER) [Toprol 50 mg PO DAILY 30 Days #30 tab 07/31/24 XL] Allergies Allergy/AdvReac Type Severity Reaction Status Date / Time Iodinated Contrast Media Allergy Rash/Hives Verified 08/03/24 10:00 Iodine and Iodide Containing Allergy Rash/Hives Verified 08/03/24 10:00 Produc liraglutide [From Saxenda] AdvReac Unknown Nausea & Verified 08/03/24 10:00 Vomiting NSAIDS (Non-Steroidal AdvReac Unknown Nausea & Verified 08/03/24 10:00 Anti-Inflamma Vomiting aspirin AdvReac Nausea & Verified 08/03/24 10:00 Vomiting with high doses azithromycin AdvReac Vomiting Verified 08/03/24 10:00 naproxen [From Naprosyn] AdvReac Nausea & Verified 08/03/24 10:00 Vomiting Review of Systems ROS Statement: Those systems with pertinent positive or pertinent negative responses have been documented in the HPI. ROS Other: All systems not noted in ROS Statement are negative. Past Medical History Past Medical History: Blood Disorder, Cancer, Diabetes Mellitus, Deep Vein Thrombosis (DVT), GERD/Reflux, Hyperlipidemia, Hypertension, Myocardial Infarc tion ([place]), Neurologic Disorder, Osteoarthritis (OA), Pulmonary Embolus (PE), Thyroid Disorder Additional Past Medical History / Comment(s): Factor 5 leiden, DVT L leg, PE L lung, MIs x 5, palpitations, IDDM type II, neuropathy bilateral legs/feet, lymphedema L leg, charcot syndrome L foot, chronic low back pain, bilateral sciatica,hx bronchitis, anemia, hypothyroid, hx UTI, IBS, sinus problems, worsening tremors, "stomach shivering inside" plans to f/u with pcp. skin c ancer removal. hx of pneumonia long ago, pelvic fx Last Myocardial Infarction Date:: January 2020 History of Any Multi-Drug Resistant Organisms: VRE Date of last positivie culture/infection: 08/24/23 MDRO Source:: Urine Past Surgical History: Appendectomy, Cholecystectomy, Heart Catheterization With Stent, Hernia Repair, Hysterectomy, Tonsillectomy Additional Past Surgical History / Comment(s): Bilateral salpingectomy, bilateral oophorectomy, abdominal hernia surgeries, L foot fracture, bilateral cataract removals, epidural injections with last on 01/20/20 lumbar, LAST PROCEDURE 04/19/21 Past Anesthesia/Blood Transfusion Reactions: No Reported Reaction Additional Past Anesthesia/Blood Transfusion Reaction / Comment(s): Pt has received blood in past without reaction. Date of Last Stent Placement:: January 2020 Past Psychological History: Anxiety, Depression, Panic Disorder Smoking Status: Never smoker Past Alcohol Use History: None Reported Past Drug Use History: None Reported - Past Family History Mother Family Medical History: COPD Additional Family Medical History / Comment(s): Mother was a smoker. Father Family Medical History: Cancer Additional Family Medical History / Comment(s): Lung cancer. Father was a smoker. Son(s) Family Medical History: Deep Vein Thrombosis (DVT) General Exam Limitations: altered mental status General appearance: in no apparent distress, lethargic Head exam: Present: atraumatic, normocephalic, normal inspection Eye exam: Present: normal appearance, PERRL, EOMI. Absent: scleral icterus, conjunctival injection, periorbital swelling ENT exam: Present: normal exam, mucous membranes moist Neck exam: Present: normal inspection. Absent: tenderness, meningismus, lymphadenopathy Respiratory exam: Present: normal lung sounds bilaterally. Absent: respiratory distress, wheezes, rales, rhonchi, stridor Cardiovascular Exam: Present: regular rate, normal rhythm, normal heart sounds. Absent: systolic murmur, diastolic murmur, rubs, gallop, clicks GI/Abdominal exam: Present: soft, normal bowel sounds. Absent: distended, te nderness, guarding, rebound, rigid Extremities exam: Present: normal inspection, full ROM, normal capillary refill. Absent: tenderness, pedal edema, joint swelling, calf tenderness Back exam: Present: normal inspection Neurological exam: Present: alert, oriented X3, CN II-XII intact Psychiatric exam: Present: normal affect, normal mood Skin exam: Present: warm, dry, intact, normal color. Absent: rash Course Vital Signs 08/03/24 08/03/24 08/03/24 00:30 06:00 08:10 Temperature 97.8 F 98 F Pulse Rate 82 Pulse Rate [ 79 72 Pulse Oximetery ] Respiratory 21 18 18 Rate Blood Pressure 115/68 Blood Pressure 109/55 99/40 [Right Arm] O2 Sat by Pulse 96 96 96 Oximetry Fraction of Inspired Oxygen (FIO2) 08/03/24 08/03/24 08/03/24 14:41 17:24 19:50 Temperature 97.9 F 98.6 F Pulse Rate Pulse Rate [ 82 73 Pulse Oximetery ] Respiratory 18 18 Rate Blood Pressure Blood Pressure 114/62 97/47 [Right Arm] O2 Sat by Pulse 95 100 Oximetry Fraction of 100 Inspired Oxygen (FIO2) 08/03/24 08/04/24 08/04/24 23:58 00:00 01:00 Temperature 98.2 F Pulse Rate 73 72 73 Pulse Rate [ Pulse Oximetery ] Respiratory 18 18 18 Rate Blood Pressure 99/38 99/38 93/35 Blood Pressure [Right Arm] O2 Sat by Pulse 96 97 96 Oximetry Fraction of Inspired Oxygen (FIO2) 08/04/24 08/04/24 08/04/24 02:00 03:00 04:00 Temperature 98.6 F Pulse Rate 81 68 81 Pulse Rate [ Pulse Oximetery ] Respiratory 15 21 14 Rate Blood Pressure 108/46 112/67 75/25 Blood Pressure [Right Arm] O2 Sat by Pulse 95 98 95 Oximetry Fraction of Inspired Oxygen (FIO2) 08/04/24 08/04/24 08/04/24 05:00 06:00 07:00 Temperature Pulse Rate 68 75 70 Pulse Rate [ Pulse Oximetery ] Respiratory 22 21 15 Rate Blood Pressure 99/47 98/47 90/37 Blood Pressure [Right Arm] O2 Sat by Pulse 95 95 95 Oximetry Fraction of Inspired Oxygen (FIO2) 08/04/24 08/04/24 08/04/24 08:00 10:00 11:00 Temperature 97.9 F Pulse Rate 84 80 73 Pulse Rate [ Pulse Oximetery ] Respiratory 28 H 14 12 Rate Blood Pressure 123/50 118/43 131/54 Blood Pressure [Right Arm] O2 Sat by Pulse 95 96 97 Oximetry Fraction of Inspired Oxygen (FIO2) 08/04/24 08/04/24 08/04/24 12:00 13:00 14:00 Temperature 98.2 F Pulse Rate 68 71 63 Pulse Rate [ 70 Pulse Oximetery ] Respiratory 21 21 18 Rate Blood Pressure 115/43 115/52 125/60 Blood Pressure 116/65 [Right Arm] O2 Sat by Pulse 93 L Oximetry Fraction of Inspired Oxygen (FIO2) 08/04/24 08/04/24 08/04/24 16:00 17:00 18:00 Temperature Pulse Rate 72 70 66 Pulse Rate [ Pulse Oximetery ] Respiratory 18 16 16 Rate Blood Pressure 120/49 127/54 122/61 Blood Pressure [Right Arm] O2 Sat by Pulse 95 94 L 94 L Oximetry Fraction of Inspired Oxygen (FIO2) 08/04/24 08/04/24 08/04/24 19:00 19:41 19:50 Temperature Pulse Rate 78 70 71 Pulse Rate [ Pulse Oximetery ] Respiratory 14 20 0 L Rate Blood Pressure 123/45 117/43 117/43 Blood Pressure [Right Arm] O2 Sat by Pulse 95 Oximetry Fraction of Inspired Oxygen (FIO2) 08/04/24 08/04/24 08/04/24 20:00 20:10 20:20 Temperature Pulse Rate 67 64 68 Pulse Rate [ Pulse Oximetery ] Respiratory 4 L 0 L 0 L Rate Blood Pressure 117/43 114/55 114/55 Blood Pressure [Right Arm] O2 Sat by Pulse Oximetry Fraction of Inspired Oxygen (FIO2) 08/04/24 08/04/24 08/04/24 20:30 20:40 20:50 Temperature Pulse Rate 68 64 Pulse Rate [ Pulse Oximetery ] Respiratory 13 3 L 15 Rate Blood Pressure 114/55 112/70 112/70 Blood Pressure [Right Arm] O2 Sat by Pulse Oximetry Fraction of Inspired Oxygen (FIO2) 08/04/24 08/04/24 08/04/24 21:00 21:10 21:20 Temperature Pulse Rate 67 70 67 Pulse Rate [ Pulse Oximetery ] Respiratory 0 L 0 L 3 L Rate Blood Pressure 112/70 120/52 120/52 Blood Pressure [Right Arm] O2 Sat by Pulse Oximetry Fraction of Inspired Oxygen (FIO2) 08/04/24 08/04/24 21:30 21:40 Temperature Pulse Rate 66 71 Pulse Rate [ Pulse Oximetery ] Respiratory 3 L 5 L Rate Blood Pressure 120/52 114/51 Blood Pressure [Right Arm] O2 Sat by Pulse Oximetry Fraction of Inspired Oxygen (FIO2) - Reevaluation(s) Reevaluation #1: 08/02/24 21:35 Medical records reviewed Reevaluation #2: 08/02/24 22:27 Patient given enema here in the ER Successful Reevaluation #3: 08/02/24 22:27 Patient informed of results and questions answered Reevaluation #4: Was pt. sent in by a medical professional or institution (RONI Hollis, [employer], urgent care, hospital, or intermediate...) When possible be specific @ -no Did you speak to anyone other than the patient for history (EMS, parent, family, police, friend...)? What history was obtained from this source @ -no Did you review nursing and triage notes (agree or disagree)? Why? @ -agree Are old charts reviewed (outside hosp., previous admission, EMS record, old EKG, old radiological studies, urgent care reports/EKG's, intermediate records)? Report findings @ -yes Differential Diagnosis (chest pain, altered mental status, abdominal pain women, abdominal pain men, vaginal bleeding, weakness, fever, dyspnea, syncope, headache, dizziness, GI bleed, back pain, seizure, CVA, palpatations, mental health, musculoskeletal)? @ -prior EKG interpreted by me (3pts min.). @ -no X-rays interpreted by me (1pt min.). @ -no CT interpreted by me (1pt min.). @ -Yes shows significant stool burden with impaction U/S interpreted by me (1pt. min.). @ -no What testing was considered but not performed or refused? (CT, X-rays, U/S, labs)? Why? @ -none What meds were considered but not given or refused? Why? @ -none Did you discuss the management of the patient with other professionals (professionals i.e. RONI Hollis, [employer], lab, RT, psych nurse, group social worker, liquid sugar melter, teacher, parole or probation officer, case mgr)? Give summary @ -no Was smoking cessation discussed for >3mins.? @ -no Was critical care preformed (if so, how long)? @ -no Were there social determinants of health that impacted care today? How? (Homelessness, low income, unemployed, alcoholism, drug addiction, transportation, low edu. Level, literacy, decrease access to med. care, prison, rehab)? @ -none Was there de-escalation of care discussed even if they declined (Discuss DNR or withdrawal of care, Hospice)? DNR status @ -no What co-morbidities impacted this encounter? (DM, HTN, Smoking, COPD, CAD, Cancer, CVA, ARF, Chemo, Hep., AIDS, mental health diagnosis, sleep apnea, morbid obesity)? @ -none Was patient admitted / discharged? Hospital course, mention meds given and route, prescriptions, significant lab abnormalities, going to OR and other pertinent info. @ - 69 female to the ER for evaluation will be admitted for significant constipation and impaction, patient has significant pain here in the emergency department, patient does recently have known pelvic fractures Admitted Undiagnosed new problem with uncertain prognosis? @ -no Drug Therapy requiring intensive monitoring for toxicity (Heparin, Nitro, Insulin, Cardizem)? @ -no Were any procedures done? @ -no Diagnosis/symptom? @ -Abdominal pain pelvic pain constipation and impaction Acute, or Chronic, or Acute on Chronic? @ -Acute Uncomplicated (without systemic symptoms) or Complicated (systemic symptoms)? @ -Complicated Side effects of treatment? @ -no Exacerbation, Progression, or Severe Exacerbation? @ -exacerbation Poses a threat to life or bodily function? How? (Chest pain, [place], [place], pneumonia, PE, COPD, DKA, ARF, appy, cholecystitis, CVA, Diverticulitis, Homicidal, Suicidal, threat to staff... and all critical care pts) @ -yes extremes of age Reevaluation #5: Differential Abdominal Pain Women: Appendicitis, Cholecystitis, diverticulosis, ischemic bowel, pancreatitis, hepatitis, UTI, gastroenteritis, AAA, incarcerated hernia, bowel obstruction, constipation, inflammatory bowel, hepatitis, peptic ulcer disease, splenic infarction, perforated viscus, vulvitis, ovarian torsion, PID, kidney stone, placenta abruption, this is not meant to be an all-inclusive list - Consultations Consultation #1: Spoke with admitting physicians who agreed to admit this patient Medical Decision Making - Medical Decision Making 69 female to the ER for evaluation will be admitted for significant constipation and impaction, patient has significant pain here in the emergency department, patient does recently have known pelvic fractures - Lab Data Result diagrams: 08/05/24 22:51 08/05/24 06:51 Lab Results 08/02/24 08/02/24 08/02/24 Range/Units 21:04 21:04 21:04 WBC 13.9 H (3.8-10.6) k/uL RBC 3.91 (3.80-5.40) m/uL Hgb 12.4 D (11.4-16.0) gm/dL Hct 38.3 (34.0-46.0) % MCV 97.9 (80.0-100.0) fL MCH 31.6 (25.0-35.0) pg MCHC 32.3 (31.0-37.0) g/dL RDW 16.1 H (11.5-15.5) % Plt Count 215 (150-450) k/uL MPV 8.8 Neutrophils % 83 % Lymphocytes % 11 % Monocytes % 4 % Eosinophils % 2 % Basophils % 0 % Neutrophils # 11.5 H (1.3-7.7) k/uL Lymphocytes # 1.5 (1.0-4.8) k/uL Monocytes # 0.5 (0-1.0) k/uL Eosinophils # 0.3 (0-0.7) k/uL Basophils # 0.0 (0-0.2) k/uL Hypochromasia Moderate Anisocytosis Slight Macrocytosis Slight PT 11.7 (10.0-12.5) sec INR 1.1 (<1.2) APTT 22.1 (22.0-30.0) sec Sodium 139 (137-145) mmol/L Potassium 4.1 (3.5-5.1) mmol/L Chloride 97 L (98-107) mmol/L Carbon Dioxide 31 H (22-30) mmol/L Anion Gap 11 mmol/L BUN 34 H (7-17) mg/dL Creatinine 1.27 H (0.52-1.04) mg/dL Est GFR (CKD-EPI)AfAm 50 (>60 ml/min/1.73 sqM) Est GFR (CKD-EPI)NonAf 43 (>60 ml/min/1.73 sqM) Glucose 145 H (74-99) mg/dL POC Glucose (mg/dL) (70-110) mg/dL POC Glu [employer] Operator ID Estimated Ave Glu mg/dL mg/dL Hemoglobin A1c (<=6.0) % Plasma Lactic Acid Lloyd (0.7-2.0) mmol/L Calcium 8.5 (8.4-10.2) mg/dL Magnesium (1.6-2.3) mg/dL Total Bilirubin 1.2 (0.2-1.3) mg/dL AST 109 H (14-36) U/L ALT 38 H (4-34) U/L Alkaline Phosphatase 421 H (38-126) U/L Total Protein 7.7 (6.3-8.2) g/dL Albumin 3.9 (3.5-5.0) g/dL Amylase 34 (30-110) U/L Lipase 19 L (23-300) U/L 08/02/24 08/02/24 08/03/24 Range/Units 21:04 21:04 06:50 WBC 16.2 H (3.8-10.6) k/uL RBC 3.46 L (3.80-5.40) m/uL Hgb 11.0 L (11.4-16.0) gm/dL Hct 34.6 (34.0-46.0) % MCV 100.0 (80.0-100.0) fL MCH 31.6 (25.0-35.0) pg MCHC 31.6 (31.0-37.0) g/dL RDW 16.0 H (11.5-15.5) % Plt Count 175 (150-450) k/uL MPV 8.8 Neutrophils % 88 % Lymphocytes % 7 % Monocytes % 3 % Eosinophils % 1 % Basophils % 0 % Neutrophils # 14.3 H (1.3-7.7) k/uL Lymphocytes # 1.1 (1.0-4.8) k/uL Monocytes # 0.5 (0-1.0) k/uL Eosinophils # 0.2 (0-0.7) k/uL Basophils # 0.0 (0-0.2) k/uL Hypochromasia Marked Anisocytosis Macrocytosis Slight PT (10.0-12.5) sec INR (<1.2) APTT (22.0-30.0) sec Sodium (137-145) mmol/L Potassium (3.5-5.1) mmol/L Chloride (98-107) mmol/L Carbon Dioxide (22-30) mmol/L Anion Gap mmol/L BUN (7-17) mg/dL Creatinine (0.52-1.04) mg/dL Est GFR (CKD-EPI)AfAm (>60 ml/min/1.73 sqM) Est GFR (CKD-EPI)NonAf (>60 ml/min/1.73 sqM) Glucose (74-99) mg/dL POC Glucose (mg/dL) (70-110) mg/dL POC Glu [employer] Operator ID Estimated Ave Glu mg/dL mg/dL Hemoglobin A1c (<=6.0) % Plasma Lactic Acid Lloyd 1.1 (0.7-2.0) mmol/L Calcium (8.4-10.2) mg/dL Magnesium 2.6 H (1.6-2.3) mg/dL Total Bilirubin (0.2-1.3) mg/dL AST (14-36) U/L ALT (4-34) U/L Alkaline Phosphatase (38-126) U/L Total Protein (6.3-8.2) g/dL Albumin (3.5-5.0) g/dL Amylase (30-110) U/L Lipase (23-300) U/L 08/03/24 08/03/24 08/03/24 Range/Units 06:50 12:48 17:01 WBC (3.8-10.6) k/uL RBC (3.80-5.40) m/uL Hgb (11.4-16.0) gm/dL Hct (34.0-46.0) % MCV (80.0-100.0) fL MCH (25.0-35.0) pg MCHC (31.0-37.0) g/dL RDW (11.5-15.5) % Plt Count (150-450) k/uL MPV Neutrophils % % Lymphocytes % % Monocytes % % Eosinophils % % Basophils % % Neutrophils # (1.3-7.7) k/uL Lymphocytes # (1.0-4.8) k/uL Monocytes # (0-1.0) k/uL Eosinophils # (0-0.7) k/uL Basophils # (0-0.2) k/uL Hypochromasia Anisocytosis Macrocytosis PT (10.0-12.5) sec INR (<1.2) APTT (22.0-30.0) sec Sodium 140 (137-145) mmol/L Potassium 4.3 (3.5-5.1) mmol/L Chloride 101 (98-107) mmol/L Carbon Dioxide 33 H (22-30) mmol/L Anion Gap 6 mmol/L BUN 32 H (7-17) mg/dL Creatinine 1.29 H (0.52-1.04) mg/dL Est GFR (CKD-EPI)AfAm 49 (>60 ml/min/1.73 sqM) Est GFR (CKD-EPI)NonAf 42 (>60 ml/min/1.73 sqM) Glucose 130 H (74-99) mg/dL POC Glucose (mg/dL) 135 H 127 H (70-110) mg/dL POC Glu [employer] Operator ID Ceron Rosalva Ceron Rosalva Est[address] Glu mg/dL mg/dL Hemoglobin A1c (<=6.0) % Plasma Lactic Acid Lloyd (0.7-2.0) mmol/L Calcium 8.2 L (8.4-10.2) mg/dL Magnesium (1.6-2.3) mg/dL Total Bilirubin 0.7 (0.2-1.3) mg/dL AST 106 H (14-36) U/L ALT 44 H (4-34) U/L Alkaline Phosphatase 355 H (38-126) U/L Total Protein 6.7 (6.3-8.2) g/dL Albumin 3.3 L (3.5-5.0) g/dL Amylase (30-110) U/L Lipase (23-300) U/L 08/03/24 08/03/24 08/04/24 Range/Units 19:54 22:19 01:09 WBC 10.8 H 10.1 (3.8-10.6) k/uL RBC 3.23 L 3.21 L (3.80-5.40) m/uL Hgb 10.3 L 10.0 L (11.4-16.0) gm/dL Hct 32.4 L 32.2 L (34.0-46.0) % MCV 100.3 H 100.5 H (80.0-100.0) fL MCH 31.7 31.1 (25.0-35.0) pg MCHC 31.6 31.0 (31.0-37.0) g/dL RDW 16.5 H 16.2 H (11.5-15.5) % Plt Count 173 153 (150-450) k/uL MPV 9.3 9.3 Neutrophils % 82 76 % Lymphocytes % 13 17 % Monocytes % 3 4 % Eosinophils % 2 2 % Basophils % 0 0 % Neutrophils # 8.8 H 7.7 (1.3-7.7) k/uL Lymphocytes # 1.4 1.7 (1.0-4.8) k/uL Monocytes # 0.3 0.4 (0-1.0) k/uL Eosinophils # 0.2 0.2 (0-0.7) k/uL Basophils # 0.0 0.0 (0-0.2) k/uL Hypochromasia Marked Marked Anisocytosis Slight Slight Macrocytosis Slight Slight PT (10.0-12.5) sec INR (<1.2) APTT (22.0-30.0) sec Sodium (137-145) mmol/L Potassium (3.5-5.1) mmol/L Chloride (98-107) mmol/L Carbon Dioxide (22-30) mmol/L Anion Gap mmol/L BUN (7-17) mg/dL Creatinine (0.52-1.04) mg/dL Est GFR (CKD-EPI)AfAm (>60 ml/min/1.73 sqM) Est GFR (CKD-EPI)NonAf (>60 ml/min/1.73 sqM) Glucose (74-99) mg/dL POC Glucose (mg/dL) 254 H (70-110) mg/dL POC Glu Senior Power Plant Operator ID Deshawn Nelia [address] Glu mg/dL mg/dL Hemoglobin A1c (<=6.0) % Plasma Lactic Acid Lloyd (0.7-2.0) mmol/L Calcium (8.4-10.2) mg/dL Magnesium (1.6-2.3) mg/dL Total Bilirubin (0.2-1.3) mg/dL AST (14-36) U/L ALT (4-34) U/L Alkaline Phosphatase (38-126) U/L Total Protein (6.3-8.2) g/dL Albumin (3.5-5.0) g/dL Amylase (30-110) U/L Lipase (23-300) U/L 08/04/24 08/04/24 08/04/24 Range/Units 04:51 04:51 04:51 WBC 10.4 (3.8-10.6) k/uL RBC 3.17 L (3.80-5.40) m/uL Hgb 10.0 L (11.4-16.0) gm/dL Hct 32.0 L (34.0-46.0) % MCV 101.1 H (80.0-100.0) fL MCH 31.7 (25.0-35.0) pg MCHC 31.3 (31.0-37.0) g/dL RDW 16.1 H (11.5-15.5) % Plt Count 149 L (150-450) k/uL MPV 9.2 Neutrophils % 78 % Lymphocytes % 14 % Monocytes % 4 % Eosinophils % 3 % Basophils % 0 % Neutrophils # 8.1 H (1.3-7.7) k/uL Lymphocytes # 1.5 (1.0-4.8) k/uL Monocytes # 0.4 (0-1.0) k/uL Eosinophils # 0.3 (0-0.7) k/uL Basophils # 0.0 (0-0.2) k/uL Hypochromasia Marked Anisocytosis Slight Macrocytosis Slight PT (10.0-12.5) sec INR (<1.2) APTT (22.0-30.0) sec Sodium 139 (137-145) mmol/L Potassium 4.2 (3.5-5.1) mmol/L Chloride 101 (98-107) mmol/L Carbon Dioxide 30 (22-30) mmol/L Anion Gap 8 mmol/L BUN 31 H (7-17) mg/dL Creatinine 1.11 H (0.52-1.04) mg/dL Est GFR (CKD-EPI)AfAm 58 (>60 ml/min/1.73 sqM) Est GFR (CKD-EPI)NonAf 51 (>60 ml/min/1.73 sqM) Glucose 75 (74-99) mg/dL POC Glucose (mg/dL) (70-110) mg/dL POC Glu [employer] Operator ID Estimated Ave Glu mg/dL 203 mg/dL Hemoglobin A1c 8.7 H (<=6.0) % Plasma Lactic Acid Lloyd (0.7-2.0) mmol/L Calcium 8.1 L (8.4-10.2) mg/dL Magnesium (1.6-2.3) mg/dL Total Bilirubin (0.2-1.3) mg/dL AST (14-36) U/L ALT (4-34) U/L Alkaline Phosphatase (38-126) U/L Total Protein (6.3-8.2) g/dL Albumin (3.5-5.0) g/dL Amylase (30-110) U/L Lipase (23-300) U/L 08/04/24 08/04/24 Range/Units 06:18 07:01 WBC (3.8-10.6) k/uL RBC (3.80-5.40) m/uL Hgb (11.4-16.0) gm/dL Hct (34.0-46.0) % MCV (80.0-100.0) fL MCH (25.0-35.0) pg MCHC (31.0-37.0) g/dL RDW (11.5-15.5) % Plt Count (150-450) k/uL MPV Neutrophils % % Lymphocytes % % Monocytes % % Eosinophils % % Basophils % % Neutrophils # (1.3-7.7) k/uL Lymphocytes # (1.0-4.8) k/uL Monocytes # (0-1.0) k/uL Eosinophils # (0-0.7) k/uL Basophils # (0-0.2) k/uL Hypochromasia Anisocytosis Macrocytosis PT (10.0-12.5) sec INR (<1.2) APTT (22.0-30.0) sec Sodium (137-145) mmol/L Potassium (3.5-5.1) mmol/L Chloride (98-107) mmol/L Carbon Dioxide (22-30) mmol/L Anion Gap mmol/L BUN (7-17) mg/dL Creatinine (0.52-1.04) mg/dL Est GFR (CKD-EPI)AfAm (>60 ml/min/1.73 sqM) Est GFR (CKD-EPI)NonAf (>60 ml/min/1.73 sqM) Glucose (74-99) mg/dL POC Glucose (mg/dL) 67 L 74 (70-110) mg/dL POC Glu Senior Power Plant Operator ID Deshawn Osborne Estimated [address] Glu mg/dL mg/dL Hemoglobin A1c (<=6.0) % Plasma Lactic Acid Lloyd (0.7-2.0) mmol/L Calcium (8.4-10.2) mg/dL Magnesium (1.6-2.3) mg/dL Total Bilirubin (0.2-1.3) mg/dL AST (14-36) U/L ALT (4-34) U/L Alkaline Phosphatase (38-126) U/L Total Protein (6.3-8.2) g/dL Albumin (3.5-5.0) g/dL Amylase (30-110) U/L Lipase (23-300) U/L - Radiology Data Radiology results: report reviewed (CT abdomen pelvis significant stool burden, known pelvic fractures), image reviewed Disposition Clinical Impression: Abdominal pain, Constipation, Weakness, Pubic ramus fracture, Inferior pubic ramus fracture, Pelvic pain Disposition: ADMITTED IP TO THIS [facility] Condition: Serious Is patient prescribed a controlled substance at d/c from ED?: No Time of Disposition: 22:20
--- NOTE | 2024-08-02 21:20 | CT ---
EXAMINATION TYPE: CT abdomen pelvis wo con DATE OF EXAM: 08/02/2024 8:59 PM COMPARISON: 07/15/2024 CLINICAL INDICATION: Female, 69 years old with history of abdominal pain; Abdominal pain. Rectal spas ms. Last BM x2wks ago. TECHNIQUE: Axial CT abdomen pelvis wo con;Sagittal and coronal reformats were created on a separate workstation. Contrast used: mL of , (none if empty) Oral contrast used: without Oral Contrast (none if empty) CT DLP: 1129.4 mGycm, Automated exposure control for dose reduction was used. FINDINGS: LOWER CHEST: Atelectasis changes in the left lung base with bronchovascular crowding. Elevated left d iaphragm. The heart is enlarged for size. ABDOMEN LIVER: Unremarkable GALLBLADDER AND BILE DUCTS: Gallbladder is not visualized may be surgically absent. PANCREAS: Lipomatous pseudohypertrophy changes. SPLEEN: Unremarkable. ADRENAL GLANDS: Unremarkable. KIDNEYS AND URETERS: No evidence of hydronephrosis or renal calculus. The ureters are unremarkable. PELVIS BLADDER: No evidence for wall thickening or mass given limitations of exam. REPRODUCTIVE: Uterus is not visualized and is likely surgically absent. ABDOMEN & PELVIS STOMACH AND BOWEL: No evidence of bowel obstruction. r large stool burden in the rectum measuring up to 7.3 cm in transverse dimension and extending approximately 12.0 cm towards the sigmoid colon. Ther e is a large amount stool throughout the remainder of the colon. PERITONEUM/RETROPERITONEUM: No evidence of pneumoperitoneum or free fluid. VASCULATURE: No evidence of aortic aneurysm. MUSCULOSKELETAL: No acute osseous abnormalities remote bilateral inferior in superior pubic ramus fra ctures with healing changes. Possible remote right sacrum fracture present. LYMPH NODES: No gross evidence for lymphadenopathy. SOFT TISSUE/ABDOMINAL WALL: Postsurgical changes anterior abdominal wall surgical clips present IMPRESSION: 1. Large stool burden within the rectum and throughout the colon fecal disimpaction recommended. 2. Bilateral inferior and superior pubic rami fractures with healing changes. 3. Pancreatic lipomatosis. [facility], , 08/02/2024 9:17 PM
[2024-08-02] MEDS: SODIUM CHLORIDE 0.9% 1,000 ML IV STA (21:31)
[2024-08-02] MEDS: PANTOPRAZOLE 40 MG/10 ML VIAL IVP STA (21:33)
[2024-08-02] MEDS: ONDANSETRON 4 MG/2 ML VIAL IVP STA (21:33)
[2024-08-02 21:38] LABS: Anisocytosis Slight; Basophils % (A) 0 %; Eosinophils # (A) 0.3 k/uL (0-0.7); Eosinophils % (A) 2 %; HCT 38.3 % (34.0-46.0); Hypochromasia Moderate; Lymphocytes # (A) 1.5 k/uL (1.0-4.8); Lymphocytes % (A) 11 %; MCH 31.6 pg (25.0-35.0); MCHC 32.3 g/dL (31.0-37.0); MCV 97.9 fL (80.0-100.0); Macrocytosis Slight; Mean Platelet Volume 8.8; Monocytes # (A) 0.5 k/uL (0-1.0); Monocytes % (A) 4 %; Neutrophils # (A) 11.5 k/uL (1.3-7.7); Neutrophils % (A) 83 %; Platelet Count 215 k/uL (150-450); RBC 3.91 m/uL (3.80-5.40); RDW 16.1 % (11.5-15.5); WBC 13.9 k/uL (3.8-10.6)
[2024-08-02 21:47] LABS: HGB 12.4 gm/dL (11.4-16.0)
[2024-08-02 21:54] LABS: ALT 38 U/L (4-34); AST 109 U/L (14-36); African American GFR (CKD) 50 (>60 ml/min/1.73 sqM); Albumin 3.9 g/dL (3.5-5.0); Alkaline Phosphatase 421 U/L (38-126); Amylase 34 U/L (30-110); Anion Gap 11 mmol/L; Blood Urea Nitrogen 34 mg/dL (7-17); Calcium 8.5 mg/dL (8.4-10.2); Carbon Dioxide 31 mmol/L (22-30); Chloride 97 mmol/L (98-107); Glucose 145 mg/dL (74-99); Lipase 19 U/L (23-300); Non-African American GFR(CKD) 43 (>60 ml/min/1.73 sqM); Potassium 4.1 mmol/L (3.5-5.1); Sodium 139 mmol/L (137-145); Total Bilirubin 1.2 mg/dL (0.2-1.3); Total Protein 7.7 g/dL (6.3-8.2)
[2024-08-02 22:06] LABS: INR 1.1 (<1.2); Partial Thromboplastin Time 22.1 sec (22.0-30.0); Prothrombin Time 11.7 sec (10.0-12.5)
[2024-08-02] MEDS: HYDROmorphone 1 MG/ML 1 ML SYRINGE IVP STA (22:22)
[2024-08-02] MEDS: SENNOSIDES-DOCUSATE SODIUM 1 EACH TAB PO STA (22:24)
[2024-08-02] MEDS ORDERED: NALOXONE 0.4 MG/ML 1 ML VIAL IV PRN (22:25)
[2024-08-02] MEDS: SODIUM CHLORIDE 0.9% 500 ML 500 ML IV STA (22:25)
[2024-08-02] MEDS: SODIUM CHLORIDE 0.9% 1,000 ML IV SCH (23:25)
[2024-08-03] MEDS: SODIUM CHLORIDE 0.9% 1,000 ML IV SCH (01:11)
[2024-08-03] MEDS: HYDROmorphone 1 MG/ML 1 ML SYRINGE IVP PRN (02:43)
[2024-08-03 07:34] LABS: Basophils % (A) 0 %; Eosinophils # (A) 0.2 k/uL (0-0.7); Eosinophils % (A) 1 %; HCT 34.6 % (34.0-46.0); Hypochromasia Marked; Lymphocytes # (A) 1.1 k/uL (1.0-4.8); Lymphocytes % (A) 7 %; MCH 31.6 pg (25.0-35.0); MCHC 31.6 g/dL (31.0-37.0); Macrocytosis Slight; Mean Platelet Volume 8.8; Monocytes # (A) 0.5 k/uL (0-1.0); Monocytes % (A) 3 %; Neutrophils # (A) 14.3 k/uL (1.3-7.7); Neutrophils % (A) 88 %; Platelet Count 175 k/uL (150-450); RBC 3.46 m/uL (3.80-5.40); WBC 16.2 k/uL (3.8-10.6)
[2024-08-03 07:58] LABS: ALT 44 U/L (4-34); AST 106 U/L (14-36); African American GFR (CKD) 49 (>60 ml/min/1.73 sqM); Albumin 3.3 g/dL (3.5-5.0); Alkaline Phosphatase 355 U/L (38-126); Anion Gap 6 mmol/L; Blood Urea Nitrogen 32 mg/dL (7-17); Calcium 8.2 mg/dL (8.4-10.2); Carbon Dioxide 33 mmol/L (22-30); Chloride 101 mmol/L (98-107); Glucose 130 mg/dL (74-99); Non-African American GFR(CKD) 42 (>60 ml/min/1.73 sqM); Potassium 4.3 mmol/L (3.5-5.1); Sodium 140 mmol/L (137-145); Total Bilirubin 0.7 mg/dL (0.2-1.3); Total Protein 6.7 g/dL (6.3-8.2)
[2024-08-03] MEDS: PANTOPRAZOLE 40 MG/10 ML VIAL IV SCH (09:44)
[2024-08-03] MEDS ORDERED: ALBUTEROL HFA INHALER INHALATION PRN (11:15)
[2024-08-03] MEDS ORDERED: NITROGLYCERIN SL TABS 0.4 MG TAB SUBLINGUAL PRN (11:15)
[2024-08-03] MEDS ORDERED: DEXTROSE 50% SYRINGE 50 ML IVP PRN ×2 (11:20)
[2024-08-03 12:49] LABS: Glucose,Whole Blood 135 mg/dL (70-110)
[2024-08-03] MEDS: LEVOTHYROXINE 100 MCG TAB PO SCH (13:12)
[2024-08-03] MEDS: ASPIRIN 81 MG PO SCH (13:12)
[2024-08-03] MEDS: polyethylene glycoL 3350 17 GM POWD.PACK PO SCH (13:12)
[2024-08-03] MEDS: LOSARTAN 25 MG TAB PO SCH (13:12)
[2024-08-03] MEDS: DOCUSATE 100 MG CAP PO SCH (13:12)
[2024-08-03] MEDS: ALPRAZolam 1 MG TAB PO PRN (13:22)
[2024-08-03] MEDS: INSULIN ASPART (NovoLOG) 100 UNIT/ML VIAL SQ SCH (14:10)
--- NOTE | 2024-08-03 15:17 | P.HPIM ---
History of Present Illness H&P Date: 08/03/24 History of present illness; patient 69-year-old lady with past medical history significant for systolic CHF, hypertension, hyperlipidemia, diabetes, coronary artery disease who presented the ER for abdominal pain and constipation. Patient was discharged to rehab facility 3 to 4 days ago after being treated for altered mental status and CHF exacerbation. Patient was was having abdominal pain at the facility, abdominal pain was generalized, associate with nausea and vomiting. Patient did not have a bowel the last couple of days. Patient did have a bowel movement before discharge during last admission. There was no complaint of fever or chills. There was no complaint of chest pain or shortness of breath. Because of the symptoms, patient brought to the ER Initial lab work done in the ER showed WBC 13.9, hemoglobin 12.4, platelet count 215, sodium 139, potassium 4.1, BUN 34, creatinine 1.27, glucose 105, magnesium 2.6, AST 109, ALT 38 CT dominant pelvis done showed large stool burden within the rectum and throughout the colon fecal disimpaction recommended, bilateral inferior and s uperior pubic rami fracture with healing changes. Patient admitted to internal medicine service REVIEW OF SYSTEMS: CONSTITUTIONAL: No fever, no malaise, no fatigue. HEENT: No recent visual problems or hearing problems. Denied any sore throat. CARDIOVASCULAR: No chest pain, orthopnea, PND, no palpitations, no syncope. PULMONARY: No shortness of breath, no cough, no hemoptysis. GASTROINTESTINAL: Mentioned above NEUROLOGICAL: No headaches, no weakness, no numbness. HEMATOLOGICAL: Denies any bleeding or petechiae. GENITOURINARY: Denies any burning micturition, frequency, or urgency. MUSCULOSKELETAL/RHEUMATOLOGICAL: Denies any joint pain, swelling, or any muscle pain. ENDOCRINE: Denies any polyuria or polydipsia. The rest of the 14-point review of systems is negative. PHYSICAL EXAMINATION: GENERAL: The patient is alert and oriented x3, ill looking HEENT: Pupils are round and equally reacting to light. EOMI. No scleral icterus. No conjunctival pallor. Normocephalic, atraumatic. No pharyngeal erythema. No thyromegaly. CARDIOVASCULAR: S1 and S2 present. No murmurs, rubs, or gallops. PULMONARY: Chest is clear to auscultation, no wheezing or crackles. ABDOMEN: Soft, nontender, nondistended, normoactive bowel sounds. No palpable organomegaly. MUSCULOSKELETAL: No joint swelling or deformity. EXTREMITIES: No cyanosis, clubbing, or pedal edema. NEUROLOGICAL: Gross neurological examination did not reveal any focal deficits. SKIN: No rashes. Assessment and plan Abdominal pain Constipation chronic congestive heart failure systolic dysfunction Ischemic cardiomyopathy with a EF of 20 to 25% --> EF 35% Coronary artery disease with previous stenting of the LAD Hyponatremia Hyperkalemia Hyperglycemia Known moderate disease of the RCA Hypertension Hyperlipidemia Diabetes with hyperglycemia Obesity Monitor vital signs Monitor CBC Monitor CMP Start patient on clear liquid diet Aggressive bowel regimen with MiraLAX and Dulcolax Ordered lactulose Judicious use of pain medications Resume home medications Consult surgery Labs and medication were reviewed.. Continue same treatment. Continue with symptomatic treatment. Resume home medication. Monitor labs and vitals. DVT and GI prophylaxis. Further recommendations as per clinical course of the patient Dictation was produced using [employer] dictation software. please excuse any grammatical, word or spelling errors. Past Medical History Past Medical History: Blood Disorder, Cancer, Diabetes Mellitus, Deep Vein Thrombosis (DVT), GERD/Reflux, Hyperlipidemia, Hypertension, Myocardial Infarction ([place]), Neurologic Disorder, Osteoarthritis (OA), Pulmonary Embolus (PE), Thyroid Disorder Additional Past Medical History / Comment(s): Factor 5 leiden, DVT L leg, PE L lung, MIs x 5, palpitations, IDDM type II, neuropathy bilateral legs/feet, lymphedema L leg, charcot syndrome L foot, chronic low back pain, bilateral sciatica,hx bronchitis, anemia, hypothyroid, hx UTI, IBS, sinus problems, worsening tremors, "stomach shivering inside" plans to f/u with pcp. skin cancer removal. hx of pneumonia long ago, pelvic fx Last Myocardial Infarction Date:: January 2020 History of Any Multi-Drug Resistant Organisms: VRE Date of last positivie culture/infection: 08/24/23 MDRO Source:: Urine Past Surgical History: Appendectomy, Cholecystectomy, Heart Catheterization With Stent, Hernia Repair, Hysterectomy, Tonsillectomy Additional Past Surgical History / Comment(s): Bilateral salpingectomy, bilateral oophorectomy, abdominal hernia surgeries, L foot fracture, bilateral cataract removals, epidural injections with last on 01/20/20 lumbar, LAST PROCEDURE 04/19/21 Past Anesthesia/Blood Transfusion Reactions: No Reported Reaction Additional Past Anesthesia/Blood Transfusion Reaction / Comment(s): Pt has received blood in past without reaction. Date of Last Stent Placement:: January 2020 Past Psychological History: Anxiety, Depression, Panic Disorder Smoking Status: Never smoker Past Alcohol Use History: None Reported Past Drug Use History: None Reported - Past Family History Mother Family Medical History: COPD Additional Family Medical History / Comment(s): Mother was a smoker. Father Family Medical History: Cancer Additional Family Medical History / Comment(s): Lung cancer. Father was a smoker. Son(s) Family Medical History: Deep Vein Thrombosis (DVT) Medications and Allergies Home Medications Medication Instructions Recorded Confirmed Type Clopidogrel [Plavix] 75 mg PO DAILY 07/07/19 08/03/24 History traZODone HCL [Desyrel] 200 mg PO HS 07/07/19 08/03/24 History Insulin Glargine,Hum.rec.anlog 60 units SQ BID 06/09/21 08/03/24 History [Lantus Solostar Pen] Levothyroxine Sodium [Synthroid] 300 mcg PO DAILY 08/30/21 08/03/24 History Insulin Lispro [humaLOG Kwikpen] See Protocol SQ AC-TID 09/21/23 08/03/24 History DULoxetine HCL [Cymbalta] 60 mg PO BID 07/15/24 08/03/24 History Aspirin 81 mg PO DAILY #30 tab 07/25/24 08/03/24 Rx Atorvastatin [Lipitor] 80 mg PO HS #30 tab 07/25/24 08/03/24 Rx Cyanocobalamin [Vitamin B-12] 1,000 mcg PO DAILY #30 tab 07/25/24 08/03/24 Rx Nitroglycerin Sl Tabs [Nitrostat] 0.4 mg SUBLINGUAL Q5M PRN #30 tab 07/25/24 08/03/24 Rx Spironolactone [Aldactone] 25 mg PO DAILY #30 tab 07/25/24 08/03/24 Rx Albuterol Inhaler [Ventolin Hfa 2 puff INHALATION RT-Q6H PRN 07/26/24 08/03/24 History Inhaler] ALPRAZolam [Xanax] 2 mg PO TID PRN 2 Days #6 tab 07/31/24 08/03/24 Rx Amoxic-Pot Clav 875-125Mg 1 tab PO BID 3 Days #6 tab 07/31/24 08/03/24 Rx [Augmentin 875-125] Bumetanide [BUMEX] 1 mg PO BID@0900,1600 30 Days #30 07/31/24 08/03/24 Rx tab Dapagliflozin Propanediol [Farxiga] 10 mg PO DAILY #30 tab 07/31/24 08/03/24 Rx Losartan [Cozaar] 25 mg PO DAILY #30 tab 07/31/24 08/03/24 Rx Metoprolol Succinate (ER) [Toprol 50 mg PO DAILY 30 Days #30 tab 07/31/24 08/03/24 Rx XL] oxyCODONE HCL [oxyCODONE HCL (IR)] 10 mg PO TID PRN 08/03/24 08/03/24 History Allergies Allergy/AdvReac Type Severity Reaction Status Date / Time Iodinated Contrast Media Allergy Rash/Hives Verified 08/03/24 10:00 Iodine and Iodide Containing Allergy Rash/Hives Verified 08/03/24 10:00 Produc liraglutide [From Saxenda] AdvReac Unknown Nausea & Verified 08/03/24 10:00 Vomiting NSAIDS (Non-Steroidal AdvReac Unknown Nausea & Verified 08/03/24 10:00 Anti-Inflamma Vomiting aspirin AdvReac Nausea & Verified 08/03/24 10:00 Vomiting with high doses azithromycin AdvReac Vomiting Verified 08/03/24 10:00 naproxen [From Naprosyn] AdvReac Nausea & Verified 08/03/24 10:00 Vomiting Physical Exam Vitals: Vital Signs Temp Pulse Pulse Resp BP BP Pulse Ox 08/03/24 08:10 98 F 72 18 99/40 96 08/03/24 06:00 79 18 109/55 96 08/03/24 00:30 97.8 F 82 21 115/68 96 Intake and Output 08/02/24 08/03/24 08/03/24 22:59 06:59 14:59 Other: # Bowel Movements 1 Weight 128.367 kg Results CBC & Chem 7: 08/03/24 06:50 08/03/24 06:50 Labs: Abnormal Lab Results - Last 24 Hours (Table) 08/02/24 08/02/24 08/02/24 Range/Units 21:04 21:04 21:04 WBC 13.9 H (3.8-10.6) k/uL RBC (3.80-5.40) m/uL Hgb (11.4-16.0) gm/dL RDW 16.1 H (11.5-15.5) % Neutrophils # 11.5 H (1.3-7.7) k/uL Chloride 97 L (98-107) mmol/L Carbon Dioxide 31 H (22-30) mmol/L BUN 34 H (7-17) mg/dL Creatinine 1.27 H (0.52-1.04) mg/dL Glucose 145 H (74-99) mg/dL Calcium (8.4-10.2) mg/dL Magnesium 2.6 H (1.6-2.3) mg/dL AST 109 H (14-36) U/L ALT 38 H (4-34) U/L Alkaline Phosphatase 421 H (38-126) U/L Albumin (3.5-5.0) g/dL Lipase 19 L (23-300) U/L 08/03/24 08/03/24 Range/Units 06:50 06:50 WBC 16.2 H (3.8-10.6) k/uL RBC 3.46 L (3.80-5.40) m/uL Hgb 11.0 L (11.4-16.0) gm/dL RDW 16.0 H (11.5-15.5) % Neutrophils # 14.3 H (1.3-7.7) k/uL Chloride (98-107) mmol/L Carbon Dioxide 33 H (22-30) mmol/L BUN 32 H (7-17) mg/dL Creatinine 1.29 H (0.52-1.04) mg/dL Glucose 130 H (74-99) mg/dL Calcium 8.2 L (8.4-10.2) mg/dL Magnesium (1.6-2.3) mg/dL AST 106 H (14-36) U/L ALT 44 H (4-34) U/L Alkaline Phosphatase 355 H (38-126) U/L Albumin 3.3 L (3.5-5.0) g/dL Lipase (23-300) U/L
[2024-08-03] MEDS: BUMETANIDE 1 MG TAB PO SCH (16:18)
[2024-08-03 17:02] LABS: Glucose,Whole Blood 127 mg/dL (70-110)
[2024-08-03 20:03] LABS: Glucose,Whole Blood 254 mg/dL (70-110)
[2024-08-03] MEDS: traZODone HCL 100 MG TAB PO SCH (21:43)
[2024-08-03] MEDS: DULoxetine HCL 60 MG CAPSULE.DR PO SCH (21:43)
[2024-08-03] MEDS: INSULIN DETEMIR (LEVEMIR) 100 UNIT/ML SYR SQ SCH (21:43)
[2024-08-03] MEDS: ATORVASTATIN 80 MG TAB PO SCH (21:43)
[2024-08-03] MEDS: AMOXIC-POT CLAV 875-125MG 1 EACH TAB PO SCH (21:43)
[2024-08-03 22:30] LABS: Anisocytosis Slight; Basophils % (A) 0 %; Eosinophils # (A) 0.2 k/uL (0-0.7); Eosinophils % (A) 2 %; HCT 32.4 % (34.0-46.0); HGB 10.3 gm/dL (11.4-16.0); Hypochromasia Marked; Lymphocytes # (A) 1.4 k/uL (1.0-4.8); Lymphocytes % (A) 13 %; MCH 31.7 pg (25.0-35.0); MCHC 31.6 g/dL (31.0-37.0); MCV 100.3 fL (80.0-100.0); Macrocytosis Slight; Mean Platelet Volume 9.3; Monocytes # (A) 0.3 k/uL (0-1.0); Monocytes % (A) 3 %; Neutrophils # (A) 8.8 k/uL (1.3-7.7); Neutrophils % (A) 82 %; Platelet Count 173 k/uL (150-450); RBC 3.23 m/uL (3.80-5.40); RDW 16.5 % (11.5-15.5); WBC 10.8 k/uL (3.8-10.6)
[2024-08-04 01:48] LABS: Anisocytosis Slight; Basophils % (A) 0 %; Eosinophils # (A) 0.2 k/uL (0-0.7); Eosinophils % (A) 2 %; HCT 32.2 % (34.0-46.0); Hypochromasia Marked; Lymphocytes # (A) 1.7 k/uL (1.0-4.8); Lymphocytes % (A) 17 %; MCH 31.1 pg (25.0-35.0); MCV 100.5 fL (80.0-100.0); Macrocytosis Slight; Mean Platelet Volume 9.3; Monocytes # (A) 0.4 k/uL (0-1.0); Monocytes % (A) 4 %; Neutrophils # (A) 7.7 k/uL (1.3-7.7); Neutrophils % (A) 76 %; Platelet Count 153 k/uL (150-450); RBC 3.21 m/uL (3.80-5.40); RDW 16.2 % (11.5-15.5); WBC 10.1 k/uL (3.8-10.6)
--- NOTE | 2024-08-04 03:09 | XR ---
EXAM: XR Chest, 1 View CLINICAL HISTORY: Increased oxygen demands TECHNIQUE: Frontal view of the chest. COMPARISON: CT abdomen and pelvis from today. FINDINGS: Lungs: Left basilar consolidations suggest atelectasis and/or pneumonia versus aspirations. Mild pulmonary edema suspected. Pleural space: Small left pleural effusion. Heart: Cardiomegaly. Mediastinum: Unremarkable. Normal mediastinal contour. Bones/joints: No acute findings. IMPRESSION: 1. Small left pleural effusion. 2. Left basilar consolidations suggest atelectasis and/or pneumonia versus aspirations. 3. Mild pulmonary edema suspected.
--- NOTE | 2024-08-04 03:44 | CT ---
EXAM: CT Abdomen and Pelvis Without Intravenous Contrast CLINICAL HISTORY: ITS.REASON CT Reason: active GI bleed TECHNIQUE: Axial computed tomography images of the abdomen and pelvis without intravenous contrast. CTDI is 28.6 mGy and DLP is 1664 mGy-cm. This CT exam was performed using one or more of the following dose reduction techniques: automated exposure control, adjustment of the mA and/or kV according to patient size, and/or use of iterative reconstruction technique. COMPARISON: No relevant prior studies available. FINDINGS: Limitations: Limited evaluation in the absence of contrast. Lung bases: Dependent scarring at the lung bases. Consolidation at the left lung base which may be due to infection/aspiration changes. Pleural space: Small left pleural effusion. Heart: Pericardial effusion measuring up to 1.3 cm. ABDOMEN: Liver: Unremarkable. Gallbladder and bile ducts: Unremarkable. No calcified stones. No ductal dilation. Pancreas: Unremarkable. No ductal dilation. Spleen: Unremarkable. No splenomegaly. Adrenals: Unremarkable. No mass. Kidneys and ureters: No evidence of radiopaque renal calculi or signs of collecting system dilatation. Stomach and bowel: Diffuse rectal wall thickening. Findings can be seen with proctitis. Consider correlation with laboratory values. No obstruction. PELVIS: Appendix: No findings to suggest acute appendicitis. Bladder: Unremarkable. No stones. Reproductive: Unremarkable as visualized. ABDOMEN and PELVIS: Intraperitoneal space: Unremarkable. No free air. No significant fluid collection. Bones/joints: Bilateral healing superior and inferior pubic rami fractures with additional healing fracture of the right hemisacrum. Degenerative changes in the spine. No dislocation. Soft tissues: Unremarkable. Vasculature: Atherosclerotic disease. No abdominal aortic aneurysm. Lymph nodes: Unremarkable. No enlarged lymph nodes. IMPRESSION: 1. Limited evaluation in the absence of contrast. 2. No evidence of radiopaque renal calculi or signs of collecting system dilatation. 3. Diffuse rectal wall thickening. Findings can be seen with proctitis. Consider correlation with laboratory values. 4. Bilateral healing superior and inferior pubic rami fractures with additional healing fracture of the right hemisacrum. 5. If there is further concern for intraluminal hemorrhage, consider multiphasic or scintigraphic imaging. 6. Other incidental findings as described.
[2024-08-04 05:34] LABS: Anisocytosis Slight; Basophils % (A) 0 %; Eosinophils # (A) 0.3 k/uL (0-0.7); Eosinophils % (A) 3 %; Hypochromasia Marked; Lymphocytes # (A) 1.5 k/uL (1.0-4.8); Lymphocytes % (A) 14 %; MCH 31.7 pg (25.0-35.0); MCHC 31.3 g/dL (31.0-37.0); MCV 101.1 fL (80.0-100.0); Macrocytosis Slight; Mean Platelet Volume 9.2; Monocytes # (A) 0.4 k/uL (0-1.0); Monocytes % (A) 4 %; Neutrophils # (A) 8.1 k/uL (1.3-7.7); Neutrophils % (A) 78 %; Platelet Count 149 k/uL (150-450); RBC 3.17 m/uL (3.80-5.40); RDW 16.1 % (11.5-15.5); WBC 10.4 k/uL (3.8-10.6)
[2024-08-04 06:05] LABS: African American GFR (CKD) 58 (>60 ml/min/1.73 sqM); Anion Gap 8 mmol/L; Blood Urea Nitrogen 31 mg/dL (7-17); Calcium 8.1 mg/dL (8.4-10.2); Carbon Dioxide 30 mmol/L (22-30); Chloride 101 mmol/L (98-107); Glucose 75 mg/dL (74-99); Non-African American GFR(CKD) 51 (>60 ml/min/1.73 sqM); Potassium 4.2 mmol/L (3.5-5.1); Sodium 139 mmol/L (137-145)
[2024-08-04 06:20] LABS: Glucose,Whole Blood 67 mg/dL (70-110)
--- NOTE | 2024-08-04 06:33 | P.CNPUL ---
History of Present Illness Consult date: 08/04/24 Requesting physician: Francisco Vela Reason for consult: other (Rectal bleeding) Chief complaint: rectal pain and bleeding History of present illness: Patient is a 69-year-old female with past medical history significant for coronary artery disease with previous PCI/stenting, recent KS, ischemic cardiomyopathy, hypertension, hyperlipidemia, factor V Leyden with previous DVT/PE, diabetes mellitus, neuropathy, hypothyroidism. Of note, patient is admitted earlier in July with non-ST elevation KS, received PCI/stenting to the mid LAD. Follow-up echocardiogram estimating left ventricular ejection fraction of 20 to 25%. She was discharged with LifeVest. Patient did have a readmission July 26 for acute CHF exacerbation. Eventually, discharged to [facility]. Patient is currently being evaluated emergency department room 22. She is lethargic. Will awaken and answers simple questions. She is an overall poor historian. HPI supplemented by who is at bedside. Apparently, patient was at [facility] when she developed severe constipation well as, rectal pain. According to the , last normal bowel movement was approximately 2 weeks ago. Denies any current abdominal pain. Patient has intermittent nausea without emesis. Denies hematemesis. Does chronically take oxycodone for back pain. While at outside facility, a digital disimpaction was attempted. Patient de veloped rectal bleeding with blood clots. She was sent to the emergency department on August 02. Patient continued to have rectal bleeding with clots. For this reason, and ICU consult was placed. On my evaluation, patient continues to have intermittent rectal pain, describes it as spasmodic. Rectal bleeding has subsided. Patient's denies any blood thinners. She does take Plavix and aspirin outpatient basis. She did recently have stenting of her mid LAD. Blood pressures remained stable. She has not required any PRBC transfusions. Not requiring any vasopressors. Most recent CBC: WBC count 10.8, hemoglobin 10.3, hematocrit 32.4, platelets 173. Most recent CMP from earlier: Sodium 140, potassium 4.3, chloride 101, serum bicarb 33, BUN 32, creatinine 1.29, glucose 130. LFTs mildly elevated. Total bilirubin 0.7. Current vitals: Temperature 98.6 F, heart rate 70 bpm, blood pressure 97/47 mmHg, SpO2 is 100% on 4 L/min nasal cannula. Patient is nontachypneic. Abdominal/pelvis CAT scan showing large stool burden within the rectum and throughout the colon. Fecal di simpaction was recommended. Bilateral inferior and superior pubic rami fractures with healing changes. Pancreatic lipomatosis. General surgery is consulted. Review of Systems Constitutional: Reports lethargy, Denies chills, Denies fever, Denies poor appetite, Denies weight gain, Denies weight loss Ears, nose, mouth and throat: Denies dysphagia, Denies nasal congestion, Denies nasal discharge, Denies sinus pain, Denies sinus pressure Cardiovascular: Denies chest pain, Denies leg edema, Denies lightheadedness, Denies orthopnea, Denies palpitations, Denies paroxysmal nocturnal dyspnea, Denies shortness of breath Respiratory: Reports home oxygen, Denies congestion, Denies cough, Denies dyspnea, Denies excessive sputum, Denies respiratory infections Gastrointestinal: Reports constipation, Reports hematochezia, Reports loss of appetite, Reports nausea, Denies abdominal pain, Denies coffee ground emesis, Denies diarrhea, Denies hematemesis, Denies vomiting Genitourinary: Reports incomplete emptying, Denies dysuria, Denies flank pain, Denies hematuria Musculoskeletal: Denies limitation of motion Integumentary: Denies rash, Denies sores Neurological: Denies head injury, Denies headaches, Denies seizures, Denies syncope Psychiatric: Reports anxiety, Reports depression, Denies suicidal ideation Past Medical History Past Medical History: Blood Disorder, Cancer, Diabetes Mellitus, Deep Vein Thrombosis (DVT), GERD/Reflux, Hyperlipidemia, Hypertension, Myocardial Infarcti on (KS), Neurologic Disorder, Osteoarthritis (OA), Pulmonary Embolus (PE), Thyroid Disorder Additional Past Medical History / Comment(s): Factor 5 leiden, DVT L leg, PE L lung, MIs x 5, palpitations, IDDM type II, neuropathy bilateral legs/feet, lymphedema L leg, charcot syndrome L foot, chronic low back pain, bilateral sciatica,hx bronchitis, anemia, hypothyroid, hx UTI, IBS, sinus problems, worsening tremors, "stomach shivering inside" plans to f/u with pcp. skin can cer removal. hx of pneumonia long ago, pelvic fx Last Myocardial Infarction Date:: January 2020 History of Any Multi-Drug Resistant Organisms: VRE Date of last positivie culture/infection: 08/24/23 MDRO Source:: Urine Past Surgical History: Appendectomy, Cholecystectomy, Heart Catheterization With Stent, Hernia Repair, Hysterectomy, Tonsillectomy Additional Past Surgical History / Comment(s): Bilateral salpingectomy, bilateral oophorectomy, abdominal hernia surgeries, L foot fracture, bilateral cataract removals, epidural injections with last on 01/20/20 lumbar, LAST PROCEDURE 04/19/21 Past Anesthesia/Blood Transfusion Reactions: No Reported Reaction Additional Past Anesthesia/Blood Transfusion Reaction / Comment(s): Pt has received blood in past without reaction. Date of Last Stent Placement:: January 2020 Past Psychological History: Anxiety, Depression, Panic Disorder Smoking Status: Never smoker Past Alcohol Use History: None Reported Past Drug Use History: None Reported - Past Family History Mother Family Medical History: COPD Additional Family Medical History / Comment(s): Mother was a smoker. Father Family Medical History: Cancer Additional Family Medical History / Comment(s): Lung cancer. Father was a smoker. Son(s) Family Medical History: Deep Vein Thrombosis (DVT) Medications and Allergies Home Medications Medication Instructions Recorded Confirmed Type Clopidogrel [Plavix] 75 mg PO DAILY 07/07/19 08/03/24 History traZODone HCL [Desyrel] 200 mg PO HS 07/07/19 08/03/24 History Insulin Glargine,Hum.rec.anlog 60 units SQ BID 06/09/21 08/03/24 History [Lantus Solostar Pen] Levothyroxine Sodium [Synthroid] 300 mcg PO DAILY 08/30/21 08/03/24 History Insulin Lispro [humaLOG Kwikpen] See Protocol SQ AC-TID 09/21/23 08/03/24 History DULoxetine HCL [Cymbalta] 60 mg PO BID 07/15/24 08/03/24 History Aspirin 81 mg PO DAILY #30 tab 07/25/24 08/03/24 Rx Atorvastatin [Lipitor] 80 mg PO HS #30 tab 07/25/24 08/03/24 Rx Cyanocobalamin [Vitamin B-12] 1,000 mcg PO DAILY #30 tab 07/25/24 08/03/24 Rx Nitroglycerin Sl Tabs [Nitrostat] 0.4 mg SUBLINGUAL Q5M PRN #30 tab 07/25/24 08/03/24 Rx Spironolactone [Aldactone] 25 mg PO DAILY #30 tab 07/25/24 08/03/24 Rx Albuterol Inhaler [Ventolin Hfa 2 puff INHALATION RT-Q6H PRN 07/26/24 08/03/24 History Inhaler] ALPRAZolam [Xanax] 2 mg PO TID PRN 2 Days #6 tab 07/31/24 08/03/24 Rx Amoxic-Pot Clav 875-125Mg 1 tab PO BID 3 Days #6 tab 07/31/24 08/03/24 Rx [Augmentin 875-125] Bumetanide [BUMEX] 1 mg PO BID@0900,1600 30 Days #30 07/31/24 08/03/24 Rx tab Dapagliflozin Propanediol [Farxiga] 10 mg PO DAILY #30 tab 07/31/24 08/03/24 Rx Losartan [Cozaar] 25 mg PO DAILY #30 tab 07/31/24 08/03/24 Rx Metoprolol Succinate (ER) [Toprol 50 mg PO DAILY 30 Days #30 tab 07/31/24 08/03/24 Rx XL] oxyCODONE HCL [oxyCODONE HCL (IR)] 10 mg PO TID PRN 08/03/24 08/03/24 History Allergies Allergy/AdvReac Type Severity Reaction Status Date / Time Iodinated Contrast Media Allergy Rash/Hives Verified 08/03/24 10:00 Iodine and Iodide Containing Allergy Rash/Hives Verified 08/03/24 10:00 Produc liraglutide [From Saxenda] AdvReac Unknown Nausea & Verified 08/03/24 10:00 Vomiting NSAIDS (Non-Steroidal AdvReac Unknown Nausea & Verified 08/03/24 10:00 Anti-Inflamma Vomiting aspirin AdvReac Nausea & Verified 08/03/24 10:00 Vomiting with high doses azithromycin AdvReac Vomiting Verified 08/03/24 10:00 naproxen [From Naprosyn] AdvReac Nausea & Verified 08/03/24 10:00 Vomiting Physical Exam Vitals: Vital Signs Temp Pulse Resp BP Pulse Ox FiO2 08/03/24 19:50 98.6 F 73 18 97/47 100 08/03/24 17:24 100 08/03/24 14:41 97.9 F 82 18 114/62 95 08/03/24 08:10 98 F 72 18 99/40 96 08/03/24 06:00 79 18 109/55 96 Intake and Output 08/03/24 08/03/24 08/04/24 14:59 22:59 06:59 Intake Total 475 375 Output Total 1 2 2 Balance -1 473 373 Intake: Intake, IV Titration 225 375 Amount Sodium Chloride 0.9% 1, 225 375 000 ml @ 75 mls/hr IV . [id number] [facility] Rx#:[id number] Oral 250 Output: Urine 1 2 2 Other: Voiding Method Diaper Diaper Incontinent Incontinent # Bowel Movements 2 GENERAL EXAM: Lethargic, 6-year-old obese female, laying on her left side HEAD: Normocephalic and atraumatic EYES: Normal reaction of pupils, equal size. NOSE: Clear with pink turbinates. THROAT: No erythema or exudates. NECK: No masses, no JVD. CHEST: No chest wall deformity. LUNGS: Equal air entry with no crackles, wheeze, rhonchi or dullness. On 4 L/min nasal cannula, SpO2 100%. No conversational dyspnea or accessory muscle use.. CVS: S1 and S2 normal with no audible murmur, regular rhythm. No extra heart sounds ABDOMEN: Obese abdomen, active bowel sounds, no hepatosplenomegaly or masses, no guarding or rigidity. SPINE: No scoliosis or deformity SKIN: No rashes. Small external hemorrhoids noted CENTRAL NERVOUS SYSTEM: No focal deficits, tone is normal in all 4 extremities. EXTREMITIES: There is no peripheral edema, clubbing, or cyanosis. Peripheral pulses are intact. Results - Laboratory Findings CBC and BMP: 08/04/24 04:51 08/04/24 04:51 PT/INR, D-dimer PT 11.7 sec (10.0-12.5) 08/02/24 21:04 INR 1.1 (<1.2) 08/02/24 21:04 Abnormal lab findings: Abnormal Labs 08/02/24 08/02/24 08/02/24 21:04 21:04 21:04 WBC 13.9 H RBC Hgb Hct MCV RDW 16.1 H Neutrophils # 11.5 H Chloride 97 L Carbon Dioxide 31 H BUN 34 H Creatinine 1.27 H Glucose 145 H POC Glucose (mg/dL) Calcium Magnesium 2.6 H AST 109 H ALT 38 H Alkaline Phosphatase 421 H Albumin Lipase 19 L 08/03/24 08/03/24 08/03/24 06:50 06:50 12:48 WBC 16.2 H RBC 3.46 L Hgb 11.0 L Hct MCV RDW 16.0 H Neutrophils # 14.3 H Chloride Carbon Dioxide 33 H BUN 32 H Creatinine 1.29 H Glucose 130 H POC Glucose (mg/dL) 135 H Calcium 8.2 L Magnesium AST 106 H ALT 44 H Alkaline Phosphatase 355 H Albumin 3.3 L Lipase 08/03/24 08/03/24 08/03/24 17:01 19:54 22:19 WBC 10.8 H RBC 3.23 L Hgb 10.3 L Hct 32.4 L MCV 100.3 H RDW 16.5 H Neutrophils # 8.8 H Chloride Carbon Dioxide BUN Creatinine Glucose POC Glucose (mg/dL) 127 H 254 H Calcium Magnesium AST ALT Alkaline Phosphatase Albumin Lipase Assessment and Plan Assessment: Severe constipation and rectal bleeding, Abdominal/pelvis CAT scan showing large stool burden within the rectum and throughout the colon. Fecal disimpaction was recommended. General surgery is consulted Acute on chronic hypoxemic respiratory failure, currently on 4 L/min nasal cannula History of severe ischemic cardiomyopathy, most recent echocardiogram done on her recent admission showing improved ejection fraction to 30 to 35%. History of heart failure with reduced ejection fraction Acute kidney injury, likely secondary to cardiorenal factors, creatinine has remained stable Coronary artery disease, with recent history of Non-ST elevation myocardial infarction, S/P PCI and stenting of her LAD, on 07/17/2024 History of hypertension History of hyperlipidemia. History of factor V Leyden with previous PE/DVT. Diabetes mellitus, type II, insulin-dependent Chronic lower back pain, chronically takes narcotics on outpatient basis Former smoker Plan: Patient's medications, labs, imaging reviewed Patient developed rectal bleeding with previous attempt at fecal disimpaction. General surgery is consulted Continue serial H&H, if hemoglobin remains stable, patient will not need ICU admission Transfuse PRBC for hemoglobin less than 7 g/dL Continue gentle hydration with normal saline at 75 mL/h, monitor fluid status Hemodynamics have remained stable Continue supplemental oxygen wean FiO2 to maintain oxygen saturation of 92% or greater, currently on 4 L/min nasal cannula. Obtain chest x-ray Consult cardiology, patient did recently have a stent placed to the mid LAD, currently maintained on dual antiplatelet medication, aspirin and Plavix. Will continue to follow I have personally seen and examined the patient, performed the documentation and the assessment and plan as written. Number of minutes spent on the visit:20 P Time with Patient: Greater than 30
[2024-08-04 07:03] LABS: Glucose,Whole Blood 74 mg/dL (70-110)
[2024-08-04] MEDS: CYANOCOBALAMIN 500 MCG TAB PO SCH (10:50)
[2024-08-04] MEDS: METOPROLOL SUCCINATE (ER) 50 MG TAB.ER.24H PO SCH (10:50)
[2024-08-04] MEDS: CLOPIDOGREL 75 MG TAB PO SCH (10:52)
[2024-08-04] MEDS: SPIRONOLACTONE 25 MG TAB PO SCH (10:54)
[2024-08-04] MEDS: DAPAGLIFLOZIN PROPANEDIOL 10 MG TABLET PO SCH (10:54)
--- NOTE | 2024-08-04 11:20 | P.CRDCN ---
History of Present Illness Consult date: 08/04/24 History of present illness: History of Present Illness: The patient is a 69-year-old female with history of CAD status post stenting of the LAD done on 17 July, she had prior stenting in 2019 at that time was found to have severe cardiomyopathy. She was readmitted to the hospital afterward and repeat echocardiogram showed mild improvement in the left ventricular systolic function with an ejection fraction of 30 to 35% with anteroapical hypokinesis. She presented to the emergency room with evidence of severe constipation, attempts for disimpaction were made but she had evidence of GI bleeding with large clots. The patient was transferred to the emergency room for further evaluation. At the time of my evaluation she denies any dyspnea or chest discomfort. She denies any dizziness or palpitations. She is quite limited in her physical activity and uses her walker. She has prior history of peripheral edema related to lymphedema. She has no history of PND or orthopnea. She is in sinus mechanism with no evidence of malignant arrhythmia. 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 Medications: Aspirin, Plavix 75 mg daily, spironolactone 25 mg daily, atorvastatin 80 mg daily, Farxiga 10 mg daily, Synthroid 300 mcg daily, metoprolol succinate 50 mg daily, losartan 25 mg daily, Cymbalta 60 mg twice a day, insulin, Bumex 1 mg twice a day. Review of Systems: Respiratory: She has chronic dyspnea on exertion and prior history of pulmonary embolism GI: She has chronic constipation and recent bleeding with disimpaction : No hematuria or dysuria. Nervous System: No stroke or seizure. Physical Examination: 69-year-old female, alert oriented no apparent distress,Blood pressure 123/50, Heart rate 84 Head: Normocephalic. Eyes: Sclerae nonicteric. Neck: Good carotid upstroke, no bruit, no jugular venous distention. Lungs: Clear to auscultation. Heart: Regular rate and rhythm, S1-S2, no S3, no rub. Systolic ejection murmur. Abdomen: Soft nontender, positive bowel sounds no organomegaly. Extremities: Trace edema, intact distal pulses. Labs: Hemoglobin of 10, BUN 31, creatinine 1.1. Chest x-ray with small pleural effusion. CT scan of the abdomen was limited and showed diffuse rectal wall thickening. Initial CT scan showed large stool burden EKG: Pending Impression: 1. Severe constipation with rectal bleeding during disimpaction, stable at this time, hemoglobin is stable 2. Status post recent stenting of the LAD 3. Severe ischemic cardiomyopathy with no acute heart failure 4. History of hypertension 5. History of hyperlipidemia 6. History of diabetes 7. History of factor V Leiden deficiency with prior history of pulmonary embolism and DVT Plan: 1. Continue treatment with aspirin and clopidogrel 2. Surgical consultation 3. Continue to follow hemoglobin 4. No evidence of acute fluid overload at this time 5. Depending on her progress further recommendations will be made, thank you for this consult we will follow with you Past Medical History Past Medical History: Blood Disorder, Cancer, Diabetes Mellitus, Deep Vein Thrombosis (DVT), GERD/Reflux, Hyperlipidemia, Hypertension, Myocardial Infarction ([place]), Neurologic Disorder, Osteoarthritis (OA), Pulmonary Embolus (PE), Thyroid Disorder Additional Past Medical History / Comment(s): Factor 5 leiden, DVT L leg, PE L lung, MIs x 5, palpitations, IDDM type II, neuropathy bilateral legs/feet, lymphedema L leg, charcot syndrome L foot, chronic low back pain, bilateral sciatica,hx bronchitis, anemia, hypothyroid, hx UTI, IBS, sinus problems, worsening tremors, "stomach shivering inside" plans to f/u with pcp. skin cancer removal. hx of pneumonia long ago, pelvic fx Last Myocardial Infarction Date:: January 2020 History of Any Multi-Drug Resistant Organisms: VRE Date of last positivie culture/infection: 08/24/23 MDRO Source:: Urine Past Surgical History: Appendectomy, Cholecystectomy, Heart Catheterization With Stent, Hernia Repair, Hysterectomy, Tonsillectomy Additional Past Surgical History / Comment(s): Bilateral salpingectomy, bilateral oophorectomy, abdominal hernia surgeries, L foot fracture, bilateral cataract removals, epidural injections with last on 01/20/20 lumbar, LAST PROCEDURE 04/19/21 Past Anesthesia/Blood Transfusion Reactions: No Reported Reaction Additional Past Anesthesia/Blood Transfusion Reaction / Comment(s): Pt has received blood in past without reaction. Date of Last Stent Placement:: January 2020 Past Psychological History: Anxiety, Depression, Panic Disorder Smoking Status: Never smoker Past Alcohol Use History: None Reported Past Drug Use History: None Reported - Past Family History Mother Family Medical History: COPD Additional Family Medical History / Comment(s): Mother was a smoker. Father Family Medical History: Cancer Additional Family Medical History / Comment(s): Lung cancer. Father was a smoker. Son(s) Family Medical History: Deep Vein Thrombosis (DVT) Medications and Allergies Home Medications Medication Instructions Recorded Confirmed Type Clopidogrel [Plavix] 75 mg PO DAILY 07/07/19 08/03/24 History traZODone HCL [Desyrel] 200 mg PO HS 07/07/19 08/03/24 History Insulin Glargine,Hum.rec.anlog 60 units SQ BID 06/09/21 08/03/24 History [Lantus Solostar Pen] Levothyroxine Sodium [Synthroid] 300 mcg PO DAILY 08/30/21 08/03/24 History Insulin Lispro [humaLOG Kwikpen] See Protocol SQ AC-TID 09/21/23 08/03/24 History DULoxetine HCL [Cymbalta] 60 mg PO BID 07/15/24 08/03/24 History Aspirin 81 mg PO DAILY #30 tab 07/25/24 08/03/24 Rx Atorvastatin [Lipitor] 80 mg PO HS #30 tab 07/25/24 08/03/24 Rx Cyanocobalamin [Vitamin B-12] 1,000 mcg PO DAILY #30 tab 07/25/24 08/03/24 Rx Nitroglycerin Sl Tabs [Nitrostat] 0.4 mg SUBLINGUAL Q5M PRN #30 tab 07/25/24 08/03/24 Rx Spironolactone [Aldactone] 25 mg PO DAILY #30 tab 07/25/24 08/03/24 Rx Albuterol Inhaler [Ventolin Hfa 2 puff INHALATION RT-Q6H PRN 07/26/24 08/03/24 History Inhaler] ALPRAZolam [Xanax] 2 mg PO TID PRN 2 Days #6 tab 07/31/24 08/03/24 Rx Amoxic-Pot Clav 875-125Mg 1 tab PO BID 3 Days #6 tab 07/31/24 08/03/24 Rx [Augmentin 875-125] Bumetanide [BUMEX] 1 mg PO BID@0900,1600 30 Days #30 07/31/24 08/03/24 Rx tab Dapagliflozin Propanediol [Farxiga] 10 mg PO DAILY #30 tab 07/31/24 08/03/24 Rx Losartan [Cozaar] 25 mg PO DAILY #30 tab 07/31/24 08/03/24 Rx Metoprolol Succinate (ER) [Toprol 50 mg PO DAILY 30 Days #30 tab 07/31/24 08/03/24 Rx XL] oxyCODONE HCL [oxyCODONE HCL (IR)] 10 mg PO TID PRN 08/03/24 08/03/24 History Allergies Allergy/AdvReac Type Severity Reaction Status Date / Time Iodinated Contrast Media Allergy Rash/Hives Verified 08/03/24 10:00 Iodine and Iodide Containing Allergy Rash/Hives Verified 08/03/24 10:00 Produc liraglutide [From Saxenda] AdvReac Unknown Nausea & Verified 08/03/24 10:00 Vomiting NSAIDS (Non-Steroidal AdvReac Unknown Nausea & Verified 08/03/24 10:00 Anti-Inflamma Vomiting aspirin AdvReac Nausea & Verified 08/03/24 10:00 Vomiting with high doses azithromycin AdvReac Vomiting Verified 08/03/24 10:00 naproxen [From Naprosyn] AdvReac Nausea & Verified 08/03/24 10:00 Vomiting Physical Exam Vitals: Vital Signs Temp Pulse Pulse Resp BP BP Pulse Ox 08/04/24 08:00 97.9 F 84 28 H 123/50 95 08/04/24 07:00 70 15 90/37 95 08/04/24 06:00 75 21 98/47 95 08/04/24 05:00 68 22 99/47 95 08/04/24 04:00 98.6 F 81 14 75/25 95 08/04/24 03:00 68 21 112/67 98 08/04/24 02:00 81 15 108/46 95 08/04/24 01:00 73 18 93/35 96 08/04/24 00:00 98.2 F 72 18 99/38 97 08/03/24 23:58 73 18 99/38 96 08/03/24 19:50 98.6 F 73 18 97/47 100 08/03/24 17:24 08/03/24 14:41 97.9 F 82 18 114/62 95 FiO2 08/04/24 08:00 08/04/24 07:00 08/04/24 06:00 08/04/24 05:00 08/04/24 04:00 08/04/24 03:00 08/04/24 02:00 08/04/24 01:00 08/04/24 00:00 08/03/24 23:58 08/03/24 19:50 08/03/24 17:24 100 08/03/24 14:41 Intake and Output 08/03/24 08/04/24 08/04/24 22:59 06:59 14:59 Intake Total 475 725 Output Total 2 5 Balance 473 720 Intake: Intake, IV Titration 225 600 Amount Sodium Chloride 0.9% 1, 225 600 000 ml @ 75 mls/hr IV . [id number] [facility] Rx#:[id number] Oral 250 125 Output: Urine 2 5 Other: Voiding Method Diaper Diaper Incontinent Incontinent # Bowel Movements 2 1 Results 08/04/24 04:51 08/04/24 04:51 CBC 08/03/24 08/04/24 08/04/24 Range/Units 22:19 01:09 04:51 WBC 10.8 H 10.1 10.4 (3.8-10.6) k/uL RBC 3.23 L 3.21 L 3.17 L (3.80-5.40) m/uL Hgb 10.3 L 10.0 L 10.0 L (11.4-16.0) gm/dL Hct 32.4 L 32.2 L 32.0 L (34.0-46.0) % Plt Count 173 153 149 L (150-450) k/uL Comprehensive Metabolic Panel 08/04/24 Range/Units 04:51 Sodium 139 (137-145) mmol/L Potassium 4.2 (3.5-5.1) mmol/L Chloride 101 (98-107) mmol/L Carbon Dioxide 30 (22-30) mmol/L BUN 31 H (7-17) mg/dL Creatinine 1.11 H (0.52-1.04) mg/dL Glucose 75 (74-99) mg/dL Calcium 8.1 L (8.4-10.2) mg/dL Current Medications Generic Name Dose Route Start Last Admin Trade Name Freq PRN Reason Stop Dose Admin Albuterol Sulfate 2 puff 08/03/24 11:15 Albuterol Hfa Inhaler INHALATION RT-Q6H PRN Shortness Of Breath Alprazolam 2 mg 08/03/24 11:15 08/04/24 06:39 Alprazolam 1 Mg Tab PO 2 mg TID PRN Administration Anxiety Amoxicillin/Clavulanate Potassium 1 each 08/03/24 21:00 08/04/24 10:45 Amoxic-Pot Clav 875-125mg 1 Each Tab PO 1 each BID FLO Administration Protocol Aspirin 81 mg 08/03/24 11:15 08/04/24 10:52 Aspirin 81 Mg PO 81 mg DAILY FLO Administration Atorvastatin Calcium 80 mg 08/03/24 21:00 08/03/24 21:43 Atorvastatin 80 Mg Tab PO 80 mg HS [facility] Administration Bumetanide 1 mg 08/03/24 16:00 08/04/24 10:54 Bumetanide 1 Mg Tab PO Not Given BID@0900,1600 [facility] Clopidogrel Bisulfate 75 mg 08/04/24 09:00 08/04/24 10:52 Clopidogrel 75 Mg Tab PO 75 mg DAILY [facility] Administration Cyanocobalamin 1,000 mcg 08/04/24 09:00 08/04/24 10:50 Cyanocobalamin 500 Mcg Tab PO 1,000 mcg DAILY [facility] Administration Dapagliflozin 10 mg 08/04/24 09:00 08/04/24 10:54 Dapagliflozin Propanediol 10 Mg Tablet PO 10 mg DAILY [facility] Administration Dextrose/Water 25 ml 08/03/24 11:20 Dextrose 50% Syringe 50 Ml IVP PER PROTOCOL PRN Hypoglycemia Protocol Dextrose/Water 50 ml 08/03/24 11:20 Dextrose 50% Syringe 50 Ml IVP PER PROTOCOL PRN Hypoglycemia Protocol Docusate Sodium 100 mg 08/03/24 11:30 08/04/24 10:51 Docusate 100 Mg Cap PO 100 mg BID [facility] Administration Duloxetine HCl 60 mg 08/03/24 21:00 08/04/24 10:54 Duloxetine Hcl 60 Mg Capsule.Dr PO 60 mg BID [facility] Administration Insulin Aspart 0 unit 08/03/24 12:30 08/04/24 06:26 Insulin Aspart (Novolog) 100 Unit/Ml Vial SQ Not Given ACHS [facility] Protocol Insulin Detemir 60 unit 08/03/24 21:00 08/04/24 06:26 Insulin Detemir (Levemir) 100 Unit/Ml Syr SQ Not Given BID@0700,2100 [facility] Levothyroxine Sodium 300 mcg 08/03/24 11:30 08/04/24 06:40 Levothyroxine 100 Mcg Tab PO 300 mcg DAILY@0630 [facility] Administration Losartan Potassium 25 mg 08/03/24 11:30 08/04/24 10:54 Losartan 25 Mg Tab PO Not Given DAILY [facility] Metoprolol Succinate 50 mg 08/04/24 09:00 08/04/24 10:50 Metoprolol Succinate (Er) 50 Mg Tab.Er.24h PO 50 mg DAILY [facility] Administration Naloxone HCl 0.2 mg 08/02/24 22:25 Naloxone 0.4 Mg/Ml 1 Ml Vial IV Q2M PRN Opioid Reversal Nitroglycerin 0.4 mg 08/03/24 11:15 Nitroglycerin Sl Tabs 0.4 Mg Tab SUBLINGUAL Q5M PRN Chest Pain Ondansetron HCl 4 mg 08/02/24 22:25 Ondansetron 4 Mg/2 Ml Vial IVP Q8HR PRN Nausea And Vomiting Oxycodone HCl 10 mg 08/03/24 15:49 08/04/24 06:40 Oxycodone Hcl 5 Mg Tab PO 10 mg TID PRN Administration Pain Pantoprazole Sodium 40 mg 08/03/24 09:00 08/04/24 10:42 Pantoprazole 40 Mg/10 Ml Vial IV 40 mg DAILY [facility] Administration Polyethylene Glycol 17 gm 08/03/24 11:30 08/04/24 10:43 Polyethylene Glycol 3350 17 Gm Powd.Pack PO 17 gm DAILY [facility] Administration Spironolactone 25 mg 08/04/24 09:00 08/04/24 10:54 Spironolactone 25 Mg Tab PO Not Given DAILY [facility] Trazodone HCl 200 mg 08/03/24 21:00 08/03/24 21:43 Trazodone Hcl 100 Mg Tab PO 200 mg HS [facility] Administration Intake and Output 08/03/24 08/04/24 08/04/24 22:59 06:59 14:59 Intake Total 475 725 Output Total 2 5 Balance 473 720 Intake: Intake, IV Titration 225 600 Amount Sodium Chloride 0.9% 1, 225 600 000 ml @ 75 mls/hr IV . [id number] [facility] Rx#:[id number] Oral 250 125 Output: Urine 2 5 Other: Voiding Method Diaper Diaper Incontinent Incontinent # Bowel Movements 2 1 08/04/24 04:51 08/04/24 04:51
[2024-08-04 12:10] LABS: Anisocytosis Slight; HCT 31.4 % (34.0-46.0); HGB 9.9 gm/dL (11.4-16.0); Hypochromasia Marked; MCH 31.4 pg (25.0-35.0); MCHC 31.5 g/dL (31.0-37.0); MCV 99.6 fL (80.0-100.0); Macrocytosis Slight; Mean Platelet Volume 9.2; Platelet Count 159 k/uL (150-450); RBC 3.15 m/uL (3.80-5.40); WBC 10.3 k/uL (3.8-10.6)
--- NOTE | 2024-08-04 13:38 | P.PN ---
Subjective Progress Note Date: 08/04/24 patient 69-year-old lady with past medical history significant for systolic CHF, hypertension, hyperlipidemia, diabetes, coronary artery disease who presented the ER for abdominal pain and constipation. Patient was discharged to rehab facility 3 to 4 days ago after being treated for altered mental status and CHF exacerbation. Patient was was having abdominal pain at the facility, abdominal pain was generalized, associate with nausea and vomiting. Patient did not have a bowel the last couple of days. Patient did have a bowel movement before discharge during last admission. There was no complaint of fever or chills. There was no complaint of chest pain or shortness of breath. Because of the symptoms, patient brought to the ER Initial lab work done in the ER showed WBC 13.9, hemoglobin 12.4, platelet count 215, sodium 139, potassium 4.1, BUN 34, creatinine 1.27, glucose 105, magnesium 2.6, AST 109, ALT 38 CT dominant pelvis done showed large stool burden within the rectum and throughout the colon fecal disimpaction recommended, bilateral inferior and superior pubic rami fracture with healing changes. Patient admitted to internal medicine service 08/04. Patient seen and examined. Patient had bleeding per rectum overnight. Hemoglobin remained stable at 10. Patient did have multiple bowel movements yesterday. Complaining of pain in the rectal area. REVIEW OF SYSTEMS: CONSTITUTIONAL: No fever, no malaise,. CARDIOVASCULAR: No chest pain, no palpitations, no syncope. PULMONARY: No shortness of breath, no cough, GASTROINTESTINAL: No diarrhea, no nausea, no vomiting, no abdominal pain. NEUROLOGICAL: No headaches, no weakness, PHYSICAL EXAMINATION: GENERAL: The patient is alert and oriented x3, ill looking HEENT: Pupils are round and equally reacting to light. EOMI. No scleral icterus. No conjunctival pallor. Normocephalic, atraumatic. No pharyngeal erythema. No thyromegaly. CARDIOVASCULAR: S1 and S2 present. No murmurs, rubs, or gallops. PULMONARY: Good air entry bilaterally, no wheezing or crackles. ABDOMEN: Soft, nontender, nondistended, normoactive bowel sounds. No palpable organomegaly. MUSCULOSKELETAL: No joint swelling or deformity. EXTREMITIES: No cyanosis, clubbing, 1+ pitting edema lower extremities bilaterally NEUROLOGICAL: Gross neurological examination did not reveal any focal deficits. SKIN: No rashes. Assessment and plan Abdominal pain GI bleed Constipation chronic congestive heart failure systolic dysfunction Ischemic cardiomyopathy with a EF of 20 to 25% --> EF 35% Coronary artery disease with previous stenting of the LAD Hyponatremia Hyperkalemia Hyperglycemia Known moderate disease of the RCA Hypertension Hyperlipidemia Diabetes with hyperglycemia Obesity Monitor vital signs Monitor CBC Monitor CMP Aggressive bowel regimen Monitor H&H DC fluids as patient history of CHF with EF of 35% Strict I's and O's, daily weights Continue Bumex Hold aspirin and Plavix Monitor blood sugar level, continue on insulin regimen Continue Farxiga, Aldactone Surgery following Pulmonology following cardiology following Labs and medication were reviewed.. Continue same treatment. Continue with symptomatic treatment. Resume home medication. Monitor labs and vitals. DVT and GI prophylaxis. Further recommendations as per clinical course of the patient Dictation was produced using [employer] dictation software. please excuse any grammatical, word or spelling errors. Objective - Vital Signs Vital signs: Vital Signs Temp 97.9 F 08/04/24 08:00 Pulse 84 08/04/24 08:00 Resp 28 H 08/04/24 08:00 BP 123/50 08/04/24 08:00 Pulse Ox 95 08/04/24 08:00 FiO2 100 08/03/24 17:24 Intake & Output 08/03/24 08/04/24 08/04/24 18:59 06:59 18:59 Intake Total 1200 Output Total 1 7 Balance -1 1193 Intake: Intake, IV Titration 825 Amount Sodium Chloride 0.9% 1, 825 000 ml @ 75 mls/hr IV . [id number] [facility] Rx#:[id number] Oral 375 Output: Urine 1 7 Other: Voiding Method Diaper Diaper Incontinent Incontinent # Bowel Movements 1 - Labs CBC & Chem 7: 08/04/24 11:37 08/04/24 04:51 Labs: Abnormal Lab Results - Last 24 Hours (Table) 08/03/24 08/03/24 08/03/24 Range/Units 12:48 17:01 19:54 WBC (3.8-10.6) k/uL RBC (3.80-5.40) m/uL Hgb (11.4-16.0) gm/dL Hct (34.0-46.0) % MCV (80.0-100.0) fL RDW (11.5-15.5) % Plt Count (150-450) k/uL Neutrophils # (1.3-7.7) k/uL BUN (7-17) mg/dL Creatinine (0.52-1.04) mg/dL POC Glucose (mg/dL) 135 H 127 H 254 H (70-110) mg/dL Calcium (8.4-10.2) mg/dL 08/03/24 08/04/24 08/04/24 Range/Units 22:19 01:09 04:51 WBC 10.8 H (3.8-10.6) k/uL RBC 3.23 L 3.21 L 3.17 L (3.80-5.40) m/uL Hgb 10.3 L 10.0 L 10.0 L (11.4-16.0) gm/dL Hct 32.4 L 32.2 L 32.0 L (34.0-46.0) % MCV 100.3 H 100.5 H 101.1 H (80.0-100.0) fL RDW 16.5 H 16.2 H 16.1 H (11.5-15.5) % Plt Count 149 L (150-450) k/uL Neutrophils # 8.8 H 8.1 H (1.3-7.7) k/uL BUN (7-17) mg/dL Creatinine (0.52-1.04) mg/dL POC Glucose (mg/dL) (70-110) mg/dL Calcium (8.4-10.2) mg/dL 08/04/24 08/04/24 Range/Units 04:51 06:18 WBC (3.8-10.6) k/uL RBC (3.80-5.40) m/uL Hgb (11.4-16.0) gm/dL Hct (34.0-46.0) % MCV (80.0-100.0) fL RDW (11.5-15.5) % Plt Count (150-450) k/uL Neutrophils # (1.3-7.7) k/uL BUN 31 H (7-17) mg/dL Creatinine 1.11 H (0.52-1.04) mg/dL POC Glucose (mg/dL) 67 L (70-110) mg/dL Calcium 8.1 L (8.4-10.2) mg/dL
[2024-08-04 14:56] LABS: Glucose,Whole Blood 77 mg/dL (70-110)
[2024-08-04 17:27] LABS: Glucose,Whole Blood 69 mg/dL (70-110)
--- NOTE | 2024-08-04 17:52 | P.CON ---
Consult Note - . Consult date: 08/04/24 Assessment/Plan:: 69-year-old lady with past medical history significant for systolic CHF, hypertension, hyperlipidemia, diabetes, coronary artery disease who presented the ER for abdominal pain and constipation. Patient was discharged to rehab facility 3 to 4 days ago after being treated for altered mental status and CHF exacerbation. Patient was was having abdominal pain at the facility, abdominal pain was generalized, associate with nausea and vomiting. Patient did not have a bowel the last couple of days. Patient did have a bowel movement before discharge during last admission. There was no complaint of fever or chills. There was no complaint of chest pain or shortness of breath. CT-AP done showed large stool burden within the rectum and throughout the colon. Review of Systems ROS Statement: Those systems with pertinent positive or pertinent negative responses have been documented in the HPI. Past Medical History Past Medical History: Blood Disorder, Cancer, Diabetes Mellitus, Deep Vein Thrombosis ([place]), GERD/Reflux, Hyperlipidemia, Hypertension, Myocardial Infarction ([place]), Neurologic Disorder, Osteoarthritis ([place]), Pulmonary Embolus ([place]), Thyroid Disorder Additional Past Medical History / Comment(s): Factor 5 leiden, DVT L leg, PE L lung, MIs x 5, palpitations, IDDM type II, neuropathy bilateral legs/feet, lymphedema L leg, charcot syndrome L foot, chronic low back pain, bilateral sciatica,hx bronchitis, anemia, hypothyroid, hx UTI, IBS, sinus problems, worsening tremors, "stomach shivering inside" plans to f/u with pcp. skin cancer removal. hx of pneumonia long ago, pelvic fx Last Myocardial Infarction Date:: January 2020 History of Any Multi-Drug Resistant Organisms: VRE Date of last positivie culture/infection: 08/24/23 MDRO Source:: Urine Past Surgical History: Appendectomy, Cholecystectomy, Heart Catheterization With Stent, Hernia Repair, Hysterectomy, Tonsillectomy Additional Past Surgical History / Comment(s): Bilateral salpingectomy, bilateral oophorectomy, abdominal hernia surgeries, L foot fracture, bilateral cataract removals, epidural injections with last on 01/20/20 lumbar, LAST PROCEDURE 04/19/21 Past Anesthesia/Blood Transfusion Reactions: No Reported Reaction Additional Past Anesthesia/Blood Transfusion Reaction / Comment(s): Pt has received blood in past without reaction. Date of Last Stent Placement:: January 2020 Past Psychological History: Anxiety, Depression, Panic Disorder Smoking Status: Never smoker Past Alcohol Use History: None Reported Past Drug Use History: None Reported - Past Family History Mother Family Medical History: COPD Additional Family Medical History / Comment(s): Mother was a smoker. Father Family Medical History: Cancer Additional Family Medical History / Comment(s): Lung cancer. Father was a smoker. Son(s) Family Medical History: Deep Vein Thrombosis (DVT) General Exam General appearance: alert, in no apparent distress Head exam: Present: atraumatic, normocephalic, normal inspection Eye exam: Present: normal appearance, PERRL, EOMI. Absent: scleral icterus, conjunctival injection, periorbital swelling ENT exam: Present: normal exam, mucous membranes moist Neck exam: Present: normal inspection. Absent: tenderness, meningismus, lymphadenopathy Respiratory exam: Present: normal lung sounds bilaterally. Absent: respiratory distress, wheezes, rales, rhonchi, stridor Cardiovascular Exam: Present: regular rate, normal rhythm, normal heart sounds. Absent: systolic murmur, diastolic murmur, rubs, gallop, clicks GI/Abdominal exam: Present: soft, normal bowel sounds. Absent: distended, tenderness, guarding, rebound, rigid Extremities exam: Present: normal inspection, full ROM, normal capillary refill. Absent: tenderness, pedal edema, joint swelling, calf tenderness Back exam: Present: normal inspection Neurological exam: Present: alert, oriented X3, CN II-XII intact Psychiatric exam: Present: normal affect, normal mood Skin exam: Present: warm, dry, intact, normal color. Absent: rash Assessment/Plan 1. Abdominal Pain 2. Constipation 3. GI Bleed 1. Aggressive bowel regiment with Miralax, Colace, and Fleet Enema 2. Transfuse PRBCs prn 3. Monitor Hgb 4. No acute surgical intervention planned [facility] [phone]
[2024-08-04 19:03] LABS: HCT 33.9 % (34.0-46.0); HGB 10.5 gm/dL (11.4-16.0); Hypochromasia Marked; MCH 31.2 pg (25.0-35.0); MCHC 30.9 g/dL (31.0-37.0); Macrocytosis Slight; Mean Platelet Volume 9.1; Platelet Count 166 k/uL (150-450); RBC 3.36 m/uL (3.80-5.40); RDW 15.8 % (11.5-15.5); WBC 12.1 k/uL (3.8-10.6)
[2024-08-04 20:22] LABS: Glucose,Whole Blood 115 mg/dL (70-110)
[2024-08-04 22:44] LABS: Anisocytosis Slight; Basophils % (A) 0 %; Eosinophils # (A) 0.3 k/uL (0-0.7); Eosinophils % (A) 3 %; HCT 33.9 % (34.0-46.0); HGB 10.6 gm/dL (11.4-16.0); Hypochromasia Marked; Lymphocytes # (A) 1.5 k/uL (1.0-4.8); Lymphocytes % (A) 12 %; MCH 31.2 pg (25.0-35.0); MCHC 31.3 g/dL (31.0-37.0); MCV 99.6 fL (80.0-100.0); Macrocytosis Slight; Mean Platelet Volume 9.3; Monocytes # (A) 0.4 k/uL (0-1.0); Monocytes % (A) 3 %; Neutrophils # (A) 9.7 k/uL (1.3-7.7); Neutrophils % (A) 81 %; Platelet Count 163 k/uL (150-450); RDW 16.1 % (11.5-15.5)
[2024-08-05 00:02] LABS: Glucose,Whole Blood 95 mg/dL (70-110)
[2024-08-05 00:13] LABS: HCT 34.8 % (34.0-46.0); HGB 10.7 gm/dL (11.4-16.0); Hypochromasia Marked; MCH 30.6 pg (25.0-35.0); MCHC 30.7 g/dL (31.0-37.0); MCV 99.9 fL (80.0-100.0); Macrocytosis Slight; Mean Platelet Volume 9.1; Platelet Count 156 k/uL (150-450); RBC 3.48 m/uL (3.80-5.40); WBC 11.6 k/uL (3.8-10.6)
[2024-08-05] MEDS: SODIUM CHLORIDE 0.9% 1,000 ML IV SCH (02:11)
[2024-08-05] MEDS: ONDANSETRON 4 MG/2 ML VIAL IVP PRN (04:50)
[2024-08-05 06:32] LABS: Glucose,Whole Blood 100 mg/dL (70-110)
--- NOTE | 2024-08-05 08:05 | P.PN ---
Progress Note - Text Progress Note Date: 08/05/24 Patient complains of abdominal pain and requesting pain medication. I explained to patient her constipation is related to narcotic pain medication and would be best to avoid narcotics. General appearance: alert, in no apparent distress Head exam: Present: atraumatic, normocephalic, normal inspection Eye exam: Present: normal appearance, PERRL, EOMI. Absent: scleral icterus, conjunctival injection, periorbital swelling ENT exam: Present: normal exam, mucous membranes moist Neck exam: Present: normal inspection. Absent: tenderness, meningismus, lymphadenopathy Respiratory exam: Present: normal lung sounds bilaterally. Absent: respiratory distress, wheezes, rales, rhonchi, stridor Cardiovascular Exam: Present: regular rate, normal rhythm, normal heart sounds. Absent: systolic murmur, diastolic murmur, rubs, gallop, clicks GI/Abdominal exam: Present: soft, normal bowel sounds. Absent: distended, tenderness, guarding, rebound, rigid Extremities exam: Present: normal inspection, full ROM, normal capillary refill. Absent: tenderness, pedal edema, joint swelling, calf tenderness Back exam: Present: normal inspection Neurological exam: Present: alert, oriented X3, CN II-XII intact Psychiatric exam: Present: normal affect, normal mood Skin exam: Present: warm, dry, intact, normal color. Absent: rash Assessment/Plan 1. Abdominal Pain 2. Constipation 3. GI Bleed 1. Aggressive bowel regiment with Miralax, Colace, and Fleet Enema 2. Transfuse PRBCs prn 3. Monitor Hgb 4. No acute surgical intervention planned Abdoul Yun DO [facility] [phone]
[2024-08-05 08:33] LABS: Anisocytosis Slight; Basophils % (A) 0 %; Eosinophils # (A) 0.2 k/uL (0-0.7); Eosinophils % (A) 2 %; HCT 32.7 % (34.0-46.0); Hypochromasia Marked; Lymphocytes % (A) 10 %; MCH 30.7 pg (25.0-35.0); MCHC 30.7 g/dL (31.0-37.0); MCV 100.1 fL (80.0-100.0); Macrocytosis Slight; Monocytes # (A) 0.4 k/uL (0-1.0); Monocytes % (A) 4 %; Neutrophils % (A) 83 %; Platelet Count 148 k/uL (150-450); RBC 3.27 m/uL (3.80-5.40); RDW 16.1 % (11.5-15.5); WBC 9.6 k/uL (3.8-10.6)
[2024-08-05 08:46] LABS: ALT 36 U/L (4-34); AST 60 U/L (14-36); African American GFR (CKD) 63 (>60 ml/min/1.73 sqM); Albumin 3.2 g/dL (3.5-5.0); Alkaline Phosphatase 343 U/L (38-126); Anion Gap 10 mmol/L; Blood Urea Nitrogen 23 mg/dL (7-17); Calcium 8.2 mg/dL (8.4-10.2); Carbon Dioxide 28 mmol/L (22-30); Chloride 101 mmol/L (98-107); Glucose 98 mg/dL (74-99); Non-African American GFR(CKD) 55 (>60 ml/min/1.73 sqM); Potassium 4.3 mmol/L (3.5-5.1); Sodium 139 mmol/L (137-145); Total Bilirubin 0.5 mg/dL (0.2-1.3); Total Protein 6.5 g/dL (6.3-8.2)
--- NOTE | 2024-08-05 11:55 | P.PN ---
Subjective Progress Note Date: 08/05/24 PROGRESS NOTE The patient is a 69-year-old female with history of CAD status post stenting of the LAD done on 17 July, she had prior stenting in 2019 at that time was found to have severe cardiomyopathy. She was readmitted to the hospital afterward and repeat echocardiogram showed mild improvement in the left ventricular systolic function with an ejection fraction of 30 to 35% with anteroapical hypokinesis. She presented to the emergency room with evidence of severe constipation, attempts for disimpaction were made but she had evidence of GI bleeding with large clots. The patient was transferred to the emergency room for further evaluation. At the time of my evaluation she denies any dyspnea or chest discomfort. She denies any dizziness or palpitations. She is quite limited in her physical activity and uses her walker. She has prior history of peripheral edema related to lymphedema. She has no history of PND or orthopnea. She is in sinus mechanism with no evidence of malignant arrhythmia. 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 August 05: The patient is having rectal discomfort. She denies any chest discomfort or significant dyspnea. She denies any dizziness or palpitations. She denies any nausea or vomiting. She continues to be in sinus mechanism. She was evaluated by the surgical service and recommendations for MiraLAX and enema were made. Medications: Aspirin, Plavix 75 mg daily, spironolactone 25 mg daily, atorvastatin 80 mg daily, Farxiga 10 mg daily, Synthroid, metoprolol succinate 50 mg daily, losartan 25 mg daily, Cymbalta, insulin, Bumex. PHYSICAL EXAMINATION: Blood pressure 110/60 heart rate 70 LUNGS: [Clear to auscultation] HEART: [Regular rate and rhythm, S1, S2. No S3. Systolic ejection murmur] ABDOMEN: [Soft, nontender, no organomegaly] EXTREMETIES: [No edema] LAB: Hemoglobin of 10, potassium 4.3, BUN 23, creatinine 1.04. AST 60 ALT 36. IMPRESSION: 1. Constipation with acute GI bleeding related to narcotics 2. History of CAD status post stenting of the LAD with ischemic cardiomyopathy, stable 3. Ischemic cardiomyopathy with no evidence of acute CHF 4. History of hypertension 5. History of diabetes PLAN: 1. Continue present therapy 2. Increase physical activity 3. Avoid narcotics 4. Follow hemoglobin 5. Depending on her progress further recommendations will be made Objective - Vital Signs Vital signs: Vital Signs Temp 98.2 F 08/05/24 03:36 Pulse 71 08/05/24 03:36 Resp 18 08/05/24 03:36 BP 110/66 08/05/24 03:36 Pulse Ox 98 08/05/24 03:36 FiO2 100 08/03/24 17:24 Intake & Output 08/04/24 08/05/24 08/05/24 18:59 06:59 18:59 Intake Total 237 Output Total 0 Balance 0 237 Weight 128.367 kg 110.5 kg Intake: Oral 237 Output: Urine 0 Other: Voiding Method Diaper Incontinent # Voids 1 # Bowel Movements 1 - Labs CBC & Chem 7: 08/05/24 06:51 08/05/24 06:51 Labs: Abnormal Lab Results - Last 24 Hours (Table) 08/04/24 08/04/24 08/04/24 Range/Units 11:37 17:25 18:26 WBC 12.1 H (3.8-10.6) k/uL RBC 3.15 L 3.36 L (3.80-5.40) m/uL Hgb 9.9 L 10.5 L (11.4-16.0) gm/dL Hct 31.4 L 33.9 L (34.0-46.0) % MCV 101.0 H (80.0-100.0) fL MCHC 30.9 L (31.0-37.0) g/dL RDW 16.0 H 15.8 H (11.5-15.5) % Plt Count (150-450) k/uL Neutrophils # (1.3-7.7) k/uL BUN (7-17) mg/dL POC Glucose (mg/dL) 69 L (70-110) mg/dL Calcium (8.4-10.2) mg/dL AST (14-36) U/L ALT (4-34) U/L Alkaline Phosphatase (38-126) U/L Albumin (3.5-5.0) g/dL 08/04/24 08/04/24 08/04/24 Range/Units 20:21 22:20 23:45 WBC 12.0 H 11.6 H (3.8-10.6) k/uL RBC 3.40 L 3.48 L (3.80-5.40) m/uL Hgb 10.6 L 10.7 L (11.4-16.0) gm/dL Hct 33.9 L (34.0-46.0) % MCV (80.0-100.0) fL MCHC 30.7 L (31.0-37.0) g/dL RDW 16.1 H 16.0 H (11.5-15.5) % Plt Count (150-450) k/uL Neutrophils # 9.7 H (1.3-7.7) k/uL BUN (7-17) mg/dL POC Glucose (mg/dL) 115 H (70-110) mg/dL Calcium (8.4-10.2) mg/dL AST (14-36) U/L ALT (4-34) U/L Alkaline Phosphatase (38-126) U/L Albumin (3.5-5.0) g/dL 08/05/24 08/05/24 Range/Units 06:51 06:51 WBC (3.8-10.6) k/uL RBC 3.27 L (3.80-5.40) m/uL Hgb 10.0 L (11.4-16.0) gm/dL Hct 32.7 L (34.0-46.0) % MCV 100.1 H (80.0-100.0) fL MCHC 30.7 L (31.0-37.0) g/dL RDW 16.1 H (11.5-15.5) % Plt Count 148 L (150-450) k/uL Neutrophils # 8.0 H (1.3-7.7) k/uL BUN 23 H (7-17) mg/dL POC Glucose (mg/dL) (70-110) mg/dL Calcium 8.2 L (8.4-10.2) mg/dL AST 60 H (14-36) U/L ALT 36 H (4-34) U/L Alkaline Phosphatase 343 H (38-126) U/L Albumin 3.2 L (3.5-5.0) g/dL
--- NOTE | 2024-08-05 14:13 | P.PN ---
Subjective Progress Note Date: 08/05/24 patient 69-year-old lady with past medical history significant for systolic CHF, hypertension, hyperlipidemia, diabetes, coronary artery disease who presented the ER for abdominal pain and constipation. Patient was discharged to rehab facility 3 to 4 days ago after being treated for altered mental status and CHF exacerbation. Patient was was having abdominal pain at the facility, abdominal pain was generalized, associate with nausea and vomiting. Patient did not have a bowel the last couple of days. Patient did have a bowel movement before discharge during last admission. There was no complaint of fever or chills. There was no complaint of chest pain or shortness of breath. Because of the symptoms, patient brought to the ER Initial lab work done in the ER showed WBC 13.9, hemoglobin 12.4, platelet count 215, sodium 139, potassium 4.1, BUN 34, creatinine 1.27, glucose 105, magnesium 2.6, AST 109, ALT 38 CT dominant pelvis done showed large stool burden within the rectum and throughout the colon fecal disimpaction recommended, bilateral inferior and superior pubic rami fracture with healing changes. Patient admitted to internal medicine service 08/04. Patient seen and examined. Patient had bleeding per rectum overnight. Hemoglobin remained stable at 10. Patient did have multiple bowel movements yesterday. Complaining of pain in the rectal area. 08/05. Patient seen and examined. Complaining of rectal pain. Daughter and at the bedside, they had a lot of questions for surgery and wanted to talk with them. Had a long discussion with patient's family and answered all her questions, showed them the trend of hemoglobin over the last 3 days and the labs. REVIEW OF SYSTEMS: CONSTITUTIONAL: No fever, no malaise,. CARDIOVASCULAR: No chest pain, no palpitations, no syncope. PULMONARY: No shortness of breath, no cough, GASTROINTESTINAL: No diarrhea, no nausea, no vomiting, no abdominal pain. NEUROLOGICAL: No headaches, no weakness, PHYSICAL EXAMINATION: GENERAL: The patient is alert and oriented x3, ill looking HEENT: Pupils are round and equally reacting to light. EOMI. No scleral icterus. No conjunctival pallor. Normocephalic, atraumatic. No pharyngeal erythema. No thyromegaly. CARDIOVASCULAR: S1 and S2 present. No murmurs, rubs, or gallops. PULMONARY: Good air entry bilaterally, no wheezing or crackles. ABDOMEN: Soft, nontender, nondistended, normoactive bowel sounds. No palpable organomegaly. MUSCULOSKELETAL: No joint swelling or deformity. EXTREMITIES: No cyanosis, clubbing, 1+ pitting edema lower extremities bilaterally NEUROLOGICAL: Gross neurological examination did not reveal any focal deficits. SKIN: No rashes. Assessment and plan Abdominal pain GI bleed Constipation chronic congestive heart failure systolic dysfunction Ischemic cardiomyopathy with a EF of 20 to 25% --> EF 35% Coronary artery disease with previous stenting of the LAD Hyponatremia Hyperkalemia Hyperglycemia Known moderate disease of the RCA Hypertension Hyperlipidemia Diabetes with hyperglycemia Obesity Monitor vital signs Monitor CBC Monitor CMP Aggressive bowel regimen Monitor H&H Strict I's and O's, daily weights Continue Bumex continue aspirin and Plavix Monitor blood sugar level, continue on insulin regimen Continue Farxiga, Aldactone Surgery following Pulmonology following cardiology following Labs and medication were reviewed.. Continue same treatment. Continue with symptomatic treatment. Resume home medication. Monitor labs and vitals. DVT and GI prophylaxis. Further recommendations as per clinical course of the patie nt Dictation was produced using [employer]. dictation software. please excuse any grammatical, word or spelling errors. Objective - Vital Signs Vital signs: Vital Signs Temp 98.2 F 08/05/24 03:36 Pulse 75 08/05/24 08:20 Resp 18 08/05/24 08:20 BP 127/66 08/05/24 08:20 Pulse Ox 98 08/05/24 08:20 FiO2 100 08/03/24 17:24 Intake & Output 08/04/24 08/05/24 08/05/24 18:59 06:59 18:59 Intake Total 237 Output Total 0 Balance 0 237 Weight 128.367 kg 110.5 kg Intake: Oral 237 Output: Urine 0 Other: Voiding Method Diaper Diaper Incontinent Incontinent # Voids 1 1 # Bowel Movements 1 1 - Labs CBC & Chem 7: 08/05/24 06:51 08/05/24 06:51 Labs: Abnormal Lab Results - Last 24 Hours (Table) 08/04/24 08/04/24 08/04/24 Range/Units 17:25 18:26 20:21 WBC 12.1 H (3.8-10.6) k/uL RBC 3.36 L (3.80-5.40) m/uL Hgb 10.5 L (11.4-16.0) gm/dL Hct 33.9 L (34.0-46.0) % MCV 101.0 H (80.0-100.0) fL MCHC 30.9 L (31.0-37.0) g/dL RDW 15.8 H (11.5-15.5) % Plt Count (150-450) k/uL Neutrophils # (1.3-7.7) k/uL BUN (7-17) mg/dL POC Glucose (mg/dL) 69 L 115 H (70-110) mg/dL Calcium (8.4-10.2) mg/dL AST (14-36) U/L ALT (4-34) U/L Alkaline Phosphatase (38-126) U/L Albumin (3.5-5.0) g/dL 08/04/24 08/04/24 08/05/24 Range/Units 22:20 23:45 06:51 WBC 12.0 H 11.6 H (3.8-10.6) k/uL RBC 3.40 L 3.48 L 3.27 L (3.80-5.40) m/uL Hgb 10.6 L 10.7 L 10.0 L (11.4-16.0) gm/dL Hct 33.9 L 32.7 L (34.0-46.0) % MCV 100.1 H (80.0-100.0) fL MCHC 30.7 L 30.7 L (31.0-37.0) g/dL RDW 16.1 H 16.0 H 16.1 H (11.5-15.5) % Plt Count 148 L (150-450) k/uL Neutrophils # 9.7 H 8.0 H (1.3-7.7) k/uL BUN (7-17) mg/dL POC Glucose (mg/dL) (70-110) mg/dL Calcium (8.4-10.2) mg/dL AST (14-36) U/L ALT (4-34) U/L Alkaline Phosphatase (38-126) U/L Albumin (3.5-5.0) g/dL 08/05/24 Range/Units 06:51 WBC (3.8-10.6) k/uL RBC (3.80-5.40) m/uL Hgb (11.4-16.0) gm/dL Hct (34.0-46.0) % MCV (80.0-100.0) fL MCHC (31.0-37.0) g/dL RDW (11.5-15.5) % Plt Count (150-450) k/uL Neutrophils # (1.3-7.7) k/uL BUN 23 H (7-17) mg/dL POC Glucose (mg/dL) (70-110) mg/dL Calcium 8.2 L (8.4-10.2) mg/dL AST 60 H (14-36) U/L ALT 36 H (4-34) U/L Alkaline Phosphatase 343 H (38-126) U/L Albumin 3.2 L (3.5-5.0) g/dL
--- NOTE | 2024-08-05 14:29 | P.PN ---
Subjective Progress Note Date: 08/05/24 Principal diagnosis: Rectal bleeding. Patient is a 69-year-old female with past medical history significant for coronary artery disease with previous PCI/stenting, recent CO, ischemic cardiomyopathy, hypertension, hyperlipidemia, factor V Leyden with previous DVT/PE, diabetes mellitus, neuropathy, hypothyroidism. Of note, patient is admitted earlier in July with non-ST elevation CO, received PCI/stenting to the mid LAD. Follow-up echocardiogram estimating left ventricular ejection fraction of 20 to 25%. She was discharged with LifeVest. Patient did have a readmission July 26 for acute CHF exacerbation. Eventually, discharged to [facility]. Patient is currently being evaluated emergency department room 22. She is lethargic. Will awaken and answers simple questions. She is an overall poor historian. HPI supplemented by who is at bedside. Apparently, patient was at [facility] when she developed severe constipation well as, rectal pain. According to the , last normal bowel movement was approximately 2 weeks ago. Denies any current abdominal pain. Patient has intermittent nausea without emesis. Denies hematemesis. Does chronically take oxycodone for back pain. While at outside facility, a digital disimpaction was attempted. Patient developed rectal bleeding with blood clots. She was sent to the emergency department on August 02. Patient continued to have rectal bleeding with clots. For this reason, and ICU consult was placed. On my evaluation, patient continues to have intermittent rectal pain, describes it as spasmodic. Rectal bleeding has subsided. Patient's denies any blood thinners. She does take Plavix and aspirin outpatient basis. She did recently have stenting of her mid LAD. Blood pressures remained stable. She has not required any PRBC transfusions. Not requiring any vasopressors. Most recent CBC: WBC count 10.8, hemoglobin 10.3, hematocrit 32.4, platelets 173. Most recent CMP from earlier: Sodium 140, potassium 4.3, chloride 101, serum bicarb 33, BUN 32, creatinine 1.29, glucose 130. LFTs mildly elevated. Total bilirubin 0.7. Current vitals: Temperature 98.6 F, heart rate 70 bpm, blood pressure 97/47 mmHg, SpO2 is 100% on 4 L/min nasal cannula. Patient is nontachypneic. Abdominal/pelvis CAT scan showing large stool burden within the rectum and throughout the colon. Fecal disimpaction was recommended. Bilateral inferior and superior pubic rami fractures with healing changes. Pancreatic lipomatosis. General surgery is consulted. Progress note dated August 05, 2024. 69-year-old female who was a patient at [facility]. She apparently developed severe constipation, and they attempted to disimpact her there, but caused some rectal bleeding. She was transferred here for further monitoring and management. She apparently has not yet been seen by general surgery. Her daughter was a bit upset. Currently, she is on 3 L by nasal cannula. She is not receiving any IV fluids. Her hemoglobin has been stable at 10. Current laboratory data includes a white count 9.6, hemoglobin 10, hematocrit 32.7, and a platelet count of 148,000. Sodium 139, potassium 4.3, chlorides 101, CO2 28, BUN 23, and creatinine 1.04. Calcium is 8.2. Albumin is 3.2. Objective - Vital Signs Vital signs: Vital Signs Temp 98.2 F 08/05/24 03:36 Pulse 75 08/05/24 08:20 Resp 18 08/05/24 08:20 BP 127/66 08/05/24 08:20 Pulse Ox 98 08/05/24 08:20 FiO2 100 08/03/24 17:24 Intake & Output 08/04/24 08/05/24 08/05/24 18:59 06:59 18:59 Intake Total 237 Output Total 0 Balance 0 237 Weight 128.367 kg 110.5 kg Intake: Oral 237 Output: Urine 0 Other: Voiding Method Diaper Diaper Incontinent Incontinent # Voids 1 1 # Bowel Movements 1 1 - Exam No acute distress, oriented 3. On room air. HEENT examination is grossly unremarkable. Mucous membranes are moist. No oral lesions. Neck supple. Full range of motion. No adenopathy thyromegaly or neck vein distention. Cardiovascular examination reveals regular rhythm rate. S1-S2 normal. No S3 or S4. No discernible murmur noted. Lungs reveal clear breath sounds. Breath sounds are equal bilaterally. No adventitious lung sounds including wheezes rhonchi or crackles. Abdomen soft bowel sounds are heard. No masses or tenderness. Extremities are intact. No cyanosis clubbing or edema. Skin is without rash or lesion. Neurologic examination is brief but nonfocal. - Labs CBC & Chem 7: 08/05/24 06:51 08/05/24 06:51 Labs: Abnormal Lab Results - Last 24 Hours (Table) 08/04/24 08/04/24 08/04/24 Range/Units 17:25 18:26 20:21 WBC 12.1 H (3.8-10.6) k/uL RBC 3.36 L (3.80-5.40) m/uL Hgb 10.5 L (11.4-16.0) gm/dL Hct 33.9 L (34.0-46.0) % MCV 101.0 H (80.0-100.0) fL MCHC 30.9 L (31.0-37.0) g/dL RDW 15.8 H (11.5-15.5) % Plt Count (150-450) k/uL Neutrophils # (1.3-7.7) k/uL BUN (7-17) mg/dL POC Glucose (mg/dL) 69 L 115 H (70-110) mg/dL Calcium (8.4-10.2) mg/dL AST (14-36) U/L ALT (4-34) U/L Alkaline Phosphatase (38-126) U/L Albumin (3.5-5.0) g/dL 08/04/24 08/04/24 08/05/24 Range/Units 22:20 23:45 06:51 WBC 12.0 H 11.6 H (3.8-10.6) k/uL RBC 3.40 L 3.48 L 3.27 L (3.80-5.40) m/uL Hgb 10.6 L 10.7 L 10.0 L (11.4-16.0) gm/dL Hct 33.9 L 32.7 L (34.0-46.0) % MCV 100.1 H (80.0-100.0) fL MCHC 30.7 L 30.7 L (31.0-37.0) g/dL RDW 16.1 H 16.0 H 16.1 H (11.5-15.5) % Plt Count 148 L (150-450) k/uL Neutrophils # 9.7 H 8.0 H (1.3-7.7) k/uL BUN (7-17) mg/dL POC Glucose (mg/dL) (70-110) mg/dL Calcium (8.4-10.2) mg/dL AST (14-36) U/L ALT (4-34) U/L Alkaline Phosphatase (38-126) U/L Albumin (3.5-5.0) g/dL 08/05/24 Range/Units 06:51 WBC (3.8-10.6) k/uL RBC (3.80-5.40) m/uL Hgb (11.4-16.0) gm/dL Hct (34.0-46.0) % MCV (80.0-100.0) fL MCHC (31.0-37.0) g/dL RDW (11.5-15.5) % Plt Count (150-450) k/uL Neutrophils # (1.3-7.7) k/uL BUN 23 H (7-17) mg/dL POC Glucose (mg/dL) (70-110) mg/dL Calcium 8.2 L (8.4-10.2) mg/dL AST 60 H (14-36) U/L ALT 36 H (4-34) U/L Alkaline Phosphatase 343 H (38-126) U/L Albumin 3.2 L (3.5-5.0) g/dL Assessment and Plan Assessment: Severe constipation and rectal bleeding, Abdominal/pelvis CAT scan showing large stool burden within the rectum and throughout the colon. Acute on chronic hypoxemic respiratory failure, currently on 4 L/min nasal cannula. History of severe ischemic cardiomyopathy, with ejection fraction of 30 to 35%. History of heart failure with reduced ejection fraction. Acute kidney injury, likely secondary to cardiorenal factors. Coronary artery disease, with recent history of Non-ST elevation myocardial infarction, S/P PCI and stenting of her LAD, on 07/17/2024. History of hypertension. History of hyperlipidemia. History of factor V Leyden with previous PE/DVT. Diabetes mellitus, type II, insulin-dependent. Chronic lower back pain. Plan: Plan dated August 05, 2024. The patient is seen today in room 356. From the pulmonary standpoint, the hank ent is very stable. The patient continues on 3 L of oxygen. Saturations are excellent. She is not receiving any IV fluids. Labs, x-rays, medications are reviewed. The patient's and daughter in the room. They are waiting for general surgery to evaluate the patient. Labs, x-rays, and all medications are reviewed. Prognosis is guarded. Apparently, she has had ongoing rectal bleeding. Hemoglobin has remained stable at 10 Time with Patient: Less than 30
[2024-08-05 16:17] LABS: Glucose,Whole Blood 297 mg/dL (70-110)
[2024-08-05 18:36] LABS: Anisocytosis Slight; Basophils % (A) 0 %; Eosinophils # (A) 0.1 k/uL (0-0.7); Eosinophils % (A) 1 %; HCT 31.3 % (34.0-46.0); HGB 9.8 gm/dL (11.4-16.0); Hypochromasia Marked; Lymphocytes # (A) 0.9 k/uL (1.0-4.8); Lymphocytes % (A) 9 %; MCH 31.4 pg (25.0-35.0); MCHC 31.2 g/dL (31.0-37.0); MCV 100.6 fL (80.0-100.0); Macrocytosis Slight; Mean Platelet Volume 9.9; Monocytes # (A) 0.3 k/uL (0-1.0); Monocytes % (A) 3 %; Neutrophils % (A) 86 %; Platelet Count 158 k/uL (150-450); RBC 3.11 m/uL (3.80-5.40); RDW 16.1 % (11.5-15.5); WBC 10.5 k/uL (3.8-10.6)
[2024-08-05 20:10] LABS: Glucose,Whole Blood 290 mg/dL (70-110)
[2024-08-05 20:20] VITALS: TEMP 98.4
[2024-08-05 22:37] LABS: Glucose,Whole Blood 261 mg/dL (70-110)
[2024-08-05] MEDS: SODIUM CHLORIDE 0.9% 500 ML 500 ML IV ONE (22:53)
[2024-08-05 23:07] LABS: Anisocytosis Slight; Basophils % (A) 0 %; Eosinophils # (A) 0.1 k/uL (0-0.7); Eosinophils % (A) 1 %; HCT 30.3 % (34.0-46.0); HGB 9.5 gm/dL (11.4-16.0); Hypochromasia Marked; Lymphocytes # (A) 1.1 k/uL (1.0-4.8); Lymphocytes % (A) 10 %; MCH 31.2 pg (25.0-35.0); MCHC 31.3 g/dL (31.0-37.0); MCV 99.6 fL (80.0-100.0); Macrocytosis Slight; Mean Platelet Volume 9.2; Monocytes # (A) 0.3 k/uL (0-1.0); Monocytes % (A) 3 %; Neutrophils # (A) 9.1 k/uL (1.3-7.7); Neutrophils % (A) 85 %; Platelet Count 167 k/uL (150-450); RBC 3.04 m/uL (3.80-5.40); RDW 16.1 % (11.5-15.5); WBC 10.7 k/uL (3.8-10.6)
[2024-08-05 23:13] LABS: Glucose,Whole Blood 246 mg/dL (70-110)
[2024-08-05] MEDS: SODIUM CHLORIDE 0.9% 1,000 ML IV ONE (23:37)
[2024-08-06] MEDS: NOREPINEPHRINE 4 MG in SODIUM CHLORIDE 0.9% 250 ML IV SCH (00:52)
--- NOTE | 2024-08-06 01:12 | P.PN ---
Progress Note - Text Progress Note Date: 08/06/24 I was notified that jose ramon developed acute lower GI bleed, hypotensive, having large amounts of bright red blood per rectum with blood clots. Patient has been transferred to the ICU. Transfer to tertiary center for GI was recommended, and bedside nurse indicated that patient's family was notified of this recommendation for transfer and were agreeable to transferring the patient. I spoke with the [facility] transfer team and I reviewed the patient's case with Dr Cevallos who has accepted the patient as a transfer to the SICU at [facility]. Nursing team was notified of the patient's acceptance as a transfer to [facility]. -Miguel [email or web address]-C
[2024-08-06 04:10] LABS: Appearance,Urine Turbid (Clear); Bacteria,Urine Few /hpf; Bilirubin,Urine Negative (Negative); Blood,Urine Small (Negative); Budding Yeast,Urine Few /hpf; Color,Urine Light Yellow; Glucose,Urine (UA) 4+ (Negative); Hyaline Casts,Urine 10 /lpf (0-2); Ketones,Urine Negative (Negative); Leukocyte Esterase,Urine Large (Negative); Mucus,Urine Rare /hpf; Nitrite,Urine Negative (Negative); Protein,Urine Trace (Negative); RBC,Urine 15 /hpf (0-5); Specific Gravity,Urine 1.014 (1.001-1.035); Urobilinogen,Urine <2.0 mg/dL (<2.0); WBC,Urine >182 /hpf (0-5)
[2024-08-06 05:15] VITALS: BP 118/54; PULSE 74; RESP 19
--- NOTE | 2024-08-08 08:55 | P.DS ---
Providers Date of admission: 08/04/24 11:04 Expected date of discharge: 08/06/24 Attending physician: Francisco Vela Consults: 08/03/24 11:14 Consult Physician Routine Consulting Provider: Javi Beckford Consult Reason/Comments: Abdominal pain, severe constipation Do you want consulting provider notified?: Yes 08/03/24 22:41 Consult Physician Stat Consulting Provider: Sandoval Jack Consult Reason/Comments: medication management Do you want consulting provider notified?: Already Contacted 08/03/24 22:42 Consult Physician Stat Consulting Provider: Lily Hicks Consult Reason/Comments: GI bleed Do you want consulting provider notified?: Already Contacted 08/04/24 21:38 Consult Physician Routine Consulting Provider: Melissa Sorenson Consult Reason/Comments: GI Bleed Do you want consulting provider notified?: Yes 08/05/24 12:03 Consult Physician Urgent Consulting Provider: Ivan Carcamo Consult Reason/Comments: constipation, impaction, bleeding hemorrhoids Do you want consulting provider notified?: Yes Primary care physician: Neeraj Le Hospital Course: Discharge diagnoses; Abdominal pain GI bleed Constipation chronic congestive heart failure systolic dysfunction Ischemic cardiomyopathy with a EF of 20 to 25% --> EF 35% Coronary artery disease with previous stenting of the LAD Hyponatremia Hyperkalemia Hyperglycemia Known moderate disease of the RCA Hypertension Hyperlipidemia Diabetes with hyperglycemia Obesity Hospital course; patient 69-year-old lady with past medical history significant for systolic CHF, hypertension, hyperlipidemia, diabetes, coronary artery disease who presented the ER for abdominal pain and constipation. Patient was discharged to rehab facility 3 to 4 days ago after being treated for altered mental status and CHF exacerbation. Patient was was having abdominal pain at the facility, abdominal pain was generalized, associate with nausea and vomiting. Patient did not have a bowel the last couple of days. Patient did have a bowel movement before discharge during last admission. There was no complaint of fever or chills. There was no complaint of chest pain or shortness of breath. Because of the symptoms, patient brought to the ER Initial lab work done in the ER showed WBC 13.9, hemoglobin 12.4, platelet count 215, sodium 139, potassium 4.1, BUN 34, creatinine 1.27, glucose 105, magnesium 2.6, AST 109, ALT 38 CT dominant pelvis done showed large stool burden within the rectum and throughout the colon fecal disimpaction recommended, bilateral inferior and superior pubic rami fracture with healing changes. Patient admitted to internal medicine service 08/04. Patient seen and examined. Patient had bleeding per rectum overnight. Hemoglobin remained stable at 10. Patient did have multiple bowel movements yesterday. Complaining of pain in the rectal area. 08/05. Patient seen and examined. Complaining of rectal pain. Daughter and at the bedside, they had a lot of questions for surgery and wanted to talk with them. Had a long discussion with patient's family and answered all her questions, showed them the trend of hemoglobin over the last 3 days and the labs. At night on 08/05 patietn developed acute lower GI bleed, hypotensive, having large amounts of bright red blood per rectum with blood clots. Patient transferred to the ICU. Covering hospitalist was contacted and transfer to tertiary center for GI was recommended, and bedside nurse indicated that patient's family was notified of this recommendation for transfer and were agreeable to transferring the patient commissioner of relocation services hospitalist spoke with the [facility] transfer team and reviewed the patient's case with Dr Cevallos who has accepted the patient as a transfer to the SICU at [facility]. Patient was discharged there in stable condition PHYSICAL EXAMINATION: GENERAL: The patient is alert and oriented x3, ill looking HEENT: Pupils are round and equally reacting to light. EOMI. No scleral icterus. No conjunctival pallor. Normocephalic, atraumatic. No pharyngeal erythema. No thyromegaly. CARDIOVASCULAR: S1 and S2 present. No murmurs, rubs, or gallops. PULMONARY: Good air entry bilaterally, no wheezing or crackles. ABDOMEN: Soft, nontender, nondistended, normoactive bowel sounds. No palpable organomegaly. MUSCULOSKELETAL: No joint swelling or deformity. EXTREMITIES: No cyanosis, clubbing, 1+ pitting edema lower extremities bilaterally NEUROLOGICAL: Gross neurological examination did not reveal any focal deficits. SKIN: No rashes. Dictation was produced using Julep dictation software. please excuse any grammatical, word or spelling errors. Patient Condition at Discharge: Fair Plan - Discharge Summary Discharge Rx Participant: Yes New Discharge Prescriptions: No Action Clopidogrel [Plavix] 75 mg PO DAILY traZODone HCL [Desyrel] 200 mg PO HS Insulin Lispro [humaLOG Kwikpen] See Protocol SQ AC-TID Aspirin 81 mg PO DAILY #30 tab Atorvastatin [Lipitor] 80 mg PO HS #30 tab oxyCODONE HCL [oxyCODONE HCL (IR)] 10 mg PO TID PRN PRN Reason: Pain Insulin Glargine,Hum.rec.anlog [Lantus Solostar Pen] 60 units SQ BID Levothyroxine Sodium [Synthroid] 300 mcg PO DAILY DULoxetine HCL [Cymbalta] 60 mg PO BID Spironolactone [Aldactone] 25 mg PO DAILY #30 tab Nitroglycerin Sl Tabs [Nitrostat] 0.4 mg SUBLINGUAL Q5M PRN #30 tab PRN Reason: Chest Pain Cyanocobalamin [Vitamin B-12] 1,000 mcg PO DAILY #30 tab Albuterol Inhaler [Ventolin Hfa Inhaler] 2 puff INHALATION RT-Q6H PRN PRN Reason: Shortness Of Breath Amoxic-Pot Clav 875-125Mg [Augmentin 875-125] 1 tab PO BID 3 Days #6 tab Bumetanide [BUMEX] 1 mg PO BID@0900,1600 30 Days #30 tab Losartan [Cozaar] 25 mg PO DAILY #30 tab Dapagliflozin Propanediol [Farxiga] 10 mg PO DAILY #30 tab Metoprolol Succinate (ER) [Toprol XL] 50 mg PO DAILY 30 Days #30 tab ALPRAZolam [Xanax] 2 mg PO TID PRN 2 Days #6 tab PRN Reason: Anxiety Discharge Medication List Clopidogrel [Plavix] 75 mg PO DAILY 07/07/19 [History] traZODone HCL [Desyrel] 200 mg PO HS 07/07/19 [History] Insulin Glargine,Hum.rec.anlog [Lantus Solostar Pen] 60 units SQ BID 06/09/21 [History] Levothyroxine Sodium [Synthroid] 300 mcg PO DAILY 08/30/21 [History] Insulin Lispro [humaLOG Kwikpen] See Protocol SQ AC-TID 09/21/23 [History] DULoxetine HCL [Cymbalta] 60 mg PO BID 07/15/24 [History] Aspirin 81 mg PO DAILY #30 tab 07/25/24 [Rx] Atorvastatin [Lipitor] 80 mg PO HS #30 tab 07/25/24 [Rx] Cyanocobalamin [Vitamin B-12] 1,000 mcg PO DAILY #30 tab 07/25/24 [Rx] Nitroglycerin Sl Tabs [Nitrostat] 0.4 mg SUBLINGUAL Q5M PRN #30 tab 07/25/24 [Rx] Spironolactone [Aldactone] 25 mg PO DAILY #30 tab 07/25/24 [Rx] Albuterol Inhaler [Ventolin Hfa Inhaler] 2 puff INHALATION RT-Q6H PRN 07/26/24 [History] ALPRAZolam [Xanax] 2 mg PO TID PRN 2 Days #6 tab 07/31/24 [Rx] Amoxic-Pot Clav 875-125Mg [Augmentin 875-125] 1 tab PO BID 3 Days #6 tab 07/31/24 [Rx] Bumetanide [BUMEX] 1 mg PO BID@0900,1600 30 Days #30 tab 07/31/24 [Rx] Dapagliflozin Propanediol [Farxiga] 10 mg PO DAILY #30 tab 07/31/24 [Rx] Losartan [Cozaar] 25 mg PO DAILY #30 tab 07/31/24 [Rx] Metoprolol Succinate (ER) [Toprol XL] 50 mg PO DAILY 30 Days #30 tab 07/31/24 [Rx] oxyCODONE HCL [oxyCODONE HCL (IR)] 10 mg PO TID PRN 08/03/24 [History] Follow up Appointment(s)/Referral(s): Miguel Sy MD [STAFF PHYSICIAN] - 1-2 days Discharge Disposition: DC/[facility] INTERMEDIATE CARE FAC
--- NOTE | 2024-08-08 12:22 | CDI ---
Documentation Clarification Form Date: 08/08/2024 12:08:34 PM From: Evelyne Beltrán Phone: Admit Date: 08/04/2024 11:04:00 AM Patient Name: Rosalinda Brothers Visit Number: [id number] Discharge Date: 08/06/2024 06:19:00 AM ATTENTION: The Clinical Documentation Specialists (CDI) and [facility] Coding Staff appreciate your assistance in clarifying documentation. Please respond to the clarification below the line at the bottom and electronically sign. The CDI & [facility] Coding staff will review the response and follow-up if needed. Please note: Queries are made part of the Legal Health Record. If you have any questions, please contact the author of this message via ITS. Doctor/Provider: Abdoul Yun GI Bleed is documented in DS on 08/08/2024. For each diagnosis, documentation must be clear to determine if the condition was present at the time of the patients inpatient admission or developed during the hospital stay. Additional clarification regarding the GI Bleed is requested. History/Risk Factors: patient 69-year-old lady with past medical history significant forsystolic CHF,hypertension,hyperlipidemia,diabetes,coronary artery diseasewho presented the ER forabdominal painandconstipation Clinical Indicators: on 08/04 consult note GI Bleed -Patient was was havingabdominal painat the facility,abdominal painwas generalized, associate withnausea and vomiting. Patient did not have a bowel the last couple of days Pulmonology consult on 08/04 - at the [facility] she developed severe constipation, and a disimpaction was attempted, but unfortunately patient developedGI bleeding. She hadGI bleedingwith clots, the patient was placed in the intensive care unit for further monitoring and management. Pn on 08/04 .Patient seen and examined. Patient hadbleeding per rectumovernight. Hemoglobin remained stable at 10.Patient did have multiple bowel movements yesterday. Complaining ofpain in the rectalarea. Pn 08/05 -She presented to the emergency room with evidence of severe constipation, attempts for disimpaction were made but she had evidence ofGI bleedingwith large clots. Ct abdomen 08/02 -Large stool burden within the rectum and throughout the colon fecal disimpaction recommended Treatment: Aggressive bowel regiment with Miralax, Colace, and FleetEnema 2.Transfuse PRBCsprn 3.Monitor Hgb 4.No acute surgical intervention planned Definition of Present on Admission (POA): A diagnosis present at the time the order for admission to inpatient status was written. Please clarify if the GI Bleed was POA [ ] Y = Yes, the condition was present at the time of the order for inpatient admission. [ ] N = No, the condition was not present at the time of the order for inpatient admission. [x ] W = Clinically undetermined if the condition was present at the time of the order for inpatient admission. (Template Last Revised: October 2020) MTDD
== END 2024-08-06 06:19 | DRG 391 ==
LOC: EC 20:01 → 6NMEDSUR 22:25 → 2SICU 08-03 22:53 → 5NMEDONC 08-04 09:39 → OBSVTOIN 08-04 11:04 → 4SSUR 08-04 18:04 → 3SCARD 08-04 20:31 → 2SICU 08-05 22:56
PROVIDERS: ADMIT Hospitalist; ATTEND Hospitalist
DX: K59.03 Drug induced constipation (principal); J96.21 Acute and chronic respiratory failure with hypoxia; K62.5 Hemorrhage of anus and rectum; E87.1 Hypo-osmolality and hyponatremia; I50.22 Chronic systolic (congestive) heart failure; Z68.41 Body mass index [BMI] 40.0-44.9, adult; D68.51 Activated protein C resistance; N17.9 Acute kidney failure, unspecified; I11.0 Hypertensive heart disease with heart failure; I25.10 Atherosclerotic heart disease of native coronary artery without angina pectoris; I25.5 Ischemic cardiomyopathy; E87.5 Hyperkalemia; E11.65 Type 2 diabetes mellitus with hyperglycemia; E11.41 Type 2 diabetes mellitus with diabetic mononeuropathy; E78.5 Hyperlipidemia, unspecified; E66.9 Obesity, unspecified; F32.A Depression, unspecified; T40.605A Adverse effect of unspecified narcotics, initial encounter; M19.90 Unspecified osteoarthritis, unspecified site; F41.0 Panic disorder [episodic paroxysmal anxiety]; K21.9 Gastro-esophageal reflux disease without esophagitis; I95.9 Hypotension, unspecified; G89.29 Other chronic pain; M54.50 Low back pain, unspecified; K64.9 Unspecified hemorrhoids; E03.9 Hypothyroidism, unspecified; S32.512D Fracture of superior rim of left pubis, subsequent encounter for fracture with routine healing; Z95.5 Presence of coronary angioplasty implant and graft; S32.511D Fracture of superior rim of right pubis, subsequent encounter for fracture with routine healing; Z88.6 Allergy status to analgesic agent; Z79.890 Hormone replacement therapy; Z79.82 Long term (current) use of aspirin; Z79.899 Other long term (current) drug therapy; Z88.1 Allergy status to other antibiotic agents; Z91.041 Radiographic dye allergy status; Z86.718 Personal history of other venous thrombosis and embolism; Z86.711 Personal history of pulmonary embolism; I25.2 Old myocardial infarction; Z79.4 Long term (current) use of insulin; Z79.891 Long term (current) use of opiate analgesic; Z87.891 Personal history of nicotine dependence
CPT/HCPCS: 36415; 71045; 74176; 80048; 80053; 81001; 82150; 83036; 83605; 83690; 83735; 85025; 85027; 85610; 85730; 86850; 86870; 86880; 86900; 86901; 87086; 96361; 96374; 96375; 96376; 99285

== ENCOUNTER 2024-10-29 08:06 | Day surgery (SDC) | payer MEDICARE, BC ==
[2024-10-27 13:48] VITALS: BMI 38.9
[~2024-10-29 08:06] MED LIST changes: +ALPRAZolam 0.5 MG TAB PO PRN; -LACTATED RINGERS 1,000 ML IV SCH; +NITROGLYCERIN SL TABS 0.4 MG TAB SUBLINGUAL PRN
[2024-10-29 09:15] LABS: Glucose,Whole Blood 382 mg/dL (70-110)
[2024-10-29] MEDS: ASPIRIN 325 MG TAB PO ONE (09:21)
[2024-10-29] MEDS: SODIUM CHLORIDE 0.9% 1,000 ML in EMPTY BAG 1 BAG IV SCH (09:22)
[2024-10-29 09:35] LABS: Anisocytosis Slight; Basophils % (A) 0 %; Eosinophils % (A) 0 %; HCT 33.8 % (34.0-46.0); HGB 9.8 gm/dL (11.4-16.0); Hypochromasia Marked; Lymphocytes # (A) 0.7 k/uL (1.0-4.8); Lymphocytes % (A) 13 %; MCH 25.8 pg (25.0-35.0); MCV 88.8 fL (80.0-100.0); Mean Platelet Volume 9.1; Monocytes # (A) 0.1 k/uL (0-1.0); Monocytes % (A) 2 %; Neutrophils # (A) 4.8 k/uL (1.3-7.7); Neutrophils % (A) 84 %; Platelet Count 231 k/uL (150-450); RBC 3.81 m/uL (3.80-5.40); RDW 16.3 % (11.5-15.5); WBC 5.7 k/uL (3.8-10.6)
[2024-10-29] MEDS: IV FLUID CONTINUATION 1,000 ML IV ONE (09:36)
[2024-10-29] MEDS: INSULIN LISPRO (HumaLOG) 100 UNIT/ML 10 mL VL SQ ONE ×2 (09:57→17:42)
[2024-10-29] MEDS: HEPARIN SODIUM,PORCINE (1 ML) 2,500 UNIT in SODIUM CHLORIDE 0.9% 250 ML IRRIGATION PRN (10:05)
[2024-10-29] MEDS: HEPARIN SODIUM,PORCINE 10,000 UNIT in SODIUM CHLORIDE 0.9% 1,000 ML IRRIGATION PRN (10:05)
[2024-10-29] MEDS: MIDAZOLAM 2 MG/2 ML VIAL IVP ONE ×2 (10:18→10:27)
[2024-10-29] MEDS: LIDOCAINE 1% INJ 10MG/ML (20 ML MDV) SQ ONE (10:25)
[2024-10-29] MEDS: VERAPAMIL SYRINGE (5 MG/10 ML) INTRAARTER ONE (10:28)
[2024-10-29] MEDS: HEPARIN SODIUM 1,000 UN/ML (10ML VL) IVP ONE ×3 (10:31→11:44)
[2024-10-29] MEDS: CLOPIDOGREL 75 MG TAB PO ONE (11:06)
[2024-10-29] MEDS: NITROGLYCERIN 1000MCG/10ML SYRINGE INTRACORON ONE ×2 (11:14→11:45)
[2024-10-29] MEDS: IOPAMIDOL-370 100ML BTL INJ ONE (11:57)
[2024-10-29] MEDS ORDERED: RX INFO: IV CONTRAST WAS GIVEN 1 EACH MISC MISCELLANE PRN (12:08)
[2024-10-29] MEDS ORDERED: ZOLPIDEM 5 MG TAB PO PRN (12:08)
[2024-10-29] MEDS ORDERED: ACETAMINOPHEN TAB 325 MG TAB PO PRN (12:08)
[2024-10-29] MEDS ORDERED: MAG HYDROX/AL HYDROX/SIMETH 30 ML CUP PO PRN (12:08)
[2024-10-29] MEDS ORDERED: ATROPINE SULFATE 0.1 MG/ML 10ML SYRINGE IV PRN (12:08)
[2024-10-29] MEDS: SODIUM CHLORIDE 0.9% 1,000 ML IV SCH (13:48)
[2024-10-29] MEDS: ALPRAZolam 1 MG TAB PO SCH (14:32)
[2024-10-29 17:16] LABS: Glucose,Whole Blood 545 mg/dL (70-110)
[2024-10-29] MEDS ORDERED: DEXTROSE 50% SYRINGE 50 ML IVP PRN ×2 (17:21)
[2024-10-29] MEDS ORDERED: INSULIN LISPRO (HumaLOG) 100 UNIT/ML 10 mL VL SQ SCH (17:30)
[2024-10-29] MEDS: INSULIN LISPRO (HumaLOG) 100 UNIT/ML 10 mL VL SQ SCH (17:41)
[2024-10-29] MEDS: traZODone HCL 100 MG TAB PO SCH (19:54)
[2024-10-29] MEDS: DULoxetine HCL 60 MG CAPSULE.DR PO SCH (19:54)
--- NOTE | 2024-10-29 20:36 | CC ---
CARDIAC CATHETERIZATION REPORT PROCEDURES PERFORMED: 1. Coronary angiography. 2. Percutaneous transluminal coronary angioplasty and stenting of mid proximal and ostial right coronary artery with 3 drug-eluting stents. 3. Intravascular ultrasound of right coronary artery before and after the intervention. PERFORMED BY: Dr. Cem Babcock. ANESTHESIA: Moderate conscious sedation time was 80 minutes. The patient was administered Versed. Oxygen saturation, hemodynamics, and EKG were monitored closely. CLINICAL INFORMATION: Ms. Rosalinda Brothers is a 69-year-old lady with a known history of type 2 diabetes, hypertension, hyperlipidemia, and significant CAD with multivessel intervention. I performed intervention of her LAD in 2012 and again in July 2014, which was a restenting along with intravascular ultrasound. She also had a previous stenting of the circumflex performed as well in the past. She has significant mid RCA disease, but RCA is a diffusely diseased vessel. We reviewed the angiograms and after much discussion, I recommended PCI of the RCA in view of continued symptoms of angina with limited activity. She had compounding issues including diabetes, which is now under fair control, but she had significant rectal bleeding and also her dual antiplatelet therapy was held for a short while. However, she has other comorbid conditions in the form of type 2 diabetes, hypertension, hyperlipidemia. She has been on aspirin and Plavix without interruption since her PCI in July. She was brought in for a coronary angiogram to check the patency of LAD, assess circumflex and then perform intervention of RCA. All risks, benefits, options were explained. The patient and family understood all details and wished to proceed with the procedure. PROCEDURE NOTE: Under strict aseptic precautions, local anesthesia with the help of ultrasound guidance, I gained access into the right radial artery. I used a JL3.5 diagnostic catheter to perform selective coronary angiography of the left system and then proceeded to perform intervention of the RCA. Following the RCA intervention, the sheath was taken out and a TR band applied with saturation of the fingers of the right hand of 93% and good hemostasis was secured. The patient received 375 mg of Plavix. She will be on aspirin and Plavix without interruption probably for 6 months in view of her history of GI bleed. Her ACT during the procedure after receiving heparin was initially between 250 and 300, but 1 reading was 381, subsequently, it was 231. She received a total of 6500 units of heparin initially and an additional 1000 units later on. She weighs about 104 kg. Excellent angiographic result was achieved and the details were discussed with the patient and family. CORONARY ANGIOGRAPHY FINDINGS: Left main coronary artery: Short patent vessel. No significant disease. Bifurcates into LAD and circumflex. Left anterior descending coronary artery: This vessel was stented in the midportion, probably has 2 layers of stent, which has no more than 35% narrowing, brisk flow and no other significant disease, but minor irregularities seen throughout. Left posterior circumflex coronary artery: Nondominant vessel, has a mid lesion of about 60% to 70% and a jailed obtuse marginal, but overall minor irregularities and no significant disease in the circumflex system. Right coronary artery: This vessel has about a long lesion in the midportion of about 80% heavily calcified vessel with multiple areas of irregularities and diffuse disease in the proximal segment and 80% mid lesion with diffuse disease on either side of the 80% lesion. FINAL IMPRESSION: This patient has a right-dominant system and LAD that was stented in July is widely patent with good flow in the midportion. Circumflex has a previous mid stent that jailed an OM, but there is good flow in the circumflex. No critical stenosis. RCA has 80% mid lesion with diffuse disease and heavy calcification. RECOMMENDATIONS: I recommended PCI of RCA and performed this in the same setting. PCI PROCEDURE DETAILS: I used a run-through wire and a 6-Maldivian right Christiano type guide catheter to cannulate the right coronary artery. I performed PTCA with a 15 mm long 2.5 caliber NC Trek balloon and I then performed intravascular ultrasound and noted that the reference vessel was 3.4 mm. I then deployed a 3.5 caliber 23 mm long Xience stent in the midportion just after the acute marginal branch. Excellent angiographic result was achieved. I performed an intravascular ultrasound and noted that the stent was well expanded, but the reference diameter was slightly higher and the stent maximal diameter was 3.1 or 3.2. I then took a 3.5 NC Trek balloon and dilated the stented segment with remarkable improvement. I then took a final angiogram and noted that there was a dissection in the proximal RCA where the guide catheter sat and this dissection seemed to extend from the proximal 1/[address] into the ostium of the RCA. At this point, I changed the guide catheter and used a run-through wire and was able to get back into the true lumen. I dilated the area of dissection with a 2.5 NC Trek balloon that was available. I deployed a 28 mm long 3.25 caliber Xience stent and telescoped into the previous stent. The proximal and ostial portion of RCA was addressed with another 12 mm long 3.25 caliber Xience stent. All of these were then dilated with a 3.5 NC Trek balloon that was available. I performed intravascular ultrasound and noted that the proximal stent and the proximal portion of the middle stent were not as well expanded. I used a 4.0 caliber NC Trek balloon and dilated from the ostium all the way into the mid stent. Excellent angiographic result was achieved. There were no complications. The patient remained hemodynamically stable. Angiographic and ultrasound evaluation suggested that the stent was fully expanded and well apposed. Excellent angiographic result without complication was achieved. The sheath was taken out and the patient was sent to the room in a stable condition. Details and results were discussed with the patient as well as her family members. I expect she will be discharged tomorrow and I will see her in the office on November 05 at 3 p.m. MMKARINAL / SUMAYAN: [id number] /
[2024-10-29 20:52] LABS: Glucose,Whole Blood 500 mg/dL (70-110)
[2024-10-29] MEDS: INSULIN GLARGINE (LANTUS) 100 UNIT/ML SYR SQ SCH (21:31)
--- NOTE | 2024-10-29 21:45 | P.CONS ---
History of Present Illness - Reason for Consult Consult date: 10/29/24 - History of Present Illness Patient is a 69-year-old female with past medical history of multivessel CAD, hypertension, insulin-dependent diabetes mellitus is here status post scheduled left heart catheterization. We were consulted by cardiology for diabetes management. Patient's glucose got as high as 545 today. At time of interview she presented asymptomatic with no complaints. Patient states she only takes insulin at home, but is unsure the exact amount she takes throughout the day. She states she has been compliant with her insulin. Patient denies any fever, chills, dizziness, headache, chest pain, shortness of breath, abdominal pain, nausea, vomiting, urinary symptoms. Pertinent positives and negatives as discussed above, a complete review of systems was performed and all other systems are negative. Vitals: Signs Reviewed Physical Exam: General: nontoxic, no distress, appears at stated age Derm: warm, dry, intact Head: atraumatic, normocephalic, symmetric Eyes: EOMI, anicteric sclera Mouth: no lip lesion, mucus membranes moist Cardiovascular: S1 S2 reg, no murmur, rubs, or gallops Lungs: CTA bilateral, no rhonchi, no rales, no accessory muscle use Abdominal: soft, non-tender to palpataion, no appreciable organomegaly Extremities: no gross muscle atrophy, lymphadema noted, Neuro: Alert, Oriented, CNII-XII grossly intact, gait normal Psych: well appearing, appropriate affect Data Received Today: Pertinent Labs: Hgb 9.8, platelet 231, glucose 545 => 500 Imaging: N/A Assessment and Plan: #. Insulin-dependent diabetes mellitus SQ sliding scale medium dose Lantus 20 unit SQ at bedtime and 30 unit SQ in AM S/p 30 units humalog SQ Humalog 12 units SQ AC-TID Accu-Cheks ACHS Hypoglycemic protocol #. Hypothyroidism Continue Synthroid 200 mcg p.o. daily #. Multivessel CAD S/p left heart catheterization Defer management to primary cardiology service DVT prophylaxis and pain management per primary cardiology service Thank you for this consultation. We will continue to follow peripherally. Please do not hesitate to answer any further questions. Gay Dougherty MD PGY-1 IM Dictation was produced using Graduwayation software. please excuse any grammatical, word or spelling errors. Past Medical History Past Medical History: Blood Disorder, Cancer, Diabetes Mellitus, Deep Vein Thrombosis (DVT), GERD/Reflux, Hyperlipidemia, Hypertension, Myocardial Infarction (IN), Neurologic Disorder, Osteoarthritis (OA), Pneumonia, Pulmonary Embolus (PE), Thyroid Disorder Additional Past Medical History / Comment(s): See Dr Babcock's H&P. Factor 5 Leiden, hx DVT L leg, hx PE L lung, hx IN X5, palpitations, IDDM type II, ne uropathy bilateral legs/feet, lymphedema L leg, charcot syndrome L foot, chronic low back pain, bilateral sciatica, hx bronchitis, anemia, hypothyroid, constipation, hx UTI, IBS, sinus problems, worsening tremors, hx skin cancer removal, hx pelvic fracture, clausterphobia, hx severe vertigo, poor balance and prone to falls. Last Myocardial Infarction Date:: January 2020 History of Any Multi-Drug Resistant Organisms: VRE Year Discovered:: 08/24/23 MDRO Source:: Urine Past Surgical History: Appendectomy, Cholecystectomy, Heart Catheterization With Stent, Hernia Repair, Hysterectomy, Tonsillectomy Additional Past Surgical History / Comment(s): Bilateral salpingectomy, bilateral oophorectomy, abdominal hernia surgeries, L foot fracture, bilateral c ataract removals, lumbar epidural injections. Past Anesthesia/Blood Transfusion Reactions: No Reported Reaction Additional Past Anesthesia/Blood Transfusion Reaction / Comm: Pt has received blood in past without reaction. Date of Last Stent Placement:: January 2020 Smoking Status: Former smoker - Past Family History Mother Family Medical History: COPD Additional Family Medical History / Comment(s): Mother was a smoker. Father Family Medical History: Cancer Additional Family Medical History / Comment(s): Lung cancer. Father was a smoker. Son(s) Family Medical History: Deep Vein Thrombosis (DVT) Medications and Allergies Home Medications Medication Instructions Recorded Confirmed Type Clopidogrel [Plavix] 75 mg PO DAILY 07/07/19 10/29/24 History traZODone HCL [Desyrel] 200 mg PO HS 07/07/19 10/29/24 History Insulin Glargine,Hum.rec.anlog 30 units SQ HS 06/09/21 10/29/24 History [Lantus Solostar Pen] Levothyroxine Sodium [Synthroid] 300 mcg PO DAILY 08/30/21 10/29/24 History Insulin Lispro [humaLOG Kwikpen] See Protocol SQ AC-TID 09/21/23 10/29/24 History DULoxetine HCL [Cymbalta] 60 mg PO BID 07/15/24 10/29/24 History Aspirin 81 mg PO DAILY #30 tab 07/25/24 10/29/24 Rx Spironolactone [Aldactone] 25 mg PO DAILY #30 tab 07/25/24 10/29/24 Rx Losartan [Cozaar] 25 mg PO DAILY #30 tab 07/31/24 10/29/24 Rx Metoprolol Succinate (ER) [Toprol 50 mg PO DAILY 30 Days #30 tab 07/31/24 10/29/24 Rx XL] oxyCODONE HCL [oxyCODONE HCL (IR)] 10 mg PO TID PRN 08/03/24 10/29/24 History ALPRAZolam [Xanax] 2 mg PO TID 10/27/24 10/29/24 History Insulin Glargine (Lantus) [Lantus 40 unit SQ QAM 10/27/24 10/29/24 History Vial] Allergies Allergy/AdvReac Type Severity Reaction Status Date / Time Iodinated Contrast Media Allergy Rash/Hives Verified 10/27/24 13:14 Iodine and Iodide Containing Allergy Rash/Hives Verified 10/27/24 13:14 Produc liraglutide [From Saxenda] AdvReac Unknown Nausea & Verified 10/27/24 13:14 Vomiting NSAIDS (Non-Steroidal AdvReac Unknown Nausea & Verified 10/27/24 13:14 Anti-Inflamma Vomiting aspirin AdvReac Nausea & Verified 10/27/24 13:14 Vomiting with high doses azithromycin AdvReac Vomiting Verified 10/27/24 13:14 naproxen [From Naprosyn] AdvReac Nausea & Verified 10/27/24 13:14 Vomiting Physical Exam Vitals: Vital Signs Temp Pulse Pulse Resp BP BP Pulse Ox 10/29/24 15:53 83 18 135/75 100 10/29/24 14:53 67 16 140/53 98 10/29/24 13:53 63 18 139/76 98 10/29/24 13:23 97.5 F L 56 L 17 122/50 94 L 10/29/24 12:52 56 L 16 144/61 99 10/29/24 12:37 62 16 144/63 99 10/29/24 12:22 59 L 16 151/66 98 10/29/24 12:07 55 L 16 169/70 93 L 10/29/24 09:26 98.0 F 81 16 146/67 146/67 95 Intake and Output 10/29/24 10/29/24 10/29/24 06:59 14:59 22:59 Intake Total 1550 Balance 1550 Intake: IV 1550 Other: # Voids 1 # Bowel Movements 0 Weight 103.5 kg Results CBC & Chem 7: 10/29/24 09:07 Labs: Abnormal Lab Results - Last 24 Hours (Table) 10/29/24 10/29/24 10/29/24 Range/Units 09:07 09:10 17:15 Hgb 9.8 L (11.4-16.0) gm/dL Hct 33.8 L (34.0-46.0) % MCHC 29.0 L (31.0-37.0) g/dL RDW 16.3 H (11.5-15.5) % Lymphocytes # 0.7 L (1.0-4.8) k/uL POC Glucose (mg/dL) 382 H 545 H* (70-110) mg/dL
[2024-10-30] MEDS: ALPRAZolam 0.25 MG TAB PO PRN (02:55)
[2024-10-30 05:49] LABS: Glucose,Whole Blood 217 mg/dL (70-110)
[2024-10-30] MEDS: LEVOTHYROXINE 100 MCG TAB PO SCH (06:03)
[2024-10-30 06:46] LABS: Anisocytosis Slight; Basophils % (A) 0 %; Eosinophils % (A) 1 %; HGB 8.6 gm/dL (11.4-16.0); Hypochromasia Marked; Lymphocytes # (A) 1.9 k/uL (1.0-4.8); Lymphocytes % (A) 32 %; MCH 25.6 pg (25.0-35.0); MCHC 29.5 g/dL (31.0-37.0); MCV 86.7 fL (80.0-100.0); Mean Platelet Volume 8.8; Monocytes # (A) 0.3 k/uL (0-1.0); Monocytes % (A) 5 %; Neutrophils # (A) 3.7 k/uL (1.3-7.7); Neutrophils % (A) 61 %; Platelet Count 207 k/uL (150-450); RBC 3.35 m/uL (3.80-5.40); RDW 16.4 % (11.5-15.5); WBC 6.1 k/uL (3.8-10.6)
[2024-10-30 06:59] LABS: African American GFR (CKD) 76 (>60 ml/min/1.73 sqM); Anion Gap 9 mmol/L; Blood Urea Nitrogen 20 mg/dL (7-17); Calcium 8.5 mg/dL (8.4-10.2); Carbon Dioxide 21 mmol/L (22-30); Chloride 104 mmol/L (98-107); Glucose 177 mg/dL (74-99); Non-African American GFR(CKD) 66 (>60 ml/min/1.73 sqM); Potassium 4.1 mmol/L (3.5-5.1); Sodium 134 mmol/L (137-145)
[2024-10-30] MEDS ORDERED: INSULIN LISPRO (HumaLOG) 100 UNIT/ML 10 mL VL SQ SCH ×3 (07:30)
[2024-10-30 07:58] VITALS: BP 105/79; PULSE 105; RESP 16; TEMP 97.5
[2024-10-30] MEDS ORDERED: CLOPIDOGREL 75 MG TAB PO SCH (09:00)
[2024-10-30] MEDS ORDERED: INSULIN GLARGINE (LANTUS) 100 UNIT/ML SYR SQ SCH ×4 (09:00→21:00)
[2024-10-30] MEDS: ASPIRIN 81 MG PO SCH (09:21)
[2024-10-30] MEDS: INSULIN LISPRO (HumaLOG) 100 UNIT/ML 10 mL VL SQ SCH (09:27)
--- NOTE | 2024-10-30 09:27 | DS ---
DISCHARGE SUMMARY DIAGNOSES: 1. Coronary artery disease with unstable angina, previous PCI and myocardial infarction. 2. Type 2 diabetes. 3. Hypertension. 4. History of gastrointestinal bleeding. 5. History of hypertension. HOSPITAL COURSE: Mrs. Rosalinda Brothers was admitted for elective PCI of the right coronary artery. She also had a PCI of LAD in July. I performed the procedure from the right radial approach, noted that the LAD was widely patent with good flow. I then performed PCI of the right coronary artery. Proximal to the stented area, there was a dissection and therefore additional stents were placed. Excellent angiographic result was achieved. Details were discussed with the patient and her . This morning on the , she is doing well, ambulating with a walker. Vital signs are stable. Heart rate is 80, blood pressure is 140/70. The right radial site is clean and dry with a good pulse. The labs and EKG are unremarkable. The patient will be discharged after she is up and about after breakfast. Discharge instructions regarding activity, diet, and medications were given. She will be on dual-antiplatelet therapy, aspirin and Plavix for 6 months in view of GI bleeding. I will be seeing her in the office on November 05. MMODL / IJN: [id number] /
[2024-10-30] MEDS: CLOPIDOGREL 75 MG TAB PO SCH (09:28)
[2024-10-30] MEDS: METOPROLOL SUCCINATE (ER) 50 MG TAB.ER.24H PO SCH (09:28)
[2024-10-30] MEDS: ATORVASTATIN 80 MG TAB PO SCH (09:28)
[2024-10-30] MEDS: SPIRONOLACTONE 25 MG TAB PO SCH (09:28)
[2024-10-30] MEDS: LOSARTAN 50 MG TAB PO SCH (09:28)
[2024-10-30] MEDS: INSULIN GLARGINE (LANTUS) 100 UNIT/ML SYR SQ SCH (10:17)
--- NOTE | 2024-10-30 11:53 | P.PN ---
Subjective Progress Note Date: 10/30/24 69-year-old female with past medical history of multivessel CAD, hypertension, insulin-dependent diabetes mellitus is here status post scheduled left heart catheterization. We were consulted by cardiology for diabetes management. Patient's glucose got as high as 545 today. At time of interview she presented asymptomatic with no complaints. Patient states she only takes insulin at home, but is unsure the exact amount she takes throughout the day. She states she has been compliant with her insulin. Patient denies any fever, chills, dizziness, headache, chest pain, shortness of breath, abdominal pain, nausea, vomiting, urinary symptoms. 10/30 - Patient seen and examined at bedside this morning. She has no acute complaints this morning. Blood glucose very poorly controlled yesterday, which was the cause for medical consult following cardiac catheterization. As of this morning blood glucose showed to be 177. She has no acute complaints at this time. REVIEW OF SYSTEMS: Pertinent positives and negatives noted in HPI. Physical Exam: General: nontoxic, no distress, appears at stated age Derm: warm, dry, intact Head: atraumatic, normocephalic, symmetric Eyes: EOMI, anicteric sclera Mouth: no lip lesion, mucus membranes moist Cardiovascular: S1 S2 reg, no murmur, rubs, or gallops Lungs: CTA bilateral, no rales, no accessory muscle use Abdominal: soft, non-tender to palpataion, no appreciable organomegaly Extremities: no gross muscle atrophy, no edema, no contractures Neuro: Alert, Oriented, CNII-XII grossly intact, gait normal Psych: well appearing, appropriate affect Data Received Today: Labs: WBC 6.1, hemoglobin 8.6, hematocrit 29.0, platelet 207; sodium 134, potassium 4.1, BUN 20, creatinine 0.89, glucose 177, calcium 8.5 Imagining: Assessment and plan #Insulin-dependent diabetes mellitus -SQ sliding scale medium dose -Lantus 40 unit SQ at bedtime and 30 unit SQ in AM -Humalog 15 units SQ AC-TID -Accu-Cheks ACHS -Blood glucose this morning shown to be 177 -Hypoglycemic protocol #Hypothyroidism -Continue Synthroid 200 mcg p.o. daily #Chronic anemia -Hemoglobin this morning 8.6 as compared to 9.8 yesterday -Will continue monitor CBC -No active bleeding #Multivessel CAD -S/p left heart catheterization -Defer management to primary cardiology service -DVT prophylaxis and pain management per primary cardiology service She is medically optimized for discharge from internal medicine perspective. Thank you for this consultation. We will continue to follow peripherally. Please do not hesitate to answer any further questions. DVT ppx: Code status: Full code Anticipated discharge place: Pending clinical course Anticipated discharge time: Pending clinical course Dictation was produced using [employer] dictation software. please excuse any grammatical, word or spelling errors. Deangelo Bourne MD PGY-1 IM I have seen and evaluated the patient today. Discussed with the resident and agree with the residents finding and plan as documented in the resident's note. Changes highlighted in blue font. Objective - Vital Signs Vital signs: Vital Signs Temp 97.5 F L 10/30/24 07:00 Pulse 105 H 10/30/24 07:00 Resp 16 10/30/24 07:00 BP 105/79 10/30/24 07:00 Pulse Ox 96 10/30/24 07:00 FiO2 Intake & Output 10/29/24 10/30/24 10/30/24 18:59 06:59 18:59 Intake Total 1550 Balance 1550 Weight 103.5 kg Intake: IV 1550 Other: Voiding Method Toilet # Voids 1 5 # Bowel Movements 0 - Labs CBC & Chem 7: 10/30/24 06:10 10/30/24 06:10 Labs: Abnormal Lab Results - Last 24 Hours (Table) 10/29/24 10/29/24 10/29/24 Range/Units 09:07 09:10 17:15 RBC (3.80-5.40) m/uL Hgb 9.8 L (11.4-16.0) gm/dL Hct 33.8 L (34.0-46.0) % MCHC 29.0 L (31.0-37.0) g/dL RDW 16.3 H (11.5-15.5) % Lymphocytes # 0.7 L (1.0-4.8) k/uL Sodium (137-145) mmol/L Carbon Dioxide (22-30) mmol/L BUN (7-17) mg/dL Glucose (74-99) mg/dL POC Glucose (mg/dL) 382 H 545 H* (70-110) mg/dL 10/29/24 10/30/24 10/30/24 Range/Units 20:50 05:47 06:10 RBC 3.35 L (3.80-5.40) m/uL Hgb 8.6 L (11.4-16.0) gm/dL Hct 29.0 L (34.0-46.0) % MCHC 29.5 L (31.0-37.0) g/dL RDW 16.4 H (11.5-15.5) % Lymphocytes # (1.0-4.8) k/uL Sodium (137-145) mmol/L Carbon Dioxide (22-30) mmol/L BUN (7-17) mg/dL Glucose (74-99) mg/dL POC Glucose (mg/dL) 500 H 217 H (70-110) mg/dL 10/30/24 Range/Units 06:10 RBC (3.80-5.40) m/uL Hgb (11.4-16.0) gm/dL Hct (34.0-46.0) % MCHC (31.0-37.0) g/dL RDW (11.5-15.5) % Lymphocytes # (1.0-4.8) k/uL Sodium 134 L (137-145) mmol/L Carbon Dioxide 21 L (22-30) mmol/L BUN 20 H (7-17) mg/dL Glucose 177 H (74-99) mg/dL POC Glucose (mg/dL) (70-110) mg/dL
== END 2024-10-30 11:12 | disposition home or self-care (01) ==
LOC: CATHCVL 08:06 → 6NMEDSUR 11:50 → CATHCVL 10-30 11:12
PROVIDERS: ATTEND Internal Medicine Interventional Cardiology
DX: I25.118 Atherosclerotic heart disease of native coronary artery with other forms of angina pectoris (principal); I25.2 Old myocardial infarction; E11.51 Type 2 diabetes mellitus with diabetic peripheral angiopathy without gangrene; I10 Essential (primary) hypertension; E78.5 Hyperlipidemia, unspecified; K92.2 Gastrointestinal hemorrhage, unspecified; E03.9 Hypothyroidism, unspecified; D64.9 Anemia, unspecified; D68.51 Activated protein C resistance; M19.90 Unspecified osteoarthritis, unspecified site; Z86.711 Personal history of pulmonary embolism; Z90.79 Acquired absence of other genital organ(s); Z87.440 Personal history of urinary (tract) infections; Z90.49 Acquired absence of other specified parts of digestive tract; Z86.718 Personal history of other venous thrombosis and embolism; Z95.5 Presence of coronary angioplasty implant and graft; Z85.828 Personal history of other malignant neoplasm of skin; Z90.710 Acquired absence of both cervix and uterus; Z90.722 Acquired absence of ovaries, bilateral; Z87.891 Personal history of nicotine dependence; Z80.1 Family history of malignant neoplasm of trachea, bronchus and lung; Z88.8 Allergy status to other drugs, medicaments and biological substances; Z91.041 Radiographic dye allergy status; Z88.6 Allergy status to analgesic agent; Z88.1 Allergy status to other antibiotic agents; Z79.82 Long term (current) use of aspirin; Z79.4 Long term (current) use of insulin; Z79.02 Long term (current) use of antithrombotics/antiplatelets; Z79.890 Hormone replacement therapy; Z79.899 Other long term (current) drug therapy
CPT/HCPCS: 99152; 99153; 93005; 92978; 93458; 80048; 85025 ×2; C9600; C1894; C1769; C1753; C1725 ×3; J2250; J1644 ×3; J2003; Q9967; J2305; 93799

== ENCOUNTER 2024-12-13 16:45 | Inpatient (IN) | payer MEDICARE, BC ==
[2024-12-13 17:05] LABS: Glucose,Whole Blood 216 mg/dL (70-110)
[2024-12-13 17:27] LABS: Basophils # (A) 0.02 10*3/uL (0.00-0.10); Basophils % (A) 0.2 %; Eosinophils # (A) 0.14 10*3/uL (0.04-0.35); Eosinophils % (A) 1.6 %; HCT 28.1 % (37.2-46.3); HGB 8.2 g/dL (12.0-15.0); Lymphocytes # (A) 1.15 10*3/uL (0.90-5.00); Lymphocytes % (A) 13.1 %; MCHC 29.2 g/dL (32.0-37.0); MCV 82.2 fL (80.0-97.0); Monocytes % (A) 6.9 %; Neutrophils # (A) 6.81 10*3/uL (1.80-7.70); Neutrophils % (A) 77.9 %; Platelet Count 214 10*3/uL (140-440); RBC 3.42 10*6/uL (4.10-5.20); RDW 17.8 % (11.5-14.5); WBC 8.75 10*3/uL (4.50-10.00)
[2024-12-13 17:36] LABS: Partial Thromboplastin Time 22.5 sec (22.0-30.0); Prothrombin Time 10.8 sec (10.0-12.5)
[2024-12-13 17:41] LABS: ALT 9 U/L (4-34); African American GFR (CKD) 58 (>60 ml/min/1.73 sqM); Albumin 3.2 g/dL (3.5-5.0); Alcohol <10 mg/dL; Anion Gap 7 mmol/L; Blood Urea Nitrogen 18 mg/dL (7-17); Calcium 8.3 mg/dL (8.4-10.2); Carbon Dioxide 25 mmol/L (22-30); Chloride 101 mmol/L (98-107); Glucose 205 mg/dL (74-99); Non-African American GFR(CKD) 51 (>60 ml/min/1.73 sqM); Sodium 133 mmol/L (137-145); Total Bilirubin 0.8 mg/dL (0.2-1.3)
[2024-12-13 17:42] LABS: AST 20 U/L (14-36); Alkaline Phosphatase 215 U/L (38-126); Potassium 4.9 mmol/L (3.5-5.1)
--- NOTE | 2024-12-13 17:42 | ED ---
General Adult HPI - General Chief complaint: Altered Mental Status Stated complaint: weakness Time Seen by Provider: 12/13/24 16:48 Source: patient, EMS Mode of arrival: EMS Limitations: no limitations - History of Present Illness Initial comments: Patient brought to the ED by ambulance for evaluation. Per EMS, the patient's daughter called them and reported that the patient has become more weak and lethargic than usual over the past couple of days. Per EMS, the patient's blood glucose was checked and was in the 250s. Patient reports feeling generally weak, but she denies having any other symptoms or complaints at this time. Patient denies having any pain, fever or chills, cough or cold symptoms, dysuria or urinary symptoms, headache, focal neuro deficit, chest pain or pressure, dyspnea, palpitations, abdominal pain, nausea/vomiting/diarrhea, bloody or melanotic stool, or any other symptoms or complaints. - Related Data Home Medications Medication Instructions Recorded Confirmed Clopidogrel [Plavix] 75 mg PO DAILY 07/07/19 12/13/24 traZODone HCL [Desyrel] 200 mg PO HS 07/07/19 12/13/24 Insulin Glargine,Hum.rec.anlog 30 units SQ HS@1800 06/09/21 12/13/24 [Lantus Solostar Pen] Levothyroxine Sodium [Synthroid] 300 mcg PO DAILY 08/30/21 12/13/24 Insulin Lispro [humaLOG Kwikpen] See Protocol SQ ACHS 09/21/23 12/13/24 DULoxetine HCL [Cymbalta] 60 mg PO BID 07/15/24 12/13/24 oxyCODONE HCL [oxyCODONE HCL (IR)] 10 mg PO Q6H PRN 08/03/24 12/13/24 ALPRAZolam [Xanax] 2 mg PO TID PRN 10/27/24 12/13/24 Acetaminophen Tab [Tylenol] 650 mg PO Q4H PRN 12/13/24 12/13/24 Albuterol Sulfate [Ventolin HFA] 2 puff INHALATION RT-Q6H PRN 12/13/24 12/13/24 Atorvastatin [Lipitor] 80 mg PO DAILY 12/13/24 12/13/24 Cyanocobalamin (Vitamin B-12) 1,000 mcg PO DAILY 12/13/24 12/13/24 [Vitamin B-12] Hyoscyamine Sulfate [Levsin] 0.125 mg PO DIRECTED 12/13/24 12/13/24 Insulin Lispro [humaLOG Kwikpen] 10 units SQ AC-BRKFST 12/13/24 12/13/24 Insulin Lispro [humaLOG Kwikpen] 14 units SQ AC-BID@1200,1800 12/13/24 12/13/24 Nitroglycerin Sl Tabs [Nitrostat] 0.4 mg SL Q5M PRN 12/13/24 12/13/24 Ondansetron [Zofran] 4 mg PO DIRECTED PRN 12/13/24 12/13/24 Sennosides-Docusate Sodium 1 tab PO AC-BID 12/13/24 12/13/24 [Senokot-S] methocarbamoL [Robaxin-750] 750 mg PO DIRECTED PRN 12/13/24 12/13/24 polyethylene glycoL 3350 [Miralax] 17 gm PO BID PRN 12/13/24 12/13/24 Previous Rx's Medication Instructions Recorded Aspirin 81 mg PO DAILY #30 tab 07/25/24 Spironolactone [Aldactone] 25 mg PO DAILY #30 tab 07/25/24 Losartan [Cozaar] 25 mg PO DAILY #30 tab 07/31/24 Metoprolol Succinate (ER) [Toprol 50 mg PO DAILY 30 Days #30 tab 07/31/24 XL] Allergies Allergy/AdvReac Type Severity Reaction Status Date / Time Iodinated Contrast Media Allergy Rash/Hives Verified 12/13/24 19:11 Iodine and Iodide Containing Allergy Rash/Hives Verified 12/13/24 19:11 Produc liraglutide [From Saxenda] AdvReac Unknown Nausea & Verified 12/13/24 19:11 Vomiting NSAIDS (Non-Steroidal AdvReac Unknown Nausea & Verified 12/13/24 19:11 Anti-Inflamma Vomiting aspirin AdvReac Nausea & Verified 12/13/24 19:11 Vomiting with high doses azithromycin AdvReac Vomiting Verified 12/13/24 19:11 naproxen [From Naprosyn] AdvReac Nausea & Verified 12/13/24 19:11 Vomiting Review of Systems ROS Statement: Those systems with pertinent positive or pertinent negative responses have been documented in the HPI. ROS Other: All systems not noted in ROS Statement are negative. Past Medical History Past Medical History: Blood Disorder, Cancer, Diabetes Mellitus, Deep Vein Thrombosis (DVT), GERD/Reflux, Hyperlipidemia, Hypertension, Myocardial Infarction (TX), Neurologic Disorder, Osteoarthritis (OA), Pneumonia, Pulmonary Embolus (PE), Thyroid Disorder Additional Past Medical History / Comment(s): See Dr Babcock's H&P. Factor 5 Leiden, hx DVT L leg, hx PE L lung, hx [place] X5, palpitations, IDDM type II, neuropathy bilateral legs/feet, lymphedema L leg, charcot syndrome L foot, chronic low back pain, bilateral sciatica, hx bronchitis, anemia, hypothyroid, constipation, hx UTI, IBS, sinus problems, worsening tremors, hx skin cancer removal, hx pelvic fracture, clausterphobia, hx severe vertigo, poor balance and prone to falls. Last Myocardial Infarction Date:: January 2020 History of Any Multi-Drug Resistant Organisms: VRE Date of last positivie culture/infection: 08/24/23 MDRO Source:: Urine Past Surgical History: Appendectomy, Cholecystectomy, Heart Catheterization With Stent, Hernia Repair, Hysterectomy, Tonsillectomy Additional Past Surgical History / Comment(s): Bilateral salpingectomy, bilateral oophorectomy, abdominal hernia surgeries, L foot fracture, bilateral c ataract removals, lumbar epidural injections. Past Anesthesia/Blood Transfusion Reactions: No Reported Reaction Additional Past Anesthesia/Blood Transfusion Reaction / Comment(s): Pt has received blood in past without reaction. Date of Last Stent Placement:: January 2020 Smoking Status: Former smoker - Past Family History Mother Family Medical History: COPD Additional Family Medical History / Comment(s): Mother was a smoker. Father Family Medical History: Cancer Additional Family Medical History / Comment(s): Lung cancer. Father was a smoker. Son(s) Family Medical History: Deep Vein Thrombosis (DVT) General Exam Limitations: no limitations General appearance: other (Patient is alert, but somewhat slow to respond at times) Head exam: Present: atraumatic, normocephalic Eye exam: Present: normal appearance, PERRL, EOMI ENT exam: Present: mucous membranes dry Neck exam: Present: other (Trachea is in midline; no nuchal rigidity or meningeal signs are present on exam). Absent: tenderness, meningismus Respiratory exam: Present: normal lung sounds bilaterally. Absent: respiratory distress, wheezes, rales Cardiovascular Exam: Present: regular rate, normal rhythm, normal heart sounds, other (Normal radial pulses bilaterally) GI/Abdominal exam: Present: soft. Absent: tenderness, guarding Extremities exam: Present: other (Negative Homans' sign bilaterally). Absent: tenderness, pedal edema, calf tenderness Back exam: Present: normal inspection Neurological exam: Present: alert, oriented X3, CN II-XII intact, other (Patient is alert, but somewhat slow to respond at times; patient is oriented to person, place and time). Absent: motor sensory deficit Skin exam: Present: warm, dry, normal color Course Vital Signs 12/13/24 12/13/24 12/13/24 17:32 18:00 18:52 Temperature 98.9 F Pulse Rate 72 73 73 Respiratory 18 20 18 Rate Blood Pressure 109/74 100/55 105/53 O2 Sat by Pulse 99 99 99 Oximetry - Reevaluation(s) Reevaluation #1: 12/13/24 19:53 Case, H&P, test results thus far and ED management thus far were discussed with Dr. Palma. She accepts hospital admission. She has no further recommendations at this time. 12/13/24 19:57 Patient remains A&O x 3 and breathing comfortably. Patient denies development of any new symptoms while in the ED. Patient is aware of her test results, and she agrees with hospital admission at this time. EKG Findings - EKG Comments: EKG Findings:: Normal sinus rhythm, ventricular rate of 75 bpm, no ectopy, normal RI and QRS intervals, normal QT interval, normal axis, no ST or T wave abnormality, low voltage QRS Medical Decision Making - Medical Decision Making Was pt. sent in by a medical professional or institution (, PA, PSYCHOLOGY CLINICIAN, urgent care, hospital, or [facility]...) When possible be specific @ -No Did you speak to anyone other than the patient for history (EMS, parent, family, police, friend...)? What history was obtained from this source @ -History was also obtained from EMS. Did you review nursing and triage notes (agree or disagree)? Why? @ -I reviewed and agree with nursing and triage notes Were old charts reviewed (outside hosp., previous admission, EMS record, old EKG, old radiological studies, urgent care reports/EKG's, [facility] records)? Report findings @ -No old charts were reviewed Differential Diagnosis (chest pain, altered mental status, abdominal pain women, abdominal pain men, vaginal bleeding, weakness, fever, dyspnea, syncope, headache, dizziness, GI bleed, back pain, seizure, CVA, palpatations, mental health, musculoskeletal)? @ -Differential Altered Mental Status: Hypoglycemia, DKA, hypercapnia, ETOH, overdose, trauma, myxedema coma, encephalopathy, infection, psychosis, intracranial hemorrhage, hepatic encephalopathy, CVA, electrolyte abnormality, dehydration, renal disease, this is not meant to be an all-inclusive list EKG interpreted by me (3pts min.). @ -As above X-rays interpreted by me (1pt min.). @ -Chest x-ray was reviewed myself and shows mild pulmonary vascular congestion and cardiomegaly. I agree with the radiologist's interpretation as above. CT interpreted by me (1pt min.). @ -Noncontrast head CT was reviewed myself and shows no acute intracranial abnormality. I agree with the radiologist's interpretation as above. U/S interpreted by me (1pt. min.). @ -None done What testing was considered but not performed or refused? (CT, X-rays, U/S, labs)? Why? @ -None What meds were considered but not given or refused? Why? @ -None Did you discuss the management of the patient with other professionals (professionals i.e. , PA, PSYCHOLOGY CLINICIAN, lab, RT, psych nurse, case management social worker, baggage and mail agent, teacher, administrative services officer, caser)? Give summary @ -As above. Was smoking cessation discussed for >3mins.? @ -No Was critical care preformed (if so, how long)? @ -No Were there social determinants of health that impacted care today? How? (Homelessness, low income, unemployed, alcoholism, drug addiction, transportation, low edu. Level, literacy, decrease access to med. care, skilled nursing, rehab)? @ -No Was there de-escalation of care discussed even if they declined (Discuss DNR or withdrawal of care, Hospice)? DNR status @ -No What co-morbidities impacted this encounter? (DM, HTN, Smoking, COPD, CAD, Cancer, CVA, ARF, Chemo, Hep., AIDS, mental health diagnosis, sleep apnea, morbid obesity)? @ -None Was patient admitted / discharged? Hospital course, mention meds given and route, prescriptions, significant lab abnormalities, going to OR and other pertinent info. @ -Patient has chronic anemia. Patient's labs are otherwise fairly unremarkable. Patient's chest x-ray shows mild pulmonary vascular congestion, however, the patient appears dry on examination, so she was given a 500 mL IV bolus of normal saline in the ED. Patient's head CT is negative. Patient's urine is still pending at this time. Patient is afebrile and without leukocytosis. Will admit the patient to the hospital for observation and further evaluation/care. Dr. Gillette has accepted hospital admission. Patient agrees with this plan. Undiagnosed new problem with uncertain prognosis? @ -No Drug Therapy requiring intensive monitoring for toxicity (Heparin, Nitro, Insulin, Cardizem)? @ -No Were any procedures done? @ -No Diagnosis/symptom? @ -Altered mental status, generalized weakness Acute, or Chronic, or Acute on Chronic? @ -Default Uncomplicated (without systemic symptoms) or Complicated (systemic symptoms)? @ -Default Side effects of treatment? @ -No Exacerbation, Progression, or Severe Exacerbation? @ -No Poses a threat to life or bodily function? How? (Chest pain, [place], [place], pneumonia, PE, COPD, DKA, ARF, appy, cholecystitis, CVA, Diverticulitis, Homicidal, Suicidal, threat to staff... and all critical care pts) @ -No - Lab Data Result diagrams: 12/13/24 17:07 12/13/24 17:07 Lab Results 12/13/24 12/13/24 12/13/24 Range/Units 17:03 17:07 17:07 WBC 8.75 (4.50-10.00) 10*3/uL RBC 3.42 L (4.10-5.20) 10*6/uL Hgb 8.2 L (12.0-15.0) g/dL Hct 28.1 L (37.2-46.3) % MCV 82.2 (80.0-97.0) fL MCH 24.0 L (27.0-32.0) pg MCHC 29.2 L (32.0-37.0) g/dL Plt Count 214 (140-440) 10*3/uL MPV 11.0 (9.5-12.2) fL Immature Gran % (Auto) 0.3 % Neutrophils % 77.9 % Lymphocytes % 13.1 % Monocytes % 6.9 % Eosinophils % 1.6 % Basophils % 0.2 % Immature Gran # 0.03 (0.00-0.04) 10*3/uL Neutrophils # 6.81 (1.80-7.70) 10*3/uL Lymphocytes # 1.15 (0.90-5.00) 10*3/uL Monocytes # 0.60 (0.20-1.00) 10*3/uL Eosinophils # 0.14 (0.04-0.35) 10*3/uL Basophils # 0.02 (0.00-0.10) 10*3/uL PT 10.8 (10.0-12.5) sec INR 1.0 (<1.2) APTT 22.5 (22.0-30.0) sec Sodium (137-145) mmol/L Potassium (3.5-5.1) mmol/L Chloride (98-107) mmol/L Carbon Dioxide (22-30) mmol/L Anion Gap mmol/L BUN (7-17) mg/dL Creatinine (0.52-1.04) mg/dL Est GFR (CKD-EPI)AfAm (>60 ml/min/1.73 sqM) Est GFR (CKD-EPI)NonAf (>60 ml/min/1.73 sqM) Glucose (74-99) mg/dL POC Glucose (mg/dL) 216 H (70-110) mg/dL POC Glu [employer] Navarreet Artemio Plasma Lactic Acid Lloyd (0.7-2.0) mmol/L Calcium (8.4-10.2) mg/dL Total Bilirubin (0.2-1.3) mg/dL AST (14-36) U/L ALT (4-34) U/L Alkaline Phosphatase (38-126) U/L Ammonia (<30) umol/L Troponin I (0.000-0.034) ng/mL NT-Pro-B Natriuret Pep pg/mL Total Protein (6.3-8.2) g/dL Albumin (3.5-5.0) g/dL TSH (0.465-4.680) mIU/L Free T4 (0.78-2.19) ng/dL Serum Alcohol mg/dL Acetone, Qual (Negative) Influenza Type A (PCR) (Not Detectd) Influenza Type B (PCR) (Not Detectd) RSV (PCR) (Not Detectd) SARS-CoV-2 (PCR) (Not Detectd) 12/13/24 12/13/24 12/13/24 Range/Units 17:07 17:07 17:07 WBC (4.50-10.00) 10*3/uL RBC (4.10-5.20) 10*6/uL Hgb (12.0-15.0) g/dL Hct (37.2-46.3) % MCV (80.0-97.0) fL MCH (27.0-32.0) pg MCHC (32.0-37.0) g/dL Plt Count (140-440) 10*3/uL MPV (9.5-12.2) fL Immature Gran % (Auto) % Neutrophils % % Lymphocytes % % Monocytes % % Eosinophils % % Basophils % % Immature Gran # (0.00-0.04) 10*3/uL Neutrophils # (1.80-7.70) 10*3/uL Lymphocytes # (0.90-5.00) 10*3/uL Monocytes # (0.20-1.00) 10*3/uL Eosinophils # (0.04-0.35) 10*3/uL Basophils # (0.00-0.10) 10*3/uL PT (10.0-12.5) sec INR (<1.2) APTT (22.0-30.0) sec Sodium 133 L (137-145) mmol/L Potassium 4.9 (3.5-5.1) mmol/L Chloride 101 (98-107) mmol/L Carbon Dioxide 25 (22-30) mmol/L Anion Gap 7 mmol/L BUN 18 H (7-17) mg/dL Creatinine 1.11 H (0.52-1.04) mg/dL Est GFR (CKD-EPI)AfAm 58 (>60 ml/min/1.73 sqM) Est GFR (CKD-EPI)NonAf 51 (>60 ml/min/1.73 sqM) Glucose 205 H (74-99) mg/dL POC Glucose (mg/dL) (70-110) mg/dL POC Glu [employer] Plasma Lactic Acid Lloyd 1.0 (0.7-2.0) mmol/L Calcium 8.3 L (8.4-10.2) mg/dL Total Bilirubin 0.8 (0.2-1.3) mg/dL AST 20 (14-36) U/L ALT 9 (4-34) U/L Alkaline Phosphatase 215 H (38-126) U/L Ammonia <9 (<30) umol/L Troponin I 0.017 (0.000-0.034) ng/mL NT-Pro-B Natriuret Pep 797 pg/mL Total Protein 7.0 (6.3-8.2) g/dL Albumin 3.2 L (3.5-5.0) g/dL TSH 0.172 L (0.465-4.680) mIU/L Free T4 1.98 (0.78-2.19) ng/dL Serum Alcohol <10 mg/dL Acetone, Qual Negative (Negative) Influenza Type A (PCR) (Not Detectd) Influenza Type B (PCR) (Not Detectd) RSV (PCR) (Not Detectd) SARS-CoV-2 (PCR) (Not Detectd) 12/13/24 Range/Units 17:24 WBC (4.50-10.00) 10*3/uL RBC (4.10-5.20) 10*6/uL Hgb (12.0-15.0) g/dL Hct (37.2-46.3) % MCV (80.0-97.0) fL MCH (27.0-32.0) pg MCHC (32.0-37.0) g/dL Plt Count (140-440) 10*3/uL MPV (9.5-12.2) fL Immature Gran % (Auto) % Neutrophils % % Lymphocytes % % Monocytes % % Eosinophils % % Basophils % % Immature Gran # (0.00-0.04) 10*3/uL Neutrophils # (1.80-7.70) 10*3/uL Lymphocytes # (0.90-5.00) 10*3/uL Monocytes # (0.20-1.00) 10*3/uL Eosinophils # (0.04-0.35) 10*3/uL Basophils # (0.00-0.10) 10*3/uL PT (10.0-12.5) sec INR (<1.2) APTT (22.0-30.0) sec Sodium (137-145) mmol/L Potassium (3.5-5.1) mmol/L Chloride (98-107) mmol/L Carbon Dioxide (22-30) mmol/L Anion Gap mmol/L BUN (7-17) mg/dL Creatinine (0.52-1.04) mg/dL Est GFR (CKD-EPI)AfAm (>60 ml/min/1.73 sqM) Est GFR (CKD-EPI)NonAf (>60 ml/min/1.73 sqM) Glucose (74-99) mg/dL POC Glucose (mg/dL) (70-110) mg/dL POC Glu [employer] Plasma Lactic Acid Lloyd (0.7-2.0) mmol/L Calcium (8.4-10.2) mg/dL Total Bilirubin (0.2-1.3) mg/dL AST (14-36) U/L ALT (4-34) U/L Alkaline Phosphatase (38-126) U/L Ammonia (<30) umol/L Troponin I (0.000-0.034) ng/mL NT-Pro-B Natriuret Pep pg/mL Total Protein (6.3-8.2) g/dL Albumin (3.5-5.0) g/dL TSH (0.465-4.680) mIU/L Free T4 (0.78-2.19) ng/dL Serum Alcohol mg/dL Acetone, Qual (Negative) Influenza Type A (PCR) Not Detected (Not Detectd) Influenza Type B (PCR) Not Detected (Not Detectd) RSV (PCR) Not Detected (Not Detectd) SARS-CoV-2 (PCR) Not Detected (Not Detectd) - Radiology Data Chest x-ray: Cardiomegaly and mild pulmonary vascular congestion. Correlate with BNP for congestive heart failure. Noncontrast head CT: No acute intracranial process. Disposition Clinical Impression: Altered mental status, Generalized weakness Disposition: ADMITTED IP TO THIS HOSP Condition: Stable Is patient prescribed a controlled substance at d/c from ED?: No Referrals: None,Stated [REFERRING] - 1-2 days Time of Disposition: 19:53
--- NOTE | 2024-12-13 17:45 | XR ---
EXAMINATION TYPE: XR chest 1V portable DATE OF EXAM: 12/13/2024 4:59 PM COMPARISON: 08/04/2024. CLINICAL INDICATION: Female, 69 years old with history of altered mental status; [facility] TECHNIQUE: XR chest 1V portable Frontal view of the chest. FINDINGS: Lungs/Pleura: There is no evidence of pleural effusion, focal consolidation, or pneumothorax. Pulmonary vascularity: Unremarkable. Heart/mediastinum: Cardiomediastinal silhouette is unremarkable. Musculoskeletal: No acute osseous pathology. IMPRESSION: Cardiomegaly and mild pulmonary vascular congestion. Correlate with BNP for congestive heart failure. [facility], , 12/13/2024 5:43 PM
[2024-12-13 18:05] LABS: Influenza A Not Detected (Not Detectd); Influenza B Not Detected (Not Detectd); RSV Not Detected (Not Detectd)
[2024-12-13 18:14] LABS: T4, Free (Free Thyroxine) 1.98 ng/dL (0.78-2.19)
[2024-12-13 18:28] LABS: NT-Pro-B-Type Natriuretic Pept 797 pg/mL
[2024-12-13] MEDS: SODIUM CHLORIDE 0.9% 500 ML 500 ML IV ONE (18:39)
--- NOTE | 2024-12-13 19:45 | CT ---
EXAMINATION TYPE: CT brain wo con DATE OF EXAM: 12/13/2024 7:32 PM COMPARISON: None. CLINICAL INDICATION: Female, 69 years old with history of Altered mental status, ams TECHNIQUE: Brain: Axial CT images of the brain were obtained with coronal and sagittal reformats created and rev iewed. Contrast used: None. Oral contrast used: None. CT DLP: 1215.6 mGycm, Automated exposure control for dose reduction was used. FINDINGS: Brain: Extra-axial spaces: No abnormal extra-axial fluid collections. Ventricular system: Dilatation in proportion to cerebral atrophy. Cerebral parenchyma: Cerebral atrophy. No acute intraparenchymal hemorrhage or mass effect. The arevalo -white junction is well differentiated. Scattered hypoattenuating areas are seen within the white mat ter. Cerebellum: Unremarkable. Mass effect: No evidence of midline shift. Intracranial vasculature: Atherosclerotic calcifications of the intracranial vessels. Soft tissues: Normal. Calvarium/osseous structures: No depressed skull fracture. Paranasal sinuses and mastoid air cells: Mild scattered paranasal sinus disease. Visualized orbits: Bilateral aphakia IMPRESSION: No acute intracranial process. [facility], , 12/13/2024 7:42 PM
[2024-12-13] MEDS ORDERED: NALOXONE 0.4 MG/ML 1 ML VIAL IV PRN (19:53)
[2024-12-13 22:41] LABS: Appearance,Urine Cloudy (Clear); Bacteria,Urine Many /hpf; Bilirubin,Urine Negative (Negative); Blood,Urine Negative (Negative); Color,Urine Yellow; Glucose,Urine (UA) Trace (Negative); Hyaline Casts,Urine 14 /lpf (0-2); Ketones,Urine Negative (Negative); Leukocyte Esterase,Urine Large (Negative); Mucus,Urine Rare /hpf; Nitrite,Urine Negative (Negative); PH, Urine 5.5 (5.0-8.0); Protein,Urine Trace (Negative); RBC,Urine <1 /hpf (0-5); Specific Gravity,Urine 1.015 (1.001-1.035); Squamous Epithelial Cell,Urine 4 /hpf (0-4); WBC,Urine 35 /hpf (0-5)
[2024-12-13 23:08] LABS: Amphetamine Screen,Urine Not Detected (NotDetected); Barbiturate Screen,Urine Not Detected (NotDetected); Benzodiazepines Screen,Urine Detected (NotDetected); Cocaine Screen,Urine Not Detected (NotDetected); Methadone Screen, Urine Not Detected (NotDetected); Opiate Screen,Urine Not Detected (NotDetected); Oxycodone Screen, Urine Detected (NotDetected); Phencyclidine Screen,Urine Not Detected (NotDetected); Tricyclic Antidepressant,Urine Not Detected (NotDetected); Urn Cannabinoid Scrn Not Detected (NotDetected)
[2024-12-13 23:42] LABS: Glucose,Whole Blood 170 mg/dL (70-110)
[2024-12-14] MEDS ORDERED: NITROGLYCERIN SL TABS 0.4 MG TAB SUBLINGUAL PRN (00:06)
[2024-12-14] MEDS ORDERED: polyethylene glycoL 3350 17 GM POWD.PACK PO PRN (00:06)
[2024-12-14] MEDS ORDERED: ALBUTEROL NEBULIZED 2.5 MG/3 ML INHALATION PRN (00:06)
[2024-12-14] MEDS ORDERED: DEXTROSE 50% SYRINGE 50 ML IVP PRN ×2 (00:26)
[2024-12-14] MEDS ORDERED: cefTRIAXone 1 GM in DEXTROSE 5% IN WATER 50 ML IVPB ONE (00:45)
[2024-12-14] MEDS: ONDANSETRON ODT 4 MG TAB PO PRN (01:01)
[2024-12-14] MEDS: ACETAMINOPHEN TAB 325 MG TAB PO PRN (03:17)
[2024-12-14 05:52] LABS: Glucose,Whole Blood 216 mg/dL (70-110)
[2024-12-14] MEDS: LEVOTHYROXINE 100 MCG TAB PO SCH (06:24)
[2024-12-14] MEDS: INSULIN LISPRO (HumaLOG) 100 UNIT/ML 10 mL VL SQ SCH (06:24)
[2024-12-14] MEDS: IPRATROPIUM-ALBUTEROL 3 ML NEB INHALATION SCH (08:32)
[2024-12-14] MEDS: CYANOCOBALAMIN 500 MCG TAB PO SCH (08:52)
[2024-12-14] MEDS: ASPIRIN 81 MG PO SCH (08:52)
[2024-12-14] MEDS: METOPROLOL SUCCINATE (ER) 50 MG TAB.ER.24H PO SCH (08:53)
[2024-12-14] MEDS: ATORVASTATIN 80 MG TAB PO SCH (08:53)
[2024-12-14] MEDS: CLOPIDOGREL 75 MG TAB PO SCH (08:53)
[2024-12-14 09:57] LABS: ALT 8 U/L (10-49); AST 14 U/L (14-35); Albumin 3.1 g/dL (3.8-4.9); Albumin/Globulin Ratio 0.91 Ratio (1.60-3.17); Alkaline Phosphatase 235 U/L (41-126); BUN/Creat Ratio 15.18 Ratio (12.00-20.00); Basophils # (A) 0.03 X 10*3/uL (0.00-0.10); Basophils % (A) 0.3 %; Blood Urea Nitrogen 16.7 mg/dL (9.0-27.0); Calcium 7.9 mg/dL (8.7-10.3); Carbon Dioxide 22.9 mmol/L (21.6-31.8); Chloride 102 mmol/L (96-109); Eosinophils # (A) 0.18 X 10*3/uL (0.04-0.35); Eosinophils % (A) 1.8 %; Globulin 3.4 g/dL (1.6-3.3); Glucose 195 mg/dL (70-110); HCT 27.8 % (39.6-50.0); HGB 7.7 g/dL (13.0-17.0); Lymphocytes # (A) 1.39 X 10*3/uL (0.90-5.00); Lymphocytes % (A) 14.2 %; MCH 23.4 pg (27.0-32.0); MCHC 27.7 g/dL (32.0-37.0); MCV 84.5 FL (80.0-97.0); Mean Platelet Volume 11.9 FL (9.5-12.2); Monocytes # (A) 0.59 X 10*3/uL (0.20-1.00); NRBC Per 100 WBC 0 X 10*3/uL (0.00-0.01); Neutrophils # (A) 7.57 X 10*3/uL (1.80-7.70); Neutrophils % (A) 77.4 %; Platelet Count 221 X 10*3/uL (140-440); Potassium 4.6 mmol/L (3.5-5.5); RBC 3.29 X 10*6/uL (4.40-5.60); RDW 18.1 % (11.5-14.5); Sodium 134 mmol/L (135-145); Total Bilirubin 0.3 mg/dL (0.3-1.2); Total Protein 6.5 g/dL (6.2-8.2); WBC 9.79 X 10*3/uL (4.50-10.00)
[2024-12-14] MEDS ORDERED: methocarbamoL 750 MG TAB PO PRN (11:01)
--- NOTE | 2024-12-14 11:19 | P.HPIM ---
History of Present Illness Patient is a pleasant 69-year-old female was brought in because of excessive lethargy generalized weakness has been going on for couple days and patient O2 saturations have dropped as well. Patient saturations dropped to low 80s. Malgorzata perez does have history of congestive heart failure EF of around 25% from the echocardiogram that was obtained in month of July. Patient denied any fever chills patient has some itching sensation in the vaginal area but denied any dysuria increased urinary frequency urine is slightly abnormal although patient was believed to have urinary tract infection in the ER and was started on antibiotic on it was subsequently admitted. Patient denied any blood in the stools or dark stools. Patient had history of GI bleed in the past requiring transfer to higher level facility. He is also on high doses of Xanax as well as Percocet the dose of which was recently increased. REVIEW OF SYSTEMS: All other systems are negative except those mentioned in the HPI PHYSICAL EXAMINATION: GENERAL: The patient is alert and oriented x3, not in any acute distress. Well developed, well nourished. HEENT: Pupils are round and equally reacting to light. EOMI. No scleral icterus. No conjunctival pallor. Normocephalic, atraumatic. No pharyngeal erythema. No thyromegaly. CARDIOVASCULAR: S1 and S2 present. No murmurs, rubs, or gallops. PULMONARY: Chest is clear to auscultation, no wheezing or crackles. ABDOMEN: Soft, nontender, nondistended, normoactive bowel sounds. No palpable organomegaly. MUSCULOSKELETAL: No joint swelling or deformity. EXTREMITIES: No cyanosis, clubbing, bilateral lower extremity edema as per the patient and family member states chronic NEUROLOGICAL: Gross neurological examination did not reveal any focal deficits. SKIN: No rashes. Assessment and plan -Acute hypoxic respiratory failure/hypoxia: Secondary to mild pulmonary edema will obtain a proBNP chest x-ray showed pulmonary edema. Patient will be started on Lasix 40 mg twice a day. - Congestive heart failure chronic systolic function with acute exacerbation patient with EF of 25% ischemic cardiomyopathy Lasix as mentioned above - Hypervolemic hyponatremia secondary to CHF --Anxiety disorder patient will be resumed on duloxetine but will cut down the dose of benzodiazepine patient is on a very high dose 2 mg 3 times daily which will be cut down to 0.5 mg 3 times daily as needed - Chronic low back pain we will hold off on the Percocet patient was started on tramadol for pain - History of DVT in the past because of the GI bleed patient is presently not on any anticoagulation at this time patient was restarted on DVT prophylaxis - Gastroesophageal flux disease - Hyperlipidemia Hypothyroidism patient is on a very high dose of levothyroxine with TSH being low we will cut down the dose of levothyroxine to 275 mg. -Mild acute renal failure: Secondary to prerenal azotemia SECONDARY to congestive heart failure generalized weakness: PT and OT evaluation DVT prophylaxis: Subcutaneous heparin- Past Medical History Past Medical History: Blood Disorder, Cancer, Diabetes Mellitus, Deep Vein Thrombosis (DVT), GERD/Reflux, Hyperlipidemia, Hypertension, Myocardial Infarction (NH), Neurologic Disorder, Osteoarthritis (OA), Pneumonia, Pulmonary Embolus (PE), Thyroid Disorder Additional Past Medical History / Comment(s): See Dr Babcock's H&P. Factor 5 Leiden, hx DVT L leg, hx PE L lung, hx NH X5, palpitations, IDDM type II, neuropathy bilateral legs/feet, lymphedema L leg, charcot syndrome L foot, chronic low back pain, bilateral sciatica, hx bronchitis, anemia, hypothyroid, constipation, hx UTI, IBS, sinus problems, worsening tremors, hx skin cancer removal, hx pelvic fracture, clausterphobia, hx severe vertigo, poor balance and prone to falls. Last Myocardial Infarction Date:: January 2020 History of Any Multi-Drug Resistant Organisms: VRE Date of last positivie culture/infection: 08/24/23 MDRO Source:: Urine Past Surgical History: Appendectomy, Cholecystectomy, Heart Catheterization With Stent, Hernia Repair, Hysterectomy, Tonsillectomy Additional Past Surgical History / Comment(s): Bilateral salpingectomy, bilateral oophorectomy, abdominal hernia surgeries, L foot fracture, bilateral cataract removals, lumbar epidural injections. Past Anesthesia/Blood Transfusion Reactions: No Reported Reaction Additional Past Anesthesia/Blood Transfusion Reaction / Comment(s): Pt has received blood in past without reaction. Date of Last Stent Placement:: January 2020 Past Psychological History: Anxiety, Depression, Panic Disorder Additional Psychological History / Comment(s): Severe panic attacks. Clausterphobia. Smoking Status: Former smoker Past Alcohol Use History: None Reported Additional Past Alcohol Use History / Comment(s): STARTED SMOKING AT AGE 20, quit smoking in 2012, smoked 1ppd. Past Drug Use History: None Reported - Past Family History Mother Family Medical History: COPD Additional Family Medical History / Comment(s): Mother was a smoker. Father Family Medical History: Cancer Additional Family Medical History / Comment(s): Lung cancer. Father was a smoker. Son(s) Family Medical History: Deep Vein Thrombosis (DVT) Medications and Allergies Home Medications Medication Instructions Recorded Confirmed Type Clopidogrel [Plavix] 75 mg PO DAILY 07/07/19 12/13/24 History traZODone HCL [Desyrel] 200 mg PO HS 07/07/19 12/13/24 History Insulin Glargine,Hum.rec.anlog 30 units SQ HS@1800 06/09/21 12/13/24 History [Lantus Solostar Pen] Levothyroxine Sodium [Synthroid] 300 mcg PO DAILY 08/30/21 12/13/24 History Insulin Lispro [humaLOG Kwikpen] See Protocol SQ ACHS 09/21/23 12/13/24 History DULoxetine HCL [Cymbalta] 60 mg PO BID 07/15/24 12/13/24 History Aspirin 81 mg PO DAILY #30 tab 07/25/24 12/13/24 Rx Spironolactone [Aldactone] 25 mg PO DAILY #30 tab 07/25/24 12/13/24 Rx Losartan [Cozaar] 25 mg PO DAILY #30 tab 07/31/24 12/13/24 Rx Metoprolol Succinate (ER) [Toprol 50 mg PO DAILY 30 Days #30 tab 07/31/24 12/13/24 Rx XL] oxyCODONE HCL [oxyCODONE HCL (IR)] 10 mg PO Q6H PRN 08/03/24 12/13/24 History ALPRAZolam [Xanax] 2 mg PO TID PRN 10/27/24 12/13/24 History Acetaminophen Tab [Tylenol] 650 mg PO Q4H PRN 12/13/24 12/13/24 History Albuterol Sulfate [Ventolin HFA] 2 puff INHALATION RT-Q6H PRN 12/13/24 12/13/24 History Atorvastatin [Lipitor] 80 mg PO DAILY 12/13/24 12/13/24 History Cyanocobalamin (Vitamin B-12) 1,000 mcg PO DAILY 12/13/24 12/13/24 History [Vitamin B-12] Hyoscyamine Sulfate [Levsin] 0.125 mg PO DIRECTED 12/13/24 12/13/24 History Insulin Lispro [humaLOG Kwikpen] 10 units SQ AC-BRKFST 12/13/24 12/13/24 History Insulin Lispro [humaLOG Kwikpen] 14 units SQ AC-BID@1200,1800 12/13/24 12/13/24 History Nitroglycerin Sl Tabs [Nitrostat] 0.4 mg SL Q5M PRN 12/13/24 12/13/24 History Ondansetron [Zofran] 4 mg PO DIRECTED PRN 12/13/24 12/13/24 History Sennosides-Docusate Sodium 1 tab PO AC-BID 12/13/24 12/13/24 History [Senokot-S] methocarbamoL [Robaxin-750] 750 mg PO DIRECTED PRN 12/13/24 12/13/24 History polyethylene glycoL 3350 [Miralax] 17 gm PO BID PRN 12/13/24 12/13/24 History Allergies Allergy/AdvReac Type Severity Reaction Status Date / Time Iodinated Contrast Media Allergy Rash/Hives Verified 12/13/24 19:11 Iodine and Iodide Containing Allergy Rash/Hives Verified 12/13/24 19:11 Produc liraglutide [From Saxenda] AdvReac Unknown Nausea & Verified 12/13/24 19:11 Vomiting NSAIDS (Non-Steroidal AdvReac Unknown Nausea & Verified 12/13/24 19:11 Anti-Inflamma Vomiting aspirin AdvReac Nausea & Verified 12/13/24 19:11 Vomiting with high doses azithromycin AdvReac Vomiting Verified 12/13/24 19:11 naproxen [From Naprosyn] AdvReac Nausea & Verified 12/13/24 19:11 Vomiting Physical Exam Vitals: Vital Signs Temp Pulse Pulse Resp BP BP BP 12/14/24 07:22 97.6 F 79 18 124/64 12/14/24 02:00 97.9 F 79 16 94/51 12/13/24 23:25 98.4 F 78 16 91/58 12/13/24 23:05 80 18 109/58 12/13/24 22:15 80 16 110/57 12/13/24 20:03 73 16 105/67 12/13/24 18:52 73 18 105/53 12/13/24 18:00 73 20 100/55 12/13/24 17:32 98.9 F 72 18 109/74 Pulse Ox 12/14/24 07:22 97 12/14/24 02:00 99 12/13/24 23:25 100 12/13/24 23:05 98 12/13/24 22:15 97 12/13/24 20:03 99 12/13/24 18:52 99 12/13/24 18:00 99 12/13/24 17:32 99 Intake and Output 12/13/24 12/14/24 12/14/24 22:59 06:59 14:59 Intake Total 540 Output Total 400 Balance 140 Intake: Oral 540 Output: Urine 400 Other: Voiding Method Diaper External Catheter Weight 90.718 kg 90.718 kg Results CBC & Chem 7: 12/14/24 03:32 12/14/24 03:32 Labs: Abnormal Lab Results - Last 24 Hours (Table) 12/13/24 12/13/24 12/13/24 Range/Units 17:03 17:07 17:07 RBC 3.42 L (4.10-5.20) 10*6/uL Hgb 8.2 L (12.0-15.0) g/dL Hct 28.1 L (37.2-46.3) % MCH 24.0 L (27.0-32.0) pg MCHC 29.2 L (32.0-37.0) g/dL RDW (11.5-14.5) % Sodium 133 L (137-145) mmol/L BUN 18 H (7-17) mg/dL Creatinine 1.11 H (0.52-1.04) mg/dL Glucose 205 H (74-99) mg/dL POC Glucose (mg/dL) 216 H (70-110) mg/dL Calcium 8.3 L (8.4-10.2) mg/dL ALT (10-49) U/L Alkaline Phosphatase 215 H (38-126) U/L Albumin 3.2 L (3.5-5.0) g/dL Globulin (1.6-3.3) g/dL Albumin/Globulin Ratio (1.60-3.17) Ratio TSH 0.172 L (0.465-4.680) mIU/L Urine Appearance (Clear) Urine Protein (Negative) Urine Glucose (UA) (Negative) Ur Leukocyte Esterase (Negative) Urine WBC (0-5) /hpf Urine WBC Clumps (None) /hpf Urine Bacteria (None) /hpf Hyaline Casts (0-2) /lpf Urine Mucus (None) /hpf Ur Oxycodone Screen (NotDetected) U Benzodiazepines Scrn (NotDetected) 12/13/24 12/13/24 12/14/24 Range/Units 22:19 23:38 03:32 RBC 3.29 L (4.10-5.20) 10*6/uL Hgb 7.7 L (12.0-15.0) g/dL Hct 27.8 L (37.2-46.3) % MCH 23.4 L (27.0-32.0) pg MCHC 27.7 L (32.0-37.0) g/dL RDW 18.1 H (11.5-14.5) % Sodium (137-145) mmol/L BUN (7-17) mg/dL Creatinine (0.52-1.04) mg/dL Glucose (74-99) mg/dL POC Glucose (mg/dL) 170 H (70-110) mg/dL Calcium (8.4-10.2) mg/dL ALT (10-49) U/L Alkaline Phosphatase (38-126) U/L Albumin (3.5-5.0) g/dL Globulin (1.6-3.3) g/dL Albumin/Globulin Ratio (1.60-3.17) Ratio TSH (0.465-4.680) mIU/L Urine Appearance Cloudy H (Clear) Urine Protein Trace H (Negative) Urine Glucose (UA) Trace H (Negative) Ur Leukocyte Esterase Large H (Negative) Urine WBC 35 H (0-5) /hpf Urine WBC Clumps Rare H (None) /hpf Urine Bacteria Many H (None) /hpf Hyaline Casts 14 H (0-2) /lpf Urine Mucus Rare H (None) /hpf Ur Oxycodone Screen Detected H (NotDetected) U Benzodiazepines Scrn Detected H (NotDetected) 12/14/24 12/14/24 Range/Units 03:32 05:51 RBC (4.10-5.20) 10*6/uL Hgb (12.0-15.0) g/dL Hct (37.2-46.3) % MCH (27.0-32.0) pg MCHC (32.0-37.0) g/dL RDW (11.5-14.5) % Sodium 134 L (137-145) mmol/L BUN (7-17) mg/dL Creatinine (0.52-1.04) mg/dL Glucose 195 H (74-99) mg/dL POC Glucose (mg/dL) 216 H (70-110) mg/dL Calcium 7.9 L (8.4-10.2) mg/dL ALT 8 L (10-49) U/L Alkaline Phosphatase 235 H (38-126) U/L Albumin 3.1 L (3.5-5.0) g/dL Globulin 3.4 H (1.6-3.3) g/dL Albumin/Globulin Ratio 0.91 L (1.60-3.17) Ratio TSH (0.465-4.680) mIU/L Urine Appearance (Clear) Urine Protein (Negative) Urine Glucose (UA) (Negative) Ur Leukocyte Esterase (Negative) Urine WBC (0-5) /hpf Urine WBC Clumps (None) /hpf Urine Bacteria (None) /hpf Hyaline Casts (0-2) /lpf Urine Mucus (None) /hpf Ur Oxycodone Screen (NotDetected) U Benzodiazepines Scrn (NotDetected)
[2024-12-14] MEDS: SPIRONOLACTONE 25 MG TAB PO SCH (11:28)
[2024-12-14] MEDS: DULoxetine HCL 60 MG CAPSULE.DR PO SCH (11:28)
[2024-12-14] MEDS: FUROSEMIDE 10 MG/ML 4 ML VIAL IV SCH (11:28)
[2024-12-14] MEDS: LOSARTAN 25 MG TAB PO SCH (11:28)
[2024-12-14] MEDS: FLUCONAZOLE 100 MG TAB PO SCH (11:28)
[2024-12-14 12:08] LABS: Glucose,Whole Blood 269 mg/dL (70-110)
--- NOTE | 2024-12-14 12:31 | P.CRDCN ---
History of Present Illness Consult date: 12/14/24 History of present illness: HPI: Patient presented with generalized weakness and increased lethargy for the last few days, noticing oxygen saturation in the low 80s. Reports increased work of breathing, shortness of breath, anxiety, orthopnea, and paroxysmal nocturnal dyspnea. No active chest pain or chest pressure noted. She also reports that he had poor appetite and abdominal heaviness . She however denies any chest pain chest pressure. She denies any lightheadedness dizziness or fall at home. She denies any loss of consciousness. Pertinent Vitals: BP 91/58, HR 78; repeat BP 124/68, HR 79 Pertinent cardiac Labs: Hb 8.2, repeat 7.7, Plt 214, Na 133, K 4.9, BUN 18, Art Coordinator 1.1, Lactate 1, NTproBNP 700, Trop negative, TSH 0.1, Free T4 Cardiac home meds: Aspirin, Lipitor, Plavix, Insulin, Losartan 25, Metoprolol XL 50, Aldactone 25 Interestingly patient was discharged on Bumex 1 mg on last hospital discharge however it is not listed on her medication list. Pertinent cardiac testing: - EK12/2024: Sinus rhythm with very low voltage precordial complexes, non- specific ST changes, poor R wave progression - Chest X-ray: 12/2024: Mild increased interstitial markings and edema, no significant congestion or consolidation Cath: 10/2024, PCI to ostial and proximal and mid RCA, known prior 2 layers of stent in mid LAD with mild in-stent disease, moderate nonobstructive LCx disease - Echo: 07/2024: EF 25%, hypokinetic anterolateral wall REVIEW OF SYSTEMS: 14 point review of system is negative except what is mentioned above in HPI. PHYSICAL EXAMINATION: Neck: Brisk carotid upstroke, no jugular venous distention. Lungs: Diminished breath sounds bilaterally with mild crackles, poor inspiratory effort. Heart: Regular rate and rhythm, S1-S2, no murmur or rub. Abdomen: Soft nontender, positive bowel sounds. Extremities: No edema, intact distal pulses. Neuro: Mild confusion, oriented, no focal deficits. Detailed neuro exam was not performed. ASSESSMENT: # Acute on chronic heart failure exacerbation # Stable CAD with history of multiple PCI, last PCI 10/2024 to RCA # Ischemic cardiomyopathy, EF 25%, NYHA class III symptoms # Type 2 diabetes # Hypertension # Dyslipidemia # Metabolic encephalopathy, likely multifactorial # Iron deficiency anemia # Morbid obesity PLAN: # Continue home medications # Start Lasix 40 mg IV BID. Continue IV diuretics for 1 to 2 days and thereafter consider discharging on Bumex. # Obtain updated echocardiogram # For anemia, start iron IV for 3 days to replenish iron stores due to low ferritin Past Medical History Past Medical History: Blood Disorder, Cancer, Diabetes Mellitus, Deep Vein Thrombosis (DVT), GERD/Reflux, Hyperlipidemia, Hypertension, Myocardial Infarct ion (NH), Neurologic Disorder, Osteoarthritis (OA), Pneumonia, Pulmonary Embolus (PE), Thyroid Disorder Additional Past Medical History / Comment(s): See Dr Babcock's H&P. Factor 5 Leiden, hx DVT L leg, hx PE L lung, hx NH X5, palpitations, IDDM type II, neuropathy bilateral legs/feet, lymphedema L leg, charcot syndrome L foot, chronic low back pain, bilateral sciatica, hx bronchitis, anemia, hypothyroid, constipation, hx UTI, IBS, sinus problems, worsening tremors, hx skin cancer removal, hx pelvic fracture, clausterphobia, hx severe vertigo, poor balance and prone to falls. Last Myocardial Infarction Date:: January 2020 History of Any Multi-Drug Resistant Organisms: VRE Date of last positivie culture/infection: 08/24/23 MDRO Source:: Urine Past Surgical History: Appendectomy, Cholecystectomy, Heart Catheterization With Stent, Hernia Repair, Hysterectomy, Tonsillectomy Additional Past Surgical History / Comment(s): Bilateral salpingectomy, bilateral oophorectomy, abdominal hernia surgeries, L foot fracture, bilateral cataract removals, lumbar epidural injections. Past Anesthesia/Blood Transfusion Reactions: No Reported Reaction Additional Past Anesthesia/Blood Transfusion Reaction / Comment(s): Pt has received blood in past without reaction. Date of Last Stent Placement:: January 2020 Past Psychological History: Anxiety, Depression, Panic Disorder Additional Psychological History / Comment(s): Severe panic attacks. Clausterphobia. Smoking Status: Former smoker Past Alcohol Use History: None Reported Additional Past Alcohol Use History / Comment(s): STARTED SMOKING AT AGE 20, quit smoking in 2012, smoked 1ppd. Past Drug Use History: None Reported - Past Family History Mother Family Medical History: COPD Additional Family Medical History / Comment(s): Mother was a smoker. Father Family Medical History: Cancer Additional Family Medical History / Comment(s): Lung cancer. Father was a smoker. Son(s) Family Medical History: Deep Vein Thrombosis (DVT) Medications and Allergies Home Medications Medication Instructions Recorded Confirmed Type Clopidogrel [Plavix] 75 mg PO DAILY 07/07/19 12/13/24 History traZODone HCL [Desyrel] 200 mg PO HS 07/07/19 12/13/24 History Insulin Glargine,Hum.rec.anlog 30 units SQ HS@1800 06/09/21 12/13/24 History [Lantus Solostar Pen] Levothyroxine Sodium [Synthroid] 300 mcg PO DAILY 08/30/21 12/13/24 History Insulin Lispro [humaLOG Kwikpen] See Protocol SQ ACHS 09/21/23 12/13/24 History DULoxetine HCL [Cymbalta] 60 mg PO BID 07/15/24 12/13/24 History Aspirin 81 mg PO DAILY #30 tab 07/25/24 12/13/24 Rx Spironolactone [Aldactone] 25 mg PO DAILY #30 tab 07/25/24 12/13/24 Rx Losartan [Cozaar] 25 mg PO DAILY #30 tab 07/31/24 12/13/24 Rx Metoprolol Succinate (ER) [Toprol 50 mg PO DAILY 30 Days #30 tab 07/31/24 12/13/24 Rx XL] oxyCODONE HCL [oxyCODONE HCL (IR)] 10 mg PO Q6H PRN 08/03/24 12/13/24 History ALPRAZolam [Xanax] 2 mg PO TID PRN 10/27/24 12/13/24 History Acetaminophen Tab [Tylenol] 650 mg PO Q4H PRN 12/13/24 12/13/24 History Albuterol Sulfate [Ventolin HFA] 2 puff INHALATION RT-Q6H PRN 12/13/24 12/13/24 History Atorvastatin [Lipitor] 80 mg PO DAILY 12/13/24 12/13/24 History Cyanocobalamin (Vitamin B-12) 1,000 mcg PO DAILY 12/13/24 12/13/24 History [Vitamin B-12] Hyoscyamine Sulfate [Levsin] 0.125 mg PO DIRECTED 12/13/24 12/13/24 History Insulin Lispro [humaLOG Kwikpen] 10 units SQ AC-BRKFST 12/13/24 12/13/24 History Insulin Lispro [humaLOG Kwikpen] 14 units SQ AC-BID@1200,1800 12/13/24 12/13/24 History Nitroglycerin Sl Tabs [Nitrostat] 0.4 mg SL Q5M PRN 12/13/24 12/13/24 History Ondansetron [Zofran] 4 mg PO DIRECTED PRN 12/13/24 12/13/24 History Sennosides-Docusate Sodium 1 tab PO AC-BID 12/13/24 12/13/24 History [Senokot-S] methocarbamoL [Robaxin-750] 750 mg PO DIRECTED PRN 12/13/24 12/13/24 History polyethylene glycoL 3350 [Miralax] 17 gm PO BID PRN 12/13/24 12/13/24 History Allergies Allergy/AdvReac Type Severity Reaction Status Date / Time Iodinated Contrast Media Allergy Rash/Hives Verified 12/13/24 19:11 Iodine and Iodide Containing Allergy Rash/Hives Verified 12/13/24 19:11 Produc liraglutide [From Saxenda] AdvReac Unknown Nausea & Verified 12/13/24 19:11 Vomiting NSAIDS (Non-Steroidal AdvReac Unknown Nausea & Verified 12/13/24 19:11 Anti-Inflamma Vomiting aspirin AdvReac Nausea & Verified 12/13/24 19:11 Vomiting with high doses azithromycin AdvReac Vomiting Verified 12/13/24 19:11 naproxen [From Naprosyn] AdvReac Nausea & Verified 12/13/24 19:11 Vomiting Physical Exam Vitals: Vital Signs Temp Pulse Pulse Resp BP BP BP 12/14/24 12:02 75 12/14/24 11:51 73 12/14/24 07:22 97.6 F 79 18 124/64 12/14/24 02:00 97.9 F 79 16 94/51 12/13/24 23:25 98.4 F 78 16 91/58 12/13/24 23:05 80 18 109/58 12/13/24 22:15 80 16 110/57 12/13/24 20:03 73 16 105/67 12/13/24 18:52 73 18 105/53 12/13/24 18:00 73 20 100/55 12/13/24 17:32 98.9 F 72 18 109/74 Pulse Ox 12/14/24 12:02 12/14/24 11:51 12/14/24 07:22 97 12/14/24 02:00 99 12/13/24 23:25 100 12/13/24 23:05 98 12/13/24 22:15 97 12/13/24 20:03 99 12/13/24 18:52 99 12/13/24 18:00 99 12/13/24 17:32 99 Intake and Output 12/13/24 12/14/24 12/14/24 22:59 06:59 14:59 Intake Total 540 Output Total 400 Balance 140 Intake: Oral 540 Output: Urine 400 Other: Voiding Method Diaper External Catheter Weight 90.718 kg 90.718 kg Results 12/14/24 03:32 12/14/24 03:32 Cardiac Enzymes 12/13/24 12/13/24 12/14/24 Range/Units 17:07 17:07 03:32 AST 20 14 (14-36) U/L Troponin I 0.017 (0.000-0.034) ng/mL Coagulation 12/13/24 Range/Units 17:07 PT 10.8 (10.0-12.5) sec APTT 22.5 (22.0-30.0) sec CBC 12/13/24 12/14/24 Range/Units 17:07 03:32 WBC 8.75 9.79 (4.50-10.00) 10*3/uL RBC 3.42 L 3.29 L (4.10-5.20) 10*6/uL Hgb 8.2 L 7.7 L (12.0-15.0) g/dL Hct 28.1 L 27.8 L (37.2-46.3) % Plt Count 214 221 (140-440) 10*3/uL Comprehensive Metabolic Panel 12/13/24 12/14/24 Range/Units 17:07 03:32 Sodium 133 L 134 L (137-145) mmol/L Potassium 4.9 4.6 (3.5-5.1) mmol/L Chloride 101 102 (98-107) mmol/L Carbon Dioxide 25 22.9 (22-30) mmol/L BUN 18 H 16.7 (7-17) mg/dL Creatinine 1.11 H 1.1 (0.52-1.04) mg/dL Glucose 205 H 195 H (74-99) mg/dL Calcium 8.3 L 7.9 L (8.4-10.2) mg/dL AST 20 14 (14-36) U/L ALT 9 8 L (4-34) U/L Alkaline Phosphatase 215 H 235 H (38-126) U/L Total Protein 7.0 6.5 (6.3-8.2) g/dL Albumin 3.2 L 3.1 L (3.5-5.0) g/dL Current Medications Generic Name Dose Route Start Last Admin Trade Name Freq PRN Reason Stop Dose Admin Acetaminophen 650 mg 12/14/24 00:06 12/14/24 08:59 Acetaminophen Tab 325 Mg Tab PO 650 mg Q4H PRN Administration Mild Pain (Scale 1 to 3) Albuterol Sulfate 2.5 mg 12/14/24 00:06 Albuterol Nebulized 2.5 Mg/3 Ml INHALATION RT-Q6H PRN Shortness Of Breath Albuterol/Ipratropium 3 ml 12/14/24 08:00 12/14/24 11:48 Ipratropium-Albuterol 3 Ml Neb INHALATION 3 ml RT-QID FLO Administration Alprazolam 0.5 mg 12/14/24 11:09 Alprazolam 0.5 Mg Tab PO TID PRN Anxiety Aspirin 81 mg 12/14/24 09:00 12/14/24 08:52 Aspirin 81 Mg PO 81 mg DAILY FLO Administration Atorvastatin Calcium 80 mg 12/14/24 09:00 12/14/24 08:53 Atorvastatin 80 Mg Tab PO 80 mg DAILY FLO Administration Clopidogrel Bisulfate 75 mg 12/14/24 09:00 12/14/24 08:53 Clopidogrel 75 Mg Tab PO 75 mg DAILY FLO Administration Cyanocobalamin 1,000 mcg 12/14/24 09:00 12/14/24 08:52 Cyanocobalamin 500 Mcg Tab PO 1,000 mcg DAILY FLO Administration Dapagliflozin 10 mg 12/14/24 12:15 Dapagliflozin Propanediol 10 Mg Tablet PO DAILY FLO Dextrose/Water 25 ml 12/14/24 00:26 Dextrose 50% Syringe 50 Ml IVP PER PROTOCOL PRN Hypoglycemia Protocol Dextrose/Water 50 ml 12/14/24 00:26 Dextrose 50% Syringe 50 Ml IVP PER PROTOCOL PRN Hypoglycemia Protocol Duloxetine HCl 60 mg 12/14/24 11:15 12/14/24 11:28 Duloxetine Hcl 60 Mg Capsule.Dr PO 60 mg BID [facility] Administration Fluconazole 100 mg 12/14/24 11:30 12/14/24 11:28 Fluconazole 100 Mg Tab PO 100 mg DAILY [facility] Administration Protocol Furosemide 40 mg 12/14/24 11:15 12/14/24 11:28 Furosemide 10 Mg/Ml 4 Ml Vial IV 40 mg Q12HR [facility] Administration Heparin Sodium (Porcine) 5,000 unit 12/14/24 16:00 Heparin Sodium,Porcine 5,000 Unit/Ml 1 Ml Vial SQ Q8HR [facility] Ferric Sodium Gluconate 125 mg 110 mls @ 100 mls/hr 12/14/24 13:00 / Sodium Chloride IVPB 12/16/24 10:05 DAILY [facility] Insulin Glargine 30 unit 12/14/24 18:00 Insulin Glargine (Lantus) 100 Unit/Ml Syr SQ HS@1800 [facility] Insulin Human Lispro 0 unit 12/14/24 07:30 12/14/24 06:24 Insulin Lispro (Humalog) 100 Unit/Ml 10 Ml Vl SQ 6 unit ACHS [facility] Administration Protocol Levothyroxine Sodium 274 mcg 12/15/24 06:30 Levothyroxine 137 Mcg Tab PO DAILY@0630 [facility] Losartan Potassium 25 mg 12/14/24 11:15 12/14/24 11:28 Losartan 25 Mg Tab PO 25 mg DAILY [facility] Administration Methocarbamol 750 mg 12/14/24 11:01 Methocarbamol 750 Mg Tab PO QID PRN MUSCLE SPASM Metoprolol Succinate 50 mg 12/14/24 09:00 12/14/24 08:53 Metoprolol Succinate (Er) 50 Mg Tab.Er.24h PO 50 mg DAILY [facility] Administration Naloxone HCl 0.2 mg 12/13/24 19:53 Naloxone 0.4 Mg/Ml 1 Ml Vial IV Q2M PRN Opioid Reversal Nitroglycerin 0.4 mg 12/14/24 00:06 Nitroglycerin Sl Tabs 0.4 Mg Tab SUBLINGUAL Q5M PRN Chest Pain Ondansetron HCl 4 mg 12/14/24 00:06 12/14/24 01:01 Ondansetron Odt 4 Mg Tab PO 4 mg Q8H PRN Administration Nausea Polyethylene Glycol 17 gm 12/14/24 00:06 Polyethylene Glycol 3350 17 Gm Powd.Pack PO BID PRN Constipation Senna/Docusate Sodium 1 each 12/14/24 00:06 Sennosides-Docusate Sodium 1 Each Tab PO AC-BID PRN Constipation Spironolactone 25 mg 12/14/24 11:15 12/14/24 11:28 Spironolactone 25 Mg Tab PO 25 mg DAILY FLO Administration Tramadol HCl 50 mg 12/14/24 11:03 Tramadol 50 Mg Tab PO QID PRN Moderate to Severe Pain (4-10) Intake and Output 12/13/24 12/14/24 12/14/24 22:59 06:59 14:59 Intake Total 540 Output Total 400 Balance 140 Intake: Oral 540 Output: Urine 400 Other: Voiding Method Diaper External Catheter Weight 90.718 kg 90.718 kg 12/14/24 03:32 12/14/24 03:32
[2024-12-14] MEDS: ALPRAZolam 0.5 MG TAB PO PRN (12:45)
[2024-12-14] MEDS: DAPAGLIFLOZIN PROPANEDIOL 10 MG TABLET PO SCH (12:45)
[2024-12-14] MEDS: SODIUM FERRIC GLUCONAT-SUCROSE 125 MG in SODIUM CHLORIDE 0.9% 100 ML IVPB SCH (13:22)
[2024-12-14] MEDS: HEPARIN SODIUM,PORCINE 5,000 UNIT/ML 1 ML VIAL SQ SCH (17:00)
[2024-12-14 17:17] LABS: Glucose,Whole Blood 262 mg/dL (70-110)
[2024-12-14] MEDS: INSULIN GLARGINE (LANTUS) 100 UNIT/ML SYR SQ SCH (17:42)
[2024-12-14 20:00] LABS: Glucose,Whole Blood 283 mg/dL (70-110)
[2024-12-15] MEDS: traMADol 50 MG TAB PO PRN (01:09)
[2024-12-15 06:06] LABS: Glucose,Whole Blood 212 mg/dL (70-110)
[2024-12-15] MEDS: LEVOTHYROXINE 137 MCG TAB PO SCH (06:39)
[2024-12-15] MEDS: SENNOSIDES-DOCUSATE SODIUM 1 EACH TAB PO PRN (08:39)
[2024-12-15 09:19] LABS: Chol/HDL Ratio 2.11 Ratio; LDL Cholesterol,Calculated 17.6 mg/dL (0.0-131.0); VLDL Calculation 16.56 mg/dL (5.00-40.00)
--- NOTE | 2024-12-15 11:19 | P.PN ---
Subjective HPI: Patient presented with generalized weakness and increased lethargy for the last few days, noticing oxygen saturation in the low 80s. Reports increased work of breathing, shortness of breath, anxiety, orthopnea, and paroxysmal nocturnal dyspnea. No active chest pain or chest pressure noted. She also reports that he had poor appetite and abdominal heaviness . She however denies any chest pain chest pressure. She denies any lightheadedness dizziness or fall at home. She denies any loss of consciousness. Pertinent Vitals: BP 91/58, HR 78; repeat BP 124/68, HR 79 Pertinent cardiac Labs: Hb 8.2, repeat 7.7, Plt 214, Na 133, K 4.9, BUN 18, Dental Detail Representative 1.1, Lactate 1, NTproBNP 700, Trop negative, TSH 0.1, Free T4 Cardiac home meds: Aspirin, Lipitor, Plavix, Insulin, Losartan 25, Metoprolol XL 50, Aldactone 25 Interestingly patient was discharged on Bumex 1 mg on last hospital discharge however it is not listed on her medication list. Pertinent cardiac testing: - EK12/2024: Sinus rhythm with very low voltage precordial complexes, non- specific ST changes, poor R wave progression - Chest X-ray: 12/2024: Mild increased interstitial markings and edema, no significant congestion or consolidation Cath: 10/2024, PCI to ostial and proximal and mid RCA, known prior 2 layers of stent in mid LAD with mild in-stent disease, moderate nonobstructive LCx disease - Echo: 07/2024: EF 25%, hypokinetic anterolateral wall 12/15/2024 Patient seen and examined resting comfortably in bed getting nebulizer treatments. Breathing has improved. Echocardiogram has been obtained and will be reviewed. Blood pressure 101/64 heart rate 72 afebrile maintaining oxygen saturation on nasal cannula. She is maintaining a negative fluid balance. PHYSICAL EXAMINATION: Neck: Brisk carotid upstroke, no jugular venous distention. Lungs: Diminished breath sounds bilaterally with mild crackles, poor inspiratory effort. Heart: Regular rate and rhythm, S1-S2, no murmur or rub. Abdomen: Soft nontender, positive bowel sounds. Extremities: No edema, intact distal pulses. Neuro: Mild confusion, oriented, no focal deficits. Detailed neuro exam was not performed. ASSESSMENT: # Acute on chronic heart failure exacerbation # Stable CAD with history of multiple PCI, last PCI 10/2024 to RCA # Ischemic cardiomyopathy, EF 25%, NYHA class III symptoms # Type 2 diabetes # Hypertension # Dyslipidemia # Metabolic encephalopathy, likely multifactorial # Iron deficiency anemia # Morbid obesity PLAN: Transition to oral diuretics. An acute coronary event has been ruled out. Continue with iron supplementation. Follow-up in the office with Dr. Babcock upon discharge. Nurse Practitioner note has been reviewed, I agree with a documented findings and plan of care. Patient was seen and examined. Objective - Vital Signs Vital signs: Vital Signs Temp 98.3 F 12/15/24 07:18 Pulse 72 12/15/24 08:57 Resp 18 12/15/24 08:00 BP 101/64 12/15/24 07:18 Pulse Ox 96 12/15/24 07:18 FiO2 Intake & Output 12/14/24 12/15/24 12/15/24 18:59 06:59 18:59 Intake Total 118 Output Total 800 2800 Balance -800 -2800 118 Intake: Oral 118 Output: Urine 800 2800 Other: Voiding Method Diaper Diaper External Catheter External Catheter - Labs CBC & Chem 7: 12/14/24 03:32 12/14/24 03:32 Labs: Abnormal Lab Results - Last 24 Hours (Table) 12/13/24 12/14/24 12/14/24 Range/Units 17:07 03:32 03:32 POC Glucose (mg/dL) (70-110) mg/dL Hemoglobin A1c 9.7 H (<=6.0) % NT-Pro-B Natriuret Pep 661 H (0-125) pg/mL HDL Cholesterol 30.80 L (40.00-60.00) mg/dL 12/14/24 12/14/24 12/14/24 Range/Units 12:03 17:16 19:59 POC Glucose (mg/dL) 269 H 262 H 283 H (70-110) mg/dL Hemoglobin A1c (<=6.0) % NT-Pro-B Natriuret Pep (0-125) pg/mL HDL Cholesterol (40.00-60.00) mg/dL 12/15/24 Range/Units 06:03 POC Glucose (mg/dL) 212 H (70-110) mg/dL Hemoglobin A1c (<=6.0) % NT-Pro-B Natriuret Pep (0-125) pg/mL HDL Cholesterol (40.00-60.00) mg/dL Microbiology - Last 24 Hours (Table) 12/13/24 22:19 Urine Culture - Preliminary Urine,Voided Gram Neg Bacilli
--- NOTE | 2024-12-15 12:19 | P.DS ---
Providers Date of admission: 12/14/24 11:08 Attending physician: Evelia Palma Consults: 12/14/24 11:06 Consult Physician Routine Consulting Provider: Diane Babcock Consult Reason/Comments: CHF, increased weakness and lethargy Do you want consulting provider notified?: Yes Primary care physician: Miguel Sy [facility] Course: Patient is a pleasant 69-year-old female was brought in because of excessive lethargy generalized weakness has been going on for couple days and patient O2 saturations have dropped as well. Patient saturations dropped to low 80s. Patient does have history of congestive heart failure EF of around 25% from the echocardiogram that was obtained in month of July. Patient denied any fever chills patient has some itching sensation in the vaginal area but denied any dysuria increased urinary frequency urine is slightly abnormal although patient was believed to have urinary tract infection in the ER and was started on antibiotic on it was subsequently admitted. Patient denied any blood in the stools or dark stools. Patient had history of GI bleed in the past requiring transfer to higher level facility. He is also on high doses of Xanax as well as Percocet the dose of which was recently increased. 12/15/2024 Patient is significantly better today physical therapy Occupational Therapy evaluated the patient the patient does not need to go to rehab patient will be discharged today. I extensively counseled the patient that she will need to cut down on her pain medications I recommended her to cut down on oxycodone to every 12 hours from every 6 hours patient is complaining of severe pain also asked her to cut down her Xanax dose to half. Patient may resume trazodone. Patient was started on 40 mg of oral Lasix. Patient is also on Aldactone and losartan for heart failure with EF of around 20% patient serum sodium improved from 133-134 after IV diuretics patient will be discharged today follow-up with PCP and cardiology as an outpatient. PHYSICAL EXAMINATION: GENERAL: The patient is alert and oriented x3, not in any acute distress. Well developed, well nourished. HEENT: Pupils are round and equally reacting to light. EOMI. No scleral icterus. No conjunctival pallor. Normocephalic, atraumatic. No pharyngeal erythema. No thyromegaly. CARDIOVASCULAR: S1 and S2 present. No murmurs, rubs, or gallops. PULMONARY: Chest is clear to auscultation, no wheezing or crackles. ABDOMEN: Soft, nontender, nondistended, normoactive bowel sounds. No palpable organomegaly. MUSCULOSKELETAL: No joint swelling or deformity. EXTREMITIES: No cyanosis, clubbing, bilateral lower extremity edema as per the patient and family member states chronic NEUROLOGICAL: Gross neurological examination did not reveal any focal deficits. SKIN: No rashes. Assessment and plan -Acute hypoxic respiratory failure/hypoxia: Secondary to mild pulmonary edema improved with IV Lasix patient will be off oxygen will be discharged today -Severe toxic encephalopathy from high doses of opiates and benzodiazepines which are being cut upon discharge - Congestive heart failure chronic systolic function with acute exacerbation patient with EF of 25% ischemic cardiomyopathy Lasix as mentioned above - Hypervolemic hyponatremia secondary to CHF, improved --Anxiety disorder patient will be resumed on duloxetine, cutting down the dose of Xanax - Chronic low back: Cutting down the dose of Percocet as well - History of DVT in the past because of the GI bleed patient is presently not on any anticoagulation - Gastroesophageal flux disease - Hyperlipidemia Hypothyroidism patient is on a very high dose of levothyroxine with TSH being low we will cut down the dose of levothyroxine to 275 mg. -Mild acute renal failure: Secondary to prerenal azotemia SECONDARY to congestive heart failure generalized weakness: PT and OT evaluation, awaiting their recommendation if patient does not need subacute rehab will be discharged today Patient Condition at Discharge: Stable Plan - Discharge Summary Discharge Rx Participant: No New Discharge Prescriptions: New Furosemide [Lasix] 40 mg PO DAILY #30 tab Continue Clopidogrel [Plavix] 75 mg PO DAILY traZODone HCL [Desyrel] 200 mg PO HS Insulin Lispro [humaLOG Kwikpen] See Protocol SQ ACHS Aspirin 81 mg PO DAILY #30 tab Acetaminophen Tab [Tylenol] 650 mg PO Q4H PRN PRN Reason: Pain Atorvastatin [Lipitor] 80 mg PO DAILY Cyanocobalamin (Vitamin B-12) [Vitamin B-12] 1,000 mcg PO DAILY Insulin Lispro [humaLOG Kwikpen] 14 units SQ AC-BID@1200,1800 Ondansetron [Zofran] 4 mg PO DIRECTED PRN PRN Reason: Nausea Sennosides-Docusate Sodium [Senokot-S] 1 tab PO AC-BID Insulin Glargine,Hum.rec.anlog [Lantus Solostar Pen] 30 units SQ HS@1800 Levothyroxine Sodium [Synthroid] 300 mcg PO DAILY DULoxetine HCL [Cymbalta] 60 mg PO BID Spironolactone [Aldactone] 25 mg PO DAILY #30 tab Losartan [Cozaar] 25 mg PO DAILY #30 tab Metoprolol Succinate (ER) [Toprol XL] 50 mg PO DAILY 30 Days #30 tab Albuterol Sulfate [Ventolin HFA] 2 puff INHALATION RT-Q6H PRN PRN Reason: Shortness Of Breath Insulin Lispro [humaLOG Kwikpen] 10 units SQ AC-BRKFST methocarbamoL [Robaxin-750] 750 mg PO QID PRN PRN Reason: Muscle Spasm Nitroglycerin Sl Tabs [Nitrostat] 0.4 mg SL Q5M PRN PRN Reason: Chest Pain polyethylene glycoL 3350 [Miralax] 17 gm PO BID PRN PRN Reason: Constipation Changed ALPRAZolam [Xanax] 1 mg PO TID PRN #0 PRN Reason: Anxiety oxyCODONE HCL [oxyCODONE HCL (IR)] 10 mg PO Q12HR PRN #0 PRN Reason: Pain Discontinued Hyoscyamine Sulfate [Levsin] 0.125 mg PO TID-W/MEALS Discharge Medication List Clopidogrel [Plavix] 75 mg PO DAILY 07/07/19 [History] traZODone HCL [Desyrel] 200 mg PO HS 07/07/19 [History] Insulin Glargine,Hum.rec.anlog [Lantus Solostar Pen] 30 units SQ HS@1800 06/09/21 [History] Levothyroxine Sodium [Synthroid] 300 mcg PO DAILY 08/30/21 [History] Insulin Lispro [humaLOG Kwikpen] See Protocol SQ ACHS 09/21/23 [History] DULoxetine HCL [Cymbalta] 60 mg PO BID 07/15/24 [History] Aspirin 81 mg PO DAILY #30 tab 07/25/24 [Rx] Spironolactone [Aldactone] 25 mg PO DAILY #30 tab 07/25/24 [Rx] Losartan [Cozaar] 25 mg PO DAILY #30 tab 07/31/24 [Rx] Metoprolol Succinate (ER) [Toprol XL] 50 mg PO DAILY 30 Days #30 tab 07/31/24 [Rx] Acetaminophen Tab [Tylenol] 650 mg PO Q4H PRN 12/13/24 [History] Albuterol Sulfate [Ventolin HFA] 2 puff INHALATION RT-Q6H PRN 12/13/24 [History] Atorvastatin [Lipitor] 80 mg PO DAILY 12/13/24 [History] Cyanocobalamin (Vitamin B-12) [Vitamin B-12] 1,000 mcg PO DAILY 12/13/24 [History] Insulin Lispro [humaLOG Kwikpen] 10 units SQ AC-BRKFST 12/13/24 [History] Insulin Lispro [humaLOG Kwikpen] 14 units SQ AC-BID@1200,1800 12/13/24 [History] Nitroglycerin Sl Tabs [Nitrostat] 0.4 mg SL Q5M PRN 12/13/24 [History] Ondansetron [Zofran] 4 mg PO DIRECTED PRN 12/13/24 [History] Sennosides-Docusate Sodium [Senokot-S] 1 tab PO AC-BID 12/13/24 [History] methocarbamoL [Robaxin-750] 750 mg PO QID PRN 12/13/24 [History] polyethylene glycoL 3350 [Miralax] 17 gm PO BID PRN 12/13/24 [History] ALPRAZolam [Xanax] 1 mg PO TID PRN #0 12/15/24 [Rx] Furosemide [Lasix] 40 mg PO DAILY #30 tab 12/15/24 [Rx] oxyCODONE HCL [oxyCODONE HCL (IR)] 10 mg PO Q12HR PRN #0 12/15/24 [Rx] Follow up Appointment(s)/Referral(s): Miguel Sy MD [Primary Care Provider] - 1 Week Diane Babcock MD [STAFF PHYSICIAN] - 1 Week Discharge Disposition: HOME SELF-CARE
[2024-12-15 12:29] LABS: Glucose,Whole Blood 233 mg/dL (70-110)
[2024-12-15 14:28] VITALS: BP 122/69; PULSE 85; RESP 16; TEMP 98.2
--- NOTE | 2024-12-15 16:52 | CA ---
Transthoracic Echo Report Name: Rosalinda Brothers Age: 69 Gender: F : 1955 Exam Date: 12/15/2024 11:48 Exam Location: [place] [facility] Ht (in): 65 Wt (lb): 200 Ordering Physician: Alfonso Knight MD ([id number]) Attending/Referring Phys: Turntable Engineer Abby Wong RDCS Procedure CPT: Indications: ischemic cardiomyopathy Cardiac Hx: DM, HTN High cholesterol, ND Technical Quality: Good Contrast 1: Total Dose (mL): Contrast 2: Total Dose (mL): MEASUREMENTS (Male / Female) Normal Values 2D ECHO LV Diastolic Diameter PLAX 4.3 cm 4.2 - 5.9 / 3.9 - 5.3 cm LV Systolic Diameter PLAX 3.0 cm IVS Diastolic Thickness 1.2 cm 0.6 - 1.0 / 0.6 - 0.9 cm LVPW Diastolic Thickness 1.1 cm 0.6 - 1.0 / 0.6 - 0.9 cm LV Relative Wall Thickness 0.5 RV Internal Dim ED PLAX 2.8 cm LA Systolic Diameter LX 2.9 cm 3.0 - 4.0 / 2.7 - 3.8 cm LV Diastolic Volume MOD BP 107.0 cm??? 67 - 155 / 56 - 104 cm??? LV Systolic Volume MOD BP 55.9 cm??? - 58 / 19 - 49 cm??? LV Ejection Fraction MOD BP 47.8 % >= 55 % LV Cardiac Index MOD BP 1280.6 cm???/min???m??? LV Diastolic Volume MOD 4C 132.8 cm??? LV Systolic Volume MOD 4C 65.8 cm??? LV Ejection Fraction MOD 4C 50.5 % LV Cardiac Index MOD 4C 1680.1 cm???/min???m??? LV Diastolic Length 4C 8.4 cm LV Systolic Length 4C 8.1 cm LV Diastolic Volume MOD 2C 82.7 cm??? LV Systolic Volume MOD 2C 39.4 cm??? LV Ejection Fraction MOD 2C 52.3 % LV Cardiac Index MOD 2C 1084.1 cm???/min???m??? LV Diastolic Length 2C 8.0 cm LV Systolic Length 2C 6.7 cm LA Volume 50.2 cm??? 18 - 58 / 22 - 52 cm??? LA Volume Index 24.2 cm???/m??? 16 - 28 cm???/m??? M-MODE Aortic Root Diameter MM 2.9 cm AV Cusp Separation MM 1.9 cm DOPPLER AV Peak Velocity 151.7 cm/s AV Peak Gradient 9.2 mmHg MV Area PHT 3.9 cm??? Mitral E Point Velocity 67.3 cm/s Mitral A Point Velocity 95.1 cm/s Mitral E to A Ratio 0.7 MV Deceleration Time 192.6 ms TR Peak Velocity 226.7 cm/s TR Peak Gradient 20.6 mmHg Right Ventricular Systolic Press 25.6 mmHg FINDINGS Left Ventricle Left ventricular ejection fraction is estimated at 50%. Left ventricular cavity size normal. Mildly increased septal wall thickness. Mildly increased posterior wall thickness. Mildly increased left ventricular diastolic volume. Mildly increased left ventricular systolic volume. Mildly decreased left ventricular ejection fraction. Apical septum hypokinesis Right Ventricle Normal right ventricular size. Right ventricular systolic pressure within normal limits. Right Atrium Normal right atrial size. No right atrial thrombus or mass seen. Left Atrium Mildly increased left atrial area. No left atrial thrombus or mass present. Mitral Valve Structurally normal mitral valve. No mitral stenosis, regurgitation or prolapse. Aortic Valve Trileaflet aortic valve. No aortic valve stenosis or regurgitation. Tricuspid Valve Structurally normal tricuspid valve. Mild tricuspid regurgitation. Pulmonic Valve Structurally normal pulmonic valve. Trace pulmonic regurgitation. Pericardium Mild to moderate pericardial effusion. Aorta Normal size aortic root and proximal ascending aorta. CONCLUSIONS Normal LV size with preserved systolic function distal apical septal hypokinesia ejection fraction nearly 50%. Small to moderate-sized pericardial effusion. Mild mitral and tricuspid insufficiency. No pulmonary hypertension. Mild to moderate pericardial effusion. Previewed by: Dr. Diane Babcock MD (Electronically Signed) Final Date: 15 Dec 2024 16:52
[2024-12-16] MEDS ORDERED: FUROSEMIDE 40 MG TAB PO SCH (09:00)
== END 2024-12-15 15:18 | disposition home or self-care (01) | DRG 291 ==
LOC: EC 16:45 → 4SSUR 19:53 → 6NMEDSUR 20:24 → OBSVTOIN 12-14 11:08
PROVIDERS: ADMIT Internal Medicine; ATTEND Internal Medicine
DX: I11.0 Hypertensive heart disease with heart failure (principal); G92.8 Other toxic encephalopathy; J96.01 Acute respiratory failure with hypoxia; I50.23 Acute on chronic systolic (congestive) heart failure; E87.1 Hypo-osmolality and hyponatremia; E66.01 Morbid (severe) obesity due to excess calories; E03.9 Hypothyroidism, unspecified; D50.9 Iron deficiency anemia, unspecified; N17.9 Acute kidney failure, unspecified; D68.51 Activated protein C resistance; Z79.4 Long term (current) use of insulin; F41.0 Panic disorder [episodic paroxysmal anxiety]; I25.5 Ischemic cardiomyopathy; G89.29 Other chronic pain; T40.2X5A Adverse effect of other opioids, initial encounter; E78.5 Hyperlipidemia, unspecified; M54.9 Dorsalgia, unspecified; I25.10 Atherosclerotic heart disease of native coronary artery without angina pectoris; Z86.718 Personal history of other venous thrombosis and embolism; Z79.02 Long term (current) use of antithrombotics/antiplatelets; Z79.890 Hormone replacement therapy; Z79.82 Long term (current) use of aspirin; Z88.8 Allergy status to other drugs, medicaments and biological substances; Z88.6 Allergy status to analgesic agent; Z88.1 Allergy status to other antibiotic agents; Z91.041 Radiographic dye allergy status; Z87.891 Personal history of nicotine dependence; Z79.899 Other long term (current) drug therapy; I25.2 Old myocardial infarction; Z90.710 Acquired absence of both cervix and uterus; Z91.81 History of falling
CPT/HCPCS: 36415; 70450; 71045; 80053; 80061; 80306; 80320; 81001; 82009; 82140; 83036; 83605; 83880; 84439; 84443; 84484; 85025; 85610; 85730; 87077; 87086; 87186; 87636; 93005; 93306; 94640; 96360; 96361; 99285

== ENCOUNTER 2024-12-23 12:40 | Emergency (ER) | payer MEDICARE, BC ==
[2024-12-23 12:44] VITALS: RESP 18; TEMP 97.9
--- NOTE | 2024-12-23 13:39 | ED ---
SOB HPI - General Chief Complaint: Shortness of Breath Stated Complaint: SOB Time Seen by Provider: 12/23/24 12:45 Source: patient, RN notes reviewed Mode of arrival: wheelchair Limitations: no limitations - History of Present Illness Initial Comments: 69-year-old female presents emergency department complaint of dyspnea. Patient was discharged in the hospital this morning for acute CHF exacerbation. Patient states that she felt more short of breath at home and was noted to be hypoxic. Patient states she did require oxygen in the hospital but states that she was not initially discharged with any. Patient denies any chest pain no new complaints otherwise. Patient states her pulse ox was in the mid 80s at home. - Related Data Home Medications Medication Instructions Recorded Confirmed Clopidogrel [Plavix] 75 mg PO DAILY 07/07/19 12/17/24 traZODone HCL [Desyrel] 200 mg PO HS 07/07/19 12/17/24 Insulin Glargine,Hum.rec.anlog 30 units SQ HS@1800 06/09/21 12/17/24 [Lantus Solostar Pen] Insulin Lispro [humaLOG Kwikpen] See Protocol SQ ACHS 09/21/23 12/17/24 DULoxetine HCL [Cymbalta] 60 mg PO BID 07/15/24 12/17/24 Acetaminophen Tab [Tylenol] 650 mg PO Q4H PRN 12/13/24 12/17/24 Albuterol Sulfate [Ventolin HFA] 2 puff INHALATION RT-Q6H PRN 12/13/24 12/17/24 Atorvastatin [Lipitor] 80 mg PO DAILY 12/13/24 12/17/24 Cyanocobalamin (Vitamin B-12) 1,000 mcg PO DAILY 12/13/24 12/17/24 [Vitamin B-12] Nitroglycerin Sl Tabs [Nitrostat] 0.4 mg SL Q5M PRN 12/13/24 12/17/24 Ondansetron [Zofran] 4 mg PO DIRECTED PRN 12/13/24 12/17/24 Sennosides-Docusate Sodium 1 tab PO AC-BID 12/13/24 12/17/24 [Senokot-S] methocarbamoL [Robaxin-750] 750 mg PO QID PRN 12/13/24 12/17/24 polyethylene glycoL 3350 [Miralax] 17 gm PO BID PRN 12/13/24 12/17/24 oxyCODONE HCL [oxyCODONE HCL (IR)] 10 mg PO TID 12/17/24 12/17/24 Previous Rx's Medication Instructions Recorded Aspirin 81 mg PO DAILY #30 tab 07/25/24 Spironolactone [Aldactone] 25 mg PO DAILY #30 tab 07/25/24 Losartan [Cozaar] 25 mg PO DAILY #30 tab 07/31/24 Furosemide [Lasix] 40 mg PO DAILY #30 tab 12/15/24 Levothyroxine Sodium 75 mcg PO AC-BRKFST #30 cap 12/15/24 Levothyroxine Sodium 200 mcg PO AC-BRKFST #30 tab 12/15/24 ALPRAZolam [Xanax] 1 mg PO TID #0 12/22/24 Colchicine [Colcrys] 0.6 mg PO BID #60 each 12/22/24 Insulin Lispro [humaLOG Kwikpen] 15 units SQ AC-BRKFST #0 12/22/24 Insulin Lispro [humaLOG Kwikpen] 22 units SQ AC-BID@1200,1800 #0 12/22/24 Mag Hydrox/Al Hydrox/Simeth 30 ml PO Q4HR PRN ml 12/22/24 [Maalox] Metoprolol Tartrate [Lopressor] 12.5 mg PO BID 30 Days #60 tab 12/22/24 Pantoprazole [Protonix] 40 mg PO AC-BRKFST #30 tab 12/22/24 Allergies Allergy/AdvReac Type Severity Reaction Status Date / Time Iodinated Contrast Media Allergy Rash/Hives Verified 12/23/24 12:44 Iodine and Iodide Containing Allergy Rash/Hives Verified 12/23/24 12:44 Produc liraglutide [From Saxenda] AdvReac Unknown Nausea & Verified 12/23/24 12:44 Vomiting NSAIDS (Non-Steroidal AdvReac Unknown Nausea & Verified 12/23/24 12:44 Anti-Inflamma Vomiting aspirin AdvReac Nausea & Verified 12/23/24 12:44 Vomiting with high doses azithromycin AdvReac Vomiting Verified 12/23/24 12:44 naproxen [From Naprosyn] AdvReac Nausea & Verified 12/23/24 12:44 Vomiting Review of Systems ROS Statement: Those systems with pertinent positive or pertinent negative responses have been documented in the HPI. ROS Other: All systems not noted in ROS Statement are negative. Past Medical History Past Medical History: Blood Disorder, Cancer, Diabetes Mellitus, Deep Vein Thrombosis (DVT), GERD/Reflux, Hyperlipidemia, Hypertension, Myocardial Infarction ([place]), Neurologic Disorder, Osteoarthritis (OA), Pneumonia, Pulmonary Embolus (PE), Thyroid Disorder Additional Past Medical History / Comment(s): See Dr Babcock's H&P. Factor 5 Leiden, hx DVT L leg, hx PE L lung, hx [place] X5, palpitations, IDDM type II, neuropathy bilateral legs/feet, lymphedema L leg, charcot syndrome L foot, chronic low back pain, bilateral sciatica, hx bronchitis, anemia, hypothyroid, constipation, hx UTI, IBS, sinus problems, worsening tremors, hx skin cancer removal, hx pelvic fracture, clausterphobia, hx severe vertigo, poor balance and prone to falls. Moderate pericardial effusion Last Myocardial Infarction Date:: January 2020 History of Any Multi-Drug Resistant Organisms: VRE Date of last positivie culture/infection: 08/24/23 MDRO Source:: Urine Past Surgical History: Appendectomy, Cholecystectomy, Heart Catheterization With Stent, Hernia Repair, Hysterectomy, Tonsillectomy Additional Past Surgical History / Comment(s): Bilateral salpingectomy, bilateral oophorectomy, abdominal hernia surgeries, L foot fracture, bilateral cataract removals, lumbar epidural injections. Past Anesthesia/Blood Transfusion Reactions: No Reported Reaction Additional Past Anesthesia/Blood Transfusion Reaction / Comment(s): Pt has received blood in past without reaction. Date of Last Stent Placement:: January 2020 Past Psychological History: Anxiety, Depression, Panic Disorder Smoking Status: Former smoker Past Alcohol Use History: None Reported Past Drug Use History: None Reported - Past Family History Mother Family Medical History: COPD Additional Family Medical History / Comment(s): Mother was a smoker. Father Family Medical History: Cancer Additional Family Medical History / Comment(s): Lung cancer. Father was a smoker. Son(s) Family Medical History: Deep Vein Thrombosis (DVT) General Exam Limitations: no limitations General appearance: alert, in no apparent distress Head exam: Present: atraumatic, normocephalic, normal inspection Eye exam: Present: normal appearance, PERRL, EOMI. Absent: scleral icterus, conjunctival injection, periorbital swelling ENT exam: Present: normal exam, normal oropharynx, mucous membranes moist Neck exam: Present: normal inspection, full ROM. Absent: tenderness, meningismus, lymphadenopathy Respiratory exam: Present: normal lung sounds bilaterally. Absent: respiratory distress, wheezes, rales, rhonchi, stridor Cardiovascular Exam: Present: regular rate, normal rhythm, normal heart sounds. Absent: systolic murmur, diastolic murmur, rubs, gallop, clicks Course Vital Signs 12/23/24 12/23/24 12:41 12:46 Temperature 97.9 F Pulse Rate 85 Respiratory 18 Rate Blood Pressure 95/59 O2 Sat by Pulse 84 L 92 L Oximetry Medical Decision Making - Medical Decision Making Was pt. sent in by a medical professional or institution (RONI Hollis, C[employer]ESS GRINDING MACHINE ADJUSTER, urgent care, hospital, or usp...) When possible be specific @ -No Did you speak to anyone other than the patient for history (EMS, parent, family, police, friend...)? What history was obtained from this source @ -No Did you review nursing and triage notes (agree or disagree)? Why? @ -I reviewed and agree with nursing and triage notes Were old charts reviewed (outside hosp., previous admission, EMS record, old EKG, old radiological studies, urgent care reports/EKG's, usp records)? Report findings @ -Reviewed recent inpatient records, chest x-ray, cardiology evaluation Differential Diagnosis (chest pain, altered mental status, abdominal pain women, abdominal pain men, vaginal bleeding, weakness, fever, dyspnea, syncope, headache, dizziness, GI bleed, back pain, seizure, CVA, palpatations, mental health, musculoskeletal)? @ -Differential Dyspnea: Coronary syndrome, arrhythmia, tamponade, asthma, COPD, pulmonary embolism, pneumonia, pneumothorax, pulmonary effusion, anaphylaxis, diabetic ketoacidosis, flailed chest, pulmonary contusion, diaphragmatic rupture, anemia, neuromuscular, this is not meant to be an all-inclusive list. EKG interpreted by me (3pts min.). @ -None X-rays interpreted by me (1pt min.). @ -None done CT interpreted by me (1pt min.). @ -None done U/S interpreted by me (1pt. min.). @ -None done What testing was considered but not performed or refused? (CT, X-rays, U/S, labs)? Why? @ -None What meds were considered but not given or refused? Why? @ -None Did you discuss the management of the patient with other professionals (professionals i.e. , PA, C[employer]ESS GRINDING MACHINE ADJUSTER, lab, RT, psych nurse, social work program coordinator, ob/gyn physician, teacher, railway patrol officer, supportive employment case manager)? Give summary @ -Discussed the case with case management along with Dr. Vela who recently discharged patient recommending home O2. Was smoking cessation discussed for >3mins.? @ -No Was critical care preformed (if so, how long)? @ -No Were there social determinants of health that impacted care today? How? (Homelessness, low income, unemployed, alcoholism, drug addiction, transportation, low edu. Level, literacy, decrease access to med. care, half-way, rehab)? @ -No Was there de-escalation of care discussed even if they declined (Discuss DNR or withdrawal of care, Hospice)? DNR status @ -No What co-morbidities impacted this encounter? (DM, HTN, Smoking, COPD, CAD, Cancer, CVA, ARF, Chemo, Hep., AIDS, mental health diagnosis, sleep apnea, morbid obesity)? @ -CHF Was patient admitted / discharged? Hospital course, mention meds given and rout e, prescriptions, significant lab abnormalities, going to OR and other pertinent info. @ -Urged patient presented for acute dyspnea, found to be hypoxic. Patient is requiring 2 L of oxygen secondary to CHF. Patient is stable on 2 L of oxygen at 92 to 94%. Patient did have home O2 set up and discharged in stable condition. Undiagnosed new problem with uncertain prognosis? @ -No Drug Therapy requiring intensive monitoring for toxicity (Heparin, Nitro, Insulin, Cardizem)? @ -No Were any procedures done? @ -No Diagnosis/symptom? @ -CHF, dyspnea Acute, or Chronic, or Acute on Chronic? @ -Acute Uncomplicated (without systemic symptoms) or Complicated (systemic symptoms)? @ -Complicated Side effects of treatment? @ -No Exacerbation, Progression, or Severe Exacerbation? @ -No Poses a threat to life or bodily function? How? (Chest pain, [place], [place], pneumonia, PE, COPD, DKA, ARF, appy, cholecystitis, CVA, Diverticulitis, Homicidal, Suicidal, threat to staff... and all critical care pts) @ -No Disposition Clinical Impression: CHF (congestive heart failure), Dependence on supplemental oxygen Disposition: HOME SELF-CARE Condition: Stable Additional Instructions: Please return to the Emergency Department if symptoms worsen or any other concerns. Is patient prescribed a controlled substance at d/c from ED?: No Referrals: Miguel Sy MD [Primary Care Provider] - 1-2 days Time of Disposition: 13:39
[2024-12-23 14:45] VITALS: BP 116/65; PULSE 84
== END 2024-12-23 14:45 | disposition home or self-care (01) ==
LOC: EC 12:40
DX: I50.9 Heart failure, unspecified (principal); Z99.81 Dependence on supplemental oxygen; Z87.891 Personal history of nicotine dependence; Z88.1 Allergy status to other antibiotic agents; Z88.6 Allergy status to analgesic agent; Z91.041 Radiographic dye allergy status; Z88.8 Allergy status to other drugs, medicaments and biological substances
CPT/HCPCS: 99285

== ENCOUNTER 2025-01-03 13:15 | Inpatient (IN) | payer MEDICARE, BC ==
--- NOTE | 2025-01-03 13:34 | ED ---
General Adult HPI - General Chief complaint: Shortness of Breath Stated complaint: MADYSON, Not feeling well Time Seen by Provider: 01/03/25 13:18 Source: patient, family, EMS, RN notes reviewed, old records reviewed Mode of arrival: EMS - History of Present Illness Initial comments: 69-year-old female presenting for evaluation of dyspnea. Patient has had recent hospital admissions with congestive heart failure. She has had increased difficulty breathing and believes she is retaining fluid. She currently wears 3 L of home oxygen. She is on 40 mg Lasix daily. She denies chest pain. Denies fever. Denies cough. - Related Data Home Medications Medication Instructions Recorded Confirmed Clopidogrel [Plavix] 75 mg PO DAILY 07/07/19 12/17/24 traZODone HCL [Desyrel] 200 mg PO HS 07/07/19 12/17/24 Insulin Glargine,Hum.rec.anlog 30 units SQ HS@1800 06/09/21 12/17/24 [Lantus Solostar Pen] Insulin Lispro [humaLOG Kwikpen] See Protocol SQ ACHS 09/21/23 12/17/24 DULoxetine HCL [Cymbalta] 60 mg PO BID 07/15/24 12/17/24 Acetaminophen Tab [Tylenol] 650 mg PO Q4H PRN 12/13/24 12/17/24 Albuterol Sulfate [Ventolin HFA] 2 puff INHALATION RT-Q6H PRN 12/13/24 12/17/24 Atorvastatin [Lipitor] 80 mg PO DAILY 12/13/24 12/17/24 Cyanocobalamin (Vitamin B-12) 1,000 mcg PO DAILY 12/13/24 12/17/24 [Vitamin B-12] Nitroglycerin Sl Tabs [Nitrostat] 0.4 mg SL Q5M PRN 12/13/24 12/17/24 Ondansetron [Zofran] 4 mg PO DIRECTED PRN 12/13/24 12/17/24 Sennosides-Docusate Sodium 1 tab PO AC-BID 12/13/24 12/17/24 [Senokot-S] methocarbamoL [Robaxin-750] 750 mg PO QID PRN 12/13/24 12/17/24 polyethylene glycoL 3350 [Miralax] 17 gm PO BID PRN 12/13/24 12/17/24 oxyCODONE HCL [oxyCODONE HCL (IR)] 10 mg PO TID 12/17/24 12/17/24 Previous Rx's Medication Instructions Recorded Aspirin 81 mg PO DAILY #30 tab 07/25/24 Spironolactone [Aldactone] 25 mg PO DAILY #30 tab 07/25/24 Losartan [Cozaar] 25 mg PO DAILY #30 tab 07/31/24 Furosemide [Lasix] 40 mg PO DAILY #30 tab 12/15/24 Levothyroxine Sodium 75 mcg PO AC-BRKFST #30 cap 12/15/24 Levothyroxine Sodium 200 mcg PO AC-BRKFST #30 tab 12/15/24 ALPRAZolam [Xanax] 1 mg PO TID #0 12/22/24 Colchicine [Colcrys] 0.6 mg PO BID #60 each 12/22/24 Insulin Lispro [humaLOG Kwikpen] 15 units SQ AC-BRKFST #0 12/22/24 Insulin Lispro [humaLOG Kwikpen] 22 units SQ AC-BID@1200,1800 #0 12/22/24 Mag Hydrox/Al Hydrox/Simeth 30 ml PO Q4HR PRN ml 12/22/24 [Maalox] Metoprolol Tartrate [Lopressor] 12.5 mg PO BID 30 Days #60 tab 12/22/24 Pantoprazole [Protonix] 40 mg PO AC-BRKFST #30 tab 12/22/24 Allergies Allergy/AdvReac Type Severity Reaction Status Date / Time Iodinated Contrast Media Allergy Rash/Hives Verified 01/03/25 13:21 Iodine and Iodide Containing Allergy Rash/Hives Verified 01/03/25 13:21 Produc liraglutide [From Saxenda] AdvReac Unknown Nausea & Verified 01/03/25 13:21 Vomiting NSAIDS (Non-Steroidal AdvReac Unknown Nausea & Verified 01/03/25 13:21 Anti-Inflamma Vomiting aspirin AdvReac Nausea & Verified 01/03/25 13:21 Vomiting with high doses azithromycin AdvReac Vomiting Verified 01/03/25 13:21 naproxen [From Naprosyn] AdvReac Nausea & Verified 01/03/25 13:21 Vomiting Review of Systems ROS Statement: Those systems with pertinent positive or pertinent negative responses have been documented in the HPI. ROS Other: All systems not noted in ROS Statement are negative. Past Medical History Past Medical History: Blood Disorder, Cancer, Diabetes Mellitus, Deep Vein Thrombosis (DVT), GERD/Reflux, Hyperlipidemia, Hypertension, Myocardial Infarction (IN), Neurologic Disorder, Osteoarthritis (OA), Pneumonia, Pulmonary Embolus (PE), Thyroid Disorder Additional Past Medical History / Comment(s): See Dr Babcock's H&P. Factor 5 Leiden, hx DVT L leg, hx PE L lung, hx IN X5, palpitations, IDDM type II, neuropathy bilateral legs/feet, lymphedema L leg, charcot syndrome L foot, ch ronic low back pain, bilateral sciatica, hx bronchitis, anemia, hypothyroid, constipation, hx UTI, IBS, sinus problems, worsening tremors, hx skin cancer removal, hx pelvic fracture, clausterphobia, hx severe vertigo, poor balance and prone to falls. Moderate pericardial effusion Last Myocardial Infarction Date:: January 2020 History of Any Multi-Drug Resistant Organisms: VRE Date of last positivie culture/infection: 08/24/23 MDRO Source:: Urine Past Surgical History: Appendectomy, Cholecystectomy, Heart Catheterization With Stent, Hernia Repair, Hysterectomy, Tonsillectomy Additional Past Surgical History / Comment(s): Bilateral salpingectomy, bilateral oophorectomy, abdominal hernia surgeries, L foot fracture, bilateral cataract removals, lumbar epidural injections. Past Anesthesia/Blood Transfusion Reactions: No Reported Reaction Additional Past Anesthesia/Blood Transfusion Reaction / Comment(s): Pt has received blood in past without reaction. Date of Last Stent Placement:: January 2020 Past Psychological History: Anxiety, Depression, Panic Disorder Smoking Status: Former smoker Past Alcohol Use History: None Reported Past Drug Use History: None Reported - Past Family History Mother Family Medical History: COPD Additional Family Medical History / Comment(s): Mother was a smoker. Father Family Medical History: Cancer Additional Family Medical History / Comment(s): Lung cancer. Father was a smoker. Son(s) Family Medical History: Deep Vein Thrombosis (DVT) General Exam General appearance: lethargic Head exam: Present: atraumatic, normocephalic Eye exam: Present: normal appearance, PERRL ENT exam: Present: normal exam Neck exam: Present: normal inspection. Absent: tenderness, meningismus Respiratory exam: Present: decreased breath sounds. Absent: respiratory distress Cardiovascular Exam: Present: regular rate, normal rhythm GI/Abdominal exam: Present: soft. Absent: distended, tenderness Extremities exam: Present: normal inspection, normal capillary refill. Absent: pedal edema Neurological exam: Present: alert, oriented X3, CN II-XII intact. Absent: motor sensory deficit Psychiatric exam: Present: normal affect, normal mood Skin exam: Present: warm, dry, intact, cyanosis, diaphoretic Course Vital Signs 01/03/25 01/03/25 13:17 15:04 Temperature 98.1 F Pulse Rate 77 72 Respiratory 18 18 Rate Blood Pressure 102/52 107/54 O2 Sat by Pulse 100 100 Oximetry Medical Decision Making - Medical Decision Making Was pt. sent in by a medical professional or institution (, PA, PHARMACEUTICAL SCIENTIST, urgent care, hospital, or residential...) When possible be specific @ -No Did you speak to anyone other than the patient for history (EMS, parent, family, police, friend...)? What history was obtained from this source @ -No Did you review nursing and triage notes (agree or disagree)? Why? @ -I reviewed and agree with nursing and triage notes Were old charts reviewed (outside hosp., previous admission, EMS record, old EKG, old radiological studies, urgent care reports/EKG's, residential records)? Report findings @ -No old charts were reviewed Differential Dyspnea: Coronary syndrome, arrhythmia, tamponade, asthma, COPD, pulmonary embolism, p neumonia, pneumothorax, pulmonary effusion, anaphylaxis, diabetic ketoacidosis, flailed chest, pulmonary contusion, diaphragmatic rupture, anemia, neuromuscular, this is not meant to be an all-inclusive list. EKG interpreted by me (3pts min.). @Sinus rhythm low voltage rate of 76, MA interval 189, QRS duration 97, QTc 387. X-rays interpreted by me (1pt min.). @ -[Chest x-ray showing CHF, bilateral pleural effusion CT interpreted by me (1pt min.). @ -None done U/S interpreted by me (1pt. min.). @ -None done What testing was considered but not performed or refused? (CT, X-rays, U/S, labs)? Why? @ -None What meds were considered but not given or refused? Why? @ -None Did you discuss the management of the patient with other professionals (professionals i.e. DrEvans, PA, PHARMACEUTICAL SCIENTIST, lab, RT, psych nurse, social media manager, warehouse stocker, teacher, first officer, disease case manager)? Give summary @ -Dr. Bautista Was smoking cessation discussed for >3mins.? @ -No Was critical care preformed (if so, how long)? @ -No Were there social determinants of health that impacted care today? How? (Homelessness, low income, unemployed, alcoholism, drug addiction, transportation, low edu. Level, literacy, decrease access to med. care, long term, rehab)? @ -No Was there de-escalation of care discussed even if they declined (Discuss DNR or withdrawal of care, Hospice)? DNR status @ -No What co-morbidities impacted this encounter? (DM, HTN, Smoking, COPD, CAD, Cancer, CVA, ARF, Chemo, Hep., AIDS, mental health diagnosis, sleep apnea, morbid obesity)? @Diabetes, CHF, hypertension Was patient admitted / discharged? Hospital course, mention meds given and route, prescriptions, significant lab abnormalities, going to OR and other pertinent info. @ -6-year-old female with increased dyspnea and increased need for oxygen sup plementation history of CHF. Chest x-ray is consistent with CHF. Normal white blood cell count, stable chronic anemia. Patient has elevated BUN consistent with congestive heart failure. She is given Lasix in the emergency department and admitted for IV diuresis. Undiagnosed new problem with uncertain prognosis? @ -No Drug Therapy requiring intensive monitoring for toxicity (Heparin, Nitro, In sulin, Cardizem)? @ -No Were any procedures done? @ -No Diagnosis/symptom? @CHF exacerbation Acute, or Chronic, or Acute on Chronic? @ -[Acute on chronic Uncomplicated (without systemic symptoms) or Complicated (systemic symptoms)? @ -Default Side effects of treatment? @ -No Exacerbation, Progression, or Severe Exacerbation? @ -No Poses a threat to life or bodily function? How? (Chest pain, USA, IN, pneumonia, PE, COPD, DKA, ARF, appy, cholecystitis, CVA, Diverticulitis, Homicidal, Suicidal, threat to staff... and all critical care pts) @ -Yes, hypoxic respiratory failure - Lab Data Result diagrams: 01/03/25 14:09 01/03/25 14:09 Lab Results 01/03/25 01/03/25 01/03/25 Range/Units 14:09 14:09 14:09 WBC 5.52 (4.50-10.00) 10*3/uL RBC 3.71 L (4.10-5.20) 10*6/uL Hgb 8.9 L (12.0-15.0) g/dL Hct 31.4 L (37.2-46.3) % MCV 84.6 (80.0-97.0) fL MCH 24.0 L (27.0-32.0) pg MCHC 28.3 L (32.0-37.0) g/dL Plt Count 213 (140-440) 10*3/uL MPV 12.4 H (9.5-12.2) fL Immature Gran % (Auto) 0.2 % Neutrophils % 73.9 % Lymphocytes % 14.5 % Monocytes % 9.2 % Eosinophils % 1.8 % Basophils % 0.4 % Immature Gran # 0.01 (0.00-0.04) 10*3/uL Neutrophils # 4.08 (1.80-7.70) 10*3/uL Lymphocytes # 0.80 L (0.90-5.00) 10*3/uL Monocytes # 0.51 (0.20-1.00) 10*3/uL Eosinophils # 0.10 (0.04-0.35) 10*3/uL Basophils # 0.02 (0.00-0.10) 10*3/uL VBG pH (7.31-7.41) VBG pCO2 (37-51) mmHg VBG HCO3 (24-28) mmol/L Sodium 137 (137-145) mmol/L Potassium 4.3 (3.5-5.1) mmol/L Chloride 99 (98-107) mmol/L Carbon Dioxide 29 (22-30) mmol/L Anion Gap 9 mmol/L BUN 46 H (7-17) mg/dL Creatinine 1.59 H (0.52-1.04) mg/dL Est GFR (CKD-EPI)AfAm 38 (>60 ml/min/1.73 sqM) Est GFR (CKD-EPI)NonAf 33 (>60 ml/min/1.73 sqM) Glucose 211 H (74-99) mg/dL Plasma Lactic Acid Lloyd 1.1 (0.7-2.0) mmol/L Calcium 8.2 L (8.4-10.2) mg/dL Magnesium 2.4 H (1.6-2.3) mg/dL Total Bilirubin 0.7 (0.2-1.3) mg/dL AST 22 (14-36) U/L ALT 10 (4-34) U/L Alkaline Phosphatase 218 H (38-126) U/L Troponin I (0.000-0.034) ng/mL NT-Pro-B Natriuret Pep 3830 pg/mL Total Protein 7.0 (6.3-8.2) g/dL Albumin 3.0 L (3.5-5.0) g/dL 01/03/25 01/03/25 Range/Units 14:09 14:09 WBC (4.50-10.00) 10*3/uL RBC (4.10-5.20) 10*6/uL Hgb (12.0-15.0) g/dL Hct (37.2-46.3) % MCV (80.0-97.0) fL MCH (27.0-32.0) pg MCHC (32.0-37.0) g/dL Plt Count (140-440) 10*3/uL MPV (9.5-12.2) fL Immature Gran % (Auto) % Neutrophils % % Lymphocytes % % Monocytes % % Eosinophils % % Basophils % % Immature Gran # (0.00-0.04) 10*3/uL Neutrophils # (1.80-7.70) 10*3/uL Lymphocytes # (0.90-5.00) 10*3/uL Monocytes # (0.20-1.00) 10*3/uL Eosinophils # (0.04-0.35) 10*3/uL Basophils # (0.00-0.10) 10*3/uL VBG pH 7.30 L (7.31-7.41) VBG pCO2 63 H (37-51) mmHg VBG HCO3 31 H (24-28) mmol/L Sodium (137-145) mmol/L Potassium (3.5-5.1) mmol/L Chloride (98-107) mmol/L Carbon Dioxide (22-30) mmol/L Anion Gap mmol/L BUN (7-17) mg/dL Creatinine (0.52-1.04) mg/dL Est GFR (CKD-EPI)AfAm (>60 ml/min/1.73 sqM) Est GFR (CKD-EPI)NonAf (>60 ml/min/1.73 sqM) Glucose (74-99) mg/dL Plasma Lactic Acid Lloyd (0.7-2.0) mmol/L Calcium (8.4-10.2) mg/dL Magnesium (1.6-2.3) mg/dL Total Bilirubin (0.2-1.3) mg/dL AST (14-36) U/L ALT (4-34) U/L Alkaline Phosphatase (38-126) U/L Troponin I 0.029 (0.000-0.034) ng/mL NT-Pro-B Natriuret Pep pg/mL Total Protein (6.3-8.2) g/dL Albumin (3.5-5.0) g/dL Disposition Clinical Impression: CHF (congestive heart failure) Disposition: ADMITTED IP TO THIS HOSP Condition: Stable Is patient prescribed a controlled substance at d/c from ED?: No Referrals: Miguel Sy MD [Primary Care Provider] - 1-2 days Time of Disposition: 15:24
--- NOTE | 2025-01-03 13:58 | XR ---
EXAMINATION TYPE: XR chest 1V portable DATE OF EXAM: 01/03/2025 1:48 PM COMPARISON: Multiple radiographs, with the most recent on 12/22/2024 TECHNIQUE: XR chest 1V portable Portable AP radiograph of the chest. CLINICAL INDICATION:Female, 69 years old with history of leti; FINDINGS: Lungs/Pleura: Blunting of both costophrenic angles with associated atelectasis. No pneumothorax. Pulmonary vascularity: Pulmonary vascular congestion. Heart/mediastinum: Cardiomediastinal silhouette is enlarged and stable. Musculoskeletal: No acute osseous pathology. IMPRESSION: Cardiomegaly, pulmonary vascular congestion and small bilateral pleural effusions. Correlate with BNP for congestive heart failure. [facility], , 01/03/2025 1:55 PM
[2025-01-03 14:17] LABS: VBG PH 7.3 (7.31-7.41)
[2025-01-03 14:18] LABS: Basophils # (A) 0.02 10*3/uL (0.00-0.10); Basophils % (A) 0.4 %; Eosinophils % (A) 1.8 %; HCT 31.4 % (37.2-46.3); HGB 8.9 g/dL (12.0-15.0); Lymphocytes % (A) 14.5 %; MCHC 28.3 g/dL (32.0-37.0); MCV 84.6 fL (80.0-97.0); Mean Platelet Volume 12.4 fL (9.5-12.2); Monocytes # (A) 0.51 10*3/uL (0.20-1.00); Monocytes % (A) 9.2 %; Neutrophils # (A) 4.08 10*3/uL (1.80-7.70); Neutrophils % (A) 73.9 %; Platelet Count 213 10*3/uL (140-440); RBC 3.71 10*6/uL (4.10-5.20); RDW 19.5 % (11.5-14.5); WBC 5.52 10*3/uL (4.50-10.00)
[2025-01-03 14:34] LABS: ALT 10 U/L (4-34); AST 22 U/L (14-36); African American GFR (CKD) 38 (>60 ml/min/1.73 sqM); Alkaline Phosphatase 218 U/L (38-126); Anion Gap 9 mmol/L; Blood Urea Nitrogen 46 mg/dL (7-17); Calcium 8.2 mg/dL (8.4-10.2); Carbon Dioxide 29 mmol/L (22-30); Chloride 99 mmol/L (98-107); Glucose 211 mg/dL (74-99); Magnesium 2.4 mg/dL (1.6-2.3); Non-African American GFR(CKD) 33 (>60 ml/min/1.73 sqM); Potassium 4.3 mmol/L (3.5-5.1); Sodium 137 mmol/L (137-145); Total Bilirubin 0.7 mg/dL (0.2-1.3)
[2025-01-03 14:41] LABS: NT-Pro-B-Type Natriuretic Pept 3830 pg/mL
[2025-01-03] MEDS: FUROSEMIDE 10 MG/ML 4 ML VIAL IV STA (14:59)
[2025-01-03 15:02] LABS: Prothrombin Time 10.9 sec (10.0-12.5)
[2025-01-03] MEDS ORDERED: NALOXONE 0.4 MG/ML 1 ML VIAL IV PRN (15:20)
[2025-01-03 15:23] LABS: Partial Thromboplastin Time 20.7 sec (22.0-30.0)
[2025-01-03] MEDS ORDERED: traZODone HCL 100 MG TAB PO PRN (21:47)
[2025-01-03] MEDS ORDERED: ALBUTEROL NEBULIZED 2.5 MG/3 ML INHALATION PRN (21:47)
[2025-01-03] MEDS ORDERED: NITROGLYCERIN SL TABS 0.4 MG TAB SUBLINGUAL PRN (21:47)
[2025-01-03] MEDS ORDERED: polyethylene glycoL 3350 17 GM POWD.PACK PO PRN (21:47)
[2025-01-03] MEDS ORDERED: DEXTROSE 50% SYRINGE 50 ML IVP PRN ×2 (21:52)
[2025-01-03] MEDS: FUROSEMIDE 10 MG/ML 4 ML VIAL IV SCH (21:53)
[2025-01-03 22:04] LABS: Glucose,Whole Blood 257 mg/dL (70-110)
[2025-01-03] MEDS: INSULIN GLARGINE (LANTUS) 100 UNIT/ML SYR SQ SCH (22:14)
[2025-01-03] MEDS: ONDANSETRON ODT 4 MG TAB PO PRN (22:17)
[2025-01-03] MEDS: ALPRAZolam 1 MG TAB PO STA (22:50)
[2025-01-04 05:26] LABS: Glucose,Whole Blood 232 mg/dL (70-110)
[2025-01-04] MEDS: PANTOPRAZOLE 40 MG TABLET PO SCH (06:26)
[2025-01-04] MEDS: SENNOSIDES-DOCUSATE SODIUM 1 EACH TAB PO SCH (06:27)
[2025-01-04] MEDS: INSULIN LISPRO (HumaLOG) 100 UNIT/ML 10 mL VL SQ SCH (06:27)
[2025-01-04] MEDS: LEVOTHYROXINE 75 MCG TAB PO SCH (06:27)
[2025-01-04] MEDS: LEVOTHYROXINE 100 MCG TAB PO SCH (06:27)
[2025-01-04] MEDS: ASPIRIN 81 MG PO SCH (09:08)
[2025-01-04] MEDS: METOPROLOL TARTRATE 12.5 MG TAB PO SCH (09:08)
[2025-01-04] MEDS: CLOPIDOGREL 75 MG TAB PO SCH (09:08)
[2025-01-04] MEDS: ATORVASTATIN 80 MG TAB PO SCH (09:08)
[2025-01-04] MEDS: DULoxetine HCL 60 MG CAPSULE.DR PO SCH (09:08)
[2025-01-04 12:24] LABS: Glucose,Whole Blood 255 mg/dL (70-110)
--- NOTE | 2025-01-04 12:55 | P.CRDCN ---
History of Present Illness Consult date: 01/04/25 Consult reason: congestive heart failure History of present illness: This is 69-year-old female patient of Dr. JOSH Babcock with past medical history of coronary artery disease status post multivessel PCI, hypertension, hyperlipidemia, diabetes mellitus type 2, remote history of tobacco use and dependence, poor functional capacity, history of GI bleed requiring rectal tamponade, chronic hypoxic respiratory failure on home O2 at 3 L. We have been asked to evaluate the patient for CHF. Patient has had several recent hospitalization most recently December 17 through December 23. During that hospitalization, patient was seen by cardiology due to a moderate-sized pericardial effusion without tamponade. Patient states that she has not been feeling well since she went home. She feels very tired and fatigued but that has been going on for at least the last few months. She denies any fever or chills. She states she has a little bit of lightheadedness or dizziness. Patient states that she has been taking all of her medications as directed including colchicine. She states her organizes her medications. She does complain of increased lower extremity edema and lymphedema. She does not feel that she has been eating and drinking very much because she has been nauseated. She did have some diarrhea that went away. Blood pressure 97/52, pulse ox 98% on 3 L nasal cannula, heart rate in the 70s. Patient is afebrile. -EKG: Sinus rhythm, low voltage. -Chest x-ray: Cardiomegaly, pulmonary vascular congestion and small bilateral pleural effusions. -Laboratory studies: WBC 5.5, hemoglobin 8.9. Electrolytes are normal. BUN 46 and creatinine 1.59. Troponin negative x 1. proBNP 3830. -Home cardiac medications: Aspirin 81 mg daily, atorvastatin 80 mg daily, Plavix 75 mg daily, colchicine 0.6 mg twice daily, Lasix 40 mg daily, losartan 25 mg daily, Lopressor 12.5 mg twice daily, Nitrostat as needed, spironolactone 25 mg daily. -Limited echocardiogram performed 12/22/2024 revealed normal LV size and function. Mild to moderate pericardial effusion without tamponade physiology. -Cardiac catheterization history 10/29/2024: LAD stented in July was widely patent. Circumflex with previous mid stent jailed OM with good flow. RCA with mid lesion and diffuse disease with heavy calcifications. PCI of the RCA with 3 stents. Review Of Systems: At the time of my exam: CONSTITUTIONAL: Denies fever or chills. Reports fatigue HEENT: Denies blurred vision, vision changes, or eye pain. Denies hemoptysis CARDIOVASCULAR: Denies chest pain. Denies orthopnea. Denies PND. Denies palpitations RESPIRATORY: Denies shortness of breath. GASTROINTESTINAL: Denies abdominal pain. Reports nausea. HEMATOLOGIC: Denies bleeding disorders. GENITOURINARY: Denies any blood in urine. SKIN: Denies puritis. Denies rash. Physical examination: Gen: This is 69-year-old obese female in no acute distress. Patient appears to be quite fatigued. VS: reviewed HEENT: Head is atraumatic, normocephalic. Pupils equal, round. Sclerae is anicteric. NECK: Supple. No JVD. LUNGS: Clear to auscultation. No wheezes or rhonchi. No intercostal retrac tions. HEART: Regular rate and rhythm. No murmur. ABDOMEN: Soft No tenderness. EXTREMITIES: No pedal edema. No calf tenderness. NEUROLOGICAL: Patient is awake, alert and oriented x3. Assessment: Acute kidney injury Nausea and decreased appetite Pericardial effusion Coronary artery disease with previous PCI, most recently 2 mid proximal and ostial RCA with 3 stents, October 2024 Ischemic cardiomyopathy, 45% Hypertension Hyperlipidemia Diabetes Pleural effusion status post left thoracentesis 12/21 Chronic hypoxic respiratory failure on home O2 at 3 L Plan: Resume patient's home cardiac medications with the following changes Hold Lopressor and losartan due to hypotension Obtain limited echocardiogram and Doppler study to evaluate pericardial effusion May consider left heart catheterization if patient's symptoms are not improving Further recommendations to follow based upon clinical course Thank you kindly for this consultation. Nurse practitioner note has been reviewed, I agree with documented findings and plan of care. Patient was seen and examined. Past Medical History Past Medical History: Blood Disorder, Cancer, Diabetes Mellitus, Deep Vein Thrombosis (DVT), GERD/Reflux, Hyperlipidemia, Hypertension, Myocardial Infarction (VA), Neurologic Disorder, Osteoarthritis (OA), Pneumonia, Pulmonary Embolus (PE), Thyroid Disorder Additional Past Medical History / Comment(s): See Dr Babcock's H&P. Factor 5 Leiden, hx DVT L leg, hx PE L lung, hx VA X5, palpitations, IDDM type II, neuropathy bilateral legs/feet, lymphedema L leg, charcot syndrome L foot, chronic low back pain, bilateral sciatica, hx bronchitis, anemia, hypothyroid, constipation, hx UTI, IBS, sinus problems, worsening tremors, hx skin cancer removal, hx pelvic fracture, clausterphobia, hx severe vertigo, poor balance and prone to falls. Moderate pericardial effusion Last Myocardial Infarction Date:: January 2020 History of Any Multi-Drug Resistant Organisms: VRE Date of last positivie culture/infection: 08/24/23 MDRO Source:: Urine Past Surgical History: Appendectomy, Cholecystectomy, Heart Catheterization With Stent, Hernia Repair, Hysterectomy, Tonsillectomy Additional Past Surgical History / Comment(s): Bilateral salpingectomy, bilateral oophorectomy, abdominal hernia surgeries, L foot fracture, bilateral cataract removals, lumbar epidural injections. Past Anesthesia/Blood Transfusion Reactions: No Reported Reaction Additional Past Anesthesia/Blood Transfusion Reaction / Comment(s): Pt has received blood in past without reaction. Date of Last Stent Placement:: January 2020 Past Psychological History: Anxiety, Depression, Panic Disorder Additional Psychological History / Comment(s): Severe panic attacks. Clausterphobia. Smoking Status: Former smoker Past Alcohol Use History: None Reported Additional Past Alcohol Use History / Comment(s): STARTED SMOKING AT AGE 20, quit smoking in 2012, smoked 1ppd. Past Drug Use History: None Reported - Past Family History Mother Family Medical History: COPD Additional Family Medical History / Comment(s): Mother was a smoker. Father Family Medical History: Cancer Additional Family Medical History / Comment(s): Lung cancer. Father was a smoker. Son(s) Family Medical History: Deep Vein Thrombosis (DVT) Medications and Allergies Home Medications Medication Instructions Recorded Confirmed Type Clopidogrel [Plavix] 75 mg PO DAILY 07/07/19 01/03/25 History traZODone HCL [Desyrel] 200 mg PO HS 07/07/19 01/03/25 History Insulin Glargine,Hum.rec.anlog 30 units SQ HS@1800 06/09/21 01/03/25 History [Lantus Solostar Pen] Insulin Lispro [humaLOG Kwikpen] See Protocol SQ ACHS 09/21/23 01/03/25 History DULoxetine HCL [Cymbalta] 60 mg PO BID 07/15/24 01/03/25 History Aspirin 81 mg PO DAILY #30 tab 07/25/24 01/03/25 Rx Spironolactone [Aldactone] 25 mg PO DAILY #30 tab 07/25/24 01/03/25 Rx Losartan [Cozaar] 25 mg PO DAILY #30 tab 07/31/24 01/03/25 Rx Acetaminophen Tab [Tylenol] 650 mg PO Q4H PRN 12/13/24 01/03/25 History Albuterol Sulfate [Ventolin HFA] 2 puff INHALATION RT-Q6H PRN 12/13/24 01/03/25 History Atorvastatin [Lipitor] 80 mg PO DAILY 12/13/24 01/03/25 History Cyanocobalamin (Vitamin B-12) 1,000 mcg PO DAILY 12/13/24 01/03/25 History [Vitamin B-12] Nitroglycerin Sl Tabs [Nitrostat] 0.4 mg SL Q5M PRN 12/13/24 01/03/25 History Ondansetron [Zofran] 4 mg PO DIRECTED PRN 12/13/24 01/03/25 History Sennosides-Docusate Sodium 1 tab PO AC-BID 12/13/24 01/03/25 History [Senokot-S] methocarbamoL [Robaxin-750] 750 mg PO QID PRN 12/13/24 01/03/25 History polyethylene glycoL 3350 [Miralax] 17 gm PO BID PRN 12/13/24 01/03/25 History Furosemide [Lasix] 40 mg PO DAILY #30 tab 12/15/24 01/03/25 Rx Levothyroxine Sodium 75 mcg PO AC-BRKFST #30 cap 12/15/24 01/03/25 Rx Levothyroxine Sodium 200 mcg PO AC-BRKFST #30 tab 12/15/24 01/03/25 Rx oxyCODONE HCL [oxyCODONE HCL (IR)] 10 mg PO TID 12/17/24 01/03/25 History Colchicine [Colcrys] 0.6 mg PO BID #60 each 12/22/24 01/03/25 Rx Insulin Lispro [humaLOG Kwikpen] 15 units SQ AC-BRKFST #0 12/22/24 01/03/25 Rx Insulin Lispro [humaLOG Kwikpen] 22 units SQ AC-BID@1200,1800 #0 12/22/24 01/03/25 Rx Mag Hydrox/Al Hydrox/Simeth 30 ml PO Q4HR PRN ml 12/22/24 01/03/25 Rx [Maalox] Pantoprazole [Protonix] 40 mg PO AC-BRKFST #30 tab 12/22/24 01/03/25 Rx ALPRAZolam [Xanax] 2 mg PO TID 01/03/25 01/03/25 History Metoprolol Tartrate [Lopressor] 12.5 mg PO BID 01/03/25 01/03/25 History Allergies Allergy/AdvReac Type Severity Reaction Status Date / Time Iodinated Contrast Media Allergy Rash/Hives Verified 01/03/25 17:18 Iodine and Iodide Containing Allergy Rash/Hives Verified 01/03/25 17:18 Produc liraglutide [From Saxenda] AdvReac Unknown Nausea & Verified 01/03/25 17:18 Vomiting NSAIDS (Non-Steroidal AdvReac Unknown Nausea & Verified 01/03/25 17:18 Anti-Inflamma Vomiting aspirin AdvReac Nausea & Verified 01/03/25 17:18 Vomiting with high doses azithromycin AdvReac Vomiting Verified 01/03/25 17:18 naproxen [From Naprosyn] AdvReac Nausea & Verified 01/03/25 17:18 Vomiting Physical Exam Vitals: Vital Signs Temp Pulse Pulse Resp BP BP BP 01/04/25 07:00 97.9 F 74 18 97/52 01/04/25 05:33 114/72 01/04/25 01:53 97.3 F L 73 17 95/62 01/03/25 21:30 116/72 01/03/25 20:51 98.1 F 72 18 92/50 01/03/25 19:59 73 18 100/52 01/03/25 18:28 72 18 101/58 01/03/25 15:04 72 18 107/54 01/03/25 13:17 98.1 F 77 18 102/52 Pulse Ox 01/04/25 07:00 98 01/04/25 05:33 96 01/04/25 01:53 93 L 01/03/25 21:30 01/03/25 20:51 94 L 01/03/25 19:59 99 01/03/25 18:28 99 01/03/25 15:04 100 01/03/25 13:17 100 Intake and Output 01/03/25 01/04/25 01/04/25 22:59 06:59 14:59 Output Total 400 Balance -400 Output: Urine 400 Other: Voiding Method Diaper Diaper External Catheter External Catheter # Voids 1 0 Weight 82.5 kg Results 01/03/25 14:09 01/03/25 14:09 Cardiac Enzymes 01/03/25 01/03/25 Range/Units 14:09 14:09 AST 22 (14-36) U/L Troponin I 0.029 (0.000-0.034) ng/mL Coagulation 01/03/25 Range/Units 14:09 PT 10.9 (10.0-12.5) sec APTT 20.7 L (22.0-30.0) sec CBC 01/03/25 Range/Units 14:09 WBC 5.52 (4.50-10.00) 10*3/uL RBC 3.71 L (4.10-5.20) 10*6/uL Hgb 8.9 L (12.0-15.0) g/dL Hct 31.4 L (37.2-46.3) % Plt Count 213 (140-440) 10*3/uL Comprehensive Metabolic Panel 01/03/25 Range/Units 14:09 Sodium 137 (137-145) mmol/L Potassium 4.3 (3.5-5.1) mmol/L Chloride 99 (98-107) mmol/L Carbon Dioxide 29 (22-30) mmol/L BUN 46 H (7-17) mg/dL Creatinine 1.59 H (0.52-1.04) mg/dL Glucose 211 H (74-99) mg/dL Calcium 8.2 L (8.4-10.2) mg/dL AST 22 (14-36) U/L ALT 10 (4-34) U/L Alkaline Phosphatase 218 H (38-126) U/L Total Protein 7.0 (6.3-8.2) g/dL Albumin 3.0 L (3.5-5.0) g/dL Current Medications Generic Name Dose Route Start Last Admin Trade Name Freq PRN Reason Stop Dose Admin Acetaminophen 650 mg 01/03/25 21:47 Acetaminophen Tab 325 Mg Tab PO Q4H PRN Pain Albuterol Sulfate 2.5 mg 01/03/25 21:47 Albuterol Nebulized 2.5 Mg/3 Ml INHALATION RT-Q6H PRN Shortness Of Breath Aspirin 81 mg 01/04/25 09:00 01/04/25 09:08 Aspirin 81 Mg PO 81 mg DAILY FLO Administration Atorvastatin Calcium 80 mg 01/04/25 09:00 01/04/25 09:08 Atorvastatin 80 Mg Tab PO 80 mg DAILY FLO Administration Clopidogrel Bisulfate 75 mg 01/04/25 09:00 01/04/25 09:08 Clopidogrel 75 Mg Tab PO 75 mg DAILY FLO Administration Dextrose/Water 25 ml 01/03/25 21:52 Dextrose 50% Syringe 50 Ml IVP PER PROTOCOL PRN Hypoglycemia Protocol Dextrose/Water 50 ml 01/03/25 21:52 Dextrose 50% Syringe 50 Ml IVP PER PROTOCOL PRN Hypoglycemia Protocol Duloxetine HCl 60 mg 01/04/25 09:00 01/04/25 09:08 Duloxetine Hcl 60 Mg Capsule.Dr PO 60 mg BID FLO Administration Furosemide 40 mg 01/03/25 21:00 01/04/25 09:08 Furosemide 10 Mg/Ml 4 Ml Vial IV 40 mg Q12HR FLO Administration Insulin Glargine 30 unit 01/03/25 22:00 01/03/25 22:14 Insulin Glargine (Lantus) 100 Unit/Ml Syr SQ 30 unit HS FLO Administration Insulin Human Lispro 0 unit 01/04/25 07:30 01/04/25 06:27 Insulin Lispro (Humalog) 100 Unit/Ml 10 Ml Vl SQ 2 unit ACHS FLO Administration Protocol Levothyroxine Sodium 200 mcg 01/04/25 06:00 01/04/25 06:27 Levothyroxine 100 Mcg Tab PO 200 mcg DAILY@0600 FLO Administration Levothyroxine Sodium 75 mcg 01/04/25 06:00 01/04/25 06:27 Levothyroxine 75 Mcg Tab PO 75 mcg DAILY@0600 FLO Administration Metoprolol Tartrate 12.5 mg 01/04/25 09:00 01/04/25 09:08 Metoprolol Tartrate 12.5 Mg Tab PO 12.5 mg BID FLO Administration Naloxone HCl 0.2 mg 01/03/25 15:20 Naloxone 0.4 Mg/Ml 1 Ml Vial IV Q2M PRN Opioid Reversal Nitroglycerin 0.4 mg 01/03/25 21:47 Nitroglycerin Sl Tabs 0.4 Mg Tab SUBLINGUAL Q5M PRN Chest Pain Ondansetron HCl 4 mg 01/03/25 21:47 01/03/25 22:17 Ondansetron Odt 4 Mg Tab PO 4 mg Q8H PRN Administration Nausea Pantoprazole Sodium 40 mg 01/04/25 07:30 01/04/25 06:26 Pantoprazole 40 Mg Tablet PO 40 mg AC-BRKFST FLO Administration Polyethylene Glycol 17 gm 01/03/25 21:47 Polyethylene Glycol 3350 17 Gm Powd.Pack PO BID PRN Constipation Senna/Docusate Sodium 1 each 01/04/25 07:30 01/04/25 06:27 Sennosides-Docusate Sodium 1 Each Tab PO 1 each AC-BID FLO Administration Trazodone HCl 200 mg 01/03/25 21:47 Trazodone Hcl 100 Mg Tab PO HS PRN Insomnia Intake and Output 01/03/25 01/04/25 01/04/25 22:59 06:59 14:59 Output Total 400 Balance -400 Output: Urine 400 Other: Voiding Method Diaper Diaper External Catheter External Catheter # Voids 1 0 Weight 82.5 kg 01/03/25 14:09 01/03/25 14:09
[2025-01-04] MEDS ORDERED: ZINC OXIDE PASTE (Z-GUARD) 1 APPLIC TOPICAL PRN (16:19)
[2025-01-04 17:12] LABS: Glucose,Whole Blood 341 mg/dL (70-110)
[2025-01-04 20:13] LABS: Glucose,Whole Blood 324 mg/dL (70-110)
[2025-01-04] MEDS: CALCIUM CARBONATE 500 MG CHEWABLE PO PRN (22:48)
[2025-01-04] MEDS: PANTOPRAZOLE 40 MG/10 ML VIAL IVP SCH (22:48)
[2025-01-04] MEDS: ALPRAZolam 1 MG TAB PO PRN (22:48)
[2025-01-05 05:40] LABS: Glucose,Whole Blood 145 mg/dL (70-110)
[2025-01-05 08:17] LABS: BUN/Creat Ratio 26.33 Ratio (12.00-20.00); Blood Urea Nitrogen 31.6 mg/dL (9.0-27.0); Calcium 8.4 mg/dL (8.7-10.3); Carbon Dioxide 32.8 mmol/L (21.6-31.8); Chloride 96 mmol/L (96-109); Glucose 135 mg/dL (70-110); Sodium 141 mmol/L (135-145)
--- NOTE | 2025-01-05 09:25 | P.HPIM ---
History of Present Illness This is a pleasant 69 years old female with past medical history of multiple medical problems including recent hospitalization for GI bleed where she was transferred to [facility] requiring 5 units of blood transfusion. In formation were obtained with the help of the daughter at bedside. Patient was not feeling well for 2 weeks and then recently noticed increased oxygen requirements from 3 up to 4 L/min by her family. She is also felt very weak She is short of breath and lethargic for about 1 month. Has chest pain that coming on with cough and she has a lot of phlegm No specific GI or urinary symptoms. No headache dizziness weakness or numbness No nausea vomiting with the eating. She feels constipated last bowel movement was on Also she has urinary urgency Vitals stable no fever WBC normal. Hemoglobin 8.9. INR within the reference range. Venous pH slightly low at 7.3 and pCO2 63. Creatinine 1.5. Glucose slightly elevated. Liver enzymes are normal. Troponin is negative. proBNP is elevated 3830. Chest x-ray showing cardiomegaly bilateral vascular congestion EKG shows sinus rhythm at 76. Patient is started on IV Lasix and continued on aspirin and Plavix Review of Systems CONSTITUTIONAL: No fever, no malaise, no fatigue. HEENT: No recent visual problems or hearing problems. Denied any sore throat. CARDIOVASCULAR: No orthopnea, PND, no palpitations, no syncope. PULMONARY: No s chest wall tenderness no hemoptysis. GASTROINTESTINAL: No diarrhea, no nausea, no vomiting, no abdominal pain. Normoactive bowel sounds. NEUROLOGICAL: No headaches, no weakness, no numbness. HEMATOLOGICAL: Denies any bleeding or petechiae. GENITOURINARY: Denies any burning micturition, frequency, or urgency. MUSCULOSKELETAL/RHEUMATOLOGICAL: Denies any joint pain, swelling, or any muscle pain. ENDOCRINE: Denies any polyuria or polydipsia. Past Medical History Past Medical History: Blood Disorder, Cancer, Diabetes Mellitus, Deep Vein Thrombosis (DVT), GERD/Reflux, Hyperlipidemia, Hypertension, Myocardial Infarction (VA), Neurologic Disorder, Osteoarthritis (OA), Pneumonia, Pulmonary Embolus (PE), Thyroid Disorder Additional Past Medical History / Comment(s): See Dr Babcock's H&P. Factor 5 Leiden, hx DVT L leg, hx PE L lung, hx VA X5, palpitations, IDDM type II, neuropathy bilateral legs/feet, lymphedema L leg, charcot syndrome L foot, chronic low back pain, bilateral sciatica, hx bronchitis, anemia, hypothyroid, constipation, hx UTI, IBS, sinus problems, worsening tremors, hx skin cancer removal, hx pelvic fracture, clausterphobia, hx severe vertigo, poor balance and prone to falls. Moderate pericardial effusion Last Myocardial Infarction Date:: January 2020 History of Any Multi-Drug Resistant Organisms: VRE Date of last positivie culture/infection: 08/24/23 MDRO Source:: Urine Past Surgical History: Appendectomy, Cholecystectomy, Heart Catheterization With Stent, Hernia Repair, Hysterectomy, Tonsillectomy Additional Past Surgical History / Comment(s): Bilateral salpingectomy, bilateral oophorectomy, abdominal hernia surgeries, L foot fracture, bilateral cataract removals, lumbar epidural injections. Past Anesthesia/Blood Transfusion Reactions: No Reported Reaction Additional Past Anesthesia/Blood Transfusion Reaction / Comment(s): Pt has received blood in past without reaction. Date of Last Stent Placement:: January 2020 Past Psychological History: Anxiety, Depression, Panic Disorder Additional Psychological History / Comment(s): Severe panic attacks. Clausterphobia. Smoking Status: Former smoker Past Alcohol Use History: None Reported Additional Past Alcohol Use History / Comment(s): STARTED SMOKING AT AGE 20, quit smoking in 2012, smoked 1ppd. Past Drug Use History: None Reported - Past Family History Mother Family Medical History: COPD Additional Family Medical History / Comment(s): Mother was a smoker. Father Family Medical History: Cancer Additional Family Medical History / Comment(s): Lung cancer. Father was a smoker. Son(s) Family Medical History: Deep Vein Thrombosis (DVT) Medications and Allergies Home Medications Medication Instructions Recorded Confirmed Type Clopidogrel [Plavix] 75 mg PO DAILY 07/07/19 01/03/25 History traZODone HCL [Desyrel] 200 mg PO HS 07/07/19 01/03/25 History Insulin Glargine,Hum.rec.anlog 30 units SQ HS@1800 06/09/21 01/03/25 History [Lantus Solostar Pen] Insulin Lispro [humaLOG Kwikpen] See Protocol SQ ACHS 09/21/23 01/03/25 History DULoxetine HCL [Cymbalta] 60 mg PO BID 07/15/24 01/03/25 History Aspirin 81 mg PO DAILY #30 tab 07/25/24 01/03/25 Rx Spironolactone [Aldactone] 25 mg PO DAILY #30 tab 07/25/24 01/03/25 Rx Losartan [Cozaar] 25 mg PO DAILY #30 tab 07/31/24 01/03/25 Rx Acetaminophen Tab [Tylenol] 650 mg PO Q4H PRN 12/13/24 01/03/25 History Albuterol Sulfate [Ventolin HFA] 2 puff INHALATION RT-Q6H PRN 12/13/24 01/03/25 History Atorvastatin [Lipitor] 80 mg PO DAILY 12/13/24 01/03/25 History Cyanocobalamin (Vitamin B-12) 1,000 mcg PO DAILY 12/13/24 01/03/25 History [Vitamin B-12] Nitroglycerin Sl Tabs [Nitrostat] 0.4 mg SL Q5M PRN 12/13/24 01/03/25 History Ondansetron [Zofran] 4 mg PO DIRECTED PRN 12/13/24 01/03/25 History Sennosides-Docusate Sodium 1 tab PO AC-BID 12/13/24 01/03/25 History [Senokot-S] methocarbamoL [Robaxin-750] 750 mg PO QID PRN 12/13/24 01/03/25 History polyethylene glycoL 3350 [Miralax] 17 gm PO BID PRN 12/13/24 01/03/25 History Furosemide [Lasix] 40 mg PO DAILY #30 tab 12/15/24 01/03/25 Rx Levothyroxine Sodium 75 mcg PO AC-BRKFST #30 cap 12/15/24 01/03/25 Rx Levothyroxine Sodium 200 mcg PO AC-BRKFST #30 tab 12/15/24 01/03/25 Rx oxyCODONE HCL [oxyCODONE HCL (IR)] 10 mg PO TID 12/17/24 01/03/25 History Colchicine [Colcrys] 0.6 mg PO BID #60 each 12/22/24 01/03/25 Rx Insulin Lispro [humaLOG Kwikpen] 15 units SQ AC-BRKFST #0 12/22/24 01/03/25 Rx Insulin Lispro [humaLOG Kwikpen] 22 units SQ AC-BID@1200,1800 #0 12/22/24 01/03/25 Rx Mag Hydrox/Al Hydrox/Simeth 30 ml PO Q4HR PRN ml 12/22/24 01/03/25 Rx [Maalox] Pantoprazole [Protonix] 40 mg PO AC-BRKFST #30 tab 12/22/24 01/03/25 Rx ALPRAZolam [Xanax] 2 mg PO TID 01/03/25 01/03/25 History Metoprolol Tartrate [Lopressor] 12.5 mg PO BID 01/03/25 01/03/25 History Allergies Allergy/AdvReac Type Severity Reaction Status Date / Time Iodinated Contrast Media Allergy Rash/Hives Verified 01/03/25 17:18 Iodine and Iodide Containing Allergy Rash/Hives Verified 01/03/25 17:18 Produc liraglutide [From Saxenda] AdvReac Unknown Nausea & Verified 01/03/25 17:18 Vomiting NSAIDS (Non-Steroidal AdvReac Unknown Nausea & Verified 01/03/25 17:18 Anti-Inflamma Vomiting aspirin AdvReac Nausea & Verified 01/03/25 17:18 Vomiting with high doses azithromycin AdvReac Vomiting Verified 01/03/25 17:18 naproxen [From Naprosyn] AdvReac Nausea & Verified 01/03/25 17:18 Vomiting Physical Exam Vitals: Vital Signs Temp Pulse Pulse Resp BP BP BP 01/04/25 14:37 90/58 01/04/25 13:41 18 01/04/25 13:40 97.7 F 77 18 78/60 01/04/25 07:00 97.9 F 74 18 97/52 01/04/25 05:33 114/72 01/04/25 01:53 97.3 F L 73 17 95/62 01/03/25 21:30 116/72 01/03/25 20:51 98.1 F 72 18 92/50 01/03/25 19:59 73 18 100/52 01/03/25 18:28 72 18 101/58 Pulse Ox 01/04/25 14:37 01/04/25 13:41 01/04/25 13:40 96 01/04/25 07:00 98 01/04/25 05:33 96 01/04/25 01:53 93 L 05/31/25 21:30 01/03/25 20:51 94 L 01/03/25 19:59 99 01/03/25 18:28 99 Intake and Output 01/04/25 01/04/25 01/04/25 06:59 14:59 22:59 Output Total 400 700 Balance -400 -700 Output: Urine 400 700 Other: Voiding Method Diaper Diaper External Catheter External Catheter # Voids 0 1 # Bowel Movements 0 GENERAL: The patient is alert and oriented x3, not in any acute distress. Well developed, well nourished. Lethargic HEENT: Pupils are round and equally reacting to light. EOMI. No scleral icterus. No conjunctival pallor. Normocephalic, atraumatic. No pharyngeal erythema. No thyromegaly. CARDIOVASCULAR: S1 and S2 present. No murmurs, rubs, or gallops. PULMONARY: Chest is clear to auscultation, no wheezing , bilateral crackles. ABDOMEN: Soft, nontender, nondistended, normoactive bowel sounds. No palpable organomegaly. MUSCULOSKELETAL: No joint swelling or deformity. EXTREMITIES: No cyanosis, clubbing,. Bilateral pitting leg edema. NEUROLOGICAL: Gross neurological examination did not reveal any focal deficits. SKIN: No rashes. no petechiae. Results CBC & Chem 7: 01/03/25 14:09 01/05/25 02:49 Labs: Abnormal Lab Results - Last 24 Hours (Table) 01/03/25 01/03/25 01/04/25 Range/Units 14:09 22:03 05:24 POC Glucose (mg/dL) 257 H 232 H (70-110) mg/dL Hemoglobin A1c 9.1 H (<=6.0) % 01/04/25 Range/Units 12:23 POC Glucose (mg/dL) 255 H (70-110) mg/dL Hemoglobin A1c (<=6.0) % Thrombosis Risk Factor Assmnt - Choose All That Apply Each Factor Represents 1 point: Abnormal pulmonary function (COPD), Obesity (BMI >25) Each Risk Factor Represents 2 Points: Age 61-74 years Each Risk Factor Represents 3 Points: Positive Factor V Leiden, Family history of DVT/PE, History of DVT/PE Thrombosis Risk Factor Assessment Total Risk Factor Score: 13 Thrombosis Risk Factor Assessment Level: High Risk Assessment and Plan Assessment: Acute on chronic congestive heart failure, systolic with ejection fraction 45 to 50% Acute kidney injury, cardiorenal syndrome Generalized weakness Respiratory acidosis Chronic kidney disease stage III Obesity with BMI of 30 Acute on chronic hypoxic respiratory failure Diabetes mellitus Hypertension Hyperlipidemia Coronary artery disease Plan: Continue with IV Lasix Monitor creatinine Monitor acute kidney output Dual antiplatelet therapy Continue with insulin sliding scale will monitor glucose. Resume Lantus Cardiology team consult Further recommendation based on the clinical course GI prophylaxis Protonix DVT prophylaxis on aspirin and Plavix Paper benzodiazepines Patient counseled against using narcotics trying to gradually lower dose, risk explained Prognosis guarded
[2025-01-05] MEDS: METOPROLOL TARTRATE 12.5 MG TAB PO SCH (09:29)
[2025-01-05] MEDS: DAPAGLIFLOZIN PROPANEDIOL 10 MG TABLET PO SCH (09:29)
[2025-01-05 11:30] VITALS: BMI 28.0
[2025-01-05 12:13] LABS: Glucose,Whole Blood 210 mg/dL (70-110)
--- NOTE | 2025-01-05 12:15 | CA ---
Transthoracic Echo Report Name: Rosalinda Brothers Age: 69 Gender: F : 1955 Exam Date: 01/05/2025 10:52 Exam Location: [place] [facility] Ht (in): 65 Wt (lb): 181 Ordering Physician: Daniela Patton Attending/Referring Phys: [id number], Abdi Sap [employer] Consultant Samina Ochoa, [place] Procedure CPT: Indications: pericardial effusion Cardiac Hx: Technical Quality: Fair Contrast 1: Total Dose (mL): Contrast 2: Total Dose (mL): MEASUREMENTS (Male / Female) Normal Values 2D ECHO LV Diastolic Diameter PLAX 4.1 cm 4.2 - 5.9 / 3.9 - 5.3 cm LV Systolic Diameter PLAX 3.0 cm IVS Diastolic Thickness 1.2 cm 0.6 - 1.0 / 0.6 - 0.9 cm LVPW Diastolic Thickness 1.0 cm 0.6 - 1.0 / 0.6 - 0.9 cm LV Relative Wall Thickness 0.5 FINDINGS Left Ventricle Left ventricular ejection fraction is estimated at 40 % with regional variaibility. Mildly increased septal wall thickness. Right Ventricle Right Atrium Left Atrium Mitral Valve Aortic Valve Tricuspid Valve Pulmonic Valve Pericardium Small circumferential pericardial effusion. Pleural effusion. Aorta CONCLUSIONS Limited echo LVEF 40% Anteroapical hypokinesia Small circumferential pericardial effusion. Sided pleural effusion. No signs of tamponade physiology IVC is collapsible with inspiration Previewed by: Dr Alfonso Knight (Electronically Signed) Final Date: 05 January 2025 12:13
--- NOTE | 2025-01-05 12:16 | P.PN ---
Subjective HISTORY OF PRESENT ILLNESS: This is 69-year-old female patient of Dr. JOSH Babcock with past medical history of coronary artery disease status post multivessel PCI, hypertension, hyperlipidemia, diabetes mellitus type 2, remote history of tobacco use and dependence, poor functional capacity, history of GI bleed requiring rectal tamponade, chronic hypoxic respiratory failure on home O2 at 3 L. We have been asked to evaluate the patient for CHF. Patient has had several recent hospitalization most recently December 17 through December 23. During that hos pitalization, patient was seen by cardiology due to a moderate-sized pericardial effusion without tamponade. Patient states that she has not been feeling well since she went home. She feels very tired and fatigued but that has been going on for at least the last few months. She denies any fever or chills. She states she has a little bit of lightheadedness or dizziness. Patient states that she has been taking all of her medications as directed including colchicine. She states her organizes her medications. She does complain of increased lower extremity edema and lymphedema. She does not feel that she has been eating and drinking very much because she has been nauseated. She did have some diarrhea that went away. Blood pressure 97/52, pulse ox 98% on 3 L nasal cannula, heart rate in the 70s. Patient is afebrile. -EKG: Sinus rhythm, low voltage. -Chest x-ray: Cardiomegaly, pulmonary vascular congestion and small bilateral pleural effusions. -Laboratory studies: WBC 5.5, hemoglobin 8.9. Electrolytes are normal. BUN 46 and creatinine 1.59. Troponin negative x 1. proBNP 3830. -Home cardiac medications: Aspirin 81 mg daily, atorvastatin 80 mg daily, Plavix 75 mg daily, colchicine 0.6 mg twice daily, Lasix 40 mg daily, losartan 25 mg daily, Lopressor 12.5 mg twice daily, Nitrostat as needed, spironolactone 25 mg daily. -Limited echocardiogram performed 12/22/2024 revealed normal LV size and function. Mild to moderate pericardial effusion without tamponade physiology. -Cardiac catheterization history 10/29/2024: LAD stented in July was widely patent. Circumflex with previous mid stent jailed OM with good flow. RCA with mid lesion and diffuse disease with heavy calcifications. PCI of the RCA with 3 stents. 01/05/2025 Patient examined this morning at bedside. Patient currently denies chest pain or pressure. She denies shortness of breath. 2D echo remains pending. Patient's blood pressure is improved at the time of examination. PHYSICAL EXAM: VITAL SIGNS: Reviewed. GENERAL: Well-developed in no acute distress. NECK: Supple. No JVD or thyromegaly LUNGS: Respirations even and unlabored. Lungs essentially clear to auscultation bilaterally. HEART: Regular rate and rhythm. S1 and S2 heard. EXTREMITIES: Normal range of motion. No clubbing or cyanosis. Peripheral pulses intact. No lower extremity edema ASSESSMENT: Acute kidney injury Nausea and decreased appetite History of pericardial effusion, December 2024 Coronary artery disease with previous PCI, most recently 2 mid proximal and ostial RCA with 3 stents, October 2024 Ischemic cardiomyopathy, 45% Hypertension Hyperlipidemia Diabetes Pleural effusion status post left thoracentesis 12/21 Chronic hypoxic respiratory failure on home O2 at 3 L PLAN: Continue to hold losartan Resume metoprolol at a decreased dose of 12.5 mg twice a day Add Farxiga 10 mg daily Continue additional cardiac medications including aspirin, atorvastatin, Plavix Continue IV Lasix 40 mg every 12 hours Daily weights, accurate intake and output, and monitoring of kidney function 2D echo has been ordered. Await results. Further recommendations pending patient course Nurse practitioner note has been reviewed by physician. Signing provider agrees with the documented findings, assessment, and plan of care documented by RN PACU as a scribe. Objective - Vital Signs Vital signs: Vital Signs Temp 98 F 01/05/25 07:00 Pulse 97 01/05/25 07:00 Resp 16 01/05/25 07:00 BP 133/74 01/05/25 07:00 Pulse Ox 97 01/05/25 07:00 FiO2 Intake & Output 01/04/25 01/05/25 01/05/25 18:59 06:59 18:59 Intake Total 220 Output Total 1150 1400 400 Balance -1150 -1400 -180 Weight 76.5 kg 76.5 kg Intake: Oral 220 Output: Urine 1150 1400 400 Other: Voiding Method Diaper Diaper External Catheter External Catheter # Voids 1 1 # Bowel Movements 1 2 - Labs CBC & Chem 7: 01/03/25 14:09 01/05/25 02:49 Labs: Abnormal Lab Results - Last 24 Hours (Table) 01/04/25 01/04/2525 Range/Units 12:23 17:09 20:12 Carbon Dioxide (21.6-31.8) mmol/L Anion Gap (4.00-12.00) mmol/L BUN (9.0-27.0) mg/dL BUN/Creatinine Ratio (12.00-20.00) Ratio Glucose (70-110) mg/dL POC Glucose (mg/dL) 255 H 341 H 324 H (70-110) mg/dL Calcium (8.7-10.3) mg/dL 01/05/25 01/05/25 Range/Units 02:49 05:38 Carbon Dioxide 32.8 H (21.6-31.8) mmol/L Anion Gap 12.20 H (4.00-12.00) mmol/L BUN 31.6 H (9.0-27.0) mg/dL BUN/Creatinine Ratio 26.33 H (12.00-20.00) Ratio Glucose 135 H (70-110) mg/dL POC Glucose (mg/dL) 145 H (70-110) mg/dL Calcium 8.4 L (8.7-10.3) mg/dL
--- NOTE | 2025-01-05 13:49 | P.PN ---
Subjective Progress Note Date: 01/05/25 This is a pleasant 69 years old female with past medical history of multiple medical problems including recent hospitalization for GI bleed where she was transferred to [facility] requiring 5 units of blood transfusion. Information were obtained with the help of the daughter at bedside. Patient was not feeling well for 2 weeks and then recently noticed increased oxygen requirements from 3 up to 4 L/min by her family. She is also felt very weak She is short of breath and lethargic for about 1 month. Has chest pain that coming on with cough and she has a lot of phlegm No specific GI or urinary symptoms. No headache dizziness weakness or numbness No nausea vomiting with the eating. She feels constipated last bowel movement was on Also she has urinary urgency Vitals stable no fever WBC normal. Hemoglobin 8.9. INR within the reference range. Venous pH slightly low at 7.3 and pCO2 63. Creatinine 1.5. Glucose slightly elevated. Liver enzymes are normal. Troponin is negative. proBNP is elevated 3830. Chest x-ray showing cardiomegaly bilateral vascular congestion EKG shows sinus rhythm at 76. Patient is started on IV Lasix and continued on aspirin and Plavix 01/05/2025 Patient is evaluated in follow-up in the observation unit. She is currently being diuresed with 40 g of IV Lasix every 12 hours. Her repeat limited echocardiogram reveals an EF of 40%. Additional medication changes were made and patient continues on metoprolol losartan remains on hold and Farxiga has been added. Labs today reveal a sodium level of 141 potassium 4.0, BUN of 31.6 creatinine of 1.2. Review of Systems Constitutional: Denied any fatigue denied any fever. Cardio vascular: denied any chest pain, palpitations Gastrointestinal: denied any nausea, vomiting, diarrhea Pulmonary: Denied any shortness of breath cough Neurologic denied any new focal deficits All inpatient medications were reviewed and appropriate changes in these medications as dictated in the interval history and assessment and plan. PHYSICAL EXAMINATION: GENERAL: The patient is alert and oriented x3, not in any acute distress. Well developed, well nourished. HEENT: Pupils are round and equally reacting to light. EOMI. No scleral icterus. No conjunctival pallor. Normocephalic, atraumatic. No pharyngeal erythema. No thyromegaly. CARDIOVASCULAR: S1 and S2 present. No murmurs, rubs, or gallops. PULMONARY: Chest is clear to auscultation, no wheezing or crackles. ABDOMEN: Soft, nontender, nondistended, normoactive bowel sounds. No palpable organomegaly. MUSCULOSKELETAL: No joint swelling or deformity. EXTREMITIES: No cyanosis, clubbing, or pedal edema. NEUROLOGICAL: Gross neurological examination did not reveal any focal deficits. SKIN: No rashes. Assessment Acute on chronic congestive heart failure, systolic with ejection fraction 45 to 50% Acute kidney injury, cardiorenal syndrome Generalized weakness Respiratory acidosis Chronic kidney disease stage III Obesity with BMI of 30 Acute on chronic hypoxic respiratory failure Diabetes mellitus Hypertension Hyperlipidemia Coronary artery disease GI prophylaxis DVT prophylaxis Full Code Plan Continue with IV Lasix 40 mg Q12hr. Monitor creatinine Monitor strict intake and output Dual antiplatelet therapy Continue with insulin sliding scale will monitor glucose. Resume [facility] team consult Plan for home with HC on discharge The impression and plan of care has been dictated by Ebonie Mark Nurse Practitioner as directed. Dr. Pankaj MD I have performed a history and physical examination and medical decision making of this patient, discussed the same with the dictator, and agree with the dictators assessment and plan as written, documented as a scribe. Based on total visit time, I have performed more than 50% of this visit. Objective - Vital Signs Vital signs: Vital Signs Temp 98 F 01/05/25 07:00 Pulse 97 01/05/25 07:00 Resp 16 01/05/25 07:00 BP 133/74 01/05/25 07:00 Pulse Ox 97 01/05/25 07:00 FiO2 Intake & Output 01/04/25 01/05/25 01/05/25 18:59 06:59 18:59 Intake Total 220 Output Total 1150 1400 400 Balance -1150 -1400 -180 Weight 76.5 kg 76.5 kg Intake: Oral 220 Output: Urine 1150 1400 400 Other: Voiding Method Diaper Diaper External Catheter External Catheter # Voids 1 1 # Bowel Movements 1 2 - Labs CBC & Chem 7: 01/03/25 14:09 01/05/25 02:49 Labs: Abnormal Lab Results - Last 24 Hours (Table) 01/04/25 01/04/25 01/05/25 Range/Units 17:09 20:12 02:49 Carbon Dioxide 32.8 H (21.6-31.8) mmol/L Anion Gap 12.20 H (4.00-12.00) mmol/L BUN 31.6 H (9.0-27.0) mg/dL BUN/Creatinine Ratio 26.33 H (12.00-20.00) Ratio Glucose 135 H (70-110) mg/dL POC Glucose (mg/dL) 341 H 324 H (70-110) mg/dL Calcium 8.4 L (8.7-10.3) mg/dL 01/05/25 01/05/25 Range/Units 05:38 12:11 Carbon Dioxide (21.6-31.8) mmol/L Anion Gap (4.00-12.00) mmol/L BUN (9.0-27.0) mg/dL BUN/Creatinine Ratio (12.00-20.00) Ratio Glucose (70-110) mg/dL POC Glucose (mg/dL) 145 H 210 H (70-110) mg/dL Calcium (8.7-10.3) mg/dL Assessment and Plan Time with Patient: Less than 30
[2025-01-05] MEDS: ACETAMINOPHEN TAB 325 MG TAB PO PRN (15:01)
[2025-01-05 17:11] LABS: Glucose,Whole Blood 163 mg/dL (70-110)
[2025-01-05 20:43] LABS: Glucose,Whole Blood 192 mg/dL (70-110)
[2025-01-06 05:48] LABS: Glucose,Whole Blood 185 mg/dL (70-110)
[2025-01-06 08:04] LABS: HCT 34.1 % (39.6-50.0); HGB 9.6 g/dL (13.0-17.0); MCH 23.8 pg (27.0-32.0); MCHC 28.2 g/dL (32.0-37.0); MCV 84.4 FL (80.0-97.0); Mean Platelet Volume 12.4 FL (9.5-12.2); NRBC Per 100 WBC 0 X 10*3/uL (0.00-0.01); Platelet Count 229 X 10*3/uL (140-440); RBC 4.04 X 10*6/uL (4.40-5.60); RDW 19.9 % (11.5-14.5); WBC 5.59 X 10*3/uL (4.50-10.00)
[2025-01-06 08:05] LABS: Basophils # (A) 0.02 X 10*3/uL (0.00-0.10); Basophils % (A) 0.4 %; Eosinophils # (A) 0.17 X 10*3/uL (0.04-0.35); Lymphocytes % (A) 23.3 %; Monocytes # (A) 0.57 X 10*3/uL (0.20-1.00); Monocytes % (A) 10.2 %; Neutrophils # (A) 3.52 X 10*3/uL (1.80-7.70); Neutrophils % (A) 62.9 %
[2025-01-06 08:20] LABS: Blood Urea Nitrogen 24.7 mg/dL (9.0-27.0); Calcium 8.5 mg/dL (8.7-10.3); Chloride 95 mmol/L (96-109); Glucose 183 mg/dL (70-110); Potassium 3.9 mmol/L (3.5-5.5); Sodium 143 mmol/L (135-145)
[2025-01-06] MEDS: SPIRONOLACTONE 25 MG TAB PO SCH (09:07)
[2025-01-06] MEDS: SODIUM FERRIC GLUCONAT-SUCROSE 125 MG in SODIUM CHLORIDE 0.9% 100 ML IVPB ONE (09:42)
--- NOTE | 2025-01-06 11:33 | P.PN ---
Subjective Progress Note Date: 01/06/25 This is a pleasant 69 years old female with past medical history of multiple medical problems including recent hospitalization for GI bleed where she was transferred to [facility] requiring 5 units of blood transfusion. Information were obtained with the help of the daughter at bedside. Patient was not feeling well for 2 weeks and then recently noticed increased oxygen requirements from 3 up to 4 L/min by her family. She is also felt very weak She is short of breath and lethargic for about 1 month. Has chest pain that coming on with cough and she has a lot of phlegm No specific GI or urinary symptoms. No headache dizziness weakness or numbness No nausea vomiting with the eating. She feels constipated last bowel movement was on Also she has urinary urgency Vitals stable no fever WBC normal. Hemoglobin 8.9. INR within the reference range. Venous pH slightly low at 7.3 and pCO2 63. Creatinine 1.5. Glucose slightly elevated. Liver enzymes are normal. Troponin is negative. proBNP is elevated 3830. Chest x-ray showing cardiomegaly bilateral vascular congestion EKG shows sinus rhythm at 76. Patient is started on IV Lasix and continued on aspirin and Plavix 01/05/2025 Patient is evaluated in follow-up in the observation unit. She is currently being diuresed with 40 mg of IV Lasix every 12 hours. Her repeat limited echocardiogram reveals an EF of 40%. Additional medication changes were made and patient continues on metoprolol losartan remains on hold and Farxiga has been added. Labs today reveal a sodium level of 141 potassium 4.0, BUN of 31.6 creatinine of 1.2. 01/06/2025 Debility and follow-up on the medical floor. She continues on a course of IV L asix at 40 mg every 12 hours. Cardiology is following the patient closely. She is complaining with pain to her left rib area and states it is worse with deep inspiration. Review of Systems Constitutional: Denied any fatigue denied any fever. Cardio vascular: denied any chest pain, palpitations Gastrointestinal: denied any nausea, vomiting, diarrhea Pulmonary: Denied any shortness of breath cough Neurologic denied any new focal deficits All inpatient medications were reviewed and appropriate changes in these medications as dictated in the interval history and assessment and plan. PHYSICAL EXAMINATION: GENERAL: The patient is alert and oriented x3, not in any acute distress. Well developed, well nourished. HEENT: Pupils are round and equally reacting to light. EOMI. No scleral icterus. No conjunctival pallor. Normocephalic, atraumatic. No pharyngeal erythema. No thyromegaly. CARDIOVASCULAR: S1 and S2 present. No murmurs, rubs, or gallops. PULMONARY: Chest is clear to auscultation, no wheezing or crackles. ABDOMEN: Soft, nontender, nondistended, normoactive bowel sounds. No palpable organomegaly. MUSCULOSKELETAL: No joint swelling or deformity. EXTREMITIES: No cyanosis, clubbing, or pedal edema. NEUROLOGICAL: Gross neurological examination did not reveal any focal deficits. SKIN: No rashes. Assessment Acute on chronic congestive heart failure, systolic with ejection fraction 45 to 50% Acute kidney injury, cardiorenal syndrome Generalized weakness Respiratory acidosis Chronic kidney disease stage III Obesity with BMI of 30 Acute on chronic hypoxic respiratory failure Diabetes mellitus Hypertension Hyperlipidemia Coronary artery disease GI prophylaxis DVT prophylaxis Full Code Plan Check a D-Dimer Continue with IV Lasix 40 mg Q12hr. Monitor creatinine Monitor strict intake and output Dual antiplatelet therapy Continue with insulin sliding scale will monitor glucose. [facility] Plan for home with HC on discharge The impression and plan of care has been dictated by Ebonie Mark Nurse Practitioner as directed. Dr. Pankaj MD I have performed a history and physical examination and medical decision making of this patient, discussed the same with the dictator, and agree with the dictators assessment and plan as written, documented as a scribe. Based on total visit time, I have performed more than 50% of this visit. Objective - Vital Signs Vital signs: Vital Signs Temp 97.8 F 01/06/25 02:30 Pulse 87 01/06/25 02:30 Resp 16 01/06/25 02:30 BP 101/63 01/06/25 02:30 Pulse Ox 98 01/06/25 02:30 FiO2 Intake & Output 01/05/25 01/06/25 01/06/25 18:59 06:59 18:59 Intake Total 441 Output Total 1400 1000 Balance -959 -1000 Weight 76.5 kg Intake: Oral 441 Output: Urine 1400 1000 Other: Voiding Method Diaper Diaper External Catheter External Catheter # Voids 1 # Bowel Movements 2 - Labs CBC & Chem 7: 01/06/25 04:19 01/06/25 04:19 Labs: Abnormal Lab Results - Last 24 Hours (Table) 01/05/25 01/05/25 01/05/25 Range/Units 12:11 17:10 20:42 RBC (4.40-5.60) X 10*6/uL Hgb (13.0-17.0) g/dL Hct (39.6-50.0) % MCH (27.0-32.0) pg MCHC (32.0-37.0) g/dL RDW (11.5-14.5) % MPV (9.5-12.2) FL Chloride (96-109) mmol/L Carbon Dioxide (21.6-31.8) mmol/L Est GFR (CKD-EPI) (>=60) Glucose (70-110) mg/dL POC Glucose (mg/dL) 210 H 163 H 192 H (70-110) mg/dL Calcium (8.7-10.3) mg/dL 01/06/25 01/06/25 01/06/25 Range/Units 04:19 04:19 05:47 RBC 4.04 L (4.40-5.60) X 10*6/uL Hgb 9.6 L (13.0-17.0) g/dL Hct 34.1 L (39.6-50.0) % MCH 23.8 L (27.0-32.0) pg MCHC 28.2 L (32.0-37.0) g/dL RDW 19.9 H (11.5-14.5) % MPV 12.4 H (9.5-12.2) FL Chloride 95 L (96-109) mmol/L Carbon Dioxide 36.0 H (21.6-31.8) mmol/L Est GFR (CKD-EPI) 59 L (>=60) Glucose 183 H (70-110) mg/dL POC Glucose (mg/dL) 185 H (70-110) mg/dL Calcium 8.5 L (8.7-10.3) mg/dL Assessment and Plan Time with Patient: Less than 30
[2025-01-06 11:47] LABS: Glucose,Whole Blood 331 mg/dL (70-110)
[2025-01-06] MEDS: HEPARIN SODIUM,PORCINE 5,000 UNIT/ML 1 ML VIAL SQ SCH (12:13)
--- NOTE | 2025-01-06 13:08 | P.PN ---
Subjective HISTORY OF PRESENT ILLNESS: This is 69-year-old female patient of Dr. JOSH Babcock with past medical history of coronary artery disease status post multivessel PCI, hypertension, hyperlipidemia, diabetes mellitus type 2, remote history of tobacco use and dependence, poor functional capacity, history of GI bleed requiring rectal tamponade, chronic hypoxic respiratory failure on home O2 at 3 L. We have been asked to evaluate the patient for CHF. Patient has had several recent hospitalization most recently December 17 through December 23. During that hos pitalization, patient was seen by cardiology due to a moderate-sized pericardial effusion without tamponade. Patient states that she has not been feeling well since she went home. She feels very tired and fatigued but that has been going on for at least the last few months. She denies any fever or chills. She states she has a little bit of lightheadedness or dizziness. Patient states that she has been taking all of her medications as directed including colchicine. She states her organizes her medications. She does complain of increased lower extremity edema and lymphedema. She does not feel that she has been eating and drinking very much because she has been nauseated. She did have some diarrhea that went away. Blood pressure 97/52, pulse ox 98% on 3 L nasal cannula, heart rate in the 70s. Patient is afebrile. -EKG: Sinus rhythm, low voltage. -Chest x-ray: Cardiomegaly, pulmonary vascular congestion and small bilateral pleural effusions. -Laboratory studies: WBC 5.5, hemoglobin 8.9. Electrolytes are normal. BUN 46 and creatinine 1.59. Troponin negative x 1. proBNP 3830. -Home cardiac medications: Aspirin 81 mg daily, atorvastatin 80 mg daily, Plavix 75 mg daily, colchicine 0.6 mg twice daily, Lasix 40 mg daily, losartan 25 mg daily, Lopressor 12.5 mg twice daily, Nitrostat as needed, spironolactone 25 mg daily. -Limited echocardiogram performed 12/22/2024 revealed normal LV size and function. Mild to moderate pericardial effusion without tamponade physiology. -Cardiac catheterization history 10/29/2024: LAD stented in July was widely patent. Circumflex with previous mid stent jailed OM with good flow. RCA with mid lesion and diffuse disease with heavy calcifications. PCI of the RCA with 3 stents. 01/05/2025 Patient examined this morning at bedside. Patient currently denies chest pain or pressure. She denies shortness of breath. 2D echo remains pending. Patient's blood pressure is improved at the time of examination. 02/02/2025 Patient examined this morning at bedside. Patient currently denies chest pain or pressure. She denies shortness of breath. Echocardiogram completed revealing ejection fraction 40% with anterior apical hypokinesia, small circumferential pericardial effusion, no tamponade. Vital signs are stable. PHYSICAL EXAM: VITAL SIGNS: Reviewed. GENERAL: Well-developed in no acute distress. NECK: Supple. No JVD or thyromegaly LUNGS: Respirations even and unlabored. Lungs with bilateral crackles. Positive JVD. ABDOMEN: distended HEART: Regular rate and rhythm. S1 and S2 heard. EXTREMITIES: Normal range of motion. No clubbing or cyanosis. Peripheral pulses intact. No lower extremity edema ASSESSMENT: Acute kidney injury Nausea and decreased appetite History of pericardial effusion, December 2024 Coronary artery disease with previous PCI, most recently 2 mid proximal and ostial RCA with 3 stents, October 2024 Ischemic cardiomyopathy, 45% Hypertension Hyperlipidemia Diabetes Pleural effusion status post left thoracentesis 12/21 Chronic hypoxic respiratory failure on home O2 at 3 L PLAN: Continue to hold losartan Add Aldactone 12.5 mg daily Continue additional cardiac medications including aspirin, Lipitor, Plavix, Farxiga, metoprolol Continue IV Lasix for today. Anticipate transitioning to oral Bumex 1 mg daily tomorrow Daily weights, accurate intake and output, and monitoring of kidney function 1 dose of IV iron today and begin oral iron supplementation starting tomorrow Further recommendations pending patient course Nurse practitioner note has been reviewed by physician. Signing provider agrees with the documented findings, assessment, and plan of care documented by BUSINESS CONTINUITY ANALYST as a scribe. Objective - Vital Signs Vital signs: Vital Signs Temp 98.1 F 01/06/25 07:00 Pulse 92 01/06/25 07:00 Resp 17 01/06/25 07:00 BP 110/67 01/06/25 07:00 Pulse Ox 97 01/06/25 07:00 FiO2 Intake & Output 01/05/25 01/06/25 01/06/25 18:59 06:59 18:59 Intake Total 441 400 Output Total 1400 1000 Balance -959 -1000 400 Weight 76.5 kg Intake: Oral 441 400 Output: Urine 1400 1000 Other: Voiding Method Diaper Diaper External Catheter External Catheter # Voids 1 # Bowel Movements 2 - Labs CBC & Chem 7: 01/06/25 04:19 01/06/25 04:19 Labs: Abnormal Lab Results - Last 24 Hours (Table) 01/05/25 01/05/25 01/06/25 Range/Units 17:10 20:42 04:19 RBC (4.40-5.60) X 10*6/uL Hgb (13.0-17.0) g/dL Hct (39.6-50.0) % MCH (27.0-32.0) pg MCHC (32.0-37.0) g/dL RDW (11.5-14.5) % MPV (9.5-12.2) FL Chloride 95 L (96-109) mmol/L Carbon Dioxide 36.0 H (21.6-31.8) mmol/L Est GFR (CKD-EPI) 59 L (>=60) Glucose 183 H (70-110) mg/dL POC Glucose (mg/dL) 163 H 192 H (70-110) mg/dL Calcium 8.5 L (8.7-10.3) mg/dL 01/06/25 01/06/25 01/06/25 Range/Units 04:19 05:47 11:46 RBC 4.04 L (4.40-5.60) X 10*6/uL Hgb 9.6 L (13.0-17.0) g/dL Hct 34.1 L (39.6-50.0) % MCH 23.8 L (27.0-32.0) pg MCHC 28.2 L (32.0-37.0) g/dL RDW 19.9 H (11.5-14.5) % MPV 12.4 H (9.5-12.2) FL Chloride (96-109) mmol/L Carbon Dioxide (21.6-31.8) mmol/L Est GFR (CKD-EPI) (>=60) Glucose (70-110) mg/dL POC Glucose (mg/dL) 185 H 331 H (70-110) mg/dL Calcium (8.7-10.3) mg/dL
[2025-01-06 17:36] LABS: Glucose,Whole Blood 229 mg/dL (70-110)
[2025-01-06 20:16] LABS: Glucose,Whole Blood 252 mg/dL (70-110)
[2025-01-06] MEDS: methylPREDNISolone SOD SUCCI 125 MG/2 ML VIAL IV ONE (20:36)
[2025-01-07] MEDS: diphenhydrAMINE 50 MG/ML 1 ML VIAL IVP ONE (01:57)
[2025-01-07] MEDS: FAMOTIDINE 20 MG/2 ML VIAL IV ONE (01:58)
--- NOTE | 2025-01-07 03:25 | CT ---
EXAM: CT Angiography Chest With Intravenous Contrast CLINICAL HISTORY: ITS.REASON CT Reason: elevated D-Dimer, shortness of breath TECHNIQUE: Axial computed tomographic angiography images of the chest with intravenous contrast. CTDI is 38.3 mGy and DLP is 718 mGy-cm. This CT exam was performed using one or more of the following dose reduction techniques: automated exposure control, adjustment of the mA and/or kV according to patient size, and/or use of iterative reconstruction technique. MIP reconstructed images were created and reviewed. COMPARISON: No relevant prior studies available. FINDINGS: Pulmonary arteries: Unremarkable. No pulmonary embolism. Aorta: Atherosclerotic changes of the aorta. No thoracic aortic aneurysm. Lungs: See below. Pleural space: Moderate bilateral pleural effusions. Subjacent airspace consolidations, concerning for atelectasis. Heart: Small pericardial effusion. Cardiomegaly. No evidence of RV dysfunction. Bones/joints: Degenerative changes of the spine. No acute fracture. No dislocation. Soft tissues: Unremarkable. Lymph nodes: Unremarkable. No enlarged lymph nodes. IMPRESSION: Moderate bilateral pleural effusions. Subjacent airspace consolidations, concerning for atelectasis.
[2025-01-07] MEDS: FERROUS SULFATE 325 MG TAB PO SCH (04:57)
[2025-01-07 05:25] LABS: African American GFR (CKD) 53 (>60 ml/min/1.73 sqM); Anion Gap 11 mmol/L; Blood Urea Nitrogen 31 mg/dL (7-17); Calcium 8.5 mg/dL (8.4-10.2); Carbon Dioxide 36 mmol/L (22-30); Chloride 89 mmol/L (98-107); Glucose 291 mg/dL (74-99); Non-African American GFR(CKD) 46 (>60 ml/min/1.73 sqM); Potassium 4.8 mmol/L (3.5-5.1); Sodium 136 mmol/L (137-145)
[2025-01-07 05:46] LABS: HCT 35.2 % (37.2-46.3); HGB 10.1 g/dL (12.0-15.0); Lymphocytes # (A) 0.44 10*3/uL (0.90-5.00); Lymphocytes % (A) 9.4 %; MCHC 28.7 g/dL (32.0-37.0); MCV 83.6 fL (80.0-97.0); Mean Platelet Volume 11.8 fL (9.5-12.2); Monocytes # (A) 0.04 10*3/uL (0.20-1.00); Monocytes % (A) 0.9 %; Neutrophils # (A) 4.16 10*3/uL (1.80-7.70); Neutrophils % (A) 89.1 %; Platelet Count 186 10*3/uL (140-440); RBC 4.21 10*6/uL (4.10-5.20); RDW 19.9 % (11.5-14.5); WBC 4.67 10*3/uL (4.50-10.00)
[2025-01-07 06:25] LABS: Glucose,Whole Blood 318 mg/dL (70-110)
[2025-01-07] MEDS: SACUBITRIL/VALSARTAN 24 MG-26 MG TABLET PO SCH (09:14)
[2025-01-07] MEDS: BUMETANIDE 1 MG TAB PO SCH (10:05)
[2025-01-07 12:13] LABS: Glucose,Whole Blood 383 mg/dL (70-110)
--- NOTE | 2025-01-07 12:29 | P.PN ---
Subjective HISTORY OF PRESENT ILLNESS: This is 69-year-old female patient of Dr. JOSH Babcock with past medical history of coronary artery disease status post multivessel PCI, hypertension, hyperlipidemia, diabetes mellitus type 2, remote history of tobacco use and dependence, poor functional capacity, history of GI bleed requiring rectal tamponade, chronic hypoxic respiratory failure on home O2 at 3 L. We have been asked to evaluate the patient for CHF. Patient has had several recent hospitalization most recently December 17 through December 23. During that hos pitalization, patient was seen by cardiology due to a moderate-sized pericardial effusion without tamponade. Patient states that she has not been feeling well since she went home. She feels very tired and fatigued but that has been going on for at least the last few months. She denies any fever or chills. She states she has a little bit of lightheadedness or dizziness. Patient states that she has been taking all of her medications as directed including colchicine. She states her organizes her medications. She does complain of increased lower extremity edema and lymphedema. She does not feel that she has been eating and drinking very much because she has been nauseated. She did have some diarrhea that went away. Blood pressure 97/52, pulse ox 98% on 3 L nasal cannula, heart rate in the 70s. Patient is afebrile. -EKG: Sinus rhythm, low voltage. -Chest x-ray: Cardiomegaly, pulmonary vascular congestion and small bilateral pleural effusions. -Laboratory studies: WBC 5.5, hemoglobin 8.9. Electrolytes are normal. BUN 46 and creatinine 1.59. Troponin negative x 1. proBNP 3830. -Home cardiac medications: Aspirin 81 mg daily, atorvastatin 80 mg daily, Plavix 75 mg daily, colchicine 0.6 mg twice daily, Lasix 40 mg daily, losartan 25 mg daily, Lopressor 12.5 mg twice daily, Nitrostat as needed, spironolactone 25 mg daily. -Limited echocardiogram performed 12/22/2024 revealed normal LV size and function. Mild to moderate pericardial effusion without tamponade physiology. -Cardiac catheterization history 10/29/2024: LAD stented in July was widely patent. Circumflex with previous mid stent jailed OM with good flow. RCA with mid lesion and diffuse disease with heavy calcifications. PCI of the RCA with 3 stents. 01/05/2025 Patient examined this morning at bedside. Patient currently denies chest pain or pressure. She denies shortness of breath. 2D echo remains pending. Patient's blood pressure is improved at the time of examination. 01/06/2025 Patient examined this morning at bedside. Patient currently denies chest pain or pressure. She denies shortness of breath. Echocardiogram completed revealing ejection fraction 40% with anterior apical hypokinesia, small circumferential pericardial effusion, no tamponade. Vital signs are stable. 01/07/2025 Patient examined this morning at the bedside. Patient currently denies chest pain or pressure. She denies shortness of breath. She remains on IV Lasix. Kidney function stable. Blood pressure 116/67. PHYSICAL EXAM: VITAL SIGNS: Reviewed. GENERAL: Well-developed in no acute distress. NECK: Supple. No JVD or thyromegaly LUNGS: Respirations even and unlabored. Lungs diminished. ABDOMEN: distended HEART: Regular rate and rhythm. S1 and S2 heard. EXTREMITIES: Normal range of motion. No clubbing or cyanosis. Peripheral pulses intact. No lower extremity edema ASSESSMENT: Acute kidney injury Nausea and decreased appetite History of pericardial effusion, December 2024 Coronary artery disease with previous PCI, most recently to mid proximal and ostial RCA with 3 stents, October 2024 Ischemic cardiomyopathy, 45% Hypertension Hyperlipidemia Diabetes Pleural effusion status post left thoracentesis 12/21 Chronic hypoxic respiratory failure on home O2 at 3 L PLAN: Add Entresto 24-26 mg half a tablet twice a day Continue additional cardiac medications including Aldactone, aspirin, Lipitor, Plavix, Farxiga, metoprolol Discontinue IV Lasix. Begin Bumex 1 mg twice daily Increase activity as tolerated. Patient to be out of bed and into the chair today Recommend ECF at discharge. Social work following. Patient is stable for discharge from a cardiac standpoint Further recommendations pending patient course Nurse practitioner note has been reviewed by physician. Signing provider agrees with the documented findings, assessment, and plan of care documented by DENTAL LABORATORY TECHNICIAN as a scribe. Objective - Vital Signs Vital signs: Vital Signs Temp 98.8 F 01/07/25 07:00 Pulse 95 01/07/25 07:00 Resp 17 01/07/25 09:03 BP 116/67 01/07/25 07:00 Pulse Ox 97 01/07/25 07:00 FiO2 Intake & Output 0601/07/25 01/07/25 18:59 06:59 18:59 Intake Total 621 590 Output Total 700 1220 Balance -79 -630 Weight 71 kg Intake: Oral 621 590 Output: Urine 700 1220 Other: Voiding Method Diaper Diaper External Catheter External Catheter - Labs CBC & Chem 7: 01/07/25 04:32 01/07/25 04:32 Labs: Abnormal Lab Results - Last 24 Hours (Table) 01/06/25 01/06/25 01/06/25 Range/Units 11:43 17:35 20:14 Hgb (12.0-15.0) g/dL Hct (37.2-46.3) % MCH (27.0-32.0) pg MCHC (32.0-37.0) g/dL RDW (11.5-14.5) % Lymphocytes # (0.90-5.00) 10*3/uL Monocytes # (0.20-1.00) 10*3/uL Eosinophils # (0.04-0.35) 10*3/uL D-Dimer 7.29 H (<0.60) mg/L FEU Sodium (137-145) mmol/L Chloride (98-107) mmol/L Carbon Dioxide (22-30) mmol/L BUN (7-17) mg/dL Creatinine (0.52-1.04) mg/dL Glucose (74-99) mg/dL POC Glucose (mg/dL) 229 H 252 H (70-110) mg/dL 01/07/25 01/07/25 01/07/25 Range/Units 04:32 04:32 06:23 Hgb 10.1 L (12.0-15.0) g/dL Hct 35.2 L (37.2-46.3) % MCH 24.0 L (27.0-32.0) pg MCHC 28.7 L (32.0-37.0) g/dL RDW 19.9 H (11.5-14.5) % Lymphocytes # 0.44 L (0.90-5.00) 10*3/uL Monocytes # 0.04 L (0.20-1.00) 10*3/uL Eosinophils # 0.00 L (0.04-0.35) 10*3/uL D-Dimer (<0.60) mg/L FEU Sodium 136 L (137-145) mmol/L Chloride 89 L (98-107) mmol/L Carbon Dioxide 36 H (22-30) mmol/L BUN 31 H (7-17) mg/dL Creatinine 1.19 H (0.52-1.04) mg/dL Glucose 291 H (74-99) mg/dL POC Glucose (mg/dL) 318 H (70-110) mg/dL 01/07/25 Range/Units 12:12 Hgb (12.0-15.0) g/dL Hct (37.2-46.3) % MCH (27.0-32.0) pg MCHC (32.0-37.0) g/dL RDW (11.5-14.5) % Lymphocytes # (0.90-5.00) 10*3/uL Monocytes # (0.20-1.00) 10*3/uL Eosinophils # (0.04-0.35) 10*3/uL D-Dimer (<0.60) mg/L FEU Sodium (137-145) mmol/L Chloride (98-107) mmol/L Carbon Dioxide (22-30) mmol/L BUN (7-17) mg/dL Creatinine (0.52-1.04) mg/dL Glucose (74-99) mg/dL POC Glucose (mg/dL) 383 H (70-110) mg/dL
--- NOTE | 2025-01-07 14:05 | P.DS ---
Providers Date of admission: 01/05/25 07:49 Attending physician: Francisco Vela Consults: 01/03/25 15:20 Consult Physician Routine Consulting Provider: Liliana Lamas Consult Reason/Comments: CHF Do you want consulting provider notified?: Yes Primary care physician: Miguel Sy Hospital Course: Final Diagnosis Acute on chronic congestive heart failure, systolic with ejection fraction 45 to 50% Acute kidney injury, cardiorenal syndrome Generalized weakness Respiratory acidosis Chronic kidney disease stage III Obesity with BMI of 30 Acute on chronic hypoxic respiratory failure Diabetes mellitus Hypertension Hyperlipidemia Coronary artery disease Discharge Disposition \Patient stable medically for discharge to [facility]. Patient has been optimized on her cardiac medications. She will repeat blood work in 2 to 3 days to monitor her electrolytes and renal function. Patient to follow up closely with cardiology on discharge. Hospital Course This is a pleasant 69 years old female has past medical history significant for diabetes mellitus, hypertension, hyperlipidemia, coronary artery disease, chronic kidney disease, heart failure, chronic hypoxic respiratory failure with oxygen use. Patient comes into the hospital from home with complaints of not feeling well and needing increased oxygen requirements from 3 to 4 L. She also felt very weak. She has been short of breath and lethargic for the last month as well as cough with phlegm. She has no specific GI or urinary symptoms. No headache dizziness weakness or numbness. She has not had any nausea vomiting or diarrhea. She does feel constipated but has since had a bowel movement. She was recently admitted to the hospital for an acute GI bleed and transferred to [facility] she received 5 units of blood total during that hospital stay and has been maintained on oral ferrous sulfate twice daily since. Patient had a hemoglobin of 8.9 on admission. Creatinine of 1.5. Troponin level was negative her proBNP was elevated at 3830. Her chest x-ray shows cardiomegaly with bilateral vascular congestion. Patient was started on IV Lasix twice daily admitted to the hospital with a cardiac consultation. Patient has been diuresed. She has been transitioned to bumex twice daily as well as started on Entresto half tablet twice daily. Patient was also started on Farxiga. As well as continues on Aldactone 12.5 mg daily. She is optimized on cardiac medications. Cardiology had cleared her for discharge. She was reporting some shortness of breath yesterday as well as some left-sided back pain which is resolved at this time her D-dimer was found to be elevated as part of the workup for the left-sided back pain and it was elevated at 7.[address] angiography does not reveal any pulmonary embolism and her lower extremity venous Doppler was negative for acute DVT bilaterally. Patient's renal function has improved down to a BUN of 41 and a creatinine of 1.19. Her lungs are clear. She will be discharged to [facility] on the [place] for subacute rehabilitation on discharge. Please see medication reconciliation for a list of current medications. Thank you for allowing us to participate in the care of this patient. The impression and plan of care has been dictated by Ebonie Mark, Nurse Practitioner as directed. Dr. Pankaj MD I have performed a history and physical examination and medical decision making of this patient, discussed the same with the dictator, and agree with the dictators assessment and plan as written, documented as a scribe. Based on total visit time, I have performed more than 50% of this visit. Patient Condition at Discharge: Stable Plan - Discharge Summary Discharge Rx Participant: Yes New Discharge Prescriptions: New Calcium Carbonate [Tums] 500 mg PO QID PRN tab PRN Reason: Heartburn ALPRAZolam [Xanax] 1 mg PO TID PRN #6 tab PRN Reason: Anxiety Spironolactone [Aldactone] 12.5 mg PO DAILY tab Bumetanide [BUMEX] 1 mg PO BID@0900,1600 tab Sacubitril/Valsartan [Entresto 24 mg-26 mg Tablet] 0.5 each PO BID tab Dapagliflozin Propanediol [Farxiga] 10 mg PO DAILY tab Ferrous Sulfate [Iron (65 MG Elemental)] 325 mg PO BID-W/MEALS #60 tab Continue Clopidogrel [Plavix] 75 mg PO DAILY traZODone HCL [Desyrel] 200 mg PO HS Insulin Lispro [humaLOG Kwikpen] See Protocol SQ ACHS Aspirin 81 mg PO DAILY #30 tab Acetaminophen Tab [Tylenol] 650 mg PO Q4H PRN PRN Reason: Pain Atorvastatin [Lipitor] 80 mg PO DAILY Cyanocobalamin (Vitamin B-12) [Vitamin B-12] 1,000 mcg PO DAILY Ondansetron [Zofran] 4 mg PO DIRECTED PRN PRN Reason: Nausea Sennosides-Docusate Sodium [Senokot-S] 1 tab PO AC-BID Levothyroxine Sodium 75 mcg PO AC-BRKFST #30 cap Insulin Lispro [humaLOG Kwikpen] 22 units SQ AC-BID@1200,1800 #0 Insulin Glargine,Hum.rec.anlog [Lantus Solostar Pen] 30 units SQ HS@1800 DULoxetine HCL [Cymbalta] 60 mg PO BID Albuterol Sulfate [Ventolin HFA] 2 puff INHALATION RT-Q6H PRN PRN Reason: Shortness Of Breath methocarbamoL [Robaxin-750] 750 mg PO QID PRN PRN Reason: Muscle Spasm Nitroglycerin Sl Tabs [Nitrostat] 0.4 mg SL Q5M PRN PRN Reason: Chest Pain polyethylene glycoL 3350 [Miralax] 17 gm PO BID PRN PRN Reason: Constipation Levothyroxine Sodium 200 mcg PO AC-BRKFST #30 tab Colchicine [Colcrys] 0.6 mg PO BID #60 each Mag Hydrox/Al Hydrox/Simeth [Maalox] 30 ml PO Q4HR PRN ml PRN Reason: Gi Upset Pantoprazole [Protonix] 40 mg PO AC-BRKFST #30 tab Insulin Lispro [humaLOG Kwikpen] 15 units SQ AC-BRKFST #0 Metoprolol Tartrate [Lopressor] 12.5 mg PO BID oxyCODONE HCL [oxyCODONE HCL (IR)] 10 mg PO TID #6 tab Discontinued Furosemide [Lasix] 40 mg PO DAILY #30 tab Spironolactone [Aldactone] 25 mg PO DAILY #30 tab Losartan [Cozaar] 25 mg PO DAILY #30 tab ALPRAZolam [Xanax] 2 mg PO TID Discharge Medication List Clopidogrel [Plavix] 75 mg PO DAILY 07/07/19 [History] traZODone HCL [Desyrel] 200 mg PO HS 07/07/19 [History] Insulin Glargine,Hum.rec.anlog [Lantus Solostar Pen] 30 units SQ HS@1800 06/09/21 [History] Insulin Lispro [humaLOG Kwikpen] See Protocol SQ ACHS 09/21/23 [History] DULoxetine HCL [Cymbalta] 60 mg PO BID 07/15/24 [History] Aspirin 81 mg PO DAILY #30 tab 07/25/24 [Rx] Acetaminophen Tab [Tylenol] 650 mg PO Q4H PRN 12/13/24 [History] Albuterol Sulfate [Ventolin HFA] 2 puff INHALATION RT-Q6H PRN 12/13/24 [History] Atorvastatin [Lipitor] 80 mg PO DAILY 12/13/24 [History] Cyanocobalamin (Vitamin B-12) [Vitamin B-12] 1,000 mcg PO DAILY 12/13/24 [History] Nitroglycerin Sl Tabs [Nitrostat] 0.4 mg SL Q5M PRN 12/13/24 [History] Ondansetron [Zofran] 4 mg PO DIRECTED PRN 12/13/24 [History] Sennosides-Docusate Sodium [Senokot-S] 1 tab PO AC-BID 12/13/24 [History] methocarbamoL [Robaxin-750] 750 mg PO QID PRN 12/13/24 [History] polyethylene glycoL 3350 [Miralax] 17 gm PO BID PRN 12/13/24 [History] Levothyroxine Sodium 75 mcg PO AC-BRKFST #30 cap 12/15/24 [Rx] Levothyroxine Sodium 200 mcg PO AC-BRKFST #30 tab 12/15/24 [Rx] Colchicine [Colcrys] 0.6 mg PO BID #60 each 12/22/24 [Rx] Insulin Lispro [humaLOG Kwikpen] 15 units SQ AC-BRKFST #0 12/22/24 [Rx] Insulin Lispro [humaLOG Kwikpen] 22 units SQ AC-BID@1200,1800 #0 12/22/24 [Rx] Mag Hydrox/Al Hydrox/Simeth [Maalox] 30 ml PO Q4HR PRN ml 12/22/24 [Rx] Pantoprazole [Protonix] 40 mg PO AC-BRKFST #30 tab 12/22/24 [Rx] Metoprolol Tartrate [Lopressor] 12.5 mg PO BID 01/03/25 [History] ALPRAZolam [Xanax] 1 mg PO TID PRN #6 tab 01/07/25 [Rx] Bumetanide [BUMEX] 1 mg PO BID@0900,1600 tab 01/07/25 [Rx] Calcium Carbonate [Tums] 500 mg PO QID PRN tab 01/07/25 [Rx] Dapagliflozin Propanediol [Farxiga] 10 mg PO DAILY tab 01/07/25 [Rx] Ferrous Sulfate [Iron (65 MG Elemental)] 325 mg PO BID-W/MEALS #60 tab 01/07/25 [Rx] Sacubitril/Valsartan [Entresto 24 mg-26 mg Tablet] 0.5 each PO BID tab 01/07/25 [Rx] Spironolactone [Aldactone] 12.5 mg PO DAILY tab 01/07/25 [Rx] oxyCODONE HCL [oxyCODONE HCL (IR)] 10 mg PO TID #6 tab 01/07/25 [Rx] Follow up Appointment(s)/Referral(s): Miguel Sy MD [Primary Care Provider] - 1-2 days Diane Babcock MD [STAFF PHYSICIAN] - [facility] [NON-STAFF] - As Needed Ambulatory/Diagnostic Orders: Basic Metabolic Panel [LAB.AMB] Time Frame: 3 Days, Location: None Selected Discharge Disposition: TRANSFER TO SNF/ECF
[2025-01-07 17:17] LABS: Glucose,Whole Blood 353 mg/dL (70-110)
--- NOTE | 2025-01-07 19:59 | US ---
EXAMINATION TYPE: US venous doppler duplex LE BI DATE OF EXAM: 01/07/2025 10:54 AM COMPARISON: NONE CLINICAL INDICATION: Female, 69 years old with history of elevated d dimer; Hx DVT lt leg, Factor V, Pain TECHNIQUE: The lower extremity deep venous system is examined utilizing real time linear array sonog macie with graded compression, color doppler sonography, and spectral doppler. SIDE PERFORMED: Bilateral FINDINGS: VESSELS IMAGED: Common Femoral Vein Deep Femoral Vein Greater Saphenous Vein * Femoral Vein Popliteal Vein Small Saphenous Vein * Proximal Calf Veins (* superficial vessels) Right Leg: Negative for DVT, Color Doppler imaging shows patency of the vessels. Spectral waveforms are within normal limits. Left Leg: Negative for DVT, Color Doppler imaging shows patency of the vessels. Spectral waveforms a re within normal limits. Exam limited by edema, habitus and patient pain. Unable to obtain compression images at the bilateral mid and distal femoral vein. non-visualization of the proximal calf veins. IMPRESSION: 1. Bilateral lower extremity ultrasound negative for deep venous thrombosis. 2. There is some limitation on the examination. [facility], , 01/07/2025 7:57 PM
[2025-01-07 20:25] LABS: Glucose,Whole Blood 323 mg/dL (70-110)
[2025-01-07] MEDS: INSULIN GLARGINE (LANTUS) 100 UNIT/ML SYR SQ SCH (20:59)
[2025-01-08 06:32] LABS: Glucose,Whole Blood 146 mg/dL (70-110)
[2025-01-08 08:39] VITALS: BP 111/71; PULSE 92; RESP 17; TEMP 97.6
[2025-01-08 09:12] LABS: BUN/Creat Ratio 21.31 Ratio (12.00-20.00); Blood Urea Nitrogen 27.7 mg/dL (9.0-27.0); Calcium 8.4 mg/dL (8.7-10.3); Carbon Dioxide 34.9 mmol/L (21.6-31.8); Chloride 94 mmol/L (96-109); Glucose 117 mg/dL (70-110); Potassium 4.1 mmol/L (3.5-5.5); Sodium 140 mmol/L (135-145)
--- NOTE | 2025-01-08 11:40 | P.PN ---
Subjective HISTORY OF PRESENT ILLNESS: This is 69-year-old female patient of Dr. JOHS Babcock with past medical history of coronary artery disease status post multivessel PCI, hypertension, hyperlipidemia, diabetes mellitus type 2, remote history of tobacco use and dependence, poor functional capacity, history of GI bleed requiring rectal tamponade, chronic hypoxic respiratory failure on home O2 at 3 L. We have been asked to evaluate the patient for CHF. Patient has had several recent hospitalization most recently December 17 through December 23. During that hos pitalization, patient was seen by cardiology due to a moderate-sized pericardial effusion without tamponade. Patient states that she has not been feeling well since she went home. She feels very tired and fatigued but that has been going on for at least the last few months. She denies any fever or chills. She states she has a little bit of lightheadedness or dizziness. Patient states that she has been taking all of her medications as directed including colchicine. She states her organizes her medications. She does complain of increased lower extremity edema and lymphedema. She does not feel that she has been eating and drinking very much because she has been nauseated. She did have some diarrhea that went away. Blood pressure 97/52, pulse ox 98% on 3 L nasal cannula, heart rate in the 70s. Patient is afebrile. -EKG: Sinus rhythm, low voltage. -Chest x-ray: Cardiomegaly, pulmonary vascular congestion and small bilateral pleural effusions. -Laboratory studies: WBC 5.5, hemoglobin 8.9. Electrolytes are normal. BUN 46 and creatinine 1.59. Troponin negative x 1. proBNP 3830. -Home cardiac medications: Aspirin 81 mg daily, atorvastatin 80 mg daily, Plavix 75 mg daily, colchicine 0.6 mg twice daily, Lasix 40 mg daily, losartan 25 mg daily, Lopressor 12.5 mg twice daily, Nitrostat as needed, spironolactone 25 mg daily. -Limited echocardiogram performed 12/22/2024 revealed normal LV size and function. Mild to moderate pericardial effusion without tamponade physiology. -Cardiac catheterization history 10/29/2024: LAD stented in July was widely patent. Circumflex with previous mid stent jailed OM with good flow. RCA with mid lesion and diffuse disease with heavy calcifications. PCI of the RCA with 3 stents. 01/05/2025 Patient examined this morning at bedside. Patient currently denies chest pain or pressure. She denies shortness of breath. 2D echo remains pending. Patient's blood pressure is improved at the time of examination. 01/06/2025 Patient examined this morning at bedside. Patient currently denies chest pain or pressure. She denies shortness of breath. Echocardiogram completed revealing ejection fraction 40% with anterior apical hypokinesia, small circumferential pericardial effusion, no tamponade. Vital signs are stable. 01/07/2025 Patient examined this morning at the bedside. Patient currently denies chest pain or pressure. She denies shortness of breath. She remains on IV Lasix. Kidney function stable. Blood pressure 116/67. 01/08/2025 Patient examined at bedside. Patient currently denies chest pain or pressure. She denies shortness of breath. Vitals are stable. PHYSICAL EXAM: VITAL SIGNS: Reviewed. GENERAL: Well-developed in no acute distress. NECK: Supple. No JVD or thyromegaly LUNGS: Respirations even and unlabored. Lungs with crackles bilaterally, left greater than right ABDOMEN: distended HEART: Regular rate and rhythm. S1 and S2 heard. EXTREMITIES: Normal range of motion. No clubbing or cyanosis. Peripheral pulses intact. No lower extremity edema ASSESSMENT: Acute kidney injury Nausea and decreased appetite History of pericardial effusion, December 2024 Coronary artery disease with previous PCI, most recently to mid proximal and ostial RCA with 3 stents, October 2024 Ischemic cardiomyopathy, 45% Hypertension Hyperlipidemia Diabetes Pleural effusion status post left thoracentesis 12/21 Chronic hypoxic respiratory failure on home O2 at 3 L PLAN: Continue additional cardiac medications including Entresto, Bumex, Aldactone, aspirin, Lipitor, Plavix, Farxiga, metoprolol Increase activity as tolerated. Recommend ECF at discharge. Social work following. Patient is stable for discharge from a cardiac standpoint We will sign off. Please reconsult if needed. Nurse practitioner note has been reviewed by physician. Signing provider agrees with the documented findings, assessment, and plan of care documented by DENTAL SERVICE CHIEF as a scribe. Objective - Vital Signs Vital signs: Vital Signs Temp 97.6 F 01/08/25 08:05 Pulse 92 01/08/25 08:05 Resp 17 01/08/25 08:05 BP 111/71 01/08/25 08:05 Pulse Ox 98 01/08/25 08:05 FiO2 Intake & Output 01/07/25 01/08/25 01/08/25 18:59 06:59 18:59 Intake Total 3026 840 Output Total 750 250 Balance 3026 -750 590 Weight 73 kg Intake: Oral 3026 840 Output: Urine 750 250 Other: Voiding Method Diaper Diaper Diaper External Catheter External Catheter External Catheter - Labs CBC & Chem 7: 01/07/25 04:32 01/08/25 04:38 Labs: Abnormal Lab Results - Last 24 Hours (Table) 01/07/25 01/07/25 01/07/25 Range/Units 12:12 17:16 20:24 Chloride (96-109) mmol/L Carbon Dioxide (21.6-31.8) mmol/L BUN (9.0-27.0) mg/dL Est GFR (CKD-EPI) (>=60) BUN/Creatinine Ratio (12.00-20.00) Ratio Glucose (70-110) mg/dL POC Glucose (mg/dL) 383 H 353 H 323 H (70-110) mg/dL Calcium (8.7-10.3) mg/dL 01/08/25 01/08/25 Range/Units 04:38 06:31 Chloride 94 L (96-109) mmol/L Carbon Dioxide 34.9 H (21.6-31.8) mmol/L BUN 27.7 H (9.0-27.0) mg/dL Est GFR (CKD-EPI) 59 L (>=60) BUN/Creatinine Ratio 21.31 H (12.00-20.00) Ratio Glucose 117 H (70-110) mg/dL POC Glucose (mg/dL) 146 H (70-110) mg/dL Calcium 8.4 L (8.7-10.3) mg/dL
[2025-01-08 12:58] LABS: Glucose,Whole Blood 252 mg/dL (70-110)
--- NOTE | 2025-01-08 13:30 | P.DS ---
Providers Date of admission: 01/05/25 07:49 Attending physician: Francisco Vela Primary care physician: Miguel Sy Hospital Course: Final Diagnosis Acute on chronic congestive heart failure, systolic with ejection fraction 45 to 50% Acute kidney injury, cardiorenal syndrome Generalized weakness Respiratory acidosis Chronic kidney disease stage III Obesity with BMI of 30 Acute on chronic hypoxic respiratory failure Diabetes mellitus Hypertension Hyperlipidemia Coronary artery disease Discharge Disposition \Patient stable medically for discharge to [facility]. Patient has been optimized on her cardiac medications. She will repeat blood work in 2 to 3 days to monitor her electrolytes and renal function. Patient to follow up closely with cardiology on discharge. Patient asking about resuming primidone because of her tremors states she was taken off of it 5 months ago while at rehab. Would recommend her PCP to follow up with this on discharge. Hospital Course This is a pleasant 69 years old female has past medical history significant for diabetes mellitus, hypertension, hyperlipidemia, coronary artery disease, chronic kidney disease, heart failure, chronic hypoxic respiratory failure with oxygen use. Patient comes into the hospital from home with complaints of not feeling well and needing increased oxygen requirements from 3 to 4 L. She also felt very weak. She has been short of breath and lethargic for the last month as well as cough with phlegm. She has no specific GI or urinary symptoms. No headache dizziness weakness or numbness. She has not had any nausea vomiting or diarrhea. She does feel constipated but has since had a bowel movement. She was recently admitted to the hospital for an acute GI bleed and transferred to [facility] she received 5 units of blood total during that hospital stay and has been maintained on oral ferrous sulfate twice daily since. Patient had a hemoglobin of 8.9 on admission. Creatinine of 1.5. Troponin level was negative her proBNP was elevated at 3830. Her chest x-ray shows cardiomegaly with bilateral vascular congestion. Patient was started on IV Lasix twice daily admitted to the hospital with a cardiac consultation. Patient has been diuresed. She has been transitioned to bumex twice daily as well as started on Entresto half tablet twice daily. Patient was also started on Farxiga. As well as continues on Aldactone 12.5 mg daily. She is optimized on cardiac medications. Cardiology had cleared her for discharge. She was reporting some shortness of breath yesterday as well as some left-sided back pain which is resolved at this time her D-dimer was found to be elevated as part of the workup for the left-sided back pain and it was elevated at 7.[address] angiography does not reveal any pulmonary embolism and her lower extremity venous Doppler was negative for acute DVT bilaterally. Patient's renal function has improved down to a BUN of 41 and a creatinine of 1.19. Her lungs are clear. She will be discharged to [facility] on the [place] for subacute rehabilitation on discharge. Please see medication reconciliation for a list of current medications. Thank you for allowing us to participate in the care of this patient. The impression and plan of care has been dictated by Ebonie Mark, Nurse Practitioner as directed. Dr. Pankaj MD I have performed a history and physical examination and medical decision making of this patient, discussed the same with the dictator, and agree with the dictators assessment and plan as written, documented as a scribe. Based on total visit time, I have performed more than 50% of this visit. Patient Condition at Discharge: Stable Plan - Discharge Summary Discharge Rx Participant: Yes New Discharge Prescriptions: New Calcium Carbonate [Tums] 500 mg PO QID PRN tab PRN Reason: Heartburn ALPRAZolam [Xanax] 1 mg PO TID PRN #6 tab PRN Reason: Anxiety Spironolactone [Aldactone] 12.5 mg PO DAILY tab Bumetanide [BUMEX] 1 mg PO BID@0900,1600 tab Sacubitril/Valsartan [Entresto 24 mg-26 mg Tablet] 0.5 each PO BID tab Dapagliflozin Propanediol [Farxiga] 10 mg PO DAILY tab Ferrous Sulfate [Iron (65 MG Elemental)] 325 mg PO BID-W/MEALS #60 tab Continue Clopidogrel [Plavix] 75 mg PO DAILY traZODone HCL [Desyrel] 200 mg PO HS Insulin Lispro [humaLOG Kwikpen] See Protocol SQ ACHS Aspirin 81 mg PO DAILY #30 tab Acetaminophen Tab [Tylenol] 650 mg PO Q4H PRN PRN Reason: Pain Atorvastatin [Lipitor] 80 mg PO DAILY Cyanocobalamin (Vitamin B-12) [Vitamin B-12] 1,000 mcg PO DAILY Ondansetron [Zofran] 4 mg PO DIRECTED PRN PRN Reason: Nausea Sennosides-Docusate Sodium [Senokot-S] 1 tab PO AC-BID Levothyroxine Sodium 75 mcg PO AC-BRKFST #30 cap Insulin Lispro [humaLOG Kwikpen] 22 units SQ AC-BID@1200,1800 #0 Insulin Glargine,Hum.rec.anlog [Lantus Solostar Pen] 30 units SQ HS@1800 DULoxetine HCL [Cymbalta] 60 mg PO BID Albuterol Sulfate [Ventolin HFA] 2 puff INHALATION RT-Q6H PRN PRN Reason: Shortness Of Breath methocarbamoL [Robaxin-750] 750 mg PO QID PRN PRN Reason: Muscle Spasm Nitroglycerin Sl Tabs [Nitrostat] 0.4 mg SL Q5M PRN PRN Reason: Chest Pain polyethylene glycoL 3350 [Miralax] 17 gm PO BID PRN PRN Reason: Constipation Levothyroxine Sodium 200 mcg PO AC-BRKFST #30 tab Colchicine [Colcrys] 0.6 mg PO BID #60 each Mag Hydrox/Al Hydrox/Simeth [Maalox] 30 ml PO Q4HR PRN ml PRN Reason: Gi Upset Pantoprazole [Protonix] 40 mg PO AC-BRKFST #30 tab Insulin Lispro [humaLOG Kwikpen] 15 units SQ AC-BRKFST #0 Metoprolol Tartrate [Lopressor] 12.5 mg PO BID oxyCODONE HCL [oxyCODONE HCL (IR)] 10 mg PO TID #6 tab Discontinued Furosemide [Lasix] 40 mg PO DAILY #30 tab Spironolactone [Aldactone] 25 mg PO DAILY #30 tab Losartan [Cozaar] 25 mg PO DAILY #30 tab ALPRAZolam [Xanax] 2 mg PO TID Discharge Medication List Clopidogrel [Plavix] 75 mg PO DAILY 07/07/19 [History] traZODone HCL [Desyrel] 200 mg PO HS 07/07/19 [History] Insulin Glargine,Hum.rec.anlog [Lantus Solostar Pen] 30 units SQ HS@1800 06/09/21 [History] Insulin Lispro [humaLOG Kwikpen] See Protocol SQ ACHS 09/21/23 [History] DULoxetine HCL [Cymbalta] 60 mg PO BID 07/15/24 [History] Aspirin 81 mg PO DAILY #30 tab 07/25/24 [Rx] Acetaminophen Tab [Tylenol] 650 mg PO Q4H PRN 12/13/24 [History] Albuterol Sulfate [Ventolin HFA] 2 puff INHALATION RT-Q6H PRN 12/13/24 [History] Atorvastatin [Lipitor] 80 mg PO DAILY 12/13/24 [History] Cyanocobalamin (Vitamin B-12) [Vitamin B-12] 1,000 mcg PO DAILY 12/13/24 [History] Nitroglycerin Sl Tabs [Nitrostat] 0.4 mg SL Q5M PRN 12/13/24 [History] Ondansetron [Zofran] 4 mg PO DIRECTED PRN 12/13/24 [History] Sennosides-Docusate Sodium [Senokot-S] 1 tab PO AC-BID 12/13/24 [History] methocarbamoL [Robaxin-750] 750 mg PO QID PRN 12/13/24 [History] polyethylene glycoL 3350 [Miralax] 17 gm PO BID PRN 12/13/24 [History] Levothyroxine Sodium 75 mcg PO AC-BRKFST #30 cap 12/15/24 [Rx] Levothyroxine Sodium 200 mcg PO AC-BRKFST #30 tab 12/15/24 [Rx] Colchicine [Colcrys] 0.6 mg PO BID #60 each 12/22/24 [Rx] Insulin Lispro [humaLOG Kwikpen] 15 units SQ AC-BRKFST #0 12/22/24 [Rx] Insulin Lispro [humaLOG Kwikpen] 22 units SQ AC-BID@1200,1800 #0 12/22/24 [Rx] Mag Hydrox/Al Hydrox/Simeth [Maalox] 30 ml PO Q4HR PRN ml 12/22/24 [Rx] Pantoprazole [Protonix] 40 mg PO AC-BRKFST #30 tab 12/22/24 [Rx] Metoprolol Tartrate [Lopressor] 12.5 mg PO BID 01/03/25 [History] ALPRAZolam [Xanax] 1 mg PO TID PRN #6 tab 01/07/25 [Rx] Bumetanide [BUMEX] 1 mg PO BID@0900,1600 tab 01/07/25 [Rx] Calcium Carbonate [Tums] 500 mg PO QID PRN tab 01/07/25 [Rx] Dapagliflozin Propanediol [Farxiga] 10 mg PO DAILY tab 01/07/25 [Rx] Ferrous Sulfate [Iron (65 MG Elemental)] 325 mg PO BID-W/MEALS #60 tab 01/07/25 [Rx] Sacubitril/Valsartan [Entresto 24 mg-26 mg Tablet] 0.5 each PO BID tab 01/07/25 [Rx] Spironolactone [Aldactone] 12.5 mg PO DAILY tab 01/07/25 [Rx] oxyCODONE HCL [oxyCODONE HCL (IR)] 10 mg PO TID #6 tab 01/07/25 [Rx] Follow up Appointment(s)/Referral(s): Miguel Sy MD [Primary Care Provider] - 1-2 days Diane Babcock MD [STAFF PHYSICIAN] - [facility] [NON-STAFF] - As Needed Ambulatory/Diagnostic Orders: Basic Metabolic Panel [LAB.AMB] Time Frame: 3 Days, Location: None Selected Patient Instructions/Handouts: Heart Failure (DC), Syncope (DC) Activity/Diet/Wound Care/Special Instructions: Per Dr. Knight, obtain CBC, BMP, and proBNP in 1 week at ECF Discharge Disposition: TRANSFER TO SNF/ECF
== END 2025-01-08 13:55 | DRG 291 ==
LOC: EC 13:15 → 6NMEDSUR 15:20 → OBSVTOIN 01-05 07:49
PROVIDERS: ADMIT Hospitalist; ATTEND Hospitalist
DX: I13.0 Hypertensive heart and chronic kidney disease with heart failure and stage 1 through stage 4 chronic kidney disease, or unspecified chronic kidney disease (principal); I50.23 Acute on chronic systolic (congestive) heart failure; J96.21 Acute and chronic respiratory failure with hypoxia; I31.39 Other pericardial effusion (noninflammatory); E87.29 Other acidosis; N17.9 Acute kidney failure, unspecified; D68.51 Activated protein C resistance; E11.22 Type 2 diabetes mellitus with diabetic chronic kidney disease; E03.9 Hypothyroidism, unspecified; N18.30 Chronic kidney disease, stage 3 unspecified; E66.9 Obesity, unspecified; F32.A Depression, unspecified; E11.51 Type 2 diabetes mellitus with diabetic peripheral angiopathy without gangrene; Z79.4 Long term (current) use of insulin; I25.5 Ischemic cardiomyopathy; I25.10 Atherosclerotic heart disease of native coronary artery without angina pectoris; Z68.30 Body mass index [BMI] 30.0-30.9, adult; E78.5 Hyperlipidemia, unspecified; F41.0 Panic disorder [episodic paroxysmal anxiety]; I25.2 Old myocardial infarction; K58.0 Irritable bowel syndrome with diarrhea; M19.90 Unspecified osteoarthritis, unspecified site; G89.29 Other chronic pain; Z87.440 Personal history of urinary (tract) infections; Z86.711 Personal history of pulmonary embolism; Z79.890 Hormone replacement therapy; Z79.02 Long term (current) use of antithrombotics/antiplatelets; Z79.82 Long term (current) use of aspirin; Z79.899 Other long term (current) drug therapy; Z86.718 Personal history of other venous thrombosis and embolism; Z87.891 Personal history of nicotine dependence; Z90.710 Acquired absence of both cervix and uterus; Z85.828 Personal history of other malignant neoplasm of skin; Z91.81 History of falling; Z99.81 Dependence on supplemental oxygen; Z90.49 Acquired absence of other specified parts of digestive tract; Z87.19 Personal history of other diseases of the digestive system; Z98.42 Cataract extraction status, left eye; Z98.41 Cataract extraction status, right eye
CPT/HCPCS: 36415; 71045; 71275; 80048; 80053; 82803; 83036; 83605; 83735; 83880; 84484; 85025; 85379; 85610; 85730; 93005; 93308; 93970; 96374; 99285

== ENCOUNTER 2025-01-15 22:52 | Inpatient (IN) | payer MEDICARE, BC ==
--- NOTE | 2025-01-15 23:07 | ED ---
General Adult HPI - General Chief complaint: Shortness of Breath Stated complaint: MADYSON Time Seen by Provider: 01/15/25 22:58 Source: patient, EMS, RN notes reviewed, old records reviewed Mode of arrival: EMS Limitations: altered mental status - History of Present Illness Initial comments: 69-year-old female presenting for dyspnea, hypotension. History of CHF, chronic kidney disease, cardiorenal syndrome with recent admission to the hospital and subsequent discharged to [facility] for which she has been out for approximately 1 week. Patient was noted to be lethargic and hypoxic and hypotensive. Patient is able to answer very simple questions. She is denying central chest pain or abdominal pain. Unknown if this patient has had a fever. No reported nausea vomiting or diarrhea. - Related Data Home Medications Medication Instructions Recorded Confirmed Clopidogrel [Plavix] 75 mg PO DAILY 07/07/19 01/03/25 traZODone HCL [Desyrel] 200 mg PO HS 07/07/19 01/03/25 Insulin Glargine,Hum.rec.anlog 30 units SQ HS@1800 06/09/21 01/03/25 [Lantus Solostar Pen] Insulin Lispro [humaLOG Kwikpen] See Protocol SQ ACHS 09/21/23 01/03/25 DULoxetine HCL [Cymbalta] 60 mg PO BID 07/15/24 01/03/25 Acetaminophen Tab [Tylenol] 650 mg PO Q4H PRN 12/13/24 01/03/25 Albuterol Sulfate [Ventolin HFA] 2 puff INHALATION RT-Q6H PRN 12/13/24 01/03/25 Atorvastatin [Lipitor] 80 mg PO DAILY 12/13/24 01/03/25 Cyanocobalamin (Vitamin B-12) 1,000 mcg PO DAILY 12/13/24 01/03/25 [Vitamin B-12] Nitroglycerin Sl Tabs [Nitrostat] 0.4 mg SL Q5M PRN 12/13/24 01/03/25 Ondansetron [Zofran] 4 mg PO DIRECTED PRN 12/13/24 01/03/25 Sennosides-Docusate Sodium 1 tab PO AC-BID 12/13/24 01/03/25 [Senokot-S] methocarbamoL [Robaxin-750] 750 mg PO QID PRN 12/13/24 01/03/25 polyethylene glycoL 3350 [Miralax] 17 gm PO BID PRN 12/13/24 01/03/25 Metoprolol Tartrate [Lopressor] 12.5 mg PO BID 01/03/25 01/03/25 Previous Rx's Medication Instructions Recorded Aspirin 81 mg PO DAILY #30 tab 07/25/24 Levothyroxine Sodium 75 mcg PO AC-BRKFST #30 cap 12/15/24 Levothyroxine Sodium 200 mcg PO AC-BRKFST #30 tab 12/15/24 Colchicine [Colcrys] 0.6 mg PO BID #60 each 12/22/24 Insulin Lispro [humaLOG Kwikpen] 15 units SQ AC-BRKFST #0 12/22/24 Insulin Lispro [humaLOG Kwikpen] 22 units SQ AC-BID@1200,1800 #0 12/22/24 Mag Hydrox/Al Hydrox/Simeth 30 ml PO Q4HR PRN ml 12/22/24 [Maalox] Pantoprazole [Protonix] 40 mg PO AC-BRKFST #30 tab 12/22/24 ALPRAZolam [Xanax] 1 mg PO TID PRN #6 tab 01/07/25 Bumetanide [BUMEX] 1 mg PO BID@0900,1600 tab 01/07/25 Calcium Carbonate [Tums] 500 mg PO QID PRN tab 01/07/25 Dapagliflozin Propanediol [Farxiga] 10 mg PO DAILY tab 01/07/25 Ferrous Sulfate [Iron (65 MG 325 mg PO BID-W/MEALS #60 tab 01/07/25 Elemental)] Sacubitril/Valsartan [Entresto 24 0.5 each PO BID tab 01/07/25 mg-26 mg Tablet] Spironolactone [Aldactone] 12.5 mg PO DAILY tab 01/07/25 oxyCODONE HCL [oxyCODONE HCL (IR)] 10 mg PO TID #6 tab 01/07/25 Allergies Allergy/AdvReac Type Severity Reaction Status Date / Time Iodinated Contrast Media Allergy Rash/Hives Verified 01/03/25 17:18 Iodine and Iodide Containing Allergy Rash/Hives Verified 01/03/25 17:18 Produc liraglutide [From Saxenda] AdvReac Unknown Nausea & Verified 01/03/25 17:18 Vomiting NSAIDS (Non-Steroidal AdvReac Unknown Nausea & Verified 01/03/25 17:18 Anti-Inflamma Vomiting aspirin AdvReac Nausea & Verified 01/03/25 17:18 Vomiting with high doses azithromycin AdvReac Vomiting Verified 01/03/25 17:18 naproxen [From Naprosyn] AdvReac Nausea & Verified 01/03/25 17:18 Vomiting Review of Systems ROS Statement: Those systems with pertinent positive or pertinent negative responses have been documented in the HPI. ROS Other: All systems not noted in ROS Statement are negative. Past Medical History Past Medical History: Blood Disorder, Cancer, Diabetes Mellitus, Deep Vein Thrombosis (DVT), GERD/Reflux, Hyperlipidemia, Hypertension, Myocardial Infarction (VA), Neurologic Disorder, Osteoarthritis (OA), Pneumonia, Pulmonary Embolus (PE), Thyroid Disorder Additional Past Medical History / Comment(s): See Dr Babcock's H&P. Factor 5 Leiden, hx DVT L leg, hx PE L lung, hx VA X5, palpitations, IDDM type II, neuropathy bilateral legs/feet, lymphedema L leg, charcot syndrome L foot, chronic low back pain, bilateral sciatica, hx bronchitis, anemia, hypothyroid, constipation, hx UTI, IBS, sinus problems, worsening tremors, hx skin cancer removal, hx pelvic fracture, clausterphobia, hx severe vertigo, poor balance and prone to falls. Moderate pericardial effusion Last Myocardial Infarction Date:: January 2020 History of Any Multi-Drug Resistant Organisms: VRE Date of last positivie culture/infection: 08/24/23 MDRO Source:: Urine Past Surgical History: Appendectomy, Cholecystectomy, Heart Catheterization With Stent, Hernia Repair, Hysterectomy, Tonsillectomy Additional Past Surgical History / Comment(s): Bilateral salpingectomy, bilateral oophorectomy, abdominal hernia surgeries, L foot fracture, bilateral cataract removals, lumbar epidural injections. Past Anesthesia/Blood Transfusion Reactions: No Reported Reaction Additional Past Anesthesia/Blood Transfusion Reaction / Comment(s): Pt has received blood in past without reaction. Date of Last Stent Placement:: January 2020 Past Psychological History: Anxiety, Depression, Panic Disorder Smoking Status: Former smoker Past Alcohol Use History: None Reported Past Drug Use History: None Reported - Past Family History Mother Family Medical History: COPD Additional Family Medical History / Comment(s): Mother was a smoker. Father Family Medical History: Cancer Additional Family Medical History / Comment(s): Lung cancer. Father was a smoker. Son(s) Family Medical History: Deep Vein Thrombosis (DVT) General Exam Limitations: no limitations General appearance: lethargic, in distress Head exam: Present: atraumatic, normocephalic Eye exam: Present: normal appearance, PERRL Respiratory exam: Present: respiratory distress, decreased breath sounds. A bsent: wheezes Cardiovascular Exam: Present: tachycardia, irregular rhythm GI/Abdominal exam: Present: soft. Absent: distended, tenderness, guarding Extremities exam: Absent: calf tenderness Skin exam: Present: pallor Course Vital Signs 01/15/25 01/15/25 01/16/25 22:54 22:59 00:18 Temperature 97.8 F Pulse Rate 101 H 79 Respiratory 24 28 H 22 Rate Blood Pressure 69/39 86/81 O2 Sat by Pulse 98 100 Oximetry 01/16/25 00:34 Temperature Pulse Rate 100 Respiratory 18 Rate Blood Pressure 103/46 O2 Sat by Pulse 96 Oximetry Medical Decision Making - Medical Decision Making Was pt. sent in by a medical professional or institution (, PA, PUBLIC HOUSING INTERVIEWER, urgent care, hospital, or skilled nursing...) When possible be specific @ -No Did you speak to anyone other than the patient for history (EMS, parent, family, police, friend...)? What history was obtained from this source @ -No Did you review nursing and triage notes (agree or disagree)? Why? @ -I reviewed and agree with nursing and triage notes Were old charts reviewed (outside hosp., previous admission, EMS record, old EKG, old radiological studies, urgent care reports/EKG's, skilled nursing records)? Report findings @ -No old charts were reviewed Differential Dyspnea: Coronary syndrome, arrhythmia, tamponade, asthma, COPD, pulmonary embolism, pneumonia, pneumothorax, pulmonary effusion, anaphylaxis, diabetic ketoacidosis, flailed chest, pulmonary contusion, diaphragmatic rupture, anemia, n euromuscular, this is not meant to be an all-inclusive list. EKG interpreted by me (3pts min.). @ -Sinus rhythm rate of 99, low voltage, LA interval 178, QRS duration 96, QTc [address] segment elevation. X-rays interpreted by me (1pt min.). @Chest x-ray showing a left pleural effusion and cardiomegaly. No pneumothorax. CT interpreted by me (1pt min.). @ -None done U/S interpreted by me (1pt. min.). @ -None done What testing was considered but not performed or refused? (CT, X-rays, U/S, lab s)? Why? @ -None What meds were considered but not given or refused? Why? @ -None Did you discuss the management of the patient with other professionals (professionals i.e. DrEvans, PA, PUBLIC HOUSING INTERVIEWER, lab, RT, psych nurse, psych social worker, concrete inspector, teacher, police officer crime prevention, case management coordinator)? Give summary @ -Case discussed with Dr. Vela who will admit Was smoking cessation discussed for >3mins.? @ -No Was critical care preformed (if so, how long)? @Yes, 35 minutes Were there social determinants of health that impacted care today? How? (Homelessness, low income, unemployed, alcoholism, drug addiction, transporta tion, low edu. Level, literacy, decrease access to med. care, [place] [facility], rehab)? @ -No Was there de-escalation of care discussed even if they declined (Discuss DNR or withdrawal of care, Hospice)? DNR status @ -No What co-morbidities impacted this encounter? (DM, HTN, Smoking, COPD, CAD, Cancer, CVA, ARF, Chemo, Hep., AIDS, mental health diagnosis, sleep apnea, morbid obesity)? @ -[Chronic kidney disease, congestive heart failure Was patient admitted / discharged? Hospital course, mention meds given and route, prescriptions, significant lab abnormalities, going to OR and other pertinent info. @69-year-old female presenting with hypotension hypoxia history of CHF, chronic kidney disease. Patient has significant lab abnormalities including anemia, hyponatremia, elevated BUN and creatinine elevated troponin and BMP. She is positive for urinary tract infection and recent culture showed E. coli susceptible to ceftriaxone. Patient given some IV fluid with improvement in blood pressure although aggressive hydration would likely worsen the patient's CHF. Patient will be admitted to internal medicine with pulmonology and cardiology on consult. Undiagnosed new problem with uncertain prognosis? @ -No Drug Therapy requiring intensive monitoring for toxicity (Heparin, Nitro, Insulin, Cardizem)? @ -No Were any procedures done? @ -No Diagnosis/symptom? @ -[UTI, sepsis, CHF, cardiorenal syndrome Acute, or Chronic, or Acute on Chronic? @ -Acute on chronic Uncomplicated (without systemic symptoms) or Complicated (systemic symptoms)? @ -Default Side effects of treatment? @ -No Exacerbation, Progression, or Severe Exacerbation? @ -No Poses a threat to life or bodily function? How? (Chest pain, USA, VA, pneumonia, PE, COPD, DKA, ARF, appy, cholecystitis, CVA, Diverticulitis, Homicidal, Suicidal, threat to staff... and all critical care pts) @ -Yes, sepsis, heart failure, multiorgan failure - Lab Data Result diagrams: 01/15/25 23:03 01/15/25 23:03 Lab Results 01/15/25 01/15/25 01/15/25 Range/Units 23:03 23:03 23:03 WBC 10.59 H (4.50-10.00) 10*3/uL RBC 3.92 L (4.10-5.20) 10*6/uL Hgb 9.5 L (12.0-15.0) g/dL Hct 32.6 L (37.2-46.3) % MCV 83.2 (80.0-97.0) fL MCH 24.2 L (27.0-32.0) pg MCHC 29.1 L (32.0-37.0) g/dL Plt Count 186 (140-440) 10*3/uL MPV 12.3 H (9.5-12.2) fL Immature Gran % (Auto) 0.5 % Neutrophils % 86.8 % Lymphocytes % 5.1 % Monocytes % 7.0 % Eosinophils % 0.3 % Basophils % 0.3 % Immature Gran # 0.05 H (0.00-0.04) 10*3/uL Neutrophils # 9.20 H (1.80-7.70) 10*3/uL Lymphocytes # 0.54 L (0.90-5.00) 10*3/uL Monocytes # 0.74 (0.20-1.00) 10*3/uL Eosinophils # 0.03 L (0.04-0.35) 10*3/uL Basophils # 0.03 (0.00-0.10) 10*3/uL Immature Plt Fraction 9.5 H (1.1-6.1) % PT 12.2 (10.0-12.5) sec INR 1.1 (<1.2) APTT 25.4 (22.0-30.0) sec Sodium 129 L (137-145) mmol/L Potassium 4.3 (3.5-5.1) mmol/L Chloride 91 L (98-107) mmol/L Carbon Dioxide 25 (22-30) mmol/L Anion Gap 13 mmol/L BUN 64 H (7-17) mg/dL Creatinine 2.81 H (0.52-1.04) mg/dL Est GFR (CKD-EPI)AfAm 19 (>60 ml/min/1.73 sqM) Est GFR (CKD-EPI)NonAf 16 (>60 ml/min/1.73 sqM) Glucose 203 H (74-99) mg/dL Plasma Lactic Acid Lloyd (0.7-2.0) mmol/L Calcium 7.3 L (8.4-10.2) mg/dL Magnesium 1.9 (1.6-2.3) mg/dL Total Bilirubin 0.8 (0.2-1.3) mg/dL AST 39 H (14-36) U/L ALT 14 (4-34) U/L Alkaline Phosphatase 232 H (38-126) U/L Troponin I (0.000-0.034) ng/mL NT-Pro-B Natriuret Pep 2170 pg/mL Total Protein 6.5 (6.3-8.2) g/dL Albumin 2.9 L (3.5-5.0) g/dL Urine Color Urine Appearance (Clear) Urine pH (5.0-8.0) Ur Specific Stanley (1.001-1.035) Urine Protein (Negative) Urine Glucose (UA) (Negative) Urine Ketones (Negative) Urine Blood (Negative) Urine Nitrite (Negative) Urine Bilirubin (Negative) Urine Urobilinogen (<2.0) mg/dL Ur Leukocyte Esterase (Negative) Urine RBC (0-5) /hpf Urine WBC (0-5) /hpf Ur Squamous Epith Cells (0-4) /hpf Urine Bacteria (None) /hpf Urine Mucus (None) /hpf 06/12/25 06/12/25 06/13/25 Range/Units 23:03 23:03 00:31 WBC (4.50-10.00) 10*3/uL RBC (4.10-5.20) 10*6/uL Hgb (12.0-15.0) g/dL Hct (37.2-46.3) % MCV (80.0-97.0) fL MCH (27.0-32.0) pg MCHC (32.0-37.0) g/dL Plt Count (140-440) 10*3/uL MPV (9.5-12.2) fL Immature Gran % (Auto) % Neutrophils % % Lymphocytes % % Monocytes % % Eosinophils % % Basophils % % Immature Gran # (0.00-0.04) 10*3/uL Neutrophils # (1.80-7.70) 10*3/uL Lymphocytes # (0.90-5.00) 10*3/uL Monocytes # (0.20-1.00) 10*3/uL Eosinophils # (0.04-0.35) 10*3/uL Basophils # (0.00-0.10) 10*3/uL Immature Plt Fraction (1.1-6.1) % PT (10.0-12.5) sec INR (<1.2) APTT (22.0-30.0) sec Sodium (137-145) mmol/L Potassium (3.5-5.1) mmol/L Chloride (98-107) mmol/L Carbon Dioxide (22-30) mmol/L Anion Gap mmol/L BUN (7-17) mg/dL Creatinine (0.52-1.04) mg/dL Est GFR (CKD-EPI)AfAm (>60 ml/min/1.73 sqM) Est GFR (CKD-EPI)NonAf (>60 ml/min/1.73 sqM) Glucose (74-99) mg/dL Plasma Lactic Acid Lloyd 1.9 (0.7-2.0) mmol/L Calcium (8.4-10.2) mg/dL Magnesium (1.6-2.3) mg/dL Total Bilirubin (0.2-1.3) mg/dL AST (14-36) U/L ALT (4-34) U/L Alkaline Phosphatase (38-126) U/L Troponin I 0.043 H* (0.000-0.034) ng/mL NT-Pro-B Natriuret Pep pg/mL Total Protein (6.3-8.2) g/dL Albumin (3.5-5.0) g/dL Urine Color Yellow Urine Appearance Turbid H (Clear) Urine pH 5.0 (5.0-8.0) Ur Specific Stanley 1.013 (1.001-1.035) Urine Protein Trace H (Negative) Urine Glucose (UA) 3+ H (Negative) Urine Ketones Negative (Negative) Urine Blood Small H (Negative) Urine Nitrite Negative (Negative) Urine Bilirubin Negative (Negative) Urine Urobilinogen 2.0 (<2.0) mg/dL Ur Leukocyte Esterase Large H (Negative) Urine RBC 28 H (0-5) /hpf Urine WBC >182 H (0-5) /hpf Ur Squamous Epith Cells 2 (0-4) /hpf Urine Bacteria Many H (None) /hpf Urine Mucus Few H (None) /hpf Critical Care Time Critical Care Time: Yes Total Critical Care Time: 35 Disposition Clinical Impression: UTI (urinary tract infection), CHF (congestive heart failure) Disposition: ADMITTED IP TO THIS HOSP Condition: Stable Is patient prescribed a controlled substance at d/c from ED?: No Referrals: Miguel Sy MD [Primary Care Provider] - 1-2 days Time of Disposition: 01:48
[2025-01-15 23:28] LABS: Basophils # (A) 0.03 10*3/uL (0.00-0.10); Basophils % (A) 0.3 %; Eosinophils # (A) 0.03 10*3/uL (0.04-0.35); Eosinophils % (A) 0.3 %; HCT 32.6 % (37.2-46.3); HGB 9.5 g/dL (12.0-15.0); Immature Platelet Fraction 9.5 % (1.1-6.1); Lymphocytes # (A) 0.54 10*3/uL (0.90-5.00); Lymphocytes % (A) 5.1 %; MCH 24.2 pg (27.0-32.0); MCHC 29.1 g/dL (32.0-37.0); MCV 83.2 fL (80.0-97.0); Mean Platelet Volume 12.3 fL (9.5-12.2); Monocytes # (A) 0.74 10*3/uL (0.20-1.00); Neutrophils % (A) 86.8 %; Platelet Count 186 10*3/uL (140-440); RBC 3.92 10*6/uL (4.10-5.20); WBC 10.59 10*3/uL (4.50-10.00)
[2025-01-15 23:46] LABS: Anion Gap 13 mmol/L; Blood Urea Nitrogen 64 mg/dL (7-17); Carbon Dioxide 25 mmol/L (22-30); Chloride 91 mmol/L (98-107); Glucose 203 mg/dL (74-99); INR 1.1 (<1.2); Partial Thromboplastin Time 25.4 sec (22.0-30.0); Potassium 4.3 mmol/L (3.5-5.1); Prothrombin Time 12.2 sec (10.0-12.5); Sodium 129 mmol/L (137-145)
[2025-01-15 23:47] LABS: ALT 14 U/L (4-34); AST 39 U/L (14-36); African American GFR (CKD) 19 (>60 ml/min/1.73 sqM); Albumin 2.9 g/dL (3.5-5.0); Alkaline Phosphatase 232 U/L (38-126); Calcium 7.3 mg/dL (8.4-10.2); Magnesium 1.9 mg/dL (1.6-2.3); Non-African American GFR(CKD) 16 (>60 ml/min/1.73 sqM); Total Bilirubin 0.8 mg/dL (0.2-1.3); Total Protein 6.5 g/dL (6.3-8.2)
[2025-01-15 23:55] LABS: NT-Pro-B-Type Natriuretic Pept 2170 pg/mL
[2025-01-16] MEDS: SODIUM CHLORIDE 0.9% 500 ML 500 ML IV ONE ×2 (00:37→08:08)
[2025-01-16 01:06] LABS: Appearance,Urine Turbid (Clear); Bacteria,Urine Many /hpf; Bilirubin,Urine Negative (Negative); Blood,Urine Small (Negative); Color,Urine Yellow; Glucose,Urine (UA) 3+ (Negative); Ketones,Urine Negative (Negative); Leukocyte Esterase,Urine Large (Negative); Mucus,Urine Few /hpf; Nitrite,Urine Negative (Negative); Protein,Urine Trace (Negative); RBC,Urine 28 /hpf (0-5); Specific Gravity,Urine 1.013 (1.001-1.035); Squamous Epithelial Cell,Urine 2 /hpf (0-4); WBC,Urine >182 /hpf (0-5)
--- NOTE | 2025-01-16 01:17 | XR ---
EXAM: XR Chest, 1 View CLINICAL HISTORY: ITS.REASON XR Reason: MADYSON TECHNIQUE: Frontal view of the chest. COMPARISON: No relevant prior studies available. IMPRESSION: Cardiomegaly. Mild left pleural effusion
[2025-01-16] MEDS ORDERED: NALOXONE 0.4 MG/ML 1 ML VIAL IV PRN (01:48)
[2025-01-16] MEDS: ACETAMINOPHEN TAB 325 MG TAB PO PRN (02:28)
[2025-01-16] MEDS: SODIUM CHLORIDE 0.9% 1,000 ML IV SCH (03:04)
[2025-01-16] MEDS: ONDANSETRON 4 MG/2 ML VIAL IVP STA (03:32)
--- NOTE | 2025-01-16 08:35 | P.CRDCN ---
History of Present Illness History of present illness: HISTORY OF PRESENT ILLNESS: This is a 69-year-old female with a past medical history significant for coronary artery disease with multivessel PCI, hypertension, hyperlipidemia, diabetes, former nicotine dependence, and GI bleeding. Patient follows in the office with Dr. Babcock. We have been asked to see the patient in consultation for congestive heart failure. Patient examined at the bedside in the emergency room. Patient was brought to the hospital from [facility] secondary to lethargy and hypotension. Patient currently denies having any chest pain or pressure. She denies any shortness of breath. Patient was found to have acute kidney injury with a creatinine of 2.81. DIAGNOSTICS: - EKG reveals sinus mechanism with baseline artifact - Chest xray mild left pleural effusion - Laboratory data: WBC 10.59. Hemoglobin 9.5. Platelet count 186. Sodium 129. Potassium 4.3. BUN 64. Creatinine 2.81. proBNP 2170. Troponin 0.043. 0.042. 0.045. - Current home cardiac medication list has not been updated at the time of this examination - Most recent echocardiogram obtained in January 2025 revealing ejection fraction 40% with small pericardial effusion - Cardiac catheterization history: October 2024 revealing LAD stented widely patent, circumflex with previous mid LAD stent jailed OM with good flow RCA with mid lesion and diffuse disease with heavy calcifications. PCI to the RCA with 3 stents. REVIEW OF SYSTEMS: At the time of my exam: CONSTITUTIONAL: Denies fever or chills. HEENT: Denies blurred vision, vision changes, or eye pain. Denies hemoptysis CARDIOVASCULAR: Denies chest pain. Denies orthopnea. Denies PND. Denies palpitations RESPIRATORY: Denies shortness of breath. GASTROINTESTINAL: Denies abdominal pain. Denies nausea or vomiting. HEMATOLOGIC: Denies bleeding disorders. GENITOURINARY: Denies any blood in urine. SKIN: Denies pruitis. Denies rash. PHYSICAL EXAM: VITAL SIGNS: Reviewed. GENERAL: Well-developed in no acute distress. HEENT: Head is normocephalic. Pupils are equal, round. Sclerae anicteric. Mucous membranes of the mouth are moist. Neck supple. No JVD or thyromegaly LUNGS: Respirations even and unlabored. Lungs essentially clear to auscultation bilaterally. HEART: Regular rate and rhythm. S1 and S2 heard. ABDOMEN: Soft. Nondistended. Nontender. EXTREMITIES: Normal range of motion. No clubbing or cyanosis. Peripheral pulses intact. No lower extremity edema NEUROLOGIC: Awake and alert. Oriented x 3. ASSESSMENT: Hypotension Acute kidney injury Small pericardial effusion, noted on echo 01/2025 Coronary artery disease with previous stenting, most recently in October 2024 to the RCA with 3 stents Ischemic cardiomyopathy, 40% Chronic heart failure with reduced EF, not in acute exacerbation Hypertension Hyperlipidemia Diabetes Former nicotine dependence History of GI bleeding PLAN: Repeat limited echo to assess pericardial effusion Consult nephrology for acute kidney injury Give 500 cc fluid bolus and then continue maintenance IV fluids Hold nephrotoxic agents Resume dual antiplatelet therapy with aspirin and Plavix Add atorvastatin 80 mg at night Further recommendations pending patient course Nurse practitioner note has been reviewed by physician. Signing provider agrees with the documented findings, assessment, and plan of care documented by [employer] PARALEGAL as a scribe. Past Medical History Past Medical History: Blood Disorder, Cancer, Diabetes Mellitus, Deep Vein Thrombosis (DVT), GERD/Reflux, Hyperlipidemia, Hypertension, Myocardial Infarction ([place]), Neurologic Disorder, Osteoarthritis (OA), Pneumonia, Pulmonary Embolus (PE), Thyroid Disorder Additional Past Medical History / Comment(s): See Dr Babcock's H&P. Factor 5 Leiden, hx DVT L leg, hx PE L lung, hx [place] X5, palpitations, IDDM type II, neuropathy bilateral legs/feet, lymphedema L leg, charcot syndrome L foot, chronic low back pain, bilateral sciatica, hx bronchitis, anemia, hypothyroid, constipation, hx UTI, IBS, sinus problems, worsening tremors, hx skin cancer removal, hx pelvic fracture, clausterphobia, hx severe vertigo, poor balance and prone to falls. Moderate pericardial effusion Last Myocardial Infarction Date:: January 2020 History of Any Multi-Drug Resistant Organisms: VRE Date of last positivie culture/infection: 08/24/23 MDRO Source:: Urine Past Surgical History: Appendectomy, Cholecystectomy, Heart Catheterization With Stent, Hernia Repair, Hysterectomy, Tonsillectomy Additional Past Surgical History / Comment(s): Bilateral salpingectomy, bilateral oophorectomy, abdominal hernia surgeries, L foot fracture, bilateral cataract removals, lumbar epidural injections. Past Anesthesia/Blood Transfusion Reactions: No Reported Reaction Additional Past Anesthesia/Blood Transfusion Reaction / Comment(s): Pt has received blood in past without reaction. Date of Last Stent Placement:: January 2020 Past Psychological History: Anxiety, Depression, Panic Disorder Smoking Status: Former smoker Past Alcohol Use History: None Reported Past Drug Use History: None Reported - Past Family History Mother Family Medical History: COPD Additional Family Medical History / Comment(s): Mother was a smoker. Father Family Medical History: Cancer Additional Family Medical History / Comment(s): Lung cancer. Father was a smoke r. Son(s) Family Medical History: Deep Vein Thrombosis (DVT) Medications and Allergies Home Medications Medication Instructions Recorded Confirmed Type Clopidogrel [Plavix] 75 mg PO DAILY 07/07/19 01/03/25 History traZODone HCL [Desyrel] 200 mg PO HS 07/07/19 01/03/25 History Insulin Glargine,Hum.rec.anlog 30 units SQ HS@1800 06/09/21 01/03/25 History [Lantus Solostar Pen] Insulin Lispro [humaLOG Kwikpen] See Protocol SQ ACHS 09/21/23 01/03/25 History DULoxetine HCL [Cymbalta] 60 mg PO BID 07/15/24 01/03/25 History Aspirin 81 mg PO DAILY #30 tab 07/25/24 01/03/25 Rx Acetaminophen Tab [Tylenol] 650 mg PO Q4H PRN 12/13/24 01/03/25 History Albuterol Sulfate [Ventolin HFA] 2 puff INHALATION RT-Q6H PRN 12/13/24 01/03/25 History Atorvastatin [Lipitor] 80 mg PO DAILY 12/13/24 01/03/25 History Cyanocobalamin (Vitamin B-12) 1,000 mcg PO DAILY 12/13/24 01/03/25 History [Vitamin B-12] Nitroglycerin Sl Tabs [Nitrostat] 0.4 mg SL Q5M PRN 12/13/24 01/03/25 History Ondansetron [Zofran] 4 mg PO DIRECTED PRN 12/13/24 01/03/25 History Sennosides-Docusate Sodium 1 tab PO AC-BID 12/13/24 01/03/25 History [Senokot-S] methocarbamoL [Robaxin-750] 750 mg PO QID PRN 12/13/24 01/03/25 History polyethylene glycoL 3350 [Miralax] 17 gm PO BID PRN 12/13/24 01/03/25 History Levothyroxine Sodium 75 mcg PO AC-BRKFST #30 cap 12/15/24 01/03/25 Rx Levothyroxine Sodium 200 mcg PO AC-BRKFST #30 tab 12/15/24 01/03/25 Rx Colchicine [Colcrys] 0.6 mg PO BID #60 each 12/22/24 01/03/25 Rx Insulin Lispro [humaLOG Kwikpen] 15 units SQ AC-BRKFST #0 12/22/24 01/03/25 Rx Insulin Lispro [humaLOG Kwikpen] 22 units SQ AC-BID@1200,1800 #0 12/22/24 01/03/25 Rx Mag Hydrox/Al Hydrox/Simeth 30 ml PO Q4HR PRN ml 12/22/24 01/03/25 Rx [Maalox] Pantoprazole [Protonix] 40 mg PO AC-BRKFST #30 tab 12/22/24 01/03/25 Rx Metoprolol Tartrate [Lopressor] 12.5 mg PO BID 01/03/25 01/03/25 History ALPRAZolam [Xanax] 1 mg PO TID PRN #6 tab 01/07/25 Rx Bumetanide [BUMEX] 1 mg PO BID@0900,1600 tab 01/07/25 Rx Calcium Carbonate [Tums] 500 mg PO QID PRN tab 01/07/25 Rx Dapagliflozin Propanediol [Farxiga] 10 mg PO DAILY tab 01/07/25 Rx Ferrous Sulfate [Iron (65 MG 325 mg PO BID-W/MEALS #60 tab 01/07/25 Rx Elemental)] Sacubitril/Valsartan [Entresto 24 0.5 each PO BID tab 01/07/25 Rx mg-26 mg Tablet] Spironolactone [Aldactone] 12.5 mg PO DAILY tab 01/07/25 Rx oxyCODONE HCL [oxyCODONE HCL (IR)] 10 mg PO TID #6 tab 01/07/25 Rx Allergies Allergy/AdvReac Type Severity Reaction Status Date / Time Iodinated Contrast Media Allergy Rash/Hives Verified 01/03/25 17:18 Iodine and Iodide Containing Allergy Rash/Hives Verified 01/03/25 17:18 Produc liraglutide [From Saxenda] AdvReac Unknown Nausea & Verified 01/03/25 17:18 Vomiting NSAIDS (Non-Steroidal AdvReac Unknown Nausea & Verified 01/03/25 17:18 Anti-Inflamma Vomiting aspirin AdvReac Nausea & Verified 01/03/25 17:18 Vomiting with high doses azithromycin AdvReac Vomiting Verified 01/03/25 17:18 naproxen [From Naprosyn] AdvReac Nausea & Verified 01/03/25 17:18 Vomiting Physical Exam Vitals: Vital Signs Temp Pulse Resp BP Pulse Ox 01/16/25 06:00 96 18 126/37 94 L 01/16/25 03:30 101 H 18 101/48 95 01/16/25 02:30 83 20 104/72 95 01/16/25 00:34 100 18 103/46 96 01/16/25 00:18 79 22 86/81 100 01/15/25 22:59 28 H 01/15/25 22:54 97.8 F 101 H 24 69/39 98 Intake and Output 01/15/25 01/16/25 01/16/25 22:59 06:59 14:59 Other: Weight 74.843 kg Results 01/15/25 23:03 01/15/25 23:03 Cardiac Enzymes 01/15/25 01/15/25 01/16/25 Range/Units 23:03 23:03 03:48 AST 39 H (14-36) U/L Troponin I 0.043 H* 0.042 H* (0.000-0.034) ng/mL 01/16/25 Range/Units 06:20 AST (14-36) U/L Troponin I 0.045 H* (0.000-0.034) ng/mL Coagulation 01/15/25 Range/Units 23:03 PT 12.2 (10.0-12.5) sec APTT 25.4 (22.0-30.0) sec CBC 01/15/25 Range/Units 23:03 WBC 10.59 H (4.50-10.00) 10*3/uL RBC 3.92 L (4.10-5.20) 10*6/uL Hgb 9.5 L (12.0-15.0) g/dL Hct 32.6 L (37.2-46.3) % Plt Count 186 (140-440) 10*3/uL Comprehensive Metabolic Panel 01/15/25 Range/Units 23:03 Sodium 129 L (137-145) mmol/L Potassium 4.3 (3.5-5.1) mmol/L Chloride 91 L (98-107) mmol/L Carbon Dioxide 25 (22-30) mmol/L BUN 64 H (7-17) mg/dL Creatinine 2.81 H (0.52-1.04) mg/dL Glucose 203 H (74-99) mg/dL Calcium 7.3 L (8.4-10.2) mg/dL AST 39 H (14-36) U/L ALT 14 (4-34) U/L Alkaline Phosphatase 232 H (38-126) U/L Total Protein 6.5 (6.3-8.2) g/dL Albumin 2.9 L (3.5-5.0) g/dL Current Medications Generic Name Dose Route Start Last Admin Trade Name Tresq PRN Reason Stop Dose Admin Acetaminophen 650 mg 01/16/25 01:48 01/16/25 02:28 Acetaminophen Tab 325 Mg Tab PO 650 mg Q6HR PRN Administration Mild Pain or Fever > 100.5 Sodium Chloride 1,000 mls @ 50 mls/hr 01/16/25 01:45 01/16/25 03:04 Saline 0.9% IV 50 mls/hr .Q20H FLO Administration Naloxone HCl 0.2 mg 01/16/25 01:48 Naloxone 0.4 Mg/Ml 1 Ml Vial IV Q2M PRN Opioid Reversal Intake and Output 01/15/25 01/16/25 01/16/25 22:59 06:59 14:59 Other: Weight 74.843 kg 01/15/25 23:03 01/15/25 23:03
[2025-01-16] MEDS: ASPIRIN 81 MG PO SCH (09:45)
[2025-01-16] MEDS: CLOPIDOGREL 75 MG TAB PO SCH (09:45)
--- NOTE | 2025-01-16 09:45 | US ---
EXAMINATION TYPE: US venous doppler duplex LE BI DATE OF EXAM: 01/16/2025 9:27 AM COMPARISON: BLEV 01/07/25 CLINICAL INDICATION: Female, 69 years old with history of Elevated d dimer, hypoxemia; , Pain TECHNIQUE: The lower extremity deep venous system is examined utilizing real time linear array sonog macie with graded compression, color doppler sonography, and spectral doppler. SIDE PERFORMED: Bilateral FINDINGS: VESSELS IMAGED: Common Femoral Vein Deep Femoral Vein Greater Saphenous Vein * Femoral Vein Popliteal Vein Small Saphenous Vein * Proximal Calf Veins (* superficial vessels) Right Leg: Negative for DVT, Color Doppler imaging shows patency of the vessels. Spectral waveforms are within normal limits. Left Leg: Partial compression and thrombus noted within the left popliteal vein. Unable to visual ca lf veins within the left lower extremity., Limited exam due to patient body habitus and inability to tolerate probe pressure. IMPRESSION: Partially compressing/thrombus within the left popliteal vein. Poor visualization of the calf veins p ossibly thrombosed. [facility], , 01/16/2025 9:42 AM
--- NOTE | 2025-01-16 11:28 | P.HPIM ---
History of Present Illness This is a pleasant 69 years old female with past medical history of multiple medical problems as below. She came from [facility] for patient was found hypoxic with oxygen was in the 80s over the last 2 days. On admission patient was found to have hypotension 69/35. Patient received IV fluids, currently blood pressure 113/51. She is saturating 93% on 3 to 4 L via nasal cannula, she is afebrile. Labs showing WBC of 10.5, hemoglobin 9.5, sodium 129, creatinine 2.8 with baseline 1.2-1.5. Troponin is elevated 0.04 x 3, BNP is slightly high 2170. Venous ultrasound showing possible partial thrombus in the left popliteal vein with right leg negative for DVT. Chest x-ray read by radiologist as cardiomegaly with mild left pleural effusion, I reviewed chest x-ray by myself and agree with this finding was also there is possibility of pulmonary congestion. EKG showing sinus rhythm at [address]-T changes. Echocardiogram from 12/18/2024 showed ejection fraction of 45 to 50%. Urinalysis also was suspicious for UTI and patient was started on ceftriaxone Review of Systems Review of systems -CONSTITUTIONAL: No fever, as above HEENT: No recent visual problems or hearing problems. Denied any sore throat. CARDIOVASCULAR: No orthopnea, PND, no palpitations, no syncope. PULMONARY: No shortness of breath, no cough, no hemoptysis. GASTROINTESTINAL: No diarrhea, no nausea, no vomiting, no abdominal pain. Normoactive bowel sounds. NEUROLOGICAL: No headaches, no weakness, no numbness. HEMATOLOGICAL: Denies any bleeding or petechiae. GENITOURINARY: Denies any burning micturition, frequency, or urgency. MUSCULOSKELETAL/RHEUMATOLOGICAL: Denies any joint pain, swelling, or any muscle pain. ENDOCRINE: Denies any polyuria or polydipsia. Past Medical History Past Medical History: Blood Disorder, Cancer, Diabetes Mellitus, Deep Vein Thrombosis (DVT), GERD/Reflux, Hyperlipidemia, Hypertension, Myocardial Infarction ([place]), Neurologic Disorder, Osteoarthritis (OA), Pneumonia, Pulmonary Embolus (PE), Thyroid Disorder Additional Past Medical History / Comment(s): See Dr Babcock's H&P. Factor 5 Leiden, hx DVT L leg, hx PE L lung, hx [place] X5, palpitations, IDDM type II, neuropathy bilateral legs/feet, lymphedema L leg, charcot syndrome L foot, chronic low back pain, bilateral sciatica, hx bronchitis, anemia, hypothyroid, constipation, hx UTI, IBS, sinus problems, worsening tremors, hx skin cancer removal, hx pelvic fracture, clausterphobia, hx severe vertigo, poor balance and prone to falls. Moderate pericardial effusion Last Myocardial Infarction Date:: January 2020 History of Any Multi-Drug Resistant Organisms: VRE Date of last positivie culture/infection: 08/24/23 MDRO Source:: Urine Past Surgical History: Appendectomy, Cholecystectomy, Heart Catheterization With Stent, Hernia Repair, Hysterectomy, Tonsillectomy Additional Past Surgical History / Comment(s): Bilateral salpingectomy, bilateral oophorectomy, abdominal hernia surgeries, L foot fracture, bilateral cataract removals, lumbar epidural injections. Past Anesthesia/Blood Transfusion Reactions: No Reported Reaction Additional Past Anesthesia/Blood Transfusion Reaction / Comment(s): Pt has received blood in past without reaction. Date of Last Stent Placement:: January 2020 Past Psychological History: Anxiety, Depression, Panic Disorder Smoking Status: Former smoker Past Alcohol Use History: None Reported Past Drug Use History: None Reported - Past Family History Mother Family Medical History: COPD Additional Family Medical History / Comment(s): Mother was a smoker. Father Family Medical History: Cancer Additional Family Medical History / Comment(s): Lung cancer. Father was a smoker. Son(s) Family Medical History: Deep Vein Thrombosis (DVT) Medications and Allergies Home Medications Medication Instructions Recorded Confirmed Type Clopidogrel [Plavix] 75 mg PO DAILY@0900 07/07/19 01/16/25 History traZODone HCL [Desyrel] 200 mg PO HS@2100 07/07/19 01/16/25 History Insulin Glargine,Hum.rec.anlog 30 units SQ HS@1800 06/09/21 01/16/25 History [Lantus Solostar Pen] Insulin Lispro [humaLOG Kwikpen] See Protocol SQ ACHS 09/21/23 01/16/25 History DULoxetine HCL [Cymbalta] 60 mg PO BID@0900,2100 07/15/24 01/16/25 History Acetaminophen Tab [Tylenol] 650 mg PO Q4H PRN 12/13/24 01/16/25 History Albuterol Sulfate [Ventolin HFA] 2 puff INHALATION RT-Q6H PRN 12/13/24 01/16/25 History Atorvastatin [Lipitor] 80 mg PO HS@209912/13/24 01/16/25 History Ondansetron [Zofran] 4 mg PO Q8H PRN 12/13/24 01/16/25 History Sennosides-Docusate Sodium 1 tab PO BID@0900,209912/13/24 01/16/25 History [Senokot-S] methocarbamoL [Robaxin-750] 750 mg PO QID PRN 12/13/24 01/16/25 History polyethylene glycoL 3350 [Miralax] 17 gm PO BID PRN 12/13/24 01/16/25 History Insulin Lispro [humaLOG Kwikpen] 22 units SQ AC-BID@1200,1800 #0 12/22/24 01/16/25 Rx Metoprolol Tartrate [Lopressor] 12.5 mg PO BID@0900,209901/03/25 01/16/25 History ALPRAZolam [Xanax] 1 mg PO TID PRN #6 tab 01/07/25 01/16/25 Rx Bumetanide [BUMEX] 1 mg PO BID@0900,1600 tab 01/07/25 01/16/25 Rx Aspirin 81 mg PO DAILY@89901/16/25 01/16/25 History Calcium Carbonate [Tums] 500 mg PO QID PRN 01/16/25 01/16/25 History Colchicine [Colcrys] 0.6 mg PO BID@0900,209901/16/25 01/16/25 History Cyanocobalamin [Vitamin B-12] 1,000 mcg PO DAILY@89901/16/25 01/16/25 History Dapagliflozin Propanediol [Farxiga] 10 mg PO DAILY@89901/16/25 01/16/25 History Ensure Clear 1 can PO DAILY@89901/16/25 01/16/25 History Ferrous Sulfate [Iron (65 MG 325 mg PO BID@0900,209901/16/25 01/16/25 History Elemental)] Insulin Lispro [humaLOG Kwikpen] 15 units SQ DAILY@0801/16/25 01/16/25 History Ipratropium-Albuterol Nebulize 3 ml INHALATION RT-Q4H 01/16/25 01/16/25 History [Duoneb 0.5 mg-3 mg/3 ml Soln] Levothyroxine Sodium 75 mcg PO DAILY@59901/16/25 01/16/25 History Levothyroxine Sodium 200 mcg PO DAILY@0601/16/25 01/16/25 History Mag Hydrox/Al Hydrox/Simeth 30 ml PO Q4HR PRN 01/16/25 01/16/25 History [Maalox] Pantoprazole [Protonix] 40 mg PO DAILY@59901/16/25 01/16/25 History Sacubitril/Valsartan [Entresto 24 0.5 tab PO BID@0900,2100 01/16/25 01/16/25 History mg-26 mg Tablet] Spironolactone [Aldactone] 12.5 mg PO DAILY@59901/16/25 01/16/25 History oxyCODONE HCL [oxyCODONE HCL (IR)] 10 mg PO TID PRN 01/16/25 01/16/25 History Allergies Allergy/AdvReac Type Severity Reaction Status Date / Time Iodinated Contrast Media Allergy Rash/Hives Verified 01/16/25 08:57 Iodine and Iodide Containing Allergy Rash/Hives Verified 01/16/25 08:57 Produc tositumomab iodine-131 Allergy Unknown Verified 01/16/25 08:57 liraglutide [From Saxenda] AdvReac Unknown Nausea & Verified 01/16/25 08:57 Vomiting NSAIDS (Non-Steroidal AdvReac Unknown Nausea & Verified 01/16/25 08:57 Anti-Inflamma Vomiting aspirin AdvReac Nausea & Verified 01/16/25 08:57 Vomiting with high doses azithromycin AdvReac Vomiting Verified 01/16/25 08:57 naproxen [From Naprosyn] AdvReac Nausea & Verified 01/16/25 08:57 Vomiting Physical Exam Vitals: Vital Signs Temp Pulse Resp BP Pulse Ox 01/16/25 09:49 97.8 F 99 18 93 L 01/16/25 08:22 97.8 F 90 18 113/51 95 01/16/25 06:00 96 18 126/37 94 L 01/16/25 03:30 101 H 18 101/48 95 01/16/25 02:30 83 20 104/72 95 01/16/25 00:34 100 18 103/46 96 01/16/25 00:18 79 22 86/81 100 01/15/25 22:59 28 H 01/15/25 22:54 97.8 F 101 H 24 69/39 98 Intake and Output 01/15/25 01/16/25 01/16/25 22:59 06:59 14:59 Other: Weight 74.843 kg -GENERAL: The patient is alert and oriented x3, not in any acute distress. Well developed, well nourished. generally weak HEENT: Pupils are round and equally reacting to light. EOMI. No scleral icterus. No conjunctival pallor. Normocephalic, atraumatic. No pharyngeal erythema. No thyromegaly. CARDIOVASCULAR: S1 and S2 present. No murmurs, rubs, or gallops. PULMONARY: Chest is clear to auscultation, no wheezing , no crackles. -ABDOMEN: Soft, n mild left upper quadrant tenderness, no rebound tenderness,, nondistended, normoactive bowel sounds. No palpable organomegaly. MUSCULOSKELETAL: No joint swelling or deformity. EXTREMITIES: No cyanosis, clubbing, or pedal edema. NEUROLOGICAL: Gross neurological examination did not reveal any focal deficits. SKIN: No rashes. no petechiae. Results CBC & Chem 7: 01/15/25 23:03 01/15/25 23:03 Labs: Abnormal Lab Results - Last 24 Hours (Table) 01/15/25 01/15/25 01/15/25 Range/Units 23:03 23:03 23:03 WBC 10.59 H (4.50-10.00) 10*3/uL RBC 3.92 L (4.10-5.20) 10*6/uL Hgb 9.5 L (12.0-15.0) g/dL Hct 32.6 L (37.2-46.3) % MCH 24.2 L (27.0-32.0) pg MCHC 29.1 L (32.0-37.0) g/dL MPV 12.3 H (9.5-12.2) fL Immature Gran # 0.05 H (0.00-0.04) 10*3/uL Neutrophils # 9.20 H (1.80-7.70) 10*3/uL Lymphocytes # 0.54 L (0.90-5.00) 10*3/uL Eosinophils # 0.03 L (0.04-0.35) 10*3/uL Immature Plt Fraction 9.5 H (1.1-6.1) % Sodium 129 L (137-145) mmol/L Chloride 91 L (98-107) mmol/L BUN 64 H (7-17) mg/dL Creatinine 2.81 H (0.52-1.04) mg/dL Glucose 203 H (74-99) mg/dL Calcium 7.3 L (8.4-10.2) mg/dL AST 39 H (14-36) U/L Alkaline Phosphatase 232 H (38-126) U/L Troponin I 0.043 H* (0.000-0.034) ng/mL Albumin 2.9 L (3.5-5.0) g/dL Urine Appearance (Clear) Urine Protein (Negative) Urine Glucose (UA) (Negative) Urine Blood (Negative) Ur Leukocyte Esterase (Negative) Urine RBC (0-5) /hpf Urine WBC (0-5) /hpf Urine Bacteria (None) /hpf Urine Mucus (None) /hpf 01/16/25 01/16/25 01/16/25 Range/Units 00:31 03:48 06:20 WBC (4.50-10.00) 10*3/uL RBC (4.10-5.20) 10*6/uL Hgb (12.0-15.0) g/dL Hct (37.2-46.3) % MCH (27.0-32.0) pg MCHC (32.0-37.0) g/dL MPV (9.5-12.2) fL Immature Gran # (0.00-0.04) 10*3/uL Neutrophils # (1.80-7.70) 10*3/uL Lymphocytes # (0.90-5.00) 10*3/uL Eosinophils # (0.04-0.35) 10*3/uL Immature Plt Fraction (1.1-6.1) % Sodium (137-145) mmol/L Chloride (98-107) mmol/L BUN (7-17) mg/dL Creatinine (0.52-1.04) mg/dL Glucose (74-99) mg/dL Calcium (8.4-10.2) mg/dL AST (14-36) U/L Alkaline Phosphatase (38-126) U/L Troponin I 0.042 H* 0.045 H* (0.000-0.034) ng/mL Albumin (3.5-5.0) g/dL Urine Appearance Turbid H (Clear) Urine Protein Trace H (Negative) Urine Glucose (UA) 3+ H (Negative) Urine Blood Small H (Negative) Ur Leukocyte Esterase Large H (Negative) Urine RBC 28 H (0-5) /hpf Urine WBC >182 H (0-5) /hpf Urine Bacteria Many H (None) /hpf Urine Mucus Few H (None) /hpf Assessment and Plan Assessment: Hypotension, improved Elevated troponin, secondary to renal and cardiac disease Acute urinary tract infection Acute left leg DVT suspected Mild acute systolic CHF with ejection fraction 45 to 50% Acute kidney injury on CKD stage III Bilateral leg pain with ultrasound showing possible partial thrombus in the left popliteal vein. Plan: Continue with normal saline Continue with ceftriaxone Follow-up urine culture Continue with aspirin and Plavix Cardiology, pulmonary and nephrology team consult Check bladder scan Consult hematology service Labs and medication were reviewed.. Continue same treatment. Continue with symptomatic treatment. Resume home medication. Monitor labs and vitals. DVT and GI prophylaxis. Further recommendations as per clinical course of the p atient DVT prophylaxis: Subcutaneous heparin GI Prophylaxis: Pepcid PT/OT: From [facility] Prognosis is guarded
[2025-01-16 13:05] LABS: Glucose,Whole Blood 247 mg/dL (70-110)
--- NOTE | 2025-01-16 13:09 | CA ---
Transthoracic Echo Report Name: Rosalinda Brothers Age: 69 Gender: F : 1955 Exam Date: 01/16/2025 09:54 Exam Location: [place] [facility] Ht (in): 65 Wt (lb): 165 Ordering Physician: Dejah Morgan Attending/Referring Phys: [id number], Cathy Completion Engineer Abby Wong RDCS Procedure CPT: Indications: assess pericardial effusion Cardiac Hx: limited study Technical Quality: Good Contrast 1: Total Dose (mL): Contrast 2: Total Dose (mL): MEASUREMENTS (Male / Female) Normal Values FINDINGS Left Ventricle Left ventricular ejection fraction is estimated at 55-60 %. Right Ventricle Right Atrium Left Atrium Mitral Valve Aortic Valve Tricuspid Valve Pulmonic Valve Pericardium Trace pericardial effusion. Aorta CONCLUSIONS Limited echo. Normal left ventricular size and systolic function Trace pericardial effusion Previewed by: Dr. Liliana Lamas MD (Electronically Signed) Final Date: 16 January 2025 13:08
--- NOTE | 2025-01-16 16:28 | P.CNPUL ---
History of Present Illness Consult date: 01/16/25 Requesting physician: Jonathan Mooney Reason for consult: hypoxemia Chief complaint: Nausea, weakness History of present illness: This is a 69-year-old female patient with multiple medical problems including diabetes mellitus, GERD, hypertension, hyperlipidemia, pulmonary embolism, hypothyroidism, myocardial infarction, coronary disease with previous stent placement, panic disorder, former smoker who was recently discharged from here on January 08, 2025 for hypotension. She was brought back again yesterday 01/15/2025 from [facility] with lethargy hypoxemia and hypotension. Chest x-ray reveals car diomegaly with a mild left pleural effusion. Dopplers of the lower extremity revealed no DVT in the right. There is a thrombus within the left popliteal vein. Echocardiogram revealed preserved left ventricular systolic function with an ejection fraction 55 to 60%. White count 10.5. Hemoglobin 9.5. Platelets 186. Sodium 129. Potassium 4.3. Bicarb 25. BUN 64. Creatinine 2.81. Glucose 203. Troponin 0.043, 0.042, 0.045. proBNP 2170. Urinalysis with large leukocyte esterase and high WBCs and many bacteria. She is seen today in consultation in the emergency department. Currently sitting up on a stretcher. Awake and alert in no acute distress. Maintaining O2 saturations in the 90s on 3 L/min per nasal cannula. She has been afebrile. Hemodynamically stable. Review of Systems REVIEW OF SYSTEMS: CONSTITUTIONAL: Positive for generalized weakness. Denies any recent significant weight loss or weight gain. EYES: Denies change in vision. EARS, NOSE, MOUTH, THROAT: Denies headaches, denies sore throat. CARDIOVASCULAR: Denies chest pain, palpitations or syncopal episodes. RESPIRATORY: Positive for shortness of breath, cough, congestion no hemoptysis. GASTROINTESTINAL: Denies change in appetite, denies abdominal pain GENITOURINARY: Denies hematuria, denies infections. MUSKULOSKELETAL: Positive for lower extremity swelling. INTEGUMENTARY: Denies rash, denies eczema. NEUROLOGICAL: Denies recent memory loss, no recent seizure activity. PSYCHIATRIC: Denies anxiety, denies depression. HEMATOLOGIC/LYMPHATIC: Denies anemia, denies enlarged lymph nodes. Past Medical History Past Medical History: Blood Disorder, Cancer, Diabetes Mellitus, Deep Vein Thrombosis (DVT), GERD/Reflux, Hyperlipidemia, Hypertension, Myocardial Infarction (DC), Neurologic Disorder, Osteoarthritis (OA), Pneumonia, Pulmonary Embolus (PE), Thyroid Disorder Additional Past Medical History / Comment(s): See Dr Babcock's H&P. Factor 5 Leiden, hx DVT L leg, hx PE L lung, hx DC X5, palpitations, IDDM type II, n europathy bilateral legs/feet, lymphedema L leg, charcot syndrome L foot, chronic low back pain, bilateral sciatica, hx bronchitis, anemia, hypothyroid, constipation, hx UTI, IBS, sinus problems, worsening tremors, hx skin cancer removal, hx pelvic fracture, clausterphobia, hx severe vertigo, poor balance and prone to falls. Moderate pericardial effusion Last Myocardial Infarction Date:: January 2020 History of Any Multi-Drug Resistant Organisms: VRE Date of last positivie culture/infection: 08/24/23 MDRO Source:: Urine Past Surgical History: Appendectomy, Cholecystectomy, Heart Catheterization With Stent, Hernia Repair, Hysterectomy, Tonsillectomy Additional Past Surgical History / Comment(s): Bilateral salpingectomy, bilateral oophorectomy, abdominal hernia surgeries, L foot fracture, bilateral cataract removals, lumbar epidural injections. Past Anesthesia/Blood Transfusion Reactions: No Reported Reaction Additional Past Anesthesia/Blood Transfusion Reaction / Comment(s): Pt has received blood in past without reaction. Date of Last Stent Placement:: January 2020 Past Psychological History: Anxiety, Depression, Panic Disorder Smoking Status: Former smoker Past Alcohol Use History: None Reported Past Drug Use History: None Reported - Past Family History Mother Family Medical History: COPD Additional Family Medical History / Comment(s): Mother was a smoker. Father Family Medical History: Cancer Additional Family Medical History / Comment(s): Lung cancer. Father was a smoker. Son(s) Family Medical History: Deep Vein Thrombosis (DVT) Medications and Allergies Home Medications Medication Instructions Recorded Confirmed Type Clopidogrel [Plavix] 75 mg PO DAILY@0900 07/07/19 01/16/25 History traZODone HCL [Desyrel] 200 mg PO HS@2100 07/07/19 01/16/25 History Insulin Glargine,Hum.rec.anlog 30 units SQ HS@1800 06/09/21 01/16/25 History [Lantus Solostar Pen] Insulin Lispro [humaLOG Kwikpen] See Protocol SQ ACHS 09/21/23 01/16/25 History DULoxetine HCL [Cymbalta] 60 mg PO BID@0900,2100 07/15/24 01/16/25 History Acetaminophen Tab [Tylenol] 650 mg PO Q4H PRN 12/13/24 01/16/25 History Albuterol Sulfate [Ventolin HFA] 2 puff INHALATION RT-Q6H PRN 12/13/24 01/16/25 History Atorvastatin [Lipitor] 80 mg PO HS@209912/13/24 01/16/25 History Ondansetron [Zofran] 4 mg PO Q8H PRN 12/13/24 01/16/25 History Sennosides-Docusate Sodium 1 tab PO BID@0900,209912/13/24 01/16/25 History [Senokot-S] methocarbamoL [Robaxin-750] 750 mg PO QID PRN 12/13/24 01/16/25 History polyethylene glycoL 3350 [Miralax] 17 gm PO BID PRN 12/13/24 01/16/25 History Insulin Lispro [humaLOG Kwikpen] 22 units SQ AC-BID@1200,1800 #0 12/22/24 01/16/25 Rx Metoprolol Tartrate [Lopressor] 12.5 mg PO BID@0900,209901/03/25 01/16/25 History ALPRAZolam [Xanax] 1 mg PO TID PRN #6 tab 01/07/25 01/16/25 Rx Bumetanide [BUMEX] 1 mg PO BID@0900,1600 tab 01/07/25 01/16/25 Rx Aspirin 81 mg PO DAILY@89901/16/25 01/16/25 History Calcium Carbonate [Tums] 500 mg PO QID PRN 01/16/25 01/16/25 History Colchicine [Colcrys] 0.6 mg PO BID@0900,209901/16/25 01/16/25 History Cyanocobalamin [Vitamin B-12] 1,000 mcg PO DAILY@89901/16/25 01/16/25 History Dapagliflozin Propanediol [Farxiga] 10 mg PO DAILY@89901/16/25 01/16/25 History Ensure Clear 1 can PO DAILY@0901/16/25 01/16/25 History Ferrous Sulfate [Iron (65 MG 325 mg PO BID@0900,209901/16/25 01/16/25 History Elemental)] Insulin Lispro [humaLOG Kwikpen] 15 units SQ DAILY@0801/16/25 01/16/25 History Ipratropium-Albuterol Nebulize 3 ml INHALATION RT-Q4H 01/16/25 01/16/25 History [Duoneb 0.5 mg-3 mg/3 ml Soln] Levothyroxine Sodium 75 mcg PO DAILY@59901/16/25 01/16/25 History Levothyroxine Sodium 200 mcg PO DAILY@59901/16/25 01/16/25 History Mag Hydrox/Al Hydrox/Simeth 30 ml PO Q4HR PRN 01/16/25 01/16/25 History [Maalox] Pantoprazole [Protonix] 40 mg PO DAILY@59901/16/25 01/16/25 History Sacubitril/Valsartan [Entresto 24 0.5 tab PO BID@0900,209901/16/25 01/16/25 History mg-26 mg Tablet] Spironolactone [Aldactone] 12.5 mg PO DAILY@59901/16/25 01/16/25 History oxyCODONE HCL [oxyCODONE HCL (IR)] 10 mg PO TID PRN 01/16/25 01/16/25 History Allergies Allergy/AdvReac Type Severity Reaction Status Date / Time Iodinated Contrast Media Allergy Rash/Hives Verified 01/16/25 08:57 Iodine and Iodide Containing Allergy Rash/Hives Verified 01/16/25 08:57 Produc tositumomab iodine-131 Allergy Unknown Verified 01/16/25 08:57 liraglutide [From Saxenda] AdvReac Unknown Nausea & Verified 01/16/25 08:57 Vomiting NSAIDS (Non-Steroidal AdvReac Unknown Nausea & Verified 01/16/25 08:57 Anti-Inflamma Vomiting aspirin AdvReac Nausea & Verified 01/16/25 08:57 Vomiting with high doses azithromycin AdvReac Vomiting Verified 01/16/25 08:57 naproxen [From Naprosyn] AdvReac Nausea & Verified 01/16/25 08:57 Vomiting Physical Exam Vitals: Vital Signs Temp Pulse Resp BP Pulse Ox 01/16/25 14:32 101 H 20 97/43 97 01/16/25 12:06 78 18 108/44 94 L 01/16/25 09:49 97.8 F 99 18 93 L 01/16/25 08:22 97.8 F 90 18 113/51 95 01/16/25 06:00 96 18 126/37 94 L 01/16/25 03:30 101 H 18 101/48 95 01/16/25 02:30 83 20 104/72 95 01/16/25 00:34 100 18 103/46 96 01/16/25 00:18 79 22 86/81 100 01/15/25 22:59 28 H 01/15/25 22:54 97.8 F 101 H 24 69/39 98 GENERAL EXAM: Alert, weak 69-year-old female, on 3 L nasal cannula, fairly comfortable in no apparent distress. HEAD: Normocephalic. EYES: Normal reaction of pupils, equal size. NOSE: Clear with pink turbinates. THROAT: No erythema or exudates. NECK: No masses, no JVD. CHEST: No chest wall deformity. LUNGS: Equal air entry with crackles in the left lung base. CVS: S1 and S2 normal with no audible murmur, regular rhythm. ABDOMEN: No hepatosplenomegaly, normal bowel sounds, no guarding or rigidity. SPINE: No scoliosis or deformity SKIN: No rashes CENTRAL NERVOUS SYSTEM: No focal deficits, tone is normal in all 4 extremities. EXTREMITIES: There is 1+ peripheral edema. No clubbing, no cyanosis. Peripheral pulses are intact. Results - Laboratory Findings CBC and BMP: 01/15/25 23:03 01/15/25 23:03 PT/INR, D-dimer PT 12.2 sec (10.0-12.5) 01/15/25 23:03 INR 1.1 (<1.2) 01/15/25 23:03 Abnormal lab findings: Abnormal Labs 01/15/25 01/15/25 01/15/25 23:03 23:03 23:03 WBC 10.59 H RBC 3.92 L Hgb 9.5 L Hct 32.6 L MCH 24.2 L MCHC 29.1 L MPV 12.3 H Immature Gran # 0.05 H Neutrophils # 9.20 H Lymphocytes # 0.54 L Eosinophils # 0.03 L Immature Plt Fraction 9.5 H Sodium 129 L Chloride 91 L BUN 64 H Creatinine 2.81 H Glucose 203 H POC Glucose (mg/dL) Calcium 7.3 L AST 39 H Alkaline Phosphatase 232 H Troponin I 0.043 H* Albumin 2.9 L Urine Appearance Urine Protein Urine Glucose (UA) Urine Blood Ur Leukocyte Esterase Urine RBC Urine WBC Urine Bacteria Urine Mucus 01/16/25 01/16/25 01/16/25 00:31 03:48 06:20 WBC RBC Hgb Hct MCH MCHC MPV Immature Gran # Neutrophils # Lymphocytes # Eosinophils # Immature Plt Fraction Sodium Chloride BUN Creatinine Glucose POC Glucose (mg/dL) Calcium AST Alkaline Phosphatase Troponin I 0.042 H* 0.045 H* Albumin Urine Appearance Turbid H Urine Protein Trace H Urine Glucose (UA) 3+ H Urine Blood Small H Ur Leukocyte Esterase Large H Urine RBC 28 H Urine WBC >182 H Urine Bacteria Many H Urine Mucus Few H 01/16/25 13:04 WBC RBC Hgb Hct MCH MCHC MPV Immature Gran # Neutrophils # Lymphocytes # Eosinophils # Immature Plt Fraction Sodium Chloride BUN Creatinine Glucose POC Glucose (mg/dL) 247 H Calcium AST Alkaline Phosphatase Troponin I Albumin Urine Appearance Urine Protein Urine Glucose (UA) Urine Blood Ur Leukocyte Esterase Urine RBC Urine WBC Urine Bacteria Urine Mucus - Diagnostic Findings Chest x-ray: image reviewed Assessment and Plan Assessment: Generalized weakness secondary to suspected urinary tract infection Urinary tract infection Leukocytosis secondary to above Acute kidney injury secondary to above Hyponatremia Diabetes mellitus with hyperglycemia Possible acute versus chronic left lower extremity DVT Recurrent left pleural effusion with previous thoracentesis on 12/20/2024, negative for malignancy Hypoxic respiratory failure secondary to above Coronary artery disease with previous stent placement History of systolic congestive heart failure with ejection fraction of 45% 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 pulmonary embolism Hypertension Hyperlipidemia Anemia of chronic disease Chronic kidney disease stage III Hypothyroidism Poor gait function with frequent falls Former smoker Poor overall functional performance based on the above-mentioned multiple comorbidities currently in an ECF Plan: The patient was seen and evaluated Chest x-ray, labs and medications reviewed Echocardiogram reviewed Doppler of the lower extremities reviewed Add DuoNeb inhalations Titrate the FiO2 as tolerated Currently stable on 3 L/min per nasal cannula We will continue to follow and make further recommendations based on her clinical status I have personally seen and examined the patient, performed the documentation and the assessment and plan as written. Number of minutes spent on the visit: 20 Dictation was produced using [employer] dictation software. Please excuse any grammatical, word or spelling errors. Time with Patient: Greater than 30
[2025-01-16] MEDS: HEPARIN SODIUM,PORCINE 5,000 UNIT/ML 1 ML VIAL SQ SCH (17:02)
[2025-01-16] MEDS: ONDANSETRON 4 MG/2 ML VIAL IVP PRN (17:04)
[2025-01-16 17:27] LABS: % Iron Saturation 10.34 (15.00-50.00)
--- NOTE | 2025-01-16 17:53 | P.CONS ---
History of Present Illness - Reason for Consult Consult date: 01/16/25 LLE DVT Requesting physician: Jonathan E Sheet - Chief Complaint SOB - History of Present Illness Patient is a 69-year-old female who presented to the ER from rehab for dyspnea, hypotension and lethargy. Patient has a history of CHF, chronic kidney disease, CAD with recent stenting in 10/2024, on dual antiplatelet therapy with aspirin and plavix. She also reports history of GI bleed in August 2024. Consult placed for LLE DVT. Upon admit bilateral lower extremity Dopplers showing partially compressing thrombus within the left popliteal vein. And poor visualization of the calf veins possibly thrombosed. However is noted exam is limited due to patient body habitus and inability to tolerate probe pressure. Bilateral lower extremity Dopplers obtained on 01/07/2025 reported bilateral lower extremities were negative for DVT but again stating exam was limited. Patient reports she does have a history of a left lower extremity left popliteal DVT approximately 40 years ago and believes she may have had a Jarek filter placed at that time but is unsure. Also reports history of PEs in the 1980s. Also reports history of factor V Leiden. CTA chest on 01/07/2025 was negative for PE. Labs reviewed, hemoglobin 9.5, MCV 83.2, MCHC 29.1. Monitoring labs anemia has been noted within EMR since at least 2018. As stated above patient does have a history of GI bleed in August 2024. Denies any recent acute episodes of bleeding or melena. Review of Systems 10 point ROS is negative except as stated in the HPI Past Medical History Past Medical History: Blood Disorder, Cancer, Diabetes Mellitus, Deep Vein Thrombosis (DVT), GERD/Reflux, Hyperlipidemia, Hypertension, Myocardial Infarction ([place]), Neurologic Disorder, Osteoarthritis (OA), Pneumonia, Pulmonary Embolus (PE), Thyroid Disorder Additional Past Medical History / Comment(s): See Dr Babcock's H&P. Factor 5 Leiden, hx DVT L leg, hx PE L lung, hx [place] X5, palpitations, IDDM type II, neuropathy bilateral legs/feet, lymphedema L leg, charcot syndrome L foot, chronic low back pain, bilateral sciatica, hx bronchitis, anemia, hypothyroid, constipation, hx UTI, IBS, sinus problems, worsening tremors, hx skin cancer removal, hx pelvic fracture, clausterphobia, hx severe vertigo, poor balance and prone to falls. Moderate pericardial effusion Last Myocardial Infarction Date:: January 2020 History of Any Multi-Drug Resistant Organisms: VRE Year Discovered:: 08/24/23 MDRO Source:: Urine Past Surgical History: Appendectomy, Cholecystectomy, Heart Catheterization With Stent, Hernia Repair, Hysterectomy, Tonsillectomy Additional Past Surgical History / Comment(s): Bilateral salpingectomy, bilateral oophorectomy, abdominal hernia surgeries, L foot fracture, bilateral cataract removals, lumbar epidural injections. Past Anesthesia/Blood Transfusion Reactions: No Reported Reaction Additional Past Anesthesia/Blood Transfusion Reaction / Comm: Pt has received blood in past without reaction. Date of Last Stent Placement:: January 2020 Past Psychological History: Anxiety, Depression, Panic Disorder Smoking Status: Former smoker Past Alcohol Use History: None Reported Past Drug Use History: None Reported - Past Family History Mother Family Medical History: COPD Additional Family Medical History / Comment(s): Mother was a smoker. Father Family Medical History: Cancer Additional Family Medical History / Comment(s): Lung cancer. Father was a smoker. Son(s) Family Medical History: Deep Vein Thrombosis (DVT) Medications and Allergies Home Medications Medication Instructions Recorded Confirmed Type Clopidogrel [Plavix] 75 mg PO DAILY@0900 07/07/19 01/16/25 History traZODone HCL [Desyrel] 200 mg PO HS@2100 07/07/19 01/16/25 History Insulin Glargine,Hum.rec.anlog 30 units SQ HS@1800 06/09/21 01/16/25 History [Lantus Solostar Pen] Insulin Lispro [humaLOG Kwikpen] See Protocol SQ ACHS 09/21/23 01/16/25 History DULoxetine HCL [Cymbalta] 60 mg PO BID@0900,2100 07/15/24 01/16/25 History Acetaminophen Tab [Tylenol] 650 mg PO Q4H PRN 12/13/24 01/16/25 History Albuterol Sulfate [Ventolin HFA] 2 puff INHALATION RT-Q6H PRN 12/13/24 01/16/25 History Atorvastatin [Lipitor] 80 mg PO HS@2100 12/13/24 01/16/25 History Ondansetron [Zofran] 4 mg PO Q8H PRN 12/13/24 01/16/25 History Sennosides-Docusate Sodium 1 tab PO BID@0900,2100 12/13/24 01/16/25 History [Senokot-S] methocarbamoL [Robaxin-750] 750 mg PO QID PRN 12/13/24 01/16/25 History polyethylene glycoL 3350 [Miralax] 17 gm PO BID PRN 12/13/24 01/16/25 History Insulin Lispro [humaLOG Kwikpen] 22 units SQ AC-BID@1200,1800 #0 12/22/24 01/16/25 Rx Metoprolol Tartrate [Lopressor] 12.5 mg PO BID@0900,2100 01/03/25 01/16/25 History ALPRAZolam [Xanax] 1 mg PO TID PRN #6 tab 01/07/25 01/16/25 Rx Bumetanide [BUMEX] 1 mg PO BID@0900,1600 tab 01/07/25 01/16/25 Rx Aspirin 81 mg PO DAILY@89901/16/25 01/16/25 History Calcium Carbonate [Tums] 500 mg PO QID PRN 01/16/25 01/16/25 History Colchicine [Colcrys] 0.6 mg PO BID@0900,209901/16/25 01/16/25 History Cyanocobalamin [Vitamin B-12] 1,000 mcg PO DAILY@89901/16/25 01/16/25 History Dapagliflozin Propanediol [Farxiga] 10 mg PO DAILY@89901/16/25 01/16/25 History Ensure Clear 1 can PO DAILY@89901/16/25 01/16/25 History Ferrous Sulfate [Iron (65 MG 325 mg PO BID@0900,209901/16/25 01/16/25 History Elemental)] Insulin Lispro [humaLOG Kwikpen] 15 units SQ DAILY@0801/16/25 01/16/25 History Ipratropium-Albuterol Nebulize 3 ml INHALATION RT-Q4H 01/16/25 01/16/25 History [Duoneb 0.5 mg-3 mg/3 ml Soln] Levothyroxine Sodium 75 mcg PO DAILY@59901/16/25 01/16/25 History Levothyroxine Sodium 200 mcg PO DAILY@59901/16/25 01/16/25 History Mag Hydrox/Al Hydrox/Simeth 30 ml PO Q4HR PRN 01/16/25 01/16/25 History [Maalox] Pantoprazole [Protonix] 40 mg PO DAILY@59901/16/25 01/16/25 History Sacubitril/Valsartan [Entresto 24 0.5 tab PO BID@0900,2100 01/16/25 01/16/25 History mg-26 mg Tablet] Spironolactone [Aldactone] 12.5 mg PO DAILY@59901/16/25 01/16/25 History oxyCODONE HCL [oxyCODONE HCL (IR)] 10 mg PO TID PRN 01/16/25 01/16/25 History Allergies Allergy/AdvReac Type Severity Reaction Status Date / Time Iodinated Contrast Media Allergy Rash/Hives Verified 01/16/25 08:57 Iodine and Iodide Containing Allergy Rash/Hives Verified 01/16/25 08:57 Produc tositumomab iodine-131 Allergy Unknown Verified 01/16/25 08:57 liraglutide [From Saxenda] AdvReac Unknown Nausea & Verified 01/16/25 08:57 Vomiting NSAIDS (Non-Steroidal AdvReac Unknown Nausea & Verified 01/16/25 08:57 Anti-Inflamma Vomiting aspirin AdvReac Nausea & Verified 01/16/25 08:57 Vomiting with high doses azithromycin AdvReac Vomiting Verified 01/16/25 08:57 naproxen [From Naprosyn] AdvReac Nausea & Verified 01/16/25 08:57 Vomiting Physical Exam Vitals: Vital Signs Temp Pulse Resp BP Pulse Ox 01/16/25 14:32 101 H 20 97/43 97 01/16/25 12:06 78 18 108/44 94 L 01/16/25 09:49 97.8 F 99 18 93 L 01/16/25 08:22 97.8 F 90 18 113/51 95 01/16/25 06:00 96 18 126/37 94 L 01/16/25 03:30 101 H 18 101/48 95 01/16/25 02:30 83 20 104/72 95 01/16/25 00:34 100 18 103/46 96 01/16/25 00:18 79 22 86/81 100 06/12/25 22:59 28 H 01/15/25 22:54 97.8 F 101 H 24 69/39 98 - Constitutional General appearance: no acute distress, obese - EENT Eyes: anicteric sclerae, EOMI ENT: hearing grossly normal - Respiratory breathing is even and unlabored - Cardiovascular skin warm and dry No calf swelling of tenderness noted - Gastrointestinal General gastrointestinal: soft, no tenderness - Integumentary Integumentary: no cyanotic - Musculoskeletal Musculoskeletal: generalized weakness - Psychiatric Psychiatric: A&O x's 3 Results CBC & Chem 7: 01/15/25 23:03 01/15/25 23:03 Labs: Abnormal Lab Results - Last 24 Hours (Table) 01/15/25 01/15/25 01/15/25 Range/Units 23:03 23:03 23:03 WBC 10.59 H (4.50-10.00) 10*3/uL RBC 3.92 L (4.10-5.20) 10*6/uL Hgb 9.5 L (12.0-15.0) g/dL Hct 32.6 L (37.2-46.3) % MCH 24.2 L (27.0-32.0) pg MCHC 29.1 L (32.0-37.0) g/dL MPV 12.3 H (9.5-12.2) fL Immature Gran # 0.05 H (0.00-0.04) 10*3/uL Neutrophils # 9.20 H (1.80-7.70) 10*3/uL Lymphocytes # 0.54 L (0.90-5.00) 10*3/uL Eosinophils # 0.03 L (0.04-0.35) 10*3/uL Immature Plt Fraction 9.5 H (1.1-6.1) % Sodium 129 L (137-145) mmol/L Chloride 91 L (98-107) mmol/L BUN 64 H (7-17) mg/dL Creatinine 2.81 H (0.52-1.04) mg/dL Glucose 203 H (74-99) mg/dL POC Glucose (mg/dL) (70-110) mg/dL Calcium 7.3 L (8.4-10.2) mg/dL AST 39 H (14-36) U/L Alkaline Phosphatase 232 H (38-126) U/L Troponin I 0.043 H* (0.000-0.034) ng/mL Albumin 2.9 L (3.5-5.0) g/dL Urine Appearance (Clear) Urine Protein (Negative) Urine Glucose (UA) (Negative) Urine Blood (Negative) Ur Leukocyte Esterase (Negative) Urine RBC (0-5) /hpf Urine WBC (0-5) /hpf Urine Bacteria (None) /hpf Urine Mucus (None) /hpf 01/16/25 01/16/25 01/16/25 Range/Units 00:31 03:48 06:20 WBC (4.50-10.00) 10*3/uL RBC (4.10-5.20) 10*6/uL Hgb (12.0-15.0) g/dL Hct (37.2-46.3) % MCH (27.0-32.0) pg MCHC (32.0-37.0) g/dL MPV (9.5-12.2) fL Immature Gran # (0.00-0.04) 10*3/uL Neutrophils # (1.80-7.70) 10*3/uL Lymphocytes # (0.90-5.00) 10*3/uL Eosinophils # (0.04-0.35) 10*3/uL Immature Plt Fraction (1.1-6.1) % Sodium (137-145) mmol/L Chloride (98-107) mmol/L BUN (7-17) mg/dL Creatinine (0.52-1.04) mg/dL Glucose (74-99) mg/dL POC Glucose (mg/dL) (70-110) mg/dL Calcium (8.4-10.2) mg/dL AST (14-36) U/L Alkaline Phosphatase (38-126) U/L Troponin I 0.042 H* 0.045 H* (0.000-0.034) ng/mL Albumin (3.5-5.0) g/dL Urine Appearance Turbid H (Clear) Urine Protein Trace H (Negative) Urine Glucose (UA) 3+ H (Negative) Urine Blood Small H (Negative) Ur Leukocyte Esterase Large H (Negative) Urine RBC 28 H (0-5) /hpf Urine WBC >182 H (0-5) /hpf Urine Bacteria Many H (None) /hpf Urine Mucus Few H (None) /hpf 01/16/25 Range/Units 13:04 WBC (4.50-10.00) 10*3/uL RBC (4.10-5.20) 10*6/uL Hgb (12.0-15.0) g/dL Hct (37.2-46.3) % MCH (27.0-32.0) pg MCHC (32.0-37.0) g/dL MPV (9.5-12.2) fL Immature Gran # (0.00-0.04) 10*3/uL Neutrophils # (1.80-7.70) 10*3/uL Lymphocytes # (0.90-5.00) 10*3/uL Eosinophils # (0.04-0.35) 10*3/uL Immature Plt Fraction (1.1-6.1) % Sodium (137-145) mmol/L Chloride (98-107) mmol/L BUN (7-17) mg/dL Creatinine (0.52-1.04) mg/dL Glucose (74-99) mg/dL POC Glucose (mg/dL) 247 H (70-110) mg/dL Calcium (8.4-10.2) mg/dL AST (14-36) U/L Alkaline Phosphatase (38-126) U/L Troponin I (0.000-0.034) ng/mL Albumin (3.5-5.0) g/dL Urine Appearance (Clear) Urine Protein (Negative) Urine Glucose (UA) (Negative) Urine Blood (Negative) Ur Leukocyte Esterase (Negative) Urine RBC (0-5) /hpf Urine WBC (0-5) /hpf Urine Bacteria (None) /hpf Urine Mucus (None) /hpf CT scan - chest: report reviewed Venous US: report reviewed Assessment and Plan (1) DVT (deep venous thrombosis) Current Visit: Yes Status: Acute Code(s): I82.409 - ACUTE EMBOLISM AND THOMBOS UNSP DEEP VN UNSP LOWER EXTREMITY SNOMED Code(s): 615147982 (2) CHF (congestive heart failure) Current Visit: Yes Status: Acute Code(s): I50.9 - HEART FAILURE, UNSPECIFIED SNOMED Code(s): 21243862 (3) UTI (urinary tract infection) Current Visit: Yes Status: Acute Code(s): N39.0 - URINARY TRACT INFECTION, SITE NOT SPECIFIED SNOMED Code(s): 08665360 (4) LIAM (acute kidney injury) Current Visit: Yes Status: Acute Code(s): N17.9 - ACUTE KIDNEY FAILURE, UNSPECIFIED SNOMED Code(s): 90717305 Plan: LLE DVT: Patient reports she has a history of a left lower extremity left popliteal DVT approximately 40 years ago and believes she may have had a [place] filter placed at that time but is unsure. Also reports history of PEs in the 1980s. As well as a history of factor V Leiden. Of note patient has had multiple admissions over the last 1 month -Bilateral lower extremity Dopplers showing partially compressing thrombus within the left popliteal vein. And poor visualization of the calf veins possibly thrombosed. However, is noted exam is limited due to patient body habitus and inability to tolerate probe pressure. Bilateral lower extremity Dopplers obtained on 01/07/2025 reported bilateral lower extremities were negative for DVT but again stating exam was limited. CTA chest on 01/07/2025 was negative for PE -Will obtain repeat LLE doppler to r/o acute vs chronic DVT. As pt is on dual anti-plt tx with aspirin and plavix, and hx of GI bleed, placing pt on anticoagulation will increase risks of possible acute bleeds. If felt to be acute, this would be considered a provoked clot, and pt will need to be placed on AC for 3-6 months, pending her mobility status at that time. Will need to speak to cardiology to see if pt can be on single antiplt therapy to decrease risk of bleeding. Normocytic anemia: -Labs reviewed, hemoglobin 9.5, MCV 83.2, MCHC 29.1. Upon trending labs anemia has been noted within EMR since at least 2019 in the 10 range. As stated above patient does have a history of GI bleed in August 2024. Denies any recent acute episodes of bleeding or melena. Currently on dual antiplt therapy with aspirin and plavix. Also has hx of CKD with LIAM -Will obtain nutritional studies to r/o deficiency state -Continue to monitor CBC
[2025-01-16] MEDS: LORazepam 0.5 MG TAB PO PRN (18:24)
[2025-01-16] MEDS: ENOXAPARIN 80 MG/0.8 ML SYRINGE SQ SCH (18:38)
--- NOTE | 2025-01-16 20:07 | US ---
EXAMINATION TYPE: US venous doppler duplex LE LT DATE OF EXAM: 01/16/2025 7:41 PM COMPARISON: Same exam done same day CLINICAL INDICATION: Female, 69 years old with history of repeat doppler, r/o acute vs chronic DVT; , Pain TECHNIQUE: The lower extremity deep venous system is examined utilizing real time linear array sonog macie with graded compression, color doppler sonography, and spectral doppler. SIDE PERFORMED: Left FINDINGS: VESSELS IMAGED: Common Femoral Vein Deep Femoral Vein Greater Saphenous Vein * Femoral Vein Popliteal Vein Small Saphenous Vein * Proximal Calf Veins (* superficial vessels) Difficult and limited study due to patient body habitus Left Leg: Partial compression and flow seen within left popliteal vein IMPRESSION: Partial compression of the left popliteal vein. Similar to prior exam same day [facility], , 01/16/2025 8:04 PM
[2025-01-16 20:44] LABS: Glucose,Whole Blood 233 mg/dL (70-110)
[2025-01-16] MEDS: ATORVASTATIN 80 MG TAB PO SCH (23:03)
[2025-01-16] MEDS: FAMOTIDINE 20 MG/2 ML VIAL IV SCH (23:03)
[2025-01-16] MEDS: METOPROLOL TARTRATE 12.5 MG TAB PO SCH (23:05)
[2025-01-17 05:34] LABS: Glucose,Whole Blood 156 mg/dL (70-110)
[2025-01-17] MEDS: MIDODRINE 5 MG TAB PO SCH (09:11)
--- NOTE | 2025-01-17 09:18 | P.PN ---
Progress Note - Text Progress Note Date: 01/17/25 LLE DVT: Repeat LLE doppler, similar to previous, showing partial compression and flow in left popliteal vein Based on dopplers, this would be considered a provoked acute DVT. Would recommend transition to Eliquis or Xarelto Patient will need to be anticoagulated for 3-6 months, pending her mobility status at that time. Recommend f/u with her instructor psychiatric aide to see if pt can be on single antiplatelet therapy to decrease risk of bleeding
[2025-01-17 09:45] LABS: African American GFR (CKD) 34 (>60 ml/min/1.73 sqM); Anion Gap 10 mmol/L; Blood Urea Nitrogen 49 mg/dL (7-17); Calcium 8.2 mg/dL (8.4-10.2); Carbon Dioxide 29 mmol/L (22-30); Chloride 97 mmol/L (98-107); Glucose 192 mg/dL (74-99); Non-African American GFR(CKD) 29 (>60 ml/min/1.73 sqM); Potassium 3.8 mmol/L (3.5-5.1); Sodium 136 mmol/L (137-145)
--- NOTE | 2025-01-17 10:43 | P.PN ---
Subjective HISTORY OF PRESENT ILLNESS: This is a 69-year-old female with a past medical history significant for coronary artery disease with multivessel PCI, hypertension, hyperlipidemia, diabetes, former nicotine dependence, and GI bleeding. Patient follows in the office with Dr. Babcock. We have been asked to see the patient in consultation for congestive heart failure. Patient examined at the bedside in the emergency room. Patient was brought to the hospital from [facility] secondary to lethargy and hypotension. Patient currently denies having any chest pain or pressure. She denies any shortness of breath. Patient was found to have acute kidney injury with a creatinine of 2.81. DIAGNOSTICS: - EKG reveals sinus mechanism with baseline artifact - Chest xray mild left pleural effusion - Laboratory data: WBC 10.59. Hemoglobin 9.5. Platelet count 186. Sodium 129. Potassium 4.3. BUN 64. Creatinine 2.81. proBNP 2170. Troponin 0.043. 0.04 2. 0.045. - Current home cardiac medication list has not been updated at the time of this examination - Most recent echocardiogram obtained in January 2025 revealing ejection fraction 40% with small pericardial effusion - Cardiac catheterization history: October 2024 revealing LAD stented widely patent, circumflex with previous mid LAD stent jailed OM with good flow RCA with mid lesion and diffuse disease with heavy calcifications. PCI to the RCA with 3 stents. 01/17/2025 Patient examined this morning at the bedside. Patient currently denies any chest pain or pressure. She denies any shortness of breath creatinine improved today to 1.74. Blood pressures remain low in the 90s. Echocardiogram completed revealing ejection fraction 55 to 60% with trace pericardial effusion PHYSICAL EXAM: VITAL SIGNS: Reviewed. GENERAL: Well-developed in no acute distress. HEENT: Head is normocephalic. Pupils are equal, round. Sclerae anicteric. Mucous membranes of the mouth are moist. Neck supple. No JVD or thyromegaly LUNGS: Respirations even and unlabored. Lungs essentially clear to auscultation bilaterally. HEART: Regular rate and rhythm. S1 and S2 heard. ABDOMEN: Soft. Nondistended. Nontender. EXTREMITIES: Normal range of motion. No clubbing or cyanosis. Peripheral pulses intact. No lower extremity edema NEUROLOGIC: Awake and alert. Oriented x 3. ASSESSMENT: Hypotension Acute kidney injury Small pericardial effusion, noted on echo 01/2025, repeat echo this admission reveals trace pericardial effusion Coronary artery disease with previous stenting, most recently in October 2024 to the RCA with 3 stents Ischemic cardiomyopathy, 40% Chronic heart failure with reduced EF, not in acute exacerbation Hypertension Hyperlipidemia Diabetes Former nicotine dependence History of GI bleeding Acute DVT PLAN: Patient has been started on Eliquis for lower extremity DVT. We will discontinue aspirin. Continue Plavix 75 mg daily Add midodrine 5 mg 3 times daily for hypotension Continue current dose of metoprolol Continue to hold nephrotoxic agents Continue IV fluids Continue to monitor kidney function Further recommendations pending patient course Nurse practitioner note has been reviewed by physician. Signing provider agrees with the documented findings, assessment, and plan of care documented by DRILLING FIELD OPERATOR as a scribe. Objective - Vital Signs Vital signs: Vital Signs Temp 97.9 F 01/17/25 08:00 Pulse 102 H 01/17/25 08:00 Resp 16 01/17/25 08:00 BP 110/64 01/17/25 08:00 Pulse Ox 96 01/17/25 04:00 FiO2 Intake & Output 01/16/25 01/17/25 01/17/25 18:59 06:59 18:59 Intake Total 240 240 Output Total 1100 450 Balance -860 -210 Weight 74.5 kg Intake: Oral 240 240 Output: Urine 1100 450 Other: # Bowel Movements 1 1 - Labs CBC & Chem 7: 01/15/25 23:03 01/17/25 08:56 Labs: Abnormal Lab Results - Last 24 Hours (Table) 01/15/25 01/16/25 01/16/25 Range/Units 23:03 13:04 20:42 Sodium (137-145) mmol/L Chloride (98-107) mmol/L BUN (7-17) mg/dL Creatinine (0.52-1.04) mg/dL Glucose (74-99) mg/dL POC Glucose (mg/dL) 247 H 233 H (70-110) mg/dL Calcium (8.4-10.2) mg/dL Iron 24 L (65-175) UG/DL % Saturation 10.34 L (15.00-50.00) Transferrin 166.0 L (204.0-354.0) mg/dL Ferritin 432.0 H (22.0-322.0) ng/mL Vitamin B12 1584.0 H (200.0-944.0) pg/mL 01/17/25 01/17/25 Range/Units 05:33 08:56 Sodium 136 L (137-145) mmol/L Chloride 97 L (98-107) mmol/L BUN 49 H (7-17) mg/dL Creatinine 1.74 H (0.52-1.04) mg/dL Glucose 192 H (74-99) mg/dL POC Glucose (mg/dL) 156 H (70-110) mg/dL Calcium 8.2 L (8.4-10.2) mg/dL Iron (65-175) UG/DL % Saturation (15.00-50.00) Transferrin (204.0-354.0) mg/dL Ferritin (22.0-322.0) ng/mL Vitamin B12 (200.0-944.0) pg/mL Microbiology - Last 24 Hours (Table) 01/16/25 00:31 Urine Culture - Preliminary Urine,Voided Gram Neg Bacilli 01/15/25 23:19 Blood Culture - Preliminary Blood
--- NOTE | 2025-01-17 10:59 | P.NPCON ---
History of Present Illness - Reason for Consult Consult date: 01/17/25 acute renal failure - History of Present Illness 69 years old female patient with history of CHF, chronic kidney disease, CAD with recent stenting in 10/2024, on dual antiplatelet therapy with aspirin and plavix. She also reports history of GI bleed in August 2024. presented to ED c/o shortness of breath, hypotension in Rehab. she was found to have acute left popliteal vein DVT. CTA ruled out PE. nephrology is consulted for LIAM cr. on admission 2.5-> 2.8, she received IVF bolus and now on maintainance N/S @ 50 ml/hr. today's cr. is 1.7. UA is suggestive of UTI, she was started on IV ceftriaxone. baseline cr. ~1.2 she has been feeling loss of apetite, not hydrating or eating well. no other complaints. Past Medical History Past Medical History: Blood Disorder, Cancer, Diabetes Mellitus, Deep Vein Thrombosis (DVT), GERD/Reflux, Hyperlipidemia, Hypertension, Myocardial I nfarction (CA), Neurologic Disorder, Osteoarthritis (OA), Pneumonia, Pulmonary Embolus (PE), Thyroid Disorder Additional Past Medical History / Comment(s): See Dr Babcock's H&P. Factor 5 Leiden, hx DVT L leg, hx PE L lung, hx CA X5, palpitations, IDDM type II, neuropathy bilateral legs/feet, lymphedema L leg, charcot syndrome L foot, chronic low back pain, bilateral sciatica, hx bronchitis, anemia, hypothyroid, constipation, hx UTI, IBS, sinus problems, worsening tremors, hx skin cancer removal, hx pelvic fracture, clausterphobia, hx severe vertigo, poor balance and prone to falls. Moderate pericardial effusion Last Myocardial Infarction Date:: January 2020 History of Any Multi-Drug Resistant Organisms: VRE Date of last positivie culture/infection: 08/24/23 MDRO Source:: Urine Past Surgical History: Appendectomy, Cholecystectomy, Heart Catheterization With Stent, Hernia Repair, Hysterectomy, Tonsillectomy Additional Past Surgical History / Comment(s): Bilateral salpingectomy, bilateral oophorectomy, abdominal hernia surgeries, L foot fracture, bilateral cataract removals, lumbar epidural injections. Past Anesthesia/Blood Transfusion Reactions: No Reported Reaction Additional Past Anesthesia/Blood Transfusion Reaction / Comment(s): Pt has received blood in past without reaction. Date of Last Stent Placement:: January 2020 Past Psychological History: Anxiety, Depression, Panic Disorder Additional Psychological History / Comment(s): Severe panic attacks. Clausterphobia. Smoking Status: Former smoker Past Alcohol Use History: None Reported Additional Past Alcohol Use History / Comment(s): STARTED SMOKING AT AGE 20, quit smoking in 2012, smoked 1ppd. Past Drug Use History: None Reported - Past Family History Mother Family Medical History: COPD Additional Family Medical History / Comment(s): Mother was a smoker. Father Family Medical History: Cancer Additional Family Medical History / Comment(s): Lung cancer. Father was a smoker. Son(s) Family Medical History: Deep Vein Thrombosis (DVT) Medications and Allergies Home Medications Medication Instructions Recorded Confirmed Type Clopidogrel [Plavix] 75 mg PO DAILY@0900 07/07/19 01/16/25 History traZODone HCL [Desyrel] 200 mg PO HS@2100 07/07/19 01/16/25 History Insulin Glargine,Hum.rec.anlog 30 units SQ HS@1800 06/09/21 01/16/25 History [Lantus Solostar Pen] Insulin Lispro [humaLOG Kwikpen] See Protocol SQ ACHS 09/21/23 01/16/25 History DULoxetine HCL [Cymbalta] 60 mg PO BID@0900,2100 07/15/24 01/16/25 History Acetaminophen Tab [Tylenol] 650 mg PO Q4H PRN 12/13/24 01/16/25 History Albuterol Sulfate [Ventolin HFA] 2 puff INHALATION RT-Q6H PRN 12/13/24 01/16/25 History Atorvastatin [Lipitor] 80 mg PO HS@209912/13/24 01/16/25 History Ondansetron [Zofran] 4 mg PO Q8H PRN 12/13/24 01/16/25 History Sennosides-Docusate Sodium 1 tab PO BID@0900,2100 12/13/24 01/16/25 History [Senokot-S] methocarbamoL [Robaxin-750] 750 mg PO QID PRN 12/13/24 01/16/25 History polyethylene glycoL 3350 [Miralax] 17 gm PO BID PRN 12/13/24 01/16/25 History Insulin Lispro [humaLOG Kwikpen] 22 units SQ AC-BID@1200,1800 #0 12/22/24 01/16/25 Rx Metoprolol Tartrate [Lopressor] 12.5 mg PO BID@0900,2100 01/03/25 01/16/25 History ALPRAZolam [Xanax] 1 mg PO TID PRN #6 tab 01/07/25 01/16/25 Rx Bumetanide [BUMEX] 1 mg PO BID@0900,1600 tab 01/07/25 01/16/25 Rx Aspirin 81 mg PO DAILY@89901/16/25 01/16/25 History Calcium Carbonate [Tums] 500 mg PO QID PRN 01/16/25 01/16/25 History Colchicine [Colcrys] 0.6 mg PO BID@0900,209901/16/25 01/16/25 History Cyanocobalamin [Vitamin B-12] 1,000 mcg PO DAILY@89901/16/25 01/16/25 History Dapagliflozin Propanediol [Farxiga] 10 mg PO DAILY@89901/16/25 01/16/25 History Ensure Clear 1 can PO DAILY@89901/16/25 01/16/25 History Ferrous Sulfate [Iron (65 MG 325 mg PO BID@0900,209901/16/25 01/16/25 History Elemental)] Insulin Lispro [humaLOG Kwikpen] 15 units SQ DAILY@0801/16/25 01/16/25 History Ipratropium-Albuterol Nebulize 3 ml INHALATION RT-Q4H 01/16/25 01/16/25 History [Duoneb 0.5 mg-3 mg/3 ml Soln] Levothyroxine Sodium 75 mcg PO DAILY@59901/16/25 01/16/25 History Levothyroxine Sodium 200 mcg PO DAILY@59901/16/25 01/16/25 History Mag Hydrox/Al Hydrox/Simeth 30 ml PO Q4HR PRN 01/16/25 01/16/25 History [Maalox] Pantoprazole [Protonix] 40 mg PO DAILY@59901/16/25 01/16/25 History Sacubitril/Valsartan [Entresto 24 0.5 tab PO BID@0900,2100 01/16/25 01/16/25 History mg-26 mg Tablet] Spironolactone [Aldactone] 12.5 mg PO DAILY@0600 01/16/25 01/16/25 History oxyCODONE HCL [oxyCODONE HCL (IR)] 10 mg PO TID PRN 01/16/25 01/16/25 History Allergies Allergy/AdvReac Type Severity Reaction Status Date / Time Iodinated Contrast Media Allergy Rash/Hives Verified 01/16/25 08:57 Iodine and Iodide Containing Allergy Rash/Hives Verified 01/16/25 08:57 Produc tositumomab iodine-131 Allergy Unknown Verified 01/16/25 08:57 liraglutide [From Saxenda] AdvReac Unknown Nausea & Verified 01/16/25 08:57 Vomiting NSAIDS (Non-Steroidal AdvReac Unknown Nausea & Verified 01/16/25 08:57 Anti-Inflamma Vomiting aspirin AdvReac Nausea & Verified 01/16/25 08:57 Vomiting with high doses azithromycin AdvReac Vomiting Verified 01/16/25 08:57 naproxen [From Naprosyn] AdvReac Nausea & Verified 01/16/25 08:57 Vomiting Physical Exam Vitals: Vital Signs Temp Pulse Pulse Resp BP BP Pulse Ox 01/17/25 08:00 97.9 F 102 H 16 110/64 01/17/25 04:00 98.1 F 100 16 96 01/17/25 00:00 97.9 F 103 H 16 95/59 97 01/16/25 23:00 110 H 101/63 98 01/16/25 20:00 98 F 108 H 17 96/62 96 01/16/25 19:55 98.8 F 107 H 18 105/50 95 01/16/25 18:00 97.8 F 100 12 109/46 98 01/16/25 17:06 105 H 18 112/50 96 01/16/25 14:32 101 H 20 97/43 97 01/16/25 12:06 78 18 108/44 94 L 01/16/25 09:49 97.8 F 99 18 93 L Intake and Output 01/16/25 01/17/25 01/17/25 22:59 06:59 14:59 Intake Total 240 Output Total 200 900 450 Balance 40 -900 -450 Intake: Oral 240 Output: Urine 200 900 450 Other: # Bowel Movements 1 1 Weight 74.5 kg Patient is awake, comfortable, no distress Examination of the heart S1 and S2 Examination of the lungs bilateral breath sounds are heard Abdomen is soft nontender Examination of lower extremities shows no evidence of edema GEOLOGY INSTRUCTOR exam grossly intact Results - Lab Results Most recent lab results Calcium 7.3 mg/dL (8.4-10.2) L 01/15/25 23:03 Magnesium 1.9 mg/dL (1.6-2.3) 01/15/25 23:03 01/15/25 23:03 01/17/25 08:56 Assessment and Plan Assessment: 1. Acute kidney injury , non oliguric, likely prerenal, cr. on admission 2.5-> 2.8, she received IVF bolus and now on maintainance N/S @ 50 ml/hr. today's cr. is 1.7. UA is suggestive of UTI. baseline cr. ~1.2 2. UTI , she was started on IV ceftriaxone. urine cx grewing gram negative diane illi 3. acute left LE DVT, started on Eliquis 4. Anemia, iron deficiency 5. Hypnatremia, sodium level 129, improved to 136 post isotonic IVF Plan: continue maintenance IVF @ 50 ml/hr Encouraged PO hydration continue IV antibiotics, follow up urine culture start PO iron supplement
[2025-01-17 11:42] LABS: Glucose,Whole Blood 205 mg/dL (70-110)
[2025-01-17] MEDS: Apixaban Initiation Dose--VTE 5 MG TAB PO SCH (12:24)
[2025-01-17] MEDS: FERROUS SULFATE 325 MG TAB PO SCH (12:25)
--- NOTE | 2025-01-17 12:51 | P.PN ---
Subjective This is a pleasant 69 years old female with past medical history of multiple medical problems as below. She came from [facility] [place] for patient was found hypoxic with oxygen was in the 80s over the last 2 days. On admission patient was found to have hypotension 69/35. Patient received IV fluids, currently blood pressure 113/51. She is saturating 93% on 3 to 4 L via nasal cannula, she is afebrile. Labs showing WBC of 10.5, hemoglobin 9.5, sodium 129, creatinine 2.8 with baseline 1.2-1.5. Troponin is elevated 0.04 x 3, BNP is slightly high 2170. Venous ultrasound showing possible partial thrombus in the left popliteal vein with right leg negative for DVT. Chest x-ray read by radiologist as cardiomegaly with mild left pleural effusion, I reviewed chest x-ray by myself and agree with this finding was also there is possibility of pulmonary congestion. EKG showing sinus rhythm at [address]-T changes. Echocardiogram from 12/18/2024 showed ejection fraction of 45 to 50%. Urinalysis also was suspicious for UTI and patient was started on ceftriaxone 01/17 Patient feels better today She has little bit of chest pain and rib cage pain and little bit of stomach pain that comes and goes and thinks it has been ongoing for a while C. difficile came back negative and Imodium as needed is ordered Still has some diarrhea She has also mild epigastric tenderness She remains on ceftriaxone Normal Saline 50 mL also on Lovenox for her DVT aspirin and Plavix continued She is also on ceftriaxone No bloody bowel movement actually she does not have bowel movement yet but last night she had good bowel movement No vomiting. No significant abdominal pain Patient also anticoagulation switched to Eliquis Cardiology recommend to discontinue aspirin and continue Plavix Continue IV fluid. Midodrine is also added Review of systems HEMATOLOGICAL: Denies any bleeding or petechiae. GENITOURINARY: Denies any burning micturition, frequency, or urgency. MUSCULOSKELETAL/RHEUMATOLOGICAL: Denies any joint pain, swelling, or any muscle pain. ENDOCRINE: Denies any polyuria or polydipsia. Active Medications Generic Name Dose Route Start Last Admin Trade Name Freq PRN Reason Stop Dose Admin Acetaminophen 650 mg 01/16/25 01:48 01/16/25 02:28 Acetaminophen Tab 325 Mg Tab PO 650 mg Q6HR PRN Administration Mild Pain or Fever > 100.5 Apixaban 10 mg 01/17/25 10:00 01/17/25 12:24 Apixaban Initiation Dose--Vte 5 Mg Tab PO 02/16/25 08:59 10 mg BID FLO Administration Taper Atorvastatin Calcium 80 mg 01/16/25 21:00 01/16/25 23:03 Atorvastatin 80 Mg Tab PO 80 mg HS FLO Administration Clopidogrel Bisulfate 75 mg 01/16/25 09:00 01/17/25 09:11 Clopidogrel 75 Mg Tab PO 75 mg DAILY FLO Administration Famotidine 20 mg 01/16/25 21:00 01/17/25 09:12 Famotidine 20 Mg/2 Ml Vial IV 20 mg DAILY FLO Administration Ferrous Sulfate 325 mg 01/17/25 12:30 01/17/25 12:25 Ferrous Sulfate 325 Mg Tab PO 325 mg W/LUNCH FLO Administration Sodium Chloride 1,000 mls @ 50 mls/hr 01/16/25 01:45 01/16/25 23:05 Saline 0.9% IV 50 mls/hr .Q20H FLO Administration Lorazepam 0.5 mg 01/16/25 16:44 01/17/25 09:11 Lorazepam 0.5 Mg Tab PO 0.5 mg TID PRN Administration Anxiety Metoprolol Tartrate 12.5 mg 01/16/25 21:00 01/17/25 09:11 Metoprolol Tartrate 12.5 Mg Tab PO 12.5 mg BID@0900,2100 FLO Administration Midodrine 5 mg 01/17/25 12:30 01/17/25 09:11 Midodrine 5 Mg Tab PO 5 mg AC-TID FLO Administration Naloxone HCl 0.2 mg 01/16/25 01:48 Naloxone 0.4 Mg/Ml 1 Ml Vial IV Q2M PRN Opioid Reversal Ondansetron HCl 4 mg 01/16/25 16:43 01/17/25 04:48 Ondansetron 4 Mg/2 Ml Vial IVP 4 mg Q6HR PRN Administration Nausea And Vomiting Objective - Vital Signs Vital signs: Vital Signs Temp 97.9 F 01/17/25 08:00 Pulse 102 H 01/17/25 08:00 Resp 16 01/17/25 08:00 BP 110/64 01/17/25 08:00 Pulse Ox 96 01/17/25 04:00 FiO2 Intake & Output 01/16/25 01/17/25 01/17/25 18:59 06:59 18:59 Intake Total 240 240 Output Total 1100 450 Balance -860 -210 Weight 74.5 kg Intake: Oral 240 240 Output: Urine 1100 450 Other: # Bowel Movements 1 1 - Exam GENERAL: The patient is alert and oriented x3, not in any acute distress. Well developed, well nourished. HEENT: Pupils are round and equally reacting to light. EOMI. No scleral icterus. No conjunctival pallor. Normocephalic, atraumatic. No pharyngeal erythema. No thyromegaly. CARDIOVASCULAR: S1 and S2 present. No murmurs, rubs, or gallops. PULMONARY: Chest is clear to auscultation, no wheezing , no crackles. ABDOMEN: Soft, nontender, nondistended, normoactive bowel sounds. No palpable organomegaly. MUSCULOSKELETAL: No joint swelling or deformity. EXTREMITIES: No cyanosis, clubbing, or pedal edema. NEUROLOGICAL: Gross neurological examination did not reveal any focal deficits. SKIN: No rashes. no petechiae. - Labs CBC & Chem 7: 01/15/25 23:03 01/17/25 08:56 Labs: Abnormal Lab Results - Last 24 Hours (Table) 01/15/25 01/16/25 01/16/25 Range/Units 23:03 13:04 20:42 Sodium (137-145) mmol/L Chloride (98-107) mmol/L BUN (7-17) mg/dL Creatinine (0.52-1.04) mg/dL Glucose (74-99) mg/dL POC Glucose (mg/dL) 247 H 233 H (70-110) mg/dL Calcium (8.4-10.2) mg/dL Iron 24 L (65-175) UG/DL % Saturation 10.34 L (15.00-50.00) Transferrin 166.0 L (204.0-354.0) mg/dL Ferritin 432.0 H (22.0-322.0) ng/mL Vitamin B12 1584.0 H (200.0-944.0) pg/mL 01/17/25 01/17/25 Range/Units 05:33 08:56 Sodium 136 L (137-145) mmol/L Chloride 97 L (98-107) mmol/L BUN 49 H (7-17) mg/dL Creatinine 1.74 H (0.52-1.04) mg/dL Glucose 192 H (74-99) mg/dL POC Glucose (mg/dL) 156 H (70-110) mg/dL Calcium 8.2 L (8.4-10.2) mg/dL Iron (65-175) UG/DL % Saturation (15.00-50.00) Transferrin (204.0-354.0) mg/dL Ferritin (22.0-322.0) ng/mL Vitamin B12 (200.0-944.0) pg/mL Microbiology - Last 24 Hours (Table) 01/16/25 00:31 Urine Culture - Preliminary Urine,Voided Gram Neg Bacilli 01/15/25 23:19 Blood Culture - Preliminary Blood Assessment and Plan Assessment: Hypotension, improved Elevated troponin, secondary to renal and cardiac disease Acute urinary tract infection Acute left leg DVT suspected Mild acute systolic CHF with ejection fraction 45 to 50% Acute kidney injury on CKD stage III Bilateral leg pain with ultrasound showing possible partial thrombus in the left popliteal vein. Plan: Continue with normal saline Continue with ceftriaxone Follow-up urine culture Continue with Plavix. Discontinue aspirin Started on Eliquis Cardiology, pulmonary and nephrology team consult Check bladder scan Consult hematology service Labs and medication were reviewed.. Continue same treatment. Continue with symptomatic treatment. Resume home medication. Monitor labs and vitals. DVT and GI prophylaxis. Further recommendations as per clinical course of the patient DVT prophylaxis: Subcutaneous heparin Eliquis GI prophylaxis: pepcid PT/OT: From [facility] Prognosis is guarded
--- NOTE | 2025-01-17 14:21 | P.PN ---
Subjective Progress Note Date: 01/17/25 Principal diagnosis: Generalized weakness, urinary tract infection, acute kidney injury, and recurrent left pleural effusion, history of systolic congestive heart failure This is a 69-year-old female patient with multiple medical problems including diabetes mellitus, GERD, hypertension, hyperlipidemia, pulmonary embolism, hypothyroidism, myocardial infarction, coronary disease with previous stent placement, panic disorder, former smoker who was recently discharged from here on January 08, 2025 for hypotension. She was brought back again yesterday 01/15/2025 from [facility] with lethargy hypoxemia and hypotension. Chest x-ray reveals cardiomegaly with a mild left pleural effusion. Dopplers of the lower extremity revealed no DVT in the right. There is a thrombus within the left popliteal vein. Echocardiogram revealed preserved left ventricular systolic function with an ejection fraction 55 to 60%. White count 10.5. Hemoglobin 9.5. Platelets 186. Sodium 129. Potassium 4.3. Bicarb 25. BUN 64. Creatinine 2.81. Glucose 203. Troponin 0.043, 0.042, 0.045. proBNP 2170. Urinalysis with large leukocyte esterase and high WBCs and many bacteria. She is seen today in consultation in the emergency department. Currently sitting up on a stretcher. Awake and alert in no acute distress. Maintaining O2 saturations in the 90s on 3 L/min per nasal cannula. She has been afebrile. Hemodynamically stable. Seen today on 01/17/2025, patient denies any shortness of breath, denies any chest pain, feeling better compared to how she felt yesterday. Her repeat echocardiogram showed improvement in her LV function ejection fraction is up to 55% with trace of pericardial effusion. Basic metabolic profile is normal bicarb is normal BUN is 49 creatinine 1.74, improved compared to yesterday's creatinine. Patient has some vague stomach discomfort. And she has a bit of diarrhea. She has been on ceftriaxone, and she is also on midodrine. Remains on Eliquis. Venous Doppler is suspicious for DVT, it was relatively difficult study according to the apprentice technician, yesterday I recommended Lovenox at 80 mg subcu daily, today am recommending that the patient goes on Eliquis. She should have repeat venous Doppler in the next few weeks. Objective - Vital Signs Vital signs: Vital Signs Temp 97.9 F 01/17/25 08:00 Pulse 95 01/17/25 12:00 Resp 16 01/17/25 12:00 BP 108/68 01/17/25 12:00 Pulse Ox 98 01/17/25 12:00 FiO2 Intake & Output 01/16/25 01/17/25 01/17/25 18:59 06:59 18:59 Intake Total 240 240 Output Total 1100 450 Balance -860 -210 Weight 74.5 kg Intake: Oral 240 240 Output: Urine 1100 450 Other: # Bowel Movements 1 1 - Exam GENERAL EXAM: Alert, weak 69-year-old female, on 3 L nasal cannula, fairly comfortable in no apparent distress. O2 saturation 98% HEAD: Normocephalic. EYES: Normal reaction of pupils, equal size. NOSE: Clear with pink turbinates. THROAT: No erythema or exudates. NECK: No masses, no JVD. CHEST: No chest wall deformity. LUNGS: Equal air entry with crackles in the left lung base. CVS: S1 and S2 normal with no audible murmur, regular rhythm. ABDOMEN: No hepatosplenomegaly, normal bowel sounds, no guarding or rigidity. SKIN: No rashes CENTRAL NERVOUS SYSTEM: No focal deficits, tone is normal in all 4 extremities. EXTREMITIES: There is 1+ peripheral edema. No clubbing, no cyanosis. Peripheral pulses are intact. - Labs CBC & Chem 7: 01/15/25 23:03 01/17/25 08:56 Labs: Abnormal Lab Results - Last 24 Hours (Table) 01/15/25 01/16/25 01/17/25 Range/Units 23:03 20:42 05:33 Sodium (137-145) mmol/L Chloride (98-107) mmol/L BUN (7-17) mg/dL Creatinine (0.52-1.04) mg/dL Glucose (74-99) mg/dL POC Glucose (mg/dL) 233 H 156 H (70-110) mg/dL Calcium (8.4-10.2) mg/dL Iron 24 L (65-175) UG/DL % Saturation 10.34 L (15.00-50.00) Transferrin 166.0 L (204.0-354.0) mg/dL Ferritin 432.0 H (22.0-322.0) ng/mL Vitamin B12 1584.0 H (200.0-944.0) pg/mL 01/17/25 01/17/25 Range/Units 08:56 11:40 Sodium 136 L (137-145) mmol/L Chloride 97 L (98-107) mmol/L BUN 49 H (7-17) mg/dL Creatinine 1.74 H (0.52-1.04) mg/dL Glucose 192 H (74-99) mg/dL POC Glucose (mg/dL) 205 H (70-110) mg/dL Calcium 8.2 L (8.4-10.2) mg/dL Iron (65-175) UG/DL % Saturation (15.00-50.00) Transferrin (204.0-354.0) mg/dL Ferritin (22.0-322.0) ng/mL Vitamin B12 (200.0-944.0) pg/mL Microbiology - Last 24 Hours (Table) 01/16/25 00:31 Urine Culture - Preliminary Urine,Voided Gram Neg Bacilli 01/15/25 23:19 Blood Culture - Preliminary Blood Assessment and Plan Assessment: Impression: Generalized weakness secondary to suspected urinary tract infection Urinary tract infection Leukocytosis secondary to above Acute kidney injury secondary to above Hyponatremia Diabetes mellitus with hyperglycemia Possible acute versus chronic left lower extremity DVT Recurrent left pleural effusion with previous thoracentesis on 12/20/2024, negative for malignancy Hypoxic respiratory failure secondary to above Coronary artery disease with previous stent placement History of systolic congestive heart failure with ejection fraction of 45% 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 pulmonary embolism, venous Doppler is suspicious for acute versus chronic DVT and send recommending Eliquis. Hypertension Hyperlipidemia Anemia of chronic disease Chronic kidney disease stage III Hypothyroidism Poor gait function with frequent falls Former smoker Poor overall functional performance based on the above-mentioned multiple comorb idities currently in an ECF Recommendation: Continue present supportive care measures Continue Eliquis Antibiotics as per admitting physician for UTI/presumptive, patient has gram- negative bacilli in the urine No need for thoracentesis based on her chest x-ray findings fluid previously was transudative in nature Will continue to follow Time with Patient: Less than 30
[2025-01-17 16:14] LABS: Glucose,Whole Blood 212 mg/dL (70-110)
[2025-01-17 19:54] LABS: Glucose,Whole Blood 278 mg/dL (70-110)
[2025-01-17] MEDS ORDERED: DEXTROSE 50% SYRINGE 50 ML IVP PRN ×2 (21:34)
[2025-01-17 22:38] LABS: Glucose,Whole Blood 258 mg/dL (70-110)
[2025-01-17] MEDS: INSULIN LISPRO (HumaLOG) 100 UNIT/ML 10 mL VL SQ SCH (22:46)
[2025-01-18 06:04] LABS: Glucose,Whole Blood 210 mg/dL (70-110)
[2025-01-18 07:35] LABS: Basophils # (A) 0.04 10*3/uL (0.00-0.10); Basophils % (A) 0.5 %; Eosinophils # (A) 0.17 10*3/uL (0.04-0.35); Eosinophils % (A) 1.9 %; HGB 9.5 g/dL (12.0-15.0); MCH 24.7 pg (27.0-32.0); MCHC 29.7 g/dL (32.0-37.0); MCV 83.1 fL (80.0-97.0); Mean Platelet Volume 11.8 fL (9.5-12.2); Monocytes # (A) 0.84 10*3/uL (0.20-1.00); Monocytes % (A) 9.5 %; Neutrophils # (A) 6.95 10*3/uL (1.80-7.70); Neutrophils % (A) 78.6 %; Platelet Count 191 10*3/uL (140-440); RBC 3.85 10*6/uL (4.10-5.20); RDW 20.5 % (11.5-14.5); WBC 8.84 10*3/uL (4.50-10.00)
[2025-01-18 08:26] LABS: African American GFR (CKD) 55 (>60 ml/min/1.73 sqM); Anion Gap 12 mmol/L; Blood Urea Nitrogen 33 mg/dL (7-17); Calcium 8.4 mg/dL (8.4-10.2); Carbon Dioxide 24 mmol/L (22-30); Chloride 101 mmol/L (98-107); Glucose 189 mg/dL (74-99); Non-African American GFR(CKD) 48 (>60 ml/min/1.73 sqM); Potassium 3.3 mmol/L (3.5-5.1); Sodium 137 mmol/L (137-145)
--- NOTE | 2025-01-18 09:34 | P.PN ---
Subjective Progress Note Date: 01/18/25 following for LIAM patient seen today, resting in bed, no new complaints. stable vitals, making urine Objective - Vital Signs Vital signs: Vital Signs Temp 97.8 F 01/18/25 04:00 Pulse 97 01/18/25 04:00 Resp 16 01/18/25 04:00 BP 107/63 01/18/25 04:00 Pulse Ox 96 01/18/25 04:00 FiO2 Intake & Output 01/17/25 01/18/25 01/18/25 18:59 06:59 18:59 Intake Total 480 240 Output Total 1050 750 Balance -570 -750 240 Intake: Oral 480 240 Output: Urine 1050 750 Other: # Voids 1 # Bowel Movements 1 - Exam Patient is awake, comfortable, no distress Examination of the heart S1 and S2 Examination of the lungs bilateral breath sounds are heard Abdomen is soft nontender Examination of lower extremities shows no evidence of edema SEAT TRIMMER exam grossly intact - Labs CBC & Chem 7: 01/18/25 07:14 01/18/25 07:14 Labs: Abnormal Lab Results - Last 24 Hours (Table) 01/17/25 01/17/25 01/17/25 Range/Units 08:56 11:40 16:12 RBC (4.10-5.20) 10*6/uL Hgb (12.0-15.0) g/dL Hct (37.2-46.3) % MCH (27.0-32.0) pg MCHC (32.0-37.0) g/dL Lymphocytes # (0.90-5.00) 10*3/uL Sodium 136 L (137-145) mmol/L Potassium (3.5-5.1) mmol/L Chloride 97 L (98-107) mmol/L BUN 49 H (7-17) mg/dL Creatinine 1.74 H (0.52-1.04) mg/dL Glucose 192 H (74-99) mg/dL POC Glucose (mg/dL) 205 H 212 H (70-110) mg/dL Calcium 8.2 L (8.4-10.2) mg/dL 01/17/25 01/17/25 01/18/25 Range/Units 19:53 22:35 06:01 RBC (4.10-5.20) 10*6/uL Hgb (12.0-15.0) g/dL Hct (37.2-46.3) % MCH (27.0-32.0) pg MCHC (32.0-37.0) g/dL Lymphocytes # (0.90-5.00) 10*3/uL Sodium (137-145) mmol/L Potassium (3.5-5.1) mmol/L Chloride (98-107) mmol/L BUN (7-17) mg/dL Creatinine (0.52-1.04) mg/dL Glucose (74-99) mg/dL POC Glucose (mg/dL) 278 H 258 H 210 H (70-110) mg/dL Calcium (8.4-10.2) mg/dL 01/18/25 01/18/25 Range/Units 07:14 07:14 RBC 3.85 L (4.10-5.20) 10*6/uL Hgb 9.5 L (12.0-15.0) g/dL Hct 32.0 L (37.2-46.3) % MCH 24.7 L (27.0-32.0) pg MCHC 29.7 L (32.0-37.0) g/dL Lymphocytes # 0.80 L (0.90-5.00) 10*3/uL Sodium (137-145) mmol/L Potassium 3.3 L (3.5-5.1) mmol/L Chloride (98-107) mmol/L BUN 33 H (7-17) mg/dL Creatinine 1.16 H (0.52-1.04) mg/dL Glucose 189 H (74-99) mg/dL POC Glucose (mg/dL) (70-110) mg/dL Calcium (8.4-10.2) mg/dL Microbiology - Last 24 Hours (Table) 01/15/25 23:19 Blood Culture - Preliminary Blood 01/16/25 00:31 Urine Culture - Preliminary Urine,Voided Gram Neg Bacilli Assessment and Plan Assessment: 1. Acute kidney injury , non oliguric, likely prerenal, cr. on admission 2.5-> 2.8, she received IVF bolus and now on maintainance N/S @ 50 ml/hr. today's cr. is 1.7. UA is suggestive of UTI. baseline cr. ~1.2, cr. today 1.1 2. UTI , she was started on IV ceftriaxone. urine cx grewing gram negative b acilli 3. acute left LE DVT, started on Eliquis 4. Anemia, iron deficiency 5. Hypnatremia, sodium level 129, improved to 136 post isotonic IVF 6. Hyponatremia, mild Plan: LIAM resolved, can discontinue maintenance IVF @ 50 ml/hr potassium supplement as needed, ordered 40 meq PO Encouraged PO hydration continue IV antibiotics, follow up urine culture continue PO iron supplement
--- NOTE | 2025-01-18 09:51 | P.PN ---
Subjective HISTORY OF PRESENT ILLNESS: This is a 69-year-old female with a past medical history significant for coronary artery disease with multivessel PCI, hypertension, hyperlipidemia, diabetes, former nicotine dependence, and GI bleeding. Patient follows in the office with Dr. Babcock. We have been asked to see the patient in consultation for congestive heart failure. Patient examined at the bedside in the emergency room. Patient was brought to the hospital from [facility] secondary to lethargy and hypotension. Patient currently denies having any chest pain or pressure. She denies any shortness of breath. Patient was found to have acute kidney injury with a creatinine of 2.81. DIAGNOSTICS: - EKG reveals sinus mechanism with baseline artifact - Chest xray mild left pleural effusion - Laboratory data: WBC 10.59. Hemoglobin 9.5. Platelet count 186. Sodium 129. Potassium 4.3. BUN 64. Creatinine 2.81. proBNP 2170. Troponin 0.043. 0.04 2. 0.045. - Current home cardiac medication list has not been updated at the time of this examination - Most recent echocardiogram obtained in January 2025 revealing ejection fraction 40% with small pericardial effusion - Cardiac catheterization history: October 2024 revealing LAD stented widely patent, circumflex with previous mid LAD stent jailed OM with good flow RCA with mid lesion and diffuse disease with heavy calcifications. PCI to the RCA with 3 stents. 01/17/2025 Patient examined this morning at the bedside. Patient currently denies any chest pain or pressure. She denies any shortness of breath creatinine improved today to 1.74. Blood pressures remain low in the 90s. Echocardiogram completed revealing ejection fraction 55 to 60% with trace pericardial effusion 01/18/2025 Patient examined this morning to bedside. Patient currently denies any chest pain or pressure. She denies any shortness of breath. Vital signs are stable. Patient's creatinine yesterday 1.74. Repeat labs this morning are currently pending. Blood pressure has improved with initiation of midodrine yesterday. PHYSICAL EXAM: VITAL SIGNS: Reviewed. GENERAL: Well-developed in no acute distress. HEENT: Head is normocephalic. Pupils are equal, round. Sclerae anicteric. Mucous membranes of the mouth are moist. Neck supple. No JVD or thyromegaly LUNGS: Respirations even and unlabored. Lungs essentially clear to auscultation bilaterally. HEART: Regular rate and rhythm. S1 and S2 heard. ABDOMEN: Soft. Nondistended. Nontender. EXTREMITIES: Normal range of motion. No clubbing or cyanosis. Peripheral pulses intact. No lower extremity edema NEUROLOGIC: Awake and alert. Oriented x 3. ASSESSMENT: Hypotension Acute kidney injury Small pericardial effusion, noted on echo 01/2025, repeat echo this admission reveals trace pericardial effusion Coronary artery disease with previous stenting, most recently in October 2024 to the RCA with 3 stents Ischemic cardiomyopathy, 40% Chronic heart failure with reduced EF, not in acute exacerbation Hypertension Hyperlipidemia Diabetes Former nicotine dependence History of GI bleeding Acute DVT PLAN: Patient has been started on Eliquis for lower extremity DVT. Aspirin discontinued. Continue Plavix 75 mg daily Continue midodrine 5 mg 3 times daily for hypotension Continue current dose of metoprolol Continue to hold nephrotoxic agents Continue to monitor kidney function. Awaiting labs from this morning. Further recommendations pending patient course Nurse practitioner note has been reviewed by physician. Signing provider agrees with the documented findings, assessment, and plan of care documented by FILM READER as a scribe. Objective - Vital Signs Vital signs: Vital Signs Temp 97.8 F 01/18/25 04:00 Pulse 98 01/18/25 08:00 Resp 16 01/18/25 08:00 BP 121/71 01/18/25 08:00 Pulse Ox 96 01/18/25 08:00 FiO2 Intake & Output 01/17/25 01/18/25 01/18/25 18:59 06:59 18:59 Intake Total 480 240 Output Total 1050 750 Balance -570 -750 240 Intake: Oral 480 240 Output: Urine 1050 750 Other: # Voids 1 # Bowel Movements 1 - Labs CBC & Chem 7: 01/18/25 07:14 01/18/25 07:14 Labs: Abnormal Lab Results - Last 24 Hours (Table) 01/17/25 01/17/25 01/17/25 Range/Units 11:40 16:12 19:53 RBC (4.10-5.20) 10*6/uL Hgb (12.0-15.0) g/dL Hct (37.2-46.3) % MCH (27.0-32.0) pg MCHC (32.0-37.0) g/dL Lymphocytes # (0.90-5.00) 10*3/uL Potassium (3.5-5.1) mmol/L BUN (7-17) mg/dL Creatinine (0.52-1.04) mg/dL Glucose (74-99) mg/dL POC Glucose (mg/dL) 205 H 212 H 278 H (70-110) mg/dL 01/17/25 01/18/25 01/18/25 Range/Units 22:35 06:01 07:14 RBC (4.10-5.20) 10*6/uL Hgb (12.0-15.0) g/dL Hct (37.2-46.3) % MCH (27.0-32.0) pg MCHC (32.0-37.0) g/dL Lymphocytes # (0.90-5.00) 10*3/uL Potassium 3.3 L (3.5-5.1) mmol/L BUN 33 H (7-17) mg/dL Creatinine 1.16 H (0.52-1.04) mg/dL Glucose 189 H (74-99) mg/dL POC Glucose (mg/dL) 258 H 210 H (70-110) mg/dL 01/18/25 Range/Units 07:14 RBC 3.85 L (4.10-5.20) 10*6/uL Hgb 9.5 L (12.0-15.0) g/dL Hct 32.0 L (37.2-46.3) % MCH 24.7 L (27.0-32.0) pg MCHC 29.7 L (32.0-37.0) g/dL Lymphocytes # 0.80 L (0.90-5.00) 10*3/uL Potassium (3.5-5.1) mmol/L BUN (7-17) mg/dL Creatinine (0.52-1.04) mg/dL Glucose (74-99) mg/dL POC Glucose (mg/dL) (70-110) mg/dL Microbiology - Last 24 Hours (Table) 01/15/25 23:19 Blood Culture - Preliminary Blood 01/16/25 00:31 Urine Culture - Preliminary Urine,Voided Gram Neg Bacilli
[2025-01-18 11:19] LABS: Glucose,Whole Blood 264 mg/dL (70-110)
[2025-01-18] MEDS: POTASSIUM CHLORIDE ER 20 MEQ TAB.ER PO STA (12:18)
[2025-01-18] MEDS: METOCLOPRAMIDE 5 MG/ML 2 ML VIAL IVP PRN (13:50)
[2025-01-18] MEDS: PANTOPRAZOLE 40 MG/10 ML VIAL IVP SCH (13:50)
--- NOTE | 2025-01-18 14:11 | P.PN ---
Subjective This is a pleasant 69 years old female with past medical history of multiple medical problems as below. She came from [facility] for patient was found hypoxic with oxygen was in the 80s over the last 2 days. On admission patient was found to have hypotension 69/35. Patient received IV fluids, currently blood pressure 113/51. She is saturating 93% on 3 to 4 L via nasal cannula, she is afebrile. Labs showing WBC of 10.5, hemoglobin 9.5, sodium 129, creatinine 2.8 with baseline 1.2-1.5. Troponin is elevated 0.04 x 3, BNP is slightly high 2170. Venous ultrasound showing possible partial thrombus in the left popliteal vein with right leg negative for DVT. Chest x-ray read by radiologist as cardiomegaly with mild left pleural effusion, I reviewed chest x-ray by myself and agree with this finding was also there is possibility of pulmonary congestion. EKG showing sinus rhythm at [address]-T changes. Echocardiogram from 12/18/2024 showed ejection fraction of 45 to 50%. Urinalysis also was suspicious for UTI and patient was started on ceftriaxone 01/17 Patient feels better today She has little bit of chest pain and rib cage pain and little bit of stomach pain that comes and goes and thinks it has been ongoing for a while C. difficile came back negative and Imodium as needed is ordered Still has some diarrhea She has also mild epigastric tenderness She remains on ceftriaxone Normal Saline 50 mL also on Lovenox for her DVT aspirin and Plavix continued She is also on ceftriaxone No bloody bowel movement actually she does not have bowel movement yet but last night she had good bowel movement No vomiting. No significant abdominal pain Patient also anticoagulation switched to Eliquis Cardiology recommend to discontinue aspirin and continue Plavix Continue IV fluid. Midodrine is also added 01/18 Patient sitting in chair awake alert looks tired and mildly pale She is complaining from stomach upset with nausea that prevents her from eating, no significant tenderness or rebound tenderness although she has mild tenderness with pain Will change Pepcid to Protonix also will add Reglan to her Zofran. Patient counseled about medication and atorvastatin and they are in agreement Blood pressure stable no chest pain No urinary symptoms She remains on therapeutic dose of Eliquis for a year acute left leg DVT Creatinine improved significantly down to 1.1 Currently she is off IV fluid on Rocephin and her home dose of Tello Daughter at bedside and all questions answered to satisfaction. Discussed with staff as well Active Medications Generic Name Dose Route Start Last Admin Trade Name Ernestina PRN Reason Stop Dose Admin Acetaminophen 650 mg 01/16/25 01:48 01/18/25 13:52 Acetaminophen Tab 325 Mg Tab PO 650 mg Q6HR PRN Administration Mild Pain or Fever > 100.5 Apixaban 10 mg 01/17/25 10:00 01/18/25 09:28 Apixaban Initiation Dose--Vte 5 Mg Tab PO 02/16/25 08:59 10 mg BID FLO Administration Taper Atorvastatin Calcium 80 mg 01/16/25 21:00 01/17/25 21:14 Atorvastatin 80 Mg Tab PO 80 mg HS FLO Administration Clopidogrel Bisulfate 75 mg 01/16/25 09:00 01/18/25 09:28 Clopidogrel 75 Mg Tab PO 75 mg DAILY FLO Administration Dextrose/Water 25 ml 01/17/25 21:34 Dextrose 50% Syringe 50 Ml IVP PER PROTOCOL PRN Hypoglycemia Protocol Dextrose/Water 50 ml 01/17/25 21:34 Dextrose 50% Syringe 50 Ml IVP PER PROTOCOL PRN Hypoglycemia Protocol Ferrous Sulfate 325 mg 01/17/25 12:30 01/18/25 09:28 Ferrous Sulfate 325 Mg Tab PO 325 mg W/LUNCH FLO Administration Ceftriaxone Sodium 2 gm/ 50 mls @ 100 mls/hr 01/17/25 15:00 01/18/25 13:51 Sodium Chloride IVPB 100 mls/hr Q24H FLO Administration Protocol Insulin Human Lispro 0 unit 01/17/25 21:35 01/18/25 12:18 Insulin Lispro (Humalog) 100 Unit/Ml 10 Ml Vl SQ Not Given ACHS FLO Protocol Lorazepam 0.5 mg 01/16/25 16:44 01/18/25 09:28 Lorazepam 0.5 Mg Tab PO 0.5 mg TID PRN Administration Anxiety Metoclopramide HCl 5 mg 01/18/25 13:42 01/18/25 13:50 Metoclopramide 5 Mg/Ml 2 Ml Vial IVP 5 mg Q6HR PRN Administration Nausea And Vomiting Metoprolol Tartrate 12.5 mg 01/16/25 21:00 01/18/25 09:28 Metoprolol Tartrate 12.5 Mg Tab PO 12.5 mg BID@0900,2100 FLO Administration Midodrine 5 mg 01/17/25 12:30 01/18/25 12:18 Midodrine 5 Mg Tab PO 5 mg AC-TID FLO Administration Naloxone HCl 0.2 mg 01/16/25 01:48 Naloxone 0.4 Mg/Ml 1 Ml Vial IV Q2M PRN Opioid Reversal Ondansetron HCl 4 mg 01/16/25 16:43 01/17/25 21:14 Ondansetron 4 Mg/2 Ml Vial IVP 4 mg Q6HR PRN Administration Nausea And Vomiting Pantoprazole Sodium 40 mg 01/18/25 13:45 01/18/25 13:50 Pantoprazole 40 Mg/10 Ml Vial IVP 40 mg DAILY FLO Administration Objective - Vital Signs Vital signs: Vital Signs Temp 97.8 F 01/18/25 04:00 Pulse 95 01/18/25 12:00 Resp 16 01/18/25 12:00 BP 118/69 01/18/25 12:00 Pulse Ox 96 01/18/25 12:00 FiO2 Intake & Output 01/17/25 01/18/25 01/18/25 18:59 06:59 18:59 Intake Total 480 780 Output Total 1050 750 450 Balance -570 -750 330 Intake: Oral 480 780 Output: Urine 1050 750 450 Other: # Voids 1 # Bowel Movements 1 2 - Exam GENERAL: The patient is alert and oriented x3, not in any acute distress. Well developed, well nourished. HEENT: Pupils are round and equally reacting to light. EOMI. No scleral icterus. No conjunctival pallor. Normocephalic, atraumatic. No pharyngeal erythema. No thyromegaly. CARDIOVASCULAR: S1 and S2 present. No murmurs, rubs, or gallops. PULMONARY: Chest is clear to auscultation, no wheezing , no crackles. ABDOMEN: Soft, nontender, nondistended, normoactive bowel sounds. No palpable organomegaly. MUSCULOSKELETAL: No joint swelling or deformity. EXTREMITIES: No cyanosis, clubbing, or pedal edema. NEUROLOGICAL: Gross neurological examination did not reveal any focal deficits. SKIN: No rashes. no petechiae. - Labs CBC & Chem 7: 01/18/25 07:14 01/18/25 07:14 Labs: Abnormal Lab Results - Last 24 Hours (Table) 01/17/25 01/17/25 01/17/25 Range/Units 16:12 19:53 22:35 RBC (4.10-5.20) 10*6/uL Hgb (12.0-15.0) g/dL Hct (37.2-46.3) % MCH (27.0-32.0) pg MCHC (32.0-37.0) g/dL Lymphocytes # (0.90-5.00) 10*3/uL Potassium (3.5-5.1) mmol/L BUN (7-17) mg/dL Creatinine (0.52-1.04) mg/dL Glucose (74-99) mg/dL POC Glucose (mg/dL) 212 H 278 H 258 H (70-110) mg/dL 01/18/25 01/18/25 01/18/25 Range/Units 06:01 07:14 07:14 RBC 3.85 L (4.10-5.20) 10*6/uL Hgb 9.5 L (12.0-15.0) g/dL Hct 32.0 L (37.2-46.3) % MCH 24.7 L (27.0-32.0) pg MCHC 29.7 L (32.0-37.0) g/dL Lymphocytes # 0.80 L (0.90-5.00) 10*3/uL Potassium 3.3 L (3.5-5.1) mmol/L BUN 33 H (7-17) mg/dL Creatinine 1.16 H (0.52-1.04) mg/dL Glucose 189 H (74-99) mg/dL POC Glucose (mg/dL) 210 H (70-110) mg/dL 01/18/25 Range/Units 11:17 RBC (4.10-5.20) 10*6/uL Hgb (12.0-15.0) g/dL Hct (37.2-46.3) % MCH (27.0-32.0) pg MCHC (32.0-37.0) g/dL Lymphocytes # (0.90-5.00) 10*3/uL Potassium (3.5-5.1) mmol/L BUN (7-17) mg/dL Creatinine (0.52-1.04) mg/dL Glucose (74-99) mg/dL POC Glucose (mg/dL) 264 H (70-110) mg/dL Microbiology - Last 24 Hours (Table) 01/16/25 00:31 Urine Culture - Final Urine,Voided Klebsiella pneumoniae 01/15/25 23:19 Blood Culture - Preliminary Blood Assessment and Plan Assessment: Epigastric pain suspicious for gastritis with nausea Acute urinary tract infection Acute left leg DVT suspected Mild acute systolic CHF with ejection fraction 45 to 50% Hypotension, improved Elevated troponin, secondary to renal and cardiac disease Acute kidney injury on CKD stage III, improved Bilateral leg pain with ultrasound showing possible partial thrombus in the left popliteal vein. Acute DVT on anticoagulation Plan: Continue with ceftriaxone Continue with Protonix. Add Zofran and Reglan as needed Continue with Plavix. Discontinue aspirin Started on Eliquis Cardiology, pulmonary and nephrology team consult Check bladder scan Consult hematology service Labs and medication were reviewed.. Continue same treatment. Continue with symptomatic treatment. Resume home medication. Monitor labs and vitals. DVT and GI prophylaxis. Further recommendations as per clinical course of the patient DVT prophylaxis: Subcutaneous heparin Eliquis GI prophylaxis: Protonix PT/OT: From [facility] Prognosis is guarded
--- NOTE | 2025-01-18 15:10 | P.PN ---
Subjective Progress Note Date: 01/18/25 This is a 69-year-old female patient with multiple medical problems including diabetes mellitus, GERD, hypertension, hyperlipidemia, pulmonary embolism, hypothyroidism, myocardial infarction, coronary disease with previous stent placement, panic disorder, former smoker who was recently discharged from here on January 08, 2025 for hypotension. She was brought back again yesterday 01/15/2025 from [facility] with lethargy hypoxemia and hypotension. Chest x-ray reveals cardiomegaly with a mild left pleural effusion. Dopplers of the lower extremity revealed no DVT in the right. There is a thrombus within the left popliteal vein. Echocardiogram revealed preserved left ventricular systolic function with an ejection fraction 55 to 60%. White count 10.5. Hemoglobin 9.5. Platelets 186. Sodium 129. Potassium 4.3. Bicarb 25. BUN 64. Creatinine 2.81. Glucose 203. Troponin 0.043, 0.042, 0.045. proBNP 2170. Urinalysis with large leukocyte esterase and high WBCs and many bacteria. She is seen today in consultation in the emergency department. Currently sitting up on a stretcher. Awake and alert in no acute distress. Maintaining O2 saturations in the 90s on 3 L/min per nasal cannula. She has been afebrile. Hemodynamically stable. Seen today on 01/17/2025, patient denies any shortness of breath, denies any chest pain, feeling better compared to how she felt yesterday. Her repeat echocardiogram showed improvement in her LV function ejection fraction is up to 55% with trace of pericardial effusion. Basic metabolic profile is normal bicarb is normal BUN is 49 creatinine 1.74, improved compared to yesterday's creatinine. Patient has some vague stomach discomfort. And she has a bit of diarrhea. She has been on ceftriaxone, and she is also on midodrine. Remains on Eliquis. Venous Doppler is suspicious for DVT, it was relatively difficult study according to the digital imaging technician, yesterday I recommended Lovenox at 80 mg subcu daily, today am recommending that the patient goes on Eliquis. She should have repeat venous Doppler in the next few weeks. The patient is seen today January 18, 2025 in follow-up on the selective care unit. She is currently sitting up in a chair at the bedside. Awake and alert in no acute distress. Maintaining O2 saturations in the 90s on 3 L/min per nasal cannula. Urine culture was positive for Klebsiella pneumoniae. Blood culture revealed no growth. White count 8.8. Hemoglobin 9.5. Platelets 191. Sodium 137. Potassium 3.3. Bicarb 24. BUN 33. Creatinine 1.13. Glucose 189. She remains on ceftriaxone. Anticoagulated with Eliquis. Ativan as needed for anxiety. Objective - Vital Signs Vital signs: Vital Signs Temp 97.8 F 01/18/25 04:00 Pulse 95 01/18/25 12:00 Resp 16 01/18/25 12:00 BP 118/69 01/18/25 12:00 Pulse Ox 96 01/18/25 12:00 FiO2 Intake & Output 01/17/25 01/18/25 01/18/25 18:59 06:59 18:59 Intake Total 480 780 Output Total 1050 750 450 Balance -570 -750 330 Intake: Oral 480 780 Output: Urine 1050 750 450 Other: # Voids 1 # Bowel Movements 1 2 - Exam GENERAL EXAM: Alert, 69-year-old female, on 3 L nasal cannula, comfortable in no apparent distress. HEAD: Normocephalic. EYES: Normal reaction of pupils, equal size. NOSE: Clear with pink turbinates. THROAT: No erythema or exudates. NECK: No masses, no JVD. CHEST: No chest wall deformity. LUNGS: Equal air entry with no crackles, wheeze, rhonchi or dullness. CVS: S1 and S2 normal with no audible murmur, regular rhythm. ABDOMEN: No hepatosplenomegaly, normal bowel sounds, no guarding or rigidity. SPINE: No scoliosis or deformity SKIN: No rashes CENTRAL NERVOUS SYSTEM: No focal deficits, tone is normal in all 4 extremities. EXTREMITIES: There is no peripheral edema. No clubbing, no cyanosis. Peripheral pulses are intact. - Labs CBC & Chem 7: 01/18/25 07:14 01/18/25 07:14 Labs: Abnormal Lab Results - Last 24 Hours (Table) 01/17/25 01/17/25 01/17/25 Range/Units 16:12 19:53 22:35 RBC (4.10-5.20) 10*6/uL Hgb (12.0-15.0) g/dL Hct (37.2-46.3) % MCH (27.0-32.0) pg MCHC (32.0-37.0) g/dL Lymphocytes # (0.90-5.00) 10*3/uL Potassium (3.5-5.1) mmol/L BUN (7-17) mg/dL Creatinine (0.52-1.04) mg/dL Glucose (74-99) mg/dL POC Glucose (mg/dL) 212 H 278 H 258 H (70-110) mg/dL 01/18/25 01/18/25 01/18/25 Range/Units 06:01 07:14 07:14 RBC 3.85 L (4.10-5.20) 10*6/uL Hgb 9.5 L (12.0-15.0) g/dL Hct 32.0 L (37.2-46.3) % MCH 24.7 L (27.0-32.0) pg MCHC 29.7 L (32.0-37.0) g/dL Lymphocytes # 0.80 L (0.90-5.00) 10*3/uL Potassium 3.3 L (3.5-5.1) mmol/L BUN 33 H (7-17) mg/dL Creatinine 1.16 H (0.52-1.04) mg/dL Glucose 189 H (74-99) mg/dL POC Glucose (mg/dL) 210 H (70-110) mg/dL 01/18/25 Range/Units 11:17 RBC (4.10-5.20) 10*6/uL Hgb (12.0-15.0) g/dL Hct (37.2-46.3) % MCH (27.0-32.0) pg MCHC (32.0-37.0) g/dL Lymphocytes # (0.90-5.00) 10*3/uL Potassium (3.5-5.1) mmol/L BUN (7-17) mg/dL Creatinine (0.52-1.04) mg/dL Glucose (74-99) mg/dL POC Glucose (mg/dL) 264 H (70-110) mg/dL Microbiology - Last 24 Hours (Table) 01/16/25 00:31 Urine Culture - Final Urine,Voided Klebsiella pneumoniae 01/15/25 23:19 Blood Culture - Preliminary Blood Assessment and Plan Assessment: Generalized weakness secondary to suspected urinary tract infection Urinary tract infection secondary to Klebsiella pneumoniae remains on ceftriaxone Leukocytosis secondary to above Acute kidney injury secondary to above Hyponatremia Diabetes mellitus with hyperglycemia Possible acute versus chronic left lower extremity DVT, anticoagulated with Eliquis Recurrent left pleural effusion with previous thoracentesis on 12/20/2024, negative for malignancy Hypoxic respiratory failure secondary to above Coronary artery disease with previous stent placement History of systolic congestive heart failure with ejection fraction of 45% 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 pulmonary embolism Hypertension Hyperlipidemia Anemia of chronic disease Chronic kidney disease stage III Hypothyroidism Poor gait function with frequent falls Former smoker Poor overall functional performance based on the above-mentioned multiple comorbidities currently in an ECF Plan: The patient was seen and evaluated Labs and medications reviewed Microbiology reviewed Doppler of the lower extremities reviewed Remains on Eliquis Titrate the FiO2 as tolerated Stable on 3 L/min per nasal cannula We will continue to follow I have personally seen and examined the patient, performed the documentation and the assessment and plan as written. Number of minutes spent on the visit: 10 Dictation was produced using [employer] dictation software. Please excuse any grammatical, word or spelling errors.
[2025-01-18 16:38] LABS: Glucose,Whole Blood 253 mg/dL (70-110)
[2025-01-18 20:15] LABS: Glucose,Whole Blood 364 mg/dL (70-110)
[2025-01-19 05:25] LABS: Methylmalonic Acid 0.49 umol/L (<0.40)
[2025-01-19 06:07] LABS: Glucose,Whole Blood 338 mg/dL (70-110)
[2025-01-19 06:14] LABS: African American GFR (CKD) 53 (>60 ml/min/1.73 sqM); Anion Gap 10 mmol/L; Blood Urea Nitrogen 30 mg/dL (7-17); Calcium 8.4 mg/dL (8.4-10.2); Carbon Dioxide 28 mmol/L (22-30); Chloride 99 mmol/L (98-107); Glucose 322 mg/dL (74-99); Non-African American GFR(CKD) 46 (>60 ml/min/1.73 sqM); Potassium 3.9 mmol/L (3.5-5.1); Sodium 137 mmol/L (137-145)
[2025-01-19] MEDS ORDERED: CALCIUM CARBONATE 500 MG CHEWABLE PO PRN (11:11)
[2025-01-19] MEDS ORDERED: polyethylene glycoL 3350 17 GM POWD.PACK PO PRN (11:11)
[2025-01-19] MEDS ORDERED: MAG HYDROX/AL HYDROX/SIMETH 30 ML CUP PO PRN (11:11)
[2025-01-19] MEDS ORDERED: methocarbamoL 750 MG TAB PO PRN (11:11)
[2025-01-19 11:12] LABS: Glucose,Whole Blood 355 mg/dL (70-110)
[2025-01-19] MEDS: IPRATROPIUM-ALBUTEROL 3 ML NEB INHALATION SCH (11:22)
--- NOTE | 2025-01-19 12:57 | P.PN ---
Subjective Progress Note Date: 01/19/25 HISTORY OF PRESENT ILLNESS: This is a 69-year-old female with a past medical history significant for co ronary artery disease with multivessel PCI, hypertension, hyperlipidemia, diabetes, former nicotine dependence, and GI bleeding. Patient follows in the office with Dr. Babcock. We have been asked to see the patient in consultation for congestive heart failure. Patient examined at the bedside in the emergency room. Patient was brought to the hospital from [facility] secondary to lethargy and hypotension. Patient currently denies having any chest pain or pressure. She denies any shortness of breath. Patient was found to have acute kidney injury with a creatinine of 2.81. DIAGNOSTICS: - EKG reveals sinus mechanism with baseline artifact - Chest xray mild left pleural effusion - Laboratory data: WBC 10.59. Hemoglobin 9.5. Platelet count 186. Sodium 129. Potassium 4.3. BUN 64. Creatinine 2.81. proBNP 2170. Troponin 0.043. 0.042. 0.045. - Current home cardiac medication list has not been updated at the time of this examination - Most recent echocardiogram obtained in January 2025 revealing ejection fraction 40% with small pericardial effusion - Cardiac catheterization history: October 2024 revealing LAD stented widely patent, circumflex with previous mid LAD stent jailed OM with good flow RCA with mid lesion and diffuse disease with heavy calcifications. PCI to the RCA with 3 stents. 01/17/2025 Patient examined this morning at the bedside. Patient currently denies any chest pain or pressure. She denies any shortness of breath creatinine improved today to 1.74. Blood pressures remain low in the 90s. Echocardiogram completed revealing ejection fraction 55 to 60% with trace pericardial effusion 01/18/2025 Patient examined this morning to bedside. Patient currently denies any chest pain or pressure. She denies any shortness of breath. Vital signs are stable. Patient's creatinine yesterday 1.74. Repeat labs this morning are currently pending. Blood pressure has improved with initiation of midodrine yesterday. 01/19/2025 Patient seen and examined. Blood pressure 132/70, heart rate 95, pulse ox 97% on 3 L nasal cannula. Patient states that she is feeling a little bit better today from yesterday. She has no lower extremity edema. Breathing appears to be stable. Repeat blood work reveals sodium 137, potassium 3.9, BUN 30 and creatinine 1.2. PHYSICAL EXAM: VITAL SIGNS: Reviewed. GENERAL: Well-developed in no acute distress. HEENT: Head is normocephalic. Pupils are equal, round. Sclerae anicteric. Mucous membranes of the mouth are moist. Neck supple. No JVD or thyromegaly LUNGS: Respirations even and unlabored. Lungs essentially clear to auscultation bilaterally. HEART: Regular rate and rhythm. S1 and S2 heard. ABDOMEN: Soft. Nondistended. Nontender. EXTREMITIES: Normal range of motion. No clubbing or cyanosis. Peripheral pulses intact. No lower extremity edema NEUROLOGIC: Awake and alert. Oriented x 3. ASSESSMENT: Hypotension Acute kidney injury Small pericardial effusion, noted on echo 01/2025, repeat echo this admission reveals trace pericardial effusion Coronary artery disease with previous stenting, most recently in October 2024 to the RCA with 3 stents Ischemic cardiomyopathy, 40% Chronic heart failure with reduced EF, not in acute exacerbation Hypertension Hyperlipidemia Diabetes Former nicotine dependence History of GI bleeding Acute DVT PLAN: Patient has been started on Eliquis for lower extremity DVT. Aspirin discontinued. Continue Plavix 75 mg daily Continue midodrine 5 mg 3 times daily for hypotension Continue current dose of metoprolol Continue to hold nephrotoxic agents Continue to monitor kidney function. Awaiting labs from this morning. No further cardiac workup is planned at this time Cardiology will sign off this case and follow on an as-needed basis. Please reconsult for any new concerns. Patient may follow-up in the office with Dr. Knight in one to 2 weeks. Nurse practitioner note has been reviewed by physician. Signing provider agrees with the documented findings, assessment, and plan of care documented by RESOLUTION MANAGER as a scribe. Objective - Vital Signs Vital signs: Vital Signs Temp 97.7 F 01/19/25 04:00 Pulse 95 01/19/25 04:00 Resp 16 01/19/25 04:00 BP 132/78 01/19/25 04:00 Pulse Ox 97 01/19/25 07:43 FiO2 Intake & Output 01/18/25 01/19/25 01/19/25 18:59 06:59 18:59 Intake Total 780 10 Output Total 450 570 Balance 330 -560 Intake: IV 10 Invasive Line 2 10 Oral 780 Output: Urine 450 570 Other: # Bowel Movements 2 - Labs CBC & Chem 7: 01/18/25 07:14 01/19/25 04:42 Labs: Abnormal Lab Results - Last 24 Hours (Table) 01/16/25 01/18/25 01/18/25 Range/Units 06:20 11:17 16:36 BUN (7-17) mg/dL Creatinine (0.52-1.04) mg/dL Glucose (74-99) mg/dL POC Glucose (mg/dL) 264 H 253 H (70-110) mg/dL Methylmalonic Acid 0.49 H (<0.40) umol/L 01/18/25 01/19/25 01/19/25 Range/Units 20:14 04:42 06:06 BUN 30 H (7-17) mg/dL Creatinine 1.20 H (0.52-1.04) mg/dL Glucose 322 H (74-99) mg/dL POC Glucose (mg/dL) 364 H 338 H (70-110) mg/dL Methylmalonic Acid (<0.40) umol/L Microbiology - Last 24 Hours (Table) 01/15/25 23:19 Blood Culture - Preliminary Blood 01/16/25 00:31 Urine Culture - Final Urine,Voided Klebsiella pneumoniae
[2025-01-19] MEDS: COLCHICINE 0.6 MG EACH PO SCH (14:19)
--- NOTE | 2025-01-19 14:42 | P.PN ---
Subjective Progress Note Date: 01/19/25 Patient seen and evaluated at bedside for follow up on LIAM. No events overnight, no current complaints. Patient is urinating well. Objective - Vital Signs Vital signs: Vital Signs Temp 97.9 F 01/19/25 08:00 Pulse 87 01/19/25 11:35 Resp 16 01/19/25 08:00 BP 124/73 01/19/25 08:00 Pulse Ox 97 01/19/25 08:00 FiO2 Intake & Output 01/18/25 01/19/25 01/19/25 18:59 06:59 18:59 Intake Total 780 10 Output Total 450 570 450 Balance 330 -560 -450 Intake: IV 10 Invasive Line 2 10 Oral 780 Output: Urine 450 570 450 Other: # Bowel Movements 2 - Exam General: nontoxic, no distress, appears at stated age Cardiovascular: S1 S2 reg, no murmur, rubs, or gallops Lungs: CTA bilateral, no rhonchi, no rales, no accessory muscle use Abdominal: soft, non-tender to palpataion Extremities: no gross muscle atrophy, no edema Neuro: Alert, Oriented - Labs CBC & Chem 7: 01/18/25 07:14 01/19/25 04:42 Labs: Abnormal Lab Results - Last 24 Hours (Table) 01/16/25 01/18/25 01/18/25 Range/Units 06:20 16:36 20:14 BUN (7-17) mg/dL Creatinine (0.52-1.04) mg/dL Glucose (74-99) mg/dL POC Glucose (mg/dL) 253 H 364 H (70-110) mg/dL Methylmalonic Acid 0.49 H (<0.40) umol/L 01/19/25 01/19/25 01/19/25 Range/Units 04:42 06:06 11:10 BUN 30 H (7-17) mg/dL Creatinine 1.20 H (0.52-1.04) mg/dL Glucose 322 H (74-99) mg/dL POC Glucose (mg/dL) 338 H 355 H (70-110) mg/dL Methylmalonic Acid (<0.40) umol/L Microbiology - Last 24 Hours (Table) 01/15/25 23:19 Blood Culture - Preliminary Blood 01/16/25 00:31 Urine Culture - Final Urine,Voided Klebsiella pneumoniae Assessment and Plan Assessment: #. Acute kidney injury , non oliguric, likely prerenal in the setting of sepsis. Cr. on admission 2.5-> 2.8. S/p IVF bolus and maintenance fluid of NS at 50 cc/hr. today's creatinine is 1.16 => 1.20. UA is suggestive of UTI. baseline creatinine ~1.2 #. UTI , she was started on IV ceftriaxone. urine culture displaying klebsiella #. Acute left LE DVT, currently on Eliquis #. Iron deficiency anemia #. Mild hyponatremia, sodium level 129, improved to 136 s/p isotonic IVF Plan: LIAM resolved, maintenance fluids have been discontinued Encouraged PO hydration Urine cultures displaying klebsiella, currently on ceftriaxone continue PO iron supplement Patient is medically optimized from a nephrology standpoint I have seen and examined the patient with resident and agree with A&P as written.
[2025-01-19 16:20] LABS: Glucose,Whole Blood 389 mg/dL (70-110)
--- NOTE | 2025-01-19 17:06 | P.PN ---
Subjective Progress Note Date: 01/19/25 This is a 69-year-old female patient with multiple medical problems including diabetes mellitus, GERD, hypertension, hyperlipidemia, pulmonary embolism, hypothyroidism, myocardial infarction, coronary disease with previous stent placement, panic disorder, former smoker who was recently discharged from here on January 08, 2025 for hypotension. She was brought back again yesterday 01/15/2025 from [facility] with lethargy hypoxemia and hypotension. Chest x-ray reveals cardiomegaly with a mild left pleural effusion. Dopplers of the lower extremity revealed no DVT in the right. There is a thrombus within the left popliteal vein. Echocardiogram revealed preserved left ventricular systolic function with an ejection fraction 55 to 60%. White count 10.5. Hemoglobin 9.5. Platelets 186. Sodium 129. Potassium 4.3. Bicarb 25. BUN 64. Creatinine 2.81. Glucose 203. Troponin 0.043, 0.042, 0.045. proBNP 2170. Urinalysis with large leukocyte esterase and high WBCs and many bacteria. She is seen today in consultation in the emergency department. Currently sitting up on a stretcher. Awake and alert in no acute distress. Maintaining O2 saturations in the 90s on 3 L/min per nasal cannula. She has been afebrile. Hemodynamically stable. Seen today on 01/17/2025, patient denies any shortness of breath, denies any chest pain, feeling better compared to how she felt yesterday. Her repeat echocardiogram showed improvement in her LV function ejection fraction is up to 55% with trace of pericardial effusion. Basic metabolic profile is normal bicarb is normal BUN is 49 creatinine 1.74, improved compared to yesterday's creatinine. Patient has some vague stomach discomfort. And she has a bit of diarrhea. She has been on ceftriaxone, and she is also on midodrine. Remains on Eliquis. Venous Doppler is suspicious for DVT, it was relatively difficult study according to the automotive glass technician, yesterday I recommended Lovenox at 80 mg subcu daily, today am recommending that the patient goes on Eliquis. She should have repeat venous Doppler in the next few weeks. The patient is seen today January 18, 2025 in follow-up on the selective care unit. She is currently sitting up in a chair at the bedside. Awake and alert in no acute distress. Maintaining O2 saturations in the 90s on 3 L/min per nasal cannula. Urine culture was positive for Klebsiella pneumoniae. Blood culture revealed no growth. White count 8.8. Hemoglobin 9.5. Platelets 191. Sodium 137. Potassium 3.3. Bicarb 24. BUN 33. Creatinine 1.13. Glucose 189. She remains on ceftriaxone. Anticoagulated with Eliquis. Ativan as needed for anxiety. The patient is seen today January 19, 2025 in follow-up on the selective care unit. She is currently resting in bed. Awake and alert in no acute distress. Maintaining O2 saturations in the 90s on 3 L/min per nasal cannula. She is afebrile. Hemodynamically stable. Urine culture was positive for Klebsiella pneumoniae. Blood culture was no growth. Sodium 137. Potassium 3.9. Bicarb 28. BUN 30. Creatinine 1.20. Glucose 322. She is continued on DuoNeb inhalations. Continued on ceftriaxone. Anticoagulated with Eliquis Objective - Vital Signs Vital signs: Vital Signs Temp 98.0 F 01/19/25 12:00 Pulse 90 01/19/25 14:00 Resp 16 01/19/25 14:00 BP 126/77 01/19/25 12:00 Pulse Ox 98 01/19/25 12:00 FiO2 Intake & Output 01/18/25 01/19/25 01/19/25 18:59 06:59 18:59 Intake Total 780 10 Output Total 450 570 450 Balance 330 -560 -450 Intake: IV 10 Invasive Line 2 10 Oral 780 Output: Urine 450 570 450 Other: # Bowel Movements 2 - Exam GENERAL EXAM: Alert, 69-year-old female, sitting up in bed, on 3 L nasal cannula, in no apparent distress. HEAD: Normocephalic. EYES: Normal reaction of pupils, equal size. NOSE: Clear with pink turbinates. THROAT: No erythema or exudates. NECK: No masses, no JVD. CHEST: No chest wall deformity. LUNGS: Equal air entry with no crackles, wheeze, rhonchi or dullness. CVS: S1 and S2 normal with no audible murmur, regular rhythm. ABDOMEN: No hepatosplenomegaly, normal bowel sounds, no guarding or rigidity. SPINE: No scoliosis or deformity SKIN: No rashes CENTRAL NERVOUS SYSTEM: No focal deficits, tone is normal in all 4 extremities. EXTREMITIES: There is no peripheral edema. No clubbing, no cyanosis. Peripheral pulses are intact. - Labs CBC & Chem 7: 01/18/25 07:14 01/19/25 04:42 Labs: Abnormal Lab Results - Last 24 Hours (Table) 01/16/25 01/18/25 01/19/25 Range/Units 06:20 20:14 04:42 BUN 30 H (7-17) mg/dL Creatinine 1.20 H (0.52-1.04) mg/dL Glucose 322 H (74-99) mg/dL POC Glucose (mg/dL) 364 H (70-110) mg/dL Methylmalonic Acid 0.49 H (<0.40) umol/L 01/19/25 01/19/25 01/19/25 Range/Units 06:06 11:10 16:19 BUN (7-17) mg/dL Creatinine (0.52-1.04) mg/dL Glucose (74-99) mg/dL POC Glucose (mg/dL) 338 H 355 H 389 H (70-110) mg/dL Methylmalonic Acid (<0.40) umol/L Microbiology - Last 24 Hours (Table) 01/15/25 23:19 Blood Culture - Preliminary Blood 01/16/25 00:31 Urine Culture - Final Urine,Voided Klebsiella pneumoniae Assessment and Plan Assessment: Generalized weakness secondary to suspected urinary tract infection Urinary tract infection secondary to Klebsiella pneumoniae remains on ceftriaxone Leukocytosis secondary to above Acute kidney injury secondary to above Hyponatremia Diabetes mellitus with hyperglycemia Possible acute versus chronic left lower extremity DVT, anticoagulated with Eliquis Recurrent left pleural effusion with previous thoracentesis on 12/20/2024, negative for malignancy Hypoxic respiratory failure secondary to above Coronary artery disease with previous stent placement History of systolic congestive heart failure with ejection fraction of 45% 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 pulmonary embolism Hypertension Hyperlipidemia Anemia of chronic disease Chronic kidney disease stage III Hypothyroidism Poor gait function with frequent falls Former smoker Poor overall functional performance based on the above-mentioned multiple comorbidities currently in an ECF Plan: The patient was seen and evaluated Labs and medications reviewed Microbiology reviewed Remains on ceftriaxone Remains on Eliquis Titrate the FiO2 as tolerated Stable on 3 L/min per nasal cannula Increase her activity as tolerated We will continue to follow I have personally seen and examined the patient, performed the documentation and the assessment and plan as written. Number of minutes spent on the visit: 10 Dictation was produced using Dojo dictation software. Please excuse any grammatical, word or spelling errors.
[2025-01-19 19:40] LABS: Glucose,Whole Blood 418 mg/dL (70-110)
[2025-01-19] MEDS: INSULIN GLARGINE (LANTUS) 100 UNIT/ML SYR SQ SCH (21:12)
[2025-01-19] MEDS: SACUBITRIL/VALSARTAN 24 MG-26 MG TABLET PO SCH (21:13)
[2025-01-19] MEDS: INSULIN LISPRO (HumaLOG) 100 UNIT/ML 10 mL VL SQ ONE (21:15)
[2025-01-20] MEDS: SENNOSIDES-DOCUSATE SODIUM 1 EACH TAB PO SCH (00:38)
--- NOTE | 2025-01-20 02:14 | PN ---
PROGRESS NOTE DATE OF SERVICE: 01/19/2025 SUBJECTIVE: This 69-year-old woman, who was admitted with acute UTI as well as generalized weakness and leg edema, is being closely monitored at this time. The chest x-ray on admission, which I reviewed personally, showed some right-sided pneumonia. PAST MEDICAL HISTORY: Reviewed. REVIEW OF SYSTEMS: A 14-point review of systems negative except as mentioned earlier. CURRENT MEDICATIONS: Reviewed. PHYSICAL EXAMINATION: VITAL SIGNS: Pulse is 95, blood pressure 130/70, and respirations 16. HEENT: Conjunctivae normal. NECK: No JVD. CARDIOVASCULAR: S1, S2. RESPIRATIONS: Decreased breath sounds at the bases. Bilateral scattered rhonchi and crackles. ABDOMEN: Soft. NERVOUS SYSTEM: Nonfocal. LABORATORY DATA: Accu-Cheks elevated. ASSESSMENT: 1. Acute urinary tract infection with Klebsiella pneumonia present on admission. 2. Generalized weakness secondary to urinary tract infection. 3. Possible right lower lobe pneumonia. 4. History of pleural effusion and thoracocenteses. 5. Elevated troponin up to 0.045. 6. Acute renal failure with acute tubular necrosis, present on admission. 7. Anemia, multifactorial. 8. Diabetes mellitus, type 2. 9. History of deep vein thrombosis. 10.History of myocardial infarction. 11.History of pulmonary embolism. 12.History of factor 5 Leiden deficiency. 13.History of CAD stent. RECOMMENDATIONS AND DISCUSSION: This 69-year-old woman presented with multiple complex medical issues. At this time, I recommend to continue current management and treatment. Continue empiric antibiotics. Otherwise, we will add some bronchodilators. Repeat chest x-ray. Monitor fluid balance closely. The patient is not on any diuretics at this time. Prognosis guarded. For further recommendations, see orders. Repeat PT and OT evaluation. MMODL / IJN: [id number] /
[2025-01-20] MEDS: traZODone HCL 100 MG TAB PO SCH (02:41)
[2025-01-20 06:05] LABS: Glucose,Whole Blood 458 mg/dL (70-110)
[2025-01-20] MEDS: SPIRONOLACTONE 25 MG TAB PO SCH (06:39)
[2025-01-20] MEDS: LEVOTHYROXINE 75 MCG TAB PO SCH (06:40)
[2025-01-20 07:22] LABS: Basophils # (A) 0.02 10*3/uL (0.00-0.10); Basophils % (A) 0.4 %; Eosinophils # (A) 0.14 10*3/uL (0.04-0.35); Eosinophils % (A) 3.1 %; HCT 30.7 % (37.2-46.3); Lymphocytes # (A) 1.04 10*3/uL (0.90-5.00); Lymphocytes % (A) 23.1 %; MCH 24.7 pg (27.0-32.0); MCHC 29.3 g/dL (32.0-37.0); MCV 84.1 fL (80.0-97.0); Mean Platelet Volume 11.3 fL (9.5-12.2); Monocytes # (A) 0.37 10*3/uL (0.20-1.00); Monocytes % (A) 8.2 %; Neutrophils # (A) 2.91 10*3/uL (1.80-7.70); Neutrophils % (A) 64.5 %; Platelet Count 162 10*3/uL (140-440); RBC 3.65 10*6/uL (4.10-5.20); RDW 20.2 % (11.5-14.5); WBC 4.51 10*3/uL (4.50-10.00)
[2025-01-20 07:37] LABS: ALT 13 U/L (4-34); AST 27 U/L (14-36); African American GFR (CKD) 66 (>60 ml/min/1.73 sqM); Albumin 2.6 g/dL (3.5-5.0); Alkaline Phosphatase 184 U/L (38-126); Anion Gap 9 mmol/L; Blood Urea Nitrogen 22 mg/dL (7-17); Calcium 7.6 mg/dL (8.4-10.2); Carbon Dioxide 24 mmol/L (22-30); Chloride 103 mmol/L (98-107); Glucose 474 mg/dL (74-99); Non-African American GFR(CKD) 58 (>60 ml/min/1.73 sqM); Potassium 4.1 mmol/L (3.5-5.1); Sodium 136 mmol/L (137-145); Total Bilirubin 0.5 mg/dL (0.2-1.3); Total Protein 6.2 g/dL (6.3-8.2)
--- NOTE | 2025-01-20 08:31 | XR ---
EXAMINATION TYPE: XR chest 1V portable DATE OF EXAM: 01/20/2025 6:39 AM COMPARISON: Chest radiographs from 01/15/2025 CLINICAL INDICATION: Female, 69 years old with history of chf; [facility] TECHNIQUE: XR chest 1V portable Frontal view of the chest. FINDINGS: Lungs/Pleura: No evidence of focal consolidation or pneumothorax. Blunting of the costophrenic angles is present. Pulmonary vascularity: Pulmonary vascular congestion. Heart/mediastinum: Cardiomediastinal silhouette is enlarged. Musculoskeletal: No acute osseous pathology. Other findings: None Lines/Tubes: IMPRESSION: Cardiomegaly, pulmonary vascular congestion and bilateral pleural effusions. Correlate with BNP for c ongestive heart failure. [facility], , 01/20/2025 8:28 AM
[2025-01-20] MEDS: ASPIRIN 81 MG PO SCH (09:12)
[2025-01-20] MEDS: CYANOCOBALAMIN 500 MCG TAB PO SCH (09:12)
[2025-01-20] MEDS: INSULIN GLARGINE (LANTUS) 100 UNIT/ML SYR SQ SCH ×2 (09:14→20:59)
[2025-01-20] MEDS: INSULIN LISPRO (HumaLOG) 100 UNIT/ML 10 mL VL SQ SCH (09:14)
[2025-01-20] MEDS ORDERED: ZINC OXIDE PASTE (Z-GUARD) 1 APPLIC TOPICAL PRN (10:09)
[2025-01-20 11:57] LABS: Glucose,Whole Blood 378 mg/dL (70-110)
[2025-01-20] MEDS: ONDANSETRON ODT 4 MG TAB PO PRN (12:26)
--- NOTE | 2025-01-20 14:10 | P.PN ---
Subjective Progress Note Date: 01/20/25 This is a 69-year-old female patient with multiple medical problems including diabetes mellitus, GERD, hypertension, hyperlipidemia, pulmonary embolism, hypothyroidism, myocardial infarction, coronary disease with previous stent placement, panic disorder, former smoker who was recently discharged from here on January 08, 2025 for hypotension. She was brought back again yesterday 01/15/[address] [facility] with lethargy hypoxemia and hypotension. Chest x-ray reveals cardiomegaly with a mild left pleural effusion. Dopplers of the lower extremity revealed no DVT in the right. There is a thrombus within the left popliteal vein. Echocardiogram revealed preserved left ventricular systolic function with an ejection fraction 55 to 60%. White count 10.5. Hemoglobin 9.5. Platelets 186. Sodium 129. Potassium 4.3. Bicarb 25. BUN 64. Creatinine 2.81. Glucose 203. Troponin 0.043, 0.042, 0.045. proBNP 2170. Urinalysis with large leukocyte esterase and high WBCs and many bacteria. She is seen today in consultation in the emergency department. Currently sitting up on a stretcher. Awake and alert in no acute distress. Maintaining O2 saturations in the 90s on 3 L/min per nasal cannula. She has been afebrile. Hemodynamically stable. Seen today on 01/17/2025, patient denies any shortness of breath, denies any chest pain, feeling better compared to how she felt yesterday. Her repeat echocardiogram showed improvement in her LV function ejection fraction is up to 55% with trace of pericardial effusion. Basic metabolic profile is normal bicarb is normal BUN is 49 creatinine 1.74, improved compared to yesterday's creatinine. Patient has some vague stomach discomfort. And she has a bit of diarrhea. She has been on ceftriaxone, and she is also on midodrine. Remains on Eliquis. Venous Doppler is suspicious for DVT, it was relatively difficult study according to the rail technician, yesterday I recommended Lovenox at 80 mg subcu daily, today am recommending that the patient goes on Eliquis. She should have repeat venous Doppler in the next few weeks. The patient is seen today January 18, 2025 in follow-up on the selective care unit. She is currently sitting up in a chair at the bedside. Awake and alert in no acute distress. Maintaining O2 saturations in the 90s on 3 L/min per nasal cannula. Urine culture was positive for Klebsiella pneumoniae. Blood culture revealed no growth. White count 8.8. Hemoglobin 9.5. Platelets 191. Sodium 137. Potassium 3.3. Bicarb 24. BUN 33. Creatinine 1.13. Glucose 189. She remains on ceftriaxone. Anticoagulated with Eliquis. Ativan as needed for anxiety. The patient is seen today January 19, 2025 in follow-up on the selective care unit. She is currently resting in bed. Awake and alert in no acute distress. Maintaining O2 saturations in the 90s on 3 L/min per nasal cannula. She is afebrile. Hemodynamically stable. Urine culture was positive for Klebsiella pneumoniae. Blood culture was no growth. Sodium 137. Potassium 3.9. Bicarb 28. BUN 30. Creatinine 1.20. Glucose 322. She is continued on DuoNeb inhalations. Continued on ceftriaxone. Anticoagulated with Eliquis The patient is seen today January 20, 2025 in follow-up on the selective care unit. She is currently sitting up in a chair. Awake and alert in no acute distress. Maintaining good O2 saturations in the 90s on 2 L/min per nasal cannula. Follo w-up chest x-ray reveals cardiomegaly with pulmonary vascular congestion and small bilateral effusions. Urine culture was positive for Klebsiella pneumoniae. Blood culture revealed no growth. White count 4.5. Hemoglobin 9.0. Platelets 162. Sodium 136. Potassium 4.1. Bicarb 24. BUN 22. Crea tinine 1.0. Glucose 378. She remains on ceftriaxone. Anticoagulated with Eliquis. Remains on oral diuretics. Continued on Lantus and Humalog sliding scale. Objective - Vital Signs Vital signs: Vital Signs Temp 96.8 F L 01/20/25 12:00 Pulse 80 01/20/25 12:00 Resp 20 01/20/25 12:00 BP 109/71 01/20/25 12:00 Pulse Ox 98 01/20/25 12:00 FiO2 Intake & Output 01/19/25 01/20/25 01/20/25 18:59 06:59 18:59 Intake Total 480 Output Total 450 300 500 Balance -450 -300 -20 Weight 87.1 kg Intake: Oral 480 Output: Urine 450 300 500 Other: # Voids 1 - Exam GENERAL EXAM: Alert, 69-year-old female, sitting up in a chair, on 2 L nasal cannula, in no apparent distress. HEAD: Normocephalic. EYES: Normal reaction of pupils, equal size. NOSE: Clear with pink turbinates. THROAT: No erythema or exudates. NECK: No masses, no JVD. CHEST: No chest wall deformity. LUNGS: Equal air entry with crackles in the posterior bases. CVS: S1 and S2 normal with no audible murmur, regular rhythm. ABDOMEN: No hepatosplenomegaly, normal bowel sounds, no guarding or rigidity. SPINE: No scoliosis or deformity SKIN: No rashes CENTRAL NERVOUS SYSTEM: No focal deficits, tone is normal in all 4 extremities. EXTREMITIES: There is 1+ peripheral edema. No clubbing, no cyanosis. Peripheral pulses are intact. - Labs CBC & Chem 7: 01/20/25 07:03 01/20/25 07:03 Labs: Abnormal Lab Results - Last 24 Hours (Table) 01/19/25 01/19/25 01/20/25 Range/Units 16:19 19:38 06:03 RBC (4.10-5.20) 10*6/uL Hgb (12.0-15.0) g/dL Hct (37.2-46.3) % MCH (27.0-32.0) pg MCHC (32.0-37.0) g/dL Sodium (137-145) mmol/L BUN (7-17) mg/dL Glucose (74-99) mg/dL POC Glucose (mg/dL) 389 H 418 H 458 H (70-110) mg/dL Calcium (8.4-10.2) mg/dL Alkaline Phosphatase (38-126) U/L Total Protein (6.3-8.2) g/dL Albumin (3.5-5.0) g/dL 01/20/25 01/20/25 01/20/25 Range/Units 07:03 07:03 11:56 RBC 3.65 L (4.10-5.20) 10*6/uL Hgb 9.0 L (12.0-15.0) g/dL Hct 30.7 L (37.2-46.3) % MCH 24.7 L (27.0-32.0) pg MCHC 29.3 L (32.0-37.0) g/dL Sodium 136 L (137-145) mmol/L BUN 22 H (7-17) mg/dL Glucose 474 H (74-99) mg/dL POC Glucose (mg/dL) 378 H (70-110) mg/dL Calcium 7.6 L (8.4-10.2) mg/dL Alkaline Phosphatase 184 H (38-126) U/L Total Protein 6.2 L (6.3-8.2) g/dL Albumin 2.6 L (3.5-5.0) g/dL Assessment and Plan Assessment: Generalized weakness secondary to a urinary tract infection Urinary tract infection secondary to Klebsiella pneumoniae remains on ceftriaxone Leukocytosis secondary to above Acute kidney injury secondary to above Hyponatremia Acute hypoxic respiratory failure secondary to an acute exacerbation of systolic congestive heart failure with ejection fraction of 45% Diabetes mellitus with hyperglycemia Possible acute versus chronic left lower extremity DVT, anticoagulated with Eliquis Recurrent left pleural effusion with previous thoracentesis on 12/20/2024, negative for malignancy Hypoxic respiratory failure secondary to above Coronary artery disease with previous stent placement 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 pulmonary embolism Hypertension Hyperlipidemia Anemia of chronic disease Chronic kidney disease stage III Hypothyroidism Poor gait function with frequent falls Former smoker Poor overall functional performance based on the above-mentioned multiple comorbidities currently in an ECF Plan: The patient was seen and evaluated Chest x-ray, labs and medications reviewed Remains on oral diuretics Microbiology reviewed Remains on ceftriaxone Remains on Eliquis Titrate down/off the FiO2 as tolerated Stable on 2 L/min per nasal cannula Increase her activity as tolerated We will continue to follow I have personally seen and examined the patient, performed the documentation and the assessment and plan as written. Number of minutes spent on the visit: 10 Dictation was produced using WSO2ation software. Please excuse any grammatical, word or spelling errors.
--- NOTE | 2025-01-20 14:41 | P.PN ---
Subjective Progress Note Date: 01/20/25 Patient seen and evaluated bedside. No overnight events, no currrent complaints. Vital signs reviewed and stable General: nontoxic, no distress, appears at stated age Cardiovascular: S1 S2 reg, no murmur, rubs, or gallops Lungs: CTA bilateral, no rhonchi, no rales, no accessory muscle use Abdominal: soft, non-tender to palpataion Extremities: no gross muscle atrophy, no edema Neuro: Alert, Oriented Objective - Vital Signs Vital signs: Vital Signs Temp 97.9 F 01/20/25 02:43 Pulse 93 01/20/25 02:43 Resp 16 01/20/25 02:43 BP 128/72 01/20/25 02:43 Pulse Ox 97 01/20/25 02:43 FiO2 Intake & Output 01/19/25 01/20/25 01/20/25 18:59 06:59 18:59 Output Total 450 300 Balance -450 -300 Weight 87.1 kg Output: Urine 450 300 Other: # Voids 1 - Labs CBC & Chem 7: 01/20/25 07:03 01/20/25 07:03 Labs: Abnormal Lab Results - Last 24 Hours (Table) 01/19/25 01/19/25 01/19/25 Range/Units 11:10 16:19 19:38 RBC (4.10-5.20) 10*6/uL Hgb (12.0-15.0) g/dL Hct (37.2-46.3) % MCH (27.0-32.0) pg MCHC (32.0-37.0) g/dL Sodium (137-145) mmol/L BUN (7-17) mg/dL Glucose (74-99) mg/dL POC Glucose (mg/dL) 355 H 389 H 418 H (70-110) mg/dL Calcium (8.4-10.2) mg/dL Alkaline Phosphatase (38-126) U/L Total Protein (6.3-8.2) g/dL Albumin (3.5-5.0) g/dL 01/20/25 01/20/25 01/20/25 Range/Units 06:03 07:03 07:03 RBC 3.65 L (4.10-5.20) 10*6/uL Hgb 9.0 L (12.0-15.0) g/dL Hct 30.7 L (37.2-46.3) % MCH 24.7 L (27.0-32.0) pg MCHC 29.3 L (32.0-37.0) g/dL Sodium 136 L (137-145) mmol/L BUN 22 H (7-17) mg/dL Glucose 474 H (74-99) mg/dL POC Glucose (mg/dL) 458 H (70-110) mg/dL Calcium 7.6 L (8.4-10.2) mg/dL Alkaline Phosphatase 184 H (38-126) U/L Total Protein 6.2 L (6.3-8.2) g/dL Albumin 2.6 L (3.5-5.0) g/dL Microbiology - Last 24 Hours (Table) 01/15/25 23:19 Blood Culture - Preliminary Blood Assessment and Plan Assessment: #. Acute kidney injury , non oliguric, likely prerenal in the setting of sepsis. Cr. on admission 2.5-> 2.8. S/p IVF bolus and maintenance fluid of NS at 50 cc/hr. today's creatinine is 1.16 => 1.20. UA is suggestive of UTI. baseline creatinine ~1.2 #. UTI , she was started on IV ceftriaxone. urine culture displaying klebsiella #. Acute left LE DVT, currently on Eliquis #. Iron deficiency anemia #. Mild hyponatremia, sodium level 129, improved to 136 s/p isotonic IVF Plan: LIAM resolved, maintenance fluids have been discontinued Encouraged PO hydration Urine cultures displaying klebsiella, currently on ceftriaxone continue PO iron supplement Patient is medically optimized from a nephrology standpoint. Will continue to follow. I have seen and examined the patient with resident and agree with A&P as written.
[2025-01-20 16:50] LABS: Glucose,Whole Blood 366 mg/dL (70-110)
[2025-01-20 20:13] LABS: Glucose,Whole Blood 412 mg/dL (70-110)
[2025-01-20] MEDS: INSULIN LISPRO (HumaLOG) 100 UNIT/ML 10 mL VL SQ ONE (20:42)
--- NOTE | 2025-01-21 05:25 | P.PN ---
Subjective Progress Note Date: 01/20/25 This is a pleasant 69-year-old female who was recently admitted with acute urinary tract infection along with generalized weakness and concerns for CHF exacerbation. Multiple consultations including pulmonary and cardiology following making adjustments to medications and will continue current regimen. Plan is for return to [facility] on discharge for continued strength and mobility. Will have PT/OT therapy reassess and update the notes. Patient will require insurance authorization which is pending at this time. Chest x-ray continues to show cardiomegaly with pulmonary vascular congestion and bilateral pleural effusions. Urine culture showing Enterococcus VRE and maintained on ceftriaxone and will transition to oral antibiotics on discharge. Review of systems: Constitutional: reports of fatigue, no fever, or chills Cardiovascular: No reports of chest pain or palpitations Respiratory: No reports of worsening shortness of breath or cough GI: No reports of nausea, no reports of vomiting, no diarrhea : No reports of dysuria or retention Neurovascular: reports of generalized weakness, All medications have been reviewed PHYSICAL EXAMINATION: GENERAL: The patient is alert and oriented x 2-3 baseline, Well developed, elderly appearing, chronically ill-appearing, obese. HEENT: Pupils are round and equally reacting to light. EOMI. no scleral icterus. No conjunctival pallor. Normocephalic, atraumatic. No pharyngeal erythema. No thyromegaly. CARDIOVASCULAR: S1 and S2 muffled PULMONARY: diminished breath sounds bilaterally with no wheezing or rhonchi noted. ABDOMEN: soft. Nontender on exam. obese. non-distended, normoactive bowel sounds. No palpable organomegaly. MUSCULOSKELETAL: No joint swelling or deformity. EXTREMITIES: No cyanosis, clubbing, or pedal edema. NEUROLOGICAL: Gross neurological examination did not reveal any focal deficits. Diffuse weakness SKIN: No rashes. Assessment: Acute urinary tract infection with Klebsiella pneumonia generalized weakness secondary to urinary tract infection Possible right lower lobe pneumonia History of previous pleural effusions and thoracentesis Elevated troponin 0.045 Acute renal failure with acute tubular necrosis, present on admission Anemia, multifactorial with no bleeding noted at this time, likely chronic History of DVT/PE Diabetes mellitus, type II uncontrolled with hyperglycemia Obesity with a BMI of 32.0 History of factor V Leyden deficiency History of coronary artery disease with previous stenting GI prophylaxis DVT prophylaxis Full code Plan: Recommend to continue with current medications and management with cardiology and pulmonary following. Patient continues on ceftriaxone with urine culture showing Enterococcus VRE and will transition to oral antibiotics on discharge Case management following and patient will require insurance authorization to return to [facility] Awaiting updated PT/OT therapy notes Continue current medication regimen and adjust insulins accordingly. Recommend to continue monitoring Accu-Cheks AC and at bedtime Aspiration precautions with head of the bed elevated 30 to 45 degrees at all times Medical issues, overall prognosis is Possible discharge planning in the next 24 to 48 hours The impression and plan of care has been dictated by Rocio Maher, nurse practitioner as directed. Dr. Dane MD I have performed a history and examination and MDM of this patient, discussed the same with the dictator, and agree with the dictator's assessment and plan as written ,documented as a scribe. Based on total visit time, I have performed more than 50% of the visit. Any additional findings or plans will be noted. Objective - Vital Signs Vital signs: Vital Signs Temp 98.5 F 01/20/25 20:34 Pulse 86 01/21/25 04:34 Resp 18 01/21/25 04:34 BP 97/61 01/21/25 04:34 Pulse Ox 93 L 01/21/25 04:34 FiO2 Intake & Output 01/20/25 01/20/25 01/21/25 06:59 18:59 06:59 Intake Total 480 Output Total 300 500 Balance -300 -20 Weight 87.1 kg Intake: Oral 480 Output: Urine 300 500 Other: Voiding Method Bedside Commode # Voids 1 1 1 - Labs CBC & Chem 7: 01/20/25 07:03 01/20/25 07:03 Labs: Abnormal Lab Results - Last 24 Hours (Table) 01/20/25 01/20/25 01/20/25 Range/Units 06:03 07:03 07:03 RBC 3.65 L (4.10-5.20) 10*6/uL Hgb 9.0 L (12.0-15.0) g/dL Hct 30.7 L (37.2-46.3) % MCH 24.7 L (27.0-32.0) pg MCHC 29.3 L (32.0-37.0) g/dL Sodium 136 L (137-145) mmol/L BUN 22 H (7-17) mg/dL Glucose 474 H (74-99) mg/dL POC Glucose (mg/dL) 458 H (70-110) mg/dL Calcium 7.6 L (8.4-10.2) mg/dL Alkaline Phosphatase 184 H (38-126) U/L Total Protein 6.2 L (6.3-8.2) g/dL Albumin 2.6 L (3.5-5.0) g/dL 01/20/25 01/20/25 01/20/25 Range/Units 11:56 16:49 20:11 RBC (4.10-5.20) 10*6/uL Hgb (12.0-15.0) g/dL Hct (37.2-46.3) % MCH (27.0-32.0) pg MCHC (32.0-37.0) g/dL Sodium (137-145) mmol/L BUN (7-17) mg/dL Glucose (74-99) mg/dL POC Glucose (mg/dL) 378 H 366 H 412 H (70-110) mg/dL Calcium (8.4-10.2) mg/dL Alkaline Phosphatase (38-126) U/L Total Protein (6.3-8.2) g/dL Albumin (3.5-5.0) g/dL Microbiology - Last 24 Hours (Table) 01/15/25 23:19 Blood Culture - Final Blood
[2025-01-21 05:57] LABS: Glucose,Whole Blood 287 mg/dL (70-110)
[2025-01-21 07:12] LABS: Basophils # (A) 0.03 10*3/uL (0.00-0.10); Basophils % (A) 0.6 %; Eosinophils # (A) 0.12 10*3/uL (0.04-0.35); Eosinophils % (A) 2.3 %; HCT 33.9 % (37.2-46.3); HGB 9.6 g/dL (12.0-15.0); Immature Platelet Fraction 7.9 % (1.1-6.1); Lymphocytes # (A) 1.22 10*3/uL (0.90-5.00); Lymphocytes % (A) 23.1 %; MCH 24.2 pg (27.0-32.0); MCHC 28.3 g/dL (32.0-37.0); MCV 85.6 fL (80.0-97.0); Mean Platelet Volume 11.8 fL (9.5-12.2); Monocytes # (A) 0.33 10*3/uL (0.20-1.00); Monocytes % (A) 6.3 %; Neutrophils # (A) 3.53 10*3/uL (1.80-7.70); Neutrophils % (A) 66.8 %; Platelet Count 156 10*3/uL (140-440); RBC 3.96 10*6/uL (4.10-5.20); RDW 20.4 % (11.5-14.5); WBC 5.28 10*3/uL (4.50-10.00)
[2025-01-21 07:47] LABS: ALT 14 U/L (4-34); AST 27 U/L (14-36); African American GFR (CKD) 71 (>60 ml/min/1.73 sqM); Albumin 2.8 g/dL (3.5-5.0); Alkaline Phosphatase 184 U/L (38-126); Anion Gap 13 mmol/L; Blood Urea Nitrogen 18 mg/dL (7-17); Calcium 8.1 mg/dL (8.4-10.2); Carbon Dioxide 22 mmol/L (22-30); Chloride 105 mmol/L (98-107); Glucose 292 mg/dL (74-99); Non-African American GFR(CKD) 62 (>60 ml/min/1.73 sqM); Potassium 4.1 mmol/L (3.5-5.1); Sodium 140 mmol/L (137-145); Total Bilirubin 0.5 mg/dL (0.2-1.3); Total Protein 6.4 g/dL (6.3-8.2)
[2025-01-21 11:43] LABS: Glucose,Whole Blood 380 mg/dL (70-110)
--- NOTE | 2025-01-21 11:53 | P.PN ---
Subjective Progress Note Date: 01/21/25 Patient seen and evaluated bedside. No overnight events, no currrent complaints. Vital signs reviewed and stable General: nontoxic, no distress, appears at stated age Cardiovascular: S1 S2 reg, no murmur, rubs, or gallops Lungs: CTA bilateral, no rhonchi, no rales, no accessory muscle use Abdominal: soft, non-tender to palpation Extremities: no gross muscle atrophy, no edema Neuro: Alert, Oriented Objective - Vital Signs Vital signs: Vital Signs Temp 98.2 F 01/21/25 07:49 Pulse 104 H 01/21/25 07:49 Resp 18 01/21/25 07:49 BP 117/59 01/21/25 07:49 Pulse Ox 96 01/21/25 08:38 FiO2 Intake & Output 01/20/25 01/21/25 01/21/25 18:59 06:59 18:59 Intake Total 480 Output Total 500 Balance -20 Intake: Oral 480 Output: Urine 500 Other: Voiding Method Bedside Commode Bedside Commode # Voids 1 1 - Labs CBC & Chem 7: 01/21/25 06:17 01/21/25 06:17 Labs: Abnormal Lab Results - Last 24 Hours (Table) 01/20/25 01/20/25 01/20/25 Range/Units 11:56 16:49 20:11 RBC (4.10-5.20) 10*6/uL Hgb (12.0-15.0) g/dL Hct (37.2-46.3) % MCH (27.0-32.0) pg MCHC (32.0-37.0) g/dL Immature Gran # (0.00-0.04) 10*3/uL Immature Plt Fraction (1.1-6.1) % BUN (7-17) mg/dL Glucose (74-99) mg/dL POC Glucose (mg/dL) 378 H 366 H 412 H (70-110) mg/dL Calcium (8.4-10.2) mg/dL Alkaline Phosphatase (38-126) U/L Albumin (3.5-5.0) g/dL 01/21/25 01/21/25 01/21/25 Range/Units 05:55 06:17 06:17 RBC 3.96 L (4.10-5.20) 10*6/uL Hgb 9.6 L (12.0-15.0) g/dL Hct 33.9 L (37.2-46.3) % MCH 24.2 L (27.0-32.0) pg MCHC 28.3 L (32.0-37.0) g/dL Immature Gran # 0.05 H (0.00-0.04) 10*3/uL Immature Plt Fraction 7.9 H (1.1-6.1) % BUN 18 H (7-17) mg/dL Glucose 292 H (74-99) mg/dL POC Glucose (mg/dL) 287 H (70-110) mg/dL Calcium 8.1 L (8.4-10.2) mg/dL Alkaline Phosphatase 184 H (38-126) U/L Albumin 2.8 L (3.5-5.0) g/dL Microbiology - Last 24 Hours (Table) 01/15/25 23:19 Blood Culture - Final Blood Assessment and Plan Assessment: #. Acute kidney injury , non oliguric, likely prerenal in the setting of sepsis. Cr. on admission 2.5-> 2.8. S/p IVF bolus and maintenance fluid of NS at 50 cc/hr. today's creatinine is 1.16 => 1.20. UA is suggestive of UTI. baseline creatinine ~1.2 #. UTI , she was started on IV ceftriaxone. urine culture displaying klebsiella #. Acute left LE DVT, currently on Eliquis #. Iron deficiency anemia #. Mild hyponatremia, sodium level 129, improved to 136 s/p isotonic IVF Plan: LIAM resolved, maintenance fluids have been discontinued Encouraged PO hydration Urine cultures displaying klebsiella, currently on ceftriaxone continue PO iron supplement Patient is medically optimized from a nephrology standpoint. Will continue to follow. I have seen and examined the patient with resident and agree with A&P as written.
--- NOTE | 2025-01-21 12:59 | P.DS ---
Providers Date of admission: 01/16/25 01:51 Expected date of discharge: 01/21/25 Attending physician: Francisco Vela Consults: 01/16/25 01:48 Consult Physician Routine Consulting Provider: Sandoval Jack Consult Reason/Comments: CHF Do you want consulting provider notified?: Yes Consult Physician Routine Consulting Provider: Lily Hicks Consult Reason/Comments: CHF, UTI, Sepsis Do you want consulting provider notified?: Yes 01/16/25 07:53 Consult Physician Routine Consulting Provider: Jennifer Hidalgo Consult Reason/Comments: LIAM Do you want consulting provider notified?: Yes 01/16/25 11:26 Consult Physician Routine Consulting Provider: Marino Lima Consult Reason/Comments: possible partial thrombus on the left leg us Do you want consulting provider notified?: Yes Primary care physician: Miguel Sy Hospital Course: Final diagnosis Acute urinary tract infection with Klebsiella pneumonia generalized weakness secondary to urinary tract infection Possible right lower lobe pneumonia History of previous pleural effusions and thoracentesis Elevated troponin 0.045 Acute renal failure with acute tubular necrosis, present on admission Anemia, multifactorial with no bleeding noted at this time, likely chronic History of DVT/PE Diabetes mellitus, type II uncontrolled with hyperglycemia Obesity with a BMI of 32.0 History of factor V Leyden deficiency History of coronary artery disease with previous stenting GI prophylaxis DVT prophylaxis Full code Hospital course This is a pleasant 69-year-old female who was recently admitted with acute urinary tract infection along with generalized weakness and concerns for CHF exacerbation. Multiple consultations including pulmonary and cardiology following making adjustments to medications and will continue current regimen. Plan is for return to [facility] on discharge for continued strength and mobility. Will have PT/OT therapy reassess and update the notes. Patient will require insurance authorization which is pending at this time. Chest x-ray continues to show cardiomegaly with pulmonary vascular congestion and bilateral pleural effusions. Urine culture showing Enterococcus VRE and maintained on ceftriaxone and will transition to oral antibiotics on discharge. PHYSICAL EXAMINATION: GENERAL: The patient is alert and oriented x 2-3 baseline, Well developed, elderly appearing, chronically ill-appearing, obese. HEENT: Pupils are round and equally reacting to light. EOMI. no scleral icterus. No conjunctival pallor. Normocephalic, atraumatic. No pharyngeal erythema. No thyromegaly. CARDIOVASCULAR: S1 and S2 muffled PULMONARY: diminished breath sounds bilaterally with no wheezing or rhonchi noted. ABDOMEN: soft. Nontender on exam. obese. non-distended, normoactive bowel sounds. No palpable organomegaly. MUSCULOSKELETAL: No joint swelling or deformity. EXTREMITIES: No cyanosis, clubbing, or pedal edema. NEUROLOGICAL: Gross neurological examination did not reveal any focal deficits. Diffuse weakness SKIN: No rashes. The impression and plan of care has been dictated by Rocio Maher, nurse practitioner as directed. Dr. Dane MD I have performed a history and examination and MDM of this patient, discussed the same with the dictator, and agree with the dictator's assessment and plan as written ,documented as a scribe. Based on total visit time, I have performed more than 50% of the visit. Any additional findings or plans will be noted. Patient Condition at Discharge: Stable Plan - Discharge Summary New Discharge Prescriptions: New LORazepam [Ativan] 0.5 mg PO TID PRN #6 tab PRN Reason: Anxiety cefuroxime axetiL [Ceftin] 500 mg PO BID 5 Days #10 tab INSULIN LISPRO (HumaLOG) [HumaLOG] 0 unit SQ ACHS each INSULIN LISPRO (HumaLOG) [HumaLOG] 6 unit SQ AC-TID each Ferrous Sulfate [Iron (65 MG Elemental)] 325 mg PO W/LUNCH tab Insulin Glargine (Lantus) [Lantus Vial] 20 unit SQ 0700,2100 each Midodrine [ProAmatine] 5 mg PO AC-TID tab Continue Clopidogrel [Plavix] 75 mg PO DAILY@0900 traZODone HCL [Desyrel] 200 mg PO HS@2100 Insulin Lispro [humaLOG Kwikpen] See Protocol SQ ACHS Acetaminophen Tab [Tylenol] 650 mg PO Q4H PRN PRN Reason: Pain Atorvastatin [Lipitor] 80 mg PO HS@2100 Ondansetron [Zofran] 4 mg PO Q8H PRN PRN Reason: Nausea Sennosides-Docusate Sodium [Senokot-S] 1 tab PO BID@0900,2100 Ipratropium-Albuterol Nebulize [Duoneb 0.5 mg-3 mg/3 ml Soln] 3 ml INHALATION RT-Q4H Levothyroxine Sodium 75 mcg PO DAILY@0600 Levothyroxine Sodium 200 mcg PO DAILY@0600 Sacubitril/Valsartan [Entresto 24 mg-26 mg Tablet] 0.5 tab PO BID@0900,2100 Mag Hydrox/Al Hydrox/Simeth [Maalox] 30 ml PO Q4HR PRN PRN Reason: Constipation Insulin Glargine,Hum.rec.anlog [Lantus Solostar Pen] 30 units SQ HS@1800 Albuterol Sulfate [Ventolin HFA] 2 puff INHALATION RT-Q6H PRN PRN Reason: Shortness Of Breath methocarbamoL [Robaxin-750] 750 mg PO QID PRN PRN Reason: Muscle Spasm polyethylene glycoL 3350 [Miralax] 17 gm PO BID PRN PRN Reason: Constipation Metoprolol Tartrate [Lopressor] 12.5 mg PO BID@0900,2100 Cyanocobalamin [Vitamin B-12] 1,000 mcg PO DAILY@0900 Ensure Clear 1 can PO DAILY@0900 Aspirin 81 mg PO DAILY@0900 Colchicine [Colcrys] 0.6 mg PO BID@0900,2100 Pantoprazole [Protonix] 40 mg PO DAILY@0600 Spironolactone [Aldactone] 12.5 mg PO DAILY@0600 Calcium Carbonate [Tums] 500 mg PO QID PRN PRN Reason: Indigestion Changed oxyCODONE HCL [oxyCODONE HCL (IR)] 10 mg PO TID PRN #4 tab PRN Reason: Pain Discontinued Insulin Lispro [humaLOG Kwikpen] 22 units SQ AC-BID@1200,1800 #0 ALPRAZolam [Xanax] 1 mg PO TID PRN #6 tab PRN Reason: Anxiety Dapagliflozin Propanediol [Farxiga] 10 mg PO DAILY@0900 DULoxetine HCL [Cymbalta] 60 mg PO BID@0900,2100 Bumetanide [BUMEX] 1 mg PO BID@0900,1600 tab Ferrous Sulfate [Iron (65 MG Elemental)] 325 mg PO BID@0900,2100 Insulin Lispro [humaLOG Kwikpen] 15 units SQ DAILY@0800 Discharge Medication List Clopidogrel [Plavix] 75 mg PO DAILY@0900 07/07/19 [History] traZODone HCL [Desyrel] 200 mg PO HS@2100 07/07/19 [History] Insulin Glargine,Hum.rec.anlog [Lantus Solostar Pen] 30 units SQ HS@1800 06/09/21 [History] Insulin Lispro [humaLOG Kwikpen] See Protocol SQ ACHS 09/21/23 [History] Acetaminophen Tab [Tylenol] 650 mg PO Q4H PRN 12/13/24 [History] Albuterol Sulfate [Ventolin HFA] 2 puff INHALATION RT-Q6H PRN 12/13/24 [History] Atorvastatin [Lipitor] 80 mg PO HS@209912/13/24 [History] Ondansetron [Zofran] 4 mg PO Q8H PRN 12/13/24 [History] Sennosides-Docusate Sodium [Senokot-S] 1 tab PO BID@0900,209912/13/24 [History] methocarbamoL [Robaxin-750] 750 mg PO QID PRN 12/13/24 [History] polyethylene glycoL 3350 [Miralax] 17 gm PO BID PRN 12/13/24 [History] Metoprolol Tartrate [Lopressor] 12.5 mg PO BID@0900,209901/03/25 [History] Aspirin 81 mg PO DAILY@89901/16/25 [History] Calcium Carbonate [Tums] 500 mg PO QID PRN 01/16/25 [History] Colchicine [Colcrys] 0.6 mg PO BID@0900,209901/16/25 [History] Cyanocobalamin [Vitamin B-12] 1,000 mcg PO DAILY@89901/16/25 [History] Ensure Clear 1 can PO DAILY@89901/16/25 [History] Ipratropium-Albuterol Nebulize [Duoneb 0.5 mg-3 mg/3 ml Soln] 3 ml INHALATION RT-Q4H 01/16/25 [History] Levothyroxine Sodium 75 mcg PO DAILY@59901/16/25 [History] Levothyroxine Sodium 200 mcg PO DAILY@59901/16/25 [History] Mag Hydrox/Al Hydrox/Simeth [Maalox] 30 ml PO Q4HR PRN 01/16/25 [History] Pantoprazole [Protonix] 40 mg PO DAILY@59901/16/25 [History] Sacubitril/Valsartan [Entresto 24 mg-26 mg Tablet] 0.5 tab PO BID@0900,2100 01/16/25 [History] Spironolactone [Aldactone] 12.5 mg PO DAILY@0600 01/16/25 [History] Ferrous Sulfate [Iron (65 MG Elemental)] 325 mg PO W/LUNCH tab 01/21/25 [Rx] INSULIN LISPRO (HumaLOG) [HumaLOG] 0 unit SQ ACHS each 01/21/25 [Rx] INSULIN LISPRO (HumaLOG) [HumaLOG] 6 unit SQ AC-TID each 01/21/25 [Rx] Insulin Glargine (Lantus) [Lantus Vial] 20 unit SQ 0700,2100 each 01/21/25 [Rx] LORazepam [Ativan] 0.5 mg PO TID PRN #6 tab 01/21/25 [Rx] Midodrine [ProAmatine] 5 mg PO AC-TID tab 01/21/25 [Rx] cefuroxime axetiL [Ceftin] 500 mg PO BID 5 Days #10 tab 01/21/25 [Rx] oxyCODONE HCL [oxyCODONE HCL (IR)] 10 mg PO TID PRN #4 tab 01/21/25 [Rx] Follow up Appointment(s)/Referral(s): Miguel Sy MD [Primary Care Provider] - 1-2 days Alfonso Knight MD [Medical Doctor] - 1 Week Discharge Disposition: TRANSFER TO SNF/F
[2025-01-21 13:29] VITALS: BP 114/68; PULSE 91; RESP 20; TEMP 98.7
--- NOTE | 2025-01-21 15:15 | P.PN ---
Subjective Progress Note Date: 01/21/25 This is a 69-year-old female patient with multiple medical problems including diabetes mellitus, GERD, hypertension, hyperlipidemia, pulmonary embolism, hypothyroidism, myocardial infarction, coronary disease with previous stent placement, panic disorder, former smoker who was recently discharged from here on January 08, 2025 for hypotension. She was brought back again yesterday 01/15/2025 from [facility] with lethargy hypoxemia and hypotension. Chest x-ray reveals cardiomegaly with a mild left pleural effusion. Dopplers of the lower extremity revealed no DVT in the right. There is a thrombus within the left popliteal vein. Echocardiogram revealed preserved left ventricular systolic function with an ejection fraction 55 to 60%. White count 10.5. Hemoglobin 9.5. Platelets 186. Sodium 129. Potassium 4.3. Bicarb 25. BUN 64. Creatinine 2.81. Glucose 203. Troponin 0.043, 0.042, 0.045. proBNP 2170. Urinalysis with large leukocyte esterase and high WBCs and many bacteria. She is seen today in consultation in the emergency department. Currently sitting up on a stretcher. Awake and alert in no acute distress. Maintaining O2 saturations in the 90s on 3 L/min per nasal cannula. She has been afebrile. Hemodynamically stable. Seen today on 01/17/2025, patient denies any shortness of breath, denies any chest pain, feeling better compared to how she felt yesterday. Her repeat echocardiogram showed improvement in her LV function ejection fraction is up to 55% with trace of pericardial effusion. Basic metabolic profile is normal bicarb is normal BUN is 49 creatinine 1.74, improved compared to yesterday's creatinine. Patient has some vague stomach discomfort. And she has a bit of diarrhea. She has been on ceftriaxone, and she is also on midodrine. Remains on Eliquis. Venous Doppler is suspicious for DVT, it was relatively difficult study according to the landscape technician, yesterday I recommended Lovenox at 80 mg subcu daily, today am recommending that the patient goes on Eliquis. She should have repeat venous Doppler in the next few weeks. The patient is seen today January 18, 2025 in follow-up on the selective care unit. She is currently sitting up in a chair at the bedside. Awake and alert in no acute distress. Maintaining O2 saturations in the 90s on 3 L/min per nasal cannula. Urine culture was positive for Klebsiella pneumoniae. Blood culture revealed no growth. White count 8.8. Hemoglobin 9.5. Platelets 191. Sodium 137. Potassium 3.3. Bicarb 24. BUN 33. Creatinine 1.13. Glucose 189. She remains on ceftriaxone. Anticoagulated with Eliquis. Ativan as needed for anxiety. The patient is seen today January 19, 2025 in follow-up on the selective care unit. She is currently resting in bed. Awake and alert in no acute distress. Maintaining O2 saturations in the 90s on 3 L/min per nasal cannula. She is afebrile. Hemodynamically stable. Urine culture was positive for Klebsiella pneumoniae. Blood culture was no growth. Sodium 137. Potassium 3.9. Bicarb 28. BUN 30. Creatinine 1.20. Glucose 322. She is continued on DuoNeb inhalations. Continued on ceftriaxone. Anticoagulated with Eliquis The patient is seen today January 20, 2025 in follow-up on the selective care unit. She is currently sitting up in a chair. Awake and alert in no acute distress. Maintaining good O2 saturations in the 90s on 2 L/min per nasal cannula. Follo w-up chest x-ray reveals cardiomegaly with pulmonary vascular congestion and small bilateral effusions. Urine culture was positive for Klebsiella pneumoniae. Blood culture revealed no growth. White count 4.5. Hemoglobin 9.0. Platelets 162. Sodium 136. Potassium 4.1. Bicarb 24. BUN 22. Crea tinine 1.0. Glucose 378. She remains on ceftriaxone. Anticoagulated with Eliquis. Remains on oral diuretics. Continued on Lantus and Humalog sliding scale. The patient is seen today January 21, 2025 in follow-up on the selective care unit. She is awake and alert in no acute distress. Maintaining good O2 saturations in the 90s on 2 L/min per nasal cannula. She is afebrile. Hemodynamically st able. Blood culture revealed no growth. Urine culture positive for Klebsiella pneumoniae. White count 5.2. Hemoglobin 9.6. Platelets 156. Sodium 140. Potassium 4.1. Bicarb 22. BUN 18. Creatinine 0.94. Glucose 292. She remains on DuoNeb and elations. Continued on ceftriaxone. Anticoagulated with Eliquis. Objective - Vital Signs Vital signs: Vital Signs Temp 98.7 F 06/18/25 12:00 Pulse 91 01/21/25 12:00 Resp 20 01/21/25 12:00 BP 114/68 01/21/25 12:00 Pulse Ox 97 01/21/25 12:00 FiO2 Intake & Output 01/20/25 01/21/25 01/21/25 18:59 06:59 18:59 Intake Total 480 240 Output Total 500 Balance -20 240 Intake: Oral 480 240 Output: Urine 500 Other: Voiding Method Bedside Commode Bedside Commode # Voids 1 1 1 - Exam GENERAL EXAM: Alert, pleasant 69-year-old female, resting in bed, on 2 L nasal cannula, in no apparent distress. HEAD: Normocephalic. EYES: Normal reaction of pupils, equal size. NOSE: Clear with pink turbinates. THROAT: No erythema or exudates. NECK: No masses, no JVD. CHEST: No chest wall deformity. LUNGS: Equal air entry with crackles in the posterior bases. CVS: S1 and S2 normal with no audible murmur, regular rhythm. ABDOMEN: No hepatosplenomegaly, normal bowel sounds, no guarding or rigidity. SPINE: No scoliosis or deformity SKIN: No rashes CENTRAL NERVOUS SYSTEM: No focal deficits, tone is normal in all 4 extremities. EXTREMITIES: There is 1+ peripheral edema. No clubbing, no cyanosis. Peripheral pulses are intact. - Labs CBC & Chem 7: 01/21/25 06:17 01/21/25 06:17 Labs: Abnormal Lab Results - Last 24 Hours (Table) 01/20/25 01/20/25 01/21/25 Range/Units 16:49 20:11 05:55 RBC (4.10-5.20) 10*6/uL Hgb (12.0-15.0) g/dL Hct (37.2-46.3) % MCH (27.0-32.0) pg MCHC (32.0-37.0) g/dL Immature Gran # (0.00-0.04) 10*3/uL Immature Plt Fraction (1.1-6.1) % BUN (7-17) mg/dL Glucose (74-99) mg/dL POC Glucose (mg/dL) 366 H 412 H 287 H (70-110) mg/dL Calcium (8.4-10.2) mg/dL Alkaline Phosphatase (38-126) U/L Albumin (3.5-5.0) g/dL 01/21/25 01/21/25 01/21/25 Range/Units 06:17 06:17 11:42 RBC 3.96 L (4.10-5.20) 10*6/uL Hgb 9.6 L (12.0-15.0) g/dL Hct 33.9 L (37.2-46.3) % MCH 24.2 L (27.0-32.0) pg MCHC 28.3 L (32.0-37.0) g/dL Immature Gran # 0.05 H (0.00-0.04) 10*3/uL Immature Plt Fraction 7.9 H (1.1-6.1) % BUN 18 H (7-17) mg/dL Glucose 292 H (74-99) mg/dL POC Glucose (mg/dL) 380 H (70-110) mg/dL Calcium 8.1 L (8.4-10.2) mg/dL Alkaline Phosphatase 184 H (38-126) U/L Albumin 2.8 L (3.5-5.0) g/dL Microbiology - Last 24 Hours (Table) 01/15/25 23:19 Blood Culture - Final Blood Assessment and Plan Assessment: Generalized weakness secondary to a urinary tract infection Urinary tract infection secondary to Klebsiella pneumoniae remains on ceftriaxone Leukocytosis secondary to above Acute kidney injury secondary to above Hyponatremia Acute hypoxic respiratory failure secondary to an acute exacerbation of systolic congestive heart failure with ejection fraction of 45% Diabetes mellitus with hyperglycemia Possible acute versus chronic left lower extremity DVT, anticoagulated with Eliquis Recurrent left pleural effusion with previous thoracentesis on 12/20/2024, negative for malignancy Hypoxic respiratory failure secondary to above Coronary artery disease with previous stent placement 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 pulmonary embolism Hypertension Hyperlipidemia Anemia of chronic disease Chronic kidney disease stage III Hypothyroidism Poor gait function with frequent falls Former smoker Poor overall functional performance based on the above-mentioned multiple rae rbidities currently in an ECF Plan: The patient was seen and evaluated Labs and medications reviewed Remains on oral diuretics Remains on ceftriaxone Remains on Eliquis Stable on 2 L/min per nasal cannula Increase her activity as tolerated Plan is for [facility] at discharge, possibly today I have personally seen and examined the patient, performed the documentation and the assessment and plan as written. Number of minutes spent on the visit: 10 Dictation was produced using [employer] dictation software. Please excuse any grammatical, word or spelling errors.
--- NOTE | 2025-01-26 07:01 | CDI ---
Documentation Clarification Form Date: 01/26/25 From: Nettie Small Admit Date: 01/16/2025 01:51:00 AM Patient Name: Rosalinda Brothers Visit Number: [id number] Discharge Date: 01/21/2025 03:45:00 PM ATTENTION: The Clinical Documentation Specialists (CDI) and [facility] Coding Staff appreciate your assistance in clarifying documentation. Please respond to the clarification below the line at the bottom and electronically sign. The CDI & [facility] Coding staff will review the response and follow-up if needed. Please note: Queries are made part of the Legal Health Record. If you have any questions, please contact the author of this message via ITS. Doctor/Provider: Francisco Vela., Sepsis is documented in the ED Note and in Nephrology progress notes, which may lack sufficient clinical evidence/support in the medical record. Additional clarification is requested. History/Risk Factors: T2DM with hyperglycemia, CKD, neuropathy & Charcot syndrome: HLD Clinical Indicators: Presents with hypoxia with oxygen in the80 over the last 2 days. UTI due to Klebsiella pneumonia. ATN. T2DM uncontrolled with hyperglycemia. Acute hypoxic respiratory failure secondary to acute exacerbation of systolic CHF. Acute thrombus within the left popliteal vein. BP 69/35 MAP: 49, 82, 65, 82, 65, 66 (01/15-01/16) WBC: 10.59, Neutrophils: 9.20 P- 101, R- 28 Lactic acid: 1.9 GCS = 15 Treatment: IV antibiotics, IV fluids, O2 @ 3 L NC Please clarify if sepsis due to Klebsiella pneumonia is a valid principal diagnosis? [ ] No, Sepsis is ruled out [ x ] Yes, Klebsiella pneumonia sepsis is present with severe sepsis as evidence by (additional clinical support): [ ] Yes, Klebsiella pneumonia sepsis is present without severe sepsis as evidence by (additional clinical support): [ ] Other (please specify diagnosis) [ ] Unable to determine MTDD
== END 2025-01-21 15:45 | DRG 871 ==
LOC: EC 22:52 → 3SCARD 01-16 01:51
PROVIDERS: ADMIT Hospitalist; ATTEND Hospitalist
DX: A41.59 Other Gram-negative sepsis (principal); I50.23 Acute on chronic systolic (congestive) heart failure; J96.01 Acute respiratory failure with hypoxia; N17.0 Acute kidney failure with tubular necrosis; I31.39 Other pericardial effusion (noninflammatory); I82.432 Acute embolism and thrombosis of left popliteal vein; I13.0 Hypertensive heart and chronic kidney disease with heart failure and stage 1 through stage 4 chronic kidney disease, or unspecified chronic kidney disease; E87.1 Hypo-osmolality and hyponatremia; D68.51 Activated protein C resistance; N39.0 Urinary tract infection, site not specified; E11.22 Type 2 diabetes mellitus with diabetic chronic kidney disease; N18.30 Chronic kidney disease, stage 3 unspecified; D63.1 Anemia in chronic kidney disease; E66.9 Obesity, unspecified; F32.A Depression, unspecified; E03.9 Hypothyroidism, unspecified; E11.65 Type 2 diabetes mellitus with hyperglycemia; Z79.4 Long term (current) use of insulin; E11.41 Type 2 diabetes mellitus with diabetic mononeuropathy; E11.610 Type 2 diabetes mellitus with diabetic neuropathic arthropathy; R65.20 Severe sepsis without septic shock; B96.1 Klebsiella pneumoniae [K. pneumoniae] as the cause of diseases classified elsewhere; D50.9 Iron deficiency anemia, unspecified; Z68.32 Body mass index [BMI] 32.0-32.9, adult; I25.5 Ischemic cardiomyopathy; E78.5 Hyperlipidemia, unspecified; I95.9 Hypotension, unspecified; G89.29 Other chronic pain; F41.0 Panic disorder [episodic paroxysmal anxiety]; I25.10 Atherosclerotic heart disease of native coronary artery without angina pectoris; K58.0 Irritable bowel syndrome with diarrhea; G57.93 Unspecified mononeuropathy of bilateral lower limbs; M54.42 Lumbago with sciatica, left side; M54.41 Lumbago with sciatica, right side; I89.0 Lymphedema, not elsewhere classified; K21.9 Gastro-esophageal reflux disease without esophagitis; I25.2 Old myocardial infarction; R29.6 Repeated falls; Z79.82 Long term (current) use of aspirin; Z79.02 Long term (current) use of antithrombotics/antiplatelets; Z79.84 Long term (current) use of oral hypoglycemic drugs; Z79.890 Hormone replacement therapy; Z79.899 Other long term (current) drug therapy; Z87.891 Personal history of nicotine dependence; Z95.5 Presence of coronary angioplasty implant and graft; Z91.81 History of falling; Z87.440 Personal history of urinary (tract) infections; Z86.718 Personal history of other venous thrombosis and embolism; Z86.711 Personal history of pulmonary embolism; Z85.828 Personal history of other malignant neoplasm of skin; Z88.8 Allergy status to other drugs, medicaments and biological substances; Z88.6 Allergy status to analgesic agent; Z88.1 Allergy status to other antibiotic agents; Z91.041 Radiographic dye allergy status
CPT/HCPCS: 36415; 71045; 80048; 80053; 81001; 82607; 82728; 82747; 83540; 83550; 83605; 83735; 83880; 83921; 84484; 85025; 85610; 85730; 87040; 87077; 87086; 87186; 93005; 93308; 93970; 94640; 94760; 96361; 96365; 96372; 96375; 96376; 99291

== ENCOUNTER 2025-01-27 22:26 | Inpatient (IN) | payer MEDICARE, BC, OTHER ==
--- NOTE | 2025-01-27 22:30 | ED ---
Altered Mental Status HPI - General Stated Complaint: AMS Time Seen by Provider: 01/27/25 22:27 Source: RN notes reviewed, old records reviewed, Caregiver Mode of arrival: EMS Limitations: altered mental status - History of Present Illness Initial Comments: This is a 70-year-old female with recent inpatient hospitalization coming to the ER today for evaluation of altered mental status concern for recent medication changes uncontrollable shaking or tremor or episodes of confusion. Patient is awake and alert here in the ER without complaint new, patient does complain of back pain MD Complaint: altered mental status, confusion, other (Back pain) -: unknown Severity: mild Consistency of Symptoms: waxing and waning Associated Symptoms: denies other symptoms Treatments Prior to Arrival: oxygen - Related Data Home Medications Medication Instructions Recorded Confirmed Clopidogrel [Plavix] 75 mg PO DAILY@0900 07/07/19 01/16/25 traZODone HCL [Desyrel] 200 mg PO HS@2100 07/07/19 01/16/25 Insulin Glargine,Hum.rec.anlog 30 units SQ HS@1800 06/09/21 01/16/25 [Lantus Solostar Pen] Insulin Lispro [humaLOG Kwikpen] See Protocol SQ ACHS 09/21/23 01/16/25 Acetaminophen Tab [Tylenol] 650 mg PO Q4H PRN 12/13/24 01/16/25 Albuterol Sulfate [Ventolin HFA] 2 puff INHALATION RT-Q6H PRN 12/13/24 01/16/25 Atorvastatin [Lipitor] 80 mg PO HS@209912/13/24 01/16/25 Ondansetron [Zofran] 4 mg PO Q8H PRN 12/13/24 01/16/25 Sennosides-Docusate Sodium 1 tab PO BID@0900,209912/13/24 01/16/25 [Senokot-S] methocarbamoL [Robaxin-750] 750 mg PO QID PRN 12/13/24 01/16/25 polyethylene glycoL 3350 [Miralax] 17 gm PO BID PRN 12/13/24 01/16/25 Metoprolol Tartrate [Lopressor] 12.5 mg PO BID@0900,209901/03/25 01/16/25 Aspirin 81 mg PO DAILY@0900 01/16/25 01/16/25 Calcium Carbonate [Tums] 500 mg PO QID PRN 01/16/25 01/16/25 Colchicine [Colcrys] 0.6 mg PO BID@0900,209901/16/25 01/16/25 Cyanocobalamin [Vitamin B-12] 1,000 mcg PO DAILY@89901/16/25 01/16/25 Ensure Clear 1 can PO DAILY@89901/16/25 01/16/25 Ipratropium-Albuterol Nebulize 3 ml INHALATION RT-Q4H 01/16/25 01/16/25 [Duoneb 0.5 mg-3 mg/3 ml Soln] Levothyroxine Sodium 75 mcg PO DAILY@59901/16/25 01/16/25 Levothyroxine Sodium 200 mcg PO DAILY@59901/16/25 01/16/25 Mag Hydrox/Al Hydrox/Simeth 30 ml PO Q4HR PRN 01/16/25 01/16/25 [Maalox] Pantoprazole [Protonix] 40 mg PO DAILY@59901/16/25 01/16/25 Sacubitril/Valsartan [Entresto 24 0.5 tab PO BID@0900,209901/16/25 01/16/25 mg-26 mg Tablet] Spironolactone [Aldactone] 12.5 mg PO DAILY@59901/16/25 01/16/25 Previous Rx's Medication Instructions Recorded Apixaban [Eliquis] 10 mg PO BID #60 tab 01/21/25 Ferrous Sulfate [Iron (65 MG 325 mg PO W/LUNCH tab 01/21/25 Elemental)] INSULIN LISPRO (HumaLOG) [HumaLOG] 0 unit SQ ACHS each 01/21/25 INSULIN LISPRO (HumaLOG) [HumaLOG] 6 unit SQ AC-TID each 01/21/25 Insulin Glargine (Lantus) [Lantus 20 unit SQ 0700,2099 each 01/21/25 Vial] LORazepam [Ativan] 0.5 mg PO TID PRN #6 tab 01/21/25 Midodrine [ProAmatine] 5 mg PO AC-TID tab 01/21/25 cefuroxime axetiL [Ceftin] 500 mg PO BID 5 Days #10 tab 01/21/25 oxyCODONE HCL [oxyCODONE HCL (IR)] 10 mg PO TID PRN #4 tab 01/21/25 Allergies Allergy/AdvReac Type Severity Reaction Status Date / Time Iodinated Contrast Media Allergy Rash/Hives Verified 01/27/25 22:47 Iodine and Iodide Containing Allergy Rash/Hives Verified 01/27/25 22:47 Produc tositumomab iodine-131 Allergy Unknown Verified 01/27/25 22:47 liraglutide [From Saxenda] AdvReac Unknown Nausea & Verified 01/27/25 22:47 Vomiting NSAIDS (Non-Steroidal AdvReac Unknown Nausea & Verified 01/27/25 22:47 Anti-Inflamma Vomiting aspirin AdvReac Nausea & Verified 01/27/25 22:47 Vomiting with high doses azithromycin AdvReac Vomiting Verified 01/27/25 22:47 naproxen [From Naprosyn] AdvReac Nausea & Verified 01/27/25 22:47 Vomiting Review of Systems ROS Statement: Those systems with pertinent positive or pertinent negative responses have been documented in the HPI. ROS Other: All systems not noted in ROS Statement are negative. Past Medical History Past Medical History: Blood Disorder, Cancer, Diabetes Mellitus, Deep Vein Thrombosis (DVT), GERD/Reflux, Hyperlipidemia, Hypertension, Myocardial Infarc tion (NV), Neurologic Disorder, Osteoarthritis (OA), Pneumonia, Pulmonary Embolus (PE), Thyroid Disorder Additional Past Medical History / Comment(s): See Dr Babcock's H&P. Factor 5 Leiden, hx DVT L leg, hx PE L lung, hx NV X5, palpitations, IDDM type II, neuropathy bilateral legs/feet, lymphedema L leg, charcot syndrome L foot, chronic low back pain, bilateral sciatica, hx bronchitis, anemia, hypothyroid, constipation, hx UTI, IBS, sinus problems, worsening tremors, hx skin cancer removal, hx pelvic fracture, clausterphobia, hx severe vertigo, poor balance and prone to falls. Moderate pericardial effusion Last Myocardial Infarction Date:: January 2020 History of Any Multi-Drug Resistant Organisms: VRE Date of last positivie culture/infection: 08/24/23 MDRO Source:: Urine Past Surgical History: Appendectomy, Cholecystectomy, Heart Catheterization With Stent, Hernia Repair, Hysterectomy, Tonsillectomy Additional Past Surgical History / Comment(s): Bilateral salpingectomy, bilateral oophorectomy, abdominal hernia surgeries, L foot fracture, bilateral cataract removals, lumbar epidural injections. Past Anesthesia/Blood Transfusion Reactions: No Reported Reaction Additional Past Anesthesia/Blood Transfusion Reaction / Comment(s): Pt has received blood in past without reaction. Date of Last Stent Placement:: January 2020 Past Psychological History: Anxiety, Depression, Panic Disorder Additional Psychological History / Comment(s): Severe panic attacks. Clausterphobia. Smoking Status: Former smoker Past Alcohol Use History: None Reported Additional Past Alcohol Use History / Comment(s): STARTED SMOKING AT AGE 20, quit smoking in 2012, smoked 1ppd. Past Drug Use History: None Reported - Past Family History Mother Family Medical History: COPD Additional Family Medical History / Comment(s): Mother was a smoker. Father Family Medical History: Cancer Additional Family Medical History / Comment(s): Lung cancer. Father was a smoker. Son(s) Family Medical History: Deep Vein Thrombosis (DVT) General Exam General appearance: alert, in no apparent distress Head exam: Present: atraumatic, normocephalic, normal inspection Eye exam: Present: normal appearance, PERRL, EOMI. Absent: scleral icterus, conjunctival injection, periorbital swelling ENT exam: Present: normal exam, mucous membranes moist Neck exam: Present: normal inspection. Absent: tenderness, meningismus, lymphadenopathy Respiratory exam: Present: normal lung sounds bilaterally. Absent: respiratory distress, wheezes, rales, rhonchi, stridor Cardiovascular Exam: Present: regular rate, normal rhythm, normal heart sounds. Absent: systolic murmur, diastolic murmur, rubs, gallop, clicks GI/Abdominal exam: Present: soft, normal bowel sounds. Absent: distended, tenderness, guarding, rebound, rigid Extremities exam: Present: normal inspection, full ROM, normal capillary refill. Absent: tenderness, pedal edema, joint swelling, calf tenderness Back exam: Present: normal inspection Neurological exam: Present: alert, oriented X3, CN II-XII intact Psychiatric exam: Present: normal affect, normal mood Skin exam: Present: warm, dry, intact, normal color. Absent: rash Course Vital Signs 01/27/25 01/28/25 01/28/25 22:33 00:16 02:00 Temperature 98.0 F 98.2 F Pulse Rate 75 87 92 Respiratory 18 18 18 Rate Blood Pressure 105/62 106/91 98/76 O2 Sat by Pulse 100 100 100 Oximetry - Reevaluation(s) Reevaluation #1: 01/28/25 00:00 Medical records reviewed Reevaluation #2: 01/28/25 04:58 No real improvement in patient's symptoms here in the ER mental status is improved still with pain Reevaluation #3: 01/28/25 04:58 Patient informed of results and questions answered Reevaluation #4: Was pt. sent in by a medical professional or institution (, [facility], [employer], urgent care, hospital, or detention...) When possible be specific @ -no Did you speak to anyone other than the patient for history (EMS, parent, family, police, friend...)? What history was obtained from this source @ -no Did you review nursing and triage notes (agree or disagree)? Why? @ -agree Are old charts reviewed (outside hosp., previous admission, EMS record, old EKG, old radiological studies, urgent care reports/EKG's, detention records)? R eport findings @ -yes Differential Diagnosis (chest pain, altered mental status, abdominal pain women, abdominal pain men, vaginal bleeding, weakness, fever, dyspnea, syncope, headache, dizziness, GI bleed, back pain, seizure, CVA, palpatations, mental health, musculoskeletal)? @ -prior EKG interpreted by me (3pts min.). @ -yes X-rays interpreted by me (1pt min.). @ -yes negative for acute disease CT interpreted by me (1pt min.). @ -no U/S interpreted by me (1pt. min.). @ -no What testing was considered but not performed or refused? (CT, X-rays, U/S, labs)? Why? @ -none What meds were considered but not given or refused? Why? @ -none Did you discuss the management of the patient with other professionals (professionals i.e. [facility] Hollis, [employer], lab, RT, psych nurse, director of social media marketing, customer service representative teller, teacher, vessel traffic officer, disability case manager)? Give summary @ -no Was smoking cessation discussed for >3mins.? @ -no Was critical care preformed (if so, how long)? @ -no Were there social determinants of health that impacted care today? How? (Homelessness, low income, unemployed, alcoholism, drug addiction, transportation, low edu. Level, literacy, decrease access to med. care, penitentiary, rehab)? @ -none Was there de-escalation of care discussed even if they declined (Discuss DNR or withdrawal of care, Hospice)? DNR status @ -no What co-morbidities impacted this encounter? (DM, HTN, Smoking, COPD, CAD, Cancer, CVA, ARF, Chemo, Hep., AIDS, mental health diagnosis, sleep apnea, morbid obesity)? @ -none Was patient admitted / discharged? Hospital course, mention meds given and route, prescriptions, significant lab abnormalities, going to OR and other pertinent info. @ - Undiagnosed new problem with uncertain prognosis? @ -no Drug Therapy requiring intensive monitoring for toxicity (Heparin, Nitro, Insulin, Cardizem)? @ -no Were any procedures done? @ -no Diagnosis/symptom? @ - Acute, or Chronic, or Acute on Chronic? @ -Acute Uncomplicated (without systemic symptoms) or Complicated (systemic symptoms)? @ -Complicated Side effects of treatment? @ -no Exacerbation, Progression, or Severe Exacerbation? @ -exacerbation Poses a threat to life or bodily function? How? (Chest pain, USA, NV, pneumonia, PE, COPD, DKA, ARF, appy, cholecystitis, CVA, Diverticulitis, Homicidal, Suicidal, threat to staff... and all critical care pts) @ -yes Reevaluation #5: Differential Altered Mental Status: Hypoglycemia, DKA, hypercapnia, ETOH, overdose, CO poisoning, trauma, myxedema coma, HTN encephalopathy, infection, encephalitis, psychosis, intercranial hemorrhage, hepatic encephalopathy, meningitis, CVA, this is not meant to be an all-inclusive list - Consultations Consultation #1: Spoke with [facility] who agrees to admit this patient Medical Decision Making - Medical Decision Making 70-year-old female to the ER for evaluation patient is found to have back pain UTI altered mental status and bilateral pleural effusions, no respiratory distress patient will be admitted for IV antibiotics - Lab Data Result diagrams: 01/27/25 23:21 01/27/25 23:21 Lab Results 01/27/25 01/27/25 01/27/25 Range/Units 22:56 23:21 23:21 WBC 7.87 (4.50-10.00) 10*3/uL RBC 3.91 L (4.10-5.20) 10*6/uL Hgb 9.8 L (12.0-15.0) g/dL Hct 33.3 L (37.2-46.3) % MCV 85.2 (80.0-97.0) fL MCH 25.1 L (27.0-32.0) pg MCHC 29.4 L (32.0-37.0) g/dL Plt Count 197 (140-440) 10*3/uL Immature Gran % (Auto) 0.3 % Neutrophils % 70.2 % Lymphocytes % 22.2 % Monocytes % 3.9 % Eosinophils % 2.8 % Basophils % 0.6 % Immature Gran # 0.02 (0.00-0.04) 10*3/uL Neutrophils # 5.52 (1.80-7.70) 10*3/uL Lymphocytes # 1.75 (0.90-5.00) 10*3/uL Monocytes # 0.31 (0.20-1.00) 10*3/uL Eosinophils # 0.22 (0.04-0.35) 10*3/uL Basophils # 0.05 (0.00-0.10) 10*3/uL PT 12.1 (10.0-12.5) sec INR 1.1 (<1.2) APTT 24.0 (22.0-30.0) sec Sodium (137-145) mmol/L Potassium (3.5-5.1) mmol/L Chloride (98-107) mmol/L Carbon Dioxide (22-30) mmol/L Anion Gap mmol/L BUN (7-17) mg/dL Creatinine (0.52-1.04) mg/dL Est GFR (CKD-EPI)AfAm (>60 ml/min/1.73 sqM) Est GFR (CKD-EPI)NonAf (>60 ml/min/1.73 sqM) Glucose (74-99) mg/dL POC Glucose (mg/dL) 191 H (70-110) mg/dL POC Glu Deputy Clerk Of Court ID SELIMOVIC CONCHIS Calcium (8.4-10.2) mg/dL Magnesium (1.6-2.3) mg/dL Total Bilirubin (0.2-1.3) mg/dL AST (14-36) U/L ALT (4-34) U/L Alkaline Phosphatase (38-126) U/L Ammonia (<30) umol/L Troponin I (0.000-0.034) ng/mL Total Protein (6.3-8.2) g/dL Albumin (3.5-5.0) g/dL Urine Color Urine Appearance (Clear) Urine pH (5.0-8.0) Ur Specific Linn (1.001-1.035) Urine Protein (Negative) Urine Glucose (UA) (Negative) Urine Ketones (Negative) Urine Blood (Negative) Urine Nitrite (Negative) Urine Bilirubin (Negative) Urine Urobilinogen (<2.0) mg/dL Ur Leukocyte Esterase (Negative) Urine RBC (0-5) /hpf Urine WBC (0-5) /hpf Ur Squamous Epith Cells (0-4) /hpf Amorphous Sediment (None) /hpf Urine Bacteria (None) /hpf Hyaline Casts (0-2) /lpf Urine Opiates Screen (NotDetected) Ur Oxycodone Screen (NotDetected) Urine Methadone Screen (NotDetected) Ur Barbiturates Screen (NotDetected) U Tricyclic Antidepress (NotDetected) Ur Phencyclidine Scrn (NotDetected) Ur Amphetamines Screen (NotDetected) U Methamphetamines Scrn (NotDetected) U Benzodiazepines Scrn (NotDetected) Urine Cocaine Screen (NotDetected) U Marijuana (THC) Screen (NotDetected) 01/27/25 01/27/25 01/27/25 Range/Units 23:21 23:21 23:21 WBC (4.50-10.00) 10*3/uL RBC (4.10-5.20) 10*6/uL Hgb (12.0-15.0) g/dL Hct (37.2-46.3) % MCV (80.0-97.0) fL MCH (27.0-32.0) pg MCHC (32.0-37.0) g/dL Plt Count (140-440) 10*3/uL Immature Gran % (Auto) % Neutrophils % % Lymphocytes % % Monocytes % % Eosinophils % % Basophils % % Immature Gran # (0.00-0.04) 10*3/uL Neutrophils # (1.80-7.70) 10*3/uL Lymphocytes # (0.90-5.00) 10*3/uL Monocytes # (0.20-1.00) 10*3/uL Eosinophils # (0.04-0.35) 10*3/uL Basophils # (0.00-0.10) 10*3/uL PT (10.0-12.5) sec INR (<1.2) APTT (22.0-30.0) sec Sodium 134 L (137-145) mmol/L Potassium 5.7 H (3.5-5.1) mmol/L Chloride 102 (98-107) mmol/L Carbon Dioxide 25 (22-30) mmol/L Anion Gap 7 mmol/L BUN 18 H (7-17) mg/dL Creatinine 1.03 (0.52-1.04) mg/dL Est GFR (CKD-EPI)AfAm 63 (>60 ml/min/1.73 sqM) Est GFR (CKD-EPI)NonAf 55 (>60 ml/min/1.73 sqM) Glucose 186 H (74-99) mg/dL POC Glucose (mg/dL) (70-110) mg/dL POC Glu Deputy Clerk Of Court ID Calcium 8.1 L (8.4-10.2) mg/dL Magnesium 2.2 (1.6-2.3) mg/dL Total Bilirubin 0.6 (0.2-1.3) mg/dL AST 35 (14-36) U/L ALT 16 (4-34) U/L Alkaline Phosphatase 227 H (38-126) U/L Ammonia <9 (<30) umol/L Troponin I 0.024 (0.000-0.034) ng/mL Total Protein 6.8 (6.3-8.2) g/dL Albumin 3.1 L (3.5-5.0) g/dL Urine Color Urine Appearance (Clear) Urine pH (5.0-8.0) Ur Specific Linn (1.001-1.035) Urine Protein (Negative) Urine Glucose (UA) (Negative) Urine Ketones (Negative) Urine Blood (Negative) Urine Nitrite (Negative) Urine Bilirubin (Negative) Urine Urobilinogen (<2.0) mg/dL Ur Leukocyte Esterase (Negative) Urine RBC (0-5) /hpf Urine WBC (0-5) /hpf Ur Squamous Epith Cells (0-4) /hpf Amorphous Sediment (None) /hpf Urine Bacteria (None) /hpf Hyaline Casts (0-2) /lpf Urine Opiates Screen (NotDetected) Ur Oxycodone Screen (NotDetected) Urine Methadone Screen (NotDetected) Ur Barbiturates Screen (NotDetected) U Tricyclic Antidepress (NotDetected) Ur Phencyclidine Scrn (NotDetected) Ur Amphetamines Screen (NotDetected) U Methamphetamines Scrn (NotDetected) U Benzodiazepines Scrn (NotDetected) Urine Cocaine Screen (NotDetected) U Marijuana (THC) Screen (NotDetected) 01/28/25 Range/Units 02:50 WBC (4.50-10.00) 10*3/uL RBC (4.10-5.20) 10*6/uL Hgb (12.0-15.0) g/dL Hct (37.2-46.3) % MCV (80.0-97.0) fL MCH (27.0-32.0) pg MCHC (32.0-37.0) g/dL Plt Count (140-440) 10*3/uL Immature Gran % (Auto) % Neutrophils % % Lymphocytes % % Monocytes % % Eosinophils % % Basophils % % Immature Gran # (0.00-0.04) 10*3/uL Neutrophils # (1.80-7.70) 10*3/uL Lymphocytes # (0.90-5.00) 10*3/uL Monocytes # (0.20-1.00) 10*3/uL Eosinophils # (0.04-0.35) 10*3/uL Basophils # (0.00-0.10) 10*3/uL PT (10.0-12.5) sec INR (<1.2) APTT (22.0-30.0) sec Sodium (137-145) mmol/L Potassium (3.5-5.1) mmol/L Chloride (98-107) mmol/L Carbon Dioxide (22-30) mmol/L Anion Gap mmol/L BUN (7-17) mg/dL Creatinine (0.52-1.04) mg/dL Est GFR (CKD-EPI)AfAm (>60 ml/min/1.73 sqM) Est GFR (CKD-EPI)NonAf (>60 ml/min/1.73 sqM) Glucose (74-99) mg/dL POC Glucose (mg/dL) (70-110) mg/dL POC Glu Deputy Clerk Of Court ID Calcium (8.4-10.2) mg/dL Magnesium (1.6-2.3) mg/dL Total Bilirubin (0.2-1.3) mg/dL AST (14-36) U/L ALT (4-34) U/L Alkaline Phosphatase (38-126) U/L Ammonia (<30) umol/L Troponin I (0.000-0.034) ng/mL Total Protein (6.3-8.2) g/dL Albumin (3.5-5.0) g/dL Urine Color Yellow Urine Appearance Cloudy H (Clear) Urine pH 6.5 (5.0-8.0) Ur Specific Linn 1.019 (1.001-1.035) Urine Protein 1+ H (Negative) Urine Glucose (UA) 1+ H (Negative) Urine Ketones Negative (Negative) Urine Blood Trace H (Negative) Urine Nitrite Negative (Negative) Urine Bilirubin Negative (Negative) Urine Urobilinogen <2.0 (<2.0) mg/dL Ur Leukocyte Esterase Large H (Negative) Urine RBC 6 H (0-5) /hpf Urine WBC >182 H (0-5) /hpf Ur Squamous Epith Cells 2 (0-4) /hpf Amorphous Sediment Occasional H (None) /hpf Urine Bacteria Occasional H (None) /hpf Hyaline Casts 5 H (0-2) /lpf Urine Opiates Screen Not Detected (NotDetected) Ur Oxycodone Screen Detected H (NotDetected) Urine Methadone Screen Not Detected (NotDetected) Ur Barbiturates Screen Not Detected (NotDetected) U Tricyclic Antidepress Not Detected (NotDetected) Ur Phencyclidine Scrn Not Detected (NotDetected) Ur Amphetamines Screen Not Detected (NotDetected) U Methamphetamines Scrn Not Detected (NotDetected) U Benzodiazepines Scrn Detected H (NotDetected) Urine Cocaine Screen Not Detected (NotDetected) U Marijuana (THC) Screen Not Detected (NotDetected) - EKG Data -: EKG Interpreted by Me (EKG sinus 75 IL 190 QRS 90 QTc 402) - Radiology Data Radiology results: report reviewed (CT chest 7 pelvis positive bilateral pleural effusions), image reviewed Disposition Clinical Impression: LIAM (acute kidney injury), Generalized weakness, UTI (urinary tract infection), Back pain, Bilateral pleural effusion Disposition: ADMITTED IP TO THIS HOSP Condition: Fair Is patient prescribed a controlled substance at d/c from ED?: No Referrals: Miguel Sy MD [Primary Care Provider] - 1-2 days Time of Disposition: 05:00
[2025-01-27 22:57] LABS: Glucose,Whole Blood 191 mg/dL (70-110)
[2025-01-27 23:42] LABS: Basophils # (A) 0.05 10*3/uL (0.00-0.10); Basophils % (A) 0.6 %; Eosinophils # (A) 0.22 10*3/uL (0.04-0.35); Eosinophils % (A) 2.8 %; HCT 33.3 % (37.2-46.3); HGB 9.8 g/dL (12.0-15.0); Lymphocytes # (A) 1.75 10*3/uL (0.90-5.00); Lymphocytes % (A) 22.2 %; MCH 25.1 pg (27.0-32.0); MCHC 29.4 g/dL (32.0-37.0); MCV 85.2 fL (80.0-97.0); Monocytes # (A) 0.31 10*3/uL (0.20-1.00); Monocytes % (A) 3.9 %; Neutrophils # (A) 5.52 10*3/uL (1.80-7.70); Neutrophils % (A) 70.2 %; Platelet Count 197 10*3/uL (140-440); RBC 3.91 10*6/uL (4.10-5.20); RDW 21.5 % (11.5-14.5); WBC 7.87 10*3/uL (4.50-10.00)
[2025-01-27 23:52] LABS: ALT 16 U/L (4-34); African American GFR (CKD) 63 (>60 ml/min/1.73 sqM); Albumin 3.1 g/dL (3.5-5.0); Anion Gap 7 mmol/L; Blood Urea Nitrogen 18 mg/dL (7-17); Calcium 8.1 mg/dL (8.4-10.2); Carbon Dioxide 25 mmol/L (22-30); Chloride 102 mmol/L (98-107); Glucose 186 mg/dL (74-99); Non-African American GFR(CKD) 55 (>60 ml/min/1.73 sqM); Sodium 134 mmol/L (137-145); Total Bilirubin 0.6 mg/dL (0.2-1.3); Total Protein 6.8 g/dL (6.3-8.2)
[2025-01-27 23:55] LABS: Potassium 5.7 mmol/L (3.5-5.1)
[2025-01-27 23:56] LABS: AST 35 U/L (14-36); Alkaline Phosphatase 227 U/L (38-126); Magnesium 2.2 mg/dL (1.6-2.3)
[2025-01-28 00:06] LABS: INR 1.1 (<1.2); Prothrombin Time 12.1 sec (10.0-12.5)
[2025-01-28] MEDS: SODIUM CHLORIDE 0.9% 1,000 ML IV STA (00:07)
[2025-01-28 03:55] LABS: Amorphous Sediment,Urine Occasional /hpf; Appearance,Urine Cloudy (Clear); Bacteria,Urine Occasional /hpf; Bilirubin,Urine Negative (Negative); Blood,Urine Trace (Negative); Color,Urine Yellow; Glucose,Urine (UA) 1+ (Negative); Hyaline Casts,Urine 5 /lpf (0-2); Ketones,Urine Negative (Negative); Leukocyte Esterase,Urine Large (Negative); Nitrite,Urine Negative (Negative); PH, Urine 6.5 (5.0-8.0); Protein,Urine 1+ (Negative); RBC,Urine 6 /hpf (0-5); Specific Gravity,Urine 1.019 (1.001-1.035); Squamous Epithelial Cell,Urine 2 /hpf (0-4); Urobilinogen,Urine <2.0 mg/dL (<2.0); WBC,Urine >182 /hpf (0-5)
[2025-01-28 04:03] LABS: Amphetamine Screen,Urine Not Detected (NotDetected); Barbiturate Screen,Urine Not Detected (NotDetected); Benzodiazepines Screen,Urine Detected (NotDetected); Cocaine Screen,Urine Not Detected (NotDetected); Methadone Screen, Urine Not Detected (NotDetected); Opiate Screen,Urine Not Detected (NotDetected); Oxycodone Screen, Urine Detected (NotDetected); Phencyclidine Screen,Urine Not Detected (NotDetected); Tricyclic Antidepressant,Urine Not Detected (NotDetected); Urn Cannabinoid Scrn Not Detected (NotDetected)
--- NOTE | 2025-01-28 04:29 | CT ---
EXAM: CT Chest, Abdomen and Pelvis Without Intravenous Contrast CLINICAL HISTORY: ITS.REASON CT Reason: pain back pain TECHNIQUE: Axial computed tomography images of the chest, abdomen and pelvis without intravenous contrast. CTDI is 24.3 mGy and DLP is 1580.2 mGy-cm. This CT exam was performed using one or more of the following dose reduction techniques: automated exposure control, adjustment of the mA and/or kV according to patient size, and/or use of iterative reconstruction technique. Additional imaging of the neck was obtained to the level of the craniocervical junction. COMPARISON: CT Chest Abdomen Pelvis dated 07/15/2024 FINDINGS: Limitations: Limited evaluation in the absence of contrast. CHEST: Trachea: Partially calcified 4.5 x 4.2 x 3.3 cm pretracheal mass. This is increased in size from prior study dated 07/15/2024. Findings may be neoplastic in nature. Consider further workup. Lungs: Patent airway. No mass. No consolidation. Pleural space: Large left and moderate right pleural effusions. Findings may be due to volume overload. No pneumothorax. Heart: Cardiomegaly. Coronary artery calcifications. Pericardial effusion measuring up to 7 mm which may also be due to volume overload. Mediastinum: Mild esophageal thickening which may be inflammatory in nature. Thyroid: Unremarkable thyroid. ABDOMEN: Liver: Nodular contour of the liver which can be seen with cirrhotic morphology. Gallbladder and bile ducts: Cholecystectomy changes. No ductal dilation. Pancreas: Unremarkable. No ductal dilation. Spleen: Splenic granuloma. Adrenals: Unremarkable. No mass. Kidneys and ureters: No evidence of radiopaque renal calculi or signs of collecting system dilatation. Stomach and bowel: No evidence of bowel obstruction. No mucosal thickening. PELVIS: Appendix: No findings to suggest acute appendicitis. Bladder: Unremarkable. No stones. Reproductive: Hysterectomy changes. CHEST, ABDOMEN and PELVIS: Intraperitoneal space: Unremarkable. No significant fluid collection. No free air. Bones/joints: Degenerative changes in the spine. Degenerative changes in the spine. The visualized mandible is unremarkable . No acute fracture. Soft tissues: Surgical ralph noted within the rectus musculature. Vasculature: Prominent venous collaterals noted along the anterior pelvis. Atherosclerotic disease. Lymph nodes: Unremarkable. No enlarged lymph nodes. Other findings: Patient is edentulous. IMPRESSION: 1. Limited evaluation in the absence of contrast. 2. No evidence of radiopaque renal calculi or signs of collecting system dilatation. 3. Partially calcified 4.5 x 4.2 x 3.3 cm pretracheal mass. This is increased in size from prior study dated 07/15/2024. Findings may be neoplastic in nature. Consider further workup. 4. Large left and moderate right pleural effusions. Findings may be due to volume overload. 5. Pericardial effusion measuring up to 7 mm which may also be due to volume overload. 6. Nodular contour of the liver which can be seen with cirrhotic morphology. 7. Other incidental findings as described.
[2025-01-28] MEDS ORDERED: NALOXONE 0.4 MG/ML 1 ML VIAL IV PRN (04:56)
[2025-01-28] MEDS ORDERED: MORPHINE SULFATE 4 MG/ML SYRINGE IV PRN (04:56)
[2025-01-28] MEDS: ONDANSETRON 4 MG/2 ML VIAL IVP PRN (08:37)
[2025-01-28] MEDS ORDERED: IPRATROPIUM-ALBUTEROL 3 ML NEB INHALATION PRN (11:50)
[2025-01-28] MEDS ORDERED: ALBUTEROL HFA INHALER INHALATION PRN (11:50)
[2025-01-28] MEDS ORDERED: polyethylene glycoL 3350 17 GM POWD.PACK PO PRN (11:50)
[2025-01-28] MEDS ORDERED: ACETAMINOPHEN TAB 325 MG TAB PO PRN (11:50)
--- NOTE | 2025-01-28 12:06 | P.HPIM ---
History of Present Illness 70-year-old female was sent in here because uncontrollable shaking and confusion. Patient and family believes it is because of withdrawals from benzodiazepines patient was on huge dose of Xanax which was decreased and was discharged on Ativan in which was subsequently discontinued as an outpatient which I believe is appropriate. Although patient is found to have bilateral pleural effusions on the CAT scan of the abdomen pelvis chest that was done. Patient does have history of congestive heart failure EF of around 45 to 50% pat ient any significant orthopnea paroxysmal nocturnal dyspnea patient uses 3 L of oxygen as outpatient and is saturating well on 3 L. Patient complains of diffuse pain in the back and patient is on opiates for these 10 mg of oxycodone for a long time patient denied any constipation. Patient has significantly abnormal urine has patient has Klebsiella pneumonia in the urine in the past when questioned about UTI symptoms patient states she does have bad burning during micturition. Patient recently finished antibiotic therapy for UTI. Patient was also found to have pretracheal mass on the CAT scan which appeared to be larger than before. REVIEW OF SYSTEMS: All other systems are negative except those mentioned in the HPI PHYSICAL EXAMINATION: GENERAL: The patient is alert and oriented x3, not in any acute distress. Well developed, well nourished. HEENT: Pupils are round and equally reacting to light. EOMI. No scleral icterus. No conjunctival pallor. Normocephalic, atraumatic. No pharyngeal erythema. No thyromegaly. CARDIOVASCULAR: S1 and S2 present. No murmurs, rubs, or gallops. PULMONARY: Chest is clear to auscultation, no wheezing or crackles. ABDOMEN: Soft, diffuse mild subjective abdominal tenderness t, , nondistended, normoactive bowel sounds. No palpable organomegaly. MUSCULOSKELETAL: No joint swelling or deformity. EXTREMITIES: No cyanosis, clubbing, or pedal edema. NEUROLOGICAL: Gross neurological examination did not reveal any focal deficits. SKIN: No rashes. Assessment and plan -Bilateral pleural effusion probably secondary to congestive heart failure patient was started on low-dose of Lasix as her blood pressure is low. Patient is already on Entresto and Aldactone which will be resumed we will repeat other electrolytes potassium and kidney function patient potassium is slightly higher but that setting hemolyzed sample. - Possibility of urinary tract infection I am not 100% sure if patient has UTI patient is still on antibiotics patient does have symptoms of dysuria will trial consult infectious disease patient was started on Rocephin for now - Pretracheal mass neurosurgery will be consulted for possible biopsy - Consult failure chronic systolic function with acute exacerbation -. Patient has pleural effusions in the past and underwent paracentesis in the past - Anemia of chronic disease - History of DVT PE in the past patient has history of factor V Leyden deficiency patient is on Eliquis which will be resumed - Coronary artery disease with stents in the past patient also has ischemic cardiomyopathy - Hypertension DVT prophylaxis: On Eliquis Past Medical History Past Medical History: Blood Disorder, Cancer, Diabetes Mellitus, Deep Vein Thrombosis (DVT), GERD/Reflux, Hyperlipidemia, Hypertension, Myocardial Infarction (CO), Neurologic Disorder, Osteoarthritis (OA), Pneumonia, Pulmonary Embolus (PE), Thyroid Disorder Additional Past Medical History / Comment(s): See Dr Babcock's H&P. Factor 5 Leiden, hx DVT L leg, hx PE L lung, hx CO X5, palpitations, IDDM type II, neuropathy bilateral legs/feet, lymphedema L leg, charcot syndrome L foot, c hronic low back pain, bilateral sciatica, hx bronchitis, anemia, hypothyroid, constipation, hx UTI, IBS, sinus problems, worsening tremors, hx skin cancer removal, hx pelvic fracture, clausterphobia, hx severe vertigo, poor balance and prone to falls. Moderate pericardial effusion Last Myocardial Infarction Date:: January 2020 History of Any Multi-Drug Resistant Organisms: VRE Date of last positivie culture/infection: 08/24/23 MDRO Source:: Urine Past Surgical History: Appendectomy, Cholecystectomy, Heart Catheterization With Stent, Hernia Repair, Hysterectomy, Tonsillectomy Additional Past Surgical History / Comment(s): Bilateral salpingectomy, bilateral oophorectomy, abdominal hernia surgeries, L foot fracture, bilateral cataract removals, lumbar epidural injections. Past Anesthesia/Blood Transfusion Reactions: No Reported Reaction Additional Past Anesthesia/Blood Transfusion Reaction / Comment(s): Pt has received blood in past without reaction. Date of Last Stent Placement:: January 2020 Past Psychological History: Anxiety, Depression, Panic Disorder Additional Psychological History / Comment(s): Severe panic attacks. Clausterphobia. Smoking Status: Former smoker Past Alcohol Use History: None Reported Additional Past Alcohol Use History / Comment(s): STARTED SMOKING AT AGE 20, quit smoking in 2012, smoked 1ppd. Past Drug Use History: None Reported - Past Family History Mother Family Medical History: COPD Additional Family Medical History / Comment(s): Mother was a smoker. Father Family Medical History: Cancer Additional Family Medical History / Comment(s): Lung cancer. Father was a smoker. Son(s) Family Medical History: Deep Vein Thrombosis (DVT) Medications and Allergies Home Medications Medication Instructions Recorded Confirmed Type Clopidogrel [Plavix] 75 mg PO DAILY@0900 07/07/19 01/28/25 History traZODone HCL [Desyrel] 200 mg PO HS@209907/07/19 01/28/25 History Insulin Glargine,Hum.rec.anlog 20 units SQ BID 06/09/21 01/28/25 History [Lantus Solostar Pen] Insulin Lispro [humaLOG Kwikpen] See Protocol SQ ACHS 09/21/23 01/28/25 History Acetaminophen Tab [Tylenol] 650 mg PO Q4H PRN 12/13/24 01/28/25 History Albuterol Sulfate [Ventolin HFA] 2 puff INHALATION RT-Q6H PRN 12/13/24 01/28/25 History Atorvastatin [Lipitor] 80 mg PO HS@209912/13/24 01/28/25 History Ondansetron [Zofran] 4 mg PO Q8H PRN 12/13/24 01/28/25 History Sennosides-Docusate Sodium 1 tab PO BID@0900,209912/13/24 01/28/25 History [Senokot-S] methocarbamoL [Robaxin-750] 750 mg PO QID PRN 12/13/24 01/28/25 History polyethylene glycoL 3350 [Miralax] 17 gm PO BID PRN 12/13/24 01/28/25 History Metoprolol Tartrate [Lopressor] 12.5 mg PO BID@0900,209901/03/25 01/28/25 History Aspirin 81 mg PO DAILY@0900 01/16/25 01/28/25 History Calcium Carbonate [Tums] 500 mg PO QID PRN 01/16/25 01/28/25 History Colchicine [Colcrys] 0.6 mg PO BID@0900,209901/16/25 01/28/25 History Cyanocobalamin [Vitamin B-12] 1,000 mcg PO DAILY@0900 01/16/25 01/28/25 History Ipratropium-Albuterol Nebulize 3 ml INHALATION RT-Q4H PRN 01/16/25 01/28/25 History [Duoneb 0.5 mg-3 mg/3 ml Soln] Levothyroxine Sodium 75 mcg PO DAILY@59901/16/25 01/28/25 History Levothyroxine Sodium 200 mcg PO DAILY@59901/16/25 01/28/25 History Pantoprazole [Protonix] 40 mg PO DAILY@59901/16/25 01/28/25 History Sacubitril/Valsartan [Entresto 24 0.5 tab PO BID@0900,2100 01/16/25 01/28/25 History mg-26 mg Tablet] Spironolactone [Aldactone] 12.5 mg PO DAILY@59901/16/25 01/28/25 History Ferrous Sulfate [Iron (65 MG 325 mg PO W/LUNCH tab 01/21/25 01/28/25 Rx Elemental)] oxyCODONE HCL [oxyCODONE HCL (IR)] 10 mg PO TID PRN #4 tab 01/21/25 01/28/25 Rx Apixaban [Eliquis] 5 mg PO BID 01/28/25 01/28/25 History Hyoscyamine Sulfate [Levsin-Sl] 0.125 mg SL AC-TID PRN 01/28/25 01/28/25 History Insulin Lispro [humaLOG Kwikpen] 6 unit SQ AC-TID 01/28/25 01/28/25 History LORazepam [Ativan] 0.5 mg PO Q8H 01/28/25 01/28/25 History Magnesium Hydroxide [Milk of 2,400 mg PO Q4H PRN 01/28/25 01/28/25 History Magnesia] Midodrine [ProAmatine] 5 mg PO TID-W/MEALS 01/28/25 01/28/25 History Allergies Allergy/AdvReac Type Severity Reaction Status Date / Time Iodinated Contrast Media Allergy Rash/Hives Verified 01/28/25 07:55 Iodine and Iodide Containing Allergy Rash/Hives Verified 01/28/25 07:55 Produc tositumomab iodine-131 Allergy Unknown Verified 01/28/25 07:55 liraglutide [From Saxenda] AdvReac Unknown Nausea & Verified 01/28/25 07:55 Vomiting NSAIDS (Non-Steroidal AdvReac Unknown Nausea & Verified 01/28/25 07:55 Anti-Inflamma Vomiting aspirin AdvReac Nausea & Verified 01/28/25 07:55 Vomiting with high doses azithromycin AdvReac Vomiting Verified 01/28/25 07:55 naproxen [From Naprosyn] AdvReac Nausea & Verified 01/28/25 07:55 Vomiting Physical Exam Vitals: Vital Signs Temp Pulse Resp BP Pulse Ox 01/28/25 08:38 97.9 F 86 22 101/52 99 01/28/25 06:00 97.9 F 85 18 93/70 97 01/28/25 05:00 86 18 103/58 97 01/28/25 04:00 84 18 101/51 97 01/28/25 03:00 92 20 106/58 97 01/28/25 02:00 92 18 98/76 100 01/28/25 00:16 98.2 F 87 18 106/91 100 01/27/25 22:33 98.0 F 75 18 105/62 100 Intake and Output 01/27/25 01/28/25 01/28/25 22:59 06:59 14:59 Other: Weight 74.843 kg Results CBC & Chem 7: 01/27/25 23:21 01/27/25 23:21 Labs: Abnormal Lab Results - Last 24 Hours (Table) 01/27/25 01/27/25 01/27/25 Range/Units 22:56 23:21 23:21 RBC 3.91 L (4.10-5.20) 10*6/uL Hgb 9.8 L (12.0-15.0) g/dL Hct 33.3 L (37.2-46.3) % MCH 25.1 L (27.0-32.0) pg MCHC 29.4 L (32.0-37.0) g/dL Sodium 134 L (137-145) mmol/L Potassium 5.7 H (3.5-5.1) mmol/L BUN 18 H (7-17) mg/dL Glucose 186 H (74-99) mg/dL POC Glucose (mg/dL) 191 H (70-110) mg/dL Calcium 8.1 L (8.4-10.2) mg/dL Alkaline Phosphatase 227 H (38-126) U/L Albumin 3.1 L (3.5-5.0) g/dL Urine Appearance (Clear) Urine Protein (Negative) Urine Glucose (UA) (Negative) Urine Blood (Negative) Ur Leukocyte Esterase (Negative) Urine RBC (0-5) /hpf Urine WBC (0-5) /hpf Amorphous Sediment (None) /hpf Urine Bacteria (None) /hpf Hyaline Casts (0-2) /lpf Ur Oxycodone Screen (NotDetected) U Benzodiazepines Scrn (NotDetected) 01/28/25 Range/Units 02:50 RBC (4.10-5.20) 10*6/uL Hgb (12.0-15.0) g/dL Hct (37.2-46.3) % MCH (27.0-32.0) pg MCHC (32.0-37.0) g/dL Sodium (137-145) mmol/L Potassium (3.5-5.1) mmol/L BUN (7-17) mg/dL Glucose (74-99) mg/dL POC Glucose (mg/dL) (70-110) mg/dL Calcium (8.4-10.2) mg/dL Alkaline Phosphatase (38-126) U/L Albumin (3.5-5.0) g/dL Urine Appearance Cloudy H (Clear) Urine Protein 1+ H (Negative) Urine Glucose (UA) 1+ H (Negative) Urine Blood Trace H (Negative) Ur Leukocyte Esterase Large H (Negative) Urine RBC 6 H (0-5) /hpf Urine WBC >182 H (0-5) /hpf Amorphous Sediment Occasional H (None) /hpf Urine Bacteria Occasional H (None) /hpf Hyaline Casts 5 H (0-2) /lpf Ur Oxycodone Screen Detected H (NotDetected) U Benzodiazepines Scrn Detected H (NotDetected)
[2025-01-28 13:19] LABS: Glucose,Whole Blood 233 mg/dL (70-110)
[2025-01-28] MEDS: SODIUM CHLORIDE 0.9% 1,000 ML IV SCH (13:19)
[2025-01-28] MEDS: MIDODRINE 5 MG TAB PO SCH (13:22)
[2025-01-28] MEDS: INSULIN GLARGINE (LANTUS) 100 UNIT/ML SYR SQ SCH (13:23)
[2025-01-28] MEDS: INSULIN LISPRO (HumaLOG) 100 UNIT/ML 10 mL VL SQ SCH ×2 (13:27→13:28)
[2025-01-28] MEDS: FUROSEMIDE 10 MG/ML 2 ML VIAL IV SCH (13:34)
--- NOTE | 2025-01-28 15:04 | P.GSCN ---
History of Present Illness Consult date: 01/28/25 History of present illness: CHIEF COMPLAINT: Altered mental status HISTORY OF PRESENT ILLNESS: This is a 70-year-old female who was brought into the hospital for altered mental status, confusion and uncontrollable shaking. Family had believed that patient may be going from withdrawals from benzodiazepines. Patient complained of back pain and pain all over she had a CT scan chest abdomen pelvis completed that reported partially calcified 4.5 x 4.2 x 3.3 cm pretracheal mass. This is increased from prior study 07/15/2024. Findings may be neoplastic in nature. Also reported a large left and moderate right pleural effusion. Pericardial effusion. And cirrhotic liver. Surgical service has been consulted for the pretracheal mass. Patient does report having some dysphagia nausea and vomiting. But patient is confused and a poor historian. PAST MEDICAL HISTORY: Factor V Leiden,Diabetes Mellitus, Deep Vein Thrombosis (DVT), GERD/Reflux, Hyperlipidemia, Hypertension, Myocardial Infarction (IA), Neurologic Disorder, Osteoarthritis (OA), Pneumonia, Pulmonary Embolus (PE), Thyroid, hx IA X5, palpitations, IDDM type II, neuropathy bilateral legs/feet, lymphedema L leg, charcot syndrome L foot, chronic low back pain, bilateral sciatica, hx bronchitis, anemia, hypothyroid, constipation, hx UTI, IBS, sinus problems, worsening tremors, hx skin cancer removal, hx pelvic fracture, clausterphobia, hx severe vertigo, poor balance and prone to falls. Moderate pericardial effusion PAST SURGICAL HISTORY: appendectomy, Cholecystectomy, Heart Catheterization With Stent, Hernia Repair, Hysterectomy, Tonsillectomy, Bilateral salpingectomy, bilateral oophorectomy, abdominal hernia surgeries, L foot fracture, bilateral cataract removals, lumbar epidural injections. MEDICATIONS: See below ALLERGIES: See below SOCIAL HISTORY: No illicit drug use. REVIEW OF SYSTEMS: CONSTITUTIONAL: Denies fever or chills. HEENT: Denies blurred vision, vision changes, or eye pain. Denies hemoptysis CARDIOVASCULAR: Denies chest pain or pressure. RESPIRATORY: No shortness of breath. GASTROINTESTINAL: See HPI for pertinent findings HEMATOLOGIC: Denies bleeding disorders. GENITOURINARY: Denies any blood in urine or increased urinary frequency. SKIN: Denies pruitis. Denies rash. PHYSICAL EXAM: VITAL SIGNS: Reviewed GENERAL: Well-developed in no acute distress. HEENT: No sclera icterus. Extraocular movements grossly intact. Moist buccal mucosa. Head is atraumatic, normocephalic. No nasal drainage. ABDOMEN: Soft. Obese. Nondistended. Diffuse tenderness NEUROLOGIC: Confused LABORATORY DATA: WBC 7.87 Hgb 9.8 platelets 197 INR 1.1 Sodium 134 potassium is 5.7 creatinine 1.03 IMAGING: CT scan chest abdomen pelvis completed that reported partially calcified 4.5 x 4.2 x 3.3 cm pretracheal mass. This is increased from prior study 07/15/2024. Findings may be neoplastic in nature. Also reported a large left and moderate right pleural effusion. Pericardial effusion. And cirrhotic liver. ASSESSMENT: 1. Pretracheal mass that has increased in size PLAN: - Further recommendations forthcoming per surgeon - Place Eliquis and Plavix on hold for possible surgical intervention Physician Radarman note has been reviewed by physician. Signing provider agrees with the documented findings, assessment, and plan of care. Past Medical History Past Medical History: Blood Disorder, Cancer, Diabetes Mellitus, Deep Vein Thrombosis (DVT), GERD/Reflux, Hyperlipidemia, Hypertension, Myocardial Infarction (IA), Neurologic Disorder, Osteoarthritis (OA), Pneumonia, Pulmonary Embolus (PE), Thyroid Disorder Additional Past Medical History / Comment(s): See Dr Babcock's H&P. Factor 5 Le iden, hx DVT L leg, hx PE L lung, hx [place] X5, palpitations, IDDM type II, neuropathy bilateral legs/feet, lymphedema L leg, charcot syndrome L foot, chronic low back pain, bilateral sciatica, hx bronchitis, anemia, hypothyroid, constipation, hx UTI, IBS, sinus problems, worsening tremors, hx skin cancer removal, hx pelvic fracture, clausterphobia, hx severe vertigo, poor balance and prone to falls. Moderate pericardial effusion Last Myocardial Infarction Date:: January 2020 History of Any Multi-Drug Resistant Organisms: VRE Year Discovered:: 08/24/23 MDRO Source:: Urine Past Surgical History: Appendectomy, Cholecystectomy, Heart Catheterization With Stent, Hernia Repair, Hysterectomy, Tonsillectomy Additional Past Surgical History / Comment(s): Bilateral salpingectomy, bilateral oophorectomy, abdominal hernia surgeries, L foot fracture, bilateral cataract removals, lumbar epidural injections. Past Anesthesia/Blood Transfusion Reactions: No Reported Reaction Additional Past Anesthesia/Blood Transfusion Reaction / Comm: Pt has received blood in past without reaction. Date of Last Stent Placement:: January 2020 Past Psychological History: Anxiety, Depression, Panic Disorder Additional Psychological History / Comment(s): Severe panic attacks. Clausterphobia. Smoking Status: Former smoker Past Alcohol Use History: None Reported Additional Past Alcohol Use History / Comment(s): STARTED SMOKING AT AGE 20, quit smoking in 2012, smoked 1ppd. Past Drug Use History: None Reported - Past Family History Mother Family Medical History: COPD Additional Family Medical History / Comment(s): Mother was a smoker. Father Family Medical History: Cancer Additional Family Medical History / Comment(s): Lung cancer. Father was a smoker. Son(s) Family Medical History: Deep Vein Thrombosis (DVT) Medications and Allergies Home Medications Medication Instructions Recorded Confirmed Type Clopidogrel [Plavix] 75 mg PO DAILY@0900 07/07/19 01/28/25 History traZODone HCL [Desyrel] 200 mg PO HS@209907/07/19 01/28/25 History Insulin Glargine,Hum.rec.anlog 20 units SQ BID 06/09/21 01/28/25 History [Lantus Solostar Pen] Insulin Lispro [humaLOG Kwikpen] See Protocol SQ ACHS 09/21/23 01/28/25 History Acetaminophen Tab [Tylenol] 650 mg PO Q4H PRN 12/13/24 01/28/25 History Albuterol Sulfate [Ventolin HFA] 2 puff INHALATION RT-Q6H PRN 12/13/24 01/28/25 History Atorvastatin [Lipitor] 80 mg PO HS@209912/13/24 01/28/25 History Ondansetron [Zofran] 4 mg PO Q8H PRN 12/13/24 01/28/25 History Sennosides-Docusate Sodium 1 tab PO BID@0900,209912/13/24 01/28/25 History [Senokot-S] methocarbamoL [Robaxin-750] 750 mg PO QID PRN 12/13/24 01/28/25 History polyethylene glycoL 3350 [Miralax] 17 gm PO BID PRN 12/13/24 01/28/25 History Metoprolol Tartrate [Lopressor] 12.5 mg PO BID@0900,209901/03/25 01/28/25 History Aspirin 81 mg PO DAILY@89901/16/25 01/28/25 History Calcium Carbonate [Tums] 500 mg PO QID PRN 01/16/25 01/28/25 History Colchicine [Colcrys] 0.6 mg PO BID@0900,209901/16/25 01/28/25 History Cyanocobalamin [Vitamin B-12] 1,000 mcg PO DAILY@89901/16/25 01/28/25 History Ipratropium-Albuterol Nebulize 3 ml INHALATION RT-Q4H PRN 01/16/25 01/28/25 History [Duoneb 0.5 mg-3 mg/3 ml Soln] Levothyroxine Sodium 75 mcg PO DAILY@59901/16/25 01/28/25 History Levothyroxine Sodium 200 mcg PO DAILY@59901/16/25 01/28/25 History Pantoprazole [Protonix] 40 mg PO DAILY@59901/16/25 01/28/25 History Sacubitril/Valsartan [Entresto 24 0.5 tab PO BID@899,209901/16/25 01/28/25 History mg-26 mg Tablet] Spironolactone [Aldactone] 12.5 mg PO DAILY@59901/16/25 01/28/25 History Ferrous Sulfate [Iron (65 MG 325 mg PO W/LUNCH tab 01/21/25 01/28/25 Rx Elemental)] oxyCODONE HCL [oxyCODONE HCL (IR)] 10 mg PO TID PRN #4 tab 01/21/25 01/28/25 Rx Apixaban [Eliquis] 5 mg PO BID 01/28/25 01/28/25 History Hyoscyamine Sulfate [Levsin-Sl] 0.125 mg SL AC-TID PRN 01/28/25 01/28/25 History Insulin Lispro [humaLOG Kwikpen] 6 unit SQ AC-TID 01/28/25 01/28/25 History LORazepam [Ativan] 0.5 mg PO Q8H 01/28/25 01/28/25 History Magnesium Hydroxide [Milk of 2,400 mg PO Q4H PRN 01/28/25 01/28/25 History Magnesia] Midodrine [ProAmatine] 5 mg PO TID-W/MEALS 01/28/25 01/28/25 History Allergies Allergy/AdvReac Type Severity Reaction Status Date / Time Iodinated Contrast Media Allergy Rash/Hives Verified 01/28/25 07:55 Iodine and Iodide Containing Allergy Rash/Hives Verified 01/28/25 07:55 Produc tositumomab iodine-131 Allergy Unknown Verified 01/28/25 07:55 liraglutide [From Saxenda] AdvReac Unknown Nausea & Verified 01/28/25 07:55 Vomiting NSAIDS (Non-Steroidal AdvReac Unknown Nausea & Verified 01/28/25 07:55 Anti-Inflamma Vomiting aspirin AdvReac Nausea & Verified 01/28/25 07:55 Vomiting with high doses azithromycin AdvReac Vomiting Verified 01/28/25 07:55 naproxen [From Naprosyn] AdvReac Nausea & Verified 01/28/25 07:55 Vomiting Surgical - Exam Vital Signs Temp Pulse Resp BP Pulse Ox 98.0 F 75 18 105/62 100 01/27/25 22:33 01/27/25 22:33 01/27/25 22:33 01/27/25 22:33 01/27/25 22:33 Results - Labs 01/27/25 23:21 01/27/25 23:21 Abnormal Lab Results - Last 24 Hours (Table) 01/27/25 01/27/25 01/27/25 Range/Units 22:56 23:21 23:21 RBC 3.91 L (4.10-5.20) 10*6/uL Hgb 9.8 L (12.0-15.0) g/dL Hct 33.3 L (37.2-46.3) % MCH 25.1 L (27.0-32.0) pg MCHC 29.4 L (32.0-37.0) g/dL Sodium 134 L (137-145) mmol/L Potassium 5.7 H (3.5-5.1) mmol/L BUN 18 H (7-17) mg/dL Glucose 186 H (74-99) mg/dL POC Glucose (mg/dL) 191 H (70-110) mg/dL Calcium 8.1 L (8.4-10.2) mg/dL Alkaline Phosphatase 227 H (38-126) U/L Albumin 3.1 L (3.5-5.0) g/dL Urine Appearance (Clear) Urine Protein (Negative) Urine Glucose (UA) (Negative) Urine Blood (Negative) Ur Leukocyte Esterase (Negative) Urine RBC (0-5) /hpf Urine WBC (0-5) /hpf Amorphous Sediment (None) /hpf Urine Bacteria (None) /hpf Hyaline Casts (0-2) /lpf Ur Oxycodone Screen (NotDetected) U Benzodiazepines Scrn (NotDetected) 01/28/25 01/28/25 Range/Units 02:50 13:18 RBC (4.10-5.20) 10*6/uL Hgb (12.0-15.0) g/dL Hct (37.2-46.3) % MCH (27.0-32.0) pg MCHC (32.0-37.0) g/dL Sodium (137-145) mmol/L Potassium (3.5-5.1) mmol/L BUN (7-17) mg/dL Glucose (74-99) mg/dL POC Glucose (mg/dL) 233 H (70-110) mg/dL Calcium (8.4-10.2) mg/dL Alkaline Phosphatase (38-126) U/L Albumin (3.5-5.0) g/dL Urine Appearance Cloudy H (Clear) Urine Protein 1+ H (Negative) Urine Glucose (UA) 1+ H (Negative) Urine Blood Trace H (Negative) Ur Leukocyte Esterase Large H (Negative) Urine RBC 6 H (0-5) /hpf Urine WBC >182 H (0-5) /hpf Amorphous Sediment Occasional H (None) /hpf Urine Bacteria Occasional H (None) /hpf Hyaline Casts 5 H (0-2) /lpf Ur Oxycodone Screen Detected H (NotDetected) U Benzodiazepines Scrn Detected H (NotDetected) Diabetes panel 01/27/25 Range/Units 23:21 Sodium 134 L (137-145) mmol/L Potassium 5.7 H (3.5-5.1) mmol/L Chloride 102 (98-107) mmol/L Carbon Dioxide 25 (22-30) mmol/L BUN 18 H (7-17) mg/dL Creatinine 1.03 (0.52-1.04) mg/dL Glucose 186 H (74-99) mg/dL Calcium 8.1 L (8.4-10.2) mg/dL AST 35 (14-36) U/L ALT 16 (4-34) U/L Alkaline Phosphatase 227 H (38-126) U/L Total Protein 6.8 (6.3-8.2) g/dL Albumin 3.1 L (3.5-5.0) g/dL Calcium panel 01/27/25 Range/Units 23:21 Calcium 8.1 L (8.4-10.2) mg/dL Albumin 3.1 L (3.5-5.0) g/dL Pituitary panel 01/27/25 Range/Units 23:21 Sodium 134 L (137-145) mmol/L Potassium 5.7 H (3.5-5.1) mmol/L Chloride 102 (98-107) mmol/L Carbon Dioxide 25 (22-30) mmol/L BUN 18 H (7-17) mg/dL Creatinine 1.03 (0.52-1.04) mg/dL Glucose 186 H (74-99) mg/dL Calcium 8.1 L (8.4-10.2) mg/dL Adrenal panel 01/27/25 Range/Units 23:21 Sodium 134 L (137-145) mmol/L Potassium 5.7 H (3.5-5.1) mmol/L Chloride 102 (98-107) mmol/L Carbon Dioxide 25 (22-30) mmol/L BUN 18 H (7-17) mg/dL Creatinine 1.03 (0.52-1.04) mg/dL Glucose 186 H (74-99) mg/dL Calcium 8.1 L (8.4-10.2) mg/dL Total Bilirubin 0.6 (0.2-1.3) mg/dL AST 35 (14-36) U/L ALT 16 (4-34) U/L Alkaline Phosphatase 227 H (38-126) U/L Total Protein 6.8 (6.3-8.2) g/dL Albumin 3.1 L (3.5-5.0) g/dL
[2025-01-28] MEDS: ALPRAZolam 1 MG TAB PO STA (16:07)
[2025-01-28 18:51] LABS: Glucose,Whole Blood 266 mg/dL (70-110)
[2025-01-28] MEDS: LORazepam 0.5 MG TAB PO SCH (18:58)
[2025-01-28] MEDS: ATORVASTATIN 80 MG TAB PO SCH (20:08)
[2025-01-28 20:09] LABS: Glucose,Whole Blood 315 mg/dL (70-110)
[2025-01-28] MEDS: traZODone HCL 100 MG TAB PO SCH (20:09)
[2025-01-28] MEDS: SACUBITRIL/VALSARTAN 24 MG-26 MG TABLET PO SCH (20:10)
[2025-01-28] MEDS: SENNOSIDES-DOCUSATE SODIUM 1 EACH TAB PO SCH (20:11)
[2025-01-28] MEDS: METOPROLOL TARTRATE 12.5 MG TAB PO SCH (20:11)
[2025-01-28] MEDS ORDERED: APIXABAN 5 MG TAB PO SCH (21:00)
[2025-01-28] MEDS: COLCHICINE 0.6 MG EACH PO SCH (21:02)
--- NOTE | 2025-01-28 22:19 | P.CNPUL ---
History of Present Illness Consult date: 01/28/25 Reason for consult: abnormal CXR/CT History of present illness: This is a 70-year-old female patient who was recently discharged to ECF after being treated for an acute urine tract infection/gram-negative. The patient has a multiple number of medical problems and comorbidities. The patient is known to have frequent urine tract infections, recurrent. Patient is known to have chronic systolic heart failure with an ejection fraction 45%, diabetes mellitus, previous history of a left lower extremity DVT maintained on anticoagulants with Eliquis, recurrent left-sided pleural effusion in the last thoracentesis was done on 12/20/2024 and the pleural fluid cytology has been negative for malignancy, coronary artery disease with previous stent placement and factor V Leyden with previous history of DVT and pulmonary embolism. Other comorbidities include hypertension, hyperlipidemia, chronic stage III kidney disease, chronic anemia, hypothyroidism, generalized weakness and frequent falls. The patient also suffers from chronic anxiety and she has been benzodiazepine dependent for many years. She has taken benzodiazepines in the form of high-dose Xanax and later on Ativan. During her stay in the ECF, the patient was taken off the dlilon zodiazepines. She did encounter increased shakiness and confusion and restlessness along with altered mentation. Benzodiazepine withdrawal was suspected . The patient was seen and evaluated in the emergency department. The patient reported diffuse pains in the back and throughout her body. Her UA was again abnormal and the blood work showed a white cell count of 7.8 with hemoglobin 9.8 and the platelet count of 197. Normal coagulation profile. BUN is 18 with a creatinine of 1.03 and a sodium level was 134 with a potassium level of 5.7. Urine drug screen was positive for oxycodone and benzodiazepines. Patient was maintained on oxygen at 2 L with a pulse ox of 96%. CAT scan of the chest abdomen and pelvis was also done and it showed a partially calcified 4.5 x 4.2 cm right paratracheal mass that has increased in size compared to the earlier CAT scan from July 2024. There was also a left-sided pleural effusion and a moderate-sized right-sided pleural effusion and pericardial effusion up to 7 mm in size and a nodular contour of the liver possibly indicating underlying cirrhosis. Patient is currently on IV Rocephin. The patient was started on Lasix 20 mg IV push every 12 hours. She is also on Aldactone 12.5 mg p.o. daily. Rest of the home medication resumed. She is on Lantus (20 units twice daily and sliding scale insulin coverage. Review of Systems CONSTITUTIONAL: Positive for generalized weakness. Denies any recent significant weight loss or weight gain. EYES: Denies change in vision. EARS, NOSE, MOUTH, THROAT: Denies headaches, denies sore throat. CARDIOVASCULAR: Denies chest pain, palpitations or syncopal episodes. RESPIRATORY: Positive for shortness of breath, cough, congestion no hemoptysis. GASTROINTESTINAL: Denies change in appetite, denies abdominal pain GENITOURINARY: Denies hematuria, denies infections. MUSKULOSKELETAL: Positive for lower extremity swelling. INTEGUMENTARY: Denies rash, denies eczema. NEUROLOGICAL: Denies recent memory loss, no recent seizure activity. PSYCHIATRIC: Denies anxiety, denies depression. HEMATOLOGIC/LYMPHATIC: Denies anemia, denies enlarged lymph nodes. Past Medical History Past Medical History: Blood Disorder, Cancer, Diabetes Mellitus, Deep Vein Thrombosis (DVT), GERD/Reflux, Hyperlipidemia, Hypertension, Myocardial Infarction ([place]), Neurologic Disorder, Osteoarthritis (OA), Pneumonia, Pulmonary Embolus (PE), Thyroid Disorder Additional Past Medical History / Comment(s): See Dr Babcock's H&P. Factor 5 Leiden, hx DVT L leg, hx PE L lung, hx [place] X5, palpitations, IDDM type II, neuropathy bilateral legs/feet, lymphedema L leg, charcot syndrome L foot, chronic low back pain, bilateral sciatica, hx bronchitis, anemia, hypothyroid, constipation, hx UTI, IBS, sinus problems, worsening tremors, hx skin cancer r emoval, hx pelvic fracture, clausterphobia, hx severe vertigo, poor balance and prone to falls. Moderate pericardial effusion Last Myocardial Infarction Date:: January 2020 History of Any Multi-Drug Resistant Organisms: VRE Date of last positivie culture/infection: 08/24/23 MDRO Source:: Urine Past Surgical History: Appendectomy, Cholecystectomy, Heart Catheterization With Stent, Hernia Repair, Hysterectomy, Tonsillectomy Additional Past Surgical History / Comment(s): Bilateral salpingectomy, bilateral oophorectomy, abdominal hernia surgeries, L foot fracture, bilateral cataract removals, lumbar epidural injections. Past Anesthesia/Blood Transfusion Reactions: No Reported Reaction Additional Past Anesthesia/Blood Transfusion Reaction / Comment(s): Pt has received blood in past without reaction. Date of Last Stent Placement:: January 2020 Past Psychological History: Anxiety, Depression, Panic Disorder Additional Psychological History / Comment(s): Severe panic attacks. Clausterphobia. Smoking Status: Former smoker Past Alcohol Use History: None Reported Additional Past Alcohol Use History / Comment(s): STARTED SMOKING AT AGE 20, quit smoking in 2012, smoked 1ppd. Past Drug Use History: None Reported - Past Family History Mother Family Medical History: COPD Additional Family Medical History / Comment(s): Mother was a smoker. Father Family Medical History: Cancer Additional Family Medical History / Comment(s): Lung cancer. Father was a smoker. Son(s) Family Medical History: Deep Vein Thrombosis (DVT) Medications and Allergies Home Medications Medication Instructions Recorded Confirmed Type Clopidogrel [Plavix] 75 mg PO DAILY@0900 07/07/19 01/28/25 History traZODone HCL [Desyrel] 200 mg PO HS@209907/07/19 01/28/25 History Insulin Glargine,Hum.rec.anlog 20 units SQ BID 06/09/21 01/28/25 History [Lantus Solostar Pen] Insulin Lispro [humaLOG Kwikpen] See Protocol SQ ACHS 09/21/23 01/28/25 History Acetaminophen Tab [Tylenol] 650 mg PO Q4H PRN 12/13/24 01/28/25 History Albuterol Sulfate [Ventolin HFA] 2 puff INHALATION RT-Q6H PRN 12/13/24 01/28/25 History Atorvastatin [Lipitor] 80 mg PO HS@209912/13/24 01/28/25 History Ondansetron [Zofran] 4 mg PO Q8H PRN 12/13/24 01/28/25 History Sennosides-Docusate Sodium 1 tab PO BID@0900,209912/13/24 01/28/25 History [Senokot-S] methocarbamoL [Robaxin-750] 750 mg PO QID PRN 12/13/24 01/28/25 History polyethylene glycoL 3350 [Miralax] 17 gm PO BID PRN 12/13/24 01/28/25 History Metoprolol Tartrate [Lopressor] 12.5 mg PO BID@0900,209901/03/25 01/28/25 History Aspirin 81 mg PO DAILY@89901/16/25 01/28/25 History Calcium Carbonate [Tums] 500 mg PO QID PRN 01/16/25 01/28/25 History Colchicine [Colcrys] 0.6 mg PO BID@0900,209901/16/25 01/28/25 History Cyanocobalamin [Vitamin B-12] 1,000 mcg PO DAILY@89901/16/25 01/28/25 History Ipratropium-Albuterol Nebulize 3 ml INHALATION RT-Q4H PRN 01/16/25 01/28/25 History [Duoneb 0.5 mg-3 mg/3 ml Soln] Levothyroxine Sodium 75 mcg PO DAILY@59901/16/25 01/28/25 History Levothyroxine Sodium 200 mcg PO DAILY@59901/16/25 01/28/25 History Pantoprazole [Protonix] 40 mg PO DAILY@59901/16/25 01/28/25 History Sacubitril/Valsartan [Entresto 24 0.5 tab PO BID@09,209901/16/25 01/28/25 History mg-26 mg Tablet] Spironolactone [Aldactone] 12.5 mg PO DAILY@59901/16/25 01/28/25 History Ferrous Sulfate [Iron (65 MG 325 mg PO W/LUNCH tab 01/21/25 01/28/25 Rx Elemental)] oxyCODONE HCL [oxyCODONE HCL (IR)] 10 mg PO TID PRN #4 tab 01/21/25 01/28/25 Rx Apixaban [Eliquis] 5 mg PO BID 01/28/25 01/28/25 History Hyoscyamine Sulfate [Levsin-Sl] 0.125 mg SL AC-TID PRN 01/28/25 01/28/25 History Insulin Lispro [humaLOG Kwikpen] 6 unit SQ AC-TID 01/28/25 01/28/25 History LORazepam [Ativan] 0.5 mg PO Q8H 01/28/25 01/28/25 History Magnesium Hydroxide [Milk of 2,400 mg PO Q4H PRN 01/28/25 01/28/25 History Magnesia] Midodrine [ProAmatine] 5 mg PO TID-W/MEALS 01/28/25 01/28/25 History Allergies Allergy/AdvReac Type Severity Reaction Status Date / Time Iodinated Contrast Media Allergy Rash/Hives Verified 01/28/25 07:55 Iodine and Iodide Containing Allergy Rash/Hives Verified 01/28/25 07:55 Produc tositumomab iodine-131 Allergy Unknown Verified 01/28/25 07:55 liraglutide [From Saxenda] AdvReac Unknown Nausea & Verified 01/28/25 07:55 Vomiting NSAIDS (Non-Steroidal AdvReac Unknown Nausea & Verified 01/28/25 07:55 Anti-Inflamma Vomiting aspirin AdvReac Nausea & Verified 01/28/25 07:55 Vomiting with high doses azithromycin AdvReac Vomiting Verified 01/28/25 07:55 naproxen [From Naprosyn] AdvReac Nausea & Verified 01/28/25 07:55 Vomiting Physical Exam Vitals: Vital Signs Temp Pulse Resp BP Pulse Ox 01/28/25 13:36 88 22 103/47 91 L 01/28/25 13:10 94/46 01/28/25 11:50 97.9 F 88 20 105/48 98 01/28/25 08:38 97.9 F 86 22 101/52 99 01/28/25 06:00 97.9 F 85 18 93/70 97 01/28/25 05:00 86 18 103/58 97 01/28/25 04:00 84 18 101/51 97 01/28/25 03:00 92 20 106/58 97 01/28/25 02:00 92 18 98/76 100 01/28/25 00:16 98.2 F 87 18 106/91 100 01/27/25 22:33 98.0 F 75 18 105/62 100 GENERAL EXAM: Alert, 69-year-old female, sitting up in a chair, on 2 L nasal cannula, in no apparent distress. The patient seems to be anxious. No significant respiratory distress at rest. No agitation. HEAD: Normocephalic. EYES: Normal reaction of pupils, equal size. NOSE: Clear with pink turbinates. THROAT: No erythema or exudates. NECK: No masses, no JVD. CHEST: No chest wall deformity. LUNGS: Equal air entry with crackles in the posterior bases. Diminished breath sound lung bases bilaterally on auscultation. CVS: S1 and S2 normal with no audible murmur, regular rhythm. ABDOMEN: No hepatosplenomegaly, normal bowel sounds, no guarding or rigidity. SPINE: No scoliosis or deformity SKIN: No rashes CENTRAL NERVOUS SYSTEM: No focal deficits, tone is normal in all 4 extremities. EXTREMITIES: There is 1+ peripheral edema. No clubbing, no cyanosis. Peripher al pulses are intact. Results - Laboratory Findings CBC and BMP: 01/27/25 23:21 01/27/25 23:21 PT/INR, D-dimer PT 12.1 sec (10.0-12.5) 01/27/25 23:21 INR 1.1 (<1.2) 01/27/25 23:21 Abnormal lab findings: Abnormal Labs 01/27/25 01/27/25 01/27/25 22:56 23:21 23:21 RBC 3.91 L Hgb 9.8 L Hct 33.3 L MCH 25.1 L MCHC 29.4 L Sodium 134 L Potassium 5.7 H BUN 18 H Glucose 186 H POC Glucose (mg/dL) 191 H Calcium 8.1 L Alkaline Phosphatase 227 H Albumin 3.1 L Urine Appearance Urine Protein Urine Glucose (UA) Urine Blood Ur Leukocyte Esterase Urine RBC Urine WBC Amorphous Sediment Urine Bacteria Hyaline Casts Ur Oxycodone Screen U Benzodiazepines Scrn 01/28/25 01/28/25 02:50 13:18 RBC Hgb Hct MCH MCHC Sodium Potassium BUN Glucose POC Glucose (mg/dL) 233 H Calcium Alkaline Phosphatase Albumin Urine Appearance Cloudy H Urine Protein 1+ H Urine Glucose (UA) 1+ H Urine Blood Trace H Ur Leukocyte Esterase Large H Urine RBC 6 H Urine WBC >182 H Amorphous Sediment Occasional H Urine Bacteria Occasional H Hyaline Casts 5 H Ur Oxycodone Screen Detected H U Benzodiazepines Scrn Detected H - Diagnostic Findings Chest x-ray: image reviewed CT scan - chest: image reviewed Assessment and Plan Plan: Altered mental status, improved. Rule out benzodiazepine withdrawal symptoms of the patient has been maintained on high-dose benzodiazepines/Xanax for exam. Of time the patient had an abrupt discontinuation of the medication. No focal neurological deficits. Chronic left-sided pleural effusion and a previous thoracentesis on 12/20/2024 showed a transudate with a negative pleural fluid cytology. The patient continues to have bilateral pleural effusion Right paratracheal partially calcified mass, enlarged compared to the CAT scan of the chest from July 2024. Rule out underlying malignancy. Endobronchial ultrasound and transbronchial needle aspirates of the paratracheal mass will be needed later stage once the patient's condition is more stable. Recurrent urinary tract infection and patient had a recent hospitalization for a urinary tract infection secondary to Klebsiella pneumoniae Chronic systolic congestive heart failure with ejection fraction of 45% Diabetes mellitus type II chronic left lower extremity DVT, anticoagulated with Eliquis Coronary artery disease with previous stent placement History of factor V Leiden deficiency with previous DVT and pulmonary embolism Hypertension Hyperlipidemia Anemia of chronic disease Chronic kidney disease stage III Hypothyroidism Poor gait function with frequent falls Former smoker Poor overall functional performance based on the above-mentioned multiple comorbidities currently in an ECF Plan Patient currently on 2 L of oxygen by nasal cannula Reviewed the CAT scan of the chest and there is no need for thoracentesis at this point Continue diuretics and the patient is currently on Lasix 20 mg IV every 12 hours Reviewed the CAT scan of the chest. The right paratracheal mass is concerning and the patient will likely need an endobronchial ultrasound with transbronchial needle aspirate of the paratracheal mass once clinically stable. Possibility of malignancy cannot be completed without. Continue Aldactone Urine cultures Empiric antibiotic coverage with IV Rocephin Psychiatry consultation regarding treatment of chronic anxiety and chronic benzodiazepine dependence Will continue to follow
[2025-01-29] MEDS: LEVOTHYROXINE 100 MCG TAB PO SCH (06:01)
[2025-01-29] MEDS: methocarbamoL 750 MG TAB PO PRN (06:01)
[2025-01-29] MEDS: SPIRONOLACTONE 25 MG TAB PO SCH (06:01)
[2025-01-29] MEDS: LEVOTHYROXINE 75 MCG TAB PO SCH (06:01)
[2025-01-29 06:10] LABS: Glucose,Whole Blood 100 mg/dL (70-110)
[2025-01-29] MEDS: PANTOPRAZOLE 40 MG TABLET PO SCH (06:31)
[2025-01-29 08:14] LABS: Glucose,Whole Blood 141 mg/dL (70-110)
[2025-01-29 08:25] LABS: Basophils # (A) 0.04 10*3/uL (0.00-0.10); Basophils % (A) 0.3 %; Eosinophils # (A) 0.21 10*3/uL (0.04-0.35); Eosinophils % (A) 1.8 %; HCT 33.1 % (37.2-46.3); HGB 9.9 g/dL (12.0-15.0); Immature Platelet Fraction 11.5 % (1.1-6.1); Lymphocytes % (A) 13.1 %; MCH 25.4 pg (27.0-32.0); MCHC 29.9 g/dL (32.0-37.0); MCV 84.9 fL (80.0-97.0); Monocytes # (A) 0.53 10*3/uL (0.20-1.00); Monocytes % (A) 4.6 %; Neutrophils # (A) 9.12 10*3/uL (1.80-7.70); Neutrophils % (A) 79.5 %; Platelet Count 175 10*3/uL (140-440); RDW 21.8 % (11.5-14.5); WBC 11.48 10*3/uL (4.50-10.00)
[2025-01-29 08:37] LABS: ALT 14 U/L (4-34); African American GFR (CKD) 49 (>60 ml/min/1.73 sqM); Albumin/Globulin Ratio 0.8; Anion Gap 8 mmol/L; Blood Urea Nitrogen 25 mg/dL (7-17); Calcium 8.3 mg/dL (8.4-10.2); Carbon Dioxide 25 mmol/L (22-30); Chloride 103 mmol/L (98-107); Globulin 3.7 g/dL; Glucose 114 mg/dL (74-99); Non-African American GFR(CKD) 42 (>60 ml/min/1.73 sqM); Phosphorus 3.9 mg/dL (2.5-4.5); Sodium 136 mmol/L (137-145); Total Bilirubin 0.7 mg/dL (0.2-1.3); Total Protein 6.7 g/dL (6.3-8.2)
[2025-01-29 08:39] LABS: AST 30 U/L (14-36); Alkaline Phosphatase 227 U/L (38-126)
[2025-01-29] MEDS ORDERED: CLOPIDOGREL 75 MG TAB PO SCH (09:00)
[2025-01-29] MEDS: ASPIRIN 81 MG PO SCH (09:53)
[2025-01-29 12:18] LABS: Glucose,Whole Blood 228 mg/dL (70-110)
[2025-01-29 12:26] VITALS: BP 101/67; PULSE 78; RESP 18; TEMP 97.8
[2025-01-29] MEDS: ONDANSETRON ODT 4 MG TAB PO PRN (12:48)
--- NOTE | 2025-01-29 13:33 | P.DS ---
Providers Date of admission: 01/28/25 04:56 Attending physician: Francisco Vela Consults: 01/28/25 04:56 Consult Physician Routine Consulting Provider: Cherelle Mendez Consult Reason/Comments: BLeffusion Do you want consulting provider notified?: Yes 01/28/25 12:03 Consult Physician Routine Consulting Provider: Ivan Carcamo Consult Reason/Comments: pretracheal mass Do you want consulting provider notified?: Yes 01/28/25 15:35 Consult Physician Routine Consulting Provider: Psychiatry - [facility] Psychiatry Consult Reason/Comments: Anxiety, chronic benzo dependence Do you want consulting provider notified?: Yes Primary care physician: Miguel Sy Hospital Course: 70-year-old female was sent in here because uncontrollable shaking and confusion. Patient and family believes it is because of withdrawals from benzodiazepines patient was on huge dose of Xanax which was decreased and was discharged on Ativan in which was subsequently discontinued as an outpatient which I believe is appropriate. Although patient is found to have bilateral pleural effusions on the CAT scan of the abdomen pelvis chest that was done. Patient does have history of congestive heart failure EF of around 45 to 50% patient any significant orthopnea paroxysmal nocturnal dyspnea patient uses 3 L of oxygen as outpatient and is saturating well on 3 L. Patient complains of diffuse pain in the back and patient is on opiates for these 10 mg of oxycodone for a long time patient denied any constipation. Patient has significantly abnormal urine has patient has Klebsiella pneumonia in the urine in the past when questioned about UTI symptoms patient states she does have bad burning during micturition. Patient recently finished antibiotic therapy for UTI. Patient was also found to have pretracheal mass on the CAT scan which appeared to be larger than before. 01/29/2025 Patient is at her baseline confusion completely resolved. Antibiotics will be discontinued. General surgery evaluated for pretracheal mass and the patient will need to follow-up with ENT for the pretracheal mass. Patient serum sodium improved with Lasix but the creatinine started to get worse. IV Lasix will be discontinued patient will be discharged on 20 mg of oral Lasix and patient is on Aldactone which we will continue. Patient is supposed to go to subacute rehab but wants to take her home. Patient is definitely high risk for readmission. Patient is on weaning doses of benzodiazepines. Instructed that she should not be using high dose of Xanax at home. Patient will be discharged on 0.5 twice daily of Ativan which need to be weaned off and completely discontinued eventually we will also cut down the dose of opiates. Patient has chronic pain still complaining of pain. PHYSICAL EXAMINATION: GENERAL: The patient is alert and oriented x3, not in any acute distress. Well developed, well nourished. HEENT: Pupils are round and equally reacting to light. EOMI. No scleral icterus. No conjunctival pallor. Normocephalic, atraumatic. No pharyngeal erythema. No thyromegaly. CARDIOVASCULAR: S1 and S2 present. No murmurs, rubs, or gallops. PULMONARY: Chest is clear to auscultation, no wheezing or crackles. ABDOMEN: Soft, diffuse mild subjective abdominal tenderness t, , nondistended, normoactive bowel sounds. No palpable organomegaly. MUSCULOSKELETAL: No joint swelling or deformity. EXTREMITIES: No cyanosis, clubbing, or pedal edema. NEUROLOGICAL: Gross neurological examination did not reveal any focal deficits. SKIN: No rashes. Assessment and plan -Bilateral pleural effusion probably secondary to congestive heart failure patient has some clinical improvement on low-dose of Lasix - Complaints of confusion which resolved at this time patient has been at her baseline I do not believe patient has encephalopathy at this time -Low possibility of urinary tract infection patient received 2 days of antibiotics will not require any more antibiotics with patient will be discharged today her dysuria improved. - Pretracheal mass follow-up with ENT as an outpatient for biopsy - Consult failure chronic systolic function with acute exacerbation -. Patient has pleural effusions in the past and underwent paracentesis in the past - Anemia of chronic disease - History of DVT PE in the past patient has history of factor V Leyden deficiency patient is on Eliquis which will be resumed - Coronary artery disease with stents in the past patient also has ischemic cardiomyopathy - Hypertension Patient Condition at Discharge: Fair Plan - Discharge Summary Discharge Rx Participant: No New Discharge Prescriptions: New oxyCODONE HCL [OxyIR] 5 mg PO TID PRN #30 tab PRN Reason: Pain Continue Clopidogrel [Plavix] 75 mg PO DAILY@0900 traZODone HCL [Desyrel] 200 mg PO HS@2100 Insulin Lispro [humaLOG Kwikpen] See Protocol SQ ACHS Acetaminophen Tab [Tylenol] 650 mg PO Q4H PRN PRN Reason: Pain Atorvastatin [Lipitor] 80 mg PO HS@2100 Ondansetron [Zofran] 4 mg PO Q8H PRN PRN Reason: Nausea Sennosides-Docusate Sodium [Senokot-S] 1 tab PO BID@0900,2100 Ipratropium-Albuterol Nebulize [Duoneb 0.5 mg-3 mg/3 ml Soln] 3 ml INHALATION RT-Q4H PRN PRN Reason: Wheezing Levothyroxine Sodium 75 mcg PO DAILY@0600 Levothyroxine Sodium 200 mcg PO DAILY@0600 Sacubitril/Valsartan [Entresto 24 mg-26 mg Tablet] 0.5 tab PO BID@09,2099 Magnesium Hydroxide [Milk of Magnesia] 2,400 mg PO Q4H PRN PRN Reason: Constipation Insulin Glargine,Hum.rec.anlog [Lantus Solostar Pen] 20 units SQ BID Albuterol Sulfate [Ventolin HFA] 2 puff INHALATION RT-Q6H PRN PRN Reason: Shortness Of Breath methocarbamoL [Robaxin-750] 750 mg PO QID PRN PRN Reason: Muscle Spasm polyethylene glycoL 3350 [Miralax] 17 gm PO BID PRN PRN Reason: Constipation Metoprolol Tartrate [Lopressor] 12.5 mg PO BID@0900,2100 Cyanocobalamin [Vitamin B-12] 1,000 mcg PO DAILY@0900 Aspirin 81 mg PO DAILY@0900 Colchicine [Colcrys] 0.6 mg PO BID@0900,2100 Pantoprazole [Protonix] 40 mg PO DAILY@0600 Spironolactone [Aldactone] 12.5 mg PO DAILY@0600 Calcium Carbonate [Tums] 500 mg PO QID PRN PRN Reason: Indigestion Ferrous Sulfate [Iron (65 MG Elemental)] 325 mg PO W/LUNCH tab Apixaban [Eliquis] 5 mg PO BID Hyoscyamine Sulfate [Levsin-Sl] 0.125 mg SL AC-TID PRN PRN Reason: CRAMPING/NAUSEA Insulin Lispro [humaLOG Kwikpen] 6 unit SQ AC-TID Midodrine [ProAmatine] 5 mg PO TID-W/MEALS Changed LORazepam [Ativan] 0.5 mg PO BID PRN 10 Days #20 tab PRN Reason: Anxiety Discontinued oxyCODONE HCL [oxyCODONE HCL (IR)] 10 mg PO TID PRN #4 tab PRN Reason: Pain Discharge Medication List Clopidogrel [Plavix] 75 mg PO DAILY@0907/07/19 [History] traZODone HCL [Desyrel] 200 mg PO HS@209907/07/19 [History] Insulin Glargine,Hum.rec.anlog [Lantus Solostar Pen] 20 units SQ BID 06/09/21 [History] Insulin Lispro [humaLOG Kwikpen] See Protocol SQ ACHS 09/21/23 [History] Acetaminophen Tab [Tylenol] 650 mg PO Q4H PRN 12/13/24 [History] Albuterol Sulfate [Ventolin HFA] 2 puff INHALATION RT-Q6H PRN 12/13/24 [History] Atorvastatin [Lipitor] 80 mg PO HS@209912/13/24 [History] Ondansetron [Zofran] 4 mg PO Q8H PRN 12/13/24 [History] Sennosides-Docusate Sodium [Senokot-S] 1 tab PO BID@0900,209912/13/24 [History] methocarbamoL [Robaxin-750] 750 mg PO QID PRN 12/13/24 [History] polyethylene glycoL 3350 [Miralax] 17 gm PO BID PRN 12/13/24 [History] Metoprolol Tartrate [Lopressor] 12.5 mg PO BID@0900,209901/03/25 [History] Aspirin 81 mg PO DAILY@89901/16/25 [History] Calcium Carbonate [Tums] 500 mg PO QID PRN 01/16/25 [History] Colchicine [Colcrys] 0.6 mg PO BID@0900,209901/16/25 [History] Cyanocobalamin [Vitamin B-12] 1,000 mcg PO DAILY@89901/16/25 [History] Ipratropium-Albuterol Nebulize [Duoneb 0.5 mg-3 mg/3 ml Soln] 3 ml INHALATION RT-Q4H PRN 01/16/25 [History] Levothyroxine Sodium 75 mcg PO DAILY@59901/16/25 [History] Levothyroxine Sodium 200 mcg PO DAILY@59901/16/25 [History] Pantoprazole [Protonix] 40 mg PO DAILY@59901/16/25 [History] Sacubitril/Valsartan [Entresto 24 mg-26 mg Tablet] 0.5 tab PO BID@0900,2100 01/16/25 [History] Spironolactone [Aldactone] 12.5 mg PO DAILY@0600 01/16/25 [History] Ferrous Sulfate [Iron (65 MG Elemental)] 325 mg PO W/LUNCH tab 01/21/25 [Rx] Apixaban [Eliquis] 5 mg PO BID 01/28/25 [History] Hyoscyamine Sulfate [Levsin-Sl] 0.125 mg SL AC-TID PRN 01/28/25 [History] Insulin Lispro [humaLOG Kwikpen] 6 unit SQ AC-TID 01/28/25 [History] Magnesium Hydroxide [Milk of Magnesia] 2,400 mg PO Q4H PRN 01/28/25 [History] Midodrine [ProAmatine] 5 mg PO TID-W/MEALS 01/28/25 [History] LORazepam [Ativan] 0.5 mg PO BID PRN 10 Days #20 tab 01/29/25 [Rx] oxyCODONE HCL [OxyIR] 5 mg PO TID PRN #30 tab 01/29/25 [Rx] Follow up Appointment(s)/Referral(s): Miguel Sy MD [Primary Care Provider] - 3 Days Speedy Kerr DO [Doctor of Osteopathic Medicine] - 1 Week Discharge Disposition: HOME WITH HOME HEALTH SERVICES
--- NOTE | 2025-01-29 13:36 | P.PN ---
Subjective Progress Note Date: 01/29/25 SURGICAL PROGRESS NOTE CHIEF COMPLAINT: Altered mental status HISTORY OF PRESENT ILLNESS: Patient remains confused. Surgical service following in regards to pretracheal mass that has increased in size. No new complaints. Per charting note that confusion is back at baseline. PHYSICAL EXAM: VITAL SIGNS: Reviewed. GENERAL: no acute distress. ABDOMEN: Soft. Nondistended. Nontender. ASSESSMENT: 1. Pretracheal mass that has increased in size PLAN: - Recommend outpatient ENT evaluation - No surgical intervention planned from general surgery standpoint Physician Ammonia Still Operator note has been reviewed by physician. Signing provider agrees with the documented findings, assessment, and plan of care. Objective - Vital Signs Vital signs: Vital Signs Temp 97.8 F 01/29/25 12:19 Pulse 78 01/29/25 12:19 Resp 18 01/29/25 12:19 BP 101/67 01/29/25 12:19 Pulse Ox 97 01/29/25 12:19 FiO2 Intake & Output 01/28/25 01/29/25 01/29/25 18:59 06:59 18:59 Weight 74.843 kg Other: Voiding Method External Catheter External Catheter # Voids 2 # Bowel Movements 3 2 - Labs CBC & Chem 7: 01/29/25 06:58 01/29/25 06:58 Labs: Abnormal Lab Results - Last 24 Hours (Table) 01/28/25 01/28/25 01/29/25 Range/Units 18:48 20:07 06:58 WBC 11.48 H (4.50-10.00) 10*3/uL RBC 3.90 L (4.10-5.20) 10*6/uL Hgb 9.9 L (12.0-15.0) g/dL Hct 33.1 L (37.2-46.3) % MCH 25.4 L (27.0-32.0) pg MCHC 29.9 L (32.0-37.0) g/dL RDW 21.8 H (11.5-14.5) % Immature Gran # 0.08 H (0.00-0.04) 10*3/uL Neutrophils # 9.12 H (1.80-7.70) 10*3/uL Immature Plt Fraction 11.5 H (1.1-6.1) % Sodium (137-145) mmol/L BUN (7-17) mg/dL Creatinine (0.52-1.04) mg/dL Glucose (74-99) mg/dL POC Glucose (mg/dL) 266 H 315 H (70-110) mg/dL Calcium (8.4-10.2) mg/dL Alkaline Phosphatase (38-126) U/L Albumin (3.5-5.0) g/dL 01/29/25 01/29/25 01/29/25 Range/Units 06:58 08:12 12:16 WBC (4.50-10.00) 10*3/uL RBC (4.10-5.20) 10*6/uL Hgb (12.0-15.0) g/dL Hct (37.2-46.3) % MCH (27.0-32.0) pg MCHC (32.0-37.0) g/dL RDW (11.5-14.5) % Immature Gran # (0.00-0.04) 10*3/uL Neutrophils # (1.80-7.70) 10*3/uL Immature Plt Fraction (1.1-6.1) % Sodium 136 L (137-145) mmol/L BUN 25 H (7-17) mg/dL Creatinine 1.28 H (0.52-1.04) mg/dL Glucose 114 H (74-99) mg/dL POC Glucose (mg/dL) 141 H 228 H (70-110) mg/dL Calcium 8.3 L (8.4-10.2) mg/dL Alkaline Phosphatase 227 H (38-126) U/L Albumin 3.0 L (3.5-5.0) g/dL
--- NOTE | 2025-01-29 14:02 | P.CN ---
Psychiatric Consult - . Consult date: 01/29/25 Consult:: 01/29/25 13:16 IDENTIFYING DATA: This patient is a 70-year-old female, she is she has 3 kids, lives in a house with her REASON FOR REFERRAL: Psychiatry was consulted for "anxiety, chronic benzodiazepine dependence" HISTORY OF PRESENT ILLNESS: The patient presented to the hospital initially on 01/27 for altered mental status. Patient was having concern about the increasing confusion episodes and also medication changes. She was also found to have LIAM, UTI and pleural effusion. Patient was seen today laying in bed eating her lunch. She was agreeable to speak to mortgage or loan underwriter she was fairly polite and coopera tive. Claims that she has been having these confusion episodes for the past several days. Claims that Ativan has been helping her in the hospital. Claims that she used to be on Xanax 2 mg 3 times a day however this was recently decreased down to 1 mg 3 times daily. Claims that she has been on Xanax for several decades now. She is endorsing mild depression and mild anxiety at this time. Claims that she does have a history of panic disorder. Claims that her sleep is poor appetite is fair. She was alert and oriented x 3. At this time patient denies any suicidal or homical ideations, intent or plan. Patient denies any auditory, visual hallucinations and denies any paranoia or delusions. Patients admits to using no recreational drugs or cigarettes PAST PSYCHIATRIC HISTORY: Patient has a a history of anxiety, panic disorder, depression. States that she has only been on trazodone Ativan and Xanax. States that she has been on Xanax for almost 15 years. Patient denies any previous psychiatric hospitalizations. Patient denies any psychiatric outpatient follow-up. Patient denies any history of suicide attempts in the past. Past Medical History: Blood Disorder, Cancer, Diabetes Mellitus, Deep Vein Thrombosis (DVT), GERD/Reflux, Hyperlipidemia, Hypertension, Myocardial Infarction (UT), Neurologic Disorder, Osteoarthritis (OA), Pneumonia, Pulmonary Embolus (PE), Thyroid Disorder Additional Past Medical History / Comment(s): See Dr Babcock's H&P. Factor 5 Leiden, hx DVT L leg, hx PE L lung, hx UT X5, palpitations, IDDM type II, neuropathy bilateral legs/feet, lymphedema L leg, charcot syndrome L foot, chronic low back pain, bilateral sciatica, hx bronchitis, anemia, hypothyroid, constipation, hx UTI, IBS, sinus problems, worsening tremors, hx skin cancer removal, hx pelvic fracture, clausterphobia, hx severe vertigo, poor balance and prone to falls. Moderate pericardial effusion Last Myocardial Infarction Date:: January 2020 History of Any Multi-Drug Resistant Organisms: VRE Date of last positivie culture/infection: 08/24/23 MDRO Source:: Urine Past Surgical History: Appendectomy, Cholecystectomy, Heart Catheterization With Stent, Hernia Repair, Hysterectomy, Tonsillectomy Additional Past Surgical History / Comment(s): Bilateral salpingectomy, bilateral oophorectomy, abdominal hernia surgeries, L foot fracture, bilateral cataract removals, lumbar epidural injections. Past Anesthesia/Blood Transfusion Reactions: No Reported Reaction Additional Past Anesthesia/Blood Transfusion Reaction / Comment(s): Pt has rece ived blood in past without reaction. Date of Last Stent Placement:: January 2020 Past Psychological History: Anxiety, Depression, Panic Disorder Additional Psychological History / Comment(s): Severe panic attacks. Clausterphobia. Smoking Status: Former smoker Past Alcohol Use History: None Reported Additional Past Alcohol Use History / Comment(s): STARTED SMOKING AT AGE 20, quit smoking in 2012, smoked 1ppd. Past Drug Use History: None Reported ALLERGIES: as per EMR. CHEMICAL DEPENDENCY HISTORY: as per HPI. FAMILY PSYCHIATRIC/SUBSTANCE USE HISTORY: Denies SOCIAL HISTORY: Patient was born and raised in [place]. Claims that she completed up to the 11th grade in school. 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 She has 3 kids, she lives in a house with her . She is . Denies any legal history. MENTAL STATUS EXAM: General Appearance: Patient appears to be overweight, short hair, stated age is alert, pleasant, and cooperative. Patient appears to have fair hygiene and grooming wearing hospital gown with fair eye contact. Behavior: Patient is calmly lying in bed without any agitated behavior. Attempts to cooperate Speech: Patient's speech is fluent and nonpressured. Mood/Affect: Patient reports their mood is "a bit depressed/anxious", affect is congruent Suicidality/Homicidality: Patient denies having any suicidal or homicidal ideation intent or plan. Perceptions: Patient denies any visual hallucinations and denies any auditory hallucinations Though content/process: There is no evidence of any delusional thought content and thought process is linear and goal-directed. Future oriented Memory and concentration: AOX3, grossly intact for the purposes of this session. Can spell "WORLD" backwards Judgment and insight: fair IMPRESSIONS: Delirium, likely secondary to medication withdrawal (BZD) Depressive disorder unspecified Panic disorder Benzodiazepine dependence PLAN: -At this time patient DOES NOT meet criteria for inpatient psychiatric ad mission. -Delirium precautions recommended with patient including - avoiding use of narcotics and CARDIAC CATH LAB RADIOLOGY TECHNOLOGIST sedatives, limit anticholinergic medications when possible, frequent re-orientation, minimize use of restraints, open window shades during the day and close them at night -Would recommend the following medication changes/additions: Please be cautious and would advise against a rapid discontinuation of her Xanax or other benzodiazepine due to the risk of withdrawal. Patient is agreeable to try Lexapro 5 mg today and increased to 10 mg starting tomorrow for depression/anxiety. I added melatonin 810 mg nightly for sleep. Continue with trazodone 200 mg nightly for insomnia/sleep -workers compensation claims examiner to provide patient with outpatient mental health/psychiatry resources for appropriate follow up upon discharge -First Aid Trainer spoke with patient about substance abuse and the harmful effects on medical and mental health, patient verbally understood and agreed. -Communicated plan to patient's nurse -at this time psychiatry will sign off -Please contact with any questions. 01/29/25 13:56
[2025-01-29] MEDS: ESCITALOPRAM 5 MG TAB PO STA (15:21)
[2025-01-29] MEDS ORDERED: MELATONIN 5 MG TABLET PO SCH (21:00)
[2025-01-30] MEDS ORDERED: ESCITALOPRAM 10 MG TAB PO SCH (09:00)
== END 2025-01-29 16:36 | disposition home health service (06) | DRG 291 ==
LOC: EC 22:26 → 5NMEDONC 01-28 04:56
PROVIDERS: ADMIT Hospitalist; ATTEND Hospitalist
DX: I13.0 Hypertensive heart and chronic kidney disease with heart failure and stage 1 through stage 4 chronic kidney disease, or unspecified chronic kidney disease (principal); I50.23 Acute on chronic systolic (congestive) heart failure; I31.39 Other pericardial effusion (noninflammatory); J91.8 Pleural effusion in other conditions classified elsewhere; F13.231 Sedative, hypnotic or anxiolytic dependence with withdrawal delirium; D63.8 Anemia in other chronic diseases classified elsewhere; J39.8 Other specified diseases of upper respiratory tract; R13.10 Dysphagia, unspecified; K74.60 Unspecified cirrhosis of liver; E11.22 Type 2 diabetes mellitus with diabetic chronic kidney disease; N18.30 Chronic kidney disease, stage 3 unspecified; E03.9 Hypothyroidism, unspecified; F32.A Depression, unspecified; N17.9 Acute kidney failure, unspecified; D68.51 Activated protein C resistance; Z79.4 Long term (current) use of insulin; I25.5 Ischemic cardiomyopathy; I25.10 Atherosclerotic heart disease of native coronary artery without angina pectoris; E78.5 Hyperlipidemia, unspecified; T42.4X5A Adverse effect of benzodiazepines, initial encounter; F41.0 Panic disorder [episodic paroxysmal anxiety]; R06.01 Orthopnea; R29.6 Repeated falls; Z99.81 Dependence on supplemental oxygen; Z79.01 Long term (current) use of anticoagulants; Z79.02 Long term (current) use of antithrombotics/antiplatelets; Z79.82 Long term (current) use of aspirin; Z79.890 Hormone replacement therapy; Z86.718 Personal history of other venous thrombosis and embolism; Z80.1 Family history of malignant neoplasm of trachea, bronchus and lung; Z85.828 Personal history of other malignant neoplasm of skin; Z86.711 Personal history of pulmonary embolism; I25.2 Old myocardial infarction; Z95.5 Presence of coronary angioplasty implant and graft; Z86.19 Personal history of other infectious and parasitic diseases; Z87.891 Personal history of nicotine dependence; Z79.899 Other long term (current) drug therapy; Z91.81 History of falling
CPT/HCPCS: 36415; 71250; 74176; 80053; 80306; 81001; 82140; 83735; 83880; 84100; 84484; 85025; 85610; 85730; 93005; 94760; 96361; 96365; 96375; 96376; 99285

== ENCOUNTER → 2025-02-13 | Outpatient (CLI) | payer MEDICARE, BC ==
--- NOTE | 2025-02-16 21:33 | PE ---
EXAMINATION TYPE: PET CT fusion skull to thigh DATE OF EXAM: 02/16/2025 CLINICAL INDICATION:Female, 70 years old with history of J93.8 paratrachial mass; TECHNIQUE: Following the intravenous administration of 10.08 mCi of F-18 FDG, whole body images are performed from the skull base to the Mid thigh. Images are reviewed on the computer in the coronal, axial, and sagittal planes. Reconstructed rotating images are created on independent workstation an d reviewed on the computer. A non-contrast CT is performed in conjunction with the PET scan. Glucos e level not obtained mg/dL CT DLP: 1434 mGycm, Automated exposure control for dose reduction was used. COMPARISON: CT 01/28/2025, PET/CT None, MRI: None FINDINGS: Mediastinal SUV mean is 2.6. Hepatic parenchyma SUV mean is 1.6. SKULL BASE AND NECK: No suspicious radiotracer activity. CHEST, MEDIASTINUM, AND HILAR REGION: Cystic mass with peripheral enhancement near the IVC parenchyma in the mediastinum max SUV 7.9 measur ing 4.7 x 3.1 cm. There is a more focal masslike area of uptake lung may superior posterior aspect of the lesion. ABDOMEN AND PELVIS: No suspicious radiotracer activity. MUSCULOSKELETAL STRUCTURES: No suspicious radiotracer activity. OTHER CT: Small bilateral pleural effusions. The heart is mildly enlarged for size. Severe coronary a rtery atherosclerosis. Post surgical changes anterior abdominal wall. Bilateral inferior pubic rami f ractures on the right and one on the left. These have osseous fusion. IMPRESSION: Cystic mass in the mediastinum near the inferior vena cava and jg with predominantly peripheral F DG uptake. Concerning for malignancy. No evidence for metastatic disease. Progress ectopic guided tis valerie sampling recommended. [facility], , 02/16/2025 9:31 PM
== END | disposition home or self-care (01) ==
LOC: RADPETMAIN 14:02
PROVIDERS: ATTEND Internal Medicine
DX: D38.1 Neoplasm of uncertain behavior of trachea, bronchus and lung (principal); J93.83 Other pneumothorax; J98.59 Other diseases of mediastinum, not elsewhere classified; E11.9 Type 2 diabetes mellitus without complications
CPT/HCPCS: 78815; A9552

== ENCOUNTER 2025-02-24 10:56 | Day surgery (SDC) | payer MEDICARE, BC ==
[~2025-02-24 10:56] MED LIST changes: -ALPRAZolam 0.5 MG TAB PO PRN; +LACTATED RINGERS 1,000 ML IV SCH; +LIDOCAINE 1% (10MG/ML) FOR IV START INTRADERMA PRN; -NITROGLYCERIN SL TABS 0.4 MG TAB SUBLINGUAL PRN
[2025-02-24] MEDS: IV FLUID CONTINUATION 1,000 ML IV ONE (11:36)
[2025-02-24 11:41] LABS: Glucose,Whole Blood 210 mg/dL (70-110)
[2025-02-24] MEDS: LACTATED RINGERS 1,000 ML IV SCH (11:49)
[2025-02-24] MEDS: INSULIN LISPRO (HumaLOG) 100 UNIT/ML 10 mL VL SQ ONE (11:52)
[2025-02-24] MEDS ORDERED: fentaNYL (PF) 50 MCG/ML 2 ML AMP ONE (11:53)
[2025-02-24] MEDS ORDERED: PROPOFOL 10 MG/ML 20 ML VIAL IV ONE (11:53)
[2025-02-24] MEDS ORDERED: ePHEDrine 50 MG/ML 1 ML VIAL ONE (11:53)
[2025-02-24] MEDS ORDERED: LIDOCAINE 1% INJ 10MG/ML (20 ML MDV) ONE (11:53)
[2025-02-24] MEDS ORDERED: PHENYLEPHRINE-0.9% NACL SYG 1,000 MCG/10 ML SYRINGE ONE (11:53)
[2025-02-24] MEDS ORDERED: WATER FOR INJECTION, STERILE 10 ML VIAL IV ONE (11:53)
[2025-02-24] MEDS ORDERED: LIDOCAINE 4% LTA KIT (4 ML) TOPICAL ONE (11:53)
[2025-02-24] MEDS ORDERED: SUCCINYLCHOLINE CHLORIDE 200 MG/10 ML VIAL IV ONE (11:53)
[2025-02-24] MEDS ORDERED: ALBUTEROL HFA INHALER INHALATION ONE (11:53)
--- NOTE | 2025-02-24 12:43 | P.PCN ---
Date of Procedure: 02/24/25 Preoperative Diagnosis: Right paratracheal necrotic lymph node/mass with central calcification, PET avid Postoperative Diagnosis: Same Procedure(s) Performed: Flexible bronchoscopy Endobronchial ultrasound Transbronchial needle aspirate of paratracheal lymph node, station 4R Anesthesia: GETA Pathology: other Condition: stable Disposition: same day Operative Findings: This procedure was done in the endoscopy suite. The consent was signed. A timeout was obtained. The patient was on oxygen at 2 L/min nasal cannula preoperatively. The patient was intubated without any major difficulties and placed on a mechanical ventilator. Intubation with sedation process was provided by anesthesia. The patient was intubated by a #8 orotracheal tube. Following intubation, the flexible bronchoscope was introduced through the orotracheal tube and a full airway examination was done. Distal trachea, jg, bilateral mainstem bronchi, right upper lobe bronchus, bronchus or medius, right middle lobe bronchus in the right lobe bronchus elevated stent segments on the right with within normal limits. Examination of the left side i ncluded the left mainstem bronchus, left upper lobe bronchus and the left lobe bronchus and the various 8 segments on the left. Some compressive atelectatic changes in the lung bases bilaterally was seen. No significant respiratory secretions. No evidence of any endobronchial tumors. The effects of bronchoscope was removed and the endobronchial ultrasound was introduced. Examination of the mediastinal via endobronchial ultrasound revealed a necrotic large right paratracheal mass/lymph node at the location of stations 4R, and under ultrasound examination, the lesion itself had heterogeneous density with some limited central calcification. This was a very irregular lesion with smaller lymph nodes matted to the main lymph node/mass. Using a 22-gauge needle, transbronchial needle aspirates of the right paratracheal lymph node/mass was done. The aspirate was cloudy, creamy and thick consistent with necrotic tissue. Rapid onsite evaluation was done by pathology. No clear evidence of malignancy. There was necrosis, acute on chronic inflammation and some limited granulomatous changes. Based on that, the rest of the samples were placed in the cellblock and cultures. A total of 6 passes was taken on this right paratracheal lymph node/mass. Rest of the mediastinal stations were essentially within normal limits. The endobronchial ultrasound was removed. The flexible WAS introduced. Therapeutic airway suctioning was done. Procedure was terminated and flex bronchoscope was removed. The patient is to be extubated and transferred to recovery.
[2025-02-24] MEDS: IPRATROPIUM-ALBUTEROL 3 ML NEB INHALATION STA (12:57)
[2025-02-24 13:01] VITALS: TEMP 97
[2025-02-24 13:51] VITALS: RESP 16
[2025-02-24 14:03] VITALS: BP 112/54; PULSE 92
== END 2025-02-24 14:20 | disposition home or self-care (01) ==
LOC: ORWHC2ENDO 10:56
PROVIDERS: ATTEND Internal Medicine Critical Care Medicine
DX: J85.0 Gangrene and necrosis of lung (principal); I10 Essential (primary) hypertension; E78.5 Hyperlipidemia, unspecified; E07.9 Disorder of thyroid, unspecified; D64.9 Anemia, unspecified; E11.42 Type 2 diabetes mellitus with diabetic polyneuropathy; K21.9 Gastro-esophageal reflux disease without esophagitis; F40.240 Claustrophobia; D68.51 Activated protein C resistance; I31.39 Other pericardial effusion (noninflammatory); Z79.4 Long term (current) use of insulin; Z79.890 Hormone replacement therapy; Z79.899 Other long term (current) drug therapy; Z88.6 Allergy status to analgesic agent; Z88.5 Allergy status to narcotic agent; Z88.1 Allergy status to other antibiotic agents; Z88.8 Allergy status to other drugs, medicaments and biological substances; Z79.82 Long term (current) use of aspirin; Z99.81 Dependence on supplemental oxygen; Z86.711 Personal history of pulmonary embolism; Z86.718 Personal history of other venous thrombosis and embolism; Z79.1 Long term (current) use of non-steroidal anti-inflammatories (NSAID)
CPT/HCPCS: 87798 ×3; 87496; 87498; 87529; 88305; 88173; 88312; 87502; 87634; 87070; 87205; 87075; 87116; 87102; 87206; 87635; 31629; 31652; J0330; J2003; J3010; J2704; J2371

== ENCOUNTER 2025-02-25 04:37 | Inpatient (IN) | payer MEDICARE, BC, OTHER ==
[2025-02-25 05:13] LABS: Glucose,Whole Blood 240 mg/dL (70-110)
[2025-02-25 05:19] LABS: Basophils # (A) 0.02 10*3/uL (0.00-0.10); Basophils % (A) 0.5 %; Eosinophils # (A) 0.07 10*3/uL (0.04-0.35); Eosinophils % (A) 1.6 %; HCT 34.9 % (37.2-46.3); HGB 10.2 g/dL (12.0-15.0); Immature Platelet Fraction 8.4 % (1.1-6.1); Lymphocytes # (A) 0.49 10*3/uL (0.90-5.00); Lymphocytes % (A) 11.4 %; MCH 26.8 pg (27.0-32.0); MCHC 29.2 g/dL (32.0-37.0); Monocytes # (A) 0.18 10*3/uL (0.20-1.00); Monocytes % (A) 4.2 %; Neutrophils # (A) 3.52 10*3/uL (1.80-7.70); Neutrophils % (A) 81.6 %; Platelet Count 107 10*3/uL (140-440); RBC 3.80 10*6/uL (4.10-5.20); RDW 21.9 % (11.5-14.5); WBC 4.31 10*3/uL (4.50-10.00)
[2025-02-25] MEDS: LACTATED RINGERS 1,000 ML IV SCH ×2 (05:32→08:09)
[2025-02-25 05:33] LABS: ALT 12 U/L (4-34); African American GFR (CKD) >90 (>60 ml/min/1.73 sqM); Albumin 3.3 g/dL (3.5-5.0); Anion Gap 8 mmol/L; Blood Urea Nitrogen 13 mg/dL (7-17); Calcium 8.3 mg/dL (8.4-10.2); Carbon Dioxide 28 mmol/L (22-30); Chloride 103 mmol/L (98-107); Glucose 209 mg/dL (74-99); Non-African American GFR(CKD) 83 (>60 ml/min/1.73 sqM); Sodium 139 mmol/L (137-145); Total Protein 6.8 g/dL (6.3-8.2)
[2025-02-25 05:38] LABS: AST 25 U/L (14-36); Alkaline Phosphatase 228 U/L (38-126); Potassium 5.1 mmol/L (3.5-5.1)
[2025-02-25 05:42] LABS: NT-Pro-B-Type Natriuretic Pept 1330 pg/mL
[2025-02-25] MEDS: ACETAMINOPHEN IV (For NPO) 1,000 MG in EMPTY BAG 1 BAG IVPB STA (05:52)
--- NOTE | 2025-02-25 05:59 | ED ---
SOB HPI - General Chief Complaint: Shortness of Breath Stated Complaint: MADYSON Time Seen by Provider: 02/25/25 04:43 Source: EMS Mode of arrival: EMS Limitations: altered mental status - History of Present Illness Initial Comments: This patient is 70-year-old woman brought to have evaluation for worsening shortness of breath. The patient is not able to give much history due to severe dyspnea and the patient's daughter did contribute much of the history. The patient reportedly had gone to see Dr. Welsh yesterday to have a biopsy related to a mass that had been found when she had been admitted in the hospital in January. Following that she had gone home and then over the course of last night she was becoming more more short of breath, shaking and was disoriented. EMS was called and transported patient here. MD Complaint: shortness of breath -: hour(s) Consistency: constant Improves With: oxygen Worsens With: nothing Associated Symptoms: fever Treatments Prior to Arrival: oxygen - Related Data Home Oxygen Therapy: No Home Medications Medication Instructions Recorded Confirmed Clopidogrel [Plavix] 75 mg PO DAILY@0900 07/07/19 02/20/25 traZODone HCL [Desyrel] 100 mg PO HS@209907/07/19 02/24/25 Insulin Glargine,Hum.rec.anlog 20 units SQ BID 06/09/21 02/24/25 [Lantus Solostar Pen] Insulin Lispro [humaLOG Kwikpen] See Protocol SQ ACHS 09/21/23 02/20/25 Acetaminophen Tab [Tylenol] 650 mg PO Q4H PRN 12/13/24 02/20/25 Atorvastatin [Lipitor] 80 mg PO HS@209912/13/24 02/20/25 Ondansetron [Zofran] 4 mg PO Q8H PRN 12/13/24 02/20/25 Sennosides-Docusate Sodium 1 tab PO BID@0900,209912/13/24 02/20/25 [Senokot-S] Metoprolol Tartrate [Lopressor] 12.5 mg PO BID@0900,209901/03/25 02/20/25 Aspirin 81 mg PO DAILY@0900 01/16/25 02/20/25 Levothyroxine Sodium 200 mcg PO DAILY@0601/16/25 02/20/25 Sacubitril/Valsartan [Entresto 24 0.5 tab PO BID@0900,2100 01/16/25 02/20/25 mg-26 mg Tablet] Spironolactone [Aldactone] 12.5 mg PO BID 01/16/25 02/20/25 Insulin Lispro [humaLOG Kwikpen] 6 unit SQ AC-TID 01/28/25 02/24/25 Midodrine [ProAmatine] 5 mg PO TID-W/MEALS 01/28/25 02/20/25 ALPRAZolam [Xanax] 1 mg PO TID PRN 02/20/25 02/20/25 Previous Rx's Medication Instructions Recorded Escitalopram [Lexapro] 10 mg PO DAILY 30 Days #30 tablet 01/29/25 Furosemide [Lasix] 40 mg PO DAILY #30 tablet 01/29/25 oxyCODONE HCL [OxyIR] 5 mg PO TID PRN #30 tab 01/29/25 Allergies Allergy/AdvReac Type Severity Reaction Status Date / Time Iodinated Contrast Media Allergy Rash/Hives Verified 02/24/25 11:36 Iodine and Iodide Containing Allergy Rash/Hives Verified 02/24/25 11:36 Produc tositumomab iodine-131 Allergy Unknown Verified 02/24/25 11:36 liraglutide [From Saxenda] AdvReac Unknown Nausea & Verified 02/24/25 11:36 Vomiting NSAIDS (Non-Steroidal AdvReac Unknown Nausea & Verified 02/24/25 11:36 Anti-Inflamma Vomiting aspirin AdvReac Nausea & Verified 02/24/25 11:36 Vomiting with high doses azithromycin AdvReac Vomiting Verified 02/24/25 11:36 naproxen [From Naprosyn] AdvReac Nausea & Verified 02/24/25 11:36 Vomiting Review of Systems ROS Statement: Those systems with pertinent positive or pertinent negative responses have been documented in the HPI. ROS Other: All systems not noted in ROS Statement are negative. Limitations: ROS unobtainable due to patients medical condition Constitutional: Reports: fever Respiratory: Reports: cough, dyspnea Cardiovascular: Denies: chest pain, syncope Gastrointestinal: Denies: abdominal pain, vomiting, diarrhea Musculoskeletal: Denies: back pain Skin: Denies: rash Neurological: Denies: headache, weakness Psychiatric: Reports: anxiety Past Medical History Past Medical History: Blood Disorder, Cancer, Diabetes Mellitus, Deep Vein Thrombosis (DVT), GERD/Reflux, Hyperlipidemia, Hypertension, Myocardial Infarction (VT), Neurologic Disorder, Osteoarthritis (OA), Pneumonia, Pulmonary Embolus (PE), Thyroid Disorder Additional Past Medical History / Comment(s): See Dr Babcock's H&P. Factor 5 Leiden, hx DVT L leg, hx PE L lung, hx VT X5, palpitations, IDDM type II, neuropathy bilateral legs/feet, lymphedema L leg, charcot syndrome L foot, ch ronic low back pain, bilateral sciatica, hx bronchitis, anemia, hypothyroid, constipation, hx UTI, IBS, sinus problems, worsening tremors, hx skin cancer removal, hx pelvic fracture, clausterphobia, hx severe vertigo, poor balance and prone to falls. Moderate pericardial effusion wearing oxygen 2-3 L atc Last Myocardial Infarction Date:: January 2020 History of Any Multi-Drug Resistant Organisms: VRE Date of last positivie culture/infection: 08/24/23 MDRO Source:: Urine Past Surgical History: Appendectomy, Cholecystectomy, Heart Catheterization With Stent, Hernia Repair, Hysterectomy, Tonsillectomy Additional Past Surgical History / Comment(s): Bilateral salpingectomy, bilateral oophorectomy, abdominal hernia surgeries, L foot fracture, bilateral cataract removals, lumbar epidural injections. Past Anesthesia/Blood Transfusion Reactions: No Reported Reaction Additional Past Anesthesia/Blood Transfusion Reaction / Comment(s): Pt has received blood in past without reaction. Date of Last Stent Placement:: January 2020 Past Psychological History: Anxiety, Depression, Panic Disorder Smoking Status: Former smoker - Past Family History Mother Family Medical History: COPD Additional Family Medical History / Comment(s): Mother was a smoker. Father Family Medical History: Cancer Additional Family Medical History / Comment(s): Lung cancer. Father was a smoker. Son(s) Family Medical History: Deep Vein Thrombosis (DVT) General Exam General appearance: alert, anxious, in distress Head exam: Present: atraumatic, normocephalic Eye exam: Present: normal appearance. Absent: scleral icterus, conjunctival injection Neck exam: Present: normal inspection, full ROM. Absent: meningismus Respiratory exam: Present: respiratory distress, rales, rhonchi, accessory muscle use. Absent: wheezes, stridor, decreased breath sounds, prolonged expiratory Cardiovascular Exam: Present: normal rhythm, tachycardia, normal heart sounds. Absent: systolic murmur, diastolic murmur, rubs, gallop GI/Abdominal exam: Present: soft. Absent: distended, tenderness, guarding, rebound, rigid, mass Extremities exam: Present: normal inspection, normal capillary refill, pedal edema. Absent: calf tenderness Back exam: Present: normal inspection Neurological exam: Present: alert. Absent: motor sensory deficit Skin exam: Present: warm, dry, intact, normal color. Absent: rash Course Vital Signs 02/25/25 02/25/25 02/25/25 04:41 04:49 05:04 Temperature 102.1 F H Pulse Rate 130 H Respiratory 40 H 40 H Rate Blood Pressure 161/98 O2 Sat by Pulse 77 L Oximetry Fraction of 80 Inspired Oxygen (FIO2) 02/25/25 02/25/25 02/25/25 05:05 05:13 05:15 Temperature 102.5 F H Pulse Rate Respiratory Rate Blood Pressure O2 Sat by Pulse Oximetry Fraction of 80 60 Inspired Oxygen (FIO2) 02/25/25 02/25/25 02/25/25 05:39 06:30 07:28 Temperature 102.2 F H Pulse Rate 130 H 109 H 98 Respiratory 36 H 30 H 32 H Rate Blood Pressure 155/74 129/42 109/58 O2 Sat by Pulse 99 100 96 Oximetry Fraction of Inspired Oxygen (FIO2) 02/25/25 02/25/25 07:35 08:04 Temperature 100.5 F H Pulse Rate 97 Respiratory 30 H Rate Blood Pressure 117/54 O2 Sat by Pulse 97 Oximetry Fraction of 50 Inspired Oxygen (FIO2) Medical Decision Making - Medical Decision Making Patient is a 70-year-old woman here for dyspnea and suspected fever. She did have bronchoscopy performed yesterday reportedly to biopsy a mediastinal mass. The patient then became progressively more dyspneic. Patient's chest x-ray here does show right lower lobe infiltrate the patient started on antibiotics and fluid bolus. Patient admitted for further pneumonia treatment. Initial fluid bolus is slightly reduced as BNP is mildly elevated - Lab Data Result diagrams: 02/25/25 05:03 02/25/25 05:03 Lab Results 02/25/25 02/25/25 02/25/25 Range/Units 05:03 05:03 05:03 WBC 4.31 L (4.50-10.00) 10*3/uL RBC 3.80 L (4.10-5.20) 10*6/uL Hgb 10.2 L (12.0-15.0) g/dL Hct 34.9 L (37.2-46.3) % MCV 91.8 D (80.0-97.0) fL MCH 26.8 L (27.0-32.0) pg MCHC 29.2 L (32.0-37.0) g/dL Plt Count 107 L (140-440) 10*3/uL Immature Gran % (Auto) 0.7 % Neutrophils % 81.6 % Lymphocytes % 11.4 % Monocytes % 4.2 % Eosinophils % 1.6 % Basophils % 0.5 % Immature Gran # 0.03 (0.00-0.04) 10*3/uL Neutrophils # 3.52 (1.80-7.70) 10*3/uL Lymphocytes # 0.49 L (0.90-5.00) 10*3/uL Monocytes # 0.18 L (0.20-1.00) 10*3/uL Eosinophils # 0.07 (0.04-0.35) 10*3/uL Basophils # 0.02 (0.00-0.10) 10*3/uL Immature Plt Fraction 8.4 H (1.1-6.1) % Anisocytosis (manual) Present Ovalocytes Present PT 10.9 (10.0-12.5) sec INR 1.0 (<1.2) APTT 20.7 L (22.0-30.0) sec Sodium 139 (137-145) mmol/L Potassium 5.1 (3.5-5.1) mmol/L Chloride 103 (98-107) mmol/L Carbon Dioxide 28 (22-30) mmol/L Anion Gap 8 mmol/L BUN 13 (7-17) mg/dL Creatinine 0.73 (0.52-1.04) mg/dL Est GFR (CKD-EPI)AfAm >90 (>60 ml/min/1.73 sqM) Est GFR (CKD-EPI)NonAf 83 (>60 ml/min/1.73 sqM) Glucose 209 H (74-99) mg/dL POC Glucose (mg/dL) (70-110) mg/dL POC Glu Auto Body Repairer ID Plasma Lactic Acid Lloyd (0.7-2.0) mmol/L Calcium 8.3 L (8.4-10.2) mg/dL Total Bilirubin 0.8 (0.2-1.3) mg/dL AST 25 (14-36) U/L ALT 12 (4-34) U/L Alkaline Phosphatase 228 H (38-126) U/L Troponin I (0.000-0.034) ng/mL NT-Pro-B Natriuret Pep 1330 pg/mL Total Protein 6.8 (6.3-8.2) g/dL Albumin 3.3 L (3.5-5.0) g/dL 02/25/25 02/25/25 02/25/25 Range/Units 05:03 05:03 05:12 WBC (4.50-10.00) 10*3/uL RBC (4.10-5.20) 10*6/uL Hgb (12.0-15.0) g/dL Hct (37.2-46.3) % MCV (80.0-97.0) fL MCH (27.0-32.0) pg MCHC (32.0-37.0) g/dL Plt Count (140-440) 10*3/uL Immature Gran % (Auto) % Neutrophils % % Lymphocytes % % Monocytes % % Eosinophils % % Basophils % % Immature Gran # (0.00-0.04) 10*3/uL Neutrophils # (1.80-7.70) 10*3/uL Lymphocytes # (0.90-5.00) 10*3/uL Monocytes # (0.20-1.00) 10*3/uL Eosinophils # (0.04-0.35) 10*3/uL Basophils # (0.00-0.10) 10*3/uL Immature Plt Fraction (1.1-6.1) % Anisocytosis (manual) Ovalocytes PT (10.0-12.5) sec INR (<1.2) APTT (22.0-30.0) sec Sodium (137-145) mmol/L Potassium (3.5-5.1) mmol/L Chloride (98-107) mmol/L Carbon Dioxide (22-30) mmol/L Anion Gap mmol/L BUN (7-17) mg/dL Creatinine (0.52-1.04) mg/dL Est GFR (CKD-EPI)AfAm (>60 ml/min/1.73 sqM) Est GFR (CKD-EPI)NonAf (>60 ml/min/1.73 sqM) Glucose (74-99) mg/dL POC Glucose (mg/dL) 240 H (70-110) mg/dL POC Glu Auto Body Repairer ID [place] Plasma Lactic Acid Lloyd 2.0 (0.7-2.0) mmol/L Calcium (8.4-10.2) mg/dL Total Bilirubin (0.2-1.3) mg/dL AST (14-36) U/L ALT (4-34) U/L Alkaline Phosphatase (38-126) U/L Troponin I 0.039 H* (0.000-0.034) ng/mL NT-Pro-B Natriuret Pep pg/mL Total Protein (6.3-8.2) g/dL Albumin (3.5-5.0) g/dL - EKG Data -: EKG Interpreted by Me EKG shows normal: sinus rhythm, intervals (Normal), QRS complexes (Low voltage QRS complex) Rate: tachycardia (Rate 116 bpm) Interpretation: other (Possible old inferior VT) Disposition Clinical Impression: Mediastinal lymphadenopathy, Pneumonia, Sepsis Disposition: ADMITTED IP TO THIS [facility] Condition: Serious Referrals: None,Stated [Primary Care Provider] - 1-2 days
[2025-02-25 06:02] LABS: INR 1.0 (<1.2); Partial Thromboplastin Time 20.7 sec (22.0-30.0); Prothrombin Time 10.9 sec (10.0-12.5)
[2025-02-25] MEDS: LORazepam 1 MG/0.5 ML VIAL IV STA (06:02)
--- NOTE | 2025-02-25 06:03 | XR ---
EXAM: XR Chest, 1 View CLINICAL HISTORY: Difficulty breathing TECHNIQUE: Frontal view of the chest. COMPARISON: Chest radiograph 01/15/2025 FINDINGS: Lungs: Worsening bilateral airspace opacities concerning for multifocal pneumonia and/or pulmonary edema. Pleural space: Worsening small pleural effusions. No pneumothorax. Heart: Unremarkable. No cardiomegaly. Mediastinum: Unremarkable. Normal mediastinal contour. Bones/joints: There are degenerative changes of the spine. No acute fracture. IMPRESSION: 1. Worsening bilateral airspace opacities concerning for multifocal pneumonia and/or pulmonary edema. 2. Worsening small pleural effusions.
[2025-02-25 06:13] LABS: MCV 91.8 fL (80.0-97.0)
[2025-02-25 07:38] LABS: Anisocytosis (M) Present; Ovalocytes Present
[2025-02-25] MEDS: KETOROLAC 15 MG/ML 1 ML VIAL IVP STA (08:02)
[2025-02-25 08:52] LABS: ABG HCO3 30 mmol/L (21-25); ABG PCO2 70 mmHg (35-45); ABG PH 7.25 (7.35-7.45); ABG TCO2 32 mmol/L (19-24); Allen Test Performed? Yes
[2025-02-25 08:55] LABS: ABG PO2 33 mmHg (83-108)
[2025-02-25 09:16] LABS: ABG HCO3 31 mmol/L (21-25); ABG PCO2 61 mmHg (35-45); ABG PH 7.32 (7.35-7.45); ABG PO2 87 mmHg (83-108); ABG TCO2 33 mmol/L (19-24); Allen Test Performed? Yes
[2025-02-25] MEDS: PIPERACILLIN-TAZOBACTAM 3.375 GM in SODIUM CHLORIDE 0.9% 100 ML IVPB SCH (09:23)
[2025-02-25] MEDS: FUROSEMIDE 10 MG/ML 4 ML VIAL IV STA (09:27)
--- NOTE | 2025-02-25 09:46 | US ---
EXAMINATION TYPE: US venous doppler duplex LE DATE OF EXAM: 02/25/2025 9:00 AM COMPARISON: NONE CLINICAL INDICATION: Female, 70 years old with history of Hypoxemia, h/o DVT; HX of DVT on blood thin ners. TECHNIQUE: The lower extremity deep venous system is examined utilizing real time linear array sonog macie with graded compression, doppler sonography and color-flow sonography. Grayscale, color doppler , spectral doppler imaging performed of the deep veins of the lower extremities FINDINGS: SIDE PERFORMED: Bilateral VESSELS IMAGED: Common Femoral Vein Deep Femoral Vein Greater Saphenous Vein * Femoral Vein Popliteal Vein Small Saphenous Vein * Proximal Calf Veins (* superficial vessels) Right Leg: Negative for DVT; There is normal flow, compressibility, vascular waveforms. Left Leg: Negative for DVT; There is normal flow, compressibility, vascular waveforms. IMPRESSION: 1. Bilateral lower extremity ultrasound negative for deep venous thrombosis. [facility], Workstation: [email or web address], 02/25/2025 9:43 AM
[2025-02-25] MEDS: diphenhydrAMINE 50 MG/ML 1 ML VIAL IVP STA (10:34)
[2025-02-25] MEDS: methylPREDNISolone SOD SUCCI 125 MG/2 ML VIAL IV STA (10:38)
[2025-02-25] MEDS: FAMOTIDINE 20 MG/2 ML VIAL IV STA (10:41)
[2025-02-25] MEDS ORDERED: IPRATROPIUM-ALBUTEROL 3 ML NEB INHALATION PRN (11:09)
[2025-02-25] MEDS: IPRATROPIUM-ALBUTEROL 3 ML NEB INHALATION STA (11:12)
[2025-02-25] MEDS: IPRATROPIUM-ALBUTEROL 3 ML NEB INHALATION SCH (11:12)
--- NOTE | 2025-02-25 11:26 | CT ---
EXAMINATION TYPE: CT angio chest DATE OF EXAM: 02/25/2025 11:12 AM COMPARISON: CT 02/13/2025 CLINICAL INDICATION: Female, 70 years old with history of elevated ddimer, r/o PE, elevated d dimer, TECHNIQUE: CT of the chest is performed on a spiral scan at 2 mm thick sections. Study is performed with intravenous contrast timed for evaluation for pulmonary embolism. This will limit additional po rtions of the evaluation. 10mm MIP images reconstructed by the technologist are reviewed on the comp uter in the coronal and sagittal planes. Contrast used:100 mL of Isovue 370 with IV Contrast, (none if empty) Oral contrast used: (none if empty) CT DLP: 632.7 mGycm, Automated exposure control for dose reduction was used. FINDINGS: No persistent filling defects are evident to suggest an acute pulmonary embolism. There is diffuse soft tissue thickening throughout the pretracheal space. The ascending aorta diameter at the level of the main pulmonary artery is 2.8 cm. The main pulmonary artery diameter at the bifurcation is 2.6 cm. Minimal pericardial effusion is present. Moderate bilateral pleural effusions are present. Nonspecific infiltrates in the anterior right midlu ng, example image series 406 image 64. Compressive atelectasis is adjacent to the pleural effusions. Severe coronary artery calcifications present. Limited CT sections were through the upper abdomen. Upper abdomen appears unremarkable. IMPRESSION: 1. No acute pulmonary embolism. 2. Soft tissue mass correlating with the PET/CT within the pretracheal space of the mediastinum. 3. Nonspecific infiltrate anterior right mid lung. Continued follow-up recommended. 4. Small to moderate bilateral pleural effusions with adjacent compressive atelectasis. [facility], Workstation: [id number], 02/25/2025 11:24 AM
--- NOTE | 2025-02-25 11:49 | P.HPIM ---
History of Present Illness This is a pleasant 70 years old female with past medical history of multiple medical problems Patient cannot provide information as currently on BiPAP and nonverbal. Information were obtained with the help of the daughter at bedside. Patient has been having shortness of breath recently. She underwent lung biopsy with Dr. Alegria yesterday and results was fine. Infection was suspected but she was only little wheezing when she went home and with no chest pain or dyspnea however overnight she has more work of breathing increased and more labored she was coughing sweating and did a lot of pain so she came to the emergency room. Patient currently nonverbal As per daughter patient Eliquis was held 1 month ago for unknown reason and aspirin and Plavix were off for 5 months for the procedure She had a fever while in the hospital about 102.5. Blood pressure 101/98. She is breathing around 25 to 30/min Ultrasound of the leg is negative for DVT. EKG showing sinus tachycardia at [address]-T changes. Chest x-ray showing multifocal pneumonia reviewed yesterday by myself and agree. Also there is some evidence of worsening pleural effusion. pH is low at 7.25 and pCO2 is elevated 61. Troponin is elevated 0.05 and 0.059. proBNP is high 1330. Patient on Zosyn. Review of Systems ROS unobtainable: due to mental status Past Medical History Past Medical History: Blood Disorder, Cancer, Diabetes Mellitus, Deep Vein Thrombosis (DVT), GERD/Reflux, Hyperlipidemia, Hypertension, Myocardial Infarction (AL), Neurologic Disorder, Osteoarthritis (OA), Pneumonia, Pulmonary Embolus (PE), Thyroid Disorder Additional Past Medical History / Comment(s): See Dr Babcock's H&P. Factor 5 Leiden, hx DVT L leg, hx PE L lung, hx [place] X5, palpitations, IDDM type II, neuropathy bilateral legs/feet, lymphedema L leg, charcot syndrome L foot, chronic low back pain, bilateral sciatica, hx bronchitis, anemia, hypothyroid, constipation, hx UTI, IBS, sinus problems, worsening tremors, hx skin cancer removal, hx pelvic fracture, clausterphobia, hx severe vertigo, poor balance and prone to falls. Moderate pericardial effusion wearing oxygen 2-3 L atc Last Myocardial Infarction Date:: January 2020 History of Any Multi-Drug Resistant Organisms: VRE Date of last positivie culture/infection: 08/24/23 MDRO Source:: Urine Past Surgical History: Appendectomy, Cholecystectomy, Heart Catheterization With Stent, Hernia Repair, Hysterectomy, Tonsillectomy Additional Past Surgical History / Comment(s): Bilateral salpingectomy, bilateral oophorectomy, abdominal hernia surgeries, L foot fracture, bilateral cataract removals, lumbar epidural injections. Past Anesthesia/Blood Transfusion Reactions: No Reported Reaction Additional Past Anesthesia/Blood Transfusion Reaction / Comment(s): Pt has received blood in past without reaction. Date of Last Stent Placement:: January 2020 Past Psychological History: Anxiety, Depression, Panic Disorder Smoking Status: Former smoker - Past Family History Mother Family Medical History: COPD Additional Family Medical History / Comment(s): Mother was a smoker. Father Family Medical History: Cancer Additional Family Medical History / Comment(s): Lung cancer. Father was a smoker. Son(s) Family Medical History: Deep Vein Thrombosis (DVT) Medications and Allergies Home Medications Medication Instructions Recorded Confirmed Type Clopidogrel [Plavix] 75 mg PO DAILY 07/07/19 02/25/25 History traZODone HCL [Desyrel] 100 mg PO HS 07/07/19 02/25/25 History Insulin Glargine,Hum.rec.anlog 20 units SQ BID 06/09/21 02/25/25 History [Lantus Solostar Pen] Insulin Lispro [humaLOG Kwikpen] See Protocol SQ ACHS 09/21/23 02/25/25 History Acetaminophen Tab [Tylenol] 650 mg PO Q4H PRN 12/13/24 02/25/25 History Atorvastatin [Lipitor] 80 mg PO HS 12/13/24 02/25/25 History Ondansetron [Zofran] 4 mg PO Q8H PRN 12/13/24 02/25/25 History Sennosides-Docusate Sodium 1 tab PO BID 12/13/24 02/25/25 History [Senokot-S] Metoprolol Tartrate [Lopressor] 12.5 mg PO BID@0900,2100 01/03/25 02/25/25 History Aspirin 81 mg PO DAILY 01/16/25 02/25/25 History Levothyroxine Sodium 200 mcg PO DAILY@0600 01/16/25 02/25/25 History Sacubitril/Valsartan [Entresto 24 0.5 tab PO BID 01/16/25 02/25/25 History mg-26 mg Tablet] Spironolactone [Aldactone] 12.5 mg PO BID 01/16/25 02/25/25 History Insulin Lispro [humaLOG Kwikpen] 6 unit SQ AC-TID 01/28/25 02/25/25 History Midodrine [ProAmatine] 5 mg PO TID-W/MEALS 01/28/25 02/25/25 History Escitalopram [Lexapro] 10 mg PO DAILY 30 Days #30 tablet 01/29/25 02/25/25 Rx Furosemide [Lasix] 40 mg PO DAILY #30 tablet 01/29/25 02/25/25 Rx oxyCODONE HCL [OxyIR] 5 mg PO TID PRN #30 tab 01/29/25 02/25/25 Rx ALPRAZolam [Xanax] 1 mg PO TID PRN 02/25/25 02/25/25 History Apixaban [Eliquis] 5 mg PO BID 02/25/25 02/25/25 History Allergies Allergy/AdvReac Type Severity Reaction Status Date / Time Iodinated Contrast Media Allergy Rash/Hives Verified 02/25/25 10:44 Iodine and Iodide Containing Allergy Rash/Hives Verified 02/25/25 10:44 Produc tositumomab iodine-131 Allergy Unknown Verified 02/25/25 10:44 liraglutide [From Saxenda] AdvReac Unknown Nausea & Verified 02/25/25 10:44 Vomiting NSAIDS (Non-Steroidal AdvReac Unknown Nausea & Verified 02/25/25 10:44 Anti-Inflamma Vomiting aspirin AdvReac Nausea & Verified 02/25/25 10:44 Vomiting with high doses azithromycin AdvReac Vomiting Verified 02/25/25 10:44 naproxen [From Naprosyn] AdvReac Nausea & Verified 02/25/25 10:44 Vomiting Physical Exam Vitals: Vital Signs Temp Pulse Resp BP Pulse Ox FiO2 02/25/25 11:27 94 02/25/25 11:13 92 40 02/25/25 11:05 97.7 F 91 28 H 104/46 97 02/25/25 10:10 93 30 H 101/48 96 02/25/25 09:34 99.9 F H 98 32 H 97/75 96 02/25/25 09:26 93 34 H 95/60 98 02/25/25 08:04 100.5 F H 97 30 H 117/54 97 02/25/25 07:35 50 02/25/25 07:28 98 32 H 109/58 96 02/25/25 06:30 102.2 F H 109 H 30 H 129/42 100 02/25/25 05:39 130 H 36 H 155/74 99 02/25/25 05:15 102.5 F H 02/25/25 05:13 60 02/25/25 05:05 80 02/25/25 05:04 80 02/25/25 04:49 40 H 02/25/25 04:41 102.1 F H 130 H 40 H 161/98 77 L Intake and Output 02/24/25 02/25/25 02/25/25 22:59 06:59 14:59 Other: Weight 113.398 kg -GENERAL: The patient is on BiPAP, cannot provide information, sleeping and drowsy HEENT: Pupils are round and equally reacting to light. EOMI. No scleral icterus. No conjunctival pallor. Normocephalic, atraumatic. No pharyngeal erythema. No thyromegaly. CARDIOVASCULAR: S1 and S2 present. No murmurs, rubs, or gallops. -PULMONARY: Chest is clear to auscultation, no wheezing , Tachypnea with bilateral crepitation ABDOMEN: Soft, nontender, nondistended, normoactive bowel sounds. No palpable organomegaly. MUSCULOSKELETAL: No joint swelling or deformity. EXTREMITIES: No cyanosis, clubbing, or pedal edema. NEUROLOGICAL: Gross neurological examination did not reveal any focal deficits. SKIN: No rashes. no petechiae. Results CBC & Chem 7: 02/25/25 05:03 02/25/25 05:03 Labs: Abnormal Lab Results - Last 24 Hours (Table) 02/25/25 02/25/25 02/25/25 Range/Units 05:03 05:03 05:03 WBC 4.31 L (4.50-10.00) 10*3/uL RBC 3.80 L (4.10-5.20) 10*6/uL Hgb 10.2 L (12.0-15.0) g/dL Hct 34.9 L (37.2-46.3) % MCH 26.8 L (27.0-32.0) pg MCHC 29.2 L (32.0-37.0) g/dL Plt Count 107 L (140-440) 10*3/uL Lymphocytes # 0.49 L (0.90-5.00) 10*3/uL Monocytes # 0.18 L (0.20-1.00) 10*3/uL Immature Plt Fraction 8.4 H (1.1-6.1) % APTT 20.7 L (22.0-30.0) sec D-Dimer (<0.60) mg/L FEU ABG pH (7.35-7.45) ABG pCO2 (35-45) mmHg ABG pO2 (83-108) mmHg ABG HCO3 (21-25) mmol/L ABG Total CO2 (19-24) mmol/L ABG O2 Saturation (94-97) % Hemoglobin (11.4-16.0) gm/dL Glucose 209 H (74-99) mg/dL POC Glucose (mg/dL) (70-110) mg/dL Calcium 8.3 L (8.4-10.2) mg/dL Alkaline Phosphatase 228 H (38-126) U/L Troponin I (0.000-0.034) ng/mL Albumin 3.3 L (3.5-5.0) g/dL 02/25/25 02/25/25 02/25/25 Range/Units 05:03 05:03 05:12 WBC (4.50-10.00) 10*3/uL RBC (4.10-5.20) 10*6/uL Hgb (12.0-15.0) g/dL Hct (37.2-46.3) % MCH (27.0-32.0) pg MCHC (32.0-37.0) g/dL Plt Count (140-440) 10*3/uL Lymphocytes # (0.90-5.00) 10*3/uL Monocytes # (0.20-1.00) 10*3/uL Immature Plt Fraction (1.1-6.1) % APTT (22.0-30.0) sec D-Dimer 4.33 H (<0.60) mg/L FEU ABG pH (7.35-7.45) ABG pCO2 (35-45) mmHg ABG pO2 (83-108) mmHg ABG HCO3 (21-25) mmol/L ABG Total CO2 (19-24) mmol/L ABG O2 Saturation (94-97) % Hemoglobin (11.4-16.0) gm/dL Glucose (74-99) mg/dL POC Glucose (mg/dL) 240 H (70-110) mg/dL Calcium (8.4-10.2) mg/dL Alkaline Phosphatase (38-126) U/L Troponin I 0.039 H* (0.000-0.034) ng/mL Albumin (3.5-5.0) g/dL 02/25/25 02/25/25 02/25/25 Range/Units 08:22 08:47 09:11 WBC (4.50-10.00) 10*3/uL RBC (4.10-5.20) 10*6/uL Hgb (12.0-15.0) g/dL Hct (37.2-46.3) % MCH (27.0-32.0) pg MCHC (32.0-37.0) g/dL Plt Count (140-440) 10*3/uL Lymphocytes # (0.90-5.00) 10*3/uL Monocytes # (0.20-1.00) 10*3/uL Immature Plt Fraction (1.1-6.1) % APTT (22.0-30.0) sec D-Dimer (<0.60) mg/L FEU ABG pH 7.25 L 7.32 L (7.35-7.45) ABG pCO2 70 H 61 H (35-45) mmHg ABG pO2 33 L* (83-108) mmHg ABG HCO3 30 H 31 H (21-25) mmol/L ABG Total CO2 32 H 33 H (19-24) mmol/L ABG O2 Saturation 58.7 L 97.2 H (94-97) % Hemoglobin 7.7 L 8.0 L (11.4-16.0) gm/dL Glucose (74-99) mg/dL POC Glucose (mg/dL) (70-110) mg/dL Calcium (8.4-10.2) mg/dL Alkaline Phosphatase (38-126) U/L Troponin I 0.059 H* (0.000-0.034) ng/mL Albumin (3.5-5.0) g/dL Assessment and Plan Assessment: Bilateral multifocal pneumonia Sepsis with fever and leukocytosis secondary to above Acute hypoxic respiratory failure Metabolic encephalopathy Congestive heart failure with possible acute exacerbation Metabolic acidosis Recently diagnosed lung mass s/p biopsy on 02/24. Results pending Diabetes mellitus Hypertension Hyperlipidemia History of osteoarthritis Hypothyroidism History of deep venous thrombosis Coronary artery disease History of pulmonary embolism Left leg lymphedema Chronic low back pain and sciatica Irritable bowel syndrome History of severe vertigo History of falls Plan: Continue with Zosyn. Follow-up culture results Continue with oxygen therapy and BiPAP Continue with bronchodilator Pulmonary and cardiac team consult hold Entresto and Aldactone Continue with insulin sliding scale Continue with midodrine and metoprolol if blood pressure allow Labs and medication were reviewed.. Continue same treatment. Continue with symptomatic treatment. Resume home medication. Monitor lytes and vitals. DVT and GI prophylaxis. Further recommendations depends on the clinical course of the patient DVT prophylaxis: Subcutaneous heparin GI Prophylaxis: Pepcid PT/OT: Pending Prognosis is guarded
[2025-02-25 11:51] LABS: Glucose,Whole Blood 294 mg/dL (70-110)
--- NOTE | 2025-02-25 12:56 | P.CNPUL ---
History of Present Illness Consult date: 02/25/25 Requesting physician: Jonathan E Jesica Reason for consult: dyspnea, chest pain, pneumothorax, abnormal CXR/CT Chief complaint: Shortness of breath History of present illness: This is a pleasant 70-year-old female patient with a history of hyperlipidemia, hypothyroidism, hypertension, DVT/PE anticoagulated with Eliquis however this had been stopped approximately 1 month ago. She was also recently found to have a right paratracheal necrotic lymph node/mass with central calcification that was PET avid. She was brought in electively yesterday for a transbronchial needle aspirate of station 4R. She tolerated the procedure well and was discharged to home. Approximately 4:30 this morning she woke up with acute shortness of breath and was brought to the emergency room by EMS. Chest x-ray revealed worsening bilateral airspace opacities concerning for multifocal pneumonia and/or pulmonary edema with worsening small pleural effusions. She was placed on BiPAP 16/7 and 50% FiO2. Arterial blood gases revealed a PO2 of 87, PCO2 of 61 and a pH of 7.32. White count 4.3. Hemoglobin 10.2. Platelets 107. INR 1.0. Sodium 139. Potassium 5.1. Bicarb 28. BUN 13. Creatinine 0.73. Glucose 209. Troponin 0.039, 0.059. Pro BNP 1330. She received ceftriaxone. She is seen today in consultation in the emergency department. She is currently resting on the stretcher. Awake and alert. Her daughter is at the bedside providing most of the information. She is maintaining O2 saturations in the mid 90s. She is afebrile. Hemodynamically stable. Slightly tachypneic. Review of Systems REVIEW OF SYSTEMS: CONSTITUTIONAL: Denies any recent significant weight loss or weight gain. EYES: Denies change in vision. EARS, NOSE, MOUTH, THROAT: Denies headaches, denies sore throat. CARDIOVASCULAR: Denies chest pain, palpitations or syncopal episodes. RESPIRATORY: Positive for shortness of breath, cough, congestion no hemoptysis. GASTROINTESTINAL: Denies change in appetite, denies abdominal pain GENITOURINARY: Denies hematuria, denies infections. MUSKULOSKELETAL: Denies pain, denies swelling. INTEGUMENTARY: Denies rash, denies eczema. NEUROLOGICAL: Denies recent memory loss, no recent seizure activity. PSYCHIATRIC: Denies anxiety, denies depression. HEMATOLOGIC/LYMPHATIC: Denies anemia, denies enlarged lymph nodes. Past Medical History Past Medical History: Blood Disorder, Cancer, Diabetes Mellitus, Deep Vein Th rombosis (DVT), GERD/Reflux, Hyperlipidemia, Hypertension, Myocardial Infarction ([place]), Neurologic Disorder, Osteoarthritis (OA), Pneumonia, Pulmonary Embolus (PE), Thyroid Disorder Additional Past Medical History / Comment(s): See Dr Babcock's H&P. Factor 5 Leiden, hx DVT L leg, hx PE L lung, hx [place] X5, palpitations, IDDM type II, neuropathy bilateral legs/feet, lymphedema L leg, charcot syndrome L foot, chronic low back pain, bilateral sciatica, hx bronchitis, anemia, hypothyroid, constipation, hx UTI, IBS, sinus problems, worsening tremors, hx skin cancer removal, hx pelvic fracture, clausterphobia, hx severe vertigo, poor balance and prone to falls. Moderate pericardial effusion wearing oxygen 2-3 L atc Last Myocardial Infarction Date:: January 2020 History of Any Multi-Drug Resistant Organisms: VRE Date of last positivie culture/infection: 08/24/23 MDRO Source:: Urine Past Surgical History: Appendectomy, Cholecystectomy, Heart Catheterization With Stent, Hernia Repair, Hysterectomy, Tonsillectomy Additional Past Surgical History / Comment(s): Bilateral salpingectomy, bilateral oophorectomy, abdominal hernia surgeries, L foot fracture, bilateral cataract removals, lumbar epidural injections. Past Anesthesia/Blood Transfusion Reactions: No Reported Reaction Additional Past Anesthesia/Blood Transfusion Reaction / Comment(s): Pt has received blood in past without reaction. Date of Last Stent Placement:: January 2020 Past Psychological History: Anxiety, Depression, Panic Disorder Smoking Status: Former smoker - Past Family History Mother Family Medical History: COPD Additional Family Medical History / Comment(s): Mother was a smoker. Father Family Medical History: Cancer Additional Family Medical History / Comment(s): Lung cancer. Father was a smoker. Son(s) Family Medical History: Deep Vein Thrombosis (DVT) Medications and Allergies Home Medications Medication Instructions Recorded Confirmed Type Clopidogrel [Plavix] 75 mg PO DAILY 07/07/19 02/25/25 History traZODone HCL [Desyrel] 100 mg PO HS 07/07/19 02/25/25 History Insulin Glargine,Hum.rec.anlog 20 units SQ BID 06/09/21 02/25/25 History [Lantus Solostar Pen] Insulin Lispro [humaLOG Kwikpen] See Protocol SQ ACHS 09/21/23 02/25/25 History Acetaminophen Tab [Tylenol] 650 mg PO Q4H PRN 12/13/24 02/25/25 History Atorvastatin [Lipitor] 80 mg PO HS 12/13/24 02/25/25 History Ondansetron [Zofran] 4 mg PO Q8H PRN 12/13/24 02/25/25 History Sennosides-Docusate Sodium 1 tab PO BID 12/13/24 02/25/25 History [Senokot-S] Metoprolol Tartrate [Lopressor] 12.5 mg PO BID@0900,2100 01/03/25 02/25/25 History Aspirin 81 mg PO DAILY 01/16/25 02/25/25 History Levothyroxine Sodium 200 mcg PO DAILY@0600 01/16/25 02/25/25 History Sacubitril/Valsartan [Entresto 24 0.5 tab PO BID 01/16/25 02/25/25 History mg-26 mg Tablet] Spironolactone [Aldactone] 12.5 mg PO BID 01/16/25 02/25/25 History Insulin Lispro [humaLOG Kwikpen] 6 unit SQ AC-TID 01/28/25 02/25/25 History Midodrine [ProAmatine] 5 mg PO TID-W/MEALS 01/28/25 02/25/25 History Escitalopram [Lexapro] 10 mg PO DAILY 30 Days #30 tablet 01/29/25 02/25/25 Rx Furosemide [Lasix] 40 mg PO DAILY #30 tablet 01/29/25 02/25/25 Rx oxyCODONE HCL [OxyIR] 5 mg PO TID PRN #30 tab 01/29/25 02/25/25 Rx ALPRAZolam [Xanax] 1 mg PO TID PRN 02/25/25 02/25/25 History Apixaban [Eliquis] 5 mg PO BID 02/25/25 02/25/25 History Allergies Allergy/AdvReac Type Severity Reaction Status Date / Time Iodinated Contrast Media Allergy Rash/Hives Verified 02/25/25 10:44 Iodine and Iodide Containing Allergy Rash/Hives Verified 02/25/25 10:44 Produc tositumomab iodine-131 Allergy Unknown Verified 02/25/25 10:44 liraglutide [From Saxenda] AdvReac Unknown Nausea & Verified 02/25/25 10:44 Vomiting NSAIDS (Non-Steroidal AdvReac Unknown Nausea & Verified 02/25/25 10:44 Anti-Inflamma Vomiting aspirin AdvReac Nausea & Verified 02/25/25 10:44 Vomiting with high doses azithromycin AdvReac Vomiting Verified 02/25/25 10:44 naproxen [From Naprosyn] AdvReac Nausea & Verified 02/25/25 10:44 Vomiting Physical Exam Vitals: Vital Signs Temp Pulse Resp BP Pulse Ox FiO2 02/25/25 11:27 94 02/25/25 11:13 92 40 02/25/25 11:05 97.7 F 91 28 H 104/46 97 02/25/25 10:10 93 30 H 101/48 96 02/25/25 09:34 99.9 F H 98 32 H 97/75 96 02/25/25 09:26 93 34 H 95/60 98 02/25/25 08:04 100.5 F H 97 30 H 117/54 97 02/25/25 07:35 50 02/25/25 07:28 98 32 H 109/58 96 02/25/25 06:30 102.2 F H 109 H 30 H 129/42 100 02/25/25 05:39 130 H 36 H 155/74 99 02/25/25 05:15 102.5 F H 02/25/25 05:13 60 02/25/25 05:05 80 02/25/25 05:04 80 02/25/25 04:49 40 H 02/25/25 04:41 102.1 F H 130 H 40 H 161/98 77 L Intake and Output 02/24/25 02/25/25 02/25/25 22:59 06:59 14:59 Other: # Voids 1 Weight 113.398 kg 113.398 kg GENERAL EXAM: Alert, 70-year-old female, on BiPAP 16/7 and 50% FiO2, fairly comfortable in no apparent distress. HEAD: Normocephalic. EYES: Normal reaction of pupils, equal size. NOSE: Clear with pink turbinates. THROAT: No erythema or exudates. NECK: No masses, no JVD. CHEST: No chest wall deformity. LUNGS: Equal air entry with bilateral scattered rhonchi, crackles in the posterior bases, diminished. CVS: S1 and S2 normal with no audible murmur, regular rhythm. ABDOMEN: No hepatosplenomegaly, normal bowel sounds, no guarding or rigidity. SPINE: No scoliosis or deformity SKIN: No rashes CENTRAL NERVOUS SYSTEM: No focal deficits, tone is normal in all 4 extremities. EXTREMITIES: Lymphedema of the left lower extremity. Charcot syndrome left foot. No clubbing, no cyanosis. Peripheral pulses are intact. Results - Laboratory Findings CBC and BMP: 02/25/25 05:03 02/25/25 05:03 ABG ABG pH 7.32 (7.35-7.45) L 02/25/25 09:11 ABG pCO2 61 mmHg (35-45) H 02/25/25 09:11 ABG pO2 87 mmHg (83-108) 02/25/25 09:11 ABG O2 Saturation 97.2 % (94-97) H 02/25/25 09:11 PT/INR, D-dimer PT 10.9 sec (10.0-12.5) 02/25/25 05:03 INR 1.0 (<1.2) 02/25/25 05:03 D-Dimer 4.33 mg/L FEU (<0.60) H 02/25/25 05:03 Abnormal lab findings: Abnormal Labs 02/25/25 02/25/25 02/25/25 05:03 05:03 05:03 WBC 4.31 L RBC 3.80 L Hgb 10.2 L Hct 34.9 L MCH 26.8 L MCHC 29.2 L Plt Count 107 L Lymphocytes # 0.49 L Monocytes # 0.18 L Immature Plt Fraction 8.4 H APTT 20.7 L D-Dimer ABG pH ABG pCO2 ABG pO2 ABG HCO3 ABG Total CO2 ABG O2 Saturation Hemoglobin Glucose 209 H POC Glucose (mg/dL) Calcium 8.3 L Alkaline Phosphatase 228 H Troponin I Albumin 3.3 L 02/25/25 02/25/25 02/25/25 05:03 05:03 05:12 WBC RBC Hgb Hct MCH MCHC Plt Count Lymphocytes # Monocytes # Immature Plt Fraction APTT D-Dimer 4.33 H ABG pH ABG pCO2 ABG pO2 ABG HCO3 ABG Total CO2 ABG O2 Saturation Hemoglobin Glucose POC Glucose (mg/dL) 240 H Calcium Alkaline Phosphatase Troponin I 0.039 H* Albumin 02/25/25 02/25/25 02/25/25 08:22 08:47 09:11 WBC RBC Hgb Hct MCH MCHC Plt Count Lymphocytes # Monocytes # Immature Plt Fraction APTT D-Dimer ABG pH 7.25 L 7.32 L ABG pCO2 70 H 61 H ABG pO2 33 L* ABG HCO3 30 H 31 H ABG Total CO2 32 H 33 H ABG O2 Saturation 58.7 L 97.2 H Hemoglobin 7.7 L 8.0 L Glucose POC Glucose (mg/dL) Calcium Alkaline Phosphatase Troponin I 0.059 H* Albumin 02/25/25 11:49 WBC RBC Hgb Hct MCH MCHC Plt Count Lymphocytes # Monocytes # Immature Plt Fraction APTT D-Dimer ABG pH ABG pCO2 ABG pO2 ABG HCO3 ABG Total CO2 ABG O2 Saturation Hemoglobin Glucose POC Glucose (mg/dL) 294 H Calcium Alkaline Phosphatase Troponin I Albumin - Diagnostic Findings Chest x-ray: image reviewed Assessment and Plan Assessment: Acute hypoxic respiratory failure secondary to acute exacerbation of suspected systolic versus diastolic congestive heart failure, bilateral pleural effusions, possible underlying pneumonia Troponin leak Right peritracheal necrotic lymph node/mass with central calcification, PET avid. Status post transbronchial needle aspirate of station 4R yesterday 02/24/2025 History of factor V Leyden deficiency with previous DVT/PE anticoagulated with Eliquis. This was stopped approximately one month ago for unclear reason Diabetes mellitus, type II Diabetic neuropathy Coronary disease with previous stent placement Hypertension Hyperlipidemia Hypothyroidism Anxiety/depression Former smoker Plan: The patient was seen and evaluated Chest x-ray, labs and medications reviewed ABGs reviewed Continue BiPAP support for now Titrate the FiO2 as tolerated Obtain a Doppler of the lower extremities Obtain a CT angiogram Obtain a D-dimer Initiate Lasix 40 mg IVP every 12 hours Initiate DuoNeb inhalations Transition to nasal cannula as tolerated Decrease lactated Ringer's to KVO Initiated on Zosyn Lovenox for DVT prophylaxis Will reconsider anticoagulation tomorrow We will continue to follow and make further recommendations based on her clinical status I have personally seen and examined the patient, performed the documentation and the assessment and plan as written. Number of minutes spent on the visit: 20 Dictation was produced using Shot[employer] dictation software. Please excuse any grammatical, word or spelling errors. Time with Patient: Greater than 30
--- NOTE | 2025-02-25 14:29 | XR ---
EXAMINATION TYPE: XR knee limited LT DATE OF EXAM: 02/25/2025 12:31 PM COMPARISON: None. CLINICAL INDICATION: Female, 70 years old with history of swelling, pain TECHNIQUE: 2 view(s) obtained. FINDINGS: Mild narrowing of the medial compartment joint space is present. No acute fracture or dislocation lauro dent. Minimal joint effusion may be present. Follow up exams can be performed 7-10 days or continued pain. IMPRESSION: 1. Suggestion of a minimal joint effusion. 2. No acute osseous abnormality radiographically apparent. 3. Mild chronic degenerative joint changes [facility], Workstation: [facility], 02/25/2025 2:26 PM
[2025-02-25] MEDS: MIDODRINE 5 MG TAB PO SCH (15:17)
[2025-02-25 16:42] LABS: Glucose,Whole Blood 391 mg/dL (70-110)
[2025-02-25] MEDS: INSULIN LISPRO (HumaLOG) 100 UNIT/ML 10 mL VL SQ SCH (17:03)
[2025-02-25 17:56] LABS: Bilirubin,Urine Negative (Negative); Blood,Urine Negative (Negative); Color,Urine Colorless; Glucose,Urine (UA) 1+ (Negative); Ketones,Urine Negative (Negative); Leukocyte Esterase,Urine Negative (Negative); Nitrite,Urine Negative (Negative); PH, Urine 7.0 (5.0-8.0); Protein,Urine Negative (Negative); Specific Gravity,Urine 1.011 (1.001-1.035); Urobilinogen,Urine <2.0 mg/dL (<2.0)
[2025-02-25 19:52] LABS: Glucose,Whole Blood 380 mg/dL (70-110)
[2025-02-25] MEDS: METOPROLOL TARTRATE 12.5 MG TAB PO SCH (20:30)
[2025-02-25] MEDS: APIXABAN 5 MG TAB PO SCH (20:30)
[2025-02-25] MEDS: SACUBITRIL/VALSARTAN 24 MG-26 MG TABLET PO SCH (20:30)
[2025-02-25] MEDS: ATORVASTATIN 80 MG TAB PO SCH (20:30)
[2025-02-25] MEDS: SPIRONOLACTONE 25 MG TAB PO SCH (20:31)
[2025-02-25] MEDS: INSULIN GLARGINE (LANTUS) 100 UNIT/ML SYR SQ SCH (20:31)
[2025-02-25] MEDS: FUROSEMIDE 10 MG/ML 4 ML VIAL IV SCH (20:31)
[2025-02-25] MEDS: ACETAMINOPHEN TAB 325 MG TAB PO PRN (20:41)
[2025-02-26] MEDS: guaiFENesin SYRUP 100MG/5ML 200 MG/10 ML CUP PO PRN (03:34)
[2025-02-26 05:54] LABS: Glucose,Whole Blood 333 mg/dL (70-110)
[2025-02-26] MEDS: LEVOTHYROXINE 100 MCG TAB PO SCH (05:54)
[2025-02-26] MEDS: INSULIN LISPRO (HumaLOG) 100 UNIT/ML 10 mL VL SQ SCH (07:03)
[2025-02-26] MEDS: CLOPIDOGREL 75 MG TAB PO SCH (08:43)
[2025-02-26] MEDS: ESCITALOPRAM 10 MG TAB PO SCH (08:43)
[2025-02-26] MEDS: ASPIRIN 81 MG PO SCH (08:43)
[2025-02-26] MEDS ORDERED: FUROSEMIDE 40 MG TAB PO SCH (09:00)
[2025-02-26 09:21] LABS: Basophils # (A) 0.02 10*3/uL (0.00-0.10); Basophils % (A) 0.6 %; Eosinophils # (A) 0.00 10*3/uL (0.04-0.35); Eosinophils % (A) 0.0 %; HCT 32.3 % (37.2-46.3); HGB 9.5 g/dL (12.0-15.0); Immature Platelet Fraction 9.5 % (1.1-6.1); Lymphocytes # (A) 0.23 10*3/uL (0.90-5.00); Lymphocytes % (A) 6.8 %; MCH 26.2 pg (27.0-32.0); MCHC 29.4 g/dL (32.0-37.0); MCV 89.2 fL (80.0-97.0); Monocytes # (A) 0.11 10*3/uL (0.20-1.00); Monocytes % (A) 3.3 %; Neutrophils # (A) 2.99 10*3/uL (1.80-7.70); Neutrophils % (A) 88.7 %; Platelet Count 108 10*3/uL (140-440); RBC 3.62 10*6/uL (4.10-5.20); RDW 21.6 % (11.5-14.5); WBC 3.37 10*3/uL (4.50-10.00)
[2025-02-26 09:35] LABS: African American GFR (CKD) 73 (>60 ml/min/1.73 sqM); Anion Gap 8 mmol/L; Blood Urea Nitrogen 23 mg/dL (7-17); Calcium 8.6 mg/dL (8.4-10.2); Carbon Dioxide 31 mmol/L (22-30); Chloride 93 mmol/L (98-107); Glucose 196 mg/dL (74-99); Non-African American GFR(CKD) 63 (>60 ml/min/1.73 sqM); Potassium 4.2 mmol/L (3.5-5.1); Sodium 132 mmol/L (137-145)
[2025-02-26 09:37] LABS: RSV Not Detected (Not Detectd)
[2025-02-26 10:28] VITALS: BMI 37.8
--- NOTE | 2025-02-26 10:56 | P.CRDCN ---
History of Present Illness History of present illness: HISTORY OF PRESENT ILLNESS: This is a 70-year-old female with a past medical history significant for coronary artery disease, pericardial effusion, hypertension, hyperlipidemia, GI bleed, and diabetes. Patient follows in the office with Dr. Marquez. We have been asked to see the patient in consultation for elevated troponins. Patient examined at the bedside. Patient presented to the hospital for chief complaint of shortness of breath. She also reports having a cough with sputum production. Patient was noted to be febrile upon admission. She remains febrile this morning with a temperature of 102.5. She currently denies any chest pain or pressure. DIAGNOSTICS: - EKG reveals sinus tachycardia with no signs of acute ischemia. - Chest xray worsening bilateral airspace opacities concerning for multifocal pneumonia and/or pulmonary edema. Worsening small pleural effusions. - Chest CTA: Negative for pulmonary embolism. Soft tissue mass correlating with PET scan within the pretracheal space of the mediastinum. - Venous Doppler: Negative for DVT bilaterally - Laboratory data: proBNP 1330. Troponin 0.039. 0.059. - Current home cardiac medications include Eliquis 5 mg twice a day, Aldactone 12.5 mg twice a day, Entresto 24-26 mg twice a day, midodrine 5 mg 3 times yessica ly, Toprol tartrate 12.5 mg twice a day, Lasix 40 mg daily, Plavix 75 mg daily, Lipitor 80 mg at night, aspirin 81 mg daily. - Most recent echocardiogram obtained in January 2025 revealed ejection fraction 55 to 60%, trace pericardial effusion - Cardiac catheterization history: October 2024 with stenting of the mid proximal and ostial right RCA with 3 drug-eluting stents REVIEW OF SYSTEMS: At the time of my exam: CONSTITUTIONAL: Denies fever or chills. HEENT: Denies blurred vision, vision changes, or eye pain. Denies hemoptysis CARDIOVASCULAR: Denies chest pain. Denies orthopnea. Denies PND. Denies palpitations RESPIRATORY: Reports shortness of breath. GASTROINTESTINAL: Denies abdominal pain. Denies nausea or vomiting. HEMATOLOGIC: Denies bleeding disorders. GENITOURINARY: Denies any blood in urine. SKIN: Denies pruitis. Denies rash. PHYSICAL EXAM: VITAL SIGNS: Reviewed. GENERAL: Well-developed in no acute distress. HEENT: Head is normocephalic. Pupils are equal, round. Sclerae anicteric. Mucous membranes of the mouth are moist. Neck supple. No JVD or thyromegaly LUNGS: Respirations even and unlabored. Lungs diminished bilaterally with coughing noted HEART: Regular rate and rhythm. S1 and S2 heard. ABDOMEN: Soft. Nondistended. Nontender. EXTREMITIES: Normal range of motion. No clubbing or cyanosis. Peripheral pulses intact. No lower extremity edema NEUROLOGIC: Awake and alert. Oriented x 3. ASSESSMENT: Shortness of breath Mild acute on chronic heart failure with preserved EF Bilateral pleural effusions Pneumonia Fever Elevated troponins, flat, type II GA secondary to oxygen supply and demand mismatch, no evidence of acute coronary syndrome Right peritracheal necrotic lymph node/mass with central calcification, status post biopsy Acute hypoxic respiratory failure Coronary artery disease with previous stenting Hypertension Hyperlipidemia History of GI bleeding History of factor V Leyden with history of DVT and PE Diabetes PLAN: An acute coronary event has been ruled out No need to repeat echocardiogram as this was performed in January 2025 Continue IV diuretics per pulmonary. Recommend transitioning to oral diuretics tomorrow Continue additional cardiac medications Further recommendations pending patient course Nurse practitioner note has been reviewed by physician. Signing provider agrees with the documented findings, assessment, and plan of care documented by [employer] as a scribe. Past Medical History Past Medical History: Blood Disorder, Cancer, Diabetes Mellitus, Deep Vein Thrombosis (DVT), GERD/Reflux, Hyperlipidemia, Hypertension, Myocardial Infarction (GA), Neurologic Disorder, Osteoarthritis (OA), Pneumonia, Pulmonary Embolus (PE), Thyroid Disorder Additional Past Medical History / Comment(s): See Dr Babcock's H&P. Factor 5 Leiden, hx DVT L leg, hx PE L lung, hx GA X5, palpitations, IDDM type II, neuropathy bilateral legs/feet, lymphedema L leg, charcot syndrome L foot, chronic low back pain, bilateral sciatica, hx bronchitis, anemia, hypothyroid, constipation, hx UTI, IBS, sinus problems, worsening tremors, hx skin cancer removal, hx pelvic fracture, clausterphobia, hx severe vertigo, poor balance and prone to falls. Moderate pericardial effusion wearing oxygen 2-3 L atc Last Myocardial Infarction Date:: January 2020 History of Any Multi-Drug Resistant Organisms: VRE Date of last positivie culture/infection: 08/24/23 MDRO Source:: Urine Past Surgical History: Appendectomy, Cholecystectomy, Heart Catheterization With Stent, Hernia Repair, Hysterectomy, Tonsillectomy Additional Past Surgical History / Comment(s): Bilateral salpingectomy, bilateral oophorectomy, abdominal hernia surgeries, L foot fracture, bilateral cataract removals, lumbar epidural injections. Past Anesthesia/Blood Transfusion Reactions: No Reported Reaction Additional Past Anesthesia/Blood Transfusion Reaction / Comment(s): Pt has received blood in past without reaction. Date of Last Stent Placement:: January 2020 Past Psychological History: Anxiety, Depression, Panic Disorder Smoking Status: Former smoker - Past Family History Mother Family Medical History: COPD Additional Family Medical History / Comment(s): Mother was a smoker. Father Family Medical History: Cancer Additional Family Medical History / Comment(s): Lung cancer. Father was a smoker. Son(s) Family Medical History: Deep Vein Thrombosis (DVT) Medications and Allergies Home Medications Medication Instructions Recorded Confirmed Type Clopidogrel [Plavix] 75 mg PO DAILY 07/07/19 02/25/25 History traZODone HCL [Desyrel] 100 mg PO HS 07/07/19 02/25/25 History Insulin Glargine,Hum.rec.anlog 20 units SQ BID 06/09/21 02/25/25 History [Lantus Solostar Pen] Insulin Lispro [humaLOG Kwikpen] See Protocol SQ ACHS 09/21/23 02/25/25 History Acetaminophen Tab [Tylenol] 650 mg PO Q4H PRN 12/13/24 02/25/25 History Atorvastatin [Lipitor] 80 mg PO HS 12/13/24 02/25/25 History Ondansetron [Zofran] 4 mg PO Q8H PRN 12/13/24 02/25/25 History Sennosides-Docusate Sodium 1 tab PO BID 12/13/24 02/25/25 History [Senokot-S] Metoprolol Tartrate [Lopressor] 12.5 mg PO BID@0900,2100 01/03/25 02/25/25 History Aspirin 81 mg PO DAILY 01/16/25 02/25/25 History Levothyroxine Sodium 200 mcg PO DAILY@0600 01/16/25 02/25/25 History Sacubitril/Valsartan [Entresto 24 0.5 tab PO BID 01/16/25 02/25/25 History mg-26 mg Tablet] Spironolactone [Aldactone] 12.5 mg PO BID 01/16/25 02/25/25 History Insulin Lispro [humaLOG Kwikpen] 6 unit SQ AC-TID 01/28/25 02/25/25 History Midodrine [ProAmatine] 5 mg PO TID-W/MEALS 01/28/25 02/25/25 History Escitalopram [Lexapro] 10 mg PO DAILY 30 Days #30 tablet 01/29/25 02/25/25 Rx Furosemide [Lasix] 40 mg PO DAILY #30 tablet 01/29/25 02/25/25 Rx oxyCODONE HCL [OxyIR] 5 mg PO TID PRN #30 tab 01/29/25 02/25/25 Rx ALPRAZolam [Xanax] 1 mg PO TID PRN 02/25/25 02/25/25 History Apixaban [Eliquis] 5 mg PO BID 02/25/25 02/25/25 History Allergies Allergy/AdvReac Type Severity Reaction Status Date / Time Iodinated Contrast Media Allergy Rash/Hives Verified 02/25/25 10:44 Iodine and Iodide Containing Allergy Rash/Hives Verified 02/25/25 10:44 Produc tositumomab iodine-131 Allergy Unknown Verified 02/25/25 10:44 liraglutide [From Saxenda] AdvReac Unknown Nausea & Verified 02/25/25 10:44 Vomiting NSAIDS (Non-Steroidal AdvReac Unknown Nausea & Verified 02/25/25 10:44 Anti-Inflamma Vomiting aspirin AdvReac Nausea & Verified 02/25/25 10:44 Vomiting with high doses azithromycin AdvReac Vomiting Verified 02/25/25 10:44 naproxen [From Naprosyn] AdvReac Nausea & Verified 02/25/25 10:44 Vomiting Physical Exam Vitals: Vital Signs Temp Pulse Pulse Pulse Resp BP BP 02/26/25 04:00 98.1 F 84 18 117/66 02/25/25 23:34 98.1 F 87 18 97/52 02/25/25 20:00 99.9 F H 99 18 117/68 02/25/25 17:04 147/73 02/25/25 15:00 98.8 F 95 28 H 128/58 02/25/25 11:27 94 02/25/25 11:15 97.8 F 97 97 32 H 95/50 02/25/25 11:13 92 02/25/25 11:05 97.7 F 91 28 H 104/46 02/25/25 10:10 93 30 H 101/48 02/25/25 09:34 99.9 F H 98 32 H 97/75 02/25/25 09:26 93 34 H 95/60 Pulse Ox FiO2 02/26/25 04:00 95 02/25/25 23:34 93 L 02/25/25 20:00 97 02/25/25 17:04 02/25/25 15:00 98 02/25/25 11:27 02/25/25 11:15 99 02/25/25 11:13 40 02/25/25 11:05 97 02/25/25 10:10 96 02/25/25 09:34 96 02/25/25 09:26 98 Intake and Output 02/25/25 02/26/25 02/26/25 22:59 06:59 14:59 Intake Total 180 Output Total 9849 327 6267 Balance -1700 -700 -1020 Intake: Oral 180 Output: Urine 4838 157 1276 Other: Voiding Method External Catheter External Catheter Weight 103 kg Results 02/26/25 08:13 02/26/25 08:13 Cardiac Enzymes 02/25/25 Range/Units 08:22 Troponin I 0.059 H* (0.000-0.034) ng/mL Current Medications Generic Name Dose Route Start Last Admin Trade Name Freq PRN Reason Stop Dose Admin Acetaminophen 650 mg 02/25/25 19:01 02/25/25 20:41 Acetaminophen Tab 325 Mg Tab PO 650 mg Q4H PRN Administration Pain Albuterol/Ipratropium 3 ml 02/25/25 12:00 02/25/25 21:25 Ipratropium-Albuterol 3 Ml Neb INHALATION Not Given RT-QID FLO Albuterol/Ipratropium 3 ml 02/25/25 11:09 Ipratropium-Albuterol 3 Ml Neb INHALATION RT-Q2H PRN Shortness Of Breath Or Wheezing Alprazolam 1 mg 02/25/25 19:01 02/26/25 05:54 Alprazolam 1 Mg Tab PO 1 mg TID PRN Administration Anxiety Apixaban 5 mg 07/23/25 21:00 02/25/25 20:30 Apixaban 5 Mg Tab PO 5 mg BID FLO Administration Protocol Aspirin 81 mg 02/26/25 09:00 Aspirin 81 Mg PO DAILY FLO Atorvastatin Calcium 80 mg 02/25/25 21:00 02/25/25 20:30 Atorvastatin 80 Mg Tab PO 80 mg HS FLO Administration Clopidogrel Bisulfate 75 mg 02/26/25 09:00 Clopidogrel 75 Mg Tab PO DAILY [facility] Escitalopram Oxalate 10 mg 02/26/25 09:00 Escitalopram 10 Mg Tab PO DAILY [facility] Furosemide 40 mg 02/25/25 21:00 02/25/25 20:31 Furosemide 10 Mg/Ml 4 Ml Vial IV 40 mg Q12HR FLO Administration Guaifenesin 100 mg 02/25/25 22:32 02/26/25 03:34 Guaifenesin Syrup 100mg/5ml 200 Mg/10 Ml Cup PO 100 mg Q6HR PRN Administration Cough Lactated Ringer's 1,000 mls @ 10 mls/hr 02/25/25 05:30 02/25/25 09:24 Lactated Ringers IV 10 mls/hr .Q24H FLO Administration Piperacillin Sod/Tazobactam 100 mls @ 25 mls/hr 02/25/25 08:45 02/25/25 23:16 Sod 3.375 gm/ Sodium Chloride IVPB 25 mls/hr Q8HR FLO Administration Protocol Insulin Glargine 20 unit 02/25/25 21:00 02/26/25 07:02 Insulin Glargine (Lantus) 100 Unit/Ml Syr SQ 20 unit BID@0700,2100 FLO Administration Insulin Human Lispro 0 unit 02/25/25 17:30 02/26/25 07:02 Insulin Lispro (Humalog) 100 Unit/Ml 10 Ml Vl SQ 8 unit ACHS FLO Administration Protocol Insulin Human Lispro 6 unit 02/26/25 07:30 02/26/25 07:03 Insulin Lispro (Humalog) 100 Unit/Ml 10 Ml Vl SQ 6 unit AC-TID FLO Administration Levothyroxine Sodium 200 mcg 02/26/25 06:00 02/26/25 05:54 Levothyroxine 100 Mcg Tab PO 200 mcg DAILY@0600 FLO Administration Metoprolol Tartrate 12.5 mg 02/25/25 21:00 02/25/25 20:30 Metoprolol Tartrate 12.5 Mg Tab PO 12.5 mg BID@0900,2100 FLO Administration Midodrine 5 mg 02/25/25 12:30 02/26/25 07:03 Midodrine 5 Mg Tab PO Not Given TID-W/MEALS FLO Ondansetron HCl 4 mg 02/25/25 19:01 Ondansetron Odt 4 Mg Tab PO Q8H PRN Nausea Oxycodone HCl 5 mg 02/25/25 19:01 02/26/25 03:34 Oxycodone Hcl 5 Mg Tab PO 5 mg TID PRN Administration Pain Sacubitril/Valsartan 0.5 each 02/25/25 21:00 02/25/25 20:30 Sacubitril/Valsartan 24 Mg-26 Mg Tablet PO 0.5 each BID FLO Administration Senna/Docusate Sodium 1 each 02/25/25 11:46 Sennosides-Docusate Sodium 1 Each Tab PO BID PRN Constipation Spironolactone 12.5 mg 02/25/25 21:00 02/25/25 20:31 Spironolactone 25 Mg Tab PO 12.5 mg BID FLO Administration Trazodone HCl 100 mg 02/25/25 21:00 02/25/25 20:30 Trazodone Hcl 100 Mg Tab PO 100 mg HS FLO Administration Intake and Output 02/25/25 02/26/25 02/26/25 22:59 06:59 14:59 Intake Total 180 Output Total 1696 612 6820 Balance -1700 -700 -1020 Intake: Oral 180 Output: Urine 8383 517 4528 Other: Voiding Method External Catheter External Catheter Weight 103 kg 02/25/25 05:03 02/25/25 05:03
[2025-02-26 11:21] LABS: Glucose,Whole Blood 105 mg/dL (70-110)
--- NOTE | 2025-02-26 12:27 | P.PN ---
Subjective Progress Note Date: 02/26/25 Principal diagnosis: Acute on chronic hypoxic and hypercapnic respiratory failure, multifactorial suspect acute on chronic diastolic congestive heart failure with compressive atelectasis, possible underlying pneumonia. This is a pleasant 70-year-old female patient with a history of hyperlipidemia, hypothyroidism, hypertension, DVT/PE anticoagulated with Eliquis however this h ad been stopped approximately 1 month ago. She was also recently found to have a right paratracheal necrotic lymph node/mass with central calcification that was PET avid. She was brought in electively yesterday for a transbronchial needle aspirate of station 4R. She tolerated the procedure well and was discharged to home. Approximately 4:30 this morning she woke up with acute shortness of breath and was brought to the emergency room by EMS. Chest x-ray revealed worsening bilateral airspace opacities concerning for multifocal pneumonia and/or pulmonary edema with worsening small pleural effusions. She was placed on BiPAP 16/7 and 50% FiO2. Arterial blood gases revealed a PO2 of 87, PCO2 of 61 and a pH of 7.32. White count 4.3. Hemoglobin 10.2. Platelets 107. INR 1.0. Sodium 139. Potassium 5.1. Bicarb 28. BUN 13. Creatinine 0.73. Glucose 209. Troponin 0.039, 0.059. Pro BNP 1330. She received ceftriaxone. She is seen today in consultation in the emergency department. She is currently resting on the stretcher. Awake and alert. Her daughter is at the bedside providing most of the information. She is maintaining O2 saturations in the mid 90s. She is afebrile. Hemodynamically stable. Slightly tachypneic. Patient was seen today on 02/26/2025, she seems to be doing much better today, breathing a lot easier. Patient is definitely more awake, does not seem to be in any distress, down to 3 L nasal cannula and O2 saturation 95%. She had a low-grade temp of 99.7 last night. Today's temp is 98.9. WBC count is 3.37 hemoglobin is 9.5 electrolytes are normal bicarb is 31 BUN is 23 creatinine 0.92. Chest x-ray this morning is pending. Again clinically I have noted that the patient is much better today compared to her initial presentation to the ER yesterday. Objective - Vital Signs Vital signs: Vital Signs Temp 98.9 F 02/26/25 11:24 Pulse 81 02/26/25 11:24 Resp 18 02/26/25 11:24 BP 89/47 02/26/25 11:24 Pulse Ox 95 02/26/25 11:24 FiO2 40 02/25/25 11:13 Intake & Output 02/25/25 02/26/25 02/26/25 18:59 06:59 18:59 Intake Total 420 Output Total 3400 700 1800 Balance -3400 -700 -1380 Weight 113.398 kg 103 kg 103 kg Intake: Oral 420 Output: Urine 3400 700 1800 Other: Voiding Method External Catheter External Catheter External Catheter # Voids 1 - Exam GENERAL EXAM: Reveals 70-year-old female in no distress on 3 L nasal cannula HEAD: Normocephalic. EYES: Normal reaction of pupils, equal size. NOSE: Clear with pink turbinates. THROAT: No erythema or exudates. NECK: No masses, no JVD. CHEST: No chest wall deformity. LUNGS: Diminished breath sound bilaterally no crackles rhonchi or wheezes CVS: S1 and S2 normal with no audible murmur, regular rhythm. ABDOMEN: No hepatosplenomegaly, normal bowel sounds, no guarding or rigidity. SKIN: No rashes CENTRAL NERVOUS SYSTEM: Alert and oriented x 3 no gross focal neurologic deficit EXTREMITIES: Lymphedema of the left lower extremity. Charcot syndrome left foot. No clubbing, no cyanosis. Peripheral pulses are intact. - Labs CBC & Chem 7: 02/26/25 08:13 02/26/25 08:13 Labs: Abnormal Lab Results - Last 24 Hours (Table) 02/25/25 02/25/25 02/25/25 Range/Units 06:33 16:40 19:51 WBC (4.50-10.00) 10*3/uL RBC (4.10-5.20) 10*6/uL Hgb (12.0-15.0) g/dL Hct (37.2-46.3) % MCH (27.0-32.0) pg MCHC (32.0-37.0) g/dL Plt Count (140-440) 10*3/uL Lymphocytes # (0.90-5.00) 10*3/uL Monocytes # (0.20-1.00) 10*3/uL Eosinophils # (0.04-0.35) 10*3/uL Immature Plt Fraction (1.1-6.1) % Sodium (137-145) mmol/L Chloride (98-107) mmol/L Carbon Dioxide (22-30) mmol/L BUN (7-17) mg/dL Glucose (74-99) mg/dL POC Glucose (mg/dL) 391 H 380 H (70-110) mg/dL Urine Glucose (UA) 1+ H (Negative) 02/26/25 02/26/25 02/26/25 Range/Units 05:52 08:13 08:13 WBC 3.37 L (4.50-10.00) 10*3/uL RBC 3.62 L (4.10-5.20) 10*6/uL Hgb 9.5 L (12.0-15.0) g/dL Hct 32.3 L (37.2-46.3) % MCH 26.2 L (27.0-32.0) pg MCHC 29.4 L (32.0-37.0) g/dL Plt Count 108 L (140-440) 10*3/uL Lymphocytes # 0.23 L (0.90-5.00) 10*3/uL Monocytes # 0.11 L (0.20-1.00) 10*3/uL Eosinophils # 0.00 L (0.04-0.35) 10*3/uL Immature Plt Fraction 9.5 H (1.1-6.1) % Sodium 132 L (137-145) mmol/L Chloride 93 L (98-107) mmol/L Carbon Dioxide 31 H (22-30) mmol/L BUN 23 H (7-17) mg/dL Glucose 196 H (74-99) mg/dL POC Glucose (mg/dL) 333 H (70-110) mg/dL Urine Glucose (UA) (Negative) Assessment and Plan Assessment: Impression: Acute on chronic hypoxic and hypercapnic respiratory failure, multifactorial. Suspect acute on chronic diastolic congestive heart failure and possible healthcare acquired pneumonia, as well as underlying COPD Troponin leak Right peritracheal necrotic lymph node/mass with central calcification, PET avid. Status post transbronchial needle aspirate of station 4R yesterday 02/24/2025 History of factor V Leyden deficiency with previous DVT/PE anticoagulated with Eliquis. This was stopped approximately one month ago for unclear reason Diabetes mellitus, type II Diabetic neuropathy Coronary disease with previous stent placement Hypertension Hyperlipidemia Hypothyroidism Anxiety/depression Former smoker Recommendation: Continue present supportive care measures Continue O2 and titrate accordingly CT angiogram of the chest was reviewed, no evidence of pulmonary embolism Continue Lasix 40 mg IV push twice daily Continue antibiotics empirically/Zosyn for now. IV fluid to KVO Venous Doppler of lower extremities noted Patient to go back on her Eliquis as she had strong history for hypercoagulable state. Today she is on Lovenox she is also on Plavix, Follow-up chest x-ray today is pending. Will continue to follow Time with Patient: Less than 30
--- NOTE | 2025-02-26 12:49 | XR ---
EXAMINATION TYPE: XR chest 1V portable DATE OF EXAM: 02/26/2025 12:40 PM COMPARISON: 02/25/2025 CLINICAL INDICATION: Female, 70 years old with history of CHF, TECHNIQUE: XR chest 1V portable view(s) obtained. Exam somewhat limited due to body habitus. FINDINGS: The heart size is mildly prominent. The pulmonary vasculature is mildly prominent. Perihilar and left lower lobe infiltrates are present. Correlate for pulmonary edema. A small left pl eural effusion is present. IMPRESSION: 1. Clinical correlation for congestive heart failure and small left pleural effusion. Follow-up recom mended. [facility], , 02/26/2025 12:47 PM
[2025-02-26] MEDS: SENNOSIDES-DOCUSATE SODIUM 1 EACH TAB PO PRN (13:22)
--- NOTE | 2025-02-26 15:28 | P.PAINPG ---
Objective - Vital Signs Vital signs: Vital Signs Temp 98.9 F 02/26/25 11:24 Pulse 81 02/26/25 11:24 Resp 18 02/26/25 11:24 BP 89/47 02/26/25 11:24 Pulse Ox 95 02/26/25 11:24 FiO2 40 02/25/25 11:13 Intake & Output 02/25/25 02/26/25 02/26/25 18:59 06:59 18:59 Intake Total 600 Output Total 3400 700 1800 Balance -3400 -700 -1200 Weight 113.398 kg 103 kg 103 kg Intake: Oral 600 Output: Urine 3400 700 1800 Other: Voiding Method External Catheter External Catheter External Catheter # Voids 1 - Labs CBC & Chem 7: 02/26/25 08:13 02/26/25 08:13 Labs: Abnormal Lab Results - Last 24 Hours (Table) 02/25/25 02/25/25 02/25/25 Range/Units 06:33 16:40 19:51 WBC (4.50-10.00) 10*3/uL RBC (4.10-5.20) 10*6/uL Hgb (12.0-15.0) g/dL Hct (37.2-46.3) % MCH (27.0-32.0) pg MCHC (32.0-37.0) g/dL Plt Count (140-440) 10*3/uL Lymphocytes # (0.90-5.00) 10*3/uL Monocytes # (0.20-1.00) 10*3/uL Eosinophils # (0.04-0.35) 10*3/uL Immature Plt Fraction (1.1-6.1) % Sodium (137-145) mmol/L Chloride (98-107) mmol/L Carbon Dioxide (22-30) mmol/L BUN (7-17) mg/dL Glucose (74-99) mg/dL POC Glucose (mg/dL) 391 H 380 H (70-110) mg/dL Urine Glucose (UA) 1+ H (Negative) 02/26/25 02/26/25 02/26/25 Range/Units 05:52 08:13 08:13 WBC 3.37 L (4.50-10.00) 10*3/uL RBC 3.62 L (4.10-5.20) 10*6/uL Hgb 9.5 L (12.0-15.0) g/dL Hct 32.3 L (37.2-46.3) % MCH 26.2 L (27.0-32.0) pg MCHC 29.4 L (32.0-37.0) g/dL Plt Count 108 L (140-440) 10*3/uL Lymphocytes # 0.23 L (0.90-5.00) 10*3/uL Monocytes # 0.11 L (0.20-1.00) 10*3/uL Eosinophils # 0.00 L (0.04-0.35) 10*3/uL Immature Plt Fraction 9.5 H (1.1-6.1) % Sodium 132 L (137-145) mmol/L Chloride 93 L (98-107) mmol/L Carbon Dioxide 31 H (22-30) mmol/L BUN 23 H (7-17) mg/dL Glucose 196 H (74-99) mg/dL POC Glucose (mg/dL) 333 H (70-110) mg/dL Urine Glucose (UA) (Negative) Microbiology - Last 24 Hours (Table) 02/25/25 05:03 Blood Culture - Preliminary Blood PQRS Measure Charge Sheet Comment: HISTORY OF PRESENT ILLNESS: A 70 yr old inpatient female as a referral from Dr Mooney presents today w severe L knee pain secondary to DJD for evaluation. Pt states pain level is provoked at 8 /10 in intensity, constant, localized in the L knee, achy in character without shooting pain. Pain is provoked by any movement. Pain is alleviated by medications, repositioning and rest . Past Medical History: Blood Disorder, Cancer, Diabetes Mellitus, Deep Vein Thrombosis (DVT), GERD/Reflux, Hyperlipidemia, Hypertension, Myocardial Infarction (UT), Neurologic Disorder, Osteoarthritis (OA), Pneumonia, Pulmonary Embolus (PE), Thyroid Disorder Additional Past Medical History / Comment(s): See Dr Babcock's H&P. Factor 5 Leiden, hx DVT L leg, hx PE L lung, hx UT X5, palpitations, IDDM type II, neuropathy bilateral legs/feet, lymphedema L leg, charcot syndrome L foot, chronic low back pain, bilateral sciatica, hx bronchitis, anemia, hypothyroid, constipation, hx UTI, IBS, sinus problems, worsening tremors, hx skin cancer removal, hx pelvic fracture, clausterphobia, hx severe vertigo, poor balance and prone to falls. Moderate pericardial effusion wearing oxygen 2-3 L atc Last Myocardial Infarction Date:: January 2020 History of Any Multi-Drug Resistant Organisms: VRE Date of last positivie culture/infection: 08/24/23 MDRO Source:: Urine Past Surgical History: Appendectomy, Cholecystectomy, Heart Catheterization With Stent, Hernia Repair, Hysterectomy, Tonsillectomy Additional Past Surgical History / Comment(s): Bilateral salpingectomy, bilateral oophorectomy, abdominal hernia surgeries, L foot fracture, bilateral cataract removals, lumbar epidural injections. Past Anesthesia/Blood Transfusion Reactions: No Reported Reaction Additional Past Anesthesia/Blood Transfusion Reaction / Comment(s): Pt has received blood in past without reaction. Date of Last Stent Placement:: January 2020 Past Psychological History: Anxiety, Depression, Panic Disorder Smoking Status: Former smoker - Past Family History Mother Family Medical History: COPD Additional Family Medical History / Comment(s): Mother was a smoker. Father Family Medical History: Cancer Additional Family Medical History / Comment(s): Lung cancer. Father was a smoker. Son(s) Family Medical History: Deep Vein Thrombosis (DVT) Medications include Tyl 650mg q6h prn, ASA 81mg QD, Oxycodone IR 5mg TID prn REVIEW OF ORGAN SYSTEMS: CONSTITUTIONAL: No fevers or chills. No recent weight loss. NEUROLOGICAL: + numbness and tingling along the distal extremities. No seizure disorders or headaches. MUSCULOSKELETAL: + pain PSYCHIATRIC: Denies current depression or suicidal thoughts. Physical Examinations : Constitutional : Cooperative , not in acute distress . Neurologic : Cranial nerve II to XII intact. No focal neurological deficits. Psychiatric : alert & oriented x 3. Matching mood & appropriate affect. Judgment & insight intact. Musculoskeletal : Cervical Spine Motor strength in the deltoid and biceps: Normal right side. Normal Left side Motor strength biceps and the wrist extensors: Normal right side . Normal left side Motor strength in the triceps muscle: Normal right side. Normal left side Deep tendon reflexes: Normal at the biceps. Normal at Brachioradialis. Normal at triceps Lhermitte Sign (cervical flexion) positive Vertebral body tenderness to deep palpation over Cervical facet loading test: positive bilaterally Spurling test: positive bilaterally Neck distraction test: positive bilaterally Prabhjot sign: positive bilaterally Shoulders Muscle bulk/ tone/ strength BL Resisted Internal Rotation positive R / positive L Resisted External Rotation positive R / positive L Empty Can Test positive R / positive L Drop Arm Test positive R / positive L Lumbar spine +L knee diffuse patellar TTP w suprapatellar 1+ edema Motor strength lower extremities ,thigh and legs 5/5 Right side , 5/5 Left side Deep tendon reflexes : Normal Knee Jerk. Normal Ankle Jerk Vertebral body tenderness over Wadsworth Test positive Lumbar facet Loading Test: positive Right / positive Left Range of motion of the lumbar spine F lexion 30 degrees, extension 10 degrees Straight Leg Raise test: Left/ Right positive at degrees Drop foot reflex: positive R / positive L Romelia test: positive right / positive left. Severe tenderness over the Sacroiliac joint on the Right / Left sides Gaenslen test: positive bilaterally Sacral spine : Severe tenderness over the Sacroiliac joint: right side / left side Range of motion: Flexion of the lumbar spine <60 degrees Range of motion: Extension of the lumbar spine <20 degrees Gaenslen's Test positive Romelia test: positive right side / left side Thigh Thrust Test Sacral Thrust Test Hip Joint Antalgic walking gait positive Trendelenburg positive R / positive L Imaging: X ray L knee from 02/25/25 reviewed Assessment/ Plan : L Knee DJD Recommendation of CT non contrast. Pt has cardiac stents. All questions answered. I have spent greater than 30 minutes on patient care today. Dr Marcos was available by phone for the evaluation of this patient. The time was used to review the medical records including relevant urine studies and Prescription history (MAPs), review of the available imaging, evaluation and examination of the patient, coordination of care with the medical staff and if applicable referring physicians, as well as creation of the medical record PQRS Narrative: Smoking Status Former smoker Blood Pressure [Left Arm] 89/47 Blood Pressure 104/46 Pain Intensity [None] 0 Pain Intensity 3 Pain Scale Used Numeric (1 - 10) Scale Used see MAR Hx Alcohol Use (MH) No Home Medications: Ambulatory Orders Clopidogrel [Plavix] 75 mg PO DAILY 07/07/19 traZODone HCL [Desyrel] 100 mg PO HS 07/07/19 Insulin Glargine,Hum.rec.anlog [Lantus Solostar Pen] 20 units SQ BID 06/09/21 Insulin Lispro [humaLOG Kwikpen] See Protocol SQ ACHS 09/21/23 Acetaminophen Tab [Tylenol] 650 mg PO Q4H PRN 12/13/24 Atorvastatin [Lipitor] 80 mg PO HS 12/13/24 Ondansetron [Zofran] 4 mg PO Q8H PRN 12/13/24 Sennosides-Docusate Sodium [Senokot-S] 1 tab PO BID 12/13/24 Metoprolol Tartrate [Lopressor] 12.5 mg PO BID@0900,2100 01/03/25 Aspirin 81 mg PO DAILY 01/16/25 Levothyroxine Sodium 200 mcg PO DAILY@0600 01/16/25 Sacubitril/Valsartan [Entresto 24 mg-26 mg Tablet] 0.5 tab PO BID 01/16/25 Spironolactone [Aldactone] 12.5 mg PO BID 01/16/25 Insulin Lispro [humaLOG Kwikpen] 6 unit SQ AC-TID 01/28/25 Midodrine [ProAmatine] 5 mg PO TID-W/MEALS 01/28/25 Escitalopram [Lexapro] 10 mg PO DAILY 30 Days #30 tablet 01/29/25 Furosemide [Lasix] 40 mg PO DAILY #30 tablet 01/29/25 oxyCODONE HCL [OxyIR] 5 mg PO TID PRN #30 tab 01/29/25 ALPRAZolam [Xanax] 1 mg PO TID PRN 02/25/25 Apixaban [Eliquis] 5 mg PO BID 02/25/25 Controlled Substance Measures - Controlled Substance Measures Is patient prescribed a controlled substance at discharge?: No
--- NOTE | 2025-02-26 16:20 | CT ---
EXAMINATION TYPE: CT knee LT wo con CT DLP: 188.4 mGycm, Automated exposure control for dose reduction was used. DATE OF EXAM: 02/26/2025 4:09 PM COMPARISON: Left knee radiographs 02/25/2025 CLINICAL INDICATION:Female, 70 years old with history of L knee pain swelling; PHH, left knee pain and swelling TECHNIQUE: Axial images were obtained of the left knee without the use of IV contrast. Additional co dayanara and sagittal reformatted images and soft tissue and bone window were obtained for review. 3-D r econstruction was created on a separate workstation. FINDINGS: There is no evidence of fracture, subluxation, or dislocation. Joint space narrowing of the medial tibiofemoral and patellofemoral joint spaces with some sclerosis. Small subchondral cystic ch anges involving the lateral aspect of the tibial plateau. Small suprapatellar spur. Minimal suprapate llar joint effusion. Mild subcutaneous edema of the knee. No radiopaque foreign body identified. IMPRESSION: 1. No acute fracture or dislocation. 2. Mild osteoarthritic changes of the knee. 3. Minimal knee joint effusion. [facility], , 02/26/2025 4:17 PM
[2025-02-26 16:37] LABS: Glucose,Whole Blood 148 mg/dL (70-110)
--- NOTE | 2025-02-26 17:10 | P.PN ---
Subjective Progress Note Date: 02/26/25 This is a pleasant 70 years old female with past medical history of multiple medical problems Patient cannot provide information as currently on BiPAP and nonverbal. Information were obtained with the help of the daughter at bedside. Patient has been having shortness of breath recently. She underwent lung biopsy with Dr. Alegria yesterday and results was fine. Infection was suspected but she was only little wheezing when she went home and with no chest pain or dyspnea however overnight she has more work of breathing increased and more labored she was coughing sweating and did a lot of pain so she came to the emergency room. Patient currently nonverbal As per daughter patient Eliquis was held 1 month ago for unknown reason and aspirin and Plavix were off for 5 months for the procedure She had a fever while in the hospital about 102.5. Blood pressure 101/98. She is breathing around 25 to 30/min Ultrasound of the leg is negative for DVT. EKG showing sinus tachycardia at [address]-T changes. Chest x-ray showing multifocal pneumonia reviewed yesterday by myself and agree. Also there is some evidence of worsening pleural effusion. pH is low at 7.25 and pCO2 is elevated 61. Troponin is elevated 0.05 and 0.059. proBNP is high 1330. Patient on Zosyn. Subjective: Patient seen at bedside. No significant overnight events. Patient is able to communicate a bit but mostly but is non comprehendible sounds. Temperature was checked while I was in the room, 102.2. Patient was given Tylenol at that time. Pertinent positives and negatives discussed above, a complete review of systems was preformed and all the other sytems were negative. Vitals Signs Reveiwed. GENERAL: Patient currently on 3 L nasal cannula HEENT: Pupils are round and equally reacting to light. EOMI. No scleral icterus. No conjunctival pallor. Normocephalic, atraumatic. No pharyngeal erythema. No thyromegaly. CARDIOVASCULAR: S1 and S2 present. No murmurs, rubs, or gallops. -PULMONARY: Chest is clear to auscultation, no wheezing , Tachypnea with bilateral crepitation ABDOMEN: Soft, nontender, nondistended, normoactive bowel sounds. No palpable organomegaly. MUSCULOSKELETAL: No joint swelling or deformity. EXTREMITIES: No cyanosis, clubbing, or pedal edema. NEUROLOGICAL: Gross neurological examination did not reveal any focal deficits. SKIN: No rashes. no petechiae. Data Reveiwed Today: Patient Labs: WBC 3.37, hemoglobin 8.5, platelets 208, sodium 132, potassium 4.2, bicarb 31, and glucose 196. Imaging: CT of the left knee showed no acute fracture or dislocation, mild osteoarthritic changes of the knee, and minimal knee joint effusion. Assesment and Plan: #Bilateral multifocal pneumonia: #Sepsis with fever and leukocytosis secondary to above #Acute hypoxic respiratory failure secondary to above - Continue Zosyn 3.375 g IVPB Q8 HR (day 2) - Continue DuoNebs 4 times daily as well as every 2 hours as needed for shortness of breath or wheezing - LR 10 cc/h - Pulmonology on consult, appreciate further recommendations - Currently on 4 L oxygen, continue to wean as tolerated - Blood cultures ordered #Diastolic congestive heart failure with possible exacerbation: - Continue Lasix 40 mg IV twice daily -Cardiology on consult, appreciate further recommendations -Continue Eliquis 5 mg p.o. twice daily, aspirin 81 mg p.o. daily, Lipitor 80 mg p.o. at bedtime, Entresto, and Aldactone 12.5 mg p.o. twice daily - Metoprolol 12.5 mg p.o. twice daily - Telemetry - Daily weights - Fluid restrict to 2 L daily #Left knee pain: - Pain management following, recommended CT knee, results above, appreciate further recommendations - Continued patient's current home medication of oxycodone Chronic #Diabetes mellitus: - Continue Lantus 20 units SQ twice daily, lispro 6 units SQ AC 3 times daily - Sliding scale - Continue to monitor blood sugar here as it continue to be high and may need to make adjustments to long-acting dose #Hypothyroidism: - Continue Synthroid 200 mcg p.o. daily #Mood disorder: - Continue Lexapro 10 mg p.o. daily F LR 10 cc/h E none N heart healthy diet DVT ppx: Eliquis 5 mg twice daily and SCDs GI ppx: None Code Status: Full code Anticipated discharge place: Pending clinical course Anticipated discharge time: Pending clinical course Objective - Vital Signs Vital signs: Vital Signs Temp 98.1 F 02/26/25 04:00 Pulse 84 02/26/25 04:00 Resp 18 02/26/25 04:00 BP 117/66 02/26/25 04:00 Pulse Ox 95 02/26/25 04:00 FiO2 40 02/25/25 11:13 Intake & Output 02/25/25 02/26/25 02/26/25 18:59 06:59 18:59 Output Total 3400 700 1200 Balance -3400 -700 -1200 Weight 113.398 kg 103 kg Output: Urine 3400 700 1200 Other: Voiding Method External Catheter External Catheter # Voids 1 - Labs CBC & Chem 7: 03/02/25 06:56 03/03/25 06:53 Labs: Abnormal Lab Results - Last 24 Hours (Table) 02/25/25 02/25/25 02/25/25 Range/Units 05:03 06:33 08:22 D-Dimer 4.33 H (<0.60) mg/L FEU ABG pH (7.35-7.45) ABG pCO2 (35-45) mmHg ABG pO2 (83-108) mmHg ABG HCO3 (21-25) mmol/L ABG Total CO2 (19-24) mmol/L ABG O2 Saturation (94-97) % Hemoglobin (11.4-16.0) gm/dL POC Glucose (mg/dL) (70-110) mg/dL Troponin I 0.059 H* (0.000-0.034) ng/mL Urine Glucose (UA) 1+ H (Negative) 02/25/25 02/25/25 02/25/25 Range/Units 08:47 09:11 11:49 D-Dimer (<0.60) mg/L FEU ABG pH 7.25 L 7.32 L (7.35-7.45) ABG pCO2 70 H 61 H (35-45) mmHg ABG pO2 33 L* (83-108) mmHg ABG HCO3 30 H 31 H (21-25) mmol/L ABG Total CO2 32 H 33 H (19-24) mmol/L ABG O2 Saturation 58.7 L 97.2 H (94-97) % Hemoglobin 7.7 L 8.0 L (11.4-16.0) gm/dL POC Glucose (mg/dL) 294 H (70-110) mg/dL Troponin I (0.000-0.034) ng/mL Urine Glucose (UA) (Negative) 02/25/25 02/25/25 02/26/25 Range/Units 16:40 19:51 05:52 D-Dimer (<0.60) mg/L FEU ABG pH (7.35-7.45) ABG pCO2 (35-45) mmHg ABG pO2 (83-108) mmHg ABG HCO3 (21-25) mmol/L ABG Total CO2 (19-24) mmol/L ABG O2 Saturation (94-97) % Hemoglobin (11.4-16.0) gm/dL POC Glucose (mg/dL) 391 H 380 H 333 H (70-110) mg/dL Troponin I (0.000-0.034) ng/mL Urine Glucose (UA) (Negative) Assessment and Plan Assessment: Attestation Attestation/ Web Ui Developer Note: Attestation to Progress Note, Participation (I saw and evaluated the patient with the Resident, and I reviewed and discussed the patient with the Resident and agree with the Resident's findings and plans as documented above., management reviewed and discussed), I agree with findings & plan, Provider Signature (JANIA HOLT, SASHA Cabrales Time with Patient: Greater than 30
[2025-02-26 20:01] LABS: Glucose,Whole Blood 193 mg/dL (70-110)
[2025-02-26] MEDS: SODIUM CHLORIDE 0.9% 500 ML 250 ML IV ONE (23:31)
[2025-02-26] MEDS: SODIUM CHLORIDE 0.9% 1,000 ML IV SCH (23:31)
[2025-02-26] MEDS: MIDODRINE 5 MG TAB PO STA (23:33)
[2025-02-27 06:23] LABS: Glucose,Whole Blood 179 mg/dL (70-110)
[2025-02-27 08:10] LABS: Basophils # (A) 0.02 10*3/uL (0.00-0.10); Basophils % (A) 0.7 %; Eosinophils # (A) 0.01 10*3/uL (0.04-0.35); Eosinophils % (A) 0.4 %; HCT 34.2 % (37.2-46.3); HGB 10.2 g/dL (12.0-15.0); Immature Platelet Fraction 7.7 % (1.1-6.1); Lymphocytes # (A) 0.26 10*3/uL (0.90-5.00); Lymphocytes % (A) 9.6 %; MCH 26.3 pg (27.0-32.0); MCHC 29.8 g/dL (32.0-37.0); MCV 88.1 fL (80.0-97.0); Monocytes # (A) 0.11 10*3/uL (0.20-1.00); Monocytes % (A) 4.0 %; Neutrophils # (A) 2.30 10*3/uL (1.80-7.70); Neutrophils % (A) 84.6 %; Platelet Count 115 10*3/uL (140-440); RBC 3.88 10*6/uL (4.10-5.20); RDW 22.1 % (11.5-14.5); WBC 2.72 10*3/uL (4.50-10.00)
[2025-02-27 08:27] LABS: African American GFR (CKD) 53 (>60 ml/min/1.73 sqM); Anion Gap 9 mmol/L; Blood Urea Nitrogen 33 mg/dL (7-17); Calcium 7.7 mg/dL (8.4-10.2); Carbon Dioxide 26 mmol/L (22-30); Chloride 96 mmol/L (98-107); Glucose 179 mg/dL (74-99); Non-African American GFR(CKD) 46 (>60 ml/min/1.73 sqM); Potassium 3.4 mmol/L (3.5-5.1); Sodium 131 mmol/L (137-145)
[2025-02-27] MEDS ORDERED: Potassium Replacement Protocol 1 EACH MISC MISCELLANE PRN (08:42)
[2025-02-27 09:17] LABS: Anisocytosis (M) Present
[2025-02-27] MEDS: POTASSIUM CHLORIDE ER 20 MEQ TAB.ER PO STA (09:19)
[2025-02-27 11:20] LABS: Glucose,Whole Blood 158 mg/dL (70-110)
--- NOTE | 2025-02-27 12:41 | P.PN ---
Subjective HISTORY OF PRESENT ILLNESS: This is a 70-year-old female with a past medical history significant for coronary artery disease, pericardial effusion, hypertension, hyperlipidemia, GI bleed, and diabetes. Patient follows in the office with Dr. Marquez. We have been asked to see the patient in consultation for elevated troponins. Patient examined at the bedside. Patient presented to the hospital for chief complaint of shortness of breath. She also reports having a cough with sputum production. Patient was noted to be febrile upon admission. She remains febrile this morning with a temperature of 102.5. She currently denies any chest pain or pressure. DIAGNOSTICS: - EKG reveals sinus tachycardia with no signs of acute ischemia. - Chest xray worsening bilateral airspace opacities concerning for multifocal pneumonia and/or pulmonary edema. Worsening small pleural effusions. - Chest CTA: Negative for pulmonary embolism. Soft tissue mass correlating with PET scan within the pretracheal space of the mediastinum. - Venous Doppler: Negative for DVT bilaterally - Laboratory data: proBNP 1330. Troponin 0.039. 0.059. - Current home cardiac medications include Eliquis 5 mg twice a day, Aldactone 12.5 mg twice a day, Entresto 24-26 mg twice a day, midodrine 5 mg 3 times daily, Toprol tartrate 12.5 mg twice a day, Lasix 40 mg daily, Plavix 75 mg daily, Lipitor 80 mg at night, aspirin 81 mg daily. - Most recent echocardiogram obtained in January 2025 revealed ejection fraction 55 to 60%, trace pericardial effusion - Cardiac catheterization history: October 2024 with stenting of the mid proximal and ostial right RCA with 3 drug-eluting stents 02/27/2025 Patient examined this morning at the bedside. She currently denies chest pain or pressure. Reports mild SOB. Her IV lasix was increased by pulmonary medicine. She became hypotensive yesterday evening PHYSICAL EXAM: VITAL SIGNS: Reviewed. GENERAL: Well-developed in no acute distress. HEENT: Head is normocephalic. Pupils are equal, round. Sclerae anicteric. Mucous membranes of the mouth are moist. Neck supple. No JVD or thyromegaly LUNGS: Respirations even and unlabored. Lungs diminished bilaterally with coughing noted HEART: Regular rate and rhythm. S1 and S2 heard. ABDOMEN: Soft. Nondistended. Nontender. EXTREMITIES: Normal range of motion. No clubbing or cyanosis. Peripheral pulses intact. No lower extremity edema NEUROLOGIC: Awake and alert. Oriented x 3. ASSESSMENT: Shortness of breath Mild acute on chronic heart failure with preserved EF Bilateral pleural effusions Pneumonia Fever Elevated troponins, flat, type II MS secondary to oxygen supply and demand mismatch, no evidence of acute coronary syndrome Right peritracheal necrotic lymph node/mass with central calcification, status post biopsy Acute hypoxic respiratory failure Coronary artery disease with previous stenting Hypertension Hyperlipidemia History of GI bleeding History of factor V [place] with history of DVT and PE Diabetes PLAN: An acute coronary event has been ruled out No need to repeat echocardiogram as this was performed in January 2025 Continue IV diuretics per pulmonary. Dose was increased to q8 hours. Discontinue IV fluids Increase Midodine to 10mg Continue additional cardiac medications Continue to monitor blood pressure Further recommendations pending patient course Nurse practitioner note has been reviewed by physician. Signing provider agrees with the documented findings, assessment, and plan of care documented by MACHINE ADJUSTER HELPER as a scribe. Objective - Vital Signs Vital signs: Vital Signs Temp 98.1 F 02/27/25 12:00 Pulse 80 02/27/25 12:00 Resp 20 02/27/25 12:00 BP 94/57 02/27/25 12:00 Pulse Ox 95 02/27/25 12:00 FiO2 40 02/25/25 11:13 Intake & Output 02/26/25 02/27/25 02/27/25 18:59 06:59 18:59 Intake Total 840 240 Output Total 3100 900 300 Balance -2260 -900 -60 Weight 103 kg 100 kg Intake: Oral 840 240 Output: Urine 3100 900 300 Other: Voiding Method External Catheter External Catheter External Catheter # Voids 1 # Bowel Movements 1 - Labs CBC & Chem 7: 02/27/25 07:54 02/27/25 07:54 Labs: Abnormal Lab Results - Last 24 Hours (Table) 02/26/25 02/26/25 02/26/25 Range/Units 08:16 16:35 19:57 WBC (4.50-10.00) 10*3/uL RBC (4.10-5.20) 10*6/uL Hgb (12.0-15.0) g/dL Hct (37.2-46.3) % MCH (27.0-32.0) pg MCHC (32.0-37.0) g/dL Plt Count (140-440) 10*3/uL Lymphocytes # (0.90-5.00) 10*3/uL Monocytes # (0.20-1.00) 10*3/uL Eosinophils # (0.04-0.35) 10*3/uL Immature Plt Fraction (1.1-6.1) % Sodium (137-145) mmol/L Potassium (3.5-5.1) mmol/L Chloride (98-107) mmol/L BUN (7-17) mg/dL Creatinine (0.52-1.04) mg/dL Glucose (74-99) mg/dL POC Glucose (mg/dL) 148 H 193 H (70-110) mg/dL Calcium (8.4-10.2) mg/dL Procalcitonin 0.54 H (0.02-0.50) ng/mL 02/27/25 02/27/25/ Range/Units 06:21 07:54 07:54 WBC 2.72 L (4.50-10.00) 10*3/uL RBC 3.88 L (4.10-5.20) 10*6/uL Hgb 10.2 L (12.0-15.0) g/dL Hct 34.2 L (37.2-46.3) % MCH 26.3 L (27.0-32.0) pg MCHC 29.8 L (32.0-37.0) g/dL Plt Count 115 L (140-440) 10*3/uL Lymphocytes # 0.26 L (0.90-5.00) 10*3/uL Monocytes # 0.11 L (0.20-1.00) 10*3/uL Eosinophils # 0.01 L (0.04-0.35) 10*3/uL Immature Plt Fraction 7.7 H (1.1-6.1) % Sodium 131 L (137-145) mmol/L Potassium 3.4 L (3.5-5.1) mmol/L Chloride 96 L (98-107) mmol/L BUN 33 H (7-17) mg/dL Creatinine 1.19 H (0.52-1.04) mg/dL Glucose 179 H (74-99) mg/dL POC Glucose (mg/dL) 179 H (70-110) mg/dL Calcium 7.7 L (8.4-10.2) mg/dL Procalcitonin (0.02-0.50) ng/mL 02/27/25 Range/Units 11:19 WBC (4.50-10.00) 10*3/uL RBC (4.10-5.20) 10*6/uL Hgb (12.0-15.0) g/dL Hct (37.2-46.3) % MCH (27.0-32.0) pg MCHC (32.0-37.0) g/dL Plt Count (140-440) 10*3/uL Lymphocytes # (0.90-5.00) 10*3/uL Monocytes # (0.20-1.00) 10*3/uL Eosinophils # (0.04-0.35) 10*3/uL Immature Plt Fraction (1.1-6.1) % Sodium (137-145) mmol/L Potassium (3.5-5.1) mmol/L Chloride (98-107) mmol/L BUN (7-17) mg/dL Creatinine (0.52-1.04) mg/dL Glucose (74-99) mg/dL POC Glucose (mg/dL) 158 H (70-110) mg/dL Calcium (8.4-10.2) mg/dL Procalcitonin (0.02-0.50) ng/mL Microbiology - Last 24 Hours (Table) 02/25/25 05:03 Blood Culture - Preliminary Blood
--- NOTE | 2025-02-27 14:41 | P.PN ---
Subjective Progress Note Date: 02/27/25 Principal diagnosis: Acute on chronic hypoxic and hypercapnic respiratory failure, multifactorial suspect acute on chronic diastolic congestive heart failure with compressive atelectasis, possible underlying pneumonia. This is a pleasant 70-year-old female patient with a history of hyperlipidemia, hypothyroidism, hypertension, DVT/PE anticoagulated with Eliquis however this h ad been stopped approximately 1 month ago. She was also recently found to have a right paratracheal necrotic lymph node/mass with central calcification that was PET avid. She was brought in electively yesterday for a transbronchial needle aspirate of station 4R. She tolerated the procedure well and was discharged to home. Approximately 4:30 this morning she woke up with acute shortness of breath and was brought to the emergency room by EMS. Chest x-ray revealed worsening bilateral airspace opacities concerning for multifocal pneumonia and/or pulmonary edema with worsening small pleural effusions. She was placed on BiPAP 16/7 and 50% FiO2. Arterial blood gases revealed a PO2 of 87, PCO2 of 61 and a pH of 7.32. White count 4.3. Hemoglobin 10.2. Platelets 107. INR 1.0. Sodium 139. Potassium 5.1. Bicarb 28. BUN 13. Creatinine 0.73. Glucose 209. Troponin 0.039, 0.059. Pro BNP 1330. She received ceftriaxone. She is seen today in consultation in the emergency department. She is currently resting on the stretcher. Awake and alert. Her daughter is at the bedside providing most of the information. She is maintaining O2 saturations in the mid 90s. She is afebrile. Hemodynamically stable. Slightly tachypneic. Patient was seen today on 02/26/2025, she seems to be doing much better today, breathing a lot easier. Patient is definitely more awake, does not seem to be in any distress, down to 3 L nasal cannula and O2 saturation 95%. She had a low-grade temp of 99.7 last night. Today's temp is 98.9. WBC count is 3.37 hemoglobin is 9.5 electrolytes are normal bicarb is 31 BUN is 23 creatinine 0.92. Chest x-ray this morning is pending. Again clinically I have noted that the patient is much better today compared to her initial presentation to the ER yesterday. Patient was seen today on 02/27/2025, patient is having more shortness of breath today, chest x-ray is showing worsening interstitial edema and pleural effusions hence her Lasix was increased today. Patient has been on along on Lasix 40 mg twice daily and on Aldactone 12.5 mg twice daily. Patient is on 3 L nasal cannula, O2 sats is 95%, blood pressure is 94/57 mean of 69. Patient is leukope frankie with WBC count of 2.7 hemoglobin of 10.2, basic metabolic profile was noted, potassium is 3.4 BUN is 33 creatinine 1.19. Objective - Vital Signs Vital signs: Vital Signs Temp 98.1 F 02/27/25 12:00 Pulse 80 02/27/25 12:00 Resp 20 02/27/25 12:00 BP 94/57 02/27/25 12:00 Pulse Ox 95 02/27/25 12:00 FiO2 40 02/25/25 11:13 Intake & Output 02/26/25 02/27/25 02/27/25 18:59 06:59 18:59 Intake Total 840 290 Output Total 3100 900 300 Balance -2260 -900 -10 Weight 103 kg 100 kg Intake: Oral 840 290 Output: Urine 3100 900 300 Other: Voiding Method External Catheter External Catheter External Catheter # Voids 1 # Bowel Movements 1 - Exam GENERAL EXAM: Reveals 70-year-old female in no distress on 3 L nasal cannula, O2 sat is 95% HEAD: Normocephalic. EYES: Normal reaction of pupils, equal size. NOSE: Clear with pink turbinates. THROAT: No erythema or exudates. NECK: No masses, no JVD. CHEST: No chest wall deformity. LUNGS: Diminished breath sound bilaterally no crackles rhonchi or wheezes CVS: S1 and S2 normal with no audible murmur, regular rhythm. ABDOMEN: No hepatosplenomegaly, normal bowel sounds, no guarding or rigidity. SKIN: No rashes CENTRAL NERVOUS SYSTEM: Alert and oriented x 3 no gross focal neurologic deficit EXTREMITIES: Lymphedema of the left lower extremity. Charcot syndrome left foot. No clubbing, no cyanosis. Peripheral pulses are intact. - Labs CBC & Chem 7: 02/27/25 07:54 02/27/25 07:54 Labs: Abnormal Lab Results - Last 24 Hours (Table) 02/26/25 02/26/25 02/26/25 Range/Units 08:16 16:35 19:57 WBC (4.50-10.00) 10*3/uL RBC (4.10-5.20) 10*6/uL Hgb (12.0-15.0) g/dL Hct (37.2-46.3) % MCH (27.0-32.0) pg MCHC (32.0-37.0) g/dL Plt Count (140-440) 10*3/uL Lymphocytes # (0.90-5.00) 10*3/uL Monocytes # (0.20-1.00) 10*3/uL Eosinophils # (0.04-0.35) 10*3/uL Immature Plt Fraction (1.1-6.1) % Sodium (137-145) mmol/L Potassium (3.5-5.1) mmol/L Chloride (98-107) mmol/L BUN (7-17) mg/dL Creatinine (0.52-1.04) mg/dL Glucose (74-99) mg/dL POC Glucose (mg/dL) 148 H 193 H (70-110) mg/dL Calcium (8.4-10.2) mg/dL Procalcitonin 0.54 H (0.02-0.50) ng/mL 02/27/25 02/27/25 02/27/25 Range/Units 06:21 07:54 07:54 WBC 2.72 L (4.50-10.00) 10*3/uL RBC 3.88 L (4.10-5.20) 10*6/uL Hgb 10.2 L (12.0-15.0) g/dL Hct 34.2 L (37.2-46.3) % MCH 26.3 L (27.0-32.0) pg MCHC 29.8 L (32.0-37.0) g/dL Plt Count 115 L (140-440) 10*3/uL Lymphocytes # 0.26 L (0.90-5.00) 10*3/uL Monocytes # 0.11 L (0.20-1.00) 10*3/uL Eosinophils # 0.01 L (0.04-0.35) 10*3/uL Immature Plt Fraction 7.7 H (1.1-6.1) % Sodium 131 L (137-145) mmol/L Potassium 3.4 L (3.5-5.1) mmol/L Chloride 96 L (98-107) mmol/L BUN 33 H (7-17) mg/dL Creatinine 1.19 H (0.52-1.04) mg/dL Glucose 179 H (74-99) mg/dL POC Glucose (mg/dL) 179 H (70-110) mg/dL Calcium 7.7 L (8.4-10.2) mg/dL Procalcitonin (0.02-0.50) ng/mL 02/27/25 Range/Units 11:19 WBC (4.50-10.00) 10*3/uL RBC (4.10-5.20) 10*6/uL Hgb (12.0-15.0) g/dL Hct (37.2-46.3) % MCH (27.0-32.0) pg MCHC (32.0-37.0) g/dL Plt Count (140-440) 10*3/uL Lymphocytes # (0.90-5.00) 10*3/uL Monocytes # (0.20-1.00) 10*3/uL Eosinophils # (0.04-0.35) 10*3/uL Immature Plt Fraction (1.1-6.1) % Sodium (137-145) mmol/L Potassium (3.5-5.1) mmol/L Chloride (98-107) mmol/L BUN (7-17) mg/dL Creatinine (0.52-1.04) mg/dL Glucose (74-99) mg/dL POC Glucose (mg/dL) 158 H (70-110) mg/dL Calcium (8.4-10.2) mg/dL Procalcitonin (0.02-0.50) ng/mL Microbiology - Last 24 Hours (Table) 02/25/25 05:03 Blood Culture - Preliminary Blood Assessment and Plan Assessment: Impression: Acute on chronic hypoxic and hypercapnic respiratory failure, multifactorial. Suspect acute on chronic diastolic congestive heart failure and possible healthcare acquired pneumonia, as well as underlying COPD Troponin leak Right peritracheal necrotic lymph node/mass with central calcification, PET avid. Status post transbronchial needle aspirate of station 4R yesterday 7/22/2 025 History of factor V Leyden deficiency with previous DVT/PE anticoagulated with Eliquis. This was stopped approximately one month ago for unclear reason Diabetes mellitus, type II Diabetic neuropathy Coronary disease with previous stent placement Hypertension Hyperlipidemia Hypothyroidism Anxiety/depression Former smoker Recommendation: Increase Lasix to 40 mg IV push 3 times daily, continue Aldactone, Continue present supportive care measures Continue O2 and titrate accordingly CT angiogram of the chest was reviewed, no evidence of pulmonary embolism Continue antibiotics empirically/Zosyn for now. IV fluid to KVO Patient is back on Eliquis Will continue to follow Time with Patient: Less than 30
--- NOTE | 2025-02-27 14:43 | XR ---
EXAMINATION TYPE: XR chest 1V DATE OF EXAM: 02/27/2025 2:26 PM COMPARISON: 02/27/2020 CLINICAL INDICATION: Female, 70 years old with history of pna, TECHNIQUE: XR chest 1V view(s) obtained. FINDINGS: The heart size is mildly prominent. The pulmonary vasculature is prominent. Diffuse increased lung markings are present. There is silhouetting left diaphragm. Correlation chest the heart failure is recommended. IMPRESSION: 1. Clinical correlation for congestive heart failure [facility], , 02/27/2025 2:41 PM
[2025-02-27] MEDS: FUROSEMIDE 10 MG/ML 4 ML VIAL IV SCH (15:19)
--- NOTE | 2025-02-27 15:28 | P.PN ---
Subjective Progress Note Date: 02/27/25 This is a pleasant 70 years old female with past medical history of multiple medical problems Patient cannot provide information as currently on BiPAP and nonverbal. Information were obtained with the help of the daughter at bedside. Patient has been having shortness of breath recently. She underwent lung biopsy with Dr. Alegria yesterday and results was fine. Infection was suspected but she was only little wheezing when she went home and with no chest pain or dyspnea however overnight she has more work of breathing increased and more labored she was coughing sweating and did a lot of pain so she came to the emergency room. Patient currently nonverbal As per daughter patient Eliquis was held 1 month ago for unknown reason and aspirin and Plavix were off for 5 months for the procedure She had a fever while in the hospital about 102.5. Blood pressure 101/98. She is breathing around 25 to 30/min Ultrasound of the leg is negative for DVT. EKG showing sinus tachycardia at [address]-T changes. Chest x-ray showing multifocal pneumonia reviewed yesterday by myself and agree. Also there is some evidence of worsening pleural effusion. pH is low at 7.25 and pCO2 is elevated 61. Troponin is elevated 0.05 and 0.059. proBNP is high 1330. Patient on Zosyn. Subjective: 02/26/2025: Patient seen at bedside. No significant overnight events. Patient is able to communicate a bit but mostly but is non comprehendible sounds. Temperature was checked while I was in the room, 102.2. Patient was given Tylenol at that time. 02/27/2025: Patient seen at bedside. Overnight approximately 4 AM patient spiked a fever of 101.5 and was tachycardic at that time with a HR of 101. Tylenol was given and next fever taken 2 hours later was 98.2. Patient's blood pressure has also been on the softer side most recent 95/62. Patient continues on 3 L of nasal cannula, no new complaints or concerns at this time. Pertinent positives and negatives discussed above, a complete review of systems was preformed and all the other sytems were negative. Vitals Signs Reveiwed. GENERAL: Patient currently on 3 L nasal cannula HEENT: Pupils are round and equally reacting to light. EOMI. No scleral icterus. No conjunctival pallor. Normocephalic, atraumatic. No pharyngeal erythema. No thyromegaly. CARDIOVASCULAR: S1 and S2 present. No murmurs, rubs, or gallops. -PULMONARY: Chest is clear to auscultation, no wheezing , Tachypnea with bilateral crepitation ABDOMEN: Soft, nontender, nondistended, normoactive bowel sounds. No palpable organomegaly. MUSCULOSKELETAL: No joint swelling or deformity. EXTREMITIES: No cyanosis, clubbing, or pedal edema. NEUROLOGICAL: Gross neurological examination did not reveal any focal deficits. SKIN: No rashes. no petechiae. Data Reveiwed Today: Patient Labs: WBC 2.72, hemoglobin 10.2, platelets 115, neutrophils 2.3, sodium 131, potassium 3.4, BUN 33, creatinine 1.19, glucose 179, and calcium 7.7. Imaging: Chest x-ray showed improvement in consolidations compared to previous from 2 days ago Assesment and Plan: #Bilateral multifocal pneumonia: #Sepsis with fever and leukocytosis secondary to above #Acute hypoxic respiratory failure secondary to above - Continue Zosyn 3.375 g IVPB Q8 HR (day 3) - Continue DuoNebs 4 times daily as well as every 2 hours as needed for shortness of breath or wheezing - Discontinue fluids - Pulmonology on consult, appreciate further recommendations - Currently on 3 L oxygen, this is the patient's home oxygen - Preliminary blood cultures showed no growth after 48 hours #Diastolic congestive heart failure with possible exacerbation: - Continue Lasix 40 mg IV twice daily, patient's creatinine starting to increase will continue to monitor this as we continue diuresis -Cardiology on consult, appreciate further recommendations -Continue Eliquis 5 mg p.o. twice daily, aspirin 81 mg p.o. daily, Lipitor 80 mg p.o. at bedtime, Entresto, and Aldactone 12.5 mg p.o. twice daily - Metoprolol 12.5 mg p.o. twice daily - Telemetry - Daily weights - Fluid restrict to 2 L daily #Hypotension: - Increase to home dose of midodrine to 10 mg p.o. 3 times daily with meals - Continue to monitor vitals #Hypokalemia: - Potassium found to be at 3.4 today - Started potassium replacement protocol - Continue to monitor BMP #Left knee pain: - Pain management following, recommended CT knee, results above, appreciate further recommendations - Continued patient's current home medication of oxycodone Chronic #Diabetes mellitus: - Continue Lantus 20 units SQ twice daily, lispro 6 units SQ AC 3 times daily - Sliding scale - Continue to monitor blood sugar here as it continue to be high and may need to make adjustments to long-acting dose #Hypothyroidism: - Continue Synthroid 200 mcg p.o. daily #Mood disorder: - Continue Lexapro 10 mg p.o. daily #Chronic rectal pain: - Continued patient's home Robaxin - No bloody stools at this time, will reevaluate if pain becomes unbearable or there are bloody bowel movements or we see a change in hemoglobin F none E none N heart healthy diet DVT ppx: Eliquis 5 mg twice daily and SCDs GI ppx: None Code Status: Full code Anticipated discharge place: Pending clinical course Anticipated discharge time: Pending clinical course Objective - Vital Signs Vital signs: Vital Signs Temp 98.2 F 02/27/25 06:00 Pulse 101 H 02/27/25 04:00 Resp 18 02/27/25 04:00 BP 95/62 02/27/25 06:28 Pulse Ox 97 02/27/25 04:00 FiO2 40 02/25/25 11:13 Intake & Output 02/26/25 02/27/25 02/27/25 18:59 06:59 18:59 Intake Total 840 Output Total 3100 900 Balance -2260 -900 Weight 103 kg 100 kg Intake: Oral 840 Output: Urine 3100 900 Other: Voiding Method External Catheter External Catheter # Voids 1 # Bowel Movements 1 - Labs CBC & Chem 7: 03/02/25 06:56 03/03/25 06:53 Labs: Abnormal Lab Results - Last 24 Hours (Table) 02/26/25 02/26/25 02/26/25 Range/Units 08:13 08:13 08:16 WBC 3.37 L (4.50-10.00) 10*3/uL RBC 3.62 L (4.10-5.20) 10*6/uL Hgb 9.5 L (12.0-15.0) g/dL Hct 32.3 L (37.2-46.3) % MCH 26.2 L (27.0-32.0) pg MCHC 29.4 L (32.0-37.0) g/dL Plt Count 108 L (140-440) 10*3/uL Lymphocytes # 0.23 L (0.90-5.00) 10*3/uL Monocytes # 0.11 L (0.20-1.00) 10*3/uL Eosinophils # 0.00 L (0.04-0.35) 10*3/uL Immature Plt Fraction 9.5 H (1.1-6.1) % Sodium 132 L (137-145) mmol/L Chloride 93 L (98-107) mmol/L Carbon Dioxide 31 H (22-30) mmol/L BUN 23 H (7-17) mg/dL Glucose 196 H (74-99) mg/dL POC Glucose (mg/dL) (70-110) mg/dL Procalcitonin 0.54 H (0.02-0.50) ng/mL 02/26/25 02/26/25 02/27/25 Range/Units 16:35 19:57 06:21 WBC (4.50-10.00) 10*3/uL RBC (4.10-5.20) 10*6/uL Hgb (12.0-15.0) g/dL Hct (37.2-46.3) % MCH (27.0-32.0) pg MCHC (32.0-37.0) g/dL Plt Count (140-440) 10*3/uL Lymphocytes # (0.90-5.00) 10*3/uL Monocytes # (0.20-1.00) 10*3/uL Eosinophils # (0.04-0.35) 10*3/uL Immature Plt Fraction (1.1-6.1) % Sodium (137-145) mmol/L Chloride (98-107) mmol/L Carbon Dioxide (22-30) mmol/L BUN (7-17) mg/dL Glucose (74-99) mg/dL POC Glucose (mg/dL) 148 H 193 H 179 H (70-110) mg/dL Procalcitonin (0.02-0.50) ng/mL Microbiology - Last 24 Hours (Table) 02/25/25 05:03 Blood Culture - Preliminary Blood Assessment and Plan Assessment: Attestation Attestation/ Care Technician Note: Attestation to Progress Note, Participation (I saw and evaluated the patient with the Resident, and I reviewed and discussed the patient with the Resident and agree with the Resident's findings and plans as documented above., management reviewed and discussed), I agree with findings & plan, Provider Signature (JANIA HOLT, SASHA Caldwell. Time with Patient: Greater than 30
[2025-02-27 16:26] LABS: Glucose,Whole Blood 95 mg/dL (70-110)
[2025-02-27] MEDS: MIDODRINE 5 MG TAB PO SCH (16:36)
[2025-02-27 20:13] LABS: Glucose,Whole Blood 104 mg/dL (70-110)
[2025-02-28 06:15] LABS: Glucose,Whole Blood 99 mg/dL (70-110)
[2025-02-28 07:31] LABS: Basophils # (A) 0.01 10*3/uL (0.00-0.10); Basophils % (A) 0.4 %; Eosinophils # (A) 0.01 10*3/uL (0.04-0.35); Eosinophils % (A) 0.4 %; HCT 33.7 % (37.2-46.3); HGB 10.3 g/dL (12.0-15.0); Lymphocytes # (A) 0.65 10*3/uL (0.90-5.00); Lymphocytes % (A) 23.2 %; MCH 26.1 pg (27.0-32.0); MCHC 30.6 g/dL (32.0-37.0); MCV 85.5 fL (80.0-97.0); Monocytes # (A) 0.27 10*3/uL (0.20-1.00); Monocytes % (A) 9.6 %; Neutrophils # (A) 1.85 10*3/uL (1.80-7.70); Neutrophils % (A) 66.0 %; Platelet Count 109 10*3/uL (140-440); RBC 3.94 10*6/uL (4.10-5.20); RDW 22.0 % (11.5-14.5); WBC 2.80 10*3/uL (4.50-10.00)
[2025-02-28 07:44] LABS: African American GFR (CKD) 42 (>60 ml/min/1.73 sqM); Anion Gap 6 mmol/L; Blood Urea Nitrogen 42 mg/dL (7-17); Calcium 7.5 mg/dL (8.4-10.2); Carbon Dioxide 31 mmol/L (22-30); Chloride 97 mmol/L (98-107); Glucose 93 mg/dL (74-99); Non-African American GFR(CKD) 36 (>60 ml/min/1.73 sqM); Potassium 4.4 mmol/L (3.5-5.1); Sodium 134 mmol/L (137-145)
--- NOTE | 2025-02-28 11:01 | XR ---
EXAMINATION TYPE: XR chest 1V portable DATE OF EXAM: 02/28/2025 10:51 AM COMPARISON: 02/27/2025 CLINICAL INDICATION: Female, 70 years old with history of CHF, TECHNIQUE: XR chest 1V portable views of the chest are obtained. FINDINGS: Demonstrated are scattered senescent parenchymal change. There is no evidence for focal infiltrate. There is pulmonary venous congestion without overt failure . The heart is stable. Hilar and mediastinal structures are within normal limits. Degenerative changes are seen of the dorsal spine. IMPRESSION: 1. There is pulmonary venous congestion without overt failure. [facility], , 02/28/2025 10:59 AM
[2025-02-28 11:35] LABS: Glucose,Whole Blood 68 mg/dL (70-110)
--- NOTE | 2025-02-28 11:46 | P.PN ---
Subjective Progress Note Date: 02/28/25 Principal diagnosis: Acute on chronic hypoxic and hypercapnic respiratory failure, multifactorial suspect acute on chronic diastolic congestive heart failure with compressive atelectasis, possible underlying pneumonia. This is a pleasant 70-year-old female patient with a history of hyperlipidemia, hypothyroidism, hypertension, DVT/PE anticoagulated with Eliquis however this h ad been stopped approximately 1 month ago. She was also recently found to have a right paratracheal necrotic lymph node/mass with central calcification that was PET avid. She was brought in electively yesterday for a transbronchial needle aspirate of station 4R. She tolerated the procedure well and was discharged to home. Approximately 4:30 this morning she woke up with acute shortness of breath and was brought to the emergency room by EMS. Chest x-ray revealed worsening bilateral airspace opacities concerning for multifocal pneumonia and/or pulmonary edema with worsening small pleural effusions. She was placed on BiPAP 16/7 and 50% FiO2. Arterial blood gases revealed a PO2 of 87, PCO2 of 61 and a pH of 7.32. White count 4.3. Hemoglobin 10.2. Platelets 107. INR 1.0. Sodium 139. Potassium 5.1. Bicarb 28. BUN 13. Creatinine 0.73. Glucose 209. Troponin 0.039, 0.059. Pro BNP 1330. She received ceftriaxone. She is seen today in consultation in the emergency department. She is currently resting on the stretcher. Awake and alert. Her daughter is at the bedside providing most of the information. She is maintaining O2 saturations in the mid 90s. She is afebrile. Hemodynamically stable. Slightly tachypneic. Patient was seen today on 02/26/2025, she seems to be doing much better today, breathing a lot easier. Patient is definitely more awake, does not seem to be in any distress, down to 3 L nasal cannula and O2 saturation 95%. She had a low-grade temp of 99.7 last night. Today's temp is 98.9. WBC count is 3.37 hemoglobin is 9.5 electrolytes are normal bicarb is 31 BUN is 23 creatinine 0.92. Chest x-ray this morning is pending. Again clinically I have noted that the patient is much better today compared to her initial presentation to the ER yesterday. Patient was seen today on 02/27/2025, patient is having more shortness of breath today, chest x-ray is showing worsening interstitial edema and pleural effusions hence her Lasix was increased today. Patient has been on along on Lasix 40 mg twice daily and on Aldactone 12.5 mg twice daily. Patient is on 3 L nasal cannula, O2 sats is 95%, blood pressure is 94/57 mean of 69. Patient is leukope frankie with WBC count of 2.7 hemoglobin of 10.2, basic metabolic profile was noted, potassium is 3.4 BUN is 33 creatinine 1.19. Patient was seen today on 02/28/2025, patient is doing a bit better today from the pulmonary perspective, less shortness of breath, no cough no wheezing, she is complaining of sore bottom/chronically. Patient is now off Lasix because she had worsening renal status, chest x-ray did show improvement however she still has some mild pulmonary vascular congestion but no evidence of overt heart failure. Will continue to hold the Lasix for now, but most likely has to be restarted again in the next 24 hours if her renal functioning improves and if her chest x-ray shows worsening heart failure. For the time being it is reasonable to keep Lasix on hold she is receiving Aldactone. WBC count today is 2.8 hemoglobin 10.3 electrolytes are normal BUN is 42 creatinine 1.46, baseline creatinine on admission was 0.73. Again we will continue to hold Lasix for now. And will continue to monitor her renal status. At the same time if the patient develops worsening heart failure she needs to go back on more diuretics. Objective - Vital Signs Vital signs: Vital Signs Temp 97.9 F 02/28/25 08:00 Pulse 88 02/28/25 08:00 Resp 16 02/28/25 08:00 BP 106/63 02/28/25 08:00 Pulse Ox 95 02/28/25 08:39 FiO2 40 02/25/25 11:13 Intake & Output 02/27/25 02/28/25 02/28/25 18:59 06:59 18:59 Intake Total 530 Output Total 500 Balance 30 Weight 96.5 kg Intake: Oral 530 Output: Urine 500 Other: Voiding Method External Catheter External Catheter # Voids 1 # Bowel Movements 1 1 - Exam GENERAL EXAM: Reveals 70-year-old female in no distress on 2 L nasal cannula with O2 sat of 95% HEAD: Normocephalic. EYES: Normal reaction of pupils, equal size. NOSE: Clear with pink turbinates. THROAT: No erythema or exudates. NECK: No masses, no JVD. CHEST: No chest wall deformity. LUNGS: Diminished breath sound bilaterally no crackles rhonchi or wheezes CVS: S1 and S2 normal with no audible murmur, regular rhythm. ABDOMEN: No hepatosplenomegaly, normal bowel sounds, no guarding or rigidity. SKIN: No rashes CENTRAL NERVOUS SYSTEM: Alert and oriented x 3 no gross focal neurologic deficit EXTREMITIES: Lymphedema of the left lower extremity. Charcot syndrome left foot. No clubbing, no cyanosis. Peripheral pulses are intact. - Labs CBC & Chem 7: 02/28/25 05:54 02/28/25 05:54 Labs: Abnormal Lab Results - Last 24 Hours (Table) 02/28/25 02/28/25 02/28/25 Range/Units 05:54 05:54 11:33 WBC 2.80 L (4.50-10.00) 10*3/uL RBC 3.94 L (4.10-5.20) 10*6/uL Hgb 10.3 L (12.0-15.0) g/dL Hct 33.7 L (37.2-46.3) % MCH 26.1 L (27.0-32.0) pg MCHC 30.6 L (32.0-37.0) g/dL Plt Count 109 L (140-440) 10*3/uL Lymphocytes # 0.65 L (0.90-5.00) 10*3/uL Eosinophils # 0.01 L (0.04-0.35) 10*3/uL Sodium 134 L (137-145) mmol/L Chloride 97 L (98-107) mmol/L Carbon Dioxide 31 H (22-30) mmol/L BUN 42 H (7-17) mg/dL Creatinine 1.46 H (0.52-1.04) mg/dL POC Glucose (mg/dL) 68 L (70-110) mg/dL Calcium 7.5 L (8.4-10.2) mg/dL Microbiology - Last 24 Hours (Table) 02/25/25 05:03 Blood Culture - Preliminary Blood Assessment and Plan Assessment: Impression: Acute on chronic hypoxic and hypercapnic respiratory failure, multifactorial. Suspect acute on chronic diastolic congestive heart failure and possible healthcare acquired pneumonia, as well as underlying COPD Troponin leak Right peritracheal necrotic lymph node/mass with central calcification, PET avid. Status post transbronchial needle aspirate of station 4R yesterday 02/24/2025 History of factor V Leyden deficiency with previous DVT/PE anticoagulated with Eliquis. This was stopped approximately one month ago for unclear reason Diabetes mellitus, type II Diabetic neuropathy Coronary disease with previous stent placement Hypertension Hyperlipidemia Hypothyroidism Anxiety/depression Former smoker Recommendation: Hold Lasix for the next 24 hours but continue Aldactone and continue to monitor renal status her creatinine today is up to 1.46. Chest x- ray showed improvement compared to baseline. Actually with significant improvement compared to baseline. Her renal function worsening could also be related to the CT angiogram/contrast media that she received to rule out pulmonary embolism. Continue present supportive care measures Continue O2 and titrate accordingly CT angiogram of the chest was reviewed, no evidence of pulmonary embolism Continue antibiotics empirically/Zosyn for now. IV fluid to KVO Continue Eliquis Will continue to follow Time with Patient: Less than 30
[2025-02-28 11:55] LABS: Glucose,Whole Blood 70 mg/dL (70-110)
[2025-02-28] MEDS: ONDANSETRON ODT 4 MG TAB PO PRN (12:41)
--- NOTE | 2025-02-28 13:08 | P.PN ---
Subjective HISTORY OF PRESENT ILLNESS: This is a 70-year-old female with a past medical history significant for coronary artery disease, pericardial effusion, hypertension, hyperlipidemia, GI bleed, and diabetes. Patient follows in the office with Dr. Marquez. We have been asked to see the patient in consultation for elevated troponins. Patient examined at the bedside. Patient presented to the hospital for chief complaint of shortness of breath. She also reports having a cough with sputum production. Patient was noted to be febrile upon admission. She remains febrile this morning with a temperature of 102.5. She currently denies any chest pain or pressure. DIAGNOSTICS: - EKG reveals sinus tachycardia with no signs of acute ischemia. - Chest xray worsening bilateral airspace opacities concerning for multifocal pneumonia and/or pulmonary edema. Worsening small pleural effusions. - Chest CTA: Negative for pulmonary embolism. Soft tissue mass correlating with PET scan within the pretracheal space of the mediastinum. - Venous Doppler: Negative for DVT bilaterally - Laboratory data: proBNP 1330. Troponin 0.039. 0.059. - Current home cardiac medications include Eliquis 5 mg twice a day, Aldactone 12.5 mg twice a day, Entresto 24-26 mg twice a day, midodrine 5 mg 3 times daily, Toprol tartrate 12.5 mg twice a day, Lasix 40 mg daily, Plavix 75 mg daily, Lipitor 80 mg at night, aspirin 81 mg daily. - Most recent echocardiogram obtained in January 2025 revealed ejection fraction 55 to 60%, trace pericardial effusion - Cardiac catheterization history: October 2024 with stenting of the mid proximal and ostial right RCA with 3 drug-eluting stents 02/27/2025 Patient examined this morning at the bedside. She currently denies chest pain or pressure. Reports mild SOB. Her IV lasix was increased by pulmonary medicine. She became hypotensive yesterday evening 02/28/2025 Patient examined this morning at bedside. Patient's family is present. Patient currently denies chest pain or pressure. She denies shortness of breath. She is complaining of rectal pain this morning. Patient remains on IV Lasix. Creatinine increased today to 1.46. PHYSICAL EXAM: VITAL SIGNS: Reviewed. GENERAL: Well-developed in no acute distress. HEENT: Head is normocephalic. Pupils are equal, round. Sclerae anicteric. Mucous membranes of the mouth are moist. Neck supple. No JVD or thyromegaly LUNGS: Respirations even and unlabored. Lungs diminished bilaterally with coughing noted HEART: Regular rate and rhythm. S1 and S2 heard. ABDOMEN: Soft. Nondistended. Nontender. EXTREMITIES: Normal range of motion. No clubbing or cyanosis. Peripheral puls es intact. No lower extremity edema NEUROLOGIC: Awake and alert. Oriented x 3. 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 Repeat kidney function in a.m. Continue to monitor blood pressure Discontinue aspirin. Continue Eliquis and Plavix Continue additional cardiac medications including Lipitor, metoprolol, midodrine, Entresto, and Aldactone Further recommendations pending patient course Nurse practitioner note has been reviewed by physician. Signing provider agrees with the documented findings, assessment, and plan of care documented by SNAKER as a scribe. Objective - Vital Signs Vital signs: Vital Signs Temp 97.9 F 02/28/25 08:00 Pulse 86 02/28/25 12:00 Resp 16 02/28/25 12:00 BP 95/56 02/28/25 12:00 Pulse Ox 95 02/28/25 12:00 FiO2 40 02/25/25 11:13 Intake & Output 02/27/25 02/28/25 02/28/25 18:59 06:59 18:59 Intake Total 530 Output Total 500 Balance 30 Weight 96.5 kg Intake: Oral 530 Output: Urine 500 Other: Voiding Method External Catheter External Catheter # Voids 1 # Bowel Movements 1 1 - Labs CBC & Chem 7: 02/28/25 05:54 02/28/25 05:54 Labs: Abnormal Lab Results - Last 24 Hours (Table) 07/26/25 07/26/25 07/26/25 Range/Units 05:54 05:54 11:33 WBC 2.80 L (4.50-10.00) 10*3/uL RBC 3.94 L (4.10-5.20) 10*6/uL Hgb 10.3 L (12.0-15.0) g/dL Hct 33.7 L (37.2-46.3) % MCH 26.1 L (27.0-32.0) pg MCHC 30.6 L (32.0-37.0) g/dL Plt Count 109 L (140-440) 10*3/uL Lymphocytes # 0.65 L (0.90-5.00) 10*3/uL Eosinophils # 0.01 L (0.04-0.35) 10*3/uL Sodium 134 L (137-145) mmol/L Chloride 97 L (98-107) mmol/L Carbon Dioxide 31 H (22-30) mmol/L BUN 42 H (7-17) mg/dL Creatinine 1.46 H (0.52-1.04) mg/dL POC Glucose (mg/dL) 68 L (70-110) mg/dL Calcium 7.5 L (8.4-10.2) mg/dL Microbiology - Last 24 Hours (Table) 02/25/25 05:03 Blood Culture - Preliminary Blood
--- NOTE | 2025-02-28 13:16 | P.PN ---
Subjective Progress Note Date: 02/28/25 This is a pleasant 70 years old female with past medical history of multiple medical problems Patient cannot provide information as currently on BiPAP and nonverbal. Information were obtained with the help of the daughter at bedside. Patient has been having shortness of breath recently. She underwent lung biopsy with Dr. Alegria yesterday and results was fine. Infection was suspected but she was only little wheezing when she went home and with no chest pain or dyspnea however overnight she has more work of breathing increased and more labored she was coughing sweating and did a lot of pain so she came to the emergency room. Patient currently nonverbal As per daughter patient Eliquis was held 1 month ago for unknown reason and aspirin and Plavix were off for 5 months for the procedure She had a fever while in the hospital about 102.5. Blood pressure 101/98. She is breathing around 25 to 30/min Ultrasound of the leg is negative for DVT. EKG showing sinus tachycardia at [address]-T changes. Chest x-ray showing multifocal pneumonia reviewed yesterday by myself and agree. Also there is some evidence of worsening pleural effusion. pH is low at 7.25 and pCO2 is elevated 61. Troponin is elevated 0.05 and 0.059. proBNP is high 1330. Patient on Zosyn. Subjective: 02/26/2025: Patient seen at bedside. No significant overnight events. Patient is able to communicate a bit but mostly but is non comprehendible sounds. Temperature was checked while I was in the room, 102.2. Patient was given Tylenol at that time. 02/27/2025: Patient seen at bedside. Overnight approximately 4 AM patient spiked a fever of 101.5 and was tachycardic at that time with a HR of 101. Tylenol was given and next fever taken 2 hours later was 98.2. Patient's blood pressure has also been on the softer side most recent 95/62. Patient continues on 3 L of nasal cannula, no new complaints or concerns at this time. 02/28/2025: Patient seen at bedside. Overnight patient spiked a low-grade fever of 100.1 approximately 8 PM last night, patient has been weaned down to 2 L oxygen saturating well. Blood pressure stabilized after increasing midodrine dosage. Patient states her breathing is better, still complains of rectal pain for which she is receiving Robaxin. States she did have a bowel movement last night. Patient has no other complaints or concerns at this time. Pertinent positives and negatives discussed above, a complete review of systems was preformed and all the other sytems were negative. Vitals Signs Reveiwed. GENERAL: Patient currently on 3 L nasal cannula HEENT: Pupils are round and equally reacting to light. EOMI. No scleral icterus. No conjunctival pallor. Normocephalic, atraumatic. No pharyngeal erythema. No thyromegaly. CARDIOVASCULAR: S1 and S2 present. No murmurs, rubs, or gallops. -PULMONARY: Chest is clear to auscultation, no wheezing , Tachypnea with bilateral crepitation ABDOMEN: Soft, nontender, nondistended, normoactive bowel sounds. No palpable organomegaly. MUSCULOSKELETAL: No joint swelling or deformity. EXTREMITIES: No cyanosis, clubbing, or pedal edema. NEUROLOGICAL: Gross neurological examination did not reveal any focal deficits. SKIN: No rashes. no petechiae. Data Reveiwed Today: Patient Labs: WBC 2.72, hemoglobin 10.2, platelets 115, neutrophils 2.3, sodium 131, potassium 3.4, BUN 33, creatinine 1.19, glucose 179, and calcium 7.7. Imaging: Chest x-ray showed improvement in consolidations compared to previous from 2 days ago Assesment and Plan: #Bilateral multifocal pneumonia: #Sepsis with fever and leukocytosis secondary to above #Acute hypoxic respiratory failure secondary to above - Continue Zosyn 3.375 g IVPB Q8 HR (day 4) - Continue DuoNebs 4 times daily as well as every 2 hours as needed for shortness of breath or wheezing - Pulmonology on consult, appreciate further recommendations - Currently on 3 L oxygen, this is the patient's home oxygen - Preliminary blood cultures showed no growth after 72 hours #Diastolic congestive heart failure with possible exacerbation: - Discontinued Lasix, creatinine increased from 1.19 up to 1.46, will consider oral Lasix in the a.m. based off clinical picture and kidney function -Cardiology on consult, appreciate further recommendations -Continue Eliquis 5 mg p.o. twice daily, aspirin 81 mg p.o. daily, Lipitor 80 mg p.o. at bedtime, Entresto, and Aldactone 12.5 mg p.o. twice daily - Metoprolol 12.5 mg p.o. twice daily - Telemetry - Daily weights - Fluid restrict to 2 L daily #Hypotension: - Increase to home dose of midodrine to 10 mg p.o. 3 times daily with meals - Continue to monitor vitals #Hypokalemia: - Potassium found to be at 3.4 today - Started potassium replacement protocol - Continue to monitor BMP #Left knee pain: - Pain management following, recommended CT knee, results above, appreciate further recommendations - Continued patient's current home medication of oxycodone Chronic #Diabetes mellitus: - Continue Lantus 20 units SQ twice daily, lispro 6 units SQ AC 3 times daily - Sliding scale - Continue to monitor blood sugar here as it continue to be high and may need to make adjustments to long-acting dose #Hypothyroidism: - Continue Synthroid 200 mcg p.o. daily #Mood disorder: - Continue Lexapro 10 mg p.o. daily #Chronic rectal pain: - Continued patient's home Robaxin - No bloody stools at this time, will reevaluate if pain becomes unbearable or there are bloody bowel movements or we see a change in hemoglobin F none E none N heart healthy diet DVT ppx: Eliquis 5 mg twice daily and SCDs GI ppx: None Code Status: Full code Anticipated discharge place: Pending clinical course Anticipated discharge time: Pending clinical course Objective - Vital Signs Vital signs: Vital Signs Temp 98.1 F 02/28/25 04:00 Pulse 85 02/28/25 04:00 Resp 18 02/28/25 04:00 BP 102/62 02/28/25 04:00 Pulse Ox 95 02/28/25 04:00 FiO2 40 02/25/25 11:13 Intake & Output 02/27/25 02/28/25 02/28/25 18:59 06:59 18:59 Intake Total 530 Output Total 500 Balance 30 Weight 96.5 kg Intake: Oral 530 Output: Urine 500 Other: Voiding Method External Catheter # Voids 1 # Bowel Movements 1 1 - Labs CBC & Chem 7: 03/02/25 06:56 03/03/25 06:53 Labs: Abnormal Lab Results - Last 24 Hours (Table) 02/27/25 02/27/25 02/27/25 Range/Units 07:54 07:54 11:19 WBC 2.72 L (4.50-10.00) 10*3/uL RBC 3.88 L (4.10-5.20) 10*6/uL Hgb 10.2 L (12.0-15.0) g/dL Hct 34.2 L (37.2-46.3) % MCH 26.3 L (27.0-32.0) pg MCHC 29.8 L (32.0-37.0) g/dL Plt Count 115 L (140-440) 10*3/uL Lymphocytes # 0.26 L (0.90-5.00) 10*3/uL Monocytes # 0.11 L (0.20-1.00) 10*3/uL Eosinophils # 0.01 L (0.04-0.35) 10*3/uL Immature Plt Fraction 7.7 H (1.1-6.1) % Sodium 131 L (137-145) mmol/L Potassium 3.4 L (3.5-5.1) mmol/L Chloride 96 L (98-107) mmol/L BUN 33 H (7-17) mg/dL Creatinine 1.19 H (0.52-1.04) mg/dL Glucose 179 H (74-99) mg/dL POC Glucose (mg/dL) 158 H (70-110) mg/dL Calcium 7.7 L (8.4-10.2) mg/dL Microbiology - Last 24 Hours (Table) 02/25/25 05:03 Blood Culture - Preliminary Blood Assessment and Plan Assessment: Attestation Attestation/ Building Maintenance Mechanic Note: Attestation to Progress Note, Participation (I saw and evaluated the patient with the Resident, and I reviewed and discussed the patient with the Resident and agree with the Resident's findings and plans as documented above., management reviewed and discussed), I agree with findings & plan, Provider Signature (JANIA HOLT, SASHA Cabrales Time with Patient: Greater than 30
[2025-02-28 16:42] LABS: Glucose,Whole Blood 181 mg/dL (70-110)
[2025-02-28 20:01] LABS: Glucose,Whole Blood 227 mg/dL (70-110)
[2025-03-01 06:20] LABS: Glucose,Whole Blood 59 mg/dL (70-110)
[2025-03-01 06:36] LABS: Glucose,Whole Blood 60 mg/dL (70-110)
[2025-03-01 06:49] LABS: Glucose,Whole Blood 76 mg/dL (70-110)
[2025-03-01 07:20] LABS: Basophils # (A) 0.02 10*3/uL (0.00-0.10); Basophils % (A) 0.7 %; Eosinophils # (A) 0.07 10*3/uL (0.04-0.35); Eosinophils % (A) 2.3 %; HCT 30.1 % (37.2-46.3); HGB 9.1 g/dL (12.0-15.0); Lymphocytes # (A) 1.20 10*3/uL (0.90-5.00); Lymphocytes % (A) 39.7 %; MCH 26.1 pg (27.0-32.0); MCHC 30.2 g/dL (32.0-37.0); MCV 86.2 fL (80.0-97.0); Monocytes # (A) 0.27 10*3/uL (0.20-1.00); Monocytes % (A) 8.9 %; Neutrophils # (A) 1.46 10*3/uL (1.80-7.70); Neutrophils % (A) 48.4 %; Platelet Count 107 10*3/uL (140-440); RBC 3.49 10*6/uL (4.10-5.20); RDW 22.5 % (11.5-14.5); WBC 3.02 10*3/uL (4.50-10.00)
[2025-03-01 07:31] LABS: African American GFR (CKD) 43 (>60 ml/min/1.73 sqM); Anion Gap 7 mmol/L; Blood Urea Nitrogen 40 mg/dL (7-17); Calcium 7.4 mg/dL (8.4-10.2); Carbon Dioxide 29 mmol/L (22-30); Chloride 97 mmol/L (98-107); Glucose 50 mg/dL (74-99); Non-African American GFR(CKD) 37 (>60 ml/min/1.73 sqM); Potassium 3.2 mmol/L (3.5-5.1); Sodium 133 mmol/L (137-145)
[2025-03-01 09:58] LABS: Glucose,Whole Blood 160 mg/dL (70-110)
[2025-03-01] MEDS: SODIUM CHLORIDE 0.9% 250 ML IV SCH (10:04)
--- NOTE | 2025-03-01 10:04 | P.PN ---
Subjective Progress Note Date: 03/01/25 This is a pleasant 70 years old female with past medical history of multiple medical problems Patient cannot provide information as currently on BiPAP and nonverbal. Information were obtained with the help of the daughter at bedside. Patient has been having shortness of breath recently. She underwent lung biopsy with Dr. Alegria yesterday and results was fine. Infection was suspected but she was only little wheezing when she went home and with no chest pain or dyspnea however overnight she has more work of breathing increased and more labored she was coughing sweating and did a lot of pain so she came to the emergency room. Patient currently nonverbal As per daughter patient Eliquis was held 1 month ago for unknown reason and aspirin and Plavix were off for 5 months for the procedure She had a fever while in the hospital about 102.5. Blood pressure 101/98. She is breathing around 25 to 30/min Ultrasound of the leg is negative for DVT. EKG showing sinus tachycardia at [address]-T changes. Chest x-ray showing multifocal pneumonia reviewed yesterday by myself and agree. Also there is some evidence of worsening pleural effusion. pH is low at 7.25 and pCO2 is elevated 61. Troponin is elevated 0.05 and 0.059. proBNP is high 1330. Patient on Zosyn. Subjective: 02/26/2025: Patient seen at bedside. No significant overnight events. Patient is able to communicate a bit but mostly but is non comprehendible sounds. Temperature was checked while I was in the room, 102.2. Patient was given Tylenol at that time. 02/27/2025: Patient seen at bedside. Overnight approximately 4 AM patient spiked a fever of 101.5 and was tachycardic at that time with a HR of 101. Tylenol was given and next fever taken 2 hours later was 98.2. Patient's blood pressure has also been on the softer side most recent 95/62. Patient continues on 3 L of nasal cannula, no new complaints or concerns at this time. 02/28/2025: Patient seen at bedside. Overnight patient spiked a low-grade fever of 100.1 approximately 8 PM last night, patient has been weaned down to 2 L oxygen saturating well. Blood pressure stabilized after increasing midodrine dosage. Patient states her breathing is better, still complains of rectal pain for which she is receiving Robaxin. States she did have a bowel movement last night. Patient has no other complaints or concerns at this time. 03/01/2025: Patient seen at bedside no acute overnight events, eating well, had a bowel movement, still experiencing some pain Pertinent positives and negatives discussed above, a complete review of systems was preformed and all the other sytems were negative. Vitals Signs Reveiwed. GENERAL: Patient currently on 3 L nasal cannula HEENT: Pupils are round and equally reacting to light. EOMI. No scleral icterus. No conjunctival pallor. Normocephalic, atraumatic. No pharyngeal erythema. No thyromegaly. CARDIOVASCULAR: S1 and S2 present. No murmurs, rubs, or gallops. -PULMONARY: Chest is clear to auscultation, no wheezing , Tachypnea with bilateral crepitation ABDOMEN: Soft, nontender, nondistended, normoactive bowel sounds. No palpable organomegaly. MUSCULOSKELETAL: No joint swelling or deformity. EXTREMITIES: No cyanosis, clubbing, or pedal edema. NEUROLOGICAL: Gross neurological examination did not reveal any focal deficits. SKIN: No rashes. no petechiae. Data Reveiwed Today: Patient Labs: WBC 2.72, hemoglobin 10.2, platelets 115, neutrophils 2.3, sodium 131, potassium 3.4, BUN 33, creatinine 1.19, glucose 179, and calcium 7.7. Imaging: Chest x-ray showed improvement in consolidations compared to previous from 2 days ago Assesment and Plan: #Bilateral multifocal pneumonia: #Sepsis with fever and leukocytosis secondary to above #Acute hypoxic respiratory failure secondary to above #Hypertension secondary to above - Continue Zosyn 3.375 g IVPB Q8 HR (day 4) - Continue DuoNebs 4 times daily as well as every 2 hours as needed for shortness of breath or wheezing - Pulmonology on consult, appreciate further recommendations - Currently on 3 L oxygen, this is the patient's home oxygen - Preliminary blood cultures showed no growth after 72 hour -250cc bolus #Diastolic congestive heart failure with possible exacerbation: - Discontinued Lasix, creatinine increased from 1.19 up to 1.46, will consider oral Lasix in the a.m. based off clinical picture and kidney function -Cardiology on consult, appreciate further recommendations -Continue Eliquis 5 mg p.o. twice daily, aspirin 81 mg p.o. daily, Lipitor 80 mg p.o. at bedtime, Entresto, and Aldactone 12.5 mg p.o. twice daily - Metoprolol 12.5 mg p.o. twice daily - Telemetry - Daily weights - Fluid restrict to 2 L daily #Hypotension: - Increase to home dose of midodrine to 10 mg p.o. 3 times daily with meals - Continue to monitor vitals #Hypokalemia: - Potassium found to be at 3.4 today - Started potassium replacement protocol - Continue to monitor BMP #Left knee pain: - Pain management following, recommended CT knee, results above, appreciate further recommendations - Continued patient's current home medication of oxycodone Chronic #Diabetes mellitus: - Continue Lantus 20 units SQ twice daily, - Sliding scale - Continue to monitor blood sugar here as it continue to be high and may need to make adjustments to long-acting dose -Hypoglycemic, NATHAN Humolog AC TID #Hypothyroidism: - Continue Synthroid 200 mcg p.o. daily #Mood disorder: - Continue Lexapro 10 mg p.o. daily #Chronic rectal pain: - Continued patient's home Robaxin - No bloody stools at this time, will reevaluate if pain becomes unbearable or there are bloody bowel movements or we see a change in hemoglobin F none E none N heart healthy diet DVT ppx: Eliquis 5 mg twice daily and SCDs GI ppx: None Code Status: Full code Anticipated discharge place: Pending clinical course Anticipated discharge time: Pending clinical course Objective - Vital Signs Vital signs: Vital Signs Temp 97.7 F 03/01/25 04:00 Pulse 70 03/01/25 04:00 Resp 16 03/01/25 04:00 BP 98/58 03/01/25 04:00 Pulse Ox 95 03/01/25 04:00 FiO2 40 02/25/25 11:13 Intake & Output 02/28/25 03/01/25 03/01/25 18:59 06:59 18:59 Intake Total 118 Output Total 700 Balance -582 Weight 97 kg Intake: Oral 118 Output: Urine 700 Other: Voiding Method External Catheter External Catheter # Voids 1 # Bowel Movements 1 - Labs CBC & Chem 7: 03/02/25 06:56 03/03/25 06:53 Labs: Abnormal Lab Results - Last 24 Hours (Table) 02/28/25 02/28/25 02/28/25 Range/Units 05:54 05:54 11:33 WBC 2.80 L (4.50-10.00) 10*3/uL RBC 3.94 L (4.10-5.20) 10*6/uL Hgb 10.3 L (12.0-15.0) g/dL Hct 33.7 L (37.2-46.3) % MCH 26.1 L (27.0-32.0) pg MCHC 30.6 L (32.0-37.0) g/dL Plt Count 109 L (140-440) 10*3/uL Lymphocytes # 0.65 L (0.90-5.00) 10*3/uL Eosinophils # 0.01 L (0.04-0.35) 10*3/uL Sodium 134 L (137-145) mmol/L Chloride 97 L (98-107) mmol/L Carbon Dioxide 31 H (22-30) mmol/L BUN 42 H (7-17) mg/dL Creatinine 1.46 H (0.52-1.04) mg/dL POC Glucose (mg/dL) 68 L (70-110) mg/dL Calcium 7.5 L (8.4-10.2) mg/dL 02/28/25 02/28/25 03/01/25 Range/Units 16:40 19:59 06:18 WBC (4.50-10.00) 10*3/uL RBC (4.10-5.20) 10*6/uL Hgb (12.0-15.0) g/dL Hct (37.2-46.3) % MCH (27.0-32.0) pg MCHC (32.0-37.0) g/dL Plt Count (140-440) 10*3/uL Lymphocytes # (0.90-5.00) 10*3/uL Eosinophils # (0.04-0.35) 10*3/uL Sodium (137-145) mmol/L Chloride (98-107) mmol/L Carbon Dioxide (22-30) mmol/L BUN (7-17) mg/dL Creatinine (0.52-1.04) mg/dL POC Glucose (mg/dL) 181 H 227 H 59 L (70-110) mg/dL Calcium (8.4-10.2) mg/dL 03/01/25 Range/Units 06:34 WBC (4.50-10.00) 10*3/uL RBC (4.10-5.20) 10*6/uL Hgb (12.0-15.0) g/dL Hct (37.2-46.3) % MCH (27.0-32.0) pg MCHC (32.0-37.0) g/dL Plt Count (140-440) 10*3/uL Lymphocytes # (0.90-5.00) 10*3/uL Eosinophils # (0.04-0.35) 10*3/uL Sodium (137-145) mmol/L Chloride (98-107) mmol/L Carbon Dioxide (22-30) mmol/L BUN (7-17) mg/dL Creatinine (0.52-1.04) mg/dL POC Glucose (mg/dL) 60 L (70-110) mg/dL Calcium (8.4-10.2) mg/dL Microbiology - Last 24 Hours (Table) 02/25/25 05:03 Blood Culture - Preliminary Blood Assessment and Plan Assessment: Attestation Attestation/ City Designer Note: Attestation to Progress Note, Participation (I saw and evaluated the patient with the Resident, and I reviewed and discussed the patient with the Resident and agree with the Resident's findings and plans as documented above., management reviewed and discussed), I agree with findings & plan, Provider Signature (JANIA HOLT, SASHA Cabrales Time with Patient: Greater than 30
--- NOTE | 2025-03-01 10:15 | P.PN ---
Subjective Progress Note Date: 03/01/25 HISTORY OF PRESENT ILLNESS: This is a 70-year-old female with a past medical history significant for c oronary artery disease, pericardial effusion, hypertension, hyperlipidemia, GI bleed, and diabetes. Patient follows in the office with Dr. Marquez. We have been asked to see the patient in consultation for elevated troponins. Patient examined at the bedside. Patient presented to the hospital for chief complaint of shortness of breath. She also reports having a cough with sputum production. Patient was noted to be febrile upon admission. She remains febrile this morning with a temperature of 102.5. She currently denies any chest pain or pressure. DIAGNOSTICS: - EKG reveals sinus tachycardia with no signs of acute ischemia. - Chest xray worsening bilateral airspace opacities concerning for multifocal pneumonia and/or pulmonary edema. Worsening small pleural effusions. - Chest CTA: Negative for pulmonary embolism. Soft tissue mass correlating with PET scan within the pretracheal space of the mediastinum. - Venous Doppler: Negative for DVT bilaterally - Laboratory data: proBNP 1330. Troponin 0.039. 0.059. - Current home cardiac medications include Eliquis 5 mg twice a day, Aldactone 12.5 mg twice a day, Entresto 24-26 mg twice a day, midodrine 5 mg 3 times daily, Toprol tartrate 12.5 mg twice a day, Lasix 40 mg daily, Plavix 75 mg daily, Lipitor 80 mg at night, aspirin 81 mg daily. - Most recent echocardiogram obtained in January 2025 revealed ejection fraction 55 to 60%, trace pericardial effusion - Cardiac catheterization history: October 2024 with stenting of the mid proximal and ostial right RCA with 3 drug-eluting stents 02/27/2025 Patient examined this morning at the bedside. She currently denies chest pain or pressure. Reports mild SOB. Her IV lasix was increased by pulmonary medicine. She became hypotensive yesterday evening 02/28/2025 Patient examined this morning at bedside. Patient's family is present. Patient currently denies chest pain or pressure. She denies shortness of breath. She is complaining of rectal pain this morning. Patient remains on IV Lasix. Creatinine increased today to 1.46. 03/01/2025 Patient's blood pressure is borderline low. She is getting midodrine. Because of low blood pressure we will hold her Entresto half dose today. Will give her Aldactone. For some reason she was on twice daily dosing which I reduced to daily. Kidney function is stable. Appears frail and weak. PHYSICAL EXAM: VITAL SIGNS: Reviewed. GENERAL: Well-developed in no acute distress. HEENT: Head is normocephalic. Pupils are equal, round. Sclerae anicteric. Mucous membranes of the mouth are moist. Neck supple. No JVD or thyromegaly LUNGS: Respirations even and unlabored. Lungs diminished bilaterally with coughing noted HEART: Regular rate and rhythm. S1 and S2 heard. ABDOMEN: Soft. Nondistended. Nontender. EXTREMITIES: Normal range of motion. No clubbing or cyanosis. Peripheral pulses intact. No lower extremity edema NEUROLOGIC: Awake and alert. Oriented x 3. 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 Consider starting p.o. at the time of discharge Continue to monitor blood pressure Discontinue aspirin. Continue Eliquis and Plavix Continue additional cardiac medications including Lipitor, metoprolol, midodrine, Entresto, and Aldactone Further recommendations pending patient course Objective - Vital Signs Vital signs: Vital Signs Temp 97.7 F 03/01/25 04:00 Pulse 70 03/01/25 04:00 Resp 16 03/01/25 04:00 BP 98/58 03/01/25 04:00 Pulse Ox 99 03/01/25 07:48 FiO2 40 02/25/25 11:13 Intake & Output 02/28/25 03/01/25 03/01/25 18:59 06:59 18:59 Intake Total 118 Output Total 700 Balance -582 Weight 97 kg Intake: Oral 118 Output: Urine 700 Other: Voiding Method External Catheter External Catheter # Voids 1 # Bowel Movements 1 - Labs CBC & Chem 7: 03/01/25 06:16 03/01/25 06:16 Labs: Abnormal Lab Results - Last 24 Hours (Table) 02/28/25 02/28/25 02/28/25 Range/Units 11:33 16:40 19:59 WBC (4.50-10.00) 10*3/uL RBC (4.10-5.20) 10*6/uL Hgb (12.0-15.0) g/dL Hct (37.2-46.3) % MCH (27.0-32.0) pg MCHC (32.0-37.0) g/dL Plt Count (140-440) 10*3/uL Neutrophils # (1.80-7.70) 10*3/uL Sodium (137-145) mmol/L Potassium (3.5-5.1) mmol/L Chloride (98-107) mmol/L BUN (7-17) mg/dL Creatinine (0.52-1.04) mg/dL Glucose (74-99) mg/dL POC Glucose (mg/dL) 68 L 181 H 227 H (70-110) mg/dL Calcium (8.4-10.2) mg/dL 03/01/25 03/01/25 03/01/25 Range/Units 06:16 06:16 06:18 WBC 3.02 L (4.50-10.00) 10*3/uL RBC 3.49 L (4.10-5.20) 10*6/uL Hgb 9.1 L (12.0-15.0) g/dL Hct 30.1 L (37.2-46.3) % MCH 26.1 L (27.0-32.0) pg MCHC 30.2 L (32.0-37.0) g/dL Plt Count 107 L (140-440) 10*3/uL Neutrophils # 1.46 L (1.80-7.70) 10*3/uL Sodium 133 L (137-145) mmol/L Potassium 3.2 L (3.5-5.1) mmol/L Chloride 97 L (98-107) mmol/L BUN 40 H (7-17) mg/dL Creatinine 1.42 H (0.52-1.04) mg/dL Glucose 50 L (74-99) mg/dL POC Glucose (mg/dL) 59 L (70-110) mg/dL Calcium 7.4 L (8.4-10.2) mg/dL 03/01/25 03/01/25 Range/Units 06:34 09:55 WBC (4.50-10.00) 10*3/uL RBC (4.10-5.20) 10*6/uL Hgb (12.0-15.0) g/dL Hct (37.2-46.3) % MCH (27.0-32.0) pg MCHC (32.0-37.0) g/dL Plt Count (140-440) 10*3/uL Neutrophils # (1.80-7.70) 10*3/uL Sodium (137-145) mmol/L Potassium (3.5-5.1) mmol/L Chloride (98-107) mmol/L BUN (7-17) mg/dL Creatinine (0.52-1.04) mg/dL Glucose (74-99) mg/dL POC Glucose (mg/dL) 60 L 160 H (70-110) mg/dL Calcium (8.4-10.2) mg/dL Microbiology - Last 24 Hours (Table) 02/25/25 05:03 Blood Culture - Preliminary Blood
[2025-03-01] MEDS: SPIRONOLACTONE 25 MG TAB PO SCH (10:16)
[2025-03-01] MEDS: POTASSIUM CHLORIDE ER 20 MEQ TAB.ER PO STA (10:16)
[2025-03-01 11:41] LABS: Glucose,Whole Blood 185 mg/dL (70-110)
--- NOTE | 2025-03-01 11:58 | P.PN ---
Subjective Progress Note Date: 03/01/25 Principal diagnosis: Acute on chronic hypoxic and hypercapnic respiratory failure, multifactorial suspect acute on chronic diastolic congestive heart failure with compressive atelectasis, possible underlying pneumonia. This is a pleasant 70-year-old female patient with a history of hyperlipidemia, hypothyroidism, hypertension, DVT/PE anticoagulated with Eliquis however this h ad been stopped approximately 1 month ago. She was also recently found to have a right paratracheal necrotic lymph node/mass with central calcification that was PET avid. She was brought in electively yesterday for a transbronchial needle aspirate of station 4R. She tolerated the procedure well and was discharged to home. Approximately 4:30 this morning she woke up with acute shortness of breath and was brought to the emergency room by EMS. Chest x-ray revealed worsening bilateral airspace opacities concerning for multifocal pneumonia and/or pulmonary edema with worsening small pleural effusions. She was placed on BiPAP 16/7 and 50% FiO2. Arterial blood gases revealed a PO2 of 87, PCO2 of 61 and a pH of 7.32. White count 4.3. Hemoglobin 10.2. Platelets 107. INR 1.0. Sodium 139. Potassium 5.1. Bicarb 28. BUN 13. Creatinine 0.73. Glucose 209. Troponin 0.039, 0.059. Pro BNP 1330. She received ceftriaxone. She is seen today in consultation in the emergency department. She is currently resting on the stretcher. Awake and alert. Her daughter is at the bedside providing most of the information. She is maintaining O2 saturations in the mid 90s. She is afebrile. Hemodynamically stable. Slightly tachypneic. Patient was seen today on 02/26/2025, she seems to be doing much better today, breathing a lot easier. Patient is definitely more awake, does not seem to be in any distress, down to 3 L nasal cannula and O2 saturation 95%. She had a low-grade temp of 99.7 last night. Today's temp is 98.9. WBC count is 3.37 hemoglobin is 9.5 electrolytes are normal bicarb is 31 BUN is 23 creatinine 0.92. Chest x-ray this morning is pending. Again clinically I have noted that the patient is much better today compared to her initial presentation to the ER yesterday. Patient was seen today on 02/27/2025, patient is having more shortness of breath today, chest x-ray is showing worsening interstitial edema and pleural effusions hence her Lasix was increased today. Patient has been on along on Lasix 40 mg twice daily and on Aldactone 12.5 mg twice daily. Patient is on 3 L nasal cannula, O2 sats is 95%, blood pressure is 94/57 mean of 69. Patient is leukope frankie with WBC count of 2.7 hemoglobin of 10.2, basic metabolic profile was noted, potassium is 3.4 BUN is 33 creatinine 1.19. Patient was seen today on 02/28/2025, patient is doing a bit better today from the pulmonary perspective, less shortness of breath, no cough no wheezing, she is complaining of sore bottom/chronically. Patient is now off Lasix because she had worsening renal status, chest x-ray did show improvement however she still has some mild pulmonary vascular congestion but no evidence of overt heart failure. Will continue to hold the Lasix for now, but most likely has to be restarted again in the next 24 hours if her renal functioning improves and if her chest x-ray shows worsening heart failure. For the time being it is reasonable to keep Lasix on hold she is receiving Aldactone. WBC count today is 2.8 hemoglobin 10.3 electrolytes are normal BUN is 42 creatinine 1.46, baseline creatinine on admission was 0.73. Again we will continue to hold Lasix for now. And will continue to monitor her renal status. At the same time if the patient develops worsening heart failure she needs to go back on more diuretics. Patient was seen today on 03/01/2025, continues to do fairly well, not in distress, on 3 L nasal cannula with O2 sat ranging between 95 up to 99%, seems to be fairly comfortable. Renal functioning is stable Lasix remains presently on hold. Patient is on Aldactone. CBC is relatively unremarkable electrolytes showed low potassium of 3.2 creatinine 1.42 BUN is 40. Objective - Vital Signs Vital signs: Vital Signs Temp 97.7 F 03/01/25 04:00 Pulse 70 03/01/25 04:00 Resp 16 03/01/25 04:00 BP 98/58 03/01/25 04:00 Pulse Ox 99 03/01/25 07:48 FiO2 40 02/25/25 11:13 Intake & Output 02/28/25 03/01/2525 18:59 06:59 18:59 Intake Total 118 Output Total 700 Balance -582 Weight 97 kg Intake: Oral 118 Output: Urine 700 Other: Voiding Method External Catheter External Catheter # Voids 1 # Bowel Movements 1 - Exam GENERAL EXAM: Reveals 70-year-old female in no distress on 3 L nasal cannula HEAD: Normocephalic. EYES: Normal reaction of pupils, equal size. NOSE: Clear with pink turbinates. THROAT: No erythema or exudates. NECK: No masses, no JVD. CHEST: No chest wall deformity. LUNGS: Diminished breath sound bilaterally no crackles rhonchi or wheezes CVS: S1 and S2 normal with no audible murmur, regular rhythm. ABDOMEN: No hepatosplenomegaly, normal bowel sounds, no guarding or rigidity. SKIN: No rashes CENTRAL NERVOUS SYSTEM: Alert and oriented x 3 no gross focal neurologic deficit EXTREMITIES: Lymphedema of the left lower extremity. Charcot syndrome left foot. No clubbing, no cyanosis. Peripheral pulses are intact. - Labs CBC & Chem 7: 03/01/25 06:16 03/01/25 06:16 Labs: Abnormal Lab Results - Last 24 Hours (Table) 02/28/25 02/28/25 03/01/25 Range/Units 16:40 19:59 06:16 WBC (4.50-10.00) 10*3/uL RBC (4.10-5.20) 10*6/uL Hgb (12.0-15.0) g/dL Hct (37.2-46.3) % MCH (27.0-32.0) pg MCHC (32.0-37.0) g/dL Plt Count (140-440) 10*3/uL Neutrophils # (1.80-7.70) 10*3/uL Sodium 133 L (137-145) mmol/L Potassium 3.2 L (3.5-5.1) mmol/L Chloride 97 L (98-107) mmol/L BUN 40 H (7-17) mg/dL Creatinine 1.42 H (0.52-1.04) mg/dL Glucose 50 L (74-99) mg/dL POC Glucose (mg/dL) 181 H 227 H (70-110) mg/dL Calcium 7.4 L (8.4-10.2) mg/dL 03/01/25 03/01/25 03/01/25 Range/Units 06:16 06:18 06:34 WBC 3.02 L (4.50-10.00) 10*3/uL RBC 3.49 L (4.10-5.20) 10*6/uL Hgb 9.1 L (12.0-15.0) g/dL Hct 30.1 L (37.2-46.3) % MCH 26.1 L (27.0-32.0) pg MCHC 30.2 L (32.0-37.0) g/dL Plt Count 107 L (140-440) 10*3/uL Neutrophils # 1.46 L (1.80-7.70) 10*3/uL Sodium (137-145) mmol/L Potassium (3.5-5.1) mmol/L Chloride (98-107) mmol/L BUN (7-17) mg/dL Creatinine (0.52-1.04) mg/dL Glucose (74-99) mg/dL POC Glucose (mg/dL) 59 L 60 L (70-110) mg/dL Calcium (8.4-10.2) mg/dL 03/01/25 03/01/25 Range/Units 09:55 11:39 WBC (4.50-10.00) 10*3/uL RBC (4.10-5.20) 10*6/uL Hgb (12.0-15.0) g/dL Hct (37.2-46.3) % MCH (27.0-32.0) pg MCHC (32.0-37.0) g/dL Plt Count (140-440) 10*3/uL Neutrophils # (1.80-7.70) 10*3/uL Sodium (137-145) mmol/L Potassium (3.5-5.1) mmol/L Chloride (98-107) mmol/L BUN (7-17) mg/dL Creatinine (0.52-1.04) mg/dL Glucose (74-99) mg/dL POC Glucose (mg/dL) 160 H 185 H (70-110) mg/dL Calcium (8.4-10.2) mg/dL Microbiology - Last 24 Hours (Table) 02/25/25 05:03 Blood Culture - Preliminary Blood Assessment and Plan Assessment: Impression: Acute on chronic hypoxic and hypercapnic respiratory failure, multifactorial. Suspect acute on chronic diastolic congestive heart failure and possible healthcare acquired pneumonia, as well as underlying COPD Troponin leak Right peritracheal necrotic lymph node/mass with central calcification, PET avid. Status post transbronchial needle aspirate of station 4R yesterday 02/24/2025 History of factor V Leyden deficiency with previous DVT/PE anticoagulated with Eliquis. This was stopped approximately one month ago for unclear reason Diabetes mellitus, type II Diabetic neuropathy Coronary disease with previous stent placement Hypertension Hyperlipidemia Hypothyroidism Anxiety/depression Former smoker Recommendation: Continue to hold Lasix for now.Continue Aldactone baseline. Continue to monitor renal profile and pulmonary status resume Lasix if the patient develops worsening pulmonary edema, remind you her worsening renal status and creatinine is most likely related to the CT with contrast in combination with diuretics. Continue present supportive care measures Continue O2 and titrate accordingly CT angiogram of the chest ruled out pulmonary embolism Continue antibiotics empirically/Zosyn IV fluid to KVO Continue Eliquis Will continue to follow Time with Patient: Less than 30
[2025-03-01 16:29] LABS: Glucose,Whole Blood 250 mg/dL (70-110)
[2025-03-01 20:16] LABS: Glucose,Whole Blood 284 mg/dL (70-110)
[2025-03-02 06:02] LABS: Glucose,Whole Blood 151 mg/dL (70-110)
[2025-03-02 08:26] LABS: ALT 24 U/L (4-34); AST 76 U/L (14-36); African American GFR (CKD) 54 (>60 ml/min/1.73 sqM); Albumin 2.3 g/dL (3.5-5.0); Alkaline Phosphatase 269 U/L (38-126); Anion Gap 7 mmol/L; Blood Urea Nitrogen 30 mg/dL (7-17); Calcium 7.4 mg/dL (8.4-10.2); Carbon Dioxide 26 mmol/L (22-30); Chloride 101 mmol/L (98-107); Glucose 140 mg/dL (74-99); Non-African American GFR(CKD) 47 (>60 ml/min/1.73 sqM); Potassium 4.1 mmol/L (3.5-5.1); Sodium 134 mmol/L (137-145); Total Protein 5.3 g/dL (6.3-8.2)
[2025-03-02] MEDS ORDERED: SPIRONOLACTONE 25 MG TAB PO SCH (09:00)
[2025-03-02 11:09] LABS: Basophils # (A) 0.02 10*3/uL (0.00-0.10); Basophils % (A) 0.6 %; Eosinophils # (A) 0.13 10*3/uL (0.04-0.35); Eosinophils % (A) 3.7 %; HCT 31.6 % (37.2-46.3); HGB 9.3 g/dL (12.0-15.0); Lymphocytes # (A) 1.53 10*3/uL (0.90-5.00); Lymphocytes % (A) 44.0 %; MCH 26.0 pg (27.0-32.0); MCHC 29.4 g/dL (32.0-37.0); MCV 88.3 fL (80.0-97.0); Monocytes # (A) 0.35 10*3/uL (0.20-1.00); Monocytes % (A) 10.1 %; Neutrophils # (A) 1.44 10*3/uL (1.80-7.70); Neutrophils % (A) 41.3 %; Platelet Count 104 10*3/uL (140-440); RBC 3.58 10*6/uL (4.10-5.20); RDW 22.4 % (11.5-14.5); WBC 3.48 10*3/uL (4.50-10.00)
--- NOTE | 2025-03-02 11:25 | P.PN ---
Subjective Progress Note Date: 03/02/25 HISTORY OF PRESENT ILLNESS: This is a 70-year-old female with a past medical history significant for co ronary artery disease, pericardial effusion, hypertension, hyperlipidemia, GI bleed, and diabetes. Patient follows in the office with Dr. Marquez. We have been asked to see the patient in consultation for elevated troponins. Patient examined at the bedside. Patient presented to the hospital for chief complaint of shortness of breath. She also reports having a cough with sputum production. Patient was noted to be febrile upon admission. She remains febrile this morning with a temperature of 102.5. She currently denies any chest pain or pressure. DIAGNOSTICS: - EKG reveals sinus tachycardia with no signs of acute ischemia. - Chest xray worsening bilateral airspace opacities concerning for multifocal pneumonia and/or pulmonary edema. Worsening small pleural effusions. - Chest CTA: Negative for pulmonary embolism. Soft tissue mass correlating with PET scan within the pretracheal space of the mediastinum. - Venous Doppler: Negative for DVT bilaterally - Laboratory data: proBNP 1330. Troponin 0.039. 0.059. - Current home cardiac medications include Eliquis 5 mg twice a day, Aldactone 12.5 mg twice a day, Entresto 24-26 mg twice a day, midodrine 5 mg 3 times daily, Toprol tartrate 12.5 mg twice a day, Lasix 40 mg daily, Plavix 75 mg daily, Lipitor 80 mg at night, aspirin 81 mg daily. - Most recent echocardiogram obtained in January 2025 revealed ejection fraction 55 to 60%, trace pericardial effusion - Cardiac catheterization history: October 2024 with stenting of the mid proximal and ostial right RCA with 3 drug-eluting stents 02/27/2025 Patient examined this morning at the bedside. She currently denies chest pain or pressure. Reports mild SOB. Her IV lasix was increased by pulmonary medicine. She became hypotensive yesterday evening 02/28/2025 Patient examined this morning at bedside. Patient's family is present. Patient currently denies chest pain or pressure. She denies shortness of breath. She is complaining of rectal pain this morning. Patient remains on IV Lasix. Creatinine increased today to 1.46. 03/01/2025 Patient's blood pressure is borderline low. She is getting midodrine. Because of low blood pressure we will hold her Entresto half dose today. Will give her Aldactone. For some reason she was on twice daily dosing which I reduced to daily. Kidney function is stable. Appears frail and weak. 03/02/2025 Patient seen and examined. Patient is complaining that her butt is hurting her and she does not know why. She denies chest pain or chest pressure. Repeat blood work reveals WBC 3.4, hemoglobin 9.3, platelet count 104. Sodium 134, p otassium 4.1, BUN 30 creatinine 1.18. A AST 76. Lasix has been on hold 02/28 due to worsening creatinine. PHYSICAL EXAM: VITAL SIGNS: Reviewed. GENERAL: Well-developed in no acute distress. HEENT: Head is normocephalic. Pupils are equal, round. Sclerae anicteric. No JVD or thyromegaly LUNGS: Respirations even and unlabored. Lungs diminished bilaterally with coughing noted HEART: Regular rate and rhythm. S1 and S2 heard. Systolic murmur at the apex. ABDOMEN: Soft. Nondistended. Nontender. EXTREMITIES: No clubbing or cyanosis. Peripheral pulses intact. No lower extremity edema NEUROLOGIC: Awake and alert. Oriented x 3. ASSESSMENT: Shortness of breath Mild acute on chronic heart failure with preserved EF Bilateral pleural effusions Acute kidney injury Pneumonia Fever Elevated troponins, flat, type II [place] secondary to oxygen supply and demand mismatch, no evidence of acute coronary syndrome Right peritracheal necrotic lymph node/mass with central calcification, status post biopsy Acute hypoxic respiratory failure Coronary artery disease with previous stenting Hypertension Hyperlipidemia History of GI bleeding History of factor V Leyden with history of DVT and PE Diabetes Pancytopenia PLAN: An acute coronary event has been ruled out No need to repeat echocardiogram as this was performed in January 2025 Resume Lasix 20 mg daily starting tomorrow Continue to monitor blood pressure Discontinue aspirin. Continue Eliquis and Plavix Continue additional cardiac medications including Lipitor, metoprolol, midodrine, Entresto, and Aldactone Further recommendations pending patient course Nurse practitioner note has been reviewed, I agree with documented findings and plan of care. Patient was seen and examined. Objective - Vital Signs Vital signs: Vital Signs Temp 97.8 F 03/02/25 04:00 Pulse 68 03/02/25 04:00 Resp 19 03/02/25 04:00 BP 97/58 03/02/25 04:00 Pulse Ox 95 03/02/25 04:00 FiO2 40 02/25/25 11:13 Intake & Output 03/01/25 03/02/25 03/02/25 18:59 06:59 18:59 Intake Total 240 20 Output Total 750 550 Balance -510 -530 Weight 96.5 kg Intake: IV 20 Invasive Line 3 20 Oral 240 Output: Urine 750 550 Other: Voiding Method External Catheter External Catheter # Bowel Movements 2 1 - Labs CBC & Chem 7: 03/02/25 06:56 03/02/25 06:56 Labs: Abnormal Lab Results - Last 24 Hours (Table) 03/01/25 03/01/25 03/01/25 Range/Units 06:16 09:55 11:39 Neutrophils # 1.46 L (1.80-7.70) 10*3/uL POC Glucose (mg/dL) 160 H 185 H (70-110) mg/dL 03/01/25 03/01/25 03/02/25 Range/Units 16:28 20:15 06:00 Neutrophils # (1.80-7.70) 10*3/uL POC Glucose (mg/dL) 250 H 284 H 151 H (70-110) mg/dL
[2025-03-02 11:36] LABS: Glucose,Whole Blood 165 mg/dL (70-110)
--- NOTE | 2025-03-02 12:46 | P.PN ---
Subjective Progress Note Date: 03/02/25 Principal diagnosis: Pneumonia. This is a pleasant 70-year-old female patient with a history of hyperlipidemia, hypothyroidism, hypertension, DVT/PE anticoagulated with Eliquis however this had been stopped approximately 1 month ago. She was also recently found to have a right paratracheal necrotic lymph node/mass with central calcification that was PET avid. She was brought in electively yesterday for a transbronchial needle aspirate of station 4R. She tolerated the procedure well and was discharged to home. Approximately 4:30 this morning she woke up with acute shortness of breath and was brought to the emergency room by EMS. Chest x-ray revealed worsening bilateral airspace opacities concerning for multifocal pneumonia and/or pulmonary edema with worsening small pleural effusions. She was placed on BiPAP 16/7 and 50% FiO2. Arterial blood gases revealed a PO2 of 87, PCO2 of 61 and a pH of 7.32. White count 4.3. Hemoglobin 10.2. Platelets 107. INR 1.0. Sodium 139. Potassium 5.1. Bicarb 28. BUN 13. Creatinine 0.73. Glucose 209. Troponin 0.039, 0.059. Pro BNP 1330. She received ceftriaxone. She is seen today in consultation in the emergency department. She is currently resting on the stretcher. Awake and alert. Her daughter is at the bedside providing most of the information. She is maintaining O2 saturations in the mid 90s. She is afebrile. Hemodynamically stable. Slightly tachypneic. Patient was seen today on 02/26/2025, she seems to be doing much better today, breathing a lot easier. Patient is definitely more awake, does not seem to be in any distress, down to 3 L nasal cannula and O2 saturation 95%. She had a low-grade temp of 99.7 last night. Today's temp is 98.9. WBC count is 3.37 hemoglobin is 9.5 electrolytes are normal bicarb is 31 BUN is 23 creatinine 0.92. Chest x-ray this morning is pending. Again clinically I have noted that the patient is much better today compared to her initial presentation to the ER yesterday. Patient was seen today on 02/27/2025, patient is having more shortness of breath today, chest x-ray is showing worsening interstitial edema and pleural effusions hence her Lasix was increased today. Patient has been on along on Lasix 40 mg twice daily and on Aldactone 12.5 mg twice daily. Patient is on 3 L nasal cannula, O2 sats is 95%, blood pressure is 94/57 mean of 69. Patient is leukopenic with WBC count of 2.7 hemoglobin of 10.2, basic metabolic profile was noted, potassium is 3.4 BUN is 33 creatinine 1.19. Patient was seen today on 02/28/2025, patient is doing a bit better today from the pulmonary perspective, less shortness of breath, no cough no wheezing, she is complaining of sore bottom/chronically. Patient is now off Lasix because she had worsening renal status, chest x-ray did show improvement however she still has some mild pulmonary vascular congestion but no evidence of overt heart failure. Will continue to hold the Lasix for now, but most likely has to be restarted again in the next 24 hours if her renal functioning improves and if her chest x-ray shows worsening heart failure. For the time being it is reasonable to keep Lasix on hold she is receiving Aldactone. WBC count today is 2.8 hemoglobin 10.3 electrolytes are normal BUN is 42 creatinine 1.46, baseline creatinine on admission was 0.73. Again we will continue to hold Lasix for now. And will continue to monitor her renal status. At the same time if the patient develops worsening heart failure she needs to go back on more diuretics. Patient was seen today on 03/01/2025, continues to do fairly well, not in distress, on 3 L nasal cannula with O2 sat ranging between 95 up to 99%, seems to be fairly comfortable. Renal functioning is stable Lasix remains presently on hold. Patient is on Aldactone. CBC is relatively unremarkable electrolytes showed low potassium of 3.2 creatinine 1.42 BUN is 40. Progress note dated March 02, 2025. The patient is seen today in room 353. She is resting comfortably in bed. She is on 2 L of oxygen. Saturations are 95%. She is awake and alert. Not having any respiratory distress. She was admitted with a diagnosis of shortness of breath, likely multifactorial, part related to heart failure, COPD exacerbation, possible pneumonia. Her procalcitonin level on admission was 0.54. She continues on Zosyn. She is lying flat in bed, without any respiratory difficulty or distress. Laboratory data today includes a white count of 3.5, he moglobin 9.3, hematocrit 31.6, and a platelet count of 104,000. Sodium 134, potassium 4.1, chlorides 101, CO2 26, BUN 30, creatinine 1.18. Glucose is 165. Calcium 7.4. Albumin is 2.3. No recent chest x-ray to report. Objective - Vital Signs Vital signs: Vital Signs Temp 97.6 F 03/02/25 09:00 Pulse 58 L 03/02/25 11:05 Resp 16 03/02/25 11:05 BP 91/54 03/02/25 11:05 Pulse Ox 95 03/02/25 11:05 FiO2 40 02/25/25 11:13 Intake & Output 03/01/25 03/02/25 03/02/25 18:59 06:59 18:59 Intake Total 240 20 240 Output Total 750 550 Balance -510 -530 240 Weight 96.5 kg Intake: IV 20 Invasive Line 3 20 Oral 240 240 Output: Urine 750 550 Other: Voiding Method External Catheter External Catheter External Catheter # Voids 1 # Bowel Movements 2 1 1 - Exam No acute distress, oriented 3. Currently on 2 L. Saturations are 95%. HEENT examination is grossly unremarkable. Mucous membranes are moist. No oral lesions. Neck supple. Full range of motion. No adenopathy thyromegaly or neck vein distention. Cardiovascular examination reveals regular rhythm rate. S1-S2 normal. No S3 or S4. No discernible murmur noted. Lungs reveal minimal scattered rhonchi. No wheezes. No crackles. Breath sounds are equal bilaterally. Abdomen soft bowel sounds are heard. No masses or tenderness. Extremities are intact. Charcot deformity, left foot. Lymphedema of left lower extremity. No cyanosis or clubbing. Skin is without rash or lesion. Neurologic examination is brief but nonfocal. - Labs CBC & Chem 7: 03/02/25 06:56 03/02/25 06:56 Labs: Abnormal Lab Results - Last 24 Hours (Table) 03/01/25 03/01/25 03/02/25 Range/Units 16:28 20:15 06:00 WBC (4.50-10.00) 10*3/uL RBC (4.10-5.20) 10*6/uL Hgb (12.0-15.0) g/dL Hct (37.2-46.3) % MCH (27.0-32.0) pg MCHC (32.0-37.0) g/dL Plt Count (140-440) 10*3/uL Neutrophils # (1.80-7.70) 10*3/uL Sodium (137-145) mmol/L BUN (7-17) mg/dL Creatinine (0.52-1.04) mg/dL Glucose (74-99) mg/dL POC Glucose (mg/dL) 250 H 284 H 151 H (70-110) mg/dL Calcium (8.4-10.2) mg/dL AST (14-36) U/L Alkaline Phosphatase (38-126) U/L Total Protein (6.3-8.2) g/dL Albumin (3.5-5.0) g/dL 03/02/25 03/02/25 03/02/25 Range/Units 06:56 06:56 11:35 WBC 3.48 L (4.50-10.00) 10*3/uL RBC 3.58 L (4.10-5.20) 10*6/uL Hgb 9.3 L (12.0-15.0) g/dL Hct 31.6 L (37.2-46.3) % MCH 26.0 L (27.0-32.0) pg MCHC 29.4 L (32.0-37.0) g/dL Plt Count 104 L (140-440) 10*3/uL Neutrophils # 1.44 L (1.80-7.70) 10*3/uL Sodium 134 L (137-145) mmol/L BUN 30 H (7-17) mg/dL Creatinine 1.18 H (0.52-1.04) mg/dL Glucose 140 H (74-99) mg/dL POC Glucose (mg/dL) 165 H (70-110) mg/dL Calcium 7.4 L (8.4-10.2) mg/dL AST 76 H (14-36) U/L Alkaline Phosphatase 269 H (38-126) U/L Total Protein 5.3 L (6.3-8.2) g/dL Albumin 2.3 L (3.5-5.0) g/dL Assessment and Plan Assessment: Acute on chronic hypoxemic and hypercapnic respiratory failure. Possible COPD exacerbation, CHF exacerbation, and pneumonia. Acute on chronic diastolic CHF. Troponin leak. Right paratracheal necrotic lymph node/mass, with central calcification, PET scan avid. TBNA, 4R node, 02/24/2025. History of factor V deficiency, with previous DVT/PE. Type 2 diabetes mellitus. Diabetic neuropathy. Coronary artery disease, with previous stent placement. History of hypertension. History of hyperlipidemia. Hypothyroidism. Anxiety/depression. Previous history of tobacco use. Plan: Plan dated March 02, 2025. The patient is seen today in room 353. She is resting comfortably in bed. He is on 2 L of oxygen. Saturations are 95%. She was admitted with a diagnosis of acute hypoxemic respiratory failure, multifactorial, part related to heart failure, COPD exacerbation, possible pneumonia. Her procalcitonin level initially was 0.54, which is minimally elevated. She continues on Zosyn. Labs, x-rays, and all medications are reviewed. We will continue to follow make recommendations where appropriate. Prognosis is guarded. Dictation was produced using [employer] software. Please excuse any grammatical, word or spelling errors. Time with Patient: Less than 30
[2025-03-02 16:21] LABS: Glucose,Whole Blood 257 mg/dL (70-110)
--- NOTE | 2025-03-02 16:57 | P.PN ---
Subjective Progress Note Date: 03/02/25 Subjective: 03/02/2025: Patient seen at bedside no acute overnight events, patient states she feels a lot better than yesterday patient is laying in bed seems comfortable. But states she wants pain medications every 6 hours rather than every 8 hours. Pertinent positives and negatives discussed above, a complete review of systems was preformed and all the other systems were negative. Vitals Signs Reviewed. GENERAL: Patient currently on 2 L nasal cannula, 95% O2 HEENT: EOMI. No scleral icterus. CARDIOVASCULAR: S1 and S2 present. No murmurs, rubs, or gallops. PULMONARY: Chest is clear to auscultation, no wheezing , bilateral crepitation ABDOMEN: Soft, nontender, nondistended, normoactive bowel sounds. EXTREMITIES: No cyanosis, clubbing, or pedal edema. NEUROLOGICAL: Gross neurological examination did not reveal any focal deficits. SKIN: No rashes. no petechiae. Data Reviewed Today: Labs: Sodium 134, potassium 4.1, BUN 30, creatinine 1.18, glucose 140, AST 76, ALT 24, ALK phosphatase 269, , Albumin 2.3 WBC 3.48 RBC 3.58. Hemoglobin 9.3, hematocrit 31.6, platelets 104 Assessment and Plan: Acute #Bilateral multifocal pneumonia #Sepsis with fever and leukocytosis secondary to above - sepsis resolved #Acute hypoxic respiratory failure secondary to above - Continuetime Zosyn 3.375 g IVPB Q8 HR (day []) - Continue DuoNebs 4 s daily as well as every 2 hours as needed for shortness of breath or wheezing - Pulmonology on consult, appreciate further recommendations - Currently on 2 L oxygen, pt also on home oxygen #Acute on chronic heart failure with preserved EF - Lasix, creatinine >1.19 > 1.46 > 1.18 will consider oral Lasix based on kidney function -Cardiology on consult, appreciate further recommendations -Continue home Eliquis 5 mg p.o. twice daily, Lipitor 80 mg p.o. at bedtime, Entresto, and Aldactone 12.5 mg p.o. twice daily, Metoprolol 12.5 mg p.o. twice daily - Telemetry - Daily weights - Fluid restrict to 2 L daily #Hypotension: - midodrine to 10 mg p.o. 3 times daily with meals - Continue to monitor vitals #Left knee pain: - Pain management following, recommended CT knee, results above, appreciate further recommendations - Continued patient's current home medication of oxycodone Chronic #Diabetes mellitus: - Continue Lantus 20 units SQ twice daily, - Sliding scale - Continue to monitor blood sugar - monitor for hypoglycemia #Hypothyroidism: - Continue Synthroid 200 mcg p.o. daily #Mood disorder: - Continue Lexapro 10 mg p.o. daily #Chronic rectal pain: - Continued patient's home Robaxin - No bloody stools at this time DVT ppx: Eliquis 5 mg twice daily Code Status: Full code Anticipated discharge place: Pending clinical course and PT recommendations. Anticipated discharge time: Pending clinical course Objective - Vital Signs Vital signs: Vital Signs Temp 97.8 F 03/02/25 04:00 Pulse 68 03/02/25 04:00 Resp 19 03/02/25 04:00 BP 97/58 03/02/25 04:00 Pulse Ox 95 03/02/25 08:23 FiO2 40 02/25/25 11:13 Intake & Output 03/01/25 03/02/25 03/02/25 18:59 06:59 18:59 Intake Total 240 20 240 Output Total 750 550 Balance -510 -530 240 Weight 96.5 kg Intake: IV 20 Invasive Line 3 20 Oral 240 240 Output: Urine 750 550 Other: Voiding Method External Catheter External Catheter # Voids 1 # Bowel Movements 2 1 1 - Labs CBC & Chem 7: 03/02/25 06:56 03/03/25 06:53 Labs: Abnormal Lab Results - Last 24 Hours (Table) 03/01/25 03/01/25 03/01/25 Range/Units 11:39 16:28 20:15 Sodium (137-145) mmol/L BUN (7-17) mg/dL Creatinine (0.52-1.04) mg/dL Glucose (74-99) mg/dL POC Glucose (mg/dL) 185 H 250 H 284 H (70-110) mg/dL Calcium (8.4-10.2) mg/dL AST (14-36) U/L Alkaline Phosphatase (38-126) U/L Total Protein (6.3-8.2) g/dL Albumin (3.5-5.0) g/dL 03/02/25 03/02/25 Range/Units 06:00 06:56 Sodium 134 L (137-145) mmol/L BUN 30 H (7-17) mg/dL Creatinine 1.18 H (0.52-1.04) mg/dL Glucose 140 H (74-99) mg/dL POC Glucose (mg/dL) 151 H (70-110) mg/dL Calcium 7.4 L (8.4-10.2) mg/dL AST 76 H (14-36) U/L Alkaline Phosphatase 269 H (38-126) U/L Total Protein 5.3 L (6.3-8.2) g/dL Albumin 2.3 L (3.5-5.0) g/dL Assessment and Plan Assessment: Attestation Attestation/ Stripper [place] Note: Attestation to Progress Note, Participation (I saw and evaluated the patient with the Resident, and I reviewed and discussed the patient with the Resident and agree with the Resident's findings and plans as documented above., management reviewed and discussed), I agree with findings & plan, Provider Signature (JANIA HOLT, SASHA Cabrales Time with Patient: Greater than 30
[2025-03-02 20:17] LABS: Glucose,Whole Blood 308 mg/dL (70-110)
[2025-03-03 05:59] LABS: Glucose,Whole Blood 176 mg/dL (70-110)
[2025-03-03 08:13] LABS: African American GFR (CKD) 67 (>60 ml/min/1.73 sqM); Anion Gap 4 mmol/L; Blood Urea Nitrogen 20 mg/dL (7-17); Calcium 7.5 mg/dL (8.4-10.2); Carbon Dioxide 24 mmol/L (22-30); Chloride 105 mmol/L (98-107); Glucose 178 mg/dL (74-99); Non-African American GFR(CKD) 58 (>60 ml/min/1.73 sqM); Potassium 4.0 mmol/L (3.5-5.1); Sodium 133 mmol/L (137-145)
--- NOTE | 2025-03-03 08:58 | P.PN ---
Subjective Progress Note Date: 03/03/25 HISTORY OF PRESENT ILLNESS: This is a 70-year-old female with a past medical history significant for co ronary artery disease, pericardial effusion, hypertension, hyperlipidemia, GI bleed, and diabetes. Patient follows in the office with Dr. Marquez. We have been asked to see the patient in consultation for elevated troponins. Patient examined at the bedside. Patient presented to the hospital for chief complaint of shortness of breath. She also reports having a cough with sputum production. Patient was noted to be febrile upon admission. She remains febrile this morning with a temperature of 102.5. She currently denies any chest pain or pressure. DIAGNOSTICS: - EKG reveals sinus tachycardia with no signs of acute ischemia. - Chest xray worsening bilateral airspace opacities concerning for multifocal pneumonia and/or pulmonary edema. Worsening small pleural effusions. - Chest CTA: Negative for pulmonary embolism. Soft tissue mass correlating with PET scan within the pretracheal space of the mediastinum. - Venous Doppler: Negative for DVT bilaterally - Laboratory data: proBNP 1330. Troponin 0.039. 0.059. - Current home cardiac medications include Eliquis 5 mg twice a day, Aldactone 12.5 mg twice a day, Entresto 24-26 mg twice a day, midodrine 5 mg 3 times daily, Toprol tartrate 12.5 mg twice a day, Lasix 40 mg daily, Plavix 75 mg daily, Lipitor 80 mg at night, aspirin 81 mg daily. - Most recent echocardiogram obtained in January 2025 revealed ejection fraction 55 to 60%, trace pericardial effusion - Cardiac catheterization history: October 2024 with stenting of the mid proximal and ostial right RCA with 3 drug-eluting stents 02/27/2025 Patient examined this morning at the bedside. She currently denies chest pain or pressure. Reports mild SOB. Her IV lasix was increased by pulmonary medicine. She became hypotensive yesterday evening 02/28/2025 Patient examined this morning at bedside. Patient's family is present. Patient currently denies chest pain or pressure. She denies shortness of breath. She is complaining of rectal pain this morning. Patient remains on IV Lasix. Creatinine increased today to 1.46. 03/01/2025 Patient's blood pressure is borderline low. She is getting midodrine. Because of low blood pressure we will hold her Entresto half dose today. Will give her Aldactone. For some reason she was on twice daily dosing which I reduced to daily. Kidney function is stable. Appears frail and weak. 03/02/2025 Patient seen and examined. Patient is complaining that her butt is hurting her and she does not know why. She denies chest pain or chest pressure. Repeat blood work reveals WBC 3.4, hemoglobin 9.3, platelet count 104. Sodium 134, p otassium 4.1, BUN 30 creatinine 1.18. A AST 76. Lasix has been on hold 02/28 due to worsening creatinine. 03/03/2025 Patient seen and examined. Patient states that she is feeling better today. Yesterday, blood work showed improvement in the renal function and she is to resume oral Lasix today. Patient denies chest pain, no shortness of breath. Blood pressure 101/63, heart rate in the 60s, pulse ox 98% on 2 L nasal cannula. Repeat blood work today reveals BUN 20 creatinine 0.99. PHYSICAL EXAM: VITAL SIGNS: Reviewed. GENERAL: Well-developed in no acute distress. HEENT: Head is normocephalic. Pupils are equal, round. Sclerae anicteric. No JVD or thyromegaly LUNGS: Respirations even and unlabored. Lungs clear to auscultation HEART: Regular rate and rhythm. S1 and S2 heard. Systolic murmur at the apex. ABDOMEN: Soft. Nondistended. Nontender. EXTREMITIES: No clubbing or cyanosis. Peripheral pulses intact. No lower extremity edema NEUROLOGIC: Awake and alert. Oriented x 3. ASSESSMENT: Shortness of breath Mild acute on chronic heart failure with preserved EF Bilateral pleural effusions Acute kidney injury Pneumonia Fever Elevated troponins, flat, type II OH secondary to oxygen supply and demand mismatch, no evidence of acute coronary syndrome Right peritracheal necrotic lymph node/mass with central calcification, status post biopsy Acute hypoxic respiratory failure Coronary artery disease with previous stenting Hypertension Hyperlipidemia History of GI bleeding History of factor V [place] with history of DVT and PE Diabetes Pancytopenia PLAN: An acute coronary event has been ruled out No need to repeat echocardiogram as this was performed in January 2025 Resume Lasix 20 mg daily Continue to monitor blood pressure Discontinue aspirin. Continue Eliquis and Plavix Continue additional cardiac medications including Lipitor, metoprolol, midodrine, Entresto, and Aldactone Patient is cleared for discharge from a cardiology perspective. Patient will follow-up with Dr. Marquez in 1 to 2 weeks. Nurse practitioner note has been reviewed, I agree with documented findings and plan of care. Patient was seen and examined. Objective - Vital Signs Vital signs: Vital Signs Temp 98.1 F 03/03/25 04:00 Pulse 62 03/03/25 04:00 Resp 17 03/03/25 04:00 BP 101/63 03/03/25 04:00 Pulse Ox 98 03/03/25 07:51 FiO2 40 02/25/25 11:13 Intake & Output 03/02/25 03/03/25 03/03/25 18:59 06:59 18:59 Intake Total 960 Output Total 300 Balance 960 -300 Weight 97.5 kg Intake: Oral 960 Output: Urine 300 Other: Voiding Method External Catheter External Catheter # Voids 1 # Bowel Movements 4 - Labs CBC & Chem 7: 03/02/25 06:56 03/03/25 06:53 Labs: Abnormal Lab Results - Last 24 Hours (Table) 03/02/25 03/02/25 03/02/25 Range/Units 06:56 06:56 11:35 WBC 3.48 L (4.50-10.00) 10*3/uL RBC 3.58 L (4.10-5.20) 10*6/uL Hgb 9.3 L (12.0-15.0) g/dL Hct 31.6 L (37.2-46.3) % MCH 26.0 L (27.0-32.0) pg MCHC 29.4 L (32.0-37.0) g/dL Plt Count 104 L (140-440) 10*3/uL Neutrophils # 1.44 L (1.80-7.70) 10*3/uL Sodium 134 L (137-145) mmol/L BUN 30 H (7-17) mg/dL Creatinine 1.18 H (0.52-1.04) mg/dL Glucose 140 H (74-99) mg/dL POC Glucose (mg/dL) 165 H (70-110) mg/dL Calcium 7.4 L (8.4-10.2) mg/dL AST 76 H (14-36) U/L Alkaline Phosphatase 269 H (38-126) U/L Total Protein 5.3 L (6.3-8.2) g/dL Albumin 2.3 L (3.5-5.0) g/dL 03/02/25 03/02/25 03/03/25 Range/Units 16:20 20:15 05:58 WBC (4.50-10.00) 10*3/uL RBC (4.10-5.20) 10*6/uL Hgb (12.0-15.0) g/dL Hct (37.2-46.3) % MCH (27.0-32.0) pg MCHC (32.0-37.0) g/dL Plt Count (140-440) 10*3/uL Neutrophils # (1.80-7.70) 10*3/uL Sodium (137-145) mmol/L BUN (7-17) mg/dL Creatinine (0.52-1.04) mg/dL Glucose (74-99) mg/dL POC Glucose (mg/dL) 257 H 308 H 176 H (70-110) mg/dL Calcium (8.4-10.2) mg/dL AST (14-36) U/L Alkaline Phosphatase (38-126) U/L Total Protein (6.3-8.2) g/dL Albumin (3.5-5.0) g/dL Microbiology - Last 24 Hours (Table) 02/25/25 05:03 Blood Culture - Final Blood
[2025-03-03] MEDS: FUROSEMIDE 20 MG TAB PO SCH (09:43)
[2025-03-03 10:45] VITALS: RESP 18; TEMP 97.4
[2025-03-03 11:02] LABS: Glucose,Whole Blood 253 mg/dL (70-110)
[2025-03-03] MEDS ORDERED: ZINC OXIDE PASTE (Z-GUARD) 1 APPLIC TOPICAL PRN (11:24)
--- NOTE | 2025-03-03 12:18 | P.PN ---
Subjective Progress Note Date: 03/03/25 Principal diagnosis: Pneumonia. This is a pleasant 70-year-old female patient with a history of hyperlipidemia, hypothyroidism, hypertension, DVT/PE anticoagulated with Eliquis however this had been stopped approximately 1 month ago. She was also recently found to have a right paratracheal necrotic lymph node/mass with central calcification that was PET avid. She was brought in electively yesterday for a transbronchial needle aspirate of station 4R. She tolerated the procedure well and was discharged to home. Approximately 4:30 this morning she woke up with acute shortness of breath and was brought to the emergency room by EMS. Chest x-ray revealed worsening bilateral airspace opacities concerning for multifocal pneumonia and/or pulmonary edema with worsening small pleural effusions. She was placed on BiPAP 16/7 and 50% FiO2. Arterial blood gases revealed a PO2 of 87, PCO2 of 61 and a pH of 7.32. White count 4.3. Hemoglobin 10.2. Platelets 107. INR 1.0. Sodium 139. Potassium 5.1. Bicarb 28. BUN 13. Creatinine 0.73. Glucose 209. Troponin 0.039, 0.059. Pro BNP 1330. She received ceftriaxone. She is seen today in consultation in the emergency department. She is currently resting on the stretcher. Awake and alert. Her daughter is at the bedside providing most of the information. She is maintaining O2 saturations in the mid 90s. She is afebrile. Hemodynamically stable. Slightly tachypneic. Patient was seen today on 02/26/2025, she seems to be doing much better today, breathing a lot easier. Patient is definitely more awake, does not seem to be in any distress, down to 3 L nasal cannula and O2 saturation 95%. She had a low-grade temp of 99.7 last night. Today's temp is 98.9. WBC count is 3.37 hemoglobin is 9.5 electrolytes are normal bicarb is 31 BUN is 23 creatinine 0.92. Chest x-ray this morning is pending. Again clinically I have noted that the patient is much better today compared to her initial presentation to the ER yesterday. Patient was seen today on 02/27/2025, patient is having more shortness of breath today, chest x-ray is showing worsening interstitial edema and pleural effusions hence her Lasix was increased today. Patient has been on along on Lasix 40 mg twice daily and on Aldactone 12.5 mg twice daily. Patient is on 3 L nasal cannula, O2 sats is 95%, blood pressure is 94/57 mean of 69. Patient is leukopenic with WBC count of 2.7 hemoglobin of 10.2, basic metabolic profile was noted, potassium is 3.4 BUN is 33 creatinine 1.19. Patient was seen today on 02/28/2025, patient is doing a bit better today from the pulmonary perspective, less shortness of breath, no cough no wheezing, she is complaining of sore bottom/chronically. Patient is now off Lasix because she had worsening renal status, chest x-ray did show improvement however she still has some mild pulmonary vascular congestion but no evidence of overt heart failure. Will continue to hold the Lasix for now, but most likely has to be restarted again in the next 24 hours if her renal functioning improves and if her chest x-ray shows worsening heart failure. For the time being it is reasonable to keep Lasix on hold she is receiving Aldactone. WBC count today is 2.8 hemoglobin 10.3 electrolytes are normal BUN is 42 creatinine 1.46, baseline creatinine on admission was 0.73. Again we will continue to hold Lasix for now. And will continue to monitor her renal status. At the same time if the patient develops worsening heart failure she needs to go back on more diuretics. Patient was seen today on 03/01/2025, continues to do fairly well, not in distress, on 3 L nasal cannula with O2 sat ranging between 95 up to 99%, seems to be fairly comfortable. Renal functioning is stable Lasix remains presently on hold. Patient is on Aldactone. CBC is relatively unremarkable electrolytes showed low potassium of 3.2 creatinine 1.42 BUN is 40. Progress note dated March 02, 2025. The patient is seen today in room 353. She is resting comfortably in bed. She is on 2 L of oxygen. Saturations are 95%. She is awake and alert. Not having any respiratory distress. She was admitted with a diagnosis of shortness of breath, likely multifactorial, part related to heart failure, COPD exacerbation, possible pneumonia. Her procalcitonin level on admission was 0.54. She continues on Zosyn. She is lying flat in bed, without any respiratory difficulty or distress. Laboratory data today includes a white count of 3.5, he moglobin 9.3, hematocrit 31.6, and a platelet count of 104,000. Sodium 134, potassium 4.1, chlorides 101, CO2 26, BUN 30, creatinine 1.18. Glucose is 165. Calcium 7.4. Albumin is 2.3. No recent chest x-ray to report. Progress note dated March 03, 2025. 70-year-old female seen again in room 353. She is sitting in the chair next to the hospital bed. She is awake and alert. No acute distress. Certainly no respiratory distress. She is not receiving any IV fluids. She is on nasal O2 2 L. She is receiving Zosyn. She states that she is feeling better today than she did yesterday. Current laboratory data includes a sodium 133, potassium 4, chlorides 105, CO2 24, BUN 20, creatinine 0.99. Glucose is 253. Calcium 7.5. Blood cultures are negative. Objective - Vital Signs Vital signs: Vital Signs Temp 97.4 F L 03/03/25 08:00 Pulse 62 03/03/25 08:00 Resp 18 03/03/25 08:00 BP 82/44 03/03/25 08:00 Pulse Ox 96 03/03/25 08:00 FiO2 40 02/25/25 11:13 Intake & Output 03/02/25 03/03/25 03/03/25 18:59 06:59 18:59 Intake Total 960 120 Output Total 300 Balance 960 -300 120 Weight 97.5 kg Intake: Oral 960 120 Output: Urine 300 Other: Voiding Method External Catheter External Catheter External Catheter # Voids 1 1 # Bowel Movements 4 - Exam No acute distress, oriented 3. Currently on 2 L. Saturations are 96%. HEENT examination is grossly unremarkable. Mucous membranes are moist. No oral lesions. Neck supple. Full range of motion. No adenopathy thyromegaly or neck vein dis tention. Cardiovascular examination reveals regular rhythm rate. S1-S2 normal. No S3 or S4. No discernible murmur noted. Lungs reveal minimal scattered rhonchi. No wheezes. No crackles. Breath sounds are equal bilaterally. Abdomen soft bowel sounds are heard. No masses or tenderness. Extremities are intact. Charcot deformity, left foot. Lymphedema of left lower extremity. No cyanosis or clubbing. Skin is without rash or lesion. Neurologic examination is brief but nonfocal. - Labs CBC & Chem 7: 03/02/25 06:56 03/03/25 06:53 Labs: Abnormal Lab Results - Last 24 Hours (Table) 03/02/25 03/02/25 03/03/25 Range/Units 16:20 20:15 05:58 Sodium (137-145) mmol/L BUN (7-17) mg/dL Glucose (74-99) mg/dL POC Glucose (mg/dL) 257 H 308 H 176 H (70-110) mg/dL Calcium (8.4-10.2) mg/dL 03/03/25 03/03/25 Range/Units 06:53 11:00 Sodium 133 L (137-145) mmol/L BUN 20 H (7-17) mg/dL Glucose 178 H (74-99) mg/dL POC Glucose (mg/dL) 253 H (70-110) mg/dL Calcium 7.5 L (8.4-10.2) mg/dL Microbiology - Last 24 Hours (Table) 02/25/25 05:03 Blood Culture - Final Blood Assessment and Plan Assessment: Acute on chronic hypoxemic and hypercapnic respiratory failure. Possible COPD exacerbation, CHF exacerbation, and pneumonia. Acute on chronic diastolic CHF. Troponin leak. Right paratracheal necrotic lymph node/mass, with central calcification, PET scan avid. TBNA, 4R node, 02/24/2025. History of factor V deficiency, with previous DVT/PE. Type 2 diabetes mellitus. Diabetic neuropathy. Coronary artery disease, with previous stent placement. History of hypertension. History of hyperlipidemia. Hypothyroidism. Anxiety/depression. Previous history of tobacco use. Plan: Plan dated March 02, 2025. The patient is seen today in room 353. She is resting comfortably in bed. He is on 2 L of oxygen. Saturations are 95%. She was admitted with a diagnosis of acute hypoxemic respiratory failure, multifactorial, part related to heart failure, COPD exacerbation, possible pneumonia. Her procalcitonin level initially was 0.54, which is minimally elevated. She continues on Zosyn. Labs, x-rays, and all medications are reviewed. We will continue to follow make recommendations where appropriate. Prognosis is guarded. Dictation was produced using DEQation software. Please excuse any grammatical, word or spelling errors. Plan dated March 03, 2025. The patient is again seen in room 353. She is sitting in a chair next to the hospital bed. She is awake and alert. No respiratory distress. She denies any shortness of breath, cough, wheezing, chest tightness, or phlegm production. She states that she does feel better. Labs, x-rays, and all medications are reviewed. She continues on Zosyn. We will continue to follow the patient, and make recommendations were appropriate. Prognosis is guarded. Dictation was produced using DEQation software. Please excuse any grammatical, word or spelling errors. Time with Patient: Less than 30
[2025-03-03 12:22] VITALS: BP 95/58; PULSE 63
--- NOTE | 2025-03-03 16:11 | P.DS ---
Providers Date of admission: 02/25/25 08:11 Expected date of discharge: 03/03/25 Attending physician: Francisco Vela Consults: 02/25/25 08:15 Consult Physician Routine Consulting Provider: Lily Hicks Consult Reason/Comments: Pneumonia. Sepsis Do you want consulting provider notified?: Yes 02/25/25 11:46 Consult Physician Routine Consulting Provider: Basil Sorenson Consult Reason/Comments: elevated troponin Do you want consulting provider notified?: Yes Primary care physician: Stated None Hospital Course: Hospital Course: Patient is a 70-year-old female with past medical history significant for hypertension, DVT/PE anticoagulated on Eliquis that was stopped about 1 month ago, CHF with preserved EF, hyperlipidemia, hypothyroidism admitted for acute shortness of breath 1 day status post elective transbronchial needle aspiration of station 4R. She had tolerated the procedure well and was discharged home when she woke up at 0430 with acute shortness of breath and was brought in by EMS. Her initial chest x-ray revealed worsening bilateral airspace opacities concerning for multifocal pneumonia and/or pulmonary edema with worsening small pleural effusions. She was placed on BiPAP and had an ABG showing pH 7.32, PO2 87, PCO2 61. Patient also met sepsis criteria and was started on sepsis protocol. She was maintained on Zosyn for 5 days. Patient's oxygenation improved and she was able to be weaned from BiPAP down to 2 L nasal cannula, which is her baseline. Cardiology and pulmonology were on consult. Her Eliquis and Plavix were restarted. Patient should follow-up outpatient with pulmonology and cardiology within 1-2 weeks and PCP in 1-2 days. Patient discharged with home health services. Patient is medically stable for discharge. Final Diagnosis: #. Acute on chronic hypoxemic respiratory failure #. Possible CHF exacerbation, pneumonia, COPD exacerbation #. Acute on chronic CHF with preserved EF #. Right paratracheal necrotic lymph node/mass with central calcification, PET scan avid with TBNA 4R node on 02/24/2025 #. Insulin-dependent diabetes mellitus #. Diabetic neuropathy #. CAD with previous stent placement #. History of factor V Leyden with previous DVT/PE #. Hypertension #. Hyperlipidemia #. Hypothyroidism #. Anxiety/depression Physical examination: Vital signs reviewed General: Nontoxic, no distress, appears stated age, well-appearing Derm: Warm, dry, intact, no cyanosis HEENT: Head exam is unremarkable. EOMI bilaterally. ACs patent. Nares patent. Cardiovascular: S1-S2 regular, no murmur, no pedal edema Lungs: CTA bilateral, no wheezes, no rhonchi, no rales, no accessory muscle use Abdominal: Soft, non-tender to palpation, bowel sounds present Extremities: Trace edema bilaterally. Symmetric movement. Neuro: Alert, oriented x 3, gross neurological examination did not reveal any focal deficits. Cranial nerves II to XII grossly intact. Psych: Appropriate affect and mood. Cooperative. Attestation I have seen and examined this patient with my resident , discussed the same with the resident/MAHI, and agree with the dictator's assessment and plan as written Dr. Momo sinclair Patient Condition at Discharge: Stable Plan - Discharge Summary Discharge Rx Participant: Yes New Discharge Prescriptions: New Furosemide [Lasix] 20 mg PO DAILY #14 tab Continue Clopidogrel [Plavix] 75 mg PO DAILY traZODone HCL [Desyrel] 100 mg PO HS Insulin Lispro [humaLOG Kwikpen] See Protocol SQ ACHS Acetaminophen Tab [Tylenol] 650 mg PO Q4H PRN PRN Reason: Pain Atorvastatin [Lipitor] 80 mg PO HS Ondansetron [Zofran] 4 mg PO Q8H PRN PRN Reason: Nausea Sennosides-Docusate Sodium [Senokot-S] 1 tab PO BID Levothyroxine Sodium 200 mcg PO DAILY@0600 Sacubitril/Valsartan [Entresto 24 mg-26 mg Tablet] 0.5 tab PO BID oxyCODONE HCL [OxyIR] 5 mg PO TID PRN #30 tab PRN Reason: Pain Escitalopram [Lexapro] 10 mg PO DAILY 30 Days #30 tablet Insulin Glargine,Hum.rec.anlog [Lantus Solostar Pen] 20 units SQ BID Metoprolol Tartrate [Lopressor] 12.5 mg PO BID@0900,2100 Spironolactone [Aldactone] 12.5 mg PO BID Insulin Lispro [humaLOG Kwikpen] 6 unit SQ AC-TID Midodrine [ProAmatine] 5 mg PO TID-W/MEALS Apixaban [Eliquis] 5 mg PO BID ALPRAZolam [Xanax] 1 mg PO TID PRN PRN Reason: Anxiety Discontinued Furosemide [Lasix] 40 mg PO DAILY #30 tablet Aspirin 81 mg PO DAILY Discharge Medication List Clopidogrel [Plavix] 75 mg PO DAILY 07/07/19 [History] traZODone HCL [Desyrel] 100 mg PO HS 07/07/19 [History] Insulin Glargine,Hum.rec.anlog [Lantus Solostar Pen] 20 units SQ BID 06/09/21 [History] Insulin Lispro [humaLOG Kwikpen] See Protocol SQ ACHS 09/21/23 [History] Acetaminophen Tab [Tylenol] 650 mg PO Q4H PRN 12/13/24 [History] Atorvastatin [Lipitor] 80 mg PO HS 12/13/24 [History] Ondansetron [Zofran] 4 mg PO Q8H PRN 12/13/24 [History] Sennosides-Docusate Sodium [Senokot-S] 1 tab PO BID 12/13/24 [History] Metoprolol Tartrate [Lopressor] 12.5 mg PO BID@0900,2100 01/03/25 [History] Levothyroxine Sodium 200 mcg PO DAILY@0600 01/16/25 [History] Sacubitril/Valsartan [Entresto 24 mg-26 mg Tablet] 0.5 tab PO BID 01/16/25 [History] Spironolactone [Aldactone] 12.5 mg PO BID 01/16/25 [History] Insulin Lispro [humaLOG Kwikpen] 6 unit SQ AC-TID 01/28/25 [History] Midodrine [ProAmatine] 5 mg PO TID-W/MEALS 01/28/25 [History] Escitalopram [Lexapro] 10 mg PO DAILY 30 Days #30 tablet 01/29/25 [Rx] oxyCODONE HCL [OxyIR] 5 mg PO TID PRN #30 tab 01/29/25 [Rx] ALPRAZolam [Xanax] 1 mg PO TID PRN 02/25/25 [History] Apixaban [Eliquis] 5 mg PO BID 02/25/25 [History] Furosemide [Lasix] 20 mg PO DAILY #14 tab 03/03/25 [Rx] Follow up Appointment(s)/Referral(s): Gene Marquez DO [STAFF PHYSICIAN] - 03/10/25 3:30 pm None,Stated [Primary Care Provider] - 1-2 days [facility] [NON-STAFF] - Cherelle Mendez MD [STAFF PHYSICIAN] - 03/05/25 1:45 pm (This is a previously scheduled appointment.) Patient Instructions/Handouts: Pneumonia (DC) Discharge/Stand Alone Forms: Who Do I Call?, Adult [facility] List, Assisted Living Facilities, Help In The Home Discharge Disposition: HOME WITH HOME HEALTH SERVICES
[2025-03-03 16:33] LABS: Glucose,Whole Blood 350 mg/dL (70-110)
== END 2025-03-03 17:45 | disposition home health service (06) | DRG 871 ==
LOC: EC 04:37 → 3SCARD 08:11
PROVIDERS: ADMIT Hospitalist; ATTEND Hospitalist
DX: A41.9 Sepsis, unspecified organism (principal); G93.41 Metabolic encephalopathy; J18.9 Pneumonia, unspecified organism; I50.33 Acute on chronic diastolic (congestive) heart failure; I21.A1 Myocardial infarction type 2; J96.21 Acute and chronic respiratory failure with hypoxia; J96.22 Acute and chronic respiratory failure with hypercapnia; E87.20 Acidosis, unspecified; D61.818 Other pancytopenia; J44.1 Chronic obstructive pulmonary disease with (acute) exacerbation; E11.41 Type 2 diabetes mellitus with diabetic mononeuropathy; I11.0 Hypertensive heart disease with heart failure; E03.9 Hypothyroidism, unspecified; F32.A Depression, unspecified; J44.0 Chronic obstructive pulmonary disease with (acute) lower respiratory infection; D68.51 Activated protein C resistance; N17.9 Acute kidney failure, unspecified; E11.51 Type 2 diabetes mellitus with diabetic peripheral angiopathy without gangrene; E11.649 Type 2 diabetes mellitus with hypoglycemia without coma; Z79.4 Long term (current) use of insulin; E11.42 Type 2 diabetes mellitus with diabetic polyneuropathy; R91.8 Other nonspecific abnormal finding of lung field; E78.5 Hyperlipidemia, unspecified; G89.29 Other chronic pain; M54.40 Lumbago with sciatica, unspecified side; M25.562 Pain in left knee; K58.9 Irritable bowel syndrome, unspecified; G57.93 Unspecified mononeuropathy of bilateral lower limbs; F41.0 Panic disorder [episodic paroxysmal anxiety]; M19.90 Unspecified osteoarthritis, unspecified site; I25.10 Atherosclerotic heart disease of native coronary artery without angina pectoris; Z86.718 Personal history of other venous thrombosis and embolism; Z87.891 Personal history of nicotine dependence; Z91.041 Radiographic dye allergy status; R59.0 Localized enlarged lymph nodes; E87.6 Hypokalemia; I25.2 Old myocardial infarction; K62.89 Other specified diseases of anus and rectum; Z79.01 Long term (current) use of anticoagulants; Z79.02 Long term (current) use of antithrombotics/antiplatelets; Z79.890 Hormone replacement therapy; Z79.82 Long term (current) use of aspirin; Z85.828 Personal history of other malignant neoplasm of skin; Z86.711 Personal history of pulmonary embolism; Z87.440 Personal history of urinary (tract) infections; Z79.899 Other long term (current) drug therapy; Z90.710 Acquired absence of both cervix and uterus; Z91.81 History of falling; Z95.5 Presence of coronary angioplasty implant and graft; Z98.42 Cataract extraction status, left eye; Z98.41 Cataract extraction status, right eye; Z90.49 Acquired absence of other specified parts of digestive tract
CPT/HCPCS: 36415; 36600; 71045; 71275; 80048; 80053; 81003; 82805; 83605; 83880; 84145; 84484; 85025; 85379; 85610; 85730; 87040; 87636; 93005; 93970; 94640; 94660; 94760; 96361; 96365; 96366; 96367; 96368; 96375; 99285

== ENCOUNTER → 2025-03-05 | Outpatient (CLI) | payer MEDICARE, BC, OTHER ==
[2025-03-11 03:26] LABS: Histoplasma Abs by Mycelia, CF <1:8 (<1:8)
== END | disposition home or self-care (01) ==
LOC: LABWHC1 14:40
PROVIDERS: ATTEND Internal Medicine
DX: D38.1 Neoplasm of uncertain behavior of trachea, bronchus and lung (principal); R91.8 Other nonspecific abnormal finding of lung field
CPT/HCPCS: 36415; 86698